=== PATIENT | male | born 1960 | race Caucasian/White ===

== ENCOUNTER 2020-01-11 14:50 | Inpatient (IN) | payer MEDICARE ==
[~2020-01-11] VITALS: Ht 175.3 cm; Wt 64.0 kg
[~2020-01-11 14:50] MED LIST: OXYC-12 PO
[2020-01-11] MEDS ORDERED: MILK OF MAGNESIA 400 MG/5 ML 30 ML UDC PO PRN (15:00)
[2020-01-11] MEDS ORDERED: ANTACID SUSP 30 ML UDC (MYLANTA) PO PRN (15:00)
[2020-01-11] MEDS ORDERED: ONDANSETRON 4 MG/2 ML (SDV) Z0FRAN IV PRN (15:00)
[2020-01-11] MEDS ORDERED: BENZONATATE 100 MG (TESSALON) CAPSULE PO PRN (15:00)
[2020-01-11] MEDS ORDERED: CATHETER FLUSH 10 ML SYR IV PRN (16:00)
[2020-01-11 16:15] VITALS: BP 120/78
[2020-01-11] MEDS: NS IV 1000 ML 1,000 ML IV SCH (16:23)
[2020-01-11] MEDS: AZITHROMYCIN INJECTION 500 MG in NS (IVPB) 250 ML IV SCH (16:24)
[2020-01-11] MEDS: cefTRIAXone FOR IV USE 1,000 MG in WATER (STERILE) FOR INJECTION 10 ML IV SCH (16:24)
[2020-01-11] MEDS: inSUlin ASPART (NovoLOG) 1 UNIT/0.01 ML (CHARGE PER UNIT) SC SCH ×2 (16:54→21:11)
[2020-01-11 19:00] VITALS: BP 106/71
[2020-01-11 20:00] VITALS: BP 108/68
[2020-01-11 21:00] VITALS: BP 112/68
[2020-01-11] MEDS: MELATONIN 3 MG TABLET PO PRN (21:11)
[2020-01-11 22:00] VITALS: BP 107/67
[2020-01-11 23:00] VITALS: BP 108/72
[2020-01-12] VITALS (12 sets, daily range): BP systolic 100–121; BP diastolic 65–80
[2020-01-12] MEDS: ACETAMINOPHEN 325 MG TABLET PO PRN (00:03)
[2020-01-12] MEDS: NS IV 1000 ML 1,000 ML IV SCH ×2 (02:20→10:41)
[2020-01-12 03:14] LABS: BASOPHILS % (AUTO) 0 % (0-10); EOSINOPHILS % (AUTO) 0 % (0-10); HEMATOCRIT 29 % (40-54); HEMOGLOBIN 9.4 G/DL (13.3-17.7); LYMPHOCYTES % (AUTO) 7 % (12-44); MEAN CORPUSCULAR HEMOGLOBIN 31 PG (25-34); MEAN CORPUSCULAR HGB CONC 32 G/DL (32-36); MEAN CORPUSCULAR VOLUME 96 FL (80-99); MEAN PLATELET VOLUME 9.5 FL (7.4-10.4); MONOCYTES # (AUTO) 0.5 X 10^3 (0.0-1.0); MONOCYTES % (AUTO) 4 % (0-12); NEUTROPHILS % (AUTO) 89 % (42-75); PLATELET COUNT 496 10^3/uL (130-400); RED CELL DISTRIBUTION WIDTH 14.9 % (10.0-14.5); WHITE BLOOD COUNT 14.6 10^3/uL (4.3-11.0)
[2020-01-12 03:23] LABS: ALBUMIN 1.6 GM/DL (3.2-4.5); CHLORIDE 106 MMOL/L (98-107); POTASSIUM 3.5 MMOL/L (3.6-5.0); SODIUM 141 MMOL/L (135-145)
[2020-01-12 03:24] LABS: CALCIUM 7.4 MG/DL (8.5-10.1)
[2020-01-12 03:25] LABS: GLUCOSE 91 MG/DL (70-105); TOTAL PROTEIN 5.2 GM/DL (6.4-8.2)
[2020-01-12 03:26] LABS: CARBON DIOXIDE 22 MMOL/L (21-32)
[2020-01-12 03:27] LABS: BILIRUBIN,TOTAL 0.2 MG/DL (0.1-1.0)
[2020-01-12 03:29] LABS: ALKALINE PHOSPHATASE 73 U/L (40-136); CREATININE SERUM 0.46 MG/DL (0.60-1.30); GFR ESTIMATED > 60
[2020-01-12 03:30] LABS: BUN/CREATININE RATIO 46
[2020-01-12 03:32] LABS: ALANINE AMINOTRANSFERASE 17 U/L (0-55)
[2020-01-12 04:01] LABS: BAND NEUTROPHILS 5 %; LYMPHOCYTES % (MANUAL) 9 %; MONOCYTES % (MANUAL) 5 %; NEUTROPHILS % (MANUAL) 78 %; PROMYELOCYTES % 3 %
[2020-01-12 04:02] LABS: BURR CELLS SLIGHT; HYPOCHROMASIA MODERATE; PLATELET CLUMPS OCCASIONAL
[2020-01-12] MEDS: inSUlin ASPART (NovoLOG) 1 UNIT/0.01 ML (CHARGE PER UNIT) SC SCH ×4 (05:01→20:31)
[2020-01-12] MEDS ORDERED: LACTATED RINGERS 1,000 ML IV SCH ×2 (05:15)
[2020-01-12] MEDS ORDERED: ENOXAPARIN 40 MG/0.4 ML (LOVENOX) SYR SC SCH (05:15)
--- NOTE | 2020-01-12 05:21 | Pulmonary Consultation ---
History of Present Illness History of Present Illness Date Seen by Provider: Jan 12, 2020 Time Seen by Provider: 05:20 Date of Admission History of Present Illness 59yo [place] [facility] [place] to [place] distress. He was [place] with [place]NA [place] [facility] [place] CXR since admission here. He was placed on rocephin and azithromycin upon admission. I am consulted for pulmonary/ICU mangement. Allergies and Home Medications Allergies Coded Allergies: No Known Drug Allergies (Verified , 07/11/09) Home Medications Multivitamin 1 Each Tablet, 1 EACH PO DAILY, (Reported) Naproxen Sodium 220 Mg Capsule, 440 MG PO Q8H PRN for PAIN-MILD (1-4), (Reported) Past Ulyscwt-Hvehac-Nsxvjp Hx Patient Social History Alcohol Use: Occasionally Uses Number of Drinks Today: 0 Alcohol Beverage of Choice: Beer Recreational Drug Use: No Smoking Status: Current Everyday Smoker Type Used: Cigarettes Recent Foreign Travel: No Contact w/Someone Who Travel: No Recent Infectious Disease Expo: No Recent Hopitalizations: No Immunizations Up To Date PED Vaccines UTD: Yes Seasonal Allergies Seasonal Allergies: No Past Medical History Surgeries: No Respiratory: No Currently Using CPAP: No Cardiac: No Neurological: Yes Sexually Transmitted Disease: No Genitourinary: No Gastrointestinal: No Musculoskeletal: No Endocrine: No HEENT: No Loss of Vision: Denies Hearing Impairment: Denies Cancer: No Psychosocial: No Integumentary: No Blood Disorders: No Adverse Reaction/Blood Tranf: No Review of Systems Time Seen by Provider: 05:49 Sepsis Event Evaluation Height, Weight, BMI Height: '" Weight: lbs. oz. kg; 16.01 BMI Method: Exam Exam Vital Signs Date Time Temp Pulse Resp B/P (MAP) Pulse Ox O2 Delivery O2 Flow Rate FiO2 01/12/20 04:00 Nasal Cannula 8.00 01/12/20 00:00 Nasal Cannula 8.00 01/11/20 23:00 98 24 108/72 (84) 94 Nasal Cannula 8.00 01/11/20 22:00 105 27 107/67 (80) 92 Nasal Cannula 8.00 01/11/20 21:00 108 28 112/68 (83) 91 Nasal Cannula 8.00 01/11/20 20:00 111 28 108/68 (81) 95 Nasal Cannula 8.00 01/11/20 20:00 Nasal Cannula 8.00 01/11/20 19:00 110 26 106/71 (83) 93 Nasal Cannula 8.00 01/11/20 19:00 110 01/11/20 17:04 111 01/11/20 16:15 105 45 120/78 (92) 88 High Flow N/C 8.00 01/11/20 15:48 36.1 01/11/20 15:48 High Flow N/C 8.00 I & O 01/12/20 07:00 Intake Total 3550 ml Output Total 200 ml Balance 3350 ml Height & Weight Height: '" Weight: lbs. oz. kg; 16.01 BMI Method: General Appearance: Anxious, Mild Distress HEENT: PERRL/EOMI, TMs Normal, Normal ENT Inspection Neck: Full Range of Motion, Non Tender, Supple Respiratory: Chest Non Tender, Crackles, Decreased Breath Sounds Cardiovascular: Regular Rate, Rhythm, No Edema, No Gallop Capillary Refill: Less Than 3 Seconds Gastrointestinal: normal bowel sounds, non tender, soft Extremity: Normal Capillary Refill, Normal Inspection, No Pedal Edema Neurologic/Psychiatric: Alert, Oriented x3 Skin: Normal Color, Warm/Dry Lymphatic: No Adenopathy Results Lab Laboratory Tests 01/12/20 03:05 Assessment/Plan Assessment/Plan PNA -- possible post obstructive pneumonia r/o cancer -Continue abx -Check cultures -Check PCT, ferretin , DDimer -COVID is pending -Check MRSA, and influenza -Check RVP -CXR reviewed - Once COVID is negative check CT of chest to r/o mass. Hypokalemia -replace Dehydration -Give 2 liters of IVF LR anemia -monitor -Start protonix Tobacco use with probable COPD JENI DENISE DO Jan 12, 2020 05:21
--- NOTE | 2020-01-12 06:14 | Diagnostic Imaging Report ---
INDICATION: Respiratory distress COMPARISON: None FINDINGS: Single view of the chest demonstrates hyperinflation compatible with COPD. There is a suspicious opacity in the left upper lobe with concern for a mass. Infiltrates are seen in the right mid lung and right base. There is no pneumothorax. Heart is prominent. Osseous structures are stable. IMPRESSION: 1. Questionable mass left upper lobe. CT recommended. 2. Infiltrates right middle lobe and right base concerning for pneumonia. Follow-up recommended. Dictated by: Dictated on workstation # [id number]
[2020-01-12] MEDS ORDERED: ALPRAZolam 0.5 MG (XANAX) TAB PO PRN (06:15)
[2020-01-12] MEDS: POTASSIUM CL 10MEQ/50ML IVPB 50 ML IV SCH ×5 (07:45→16:16)
[2020-01-12] MEDS: PANTOPRAZOLE 40 MG (PROTONIX) VIAL IV SCH (07:52)
[2020-01-12] MEDS: LACTATED RINGERS 1,000 ML IV SCH ×4 (07:53→23:43)
[2020-01-12] MEDS ORDERED: ALBUTEROL/IPRATROP (COMBIVENT RESPIMAT) 4 GM INHALER IH PRN (09:15)
[2020-01-12 09:29] LABS: FIBRIN DEGRADATION PRODUCTS 2.69 UG/ML (0.00-0.49); INR 1.1 (0.8-1.4); PROTHROMBIN TIME PATIENT 14.3 SEC (12.2-14.7)
[2020-01-12 10:21] LABS: CLARITY,URINE CLEAR; COLOR,URINE YELLOW; GLUCOSE, URINE (UA) NEGATIVE (NEGATIVE); KETONES,URINE 2+ (NEGATIVE); LEUKOCYTE ESTERASE ,URINE NEGATIVE (NEGATIVE); NITRITE,URINE NEGATIVE (NEGATIVE); PROTEIN,URINE TRACE (NEGATIVE)
[2020-01-12 10:35] LABS: BACTERIA,URINE TRACE /HPF
[2020-01-12 10:36] LABS: AMPHETAMINE SCREEN, URINE NEGATIVE (NEGATIVE); BARBITURATE SCREEN URINE NEGATIVE (NEGATIVE); BENZODIAZEPINES SCREEN URINE NEGATIVE (NEGATIVE); CANNABINOID SCREEN, URINE NEGATIVE (NEGATIVE); COCAINE SCREEN URINE NEGATIVE (NEGATIVE); METHADONE STAT NEGATIVE (NEGATIVE); METHAMPHETAMINE SCREEN URINE S NEGATIVE (NEGATIVE); OPIATE SCREEN URINE NEGATIVE (NEGATIVE); OXYCODONE STAT NEGATIVE (NEGATIVE); PROPOXYPHENE STAT NEGATIVE (NEGATIVE); TRICYCLIC ANTIDEPRESSANTS SCRE NEGATIVE (NEGATIVE)
--- NOTE | 2020-01-12 11:20 | NUR ---
Pastoral care visit.
[2020-01-12] MEDS ORDERED: MULT-1136 PO (13:28)
[2020-01-12] MEDS ORDERED: NAPR220C11 PO (13:28)
--- NOTE | 2020-01-12 13:29 | NUR ---
SPOKE WITH THE PT TO COMPLETE THE MED REC PT DENIES TAKING ANY PRESCRIPTION MEDICATIONS I DID UPDATE HIS PREFERRED PHARMACY OTC MEDS: [facility]
[2020-01-12] MEDS ORDERED: HOLD METFORMIN - RECEIVED CONTRAST 20 ML VIAL IV SCH (14:15)
[2020-01-12] MEDS ORDERED: NS 100 ML (IVPB) BAG IV ONE (14:15)
[2020-01-12] MEDS ORDERED: IOHEXOL 350 MG/ML 100 ML (OMNIPAQUE 350) VIAL IV ONE (14:15)
[2020-01-12] MEDS: morphine INJ 4 MG/ML 1 ML (VIAL/SYRINGE) IVP PRN ×2 (14:55→20:36)
[2020-01-12] MEDS: cefTRIAXone FOR IV USE 1,000 MG in WATER (STERILE) FOR INJECTION 10 ML IV SCH (14:57)
[2020-01-12] MEDS: AZITHROMYCIN INJECTION 500 MG in NS (IVPB) 250 ML IV SCH (14:57)
--- NOTE | 2020-01-12 15:09 | NUR ---
PT DOES NOT WANT TO GO TO CT TODAY, REPORTS HE IS "TOO TIRED". THIS RN INFORMED HIM HE WOULD BE TRANSPORTED TO CT ON HIS BED, HOWEVER HE STILL DID NOT WANT TEST DONE, STATES "MAYBE TOMORROW." PHYSICAL THERAPY CAME INTO ROOM DURING THIS TIME, PT ALSO TOLD P.T. HE WAS "TOO TIRED" TO PARTAKE IN THERAPY TODAY. DR DUONG AND DR DENISE BOTH INFORMED. THIS RN OFFERED TO CLEAN PT UP AND REPOSITION HIM, PT DECLINED OFFER STATING HE "JUST WANTS TO RELAX RIGHT NOW." PT ADVISED TO LET STAFF KNOW WHEN HE WANTS REPOSITIONED OR NEEDS ANYTHING. WILL REASSESS PT NEEDS FREQUENTLY.
--- NOTE | 2020-01-12 15:12 | Physical Therapy Progress Note ---
Therapy Progress Note Orders received for therapy. Pt. in bed and adamantly refuses stating "I'm sore all over, I'm not doing anything." We will check patient status 01/13/20. IBAN HAIDER PT Jan 12, 2020 15:12
--- NOTE | 2020-01-12 15:19 | NUR ---
Received dietary consult for MST score. Note pt is under suspicion of COVID-19. Will monitor intake and attempt to reassess on 01/13. Doug Nunez MS, RD, LD [phone]
--- NOTE | 2020-01-12 16:00 | NUR ---
THIS RN SPOKE W/ DR DENISE, NEW ORDERS RECEIVED TO TRANSFER TO 4TH FLOOR IF OK W/ DR DUONG.
[2020-01-12 16:16] LABS: BILIRUBIN,URINE 1+ (NEGATIVE)
--- NOTE | 2020-01-12 16:21 | NUR ---
OK FOR PT TO TRANSFER TO [address] PER DR DUONG.
--- NOTE | 2020-01-12 18:02 | History & Physical-Hospitalist ---
History of Present Illness HPI/Chief Complaint Moshe Soto is a 59-year-old male with past medical history of tobacco abuse who presented with fever and shortness of breath. He also reports having a cough. He denies any chest pain. He denies any nausea, vomiting, or abdominal pain. He denies any diarrhea. He denies any dysuria. He has no other complaints or concerns. He denies any recent travel. He denies any sick contacts. Source: patient Exam Limitations: no limitations Date Seen 01/12/20 Time Seen by a Provider: 11:20 Attending Physician Lucy Pal MD PCP No,Local Physician Referring Physician Date of Admission Jan 11, 2020 at 15:52 Home Medications & Allergies Home Medications Reviewed patient Home Medication Reconciliation performed by pharmacy medication reconciliations field service poultry technician and/or nursing. Patients Allergies have been reviewed. Allergies Allergies Coded Allergies No Known Drug Allergies (Hgyelfzg23/25/09) Past Ljxgcyr-Nywzxb-Wnveun Hx Past Med/Social Hx: Reviewed Nursing Past Med/Soc Hx Patient Social History Alcohol Use: Occasionally Uses Number of Drinks Today: 0 Alcohol Beverage of Choice: Beer Recreational Drug Use: No Smoking Status: Current Everyday Smoker Type Used: Cigarettes Physical Abuse Screen: No Sexual Abuse: No Recent Foreign Travel: No Contact w/other who traveled: No Recent Hopitalizations: No Recent Infectious Disease Expo: No Immunizations Up To Date Pediatric: Yes Seasonal Allergies Seasonal Allergies: No Past Medical History Currently Using CPAP: No Sexually Transmitted Disease: No Loss of Vision: Denies Hearing Impairment: Denies History of Blood Disorders: No Adverse Reaction to Blood Morrell: No Review of Systems Constitutional: fever, malaise EENTM: no symptoms reported Respiratory: cough, short of breath Cardiovascular: no symptoms reported Gastrointestinal: no symptoms reported Genitourinary: no symptoms reported Musculoskeletal: no symptoms reported Skin: no symptoms reported Psychiatric/Neurological: No Symptoms Reported Physical Exam Physical Exam Vital Signs Vital Signs - First Documented 01/11/20 01/11/20 15:48 16:15 Temp 36.1 Pulse 105 Resp 45 B/P (MAP) 120/78 (92) Pulse Ox 88 O2 Delivery High Flow N/C O2 Flow Rate 8.00 Capillary Refill : Less Than 3 Seconds Height, Weight, BMI Height: '" Weight: lbs. oz. kg; 16.01 BMI Method: General Appearance: No Apparent Distress, Cachetic HEENT: PERRL/EOMI, Pharynx Normal Neck: Normal Inspection, Supple Respiratory: Crackles, Decreased Breath Sounds, Respiratory Distress (tachypnea) Cardiovascular: No Murmur, Tachycardia (regular rhythm) Gastrointestinal: Normal Bowel Sounds, Non Tender, Soft Extremity: Normal Inspection, Non Tender, No Pedal Edema Neurologic/Psychiatric: Alert, Oriented x3, No Motor/Sensory Deficits, Normal Mood/Affect Skin: Normal Color, Warm/Dry Results Results/Procedures Labs Laboratory Tests 01/12/20 03:05 Patient resulted labs reviewed. Imaging: Reviewed Imaging Report Assessment/Plan Admission Diagnosis severe sepsis due to pneumonia Admission Status: Inpatient Order (span 2 midnights) Reason for Inpatient Admission: severe sepsis due to pneumonia Assessment and Plan Severe sepsis Pneumonia Acute respiratory failure with hypoxia possible left upper lobe mass likely COPD Tobacco abuse transferred from [facility] Chest x-ray with right middle and lower lobe pneumonia, possible left upper lobe mass Procalcitonin elevated at 1.36 WBC elevated at 14.6 afebrile since arrival Blood cultures drawn, no growth COVID testing negative started on ceftriaxone and azithromycin CT chest to evaluate possible left upper lobe mass Pulmonology consulted, appreciate assistance MAT protocol Nicotine patch ordered DVT prophylaxis: Lovenox Diagnosis/Problems Diagnosis/Problems (1) Severe sepsis Status: Acute (2) Pneumonia Status: Acute (3) COPD (chronic obstructive pulmonary disease) Status: Chronic (4) Tobacco abuse Status: Chronic (5) Acute respiratory failure with hypoxia Status: Acute (6) Lung mass Status: Acute Clinical Quality Measures DVT/VTE Risk/Contraindication: Risk Factor Score Per Nursin RFS Level Per Nursing on Admit: 4+=Very High CLAU DUONG MD Jan 12, 2020 18:02
--- NOTE | 2020-01-12 18:13 | NUR ---
PT TRANSFERRED TO ROOM 421 VIA BED W/ STAFF/PERSONAL BELONGINGS. REPORT GIVEN TO YUMIKO MADRIGAL, NO QUESTIONS/CONCERNS VOICED.
--- NOTE | 2020-01-12 18:20 | NUR ---
This RN took over Pt care at this time. Pt alert and orientated. verbalizes the want to eat his dinner. On Pt assessment Pt was covered in feces. Pt stated he wasn't able to tell when he has bowel movements. PT cleaned and brief placed for incontinence. bubbler also added to O2. no other needs at this time
[2020-01-12] MEDS: MELATONIN 3 MG TABLET PO SCH (20:35)
[2020-01-13] VITALS (23 sets, daily range): BP systolic 71–160; BP diastolic 48–108
[2020-01-13] MEDS: morphine INJ 4 MG/ML 1 ML (VIAL/SYRINGE) IVP PRN ×4 (01:41→19:44)
[2020-01-13] MEDS: RT-ALBUTEROL HFA (PROAIR HFA) 8.5 GM IH SCH ×4 (01:42→21:41)
[2020-01-13 05:37] LABS: BASOPHILS % (AUTO) 0 % (0-10); EOSINOPHILS % (AUTO) 0 % (0-10); HEMATOCRIT 29 % (40-54); LYMPHOCYTES # (AUTO) 1.1 X 10^3 (1.0-4.0); LYMPHOCYTES % (AUTO) 8 % (12-44); MEAN CORPUSCULAR HEMOGLOBIN 30 PG (25-34); MEAN CORPUSCULAR HGB CONC 31 G/DL (32-36); MEAN CORPUSCULAR VOLUME 96 FL (80-99); MEAN PLATELET VOLUME 9.6 FL (7.4-10.4); MONOCYTES # (AUTO) 0.8 X 10^3 (0.0-1.0); MONOCYTES % (AUTO) 6 % (0-12); NEUTROPHILS # (AUTO) 11.9 X 10^3 (1.8-7.8); NEUTROPHILS % (AUTO) 86 % (42-75); PLATELET COUNT 443 10^3/uL (130-400); RED CELL DISTRIBUTION WIDTH 14.8 % (10.0-14.5); WHITE BLOOD COUNT 13.8 10^3/uL (4.3-11.0)
[2020-01-13 05:42] LABS: ALBUMIN 1.5 GM/DL (3.2-4.5); CHLORIDE 102 MMOL/L (98-107); POTASSIUM 3.3 MMOL/L (3.6-5.0); SODIUM 137 MMOL/L (135-145)
[2020-01-13 05:44] LABS: CALCIUM 7.6 MG/DL (8.5-10.1)
[2020-01-13 05:45] LABS: GLUCOSE 100 MG/DL (70-105)
[2020-01-13 05:46] LABS: BILIRUBIN,TOTAL 0.1 MG/DL (0.1-1.0); CARBON DIOXIDE 28 MMOL/L (21-32)
[2020-01-13 05:48] LABS: ALKALINE PHOSPHATASE 68 U/L (40-136); CREATININE SERUM 0.42 MG/DL (0.60-1.30); GFR ESTIMATED > 60
[2020-01-13 05:49] LABS: BUN/CREATININE RATIO 21
[2020-01-13 05:51] LABS: ALANINE AMINOTRANSFERASE 15 U/L (0-55)
[2020-01-13] MEDS ORDERED: RT-ALBUTEROL HFA (PROAIR HFA) 8.5 GM IH PRN ×2 (06:00→20:00)
[2020-01-13] MEDS: inSUlin ASPART (NovoLOG) 1 UNIT/0.01 ML (CHARGE PER UNIT) SC SCH ×4 (06:09→20:49)
[2020-01-13] MEDS: POTASSIUM CL 10MEQ/50ML IVPB 50 ML IV SCH ×2 (06:22→08:35)
--- NOTE | 2020-01-13 07:10 | NUR ---
Dr. Oliveira notified by phone of patient c/o of pain to right foot.
[2020-01-13 08:31] LABS: MAGNESIUM 1.6 MG/DL (1.6-2.4)
[2020-01-13] MEDS: NICOTINE 14 MG (NICODERM) PATCH TD SCH (08:34)
[2020-01-13] MEDS: LACTATED RINGERS 1,000 ML IV SCH ×3 (08:35→20:54)
[2020-01-13] MEDS ORDERED: ENOXAPARIN 30 MG/0.3 ML (LOVENOX) SYR SC SCH (09:00)
--- NOTE | 2020-01-13 09:00 | NUR ---
Dr. Oliveira and Dr. Watson at patient bedside to examine lower right extremity. Patient given morphine 1mg for pain and 1000mL of NS bag hung and ran wide open per Dr. Watson orders.
[2020-01-13] MEDS ORDERED: LIDOCAINE 1% INJ 20 ML 20 ML VIAL ONE ×2 (09:03→13:49)
[2020-01-13] MEDS ORDERED: NS IV 1000 ML 0 ML ONE (09:03)
[2020-01-13] MEDS ORDERED: HEParin (CATH LAB) 2,000 ML IV ONE (09:03)
[2020-01-13] MEDS ORDERED: NS IV 1000 ML 1,000 ML ONE (09:06)
[2020-01-13] MEDS ORDERED: NS IV 1000 ML 1,000 ML IV ONE (09:15)
[2020-01-13] MEDS ORDERED: fentaNYL INJECTION 100 MCG/2 ML AMP ONE (09:17)
[2020-01-13] MEDS ORDERED: MIDAZOLAM 5 MG/5 ML (VERSED) VIAL ONE (09:17)
[2020-01-13] MEDS: NICOTINE PATCH REMOVAL TP SCH (09:19)
--- NOTE | 2020-01-13 09:20 | Consultation-Cardiology ---
HPI-Cardiology Cardiology Consultation Date of Consultation 01/13/20 Date of Admission Time Seen by Provider: 09:13 Indication: acute limb ischemia HPI 59 years old gentleman with history of head trauma about 2 years ago, had bleeding and has been on disability, active smoker, stopped smoking about 3 weeks ago. Has been having some dyspnea on exertion and had chest pain describ ed it as dull achiness, difficulty breathing. Fell to the floor yesterday and called 911 with generalized weakness, transferred to our facility with a diagnosis of pneumonia. Around 5 a.m. developed sudden onset pain in his right leg, the leg is cold and absent pulse. Reporting that his chest pain is better. Still severely short of breath on Vapotherm Home Medications & Allergies Allergies: Coded Allergies: No Known Drug Allergies (Verified , 07/11/09) Home Medication List Reviewed: Yes ZQJ-Lepmsq-Irjuim Hx Patient Social History Employed/Student: unemployed Alcohol Use: Occasionally Uses Recreational Drug Use: No Smoking Status: Current Everyday Smoker Type Used: Cigarettes Recent Foreign Travel: No Recent Infectious Disease Expo: No Recent Hopitalizations: No Physical Abuse Screen: No Sexual Abuse: No Past Medical History Discussed below Family Medical History Family Medical Hx non contributory Review of Systems-General Review of Systems Constitutional: see HPI, fever, malaise EENTM: see HPI, no symptoms reported Respiratory: see HPI, cough, dyspnea on exertion, orthopnea, short of breath Cardiovascular: see HPI, chest pain, vascular heart diseas Gastrointestinal: no symptoms reported, see HPI Genitourinary: no symptoms reported, see HPI Musculoskeletal: no symptoms reported, back pain, joint pain, muscle pain Skin: see HPI, other (mottled skin, absent pulse in the right foot painful right leg, cold) Psychiatric/Neurological: See HPI Reviewed Test Results Reviewed Test Results Lab Laboratory Tests Test 01/12/20 09:50 01/12/20 10:12 01/12/20 16:26 01/12/20 20:26 Range/Units Urine Color YELLOW Urine Clarity CLEAR Urine pH 6.0 5-9 Urine Specific [place] 1.025 H 1.016-1.022 Urine Protein TRACE H NEGATIVE Urine Glucose (UA) NEGATIVE NEGATIVE Urine Ketones 2+ H NEGATIVE Urine Nitrite NEGATIVE NEGATIVE Urine Bilirubin 1+ H NEGATIVE Urine Urobilinogen 0.2 < = 1.0 MG/DL Urine Leukocyte Esterase NEGATIVE NEGATIVE Urine RBC (Auto) NEGATIVE NEGATIVE Urine RBC NONE /HPF Urine WBC NONE /HPF Urine Squamous Epithelial Cells NONE /HPF Urine Crystals NONE /LPF Urine Bacteria TRACE /HPF Urine Casts PRESENT /LPF Urine Hyaline Casts 5-10 H /LPF Urine Mucus NEGATIVE /LPF Urine Culture Indicated NO Urine Opiates Screen NEGATIVE NEGATIVE Urine Oxycodone Screen NEGATIVE NEGATIVE Urine Methadone Screen NEGATIVE NEGATIVE Urine Propoxyphene Screen NEGATIVE NEGATIVE Urine Barbiturates Screen NEGATIVE NEGATIVE Ur Tricyclic Antidepressants Screen NEGATIVE NEGATIVE Urine Phencyclidine Screen NEGATIVE NEGATIVE Urine Amphetamines Screen NEGATIVE NEGATIVE Urine Methamphetamines Screen NEGATIVE NEGATIVE Urine Benzodiazepines Screen NEGATIVE NEGATIVE Urine Cocaine Screen NEGATIVE NEGATIVE Urine Cannabinoids Screen NEGATIVE NEGATIVE Glucometer 101 95 115 H 70-110 MG/DL Test 01/13/20 05:00 01/13/20 05:10 01/13/20 05:46 Range/Units White Blood Count 13.8 H 4.3-11.0 10^3/uL Red Blood Count 3.00 L 4.35-5.85 10^6/uL Hemoglobin 9.0 L 13.3-17.7 G/DL Hematocrit 29 L 40-54 % Mean Corpuscular Volume 96 80-99 FL Mean Corpuscular Hemoglobin 30 25-34 PG Mean Corpuscular Hemoglobin Concent 31 L 32-36 G/DL Red Cell Distribution Width 14.8 H 10.0-14.5 % Platelet Count 443 H 130-400 10^3/uL Mean Platelet Volume 9.6 7.4-10.4 FL Neutrophils (%) (Auto) 86 H 42-75 % Lymphocytes (%) (Auto) 8 L 12-44 % Monocytes (%) (Auto) 6 0-12 % Eosinophils (%) (Auto) 0 0-10 % Basophils (%) (Auto) 0 0-10 % Neutrophils # (Auto) 11.9 H 1.8-7.8 X 10^3 Lymphocytes # (Auto) 1.1 1.0-4.0 X 10^3 Monocytes # (Auto) 0.8 0.0-1.0 X 10^3 Eosinophils # (Auto) 0.0 0.0-0.3 10^3/uL Basophils # (Auto) 0.0 0.0-0.1 10^3/uL Sodium Level 137 135-145 MMOL/L Potassium Level 3.3 L 3.6-5.0 MMOL/L Chloride Level 102 98-107 MMOL/L Carbon Dioxide Level 28 21-32 MMOL/L Anion Gap 7 5-14 MMOL/L Blood Urea Nitrogen 9 7-18 MG/DL Creatinine 0.42 L 0.60-1.30 MG/DL Estimat Glomerular Filtration Rate > 60 BUN/Creatinine Ratio 21 Glucose Level 100 70-105 MG/DL Calcium Level 7.6 L 8.5-10.1 MG/DL Corrected Calcium 9.6 8.5-10.1 MG/DL Magnesium Level 1.6 1.6-2.4 MG/DL Total Bilirubin 0.1 0.1-1.0 MG/DL Aspartate Amino Transf (AST/SGOT) 33 5-34 U/L Alanine Aminotransferase (ALT/SGPT) 15 0-55 U/L Alkaline Phosphatase 68 40-136 U/L Total Protein 5.0 L 6.4-8.2 GM/DL Albumin 1.5 L 3.2-4.5 GM/DL Procalcitonin 0.74 H <0.10 NG/ML Glucometer 104 70-110 MG/DL Physical Exam Physical Exam Vital Signs Vital Signs - First Documented 01/11/20 01/11/20 01/13/20 15:48 16:15 07:28 Temp 36.1 Pulse 105 Resp 45 B/P (MAP) 120/78 (92) Pulse Ox 88 O2 Delivery High Flow N/C O2 Flow Rate 8.00 FiO2 60 Capillary Refill : Less Than 3 SecondsLess Than 3 Seconds Height, Weight, BMI Height: '" Weight: lbs. oz. kg; 16.01 BMI Method: General Appearance: Anxious, Severe Distress HEENT: PERRL/EOMI, TMs Normal, Normal ENT Inspection Neck: Full Range of Motion, Non Tender, Supple Respiratory: Chest Non Tender, Crackles, Decreased Breath Sounds Cardiovascular: No Edema, No Gallop, Tachycardia Gastrointestinal: Normal Bowel Sounds, Non Tender, Soft Extremity: Other (right foot is cold, mottled skin, absent pulse) Neurologic/Psychiatric: Alert, Oriented x3 Skin: Normal Color, Warm/Dry Lymphatic: No Adenopathy A/P-Cardiology Admission Diagnosis Acute limb ischemia Chest pain Acute respiratory failure Hypokalemia Assessment/Plan Acute limb ischemia, possible embolization or progression of underlying peripheral arterial disease, having active pain with absent pulse, I will proceed with emergency peripheral angiogram, possible intervention Chest pain, resembling angina, no previous cardiac history, will evaluate cardiac enzymes, monitor EKG and evaluate echo Acute respiratory failure, pneumonia and lung mass, consult Dr. Eugene, may require intubation, currently on Vapotherm. Left upper lobe mass, high suspicion of malignancy, consult Dr. Eugene Hypokalemia, being replaced. Continue to monitor History of head trauma about 2 years ago, was in coma for about a month. Has been on disability. Cannot tolerate thrombolytics Tobaccoism, stopped smoking 3 weeks ago, encouraged to continue with smoking cessation Anemia, monitor H&H Clinical Quality Measures DVT/VTE Risk/Contraindication: Risk Factor Score Per Nursin RFS Level Per Nursing on Admit: 4+=Very High THERESA BELLAMY MD Jan 13, 2020 09:19
--- NOTE | 2020-01-13 09:21 | Cardiac Procedure Note-CS/ASA ---
Pre-Procedure Note Pre-Op Procedure Note H&P Reviewed The H&P was reviewed, patient examined and no changes noted. Date H&P Reviewed: Jan 13, 2020 Time H&P Reviewed: 09:20 Conscious Sedation Pre-Proced Time 09:20 ASA Score 3 For ASA 3 and 4: Consider anesthesia and medical clearance. Also, for patients with a history of failed moderate sedation consider anesthesia. Airway Lungs Heart ASA score ASA 1: a normal healthy patient ASA 2: a patient with a mild systemic disease (mid diabetes, controlled hypertension, obesity ASA 3: a patient with a severe systemic disease that limits activity (angina, COPD, prior Myocardial infarction) x ASA 4: a patient with an incapacitating disease that is a constant threat to life (CHF, renal failure) ASA 5: a moribund patient not expected to survive 24 hrs. (ruptured aneurysm) ASA 6: a declared brain- patient whose organs are being harvested. For emergent operations, add the letter E after the classification Mallampati Classification Grade 3 Sedation Plan Analgesia, Amnesia, Plan communicated to team members, Discussed options with patient/fam, Discussed risks with patient/fam The patient is an appropriate candidate to undergo the planned procedure, sedation, and anesthesia. The patient immediately re-assessed prior to indication. THERESA BELLAMY MD Jan 13, 2020 9:21 am
[2020-01-13] MEDS: PANTOPRAZOLE 40 MG (PROTONIX) VIAL IV SCH (09:23)
--- NOTE | 2020-01-13 09:30 | NUR ---
Patient transported to surgery by tag and label cutter team at this time. Attempted to contact emergency contact on file, left a message.
[2020-01-13] MEDS ORDERED: HEParin 1000 UNIT/ML (10ML VIAL) FOR BOLUS ONE (10:14)
[2020-01-13] MEDS ORDERED: TENECTEPLASE 5 MG in SYRINGE-IVPB 0 SYRINGE, WATER (STERILE) FOR INJECTION 4 ML IV ONE ×3 (10:30)
[2020-01-13] MEDS ORDERED: TENECTEPLASE 5 MG in NS IV 500 ML 500 ML IV SCH (10:30)
--- NOTE | 2020-01-13 10:30 | Physical Therapy Progress Note ---
Therapy Progress Note Patient having heart cath on this date. PT to initiate treatment in IDRIS Jose PT Jan 13, 2020 10:30
[2020-01-13] MEDS ORDERED: NS (IVPB) 250 ML ONE (10:54)
[2020-01-13] MEDS ORDERED: niCARdipine 25 MG/10 ML (CARDENE) AMP IV ONE (10:54)
[2020-01-13] MEDS ORDERED: HEParin DRIP 25000 UNIT/500ML 500 ML IV ONE (11:02)
[2020-01-13] MEDS ORDERED: ASPIRIN 81 MG CHEW (CHILDREN'S ASA) ONE (11:10)
[2020-01-13] MEDS ORDERED: CLOPIDOGREL 300 MG (PLAVIX) TABLET PO ONE (11:10)
[2020-01-13] MEDS ORDERED: dilTIAZem DRIP PRE-MIX 125 ML IV ONE (13:28)
--- NOTE | 2020-01-13 13:41 | Peripheral Report ---
Peripheral Report Physician (s)/Business Systems Technician (s) Physician THERESA BELLAMY MD Pre-Procedure Diagnosis Pre-Procedure Diagnosis: acute limb ischemia Post-Procedure Note Procedure Start Date: Jan 13, 2020 Name of Procedure: Abdominal aortogram Bilateral lower extremities runoff Thrombolytic injection selective in the right lower extremity ORDER RUNNER to the right common femoral, proximal SFA, distal SFA and popliteal arteries Additional imaging Second-order Findings/Procedure Note PROCEDURE NOTE: 59 years old gentleman admitted with pneumonia, had sudden onset of severe pain in his right leg with cold extremity, acute limb ischemia. Decided to proceed with peripheral angiogram After explaining the procedure to the patient, all pros and cons were explained, all questions were answered. The patient signed the consent and then he was placed on the cardiac catheterization laboratory. The patient was placed on the cardiac catheterization laboratory. Groin was prepped SL fashion local anesthesia was used. Sheath placed in the left femoral artery, REM catheter was advanced to the abdominal aorta and abdominal aortogram was done and evaluated the bifurcation and then I did runoff at multiple levels to the right lower extremity, stork wire was advanced distally then 6 Setswana 45 cm sheath was placed and angiogram was done showed thrombus in the proximal right SFA and total occlusion of the distal SFA. Patient was given a bolus of 4000 heparin and thrombolytic with TNK 5 mg given then started on heparin drip repeat angiogram showed establishment of some lumen with heavy thrombus. I proceeded with balloon angioplasty using emerge 5 x 100 then 6 x 100 with good results, still have heavy thrombus burden in the distal arteries, I kept him on heparin drip and left the sheath in place and planning to bring him back Patient was brought back at 2 p.m., repeat injection through the sheath showed establishment of flow, still having slightly slow flow but improvement of the thrombus. Sheath was exchanged into short 6 Setswana sheath and sutured in place FINDINGS: Abdominal aortogram showed normal bifurcation, no dissection or aneurysm, mild hypertensive changes normal inferior mesenteric artery Right leg runoff, total occlusion at the distal SFA, thrombus in the proximal SFA, successful TNK 5 mg injection then balloon angioplasty to the proximal SFA, distal SFA and popliteal artery with reestablishment of the flow, patient was brought back after 3 hours reevaluation of the artery showed excellent improvement and resolution of the thrombus burden CONCLUSIONS: 1. Total occlusion of the right SFA with a thrombus, probably embolization, received TNK then balloon angioplasty and maintained on heparin drip repeat angiogram 2 hours later showed improvement, patient was loaded with aspirin and Plavix 2. Meanwhile while patient in ICU he developed atrial fibrillation with rapid ventricular response and started on Cardizem drip which explain the embolization DISCUSSION AND RECOMMENDATIONS: Patient was started on Plavix and Xarelto for now then he will continue on Xarelto only in addition to rate controlling agents Anesthesia Type: Conscious Sedation Estimated blood loss (mL): 30 ml Contrast Amount: 80 ml Total Radiation Dose: 54 mGy Post-Procedure Diagnosis Post-operative diagnosis: Acute limb ischemia Acute atrial fibrillation Pneumonia Lung mass THERESA BELLAMY MD Jan 13, 2020 1:41 pm
[2020-01-13] MEDS: dilTIAZem DRIP PRE-MIX 125 ML IV SCH (13:43)
[2020-01-13] MEDS ORDERED: HEParin (CATH LAB) 1,000 ML IV ONE ×2 (13:49→14:25)
--- NOTE | 2020-01-13 13:56 | Physical Therapy Progress Note ---
Therapy Progress Note PT consulted with Dr. Watson and PT is not to begin treatment x 2 days due to extensive blood clots of lower extremity. IDRIS ONEIL PT Jan 13, 2020 13:56
[2020-01-13] MEDS ORDERED: PATIENT MAY USE OWN MEDS, ALL PO SCH (14:45)
--- NOTE | 2020-01-13 15:08 | Progress Note - Hospitalist ---
Subjective HPI/CC On Admission Date Seen by Provider: Jan 13, 2020 Time Seen by Provider: 08:45 Moshe Soto is a 59-year-old male with past medical history of tobacco abuse who presented with fever and shortness of breath. He also reports having a cough. He denies any chest pain. He denies any nausea, vomiting, or abdominal pain. He denies any diarrhea. He denies any dysuria. He has no other complaints or concerns. He denies any recent travel. He denies any sick contacts. Subjective/Events-last exam He reports extreme right lower extremity pain. He says was started at 5 a.m. He denies any trauma to his leg. He also reports shortness of breath. He is not having any fevers. He denies any chest pain. He is not having any abdominal pain, nausea, or vomiting. He has no other complaints or concerns. Focused Exam Lactate Level 01/11/20 18:05: Lactic Acid Level 1.59 01/12/20 08:01: Lactic Acid Level 0.84 Objective Exam Vital Signs Vital Signs Date Time Temp Pulse Resp B/P (MAP) Pulse Ox O2 Delivery O2 Flow Rate FiO2 01/13/20 14:00 176 23 95/72 (80) 91 Vapotherm 30.00 60.00 01/13/20 12:00 37.4 01/13/20 07:28 60 Capillary Refill : Less Than 3 SecondsLess Than 3 Seconds General Appearance: Anxious, Cachetic, Moderate Distress Neck: Normal Inspection, Supple Respiratory: Decreased Breath Sounds, Respiratory Distress (tachypnea) Cardiovascular: No Murmur, Tachycardia (regular rate) Gastrointestinal: Normal Bowel Sounds, Non Tender, Soft Extremity: Other (right foot cold, pulseless, blue discoloration of toes) Neurologic/Psychiatric: Alert, Oriented x3 Skin: Normal Color, Warm/Dry Results/Procedures Lab Laboratory Tests 01/13/20 05:00 01/13/20 05:10 Patient resulted labs reviewed. Imaging: Reviewed Imaging Report Assessment/Plan Assessment and Plan Assess & Plan/Chief Complaint Acute occlusion of artery of right lower extremity Symptoms consistent with acute arterial occlusion Dr. Watson notified by phone and consult placed for Cardiology Planning for emergent angiogram this morning Severe sepsis Pneumonia Acute respiratory failure with hypoxia possible left upper lobe mass likely COPD Tobacco abuse transferred from [facility] Chest x-ray with right middle and lower lobe pneumonia, possible left upper lobe mass Procalcitonin trending down, 0.74 WBC slightly improved 13.8 afebrile since arrival Blood cultures drawn, no growth COVID testing negative started on Vapotherm this morning continue ceftriaxone and azithromycin Needs CT chest to evaluate possible left upper lobe mass Pulmonology consulted, appreciate assistance MAT protocol Nicotine patch DVT prophylaxis: Lovenox Diagnosis/Problems Diagnosis/Problems (1) Acute occlusion of artery of lower extremity due to thromboembolism Status: Acute (2) Severe sepsis Status: Acute (3) Pneumonia Status: Acute (4) COPD (chronic obstructive pulmonary disease) Status: Chronic (5) Tobacco abuse Status: Chronic (6) Acute respiratory failure with hypoxia Status: Acute (7) Lung mass Status: Acute Clinical Quality Measures DVT/VTE Risk/Contraindication: Risk Factor Score Per Nursin RFS Level Per Nursing on Admit: 4+=Very High CLAU DUONG MD Jan 13, 2020 15:08
[2020-01-13] MEDS ORDERED: ALBUMIN 25% 25 GM/100 ML 100 ML IV ONE ×3 (15:24→16:30)
[2020-01-13] MEDS ORDERED: DIGOXIN 0.25 MG/ML (LANOXIN) 2 ML AMP ONE (15:24)
[2020-01-13] MEDS ORDERED: SODIUM BICARB 8.4% 50 MEQ/50 ML VIAL ONE (15:24)
[2020-01-13] MEDS ORDERED: PHENYLEPHRINE INJECTION 10 MG in NS (IVPB) 250 ML IV SCH (15:30)
[2020-01-13] MEDS ORDERED: DIGOXIN 0.25 MG/ML (LANOXIN) 2 ML AMP IV ONE ×2 (15:30→21:30)
[2020-01-13] MEDS ORDERED: SODIUM BICARB 8.4% 50 MEQ/50 ML VIAL IV ONE (15:30)
[2020-01-13 15:38] LABS: ABG BASE EXCESS 5.2 MMOL/L (-2.5-2.5); ABG OXYGEN SATURATION 91 % (94-100); ABG PCO2 41 MMHG (35-45); ABG PH 7.46 (7.37-7.43); ABG PO2 61 MMHG (79-93); ABG TCO2 30.2 MMOL/L (21.0-31.0)
[2020-01-13 15:42] LABS: ALLENS TEST YES-POS; INSPIRED O2 60%; PATIENT TEMP 37.1; VENTILATOR NO
[2020-01-13 15:55] LABS: BASOPHILS % (AUTO) 0 % (0-10); EOSINOPHILS % (AUTO) 0 % (0-10); HEMATOCRIT 25 % (40-54); LYMPHOCYTES # (AUTO) 1.3 X 10^3 (1.0-4.0); LYMPHOCYTES % (AUTO) 11 % (12-44); MEAN CORPUSCULAR HEMOGLOBIN 31 PG (25-34); MEAN CORPUSCULAR HGB CONC 32 G/DL (32-36); MEAN CORPUSCULAR VOLUME 96 FL (80-99); MEAN PLATELET VOLUME 9.4 FL (7.4-10.4); MONOCYTES # (AUTO) 0.7 X 10^3 (0.0-1.0); MONOCYTES % (AUTO) 5 % (0-12); NEUTROPHILS # (AUTO) 10.4 X 10^3 (1.8-7.8); NEUTROPHILS % (AUTO) 84 % (42-75); PLATELET COUNT 310 10^3/uL (130-400); RED CELL DISTRIBUTION WIDTH 14.6 % (10.0-14.5); WHITE BLOOD COUNT 12.4 10^3/uL (4.3-11.0)
[2020-01-13] MEDS: NS IV 1000 ML 1,000 ML IV SCH ×2 (15:59→23:25)
[2020-01-13 16:10] LABS: BUN/CREATININE RATIO 19; CALCIUM 6.9 MG/DL (8.5-10.1); CARBON DIOXIDE 30 MMOL/L (21-32); CHLORIDE 102 MMOL/L (98-107); CREATININE SERUM 0.42 MG/DL (0.60-1.30); GFR ESTIMATED > 60; GLUCOSE 101 MG/DL (70-105); MAGNESIUM 1.6 MG/DL (1.6-2.4); POTASSIUM 3.3 MMOL/L (3.6-5.0); SODIUM 138 MMOL/L (135-145)
[2020-01-13] MEDS ORDERED: cefTRIAXone 1,000 MG IV (ROCEPHIN) VIAL ONE (16:39)
[2020-01-13] MEDS ORDERED: WATER (STERILE) FOR INJECTION 10 ML ONE (16:40)
[2020-01-13] MEDS ORDERED: IOHEXOL 350 MG/ML 100 ML (OMNIPAQUE 350) VIAL IV ONE (16:45)
[2020-01-13] MEDS ORDERED: HOLD METFORMIN - RECEIVED CONTRAST 20 ML VIAL IV SCH (16:45)
[2020-01-13] MEDS ORDERED: NS 100 ML (IVPB) BAG IV ONE (16:45)
[2020-01-13] MEDS: cefTRIAXone FOR IV USE 1,000 MG in WATER (STERILE) FOR INJECTION 10 ML IV SCH (17:05)
--- NOTE | 2020-01-13 17:05 | Diagnostic Imaging Report ---
INDICATION: Hypoxia. TIME EXAM: 4:57 PM CORRELATION is made with prior chest from one day earlier. Extensive infiltrate is identified throughout the left lung. Infiltrate has increased significantly since yesterday. There is now parenchymal consolidation in the left base. There appears to be volume loss on the left. There is patchy infiltrate right midlung and right base, similar to prior. No pneumothorax is seen. IMPRESSION: Worsening left-sided infiltrate when compared with the examination of one day earlier. Dictated by: Dictated on workstation # [id number]
[2020-01-13] MEDS: AZITHROMYCIN INJECTION 500 MG in NS (IVPB) 250 ML IV SCH (17:14)
[2020-01-13] MEDS: MAGNESIUM 1 GM/100 ML IVPB 100 ML IV SCH ×2 (17:40→18:19)
[2020-01-13] MEDS: NOREPINEPHRINE 4 MG/250 ML 250 ML IV SCH (17:57)
--- NOTE | 2020-01-13 18:07 | NUR ---
PT DELIVERED TO ICU8 FROM HVAC MAINTENANCE TECHNICIAN. PT TO BE TRANSPORTED BACK TO HVAC MAINTENANCE TECHNICIAN AT 1400 TO RECHECK ON R LEG CIRCULATION. AT APPX 1320 PT WENT INTO AFIB RVR. CONTACTED DR BELLAMY. RECEIVED ORDERS FOR CARDIZEM 10 BOLUS AND CARDIZEM DRIP. PT WAS TAKEN TO HVAC MAINTENANCE TECHNICIAN SHORTLY THERE AFTER. PT RETURNED FROM HVAC MAINTENANCE TECHNICIAN AT APPX 1500. PT HR STILL 160S AND BP NOW DROPPINGB TO 70S/50S. EICU CONTACTED AT THIS TIME AND ORDERED ALBUMIN, DIGOXIN, AND BICARB AND ABG. EICU CALLED BACK SHORTLY AGAIN AND ORDERED A CENTRAL LINE AND LEVOPHED. CONTACTED DR BELLAMY AND DR DENISE FRO ANY CHANGES. THEY AGREED WITH PLAN AT THIS TIME. CONTACTED DR WATTS FOR CENTRAL LINE PLACEMENT.
--- NOTE | 2020-01-13 18:15 | CONSULTATION REPORT ---
DATE OF SERVICE: 01/13/2020 ADMITTING PHYSICIAN: Dr. Oliveira. HISTORY OF PRESENT ILLNESS: The patient is a 59-year-old male who presented with shortness of breath and cough. He was admitted and found to have ischemic changes of the lower extremity and also be in atrial fibrillation. He underwent lower extremity arteriography and was found to have an embolus and underwent embolectomy. Since being admitted back to the floor, he has been hypotensive and in atrial fibrillation. There is a potential for pneumonia as well and sepsis and may need vasopressors and will require central venous catheter. PAST MEDICAL HISTORY: COPD, pneumonia. PAST SURGICAL HISTORY: None known. ALLERGIES: No known drug allergies. MEDICATIONS: None. SOCIAL HISTORY: Positive smoke 30-pack years and recreational alcohol. FAMILY HISTORY: Noncontributory. VITAL SIGNS: Temperature 36.5, blood pressure 93/67, pulse 116, respirations 23, pulse ox 97% on 40% Vapotherm high-flow humidified oxygen. REVIEW OF SYSTEMS: This is a thin appearing male, currently in no acute distress. He is not experiencing any shortness of breath or difficulty breathing. No chest pain, palpitations, diaphoresis. No nausea, vomiting, no diarrhea or constipation. No fever, chills, no recent inadvertent weight loss. All other review of systems negative. PHYSICAL EXAMINATION: CHEST: Scattered expiratory wheezes bilaterally. HEART: Regular, no murmurs. EXTREMITIES: No lower extremity edema, negative Homans sign with mild pallor. Normal capillary bilateral lower extremities. HEENT: No scleral icterus. NECK: No cervical lymphadenopathy. ABDOMEN: Soft, nontender, nondistended. SKIN: Warm, dry. LABORATORY DATA: WBC 12.4, hemoglobin 8.0, hematocrit 25, platelets 310. BUN is 8, creatinine 0.42. ASSESSMENT AND PLAN: A 59-year-old male with atrial fibrillation with an embolic event to the lower extremity, status post arteriography and embolectomy. He continues to be in atrial fibrillation also does lead to have developed pneumonia. He is currently hypotensive and will likely need a central venous catheter for vasopressors as well as frequent blood draws. Job ID: [id number] DocumentID: [id number] Dictated Date: 01/13/2020 17:45:51 Washroom Cleaner Date: 01/13/2020 18:14:58 Dictated By: ZACH WATTS MD
--- NOTE | 2020-01-13 18:22 | Diagnostic Imaging Report ---
INDICATION: Central line placement. TIME OF EXAM 5:52 PM CORRELATION is made with prior chest earlier same day. Left subclavian line has been placed. Tip overlies the SVC right atrial junction. No pneumothorax is seen. Extensive left-sided infiltrate is again noted. Patchy right mid and right basilar infiltrate is also present. IMPRESSION: Satisfactory line placement. No pneumothorax is detected. Dictated by: Dictated on workstation # [id number]
--- NOTE | 2020-01-13 20:15 | OPERATIVE REPORT ---
DATE OF SERVICE: 01/13/2020 ADMITING PHYSICIAN: Dr. Oliveira. PREOPERATIVE DIAGNOSES: Atrial fibrillation, hypertension, lower extremity embolus, pneumonia. POSTOPERATIVE DIAGNOSES: Atrial fibrillation, hypertension, lower extremity embolus, pneumonia. PROCEDURE: Placement of left subclavian central venous catheter. SURGEON: Zach Watts MD ANESTHESIA: Local. ESTIMATED BLOOD LOSS: Minimal. FINDINGS: Catheter tip at superior vena caval -- right atrial junction. DISPOSITION: The patient tolerated the procedure well. INDICATIONS: The patient is a 59-year-old male who presented with shortness of breath and cough, found to have pneumonia. While being admitted, he was found to have ischemic lower extremity as well as atrial fibrillation and underwent an aortogram with bilateral lower extremity runoff and found to have an embolic event and underwent an embolectomy. Since being admitted back to the floor, he has been hypotensive and will require central venous catheter for potential vasopressors. DESCRIPTION OF PROCEDURE: The chest and neck were prepped and draped in standard surgical fashion. 1% lidocaine was used to anesthetize the left subclavian region. The left subclavian vein was then cannulated with drawing of venous blood. The guidewire was then inserted without any resistance. The cannulating needle removed and a skin incision made using 11 blade. A tract was then created using a venous dilator and through this opening, a triple lumen central venous catheter was placed over the guidewire using the Seldinger technique. Guidewire was then removed and all three ports félix venous blood and saline pushed in without any resistance. The catheter was then sutured to the skin using interrupted 3-0 silk sutures. Catheter was then cleaned and covered with Op-Site. The patient tolerated the procedure well. The catheter may be accessed and used at any time. Job ID: [id number] DocumentID: [id number] Dictated Date: 01/13/2020 17:48:32 Marketing Traffic Manager Date: 01/13/2020 20:13:47 Dictated By: ZACH WATTS MD
[2020-01-13] MEDS: MELATONIN 3 MG TABLET PO SCH (20:54)
[2020-01-13] MEDS: oxyCODONE 5 MG/5 ML ORAL SOLN (roxiCODONE) 5 ML UDC PO PRN (20:54)
[2020-01-13] MEDS ORDERED: ATROPINE 1.2 MG/3 ML (0.4 MG/ML) SYR ONE (20:56)
[2020-01-13] MEDS: RIVAROXABAN 20 MG TABLET (XARELTO) PO SCH (23:25)
[2020-01-14] VITALS (25 sets, daily range): BP systolic 88–117; BP diastolic 54–81
[2020-01-14] MEDS: dilTIAZem DRIP PRE-MIX 125 ML IV SCH (01:34)
[2020-01-14] MEDS: RT-ALBUTEROL HFA (PROAIR HFA) 8.5 GM IH SCH ×5 (01:52→22:14)
[2020-01-14 02:37] LABS: BASOPHILS % (AUTO) 0 % (0-10); EOSINOPHILS % (AUTO) 0 % (0-10); HEMATOCRIT 24 % (40-54); HEMOGLOBIN 7.9 G/DL (13.3-17.7); LYMPHOCYTES % (AUTO) 8 % (12-44); MEAN CORPUSCULAR HEMOGLOBIN 31 PG (25-34); MEAN CORPUSCULAR HGB CONC 33 G/DL (32-36); MEAN CORPUSCULAR VOLUME 96 FL (80-99); MEAN PLATELET VOLUME 9.1 FL (7.4-10.4); MONOCYTES # (AUTO) 0.6 X 10^3 (0.0-1.0); MONOCYTES % (AUTO) 4 % (0-12); NEUTROPHILS # (AUTO) 11.3 X 10^3 (1.8-7.8); NEUTROPHILS % (AUTO) 87 % (42-75); PLATELET COUNT 294 10^3/uL (130-400); RED CELL DISTRIBUTION WIDTH 14.5 % (10.0-14.5)
[2020-01-14 02:55] LABS: ALANINE AMINOTRANSFERASE 13 U/L (0-55); ALBUMIN 2.1 GM/DL (3.2-4.5); ALKALINE PHOSPHATASE 62 U/L (40-136); BILIRUBIN,TOTAL 0.3 MG/DL (0.1-1.0); BUN/CREATININE RATIO 9; CALCIUM 7.4 MG/DL (8.5-10.1); CARBON DIOXIDE 30 MMOL/L (21-32); CHLORIDE 101 MMOL/L (98-107); CREATININE SERUM 0.43 MG/DL (0.60-1.30); GFR ESTIMATED > 60; GLUCOSE 103 MG/DL (70-105); MAGNESIUM 1.9 MG/DL (1.6-2.4); PHOSPHORUS 2.2 MG/DL (2.3-4.7); POTASSIUM 3.1 MMOL/L (3.6-5.0); SODIUM 139 MMOL/L (135-145)
[2020-01-14] MEDS: POTASSIUM CL 10MEQ/50ML IVPB 50 ML IV SCH ×5 (02:58→05:48)
[2020-01-14] MEDS: inSUlin ASPART (NovoLOG) 1 UNIT/0.01 ML (CHARGE PER UNIT) SC SCH ×4 (02:58→21:01)
[2020-01-14] MEDS: KCL 20 MEQ TAB (K-DUR) PO SCH (02:58)
[2020-01-14] MEDS: MAGNESIUM 1 GM/100 ML IVPB 100 ML IV SCH (02:58)
[2020-01-14] MEDS: LACTATED RINGERS 1,000 ML IV SCH ×3 (03:06→17:04)
[2020-01-14] MEDS: NOREPINEPHRINE 4 MG/250 ML 250 ML IV SCH ×2 (03:38→19:48)
--- NOTE | 2020-01-14 04:03 | Pulmonary Progress Note ---
Subjective Time Seen by a Provider: 03:56 Subjective/Events-last exam Pt is currently on Vasopressin. Sepsis Event Evaluation Height, Weight, BMI Height: '" Weight: lbs. oz. kg; 16.01 BMI Method: Focused Exam Lactate Level 01/11/20 18:05: Lactic Acid Level 1.59 01/12/20 08:01: Lactic Acid Level 0.84 Exam Exam Vital Signs Date Time Temp Pulse Resp B/P (MAP) Pulse Ox O2 Delivery O2 Flow Rate FiO2 01/14/20 03:40 36.9 Vapotherm 30.00 50.00 01/14/20 03:40 93 Vapotherm 30.00 50 01/14/20 03:05 Vapotherm 30.00 50.00 01/14/20 02:05 Vapotherm 30.00 70.00 01/14/20 02:00 103 12 102/67 (79) 89 Vapotherm 30.00 50.00 01/14/20 01:52 92 Vapotherm 30.00 50 01/14/20 01:33 Vapotherm 30.00 50.00 01/14/20 01:00 87 01/14/20 01:00 87 21 102/62 (75) 94 Vapotherm 35.00 55.00 01/14/20 00:58 Vapotherm 35.00 55.00 01/14/20 00:19 Vapotherm 40.00 60.00 01/14/20 00:00 37.0 Vapotherm 40.00 65.00 01/14/20 00:00 87 20 103/63 (76) 94 Vapotherm 40.00 65.00 01/13/20 23:30 90 Vapotherm 40.00 65 01/13/20 23:00 89 110/65 (80) 92 Vapotherm 40.00 65.00 01/13/20 22:00 89 21 103/67 (79) 91 Vapotherm 40.00 60.00 01/13/20 21:41 95 Vapotherm 40.00 60 01/13/20 21:10 88 17 110/65 (80) 91 Vapotherm 40.00 60.00 01/13/20 21:00 85 17 98/64 (75) 90 Vapotherm 40.00 60.00 01/13/20 20:58 87 01/13/20 20:00 134 26 92/62 (72) 93 Vapotherm 40.00 60.00 01/13/20 20:00 91 Vapotherm 40.00 60 01/13/20 19:44 37.1 01/13/20 19:30 Vapotherm 40.00 60.00 01/13/20 19:00 112 25 108/67 (81) 94 Vapotherm 40.00 60.00 01/13/20 19:00 112 01/13/20 18:26 94 Vapotherm 40.00 60 01/13/20 18:00 117 25 100/65 (77) 97 Vapotherm 40.00 60.00 01/13/20 17:57 63/55 01/13/20 17:00 116 23 93/67 (76) 97 Vapotherm 40.00 60.00 01/13/20 16:00 163 22 75/57 (63) 100 Vapotherm 40.00 60.00 01/13/20 16:00 36.5 01/13/20 15:45 161 24 101/54 (70) 97 Vapotherm 40.00 60.00 01/13/20 15:36 37.4 168 100 60 01/13/20 15:30 174 22 71/49 (56) 90 Vapotherm 40.00 60.00 01/13/20 15:15 172 24 76/60 (65) 100 Vapotherm 40.00 60.00 01/13/20 15:00 179 22 73/59 (64) 100 Vapotherm 30.00 60.00 01/13/20 14:00 176 23 95/72 (80) 91 Vapotherm 30.00 60.00 01/13/20 13:30 184 30 91/75 (80) 98 Vapotherm 30.00 60.00 01/13/20 13:00 100 22 119/75 (90) 98 Vapotherm 30.00 60.00 01/13/20 12:45 104 9 145/97 (113) 97 Vapotherm 30.00 60.00 01/13/20 12:30 105 21 145/108 (120) 97 Vapotherm 30.00 60.00 01/13/20 12:26 111 01/13/20 12:15 107 24 160/103 (122) 93 Vapotherm 30.00 60.00 01/13/20 12:00 113 24 133/86 (102) 93 Vapotherm 30.00 60.00 01/13/20 12:00 37.4 01/13/20 11:49 113 01/13/20 10:43 111 111/51 01/13/20 09:00 97 Vapotherm 30.00 01/13/20 08:09 36.8 118 26 126/89 (101) 97 Vapotherm 30.00 60.00 01/13/20 07:28 90 Vapotherm 30.00 60 01/13/20 04:15 36.7 110 22 124/79 (94) 93 High Flow N/C 10.00 I & O 01/14/20 07:00 Intake Total 2625 ml Output Total 200 ml Balance 2425 ml Height & Weight Height: '" Weight: lbs. oz. kg; 16.01 BMI Method: General Appearance: No Apparent Distress, Anxious, Cachetic HEENT: PERRL/EOMI, TMs Normal, Normal ENT Inspection Neck: Normal Inspection, Supple Respiratory: Decreased Breath Sounds, Respiratory Distress (tachypnea) Cardiovascular: No Murmur, Tachycardia (regular rate) Capillary Refill: Less Than 3 Seconds Gastrointestinal: normal bowel sounds, non tender, soft Extremity: Other (right foot cold, pulseless, blue discoloration of toes) Neurologic/Psychiatric: Alert, Oriented x3 Skin: Normal Color, Warm/Dry Lymphatic: No Adenopathy Results Lab Laboratory Tests 01/13/20 05:00 01/13/20 05:10 01/13/20 15:45 01/14/20 02:30 Assessment/Plan Assessment/Plan PNA -- possible post obstructive pneumonia r/o cancer -Pt is currently on Vapotherm -Continue Rocephin and azithromycin -Check cultures -COVID is negative -MRSA and influenza -- is negative -Check RVP -check CT of chest to r/o mass. Hypotension -Currently resolved and off levophed Afib RVR now converted -Currently on Cardizem Acute occlusion of artery of right lower extremity s/p abdominal aorta gram with TPA via cath Hypokalemia -replace anemia -monitor - protonix Tobacco use with probable COPD JENI DENISE DO Jan 14, 2020 04:03
[2020-01-14] MEDS ORDERED: POTASSIUM CL 10MEQ/50ML IVPB 50 ML IV SCH (06:00)
--- NOTE | 2020-01-14 07:41 | Diagnostic Imaging Report ---
HISTORY: Respiratory distress, atrial fibrillation COMPARISON: 01/13/2020 FINDINGS: Single frontal view of the chest. There is dense consolidation in the left lung. Aeration in the left lung base is minimally improved. There is a small left pleural effusion. The left central line tip projects over the SVC. The mediastinum is shifted to left similar to the prior exam. Airspace opacities in the right midlung and right lung base are mildly increased. No pneumothorax is seen. Lung volumes appear large. The cardiac silhouette is stable in size. IMPRESSION: 1. Volume loss and dense consolidation in the left lung with minimally improved aeration. Small left pleural effusion. 2. Persistent patchy airspace opacities in the right lung appear mildly increased. Dictated by: Dictated on workstation # [id number]
--- NOTE | 2020-01-14 08:18 | Physical Therapy Progress Note ---
Therapy Progress Note PT to begin treatment of patient again starting tomorrow per verbal instructions received from Dr. Watson on 01/13/20. MARKO REID PT Jan 14, 2020 08:18
[2020-01-14] MEDS ORDERED: POTASSIUM PHOSPHATE INJ 30 MM in NS (IVPB) 250 ML IV ONE (09:00)
[2020-01-14] MEDS: NICOTINE 14 MG (NICODERM) PATCH TD SCH (09:11)
[2020-01-14] MEDS: NICOTINE PATCH REMOVAL TP SCH (09:11)
[2020-01-14] MEDS: CLOPIDOGREL 75 MG (PLAVIX) TABLET PO SCH (09:12)
[2020-01-14] MEDS: PANTOPRAZOLE 40 MG (PROTONIX) VIAL IV SCH (09:12)
[2020-01-14] MEDS: oxyCODONE 5 MG/5 ML ORAL SOLN (roxiCODONE) 5 ML UDC PO PRN ×3 (09:25→21:00)
[2020-01-14] MEDS: NS IV 1000 ML 1,000 ML IV SCH ×2 (09:57→20:59)
--- NOTE | 2020-01-14 10:58 | Progress Note - Hospitalist ---
Subjective HPI/CC On Admission Date Seen by Provider: Jan 14, 2020 Time Seen by Provider: 08:55 Moshe Soto is a 59-year-old male with past medical history of tobacco abuse who presented with fever and shortness of breath. He also reports having a cough. He denies any chest pain. He denies any nausea, vomiting, or abdominal pain. He denies any diarrhea. He denies any dysuria. He has no other complaints or concerns. He denies any recent travel. He denies any sick contacts. Subjective/Events-last exam He reports feeling better today. He is having some tingling in his right foot. His shortness of breath is improving. He denies any fevers or chills. He is having a cough. He denies any abdominal pain, nausea, or vomiting. He has no other complaints or concerns. Focused Exam Lactate Level 01/11/20 18:05: Lactic Acid Level 1.59 01/12/20 08:01: Lactic Acid Level 0.84 Objective Exam Vital Signs Vital Signs Date Time Temp Pulse Resp B/P (MAP) Pulse Ox O2 Delivery O2 Flow Rate FiO2 01/14/20 10:51 91 Vapotherm 25.00 40 01/14/20 10:00 97 21 103/63 (76) 01/14/20 08:00 37.3 Capillary Refill : Less Than 3 SecondsLess Than 3 Seconds General Appearance: No Apparent Distress, Chronically ill, Cachetic HEENT: PERRL/EOMI, Pharynx Normal Neck: Normal Inspection, Supple Respiratory: Lungs Clear, Normal Breath Sounds, No Respiratory Distress Cardiovascular: Regular Rate, Rhythm, No Edema, No Murmur Gastrointestinal: Normal Bowel Sounds, Non Tender, Soft Extremity: Normal Inspection, Non Tender, No Pedal Edema, Other (Right foot warm and well-perfused, no pain at this time, sensation intact) Neurologic/Psychiatric: Alert, Normal Mood/Affect Skin: Normal Color, Warm/Dry Results/Procedures Lab Laboratory Tests 01/13/20 15:45 01/14/20 02:30 Patient resulted labs reviewed. Imaging: Reviewed Imaging Report Assessment/Plan Assessment and Plan Assess & Plan/Chief Complaint Shock Atrial fibrillation with rapid ventricular response Acute occlusion of artery of right lower extremity due to thromboembolism Cardiology consulted, appreciate assistance Underwent emergent angiogram with thrombolytics and balloon angioplasty 01/12 Continue Plavix and Xarelto Started on Cardizem post procedurally Central line placed due to vasopressor requirement On vasopressin this morning Pneumonia Acute respiratory failure with hypoxia possible left upper lobe mass likely COPD Tobacco abuse transferred from [facility] Chest x-ray with right middle and lower lobe pneumonia, possible left upper lobe mass Blood cultures drawn, no growth COVID negative On Vapotherm continue ceftriaxone and azithromycin Needs CT chest to evaluate possible left upper lobe mass Pulmonology consulted, appreciate assistance MAT protocol Nicotine patch DVT prophylaxis: Lovenox Severe sepsis, resolved Diagnosis/Problems Diagnosis/Problems (1) Acute occlusion of artery of lower extremity due to thromboembolism Status: Acute (2) Severe sepsis Status: Acute (3) Pneumonia Status: Acute (4) COPD (chronic obstructive pulmonary disease) Status: Chronic (5) Tobacco abuse Status: Chronic (6) Acute respiratory failure with hypoxia Status: Acute (7) Lung mass Status: Acute (8) Atrial fibrillation with rapid ventricular response Status: Acute (9) Shock Status: Acute Clinical Quality Measures DVT/VTE Risk/Contraindication: Risk Factor Score Per Nursin RFS Level Per Nursing on Admit: 4+=Very High CLAU DUONG MD Jan 14, 2020 10:58
--- NOTE | 2020-01-14 11:44 | Occ Therapy Progress Note ---
Therapy Progress Note Order received for OT eval and treat. Chart review completed. Hold therapy today and begin tomorrow per Dr. Watson. ELEN BLACKWOOD OT Jan 14, 2020 11:44
--- NOTE | 2020-01-14 12:17 | Cardiology Progress Note ---
Subjective Date Seen by Provider: Jan 14, 2020 Time Seen by Provider: 12:14 Subjective/Events-last exam Patient is laying down in bed, feeling better, foot is better, still short of breath on Vapotherm Review of Systems General: No Chills, No Night Sweats, No Fatigue, No Malaise, No Appetite, No Other HEENT: No Head Aches, No Visual Changes, No Eye Pain, No Ear Pain, No Dysphasia, No Sinus Congestion, No Post Nasal Drip, No Sore Throat, No Other Pulmonary: Dyspnea, Cough; No Pleuritic Chest Pain, No Other Cardiovascular: Edema; No: Chest Pain, Palpitations, Orthopnea, Paroxysmal Noc. Dyspnea, Lt Headedness, Other Focused Exam Lactate Level 01/11/20 18:05: Lactic Acid Level 1.59 01/12/20 08:01: Lactic Acid Level 0.84 Objective-Cardiology Exam Last Set of Vital Signs Vital Signs 01/14/20 01/14/20 01/14/20 08:00 10:00 10:51 Temp 37.3 Pulse 97 Resp 21 B/P (MAP) 103/63 (76) Pulse Ox 91 O2 Delivery Vapotherm O2 Flow Rate 25.00 FiO2 40 Capillary Refill : Less Than 3 SecondsLess Than 3 Seconds I&O Intake and Output 01/13/20 23:59 Intake Total 7950 ml Balance 7950 ml Intake Oral 500 ml IV Total 7450 ml # Voids 1 General: Alert, Oriented X3, Cooperative HEENT: Atraumatic, PERRLA Neck: Supple, No JVD, No Thyromegaly Lungs: Normal Air Movement, Other (bilateral rhonchi) Heart: Regular Rate, Normal S1, Normal S2, Other (systolic murmur) Abdomen: Normal Bowel Sounds, Soft, No Tenderness, No Hepatosplenomegaly, No Masses Extremities: No Clubbing, No Cyanosis, No Tenderness/Swelling, Other (mild edema) Skin: No Rashes, No Breakdown, No Significant Lesion Neuro: Normal Gait, Normal Speech, Strength at 5/5 X4 Ext, Normal Tone, Sensation Intact Psych/Mental Status: Mental Status NL, Mood NL Results Lab Laboratory Tests 01/13/20 15:45 01/14/20 02:30 A/P-Cardiology Admission Diagnosis Acute limb ischemia Chest pain Acute respiratory failure Hypokalemia Assessment/Plan Acute limb ischemia, heavy thrombus in the distal SFA and large thrombus in the proximal SFA, status post TNK injection and heparin then balloon angioplasty, reestablishment of the flow, palpable pedal pulse at this time. Feeling better. New onset atrial fibrillation, most probably paroxysmal atrial fibrillation and had it in the past which caused the embolization to his leg. He is started on oral anticoagulation and on Cardizem drip, was hypotensive and started on pressors, currently off pressors, borderline tachycardic. Acute respiratory failure, pneumonia and lung mass, managed by Dr. Eugene. Chest pain, resembling angina, no previous cardiac history, continue to monitor at this time Left upper lobe mass, high suspicion of malignancy, consult Dr. Eugene Hypokalemia, being replaced. Continue to monitor History of head trauma about 2 years ago, was in coma for about a month. Has been on disability. Cannot tolerate thrombolytics Tobaccoism, stopped smoking 3 weeks ago, encouraged to continue with smoking cessation Anemia, monitor H&H Clinical Quality Measures DVT/VTE Risk/Contraindication: Risk Factor Score Per Nursin RFS Level Per Nursing on Admit: 4+=Very High THERESA BELLAMY MD Jan 14, 2020 12:17
[2020-01-14 12:32] LABS: RSV PCR TEST Not Detected (Not Detected)
--- NOTE | 2020-01-14 12:46 | NUR ---
RD ASSESSMENT PMHx: tobacco abuse; COPD PT INTERACTION: Pt was awake and pleasant during consult for MST score and protein calorie malnutrition. Pt states current appetite is "getting better." Note avg PO intake of 56% of meals, per chart review. Pt states following a regular diet at home and has no issues with chewing/swallowing food. Pt states no recent issues with nausea or vomiting. Pt states some issues with constipation and diarrhea. Note last BM was 01/11, and pt not currently on bowel regimen per chart review. Pt states recent wt loss, but unsure of amount or timeframe. Note unable to determine recent wt hx, per chart review. Upon visual assessment, pt appears thin and cachectic with visible signs of muscle and fat loss in the temporal region and suborbital fat pad region. Note pt has BMI of 16.7, which is classified as Underweight. Though wt hx is unknown, given poor PO intake and visual assessment, pt meets criteria for malnutrition per ASPEN guidelines. ABNORMAL NUTRITION-RELATED LAB VALUES LOW: K 3.1; BUN 4; cr 0.43; Ca 7.4; phos 2.2; Pro 5.0; alb 2.1 HIGH: Est. kcal needs: 1753-4266 kcal | 30-35 kcal/kg (for COPD) Est. Pro needs: 67-77 g Pro | 1.3-1.5 g Pro/kg (for COPD) PES STATEMENT: Inadequate oral intake (NI-2.1) related to loss of appetite | constipation | diarrhea as evidenced by pt interview | PO intake 56% of meals Inadequate protein intake (NI-5.6.1) related to poor oral intake as evidenced by lab values Pro 5.0 (low) | alb 2.1 (low) Underweight (NC-3.1) related to increased energy needs (COPD) as evidenced by BMI 16.7 | decreased muscle mass | malnutrition Chronic disease related malnutrition (NC-4.1.2) related to physiological causes increasing nutrient needs (COPD) as evidenced by estimated energy intake <75% of estimated energy requirement for =/> 1mon | muscle/fat wasting | visual assessment | diagnosis of COPD INTERVENTION: Continue with current diet order of CHO 60g/m 1snack diet. Pt may benefit from diet advancement to regular diet, if blood glucose levels remain unelevated. Add Ensure HP (vary) to meals TID. Provides 160 kcal and 16 g Pro per serving, for increased kcal and protein intake. Encouraged pt to eat when able. Will continue to follow and reassess as pt needs, intake, and status change. MONITOR/EVALUATE: PO Intake; Plan of Care; Hydration Status; Weight Status; Lab Values Doug Nunez, MS, RD, LD
[2020-01-14] MEDS ORDERED: CATHETER FLUSH 10 ML SYR IV PRN (13:45)
[2020-01-14] MEDS ORDERED: IOHEXOL 350 MG/ML 100 ML (OMNIPAQUE 350) VIAL IV ONE (13:45)
[2020-01-14] MEDS ORDERED: NS 100 ML (IVPB) BAG IV ONE (13:45)
[2020-01-14] MEDS ORDERED: HOLD METFORMIN - RECEIVED CONTRAST 20 ML VIAL IV SCH (13:45)
[2020-01-14] MEDS ORDERED: cefTRIAXone 1,000 MG IV (ROCEPHIN) VIAL ONE (14:26)
[2020-01-14] MEDS ORDERED: WATER (STERILE) FOR INJECTION 10 ML ONE (14:26)
[2020-01-14] MEDS: AZITHROMYCIN INJECTION 500 MG in NS (IVPB) 250 ML IV SCH (14:37)
[2020-01-14] MEDS: cefTRIAXone FOR IV USE 1,000 MG in WATER (STERILE) FOR INJECTION 10 ML IV SCH (14:38)
--- NOTE | 2020-01-14 14:51 | Diagnostic Imaging Report ---
PROCEDURE: CT angiography of the chest with contrast. TECHNIQUE: Multiple contiguous axial images were obtained through the chest after uneventful bolus administration of intravenous contrast. 3D reconstructed CTA MIP acquisitions were also performed. Auto Exposure Controls were utilized during the CT exam to meet ALARA standards for radiation dose reduction. INDICATION: Sepsis. Post heart catheterization. History of lung mass. COMPARISON: Chest radiograph on 12/25/2019 at 3:25 a.m. FINDINGS: This helical CT pulmonary angiogram is diagnostic to the subsegmental level branches of the pulmonary artery and demonstrates no pulmonary emboli. The heart and great vessels are unremarkable. There is no pericardial effusion. Lymphadenopathy is seen in the mediastinum and left hilum. Consolidative opacities are seen throughout the left lung. There are also consolidative opacities throughout the right middle lobe and inferior aspect of the right upper lobe. These findings are superimposed on centrilobular emphysema. Bilateral pleural effusions are present, [id number] on the left and small on the right. No pneumothorax. No central endobronchial obstructing lesions. No definite mass is visualized in the lungs. No acute osseous abnormalities. Old left-sided rib fracture is noted. The included upper abdomen demonstrates no acute abnormalities. Likely hemangioma is noted in the spleen. IMPRESSION: 1. No acute pulmonary embolus. 2. Consolidative opacities throughout the left lung and involving the right middle lobe and inferior aspect of the right upper lobe. Lymphadenopathy is also seen in the mediastinum and left hilum. These findings are favored to represent a combination of infection and atelectasis. Underlying mass in the left lung is not excluded given the diffuse opacities. Recommend follow-up imaging. 3. Bilateral pleural effusions, left greater than right. Dictated by: Dictated on workstation # [id number]
[2020-01-14] MEDS: RIVAROXABAN 20 MG TABLET (XARELTO) PO SCH (17:04)
[2020-01-14] MEDS: MELATONIN 3 MG TABLET PO SCH (21:00)
[2020-01-14] MEDS: meTOprolol TARTRATE 25 MG (LOPRESSOR) TABLET PO SCH (21:00)
[2020-01-15] VITALS (24 sets, daily range): BP systolic 85–111; BP diastolic 56–78
[2020-01-15] MEDS: LACTATED RINGERS 1,000 ML IV SCH (00:08)
[2020-01-15] MEDS: oxyCODONE 5 MG/5 ML ORAL SOLN (roxiCODONE) 5 ML UDC PO PRN ×2 (01:41→08:28)
[2020-01-15] MEDS: MELATONIN 3 MG TABLET PO PRN (01:42)
[2020-01-15 02:40] LABS: BASOPHILS % (AUTO) 0 % (0-10); EOSINOPHILS # (AUTO) 0.1 10^3/uL (0.0-0.3); EOSINOPHILS % (AUTO) 1 % (0-10); HEMATOCRIT 23 % (40-54); HEMOGLOBIN 7.6 G/DL (13.3-17.7); LYMPHOCYTES # (AUTO) 1.2 X 10^3 (1.0-4.0); LYMPHOCYTES % (AUTO) 11 % (12-44); MEAN CORPUSCULAR HEMOGLOBIN 31 PG (25-34); MEAN CORPUSCULAR HGB CONC 33 G/DL (32-36); MEAN CORPUSCULAR VOLUME 96 FL (80-99); MEAN PLATELET VOLUME 9.5 FL (7.4-10.4); MONOCYTES # (AUTO) 0.8 X 10^3 (0.0-1.0); MONOCYTES % (AUTO) 7 % (0-12); NEUTROPHILS # (AUTO) 8.8 X 10^3 (1.8-7.8); NEUTROPHILS % (AUTO) 81 % (42-75); PLATELET COUNT 273 10^3/uL (130-400); RED CELL DISTRIBUTION WIDTH 14.9 % (10.0-14.5); WHITE BLOOD COUNT 10.9 10^3/uL (4.3-11.0)
[2020-01-15] MEDS: RT-ALBUTEROL HFA (PROAIR HFA) 8.5 GM IH SCH (02:40)
[2020-01-15 02:58] LABS: BUN/CREATININE RATIO 10; CALCIUM 7.1 MG/DL (8.5-10.1); CARBON DIOXIDE 29 MMOL/L (21-32); CHLORIDE 100 MMOL/L (98-107); CREATININE SERUM 0.41 MG/DL (0.60-1.30); GFR ESTIMATED > 60; GLUCOSE 105 MG/DL (70-105); MAGNESIUM 1.7 MG/DL (1.6-2.4); PHOSPHORUS 2.4 MG/DL (2.3-4.7); POTASSIUM 3.4 MMOL/L (3.6-5.0); SODIUM 136 MMOL/L (135-145)
[2020-01-15] MEDS ORDERED: ANIDULAFUNGIN INJECTION 200 MG in NS (IVPB) 250 ML IV ONE (04:15)
[2020-01-15] MEDS ORDERED: PIPERACILLIN/TAZOBACTAM (BULK) 4.5 GM in NS (IVPB) 100 ML IV SCH (04:15)
[2020-01-15] MEDS ORDERED: methylPREDNISolone 125 MG (Solu-MEDROL) VIAL IVP ONE (04:15)
--- NOTE | 2020-01-15 04:20 | Pulmonary Progress Note ---
Subjective Date Seen by a Provider: Jan 15, 2020 Time Seen by a Provider: 04:15 Subjective/Events-last exam Pt is requiring more oxygen and CXR shows worse. Sepsis Event Evaluation Height, Weight, BMI Height: '" Weight: lbs. oz. kg; 16.01 BMI Method: Focused Exam Lactate Level 01/12/20 08:01: Lactic Acid Level 0.84 Exam Exam Vital Signs Date Time Temp Pulse Resp B/P (MAP) Pulse Ox O2 Delivery O2 Flow Rate FiO2 01/15/20 04:10 Vapotherm 35.00 55.00 01/15/20 03:05 36.2 01/15/20 03:05 95 Vapotherm 30.00 55 01/15/20 02:46 Vapotherm 30.00 55.00 01/15/20 02:40 100 Vapotherm 30.00 55 01/15/20 02:00 93 22 97/73 (81) 99 Vapotherm 25.00 40.00 01/15/20 01:00 106 21 97/66 (76) 96 Vapotherm 25.00 40.00 01/15/20 01:00 105 01/15/20 00:00 98 21 100/71 (81) 97 Vapotherm 25.00 40.00 01/14/20 23:26 36.6 01/14/20 23:04 95 Vapotherm 25.00 40 01/14/20 23:00 91 19 104/70 (81) 97 Vapotherm 25.00 40.00 01/14/20 22:14 100 Vapotherm 25.00 40 01/14/20 22:00 93 21 103/73 (83) 99 Vapotherm 25.00 40.00 01/14/20 21:00 104 26 96/66 (76) 96 Vapotherm 25.00 40.00 01/14/20 20:00 108 26 98/67 (77) 94 Vapotherm 25.00 40.00 01/14/20 20:00 95 Vapotherm 25.00 40 01/14/20 19:50 37.1 01/14/20 19:00 106 21 95/62 (73) 96 Vapotherm 25.00 40.00 01/14/20 19:00 108 01/14/20 18:53 100 Vapotherm 25.00 40 4/29/20 18:00 90 25 115/81 (92) 87 Vapotherm 25.00 40.00 01/14/20 17:00 105 23 117/72 (87) 89 Vapotherm 25.00 40.00 01/14/20 16:00 99 16 98/67 (77) 91 Vapotherm 25.00 40.00 01/14/20 16:00 37.2 01/14/20 15:34 95 Vapotherm 25.00 40 01/14/20 15:00 110 24 94/63 (73) 92 Vapotherm 25.00 40.00 01/14/20 14:39 92 Vapotherm 25.00 40 01/14/20 14:00 105 24 106/66 (79) 91 Vapotherm 25.00 40.00 01/14/20 13:00 101 35 100/62 (75) 95 Vapotherm 25.00 40.00 01/14/20 12:39 101 01/14/20 12:00 97 Vapotherm 25.00 40 01/14/20 12:00 113 29 101/64 (76) 89 Vapotherm 25.00 40.00 01/14/20 12:00 37.2 01/14/20 11:00 98 27 98/61 (73) 90 Vapotherm 25.00 40.00 01/14/20 10:51 91 Vapotherm 25.00 40 01/14/20 10:00 97 21 103/63 (76) 92 Vapotherm 25.00 40.00 01/14/20 09:00 103 27 97/57 (70) 91 Vapotherm 25.00 40.00 01/14/20 08:00 105 27 88/54 (65) 91 Vapotherm 25.00 40.00 01/14/20 08:00 37.3 01/14/20 07:58 94 Vapotherm 25.00 40 01/14/20 07:42 95 Vapotherm 25.00 40 01/14/20 07:00 104 23 101/64 (76) 85 Vapotherm 25.00 40.00 01/14/20 06:40 108 01/14/20 06:34 105 32 94/63 (73) 95 Vapotherm 25.00 40.00 01/14/20 06:00 103 24 97/60 (72) 94 Vapotherm 30.00 50.00 01/14/20 05:00 106 24 97/55 (14) 92 Vapotherm 30.00 50.00 I & O 01/15/20 07:00 Intake Total 2850 ml Output Total 1700 ml Balance 1150 ml Height & Weight Height: '" Weight: lbs. oz. kg; 16.01 BMI Method: General Appearance: Anxious, Chronically ill, Cachetic, Moderate Distress HEENT: PERRL/EOMI, Pharynx Normal Neck: Normal Inspection, Supple Respiratory: Crackles, Decreased Breath Sounds, Rales, Respiratory Distress Cardiovascular: Regular Rate, Rhythm, No Edema, No Murmur Capillary Refill: Less Than 3 Seconds Gastrointestinal: normal bowel sounds, non tender, soft Extremity: Normal Inspection, Non Tender, No Pedal Edema, Other (Right foot warm and well-perfused, no pain at this time, sensation intact) Neurologic/Psychiatric: Alert, Normal Mood/Affect Skin: Normal Color, Warm/Dry Lymphatic: No Adenopathy Results Lab Laboratory Tests 01/13/20 05:00 01/13/20 05:10 01/13/20 15:45 01/14/20 02:30 01/15/20 02:33 Assessment/Plan Assessment/Plan Acute on chronic respiratory failure PNA -- possible post obstructive pneumonia r/o cancer -Pt is currently on Vapotherm -- requiring 55% - Worsening CXR with Left lung opacification --- possible post obstructive pneumonia. -Will add solumedrol 125 x 1 then 40 Q 6 -Change rocephin to zosyn -MRSA is negative -Add CPT, and mucomyst to SVNS -Unable to do bronch at this point secondary to respiratory failure -Continue azithromycin -Check cultures -COVID is negative -MRSA and influenza -- is negative -Check RVP Hypotension with anemia -Transfuse 1 unit of PRBC -Currently resolved and off levophed Afib RVR now converted -Currently on Cardizem Acute occlusion of artery of right lower extremity s/p abdominal aorta gram with TPA via cath Hypokalemia -replace anemia -monitor - protonix Tobacco use with probable COPD JENI DENISE DO Jan 15, 2020 04:20
[2020-01-15] MEDS ORDERED: NS (IVPB) 100 ML ONE (04:27)
[2020-01-15] MEDS ORDERED: PIPERACILLIN/TAZO 4.5 GM VIAL (ZOSYN) IV ONE (04:28)
[2020-01-15] MEDS: POTASSIUM CL 10MEQ/50ML IVPB 50 ML IV SCH ×5 (04:40→07:45)
[2020-01-15] MEDS: MAGNESIUM 1 GM/100 ML IVPB 100 ML IV SCH ×3 (04:40→05:12)
[2020-01-15] MEDS: methylPREDNISolone 40 MG/ML (Solu-MEDROL) VIAL IV SCH ×4 (04:41→23:45)
[2020-01-15] MEDS: inSUlin ASPART (NovoLOG) 1 UNIT/0.01 ML (CHARGE PER UNIT) SC SCH ×4 (05:12→20:53)
[2020-01-15] MEDS: KCL 20 MEQ TAB (K-DUR) PO SCH (05:12)
[2020-01-15] MEDS ORDERED: NS IV 500 ML 500 ML IV SCH (05:15)
[2020-01-15] MEDS: NS IV 1000 ML 1,000 ML IV SCH ×2 (06:23→15:50)
[2020-01-15] MEDS: RT-ALBUTEROL/IPRATROPIUM 3 ML (DUONEB) VIAL INH SCH ×5 (07:01→21:54)
[2020-01-15] MEDS: aCETylcysteine 20% (MUCOMYST) 30ML SOLN VIAL INH SCH ×5 (07:01→21:54)
--- NOTE | 2020-01-15 07:16 | Diagnostic Imaging Report ---
INDICATION: Respiratory distress and A. fib. Comparison made with prior examination of 01/14/2020. FINDINGS: There is now complete opacification of the left lung presumably with fluid and atelectasis. There are extensive right upper and right lower lobe infiltrates.. There appears to be some underlying venous congestion. There is no pneumothorax. IMPRESSION: Increasing consolidation in the left lung as described. Extensive right upper and right lower lobe infiltrates. Central pulmonary venous congestion. Dictated by: Dictated on workstation # [id number]
[2020-01-15] MEDS: NICOTINE 14 MG (NICODERM) PATCH TD SCH (08:27)
[2020-01-15] MEDS: PANTOPRAZOLE 40 MG (PROTONIX) VIAL IV SCH (08:27)
[2020-01-15] MEDS: CLOPIDOGREL 75 MG (PLAVIX) TABLET PO SCH (08:28)
[2020-01-15] MEDS: NICOTINE PATCH REMOVAL TP SCH (08:28)
[2020-01-15] MEDS: DIGOXIN 0.25 MG (LANOXIN) TAB PO SCH (08:28)
[2020-01-15] MEDS: NOREPINEPHRINE 4 MG/250 ML 250 ML IV SCH ×2 (08:58→22:59)
[2020-01-15] MEDS: guaiFENesin (MUCINEX) 600 MG TAB PO SCH ×2 (09:05→20:53)
[2020-01-15] MEDS: meTOprolol TARTRATE 25 MG (LOPRESSOR) TABLET PO SCH ×2 (09:05→20:53)
--- NOTE | 2020-01-15 09:43 | Physical Therapy Evaluation ---
PT Evaluation-General Medical Diagnosis Admission Date Jan 11, 2020 at 15:52 Medical Diagnosis: sepsis/respriatory distress Onset Date: Jan 11, 2020 Therapy Diagnosis Therapy Diagnosis: generalized weakness/debility Precautions Precautions/Isolations: Fall Prevention, Standard Precautions, Pressure Ulcer Weight Bear Status Right Lower Extremity: Right Weight Bearing/Tolerated Left Lower Extremity: Left Weight Bearing/Tolerated Referral Physician: Roxanne Reason for Referral: Evaluation/Treatment Medical History Pertinent Medical History: Alcoholism, Smoking Additional Medical History lung mass and new onset A-Fib Current History s/p emergent angiogram with thrombolytics and balloon angioplasty 01/13/20 [place] [facility] [place] to [place] distress Reviewed History: Yes Social History Home: Single Level Current Living Status: Alone Prior Prior Level of Function SCALE: Activities may be completed with or without assistive devices. 5-Gjmdsabpju-kqoekvh completes the activity by him/herself with no assistance from a helper. 5-Set-up or Clean-up Assistance-helper sets up or cleans up; patient completes activity. Social Circle assists only prior to or following the activity. 4-Supervision or Touching Assistance-helper provides verbal cues and/or touching/steadying and/or contact guard assistance as patient completes activity. Assistance may be provided throughout the activity or intermittently. 3-Partial/Moderate Assistance-helper does LESS THAN HALF the effort. Social Circle lifts, holds or supports trunk or limbs, but provides less than half the effort. 2-Substantial/Maximal Assistance-helper does MORE THAN HALF the effort. Social Circle lifts or holds trunk or limbs and provides more than half the effort. 9-Pdamvulmb-edjhnt does ALL the effort. Patient does none of the effort to complete the activity. Or, the assistance of 2 or more helpers is required for the patient to complete the activity. If activity was not attempted, code reason: 7-Patient Refused. 9-Not Applicable-not attempted and the patient did not perform the activity before the current illness, exacerbation or injury. 10-Not Attempted due to Environmental Limitations-(lack of equipment, weather restraints, etc.). 88-Not Attempted due to Medical Conditions or Safety Concerns. Bed Mobility: 6 Transfers (B,C,W/C): 6 Gait: 6 Indoor Mobility (Ambulation): Independent Prior Devices Use: None PT Evaluation-Current Subjective Patient reluctantly agrees to PT. He is very hesitant to move right LE due to angioplasty earlier this week. PT reassured patient physician recommends mo vement on this date. Pain Numeric Pain Scale: 5-Moderate Pain Location: Right Location Body Site: Genital (groin) Pain Description: Ache Objective Patient Orientation: Normal For Age Attachments: Oxygen (vapotherm), IV ROM/Strength ROM Lower Extremities bilateral LE WFL Strength Lower Extremities 3/5 grossly bilateral LE Integumentary/Posture Integumentary refer to nursing notes Bowel Incontinence: Yes Bladder Incontinence: Yes Posture kyphotic Neuromuscular (Tone, Coordination, Reflexes) severely diminished due to inactivity Sensory Vision: Functional Hearing: Functional Sensation Right Lower Extremit: Impaired Sensation Left Lower Extremity: Impaired Transfers Roll Left to Right (QC): 2 Lying to Sitting/Side of Bed(Q: 2 Sit to Stand (QC): 2 Chair/Dxp-dy-Gaowv Xfer(QC): 2 patient was able to perform sit to stand with FWW x 2 sets to allow RN to cleanse due to incontinent BM Gait Does the Patient Walk?: No and Walking Goal IS indicated Balance Sitting Static: Fair Sitting Dynamic: Fair Standing Static: Fair Standing Dynamic: Poor Assessment/Needs 59 y.o. male, will benefit from skilled PT to address functional strength and mobility to improve current LOF to safely return to home at maximum LOF. Patient, per physician, is very guarded with his recovery. Rehab Potential: Guarded PT Short Term Goals Short Term Goals Time Frame: January 24, 2020 Roll Left & Right: 4 Sit to lyin Lying to sitting on side of be: 4 Sit to stand: 4 Chair/hlt-nu-ofuqh transfer: 4 Toilet transfer: 4 Walk 10 feet: 4 Walk 50 feet with two turns: 4 PT Speech Language Pathology Assistant Goals [facility] Goals PT Speech Language Pathology Assistant Goals Time Frame: February 07, 2020 Roll Left & Right (QC): 6 Sit to Lying (QC): 6 Lying-Sitting on Side/Bed(QC): 6 Sit to Stand (QC): 6 Chair/Kcf-ua-Nhgyf Xfer(QC): 6 Toilet Transfer (QC): 6 Does the Patient Walk: Yes Walk 10 feet (QC): 6 Walk 50ft with 2 Turns (QC): 6 Walk 150 ft (QC): 6 PT Plan Problem List Problem List: Activity Tolerance, Functional Strength, Safety, Balance, Gait, Transfer, Bed Mobility Treatment/Plan Treatment Plan: Continue Plan of Care Treatment Plan: Bed Mobility, Education, Functional Activity Lorena, Functional Strength, Gait, Safety, Therapeutic Exercise, Transfers Treatment Duration: February 07, 2020 Frequency: 6 times per week Estimated Hrs Per Day: .25 hour per day (to .5) Time/GCodes Time In: 903 Time Out: 917 Total Billed Treatment Time: 14 Total Billed Treatment 1 visit EVMod 14 min IDRIS ONEIL PT Jan 15, 2020 09:43
[2020-01-15] MEDS: morphine INJ 4 MG/ML 1 ML (VIAL/SYRINGE) IVP PRN (10:00)
[2020-01-15] MEDS ORDERED: SENNA W/DOCUSATE (SENOKOT S) TABLET PO NR (10:00)
[2020-01-15] MEDS: PIPERACILLIN/TAZO 4.5 GM/NS 100 ML IV SCH ×4 (10:00→17:52)
[2020-01-15] MEDS ORDERED: DOCUSATE SODIUM 100 MG (COLACE) CAP PO NR (10:00)
--- NOTE | 2020-01-15 10:00 | Cardiology Progress Note ---
Subjective Date Seen by Provider: Jan 15, 2020 Time Seen by Provider: 09:59 Subjective/Events-last exam Patient is laying down in bed, still having pain in his foot but there is palpable pulse, cyanosis of his toes Review of Systems General: No Chills, No Night Sweats, No Fatigue, No Malaise, No Appetite, No Other HEENT: No Head Aches, No Visual Changes, No Eye Pain, No Ear Pain, No Dysphasia, No Sinus Congestion, No Post Nasal Drip, No Sore Throat, No Other Pulmonary: No Dyspnea, No Cough, No Pleuritic Chest Pain, No Other Cardiovascular: No: Chest Pain, Palpitations, Orthopnea, Paroxysmal Noc. Dyspnea, Edema, Lt Headedness, Other Objective-Cardiology Exam Last Set of Vital Signs Vital Signs 01/15/20 01/15/20 01/15/20 01/15/20 06:00 07:06 07:59 09:03 Temp 36.5 Pulse 99 Resp 22 B/P (MAP) 99/72 (81) Pulse Ox 83 O2 Delivery Vapotherm O2 Flow Rate 40.00 65.00 FiO2 80 Capillary Refill : Less Than 3 SecondsGreater Than 3 Seconds I&O Intake and Output 01/15/20 00:00 Intake Total 3175 ml Output Total 2000 ml Balance 1175 ml Intake Oral 1975 ml IV Total 1200 ml Output Urine Total 2000 ml # Bowel Movements 1 General: Alert, Oriented X3, Cooperative HEENT: Atraumatic, PERRLA Neck: Supple, No JVD, No Thyromegaly Lungs: Normal Air Movement, Other (bilateral rhonchi) Heart: Regular Rate, Normal S1, Normal S2, Other (systolic murmur) Abdomen: Normal Bowel Sounds, Soft, No Tenderness, No Hepatosplenomegaly, No Masses Extremities: No Clubbing, No Cyanosis, No Tenderness/Swelling, Other (mild edema) Skin: No Rashes, No Breakdown, No Significant Lesion Neuro: Normal Gait, Normal Speech, Strength at 5/5 X4 Ext, Normal Tone, Sensation Intact Psych/Mental Status: Mental Status NL, Mood NL Results Lab Laboratory Tests 01/15/20 02:33 A/P-Cardiology Admission Diagnosis Acute limb ischemia Chest pain Acute respiratory failure Hypokalemia Assessment/Plan Acute limb ischemia, heavy thrombus in the distal SFA and large thrombus in the proximal SFA, status post TNK injection and heparin then balloon angioplasty, reestablishment of the flow, palpable pedal pulse at this time, cyanosis of the toes, continue on Plavix and Xarelto New onset atrial fibrillation, most probably paroxysmal atrial fibrillation and had it in the past which caused the embolization to his leg. He is started on oral anticoagulation and on Cardizem drip, was hypotensive and started on pressors, currently off pressors, heart rate is better controlled at this time. Continue on current medication monitor Acute respiratory failure, pneumonia and lung mass, managed by Dr. Eugene. Chest pain, resembling angina, no previous cardiac history, continue to monitor at this time Left upper lobe mass, high suspicion of malignancy, consult Dr. Eugene History of head trauma about 2 years ago, was in coma for about a month. Has be en on disability. Cannot tolerate thrombolytics Tobaccoism, stopped smoking 3 weeks ago, encouraged to continue with smoking cessation Anemia, monitor H&H, I will start him on iron supplement Clinical Quality Measures DVT/VTE Risk/Contraindication: Risk Factor Score Per Nursin RFS Level Per Nursing on Admit: 4+=Very High THERESA BELLAMY MD Jan 15, 2020 10:00
[2020-01-15] MEDS: FERROUS SULF 325 MG (IRON) TAB PO SCH (10:45)
--- NOTE | 2020-01-15 10:54 | Progress Note - Hospitalist ---
Subjective HPI/CC On Admission Date Seen by Provider: Jan 15, 2020 Time Seen by Provider: 08:25 Moshe Soto is a 59-year-old male with past medical history of tobacco abuse who presented with fever and shortness of breath. He also reports having a cough. He denies any chest pain. He denies any nausea, vomiting, or abdominal pain. He denies any diarrhea. He denies any dysuria. He has no other complaints or concerns. He denies any recent travel. He denies any sick contacts. Subjective/Events-last exam He reports pain in his right foot. He also reports pain in his left groin where the sheath was. He reports a nonproductive cough. He does not feel to get shortness of breath is any worse. He denies any fevers or chills. He denies any chest pain. He denies any abdominal pain, nausea, vomiting, or diarrhea. Objective Exam Vital Signs Vital Signs Date Time Temp Pulse Resp B/P (MAP) Pulse Ox O2 Delivery O2 Flow Rate FiO2 01/15/20 10:07 94 Vapotherm 40.00 55 01/15/20 07:59 36.5 01/15/20 06:00 99 22 99/72 (81) Capillary Refill : Less Than 3 SecondsGreater Than 3 Seconds General Appearance: No Apparent Distress, Chronically ill, Cachetic Respiratory: Lungs Clear, No Respiratory Distress, Decreased Breath Sounds, Other (Wearing Vapotherm) Cardiovascular: Regular Rate, Rhythm, No Edema, No Murmur Gastrointestinal: Normal Bowel Sounds, Non Tender, Soft Extremity: Normal Inspection, Non Tender, Pedal Edema Neurologic/Psychiatric: Alert, Oriented x3, Normal Mood/Affect Skin: Normal Color, Warm/Dry Results/Procedures Lab Laboratory Tests 01/15/20 02:33 Patient resulted labs reviewed. Imaging: Reviewed Imaging Report Assessment/Plan Assessment and Plan Assess & Plan/Chief Complaint Severe sepsis Pneumonia Acute respiratory failure with hypoxia possible left upper lobe mass likely COPD Tobacco abuse transferred from [facility] Chest x-ray with right middle and lower lobe pneumonia, possible left upper lobe mass Pulmonology consulted, appreciate assistance Blood cultures drawn, no growth COVID negative On Vapotherm, weaning as able continue Zosyn, Eraxis, and azithromycin CT revealed left-sided pneumonia, follow-up imaging needed to evaluate for possible underlying mass MAT protocol Nicotine patch Atrial fibrillation with rapid ventricular response Acute occlusion of artery of right lower extremity due to thromboembolism Cardiology consulted, appreciate assistance Underwent emergent angiogram with thrombolytics and balloon angioplasty 01/12 Continue Plavix and Xarelto Normocytic anemia Hemoglobin 7.6, trending down since admission Obtain iron studies, B12, folate levels Check fecal occult blood DVT prophylaxis: Already receiving therapeutic anticoagulation Shock, resolved Diagnosis/Problems Diagnosis/Problems (1) Acute occlusion of artery of lower extremity due to thromboembolism Status: Acute (2) Severe sepsis Status: Acute (3) Pneumonia Status: Acute (4) COPD (chronic obstructive pulmonary disease) Status: Chronic (5) Tobacco abuse Status: Chronic (6) Acute respiratory failure with hypoxia Status: Acute (7) Lung mass Status: Acute (8) Atrial fibrillation with rapid ventricular response Status: Acute (9) Shock Status: Resolved Resolution Date/Time: 01/15/20 @ 11:14 Clinical Quality Measures DVT/VTE Risk/Contraindication: Risk Factor Score Per Nursin RFS Level Per Nursing on Admit: 4+=Very High CLAU DUONG MD Jan 15, 2020 10:54
--- NOTE | 2020-01-15 11:38 | NUR ---
CM/SS visited with the patient for social service consult. The patient had physical therapy today and stated "it felt so good to get up". He stated he thinks he is getting better but has a ways to go. CM/SS discussed the patients home life due to the nurses concern when he came in "dirty". The patient reports that he lives at [facility]. He does receive Social Security monthly. He believes it to be $1,030 a month. However, he stated that he only receives $930 of that due to his Medicare being taken out. The patient verbalized that he does not have very many bills due to his house being paid off along with his truck being paid off. He states the only bills he pays for are utilities and his truck insurance. CM/SS asked the patient if he receives any additional services and her stated "no". CM/SS asked if the patient was lacking in any resources such as food and other necessities. He stated that he did not have any issues and felt that he was doing well. No concerns noted. CM/SS discussed inpatient rehab with the patient. He appeared to not understand fully what the inpatient rehab consisted of. CM/SS asked December, from [facility] to assess the patient to determine if he is a candidate. December stated that they would possibly be accepting the patient for admission tomorrow 01/15. CM/SS asked if December would explain inpatient rehab to the patient. She verbalized she would talk to him. Palliative was also consulted. The ROHAN Levi visited with the patient per her note. CM/SS will continue to follow patient.
--- NOTE | 2020-01-15 11:41 | NUR ---
pt's sbp has been >90 and map > 65 for this rn's whole shift. hold off on giving blood at this time per dr lunsford.
--- NOTE | 2020-01-15 12:20 | NUR ---
Palliative Care Note: Patient sitting up in bed eating lunch. Introduced self et asked if we could visit. He likes to go by Ravindra. He does not appear to be SOA with talking et he reports that he doesn't feel short of breath. Primary care nurse reported that his oxygen saturations drop quickly with any kind activity. Goals of care were discussed with Ravindra. He is very interested in rehabilitation so that he can get back to his independence and return to his loco home. He reports that he would be able to live with his brother here in [place] if [facility] was not deemed [facility] We talked briefly about COPD et new oxygen requirements. He voiced understanding et reports that he will carry oxygen around with him if he needs to. He also voice that he is interested in establishing a primary care physician so that he can be followed outside of the hospital. He appears to voice compliance et is very interested in intense therapies with hopes to return to his independent function. Will continue to follow along.
[2020-01-15] MEDS: dilTIAZem DRIP PRE-MIX 125 ML IV SCH (13:37)
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
[2020-01-15] MEDS: AZITHROMYCIN INJECTION 500 MG in NS (IVPB) 250 ML IV SCH (15:44)
[2020-01-15] MEDS: RIVAROXABAN 20 MG TABLET (XARELTO) PO SCH (16:59)
[2020-01-15] MEDS: MELATONIN 3 MG TABLET PO SCH (20:53)
[2020-01-15] MEDS: DOCUSATE SODIUM 100 MG (COLACE) CAP PO SCH (20:54)
[2020-01-15] MEDS: SENNA W/DOCUSATE (SENOKOT S) TABLET PO SCH (20:54)
[2020-01-15] MEDS: ACETAMINOPHEN 325 MG TABLET PO PRN ×2 (20:57→22:59)
[2020-01-16] VITALS (24 sets, daily range): BP systolic 94–116; BP diastolic 66–80
[2020-01-16] MEDS: RT-ALBUTEROL/IPRATROPIUM 3 ML (DUONEB) VIAL INH SCH ×6 (02:42→22:15)
[2020-01-16] MEDS: aCETylcysteine 20% (MUCOMYST) 30ML SOLN VIAL INH SCH ×6 (02:44→22:15)
[2020-01-16] MEDS: PIPERACILLIN/TAZO 4.5 GM/NS 100 ML IV SCH ×6 (02:46→19:48)
[2020-01-16 02:58] LABS: BASOPHILS % (AUTO) 0 % (0-10); EOSINOPHILS % (AUTO) 0 % (0-10); HEMATOCRIT 25 % (40-54); LYMPHOCYTES # (AUTO) 0.6 X 10^3 (1.0-4.0); LYMPHOCYTES % (AUTO) 7 % (12-44); MEAN CORPUSCULAR HEMOGLOBIN 31 PG (25-34); MEAN CORPUSCULAR HGB CONC 32 G/DL (32-36); MEAN CORPUSCULAR VOLUME 97 FL (80-99); MEAN PLATELET VOLUME 10.1 FL (7.4-10.4); MONOCYTES # (AUTO) 0.3 X 10^3 (0.0-1.0); MONOCYTES % (AUTO) 4 % (0-12); NEUTROPHILS # (AUTO) 7.4 X 10^3 (1.8-7.8); NEUTROPHILS % (AUTO) 89 % (42-75); PLATELET COUNT 322 10^3/uL (130-400); RED CELL DISTRIBUTION WIDTH 14.7 % (10.0-14.5); WHITE BLOOD COUNT 8.4 10^3/uL (4.3-11.0)
[2020-01-16 03:19] LABS: BUN/CREATININE RATIO 28; CALCIUM 7.6 MG/DL (8.5-10.1); CARBON DIOXIDE 32 MMOL/L (21-32); CHLORIDE 102 MMOL/L (98-107); GFR ESTIMATED > 60; GLUCOSE 145 MG/DL (70-105); MAGNESIUM 2.2 MG/DL (1.6-2.4); PHOSPHORUS 3.1 MG/DL (2.3-4.7); POTASSIUM 3.9 MMOL/L (3.6-5.0); SODIUM 140 MMOL/L (135-145)
--- NOTE | 2020-01-16 05:07 | Pulmonary Progress Note ---
Subjective Date Seen by a Provider: January 16, 2020 Time Seen by a Provider: 05:01 Subjective/Events-last exam CXR appears much better. Sepsis Event Evaluation Height, Weight, BMI Height: '" Weight: lbs. oz. kg; 16.01 BMI Method: Exam Exam Vital Signs Date Time Temp Pulse Resp B/P (MAP) Pulse Ox O2 Delivery O2 Flow Rate FiO2 01/16/20 03:00 78 16 106/74 (85) 96 Vapotherm 40.00 55.00 01/16/20 02:56 Vapotherm 40.00 55.00 01/16/20 02:43 96 Vapotherm 40.00 60 01/16/20 02:00 77 15 116/80 (92) 99 Vapotherm 40.00 65.00 01/16/20 01:00 80 01/16/20 01:00 76 15 115/77 (90) 98 Vapotherm 40.00 65.00 01/16/20 00:00 Vapotherm 40.00 65 01/16/20 00:00 86 13 109/78 (88) 98 Vapotherm 40.00 65.00 01/16/20 00:00 36.5 01/15/20 23:00 86 14 107/77 (87) 96 Vapotherm 40.00 65.00 01/15/20 22:00 84 13 110/78 (89) 95 Vapotherm 40.00 65.00 01/15/20 21:56 96 Vapotherm 40.00 65 01/15/20 21:00 89 17 111/77 (88) 94 Vapotherm 40.00 65.00 01/15/20 20:00 Vapotherm 40.00 65 01/15/20 20:00 89 15 107/73 (84) 93 Vapotherm 40.00 65.00 01/15/20 19:14 37.0 01/15/20 19:00 94 01/15/20 19:00 93 16 103/72 (82) 93 Vapotherm 40.00 65.00 01/15/20 18:42 96 Vapotherm 40.00 65 01/15/20 18:00 81 22 104/74 (84) 94 Vapotherm 40.00 55.00 01/15/20 17:00 93 19 100/75 (83) 93 Vapotherm 40.00 55.00 01/15/20 16:00 86 16 94/67 (76) 92 Vapotherm 40.00 55.00 01/15/20 16:00 36.7 01/15/20 15:54 Vapotherm 40.00 65 01/15/20 15:00 72 15 85/64 (71) 90 Vapotherm 40.00 55.00 01/15/20 14:08 96 Vapotherm 40.00 65 01/15/20 14:00 73 17 91/59 (70) 98 Vapotherm 40.00 55.00 01/15/20 13:00 67 14 87/56 (66) 95 Vapotherm 40.00 55.00 01/15/20 12:47 76 01/15/20 12:00 87 20 96/60 (72) 90 Vapotherm 40.00 55.00 01/15/20 12:00 Vapotherm 40.00 65 01/15/20 11:32 36.6 01/15/20 11:00 95 19 91/61 (71) 92 Vapotherm 40.00 55.00 01/15/20 10:51 Vapotherm 40.00 55.00 01/15/20 10:40 Vapotherm 40.00 75.00 01/15/20 10:07 94 Vapotherm 40.00 55 01/15/20 10:00 90 21 94/68 (77) 96 Vapotherm 40.00 65.00 01/15/20 09:03 Vapotherm 40.00 65.00 01/15/20 09:00 100 23 98/69 (79) 95 Vapotherm 40.00 60.00 01/15/20 08:00 Vapotherm 40.00 80 01/15/20 08:00 90 16 95/63 (74) 99 Vapotherm 40.00 60.00 01/15/20 07:59 Vapotherm 40.00 80.00 01/15/20 07:59 36.5 01/15/20 07:06 83 Vapotherm 40.00 80 01/15/20 07:00 112 23 107/67 (80) 93 Vapotherm 40.00 60.00 01/15/20 06:48 Vapotherm 40.00 100.00 01/15/20 06:44 101 01/15/20 06:00 99 22 99/72 (81) 88 Vapotherm 40.00 60.00 01/15/20 05:18 Vapotherm 40.00 60.00 I & O 01/16/20 07:00 Intake Total 2110 ml Output Total 1525 ml Balance 585 ml Height & Weight Height: '" Weight: lbs. oz. kg; 16.01 BMI Method: General Appearance: No Apparent Distress, Chronically ill, Cachetic HEENT: PERRL/EOMI, TMs Normal, Normal ENT Inspection Neck: Normal Inspection, Supple Respiratory: Lungs Clear, No Respiratory Distress, Decreased Breath Sounds, Other (Wearing Vapotherm) Cardiovascular: Regular Rate, Rhythm, No Edema, No Murmur Capillary Refill: Greater Than 3 Seconds Gastrointestinal: normal bowel sounds, non tender, soft Extremity: Normal Inspection, Non Tender, Pedal Edema Neurologic/Psychiatric: Alert, Oriented x3, Normal Mood/Affect Skin: Normal Color, Warm/Dry Lymphatic: No Adenopathy Results Lab Laboratory Tests 01/15/20 02:33 01/16/20 02:49 Assessment/Plan Assessment/Plan Acute on chronic respiratory failure PNA -- possible post obstructive pneumonia r/o cancer -Pt is currently on Vapotherm -- requiring 55% - CXR appears much improved. - solumedrol 40 Q 6 -Continue zosyn -MRSA is negative -Add CPT, and mucomyst to SVNS -Unable to do bronch at this point secondary to respiratory failure -Pt is on xeralto -Check BNP -Continue azithromycin -Check cultures -COVID is negative -MRSA and influenza -- is negative -Check RVP Afib RVR now converted -Currently on Cardizem Acute occlusion of artery of right lower extremity s/p abdominal aorta gram with TPA via cath Hypokalemia -replace anemia -monitor - protonix Tobacco use with probable COPD JENI DENISE DO January 16, 2020 05:07
[2020-01-16] MEDS ORDERED: FUROSEMIDE 40 MG/4 ML INJ (LASIX) IVP NR (05:15)
[2020-01-16] MEDS: NS IV 1000 ML 1,000 ML IV SCH ×2 (05:32→13:39)
[2020-01-16] MEDS: POTASSIUM CL 10MEQ/50ML IVPB 50 ML IV SCH (05:52)
[2020-01-16] MEDS: MAGNESIUM 1 GM/100 ML IVPB 100 ML IV SCH (05:52)
[2020-01-16] MEDS: KCL 20 MEQ TAB (K-DUR) PO SCH (05:53)
[2020-01-16] MEDS: inSUlin ASPART (NovoLOG) 1 UNIT/0.01 ML (CHARGE PER UNIT) SC SCH ×4 (05:54→21:17)
[2020-01-16] MEDS: methylPREDNISolone 40 MG/ML (Solu-MEDROL) VIAL IV SCH ×3 (05:57→18:00)
--- NOTE | 2020-01-16 07:34 | Diagnostic Imaging Report ---
CHEST 1 VIEW, AP/PA ONLY Indication: Respiratory distress Comparison: 01/15/2020 Findings: Improved aeration in the left lung as there is no longer complete opacification left hemithorax. Leftward mediastinal shift has also diminished. There remains opacification left lower hemithorax likely from a pleural effusion. Stable left subclavian catheter. Patchy right midlung zone opacities are similar. No pneumothorax. Impression: 1. Improved aeration of the left lung. 2. Persistent moderate left pleural effusion 3. Multifocal pulmonary consolidations have not substantially changed. Dictated by: Dictated on workstation # [id number]
[2020-01-16] MEDS: DIGOXIN 0.25 MG (LANOXIN) TAB PO SCH (08:01)
[2020-01-16] MEDS: SENNA W/DOCUSATE (SENOKOT S) TABLET PO SCH ×2 (08:01→21:21)
[2020-01-16] MEDS: FERROUS SULF 325 MG (IRON) TAB PO SCH ×2 (08:01→18:00)
[2020-01-16] MEDS: CLOPIDOGREL 75 MG (PLAVIX) TABLET PO SCH (08:01)
[2020-01-16] MEDS: guaiFENesin (MUCINEX) 600 MG TAB PO SCH ×2 (08:01→21:17)
[2020-01-16] MEDS: DOCUSATE SODIUM 100 MG (COLACE) CAP PO SCH ×2 (08:01→21:17)
[2020-01-16] MEDS: NICOTINE 14 MG (NICODERM) PATCH TD SCH (08:01)
[2020-01-16] MEDS: PANTOPRAZOLE 40 MG (PROTONIX) VIAL IV SCH (08:01)
[2020-01-16] MEDS: NICOTINE PATCH REMOVAL TP SCH (08:02)
[2020-01-16] MEDS ORDERED: ANIDULAFUNGIN INJECTION 100 MG in NS (IVPB) 100 ML IV SCH (09:00)
[2020-01-16] MEDS: meTOprolol TARTRATE 25 MG (LOPRESSOR) TABLET PO SCH ×2 (09:22→21:17)
--- NOTE | 2020-01-16 10:08 | Physical Therapy Daily Note ---
PT Daily Note-Current Subjective Pt reports soreness over the incision on the (L) side. Pt is agreeable to performing bed exercises. He declined the option to get up. Pain Numeric Pain Scale: 5-Moderate Pain Location: Left Location Body Site: Hip Pain Description: Ache Mental Status Patient Orientation: Person, Place, Time, Situation Attachments: Oxygen, IV Transfers SCALE: Activities may be completed with or without assistive devices. 5-Pejwmzcdhp-amglsgr completes the activity by him/herself with no assistance fr om a helper. 5-Set-up or Clean-up Assistance-helper sets up or cleans up; patient completes activity. [place] assists only prior to or following the activity. 4-Supervision or Touching Assistance-helper provides verbal cues and/or touching/steadying and/or contact guard assistance as patient completes activity. Assistance may be provided throughout the activity or intermittently. 3-Partial/Moderate Assistance-helper does LESS THAN HALF the effort. [place] lifts, holds or supports trunk or limbs, but provides less than half the effort. 2-Substantial/Maximal Assistance-helper does MORE THAN HALF the effort. [place] lifts or holds trunk or limbs and provides more than half the effort. 8-Kfsiqzkkz-aintnu does ALL the effort. Patient does none of the effort to complete the activity. Or, the assistance of 2 or more helpers is required for the patient to complete the activity. If activity was not attempted, code reason: 7-Patient Refused. 9-Not Applicable-not attempted and the patient did not perform the activity before the current illness, exacerbation or injury. 10-Not Attempted due to Environmental Limitations-(lack of equipment, weather restraints, etc.). 88-Not Attempted due to Medical Conditions or Safety Concerns. Weight Bearing Right Lower Extremity: Right Weight Bearing/Tolerated Left Lower Extremity: Left Weight Bearing/Tolerated Exercises Supine Ex: LE Protocol Supine Reps: 20 Treatments Reviewed the additional bed exercises that can be performed to reduce risk for further clotting. Pt was able to perform these exercises (I). Assessment Current Status: Fair Progress Pt was able to participate with (B) LE exercises and additional exercises to be performed every hour. PT Short Term Goals Short Term Goals Time Frame: January 24, 2020 Roll Left & Right: 4 Sit to lyin Lying to sitting on side of be: 4 Sit to stand: 4 Chair/tma-sa-tqtxo transfer: 4 Toilet transfer: 4 Walk 10 feet: 4 Walk 50 feet with two turns: 4 PT Cookie Mixer Helper Goals Intermediate Goals PT Intermediate Goals Time Frame: February 07, 2020 Roll Left & Right (QC): 6 Sit to Lying (QC): 6 Lying-Sitting on Side/Bed(QC): 6 Sit to Stand (QC): 6 Chair/Dgq-og-Uhttm Xfer(QC): 6 Toilet Transfer (QC): 6 Does the Patient Walk: Yes Walk 10 feet (QC): 6 Walk 50ft with 2 Turns (QC): 6 Walk 150 ft (QC): 6 PT Plan Treatment/Plan Treatment Plan: Continue Plan of Care Treatment Plan: Bed Mobility, Education, Functional Activity Lorena, Functional Strength, Gait, Safety, Therapeutic Exercise, Transfers Treatment Duration: February 07, 2020 Frequency: 6 times per week Estimated Hrs Per Day: .25 hour per day (to .5) Time/GCodes Time In: 0940 Time Out: 9055 Total Billed Treatment Time: 15 Total Billed Treatment 1, ex (15) LYDIA BELLA PT January 16, 2020 10:08
[2020-01-16] MEDS: NOREPINEPHRINE 4 MG/250 ML 250 ML IV SCH (11:14)
--- NOTE | 2020-01-16 12:24 | NUR ---
IRF Evaluation Received verbal order from Dr. Oliveira to evaluate patient for the ARU. Chart review and findings discussed with Dr. Sinha. Patient accepted. CM/SS notified. Anticipate admission, Sunday, January 18. Thank you for this referral.
--- NOTE | 2020-01-16 12:52 | Progress Note - Hospitalist ---
Subjective HPI/CC On Admission Date Seen by Provider: January 16, 2020 Time Seen by Provider: 09:00 Moshe Soot is a 59-year-old male with past medical history of tobacco abuse who presented with fever and shortness of breath. He also reports having a cough. He denies any chest pain. He denies any nausea, vomiting, or abdominal pain. He denies any diarrhea. He denies any dysuria. He has no other complaints or concerns. He denies any recent travel. He denies any sick contacts. Subjective/Events-last exam He reports shortness of breath. He is still having a cough. He is not having any fevers or chills. He denies any abdominal pain, nausea, or vomiting. He is feeling a bit bloated. He has not had a bowel movement. He reports some tingling in his right foot. Objective Exam Vital Signs Vital Signs Date Time Temp Pulse Resp B/P (MAP) Pulse Ox O2 Delivery O2 Flow Rate FiO2 01/16/20 12:00 Vapotherm 40.00 60 01/16/20 12:00 36.5 75 20 110/74 (86) 94 Capillary Refill : Less Than 3 SecondsLess Than 3 Seconds General Appearance: No Apparent Distress, Chronically ill, Cachetic Respiratory: No Respiratory Distress, Crackles Cardiovascular: Regular Rate, Rhythm, No Murmur Gastrointestinal: Normal Bowel Sounds, Non Tender, Soft Extremity: Normal Inspection, Non Tender, Pedal Edema Neurologic/Psychiatric: Alert, Normal Mood/Affect Skin: Normal Color, Warm/Dry Results/Procedures Lab Laboratory Tests 01/16/20 02:49 Patient resulted labs reviewed. Imaging: Reviewed Imaging Report Assessment/Plan Assessment and Plan Assess & Plan/Chief Complaint Severe sepsis Pneumonia Acute respiratory failure with hypoxia possible left upper lobe mass likely COPD Tobacco abuse transferred from [facility] Chest x-ray with right middle and lower lobe pneumonia, possible left upper lobe mass Pulmonology consulted, appreciate assistance Blood cultures drawn, no growth COVID negative On Vapotherm, weaning as able continue Zosyn Transition to oral azithromycin Discontinue Eraxis as no evidence of fungal infection present CT revealed left-sided pneumonia, follow-up imaging needed to evaluate for possible underlying mass MAT protocol Nicotine patch Atrial fibrillation with rapid ventricular response Acute occlusion of artery of right lower extremity due to thromboembolism Cardiology consulted, appreciate assistance Underwent emergent angiogram with thrombolytics and balloon angioplasty 01/12 Continue Plavix and Xarelto Iron deficiency anemia Anemia of chronic disease Folic acid deficiency Hemoglobin 8, able Iron studies consistent with both iron deficiency and anemia of chronic disease Folic acid level low Begin folic acid replacement Begin iron supplementation Will need a colonoscopy at some point, likely outpatient DVT prophylaxis: Already receiving therapeutic anticoagulation Shock, resolved Diagnosis/Problems Diagnosis/Problems (1) Acute occlusion of artery of lower extremity due to thromboembolism Status: Acute (2) Severe sepsis Status: Acute (3) Pneumonia Status: Acute (4) COPD (chronic obstructive pulmonary disease) Status: Chronic (5) Tobacco abuse Status: Chronic (6) Acute respiratory failure with hypoxia Status: Acute (7) Lung mass Status: Acute (8) Atrial fibrillation with rapid ventricular response Status: Acute (9) Shock Status: Resolved Resolution Date/Time: 01/15/20 @ 11:14 (10) Iron deficiency anemia Status: Chronic (11) Anemia of chronic disease Status: Chronic (12) Folic acid deficiency Status: Chronic Clinical Quality Measures DVT/VTE Risk/Contraindication: Risk Factor Score Per Nursin RFS Level Per Nursing on Admit: 4+=Very High CLAU DUONG MD January 16, 2020 12:52
[2020-01-16] MEDS ORDERED: FOLIC ACID 1 MG TAB PO NR (13:00)
[2020-01-16] MEDS ORDERED: polyethylene glycoL POWDER 17 GM (MIRALAX) PACK PO PRN (13:00)
[2020-01-16] MEDS: dilTIAZem DRIP PRE-MIX 125 ML IV SCH (13:39)
--- NOTE | 2020-01-16 15:31 | Occupational Ther Daily Note ---
OT Current Status-Daily Note Subjective Pt laying in bed at start of session, agreeable to OT tx. ADL-Treatment Therapy Code Descriptions/Definitions Functional Benedict Measure: 0=Not Assessed/NA 4=Minimal Assistance 1=Total Assistance 5=Supervision or Setup 2=Maximal Assistance 6=Modified Benedict 3=Moderate Assistance 7=Complete IndependenceSCALE: Activities may be completed with or without assistive devices. 8-Zspgbgjiio-ngndnzf completes the activity by him/herself with no assistance from a helper. 5-Set-up or Clean-up Assistance-helper sets up or cleans up; patient completes activity. [place] assists only prior to or following the activity. 4-Supervision or Touching Assistance-helper provides verbal cues and/or touching/steadying and/or contact guard assistance as patient completes activity. Assistance may be provided throughout the activity or intermittently. 3-Partial/Moderate Assistance-helper does LESS THAN HALF the effort. [place] lifts, holds or supports trunk or limbs, but provides less than half the effort. 2-Substantial/Maximal Assistance-helper does MORE THAN HALF the effort. [place] lifts or holds trunk or limbs and provides more than half the effort. 4-Kskwdkkub-falnqb does ALL the effort. Patient does none of the effort to complete the activity. Or, the assistance of 2 or more helpers is required for the patient to complete the activity. If activity was not attempted, code reason: 7-Patient Refused. 9-Not Applicable-not attempted and the patient did not perform the activity before the current illness, exacerbation or injury. 10-Not Attempted due to Environmental Limitations-(lack of equipment, weather restraints, etc.). 88-Not Attempted due to Medical Conditions or Safety Concerns. Other Treatment Pt agreed to OT tx with focus on ADLs. Pt's hair matted and he agreed to attempting to comb it out. Pt and OT tried to comb pt's hair without success. During process pt stated he wishes it was just cut off and told OT to "just cut it", nurse present. Nurse and OT cut matted hair from pt. Pt is unable to recall the last time he combed his hair or washed it. After cut, OT provided pt with shower cap and dependently washed pt's hair, then combed it. Pt's hair still had buildup on it at the end of tx. Post OT session, pt reports he feels better and is glad his hair is cut. Education OT Patient Education: Correct positioning, Energy conservation, Modified ADL techniques, Progress toward Goal/Update tx plan, Purpose of tx/functional activities Teaching Recipient: Patient Teaching Methods: Discussion Response to Teaching: Verbalize Understanding OT Short Term Goals Short Term Goals Time Frame: January 22, 2020 Eatin Oral hygiene: 4 Toileting hygiene: 3 Upper body dressin Lower body dressin Putting on/taking off footwear: 3 OT Assisted Goals Assisted Goals Time Frame: January 29, 2020 Eating (QC): 6 Oral Hygiene (QC): 6 Toileting Hygiene (QC): 5 Shower/Bathe Self (QC): 3 Upper Body Dressing (QC): 4 Lower Body Dressing (QC): 4 On/Off Footwear (QC): 4 Additional Goals: 1-Demonstrate ADL Tasks, 2-Verbalize Understanding, 3- ImproveStrength/Lorena 1=Demonstrate adherence to instructed precautions during ADL tasks. 2=Patient will verbalize/demonstrate understanding of assistive devices/modifications for ADL. 3=Patient will improve strength/tolerance for activity to enable patient to perform ADL's. OT Education/Plan Problem List/Assessment Assessment: Decreased Activ Tolerance, Decreased UE Strength Discharge Recommendations Plan/Recommendations: Continue POC Treatment Plan/Plan of Care Treatment,Training & Education: Yes Patient would benefit from OT for education, treatment and training to promote independence in ADL's, mobility, safety and/or upper extremity function for ADL's. Plan of Care: ADL Retraining, Functional Mobility, UE Funct Exercise/Act Treatment Duration: January 29, 2020 Frequency: 5 times per week Estimated Hrs Per Day: .25 hour per day Agreement: Yes Rehab Potential: Fair Time/GCodes Start Time: 14:50 Stop Time: 15:05 Total Time Billed (hr/min): 15 Billed Treatment Time 1, ADL ASH ANTONY OT January 16, 2020 15:31
[2020-01-16] MEDS: RIVAROXABAN 20 MG TABLET (XARELTO) PO SCH (18:00)
--- NOTE | 2020-01-16 19:15 | Cardiology Progress Note ---
Cardiology SOAP Progress Note Subjective: Very weak-looking gentleman. Denies any active cardiac complaints. Objective: I&O/Vital Signs 01/18/20 01/18/20 01/18/20 01/18/20 07:15 07:40 08:00 08:00 Temp 37.8 Pulse 107 108 Resp 18 38 B/P (MAP) 96/48 (64) Pulse Ox 91 95 O2 Delivery Mechanical Ventilator Mechanical Ventilator O2 Flow Rate 40.00 40.00 FiO2 40 01/18/20 01/18/20 01/18/20 01/18/20 08:00 09:00 10:00 10:05 Pulse 99 86 Resp 15 18 B/P (MAP) 98/66 (77) 116/58 (77) Pulse Ox 93 94 O2 Delivery Mechanical Ventilator Mechanical Ventilator Mechanical Ventilator Mechanical Ventilator O2 Flow Rate 40.00 40.00 35.00 FiO2 38 01/18/20 01/18/20 01/18/20 01/18/20 10:35 10:46 11:00 12:00 Temp 37.7 Pulse 82 92 Resp 19 34 B/P (MAP) 114/59 (77) Pulse Ox 92 90 O2 Delivery Mechanical Ventilator Mechanical Ventilator O2 Flow Rate 35.00 FiO2 35 35 01/18/20 01/18/20 01/18/20 01/18/20 12:00 12:00 12:24 13:00 Temp 37.1 Pulse 96 95 89 B/P (MAP) 103/52 (69) 115/57 (76) Pulse Ox 93 95 O2 Delivery Mechanical Ventilator Mechanical Ventilator O2 Flow Rate 35.00 35.00 01/18/20 01/18/20 01/18/20 01/18/20 13:35 14:00 14:24 15:00 Pulse 90 80 80 79 Resp 32 21 30 B/P (MAP) 102/51 112/54 (73) 128/62 (84) Pulse Ox 97 93 94 O2 Delivery Mechanical Ventilator Mechanical Ventilator O2 Flow Rate 35.00 35.00 FiO2 35 01/18/20 01/18/20 01/18/20 01/18/20 15:04 16:00 16:00 17:00 Temp 36.8 Pulse 80 80 Resp 24 16 B/P (MAP) 121/57 (78) 118/53 (74) Pulse Ox 93 94 O2 Delivery Mechanical Ventilator Mechanical Ventilator Mechanical Ventilator O2 Flow Rate 35.00 35.00 FiO2 35 5/3/20 5/3/20 5/3/20 17:07 18:00 18:33 Pulse 80 78 73 Resp 16 16 B/P (MAP) 116/53 133/61 (85) Pulse Ox 95 94 O2 Delivery Mechanical Ventilator O2 Flow Rate 35.00 FiO2 35 01/18/20 00:00 Intake Total 1570 ml Output Total 1250 ml Balance 320 ml Constitutional: AAO x 3 Respiratory: chest is bilaterally symmetric, lungs clear to auscultation Cardiovascular: regular rate-rhythm, S1 and S2 Gastrointestional: soft, audible bowel sounds Extremities: normal range of motion, non-tender, normal inspection, no lower extremity edema bilateral Neurologic/Psychiatric: no motor/sensory deficits, alert, normal mood/affect Skin: normal color Results/Procedures: Labs Laboratory Tests 01/18/20 01:16: Glucometer 193H 01/18/20 03:29: White Blood Count 9.6, Red Blood Count 2.67L, Hemoglobin 8.2L, Hematocrit 26L, Mean Corpuscular Volume 97, Mean Corpuscular Hemoglobin 31, Mean Corpuscular Hemoglobin Concent 32, Red Cell Distribution Width 14.9H, Platelet Count 394, Mean Platelet Volume 9.9, Neutrophils (%) (Auto) 91H, Lymphocytes (%) (Auto) 5L, Monocytes (%) (Auto) 4, Eosinophils (%) (Auto) 0, Basophils (%) (Auto) 0, Neutrophils # (Auto) 8.7H, Lymphocytes # (Auto) 0.5L, Monocytes # (Auto) 0.4, Eosinophils # (Auto) 0.0, Basophils # (Auto) 0.0, Sodium Level 141, Potassium Level 4.0, Chloride Level 101, Carbon Dioxide Level 32, Anion Gap 8, Blood Urea Nitrogen 16, Creatinine 0.45L, Estimat Glomerular Filtration Rate > 60, BUN/Creatinine Ratio 36, Glucose Level 118H, Calcium Level 7.6L, Phosphorus Level 3.6, Magnesium Level 1.9, Procalcitonin 0.08 01/18/20 03:33: Blood Gas Puncture Site RIGHT RADIAL ART MARIAMA, Blood Gas Patient Temperature 37.1, Arterial Blood pH 7.49H, Arterial Blood Partial Pressure CO2 47H, Arterial Blood Partial Pressure O2 90, Arterial Blood HCO3 36H, Arterial Blood Total CO2 36.9H, Arterial Blood Oxygen Saturation 97, Arterial Blood Base Excess 11.5H, Ace Test ART LINE, Blood Gas Ventilator Setting YES, Blood Gas Inspired Oxygen 38% 01/18/20 11:26: Glucometer 156H 01/18/20 17:39: Glucometer 180H Microbiology 01/17/20 Gram Stain - Final, Resulted 01/17/20 Sputum Culture - Preliminary, Resulted Culture In Progress 01/12/20 Blood Culture - Final, Complete No growth A/P: Assessment/Dx: Acute limb ischemia Chest pain Acute respiratory failure Hypokalemia Plan: Assessment/Plan Acute limb ischemia, heavy thrombus in the distal SFA and large thrombus in the proximal SFA, status post TNK injection and heparin then balloon angioplasty, reestablishment of the flow, palpable pedal pulse at this time, cyanosis of the toes, continue on Plavix and Xarelto New onset atrial fibrillation, most probably paroxysmal atrial fibrillation and had it in the past which caused the embolization to his leg. He is started on oral anticoagulation and on Cardizem drip, was hypotensive and started on pressors, currently off pressors, heart rate is better controlled at this time. Continue on current medication monitor. Currently in sinus rhythm. Acute respiratory failure, pneumonia and lung mass, managed by Dr. Eugene. Chest pain, resembling angina, no previous cardiac history, continue to monitor at this time Left upper lobe mass, high suspicion of malignancy, consult Dr. Eugene History of head trauma about 2 years ago, was in coma for about a month. Has been on disability. Cannot tolerate thrombolytics Tobaccoism, stopped smoking 3 weeks ago, encouraged to continue with smoking cessation Anemia, monitor H&H, I will start him on iron supplement Thank you for your consultation. Please call me if you have any questions. Winston Domingo MD, FACP, FACC, FSCAI, FHRS, CCDS Interventional Cardiology Cardiac Electrophysiology Vascular Medicine and Endovascular Interventions Steven DOMINGO MD January 16, 2020 19:15
[2020-01-16] MEDS: ACETAMINOPHEN 325 MG TABLET PO PRN (19:48)
[2020-01-16] MEDS: MELATONIN 3 MG TABLET PO SCH (21:17)
[2020-01-17] VITALS (27 sets, daily range): BP systolic 83–136; BP diastolic 46–85
[2020-01-17] MEDS: methylPREDNISolone 40 MG/ML (Solu-MEDROL) VIAL IV SCH ×4 (00:27→17:29)
[2020-01-17] MEDS: NS IV 1000 ML 1,000 ML IV SCH ×3 (00:28→17:34)
[2020-01-17] MEDS: RT-ALBUTEROL/IPRATROPIUM 3 ML (DUONEB) VIAL INH SCH ×5 (02:49→22:26)
[2020-01-17] MEDS: aCETylcysteine 20% (MUCOMYST) 30ML SOLN VIAL INH SCH ×5 (02:49→22:26)
[2020-01-17 03:22] LABS: BASOPHILS % (AUTO) 0 % (0-10); EOSINOPHILS % (AUTO) 0 % (0-10); HEMATOCRIT 25 % (40-54); HEMOGLOBIN 7.9 G/DL (13.3-17.7); LYMPHOCYTES # (AUTO) 0.6 X 10^3 (1.0-4.0); LYMPHOCYTES % (AUTO) 6 % (12-44); MEAN CORPUSCULAR HEMOGLOBIN 31 PG (25-34); MEAN CORPUSCULAR HGB CONC 32 G/DL (32-36); MEAN CORPUSCULAR VOLUME 97 FL (80-99); MEAN PLATELET VOLUME 9.8 FL (7.4-10.4); MONOCYTES # (AUTO) 0.4 X 10^3 (0.0-1.0); MONOCYTES % (AUTO) 3 % (0-12); NEUTROPHILS # (AUTO) 9.5 X 10^3 (1.8-7.8); NEUTROPHILS % (AUTO) 91 % (42-75); PLATELET COUNT 382 10^3/uL (130-400); RED CELL DISTRIBUTION WIDTH 14.9 % (10.0-14.5); WHITE BLOOD COUNT 10.4 10^3/uL (4.3-11.0)
[2020-01-17 03:41] LABS: BUN/CREATININE RATIO 43; CALCIUM 7.6 MG/DL (8.5-10.1); CARBON DIOXIDE 31 MMOL/L (21-32); CHLORIDE 102 MMOL/L (98-107); CREATININE SERUM 0.42 MG/DL (0.60-1.30); GFR ESTIMATED > 60; GLUCOSE 128 MG/DL (70-105); MAGNESIUM 1.9 MG/DL (1.6-2.4); PHOSPHORUS 2.8 MG/DL (2.3-4.7); POTASSIUM 3.4 MMOL/L (3.6-5.0); SODIUM 140 MMOL/L (135-145)
[2020-01-17] MEDS ORDERED: KCL 20 MEQ TAB (K-DUR) PO ONE (04:00)
[2020-01-17] MEDS ORDERED: FUROSEMIDE 40 MG/4 ML INJ (LASIX) IVP ONE (04:00)
--- NOTE | 2020-01-17 04:03 | Pulmonary Progress Note ---
Subjective Time Seen by a Provider: 04:01 Subjective/Events-last exam Pt appears to be doing better. Sepsis Event Evaluation Height, Weight, BMI Height: '" Weight: lbs. oz. kg; 16.01 BMI Method: Exam Exam Vital Signs Date Time Temp Pulse Resp B/P (MAP) Pulse Ox O2 Delivery O2 Flow Rate FiO2 01/17/20 03:00 67 18 106/74 (85) 90 Vapotherm 25.00 50.00 01/17/20 02:49 92 Vapotherm 25.00 50 01/17/20 02:00 65 18 111/73 (86) 91 Vapotherm 25.00 50.00 01/17/20 01:00 78 01/17/20 01:00 74 20 111/75 (87) 92 Vapotherm 25.00 50.00 01/17/20 00:00 75 18 116/79 (91) 95 Vapotherm 25.00 50.00 01/16/20 23:00 73 20 95/75 (82) 96 Vapotherm 25.00 50.00 01/16/20 22:19 Vapotherm 25.00 50.00 01/16/20 22:15 94 Vapotherm 25.00 50 01/16/20 22:00 79 21 116/77 (90) 94 Vapotherm 30.00 50.00 01/16/20 21:00 92 24 100/74 (83) 90 Vapotherm 30.00 50.00 01/16/20 20:00 90 20 108/74 (85) 91 Vapotherm 30.00 50.00 01/16/20 19:00 79 18 110/70 (83) 92 Vapotherm 30.00 50.00 01/16/20 19:00 80 01/16/20 18:41 90 Vapotherm 30.00 50 01/16/20 18:00 81 21 99/69 (79) 88 Vapotherm 35.00 45.00 01/16/20 17:00 90 21 94/67 (76) 88 Vapotherm 35.00 45.00 01/16/20 16:00 45 Vapotherm 35.00 60 01/16/20 16:00 36.0 Vapotherm 35.00 45.00 01/16/20 16:00 79 19 100/70 (80) 93 Vapotherm 35.00 45.00 01/16/20 15:35 95 Vapotherm 35.00 45 01/16/20 15:00 69 19 109/72 (84) 93 Vapotherm 40.00 50.00 01/16/20 14:44 Vapotherm 40.00 50.00 01/16/20 14:00 72 17 102/66 (78) 95 Vapotherm 40.00 55.00 01/16/20 14:00 40.00 55.00 01/16/20 13:15 79 01/16/20 13:00 72 18 101/71 (81) 96 Vapotherm 40.00 60.00 01/16/20 12:00 Vapotherm 40.00 60 01/16/20 12:00 36.5 75 20 110/74 (86) 94 Vapotherm 40.00 60.00 01/16/20 11:00 82 19 106/74 (85) 94 Vapotherm 40.00 60.00 01/16/20 10:43 94 Vapotherm 40.00 55 01/16/20 10:00 80 17 105/71 (82) 93 Vapotherm 40.00 60.00 01/16/20 09:00 80 23 106/70 (82) 91 Vapotherm 40.00 60.00 01/16/20 08:00 36.2 78 16 103/71 (82) 93 Vapotherm 40.00 60.00 01/16/20 08:00 Vapotherm 40.00 60 01/16/20 07:00 75 01/16/20 07:00 80 18 101/71 (81) 92 Vapotherm 40.00 55.00 01/16/20 06:21 95 Vapotherm 40.00 55 01/16/20 06:00 69 20 98/66 (77) 96 Vapotherm 40.00 55.00 01/16/20 05:00 82 20 97/69 (78) 95 Vapotherm 40.00 55.00 I & O 01/17/20 07:00 Intake Total 920 ml Output Total 350 ml Balance 570 ml Height & Weight Height: '" Weight: lbs. oz. kg; 16.01 BMI Method: General Appearance: No Apparent Distress, Chronically ill, Cachetic HEENT: PERRL/EOMI, TMs Normal, Normal ENT Inspection Neck: Normal Inspection, Supple Respiratory: Lungs Clear, No Respiratory Distress, Decreased Breath Sounds, Other (Wearing Vapotherm) Cardiovascular: Regular Rate, Rhythm, No Edema, No Murmur Capillary Refill: Less Than 3 Seconds Gastrointestinal: normal bowel sounds, non tender, soft Extremity: Normal Inspection, Non Tender, Pedal Edema Neurologic/Psychiatric: Alert, Oriented x3, Normal Mood/Affect Skin: Normal Color, Warm/Dry Lymphatic: No Adenopathy Results Lab Laboratory Tests 01/16/20 02:49 01/17/20 03:13 Assessment/Plan Assessment/Plan Acute on chronic respiratory failure PNA -- possible post obstructive pneumonia r/o cancer -Pt is currently on Vapotherm -- requiring 55% - solumedrol 40 Q 6 -Continue zosyn -MRSA is negative -CPT, and mucomyst to SVNS -Pt is on xeralto, and plavix -Will give 40 of lasix x 1 -Check cultures -COVID is negative -MRSA and influenza -- is negative -Check RVP Hypotension with anemia -Transfuse 1 unit of PRBC -Currently resolved and off levophed Afib RVR now converted -Currently on Cardizem Acute occlusion of artery of right lower extremity s/p abdominal aorta gram with TPA via cath Hypokalemia -replace anemia -monitor - protonix Tobacco use with probable COPD JENI DENISE DO January 17, 2020 04:03
[2020-01-17] MEDS: PIPERACILLIN/TAZO 4.5 GM/NS 100 ML IV SCH ×6 (04:16→17:29)
[2020-01-17] MEDS: NOREPINEPHRINE 4 MG/250 ML 250 ML IV SCH ×2 (04:16→14:32)
[2020-01-17] MEDS: MAGNESIUM 1 GM/100 ML IVPB 100 ML IV SCH (06:06)
[2020-01-17] MEDS: POTASSIUM CL 10MEQ/50ML IVPB 50 ML IV SCH ×5 (06:06→08:26)
[2020-01-17] MEDS: inSUlin ASPART (NovoLOG) 1 UNIT/0.01 ML (CHARGE PER UNIT) SC SCH ×3 (06:07→17:33)
[2020-01-17] MEDS: KCL 20 MEQ TAB (K-DUR) PO SCH (06:07)
[2020-01-17] MEDS ORDERED: LACTATED RINGERS 2,000 ML IV ONE (07:43)
[2020-01-17] MEDS ORDERED: PROPOFOL DRIP (ICU) 100 ML IV ONE (07:45)
--- NOTE | 2020-01-17 07:45 | NUR ---
TIMELINE NOTE: 0745-PT SITTING UP IN BED EATING BREAKFAST, O2 SATS IN 70'S WHILE ON VAPOTHERM 40l 100%. PT REPORTS SOB BUT REFUSES TO STOP EATING BREAKFAST. THIS RN CALLED AND INFORMED DR DENISE. NEW ORDERS RECEIVED FOR BIPAP 01/05. PT INFORMED OF THE NEW ORDER AND AGREES. 0750- RT IN ROOM AND PLACED PT ON BIPAP, SATS IMPROVED SLIGHTLY TO 80'S. PT CONTINUES TO REPORT SOB. DR DENISE INFORMED OF MINIMAL IMPROVEMENT W/ BIPAP, NEW ORDERS RECEIVED FOR INTUBATION. VENT SETTING GIVEN BY DR DENISE. NURSING STAFF AND RT AT BEDSIDE. 0801-4MG IV VERSED GIVEN 0806- PT INTUBATED BY BHAVANI GORMAN, SIZE 8 ETT, 23 AT LIP. COLOR CHANGE NOTED. PROPOFOL INFUSION STARTED AT 10MCG/KG/MIN. 0807- OG PLACED BY NURSING STAFF 0820- CHEST X RAY ORDERED TO CONFIRM PLACEMENT. 0825- 16 FR SCHWARTZ CATHETER PLACED BY ASHANTI MADRIGAL.
[2020-01-17] MEDS: DexMEDEtomidine 250 ML DRIP 250 ML IV SCH (09:02)
[2020-01-17] MEDS: FOLIC ACID 1 MG TAB PO SCH (09:18)
[2020-01-17] MEDS: MULTIVIT W/MINERALS TAB (THERAGRAN M) PO SCH (09:18)
[2020-01-17] MEDS: FERROUS SULF 325 MG (IRON) TAB PO SCH ×3 (09:18→16:00)
[2020-01-17] MEDS: PANTOPRAZOLE 40 MG (PROTONIX) VIAL IV SCH (09:18)
[2020-01-17] MEDS: DIGOXIN 0.25 MG (LANOXIN) TAB PO SCH (09:18)
[2020-01-17] MEDS: CLOPIDOGREL 75 MG (PLAVIX) TABLET PO SCH (09:18)
[2020-01-17] MEDS: NICOTINE PATCH REMOVAL TP SCH (09:19)
[2020-01-17] MEDS: AZITHROMYCIN 250 MG TAB (ZITHROMAX) PO SCH (09:19)
[2020-01-17] MEDS: guaiFENesin (MUCINEX) 600 MG TAB PO SCH ×2 (09:19→21:51)
[2020-01-17] MEDS: NICOTINE 14 MG (NICODERM) PATCH TD SCH (09:19)
[2020-01-17] MEDS: DOCUSATE SODIUM 100 MG (COLACE) CAP PO SCH ×2 (09:22→21:19)
[2020-01-17] MEDS: SENNA W/DOCUSATE (SENOKOT S) TABLET PO SCH ×2 (09:22→21:20)
[2020-01-17] MEDS: meTOprolol TARTRATE 25 MG (LOPRESSOR) TABLET PO SCH ×2 (09:22→21:51)
--- NOTE | 2020-01-17 09:22 | NUR ---
DR DUONG DOES NOT WANT PT TO RECEIVE MAINTENANCE IVF AT THIS TIME. NS NONADMIN ON EMAR.
--- NOTE | 2020-01-17 09:45 | Progress Note - Hospitalist ---
Subjective HPI/CC On Admission Date Seen by Provider: January 17, 2020 Time Seen by Provider: 08:40 Moshe Soto is a 59-year-old male with past medical history of tobacco abuse who presented with fever and shortness of breath. He also reports having a cough. He denies any chest pain. He denies any nausea, vomiting, or abdominal pain. He denies any diarrhea. He denies any dysuria. He has no other complaints or concerns. He denies any recent travel. He denies any sick contacts. Subjective/Events-last exam He is intubated and sedated. Objective Exam Vital Signs Vital Signs Date Time Temp Pulse Resp B/P (MAP) Pulse Ox O2 Delivery O2 Flow Rate FiO2 01/17/20 09:02 76 97/73 01/17/20 09:01 29 95 100 01/17/20 09:00 Mechanical Ventilator 100.00 01/17/20 07:33 36.1 Capillary Refill : Less Than 3 SecondsLess Than 3 Seconds General Appearance: No Apparent Distress, Chronically ill, Cachetic Respiratory: Lungs Clear, Normal Breath Sounds, No Respiratory Distress, Other (Intubated and mechanically ventilated) Cardiovascular: Regular Rate, Rhythm, No Murmur Gastrointestinal: Normal Bowel Sounds, Soft Extremity: Pedal Edema, Slow Capillary Refill, Swelling, Other (Discoloration of toes on right foot) Skin: Cool, Pallor, Other (Toes discolored right foot) Results/Procedures Lab Laboratory Tests 01/17/20 03:13 Patient resulted labs reviewed. Imaging: Reviewed Imaging Report Assessment/Plan Assessment and Plan Assess & Plan/Chief Complaint Severe sepsis Pneumonia Acute respiratory failure with hypoxia Endotracheally intubated Possible left upper lobe mass Likely COPD Tobacco abuse Intubated this morning due to worsening hypoxia Pulmonology consulted, appreciate assistance COVID negative, flu negative continue Zosyn and azithromycin Atrial fibrillation with rapid ventricular response Acute occlusion of artery of right lower extremity due to thromboembolism Cardiology consulted, appreciate assistance Underwent emergent angiogram with thrombolytics and balloon angioplasty 01/12 Continue Plavix and Xarelto Iron deficiency anemia Anemia of chronic disease Folic acid deficiency Hemoglobin 7.9, stable Iron studies consistent with both iron deficiency and anemia of chronic disease Folic acid level low Continue folic acid and iron supplementation Fecal occult blood positive Will need a colonoscopy at some point, likely outpatient DVT prophylaxis: Already receiving therapeutic anticoagulation Shock, resolved Diagnosis/Problems Diagnosis/Problems (1) Acute occlusion of artery of lower extremity due to thromboembolism Status: Acute (2) Severe sepsis Status: Acute (3) Pneumonia Status: Acute (4) COPD (chronic obstructive pulmonary disease) Status: Chronic (5) Tobacco abuse Status: Chronic (6) Acute respiratory failure with hypoxia Status: Acute (7) Lung mass Status: Acute (8) Atrial fibrillation with rapid ventricular response Status: Acute (9) Shock Status: Resolved Resolution Date/Time: 01/15/20 @ 11:14 (10) Iron deficiency anemia Status: Chronic (11) Anemia of chronic disease Status: Chronic (12) Folic acid deficiency Status: Chronic Clinical Quality Measures DVT/VTE Risk/Contraindication: Risk Factor Score Per Nursin RFS Level Per Nursing on Admit: 4+=Very High CLAU DUONG MD January 17, 2020 09:45
--- NOTE | 2020-01-17 09:57 | Anesthesia-Procedure Note ---
Procedures/Interventions Procedure Start/Stop/Diagnosis Date of Procedure: January 17, 2020 Start Time: 09:50 Stop Time: 10:00 Arterial Line Arterial Line Catheter: 20G Type: Radial Location: Right Procedure: prepped, draped in sterile fashion, good wave-form was obtained, patient tolerated procedure well, no immediate complications, post procedure area cleaned, post procedure dressing applied DEVEN CHONG CRNA January 17, 2020 09:57
[2020-01-17 10:09] LABS: ABG BASE EXCESS 11.5 MMOL/L (-2.5-2.5); ABG OXYGEN SATURATION 100 % (94-100); ABG PCO2 39 MMHG (35-45); ABG PH 7.56 (7.37-7.43); ABG PO2 214 MMHG (79-93); ABG TCO2 36.2 MMOL/L (21.0-31.0); ALLENS TEST ART LINE; INSPIRED O2 100%; VENTILATOR YES
[2020-01-17 10:10] LABS: PATIENT TEMP 35.9
--- NOTE | 2020-01-17 10:11 | Physical Therapy Progress Note ---
Therapy Progress Note Pt was placed on a mechanical ventilator this date. No treatment rendered. CANDI EUCEDA PT January 17, 2020 10:11
--- NOTE | 2020-01-17 10:40 | NUR ---
tele icu dr reviewed labs/chest xray. new orders received to decrease rate to 16.
--- NOTE | 2020-01-17 10:41 | NUR ---
dr mills attempted to contact pt's brother, no answer.
--- NOTE | 2020-01-17 10:43 | Diagnostic Imaging Report ---
EXAM: Portable erect AP chest at 825 INDICATION: Post intubation FINDINGS: In the interval since the exam performed earlier today at 3:42 AM, the patient has been intubated. The ET tube appears to be in good position overlying the midportion of the tracheal air shadow. The appearance of the chest itself has also improved considerably as the left lung base is much better aerated. There is still some residual atelectasis/infiltrate and fluid in the left lung base however. The other alveolar/interstitial pulmonary infiltrates are essentially no different. The heart is stable in size. The mediastinum is not widened. The central venous catheter on the left remains in good position. IMPRESSION: 1. In the interval since the prior exam, the patient has been intubated and the ET tube appears to be in good position. 2. The overall appearance of the chest itself has improved as the left lung base is much better aerated. A followup study would be recommended for continued evaluation. Dictated by: Dictated on workstation # [id number]
--- NOTE | 2020-01-17 11:09 | Diagnostic Imaging Report ---
EXAM: Portable erect AP chest at 342 INDICATION: Respiratory distress When compared to the prior exam of 01/16/2020 the overall appearance of the chest has not changed significantly. The left lung base remains opacified by atelectasis/infiltrate and fluid. There are still diffuse alveolar/interstitial infiltrates in left mid lung and left upper lobe. Alveolar/interstitial pulmonary infiltrates are also seen in the right lung base and right midlung. The heart is stable in size. The mediastinum is not widened. The osseous structures are intact. The central venous catheter on the left is unchanged in position. IMPRESSION: Stable chest. There has been no significant change since the prior study. A follow-up exam would be recommended for continued evaluation. Dictated by: Dictated on workstation # [id number]
[2020-01-17 12:04] LABS: ABG BASE EXCESS 11.9 MMOL/L (-2.5-2.5); ABG OXYGEN SATURATION 98 % (94-100); ABG PCO2 47 MMHG (35-45); ABG PO2 134 MMHG (79-93); ABG TCO2 37.6 MMOL/L (21.0-31.0)
[2020-01-17 12:05] LABS: ALLENS TEST ART LINE; INSPIRED O2 80; PATIENT TEMP 36.4; VENTILATOR YES
--- NOTE | 2020-01-17 12:22 | NUR ---
repeat abg results given to tele-icu . no new orders received.
--- NOTE | 2020-01-17 13:00 | NUR ---
PT HYPOTENSIVE TELEICU TO [place] IN, NEW ORDERS RECEIVED FOR 500ML LR BOLUS.
[2020-01-17] MEDS ORDERED: LACTATED RINGERS 1,000 ML IV ONE (13:01)
[2020-01-17] MEDS: dilTIAZem DRIP PRE-MIX 125 ML IV SCH (13:57)
[2020-01-17] MEDS: LACTATED RINGERS 1,000 ML IV SCH (14:21)
[2020-01-17] MEDS ORDERED: MIDAZOLAM 5 MG/5 ML (VERSED) VIAL IJ ONE (15:50)
--- NOTE | 2020-01-17 15:50 | NUR ---
Shon STARTED PER DR CHAPARRO ORDER.
[2020-01-17] MEDS: RIVAROXABAN 20 MG TABLET (XARELTO) PO SCH (16:00)
[2020-01-17] MEDS: PROPOFOL DRIP (ICU) 100 ML IV SCH (16:00)
--- NOTE | 2020-01-17 17:43 | NUR ---
t.f residual <25, rate increased to 20ml/hr per dr orders.
--- NOTE | 2020-01-17 21:12 | Cardiology Progress Note ---
Cardiology SOAP Progress Note Subjective: Intubated/ventilated. Objective: I&O/Vital Signs 01/18/20 01/18/20 01/18/20 01/18/20 07:15 07:40 08:00 08:00 Temp 37.8 Pulse 107 108 Resp 18 38 B/P (MAP) 96/48 (64) Pulse Ox 91 95 O2 Delivery Mechanical Ventilator Mechanical Ventilator O2 Flow Rate 40.00 40.00 FiO2 40 01/18/20 01/18/20 01/18/20 01/18/20 08:00 09:00 10:00 10:05 Pulse 99 86 Resp 15 18 B/P (MAP) 98/66 (77) 116/58 (77) Pulse Ox 93 94 O2 Delivery Mechanical Ventilator Mechanical Ventilator Mechanical Ventilator Mechanical Ventilator O2 Flow Rate 40.00 40.00 35.00 FiO2 38 01/18/20 01/18/20 01/18/20 01/18/20 10:35 10:46 11:00 12:00 Temp 37.7 Pulse 82 92 Resp 19 34 B/P (MAP) 114/59 (77) Pulse Ox 92 90 O2 Delivery Mechanical Ventilator Mechanical Ventilator O2 Flow Rate 35.00 FiO2 35 35 01/18/20 01/18/20 01/18/20 01/18/20 12:00 12:00 12:24 13:00 Temp 37.1 Pulse 96 95 89 B/P (MAP) 103/52 (69) 115/57 (76) Pulse Ox 93 95 O2 Delivery Mechanical Ventilator Mechanical Ventilator O2 Flow Rate 35.00 35.00 01/18/20 01/18/20 01/18/20 01/18/20 13:35 14:00 14:24 15:00 Pulse 90 80 80 79 Resp 32 21 30 B/P (MAP) 102/51 112/54 (73) 128/62 (84) Pulse Ox 97 93 94 O2 Delivery Mechanical Ventilator Mechanical Ventilator O2 Flow Rate 35.00 35.00 FiO2 35 01/18/20 01/18/20 01/18/20 01/18/20 15:04 16:00 16:00 17:00 Temp 36.8 Pulse 80 80 Resp 24 16 B/P (MAP) 121/57 (78) 118/53 (74) Pulse Ox 93 94 O2 Delivery Mechanical Ventilator Mechanical Ventilator Mechanical Ventilator O2 Flow Rate 35.00 35.00 FiO2 35 01/18/20 01/18/20 01/18/20 17:07 18:00 18:33 Pulse 80 78 73 Resp 16 16 B/P (MAP) 116/53 133/61 (85) Pulse Ox 95 94 O2 Delivery Mechanical Ventilator O2 Flow Rate 35.00 FiO2 35 01/18/20 00:00 Intake Total 1570 ml Output Total 1250 ml Balance 320 ml Constitutional: other (intubated/ventilated) Respiratory: chest is bilaterally symmetric, other (decreased breath sounds bilaterally.) Cardiovascular: regular rate-rhythm; No irregularly irregular, No extra beats; S1 and S2; No diastolic murmur, No systolic murmur Gastrointestional: soft, audible bowel sounds Extremities: normal range of motion, non-tender, normal inspection Neurologic/Psychiatric: other (intubated/ventilated.) Results/Procedures: Labs Laboratory Tests 01/18/20 01:16: Glucometer 193H 01/18/20 03:29: White Blood Count 9.6, Red Blood Count 2.67L, Hemoglobin 8.2L, Hematocrit 26L, Mean Corpuscular Volume 97, Mean Corpuscular Hemoglobin 31, Mean Corpuscular Hemoglobin Concent 32, Red Cell Distribution Width 14.9H, Platelet Count 394, Mean Platelet Volume 9.9, Neutrophils (%) (Auto) 91H, Lymphocytes (%) (Auto) 5L, Monocytes (%) (Auto) 4, Eosinophils (%) (Auto) 0, Basophils (%) (Auto) 0, Neutrophils # (Auto) 8.7H, Lymphocytes # (Auto) 0.5L, Monocytes # (Auto) 0.4, Eosinophils # (Auto) 0.0, Basophils # (Auto) 0.0, Sodium Level 141, Potassium Level 4.0, Chloride Level 101, Carbon Dioxide Level 32, Anion Gap 8, Blood Urea Nitrogen 16, Creatinine 0.45L, Estimat Glomerular Filtration Rate > 60, BUN/Creatinine Ratio 36, Glucose Level 118H, Calcium Level 7.6L, Phosphorus Level 3.6, Magnesium Level 1.9, Procalcitonin 0.08 01/18/20 03:33: Blood Gas Puncture Site RIGHT RADIAL ART MARIAMA, Blood Gas Patient Temperature 37.1, Arterial Blood pH 7.49H, Arterial Blood Partial Pressure CO2 47H, Arterial Blood Partial Pressure O2 90, Arterial Blood HCO3 36H, Arterial Blood Total CO2 36.9H, Arterial Blood Oxygen Saturation 97, Arterial Blood Base Excess 11.5H, Ace Test ART LINE, Blood Gas Ventilator Setting YES, Blood Gas Inspired Oxygen 38% 01/18/20 11:26: Glucometer 156H 01/18/20 17:39: Glucometer 180H Microbiology 01/17/20 Gram Stain - Final, Resulted 01/17/20 Sputum Culture - Preliminary, Resulted Culture In Progress 01/12/20 Blood Culture - Final, Complete No growth A/P: Assessment/Dx: Acute limb ischemia Chest pain Acute respiratory failure Hypokalemia Plan: Acute limb ischemia, heavy thrombus in the distal SFA and large thrombus in the proximal SFA, status post TNK injection and heparin then balloon angioplasty, reestablishment of the flow, palpable pedal pulse at this time, cyanosis of the toes, continue on Plavix and Xarelto New onset atrial fibrillation, most probably paroxysmal atrial fibrillation and had it in the past which caused the embolization to his leg. He is started on oral anticoagulation and on Cardizem drip, was hypotensive and started on pressors, currently off pressors, heart rate is better controlled at this time. Continue on current medication monitor. Currently in sinus rhythm. Acute respiratory failure, pneumonia and lung mass, managed by Dr. Eugene. Intubated due to acute respiratory distress. Chest pain, resembling angina, no previous cardiac history, continue to monitor at this time Left upper lobe mass, high suspicion of malignancy, consult Dr. Eugene History of head trauma about 2 years ago, was in coma for about a month. Has been on disability. Cannot tolerate thrombolytics Tobaccoism, stopped smoking 3 weeks ago, encouraged to continue with smoking cessation Anemia, monitor H&H, I will start him on iron supplement Thank you for your consultation. Please call me if you have any questions. Winston Domingo MD, FACP, FACC, [facility] [place], [place] Interventional Cardiology Cardiac Electrophysiology Vascular Medicine and Endovascular Interventions Steven DOMINGO MD January 17, 2020 21:11
[2020-01-17] MEDS: MELATONIN 3 MG TABLET PO SCH (21:20)
[2020-01-18] VITALS (30 sets, daily range): BP systolic 74–142; BP diastolic 48–70
[2020-01-18] MEDS: LACTATED RINGERS 1,000 ML IV SCH ×3 (01:03→18:48)
[2020-01-18] MEDS: methylPREDNISolone 40 MG/ML (Solu-MEDROL) VIAL IV SCH ×4 (01:13→17:06)
[2020-01-18] MEDS: inSUlin ASPART (NovoLOG) 1 UNIT/0.01 ML (CHARGE PER UNIT) SC SCH ×5 (01:17→23:36)
[2020-01-18] MEDS: RT-ALBUTEROL/IPRATROPIUM 3 ML (DUONEB) VIAL INH SCH ×6 (02:55→22:09)
[2020-01-18] MEDS: aCETylcysteine 20% (MUCOMYST) 30ML SOLN VIAL INH SCH ×6 (02:55→22:09)
[2020-01-18] MEDS: PIPERACILLIN/TAZO 4.5 GM/NS 100 ML IV SCH ×6 (03:30→18:08)
[2020-01-18] MEDS: PROPOFOL DRIP (ICU) 100 ML IV SCH ×2 (03:31→13:35)
[2020-01-18 03:39] LABS: BASOPHILS % (AUTO) 0 % (0-10); EOSINOPHILS % (AUTO) 0 % (0-10); HEMATOCRIT 26 % (40-54); HEMOGLOBIN 8.2 G/DL (13.3-17.7); LYMPHOCYTES # (AUTO) 0.5 X 10^3 (1.0-4.0); LYMPHOCYTES % (AUTO) 5 % (12-44); MEAN CORPUSCULAR HEMOGLOBIN 31 PG (25-34); MEAN CORPUSCULAR HGB CONC 32 G/DL (32-36); MEAN CORPUSCULAR VOLUME 97 FL (80-99); MEAN PLATELET VOLUME 9.9 FL (7.4-10.4); MONOCYTES # (AUTO) 0.4 X 10^3 (0.0-1.0); MONOCYTES % (AUTO) 4 % (0-12); NEUTROPHILS # (AUTO) 8.7 X 10^3 (1.8-7.8); NEUTROPHILS % (AUTO) 91 % (42-75); PLATELET COUNT 394 10^3/uL (130-400); RED CELL DISTRIBUTION WIDTH 14.9 % (10.0-14.5); WHITE BLOOD COUNT 9.6 10^3/uL (4.3-11.0)
[2020-01-18 03:40] LABS: ABG BASE EXCESS 11.5 MMOL/L (-2.5-2.5); ABG OXYGEN SATURATION 97 % (94-100); ABG PCO2 47 MMHG (35-45); ABG PH 7.49 (7.37-7.43); ABG PO2 90 MMHG (79-93); ABG TCO2 36.9 MMOL/L (21.0-31.0)
[2020-01-18 03:43] LABS: ALLENS TEST ART LINE; INSPIRED O2 38%; PATIENT TEMP 37.1; VENTILATOR YES
[2020-01-18 03:49] LABS: CHLORIDE 101 MMOL/L (98-107)
[2020-01-18 03:50] LABS: SODIUM 141 MMOL/L (135-145)
[2020-01-18 03:51] LABS: CALCIUM 7.6 MG/DL (8.5-10.1); GLUCOSE 118 MG/DL (70-105)
[2020-01-18 03:53] LABS: CARBON DIOXIDE 32 MMOL/L (21-32)
[2020-01-18 03:55] LABS: CREATININE SERUM 0.45 MG/DL (0.60-1.30); GFR ESTIMATED > 60; PHOSPHORUS 3.6 MG/DL (2.3-4.7)
[2020-01-18 03:56] LABS: BUN/CREATININE RATIO 36
[2020-01-18 03:57] LABS: MAGNESIUM 1.9 MG/DL (1.6-2.4)
[2020-01-18] MEDS: NOREPINEPHRINE 4 MG/250 ML 250 ML IV SCH (05:32)
[2020-01-18] MEDS: NS IV 1000 ML 1,000 ML IV SCH ×2 (05:32→14:13)
[2020-01-18] MEDS: POTASSIUM CL 10MEQ/50ML IVPB 50 ML IV SCH (05:32)
[2020-01-18] MEDS: MAGNESIUM 1 GM/100 ML IVPB 100 ML IV SCH (05:33)
[2020-01-18] MEDS: KCL 20 MEQ TAB (K-DUR) PO SCH (05:33)
--- NOTE | 2020-01-18 06:05 | Pulmonary Progress Note ---
Subjective Time Seen by a Provider: 06:01 Subjective/Events-last exam Pt is sedated on vent. Sepsis Event Evaluation Height, Weight, BMI Height: '" Weight: lbs. oz. kg; 16.01 BMI Method: Exam Exam Vital Signs Date Time Temp Pulse Resp B/P (MAP) Pulse Ox O2 Delivery O2 Flow Rate FiO2 01/18/20 04:00 37.1 01/18/20 04:00 Mechanical Ventilator 38 01/18/20 03:31 112/56 01/18/20 03:00 66 16 112/58 (76) 94 Mechanical Ventilator 38.00 01/18/20 02:55 67 16 96 38 01/18/20 02:00 69 16 116/59 (78) 97 Mechanical Ventilator 45.00 01/18/20 01:00 71 15 105/56 (72) 96 Mechanical Ventilator 45.00 01/18/20 01:00 71 01/18/20 00:00 Mechanical Ventilator 45 01/18/20 00:00 76 17 102/56 (71) 97 Mechanical Ventilator 45.00 01/18/20 00:00 36.8 01/17/20 23:00 74 19 107/54 (71) 96 Mechanical Ventilator 45.00 01/17/20 22:30 Mechanical Ventilator 45.00 01/17/20 22:26 75 17 92 45 01/17/20 22:00 67 17 118/52 (74) 94 Mechanical Ventilator 40.00 01/17/20 21:00 71 15 110/51 (70) 93 Mechanical Ventilator 40.00 01/17/20 20:00 Mechanical Ventilator 45 01/17/20 20:00 76 16 105/46 (65) 93 Mechanical Ventilator 40.00 01/17/20 20:00 36.6 01/17/20 19:00 73 20 108/49 (68) 91 Mechanical Ventilator 40.00 01/17/20 19:00 72 01/17/20 18:44 Mechanical Ventilator 40.00 01/17/20 18:35 55 18 97 50 01/17/20 18:00 53 110/52 (71) 96 Mechanical Ventilator 50.00 01/17/20 17:00 65 15 115/56 (75) 96 Mechanical Ventilator 50.00 01/17/20 16:19 Mechanical Ventilator 50 01/17/20 16:06 36.0 01/17/20 16:00 69 113/53 01/17/20 15:00 70 22 118/52 (74) 94 Mechanical Ventilator 50.00 01/17/20 14:00 67 39 114/64 (81) 91 Mechanical Ventilator 50.00 01/17/20 13:49 50.00 01/17/20 13:43 78 21 90 50 01/17/20 13:00 81 17 83/46 (58) 95 Mechanical Ventilator 60.00 01/17/20 12:53 86 01/17/20 12:00 90 24 104/55 (71) 93 Mechanical Ventilator 80.00 01/17/20 12:00 Mechanical Ventilator 80 01/17/20 11:38 36.2 01/17/20 10:25 Mechanical Ventilator 80.00 01/17/20 10:19 73 24 98 90 01/17/20 10:00 68 34 136/73 (94) 99 Mechanical Ventilator 90.00 01/17/20 09:02 76 97/73 01/17/20 09:01 86 29 95 100 01/17/20 09:00 79 24 101/75 (84) 97 Mechanical Ventilator 100.00 01/17/20 08:30 Mechanical Ventilator 100 01/17/20 08:29 87 94/73 01/17/20 08:00 88 24 102/73 (83) 97 Mechanical Ventilator 100.00 01/17/20 07:33 36.1 01/17/20 07:17 Vapotherm 35.00 60.00 01/17/20 07:00 71 01/17/20 07:00 90 22 104/72 (83) Vapotherm 25.00 55.00 01/17/20 06:16 92 Vapotherm 25.00 50 I & O 01/18/20 07:00 Intake Total 4070 ml Output Total 2000 ml Balance 2070 ml Height & Weight Height: '" Weight: lbs. oz. kg; 16.01 BMI Method: General Appearance: No Apparent Distress, Chronically ill, Cachetic HEENT: PERRL/EOMI, TMs Normal, Normal ENT Inspection Neck: Normal Inspection, Supple Respiratory: Lungs Clear, Normal Breath Sounds, No Respiratory Distress, Other (Intubated and mechanically ventilated) Cardiovascular: Regular Rate, Rhythm, No Murmur Capillary Refill: Less Than 3 Seconds Gastrointestinal: normal bowel sounds, non tender, soft Extremity: Pedal Edema, Slow Capillary Refill, Swelling, Other (Discoloration of toes on right foot) Neurologic/Psychiatric: Alert, Oriented x3, Normal Mood/Affect Skin: Cool, Pallor, Other (Toes discolored right foot) Lymphatic: No Adenopathy Results Lab Laboratory Tests 01/17/20 03:13 01/18/20 03:29 Assessment/Plan Assessment/Plan Acute on chronic respiratory failure -Change Vt to 400 and Peep to 8 -Decrease TF to 20cc/hr PNA -- possible post obstructive pneumonia r/o cancer -Pt is currently on Vapotherm -- requiring 55% - solumedrol 40 Q 6 -Continue zosyn -MRSA is negative -CPT, and mucomyst to SVNS -Pt is on xeralto, and plavix -Will give 40 of lasix x 1 -Check cultures -COVID is negative -MRSA and influenza -- is negative -Check RVP Afib RVR now converted -Currently on Cardizem Acute occlusion of artery of right lower extremity s/p abdominal aorta gram with TPA via cath anemia -monitor - protonix Tobacco use with probable COPD JENI DENISE DO January 18, 2020 06:05
[2020-01-18] MEDS: DexMEDEtomidine 250 ML DRIP 250 ML IV SCH ×2 (06:38→17:07)
[2020-01-18] MEDS: DOCUSATE SODIUM 100 MG (COLACE) CAP PO SCH ×2 (07:15→20:41)
--- NOTE | 2020-01-18 07:30 | NUR ---
T.F. RESIDUAL APPROX 45ML.
--- NOTE | 2020-01-18 07:38 | NUR ---
ATTEMPTED TO CONTACT PT'S BROTHER TO UPDATE HIM ON PT, NO ANSWER. ATTEMPTED TO CALL PT'S FRIEND RICK WHO IS LISTED ANOTHER EMERGENCY CONTACT, NO ANSWER.
--- NOTE | 2020-01-18 07:52 | NUR ---
PT HAS DECREASED LUNG SOUNDS BILAT WHEN COMPARED TO YESTERDAY, VENT ALARMS SAYING DECREASED TV (RT HAS BEEN IN ROOM AND ASSESSED), PT HAS TEMP OF 100.0. THIS RN CALLED AND INFORMED DR DENISE OF THE ABOVE.
[2020-01-18] MEDS: LACTULOSE SYRUP 10GM/15ML (ENULOSE) 30ML UDC PO SCH ×2 (07:54→20:41)
[2020-01-18] MEDS: PANTOPRAZOLE 40 MG (PROTONIX) VIAL IV SCH (07:54)
[2020-01-18] MEDS: FERROUS SULF 325 MG (IRON) TAB PO SCH ×3 (07:55→17:06)
[2020-01-18] MEDS: meTOprolol TARTRATE 25 MG (LOPRESSOR) TABLET PO SCH ×2 (07:55→20:41)
[2020-01-18] MEDS: CLOPIDOGREL 75 MG (PLAVIX) TABLET PO SCH (07:55)
[2020-01-18] MEDS: NICOTINE 14 MG (NICODERM) PATCH TD SCH (07:55)
[2020-01-18] MEDS: FOLIC ACID 1 MG TAB PO SCH (07:55)
[2020-01-18] MEDS: MULTIVIT W/MINERALS TAB (THERAGRAN M) PO SCH (07:55)
[2020-01-18] MEDS: DIGOXIN 0.25 MG (LANOXIN) TAB PO SCH (07:55)
[2020-01-18] MEDS: guaiFENesin (MUCINEX) 600 MG TAB PO SCH ×2 (07:55→20:41)
[2020-01-18] MEDS: AZITHROMYCIN 250 MG TAB (ZITHROMAX) PO SCH (07:55)
[2020-01-18] MEDS: SENNA W/DOCUSATE (SENOKOT S) TABLET PO SCH ×2 (07:55→20:41)
[2020-01-18] MEDS: NICOTINE PATCH REMOVAL TP SCH (07:56)
--- NOTE | 2020-01-18 08:05 | NUR ---
PT AWAKE AND ANSWERING YES/NO QUESTIONS WHILE ON THE VENT. PT WROTE ON PIECE OF PAPER "." THIS RN ASKED PT IF HE WAS WANTING TO , PT SHOOK HEAD YES. ATTEMPTED TO CALL PT'S BROTHER, NO ANSWER. DR DENISE INFORMED OF THE CONVERSATION WITH PT AND NEW ORDERS RECEIVED FOR FENTANYL DRIP. DR DUONG UPDATED WELL.
--- NOTE | 2020-01-18 08:32 | Diagnostic Imaging Report ---
Indication: Dyspnea. Comparison: 01/17/2020. Discussion: 2 upright frontal views of the chest were obtained. Mildly improved aeration of the left lung and, to a lesser degree, the right lung. Nonspecific consolidation within the left midlung with focal pleural thickening is again noted though the surrounding lung is better aerated. Decreasing groundglass infiltrates within the right midlung. Interstitial thickening within the right lung base is stable. No abnormal pleural fluid or pneumothorax. Normal heart size. Stable endotracheal tube, enteric tube, and left-sided central venous catheter. Impression: 1. Improved aeration of the lungs as described. 2. Stable support lines and catheter. Dictated by: Dictated on workstation # [id number]
[2020-01-18] MEDS ORDERED: DOCUSATE SODIUM 100 MG (COLACE) CAP PO SCH (09:00)
[2020-01-18] MEDS: fentaNYL INJECTION 1,250 MCG in NS (IVPB) 250 ML IV SCH (09:28)
--- NOTE | 2020-01-18 11:23 | Progress Note - Hospitalist ---
Subjective HPI/CC On Admission Date Seen by Provider: January 18, 2020 Time Seen by Provider: 09:10 Moshe Soto is a 59-year-old male with past medical history of tobacco abuse who presented with fever and shortness of breath. He also reports having a cough. He denies any chest pain. He denies any nausea, vomiting, or abdominal pain. He denies any diarrhea. He denies any dysuria. He has no other complaints or concerns. He denies any recent travel. He denies any sick contacts. Subjective/Events-last exam He remains intubated and sedated. Objective Exam Vital Signs Vital Signs Date Time Temp Pulse Resp B/P (MAP) Pulse Ox O2 Delivery O2 Flow Rate FiO2 01/18/20 11:00 92 34 114/59 (77) 90 Mechanical Ventilator 35.00 01/18/20 10:46 37.7 01/18/20 10:35 35 Capillary Refill : Less Than 3 SecondsLess Than 3 Seconds General Appearance: No Apparent Distress, Chronically ill, Cachetic, Other (Intubated and sedated) Neck: Normal Inspection, Supple Respiratory: No Respiratory Distress, Decreased Breath Sounds, Other (Intubated and mechanically ventilated) Cardiovascular: No Murmur, Tachycardia (Regular rhythm) Gastrointestinal: Normal Bowel Sounds, Soft Extremity: Normal Inspection, Pedal Edema Neurologic/Psychiatric: Other (Sedated) Skin: Normal Color, Warm/Dry Results/Procedures Lab Laboratory Tests 01/18/20 03:29 Patient resulted labs reviewed. Imaging: Reviewed Imaging Report Assessment/Plan Assessment and Plan Assess & Plan/Chief Complaint Severe sepsis Pneumonia Acute respiratory failure with hypoxia Endotracheally intubated Possible left upper lobe mass Likely COPD Tobacco abuse Intubated this morning due to worsening hypoxia Pulmonology consulted, appreciate assistance COVID negative, flu negative Procal has returned to normal continue Zosyn Sputum culture pending Atrial fibrillation with rapid ventricular response Acute occlusion of artery of right lower extremity due to thromboembolism Cardiology consulted, appreciate assistance Underwent emergent angiogram with thrombolytics and balloon angioplasty 01/12 Continue Plavix and Xarelto Iron deficiency anemia Anemia of chronic disease Folic acid deficiency Hemoglobin 8.2, stable Iron studies consistent with both iron deficiency and anemia of chronic disease Folic acid level low Continue folic acid and iron supplementation Fecal occult blood positive Will need a colonoscopy at some point, likely outpatient Severe protein calorie malnutrition Started on continuous tube feeds with intermittent free water boluses Dietary consulted DVT prophylaxis: Already receiving therapeutic anticoagulation Shock, resolved Diagnosis/Problems Diagnosis/Problems (1) Acute occlusion of artery of lower extremity due to thromboembolism Status: Acute (2) Severe sepsis Status: Acute (3) Pneumonia Status: Acute (4) COPD (chronic obstructive pulmonary disease) Status: Chronic (5) Tobacco abuse Status: Chronic (6) Acute respiratory failure with hypoxia Status: Acute (7) Lung mass Status: Acute (8) Atrial fibrillation with rapid ventricular response Status: Acute (9) Shock Status: Resolved Resolution Date/Time: 01/15/20 @ 11:14 (10) Iron deficiency anemia Status: Chronic (11) Anemia of chronic disease Status: Chronic (12) Folic acid deficiency Status: Chronic (13) Severe protein-calorie malnutrition Status: Acute Clinical Quality Measures DVT/VTE Risk/Contraindication: Risk Factor Score Per Nursin RFS Level Per Nursing on Admit: 4+=Very High CLAU DUONG MD January 18, 2020 11:23
--- NOTE | 2020-01-18 11:30 | NUR ---
PT'S BROTHER BENNY CALLED THIS RN BACK, UPDATED BROTHER ON PT'S STATUS. BENNY PHONE NUMBER GIVEN TO DR DUONG FOR TO CALL.
--- NOTE | 2020-01-18 11:50 | NUR ---
DR DUONG CALLED THIS RN AFTER SPEAKING W/ BENNY, NO NEW ORDERS RECEIVED TO CHANGE PT TO DNR STATUS.
[2020-01-18] MEDS: dilTIAZem DRIP PRE-MIX 125 ML IV SCH (12:46)
[2020-01-18] MEDS: RIVAROXABAN 20 MG TABLET (XARELTO) PO SCH (17:06)
[2020-01-19] VITALS (30 sets, daily range): BP systolic 61–140; BP diastolic 48–72
[2020-01-19] MEDS: methylPREDNISolone 40 MG/ML (Solu-MEDROL) VIAL IV SCH ×5 (00:47→23:25)
[2020-01-19] MEDS: NS IV 1000 ML 1,000 ML IV SCH (00:48)
[2020-01-19] MEDS: PIPERACILLIN/TAZO 4.5 GM/NS 100 ML IV SCH ×6 (02:11→17:33)
[2020-01-19] MEDS: aCETylcysteine 20% (MUCOMYST) 30ML SOLN VIAL INH SCH ×6 (02:23→21:56)
[2020-01-19] MEDS: RT-ALBUTEROL/IPRATROPIUM 3 ML (DUONEB) VIAL INH SCH ×6 (02:23→21:56)
[2020-01-19 03:31] LABS: ABG BASE EXCESS 10.5 MMOL/L (-2.5-2.5); ABG OXYGEN SATURATION 96 % (94-100); ABG PCO2 48 MMHG (35-45); ABG PH 7.47 (7.37-7.43); ABG PO2 91 MMHG (79-93); ABG TCO2 36.4 MMOL/L (21.0-31.0); BASOPHILS % (AUTO) 0 % (0-10); EOSINOPHILS % (AUTO) 0 % (0-10); HEMATOCRIT 26 % (40-54); HEMOGLOBIN 8.1 G/DL (13.3-17.7); LYMPHOCYTES # (AUTO) 0.4 X 10^3 (1.0-4.0); LYMPHOCYTES % (AUTO) 5 % (12-44); MEAN CORPUSCULAR HEMOGLOBIN 30 PG (25-34); MEAN CORPUSCULAR HGB CONC 31 G/DL (32-36); MEAN CORPUSCULAR VOLUME 97 FL (80-99); MEAN PLATELET VOLUME 9.7 FL (7.4-10.4); MONOCYTES # (AUTO) 0.3 X 10^3 (0.0-1.0); MONOCYTES % (AUTO) 4 % (0-12); NEUTROPHILS # (AUTO) 6.9 X 10^3 (1.8-7.8); NEUTROPHILS % (AUTO) 91 % (42-75); PLATELET COUNT 456 10^3/uL (130-400); RED CELL DISTRIBUTION WIDTH 15.2 % (10.0-14.5); WHITE BLOOD COUNT 7.6 10^3/uL (4.3-11.0)
[2020-01-19 03:32] LABS: ALLENS TEST ART LINE
[2020-01-19 03:33] LABS: INSPIRED O2 35%; PATIENT TEMP 36.4; VENTILATOR YES
[2020-01-19] MEDS: DexMEDEtomidine 250 ML DRIP 250 ML IV SCH ×2 (03:57→16:05)
[2020-01-19] MEDS: PROPOFOL DRIP (ICU) 100 ML IV SCH ×2 (03:57→16:05)
[2020-01-19 04:14] LABS: BUN/CREATININE RATIO 37; CALCIUM 7.5 MG/DL (8.5-10.1); CARBON DIOXIDE 30 MMOL/L (21-32); CHLORIDE 101 MMOL/L (98-107); CREATININE SERUM 0.43 MG/DL (0.60-1.30); GFR ESTIMATED > 60; GLUCOSE 157 MG/DL (70-105); PHOSPHORUS 3.5 MG/DL (2.3-4.7); SODIUM 138 MMOL/L (135-145); TRIGLYCERIDES 121 MG/DL (<150)
[2020-01-19] MEDS ORDERED: FUROSEMIDE 40 MG/4 ML INJ (LASIX) IVP ONE (05:00)
--- NOTE | 2020-01-19 05:01 | Pulmonary Progress Note ---
Subjective Time Seen by a Provider: 04:59 Subjective/Events-last exam Pt is sedated on vent. Sepsis Event Evaluation Height, Weight, BMI Height: '" Weight: lbs. oz. kg; 16.01 BMI Method: Exam Exam Vital Signs Date Time Temp Pulse Resp B/P (MAP) Pulse Ox O2 Delivery O2 Flow Rate FiO2 01/19/20 04:00 36.4 01/19/20 04:00 Mechanical Ventilator 35 01/19/20 03:57 82 01/19/20 03:57 116/58 01/19/20 02:24 61 16 94 35 01/19/20 02:00 66 16 123/62 (82) 95 Mechanical Ventilator 35.00 01/19/20 01:00 74 12 130/66 (87) 95 Mechanical Ventilator 35.00 01/19/20 01:00 74 01/19/20 00:00 36.9 01/19/20 00:00 77 16 140/71 (94) 95 Mechanical Ventilator 35.00 01/19/20 00:00 Mechanical Ventilator 35 01/18/20 23:00 77 11 141/70 (93) 93 Mechanical Ventilator 35.00 01/18/20 22:09 75 16 95 35 01/18/20 22:00 75 13 139/69 (92) 94 Mechanical Ventilator 35.00 01/18/20 21:00 84 21 127/64 (85) 94 Mechanical Ventilator 35.00 01/18/20 20:00 75 16 142/62 (88) 94 Mechanical Ventilator 35.00 01/18/20 20:00 37.0 01/18/20 20:00 Mechanical Ventilator 35 01/18/20 19:00 75 16 141/62 (88) 93 Mechanical Ventilator 35.00 01/18/20 19:00 75 01/18/20 18:33 73 16 94 35 01/18/20 18:00 78 16 133/61 (85) 95 Mechanical Ventilator 35.00 01/18/20 17:07 80 116/53 01/18/20 17:00 80 16 118/53 (74) 94 Mechanical Ventilator 35.00 01/18/20 16:00 36.8 01/18/20 16:00 80 24 121/57 (78) 93 Mechanical Ventilator 35.00 01/18/20 15:04 Mechanical Ventilator 35 01/18/20 15:00 79 30 128/62 (84) 94 Mechanical Ventilator 35.00 01/18/20 14:24 80 21 93 35 01/18/20 14:00 80 32 112/54 (73) 97 Mechanical Ventilator 35.00 01/18/20 13:35 90 102/51 01/18/20 13:00 89 115/57 (76) 95 Mechanical Ventilator 35.00 01/18/20 12:24 95 01/18/20 12:00 37.1 01/18/20 12:00 96 103/52 (69) 93 Mechanical Ventilator 35.00 01/18/20 12:00 Mechanical Ventilator 35 01/18/20 11:00 92 34 114/59 (77) 90 Mechanical Ventilator 35.00 01/18/20 10:46 37.7 01/18/20 10:35 82 19 92 35 01/18/20 10:05 Mechanical Ventilator 35.00 01/18/20 10:00 86 18 116/58 (77) 94 Mechanical Ventilator 40.00 01/18/20 09:00 99 15 98/66 (77) 93 Mechanical Ventilator 40.00 01/18/20 08:00 Mechanical Ventilator 38 01/18/20 08:00 37.8 01/18/20 08:00 108 38 96/48 (64) 95 Mechanical Ventilator 40.00 01/18/20 07:40 Mechanical Ventilator 40.00 01/18/20 07:15 107 18 91 40 01/18/20 07:00 97 28 112/54 (73) 92 Mechanical Ventilator 38.00 01/18/20 07:00 104 01/18/20 06:38 93 01/18/20 06:00 89 23 105/54 (71) 93 Mechanical Ventilator 38.00 01/18/20 05:00 83 23 104/55 (71) 94 Mechanical Ventilator 38.00 I & O 01/19/20 07:00 Intake Total 1860 ml Output Total 680 ml Balance 1180 ml Height & Weight Height: '" Weight: lbs. oz. kg; 16.01 BMI Method: General Appearance: No Apparent Distress, Chronically ill, Cachetic, Other (Intubated and sedated) HEENT: PERRL/EOMI, TMs Normal, Normal ENT Inspection Neck: Normal Inspection, Supple Respiratory: No Respiratory Distress, Decreased Breath Sounds, Other (Intubated and mechanically ventilated) Cardiovascular: No Murmur, Tachycardia (Regular rhythm) Capillary Refill: Less Than 3 Seconds Gastrointestinal: normal bowel sounds, non tender, soft Extremity: Normal Inspection, Pedal Edema Neurologic/Psychiatric: Other (Sedated) Skin: Normal Color, Warm/Dry Lymphatic: No Adenopathy Results Lab Laboratory Tests 01/18/20 03:29 01/19/20 03:22 Assessment/Plan Assessment/Plan Acute on chronic respiratory failure -decrease Vt to 350 and Peep to 8 -keep TF at 20cc/hr PNA -- possible post obstructive pneumonia r/o cancer -will need repeat CT scan 8wks after discharge - solumedrol 40 Q 6 -Continue zosyn -MRSA is negative -CPT, and mucomyst to SVNS -Pt is on xeralto, and plavix -repeat 40 of lasix x 1 -Check cultures -COVID is negative -MRSA and influenza -- is negative -RVP Acute occlusion of artery of right lower extremity s/p abdominal aorta gram with TPA via cath anemia -monitor - protonix Tobacco use with probable COPD JENI DENISE DO January 19, 2020 05:01
[2020-01-19] MEDS: POTASSIUM CL 10MEQ/50ML IVPB 50 ML IV SCH ×5 (05:23→07:23)
[2020-01-19] MEDS: MAGNESIUM 1 GM/100 ML IVPB 100 ML IV SCH (05:23)
[2020-01-19] MEDS: KCL 20 MEQ TAB (K-DUR) PO SCH (05:24)
[2020-01-19] MEDS: inSUlin ASPART (NovoLOG) 1 UNIT/0.01 ML (CHARGE PER UNIT) SC SCH ×4 (05:26→23:28)
[2020-01-19 06:35] LABS: ABG BASE EXCESS 12.7 MMOL/L (-2.5-2.5); ABG OXYGEN SATURATION 94 % (94-100); ABG PCO2 46 MMHG (35-45); ABG PH 7.51 (7.37-7.43); ABG PO2 74 MMHG (79-93); ABG TCO2 38.5 MMOL/L (21.0-31.0)
[2020-01-19 06:36] LABS: ALLENS TEST ART LINE; INSPIRED O2 35%; PATIENT TEMP 35.6; VENTILATOR YES
--- NOTE | 2020-01-19 08:15 | Diagnostic Imaging Report ---
INDICATION: Atrial fibrillation, RVR. Status post heart catheterization EXAMINATION: Chest 01/19/2020 COMPARISON: 01/18/2020 FINDINGS: Heart is prominent. Pulmonary vasculature is congested. Persistent infiltrate in the left midlung with lungs hyperinflated. There is a density in the peripheral right midlung slightly improved. Left base infiltrate and effusion suspected and increased or new since previous. No pneumothorax. There is a feeding tube coursing beneath the diaphragm. A left central line tip is stable. ET tube tip unchanged. IMPRESSION: 1. Persistent bilateral infiltrates slightly improved on the right with a new left base infiltrate developing. A small adjacent effusion not excluded. Other findings as above. Dictated by: Dictated on workstation # [id number]
--- NOTE | 2020-01-19 08:38 | Occ Therapy Progress Note ---
Therapy Progress Note Pt. is currently sedated and on ventilator support. Will continue to monitor and re-assess pt. when medically stable. [id number] REGGIE GARCIA OT January 19, 2020 08:38
--- NOTE | 2020-01-19 08:46 | Progress Note - Hospitalist ---
Subjective HPI/CC On Admission Date Seen by Provider: January 19, 2020 Time Seen by Provider: 08:41 Moshe Soto is a 59-year-old male with past medical history of tobacco abuse who presented with fever and shortness of breath. He also reports having a cough. He denies any chest pain. He denies any nausea, vomiting, or abdominal pain. He denies any diarrhea. He denies any dysuria. He has no other complaints or concerns. He denies any recent travel. He denies any sick contacts. Subjective/Events-last exam Pt remains intubated and sedated. No complaints. Objective Exam Vital Signs Vital Signs Date Time Temp Pulse Resp B/P (MAP) Pulse Ox O2 Delivery O2 Flow Rate FiO2 01/19/20 08:00 75 13 103/55 (71) 95 Mechanical Ventilator 35.00 84/66 (72) 01/19/20 07:27 36.2 01/19/20 06:06 35 Capillary Refill : Less Than 3 SecondsLess Than 3 Seconds General Appearance: Chronically ill, Cachetic, Other (intubated) Respiratory: No Respiratory Distress, Rhonci Gastrointestinal: Normal Bowel Sounds, Non Tender, Soft Extremity: Swelling (upper and lower extremities) Neurologic/Psychiatric: Oriented x3 Results/Procedures Lab Laboratory Tests 01/19/20 03:22 Patient resulted labs reviewed. Imaging: Reviewed Imaging Report Assessment/Plan Assessment and Plan Assess & Plan/Chief Complaint Severe sepsis Pneumonia Acute respiratory failure with hypoxia Endotracheally intubated Possible left upper lobe mass Likely COPD Tobacco abuse Remains intubated Pulmonology consulted, appreciate assistance COVID negative at outside facility, flu negative Procal now normal continue Zosyn and Solu-Medrol Sputum culture pending still Atrial fibrillation with rapid ventricular response Acute occlusion of artery of right lower extremity due to thromboembolism Cardiology consulted, appreciate assistance Underwent emergent angiogram with thrombolytics and balloon angioplasty 01/12 Continue Plavix and Xarelto Iron deficiency anemia Anemia of chronic disease Folic acid deficiency Hemoglobin 8.1, stable Iron studies consistent with both iron deficiency and anemia of chronic disease - Replete with Infed when more stable Folic acid level low Continue folic acid and iron supplementation Fecal occult blood positive Will need a colonoscopy at some point, likely outpatient Severe protein calorie malnutrition Started on continuous tube feeds with intermittent free water boluses Dietary consulted DVT prophylaxis: Already receiving therapeutic anticoagulation Clinical Quality Measures DVT/VTE Risk/Contraindication: Risk Factor Score Per Nursin RFS Level Per Nursing on Admit: 4+=Very High BLANE JAIN MD January 19, 2020 08:46
[2020-01-19] MEDS: FOLIC ACID 1 MG TAB PO SCH (08:53)
[2020-01-19] MEDS: FERROUS SULF 325 MG (IRON) TAB PO SCH ×2 (08:53→17:32)
[2020-01-19] MEDS: SENNA W/DOCUSATE (SENOKOT S) TABLET PO SCH ×2 (08:54→20:23)
[2020-01-19] MEDS: guaiFENesin (MUCINEX) 600 MG TAB PO SCH ×2 (08:54→20:23)
[2020-01-19] MEDS: DOCUSATE SODIUM 100 MG (COLACE) CAP PO SCH ×2 (08:54→20:23)
[2020-01-19] MEDS: CLOPIDOGREL 75 MG (PLAVIX) TABLET PO SCH (08:54)
[2020-01-19] MEDS: MULTIVIT W/MINERALS TAB (THERAGRAN M) PO SCH (08:54)
[2020-01-19] MEDS: DIGOXIN 0.25 MG (LANOXIN) TAB PO SCH (08:54)
[2020-01-19] MEDS: NICOTINE 14 MG (NICODERM) PATCH TD SCH (08:54)
[2020-01-19] MEDS: PANTOPRAZOLE 40 MG (PROTONIX) VIAL IV SCH (08:58)
[2020-01-19] MEDS: meTOprolol TARTRATE 25 MG (LOPRESSOR) TABLET PO SCH ×2 (08:58→20:23)
[2020-01-19] MEDS: NICOTINE PATCH REMOVAL TP SCH (08:59)
[2020-01-19] MEDS: LACTULOSE SYRUP 10GM/15ML (ENULOSE) 30ML UDC PO SCH ×2 (08:59→20:23)
--- NOTE | 2020-01-19 10:15 | Cardiology Progress Note ---
Subjective Date Seen by Provider: January 19, 2020 Time Seen by Provider: 09:00 Subjective/Events-last exam Patient intubated. Awake and able to nod head yes or no to questions asked. Denies any pain. Review of Systems General: Other (intubated, unable to provide review of systems) Objective-Cardiology Exam Last Set of Vital Signs Vital Signs 01/19/20 01/19/20 01/19/20 01/19/20 07:27 10:00 10:23 10:27 Temp 36.2 Pulse 68 Resp 20 B/P (MAP) 102/52 Pulse Ox 95 O2 Delivery Mechanical Ventilator O2 Flow Rate 35.00 FiO2 35 Capillary Refill : Less Than 3 SecondsLess Than 3 Seconds I&O Intake and Output 01/19/20 00:00 Intake Total 2430 ml Output Total 650 ml Balance 1780 ml IV Total 1090 ml Tube Feeding 1340 ml Output Urine Total 650 ml General: Alert, Cooperative, Severe Distress HEENT: Atraumatic, PERRLA Neck: Supple, No JVD, No Thyromegaly Lungs: Normal Air Movement, Other (bilateral rhonchi) Heart: Regular Rate, Normal S1, Normal S2, Other (systolic murmur) Abdomen: Normal Bowel Sounds, Soft, No Tenderness, No Hepatosplenomegaly, No Masses Extremities: No Clubbing, No Cyanosis, No Tenderness/Swelling, Other (mild edema) Skin: No Rashes, No Breakdown, No Significant Lesion Neuro: Normal Gait, Normal Speech, Strength at 5/5 X4 Ext, Normal Tone, Sensation Intact Psych/Mental Status: Mental Status NL, Mood NL Results Lab Laboratory Tests 01/19/20 03:22 A/P-Cardiology Admission Diagnosis Acute limb ischemia Chest pain Acute respiratory failure Hypokalemia Assessment/Plan Acute limb ischemia, heavy thrombus in the distal SFA and large thrombus in the proximal SFA, status post TNK injection and heparin then balloon angioplasty, reestablishment of the flow, palpable pedal pulse at this time, persistent cyanosis of the toes, maintained on Xarelto and Plavix New onset atrial fibrillation, most probably paroxysmal atrial fibrillation and had it in the past which caused the embolization to his leg. Currently back in sinus rhythm. Continue to monitor Acute respiratory failure, pneumonia and lung mass, managed by Dr. Eugene. Chest pain, resembling angina, no previous cardiac history, continue to monitor at this time Left upper lobe mass, high suspicion of malignancy, Dr. Eugene following History of head trauma about 2 years ago, was in coma for about a month. Has been on disability. Cannot tolerate thrombolytics Tobaccoism, stopped smoking 3 weeks ago, encouraged to continue with smoking cessation Anemia, monitor H&H, Patient was seen and evaluated with Stacie, examination performed, management plan was discussed, agree with the current scribed note, I made few changes to the note using Italic font Patient was seen at bedside, opening eyes, trying to follow commands Bilateral rhonchi, cyanosis of the toes Back in sinus rhythm, blood pressure is borderline low Continue supportive care, continue with antibiotics Clinical Quality Measures DVT/VTE Risk/Contraindication: Risk Factor Score Per Nursin RFS Level Per Nursing on Admit: 4+=Very High STACIE PATEL January 19, 2020 10:15 THERESA BELLAMY MD January 19, 2020 10:49
[2020-01-19] MEDS: NOREPINEPHRINE 4 MG/250 ML 250 ML IV SCH ×2 (10:27→18:53)
[2020-01-19] MEDS: fentaNYL INJECTION 1,250 MCG in NS (IVPB) 250 ML IV SCH ×2 (10:27→12:23)
--- NOTE | 2020-01-19 13:10 | Physical Therapy Progress Note ---
Therapy Progress Note Patient has been intubated again. He was sedated earlier this morning but is awake now but still intubated. We will need new evaluation orders to see patient. MARKO REID PT January 19, 2020 13:10
--- NOTE | 2020-01-19 13:28 | NUR ---
"Received dietary consult regarding pt's vent status. Est kcal needs: 5820-0068 kcal | 25-30 kcal/kg Est Pro needs: 65-77 g Pro | 1.0-1.2 g Pro/kg Note pt currently receiving Jevity 1.5 at rate of 20ml/hr, with flushes of 100ml free water q4h. Would recommend the following: Continuation of TF of Jevity 1.5 at rate of 20ml/hr, with continuation toward goal rate of 45ml/hr. Would recommend increasing by 10ml q6h as medically able and as tolerated. Monitor gastric residuals for tolerance. At goal rate, provides 1620 kcal (25 kcal/kg); 69 g Pro (1.1 g Pro/kg); and 821ml free water. Flush with 100ml H2O q4h for hydration status. With flushes, provides 1421ml free water. Will continue to follow and reassess as pt needs, intake, and status change. Doug Nunez, MS, RD, LD [phone]"
[2020-01-19] MEDS: RIVAROXABAN 20 MG TABLET (XARELTO) PO SCH (17:32)
--- NOTE | 2020-01-19 18:16 | NUR ---
TUBE FEEDING RESIDUAL NOTED AT 25ML
[2020-01-20] VITALS (23 sets, daily range): BP systolic 99–135; BP diastolic 47–68
[2020-01-20] MEDS: NOREPINEPHRINE 4 MG/250 ML 250 ML IV SCH (00:17)
[2020-01-20] MEDS: PIPERACILLIN/TAZO 4.5 GM/NS 100 ML IV SCH ×6 (01:35→17:50)
[2020-01-20] MEDS: DexMEDEtomidine 250 ML DRIP 250 ML IV SCH (02:01)
[2020-01-20] MEDS: RT-ALBUTEROL/IPRATROPIUM 3 ML (DUONEB) VIAL INH SCH ×6 (02:02→21:27)
[2020-01-20] MEDS: aCETylcysteine 20% (MUCOMYST) 30ML SOLN VIAL INH SCH ×6 (02:02→21:27)
[2020-01-20] MEDS: PROPOFOL DRIP (ICU) 100 ML IV SCH (02:02)
[2020-01-20 03:04] LABS: ABG BASE EXCESS 11.2 MMOL/L (-2.5-2.5); ABG OXYGEN SATURATION 96 % (94-100); ABG PCO2 52 MMHG (35-45); ABG PH 7.45 (7.37-7.43); ABG PO2 86 MMHG (79-93); ABG TCO2 37.5 MMOL/L (21.0-31.0); BASOPHILS % (AUTO) 0 % (0-10); EOSINOPHILS % (AUTO) 0 % (0-10); HEMATOCRIT 26 % (40-54); HEMOGLOBIN 8.2 G/DL (13.3-17.7); LYMPHOCYTES # (AUTO) 0.5 X 10^3 (1.0-4.0); LYMPHOCYTES % (AUTO) 6 % (12-44); MEAN CORPUSCULAR HEMOGLOBIN 31 PG (25-34); MEAN CORPUSCULAR HGB CONC 31 G/DL (32-36); MEAN CORPUSCULAR VOLUME 97 FL (80-99); MEAN PLATELET VOLUME 9.7 FL (7.4-10.4); MONOCYTES # (AUTO) 0.4 X 10^3 (0.0-1.0); MONOCYTES % (AUTO) 5 % (0-12); NEUTROPHILS # (AUTO) 7.2 X 10^3 (1.8-7.8); NEUTROPHILS % (AUTO) 89 % (42-75); PLATELET COUNT 513 10^3/uL (130-400); RED CELL DISTRIBUTION WIDTH 14.9 % (10.0-14.5); WHITE BLOOD COUNT 8.1 10^3/uL (4.3-11.0)
[2020-01-20 03:07] LABS: ALLENS TEST ART LINE; INSPIRED O2 30%; PATIENT TEMP 36.5; VENTILATOR YES
[2020-01-20 03:26] LABS: CHLORIDE 98 MMOL/L (98-107); POTASSIUM 3.8 MMOL/L (3.6-5.0); SODIUM 137 MMOL/L (135-145)
[2020-01-20 03:27] LABS: CALCIUM 7.5 MG/DL (8.5-10.1); GLUCOSE 135 MG/DL (70-105)
[2020-01-20 03:29] LABS: CARBON DIOXIDE 33 MMOL/L (21-32)
[2020-01-20 03:31] LABS: GFR ESTIMATED > 60; PHOSPHORUS 3.2 MG/DL (2.3-4.7)
[2020-01-20 03:32] LABS: BUN/CREATININE RATIO 33
[2020-01-20 03:33] LABS: MAGNESIUM 2.2 MG/DL (1.6-2.4)
[2020-01-20] MEDS: MAGNESIUM 1 GM/100 ML IVPB 100 ML IV SCH (03:41)
[2020-01-20] MEDS: POTASSIUM CL 10MEQ/50ML IVPB 50 ML IV SCH (03:41)
[2020-01-20] MEDS: KCL 20 MEQ TAB (K-DUR) PO SCH (03:42)
[2020-01-20] MEDS: inSUlin ASPART (NovoLOG) 1 UNIT/0.01 ML (CHARGE PER UNIT) SC SCH ×4 (05:29→21:11)
[2020-01-20] MEDS: methylPREDNISolone 40 MG/ML (Solu-MEDROL) VIAL IV SCH ×4 (05:43→23:31)
[2020-01-20] MEDS: MULTIVIT W/MINERALS TAB (THERAGRAN M) PO SCH (05:44)
[2020-01-20] MEDS: FERROUS SULF 325 MG (IRON) TAB PO SCH ×2 (05:44→17:50)
--- NOTE | 2020-01-20 06:12 | Pulmonary Progress Note ---
Subjective Time Seen by a Provider: 06:11 Subjective/Events-last exam No complications noted. Sepsis Event Evaluation Height, Weight, BMI Height: '" Weight: lbs. oz. kg; 16.01 BMI Method: Exam Exam Vital Signs Date Time Temp Pulse Resp B/P (MAP) Pulse Ox O2 Delivery O2 Flow Rate FiO2 01/20/20 04:00 56 33 115/57 (76) 97 Mechanical Ventilator 30.00 01/20/20 03:30 36.6 Mechanical Ventilator 30.00 01/20/20 03:30 97 Mechanical Ventilator 30 01/20/20 03:00 55 27 130/64 (86) 97 Mechanical Ventilator 30.00 01/20/20 02:03 56 16 98 35 01/20/20 02:02 57 130/67 01/20/20 02:01 57 130/67 01/20/20 02:00 57 19 131/67 (88) 100 Mechanical Ventilator 30.00 01/20/20 01:00 60 01/20/20 01:00 56 28 134/68 (90) 98 Mechanical Ventilator 30.00 01/20/20 00:00 60 32 132/66 (88) 97 Mechanical Ventilator 30.00 01/19/20 23:55 99 Mechanical Ventilator 30 01/19/20 23:26 36.5 Mechanical Ventilator 30.00 01/19/20 23:00 60 30 132/67 (88) 99 Mechanical Ventilator 35.00 01/19/20 22:00 61 19 125/64 (84) 98 Mechanical Ventilator 35.00 01/19/20 21:57 61 25 99 35 01/19/20 21:00 63 28 121/60 (80) 98 Mechanical Ventilator 35.00 01/19/20 20:00 96 Mechanical Ventilator 35 01/19/20 20:00 36.4 01/19/20 20:00 64 16 133/62 (85) 96 Mechanical Ventilator 35.00 01/19/20 19:00 Mechanical Ventilator 35.00 01/19/20 19:00 65 01/19/20 19:00 64 15 132/61 (84) 95 Mechanical Ventilator 35.00 01/19/20 18:21 61 18 96 35 01/19/20 18:00 58 16 132/61 (84) 96 Mechanical Ventilator 35.00 01/19/20 17:00 61 16 128/59 (82) 97 Mechanical Ventilator 35.00 01/19/20 16:27 Mechanical Ventilator 35 01/19/20 16:05 61 134/62 01/19/20 16:05 61 134/62 01/19/20 16:00 36.4 01/19/20 16:00 63 21 135/62 (86) 95 Mechanical Ventilator 35.00 01/19/20 15:00 61 49 134/62 (86) 95 Mechanical Ventilator 35.00 01/19/20 14:43 63 19 95 35 01/19/20 14:00 61 48 124/58 (80) 97 Mechanical Ventilator 35.00 01/19/20 13:00 66 0 107/52 (70) 97 Mechanical Ventilator 35.00 01/19/20 13:00 65 01/19/20 12:35 Mechanical Ventilator 35 01/19/20 12:23 36.2 01/19/20 12:00 63 25 116/55 (75) 98 Mechanical Ventilator 35.00 01/19/20 11:14 36.2 01/19/20 11:00 65 109/55 (73) 97 Mechanical Ventilator 35.00 01/19/20 10:27 68 102/52 01/19/20 10:23 67 20 95 35 01/19/20 10:00 68 102/52 (69) 97 Mechanical Ventilator 35.00 01/19/20 09:00 67 13 114/61 (78) 95 Mechanical Ventilator 35.00 97/72 (80) 01/19/20 08:10 97 Mechanical Ventilator 35.00 01/19/20 08:00 75 13 103/55 (71) 95 Mechanical Ventilator 35.00 84/66 (72) 01/19/20 07:27 36.2 01/19/20 07:00 82 25 91/51 (64) 94 Mechanical Ventilator 35.00 80/63 (69) 01/19/20 07:00 82 I & O 01/20/20 07:00 Intake Total 2041 ml Output Total 3650 ml Balance -1609 ml Height & Weight Height: '" Weight: lbs. oz. kg; 16.01 BMI Method: General Appearance: Chronically ill, Cachetic, Other (intubated) HEENT: PERRL/EOMI, TMs Normal, Normal ENT Inspection Neck: Normal Inspection, Supple Respiratory: No Respiratory Distress, Rhonci Cardiovascular: No Murmur, Tachycardia (Regular rhythm) Capillary Refill: Less Than 3 Seconds Gastrointestinal: normal bowel sounds, non tender, soft Extremity: Swelling (upper and lower extremities) Neurologic/Psychiatric: Oriented x3 Skin: Normal Color, Warm/Dry Lymphatic: No Adenopathy Results Lab Laboratory Tests 01/19/20 03:22 01/20/20 02:50 Assessment/Plan Assessment/Plan Acute on chronic respiratory failure -decrease Vt to 350 and Peep to 8 -Wake pt up and wean vent -keep TF at 20cc/hr - hold TF PNA -- possible post obstructive pneumonia r/o cancer -will need repeat CT scan 8wks after discharge - solumedrol 40 Q 6 -Continue zosyn -MRSA is negative -CPT, and mucomyst to SVNS -Pt is on xeralto, and plavix -Check cultures -COVID is negative -MRSA and influenza -- is negative -RVP 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
--- NOTE | 2020-01-20 07:28 | Diagnostic Imaging Report ---
INDICATION: Ventilated patient. COMPARISON: 01/19/2020 FINDINGS: Single frontal radiographic view of the chest was obtained and demonstrates indwelling endotracheal tube with tip below the clavicular heads and above the semaj. Gastric tube extends inferiorly beyond the [id number]. Left subclavian central venous catheter is again noted with tip near cavoatrial junction. Cardiac silhouette and pulmonary vasculature are stable. Lungs show interval improved depth of inspiration. There are, however persistent scattered patchy and confluent infiltrates greatest within the right lung base and left perihilar region. No pneumothorax is seen. IMPRESSION: 1. Improved lung volumes, but with otherwise stable exam of the chest showing bilateral infiltrates. Continued follow-up is advised. 2. Lines and tubes as above. Dictated by: Dictated on workstation # [id number]
[2020-01-20 07:45] LABS: ABG BASE EXCESS 9.7 MMOL/L (-2.5-2.5); ABG OXYGEN SATURATION 94 % (94-100); ABG PCO2 38 MMHG (35-45); ABG PH 7.54 (7.37-7.43); ABG PO2 71 MMHG (79-93); ABG TCO2 34.3 MMOL/L (21.0-31.0)
[2020-01-20 07:46] LABS: ALLENS TEST ARTLINE
[2020-01-20 07:47] LABS: INSPIRED O2 30%; PATIENT TEMP 36.3; VENTILATOR YES
--- NOTE | 2020-01-20 08:16 | Physical Therapy Progress Note ---
Therapy Progress Note Patient remains sedated and intubated with possible weening off vent on this date. Will continue to monitor patient status. IDRIS NOEIL PT January 20, 2020 08:16
--- NOTE | 2020-01-20 08:32 | Cardiology Progress Note ---
Subjective Date Seen by Provider: January 20, 2020 Time Seen by Provider: 08:30 Subjective/Events-last exam Patient extubated this morning. Denies any chest pain, c/o right arm pain and right leg tingling. Review of Systems General: No Chills, No Night Sweats; Fatigue; No Malaise, No Appetite, No Other HEENT: No Head Aches, No Visual Changes, No Eye Pain, No Ear Pain, No Dysphasia, No Sinus Congestion, No Post Nasal Drip, No Sore Throat, No Other Pulmonary: Dyspnea; No Cough, No Pleuritic Chest Pain, No Other Cardiovascular: No: Chest Pain, Palpitations, Orthopnea, Paroxysmal Noc. Dyspnea, Edema, Lt Headedness, Other Objective-Cardiology Exam Last Set of Vital Signs Vital Signs 01/20/20 01/20/20 01/20/20 08:00 10:10 12:08 Temp 36.8 Pulse 80 Resp 18 B/P (MAP) 99/47 (64) Pulse Ox 95 O2 Delivery Vapotherm O2 Flow Rate 30.00 FiO2 30 Capillary Refill : Less Than 3 SecondsLess Than 3 Seconds I&O Intake and Output 01/20/20 00:00 Intake Total 2061 ml Output Total 3480 ml Balance -1419 ml Intake Oral 0 ml IV Total 920 ml Tube Feeding 1041 ml Other 100 ml Output Urine Total 3480 ml General: Alert, Cooperative, Mild Distress HEENT: Atraumatic, PERRLA Neck: Supple, No JVD, No Thyromegaly Lungs: Normal Air Movement, Other (bilateral rhonchi) Heart: Regular Rate, Normal S1, Normal S2, Other (systolic murmur) Abdomen: Normal Bowel Sounds, Soft, No Tenderness, No Hepatosplenomegaly, No Masses Extremities: No Clubbing, No Cyanosis, No Tenderness/Swelling, Other (edema to RUE) Skin: No Rashes, No Breakdown, No Significant Lesion Neuro: Normal Gait, Normal Speech, Strength at 5/5 X4 Ext, Normal Tone, Sensation Intact Psych/Mental Status: Mental Status NL, Mood NL Results Lab Laboratory Tests 01/20/20 02:50 A/P-Cardiology Admission Diagnosis Acute limb ischemia Chest pain Acute respiratory failure Hypokalemia Assessment/Plan Acute limb ischemia, heavy thrombus in the distal SFA and large thrombus in the proximal SFA, status post TNK injection and heparin then balloon angioplasty, reestablishment of the flow, palpable pedal pulse at this time, persistent cyanosis of the toes, maintained on Xarelto and Plavix New onset atrial fibrillation, most probably paroxysmal atrial fibrillation and had it in the past which caused the embolization to his leg. Currently back in sinus rhythm. Continue to monitor Acute respiratory failure, pneumonia and lung mass, patient extubated this morning, improving slowly, managed by Dr. Eugene. Chest pain, resembling angina, no previous cardiac history, continue to monitor at this time Left upper lobe mass, high suspicion of malignancy, Dr. Eugene following History of head trauma about 2 years ago, was in coma for about a month. Has been on disability. Cannot tolerate thrombolytics Tobaccoism, stopped smoking 3 weeks ago, encouraged to continue with smoking cessation Anemia, monitor H&H, Patient was seen and evaluated with Stacie, examination performed, management plan was discussed, agree with the current scribed note, I made few changes to the note using Italic font Patient is laying down in bed, feeling better, eating lunch Still having cyanosis of his toes, palpable dorsalis pedis pulse Continue on current medication and continue to monitor Monitor blood pressure, H&H Clinical Quality Measures DVT/VTE Risk/Contraindication: Risk Factor Score Per Nursin RFS Level Per Nursing on Admit: 4+=Very High STACIE PATEL January 20, 2020 8:31 am THERESA BELLAMY MD January 20, 2020 12:28 pm
--- NOTE | 2020-01-20 09:41 | Progress Note - Hospitalist ---
Subjective HPI/CC On Admission Date Seen by Provider: January 20, 2020 Time Seen by Provider: 09:36 Moshe Soto is a 59-year-old male with past medical history of tobacco abuse who presented with fever and shortness of breath. He also reports having a cough. He denies any chest pain. He denies any nausea, vomiting, or abdominal pain. He denies any diarrhea. He denies any dysuria. He has no other complaints or concerns. He denies any recent travel. He denies any sick contacts. Subjective/Events-last exam Pt intubated and on weaning trial. Objective Exam Vital Signs Vital Signs Date Time Temp Pulse Resp B/P (MAP) Pulse Ox O2 Delivery O2 Flow Rate FiO2 01/20/20 08:00 80 18 99/47 (64) 93 Mechanical Ventilator 30.00 01/20/20 06:58 30 01/20/20 03:30 36.6 Capillary Refill : Less Than 3 SecondsLess Than 3 Seconds General Appearance: Chronically ill, Obese Respiratory: Lungs Clear, Other (on vent) Cardiovascular: Regular Rate, Rhythm, No Murmur Gastrointestinal: Normal Bowel Sounds, Non Tender, Soft Neurologic/Psychiatric: Other (alert, answering questions appropriately) Results/Procedures Lab Laboratory Tests 01/20/20 02:50 Patient resulted labs reviewed. Imaging: Reviewed Imaging Report Assessment/Plan Assessment and Plan Assess & Plan/Chief Complaint Severe sepsis Pneumonia Acute respiratory failure with hypoxia Endotracheally intubated Possible left upper lobe mass Likely COPD Tobacco abuse Remains intubated- currently on weaning trial, expect extubation Pulmonology consulted, appreciate assistance COVID negative at outside facility, flu negative Procal now normal continue Zosyn and Solu-Medrol Sputum culture MURF Atrial fibrillation with rapid ventricular response Acute occlusion of artery of right lower extremity due to thromboembolism Cardiology consulted, appreciate assistance Underwent emergent angiogram with thrombolytics and balloon angioplasty 01/12 Continue Plavix and Xarelto Iron deficiency anemia Anemia of chronic disease Folic acid deficiency Hemoglobin 8.2, stable Iron studies consistent with both iron deficiency and anemia of chronic disease - Replete with Infed when more stable Folic acid level low Continue folic acid and iron supplementation Fecal occult blood positive Will need a colonoscopy at some point, likely outpatient Severe protein calorie malnutrition Started on continuous tube feeds with intermittent free water boluses Dietary consulted DVT prophylaxis: Already receiving therapeutic anticoagulation Clinical Quality Measures DVT/VTE Risk/Contraindication: Risk Factor Score Per Nursin RFS Level Per Nursing on Admit: 4+=Very High BLANE JAIN MD January 20, 2020 09:40
[2020-01-20] MEDS: LACTULOSE SYRUP 10GM/15ML (ENULOSE) 30ML UDC PO SCH ×2 (09:51→20:49)
[2020-01-20] MEDS: guaiFENesin (MUCINEX) 600 MG TAB PO SCH ×2 (09:52→20:49)
[2020-01-20] MEDS: FOLIC ACID 1 MG TAB PO SCH (09:52)
[2020-01-20] MEDS: CLOPIDOGREL 75 MG (PLAVIX) TABLET PO SCH (09:52)
[2020-01-20] MEDS: SENNA W/DOCUSATE (SENOKOT S) TABLET PO SCH ×2 (09:52→20:49)
[2020-01-20] MEDS: DIGOXIN 0.25 MG (LANOXIN) TAB PO SCH (09:52)
[2020-01-20] MEDS: DOCUSATE SODIUM 100 MG (COLACE) CAP PO SCH ×2 (09:52→20:49)
[2020-01-20] MEDS: NICOTINE 14 MG (NICODERM) PATCH TD SCH (09:52)
[2020-01-20] MEDS: meTOprolol TARTRATE 25 MG (LOPRESSOR) TABLET PO SCH ×2 (09:52→20:49)
--- NOTE | 2020-01-20 09:53 | ST Dysphagia Evaluation ---
Speech Evaluation-General Medical Diagnosis sepsis/respriatory distress Onset Date: Jan 11, 2020 Therapy Diagnosis Therapy Diagnosis: Oropharyngeal Dysphagia Precautions Precautions: Aspiration Referral Referring Physician: Dr. Eugene Medical History Pertinent Medical History: Alcoholism, Smoking Reviewed History: Yes Social History Current Living Status: Alone Speech PLF/Current-Dysphagia Prior Level of Function Patient lived at home alone where he was independent for his daily needs. Subjective Patient was alert and participated with his Bedside Dysphagia Evaluation. Cognitive Status Patient Orientation: Person, Place, Situation Oral Motor Skills Dentition: Natural, Tumbled, Stained Ability to Follow Directions: Good NPO pending BDE Oral Expression Ability: No Impairment Voice Voice Phonatory-Based Quality: Normal Voice Pitch: Normal Voice Loudness: Normal Face Facial Symmetry: Symmetrical Oral-Facial Assessment Oral-Facial Dentition: Normal Lingual Protrusion: Normal Lingual ROM: Normal Lingual Strength: Normal Pharynx Velopharyngeal Move.: Normal Volitional Dry Swallow: Yes Voluntary Cough: Yes Can Clear Throat Volitionally: Yes Dysphagia Evaluation Consistencies Presented: Thin Liquid Oral phase is within normal limits with thin. Pharyngeal phase is within normal limits with thin. Liquid Recommendations: Thin Patient refused any food presentations, stating he was not hungry for any food at this time. Swallowing Precautions: Alternate Liquids/Solids, Decreased Bolus 1/2 Tsp, Liquids from Straw, Liquids from Spoon, Small Bites and Sips, Sitting Upright 90 Degrees, Sitting 90 Degrees 30 Post Intake Dysphagia Evaluation Summary Patient was admitted to the ICU due to sepsis related to pneumonia. He was intubated with extubation yesterday. He completed a BDE with presentations of thin given at 1/2 tsp x2 and small sips via straw x2 without difficulty. Patient refused to eat any solids, stating he wasn't hungry at this time. This information was provided to his nurse, Steffany. ST will follow up with patient status at a later time. Barriers to Learning Patient's recent medical status. Speech Short Term Goals Short Term Goals Short Term Goals 1) Patient will tolerate least restrictive diet level with 90% intake. 2) Patient will utilize compensatory strategies as trained at 90% with minimal cuing. Speech Chcf Goals Chcf Goals Patient will maintain adequate nutrition and hydration via safe effective swallow function. Speech-Plan Patient/Family Goals Patient/Family Goals: Patient plans on returning home to prior status. Treatment Plan Speech Therapy Treatment Plan: Continue Plan of Care Treatment Duration: January 27, 2020 Frequency: 2 times per week Estimated Hrs Per Day: .25 hour per day Rehab Potential: Fair Barriers to Learning: Patient's recent medical status. Pt/Family Agrees to Plan: Yes Safety Risks/Education Teaching Recipient: Patient Teaching Methods: Demonstration, Discussion Response to Teaching: Verbalize Understanding, Return Demonstration Education Topics Provided: Safety of oral intake and diet levels Time Speech Therapy Time In: 08:45 Speech Therapy Time Out: 09:00 Total Billed Time: 15 Billed Treatment Time LARRY Garcia [facility] January 20, 2020 09:53
[2020-01-20] MEDS: NICOTINE PATCH REMOVAL TP SCH (09:54)
[2020-01-20] MEDS: PANTOPRAZOLE 40 MG (PROTONIX) VIAL IV SCH (09:54)
--- NOTE | 2020-01-20 11:13 | Physical Therapy Daily Note ---
PT Daily Note-Current Subjective Patient adamantly declined OOB stating, "I'm not going to do it today. I have been through a lot and want to stay in bed and eat." RN notified. Mental Status Patient Orientation: Person, Situation Attachments: Oxygen (vapotherm), Jackson Catheter, IV Transfers SCALE: Activities may be completed with or without assistive devices. 2-Dnshfppptm-itjxhxg completes the activity by him/herself with no assistance from a helper. 5-Set-up or Clean-up Assistance-helper sets up or cleans up; patient completes activity. [place] assists only prior to or following the activity. 4-Supervision or Touching Assistance-helper provides verbal cues and/or touching/steadying and/or contact guard assistance as patient completes activity. Assistance may be provided throughout the activity or intermittently. 3-Partial/Moderate Assistance-helper does LESS THAN HALF the effort. [place] lifts, holds or supports trunk or limbs, but provides less than half the effort. 2-Substantial/Maximal Assistance-helper does MORE THAN HALF the effort. [place] lifts or holds trunk or limbs and provides more than half the effort. 9-Gqzwqvtgg-rjmftf does ALL the effort. Patient does none of the effort to complete the activity. Or, the assistance of 2 or more helpers is required for the patient to complete the activity. If activity was not attempted, code reason: 7-Patient Refused. 9-Not Applicable-not attempted and the patient did not perform the activity before the current illness, exacerbation or injury. 10-Not Attempted due to Environmental Limitations-(lack of equipment, weather restraints, etc.). 88-Not Attempted due to Medical Conditions or Safety Concerns. Weight Bearing Right Lower Extremity: Right Weight Bearing/Tolerated Left Lower Extremity: Left Weight Bearing/Tolerated Exercises Supine Ex: Ankle pumps, Quad Set, Heel Slides, Straight leg raise, Hip abd/add Supine Reps: 15 (2 sets AAROM bilaterally) Assessment Education with patient on importance of OOB activity to increase strength. Patient continued to decline OOB activity. Will attempt in a.m. PT Short Term Goals Short Term Goals Time Frame: January 24, 2020 Roll Left & Right: 4 Sit to lyin Lying to sitting on side of be: 4 Sit to stand: 4 Chair/ykt-ix-cxbnd transfer: 4 Toilet transfer: 4 Walk 10 feet: 4 Walk 50 feet with two turns: 4 PT Assembly Worker Goals Assembly Worker Goals PT Mcc Goals Time Frame: February 07, 2020 Roll Left & Right (QC): 6 Sit to Lying (QC): 6 Lying-Sitting on Side/Bed(QC): 6 Sit to Stand (QC): 6 Chair/Ejs-sn-Fgphg Xfer(QC): 6 Toilet Transfer (QC): 6 Does the Patient Walk: Yes Walk 10 feet (QC): 6 Walk 50ft with 2 Turns (QC): 6 Walk 150 ft (QC): 6 PT Plan Treatment/Plan Treatment Plan: Continue Plan of Care Treatment Plan: Bed Mobility, Education, Functional Activity Lorena, Functional Strength, Gait, Safety, Therapeutic Exercise, Transfers Treatment Duration: February 07, 2020 Frequency: 6 times per week Estimated Hrs Per Day: .25 hour per day (to .5) Patient and/or Family Agrees t: Yes Time/GCodes Time In: 1050 Time Out: 1104 Total Billed Treatment Time: 14 Total Billed Treatment 1 visit EX 14 min IDRIS ONEIL PT January 20, 2020 11:13
--- NOTE | 2020-01-20 11:33 | NUR ---
0705 VENT CHANGES MADE BY RT PER DR DENISE'S ORDERS, 0730 ABG OBTAINED, 0800 DR DENISE NOTIFIED OF RESULTS AND ORDERS RECEIVED TO EXTUBATE. 0820 PT EXTUBATED, RESTRAINTS REMOVED, AND PT PLACED ON VAPOTHERM AT 30L 40% PER DR DENISE'S ORDERS. PT TOLERATED WELL. PT WORKED WITH SPEECH THERAPY VOICE STRONG. PT VERBALIZES NO C/O OF PAIN OR NEEDS. PT REPOSITIONED PER COMFORT, SA02 NOTED TO BE 95-97%. CALL LIGHT AND OTHER PERSONAL ITEMS WITHIN REACH WILL CONTINUE TO MONITOR.
--- NOTE | 2020-01-20 11:39 | Occupational Ther Daily Note ---
OT Current Status-Daily Note Subjective Pt. reports pain in right UE, but does not report pain level. Nursing aware. Appearance Pt. in bed. Awake and alert. Pt. extubated this a.m. Orders received to resume treatment. Mental Status/Objective Patient Orientation: Person Attachments: IV, Oxygen ADL-Treatment Therapy Code Descriptions/Definitions Functional Dickenson Measure: 0=Not Assessed/NA 4=Minimal Assistance 1=Total Assistance 5=Supervision or Setup 2=Maximal Assistance 6=Modified Dickenson 3=Moderate Assistance 7=Complete IndependenceSCALE: Activities may be completed with or without assistive devices. 8-Mhflqjwgbt-vegwbkv completes the activity by him/herself with no assistance from a helper. 5-Set-up or Clean-up Assistance-helper sets up or cleans up; patient completes activity. [place] assists only prior to or following the activity. 4-Supervision or Touching Assistance-helper provides verbal cues and/or touching/steadying and/or contact guard assistance as patient completes activity. Assistance may be provided throughout the activity or intermittently. 3-Partial/Moderate Assistance-helper does LESS THAN HALF the effort. [place] lifts, holds or supports trunk or limbs, but provides less than half the effort. 2-Substantial/Maximal Assistance-helper does MORE THAN HALF the effort. [place] lifts or holds trunk or limbs and provides more than half the effort. 1-Jxpqbdpwh-uqhvbj does ALL the effort. Patient does none of the effort to complete the activity. Or, the assistance of 2 or more helpers is required for the patient to complete the activity. If activity was not attempted, code reason: 7-Patient Refused. 9-Not Applicable-not attempted and the patient did not perform the activity before the current illness, exacerbation or injury. 10-Not Attempted due to Environmental Limitations-(lack of equipment, weather restraints, etc.). 88-Not Attempted due to Medical Conditions or Safety Concerns. Pt. in bed finishing treatment with PT when OT entered room. Pt. verbalizes that he does not want to do anything today but eat and watch TV. OT explained role, and goal is re-assessment. Pt. verbalizes that this is okay. Pt. handed warm washcloth to wash face. Pt. able to bring up to face, and pat around face, but hand continues to be weak. (Left UE). Pt. able to flex left elbow and move fingers on left hand. Pt. demonstrates limited AROM in right UE. Pt.'s right UE swollen and edematous. Pt. able to make weak fist, but unable to move wrist, or elbow. Nursing okays for OT to provide gentle PROM. OT provided PROM to tolerated range in elbow flexion and finger flexion. Pt. verbalizes that this is sore. Right UE elevated on pillow after treatment. Pt. declines brushing lion with left UE, but allows OT to do so. OT gently brushes lion for possible detanglement. All needs met in bed and pt. with call light. Will resume original goals for increased overall strength and endurance with functional tasks. Education OT Patient Education: Correct positioning, Exercise program, Progress toward Goal/Update tx plan, Purpose of tx/functional activities, Reviewed precautions, Rehab process Teaching Recipient: Patient Teaching Methods: Demonstration, Discussion Response to Teaching: Verbalize Understanding, Return Demonstration, Reinforcement Needed OT Short Term Goals Short Term Goals Time Frame: January 22, 2020 Eatin Oral hygiene: 4 Toileting hygiene: 3 Upper body dressin Lower body dressin Putting on/taking off footwear: 3 OT Longterm Goals Tape Sewing Machine Operator Goals Time Frame: January 29, 2020 Eating (QC): 6 Oral Hygiene (QC): 6 Toileting Hygiene (QC): 5 Shower/Bathe Self (QC): 3 Upper Body Dressing (QC): 4 Lower Body Dressing (QC): 4 On/Off Footwear (QC): 4 Additional Goals: 1-Demonstrate ADL Tasks, 2-Verbalize Understanding, 3- ImproveStrength/Lorena 1=Demonstrate adherence to instructed precautions during ADL tasks. 2=Patient will verbalize/demonstrate understanding of assistive devices/modifications for ADL. 3=Patient will improve strength/tolerance for activity to enable patient to perform ADL's. OT Education/Plan Problem List/Assessment Assessment: Decreased Activ Tolerance, Decreased UE Strength, Dependent Transfe rs, Edema, Impaired Bed Mobility, Impaired Coordination, Impaired Funct Balance, Impaired I ADL's, Impaired Self-Care Skills, Restricted Funct UE ROM Discharge Recommendations Plan/Recommendations: Continue POC Therapy Discharge Recommendati: 24 Hour Supervision, Post Acute OT Treatment Plan/Plan of Care Treatment,Training & Education: Yes Patient would benefit from OT for education, treatment and training to promote i ndependence in ADL's, mobility, safety and/or upper extremity function for ADL's. Plan of Care: ADL Retraining, Functional Mobility, UE Funct Exercise/Act Treatment Duration: January 29, 2020 Frequency: 5 times per week Estimated Hrs Per Day: .25 hour per day Agreement: Yes Rehab Potential: Fair Time/GCodes Start Time: 11:05 Stop Time: 11:20 Total Time Billed (hr/min): 15 Billed Treatment Time 1, ADL REGGIE GARCIA OT January 20, 2020 11:39
--- NOTE | 2020-01-20 13:10 | NUR ---
CM/SS follow up. The patient was extubated this a.m. 01/19 and was awake when this ss came for a visit. TORRES/SS informed him that this ss would be following with him to help with discharge plans. He verbalized understanding. TORRES/LITZY discussed with the patient that inpatient rehab will still follow to assess if he would be a good candidate. He stated "he will need to think about that". CM/SS verbalized understanding and stated that it could be talked about at a later time. The physical therapist was in the room and provided him with additional information about rehab. Ultimately he still is unsure at this time. TORRES/LITZY spoke with Jacquelin from inpatient rehab to discuss case. She will continue to follow. TORRES/LITZY will continue to follow for discharge planning.
[2020-01-20] MEDS: RIVAROXABAN 20 MG TABLET (XARELTO) PO SCH (17:50)
[2020-01-21] VITALS (27 sets, daily range): BP systolic 104–155; BP diastolic 45–79
[2020-01-21 00:24] LABS: ABG OXYGEN SATURATION 86 % (94-100); ABG PCO2 41 MMHG (35-45); ABG PH 7.52 (7.37-7.43); ABG PO2 61 MMHG (79-93); ABG TCO2 34.7 MMOL/L (21.0-31.0)
[2020-01-21 00:27] LABS: ALLENS TEST P; INSPIRED O2 4L
[2020-01-21 00:28] LABS: PATIENT TEMP 37.5; VENTILATOR NO
--- NOTE | 2020-01-21 00:35 | NUR ---
Patient with increased oxygen needs, Vapo Therm increased from 25L 25% to 40L/80%. ABG sent to lab. Call placed to E ICU with ABG results and to report patient increased oxygen needs. Order for BiPap if needed.
[2020-01-21] MEDS: aCETylcysteine 20% (MUCOMYST) 30ML SOLN VIAL INH SCH ×2 (01:32→06:24)
[2020-01-21] MEDS: RT-ALBUTEROL/IPRATROPIUM 3 ML (DUONEB) VIAL INH SCH ×6 (01:32→22:45)
[2020-01-21] MEDS: PIPERACILLIN/TAZO 4.5 GM/NS 100 ML IV SCH ×6 (01:53→17:03)
[2020-01-21 02:36] LABS: ABG BASE EXCESS 9.8 MMOL/L (-2.5-2.5); ABG OXYGEN SATURATION 95 % (94-100); ABG PCO2 41 MMHG (35-45); ABG PH 7.52 (7.37-7.43); ABG PO2 77 MMHG (79-93); ABG TCO2 34.6 MMOL/L (21.0-31.0)
[2020-01-21 02:37] LABS: ALLENS TEST P
[2020-01-21 02:38] LABS: INSPIRED O2 40%
[2020-01-21 02:39] LABS: PATIENT TEMP 37.1; VENTILATOR NO
[2020-01-21 02:42] LABS: BASOPHILS % (AUTO) 0 % (0-10); EOSINOPHILS % (AUTO) 0 % (0-10); HEMATOCRIT 27 % (40-54); HEMOGLOBIN 8.8 G/DL (13.3-17.7); LYMPHOCYTES # (AUTO) 0.5 X 10^3 (1.0-4.0); LYMPHOCYTES % (AUTO) 2 % (12-44); MEAN CORPUSCULAR HEMOGLOBIN 31 PG (25-34); MEAN CORPUSCULAR HGB CONC 32 G/DL (32-36); MEAN CORPUSCULAR VOLUME 96 FL (80-99); MEAN PLATELET VOLUME 9.4 FL (7.4-10.4); MONOCYTES # (AUTO) 0.6 X 10^3 (0.0-1.0); MONOCYTES % (AUTO) 3 % (0-12); NEUTROPHILS # (AUTO) 18.3 X 10^3 (1.8-7.8); NEUTROPHILS % (AUTO) 94 % (42-75); PLATELET COUNT 759 10^3/uL (130-400); RED CELL DISTRIBUTION WIDTH 15.3 % (10.0-14.5); WHITE BLOOD COUNT 19.4 10^3/uL (4.3-11.0)
[2020-01-21 03:09] LABS: BAND NEUTROPHILS 4 %; LYMPHOCYTES % (MANUAL) 4 %; MONOCYTES % (MANUAL) 2 %; NEUTROPHILS % (MANUAL) 90 %
[2020-01-21 03:13] LABS: BUN/CREATININE RATIO 30; CALCIUM 7.3 MG/DL (8.5-10.1); CARBON DIOXIDE 29 MMOL/L (21-32); CHLORIDE 99 MMOL/L (98-107); CREATININE SERUM 0.47 MG/DL (0.60-1.30); GFR ESTIMATED > 60; GLUCOSE 123 MG/DL (70-105); MAGNESIUM 2.1 MG/DL (1.6-2.4); PHOSPHORUS 2.5 MG/DL (2.3-4.7); POTASSIUM 3.3 MMOL/L (3.6-5.0); SODIUM 138 MMOL/L (135-145); TRIGLYCERIDES 130 MG/DL (<150)
[2020-01-21] MEDS: MAGNESIUM 1 GM/100 ML IVPB 100 ML IV SCH (03:19)
[2020-01-21] MEDS: POTASSIUM CL 10MEQ/50ML IVPB 50 ML IV SCH ×5 (03:19→06:44)
[2020-01-21] MEDS: KCL 20 MEQ TAB (K-DUR) PO SCH (03:20)
[2020-01-21] MEDS: inSUlin ASPART (NovoLOG) 1 UNIT/0.01 ML (CHARGE PER UNIT) SC SCH ×4 (05:06→20:41)
[2020-01-21] MEDS: methylPREDNISolone 40 MG/ML (Solu-MEDROL) VIAL IV SCH ×3 (05:06→17:03)
--- NOTE | 2020-01-21 06:30 | Pulmonary Progress Note ---
Subjective Time Seen by a Provider: 06:28 Subjective/Events-last exam Pt is now off vent. Sepsis Event Evaluation Height, Weight, BMI Height: '" Weight: lbs. oz. kg; 16.01 BMI Method: Exam Exam Vital Signs Date Time Temp Pulse Resp B/P (MAP) Pulse Ox O2 Delivery O2 Flow Rate FiO2 01/21/20 05:00 87 17 140/66 (90) 96 Vapotherm 35.00 40.00 01/21/20 04:18 37.6 01/21/20 04:00 84 18 143/69 (93) 97 Vapotherm 35.00 40.00 01/21/20 03:45 37.4 Vapotherm 35.00 40.00 01/21/20 03:45 97 Vapotherm 35.00 40 01/21/20 03:00 85 18 136/65 (88) 93 Vapotherm 35.00 40.00 01/21/20 02:00 84 19 130/62 (84) 94 Vapotherm 35.00 40.00 01/21/20 01:35 87 17 132/58 (82) 99 Vapotherm 35.00 40.00 01/21/20 01:32 98 Vapotherm 35.00 50 01/21/20 01:00 83 01/21/20 01:00 83 15 128/58 (81) 95 Vapotherm 35.00 50.00 01/21/20 00:51 Vapotherm 35.00 50.00 01/21/20 00:32 78 21 125/57 (79) 92 Vapotherm 40.00 80.00 01/21/20 00:00 80 24 114/52 (72) 89 Vapotherm 40.00 50.00 01/20/20 23:55 82 18 117/56 (76) 92 Vapotherm 40.00 50.00 01/20/20 23:30 92 Vapotherm 25.00 25 01/20/20 23:30 37.6 Vapotherm 25.00 25.00 01/20/20 23:00 82 17 124/60 (81) 90 Vapotherm 25.00 25.00 01/20/20 22:00 83 20 105/56 (72) 91 Vapotherm 25.00 25.00 01/20/20 21:28 96 Vapotherm 30.00 30 01/20/20 21:00 93 21 118/58 (78) 95 Vapotherm 30.00 30.00 01/20/20 20:00 99 19 111/57 (75) 96 Vapotherm 30.00 30.00 01/20/20 19:50 95 Vapotherm 30.00 30 01/20/20 19:00 89 01/20/20 19:00 89 20 104/50 (68) 96 Vapotherm 30.00 30.00 01/20/20 19:00 36.9 Vapotherm 30.00 30.00 01/20/20 18:04 97 Vapotherm 30.00 30 01/20/20 18:00 90 21 109/52 (71) 96 Vapotherm 30.00 30.00 01/20/20 17:00 97 27 133/60 (84) 95 Vapotherm 30.00 30.00 01/20/20 16:00 89 22 126/56 (79) 98 Vapotherm 30.00 30.00 01/20/20 16:00 98 Vapotherm 30 01/20/20 15:43 37.2 01/20/20 15:00 90 9 118/55 (76) 97 Vapotherm 30.00 30.00 01/20/20 14:23 95 Vapotherm 30.00 30 01/20/20 14:00 93 19 115/53 (73) 96 Vapotherm 30.00 30.00 01/20/20 13:18 92 01/20/20 13:00 92 17 120/54 (76) 97 Vapotherm 30.00 30.00 01/20/20 12:35 97 Vapotherm 30.00 30 01/20/20 12:08 36.8 01/20/20 10:10 95 Vapotherm 30.00 30 01/20/20 08:00 80 18 99/47 (64) 93 Mechanical Ventilator 30.00 01/20/20 08:00 36.6 01/20/20 08:00 97 Mechanical Ventilator 30 01/20/20 07:00 73 01/20/20 07:00 72 15 110/57 (74) 96 Mechanical Ventilator 30.00 01/20/20 06:58 68 20 95 30 I & O 01/21/20 07:00 Intake Total 1400 ml Output Total 2950 ml Balance -1550 ml Height & Weight Height: '" Weight: lbs. oz. kg; 16.01 BMI Method: General Appearance: Chronically ill, Obese HEENT: PERRL/EOMI, TMs Normal, Normal ENT Inspection Neck: Normal Inspection, Supple Respiratory: Lungs Clear, Other (on vent) Cardiovascular: Regular Rate, Rhythm, No Murmur Capillary Refill: Less Than 3 Seconds Gastrointestinal: normal bowel sounds, non tender, soft Extremity: Swelling (upper and lower extremities) Neurologic/Psychiatric: Other (alert, answering questions appropriately) Skin: Normal Color, Warm/Dry Lymphatic: No Adenopathy Results Lab Laboratory Tests 01/20/20 02:50 01/21/20 02:30 Assessment/Plan Assessment/Plan Acute on chronic respiratory failure -doing well off vent PNA -- possible post obstructive pneumonia r/o cancer -will need repeat CT scan 8wks after discharge - solumedrol 40 Q 6 -Continue zosyn -MRSA is negative - SVNS -Pt is on xeralto, and plavix -Check cultures -COVID is negative -MRSA and influenza -- is negative -RVP 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
[2020-01-21] MEDS: FERROUS SULF 325 MG (IRON) TAB PO SCH ×2 (08:53→17:03)
[2020-01-21] MEDS: guaiFENesin (MUCINEX) 600 MG TAB PO SCH ×2 (08:54→20:40)
[2020-01-21] MEDS: meTOprolol TARTRATE 25 MG (LOPRESSOR) TABLET PO SCH ×2 (08:54→20:40)
[2020-01-21] MEDS: MULTIVIT W/MINERALS TAB (THERAGRAN M) PO SCH (08:54)
[2020-01-21] MEDS: FOLIC ACID 1 MG TAB PO SCH (08:54)
[2020-01-21] MEDS: DIGOXIN 0.25 MG (LANOXIN) TAB PO SCH (08:54)
[2020-01-21] MEDS: CLOPIDOGREL 75 MG (PLAVIX) TABLET PO SCH (08:54)
[2020-01-21] MEDS: NICOTINE 14 MG (NICODERM) PATCH TD SCH (08:54)
[2020-01-21] MEDS: NICOTINE PATCH REMOVAL TP SCH (08:55)
[2020-01-21] MEDS: PANTOPRAZOLE 40 MG (PROTONIX) VIAL IV SCH (08:55)
--- NOTE | 2020-01-21 09:17 | Diagnostic Imaging Report ---
Portable erect AP chest at 307 hours. INDICATION: Respiratory distress. FINDINGS: In the interval since the prior exam of 01/20/2020, the patient has been extubated and the NG line has been removed. The central venous catheter on the left seen previously is again evident and no different. The alveolar/interstitial infiltrates involving the left mid lung and right lung base seen previously are again evident and not significantly changed. The left lung is somewhat difficult to evaluate, however due to overlying support apparatus pad. The heart is stable in size. The mediastinum is not widened. The osseous structures are intact. IMPRESSION: Stable postextubation chest. There is persistent involvement of both lungs by pneumonia/atelectasis. A follow-up study would be recommended for continued evaluation. Dictated by: Dictated on workstation # [id number]
--- NOTE | 2020-01-21 09:34 | Cardiology Progress Note ---
Subjective Date Seen by Provider: January 21, 2020 Time Seen by Provider: 09:05 Subjective/Events-last exam Patient sitting up in bed, reporting some increased dyspnea. Denies any chest pain. Review of Systems General: No Chills, No Night Sweats; Fatigue; No Malaise, No Appetite, No Other HEENT: No Head Aches, No Visual Changes, No Eye Pain, No Ear Pain, No Dysphasia, No Sinus Congestion, No Post Nasal Drip, No Sore Throat, No Other Pulmonary: Dyspnea; No Cough, No Pleuritic Chest Pain, No Other Cardiovascular: Edema; No: Chest Pain, Palpitations, Orthopnea, Paroxysmal Noc. Dyspnea, Lt Headedness, Other Objective-Cardiology Exam Last Set of Vital Signs Vital Signs 01/21/20 01/21/20 01/21/20 04:18 08:00 09:00 Temp 37.6 Pulse 104 Resp 21 B/P (MAP) 132/71 (91) Pulse Ox 96 O2 Delivery Vapotherm O2 Flow Rate 35.00 40.00 FiO2 40 Capillary Refill : Less Than 3 SecondsLess Than 3 Seconds I&O Intake and Output 01/21/20 00:00 Intake Total 1540 ml Output Total 2275 ml Balance -735 ml Intake Oral 610 ml IV Total 590 ml Tube Feeding 140 ml Other 200 ml Output Urine Total 2275 ml # Bowel Movements 2 General: Alert, Cooperative, Mild Distress HEENT: Atraumatic, PERRLA Neck: Supple, No JVD, No Thyromegaly Lungs: Normal Air Movement, Other (bilateral rhonchi) Heart: Regular Rate, Normal S1, Normal S2, Other (systolic murmur) Abdomen: Normal Bowel Sounds, Soft, No Tenderness, No Hepatosplenomegaly, No Masses Extremities: No Clubbing, No Cyanosis, No Tenderness/Swelling, Other (edema to RUE) Skin: No Rashes, No Breakdown, No Significant Lesion Neuro: Normal Gait, Normal Speech, Strength at 5/5 X4 Ext, Normal Tone, Sensation Intact Psych/Mental Status: Mental Status NL, Mood NL Results Lab Laboratory Tests 01/21/20 02:30 A/P-Cardiology Admission Diagnosis Acute limb ischemia Chest pain Acute respiratory failure Hypokalemia Assessment/Plan Acute limb ischemia, heavy thrombus in the distal SFA and large thrombus in the proximal SFA, status post TNK injection and heparin then balloon angioplasty, reestablishment of the flow, palpable pedal pulse at this time, persistent cyanosis of the toes, maintained on Xarelto and Plavix New onset atrial fibrillation, most probably paroxysmal atrial fibrillation and had it in the past which caused the embolization to his leg. Currently back in sinus rhythm. Continue to monitor Acute respiratory failure, pneumonia and lung mass, patient extubated, improving slowly, managed by Dr. Eugene. Chest pain, resembling angina, no previous cardiac history, continue to monitor at this time Left upper lobe mass, Dr. Eugene following History of head trauma about 2 years ago, was in coma for about a month. Has been on disability. Cannot tolerate thrombolytics Tobaccoism, stopped smoking 3 weeks ago, encouraged to continue with smoking cessation Anemia, monitor H&H, Patient was seen and evaluated with Stacie, examination performed, management plan was discussed, agree with the current scribed note, I made few changes to the note using Italic font Patient is sitting in bed, having dyspnea, worsening WBC Edema on the right lower and right upper extremity Still having cyanosis at the tip of his toes on the right Foot is warm Continue current medication, monitor H&H, monitor electrolytes Clinical Quality Measures DVT/VTE Risk/Contraindication: Risk Factor Score Per Nursin RFS Level Per Nursing on Admit: 4+=Very High STACIE PATEL January 21, 2020 09:34 THERESA BELLAMY MD January 21, 2020 11:07
--- NOTE | 2020-01-21 10:12 | Progress Note - Hospitalist ---
Subjective HPI/CC On Admission Date Seen by Provider: January 21, 2020 Time Seen by Provider: 10:08 Moshe Soto is a 59-year-old male with past medical history of tobacco abuse who presented with fever and shortness of breath. He also reports having a cough. He denies any chest pain. He denies any nausea, vomiting, or abdominal pain. He denies any diarrhea. He denies any dysuria. He has no other complaints or concerns. He denies any recent travel. He denies any sick contacts. Subjective/Events-last exam Pt reports doing better today. Eating breakfast. No complaints. Objective Exam Vital Signs Vital Signs Date Time Temp Pulse Resp B/P (MAP) Pulse Ox O2 Delivery O2 Flow Rate FiO2 01/21/20 09:00 104 21 132/71 (91) 96 Vapotherm 35.00 40.00 01/21/20 08:00 40 01/21/20 04:18 37.6 Capillary Refill : Less Than 3 SecondsLess Than 3 Seconds General Appearance: No Apparent Distress, Chronically ill, Cachetic Respiratory: Lungs Clear, Other (on Vapotherm) Cardiovascular: Regular Rate, Rhythm, No Murmur Gastrointestinal: Normal Bowel Sounds, Non Tender, Soft Neurologic/Psychiatric: Alert, Oriented x3 Results/Procedures Lab Laboratory Tests 01/21/20 02:30 Patient resulted labs reviewed. Imaging: Reviewed Imaging Report Assessment/Plan Assessment and Plan Assess & Plan/Chief Complaint Severe sepsis Pneumonia Acute respiratory failure with hypoxia Possible left upper lobe mass Likely COPD Tobacco abuse Extubated 01/19, on Vapotherm- wean as able Pulmonology consulted, appreciate assistance COVID negative at outside facility, flu negative Procal now normal continue Zosyn and Solu-Medrol Sputum culture MURF - Leukocytosis today- trend Atrial fibrillation with rapid ventricular response Acute occlusion of artery of right lower extremity due to thromboembolism Cardiology consulted, appreciate assistance Underwent emergent angiogram with thrombolytics and balloon angioplasty 01/12 Continue Plavix and Xarelto Iron deficiency anemia Anemia of chronic disease Folic acid deficiency Hemoglobin 8.8, stable Iron studies consistent with both iron deficiency and anemia of chronic disease - Replete with Infed when more stable Folic acid level low Continue folic acid and iron supplementation Fecal occult blood positive Will need a colonoscopy at some point, likely outpatient due to respiratory status Severe protein calorie malnutrition Continue continuous tube feeds with intermittent free water boluses Dietary consulted DVT prophylaxis: Already receiving therapeutic anticoagulation Clinical Quality Measures DVT/VTE Risk/Contraindication: Risk Factor Score Per Nursin RFS Level Per Nursing on Admit: 4+=Very High BLANE JAIN MD January 21, 2020 10:12
--- NOTE | 2020-01-21 11:05 | Physical Therapy Daily Note ---
PT Daily Note-Current Subjective Patient in bed pre tx, agrees to PT but refuses to sit on the side of the bed due to scrotum swelling and general pain. However, when asked if he has pain he says no but has tingling in his right arm and leg both of which are significantly swollen, Dr. Watson observes this when he comes in to talk to the patient and nurse is aware. Patient has some black spots appearing on his right foot. Will be co-treating with OT due to poor patient mobiltiy, strength, endurance, the need to coordinate UE and LE during activity. Patient has had a BM and needs to be cleaned. Appearance Patient in bed post tx with nurse call, phone, tray, all needs met, SCD's on. Mental Status Patient Orientation: Person, Place, Situation Attachments: Oxygen, Jackson Catheter, IV Transfers SCALE: Activities may be completed with or without assistive devices. 1-Dvajvtlllv-xmkwgbd completes the activity by him/herself with no assistance from a helper. 5-Set-up or Clean-up Assistance-helper sets up or cleans up; patient completes activity. [place] assists only prior to or following the activity. 4-Supervision or Touching Assistance-helper provides verbal cues and/or touching/steadying and/or contact guard assistance as patient completes act ivity. Assistance may be provided throughout the activity or intermittently. 3-Partial/Moderate Assistance-helper does LESS THAN HALF the effort. [place] lifts, holds or supports trunk or limbs, but provides less than half the effort. 2-Substantial/Maximal Assistance-helper does MORE THAN HALF the effort. [place] lifts or holds trunk or limbs and provides more than half the effort. 2-Qjmbtxxmv-wcaffl does ALL the effort. Patient does none of the effort to complete the activity. Or, the assistance of 2 or more helpers is required for the patient to complete the activity. If activity was not attempted, code reason: 7-Patient Refused. 9-Not Applicable-not attempted and the patient did not perform the activity before the current illness, exacerbation or injury. 10-Not Attempted due to Environmental Limitations-(lack of equipment, weather restraints, etc.). 88-Not Attempted due to Medical Conditions or Safety Concerns. Roll Left & Right (QC): 2 Patient has to roll a couple of times to each side for cleaning and changing pads under patient. Patient has another BM after the first cleaning and has to do it all over again. He can assist with his upper body but needs max assist for lower body during turning. Weight Bearing Right Lower Extremity: Right Weight Bearing/Tolerated Left Lower Extremity: Left Weight Bearing/Tolerated Exercises Supine Ex: Ankle pumps, Quad Set, Heel Slides Supine Reps: 15 (AAROM with heel slides) Treatments rolling, LE strengthening, cleaning Assessment Current Status: Poor Progress Patient has very poor mobility, significant swelling in right UE and LE PT Short Term Goals Short Term Goals Time Frame: January 24, 2020 Roll Left & Right: 4 Sit to lyin Lying to sitting on side of be: 4 Sit to stand: 4 Chair/rdf-zv-zxpmb transfer: 4 Toilet transfer: 4 Walk 10 feet: 4 Walk 50 feet with two turns: 4 PT Registered Nurse Cardiac Goals Registered Nurse Cardiac Goals PT Registered Nurse Cardiac Goals Time Frame: February 07, 2020 Roll Left & Right (QC): 6 Sit to Lying (QC): 6 Lying-Sitting on Side/Bed(QC): 6 Sit to Stand (QC): 6 Chair/Mrm-kn-Cfihs Xfer(QC): 6 Toilet Transfer (QC): 6 Does the Patient Walk: Yes Walk 10 feet (QC): 6 Walk 50ft with 2 Turns (QC): 6 Walk 150 ft (QC): 6 PT Plan Problem List Problem List: Activity Tolerance, Functional Strength, Safety, Balance, Gait, Transfer, Bed Mobility, ROM Treatment/Plan Treatment Plan: Continue Plan of Care Treatment Plan: Bed Mobility, Education, Functional Activity Lore[place], Functional Strength, Gait, Safety, Therapeutic Exercise, Transfers Treatment Duration: February 07, 2020 Frequency: 6 times per week Estimated Hrs Per Day: .25 hour per day (to .5) Patient and/or Family Agrees t: Yes Safety Risks/Education Patient Education: Correct Positioning, Safety Issues Teaching Recipient: Patient Teaching Methods: Demonstration, Discussion Response to Teaching: Reinforcement Needed Time/GCodes Time In: 1035 Time Out: 1100 Total Billed Treatment Time: 25 Total Billed Treatment 1 visit FA 25' Co-treated with OT for 25'. PT performed LE exercise, rolling, positioning d uring cleaning, OT performed cleaning, assist with rolling. MARKO REID PT January 21, 2020 11:05
--- NOTE | 2020-01-21 11:10 | NUR ---
Pastoral care visit.
--- NOTE | 2020-01-21 11:35 | Occupational Ther Daily Note ---
OT Current Status-Daily Note Subjective Pt alert, lying in bed. Pt agrees to therapy in bed. Refused any OOB activity or sitting EOB stating that he would complete tomorrow. C/o pain though did not rate. Mental Status/Objective Patient Orientation: Person, Place, Time, Situation Attachments: Jackson Catheter, IV, Oxygen, Telemetry ADL-Treatment Co-treating with PT for the need of 2 skilled clinicians due to poor patient mobility, strength, endurance, the need to coordinate UE and LE during activity. Pt attempts to assist with rolling side to side minimally, requires max Ax2 for rolling. Pt is aware of bowel movements though is dependent with cleansing self. Pt's R UE edema continues though movement is progressing. Dr Watson in to see pt and assessed the increased edema, nrsg aware. After session, pt lying in bed with call light/phone in reach. All needs met in room. Therapy Code Descriptions/Definitions Functional [place] Measure: 0=Not Assessed/NA 4=Minimal Assistance 1=Total Assistance 5=Supervision or Setup 2=Maximal Assistance 6=Modified [place] 3=Moderate Assistance 7=Complete IndependenceSCALE: Activities may be completed with or without assistive devices. 0-Ktewyqfjmz-mgyoeib completes the activity by him/herself with no assistance from a helper. 5-Set-up or Clean-up Assistance-helper sets up or cleans up; patient completes activity. [place] assists only prior to or following the activity. 4-Supervision or Touching Assistance-helper provides verbal cues and/or touching/steadying and/or contact guard assistance as patient completes activity. Assistance may be provided throughout the activity or intermittently. 3-Partial/Moderate Assistance-helper does LESS THAN HALF the effort. [place] lifts, holds or supports trunk or limbs, but provides less than half the effort. 2-Substantial/Maximal Assistance-helper does MORE THAN HALF the effort. [place] lifts or holds trunk or limbs and provides more than half the effort. 2-Ofjjacrvs-frdlbg does ALL the effort. Patient does none of the effort to complete the activity. Or, the assistance of 2 or more helpers is required for the patient to complete the activity. If activity was not attempted, code reason: 7-Patient Refused. 9-Not Applicable-not attempted and the patient did not perform the activity before the current illness, exacerbation or injury. 10-Not Attempted due to Environmental Limitations-(lack of equipment, weather restraints, etc.). 88-Not Attempted due to Medical Conditions or Safety Concerns. Toileting Hygiene (QC): 2 OT Short Term Goals Short Term Goals Time Frame: January 22, 2020 Eatin Oral hygiene: 4 Toileting hygiene: 3 Upper body dressin Lower body dressin Putting on/taking off footwear: 3 OT [employer] Services Sales Representative Goals [employer] Services Sales Representative Goals Time Frame: January 29, 2020 Eating (QC): 6 Oral Hygiene (QC): 6 Toileting Hygiene (QC): 5 Shower/Bathe Self (QC): 3 Upper Body Dressing (QC): 4 Lower Body Dressing (QC): 4 On/Off Footwear (QC): 4 Additional Goals: 1-Demonstrate ADL Tasks, 2-Verbalize Understanding, 3- ImproveStrength/[place] 1=Demonstrate adherence to instructed precautions during ADL tasks. 2=Patient will verbalize/demonstrate understanding of assistive devices/modif ications for ADL. 3=Patient will improve strength/tolerance for activity to enable patient to perform ADL's. OT Education/Plan Problem List/Assessment Assessment: Decreased Activ Tolerance, Decreased UE Strength, Impaired Self- Care Skills, Restricted Funct UE ROM Discharge Recommendations Plan/Recommendations: Continue POC Treatment Plan/Plan of Care Patient would benefit from OT for education, treatment and training to promote independence in ADL's, mobility, safety and/or upper extremity function for ADL's. Plan of Care: ADL Retraining, Functional Mobility, UE Funct Exercise/Act Treatment Duration: January 29, 2020 Frequency: 5 times per week Estimated Hrs Per Day: .25 hour per day Agreement: Yes Rehab Potential: Fair Time/GCodes Start Time: 10:35 Stop Time: 11:00 Total Time Billed (hr/min): 25 Billed Treatment Time 1 visit-ADL 2 (25 min) CANDI MITCHELL January 21, 2020 11:35
--- NOTE | 2020-01-21 13:40 | NUR ---
CM/SS follow up. The patient appeared to be slightly agitated today with this ss. When he saw this ss he stated "please don't bother me". CM/SS asked the patient how he was feeling. He reported that he wasn't feeling too great and his bottom was hurting. He did not have any other complaints at this time. CM/SS informed him that Amita from [facility] would come and talk to him at some point this week to discuss it. He verbalized understanding. CM/SS ended the visit short due to patient verbalizing he did not want to talk. Will continue to follow.
[2020-01-21] MEDS: RIVAROXABAN 20 MG TABLET (XARELTO) PO SCH (17:04)
[2020-01-22] VITALS (13 sets, daily range): BP systolic 103–167; BP diastolic 47–91
[2020-01-22] MEDS: methylPREDNISolone 40 MG/ML (Solu-MEDROL) VIAL IV SCH ×2 (00:48→06:04)
[2020-01-22] MEDS: PIPERACILLIN/TAZO 4.5 GM/NS 100 ML IV SCH ×6 (00:48→17:31)
[2020-01-22] MEDS: RT-ALBUTEROL/IPRATROPIUM 3 ML (DUONEB) VIAL INH SCH ×6 (02:27→22:04)
[2020-01-22 03:31] LABS: BASOPHILS % (AUTO) 0 % (0-10); EOSINOPHILS % (AUTO) 0 % (0-10); HEMATOCRIT 28 % (40-54); HEMOGLOBIN 8.8 G/DL (13.3-17.7); LYMPHOCYTES # (AUTO) 0.4 X 10^3 (1.0-4.0); LYMPHOCYTES % (AUTO) 3 % (12-44); MEAN CORPUSCULAR HEMOGLOBIN 31 PG (25-34); MEAN CORPUSCULAR HGB CONC 32 G/DL (32-36); MEAN CORPUSCULAR VOLUME 96 FL (80-99); MEAN PLATELET VOLUME 9.1 FL (7.4-10.4); MONOCYTES # (AUTO) 0.5 X 10^3 (0.0-1.0); MONOCYTES % (AUTO) 4 % (0-12); NEUTROPHILS % (AUTO) 93 % (42-75); PLATELET COUNT 784 10^3/uL (130-400); RED CELL DISTRIBUTION WIDTH 15.6 % (10.0-14.5); WHITE BLOOD COUNT 13.9 10^3/uL (4.3-11.0)
[2020-01-22 03:53] LABS: BUN/CREATININE RATIO 26; CALCIUM 7.3 MG/DL (8.5-10.1); CARBON DIOXIDE 29 MMOL/L (21-32); CHLORIDE 102 MMOL/L (98-107); GFR ESTIMATED > 60; GLUCOSE 127 MG/DL (70-105); MAGNESIUM 2.1 MG/DL (1.6-2.4); PHOSPHORUS 2.3 MG/DL (2.3-4.7); POTASSIUM 3.8 MMOL/L (3.6-5.0); SODIUM 138 MMOL/L (135-145)
[2020-01-22] MEDS: inSUlin ASPART (NovoLOG) 1 UNIT/0.01 ML (CHARGE PER UNIT) SC SCH (04:08)
[2020-01-22] MEDS: MAGNESIUM 1 GM/100 ML IVPB 100 ML IV SCH (04:08)
[2020-01-22] MEDS: KCL 20 MEQ TAB (K-DUR) PO SCH (04:08)
[2020-01-22] MEDS: POTASSIUM CL 10MEQ/50ML IVPB 50 ML IV SCH (04:08)
--- NOTE | 2020-01-22 05:13 | Pulmonary Progress Note ---
Subjective Time Seen by a Provider: 05:12 Subjective/Events-last exam Pt appears to be doing better. Sepsis Event Evaluation Height, Weight, BMI Height: '" Weight: lbs. oz. kg; 16.01 BMI Method: Exam Exam Vital Signs Date Time Temp Pulse Resp B/P (MAP) Pulse Ox O2 Delivery O2 Flow Rate FiO2 01/22/20 03:49 Vapotherm 30.00 35 01/22/20 03:00 77 22 125/52 (76) 92 Vapotherm 30.00 35.00 01/22/20 02:27 93 Vapotherm 30.00 35 01/22/20 02:00 84 19 115/59 (77) 94 Vapotherm 30.00 35.00 01/22/20 01:00 91 15 123/54 (77) 94 Vapotherm 30.00 35.00 01/22/20 01:00 91 01/22/20 00:00 Vapotherm 30.00 35 01/22/20 00:00 85 23 119/57 (77) 96 Vapotherm 30.00 35.00 01/21/20 23:00 83 22 123/55 (77) 92 Vapotherm 30.00 35.00 01/21/20 22:45 94 Vapotherm 30.00 35 01/21/20 22:00 81 21 116/52 (73) 94 Vapotherm 30.00 35.00 01/21/20 21:00 91 21 114/50 (71) 93 Vapotherm 30.00 35.00 01/21/20 20:00 Vapotherm 30.00 35 01/21/20 20:00 103 15 105/45 (65) 93 Vapotherm 30.00 35.00 01/21/20 19:30 37.0 01/21/20 19:07 94 Vapotherm 30.00 35 01/21/20 19:07 92 19 104/45 (64) 94 Vapotherm 30.00 35.00 01/21/20 19:00 93 21 104/45 (64) 94 Vapotherm 30.00 40.00 01/21/20 19:00 93 01/21/20 18:00 96 16 126/62 (83) 94 Vapotherm 30.00 40.00 01/21/20 17:00 96 20 155/78 (103) 94 Vapotherm 35.00 40.00 01/21/20 16:00 90 20 143/72 (95) 95 Vapotherm 35.00 40.00 01/21/20 16:00 94 Vapotherm 30.00 40 01/21/20 15:48 37.8 01/21/20 15:16 95 Vapotherm 30.00 50 01/21/20 15:00 89 20 141/70 (93) 95 Vapotherm 35.00 40.00 01/21/20 14:00 88 27 119/64 (82) 94 Vapotherm 35.00 40.00 01/21/20 13:00 92 17 131/63 (85) 91 Vapotherm 35.00 40.00 01/21/20 12:51 98 01/21/20 12:31 88 01/21/20 12:16 37.4 01/21/20 12:00 89 20 134/66 (88) 91 Vapotherm 35.00 40.00 01/21/20 11:26 96 Vapotherm 30.00 40 01/21/20 11:00 89 19 147/79 (101) 94 Vapotherm 35.00 40.00 01/21/20 10:00 81 19 130/68 (88) 95 Vapotherm 35.00 40.00 01/21/20 09:00 104 21 132/71 (91) 96 Vapotherm 35.00 40.00 01/21/20 08:00 103 20 127/67 (87) 96 Vapotherm 35.00 40.00 01/21/20 08:00 97 Vapotherm 30.00 40 01/21/20 07:41 Vapotherm 30.00 40.00 01/21/20 07:00 96 24 139/67 (91) 90 Vapotherm 35.00 40.00 01/21/20 06:36 91 01/21/20 06:25 97 Vapotherm 35.00 40 01/21/20 06:00 87 17 137/65 (89) 95 Vapotherm 35.00 40.00 I & O 01/22/20 07:00 Intake Total 1870 ml Output Total 2950 ml Balance -1080 ml Height & Weight Height: '" Weight: lbs. oz. kg; 16.01 BMI Method: General Appearance: No Apparent Distress, Chronically ill, Cachetic HEENT: PERRL/EOMI, TMs Normal, Normal ENT Inspection Neck: Normal Inspection, Supple Respiratory: Lungs Clear, Other (on Vapotherm) Cardiovascular: Regular Rate, Rhythm, No Murmur Capillary Refill: Less Than 3 Seconds Gastrointestinal: normal bowel sounds, non tender, soft Extremity: Swelling (upper and lower extremities) Neurologic/Psychiatric: Alert, Oriented x3 Skin: Normal Color, Warm/Dry Lymphatic: No Adenopathy Results Lab Laboratory Tests 01/21/20 02:30 01/22/20 03:25 Assessment/Plan Assessment/Plan Acute on chronic respiratory failure -doing well off vent PNA -- possible post obstructive pneumonia r/o cancer -will need repeat CT scan 8wks after discharge - solumedrol 40 Q 6 -Continue zosyn -MRSA is negative - SVNS -Pt is on xeralto, and plavix -Check cultures -COVID is negative -MRSA and influenza -- is negative -RVP 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
[2020-01-22] MEDS: FERROUS SULF 325 MG (IRON) TAB PO SCH ×2 (06:04→17:30)
[2020-01-22] MEDS: MULTIVIT W/MINERALS TAB (THERAGRAN M) PO SCH (06:04)
--- NOTE | 2020-01-22 08:22 | Progress Note - Hospitalist ---
Subjective HPI/CC On Admission Date Seen by Provider: January 22, 2020 Time Seen by Provider: 08:19 Moshe Soto is a 59-year-old male with past medical history of tobacco abuse who presented with fever and shortness of breath. He also reports having a cough. He denies any chest pain. He denies any nausea, vomiting, or abdominal pain. He denies any diarrhea. He denies any dysuria. He has no other complaints or concerns. He denies any recent travel. He denies any sick contacts. Subjective/Events-last exam Pt reports doing well today. "feeling good." Ready to transfer to the 4th floor. Objective Exam Vital Signs Vital Signs Date Time Temp Pulse Resp B/P (MAP) Pulse Ox O2 Delivery O2 Flow Rate FiO2 01/22/20 08:08 96 High Flow N/C 5.00 01/22/20 06:00 89 21 116/53 (74) 01/22/20 03:49 35 01/21/20 19:30 37.0 Capillary Refill : Less Than 3 SecondsLess Than 3 Seconds General Appearance: No Apparent Distress, Chronically ill, Cachetic Respiratory: Lungs Clear, No Accessory Muscle Use, Other (on Vapotherm) Cardiovascular: Regular Rate, Rhythm, No Murmur Gastrointestinal: Normal Bowel Sounds, Non Tender, Soft Extremity: Swelling Neurologic/Psychiatric: Alert, Oriented x3 Results/Procedures Lab Laboratory Tests 01/22/20 03:25 Patient resulted labs reviewed. Imaging: Reviewed Imaging Report Assessment/Plan Assessment and Plan Assess & Plan/Chief Complaint Severe sepsis Pneumonia Acute respiratory failure with hypoxia Possible left upper lobe mass Likely COPD Tobacco abuse Extubated 01/19, on Vapotherm- wean as able - Swing bed eval for oxygen titrate and PT/OT Pulmonology consulted, appreciate assistance COVID negative at outside facility, flu negative continue Zosyn - Change Solu-medrol to prednisone Sputum culture MURF - Leukocytosis improving Atrial fibrillation with rapid ventricular response Acute occlusion of artery of right lower extremity due to thromboembolism Cardiology consulted, appreciate assistance Underwent emergent angiogram with thrombolytics and balloon angioplasty 01/12 Continue Plavix and Xarelto Iron deficiency anemia Anemia of chronic disease Folic acid deficiency Hemoglobin, stable Iron studies consistent with both iron deficiency and anemia of chronic disease - Replete with Infed when more stable Folic acid level low Continue folic acid and iron supplementation Fecal occult blood positive Will need a colonoscopy at some point, likely outpatient due to respiratory status Severe protein calorie malnutrition Continue continuous tube feeds with intermittent free water boluses Dietary consulted DVT prophylaxis: Already receiving therapeutic anticoagulation Clinical Quality Measures DVT/VTE Risk/Contraindication: Risk Factor Score Per Nursin RFS Level Per Nursing on Admit: 4+=Very High BLANE JAIN MD January 22, 2020 08:22
--- NOTE | 2020-01-22 08:37 | Diagnostic Imaging Report ---
Portable erect AP chest at 3:20. Indication: Respiratory distress The heart size is stable when compared to the prior exam of 01/21/2020. The alveolar/interstitial pulmonary infiltrates involving the left mid lung and right lung base and to a lesser extent the left lower lobe seen previously are again evident and not significantly changed. The mediastinum is not widened. The osseous structures are intact. There is deformity of the right clavicle due to prior trauma. The central venous catheter on the left is unchanged in position. IMPRESSION: Stable chest. There has been no adverse change since the prior exam. Dictated by: Dictated on workstation # [id number]
[2020-01-22] MEDS: PANTOPRAZOLE 40 MG (PROTONIX) VIAL IV SCH (08:39)
[2020-01-22] MEDS: FOLIC ACID 1 MG TAB PO SCH (08:39)
[2020-01-22] MEDS: CLOPIDOGREL 75 MG (PLAVIX) TABLET PO SCH (08:39)
[2020-01-22] MEDS: meTOprolol TARTRATE 25 MG (LOPRESSOR) TABLET PO SCH ×2 (08:39→20:32)
[2020-01-22] MEDS: NICOTINE 14 MG (NICODERM) PATCH TD SCH (08:39)
[2020-01-22] MEDS: DIGOXIN 0.25 MG (LANOXIN) TAB PO SCH (08:39)
[2020-01-22] MEDS: guaiFENesin (MUCINEX) 600 MG TAB PO SCH ×2 (08:39→20:32)
--- NOTE | 2020-01-22 08:49 | Cardiology Progress Note ---
Subjective Date Seen by Provider: January 22, 2020 Time Seen by Provider: 08:47 Subjective/Events-last exam Patient sitting up in bed, reports dyspnea continues to improve. Denies any chest pain. Review of Systems General: No Chills, No Night Sweats, No Fatigue, No Malaise, No Appetite, No Other HEENT: No Head Aches, No Visual Changes, No Eye Pain, No Ear Pain, No Dyspha mariama, No Sinus Congestion, No Post Nasal Drip, No Sore Throat, No Other Pulmonary: No Dyspnea, No Cough, No Pleuritic Chest Pain, No Other Cardiovascular: No: Chest Pain, Palpitations, Orthopnea, Paroxysmal Noc. Dyspnea, Edema, Lt Headedness, Other Objective-Cardiology Exam Last Set of Vital Signs Vital Signs 01/22/20 01/22/20 01/22/20 01/22/20 01/22/20 03:49 06:00 06:37 08:00 08:08 Temp 37.7 Pulse 85 Resp 21 B/P (MAP) 116/53 (74) Pulse Ox 96 O2 Delivery High Flow N/C O2 Flow Rate 5.00 FiO2 35 Capillary Refill : Less Than 3 SecondsLess Than 3 Seconds I&O Intake and Output 01/22/20 00:00 Intake Total 2390 ml Output Total 3625 ml Balance -1235 ml Intake Oral 2000 ml IV Total 390 ml Output Urine Total 3625 ml # Bowel Movements 9 General: Alert, Cooperative, Mild Distress HEENT: Atraumatic, PERRLA Neck: Supple, No JVD, No Thyromegaly Lungs: Normal Air Movement, Other (bilateral rhonchi) Heart: Regular Rate, Normal S1, Normal S2, Other (systolic murmur) Abdomen: Normal Bowel Sounds, Soft, No Tenderness, No Hepatosplenomegaly, No Masses Extremities: No Clubbing, No Cyanosis, No Tenderness/Swelling, Other (edema to RUE improving) Skin: No Rashes, No Breakdown, No Significant Lesion Neuro: Normal Gait, Normal Speech, Strength at 5/5 X4 Ext, Normal Tone, Sensation Intact Psych/Mental Status: Mental Status NL, Mood NL Results Lab Laboratory Tests 01/22/20 03:25 A/P-Cardiology Admission Diagnosis Acute limb ischemia Chest pain Acute respiratory failure Hypokalemia Assessment/Plan Acute limb ischemia, heavy thrombus in the distal SFA and large thrombus in the proximal SFA, status post TNK injection and heparin then balloon angioplasty, reestablishment of the flow, palpable pedal pulse at this time, persistent cyanosis of the toes, maintained on Xarelto and Plavix New onset atrial fibrillation, most probably paroxysmal atrial fibrillation and had it in the past which caused the embolization to his leg. Currently back in sinus rhythm. Continue to monitor Acute respiratory failure, pneumonia and lung mass, patient extubated, improving slowly, managed by Dr. Eugene. Chest pain, resembling angina, no previous cardiac history, no active pain at this time, continue to monitor at this time Left upper lobe mass, Dr. Eugene following History of head trauma about 2 years ago, was in coma for about a month. Has been on disability. Cannot tolerate thrombolytics Tobaccoism, stopped smoking 3 weeks ago, encouraged to continue with smoking cessation Anemia, monitor H&H, Patient was seen and evaluated with Stacie, examination performed, management plan was discussed, agree with the current scribed note, I made few changes to the note using Italic font Patient was seen at bedside, feeling significantly better Breathing better Oxygen saturation is better, not receiving any supplement Lungs were clear to auscultation, heart is regular Good pedal pulse Okay to transfer to the floor Clinical Quality Measures DVT/VTE Risk/Contraindication: Risk Factor Score Per Nursin RFS Level Per Nursing on Admit: 4+=Very High STACIE PATEL January 22, 2020 8:49 am THERESA BELLAMY MD January 22, 2020 9:23 am
[2020-01-22] MEDS: NICOTINE PATCH REMOVAL TP SCH (09:04)
--- NOTE | 2020-01-22 09:41 | Occupational Ther Daily Note ---
OT Current Status-Daily Note Subjective Pt alert, lying in bed. Pt agrees to therapy. States that he is going to 4th floor today and that he feels much better. Pt also states that he is eating now and has an appetite. Mental Status/Objective Patient Orientation: Person, Place, Time, Situation Attachments: [place] Catheter, IV, Oxygen, Telemetry ADL-Treatment Pt stated that he did not want to get OOB or bathing because he will do that when he goes to 4th floor. Pt did agrees to wash hands and face. Pt was able to design assistant and hold wash clothe with both hands to effectively cleanse face and hands. L UE WNL AROM, R UE 90* shldr flexion. Pt completed 1 set 12 reps of shldr flexion on each side. Significantly decreased edema in R UE. After therapy, pt lying in bed with call light/phone in reach. All needs met in room. Therapy Code Descriptions/Definitions Functional [place] Measure: 0=Not Assessed/NA 4=Minimal Assistance 1=Total Assistance 5=Supervision or Setup 2=Maximal Assistance 6=Modified [place] 3=Moderate Assistance 7=Complete IndependenceSCALE: Activities may be completed with or without assistive devices. 5-Pkgicdmbse-pryrnof completes the activity by him/herself with no assistance from a helper. 5-Set-up or Clean-up Assistance-helper sets up or cleans up; patient completes activity. [place] assists only prior to or following the activity. 4-Supervision or Touching Assistance-helper provides verbal cues and/or touching/steadying and/or contact guard assistance as patient completes activity. Assistance may be provided throughout the activity or intermittently. 3-Partial/Moderate Assistance-helper does LESS THAN HALF the effort. [place] lifts, holds or supports trunk or limbs, but provides less than half the effort. 2-Substantial/Maximal Assistance-helper does MORE THAN HALF the effort. [place] lifts or holds trunk or limbs and provides more than half the effort. 1-Ctczypind-ckelkl does ALL the effort. Patient does none of the effort to complete the activity. Or, the assistance of 2 or more helpers is required for the patient to complete the activity. If activity was not attempted, code reason: 7-Patient Refused. 9-Not Applicable-not attempted and the patient did not perform the activity before the current illness, exacerbation or injury. 10-Not Attempted due to Environmental Limitations-(lack of equipment, weather restraints, etc.). 88-Not Attempted due to Medical Conditions or Safety Concerns. OT Short Term Goals Short Term Goals Time Frame: January 22, 2020 Eatin Oral hygiene: 4 Toileting hygiene: 3 Upper body dressin Lower body dressin Putting on/taking off footwear: 3 OT Long-Term Goals Long-Term Goals Time Frame: January 29, 2020 Eating (QC): 6 Oral Hygiene (QC): 6 Toileting Hygiene (QC): 5 Shower/Bathe Self (QC): 3 Upper Body Dressing (QC): 4 Lower Body Dressing (QC): 4 On/Off Footwear (QC): 4 Additional Goals: 1-Demonstrate ADL Tasks, 2-Verbalize Understanding, 3-ImproveStrength/[place] 1=Demonstrate adherence to instructed precautions during ADL tasks. 2=Patient will verbalize/demonstrate understanding of assistive devices/modifications for ADL. 3=Patient will improve strength/tolerance for activity to enable patient to perform ADL's. OT Education/Plan Problem List/Assessment Assessment: Decreased Activ Tolerance, Decreased UE Strength, Impaired Coordination, Impaired Funct Balance, Impaired Self-Care Skills, Restricted Funct UE ROM Discharge Recommendations Plan/Recommendations: Continue POC Treatment Plan/Plan of Care Patient would benefit from OT for education, treatment and training to promote independence in ADL's, mobility, safety and/or upper extremity function for ADL's. Plan of Care: ADL Retraining, Functional Mobility, UE Funct Exercise/Act Treatment Duration: January 29, 2020 Frequency: 5 times per week Estimated Hrs Per Day: .25 hour per day Agreement: Yes Rehab Potential: Fair Time/GCodes Start Time: 09:00 Stop Time: 09:18 Total Time Billed (hr/min): 18 Billed Treatment Time 1 visit-FA 1 (18 min) CANDI MITCHELL January 22, 2020 09:41
--- NOTE | 2020-01-22 10:08 | Physical Therapy Daily Note ---
PT Daily Note-Current Subjective Pt is getting ready to move down to 4th floor. He is agreeable to treatment. Mental Status Patient Orientation: Person, Place, Time, Situation Attachments: Oxygen, IV Transfers SCALE: Activities may be completed with or without assistive devices. 6-Mzwzkidati-hhywmjz completes the activity by him/herself with no assistance from a helper. 5-Set-up or Clean-up Assistance-helper sets up or cleans up; patient completes activity. [place] assists only prior to or following the activity. 4-Supervision or Touching Assistance-helper provides verbal cues and/or touching/steadying and/or contact guard assistance as patient completes activity. Assistance may be provided throughout the activity or intermittently. 3-Partial/Moderate Assistance-helper does LESS THAN HALF the effort. [place] lifts, holds or supports trunk or limbs, but provides less than half the effort. 2-Substantial/Maximal Assistance-helper does MORE THAN HALF the effort. [place] lifts or holds trunk or limbs and provides more than half the effort. 8-Qclwakadt-iltkhj does ALL the effort. Patient does none of the effort to complete the activity. Or, the assistance of 2 or more helpers is required for the patient to complete the activity. If activity was not attempted, code reason: 7-Patient Refused. 9-Not Applicable-not attempted and the patient did not perform the activity before the current illness, exacerbation or injury. 10-Not Attempted due to Environmental Limitations-(lack of equipment, weather restraints, etc.). 88-Not Attempted due to Medical Conditions or Safety Concerns. Weight Bearing Right Lower Extremity: Right Weight Bearing/Tolerated Left Lower Extremity: Left Weight Bearing/Tolerated Gait Training Does the Patient Walk?: No and Walking Goal IS indicated Exercises Supine Ex: LE Protocol, Knee to chest, Resisted flex/ext Supine Reps: 20 Pt is able to provide 50% assist for the supine exercises. Assessment Current Status: Poor Progress Pt continues to deny sitting edge of bed or performing transfers. He is providing 50% assist for supine exercises. PT Short Term Goals Short Term Goals Time Frame: January 24, 2020 Roll Left & Right: 4 Sit to lyin Lying to sitting on side of be: 4 Sit to stand: 4 Chair/lhm-bo-mhqhw transfer: 4 Toilet transfer: 4 Walk 10 feet: 4 Walk 50 feet with two turns: 4 PT Skilled Nursing Goals Skilled Nursing Goals PT Skilled Nursing Goals Time Frame: February 07, 2020 Roll Left & Right (QC): 6 Sit to Lying (QC): 6 Lying-Sitting on Side/Bed(QC): 6 Sit to Stand (QC): 6 Chair/Sjo-mh-Pliqo Xfer(QC): 6 Toilet Transfer (QC): 6 Does the Patient Walk: Yes Walk 10 feet (QC): 6 Walk 50ft with 2 Turns (QC): 6 Walk 150 ft (QC): 6 PT Plan Treatment/Plan Treatment Plan: Continue Plan of Care Treatment Plan: Bed Mobility, Education, Functional Activity [place], Functional Strength, Gait, Safety, Therapeutic Exercise, Transfers Treatment Duration: February 07, 2020 Frequency: 6 times per week Estimated Hrs Per Day: .25 hour per day (to .5) Patient and/or Family Agrees t: Yes Time/GCodes Time In: 0950 Time Out: 1005 Total Billed Treatment Time: 15 Total Billed Treatment 1, ex (15) LYDIA BELLA PT January 22, 2020 10:08
--- NOTE | 2020-01-22 10:09 | NUR ---
Swing Bed Note: Qualifies for swing bed for continued need of IV abx (Pneumonia) with continued need for oxygen monitoring et weaning (Respiratory Failure, COPD) et continued Physical et Occupational Therapies d/t cardiorespiratory debility. On the acute hospital stay patient was also found to have total occlusion of the right superficial femoral artery d/t thrombus. Patient treated with oral anticoagulants s/p thrombectomy. He continues to c/o numbness/tingling to the right lower extremity et will benefit from continued intensive therapies for rehabilitation. His ultimate goal [place] his prior independent level. He lives alone et was completely independent with ADL's prior to this hospitalization. Anticipate admission to swing bed tomorrow a.m. 01/23/20. Thank you for this referral.
[2020-01-22] MEDS: oxyCODONE 5 MG/5 ML ORAL SOLN (roxiCODONE) 5 ML UDC PO PRN (15:36)
[2020-01-22] MEDS: RIVAROXABAN 20 MG TABLET (XARELTO) PO SCH (17:30)
[2020-01-22] MEDS: morphine INJ 4 MG/ML 1 ML (VIAL/SYRINGE) IVP PRN (21:53)
--- NOTE | 2020-01-22 22:00 | NUR ---
PT RECEIVED BED BATH AT THIS TIME. TOLERATED WELL.
[2020-01-23] MEDS: PIPERACILLIN/TAZO 4.5 GM/NS 100 ML IV SCH ×4 (03:07→09:32)
[2020-01-23] MEDS: RT-ALBUTEROL/IPRATROPIUM 3 ML (DUONEB) VIAL INH SCH ×3 (03:13→10:23)
[2020-01-23 04:08] VITALS: BP 103/69
[2020-01-23 05:19] LABS: BASOPHILS % (AUTO) 0 % (0-10); EOSINOPHILS % (AUTO) 0 % (0-10); HEMATOCRIT 30 % (40-54); HEMOGLOBIN 9.3 G/DL (13.3-17.7); LYMPHOCYTES # (AUTO) 1.7 X 10^3 (1.0-4.0); LYMPHOCYTES % (AUTO) 9 % (12-44); MEAN CORPUSCULAR HEMOGLOBIN 31 PG (25-34); MEAN CORPUSCULAR HGB CONC 31 G/DL (32-36); MEAN CORPUSCULAR VOLUME 98 FL (80-99); MEAN PLATELET VOLUME 9.1 FL (7.4-10.4); MONOCYTES # (AUTO) 0.9 X 10^3 (0.0-1.0); MONOCYTES % (AUTO) 5 % (0-12); NEUTROPHILS # (AUTO) 15.6 X 10^3 (1.8-7.8); NEUTROPHILS % (AUTO) 86 % (42-75); PLATELET COUNT 775 10^3/uL (130-400); RED CELL DISTRIBUTION WIDTH 16.3 % (10.0-14.5); WHITE BLOOD COUNT 18.2 10^3/uL (4.3-11.0)
[2020-01-23 05:23] LABS: CHLORIDE 103 MMOL/L (98-107); POTASSIUM 3.5 MMOL/L (3.6-5.0); SODIUM 139 MMOL/L (135-145)
[2020-01-23 05:24] LABS: CALCIUM 7.2 MG/DL (8.5-10.1)
[2020-01-23 05:25] LABS: GLUCOSE 79 MG/DL (70-105)
[2020-01-23 05:26] LABS: CARBON DIOXIDE 29 MMOL/L (21-32)
[2020-01-23 05:29] LABS: CREATININE SERUM 0.45 MG/DL (0.60-1.30); GFR ESTIMATED > 60
[2020-01-23 05:30] LABS: BUN/CREATININE RATIO 22
[2020-01-23] MEDS: oxyCODONE 5 MG/5 ML ORAL SOLN (roxiCODONE) 5 ML UDC PO PRN ×2 (06:00→10:04)
[2020-01-23] MEDS: FERROUS SULF 325 MG (IRON) TAB PO SCH (06:00)
[2020-01-23] MEDS: MULTIVIT W/MINERALS TAB (THERAGRAN M) PO SCH (06:00)
--- NOTE | 2020-01-23 06:18 | Pulmonary Progress Note ---
Subjective Time Seen by a Provider: 06:12 Subjective/Events-last exam Pt appears to be doing better. Sepsis Event Evaluation Height, Weight, BMI Height: '" Weight: lbs. oz. kg; 16.01 BMI Method: Exam Exam Vital Signs Date Time Temp Pulse Resp B/P (MAP) Pulse Ox O2 Delivery O2 Flow Rate FiO2 01/23/20 04:08 37.3 82 18 103/69 (80) 94 High Flow N/C 5.00 01/23/20 01:00 73 01/22/20 23:56 37.5 79 18 103/65 (78) 96 High Flow N/C 5.00 01/22/20 22:04 95 High Flow N/C 5.00 01/22/20 20:30 High Flow N/C 5.00 01/22/20 20:20 36.9 93 15 108/62 (77) 94 High Flow N/C 5.00 01/22/20 19:00 84 01/22/20 18:51 90 High Flow N/C 7.00 01/22/20 17:32 82 110/69 (83) 01/22/20 16:19 36.8 76 20 107/77 (87) 94 High Flow N/C 5.00 01/22/20 14:25 89 High Flow N/C 5.00 01/22/20 12:55 83 01/22/20 12:00 37.0 81 20 136/82 (100) 95 High Flow N/C 5.00 01/22/20 10:40 37.2 91 16 167/91 (116) 95 High Flow N/C 5.00 01/22/20 10:37 93 High Flow N/C 5.00 01/22/20 08:08 96 High Flow N/C 5.00 01/22/20 08:00 37.7 01/22/20 08:00 Nasal Cannula 5.00 01/22/20 06:37 85 I & O 01/23/20 07:00 Intake Total 1900 ml Output Total 3525 ml Balance -1625 ml Height & Weight Height: '" Weight: lbs. oz. kg; 16.01 BMI Method: General Appearance: No Apparent Distress, Chronically ill, Cachetic HEENT: PERRL/EOMI, TMs Normal, Normal ENT Inspection Neck: Normal Inspection, Supple Respiratory: Lungs Clear, No Accessory Muscle Use, Other (on Vapotherm) Cardiovascular: Regular Rate, Rhythm, No Murmur Capillary Refill: Less Than 3 Seconds Gastrointestinal: normal bowel sounds, non tender, soft Extremity: Swelling Neurologic/Psychiatric: Alert, Oriented x3 Skin: Normal Color, Warm/Dry Lymphatic: No Adenopathy Results Lab Laboratory Tests 01/22/20 03:25 01/23/20 05:05 Assessment/Plan Assessment/Plan Acute on chronic respiratory failure -doing well off vent PNA -- possible post obstructive pneumonia r/o cancer -will need repeat CT scan 8wks after discharge - prednisone -Continue zosyn -MRSA is negative - SVNS -Pt is on xeralto, and plavix -Check cultures -COVID is negative -MRSA and influenza -- is negative -RVP Hypokalemia -replace Acute occlusion of artery of right lower extremity s/p abdominal aorta gram with TPA via cath anemia -monitor - protonix Tobacco use with probable COPD JENI DENISE DO January 23, 2020 06:17
[2020-01-23] MEDS ORDERED: predniSONE 20 MG TAB PO SCH (07:00)
[2020-01-23 07:29] VITALS: BP 85/55
--- NOTE | 2020-01-23 08:16 | Diagnostic Imaging Report ---
Indication: Shortness of breath Portable chest 8:10 AM There are emphysematous changes in the lungs. There is some increased density in the right upper lobe, right medial lung base and left perihilar region. The right upper lobe infiltrate appears increased slightly from the previous day. The other 2 areas of infiltrate appear similar. IMPRESSION: COPD. There is infiltrate present in both lungs suspicious for pneumonia. This appears slightly worse compared to the previous day. Dictated by: Dictated on workstation # [id number]
[2020-01-23] MEDS: PANTOPRAZOLE 40 MG (PROTONIX) VIAL IV SCH (09:29)
[2020-01-23] MEDS: NICOTINE PATCH REMOVAL TP SCH (09:29)
[2020-01-23] MEDS: meTOprolol TARTRATE 25 MG (LOPRESSOR) TABLET PO SCH (09:30)
[2020-01-23] MEDS: guaiFENesin (MUCINEX) 600 MG TAB PO SCH (09:30)
[2020-01-23] MEDS: NICOTINE 14 MG (NICODERM) PATCH TD SCH (09:30)
[2020-01-23] MEDS: DIGOXIN 0.25 MG (LANOXIN) TAB PO SCH (09:30)
[2020-01-23] MEDS: FOLIC ACID 1 MG TAB PO SCH (09:30)
[2020-01-23] MEDS: CLOPIDOGREL 75 MG (PLAVIX) TABLET PO SCH ×2 (09:32→10:12)
--- NOTE | 2020-01-23 10:13 | Progress Note - Cardiology ---
Cardiology SOAP Progress Note Subjective: He notes gen numbness No chest pain or palp or syncope Shortness of breath with mild exertion Mild, bilat leg swelling No n/v/d Objective: I&O/Vital Signs 01/22/20 01/23/20 01/23/20 01/23/20 23:56 01:00 04:08 07:00 Temp 37.5 37.3 Pulse 79 73 82 95 Resp 18 18 B/P (MAP) 103/65 (78) 103/69 (80) Pulse Ox 96 94 O2 Delivery High Flow N/C High Flow N/C O2 Flow Rate 5.00 5.00 01/23/20 01/23/20 07:29 07:29 Temp 36.8 Pulse 106 Resp 18 B/P (MAP) 85/55 (65) Pulse Ox 90 89 O2 Delivery High Flow N/C High Flow N/C O2 Flow Rate 13.00 01/23/20 00:00 Intake Total 1370 ml Output Total 1475 ml Balance -105 ml Constitutional: AAO x 3, PERRL, other (thin and somewhat cachectic) Respiratory: chest is bilaterally symmetric, other (decreased breath sounds at bases bilaterally.) Cardiovascular: regular rate-rhythm; No irregularly irregular, No extra beats; S1 and S2; No diastolic murmur; systolic murmur (soft BETSY at card base) Gastrointestional: No tender; soft; No guarding; audible bowel sounds Extremities: normal range of motion, non-tender, normal inspection, swelling (mild, bilateral leg edema), other (bluish discoloration of the tips of the toes of the R foot) Neurologic/Psychiatric: oriented x 3, other (moves all limbs equally; power 4/5 bilat) Skin: normal color, warm/dry; No cyanosis Results/Procedures: Labs Laboratory Tests 01/23/20 05:05: White Blood Count 18.2H, Red Blood Count 3.03L, Hemoglobin 9.3L, Hematocrit 30L, Mean Corpuscular Volume 98, Mean Corpuscular Hemoglobin 31, Mean Corpuscular Hemoglobin Concent 31L, Red Cell Distribution Width 16.3H, Platelet Count 775H, Mean Platelet Volume 9.1, Neutrophils (%) (Auto) 86H, Lymphocytes (%) (Auto) 9L, Monocytes (%) (Auto) 5, Eosinophils (%) (Auto) 0, Basophils (%) (Auto) 0, Neutrophils # (Auto) 15.6H, Lymphocytes # (Auto) 1.7, Monocytes # (Auto) 0.9, Eosinophils # (Auto) 0.0, Basophils # (Auto) 0.0, Sodium Level 139, Potassium Level 3.5L, Chloride Level 103, Carbon Dioxide Level 29, Anion Gap 7, Blood Urea Nitrogen 10, Creatinine 0.45L, Estimat Glomerular Filtration Rate > 60, BUN/Creatinine Ratio 22, Glucose Level 79, Calcium Level 7.2L Microbiology 01/20/20 C. difficile GDH Antigen & Toxins - Final, Complete 01/17/20 Gram Stain - Final, Complete 01/17/20 Sputum Culture - Final, Complete Usual upper respiratory shae YEAST 01/12/20 Blood Culture - Final, Complete No growth Laboratory Tests 01/22/20 03:25 01/23/20 05:05 A/P: Assessment: Acute limb ischemia due to thromboembolic occlusion of R distal SFA, and large thrombus in the R proximal SFA, treated with TNK and heparin and [employer] by Dr Watson with cheondoism of antegrade flow and with R blue-toe syndrome. Maintained on rivaroxaban and clopidogrel PAF Acute respiratory failure, pneumonia and lung mass, required mech vent (now off mech vent) 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 Has been on disability Tobaccoism, stopped smoking in December 2019, advised to continue to refrain Anemia of undetermined etiology, managed by the Med Svce Plan: * I interviewed and examined the patient and reviewed his records * Complex management due to multiple comorbidities (outlined above) * Continue current regimen * Replenish K * Monitor labs DELIA TRIANA MD FACP FAC CCDS January 23, 2020 10:13
[2020-01-23] MEDS ORDERED: KCL 10 MEQ TAB (MICRO K) PO NR (10:30)
--- NOTE | 2020-01-23 10:32 | Discharge Summary ---
Diagnosis/Chief Complaint Date of Admission Jan 11, 2020 at 15:52 Date of Discharge Discharge Date: January 23, 2020 Admission Diagnosis severe sepsis due to pneumonia Primary Care No,Local Physician Discharge Diagnosis (1) Acute occlusion of artery of lower extremity due to thromboembolism Status: Acute (2) Severe sepsis Status: Acute (3) Pneumonia Status: Acute (4) COPD (chronic obstructive pulmonary disease) Status: Chronic (5) Tobacco abuse Status: Chronic (6) Acute respiratory failure with hypoxia Status: Acute (7) Lung mass Status: Acute (8) Atrial fibrillation with rapid ventricular response Status: Acute (9) Shock Status: Resolved (10) Iron deficiency anemia Status: Chronic (11) Anemia of chronic disease Status: Chronic (12) Folic acid deficiency Status: Chronic (13) Severe protein-calorie malnutrition Status: Acute Discharge Summary Discharge Physical Exam Allergies: Coded Allergies: No Known Drug Allergies (Verified , 07/11/09) Vitals & I&Os Vital Signs Date Time Temp Pulse Resp B/P (MAP) Pulse Ox O2 Delivery O2 Flow Rate FiO2 01/23/20 07:29 36.8 106 18 85/55 (65) 89 High Flow N/C 01/23/20 07:29 13.00 01/22/20 03:49 35 Hospital Course Pt was admitted to the hospital for sepsis from pneumonia and developed acute respiratory failure requiring mechanical ventilation. 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 Labs (last 24 hrs) Laboratory Tests 01/23/20 05:05: White Blood Count 18.2H, Red Blood Count 3.03L, Hemoglobin 9.3L, Hematocrit 30L, Mean Corpuscular Volume 98, Mean Corpuscular Hemoglobin 31, Mean Corpuscular Hemoglobin Concent 31L, Red Cell Distribution Width 16.3H, Platelet Count 775H, Mean Platelet Volume 9.1, Neutrophils (%) (Auto) 86H, Lymphocytes (%) (Auto) 9L, Monocytes (%) (Auto) 5, Eosinophils (%) (Auto) 0, Basophils (%) (Auto) 0, Neutrophils # (Auto) 15.6H, Lymphocytes # (Auto) 1.7, Monocytes # (Auto) 0.9, Eosinophils # (Auto) 0.0, Basophils # (Auto) 0.0, Sodium Level 139, Potassium Level 3.5L, Chloride Level 103, Carbon Dioxide Level 29, Anion Gap 7, Blood Urea Nitrogen 10, Creatinine 0.45L, Estimat Glomerular Filtration Rate > 60, BUN/Creatinine Ratio 22, Glucose Level 79, Calcium Level 7.2L Microbiology 01/20/20 C. difficile GDH Antigen & Toxins - Final, Complete 01/17/20 Gram Stain - Final, Complete 01/17/20 Sputum Culture - Final, Complete Usual upper respiratory shae YEAST 01/12/20 Blood Culture - Final, Complete No growth Patient resulted labs reviewed. Pending Labs Laboratory Tests 01/23/20 05:05: White Blood Count 18.2, Red Blood Count 3.03, Hemoglobin 9.3, Hematocrit 30, Mean Corpuscular Volume 98, Mean Corpuscular Hemoglobin 31, Mean Corpuscular Hemoglobin Concent 31, Red Cell Distribution Width 16.3, Platelet Count 775, Mean Platelet Volume 9.1, Neutrophils (%) (Auto) 86, Lymphocytes (%) (Auto) 9, Monocytes (%) (Auto) 5, Eosinophils (%) (Auto) 0, Basophils (%) (Auto) 0, Neutrophils # (Auto) 15.6, Lymphocytes # (Auto) 1.7, Monocytes # (Auto) 0.9, Eosinophils # (Auto) 0.0, Basophils # (Auto) 0.0, Sodium Level 139, Potassium Level 3.5, Chloride Level 103, Carbon Dioxide Level 29, Anion Gap 7, Blood Urea Nitrogen 10, Creatinine 0.45, Estimat Glomerular Filtration Rate > 60, BUN/Creatinine Ratio 22, Glucose Level 79, Calcium Level 7.2 Imaging: Reviewed Imaging Report Discharge Home Medications: Active Scripts Active Reported Multivitamin 1 Each Tablet 1 Each PO DAILY Aleve (Naproxen Sodium) 220 Mg Capsule 440 Mg PO Q8H PRN Instructions to patient/family Please see electronic discharge instructions given to patient. Clinical Quality Measures DVT/VTE Risk/Contraindication: Risk Factor Score Per Nursin RFS Level Per Nursing on Admit: 4+=Very High BLANE JAIN MD January 23, 2020 10:32
== END 2020-01-23 10:54 | disposition swing bed (61) | DRG 853 ==
LOC: ICU 15:52 → 4TH 01-12 18:17 → ICU 01-13 11:46 → 4TH 01-22 10:15
PROVIDERS: ADMIT Family Medicine; ATTEND Family Medicine
PROC: 047K3ZZ Dilation of Right Femoral Artery, Percutaneous Approach (ICD-10-PCS; principal; 2020-01-13)
PROC: 047M3ZZ Dilation of Right Popliteal Artery, Percutaneous Approach (ICD-10-PCS; 2020-01-13)
PROC: 3E05317 Introduction of Other Thrombolytic into Peripheral Artery, Percutaneous Approach (ICD-10-PCS; 2020-01-13)
PROC: B41D1ZZ Fluoroscopy of Aorta and Bilateral Lower Extremity Arteries using Low Osmolar Contrast (ICD-10-PCS; 2020-01-13)
PROC: B41F1ZZ Fluoroscopy of Right Lower Extremity Arteries using Low Osmolar Contrast (ICD-10-PCS; 2020-01-13)
PROC: 5A1945Z Respiratory Ventilation, 24-96 Consecutive Hours (ICD-10-PCS; 2020-01-17)
PROC: 0BH17EZ Insertion of Endotracheal Airway into Trachea, Via Natural or Artificial Opening (ICD-10-PCS; 2020-01-17)
DX: A41.9 Sepsis, unspecified organism (principal); R65.20 Severe sepsis without septic shock; J18.9 Pneumonia, unspecified organism; J44.0 Chronic obstructive pulmonary disease with (acute) lower respiratory infection; J96.21 Acute and chronic respiratory failure with hypoxia; I74.3 Embolism and thrombosis of arteries of the lower extremities; R64 Cachexia; E43 Unspecified severe protein-calorie malnutrition; R57.9 Shock, unspecified; G72.81 Critical illness myopathy; I48.0 Paroxysmal atrial fibrillation; E86.0 Dehydration; D63.8 Anemia in other chronic diseases classified elsewhere; E87.6 Hypokalemia; D50.9 Iron deficiency anemia, unspecified; F17.210 Nicotine dependence, cigarettes, uncomplicated; R91.8 Other nonspecific abnormal finding of lung field; Z20.828 Contact with and (suspected) exposure to other viral communicable diseases; I95.9 Hypotension, unspecified; E53.8 Deficiency of other specified B group vitamins
CPT/HCPCS: 36246; 36415; 36600; 71045; 71275; 75630; 75774; 80048; 80053; 80306; 81000; 82274; 82607; 82728; 82746; 82805; 82962; 83540; 83605; 83735; 83880; 84100; 84145; 84478; 85007; 85025; 85027; 85347; 85379; 85384; 85610; 85730; 86850; 86900; 86901; 86920; 87040; 87070; 87081; 87205; 87324; 87449; 87631; 87804; 87899; 93005; 93306; 94002; 94003; 94640; 94799

== ENCOUNTER 2020-01-23 09:47 | Inpatient (IN) | payer MEDICARE ==
[~2020-01-23] VITALS: Ht 175.3 cm; Wt 64.0 kg
[~2020-01-23 09:47] MED LIST changes: +MULT-1136 PO; +NAPR220C11 PO
[2020-01-23] MEDS ORDERED: polyethylene glycoL POWDER 17 GM (MIRALAX) PACK PO PRN (11:00)
[2020-01-23] MEDS ORDERED: ONDANSETRON 4 MG/2 ML (SDV) Z0FRAN IV PRN (11:00)
[2020-01-23] MEDS ORDERED: PATIENT MAY USE OWN MEDS, ALL PO SCH (11:00)
[2020-01-23] MEDS ORDERED: ANTACID SUSP 30 ML UDC (MYLANTA) PO PRN (11:00)
[2020-01-23] MEDS ORDERED: CATHETER FLUSH 10 ML SYR IV PRN (11:00)
[2020-01-23] MEDS ORDERED: MILK OF MAGNESIA 400 MG/5 ML 30 ML UDC PO PRN (11:00)
--- NOTE | 2020-01-23 11:25 | Physical Therapy Evaluation ---
PT Evaluation-General Medical Diagnosis Admission Date January Medical Diagnosis: sepsis/respiratory distress Onset Date: Jan 11, 2020 Therapy Diagnosis Therapy Diagnosis: generalized weakness/debility Precautions Precautions/Isolations: Fall Prevention, Standard Precautions Weight Bear Status Right Lower Extremity: Right Weight Bearing/Tolerated Left Lower Extremity: Left Weight Bearing/Tolerated Referral Physician: Demarco Reason for Referral: Evaluation/Treatment Medical History Pertinent Medical History: Atrial Fib, Alcoholism, Smoking Additional Medical History lung mass/emergent angiogram with thrombolytics and balloon angioplasty 01/13/20 Current History SWB status Reviewed History: Yes Social History Home: Single Level Current Living Status: Alone Prior Prior Level of Function SCALE: Activities may be completed with or without assistive devices. 1-Pcocgzxkmx-pxaapty completes the activity by him/herself with no assistance from a helper. 5-Set-up or Clean-up Assistance-helper sets up or cleans up; patient completes activity. [place] assists only prior to or following the activity. 4-Supervision or Touching Assistance-helper provides verbal cues and/or touching/steadying and/or contact guard assistance as patient completes activity. Assistance may be provided throughout the activity or intermittently. 3-Partial/Moderate Assistance-helper does LESS THAN HALF the effort. [place] lifts, holds or supports trunk or limbs, but provides less than half the effort. 2-Substantial/Maximal Assistance-helper does MORE THAN HALF the effort. [place] lifts or holds trunk or limbs and provides more than half the effort. 3-Uysfbuump-nxdmfk does ALL the effort. Patient does none of the effort to complete the activity. Or, the assistance of 2 or more helpers is required for the patient to complete the activity. If activity was not attempted, code reason: 7-Patient Refused. 9-Not Applicable-not attempted and the patient did not perform the activity before the current illness, exacerbation or injury. 10-Not Attempted due to Environmental Limitations-(lack of equipment, weather restraints, etc.). 88-Not Attempted due to Medical Conditions or Safety Concerns. Bed Mobility: 6 Transfers (B,C,W/C): 6 Gait: 6 Stairs: 6 Indoor Mobility (Ambulation): Independent Stairs: Independent Prior Devices Use: None PT Evaluation-Current Subjective Patient agrees to PT. Requested to dress. Pain Numeric Pain Scale: 0-No Pain Location: No Pain Reported Objective Patient Orientation: Confused Attachments: Oxygen (10L HF), Jackson Catheter ROM/Strength ROM Lower Extremities bilateral LE WFL Strength Lower Extremities 3-/5 grossly bilateral LE Integumentary/Posture Integumentary refer to nursing notes Bowel Incontinence: Yes Bladder Incontinence: Jackson Cath Posture WFL/slightly kyphtoic Neuromuscular (Tone, Coordination, Reflexes) grossly intact Sensory Vision: Functional Hearing: Functional Sensation Right Lower Extremit: Impaired Sensation Left Lower Extremity: Impaired Transfers Roll Left to Right (QC): 2 Sit to Lying (QC): 2 Lying to Sitting/Side of Bed(Q: 2 Sit to Stand (QC): 1 Chair/Mvj-wx-Odibr Xfer(QC): 1 Toilet Transfer (QC): 88 Car Transfer (QC): 88 SPT with blocking bilateral knees to assist patient to stand erect Gait Does the Patient Walk?: No and Walking Goal IS indicated Mode of Locomotion: Walk Anticipated Mode of Locomotion: Walk Walk 10 feet (QC): 88 Walk 50 ft with 2 Turns(QC): 88 Walk 150 ft (QC): 88 Walking 10ft/uneven surface-QC: 88 Gait Assistive Device: FWW Comments/Gait Description unable to stand with FWW requiring PT assistance Wheelchair Training Does the Pt Use a Wheelchair?: Yes Wheel 50 ft with 2 turns (QC): 88 Wheel 150 ft (QC): 88 Stairs 1 Step (curb) (QC): 88 4 Steps (QC): 88 12 Steps (QC): 88 Balance Sitting Static: Fair Sitting Dynamic: Fair Standing Static: Poor Standing Dynamic: Poor Picking up an Object (QC): 88 Treatment Bilateral LE AAROM in supine and sit 10 reps each AP, HS, SLR, Abd/add, LAQ/assisted patient with dressing upper body and donning briefs due to bowel incontinence. Assessment/Needs 59 y.o. male, will benefit from skilled PT to address functional strength and mobility to improve current LOF to safely return to home or care facility at maximum LOF. Rehab Potential: Guarded PT Short Term Goals Short Term Goals Time Frame: February 07, 2020 Roll Left & Right: 3 Sit to lyin Lying to sitting on side of be: 3 Sit to stand: 3 Chair/pgk-yk-zpvho transfer: 3 Toilet transfer: 3 Walk 10 feet: 3 PT Nursing Home Goals Disaster Recovery Coordinator Goals PT Nursing Home Goals Time Frame: Feb 21, 2020 Roll Left & Right (QC): 5 Sit to Lying (QC): 5 Lying-Sitting on Side/Bed(QC): 5 Sit to Stand (QC): 5 Chair/Qlu-fa-Tlrct Xfer(QC): 5 Toilet Transfer (QC): 5 Car Transfer (QC): 5 Does the Patient Walk: Yes Walk 10 feet (QC): 5 Walk 50ft with 2 Turns (QC): 5 Walk 150 ft (QC): 5 Walking 10ft on Uneven Surface: 5 1 Step (curb) (QC): 5 4 Steps (QC): 5 12 Steps (QC): 5 Picking up an Object (QC): 5 Does the Pt use WC or Scooter?: No Wheel 50 feet with 2 turns (QC: 9 Type: N/A Wheel 150 feet: 9 Type: N/A PT Plan Problem List Problem List: Activity Tolerance, Functional Strength, Safety, Balance, Gait, Bed Mobility Treatment/Plan Treatment Plan: Continue Plan of Care Treatment Plan: Bed Mobility, Education, Functional Activity Lorena, Functional Strength, Gait, Safety, Therapeutic Exercise, Transfers Treatment Duration: Feb 21, 2020 Frequency: 6 times per week Estimated Hrs Per Day: .25 hour per day Patient and/or Family Agrees t: Yes Time/GCodes Time In: 1057 Time Out: 1123 Total Billed Treatment Time: 26 Total Billed Treatment 1 visit EVModC 11 min FA 15 min IDRIS ONEIL PT January 23, 2020 11:25
--- NOTE | 2020-01-23 12:17 | NUR ---
Swing Bed Note: Qualifies for swing bed for continued need of IV abx (Pneumonia) with continued need for oxygen monitoring et weaning (Respiratory Failure, COPD) et continued Physical et Occupational Therapies d/t cardiorespiratory debility. On the acute hospital stay patient was also found to have total occlusion of the right superficial femoral artery d/t thrombus. Patient treated with oral anticoagulants s/p thrombectomy. He continues to c/o numbness/tingling to the right lower extremity et will benefit from continued intensive therapies for rehabilitation. His ultimate goal is to return to his home on the [place] at his prior independent level. He lives alone et was completely independent with ADL's prior to this hospitalization. Anticipate admission to swing bed tomorrow a.m. 01/23/20. Thank you for this referral.
--- NOTE | 2020-01-23 12:17 | NUR ---
Admission Drug Regimen Review: Date: 01/23/20 Time: 1217 Review Completed, No Issues found
--- NOTE | 2020-01-23 13:39 | ST Dysphagia Evaluation ---
Speech Evaluation-General Medical Diagnosis sepsis/respiratory distress Onset Date: Jan 11, 2020 Therapy Diagnosis Therapy Diagnosis: Oropharyngeal Dysphagia Precautions Precautions: Aspiration Referral Referring Physician: Dr. Pal Medical History Pertinent Medical History: Atrial Fib, Alcoholism, Smoking Reviewed History: Yes Social History Current Living Status: Alone Speech PLF/Current-Dysphagia Prior Level of Function Patient lived at home alone where he was independent with his daily needs. Subjective Patient was pleasant and cooperative with the Bedside Dysphagia Evaluation. Chary ent was finishing up his noon meal when I entered the room. Patient was talkative and coherent. Oral Motor Skills Dentition: Natural, Tumbled, Stained Ability to Follow Directions: Excellent Oral Expression Ability: No Impairment Face Facial Symmetry: Symmetrical Oral-Facial Assessment Oral-Facial Dentition: Normal Labial Seal Description: Normal Smile: Normal Puff Cheeks: Normal Lingual Protrusion: Normal Lingual ROM: Normal Lingual Strength: Normal Voluntary Cough: Yes Can Clear Throat Volitionally: Yes Dysphagia Evaluation Consistencies Presented: Regular, Thin Liquid, Mechanical Soft, Pureed Oral Phase is within normal range of function for all consistencies. Pharyngeal Phase is within normal range of function for all consistencies. Dietary Recommendations: Mechanical Soft Liquid Recommendations: Thin Swallowing Precautions: Alternate Liquids/Solids, Double Swallow, Decreased Bolus 1/2 Tsp, Liquids from Straw, Small Bites and Sips, Sitting Upright 90 Degrees, Sitting 90 Degrees 30 Post Intake Dysphagia Evaluation Summary Patient is a 59 y/o male who was admitted to the hospital via ED. Patient admit dx of sepsis due to pneumonia. Patient was evaluated on Swingbed per physician order. Patient is currently on Dysphagia II diet level with thin liquids. Patient is eating 100% of his meals and supplements. He demonstrated adequa te/safe intake of regular texture, however discussion with the patient of upgrade was declined. He states he likes this level "just fine" and with 100% intake is most likely the best level for him at this time. Patient does not require any further ST services at this time. Speech-Plan Patient/Family Goals Patient/Family Goals: Patient states he is planning to move in with his brother upon discharge from the hospital. Treatment Plan Speech Therapy Treatment Plan: Discontinue ST Treatment Duration: January 23, 2020 Frequency: 1 time per week Estimated Hrs Per Day: .25 hour per day Rehab Potential: Guarded Barriers to Learning: Patient's medical status upon admit Pt/Family Agrees to Plan: Yes Safety Risks/Education Teaching Recipient: Patient Teaching Methods: Demonstration, Discussion Response to Teaching: Verbalize Understanding, Return Demonstration Education Topics Provided: Safety of oral intake and diet levels Time Speech Therapy Time In: 13:15 Speech Therapy Time Out: 13:30 Total Billed Time: 15 Billed Treatment Time RadhaLARRY BETHANIA ST January 23, 2020 13:39
--- NOTE | 2020-01-23 14:22 | NUR ---
"RD ASSESSMENT PMHx: tobacco use; COPD PT INTERACTION: Pt was awake and pleasant during consult for protein calorie malnutrition. Pt states current appetite is great. Note avg PO intake 83% x2d, per chart review. Pt states no issues with nausea, vomiting or constipation since last assessment. Pt states some issues with diarrhea since last assessment. Note last BM was 5/6 and pt currently on bowel regimen of miralax PRN, per chart review. ABNORMAL NUTRITION-RELATED LAB VALUES LOW: K 3.5; cr 0.45; Ca 7.2 HIGH: Est. kcal needs: 1921-1770 kcal | 30-35 kcal/kg Est. Pro needs: 83-96 g Pro | 1.3-1.5 g Pro/kg PES STATEMENT: Inadequate protein intake ([id number]) related to recent poor PO intake as evidenced by abnormal lab values Pro 5.0 (01/14/20) | alb 2.1 (01/14/20) INTERVENTION: Continue with current diet order of DYS2 Mechanically Altered diet. Would recommend advancing diet when medically able and as tolerated. Add Ensure HP (vary) to meals TID, for increased protein intake. Provides 160 kcal and 16 g Pro per serving. Will continue to follow and reassess as pt needs, intake, and status change. MONITOR/EVALUATE: PO Intake; Plan of Care; Hydration Status; Weight Status; Lab Values Doug Nunez, MS, RD, LD"
--- NOTE | 2020-01-23 14:24 | Occupational Therapy Eval ---
OT Evaluation-General/PLF Medical Diagnosis Admission Date January 23, 2020 at 12:05 Medical Diagnosis: sepsis/respiratory distress Onset Date: Jan 11, 2020 Therapy Diagnosis Therapy Diagnosis: impaired ADLs/functional mobility Precautions Precautions/Isolations: Fall Prevention, Standard Precautions Referral Physician: Demarco Referral Reason: Evaluation/Treatment Medical History Pertinent Medical History: Atrial Fib, Alcoholism, Smoking Additional Medical History emergent angiogram with thrombolytics and balloon angioplasty 01/13/2020 Current History SWB status Reviewed History: Yes Social History Home: Single Level Current Living Status: Alone Pt reports he is planning on staying with his brother after d/c ADL-Prior Level of Function SCALE: Activities may be completed with or without assistive devices. 3-Gcyfqymfpf-niqldhq completes the activity by him/herself with no assistance from a helper. 5-Set-up or Clean-up Assistance-helper sets up or cleans up; patient completes activity. Anabel assists only prior to or following the activity. 4-Supervision or Touching Assistance-helper provides verbal cues and/or touching/steadying and/or contact guard assistance as patient completes activity. Assistance may be provided throughout the activity or intermittently. 3-Partial/Moderate Assistance-helper does LESS THAN HALF the effort. Anabel lifts, holds or supports trunk or limbs, but provides less than half the effort. 2-Substantial/Maximal Assistance-helper does MORE THAN HALF the effort. Anabel l ifts or holds trunk or limbs and provides more than half the effort. 8-Yoehdnhcn-ycwsjz does ALL the effort. Patient does none of the effort to complete the activity. Or, the assistance of 2 or more helpers is required for the patient to complete the activity. If activity was not attempted, code reason: 7-Patient Refused. 9-Not Applicable-not attempted and the patient did not perform the activity before the current illness, exacerbation or injury. 10-Not Attempted due to Environmental Limitations-(lack of equipment, weather restraints, etc.). 88-Not Attempted due to Medical Conditions or Safety Concerns. ADL PLOF Comments Pt reports being independent at PLOF with ADLs and functional mobility, he denies need for AE/AD. Self Care: Independent Functional Cognition: Independent OT Current Status Subjective Pt seated in recliner, with lunch tray in front of him. Pt reports having a good lunch and that he cleaned his plate enough to where it can go back into the cabinet. Pt required mod encouragement to participate in OT eval/tx. Mental Status/Objective Patient Orientation: Confused Attachments: Jackson Catheter, Oxygen Current Glasses/Contacts: Yes (reading) Hearing Aids: No Dentures/Partials: No Hand Dominance: Left Upper Extremity ROM WFL, BUE shoulder flexion to approx 160 degrees, he is able to touch the back of his head with his hands. Upper Extremity Coordination WFL Upper Extremity Sensation Pt reports numbness along the right side of his body when he gets too cold. Upper Extremity Strength grossly 3+/5 ADL-Treatment Eating (QC): 6 (pt reports he had no difficulty eating lunch) Oral Hygiene (QC): 5 Shower/Bathe Self (QC): 7 Upper Body Dressing (QC): 7 Lower Body Dressing (QC): 7 On/Off Footwear (QC): 7 Toileting Hygiene (QC): 7 Other Treatments Pt seated in recliner, required mod encouragement for OT eval/tx. OT educated pt on benefits and purpose of OT tx, he verbalized understanding. Pt provided information on home set up and PLOF, and participated in UE screen. Pt declined showering/dressing/toileting stating he did not want to get up because he finally got warm. When pt gets cold he states his right side goes numb and he is also afraid of falling/being dropped. Pt declined standing trial at recliner due to fear of falling. Pt agreed to brushing his teeth at recliner. OT set up ADL supplies on tray table, then pt able to complete oral hygiene. After brushing his teeth, pt states that he feels better and that he should brush his teeth more often. Post OT tx, pt seated in recliner, call light in reach and all needs met. 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 2=Patient will verbalize/demonstrate understanding of assistive devices/modifications for ADL. 3=Patient will improve strength/tolerance for activity to enable patient to perform ADL's. OT Education/Plan Problem List/Assessment Assessment: Decreased Activ Tolerance, Decreased UE Strength, Impaired I ADL's, Impaired Self-Care Skills Discharge Recommendations Plan/Recommendations: Continue POC Treatment Plan/Plan of Care Treatment,Training & Education: Yes Patient would benefit from OT for education, treatment and training to promote independence in ADL's, mobility, safety and/or upper extremity function for ADL's. Plan of Care: ADL Retraining, Functional Mobility, UE Funct Exercise/Act Treatment Duration: February 13, 2020 Frequency: 5 times per week Estimated Hrs Per Day: .25 hour per day Rehab Potential: Guarded Time/GCodes Start Time: 14:00 Stop Time: 14:15 Total Time Billed (hr/min): 15 Billed Treatment Time 1, ASH CASTORENA OT January 23, 2020 14:24
--- OUTSIDE RECORDS SUMMARY | 2020-01-23 14:26 | XMS REPORT | Continuity of Care Document ---
Author Organization Unknown Address Unknown Phone Unavailable Allergies Active Description Code Type Severity Reaction Onset Reported/Identified Relationship to Patient Clinical Status Yes NO KNOWN DRUG ALLERGIES UNKNOWN UNKNOWN Yes No Known Drug Allergies [id number] Drug Allergy Mild N/A 07/11/2009 Medications Medication Packaging Start Date St op Date Route Dosage Sig NORMAL SALINE 1000CC IV BAG INJ 0.9 % (NS 1000CC IV BAG) ml 01/11/2020 01/11/2020 ONCE&1318 ALBUTEROL INHALER MDI 8 GM (VENTOLIN HFA) PUFF(S) 01/11/2020 01/11/2020 ONCE&1318 ACETAMINOPHEN SUPPOS SUP 650 MG (TYLENOL) MG 01/11/2020 01/11/2020 ONCE&1321 Piperacillin-tazobactam 3.37 5 Gm IV recon soln (Zosyn) GM 01/11/2020 01/11/2020 ONCE&1428 IBUPROFEN TAB 600 MG (MOTRIN) MG 01/11/2020 01/11/2020 ONCE&1429 NORMAL SALINE 1000CC IV BAG INJ 0.9 % (NS 1000CC IV BAG) ml 01/11/2020 01/11/2020 ONCE&1454 Problems Date Dx Coded Attending Type Code Diagnosis Diagnosed By 01/11/2020 MOJGAN ELDRIDGE 038.9 UNSPECIFIED SEPTICEMIA 01/11/2020 MOJGAN ELDRIDGE 285.9 ANEMIA, UNSPECIFIED 01/11/2020 MOJGAN ELDRIDGE 303.9 3 OTHER AND UNSPECIFIED ALCOHOL DEPENDENCE, IN REMISSION 01/11/2020 MOJGAN ELDRIDGE 482.9 BACTERIAL PNEUMONIA, UNSPECIFIED 01/11/2020 MOJGAN ELDRIDGE 786.0 5 SHORTNESS OF BREATH 01/11/2020 MOJGAN ELDRIDGE 786.5 0 UNSPECIFIED CHEST PAIN 01/11/2020 MOJGAN ELDRIDGE A41.9 SEPSIS, UNSPECIFIED ORGANISM 01/11/2020 MOJGAN ELDRIDGE D64.9 ANEMIA, UNSPECIFIED 01/11/2020 BATTAGLER, MOJGAN W F10.2 1 ALCOHOL DEPENDENCE, IN REMISSION 01/11/2020 MOJGAN ELDRIDGE W J15.9 UNSPECIFIED BACTERIAL PNEUMONIA 01/11/2020 MOJGAN ELDRIDGE W R06.0 2 SHORTNESS OF BREATH 01/11/2020 MOJGAN ELDRIDGE W R07.9 CHEST PAIN, UNSPECIFIED 01/12/2020 SUSY FRIED, BLANE Harris Ot D64. 9 ANEMIA, UNSPECIFIED 01/12/2020 SUSY FRIED, BLANE Harris Ot E86. 0 DEHYDRATION 01/12/2020 BLANE JAIN MD Ot E87. 6 HYPOKALEMIA 01/12/2020 BLANE JAIN MD Ot F17.210 NICOTINE DEPENDENCE, CIGARETTES, UNCOMPL 01/12/2020 BLANE JAIN MD Ot J18. 9 PNEUMONIA, UNSPECIFIED ORGANISM 01/12/2020 BLANE JAIN MD Ot J44. 0 CHR OBSTRUCTIVE PULMON DISEASE WITH (ACU 01/12/2020 BLANE JAIN MD Ot R06. 03 ACUTE RESPIRATORY DISTRESS 01/12/2020 BLANE JAIN MD Ot D64. 9 ANEMIA, UNSPECIFIED 01/12/2020 BLANE JAIN MD Ot E86. 0 DEHYDRATION 01/12/2020 BLANE JAIN MD Ot E87. 6 HYPOKALEMIA 01/12/2020 BLANE JAIN MD Ot F17.210 NICOTINE DEPENDENCE, CIGARETTES, UNCOMPL 01/12/2020 BLANE JAIN MD Ot J18. 9 PNEUMONIA, UNSPECIFIED ORGANISM 01/12/2020 BLANE JAIN MD Ot J44. 0 CHR OBSTRUCTIVE PULMON DISEASE WITH (ACU 01/12/2020 BLANE JAIN MD Ot R06. 03 ACUTE RESPIRATORY DISTRESS 01/12/2020 BLANE JAIN MD Ot D64. 9 ANEMIA, UNSPECIFIED 01/12/2020 BLANE JAIN MD Ot E86. 0 DEHYDRATION 01/12/2020 BLANE JAIN MD Ot E87. 6 HYPOKALEMIA 01/12/2020 BLANE JAIN MD Ot F17.210 NICOTINE DEPENDENCE, CIGARETTES, UNCOMPL 01/12/2020 BLANE JAIN MD Ot J18. 9 PNEUMONIA, UNSPECIFIED ORGANISM 01/12/2020 SUSY FRIED, BLANE Harris Ot J44. 0 CHR OBSTRUCTIVE PULMON DISEASE WITH (ACU 01/12/2020 SUSY FRIED, BLANE Harris Ot R06. 03 ACUTE RESPIRATORY DISTRESS 01/12/2020 SUSY FRIED, BLANE Harris Ot D64. 9 ANEMIA, UNSPECIFIED 01/12/2020 SUSY FRIED, BLANE Harris Ot E86. 0 DEHYDRATION 01/12/2020 SUSY FRIED, BLANE Harris Ot E87. 6 HYPOKALEMIA 01/12/2020 SUSY FRIED, BLANE Harris Ot F17.210 NICOTINE DEPENDENCE, CIGARETTES, UNCOMPL 01/12/2020 BLANE JAIN MD Ot J18. 9 PNEUMONIA, UNSPECIFIED ORGANISM 01/12/2020 SUSY FRIED, BLANE Harris Ot J44. 0 CHR OBSTRUCTIVE PULMON DISEASE WITH (ACU 01/12/2020 SUSY FRIED, BLANE Harris Ot R06. 03 ACUTE RESPIRATORY DISTRESS 01/12/2020 BLANE JAIN MD Ot D64. 9 ANEMIA, UNSPECIFIED 01/12/2020 SUSY FRIED, BLANE Harris Ot E86. 0 DEHYDRATION 01/12/2020 SUSY FRIED, BLANE Harris Ot E87. 6 HYPOKALEMIA 01/12/2020 BLANE AJIN MD Ot F17.210 NICOTINE DEPENDENCE, CIGARETTES, UNCOMPL 01/12/2020 BLANE JAIN MD Ot J18. 9 PNEUMONIA, UNSPECIFIED ORGANISM 01/12/2020 SUSY FRIED, BLANE Harris Ot J44. 0 CHR OBSTRUCTIVE PULMON DISEASE WITH (ACU 01/12/2020 SUSY FRIED, BLANE Harris Ot R06. 03 ACUTE RESPIRATORY DISTRESS 01/12/2020 SUSY FRIED, BLANE Harris Ot D64. 9 ANEMIA, UNSPECIFIED 01/12/2020 BLANE JAIN MD Ot E86. 0 DEHYDRATION 01/12/2020 BLANE JAIN MD Ot E87. 6 HYPOKALEMIA 01/12/2020 BLANE JAIN MD Ot F17.210 NICOTINE DEPENDENCE, CIGARETTES, UNCOMPL 01/12/2020 BLANE JAIN MD Ot J18. 9 PNEUMONIA, UNSPECIFIED ORGANISM 01/12/2020 SUSY FRIED, BLANE Harris Ot J44. 0 CHR OBSTRUCTIVE PULMON DISEASE WITH (ACU 01/12/2020 SUSY FRIED, BLANE Harris Ot R06. 03 ACUTE RESPIRATORY DISTRESS 01/13/2020 SUSY FRIED, BLANE Harris Ot D64. 9 ANEMIA, UNSPECIFIED 01/13/2020 SUSY FRIED, BLANE Harris Ot E86. 0 DEHYDRATION 01/13/2020 SUSY FRIED, BLANE Harris Ot E87. 6 HYPOKALEMIA 01/13/2020 BLANE JAIN MD Ot F17.210 NICOTINE DEPENDENCE, CIGARETTES, UNCOMPL 01/13/2020 BLANE JAIN MD Ot J18. 9 PNEUMONIA, UNSPECIFIED ORGANISM 01/13/2020 BLANE AJIN MD Ot J44. 0 CHR OBSTRUCTIVE PULMON DISEASE WITH (ACU 01/13/2020 BLANE JAIN MD Ot R06. 03 ACUTE RESPIRATORY DISTRESS 01/13/2020 BLANE JAIN MD Ot D64. 9 ANEMIA, UNSPECIFIED 01/13/2020 BLANE JAIN MD Ot E86. 0 DEHYDRATION 01/13/2020 BLANE JAIN MD Ot E87. 6 HYPOKALEMIA 01/13/2020 BLANE JAIN MD Ot F17.210 NICOTINE DEPENDENCE, CIGARETTES, UNCOMPL 01/13/2020 BLANE JAIN MD Ot J18. 9 PNEUMONIA, UNSPECIFIED ORGANISM 01/13/2020 BLANE JAIN MD Ot J44. 0 CHR OBSTRUCTIVE PULMON DISEASE WITH (ACU 01/13/2020 BLANE JAIN MD Ot R06. 03 ACUTE RESPIRATORY DISTRESS 01/13/2020 BLANE JAIN MD Ot D64. 9 ANEMIA, UNSPECIFIED 01/13/2020 BLANE JAIN MD Ot E86. 0 DEHYDRATION 01/13/2020 BLANE JAIN MD Ot E87. 6 HYPOKALEMIA 01/13/2020 BLANE JAIN MD Ot F17.210 NICOTINE DEPENDENCE, CIGARETTES, UNCOMPL 01/13/2020 BLANE JAIN MD Ot J18. 9 PNEUMONIA, UNSPECIFIED ORGANISM 01/13/2020 BLANE JAIN MD Ot J44. 0 CHR OBSTRUCTIVE PULMON DISEASE WITH (ACU 01/13/2020 BLANE JAIN MD Ot R06. 03 ACUTE RESPIRATORY DISTRESS 01/13/2020 SUSY FRIED, BLANE Harris Ot D64. 9 ANEMIA, UNSPECIFIED 01/13/2020 SUSY FRIED, BLANE Harris Ot E86. 0 DEHYDRATION 01/13/2020 SUSY FRIED, BLANE Harris Ot E87. 6 HYPOKALEMIA 01/13/2020 BLANE JAIN MD Ot F17.210 NICOTINE DEPENDENCE, CIGARETTES, UNCOMPL 01/13/2020 SUSY FRIED, BLANE Harris Ot J18. 9 PNEUMONIA, UNSPECIFIED ORGANISM 01/13/2020 SUSY FRIED, BLANE Harris Ot J44. 0 CHR OBSTRUCTIVE PULMON DISEASE WITH (ACU 01/13/2020 BLANE JAIN MD Ot R06. 03 ACUTE RESPIRATORY DISTRESS 01/14/2020 BLANE JAIN MD Ot D64. 9 ANEMIA, UNSPECIFIED 01/14/2020 BLANE JAIN MD Ot E86. 0 DEHYDRATION 01/14/2020 BLANE JAIN MD Ot E87. 6 HYPOKALEMIA 01/14/2020 BLANE JAIN MD Ot F17.210 NICOTINE DEPENDENCE, CIGARETTES, UNCOMPL 01/14/2020 BLANE JAIN MD Ot J18. 9 PNEUMONIA, UNSPECIFIED ORGANISM 01/14/2020 BLANE JAIN MD Ot J44. 0 CHR OBSTRUCTIVE PULMON DISEASE WITH (ACU 01/14/2020 BLANE JAIN MD Ot R06. 03 ACUTE RESPIRATORY DISTRESS 01/14/2020 BLANE JAIN MD Ot D64. 9 ANEMIA, UNSPECIFIED 01/14/2020 BLANE JAIN MD Ot E86. 0 DEHYDRATION 01/14/2020 SUSY FRIED, BLANE Harris Ot E87. 6 HYPOKALEMIA 01/14/2020 BLANE JAIN MD Ot F17.210 NICOTINE DEPENDENCE, CIGARETTES, UNCOMPL 01/14/2020 BLANE JAIN MD Ot J18. 9 PNEUMONIA, UNSPECIFIED ORGANISM 01/14/2020 BLANE JAIN MD Ot J44. 0 CHR OBSTRUCTIVE PULMON DISEASE WITH (ACU 01/14/2020 BLANE JAIN MD Ot R06. 03 ACUTE RESPIRATORY DISTRESS 01/14/2020 BLANE JAIN MD Ot A41. 9 SEPSIS, UNSPECIFIED ORGANISM 01/14/2020 BLANE JAIN MD Ot D64. 9 ANEMIA, UNSPECIFIED 01/14/2020 BLANE JAIN MD Ot E86. 0 DEHYDRATION 01/14/2020 BLANE JAIN MD Ot E87. 6 HYPOKALEMIA 01/14/2020 BLANE JAIN MD Ot F17.210 NICOTINE DEPENDENCE, CIGARETTES, UNCOMPL 01/14/2020 BLANE JAIN MD Ot I48. 91 UNSPECIFIED ATRIAL FIBRILLATION 01/14/2020 BLANE JAIN MD Ot I74. 3 EMBOLISM AND THROMBOSIS OF ARTERIES OF T 01/14/2020 BLANE JAIN MD Ot J18. 9 PNEUMONIA, UNSPECIFIED ORGANISM 01/14/2020 BLANE JAIN MD Ot J44. 0 CHR OBSTRUCTIVE PULMON DISEASE WITH (ACU 01/14/2020 BLANE JAIN MD Ot J96. 01 ACUTE RESPIRATORY FAILURE WITH HYPOXIA 01/14/2020 BLANE JAIN MD Ot R64 CACHEXIA 01/14/2020 BLANE JAIN MD Ot R65. 20 SEVERE SEPSIS WITHOUT SEPTIC SHOCK 01/14/2020 BLANE JAIN MD Ot R91. 8 OTHER NONSPECIFIC ABNORMAL FINDING OF NEVA 01/15/2020 BLANE JAIN MD Ot A41. 9 SEPSIS, UNSPECIFIED ORGANISM 01/15/2020 BLANE JAIN MD Ot D64. 9 ANEMIA, UNSPECIFIED 01/15/2020 BLANE JAIN MD Ot E86. 0 DEHYDRATION 01/15/2020 BLANE JAIN MD Ot E87. 6 HYPOKALEMIA 01/15/2020 BLANE JAIN MD Ot F17.210 NICOTINE DEPENDENCE, CIGARETTES, UNCOMPL 01/15/2020 BLANE JAIN MD Ot I48. 91 UNSPECIFIED ATRIAL FIBRILLATION 01/15/2020 BLANE JAIN MD Ot I74. 3 EMBOLISM AND THROMBOSIS OF ARTERIES OF T 01/15/2020 BLANE JAIN MD Ot J18. 9 PNEUMONIA, UNSPECIFIED ORGANISM 01/15/2020 BLANE JAIN MD Ot J44. 0 CHR OBSTRUCTIVE PULMON DISEASE WITH (ACU 01/15/2020 BLANE JAIN MD Ot J96. 01 ACUTE RESPIRATORY FAILURE WITH HYPOXIA 01/15/2020 BLANE JAIN MD Ot R64 CACHEXIA 01/15/2020 BLANE JAIN MD Ot R65. 20 SEVERE SEPSIS WITHOUT SEPTIC SHOCK 01/15/2020 BLANE JAIN MD Ot R91. 8 OTHER NONSPECIFIC ABNORMAL FINDING OF NEVA 01/16/2020 BLANE JAIN MD Ot A41. 9 SEPSIS, UNSPECIFIED ORGANISM 01/16/2020 BLANE JAIN MD Ot D64. 9 ANEMIA, UNSPECIFIED 01/16/2020 BLANE JAIN MD Ot E86. 0 DEHYDRATION 01/16/2020 BLANE JAIN MD Ot E87. 6 HYPOKALEMIA 01/16/2020 BLANE JAIN MD Ot F17.210 NICOTINE DEPENDENCE, CIGARETTES, UNCOMPL 01/16/2020 BLANE JAIN MD Ot I48. 91 UNSPECIFIED ATRIAL FIBRILLATION 01/16/2020 BLANE JAIN MD Ot I74. 3 EMBOLISM AND THROMBOSIS OF ARTERIES OF T 01/16/2020 BLANE JAIN MD Ot J18. 9 PNEUMONIA, UNSPECIFIED ORGANISM 01/16/2020 BLANE JAIN MD Ot J44. 0 CHR OBSTRUCTIVE PULMON DISEASE WITH (ACU 01/16/2020 BLANE JAIN MD Ot J96. 01 ACUTE RESPIRATORY FAILURE WITH HYPOXIA 01/16/2020 BLANE JAIN MD Ot R64 CACHEXIA 01/16/2020 BLANE JAIN MD Ot R65. 20 SEVERE SEPSIS WITHOUT SEPTIC SHOCK 01/16/2020 BLANE JAIN MD Ot R91. 8 OTHER NONSPECIFIC ABNORMAL FINDING OF NEVA 01/17/2020 BLANE JAIN MD Ot A41. 9 SEPSIS, UNSPECIFIED ORGANISM 01/17/2020 BLANE JAIN MD Ot D64. 9 ANEMIA, UNSPECIFIED 01/17/2020 BLANE JAIN MD Ot E86. 0 DEHYDRATION 01/17/2020 BLANE JAIN MD Ot E87. 6 HYPOKALEMIA 01/17/2020 BLANE JAIN MD Ot F17.210 NICOTINE DEPENDENCE, CIGARETTES, UNCOMPL 01/17/2020 BLANE JAIN MD Ot I48. 91 UNSPECIFIED ATRIAL FIBRILLATION 01/17/2020 BLANE JAIN MD Ot I74. 3 EMBOLISM AND THROMBOSIS OF ARTERIES OF T 01/17/2020 BLANE JAIN MD Ot J18. 9 PNEUMONIA, UNSPECIFIED ORGANISM 01/17/2020 BLANE JAIN MD Ot J44. 0 CHR OBSTRUCTIVE PULMON DISEASE WITH (ACU 01/17/2020 BLANE JAIN MD Ot J96. 01 ACUTE RESPIRATORY FAILURE WITH HYPOXIA 01/17/2020 BLANE JAIN MD Ot R64 CACHEXIA 01/17/2020 BLANE JAIN MD Ot R65. 20 SEVERE SEPSIS WITHOUT SEPTIC SHOCK 01/17/2020 BLANE JAIN MD Ot R91. 8 OTHER NONSPECIFIC ABNORMAL FINDING OF NEVA 01/17/2020 BLANE JAIN MD Ot A41. 9 SEPSIS, UNSPECIFIED ORGANISM 01/17/2020 BLANE JAIN MD Ot D64. 9 ANEMIA, UNSPECIFIED 01/17/2020 BLANE JAIN MD Ot E86. 0 DEHYDRATION 01/17/2020 BLANE JAIN MD Ot E87. 6 HYPOKALEMIA 01/17/2020 BLANE JAIN MD Ot F17.210 NICOTINE DEPENDENCE, CIGARETTES, UNCOMPL 01/17/2020 BLANE JAIN MD Ot I48. 91 UNSPECIFIED ATRIAL FIBRILLATION 01/17/2020 BLANE JAIN MD Ot I74. 3 EMBOLISM AND THROMBOSIS OF ARTERIES OF T 01/17/2020 BLANE JAIN MD Ot J18. 9 PNEUMONIA, UNSPECIFIED ORGANISM 01/17/2020 BLANE JAIN MD Ot J44. 0 CHR OBSTRUCTIVE PULMON DISEASE WITH (ACU 01/17/2020 BLANE JAIN MD Ot J96. 01 ACUTE RESPIRATORY FAILURE WITH HYPOXIA 01/17/2020 BLANE JAIN MD Ot R64 CACHEXIA 01/17/2020 BLANE JAIN MD Ot R65. 20 SEVERE SEPSIS WITHOUT SEPTIC SHOCK 01/17/2020 BLANE JAIN MD Ot R91. 8 OTHER NONSPECIFIC ABNORMAL FINDING OF NEVA 01/18/2020 BLANE JAIN MD Ot A41. 9 SEPSIS, UNSPECIFIED ORGANISM 01/18/2020 BLANE JAIN MD Ot D64. 9 ANEMIA, UNSPECIFIED 01/18/2020 BLANE JAIN MD Ot E86. 0 DEHYDRATION 01/18/2020 BLANE JAIN MD Ot E87. 6 HYPOKALEMIA 01/18/2020 BLANE JAIN MD Ot F17.210 NICOTINE DEPENDENCE, CIGARETTES, UNCOMPL 01/18/2020 BLANE JAIN MD Ot I48. 91 UNSPECIFIED ATRIAL FIBRILLATION 01/18/2020 BLANE JAIN MD Ot I74. 3 EMBOLISM AND THROMBOSIS OF ARTERIES OF T 01/18/2020 BLANE JAIN MD Ot J18. 9 PNEUMONIA, UNSPECIFIED ORGANISM 01/18/2020 BLANE JAIN MD Ot J44. 0 CHR OBSTRUCTIVE PULMON DISEASE WITH (ACU 01/18/2020 BLANE JAIN MD Ot J96. 01 ACUTE RESPIRATORY FAILURE WITH HYPOXIA 01/18/2020 BLANE JAIN MD Ot R64 CACHEXIA 01/18/2020 BLANE JAIN MD Ot R65. 20 SEVERE SEPSIS WITHOUT SEPTIC SHOCK 01/18/2020 BLANE JAIN MD Ot R91. 8 OTHER NONSPECIFIC ABNORMAL FINDING OF NEVA 01/19/2020 BLANE JAIN MD Ot A41. 9 SEPSIS, UNSPECIFIED ORGANISM 01/19/2020 BLANE JAIN MD Ot D64. 9 ANEMIA, UNSPECIFIED 01/19/2020 BLANE JAIN MD Ot E86. 0 DEHYDRATION 01/19/2020 BLANE JAIN MD Ot E87. 6 HYPOKALEMIA 01/19/2020 BLANE JAIN MD Ot F17.210 NICOTINE DEPENDENCE, CIGARETTES, UNCOMPL 01/19/2020 BLANE JAIN MD Ot I48. 91 UNSPECIFIED ATRIAL FIBRILLATION 01/19/2020 BLANE JAIN MD Ot I74. 3 EMBOLISM AND THROMBOSIS OF ARTERIES OF T 01/19/2020 BLANE JAIN MD Ot J18. 9 PNEUMONIA, UNSPECIFIED ORGANISM 01/19/2020 BLANE JAIN MD Ot J44. 0 CHR OBSTRUCTIVE PULMON DISEASE WITH (ACU 01/19/2020 BLANE JAIN MD Ot J96. 01 ACUTE RESPIRATORY FAILURE WITH HYPOXIA 01/19/2020 BLANE JAIN MD Ot R64 CACHEXIA 01/19/2020 BLANE JAIN MD Ot R65. 20 SEVERE SEPSIS WITHOUT SEPTIC SHOCK 01/19/2020 BLANE JAIN MD Ot R91. 8 OTHER NONSPECIFIC ABNORMAL FINDING OF NEVA 01/20/2020 BLAEN JAIN MD Ot A41. 9 SEPSIS, UNSPECIFIED ORGANISM 01/20/2020 BLANE JAIN MD Ot D64. 9 ANEMIA, UNSPECIFIED 01/20/2020 BLANE JAIN MD Ot E86. 0 DEHYDRATION 01/20/2020 BLANE JAIN MD Ot E87. 6 HYPOKALEMIA 01/20/2020 BALNE JAIN MD Ot F17.210 NICOTINE DEPENDENCE, CIGARETTES, UNCOMPL 01/20/2020 BLANE JAIN MD Ot I48. 91 UNSPECIFIED ATRIAL FIBRILLATION 01/20/2020 BLANE JAIN MD Ot I74. 3 EMBOLISM AND THROMBOSIS OF ARTERIES OF T 01/20/2020 BLANE JAIN MD Ot J18. 9 PNEUMONIA, UNSPECIFIED ORGANISM 01/20/2020 BLANE JAIN MD Ot J44. 0 CHR OBSTRUCTIVE PULMON DISEASE WITH (ACU 01/20/2020 BLANE JAIN MD Ot J96. 01 ACUTE RESPIRATORY FAILURE WITH HYPOXIA 01/20/2020 BLANE JAIN MD Ot R64 CACHEXIA 01/20/2020 BLANE JAIN MD Ot R65. 20 SEVERE SEPSIS WITHOUT SEPTIC SHOCK 01/20/2020 BLANE JAIN MD Ot R91. 8 OTHER NONSPECIFIC ABNORMAL FINDING OF NEVA 01/21/2020 BLANE JAIN MD Ot A41. 9 SEPSIS, UNSPECIFIED ORGANISM 01/21/2020 BLANE JAIN MD Ot D64. 9 ANEMIA, UNSPECIFIED 01/21/2020 BLANE JAIN MD Ot E86. 0 DEHYDRATION 01/21/2020 BLANE JAIN MD Ot E87. 6 HYPOKALEMIA 01/21/2020 BLANE JAIN MD Ot F17.210 NICOTINE DEPENDENCE, CIGARETTES, UNCOMPL 01/21/2020 BLANE JAIN MD Ot I48. 91 UNSPECIFIED ATRIAL FIBRILLATION 01/21/2020 BLANE JAIN MD Ot I74. 3 EMBOLISM AND THROMBOSIS OF ARTERIES OF T 01/21/2020 BLANE JAIN MD Ot J18. 9 PNEUMONIA, UNSPECIFIED ORGANISM 01/21/2020 BLANE JAIN MD Ot J44. 0 CHR OBSTRUCTIVE PULMON DISEASE WITH (ACU 01/21/2020 BLANE JAIN MD Ot J96. 01 ACUTE RESPIRATORY FAILURE WITH HYPOXIA 01/21/2020 BLANE JAIN MD Ot R64 CACHEXIA 01/21/2020 BLAEN JAIN MD Ot R65. 20 SEVERE SEPSIS WITHOUT SEPTIC SHOCK 01/21/2020 BLANE JAIN MD Ot R91. 8 OTHER NONSPECIFIC ABNORMAL FINDING OF NEVA 01/22/2020 BLANE JAIN MD Ot A41. 9 SEPSIS, UNSPECIFIED ORGANISM 01/22/2020 BLANE JAIN MD Ot D64. 9 ANEMIA, UNSPECIFIED 01/22/2020 BLANE JAIN MD Ot E86. 0 DEHYDRATION 01/22/2020 BLANE JAIN MD Ot E87. 6 HYPOKALEMIA 01/22/2020 BLANE JAIN MD Ot F17.210 NICOTINE DEPENDENCE, CIGARETTES, UNCOMPL 01/22/2020 BLANE JAIN MD Ot I48. 91 UNSPECIFIED ATRIAL FIBRILLATION 01/22/2020 BLANE JAIN MD Ot I74. 3 EMBOLISM AND THROMBOSIS OF ARTERIES OF T 01/22/2020 BLANE JAIN MD Ot J18. 9 PNEUMONIA, UNSPECIFIED ORGANISM 01/22/2020 BLANE JAIN MD Ot J44. 0 CHR OBSTRUCTIVE PULMON DISEASE WITH (ACU 01/22/2020 BLANE JAIN MD Ot J96. 01 ACUTE RESPIRATORY FAILURE WITH HYPOXIA 01/22/2020 BLANE JAIN MD Ot R64 CACHEXIA 01/22/2020 BLANE JAIN MD Ot R65. 20 SEVERE SEPSIS WITHOUT SEPTIC SHOCK 01/22/2020 BLANE JAIN MD Ot R91. 8 OTHER NONSPECIFIC ABNORMAL FINDING OF NEVA 01/22/2020 BLANE JAIN MD Ot A41. 9 SEPSIS, UNSPECIFIED ORGANISM 01/22/2020 BLANE JAIN MD Ot D64. 9 ANEMIA, UNSPECIFIED 01/22/2020 BLANE JAIN MD Ot E86. 0 DEHYDRATION 01/22/2020 BLANE JAIN MD Ot E87. 6 HYPOKALEMIA 01/22/2020 BLANE JAIN MD Ot F17.210 NICOTINE DEPENDENCE, CIGARETTES, UNCOMPL 01/22/2020 BLANE JAIN MD Ot I48. 91 UNSPECIFIED ATRIAL FIBRILLATION 01/22/2020 BLANE JAIN MD Ot I74. 3 EMBOLISM AND THROMBOSIS OF ARTERIES OF T 01/22/2020 BLANE JAIN MD Ot J18. 9 PNEUMONIA, UNSPECIFIED ORGANISM 01/22/2020 BLANE JAIN MD Ot J44. 0 CHR OBSTRUCTIVE PULMON DISEASE WITH (ACU 01/22/2020 BLANE JAIN MD Ot J96. 01 ACUTE RESPIRATORY FAILURE WITH HYPOXIA 01/22/2020 BLANE JAIN MD Ot R64 CACHEXIA 01/22/2020 BLANE JAIN MD Ot R65. 20 SEVERE SEPSIS WITHOUT SEPTIC SHOCK 01/22/2020 BLANE JAIN MD Ot R91. 8 OTHER NONSPECIFIC ABNORMAL FINDING OF NEVA 01/22/2020 BLANE JAIN MD Ot A41. 9 SEPSIS, UNSPECIFIED ORGANISM 01/22/2020 BLANE JAIN MD Ot D64. 9 ANEMIA, UNSPECIFIED 01/22/2020 BLANE JAIN MD Ot E86. 0 DEHYDRATION 01/22/2020 BLANE JAIN MD Ot E87. 6 HYPOKALEMIA 01/22/2020 BLANE JAIN MD Ot F17.210 NICOTINE DEPENDENCE, CIGARETTES, UNCOMPL 01/22/2020 BLANE JAIN MD Ot I48. 91 UNSPECIFIED ATRIAL FIBRILLATION 01/22/2020 BLANE JAIN MD Ot I74. 3 EMBOLISM AND THROMBOSIS OF ARTERIES OF T 01/22/2020 BLANE JAIN MD Ot J18. 9 PNEUMONIA, UNSPECIFIED ORGANISM 01/22/2020 BLANE JAIN MD Ot J44. 0 CHR OBSTRUCTIVE PULMON DISEASE WITH (ACU 01/22/2020 BLANE JAIN MD Ot J96. 01 ACUTE RESPIRATORY FAILURE WITH HYPOXIA 01/22/2020 BLANE JAIN MD Ot R64 CACHEXIA 01/22/2020 BLANE JAIN MD Ot R65. 20 SEVERE SEPSIS WITHOUT SEPTIC SHOCK 01/22/2020 SUSY FRIED, BLANE Harris Ot R91. 8 OTHER NONSPECIFIC ABNORMAL FINDING OF NEVA Procedures Code Description Performed By Per formed On [id number] DI LATION OF RIGHT FEMORAL ARTERY, PERCUT 01/13/2020 [id number] DI LATION OF RIGHT POPLITEAL ARTERY, PERC 01/13/2020 [id number] IN TRODUCE OF OTH THROMBOLYTIC INTO PERIP 01/13/2020 [id number] FL UOROSCOPY OF AORTA, BI LE ART USING L 01/13/2020 [id number] FL UOROSCOPY OF R LOW EXTREM ART USING L 01/13/2020 Results Test Result Range BNP - 01/11/20 13:09 BNP 96.70 pg/ml 0.00-100.00 Lactic Acid - 01/11/20 13:09 Lactic Acid 24.4 mg/dL 4.5-19.8 Blood Culture - 01/11/20 13:09 PRELIM CULTURE RESULTS Blood Culture Negativ e, No Growth Day 1 FINAL CULTURE RESULTS Blood Culture Negative , No Growth Day 5 MEDIA PLATED Setup at 14:14 on 01/11/2020 @ C45 CULTURE SOURCE left arm Blood Culture - 01/11/20 13:10 PRELIM CULTURE RESULTS Blood Culture Negativ e, No Growth Day 1 FINAL CULTURE RESULTS Blood Culture Negative , No Growth Day 5 MEDIA PLATED Setup at 14:13 on 01/11/2020 @ C41 CULTURE SOURCE left hand Ethanol - 01/11/20 13:25 Ethanol <10 mg/dL 20-80 COVID19 - 01/11/20 13:25 COVID19 Sent to [facility], Results have been scanned Influenza - 01/11/20 13:54 Influenza NEGATIVE FOR A and B 0.00-0.0 0 Capillary blood glucose measurement by g lucometer (mass/volume) - 01/11/20 16:34 Capillary blood glucose measurement by glucometer (mas s/volume) 105 mg/dL 70-110 Blood lactic acid measurement (moles/vol ume) - 01/11/20 18:05 Blood lactic acid measurement (moles/volume) 1.59 mmol/L 0.50-2.00 Capillary blood glucose measurement by g lucometer (mass/volume) - 01/11/20 21:07 Capillary blood glucose measurement by glucometer (mas s/volume) 107 mg/dL 70-110 Comprehensive metabolic panel - 01/12/20 03:05 Serum or plasma sodium measurement (moles/volume) 141 mmol/L 135-145 Serum or plasma potassium measurement (moles/volume) 3.5 mmol/L 3.6-5.0 Serum or plasma chloride measurement (moles/volume) 106 mmol/L 98-107 Carbon dioxide 22 mmol/L 21-32 Serum or plasma anion gap determination (moles/volume) 13 mmol/L 5-14 Serum or plasma urea nitrogen measurement (mass/volume ) 21 mg/dL 7-18 Serum or plasma creatinine measurement (mass/volume) 0.46 mg/dL 0.60-1.30 Serum or plasma urea nitrogen/creatinine mass ratio 46 NRG Serum or plasma creatinine measurement w ith calculation of estimated glomerular filtration rate > NRG Serum or plasma glucose measurement (mass/volume) 91 mg/dL 70-105 Serum or plasma calcium measurement (mass/volume) 7.4 mg/dL 8.5-10.1 Serum or plasma total bilirubin measurement (mass/volu me) 0.2 mg/dL 0.1-1.0 Serum or plasma alkaline phosphatase mary surement (enzymatic activity/volume) 73 U/L 40-136 Serum or plasma aspartate aminotransfera se measurement (enzymatic activity/volume) 31 U/L 5-34 Serum or plasma alanine aminotransferase measurement (enzymatic activity/volume) 17 U/L 0-55 Serum or plasma protein measurement (mass/volume) 5.2 g/dL 6.4-8.2 Serum or plasma albumin measurement (mass/volume) 1.6 g/dL 3.2-4.5 CALCIUM CORRECTED 9.3 mg/dL 8.5-10.1 Complete blood count (CBC) with automate d white blood cell (WBC) differential - 01/12/20 03:05 Blood leukocytes automated count (number/volume) 14.6 10*3/uL 4.3-11.0 Blood erythrocytes automated count (number/volume) 3.02 10*6/uL 4.35-5.85 Venous blood hemoglobin measurement (mass/volume) 9.4 g/dL 13.3-17.7 Blood hematocrit (volume fraction) 29 % 40-54 Automated erythrocyte mean corpuscular volume 96 [ foz_us] 80-99 Automated erythrocyte mean corpuscular h emoglobin (mass per erythrocyte) 31 pg 25-34 Automated erythrocyte mean corpuscular h emoglobin concentration measurement (mass/volume) 32 g/dL 32-36 Automated erythrocyte distribution width ratio 14. 9 % 10.0- 14.5 Automated blood platelet count (count/volume) 496 10*3/uL 130-400 Automated blood platelet mean volume measurement 9.5 [foz_us] 7.4-10.4 Automated blood neutrophils/100 leukocytes 89 % 42-75 Automated blood lymphocytes/100 leukocytes 7 % 12-44 Blood monocytes/100 leukocytes 4 % 0-12 Automated blood eosinophils/100 leukocytes 0 % 0-10 Automated blood basophils/100 leukocytes 0 % 0-10 Blood neutrophils automated count (number/volume) 13.0 10*3 1.8-7.8 Blood lymphocytes automated count (number/volume) 1.0 10*3 1.0-4.0 Blood monocytes automated count (number/volume) 0. 5 10*3 0.0-1.0 Automated eosinophil count 0.0 10*3/uL 0 .0-0.3 Automated blood basophil count (count/volume) 0.0 10*3/uL 0.0-0.1 Manual absolute plasma cell count - 12/17 04/05 03:05 Blood monocytes/100 leukocytes 5 % NRG Manual blood segmented neutrophils/100 leukocytes 78 % NRG Blood band neutrophils/100 leukocytes 5 % NRG Manual blood lymphocytes/100 leukocytes 9 % NRG Blood hypochromia detection by light microscopy MO DERATE NRG Blood consuelo cells detection by light microscopy SLI GHT NRG Blood platelet clump detection by light microscopy OCCASIONAL NRG Manual blood promyelocytes/100 leukocytes 3 % NRG Serum or plasma lithium measurement (mol es/volume) - 01/12/20 03:05 BNP PT 90.1 pg/mL <100.0 Influenza virus A and B antigen detectio n - 01/12/20 07:40 FLU RESULT NEGATIVE FOR INFLUENZA A AND B ANTIGENS BY IA NRG Methicillin resistant Staphylococcus aur eus (MRSA) screening culture - 01/12/20 07:40 Methicillin resistant Staphylococcus aureus (MRSA) scr eening culture NEG NRG PROCALCITONIN (PCT) - 01/12/20 07:45 PROCALCITONIN (PCT) 1.36 ng/mL <0.10 [id number] - 01/12/20 07:45 Prothrombin time (PT) in platelet poor plasma by coagu lation assay 14.3 s 12.2-14.7 INR in platelet poor plasma or blood by coagulation as say 1.1 0.8-1.4 Activated partial thromboplastin time (a PTT) in platelet poor plasma bycoagulation assay 37 s 24-35 Fibrin D-dimer FEU measurement in platelet poor plasma (mass/volume) 2.69 ug/mL 0.00-0.49 Fibrinogen measurement in platelet poor plasma by coagulation assay (mass/volume) 688 mg/dL 221-496 Serum or plasma ferritin measurement (ma ss/volume) - 01/12/20 07:45 Serum or plasma ferritin measurement (mass/volume) 1162.2 % 32.0-356.0 RESPIRATORY VIRUS PANEL - 01/12/20 07:45 Serum ragweed IgE antibody assay Not Detected Not Detected Serum or plasma aripiprazole measurement (mass/volume) Footnote Not Detected PARAINFLU 3 PCR Footnote Not Detected METAPNEUMO PCR Not Detected Not Detecte d Adenovirus detection, CSF, PCR Footnote Not Detected INFLUENZA A PCR Not Detected Not Detect ed INFLUENZA B PCR Not Detected Not Detect ed Bacterial blood culture - 01/12/20 07:50 Bacterial blood culture NG NRG Bacterial blood culture - 01/12/20 07:55 Bacterial blood culture NG NRG Bacterial blood culture - 01/12/20 08:00 Bacterial blood culture NG NRG Blood lactic acid measurement (moles/vol ume) - 01/12/20 08:01 Blood lactic acid measurement (moles/volume) 0.84 mmol/L 0.50-2.00 Complete urinalysis with reflex to cultu re - 01/12/20 09:50 Urine color determination YELLOW NRG Urine clarity determination CLEAR NR G Urine pH measurement by test strip 6.0 5-9 Specific gravity of urine by test strip 1.025 1.016-1.022 Urine protein assay by test strip, semi-quantitative TRACE NEGATIVE Urine glucose detection by automated test strip NE GATIVE NEGATIVE Erythrocytes detection in urine sediment by light micr oscopy NEGATIVE NEGATIVE Urine ketones detection by automated test strip 2+ NEGATIVE Urine nitrite detection by test strip NEGATIVE NEGATIVE Urine total bilirubin detection by test strip 1+ NEGATIVE Urine urobilinogen measurement by automated test strip (mass/volume) 0.2 mg/dL < = 1.0 Urine leukocyte esterase detection by dipstick NEG ATIVE NEGATIVE Automated urine sediment erythrocyte cou nt by microscopy (number/high power field) NONE NRG Automated urine sediment leukocyte count by microscopy (number/high power field) NONE NRG Bacteria detection in urine sediment by light microsco py TRACE NRG Squamous epithelial cells detection in u rine sediment by light microscopy NONE NRG Crystals detection in urine sediment by light microsco py NONE NRG Casts detection in urine sediment by light microscopy PRESENT NRG Mucus detection in urine sediment by light microscopy NEGATIVE NRG Complete urinalysis with reflex to culture NO NRG Hyaline casts detection in urine sediment by light sj roscopy 5-10 NRG Urine drug screening test - 01/12/20 09: 50 Urine phencyclidine detection by screening method NEGATIVE NEGATIVE Urine benzodiazepines detection by screening method NEGATIVE NEGATIVE Urine cocaine detection NEGATIVE NEGATI VE Urine amphetamines detection by screening method N EGATIVE NEGATIVE Urine methamphetamine detection by screening method NEGATIVE NEGATIVE Urine cannabinoids detection by screening method N EGATIVE NEGATIVE Urine opiates detection by screening method NEGATI VE NEGATIVE Urine barbiturates detection NEGATIVE N EGATIVE Screening urine tricyclic antidepressants detection NEGATIVE NEGATIVE Urine methadone detection by screening method NEGA TIVE NEGATIVE Urine oxycodone detection NEGATIVE NEGA TIVE Urine propoxyphene detection NEGATIVE N EGATIVE Urine Legionella pneumophila antigen ass ay - 01/12/20 09:50 Urine Legionella pneumophila antigen assay Negativ e NRG Streptococcus pneumoniae antigen detecti on - 01/12/20 09:50 Streptococcus pneumoniae antigen detection Negativ e NRG Capillary blood glucose measurement by g lucometer (mass/volume) - 01/12/20 10:12 Capillary blood glucose measurement by glucometer (mas s/volume) 101 mg/dL 70-110 Capillary blood glucose measurement by g lucometer (mass/volume) - 01/12/20 16:26 Capillary blood glucose measurement by glucometer (mas s/volume) 95 mg/dL 70-110 Capillary blood glucose measurement by g lucometer (mass/volume) - 01/12/20 20:26 Capillary blood glucose measurement by glucometer (mas s/volume) 115 mg/dL 70-110 Complete blood count (CBC) with automate d white blood cell (WBC) differential - 01/13/20 05:00 Blood leukocytes automated count (number/volume) 13.8 10*3/uL 4.3-11.0 Blood erythrocytes automated count (number/volume) 3.00 10*6/uL 4.35-5.85 Venous blood hemoglobin measurement (mass/volume) 9.0 g/dL 13.3-17.7 Blood hematocrit (volume fraction) 29 % 40-54 Automated erythrocyte mean corpuscular volume 96 [ foz_us] 80-99 Automated erythrocyte mean corpuscular h emoglobin (mass per erythrocyte) 30 pg 25-34 Automated erythrocyte mean corpuscular h emoglobin concentration measurement (mass/volume) 31 g/dL 32-36 Automated erythrocyte distribution width ratio 14. 8 % 10.0- 14.5 Automated blood platelet count (count/volume) 443 10*3/uL 130-400 Automated blood platelet mean volume measurement 9.6 [foz_us] 7.4-10.4 Automated blood neutrophils/100 leukocytes 86 % 42-75 Automated blood lymphocytes/100 leukocytes 8 % 12-44 Blood monocytes/100 leukocytes 6 % 0-12 Automated blood eosinophils/100 leukocytes 0 % 0-10 Automated blood basophils/100 leukocytes 0 % 0-10 Blood neutrophils automated count (number/volume) 11.9 10*3 1.8-7.8 Blood lymphocytes automated count (number/volume) 1.1 10*3 1.0-4.0 Blood monocytes automated count (number/volume) 0. 8 10*3 0.0-1.0 Automated eosinophil count 0.0 10*3/uL 0 .0-0.3 Automated blood basophil count (count/volume) 0.0 10*3/uL 0.0-0.1 Comprehensive metabolic panel - 01/13/20 05:10 Serum or plasma sodium measurement (moles/volume) 137 mmol/L 135-145 Serum or plasma potassium measurement (moles/volume) 3.3 mmol/L 3.6-5.0 Serum or plasma chloride measurement (moles/volume) 102 mmol/L 98-107 Carbon dioxide 28 mmol/L 21-32 Serum or plasma anion gap determination (moles/volume) 7 mmol/L 5-14 Serum or plasma urea nitrogen measurement (mass/volume ) 9 mg/dL 7-18 Serum or plasma creatinine measurement (mass/volume) 0.42 mg/dL 0.60-1.30 Serum or plasma urea nitrogen/creatinine mass ratio 21 NRG Serum or plasma creatinine measurement w ith calculation of estimated glomerular filtration rate > NRG Serum or plasma glucose measurement (mass/volume) 100 mg/dL 70-105 Serum or plasma calcium measurement (mass/volume) 7.6 mg/dL 8.5-10.1 Serum or plasma total bilirubin measurement (mass/volu me) 0.1 mg/dL 0.1-1.0 Serum or plasma alkaline phosphatase mary surement (enzymatic activity/volume) 68 U/L 40-136 Serum or plasma aspartate aminotransfera se measurement (enzymatic activity/volume) 33 U/L 5-34 Serum or plasma alanine aminotransferase measurement (enzymatic activity/volume) 15 U/L 0-55 Serum or plasma protein measurement (mass/volume) 5.0 g/dL 6.4-8.2 Serum or plasma albumin measurement (mass/volume) 1.5 g/dL 3.2-4.5 CALCIUM CORRECTED 9.6 mg/dL 8.5-10.1 Magnesium - 01/13/20 05:10 Magnesium 1.6 mg/dL 1.6-2.4 PROCALCITONIN (PCT) - 01/13/20 05:10 PROCALCITONIN (PCT) 0.74 ng/mL <0.10 Capillary blood glucose measurement by g lucometer (mass/volume) - 01/13/20 05:46 Capillary blood glucose measurement by glucometer (mas s/volume) 104 mg/dL 70-110 Activated partial thromboplastin time (a PTT) in platelet poor plasma bycoagulation assay - 01/13/20 12:18 Activated partial thromboplastin time (a PTT) in platelet poor plasma bycoagulation assay 96 s 24-35 Capillary blood glucose measurement by g lucometer (mass/volume) - 01/13/20 12:27 Capillary blood glucose measurement by glucometer (mas s/volume) 116 mg/dL 70-110 Arterial blood gas measurement - 0 15:25 Blood pCO2 41 mm[Hg] 35-45 Blood pO2 61 mm[Hg] 79-93 Arterial blood bicarbonate measurement (moles/volume) 29 mmol/L 23-27 Arterial blood base excess by calculation 5.2 mmol /L -2.5-2.5 Arterial blood oxygen saturation measurement 91 % 94-100 * Inhaled oxygen flow rate 60% NRG Arterial blood pH measurement with patient temperature correction 7.46 7.37-7.43 Arterial blood carbon dioxide, total measurement (mole s/volume) 30.2 mmol/L 21.0-31.0 Body site RIGHT RADIAL NRG Assessment of wrist artery patency prior to arterial p uncture YES-POS NRG Setting of ventilation mode NO NR G Measurement of body temperature 37.1 NRG Capillary blood glucose measurement by g lucometer (mass/volume) - 01/13/20 15:44 Capillary blood glucose measurement by glucometer (mas s/volume) 107 mg/dL 70-110 Complete blood count (CBC) with automate d white blood cell (WBC) differential - 01/13/20 15:45 Blood leukocytes automated count (number/volume) 12.4 10*3/uL 4.3-11.0 Blood erythrocytes automated count (number/volume) 2.62 10*6/uL 4.35-5.85 Venous blood hemoglobin measurement (mass/volume) 8.0 g/dL 13.3-17.7 Blood hematocrit (volume fraction) 25 % 40-54 Automated erythrocyte mean corpuscular volume 96 [ foz_us] 80-99 Automated erythrocyte mean corpuscular h emoglobin (mass per erythrocyte) 31 pg 25-34 Automated erythrocyte mean corpuscular h emoglobin concentration measurement (mass/volume) 32 g/dL 32-36 Automated erythrocyte distribution width ratio 14. 6 % 10.0- 14.5 Automated blood platelet count (count/volume) 310 10*3/uL 130-400 Automated blood platelet mean volume measurement 9.4 [foz_us] 7.4-10.4 Automated blood neutrophils/100 leukocytes 84 % 42-75 Automated blood lymphocytes/100 leukocytes 11 % 12-44 Blood monocytes/100 leukocytes 5 % 0-12 Automated blood eosinophils/100 leukocytes 0 % 0-10 Automated blood basophils/100 leukocytes 0 % 0-10 Blood neutrophils automated count (number/volume) 10.4 10*3 1.8-7.8 Blood lymphocytes automated count (number/volume) 1.3 10*3 1.0-4.0 Blood monocytes automated count (number/volume) 0. 7 10*3 0.0-1.0 Automated eosinophil count 0.0 10*3/uL 0 .0-0.3 Automated blood basophil count (count/volume) 0.0 10*3/uL 0.0-0.1 Activated partial thromboplastin time (a PTT) in platelet poor plasma bycoagulation assay - 01/13/20 15:45 Activated partial thromboplastin time (a PTT) in platelet poor plasma bycoagulation assay 43 s 24-35 Whole blood basic metabolic panel - 12/17 05/06 15:45 Serum or plasma sodium measurement (moles/volume) 138 mmol/L 135-145 Serum or plasma potassium measurement (moles/volume) 3.3 mmol/L 3.6-5.0 Serum or plasma chloride measurement (moles/volume) 102 mmol/L 98-107 Carbon dioxide 30 mmol/L 21-32 Serum or plasma anion gap determination (moles/volume) 6 mmol/L 5-14 Serum or plasma urea nitrogen measurement (mass/volume ) 8 mg/dL 7-18 Serum or plasma creatinine measurement (mass/volume) 0.42 mg/dL 0.60-1.30 Serum or plasma urea nitrogen/creatinine mass ratio 19 NRG Serum or plasma creatinine measurement w ith calculation of estimated glomerular filtration rate > NRG Serum or plasma glucose measurement (mass/volume) 101 mg/dL 70-105 Serum or plasma calcium measurement (mass/volume) 6.9 mg/dL 8.5-10.1 Magnesium - 01/13/20 15:45 Magnesium 1.6 mg/dL 1.6-2.4 Activated partial thromboplastin time (a PTT) in platelet poor plasma bycoagulation assay - 01/13/20 18:17 Activated partial thromboplastin time (a PTT) in platelet poor plasma bycoagulation assay 57 s 24-35 Capillary blood glucose measurement by g lucometer (mass/volume) - 01/13/20 20:47 Capillary blood glucose measurement by glucometer (mas s/volume) 114 mg/dL 70-110 Complete blood count (CBC) with automate d white blood cell (WBC) differential - 01/14/20 02:30 Blood leukocytes automated count (number/volume) 13.0 10*3/uL 4.3-11.0 Blood erythrocytes automated count (number/volume) 2.54 10*6/uL 4.35-5.85 Venous blood hemoglobin measurement (mass/volume) 7.9 g/dL 13.3-17.7 Blood hematocrit (volume fraction) 24 % 40-54 Automated erythrocyte mean corpuscular volume 96 [ foz_us] 80-99 Automated erythrocyte mean corpuscular h emoglobin (mass per erythrocyte) 31 pg 25-34 Automated erythrocyte mean corpuscular h emoglobin concentration measurement (mass/volume) 33 g/dL 32-36 Automated erythrocyte distribution width ratio 14. 5 % 10.0- 14.5 Automated blood platelet count (count/volume) 294 10*3/uL 130-400 Automated blood platelet mean volume measurement 9.1 [foz_us] 7.4-10.4 Automated blood neutrophils/100 leukocytes 87 % 42-75 Automated blood lymphocytes/100 leukocytes 8 % 12-44 Blood monocytes/100 leukocytes 4 % 0-12 Automated blood eosinophils/100 leukocytes 0 % 0-10 Automated blood basophils/100 leukocytes 0 % 0-10 Blood neutrophils automated count (number/volume) 11.3 10*3 1.8-7.8 Blood lymphocytes automated count (number/volume) 1.0 10*3 1.0-4.0 Blood monocytes automated count (number/volume) 0. 6 10*3 0.0-1.0 Automated eosinophil count 0.0 10*3/uL 0 .0-0.3 Automated blood basophil count (count/volume) 0.0 10*3/uL 0.0-0.1 Comprehensive metabolic panel - 01/14/20 02:30 Serum or plasma sodium measurement (moles/volume) 139 mmol/L 135-145 Serum or plasma potassium measurement (moles/volume) 3.1 mmol/L 3.6-5.0 Serum or plasma chloride measurement (moles/volume) 101 mmol/L 98-107 Carbon dioxide 30 mmol/L 21-32 Serum or plasma anion gap determination (moles/volume) 8 mmol/L 5-14 Serum or plasma urea nitrogen measurement (mass/volume ) 4 mg/dL 7-18 Serum or plasma creatinine measurement (mass/volume) 0.43 mg/dL 0.60-1.30 Serum or plasma urea nitrogen/creatinine mass ratio 9 NRG Serum or plasma creatinine measurement w ith calculation of estimated glomerular filtration rate > NRG Serum or plasma glucose measurement (mass/volume) 103 mg/dL 70-105 Serum or plasma calcium measurement (mass/volume) 7.4 mg/dL 8.5-10.1 Serum or plasma total bilirubin measurement (mass/volu me) 0.3 mg/dL 0.1-1.0 Serum or plasma alkaline phosphatase mary surement (enzymatic activity/volume) 62 U/L 40-136 Serum or plasma aspartate aminotransfera se measurement (enzymatic activity/volume) 30 U/L 5-34 Serum or plasma alanine aminotransferase measurement (enzymatic activity/volume) 13 U/L 0-55 Serum or plasma protein measurement (mass/volume) 5.0 g/dL 6.4-8.2 Serum or plasma albumin measurement (mass/volume) 2.1 g/dL 3.2-4.5 CALCIUM CORRECTED 8.9 mg/dL 8.5-10.1 Serum or plasma phosphate measurement (m ass/volume) - 01/14/20 02:30 Serum or plasma phosphate measurement (mass/volume) 2.2 mg/dL 2.3-4.7 Magnesium - 01/14/20 02:30 Magnesium 1.9 mg/dL 1.6-2.4 Capillary blood glucose measurement by g lucometer (mass/volume) - 01/14/20 10:31 Capillary blood glucose measurement by glucometer (mas s/volume) 122 mg/dL 70-110 Capillary blood glucose measurement by g lucometer (mass/volume) - 01/14/20 16:01 Capillary blood glucose measurement by glucometer (mas s/volume) 111 mg/dL 70-110 Capillary blood glucose measurement by g lucometer (mass/volume) - 01/14/20 20:53 Capillary blood glucose measurement by glucometer (mas s/volume) 120 mg/dL 70-110 Complete blood count (CBC) with automate d white blood cell (WBC) differential - 01/15/20 02:33 Blood leukocytes automated count (number/volume) 10.9 10*3/uL 4.3-11.0 Blood erythrocytes automated count (number/volume) 2.44 10*6/uL 4.35-5.85 Venous blood hemoglobin measurement (mass/volume) 7.6 g/dL 13.3-17.7 Blood hematocrit (volume fraction) 23 % 40-54 Automated erythrocyte mean corpuscular volume 96 [ foz_us] 80-99 Automated erythrocyte mean corpuscular h emoglobin (mass per erythrocyte) 31 pg 25-34 Automated erythrocyte mean corpuscular h emoglobin concentration measurement (mass/volume) 33 g/dL 32-36 Automated erythrocyte distribution width ratio 14. 9 % 10.0- 14.5 Automated blood platelet count (count/volume) 273 10*3/uL 130-400 Automated blood platelet mean volume measurement 9.5 [foz_us] 7.4-10.4 Automated blood neutrophils/100 leukocytes 81 % 42-75 Automated blood lymphocytes/100 leukocytes 11 % 12-44 Blood monocytes/100 leukocytes 7 % 0-12 Automated blood eosinophils/100 leukocytes 1 % 0-10 Automated blood basophils/100 leukocytes 0 % 0-10 Blood neutrophils automated count (number/volume) 8.8 10*3 1.8-7.8 Blood lymphocytes automated count (number/volume) 1.2 10*3 1.0-4.0 Blood monocytes automated count (number/volume) 0. 8 10*3 0.0-1.0 Automated eosinophil count 0.1 10*3/uL 0 .0-0.3 Automated blood basophil count (count/volume) 0.0 10*3/uL 0.0-0.1 Whole blood basic metabolic panel - 12/18 02:33 Serum or plasma sodium measurement (moles/volume) 136 mmol/L 135-145 Serum or plasma potassium measurement (moles/volume) 3.4 mmol/L 3.6-5.0 Serum or plasma chloride measurement (moles/volume) 100 mmol/L 98-107 Carbon dioxide 29 mmol/L 21-32 Serum or plasma anion gap determination (moles/volume) 7 mmol/L 5-14 Serum or plasma urea nitrogen measurement (mass/volume ) 4 mg/dL 7-18 Serum or plasma creatinine measurement (mass/volume) 0.41 mg/dL 0.60-1.30 Serum or plasma urea nitrogen/creatinine mass ratio 10 NRG Serum or plasma creatinine measurement w ith calculation of estimated glomerular filtration rate > NRG Serum or plasma glucose measurement (mass/volume) 105 mg/dL 70-105 Serum or plasma calcium measurement (mass/volume) 7.1 mg/dL 8.5-10.1 Serum or plasma phosphate measurement (m ass/volume) - 01/15/20 02:33 Serum or plasma phosphate measurement (mass/volume) 2.4 mg/dL 2.3-4.7 Magnesium - 01/15/20 02:33 Magnesium 1.7 mg/dL 1.6-2.4 Blood type T Indirect antibody screen pa bel - 01/15/20 05:50 WRISTBAND NUMBER [id number] NRG ABO+Rh group AP NRG Blood group antibody screen NEGATIVE NR G Serum or plasma folate measurement (mass /volume) - 01/15/20 08:40 Serum or plasma folate measurement (mass/volume) 4 .8 % >=4.0 Serum iron and total iron binding capaci ty panel - 01/15/20 08:40 TIBC 82 % 280-380 UIBC 73 % 55-450 Serum or plasma iron measurement (mass/volume) < % 40-180 Total iron binding capacity and transferrin saturation measurement 11 % 15-50 Serum or plasma ferritin measurement (mass/volume) 1027.3 % 32.0-356.0 VITAMIN B 12 - 01/15/20 08:40 VITAMIN B 12 450 pg/mL 190-1100 Capillary blood glucose measurement by g lucometer (mass/volume) - 01/15/20 10:49 Capillary blood glucose measurement by glucometer (mas s/volume) 146 mg/dL 70-110 Capillary blood glucose measurement by g lucometer (mass/volume) - 01/15/20 15:44 Capillary blood glucose measurement by glucometer (mas s/volume) 192 mg/dL 70-110 Capillary blood glucose measurement by g lucometer (mass/volume) - 01/15/20 20:16 Capillary blood glucose measurement by glucometer (mas s/volume) 159 mg/dL 70-110 Complete blood count (CBC) with automate d white blood cell (WBC) differential - 01/16/20 02:49 Blood leukocytes automated count (number/volume) 8.4 10*3/uL 4.3-11.0 Blood erythrocytes automated count (number/volume) 2.59 10*6/uL 4.35-5.85 Venous blood hemoglobin measurement (mass/volume) 8.0 g/dL 13.3-17.7 Blood hematocrit (volume fraction) 25 % 40-54 Automated erythrocyte mean corpuscular volume 97 [ foz_us] 80-99 Automated erythrocyte mean corpuscular h emoglobin (mass per erythrocyte) 31 pg 25-34 Automated erythrocyte mean corpuscular h emoglobin concentration measurement (mass/volume) 32 g/dL 32-36 Automated erythrocyte distribution width ratio 14. 7 % 10.0- 14.5 Automated blood platelet count (count/volume) 322 10*3/uL 130-400 Automated blood platelet mean volume measurement 10.1 [foz_us] 7.4-10.4 Automated blood neutrophils/100 leukocytes 89 % 42-75 Automated blood lymphocytes/100 leukocytes 7 % 12-44 Blood monocytes/100 leukocytes 4 % 0-12 Automated blood eosinophils/100 leukocytes 0 % 0-10 Automated blood basophils/100 leukocytes 0 % 0-10 Blood neutrophils automated count (number/volume) 7.4 10*3 1.8-7.8 Blood lymphocytes automated count (number/volume) 0.6 10*3 1.0-4.0 Blood monocytes automated count (number/volume) 0. 3 10*3 0.0-1.0 Automated eosinophil count 0.0 10*3/uL 0 .0-0.3 Automated blood basophil count (count/volume) 0.0 10*3/uL 0.0-0.1 Whole blood basic metabolic panel - 10/06 02:49 Serum or plasma sodium measurement (moles/volume) 140 mmol/L 135-145 Serum or plasma potassium measurement (moles/volume) 3.9 mmol/L 3.6-5.0 Serum or plasma chloride measurement (moles/volume) 102 mmol/L 98-107 Carbon dioxide 32 mmol/L 21-32 Serum or plasma anion gap determination (moles/volume) 6 mmol/L 5-14 Serum or plasma urea nitrogen measurement (mass/volume ) 14 mg/dL 7-18 Serum or plasma creatinine measurement (mass/volume) 0.50 mg/dL 0.60-1.30 Serum or plasma urea nitrogen/creatinine mass ratio 28 NRG Serum or plasma creatinine measurement w ith calculation of estimated glomerular filtration rate > NRG Serum or plasma glucose measurement (mass/volume) 145 mg/dL 70-105 Serum or plasma calcium measurement (mass/volume) 7.6 mg/dL 8.5-10.1 Serum or plasma phosphate measurement (m ass/volume) - 01/16/20 02:49 Serum or plasma phosphate measurement (mass/volume) 3.1 mg/dL 2.3-4.7 Magnesium - 01/16/20 02:49 Magnesium 2.2 mg/dL 1.6-2.4 Serum or plasma lithium measurement (mol es/volume) - 01/16/20 02:49 BNP PT 268.5 pg/mL <100.0 Capillary blood glucose measurement by g lucometer (mass/volume) - 01/16/20 10:56 Capillary blood glucose measurement by glucometer (mas s/volume) 245 mg/dL 70-110 Capillary blood glucose measurement by g lucometer (mass/volume) - 01/16/20 15:55 Capillary blood glucose measurement by glucometer (mas s/volume) 241 mg/dL 70-110 Capillary blood glucose measurement by g lucometer (mass/volume) - 01/16/20 21:16 Capillary blood glucose measurement by glucometer (mas s/volume) 167 mg/dL 70-110 Complete blood count (CBC) with automate d white blood cell (WBC) differential - 01/17/20 03:13 Blood leukocytes automated count (number/volume) 10.4 10*3/uL 4.3-11.0 Blood erythrocytes automated count (number/volume) 2.57 10*6/uL 4.35-5.85 Venous blood hemoglobin measurement (mass/volume) 7.9 g/dL 13.3-17.7 Blood hematocrit (volume fraction) 25 % 40-54 Automated erythrocyte mean corpuscular volume 97 [ foz_us] 80-99 Automated erythrocyte mean corpuscular h emoglobin (mass per erythrocyte) 31 pg 25-34 Automated erythrocyte mean corpuscular h emoglobin concentration measurement (mass/volume) 32 g/dL 32-36 Automated erythrocyte distribution width ratio 14. 9 % 10.0- 14.5 Automated blood platelet count (count/volume) 382 10*3/uL 130-400 Automated blood platelet mean volume measurement 9.8 [foz_us] 7.4-10.4 Automated blood neutrophils/100 leukocytes 91 % 42-75 Automated blood lymphocytes/100 leukocytes 6 % 12-44 Blood monocytes/100 leukocytes 3 % 0-12 Automated blood eosinophils/100 leukocytes 0 % 0-10 Automated blood basophils/100 leukocytes 0 % 0-10 Blood neutrophils automated count (number/volume) 9.5 10*3 1.8-7.8 Blood lymphocytes automated count (number/volume) 0.6 10*3 1.0-4.0 Blood monocytes automated count (number/volume) 0. 4 10*3 0.0-1.0 Automated eosinophil count 0.0 10*3/uL 0 .0-0.3 Automated blood basophil count (count/volume) 0.0 10*3/uL 0.0-0.1 Whole blood basic metabolic panel - 11/06 03:13 Serum or plasma sodium measurement (moles/volume) 140 mmol/L 135-145 Serum or plasma potassium measurement (moles/volume) 3.4 mmol/L 3.6-5.0 Serum or plasma chloride measurement (moles/volume) 102 mmol/L 98-107 Carbon dioxide 31 mmol/L 21-32 Serum or plasma anion gap determination (moles/volume) 7 mmol/L 5-14 Serum or plasma urea nitrogen measurement (mass/volume ) 18 mg/dL 7-18 Serum or plasma creatinine measurement (mass/volume) 0.42 mg/dL 0.60-1.30 Serum or plasma urea nitrogen/creatinine mass ratio 43 NRG Serum or plasma creatinine measurement w ith calculation of estimated glomerular filtration rate > NRG Serum or plasma glucose measurement (mass/volume) 128 mg/dL 70-105 Serum or plasma calcium measurement (mass/volume) 7.6 mg/dL 8.5-10.1 Serum or plasma phosphate measurement (m ass/volume) - 01/17/20 03:13 Serum or plasma phosphate measurement (mass/volume) 2.8 mg/dL 2.3-4.7 Magnesium - 01/17/20 03:13 Magnesium 1.9 mg/dL 1.6-2.4 Serum or plasma triglyceride measurement (mass/volume) - 01/17/20 03:13 Serum or plasma triglyceride measurement (mass/volume) 114 mg/dL <150 Serum or plasma lithium measurement (mol es/volume) - 01/17/20 03:13 BNP PT 277.7 pg/mL <100.0 OCCULT BLOOD STOOL - 01/17/20 08:25 Stool gastrointestinal hemoglobin detection POSITI VE NEGATIVE Sputum Gram stain - 01/17/20 08:30 Sputum Gram stain No bacteria seen [facility] Bacterial sputum culture - 01/17/20 08:3 0 QUANTITY OF GROWTH Rare [facility] Bacterial sputum culture [id number] [facility] Arterial blood gas measurement - 0 10:00 Blood pCO2 39 mm[Hg] 35-45 Blood pO2 214 mm[Hg] 79-93 Arterial blood bicarbonate measurement (moles/volume) 35 mmol/L 23-27 Arterial blood base excess by calculation 11.5 mmo l/L -2.5-2.5 Arterial blood oxygen saturation measurement 100 % 94-100 * Inhaled oxygen flow rate 100% NRG Arterial blood pH measurement with patient temperature correction 7.56 7.37-7.43 Arterial blood carbon dioxide, total measurement (mole s/volume) 36.2 mmol/L 21.0-31.0 Body site ARTLINE NRG Assessment of wrist artery patency prior to arterial p uncture ART LINE NRG Setting of ventilation mode YES NR G Measurement of body temperature 35.9 NRG Capillary blood glucose measurement by g lucometer (mass/volume) - 01/17/20 11:43 Capillary blood glucose measurement by glucometer (mas s/volume) 152 mg/dL 70-110 Arterial blood gas measurement - 0 11:55 Blood pCO2 47 mm[Hg] 35-45 Blood pO2 134 mm[Hg] 79-93 Arterial blood bicarbonate measurement (moles/volume) 36 mmol/L 23-27 Arterial blood base excess by calculation 11.9 mmo l/L -2.5-2.5 Arterial blood oxygen saturation measurement 98 % 94-100 * Inhaled oxygen flow rate 80 NRG Arterial blood pH measurement with patient temperature correction 7.50 7.37-7.43 Arterial blood carbon dioxide, total measurement (mole s/volume) 37.6 mmol/L 21.0-31.0 Body site ARTLINE NRG Assessment of wrist artery patency prior to arterial p uncture ART LINE NRG Setting of ventilation mode YES NR G Measurement of body temperature 36.4 NRG Capillary blood glucose measurement by g lucometer (mass/volume) - 01/17/20 17:31 Capillary blood glucose measurement by glucometer (mas s/volume) 201 mg/dL 70-110 Capillary blood glucose measurement by g lucometer (mass/volume) - 01/18/20 01:16 Capillary blood glucose measurement by glucometer (mas s/volume) 193 mg/dL 70-110 Complete blood count (CBC) with automate d white blood cell (WBC) differential - 01/18/20 03:29 Blood leukocytes automated count (number/volume) 9.6 10*3/uL 4.3-11.0 Blood erythrocytes automated count (number/volume) 2.67 10*6/uL 4.35-5.85 Venous blood hemoglobin measurement (mass/volume) 8.2 g/dL 13.3-17.7 Blood hematocrit (volume fraction) 26 % 40-54 Automated erythrocyte mean corpuscular volume 97 [ foz_us] 80-99 Automated erythrocyte mean corpuscular h emoglobin (mass per erythrocyte) 31 pg 25-34 Automated erythrocyte mean corpuscular h emoglobin concentration measurement (mass/volume) 32 g/dL 32-36 Automated erythrocyte distribution width ratio 14. 9 % 10.0- 14.5 Automated blood platelet count (count/volume) 394 10*3/uL 130-400 Automated blood platelet mean volume measurement 9.9 [foz_us] 7.4-10.4 Automated blood neutrophils/100 leukocytes 91 % 42-75 Automated blood lymphocytes/100 leukocytes 5 % 12-44 Blood monocytes/100 leukocytes 4 % 0-12 Automated blood eosinophils/100 leukocytes 0 % 0-10 Automated blood basophils/100 leukocytes 0 % 0-10 Blood neutrophils automated count (number/volume) 8.7 10*3 1.8-7.8 Blood lymphocytes automated count (number/volume) 0.5 10*3 1.0-4.0 Blood monocytes automated count (number/volume) 0. 4 10*3 0.0-1.0 Automated eosinophil count 0.0 10*3/uL 0 .0-0.3 Automated blood basophil count (count/volume) 0.0 10*3/uL 0.0-0.1 Whole blood basic metabolic panel - 12/04 03:29 Serum or plasma sodium measurement (moles/volume) 141 mmol/L 135-145 Serum or plasma potassium measurement (moles/volume) 4.0 mmol/L 3.6-5.0 Serum or plasma chloride measurement (moles/volume) 101 mmol/L 98-107 Carbon dioxide 32 mmol/L 21-32 Serum or plasma anion gap determination (moles/volume) 8 mmol/L 5-14 Serum or plasma urea nitrogen measurement (mass/volume ) 16 mg/dL 7-18 Serum or plasma creatinine measurement (mass/volume) 0.45 mg/dL 0.60-1.30 Serum or plasma urea nitrogen/creatinine mass ratio 36 NRG Serum or plasma creatinine measurement w ith calculation of estimated glomerular filtration rate > NRG Serum or plasma glucose measurement (mass/volume) 118 mg/dL 70-105 Serum or plasma calcium measurement (mass/volume) 7.6 mg/dL 8.5-10.1 Serum or plasma phosphate measurement (m ass/volume) - 01/18/20 03:29 Serum or plasma phosphate measurement (mass/volume) 3.6 mg/dL 2.3-4.7 Magnesium - 01/18/20 03:29 Magnesium 1.9 mg/dL 1.6-2.4 PROCALCITONIN (PCT) - 01/18/20 03:29 PROCALCITONIN (PCT) 0.08 ng/mL <0.10 Arterial blood gas measurement - 0 03:33 Blood pCO2 47 mm[Hg] 35-45 Blood pO2 90 mm[Hg] 79-93 Arterial blood bicarbonate measurement (moles/volume) 36 mmol/L 23-27 Arterial blood base excess by calculation 11.5 mmo l/L -2.5-2.5 Arterial blood oxygen saturation measurement 97 % 94-100 * Inhaled oxygen flow rate 38% NRG Arterial blood pH measurement with patient temperature correction 7.49 7.37-7.43 Arterial blood carbon dioxide, total measurement (mole s/volume) 36.9 mmol/L 21.0-31.0 Body site RIGHT RADIAL ART MARIAMA NRG Assessment of wrist artery patency prior to arterial p uncture ART LINE NRG Setting of ventilation mode YES NR G Measurement of body temperature 37.1 NRG Capillary blood glucose measurement by g lucometer (mass/volume) - 01/18/20 11:26 Capillary blood glucose measurement by glucometer (mas s/volume) 156 mg/dL 70-110 Capillary blood glucose measurement by g lucometer (mass/volume) - 01/18/20 17:39 Capillary blood glucose measurement by glucometer (mas s/volume) 180 mg/dL 70-110 Capillary blood glucose measurement by g lucometer (mass/volume) - 01/18/20 22:53 Capillary blood glucose measurement by glucometer (mas s/volume) 165 mg/dL 70-110 Complete blood count (CBC) with automate d white blood cell (WBC) differential - 01/19/20 03:22 Blood leukocytes automated count (number/volume) 7.6 10*3/uL 4.3-11.0 Blood erythrocytes automated count (number/volume) 2.69 10*6/uL 4.35-5.85 Venous blood hemoglobin measurement (mass/volume) 8.1 g/dL 13.3-17.7 Blood hematocrit (volume fraction) 26 % 40-54 Automated erythrocyte mean corpuscular volume 97 [ foz_us] 80-99 Automated erythrocyte mean corpuscular h emoglobin (mass per erythrocyte) 30 pg 25-34 Automated erythrocyte mean corpuscular h emoglobin concentration measurement (mass/volume) 31 g/dL 32-36 Automated erythrocyte distribution width ratio 15. 2 % 10.0- 14.5 Automated blood platelet count (count/volume) 456 10*3/uL 130-400 Automated blood platelet mean volume measurement 9.7 [foz_us] 7.4-10.4 Automated blood neutrophils/100 leukocytes 91 % 42-75 Automated blood lymphocytes/100 leukocytes 5 % 12-44 Blood monocytes/100 leukocytes 4 % 0-12 Automated blood eosinophils/100 leukocytes 0 % 0-10 Automated blood basophils/100 leukocytes 0 % 0-10 Blood neutrophils automated count (number/volume) 6.9 10*3 1.8-7.8 Blood lymphocytes automated count (number/volume) 0.4 10*3 1.0-4.0 Blood monocytes automated count (number/volume) 0. 3 10*3 0.0-1.0 Automated eosinophil count 0.0 10*3/uL 0 .0-0.3 Automated blood basophil count (count/volume) 0.0 10*3/uL 0.0-0.1 Arterial blood gas measurement - 0 03:22 Blood pCO2 48 mm[Hg] 35-45 Blood pO2 91 mm[Hg] 79-93 Arterial blood bicarbonate measurement (moles/volume) 35 mmol/L 23-27 Arterial blood base excess by calculation 10.5 mmo l/L -2.5-2.5 Arterial blood oxygen saturation measurement 96 % 94-100 * Inhaled oxygen flow rate 35% NRG Arterial blood pH measurement with patient temperature correction 7.47 7.37-7.43 Arterial blood carbon dioxide, total measurement (mole s/volume) 36.4 mmol/L 21.0-31.0 Body site RIGHT ART LINE NRG Assessment of wrist artery patency prior to arterial p uncture ART LINE NRG Setting of ventilation mode YES NR G Measurement of body temperature 36.4 NRG Whole blood basic metabolic panel - 01/04 03:22 Serum or plasma sodium measurement (moles/volume) 138 mmol/L 135-145 Serum or plasma potassium measurement (moles/volume) 4.0 mmol/L 3.6-5.0 Serum or plasma chloride measurement (moles/volume) 101 mmol/L 98-107 Carbon dioxide 30 mmol/L 21-32 Serum or plasma anion gap determination (moles/volume) 7 mmol/L 5-14 Serum or plasma urea nitrogen measurement (mass/volume ) 16 mg/dL 7-18 Serum or plasma creatinine measurement (mass/volume) 0.43 mg/dL 0.60-1.30 Serum or plasma urea nitrogen/creatinine mass ratio 37 NRG Serum or plasma creatinine measurement w ith calculation of estimated glomerular filtration rate > NRG Serum or plasma glucose measurement (mass/volume) 157 mg/dL 70-105 Serum or plasma calcium measurement (mass/volume) 7.5 mg/dL 8.5-10.1 Serum or plasma phosphate measurement (m ass/volume) - 01/19/20 03:22 Serum or plasma phosphate measurement (mass/volume) 3.5 mg/dL 2.3-4.7 Magnesium - 01/19/20 03:22 Magnesium 2.0 mg/dL 1.6-2.4 Serum or plasma triglyceride measurement (mass/volume) - 01/19/20 03:22 Serum or plasma triglyceride measurement (mass/volume) 121 mg/dL <150 Arterial blood gas measurement - 0 06:27 Blood pCO2 46 mm[Hg] 35-45 Blood pO2 74 mm[Hg] 79-93 Arterial blood bicarbonate measurement (moles/volume) 37 mmol/L 23-27 Arterial blood base excess by calculation 12.7 mmo l/L -2.5-2.5 Arterial blood oxygen saturation measurement 94 % 94-100 * Inhaled oxygen flow rate 35% NRG Arterial blood pH measurement with patient temperature correction 7.51 7.37-7.43 Arterial blood carbon dioxide, total measurement (mole s/volume) 38.5 mmol/L 21.0-31.0 Body site RIGHT ART LINE NRG Assessment of wrist artery patency prior to arterial p uncture ART LINE NRG Setting of ventilation mode YES NR G Measurement of body temperature 35.6 NRG Capillary blood glucose measurement by g lucometer (mass/volume) - 01/19/20 11:27 Capillary blood glucose measurement by glucometer (mas s/volume) 164 mg/dL 70-110 Capillary blood glucose measurement by g lucometer (mass/volume) - 01/19/20 17:56 Capillary blood glucose measurement by glucometer (mas s/volume) 184 mg/dL 70-110 Capillary blood glucose measurement by g lucometer (mass/volume) - 01/19/20 23:27 Capillary blood glucose measurement by glucometer (mas s/volume) 161 mg/dL 70-110 Arterial blood gas measurement - 0 02:50 Blood pCO2 52 mm[Hg] 35-45 Blood pO2 86 mm[Hg] 79-93 Arterial blood bicarbonate measurement (moles/volume) 36 mmol/L 23-27 Arterial blood base excess by calculation 11.2 mmo l/L -2.5-2.5 Arterial blood oxygen saturation measurement 96 % 94-100 * Inhaled oxygen flow rate 30% NRG Arterial blood pH measurement with patient temperature correction 7.45 7.37-7.43 Arterial blood carbon dioxide, total measurement (mole s/volume) 37.5 mmol/L 21.0-31.0 Body site RIGHT RADIAL NRG Assessment of wrist artery patency prior to arterial p uncture ART LINE NRG Setting of ventilation mode YES NR G Measurement of body temperature 36.5 NRG Complete blood count (CBC) with automate d white blood cell (WBC) differential - 01/20/20 02:50 Blood leukocytes automated count (number/volume) 8.1 10*3/uL 4.3-11.0 Blood erythrocytes automated count (number/volume) 2.68 10*6/uL 4.35-5.85 Venous blood hemoglobin measurement (mass/volume) 8.2 g/dL 13.3-17.7 Blood hematocrit (volume fraction) 26 % 40-54 Automated erythrocyte mean corpuscular volume 97 [ foz_us] 80-99 Automated erythrocyte mean corpuscular h emoglobin (mass per erythrocyte) 31 pg 25-34 Automated erythrocyte mean corpuscular h emoglobin concentration measurement (mass/volume) 31 g/dL 32-36 Automated erythrocyte distribution width ratio 14. 9 % 10.0- 14.5 Automated blood platelet count (count/volume) 513 10*3/uL 130-400 Automated blood platelet mean volume measurement 9.7 [foz_us] 7.4-10.4 Automated blood neutrophils/100 leukocytes 89 % 42-75 Automated blood lymphocytes/100 leukocytes 6 % 12-44 Blood monocytes/100 leukocytes 5 % 0-12 Automated blood eosinophils/100 leukocytes 0 % 0-10 Automated blood basophils/100 leukocytes 0 % 0-10 Blood neutrophils automated count (number/volume) 7.2 10*3 1.8-7.8 Blood lymphocytes automated count (number/volume) 0.5 10*3 1.0-4.0 Blood monocytes automated count (number/volume) 0. 4 10*3 0.0-1.0 Automated eosinophil count 0.0 10*3/uL 0 .0-0.3 Automated blood basophil count (count/volume) 0.0 10*3/uL 0.0-0.1 Whole blood basic metabolic panel - 02/03 02:50 Serum or plasma sodium measurement (moles/volume) 137 mmol/L 135-145 Serum or plasma potassium measurement (moles/volume) 3.8 mmol/L 3.6-5.0 Serum or plasma chloride measurement (moles/volume) 98 mmol/L 98-107 Carbon dioxide 33 mmol/L 21-32 Serum or plasma anion gap determination (moles/volume) 6 mmol/L 5-14 Serum or plasma urea nitrogen measurement (mass/volume ) 13 mg/dL 7-18 Serum or plasma creatinine measurement (mass/volume) 0.40 mg/dL 0.60-1.30 Serum or plasma urea nitrogen/creatinine mass ratio 33 NRG Serum or plasma creatinine measurement w ith calculation of estimated glomerular filtration rate > NRG Serum or plasma glucose measurement (mass/volume) 135 mg/dL 70-105 Serum or plasma calcium measurement (mass/volume) 7.5 mg/dL 8.5-10.1 Serum or plasma phosphate measurement (m ass/volume) - 01/20/20 02:50 Serum or plasma phosphate measurement (mass/volume) 3.2 mg/dL 2.3-4.7 Magnesium - 01/20/20 02:50 Magnesium 2.2 mg/dL 1.6-2.4 Arterial blood gas measurement - 0 07:40 Blood pCO2 38 mm[Hg] 35-45 Blood pO2 71 mm[Hg] 79-93 Arterial blood bicarbonate measurement (moles/volume) 33 mmol/L 23-27 Arterial blood base excess by calculation 9.7 mmol /L -2.5-2.5 Arterial blood oxygen saturation measurement 94 % 94-100 * Inhaled oxygen flow rate 30% NRG Arterial blood pH measurement with patient temperature correction 7.54 7.37-7.43 Arterial blood carbon dioxide, total measurement (mole s/volume) 34.3 mmol/L 21.0-31.0 Body site RT RAD NRG Assessment of wrist artery patency prior to arterial p uncture ARTLINE NRG Setting of ventilation mode YES NR G Measurement of body temperature 36.3 NRG Capillary blood glucose measurement by g lucometer (mass/volume) - 01/20/20 11:47 Capillary blood glucose measurement by glucometer (mas s/volume) 130 mg/dL 70-110 Capillary blood glucose measurement by g lucometer (mass/volume) - 01/20/20 17:30 Capillary blood glucose measurement by glucometer (mas s/volume) 145 mg/dL 70-110 Capillary blood glucose measurement by g lucometer (mass/volume) - 01/20/20 21:09 Capillary blood glucose measurement by glucometer (mas s/volume) 165 mg/dL 70-110 C DIFFICILE AG + TOXIN A/B. - 01/20/20 2 3:00 RESULTS NEGATIVE FOR ANTIGEN AND TOXIN A/B NRG Arterial blood gas measurement - 0 00:14 Blood pCO2 41 mm[Hg] 35-45 Blood pO2 61 mm[Hg] 79-93 Arterial blood bicarbonate measurement (moles/volume) 33 mmol/L 23-27 Arterial blood base excess by calculation 10.0 mmo l/L -2.5-2.5 Arterial blood oxygen saturation measurement 86 % 94-100 * Inhaled oxygen flow rate 4L NRG Arterial blood pH measurement with patient temperature correction 7.52 7.37-7.43 Arterial blood carbon dioxide, total measurement (mole s/volume) 34.7 mmol/L 21.0-31.0 Body site RT RADIAL NRG Assessment of wrist artery patency prior to arterial p uncture P NRG Setting of ventilation mode NO NR G Measurement of body temperature 37.5 NRG Arterial blood gas measurement - 0 02:30 Blood pCO2 41 mm[Hg] 35-45 Blood pO2 77 mm[Hg] 79-93 Arterial blood bicarbonate measurement (moles/volume) 33 mmol/L 23-27 Arterial blood base excess by calculation 9.8 mmol /L -2.5-2.5 Arterial blood oxygen saturation measurement 95 % 94-100 * Inhaled oxygen flow rate 40% NRG Arterial blood pH measurement with patient temperature correction 7.52 7.37-7.43 Arterial blood carbon dioxide, total measurement (mole s/volume) 34.6 mmol/L 21.0-31.0 Body site RT RADIAL NRG Assessment of wrist artery patency prior to arterial p uncture P NRG Setting of ventilation mode NO NR G Measurement of body temperature 37.1 NRG Complete blood count (CBC) with automate d white blood cell (WBC) differential - 01/21/20 02:30 Blood leukocytes automated count (number/volume) 19.4 10*3/uL 4.3-11.0 Blood erythrocytes automated count (number/volume) 2.84 10*6/uL 4.35-5.85 Venous blood hemoglobin measurement (mass/volume) 8.8 g/dL 13.3-17.7 Blood hematocrit (volume fraction) 27 % 40-54 Automated erythrocyte mean corpuscular volume 96 [ foz_us] 80-99 Automated erythrocyte mean corpuscular h emoglobin (mass per erythrocyte) 31 pg 25-34 Automated erythrocyte mean corpuscular h emoglobin concentration measurement (mass/volume) 32 g/dL 32-36 Automated erythrocyte distribution width ratio 15. 3 % 10.0- 14.5 Automated blood platelet count (count/volume) 759 10*3/uL 130-400 Automated blood platelet mean volume measurement 9.4 [foz_us] 7.4-10.4 Automated blood neutrophils/100 leukocytes 94 % 42-75 Automated blood lymphocytes/100 leukocytes 2 % 12-44 Blood monocytes/100 leukocytes 3 % 0-12 Automated blood eosinophils/100 leukocytes 0 % 0-10 Automated blood basophils/100 leukocytes 0 % 0-10 Blood neutrophils automated count (number/volume) 18.3 10*3 1.8-7.8 Blood lymphocytes automated count (number/volume) 0.5 10*3 1.0-4.0 Blood monocytes automated count (number/volume) 0. 6 10*3 0.0-1.0 Automated eosinophil count 0.0 10*3/uL 0 .0-0.3 Automated blood basophil count (count/volume) 0.0 10*3/uL 0.0-0.1 Manual absolute plasma cell count - 0503/06 02:30 Blood monocytes/100 leukocytes 2 % NRG Manual blood segmented neutrophils/100 leukocytes 90 % NRG Blood band neutrophils/100 leukocytes 4 % NRG Manual blood lymphocytes/100 leukocytes 4 % NRG Whole blood basic metabolic panel - 03/06 02:30 Serum or plasma sodium measurement (moles/volume) 138 mmol/L 135-145 Serum or plasma potassium measurement (moles/volume) 3.3 mmol/L 3.6-5.0 Serum or plasma chloride measurement (moles/volume) 99 mmol/L 98-107 Carbon dioxide 29 mmol/L 21-32 Serum or plasma anion gap determination (moles/volume) 10 mmol/L 5-14 Serum or plasma urea nitrogen measurement (mass/volume ) 14 mg/dL 7-18 Serum or plasma creatinine measurement (mass/volume) 0.47 mg/dL 0.60-1.30 Serum or plasma urea nitrogen/creatinine mass ratio 30 NRG Serum or plasma creatinine measurement w ith calculation of estimated glomerular filtration rate > NRG Serum or plasma glucose measurement (mass/volume) 123 mg/dL 70-105 Serum or plasma calcium measurement (mass/volume) 7.3 mg/dL 8.5-10.1 Serum or plasma phosphate measurement (m ass/volume) - 01/21/20 02:30 Serum or plasma phosphate measurement (mass/volume) 2.5 mg/dL 2.3-4.7 Magnesium - 01/21/20 02:30 Magnesium 2.1 mg/dL 1.6-2.4 Serum or plasma triglyceride measurement (mass/volume) - 01/21/20 02:30 Serum or plasma triglyceride measurement (mass/volume) 130 mg/dL <150 PROCALCITONIN (PCT) - 01/21/20 02:30 PROCALCITONIN (PCT) 0.05 ng/mL <0.10 Capillary blood glucose measurement by g lucometer (mass/volume) - 01/21/20 11:12 Capillary blood glucose measurement by glucometer (mas s/volume) 113 mg/dL 70-110 Capillary blood glucose measurement by g lucometer (mass/volume) - 01/21/20 16:25 Capillary blood glucose measurement by glucometer (mas s/volume) 125 mg/dL 70-110 Capillary blood glucose measurement by g lucometer (mass/volume) - 01/21/20 20:01 Capillary blood glucose measurement by glucometer (mas s/volume) 196 mg/dL 70-110 Complete blood count (CBC) with automate d white blood cell (WBC) differential - 01/22/20 03:25 Blood leukocytes automated count (number/volume) 13.9 10*3/uL 4.3-11.0 Blood erythrocytes automated count (number/volume) 2.88 10*6/uL 4.35-5.85 Venous blood hemoglobin measurement (mass/volume) 8.8 g/dL 13.3-17.7 Blood hematocrit (volume fraction) 28 % 40-54 Automated erythrocyte mean corpuscular volume 96 [ foz_us] 80-99 Automated erythrocyte mean corpuscular h emoglobin (mass per erythrocyte) 31 pg 25-34 Automated erythrocyte mean corpuscular h emoglobin concentration measurement (mass/volume) 32 g/dL 32-36 Automated erythrocyte distribution width ratio 15. 6 % 10.0- 14.5 Automated blood platelet count (count/volume) 784 10*3/uL 130-400 Automated blood platelet mean volume measurement 9.1 [foz_us] 7.4-10.4 Automated blood neutrophils/100 leukocytes 93 % 42-75 Automated blood lymphocytes/100 leukocytes 3 % 12-44 Blood monocytes/100 leukocytes 4 % 0-12 Automated blood eosinophils/100 leukocytes 0 % 0-10 Automated blood basophils/100 leukocytes 0 % 0-10 Blood neutrophils automated count (number/volume) 13.0 10*3 1.8-7.8 Blood lymphocytes automated count (number/volume) 0.4 10*3 1.0-4.0 Blood monocytes automated count (number/volume) 0. 5 10*3 0.0-1.0 Automated eosinophil count 0.0 10*3/uL 0 .0-0.3 Automated blood basophil count (count/volume) 0.0 10*3/uL 0.0-0.1 Whole blood basic metabolic panel - 04/05 03:25 Serum or plasma sodium measurement (moles/volume) 138 mmol/L 135-145 Serum or plasma potassium measurement (moles/volume) 3.8 mmol/L 3.6-5.0 Serum or plasma chloride measurement (moles/volume) 102 mmol/L 98-107 Carbon dioxide 29 mmol/L 21-32 Serum or plasma anion gap determination (moles/volume) 7 mmol/L 5-14 Serum or plasma urea nitrogen measurement (mass/volume ) 13 mg/dL 7-18 Serum or plasma creatinine measurement (mass/volume) 0.50 mg/dL 0.60-1.30 Serum or plasma urea nitrogen/creatinine mass ratio 26 NRG Serum or plasma creatinine measurement w ith calculation of estimated glomerular filtration rate > NRG Serum or plasma glucose measurement (mass/volume) 127 mg/dL 70-105 Serum or plasma calcium measurement (mass/volume) 7.3 mg/dL 8.5-10.1 Serum or plasma phosphate measurement (m ass/volume) - 01/22/20 03:25 Serum or plasma phosphate measurement (mass/volume) 2.3 mg/dL 2.3-4.7 Magnesium - 01/22/20 03:25 Magnesium 2.1 mg/dL 1.6-2.4 Complete blood count (CBC) with automate d white blood cell (WBC) differential - 01/23/20 05:05 Blood leukocytes automated count (number/volume) 18.2 10*3/uL 4.3-11.0 Blood erythrocytes automated count (number/volume) 3.03 10*6/uL 4.35-5.85 Venous blood hemoglobin measurement (mass/volume) 9.3 g/dL 13.3-17.7 Blood hematocrit (volume fraction) 30 % 40-54 Automated erythrocyte mean corpuscular volume 98 [ foz_us] 80-99 Automated erythrocyte mean corpuscular h emoglobin (mass per erythrocyte) 31 pg 25-34 Automated erythrocyte mean corpuscular h emoglobin concentration measurement (mass/volume) 31 g/dL 32-36 Automated erythrocyte distribution width ratio 16. 3 % 10.0- 14.5 Automated blood platelet count (count/volume) 775 10*3/uL 130-400 Automated blood platelet mean volume measurement 9.1 [foz_us] 7.4-10.4 Automated blood neutrophils/100 leukocytes 86 % 42-75 Automated blood lymphocytes/100 leukocytes 9 % 12-44 Blood monocytes/100 leukocytes 5 % 0-12 Automated blood eosinophils/100 leukocytes 0 % 0-10 Automated blood basophils/100 leukocytes 0 % 0-10 Blood neutrophils automated count (number/volume) 15.6 10*3 1.8-7.8 Blood lymphocytes automated count (number/volume) 1.7 10*3 1.0-4.0 Blood monocytes automated count (number/volume) 0. 9 10*3 0.0-1.0 Automated eosinophil count 0.0 10*3/uL 0 .0-0.3 Automated blood basophil count (count/volume) 0.0 10*3/uL 0.0-0.1 Whole blood basic metabolic panel - 05/06 05:05 Serum or plasma sodium measurement (moles/volume) 139 mmol/L 135-145 Serum or plasma potassium measurement (moles/volume) 3.5 mmol/L 3.6-5.0 Serum or plasma chloride measurement (moles/volume) 103 mmol/L 98-107 Carbon dioxide 29 mmol/L 21-32 Serum or plasma anion gap determination (moles/volume) 7 mmol/L 5-14 Serum or plasma urea nitrogen measurement (mass/volume ) 10 mg/dL 7-18 Serum or plasma creatinine measurement (mass/volume) 0.45 mg/dL 0.60-1.30 Serum or plasma urea nitrogen/creatinine mass ratio 22 NRG Serum or plasma creatinine measurement w ith calculation of estimated glomerular filtration rate > NRG Serum or plasma glucose measurement (mass/volume) 79 mg/dL 70-105 Serum or plasma calcium measurement (mass/volume) 7.2 mg/dL 8.5-10.1 Encounters ACCT No. Visit Date/Time Discharge Status Pt. Type Provider Facility Loc./Unit Complaint [id number] 01/11/2020 12:51:00 01/11/2020 15:15 :00 DIS Outpatient MOJGAN [place] [facility] [place] [id number] 01/11/2020 13:18:12 Document Registration [id number] 01/11/2020 15:52:[address] Inpatient SUSY FRIED, BLANE Cerda [facility] [address] SEPSIS
[2020-01-23] MEDS: RT-ALBUTEROL/IPRATROPIUM 3 ML (DUONEB) VIAL INH SCH ×3 (15:31→21:52)
[2020-01-23 16:00] VITALS: BP 103/68
[2020-01-23] MEDS: RIVAROXABAN 20 MG TABLET (XARELTO) PO SCH (16:32)
[2020-01-23] MEDS: FERROUS SULF 325 MG (IRON) TAB PO SCH (16:32)
[2020-01-23] MEDS: oxyCODONE 5 MG/5 ML ORAL SOLN (roxiCODONE) 5 ML UDC PO PRN ×2 (16:33→20:40)
[2020-01-23] MEDS: PIPERACILLIN/TAZOBACTAM (BULK) 4.5 GM in NS (IVPB) 100 ML IV SCH (17:53)
[2020-01-23 18:15] VITALS: BP 103/68
[2020-01-23 20:00] VITALS: BP 106/62
[2020-01-23] MEDS: meTOprolol TARTRATE 25 MG (LOPRESSOR) TABLET PO SCH (20:33)
[2020-01-23] MEDS: guaiFENesin (MUCINEX) 600 MG TAB PO SCH (20:39)
[2020-01-24] MEDS: RT-ALBUTEROL/IPRATROPIUM 3 ML (DUONEB) VIAL INH SCH ×6 (02:09→21:48)
[2020-01-24] MEDS: PIPERACILLIN/TAZOBACTAM (BULK) 4.5 GM in NS (IVPB) 100 ML IV SCH ×3 (02:43→18:34)
[2020-01-24 05:31] VITALS: BP 100/58
[2020-01-24] MEDS: predniSONE 20 MG TAB PO SCH (06:08)
[2020-01-24] MEDS: MULTIVIT W/MINERALS TAB (THERAGRAN M) PO SCH (06:08)
[2020-01-24] MEDS: FERROUS SULF 325 MG (IRON) TAB PO SCH ×2 (06:08→17:14)
[2020-01-24 06:38] LABS: BASOPHILS % (AUTO) 0 % (0-10); EOSINOPHILS # (AUTO) 0.1 10^3/uL (0.0-0.3); EOSINOPHILS % (AUTO) 1 % (0-10); HEMATOCRIT 26 % (40-54); HEMOGLOBIN 8.2 G/DL (13.3-17.7); LYMPHOCYTES # (AUTO) 1.3 X 10^3 (1.0-4.0); LYMPHOCYTES % (AUTO) 11 % (12-44); MEAN CORPUSCULAR HEMOGLOBIN 31 PG (25-34); MEAN CORPUSCULAR HGB CONC 32 G/DL (32-36); MEAN CORPUSCULAR VOLUME 97 FL (80-99); MEAN PLATELET VOLUME 9.1 FL (7.4-10.4); MONOCYTES # (AUTO) 0.8 X 10^3 (0.0-1.0); MONOCYTES % (AUTO) 7 % (0-12); NEUTROPHILS # (AUTO) 9.9 X 10^3 (1.8-7.8); NEUTROPHILS % (AUTO) 82 % (42-75); PLATELET COUNT 637 10^3/uL (130-400); RED CELL DISTRIBUTION WIDTH 16.5 % (10.0-14.5); WHITE BLOOD COUNT 12.1 10^3/uL (4.3-11.0)
[2020-01-24 07:01] LABS: ALANINE AMINOTRANSFERASE 41 U/L (0-55); ALKALINE PHOSPHATASE 57 U/L (40-136); BILIRUBIN,TOTAL 0.3 MG/DL (0.1-1.0); BUN/CREATININE RATIO 30; CALCIUM 7.2 MG/DL (8.5-10.1); CARBON DIOXIDE 28 MMOL/L (21-32); CHLORIDE 104 MMOL/L (98-107); CREATININE SERUM 0.44 MG/DL (0.60-1.30); GFR ESTIMATED > 60; GLUCOSE 86 MG/DL (70-105); PHOSPHORUS 2.3 MG/DL (2.3-4.7); POTASSIUM 3.6 MMOL/L (3.6-5.0); SODIUM 139 MMOL/L (135-145); TOTAL PROTEIN 4.4 GM/DL (6.4-8.2)
--- NOTE | 2020-01-24 08:58 | Diagnostic Imaging Report ---
Clinical indications: Patient shortness of air. Exam: Portable chest x-ray upright view. Comparisons: Portable chest x-ray dated 01/23/2020. Findings: There is no significant interval change in the amorphous patchy airspace infiltrates/opacities in the left midlung field/left upper lobe region, right midlung field region, and right lung base. Is no pleural effusion or pneumothorax. Again seen COPD like changes with hyperinflated lungs and flattened hemidiaphragm. Pulmonary vasculature and chronic silhouettes within normal limits. Central line again seen overlying left chest with tip in the caval atrial junction region. The remainder of this exam shows no significant interval change compared to the prior study of comparison. IMPRESSION: 1: Stable chest x-ray exam with bilateral lung infiltrates involving both midlung hugo, left upper lung field, and right lung base. 2: Again seen COPD lung changes. Dictated by: Dictated on workstation # [id number]
--- NOTE | 2020-01-24 09:17 | Physical Therapy Daily Note ---
PT Daily Note-Current Subjective Pt is confused and eager to leave. Pt reports (L) heel pain during treatment. Pain Numeric Pain Scale: 5-Moderate Pain Location: Left Location Body Site: Foot Pain Description: Sharp Mental Status Patient Orientation: Person Attachments: Jackson Catheter Transfers SCALE: Activities may be completed with or without assistive devices. 0-Eeptslodzv-ivcrtuz completes the activity by him/herself with no assistance from a helper. 5-Set-up or Clean-up Assistance-helper sets up or cleans up; patient completes activity. [place] assists only prior to or following the activity. 4-Supervision or Touching Assistance-helper provides verbal cues and/or touching/steadying and/or contact guard assistance as patient completes activity. Assistance may be provided throughout the activity or intermittently. 3-Partial/Moderate Assistance-helper does LESS THAN HALF the effort. [place] lifts, holds or supports trunk or limbs, but provides less than half the effort. 2-Substantial/Maximal Assistance-helper does MORE THAN HALF the effort. [place] lifts or holds trunk or limbs and provides more than half the effort. 4-Nxihdizfq-jtvstu does ALL the effort. Patient does none of the effort to complete the activity. Or, the assistance of 2 or more helpers is required for the patient to complete the activity. If activity was not attempted, code reason: 7-Patient Refused. 9-Not Applicable-not attempted and the patient did not perform the activity before the current illness, exacerbation or injury. 10-Not Attempted due to Environmental Limitations-(lack of equipment, weather restraints, etc.). 88-Not Attempted due to Medical Conditions or Safety Concerns. Roll Left & Right (QC): 2 Sit to Lying (QC): 2 Sit to Stand (QC): 2 Toilet Transfer (QC): 2 Weight Bearing Right Lower Extremity: Right Weight Bearing/Tolerated Left Lower Extremity: Left Weight Bearing/Tolerated Gait Training Does the Patient Walk?: No and Walking Goal IS indicated Gait Persons Needed: 1 Performed max assist toilet transfer and had pt take 2 steps to the (R) to return to bed after toileting. Exercises Supine Ex: LE Protocol Supine Reps: 20 Better participation today with supine ex. Assessment Current Status: Good Progress Better overall participation with therapy and able to stand for 30sec 2x for functional activities. PT Short Term Goals Short Term Goals Time Frame: February 07, 2020 Roll Left & Right: 3 Sit to lyin Lying to sitting on side of be: 3 Sit to stand: 3 Chair/ayu-fr-esvog transfer: 3 Toilet transfer: 3 Walk 10 feet: 3 PT Senior Care Manager Goals Senior Care Manager Goals PT Senior Care Manager Goals Time Frame: Feb 21, 2020 Roll Left & Right (QC): 5 Sit to Lying (QC): 5 Lying-Sitting on Side/Bed(QC): 5 Sit to Stand (QC): 5 Chair/Rap-ev-Juepp Xfer(QC): 5 Toilet Transfer (QC): 5 Car Transfer (QC): 5 Does the Patient Walk: Yes Walk 10 feet (QC): 5 Walk 50ft with 2 Turns (QC): 5 Walk 150 ft (QC): 5 Walking 10ft on Uneven Surface: 5 1 Step (curb) (QC): 5 4 Steps (QC): 5 12 Steps (QC): 5 Picking up an Object (QC): 5 Does the Pt use WC or Scooter?: No Wheel 50 feet with 2 turns (QC: 9 Type: N/A Wheel 150 feet: 9 Type: N/A PT Plan Treatment/Plan Treatment Plan: Continue Plan of Care Treatment Plan: Bed Mobility, Education, Functional Activity Lorena, Functional Strength, Gait, Safety, Therapeutic Exercise, Transfers Treatment Duration: Feb 21, 2020 Frequency: 6 times per week Estimated Hrs Per Day: .25 hour per day Patient and/or Family Agrees t: Yes Time/GCodes Time In: 0835 Time Out: 09 Total Billed Treatment Time: 30 Total Billed Treatment 1, ex (15), fa (15) LYDIA BELLA PT January 24, 2020 09:17
[2020-01-24] MEDS: FOLIC ACID 1 MG TAB PO SCH (09:38)
[2020-01-24] MEDS: meTOprolol TARTRATE 25 MG (LOPRESSOR) TABLET PO SCH ×2 (09:38→20:58)
[2020-01-24] MEDS: guaiFENesin (MUCINEX) 600 MG TAB PO SCH ×2 (09:38→20:59)
[2020-01-24] MEDS: CLOPIDOGREL 75 MG (PLAVIX) TABLET PO SCH (09:38)
[2020-01-24] MEDS: PANTOPRAZOLE 40 MG (PROTONIX) VIAL IV SCH (09:38)
[2020-01-24] MEDS: NICOTINE 14 MG (NICODERM) PATCH TD SCH (09:39)
[2020-01-24] MEDS: PATCH REMOVAL TP SCH (09:39)
[2020-01-24] MEDS: DIGOXIN 0.25 MG (LANOXIN) TAB PO SCH (09:39)
[2020-01-24] MEDS ORDERED: KCL 10 MEQ TAB (MICRO K) PO NR (10:30)
[2020-01-24 12:09] VITALS: BP 122/79
--- NOTE | 2020-01-24 16:13 | Progress Note - Cardiology ---
Cardiology SOAP Progress Note Subjective: Gen weakness and malaise Shortness of breath with exertion Poor stamina No n/v/d No cp or palp or syncope Objective: I&O/Vital Signs 01/24/20 01/24/20 01/24/20 01/24/20 05:31 06:39 07:01 09:02 Temp 37.6 Pulse 100 90 Resp 18 B/P (MAP) 100/58 (72) Pulse Ox 97 93 O2 Delivery High Flow N/C High Flow N/C High Flow N/C O2 Flow Rate 13.00 12.00 13.00 01/24/20 01/24/20 01/24/20 01/24/20 10:14 12:09 12:37 14:45 Temp 37.6 Pulse 108 92 Resp 20 B/P (MAP) 122/79 (93) Pulse Ox 96 100 93 O2 Delivery High Flow N/C High Flow N/C High Flow N/C O2 Flow Rate 10.00 13.00 8.00 01/24/20 00:00 Intake Total 1750 ml Output Total 1200 ml Balance 550 ml Constitutional: AAO x 3, other (cachetic appearance) Respiratory: No accessory muscle use; other (fair air entry, prolonged exp, diminished bs at bases) Cardiovascular: regular rate-rhythm, S1 and S2, systolic murmur (soft BETSY at card base) Gastrointestional: No tender; soft; No guarding, No rebound; audible bowel sounds Extremities: other (mild bilat leg edema (more on R); blackish-blue discoloration of the tips of the toes of the R foot); No clubbing, No cyanosis Neurologic/Psychiatric: oriented x 3, other (moves all limbs equally, equally weak on both sides) Skin: warm/dry; No diaphoresis, No damp; other (see under extremities exam above) Results/Procedures: Labs Laboratory Tests 01/24/20 06:30: White Blood Count 12.1H, Red Blood Count 2.63L, Hemoglobin 8.2L, Hematocrit 26L, Mean Corpuscular Volume 97, Mean Corpuscular Hemoglobin 31, Mean Corpuscular Hemoglobin Concent 32, Red Cell Distribution Width 16.5H, Platelet Count 637H, Mean Platelet Volume 9.1, Neutrophils (%) (Auto) 82H, Lymphocytes (%) (Auto) 11L , Monocytes (%) (Auto) 7, Eosinophils (%) (Auto) 1, Basophils (%) (Auto) 0, Neutrophils # (Auto) 9.9H, Lymphocytes # (Auto) 1.3, Monocytes # (Auto) 0.8, Eosinophils # (Auto) 0.1, Basophils # (Auto) 0.0, Sodium Level 139, Potassium Level 3.6, Chloride Level 104, Carbon Dioxide Level 28, Anion Gap 7, Blood Urea Nitrogen 13, Creatinine 0.44L, Estimat Glomerular Filtration Rate > 60, BUN/Creatinine Ratio 30, Glucose Level 86, Calcium Level 7.2L, Corrected Calcium 8.8, Phosphorus Level 2.3, Magnesium Level 2.0, Total Bilirubin 0.3, Aspartate Amino Transf (AST/SGOT) 31, Alanine Aminotransferase (ALT/SGPT) 41, Alkaline Phosphatase 57, B-Type Natriuretic Peptide 149.2H, Total Protein 4.4L, Albumin 2.0L A/P: Assessment: Acute limb ischemia due to thromboembolic occlusion of R distal SFA, and large thrombus in the R proximal SFA, treated with TNK and heparin and MARKET RESEARCH LEAD by Dr Watson with sabianism of antegrade flow and with R blue-toe syndrome. Maintained on rivaroxaban and clopidogrel PAF Acute respiratory failure, pneumonia and lung mass, required mech vent (now off mech vent) 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 Has been on disability Tobaccoism, stopped smoking in December 2019, advised to continue to refrain Anemia of undetermined etiology, managed by the Med Svce Plan: * Complex management due to multiple comorbidities * I discussed his CV issues with him and answered questions * Monitor labs from time to time DELIA TRIANA MD FACP FAC CCDS January 24, 2020 16:13
[2020-01-24] MEDS: oxyCODONE 5 MG/5 ML ORAL SOLN (roxiCODONE) 5 ML UDC PO PRN (16:47)
[2020-01-24 16:57] VITALS: BP 109/71
[2020-01-24] MEDS: RIVAROXABAN 20 MG TABLET (XARELTO) PO SCH (17:14)
--- NOTE | 2020-01-24 17:43 | NUR ---
ICU CALLED AND HR 160S -- PT ON CONTINOUS PULSE OX AND HR 148- 128 -- BOUNCING AROUND -- PT WA ASYM AND CARDIZEM 60 MG TAB WAS GIVEN (SCHEDULED MED) AND RT WAS CALLED ABOUT RESP 80-92%--PER RT THIS RN INCREASED PT'S O2 BACK TO 10 L/ HIGH FLOW AND SAT UP TOO 95-96% -- ICU CALLED AGAIN AND PT IN [id number] -- AFIB -- PT REMAINS ASYM -- URVASHI AMAYA HEART RATE Addendum: 01/24/20 at 1753 by CARRIE BARBOUR RN DR KONG ZAMORA
--- NOTE | 2020-01-24 18:02 | NUR ---
RT TO ROOM, CALLED SECURITIES TRADER TO MAKE SURE DR TRIANA IS ON -- SHE WILL GET BACK TO ME RT ADJUSTED O2 TO 8L/HIGH FLOW
--- NOTE | 2020-01-24 18:03 | NUR ---
TINT LAYER CALLED BACK AND YES DR TRIANA IS ON AND SHE PAGED HIM TO THE CELL
--- NOTE | 2020-01-24 18:20 | NUR ---
AT 181 DR TRIANA CALLED BACK AND HE REQUESTED BROADCAST FIELD SUPERVISOR TALK TO NOC RN ABOUT HOLDING MEDS -- GOT NEW ORDER FROM DR TRIANA -- CARDIZEM CD 300 MG TAB PO NOW AND FOR CARDIZEM CD 300MG TAB PO DAILY -- TO HOLD IF SB/P LESS THAN 90 AND HR LESS THAN 50) --
--- NOTE | 2020-01-24 18:46 | NUR ---
RESP RATES -- BOUNCING AROUND AT 84-96 -- RT CALLED AND THEY WILL BE TO FLOOR
--- NOTE | 2020-01-24 18:50 | NUR ---
RT TO FLOOR AND CHECKED PT -- O2 REMAINS AT 8L/HIGH FLOW
[2020-01-24 20:36] VITALS: BP 96/62
--- NOTE | 2020-01-24 20:54 | NUR ---
Notified Dr. Arndt at this time pt's bp 96/62 and pulse 148. He said to give scheduled metoprolol now. Will continue to monitor the pt.
[2020-01-25] VITALS (7 sets, daily range): BP systolic 90–131; BP diastolic 56–74
[2020-01-25] MEDS: PIPERACILLIN/TAZOBACTAM (BULK) 4.5 GM in NS (IVPB) 100 ML IV SCH ×2 (02:27→11:00)
[2020-01-25] MEDS: RT-ALBUTEROL/IPRATROPIUM 3 ML (DUONEB) VIAL INH SCH ×6 (02:38→21:47)
[2020-01-25] MEDS: morphine INJ 4 MG/ML 1 ML (VIAL/SYRINGE) IVP PRN ×2 (04:20→20:56)
[2020-01-25 05:07] LABS: BASOPHILS % (AUTO) 0 % (0-10); EOSINOPHILS # (AUTO) 0.1 10^3/uL (0.0-0.3); EOSINOPHILS % (AUTO) 1 % (0-10); HEMATOCRIT 25 % (40-54); HEMOGLOBIN 7.8 G/DL (13.3-17.7); LYMPHOCYTES # (AUTO) 1.3 X 10^3 (1.0-4.0); LYMPHOCYTES % (AUTO) 8 % (12-44); MEAN CORPUSCULAR HEMOGLOBIN 31 PG (25-34); MEAN CORPUSCULAR HGB CONC 32 G/DL (32-36); MEAN CORPUSCULAR VOLUME 99 FL (80-99); MEAN PLATELET VOLUME 9.2 FL (7.4-10.4); MONOCYTES # (AUTO) 1.2 X 10^3 (0.0-1.0); MONOCYTES % (AUTO) 8 % (0-12); NEUTROPHILS # (AUTO) 12.5 X 10^3 (1.8-7.8); NEUTROPHILS % (AUTO) 83 % (42-75); PLATELET COUNT 626 10^3/uL (130-400); RED CELL DISTRIBUTION WIDTH 17.3 % (10.0-14.5); WHITE BLOOD COUNT 15.1 10^3/uL (4.3-11.0)
[2020-01-25 05:18] LABS: CHLORIDE 106 MMOL/L (98-107); POTASSIUM 3.9 MMOL/L (3.6-5.0); SODIUM 140 MMOL/L (135-145)
[2020-01-25 05:19] LABS: CALCIUM 7.2 MG/DL (8.5-10.1)
[2020-01-25 05:20] LABS: GLUCOSE 92 MG/DL (70-105)
[2020-01-25 05:21] LABS: CARBON DIOXIDE 28 MMOL/L (21-32)
[2020-01-25 05:23] LABS: PHOSPHORUS 2.2 MG/DL (2.3-4.7)
[2020-01-25 05:24] LABS: CREATININE SERUM 0.45 MG/DL (0.60-1.30); GFR ESTIMATED > 60
[2020-01-25 05:25] LABS: BUN/CREATININE RATIO 27
[2020-01-25 05:26] LABS: MAGNESIUM 2.1 MG/DL (1.6-2.4)
[2020-01-25] MEDS: MULTIVIT W/MINERALS TAB (THERAGRAN M) PO SCH ×2 (06:42→06:57)
[2020-01-25] MEDS: FERROUS SULF 325 MG (IRON) TAB PO SCH ×3 (06:42→17:23)
[2020-01-25] MEDS: predniSONE 20 MG TAB PO SCH ×2 (06:42→06:56)
[2020-01-25] MEDS: CLOPIDOGREL 75 MG (PLAVIX) TABLET PO SCH (09:05)
[2020-01-25] MEDS: NICOTINE 14 MG (NICODERM) PATCH TD SCH (09:05)
[2020-01-25] MEDS: PATCH REMOVAL TP SCH (09:05)
[2020-01-25] MEDS: guaiFENesin (MUCINEX) 600 MG TAB PO SCH ×2 (09:05→20:55)
[2020-01-25] MEDS: DIGOXIN 0.25 MG (LANOXIN) TAB PO SCH (09:05)
[2020-01-25] MEDS: meTOprolol TARTRATE 25 MG (LOPRESSOR) TABLET PO SCH ×2 (09:06→20:55)
[2020-01-25] MEDS: PANTOPRAZOLE 40 MG (PROTONIX) VIAL IV SCH (09:06)
[2020-01-25] MEDS: FOLIC ACID 1 MG TAB PO SCH (09:06)
--- NOTE | 2020-01-25 10:20 | NUR ---
NOTE THAT PT IS MORE CONFUSED TODAY -- WHILE THIS RN WAS GIVING AM MEDS PT WAS PT WAS MORE CONFUSED AND VOICED THAT PT WAS COMING TO HIS HOME FOR TREATMENT - THIS RN TRIED TO REORIENT HIM -- HE REMAINED CONFUSED AND CURSED AT THE RN THAT HE WAS RIGHT -- DID NOT ARGUE WITH HOME LET HIM VENT -- RT WAS TO FLOOR AND PT HAS CONTINUALLY PULLING THE CONT. PULSE OX OFF HIS FINGER -- RT REAPPLIED AND ADVISED THIS RN THAT PT 02 HAS BEEN DECREASED TO 3L/NC AND THAT PT WOULD PROBABLY PULL IT OFF AGAIN DUE TO HIS CONFUSION AN THAT RT WOULD CHECK O2 SAT WHEN NEEDED
[2020-01-25] MEDS ORDERED: LORazepam INJ 2 MG/ML (ATIVAN) VIAL ONE (11:58)
[2020-01-25] MEDS ORDERED: LORazepam INJ 2 MG/ML (ATIVAN) VIAL IVP PRN (12:00)
--- NOTE | 2020-01-25 12:16 | NUR ---
THIS RN TRIED TO WASTE 0.5MG IV ATIVAN ON [facility] WITH PTROTHRN -
--- NOTE | 2020-01-25 12:20 | NUR ---
PT WAS VERY CONFUSED AND DEMANDING TO LEAVE VOICED TO DR JAIN HE WAS TRYING ON HIS FIRE BOOTS AND THAT FIRE DEPARTMENT WAS CALLED OUT TO HIS ROOM , HE WANTED TO GO A CROSS THE STREET TO HIS BROTHERS -- THIS RN CALLED HIS BROTHER, GATO ([phone]) AND HAD HIM TALK TO ARSENIO -- PT REMAINED CONFUSED AND DID GET MORE AGITATED -- NOTE THAT THIS RN HAD GOTTEN IV ATIVAN ORDER FROM DR JAIN AND IT WAS GIVEN -- PT'S BROTHER LET HIM MARIAH TO HIM AND AFTER TOOK STAFF IF THEY NEEDED HIM TO TALK WITH THE PT AGAIN TO CALL AND HE WOULD TALK TO HIM
--- NOTE | 2020-01-25 13:27 | Progress Note - Cardiology ---
Cardiology SOAP Progress Note Subjective: No cp or palp or syncope or shortness of breath at rest No significant leg swelling or foot discomfort Gen malaise No focal weaknes No n/v/d Objective: I&O/Vital Signs 01/25/20 01/25/20 01/25/20 01/25/20 02:39 04:00 06:49 08:00 Temp 36.6 37.8 Pulse 75 80 Resp 21 20 B/P (MAP) 92/56 (68) 100/65 (77) Pulse Ox 95 95 96 97 O2 Delivery High Flow N/C High Flow N/C High Flow N/C High Flow N/C O2 Flow Rate 5.00 6.00 4.00 6.00 01/25/20 01/25/20 01/25/20 01/25/20 09:00 09:13 10:10 12:00 Temp 37.9 Pulse 79 73 Resp 20 B/P (MAP) 131/73 (92) Pulse Ox 96 95 94 O2 Delivery Nasal Cannula High Flow N/C High Flow N/C O2 Flow Rate 4.00 4.00 6.00 01/25/20 00:00 Intake Total 3469 ml Output Total 2600 ml Balance 869 ml Constitutional: No AAO x 3; other (cachetic appearance, confused today) Respiratory: No accessory muscle use; other (fair air entry, prolonged exp, diminished bs at bases) Cardiovascular: regular rate-rhythm, S1 and S2, systolic murmur (soft BETSY at card base) Gastrointestional: No tender; soft; No guarding, No rebound; audible bowel sounds Extremities: other (mild bilat leg edema (more on R); blackish-blue discoloration of the tips of the toes of the R foot); No clubbing, No cyanosis Neurologic/Psychiatric: oriented x 3, other (moves all limbs equally, equally weak on both sides) Skin: warm/dry; No diaphoresis, No damp; other (see under extremities exam above) Results/Procedures: Labs Laboratory Tests 01/25/20 04:52: White Blood Count 15.1H, Red Blood Count 2.51L, Hemoglobin 7.8L, Hematocrit 25L, Mean Corpuscular Volume 99, Mean Corpuscular Hemoglobin 31, Mean Corpuscular Hemoglobin Concent 32, Red Cell Distribution Width 17.3H, Platelet Count 626H, Mean Platelet Volume 9.2, Neutrophils (%) (Auto) 83H, Lymphocytes (%) (Auto) 8L, Monocytes (%) (Auto) 8, Eosinophils (%) (Auto) 1, Basophils (%) (Auto) 0, Neutrophils # (Auto) 12.5H, Lymphocytes # (Auto) 1.3, Monocytes # (Auto) 1.2H, Eosinophils # (Auto) 0.1, Basophils # (Auto) 0.0, Sodium Level 140, Potassium Level 3.9, Chloride Level 106, Carbon Dioxide Level 28, Anion Gap 6, Blood Urea Nitrogen 12, Creatinine 0.45L, Estimat Glomerular Filtration Rate > 60, BUN/Creatinine Ratio 27, Glucose Level 92, Calcium Level 7.2L, Phosphorus Level 2.2L, Magnesium Level 2.1 Laboratory Tests 01/24/20 06:30 01/25/20 04:52 A/P: Assessment: Acute limb ischemia due to thromboembolic occlusion of R distal SFA, and large thrombus in the R proximal SFA, treated with TNK and heparin and SECURED ENTRANCE MONITOR by Dr Watson with mosque of antegrade flow and with R blue-toe syndrome. Maintained on rivaroxaban and clopidogrel PAF with RVR on 01/24/20 Acute respiratory failure, pneumonia and lung mass, required mech vent (now off mech vent) 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 Has been on disability Tobaccoism, stopped smoking in December 2019, advised to continue to refrain Anemia of undetermined etiology, managed by the Med Svce Plan: * Complex management due to multiple comorbidities * Increased dilt and changed to long-acting last night, continued bb. This was for PAF with RVR. Is in regular rhythm this am * Anemia appears to be worsening. Consider transfusion if h&h continues to drop * Monitor labs from time to time DELIA TRIANA MD [facility] CCDS January 25, 2020 13:27
[2020-01-25] MEDS: RIVAROXABAN 20 MG TABLET (XARELTO) PO SCH (17:23)
--- NOTE | 2020-01-25 17:49 | NUR ---
PT REMAINS VERY CONFUSED -- HE VOICED THAT THE BED WAS HIS SMALL BOAT AND HE NEEDED OUT OF IT TO [place]YL[place] IT TO HIS MOM AND DAD'S -- STAFF HAS TRIED TO RE ORIENT HIM BUT HE REMAINS CONFUSED AND TRYING TO GET OUT OF BED -- NA IS IN ROOM WITH PT SO HE WILL EAT --
--- NOTE | 2020-01-25 19:28 | Progress Note - Hospitalist ---
Subjective HPI/CC On Admission Date Seen by Provider: January 25, 2020 Time Seen by Provider: 12:15 Subjective/Events-last exam Called to bedside due to confusion. Patient thought he was at his home on and Sm. He asked me to help him up and put him in my car and drive him to his brother's. I told him this was not possible and he asked "Why are you doing this to me?" Shortly after his nurse brought a phone to him with his brother on the line to help attempt to calm him. Objective Exam Vital Signs Vital Signs Date Time Temp Pulse Resp B/P (MAP) Pulse Ox O2 Delivery O2 Flow Rate FiO2 01/25/20 18:38 92 High Flow N/C 3.00 01/25/20 15:35 37.4 73 20 97/63 (74) Capillary Refill : Less Than 3 SecondsLess Than 3 Seconds General Appearance: Anxious, Chronically ill Respiratory: Lungs Clear, No Respiratory Distress Cardiovascular: Regular Rate, Rhythm, No Murmur Gastrointestinal: Normal Bowel Sounds, Non Tender, Soft Extremity: Swelling (1+ bilaterally) Neurologic/Psychiatric: Other (oriented to person only, confused to place and situation) Results/Procedures Lab Laboratory Tests 01/25/20 04:52 Patient resulted labs reviewed. Assessment/Plan Assessment and Plan Assess & Plan/Chief Complaint Pneumonia Acute respiratory failure with hypoxia- resolved Possible left upper lobe mass Likely COPD Tobacco abuse Extubated 01/19, now on nasal cannula Pulmonology consulted, appreciate assistance COVID negative at outside facility, flu negative continue Zosyn, prednisone Sputum culture MURF Confusion - Will check UA - Reorient as able - likely ICU psychosis - Does not appear that he was on systems integration advisor benzos during intubation but did appear to receive some, will use ativan for confusion in case component of wit hdrawal Atrial fibrillation with rapid ventricular response Acute occlusion of artery of right lower extremity due to thromboembolism Cardiology consulted, appreciate assistance Underwent emergent angiogram with thrombolytics and balloon angioplasty 01/12 Continue Plavix and Xarelto Iron deficiency anemia Anemia of chronic disease Folic acid deficiency Hemoglobin, dropped somewhat today Iron studies consistent with both iron deficiency and anemia of chronic disease - Replete with Infed when more stable Folic acid level low Continue folic acid and iron supplementation Fecal occult blood positive Will need a colonoscopy at some point, likely outpatient due to respiratory status Severe protein calorie malnutrition Dietary consulted, continue supplements DVT prophylaxis: Already receiving Xarelto Clinical Quality Measures DVT/VTE Risk/Contraindication: Risk Factor Score Per Nursin BLANE JAIN MD January 25, 2020 19:28
[2020-01-25] MEDS: risperiDONE 0.25 MG (RisperDAL) TAB PO SCH (20:55)
[2020-01-25 21:22] LABS: BILIRUBIN,URINE NEGATIVE (NEGATIVE); CLARITY,URINE CLEAR; COLOR,URINE YELLOW; GLUCOSE, URINE (UA) NEGATIVE (NEGATIVE); KETONES,URINE NEGATIVE (NEGATIVE); LEUKOCYTE ESTERASE ,URINE NEGATIVE (NEGATIVE); NITRITE,URINE NEGATIVE (NEGATIVE); PH,URINE 8.5 (5-9); PROTEIN,URINE NEGATIVE (NEGATIVE)
[2020-01-25 21:31] LABS: AMORPHOUS SEDIMENT,UR FEW AMOR PHOSPHATE /LPF; BACTERIA,URINE FEW /HPF
[2020-01-26] MEDS: RT-ALBUTEROL/IPRATROPIUM 3 ML (DUONEB) VIAL INH SCH ×6 (02:30→21:30)
[2020-01-26 04:52] VITALS: BP 103/66
[2020-01-26 05:04] LABS: BASOPHILS % (AUTO) 0 % (0-10); EOSINOPHILS # (AUTO) 0.2 10^3/uL (0.0-0.3); EOSINOPHILS % (AUTO) 1 % (0-10); HEMATOCRIT 27 % (40-54); HEMOGLOBIN 8.4 G/DL (13.3-17.7); LYMPHOCYTES % (AUTO) 8 % (12-44); MEAN CORPUSCULAR HEMOGLOBIN 31 PG (25-34); MEAN CORPUSCULAR HGB CONC 32 G/DL (32-36); MEAN CORPUSCULAR VOLUME 98 FL (80-99); MEAN PLATELET VOLUME 9.2 FL (7.4-10.4); MONOCYTES # (AUTO) 1.1 X 10^3 (0.0-1.0); MONOCYTES % (AUTO) 8 % (0-12); NEUTROPHILS # (AUTO) 11.2 X 10^3 (1.8-7.8); NEUTROPHILS % (AUTO) 83 % (42-75); PLATELET COUNT 587 10^3/uL (130-400); RED CELL DISTRIBUTION WIDTH 17.4 % (10.0-14.5); WHITE BLOOD COUNT 13.5 10^3/uL (4.3-11.0)
[2020-01-26 05:27] LABS: BUN/CREATININE RATIO 24; CALCIUM 7.7 MG/DL (8.5-10.1); CARBON DIOXIDE 26 MMOL/L (21-32); CHLORIDE 105 MMOL/L (98-107); CREATININE SERUM 0.45 MG/DL (0.60-1.30); GFR ESTIMATED > 60; GLUCOSE 106 MG/DL (70-105); MAGNESIUM 2.1 MG/DL (1.6-2.4); PHOSPHORUS 2.8 MG/DL (2.3-4.7); POTASSIUM 3.8 MMOL/L (3.6-5.0); SODIUM 138 MMOL/L (135-145)
--- NOTE | 2020-01-26 05:57 | Pulmonary Progress Note ---
Subjective Time Seen by a Provider: 05:56 Subjective/Events-last exam No complications noted. Sepsis Event Evaluation Height, Weight, BMI Height: '" Weight: lbs. oz. kg; 16.01 BMI Method: Exam Exam Vital Signs Date Time Temp Pulse Resp B/P (MAP) Pulse Ox O2 Delivery O2 Flow Rate FiO2 01/26/20 04:52 37.5 92 20 103/66 (78) 95 High Flow N/C 3.00 01/26/20 02:22 92 High Flow N/C 3.00 01/26/20 01:00 80 01/25/20 23:25 37.2 77 22 104/68 (80) 96 High Flow N/C 3.00 01/25/20 21:47 91 High Flow N/C 3.00 01/25/20 21:00 High Flow N/C 4.00 01/25/20 19:58 37.5 90 22 112/74 (87) 95 High Flow N/C 3.00 01/25/20 19:00 83 01/25/20 18:38 92 High Flow N/C 3.00 01/25/20 15:35 37.4 73 20 97/63 (74) 94 High Flow N/C 3.00 01/25/20 14:32 90 High Flow N/C 3.00 01/25/20 12:58 91 01/25/20 12:00 37.9 73 20 131/73 (92) 94 High Flow N/C 6.00 01/25/20 10:10 95 High Flow N/C 4.00 01/25/20 09:13 79 01/25/20 09:00 96 Nasal Cannula 4.00 01/25/20 08:00 37.8 80 20 100/65 (77) 97 High Flow N/C 6.00 01/25/20 06:49 96 High Flow N/C 4.00 I & O 01/26/20 07:00 Intake Total 2696 ml Output Total 6300 ml Balance -3604 ml Height & Weight Height: '" Weight: lbs. oz. kg; 16.01 BMI Method: General Appearance: Anxious, Chronically ill Respiratory: Lungs Clear, No Respiratory Distress Cardiovascular: Regular Rate, Rhythm, No Murmur Capillary Refill: Less Than 3 Seconds Extremity: Swelling (1+ bilaterally) Neurologic/Psychiatric: Other (oriented to person only, confused to place and situation) Results Lab Laboratory Tests 01/24/20 06:30 01/25/20 04:52 01/26/20 05:00 Assessment/Plan Assessment/Plan Acute on chronic respiratory failure -doing well off vent resolving PNA -- -will need repeat CT scan 8wks after discharge - SVNS Acute occlusion of artery of right lower extremity s/p abdominal aorta gram with TPA via cath anemia -monitor - protonix Tobacco use with probable COPD JENI DENISE DO January 26, 2020 05:57
[2020-01-26] MEDS: predniSONE 20 MG TAB PO SCH (06:14)
[2020-01-26] MEDS: FERROUS SULF 325 MG (IRON) TAB PO SCH ×2 (06:14→17:06)
[2020-01-26] MEDS: MULTIVIT W/MINERALS TAB (THERAGRAN M) PO SCH (06:14)
[2020-01-26 07:09] VITALS: BP 101/66
[2020-01-26] MEDS: guaiFENesin (MUCINEX) 600 MG TAB PO SCH ×2 (08:14→22:08)
[2020-01-26] MEDS: NICOTINE 14 MG (NICODERM) PATCH TD SCH (08:14)
[2020-01-26] MEDS: meTOprolol TARTRATE 25 MG (LOPRESSOR) TABLET PO SCH ×2 (08:14→22:09)
[2020-01-26] MEDS: risperiDONE 0.25 MG (RisperDAL) TAB PO SCH ×2 (08:14→22:09)
[2020-01-26] MEDS: PANTOPRAZOLE 40 MG (PROTONIX) VIAL IV SCH (08:14)
[2020-01-26] MEDS: FOLIC ACID 1 MG TAB PO SCH (08:14)
[2020-01-26] MEDS: CLOPIDOGREL 75 MG (PLAVIX) TABLET PO SCH (08:14)
[2020-01-26] MEDS: DIGOXIN 0.25 MG (LANOXIN) TAB PO SCH (08:14)
[2020-01-26] MEDS: PATCH REMOVAL TP SCH (08:15)
--- NOTE | 2020-01-26 08:50 | Cardiology Progress Note ---
Subjective Date Seen by Provider: January 26, 2020 Time Seen by Provider: 08:49 Subjective/Events-last exam patient in bed, complaining of generalized weakness. Denies any chest pain. Review of Systems General: Fatigue, Malaise HEENT: No Visual Changes, No Eye Pain, No Dysphasia Pulmonary: No Dyspnea, No Cough Cardiovascular: No: Chest Pain, Palpitations Gastrointestinal: No: Nausea, Vomiting, Abdominal Pain Genitourinary: No Frequency Musculoskeletal: No: neck pain, back pain Neurological: Weakness; No: Numbness, Change in speech, Confusion Objective-Cardiology Exam Last Set of Vital Signs Vital Signs 01/26/20 11:23 Temp 36.2 Pulse 53 Resp 20 B/P (MAP) 85/60 (68) Pulse Ox 98 O2 Delivery High Flow N/C O2 Flow Rate 3.00 Capillary Refill : Less Than 3 SecondsLess Than 3 Seconds I&O Intake and Output 01/26/20 00:00 Intake Total 1816 ml Output Total 6050 ml Balance -4234 ml Intake Oral 1696 ml IV Total 120 ml Output Urine Total 6050 ml # Bowel Movements 1 General: Alert, Oriented X3, Cooperative HEENT: Atraumatic, PERRLA Neck: Supple, No JVD, No Thyromegaly Lungs: Clear to Auscultation, Normal Air Movement Heart: Regular Rate, Normal S1, Normal S2, No Murmurs Abdomen: Normal Bowel Sounds, Soft, No Tenderness, No Hepatosplenomegaly, No Masses Extremities: No Clubbing, No Cyanosis, No Edema, Normal Pulses, No Tenderness/Swelling Skin: No Rashes, No Breakdown, No Significant Lesion Neuro: Normal Speech, Cranial Nerves 3-12 NL Psych/Mental Status: Mental Status NL, Mood NL Results Lab Laboratory Tests 01/26/20 05:00 A/P-Cardiology Admission Diagnosis Acute limb ischemia PAF Pneumonia Tobaccoism Assessment/Plan Acute limb ischemia due to thromboembolic occlusion of R distal SFA, and large thrombus in the R proximal SFA, treated with TNK and heparin and TUBE COREMAKER by Dr Watson with holiness of antegrade flow and with R blue-toe syndrome. Maintained on Xarelto and Plavix. PAF with RVR on 01/24/20, currently sinus rhythm. Continue on current medications and continue to monitor. Acute respiratory failure, pneumonia and lung mass, continues to improve. 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 Has been on disability Tobaccoism, stopped smoking in December 2019, advised to continue to refrain Anemia of undetermined etiology, managed by the Med Service Patient was seen and evaluated with Stacie, examination performed, management plan was discussed, agree with the current scribed note, I made few changes to the note using Italic font Patient is sitting at bedside, comfortable, denied any chest pain. No palpitation Mildly confused Generalized weakness Recovering slowly. Continue with supportive care Clinical Quality Measures DVT/VTE Risk/Contraindication: Risk Factor Score Per Nursin STACIE PATEL January 26, 2020 08:50 THERESA WATSON MD January 26, 2020 11:44
--- NOTE | 2020-01-26 11:04 | Physical Therapy Daily Note ---
PT Daily Note-Current Subjective Patient more alert, however, confused and agitated. Reluctantly agrees to PT. Requests to be left alone to watch TV and rest. Pain Numeric Pain Scale: 0-No Pain Location: No Pain Reported Mental Status Patient Orientation: Confused Attachments: Oxygen, Jackson Catheter Transfers SCALE: Activities may be completed with or without assistive devices. 0-Qrjikvmdoe-dndxsmh completes the activity by him/herself with no assistance from a helper. 5-Set-up or Clean-up Assistance-helper sets up or cleans up; patient completes activity. [place] assists only prior to or following the activity. 4-Supervision or Touching Assistance-helper provides verbal cues and/or t ouching/steadying and/or contact guard assistance as patient completes activity. Assistance may be provided throughout the activity or intermittently. 3-Partial/Moderate Assistance-helper does LESS THAN HALF the effort. [place] lifts, holds or supports trunk or limbs, but provides less than half the effort. 2-Substantial/Maximal Assistance-helper does MORE THAN HALF the effort. [place] lifts or holds trunk or limbs and provides more than half the effort. 8-Trfhmpjwz-kjmidl does ALL the effort. Patient does none of the effort to complete the activity. Or, the assistance of 2 or more helpers is required for the patient to complete the activity. If activity was not attempted, code reason: 7-Patient Refused. 9-Not Applicable-not attempted and the patient did not perform the activity before the current illness, exacerbation or injury. 10-Not Attempted due to Environmental Limitations-(lack of equipment, weather restraints, etc.). 88-Not Attempted due to Medical Conditions or Safety Concerns. Roll Left & Right (QC): 2 Lying to Sitting/Side of Bed(Q: 2 Sit to Stand (QC): 2 Toilet Transfer (QC): 2 Patient performed all mobility with max assist and encouragement to participate. Patient becomes highly agitated during treatment due to not wanting to participate. Weight Bearing Right Lower Extremity: Right Weight Bearing/Tolerated Left Lower Extremity: Left Weight Bearing/Tolerated Exercises Seated Therapy Exercises: Long arc quads Seated Reps: 15 (AAROM) Assessment During treatment, patient asked if it was still snowing. Patient becomes highly agitated with PT due to not wanting to participate with therapy. PT attempted to educate patient on importance of increasing activity to return to home, however, due to confusion and agitation, patient unable to comprehend. Patient incontinent BM during treatment and transferred to [facility] max assist with call light in hand and DRONE PILOT outside room due to patient demanding privacy. Patient is a very high fall risk due to impulsive behavior and diminished safety awareness. PT Short Term Goals Short Term Goals Time Frame: February 07, 2020 Roll Left & Right: 3 Sit to lyin Lying to sitting on side of be: 3 Sit to stand: 3 Chair/fwx-tm-rdfzr transfer: 3 Toilet transfer: 3 Walk 10 feet: 3 PT Senior Care Goals Software Client Architect Goals PT Software Client Architect Goals Time Frame: Feb 21, 2020 Roll Left & Right (QC): 5 Sit to Lying (QC): 5 Lying-Sitting on Side/Bed(QC): 5 Sit to Stand (QC): 5 Chair/Ibp-cn-Ovqmg Xfer(QC): 5 Toilet Transfer (QC): 5 Car Transfer (QC): 5 Does the Patient Walk: Yes Walk 10 feet (QC): 5 Walk 50ft with 2 Turns (QC): 5 Walk 150 ft (QC): 5 Walking 10ft on Uneven Surface: 5 1 Step (curb) (QC): 5 4 Steps (QC): 5 12 Steps (QC): 5 Picking up an Object (QC): 5 Does the Pt use WC or Scooter?: No Wheel 50 feet with 2 turns (QC: 9 Type: N/A Wheel 150 feet: 9 Type: N/A PT Plan Treatment/Plan Treatment Plan: Continue Plan of Care Treatment Plan: Bed Mobility, Education, Functional Activity Lorena, Functional Strength, Gait, Safety, Therapeutic Exercise, Transfers Treatment Duration: Feb 21, 2020 Frequency: 6 times per week Estimated Hrs Per Day: .25 hour per day Patient and/or Family Agrees t: Yes Time/GCodes Time In: 1031 Time Out: 1048 Total Billed Treatment Time: 17 Total Billed Treatment 1 visit FA 17 min IDRIS ONEIL PT January 26, 2020 11:04
[2020-01-26 11:23] VITALS: BP 85/60
--- NOTE | 2020-01-26 11:24 | Occupational Ther Daily Note ---
OT Current Status-Daily Note Subjective Pt alert, sitting EOB with nrsg. Pt stated that there had been wasps in his room and was getting up walking up and downstairs. Pt required mod encouragement to complete any bathing. Mental Status/Objective Patient Orientation: Person, Confused ADL-Treatment Pt stated that he wanted to take bath later, encouraged to cleanse self before donning clean shirt. Pt able to wash upper body after set up. Assist x2 to stand, cleanse buttocks and manipulate clothing. Pt able to doff shirt and don shirt by self after set up. Assist x2 for EOB to supine then to scoot up/over in bed. Pt was able to open soda can by self then lift to drink. After session, pt lying in bed with call light/phone in reach. All needs met in room. Nrsg in room. Therapy Code Descriptions/Definitions Functional [place] Measure: 0=Not Assessed/NA 4=Minimal Assistance 1=Total Assistance 5=Supervision or Setup 2=Maximal Assistance 6=Modified [place] 3=Moderate Assistance 7=Complete IndependenceSCALE: Activities may be completed with or without assistive devices. 3-Qwtjzcvpqq-latnqur completes the activity by him/herself with no assistance from a helper. 5-Set-up or Clean-up Assistance-helper sets up or cleans up; patient completes activity. [place] assists only prior to or following the activity. 4-Supervision or Touching Assistance-helper provides verbal cues and/or touching/steadying and/or contact guard assistance as patient completes activity. Assistance may be provided throughout the activity or intermittently. 3-Partial/Moderate Assistance-helper does LESS THAN HALF the effort. [place] lifts, holds or supports trunk or limbs, but provides less than half the effort. 2-Substantial/Maximal Assistance-helper does MORE THAN HALF the effort. [place] lifts or holds trunk or limbs and provides more than half the effort. 2-Rgeavlmyg-zsjquy does ALL the effort. Patient does none of the effort to complete the activity. Or, the assistance of 2 or more helpers is required for the patient to complete the activity. If activity was not attempted, code reason: 7-Patient Refused. 9-Not Applicable-not attempted and the patient did not perform the activity before the current illness, exacerbation or injury. 10-Not Attempted due to Environmental Limitations-(lack of equipment, weather restraints, etc.). 88-Not Attempted due to Medical Conditions or Safety Concerns. Upper Body Dressing (QC): 5 Lower Body Dressing (QC): 1 Toileting Hygiene (QC): 1 Toilet Transfer (QC): 2 OT Mcc Goals Mcc Goals Time Frame: February 13, 2020 Eating (QC): 6 Oral Hygiene (QC): 6 Toileting Hygiene (QC): 6 Shower/Bathe Self (QC): 4 Upper Body Dressing (QC): 5 Lower Body Dressing (QC): 4 On/Off Footwear (QC): 4 Additional Goals: 1-Demonstrate ADL Tasks, 2-Verbalize Understanding, 3- ImproveStrength/Lorena 1=Demonstrate adherence to instructed precautions during ADL tasks. 2=Patient will verbalize/demonstrate understanding of assistive devices/modifications for ADL. 3=Patient will improve strength/tolerance for activity to enable patient to perform ADL's. OT Education/Plan Problem List/Assessment Assessment: Decreased Activ Tolerance, Decreased UE Strength, Impaired Coordination, Impaired Funct Balance, Impaired Self-Care Skills, Restricted Funct UE ROM Discharge Recommendations Plan/Recommendations: Continue POC Treatment Plan/Plan of Care Patient would benefit from OT for education, treatment and training to promote independence in ADL's, mobility, safety and/or upper extremity function for ADL's. Plan of Care: ADL Retraining, Functional Mobility, UE Funct Exercise/Act Treatment Duration: February 13, 2020 Frequency: 5 times per week Estimated Hrs Per Day: .25 hour per day Rehab Potential: Guarded Time/GCodes Start Time: 11:00 Stop Time: 11:15 Total Time Billed (hr/min): 15 Billed Treatment Time 1 visit-ADL 1 (15 min) CANDI MITCHELL January 26, 2020 11:24
[2020-01-26 13:00] VITALS: BP 100/62
[2020-01-26] MEDS ORDERED: FLEET ENEMA ADULT 1 EA BTL ONE (14:26)
[2020-01-26] MEDS ORDERED: FLEET ENEMA ADULT 1 EA BTL PR ONE (14:30)
[2020-01-26] MEDS: oxyCODONE 5 MG/5 ML ORAL SOLN (roxiCODONE) 5 ML UDC PO PRN (14:37)
[2020-01-26] MEDS: ACETAMINOPHEN 325 MG TABLET PO PRN (15:10)
[2020-01-26 16:44] VITALS: BP 106/67
[2020-01-26] MEDS: RIVAROXABAN 20 MG TABLET (XARELTO) PO SCH (17:06)
[2020-01-26 20:29] VITALS: BP 109/68
[2020-01-26] MEDS: SENNA W/DOCUSATE (SENOKOT S) TABLET PO SCH (22:08)
[2020-01-26] MEDS: DOCUSATE SODIUM 100 MG (COLACE) CAP PO SCH (22:09)
[2020-01-26] MEDS: morphine INJ 4 MG/ML 1 ML (VIAL/SYRINGE) IVP PRN (22:10)
[2020-01-27 00:23] VITALS: BP 104/67
[2020-01-27] MEDS: RT-ALBUTEROL/IPRATROPIUM 3 ML (DUONEB) VIAL INH SCH ×6 (01:59→21:45)
[2020-01-27 04:30] VITALS: BP 115/72
[2020-01-27 05:26] LABS: BASOPHILS % (AUTO) 0 % (0-10); EOSINOPHILS # (AUTO) 0.1 10^3/uL (0.0-0.3); EOSINOPHILS % (AUTO) 1 % (0-10); HEMATOCRIT 26 % (40-54); HEMOGLOBIN 8.2 G/DL (13.3-17.7); LYMPHOCYTES # (AUTO) 1.2 X 10^3 (1.0-4.0); LYMPHOCYTES % (AUTO) 8 % (12-44); MEAN CORPUSCULAR HEMOGLOBIN 31 PG (25-34); MEAN CORPUSCULAR HGB CONC 32 G/DL (32-36); MEAN CORPUSCULAR VOLUME 99 FL (80-99); MEAN PLATELET VOLUME 9.3 FL (7.4-10.4); MONOCYTES # (AUTO) 1.5 X 10^3 (0.0-1.0); MONOCYTES % (AUTO) 9 % (0-12); NEUTROPHILS # (AUTO) 13.2 X 10^3 (1.8-7.8); NEUTROPHILS % (AUTO) 83 % (42-75); PLATELET COUNT 574 10^3/uL (130-400); RED CELL DISTRIBUTION WIDTH 17.8 % (10.0-14.5)
[2020-01-27 05:35] LABS: CHLORIDE 107 MMOL/L (98-107); POTASSIUM 4.1 MMOL/L (3.6-5.0); SODIUM 139 MMOL/L (135-145)
[2020-01-27 05:36] LABS: CALCIUM 7.6 MG/DL (8.5-10.1)
[2020-01-27 05:37] LABS: GLUCOSE 91 MG/DL (70-105)
[2020-01-27 05:39] LABS: CARBON DIOXIDE 26 MMOL/L (21-32)
[2020-01-27 05:41] LABS: CREATININE SERUM 0.47 MG/DL (0.60-1.30); GFR ESTIMATED > 60; PHOSPHORUS 2.4 MG/DL (2.3-4.7)
[2020-01-27 05:42] LABS: BUN/CREATININE RATIO 30
[2020-01-27 05:43] LABS: MAGNESIUM 2.2 MG/DL (1.6-2.4)
[2020-01-27 06:03] LABS: ANISOCYTOSIS SLIGHT; ATYPICAL LYMPHOCYTES 6 %; BAND NEUTROPHILS 1 %; EOSINOPHILS % (MANUAL) 1 %; HYPOCHROMASIA MODERATE; LYMPHOCYTES % (MANUAL) 5 %; MONOCYTES % (MANUAL) 6 %; NEUTROPHILS % (MANUAL) 79 %; REACTIVE LYMPHOCYTES 2 %
[2020-01-27 06:04] LABS: SCHISTOCYTES SLIGHT; TARGET CELLS SLIGHT
[2020-01-27] MEDS: predniSONE 20 MG TAB PO SCH (06:15)
[2020-01-27] MEDS: FERROUS SULF 325 MG (IRON) TAB PO SCH ×2 (06:15→16:33)
[2020-01-27] MEDS: MULTIVIT W/MINERALS TAB (THERAGRAN M) PO SCH (06:15)
--- NOTE | 2020-01-27 06:43 | Pulmonary Progress Note ---
Subjective Time Seen by a Provider: 06:38 Subjective/Events-last exam Pt has worsening leukocytosis. Sepsis Event Evaluation Height, Weight, BMI Height: '" Weight: lbs. oz. kg; 16.01 BMI Method: Exam Exam Vital Signs Date Time Temp Pulse Resp B/P (MAP) Pulse Ox O2 Delivery O2 Flow Rate FiO2 01/27/20 04:30 36.8 78 20 115/72 (86) 99 Nasal Cannula 3.00 01/27/20 01:59 95 High Flow N/C 3.00 01/27/20 01:00 74 01/27/20 00:23 36.7 70 22 104/67 (79) 99 Nasal Cannula 3.00 01/26/20 21:00 High Flow N/C 3.00 01/26/20 20:29 38.1 97 14 109/68 (82) 97 Nasal Cannula 3.00 01/26/20 19:00 97 01/26/20 18:09 96 High Flow N/C 3.00 01/26/20 16:44 37.8 90 15 106/67 (80) 97 Nasal Cannula 3.00 01/26/20 15:01 94 High Flow N/C 3.00 01/26/20 13:00 100/62 (75) 01/26/20 12:10 95 01/26/20 11:23 36.2 53 20 85/60 (68) 98 High Flow N/C 3.00 01/26/20 10:30 95 High Flow N/C 3.00 01/26/20 09:00 High Flow N/C 3.00 01/26/20 07:09 37.6 81 18 101/66 (78) 96 High Flow N/C 3.00 01/26/20 07:00 95 I & O 01/27/20 07:00 Intake Total 2710 ml Output Total 3325 ml Balance -615 ml Height & Weight Height: '" Weight: lbs. oz. kg; 16.01 BMI Method: General Appearance: Anxious, Chronically ill Respiratory: Lungs Clear, No Respiratory Distress Cardiovascular: Regular Rate, Rhythm, No Murmur Capillary Refill: Less Than 3 Seconds Extremity: Swelling (1+ bilaterally) Neurologic/Psychiatric: Other (oriented to person only, confused to place and situation) Results Lab Laboratory Tests 01/26/20 05:00 01/27/20 05:10 Assessment/Plan Assessment/Plan Acute on chronic respiratory failure -doing well off vent PNA -- -Worsening leukocytosis -check PCT -Tm 38.1 -Start Merrem and Vanco for now. 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
[2020-01-27] MEDS ORDERED: PHARMACY TO DOSE IV SCH (06:45)
--- NOTE | 2020-01-27 06:52 | NUR ---
PT HAS REFUSED HIS BREATHING TREATMENT AT THIS TIME. PT IS RESTING COMFORTABLY AND IN NO RESPIRATORY DISTRESS. RT CHANGED PT FROM HFNC TO REGULAR NASAL CANNULA WITH A BUBBLER. Addendum: 01/27/20 at 0654 by CAITIE CMAARGO RT Amended: Links added.
[2020-01-27] MEDS: MEROPENEM 500 MG in WATER (STERILE) FOR INJECTION 10 ML IV SCH ×3 (07:07→18:18)
--- NOTE | 2020-01-27 07:12 | NUR ---
PHARMACY TO DOSE VANCOMYCIN (SCr 0.47, CrCl 157) 20MG/KG X 64 KG ~ 1250MG LOADING DOSE; 15MG/KG X 64 KG ~ 1G Q12H MAINTENANCE DOSE; VANCOMYCIN TROUGH DUE 01/27 @ 1830, IF TROUGH >20, HOLD 01/27 1930 DOSE AND NOTIFY PHARMACY FOR ADJUSTMENTS
--- NOTE | 2020-01-27 07:18 | Diagnostic Imaging Report ---
Indication: Shortness of air. Compared: 01/24/2020 Findings: Underlying COPD, a chronic finding redemonstrated. There are bilateral infiltrates greatest in the left upper and right lower lobes unchanged. Heart size stable. Central venous catheter at the lower SVC. Impression: Emphysematous hyperexpanded lungs with bilateral pneumonia, unchanged from prior. Dictated by: Dictated on workstation # [id number]
[2020-01-27] MEDS ORDERED: VANCOMYCIN 1250 MG/NS 250 ML IVPB IV NR ×2 (07:30)
[2020-01-27 08:00] VITALS: BP 107/60
[2020-01-27] MEDS: PANTOPRAZOLE 40 MG (PROTONIX) VIAL IV SCH (08:48)
[2020-01-27] MEDS: risperiDONE 0.25 MG (RisperDAL) TAB PO SCH ×2 (08:49→20:56)
[2020-01-27] MEDS: DOCUSATE SODIUM 100 MG (COLACE) CAP PO SCH ×2 (08:49→20:55)
[2020-01-27] MEDS: meTOprolol TARTRATE 25 MG (LOPRESSOR) TABLET PO SCH ×2 (08:49→21:00)
[2020-01-27] MEDS: CLOPIDOGREL 75 MG (PLAVIX) TABLET PO SCH (08:49)
[2020-01-27] MEDS: SENNA W/DOCUSATE (SENOKOT S) TABLET PO SCH ×2 (08:49→20:56)
[2020-01-27] MEDS: guaiFENesin (MUCINEX) 600 MG TAB PO SCH ×2 (08:49→20:56)
[2020-01-27] MEDS: FOLIC ACID 1 MG TAB PO SCH (08:49)
[2020-01-27] MEDS: DIGOXIN 0.25 MG (LANOXIN) TAB PO SCH (08:49)
[2020-01-27] MEDS: PATCH REMOVAL TP SCH (08:50)
[2020-01-27] MEDS: NICOTINE 14 MG (NICODERM) PATCH TD SCH (08:50)
--- NOTE | 2020-01-27 09:22 | Cardiology Progress Note ---
Subjective Date Seen by Provider: January 27, 2020 Time Seen by Provider: 08:40 Subjective/Events-last exam Patient sitting up in bed, no new complaints. Review of Systems General: No Chills, No Night Sweats; Fatigue; No Malaise, No Appetite, No Other HEENT: No Head Aches, No Visual Changes, No Eye Pain, No Ear Pain, No Dysphasia, No Sinus Congestion, No Post Nasal Drip, No Sore Throat, No Other Pulmonary: Dyspnea; No Cough, No Pleuritic Chest Pain, No Other Cardiovascular: No: Chest Pain, Palpitations, Orthopnea, Paroxysmal Noc. Dyspnea, Edema, Lt Headedness, Other Objective-Cardiology Exam Last Set of Vital Signs Vital Signs 01/27/20 01/27/20 08:00 08:06 Temp 36.6 Pulse 88 Resp 16 B/P (MAP) 107/60 (76) Pulse Ox 99 O2 Delivery High Flow N/C O2 Flow Rate 3.00 Capillary Refill : Less Than 3 SecondsLess Than 3 Seconds I&O Intake and Output 01/27/20 00:00 Intake Total 3290 ml Output Total 3575 ml Balance -285 ml Intake Oral 3290 ml Output Urine Total 3575 ml # Bowel Movements 2 General: Alert, Oriented X3, Cooperative HEENT: Atraumatic, PERRLA Neck: Supple, No JVD, No Thyromegaly Lungs: Other (bilat rhonchi) Heart: Regular Rate, Normal S1, Normal S2, No Murmurs Abdomen: Normal Bowel Sounds, Soft, No Tenderness, No Hepatosplenomegaly, No Masses Extremities: No Clubbing, No Cyanosis, No Edema, Normal Pulses, No Tenderness/Swelling Skin: No Rashes, No Breakdown, No Significant Lesion Neuro: Normal Speech, Cranial Nerves 3-12 NL Psych/Mental Status: Mental Status NL, Mood NL Results Lab Laboratory Tests 01/27/20 05:10 A/P-Cardiology Admission Diagnosis Acute limb ischemia PAF Pneumonia Tobaccoism Assessment/Plan Acute limb ischemia due to thromboembolic occlusion of R distal SFA, and large thrombus in the R proximal SFA, treated with TNK and heparin and [employer] by Dr Watson with latter day of antegrade flow and with R blue-toe syndrome. Maintained on Xarelto and Plavix. PAF with RVR on 01/24/20, currently sinus rhythm. Continue on current medications and continue to monitor. Acute respiratory failure, pneumonia and lung mass, continues to improve. 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 Has been on disability Tobaccoism, stopped smoking in December 2019, advised to continue to refrain Anemia of undetermined etiology, managed by the Med Service Patient was seen and evaluated with Stacie, examination performed, management plan was discussed, agree with the current scribed note, I made few changes to the note using Italic font Clinically improving, still having generalized weakness and loss of energy, mild increase in leukocytosis today, restarted on empiric antibiotic Continue to monitor and continue with physical therapy Clinical Quality Measures DVT/VTE Risk/Contraindication: Risk Factor Score Per Nursin STACIE PATEL January 27, 2020 09:22 THERESA WATSON MD January 27, 2020 11:54
--- NOTE | 2020-01-27 09:54 | NUR ---
PT IS WANTING TO SLEEPING AND DOES NOT WANT TO TAKE BREATHING TREATMENT AT THIS TIME. DECREASED PT TO 2LNC. Addendum: 01/27/20 at 0956 by CAITIE CAMARGO RT Amended: Links added.
--- NOTE | 2020-01-27 10:49 | Occupational Ther Daily Note ---
OT Current Status-Daily Note Subjective Pt lying in bed, in and out of alertness. Nrsg in room also to assist with bathing and toileting. No c/o pain at this time. Mental Status/Objective Patient Orientation: Person, Confused Attachments: Jackson Catheter, IV, Oxygen ADL-Treatment Pt unable to follow directions to bathe self when handed washcloth. Total assist for bathing in supine. Assist x2 for supine<-->EOB. Assist x2 (mod A)to stand using FWW. Max A for SPT using FWW. Assist to manipulate clothing for lower body dressing and toileting. Assist x2 for hygiene after toileting. After session, pt lying in bed with call light/phone in reach. Safety measures in place. All needs met in room. Therapy Code Descriptions/Definitions Functional [place] Measure: 0=Not Assessed/NA 4=Minimal Assistance 1=Total Assistance 5=Supervision or Setup 2=Maximal Assistance 6=Modified [place] 3=Moderate Assistance 7=Complete IndependenceSCALE: Activities may be completed with or without assistive devices. 9-Wjupknsetx-oadltum completes the activity by him/herself with no assistance from a helper. 5-Set-up or Clean-up Assistance-helper sets up or cleans up; patient completes activity. [place] assists only prior to or following the activity. 4-Supervision or Touching Assistance-helper provides verbal cues and/or touching/steadying and/or contact guard assistance as patient completes activity. Assistance may be provided throughout the activity or intermittently. 3-Partial/Moderate Assistance-helper does LESS THAN HALF the effort. [place] lifts, holds or supports trunk or limbs, but provides less than half the effort. 2-Substantial/Maximal Assistance-helper does MORE THAN HALF the effort. [place] lifts or holds trunk or limbs and provides more than half the effort. 5-Tlmroyfkk-gxexsp does ALL the effort. Patient does none of the effort to complete the activity. Or, the assistance of 2 or more helpers is required for the patient to complete the activity. If activity was not attempted, code reason: 7-Patient Refused. 9-Not Applicable-not attempted and the patient did not perform the activity before the current illness, exacerbation or injury. 10-Not Attempted due to Environmental Limitations-(lack of equipment, weather restraints, etc.). 88-Not Attempted due to Medical Conditions or Safety Concerns. Shower/Bathe Self (QC): 1 Lower Body Dressing (QC): 1 On/Off Footwear: 2 Toileting Hygiene (QC): 1 Toilet Transfer (QC): 2 OT Stock Chaser Goals Senior Living Goals Time Frame: February 13, 2020 Eating (QC): 6 Oral Hygiene (QC): 6 Toileting Hygiene (QC): 6 Shower/Bathe Self (QC): 4 Upper Body Dressing (QC): 5 Lower Body Dressing (QC): 4 On/Off Footwear (QC): 4 Additional Goals: 1-Demonstrate ADL Tasks, 2-Verbalize Understanding, 3-ImproveStrength/[place]ore[place] 1=Demonstrate adherence to instructed precautions during ADL tasks. 2=Patient will verbalize/demonstrate understanding of assistive devices/modifications for ADL. 3=Patient will improve strength/tolerance for activity to enable patient to perform ADL's. OT Education/Plan Problem List/Assessment Assessment: Decreased Activ Tolerance, Decreased Safety Aware, Decreased UE Strength, Impaired Bed Mobility, Impaired Cognition, Impaired Coordination, Impaired Funct Balance, Impaired Self-Care Skills, Restricted Funct UE ROM Discharge Recommendations Plan/Recommendations: Continue POC Treatment Plan/Plan of Care Patient would benefit from OT for education, treatment and training to promote independence in ADL's, mobility, safety and/or upper extremity function for ADL's. Plan of Care: ADL Retraining, Functional Mobility, UE Funct Exercise/Act Treatment Duration: February 13, 2020 Frequency: 5 times per week Estimated Hrs Per Day: .25 hour per day Rehab Potential: Guarded Time/GCodes Start Time: 10:15 Stop Time: 10:45 Total Time Billed (hr/min): 30 Billed Treatment Time 1 visit-ADL 2 (30 min) CANDI MITCHELL January 27, 2020 10:49
--- NOTE | 2020-01-27 11:28 | Physical Therapy Daily Note ---
PT Daily Note-Current Subjective Patient is very lethargic with minimal participation. Mental Status Patient Orientation: Listless Attachments: Oxygen, Jackson Catheter Transfers SCALE: Activities may be completed with or without assistive devices. 4-Ferbobodpt-bpfxoro completes the activity by him/herself with no assistance from a helper. 5-Set-up or Clean-up Assistance-helper sets up or cleans up; patient completes activity. [place] assists only prior to or following the activity. 4-Supervision or Touching Assistance-helper provides verbal cues and/or touching/steadying and/or contact guard assistance as patient completes activity. Assistance may be provided throughout the activity or intermittently. 3-Partial/Moderate Assistance-helper does LESS THAN HALF the effort. [place] lifts, holds or supports trunk or limbs, but provides less than half the effort. 2-Substantial/Maximal Assistance-helper does MORE THAN HALF the effort. [place] lifts or holds trunk or limbs and provides more than half the effort. 3-Eocuxwuxf-gmptfe does ALL the effort. Patient does none of the effort to complete the activity. Or, the assistance of 2 or more helpers is required for the patient to complete the activity. If activity was not attempted, code reason: 7-Patient Refused. 9-Not Applicable-not attempted and the patient did not perform the activity before the current illness, exacerbation or injury. 10-Not Attempted due to Environmental Limitations-(lack of equipment, weather restraints, etc.). 88-Not Attempted due to Medical Conditions or Safety Concerns. Roll Left & Right (QC): 1 Sit to Lying (QC): 1 Lying to Sitting/Side of Bed(Q: 1 Sit to Stand (QC): 1 Chair/Ddn-dv-Fmvdp Xfer(QC): 1 patient is very resistive with all mobility and required dependent assist to complete tasks Weight Bearing Right Lower Extremity: Right Weight Bearing/Tolerated Left Lower Extremity: Left Weight Bearing/Tolerated Exercises Supine Ex: Ankle pumps, Heel Slides, Straight leg raise, Hip abd/add Supine Reps: 15 (PROM bilaterally) Seated Therapy Exercises: Long arc quads Seated Reps: 15 (PROM) Assessment Patient is very lethargic and listless. He is up in recliner with chair alarm activated and bilateral LE elevated. Nursing is aware. Patient participates minimally with therapy. PT Short Term Goals Short Term Goals Time Frame: February 07, 2020 Roll Left & Right: 3 Sit to lyin Lying to sitting on side of be: 3 Sit to stand: 3 Chair/vpb-yq-anhws transfer: 3 Toilet transfer: 3 Walk 10 feet: 3 PT Intermediate Goals Physician General Practice Goals PT Intermediate Goals Time Frame: Feb 21, 2020 Roll Left & Right (QC): 5 Sit to Lying (QC): 5 Lying-Sitting on Side/Bed(QC): 5 Sit to Stand (QC): 5 Chair/Rwd-oy-Dlcrq Xfer(QC): 5 Toilet Transfer (QC): 5 Car Transfer (QC): 5 Does the Patient Walk: Yes Walk 10 feet (QC): 5 Walk 50ft with 2 Turns (QC): 5 Walk 150 ft (QC): 5 Walking 10ft on Uneven Surface: 5 1 Step (curb) (QC): 5 4 Steps (QC): 5 12 Steps (QC): 5 Picking up an Object (QC): 5 Does the Pt use WC or Scooter?: No Wheel 50 feet with 2 turns (QC: 9 Type: N/A Wheel 150 feet: 9 Type: N/A PT Plan Treatment/Plan Treatment Plan: Continue Plan of Care Treatment Plan: Bed Mobility, Education, Functional Activity Lorena, Functional Strength, Gait, Safety, Therapeutic Exercise, Transfers Treatment Duration: Feb 21, 2020 Frequency: 6 times per week Estimated Hrs Per Day: .25 hour per day Patient and/or Family Agrees t: Yes Time/GCodes Time In: 1046 Time Out: 1103 Total Billed Treatment Time: 17 Total Billed Treatment 1 visit FA 17 min IDRIS ONEIL PT January 27, 2020 11:28
[2020-01-27 12:00] VITALS: BP 99/73
--- NOTE | 2020-01-27 14:50 | NUR ---
Pastoral care visit.
[2020-01-27 16:00] VITALS: BP 101/63
[2020-01-27] MEDS: RIVAROXABAN 20 MG TABLET (XARELTO) PO SCH (16:33)
--- NOTE | 2020-01-27 18:09 | NUR ---
PT HAS BEEN MORE ORIENTED SINCE 1399 TODAY PRIOR HE WAS VERY SLEEPY AND MORE FORGETFUL AND CONFUSED -- BUT SINCE 1399 HE WAS LESS FORGETFUL AND CONFUSED -- MORE COOPERATIVE WITH STAFF --
[2020-01-27] MEDS: VANCOMYCIN 1 GM/NS 250 ML IVPB IV SCH ×2 (18:51)
[2020-01-27 20:00] VITALS: BP 98/58
[2020-01-28] VITALS (7 sets, daily range): BP systolic 95–141; BP diastolic 61–78
[2020-01-28] MEDS: MEROPENEM 500 MG in WATER (STERILE) FOR INJECTION 10 ML IV SCH ×4 (00:25→18:25)
[2020-01-28] MEDS: RT-ALBUTEROL/IPRATROPIUM 3 ML (DUONEB) VIAL INH SCH ×6 (02:20→21:45)
[2020-01-28 05:43] LABS: BASOPHILS % (AUTO) 0 % (0-10); EOSINOPHILS # (AUTO) 0.1 10^3/uL (0.0-0.3); EOSINOPHILS % (AUTO) 1 % (0-10); HEMATOCRIT 25 % (40-54); HEMOGLOBIN 7.9 G/DL (13.3-17.7); LYMPHOCYTES # (AUTO) 1.3 X 10^3 (1.0-4.0); LYMPHOCYTES % (AUTO) 9 % (12-44); MEAN CORPUSCULAR HEMOGLOBIN 32 PG (25-34); MEAN CORPUSCULAR HGB CONC 32 G/DL (32-36); MEAN CORPUSCULAR VOLUME 100 FL (80-99); MEAN PLATELET VOLUME 9.4 FL (7.4-10.4); MONOCYTES # (AUTO) 1.4 X 10^3 (0.0-1.0); MONOCYTES % (AUTO) 10 % (0-12); NEUTROPHILS # (AUTO) 11.1 X 10^3 (1.8-7.8); NEUTROPHILS % (AUTO) 80 % (42-75); PLATELET COUNT 519 10^3/uL (130-400); RED CELL DISTRIBUTION WIDTH 18.2 % (10.0-14.5); WHITE BLOOD COUNT 13.8 10^3/uL (4.3-11.0)
[2020-01-28 06:00] LABS: BUN/CREATININE RATIO 37; CALCIUM 7.5 MG/DL (8.5-10.1); CARBON DIOXIDE 26 MMOL/L (21-32); CHLORIDE 106 MMOL/L (98-107); CREATININE SERUM 0.46 MG/DL (0.60-1.30); GFR ESTIMATED > 60; GLUCOSE 107 MG/DL (70-105); PHOSPHORUS 2.9 MG/DL (2.3-4.7); POTASSIUM 3.9 MMOL/L (3.6-5.0); SODIUM 140 MMOL/L (135-145)
[2020-01-28] MEDS: predniSONE 20 MG TAB PO SCH (06:28)
[2020-01-28] MEDS: MULTIVIT W/MINERALS TAB (THERAGRAN M) PO SCH (06:28)
[2020-01-28] MEDS: FERROUS SULF 325 MG (IRON) TAB PO SCH ×2 (06:28→17:49)
[2020-01-28] MEDS: VANCOMYCIN 1 GM/NS 250 ML IVPB IV SCH ×2 (06:29)
[2020-01-28] MEDS: guaiFENesin (MUCINEX) 600 MG TAB PO SCH ×2 (09:02→21:13)
[2020-01-28] MEDS: DIGOXIN 0.25 MG (LANOXIN) TAB PO SCH (09:02)
[2020-01-28] MEDS: CLOPIDOGREL 75 MG (PLAVIX) TABLET PO SCH (09:02)
[2020-01-28] MEDS: PANTOPRAZOLE 40 MG (PROTONIX) VIAL IV SCH (09:02)
[2020-01-28] MEDS: risperiDONE 0.25 MG (RisperDAL) TAB PO SCH ×2 (09:02→21:12)
[2020-01-28] MEDS: FOLIC ACID 1 MG TAB PO SCH (09:02)
[2020-01-28] MEDS: meTOprolol TARTRATE 25 MG (LOPRESSOR) TABLET PO SCH ×2 (09:02→21:12)
[2020-01-28] MEDS: SENNA W/DOCUSATE (SENOKOT S) TABLET PO SCH ×2 (09:03→21:11)
[2020-01-28] MEDS: NICOTINE 14 MG (NICODERM) PATCH TD SCH (09:03)
[2020-01-28] MEDS: PATCH REMOVAL TP SCH (09:03)
[2020-01-28] MEDS: DOCUSATE SODIUM 100 MG (COLACE) CAP PO SCH ×2 (09:03→21:11)
--- NOTE | 2020-01-28 09:04 | Cardiology Progress Note ---
Subjective Date Seen by Provider: January 28, 2020 Time Seen by Provider: 08:50 Subjective/Events-last exam Patient is in bed, no new complaints. Reports productive cough, denies any dyspnea. Review of Systems General: No Chills, No Night Sweats, No Fatigue, No Malaise, No Appetite, No Other HEENT: No Head Aches, No Visual Changes, No Eye Pain, No Ear Pain, No Dysphasia , No Sinus Congestion, No Post Nasal Drip, No Sore Throat, No Other Pulmonary: No Dyspnea, No Cough, No Pleuritic Chest Pain, No Other Cardiovascular: No: Chest Pain, Palpitations, Orthopnea, Paroxysmal Noc. Dyspnea, Edema, Lt Headedness, Other Objective-Cardiology Exam Last Set of Vital Signs Vital Signs 01/28/20 15:24 Temp 37.4 Pulse 94 Resp 18 B/P (MAP) 95/64 (74) Pulse Ox 95 O2 Delivery Nasal Cannula O2 Flow Rate 1.00 Capillary Refill : Less Than 3 SecondsLess Than 3 Seconds I&O Intake and Output 01/28/20 00:00 Intake Total 2700 ml Output Total 3480 ml Balance -780 ml Intake Oral 2180 ml IV Total 520 ml Output Urine Total 3480 ml # Bowel Movements 8 General: Alert, Oriented X3, Cooperative HEENT: Atraumatic, PERRLA Neck: Supple, No JVD, No Thyromegaly Lungs: Other (bilat rhonchi) Heart: Regular Rate, Normal S1, Normal S2, No Murmurs Abdomen: Normal Bowel Sounds, Soft, No Tenderness, No Hepatosplenomegaly, No Masses Extremities: No Clubbing, No Cyanosis, No Edema, Normal Pulses, No Tenderness/Swelling Skin: No Rashes, No Breakdown, No Significant Lesion Neuro: Normal Speech, Cranial Nerves 3-12 NL Psych/Mental Status: Mental Status NL, Mood NL Results Lab Laboratory Tests 01/28/20 05:30 A/P-Cardiology Admission Diagnosis Acute limb ischemia PAF Pneumonia Tobaccoism Assessment/Plan Acute limb ischemia due to thromboembolic occlusion of R distal SFA, and large thrombus in the R proximal SFA, treated with TNK and heparin 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 Maintained on Xarelto and Plavix. PAF with RVR on 01/24/20, currently sinus rhythm. Continue on current medications and continue to monitor. Acute respiratory failure, pneumonia and lung mass, continues to improve. 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 Has be en on disability Tobaccoism, stopped smoking in December 2019, advised to continue to refrain Anemia of undetermined etiology, managed by the Med Service Patient was seen and evaluated with Stacie, examination performed, management plan was discussed, agree with the current scribed note, I made few changes to the note using Italic font Patient is laying down in bed, feeling better, reporting improvement in his symptoms. No chest pain was reported. Legs pain is better Clinical Quality Measures DVT/VTE Risk/Contraindication: Risk Factor Score Per Nursin STACIE PATEL January 28, 2020 9:04 am THERESA WATSON MD January 28, 2020 4:49 pm
--- NOTE | 2020-01-28 10:21 | Physical Therapy Daily Note ---
PT Daily Note-Current Subjective States that he will do bed exercises. Transfers SCALE: Activities may be completed with or without assistive devices. 5-Qxxscabzfg-xiragtj completes the activity by him/herself with no assistance from a helper. 5-Set-up or Clean-up Assistance-helper sets up or cleans up; patient completes activity. [place] assists only prior to or following the activity. 4-Supervision or Touching Assistance-helper provides verbal cues and/or touching/steadying and/or contact guard assistance as patient completes activity. Assistance may be provided throughout the activity or intermittently. 3-Partial/Moderate Assistance-helper does LESS THAN HALF the effort. [place] lifts, holds or supports trunk or limbs, but provides less than half the effort. 2-Substantial/Maximal Assistance-helper does MORE THAN HALF the effort. [place] lifts or holds trunk or limbs and provides more than half the effort. 4-Dcebkhcti-nkivzw does ALL the effort. Patient does none of the effort to complete the activity. Or, the assistance of 2 or more helpers is required for the patient to complete the activity. If activity was not attempted, code reason: 7-Patient Refused. 9-Not Applicable-not attempted and the patient did not perform the activity before the current illness, exacerbation or injury. 10-Not Attempted due to Environmental Limitations-(lack of equipment, weather restraints, etc.). 88-Not Attempted due to Medical Conditions or Safety Concerns. Weight Bearing Right Lower Extremity: Right Weight Bearing/Tolerated Left Lower Extremity: Left Weight Bearing/Tolerated Exercises Supine Ex: LE Protocol Supine Reps: 20 Assessment Current Status: Fair Progress Patient had no complaints with exercises. PT Short Term Goals Short Term Goals Time Frame: February 07, 2020 Roll Left & Right: 3 Sit to lyin Lying to sitting on side of be: 3 Sit to stand: 3 Chair/fna-fe-kvoss transfer: 3 Toilet transfer: 3 Walk 10 feet: 3 PT Patient Services Clerk Goals Chcf Goals PT Patient Services Clerk Goals Time Frame: Feb 21, 2020 Roll Left & Right (QC): 5 Sit to Lying (QC): 5 Lying-Sitting on Side/Bed(QC): 5 Sit to Stand (QC): 5 Chair/Rjz-hx-Engbv Xfer(QC): 5 Toilet Transfer (QC): 5 Car Transfer (QC): 5 Does the Patient Walk: Yes Walk 10 feet (QC): 5 Walk 50ft with 2 Turns (QC): 5 Walk 150 ft (QC): 5 Walking 10ft on Uneven Surface: 5 1 Step (curb) (QC): 5 4 Steps (QC): 5 12 Steps (QC): 5 Picking up an Object (QC): 5 Does the Pt use WC or Scooter?: No Wheel 50 feet with 2 turns (QC: 9 Type: N/A Wheel 150 feet: 9 Type: N/A PT Plan Treatment/Plan Treatment Plan: Continue Plan of Care Treatment Plan: Bed Mobility, Education, Functional Activity Lorena, Functional Strength, Gait, Safety, Therapeutic Exercise, Transfers Treatment Duration: Feb 21, 2020 Frequency: 6 times per week Estimated Hrs Per Day: .25 hour per day Patient and/or Family Agrees t: Yes Time/GCodes Time In: 0955 Time Out: 1010 Total Billed Treatment Time: 15 Total Billed Treatment 1, EX x 15 LYDIA ACOSTA PT January 28, 2020 10:20
--- NOTE | 2020-01-28 11:52 | Progress Note - Hospitalist ---
Subjective HPI/CC On Admission Date Seen by Provider: January 28, 2020 Time Seen by Provider: 09:35 Subjective/Events-last exam He has no complaints or concerns. He is sitting in bed awake and alert. He denies any fevers or chills. He denies any chest pain or shortness of breath. He denies any abdominal pain, nausea, vomiting. He has been working with physical therapy. Objective Exam Vital Signs Vital Signs Date Time Temp Pulse Resp B/P (MAP) Pulse Ox O2 Delivery O2 Flow Rate FiO2 01/28/20 08:12 High Flow N/C 2.00 01/28/20 08:00 36.6 102 18 102/69 (80) 94 Capillary Refill : Less Than 3 SecondsLess Than 3 Seconds General Appearance: No Apparent Distress, Chronically ill, Thin Neck: Normal Inspection, Supple Respiratory: Lungs Clear, Normal Breath Sounds, No Respiratory Distress Cardiovascular: Regular Rate, Rhythm, No Edema, No Murmur Gastrointestinal: Normal Bowel Sounds, Non Tender, Soft Extremity: Normal Inspection, Non Tender, No Pedal Edema Neurologic/Psychiatric: Alert, Oriented x3, No Motor/Sensory Deficits, Normal Mood/Affect Skin: Normal Color, Warm/Dry Results/Procedures Lab Laboratory Tests 01/28/20 05:30 Patient resulted labs reviewed. Imaging: Reviewed Imaging Report Assessment/Plan Assessment and Plan Assess & Plan/Chief Complaint Pneumonia Acute respiratory failure with hypoxia- resolved Possible left upper lobe mass Likely COPD Tobacco abuse intubated this admission, extubated 01/19 Remains on nasal cannula Pulmonology consulted, appreciate assistance Procalcitonin normal Remains on meropenem, prednisone Needs repeat CT scan in about a month to evaluate possible left upper lobe mass Atrial fibrillation with rapid ventricular response Acute occlusion of artery of right lower extremity due to thromboembolism Cardiology consulted, appreciate assistance Underwent emergent angiogram with thrombolytics and balloon angioplasty 01/12 Continue Plavix and Xarelto Iron deficiency anemia Anemia of chronic disease Folic acid deficiency Hemoglobin stable Iron studies consistent with both iron deficiency and anemia of chronic disease Folic acid level low Continue folic acid and iron supplementation Fecal occult blood positive Will need a colonoscopy at some point, likely outpatient due to respiratory sta tus Severe protein calorie malnutrition Dietary consulted, continue supplements Debility PT/OT Acute rehabilitation evaluation DVT prophylaxis: Already receiving therapeutic anticoagulation ICU delirium, resolved Endotracheally intubated, resolved Diagnosis/Problems Diagnosis/Problems (1) Debility Status: Acute (2) Pneumonia Status: Acute (3) Lung mass Status: Acute (4) Tobacco abuse Status: Chronic (5) Acute respiratory failure with hypoxia Status: Acute (6) Acute occlusion of artery of lower extremity due to thromboembolism Status: Acute (7) Atrial fibrillation with rapid ventricular response Status: Acute (8) Anemia of chronic disease Status: Chronic (9) Folic acid deficiency Status: Chronic (10) Iron deficiency anemia Status: Chronic (11) Severe protein-calorie malnutrition Status: Acute Clinical Quality Measures DVT/VTE Risk/Contraindication: Risk Factor Score Per Nursin CLAU DUONG MD January 28, 2020 11:52
[2020-01-28] MEDS ORDERED: NS IV 500 ML 500 ML IV SCH (11:54)
[2020-01-28] MEDS ORDERED: EPINEPHrine INJECTION 1 MG/ML AMP IM PRN (12:00)
[2020-01-28] MEDS ORDERED: diphenhydrAMINE 50 MG/ML INJ (BENADRYL) IV PRN (12:00)
[2020-01-28] MEDS ORDERED: RT-ALBUTEROL SULF 2.5 MG/3 ML PRE-MIX VIAL IH PRN (12:00)
[2020-01-28] MEDS ORDERED: IRON DEXTRAN INJECTION 25 MG in NS (IVPB) 5.75 ML IV ONE (12:00)
[2020-01-28] MEDS ORDERED: HYDROCORTISONE 100 MG/2 ML (Solu-CORTEF) VIAL IV PRN (12:00)
[2020-01-28] MEDS ORDERED: IRON DEXTRAN INJECTION 1,000 MG in NS (IVPB) 250 ML IV ONE (12:00)
--- NOTE | 2020-01-28 14:21 | Occupational Ther Daily Note ---
OT Current Status-Daily Note Subjective Pt alert, lying in bed. Pt agrees to therapy. No c/o pain at this time. Mental Status/Objective Patient Orientation: Person, Place, Time, Situation Attachments: Jackson Catheter, IV, Oxygen, Telemetry ADL-Treatment Therapy Code Descriptions/Definitions Functional [place] Measure: 0=Not Assessed/NA 4=Minimal Assistance 1=Total Assistance 5=Supervision or Setup 2=Maximal Assistance 6=Modified [place] 3=Moderate Assistance 7=Complete IndependenceSCALE: Activities may be completed with or without assistive devices. 8-Hotrebunxk-ngsuevf completes the activity by him/herself with no assistance from a helper. 5-Set-up or Clean-up Assistance-helper sets up or cleans up; patient completes activity. [place] assists only prior to or following the activity. 4-Supervision or Touching Assistance-helper provides verbal cues and/or touching/steadying and/or contact guard assistance as patient completes activity. Assistance may be provided throughout the activity or intermittently. 3-Partial/Moderate Assistance-helper does LESS THAN HALF the effort. [place] lifts, holds or supports trunk or limbs, but provides less than half the effort. 2-Substantial/Maximal Assistance-helper does MORE THAN HALF the effort. [place] lifts or holds trunk or limbs and provides more than half the effort. 3-Seldbirip-lfervw does ALL the effort. Patient does none of the effort to complete the activity. Or, the assistance of 2 or more helpers is required for the patient to complete the activity. If activity was not attempted, code reason: 7-Patient Refused. 9-Not Applicable-not attempted and the patient did not perform the activity before the current illness, exacerbation or injury. 10-Not Attempted due to Environmental Limitations-(lack of equipment, weather restraints, etc.). 88-Not Attempted due to Medical Conditions or Safety Concerns. Other Treatment Pt educated on B UE exercises against gravity for technique and positioning. 4 exercises 2 sets 10 reps with recovery break between each set. Pt continues to need cues for exercise to do. After session, pt lying in bed with call light/phone in reach. All needs met in room. OT Ship Purser Goals Jail Goals Time Frame: February 13, 2020 Eating (QC): 6 Oral Hygiene (QC): 6 Toileting Hygiene (QC): 6 Shower/Bathe Self (QC): 4 Upper Body Dressing (QC): 5 Lower Body Dressing (QC): 4 On/Off Footwear (QC): 4 Additional Goals: 1-Demonstrate ADL Tasks, 2-Verbalize Understanding, 3-ImproveStrength/[place]orena 1=Demonstrate adherence to instructed precautions during ADL tasks. 2=Patient will verbalize/demonstrate understanding of assistive devices/modifications for ADL. 3=Patient will improve strength/tolerance for activity to enable patient to per form ADL's. OT Education/Plan Problem List/Assessment Assessment: Decreased Activ Tolerance, Decreased UE Strength, Impaired Cognition, Impaired Coordination, Impaired Funct Balance, Impaired Self-Care Skills Discharge Recommendations Plan/Recommendations: Continue POC Treatment Plan/Plan of Care Patient would benefit from OT for education, treatment and training to promote independence in ADL's, mobility, safety and/or upper extremity function for ADL's. Plan of Care: ADL Retraining, Functional Mobility, UE Funct Exercise/Act Treatment Duration: February 13, 2020 Frequency: 5 times per week Estimated Hrs Per Day: .25 hour per day Rehab Potential: Guarded Time/GCodes Start Time: 13:45 Stop Time: 14:00 Total Time Billed (hr/min): 15 Billed Treatment Time 1 visit-EX 1 (15 min) CANDI MITCHELL January 28, 2020 14:21
[2020-01-28] MEDS: RIVAROXABAN 20 MG TABLET (XARELTO) PO SCH (17:49)
[2020-01-28] MEDS ORDERED: TROUGH ORDER-PHARMACY XX NR (18:30)
[2020-01-29] MEDS: MEROPENEM 500 MG in WATER (STERILE) FOR INJECTION 10 ML IV SCH ×4 (00:55→18:22)
[2020-01-29] MEDS: RT-ALBUTEROL/IPRATROPIUM 3 ML (DUONEB) VIAL INH SCH ×6 (02:32→22:19)
[2020-01-29 04:21] VITALS: BP 102/61
[2020-01-29 05:16] LABS: BASOPHILS % (AUTO) 0 % (0-10); EOSINOPHILS # (AUTO) 0.1 10^3/uL (0.0-0.3); EOSINOPHILS % (AUTO) 1 % (0-10); HEMATOCRIT 25 % (40-54); HEMOGLOBIN 7.8 G/DL (13.3-17.7); LYMPHOCYTES # (AUTO) 1.5 X 10^3 (1.0-4.0); LYMPHOCYTES % (AUTO) 10 % (12-44); MEAN CORPUSCULAR HEMOGLOBIN 32 PG (25-34); MEAN CORPUSCULAR HGB CONC 32 G/DL (32-36); MEAN CORPUSCULAR VOLUME 100 FL (80-99); MONOCYTES # (AUTO) 1.5 X 10^3 (0.0-1.0); MONOCYTES % (AUTO) 10 % (0-12); NEUTROPHILS # (AUTO) 11.7 X 10^3 (1.8-7.8); NEUTROPHILS % (AUTO) 79 % (42-75); PLATELET COUNT 454 10^3/uL (130-400); RED CELL DISTRIBUTION WIDTH 18.7 % (10.0-14.5); WHITE BLOOD COUNT 14.8 10^3/uL (4.3-11.0)
[2020-01-29 05:42] LABS: BUN/CREATININE RATIO 31; CALCIUM 7.9 MG/DL (8.5-10.1); CARBON DIOXIDE 26 MMOL/L (21-32); CHLORIDE 105 MMOL/L (98-107); CREATININE SERUM 0.49 MG/DL (0.60-1.30); GFR ESTIMATED > 60; GLUCOSE 97 MG/DL (70-105); PHOSPHORUS 2.6 MG/DL (2.3-4.7); POTASSIUM 4.4 MMOL/L (3.6-5.0); SODIUM 139 MMOL/L (135-145)
[2020-01-29] MEDS: FERROUS SULF 325 MG (IRON) TAB PO SCH ×2 (06:00→17:02)
[2020-01-29] MEDS: MULTIVIT W/MINERALS TAB (THERAGRAN M) PO SCH (06:00)
[2020-01-29 07:51] VITALS: BP 93/58
--- NOTE | 2020-01-29 08:21 | Cardiology Progress Note ---
Subjective Date Seen by Provider: January 29, 2020 Time Seen by Provider: 08:19 Subjective/Events-last exam Patient sitting up in bed, c/o chest pain and dyspnea this morning shortly after eating breakfast. Review of Systems General: No Chills, No Night Sweats; Fatigue; No Malaise, No Appetite, No Other HEENT: No Head Aches, No Visual Changes, No Eye Pain, No Ear Pain, No Dysphasia, No Sinus Congestion, No Post Nasal Drip, No Sore Throat, No Other Pulmonary: Dyspnea; No Cough, No Pleuritic Chest Pain, No Other Cardiovascular: Chest Pain; No: Palpitations, Orthopnea, Paroxysmal Noc. Dyspnea, Edema, Lt Headedness, Other Objective-Cardiology Exam Last Set of Vital Signs Vital Signs 01/29/20 01/29/20 02:33 07:51 Temp 37.9 Pulse 106 Resp 22 B/P (MAP) 93/58 (70) Pulse Ox 95 O2 Delivery Nasal Cannula O2 Flow Rate 1.00 FiO2 24 Capillary Refill : Less Than 3 SecondsLess Than 3 Seconds I&O Intake and Output 01/29/20 00:00 Intake Total 2656.25 ml Output Total 2625 ml Balance 31.25 ml Intake Oral 2380 ml IV Total 276.25 ml Output Urine Total 2625 ml # Bowel Movements 4 General: Alert, Oriented X3, Cooperative HEENT: Atraumatic, PERRLA Neck: Supple, No JVD, No Thyromegaly Lungs: Other (bilat rhonchi) Heart: Regular Rate, Normal S1, Normal S2, No Murmurs Abdomen: Normal Bowel Sounds, Soft, No Tenderness, No Hepatosplenomegaly, No Masses Extremities: No Clubbing, No Cyanosis, No Edema, Normal Pulses, No Tenderness/Swelling Skin: No Rashes, No Breakdown, No Significant Lesion Neuro: Normal Speech, Cranial Nerves 3-12 NL Psych/Mental Status: Mental Status NL, Mood NL Results Lab Laboratory Tests 01/29/20 05:00 A/P-Cardiology Admission Diagnosis Acute limb ischemia PAF Pneumonia Tobaccoism Assessment/Plan Chest pain, resembling angina- EKG reveals SR with no acute ST changes. Will order stat troponin. Has multiple risk factors for underlying CAD, planning for C tomorrow. Acute limb ischemia due to thromboembolic occlusion of R distal SFA, and large thrombus in the R proximal SFA, treated with TNK and heparin and WELDER METAL FAB with latter day of antegrade flow and with R blue-toe syndrome. Maintained on Xarelto and Plavix. PAF with RVR on 01/24/20, currently sinus rhythm. Continue on current medications and continue to monitor. Acute respiratory failure, pneumonia and lung mass, continues to improve. 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 Has been on disability Tobaccoism, stopped smoking in December 2019, advised to continue to refrain Anemia of undetermined etiology, managed by the Med Service Patient was seen and evaluated with Stacie, examination performed, management plan was discussed, agree with the current scribed note, I made few changes to the note using Italic font Patient has been having recurrent chest pain, had another episode of chest pain this morning, no acute EKG changes. Troponin is negative Discussed the management plan recommended cardiac catheterization, Anemia is slightly worse today, continue to monitor, may require blood transfusion Clinical Quality Measures DVT/VTE Risk/Contraindication: Risk Factor Score Per Nursin STACIE PATEL January 29, 2020 08:21 THERESA BELLAMY MD January 29, 2020 09:59
[2020-01-29] MEDS: FOLIC ACID 1 MG TAB PO SCH (09:07)
[2020-01-29] MEDS: guaiFENesin (MUCINEX) 600 MG TAB PO SCH ×2 (09:08→19:45)
[2020-01-29] MEDS: DIGOXIN 0.25 MG (LANOXIN) TAB PO SCH (09:08)
[2020-01-29] MEDS: oxyCODONE 5 MG/5 ML ORAL SOLN (roxiCODONE) 5 ML UDC PO PRN ×2 (09:08→17:02)
[2020-01-29] MEDS: meTOprolol TARTRATE 25 MG (LOPRESSOR) TABLET PO SCH ×2 (09:08→21:00)
[2020-01-29] MEDS: NICOTINE 14 MG (NICODERM) PATCH TD SCH (09:09)
[2020-01-29] MEDS: SENNA W/DOCUSATE (SENOKOT S) TABLET PO SCH ×2 (09:09→21:00)
[2020-01-29] MEDS: risperiDONE 0.25 MG (RisperDAL) TAB PO SCH ×2 (09:09→19:45)
[2020-01-29] MEDS: PATCH REMOVAL TP SCH (09:09)
[2020-01-29] MEDS: PANTOPRAZOLE 40 MG (PROTONIX) VIAL IV SCH (09:09)
[2020-01-29] MEDS: DOCUSATE SODIUM 100 MG (COLACE) CAP PO SCH ×2 (09:11→21:00)
--- NOTE | 2020-01-29 10:36 | Physical Therapy Daily Note ---
PT Daily Note-Current Subjective Pt. in bed, says "I just woke up, washed my face. I'm having a hard time breathing this morning." Pt. rates pain 4/10 in the L chest area. He declines out of bed activity stating "I just woke up and am suppose to have surgery today." Mental Status Patient Orientation: Person Attachments: Oxygen, Jackson Catheter, IV Transfers SCALE: Activities may be completed with or without assistive devices. 3-Glrrnooakj-gbclrxy completes the activity by him/herself with no assistance from a helper. 5-Set-up or Clean-up Assistance-helper sets up or cleans up; patient completes activity. [place] assists only prior to or following the activity. 4-Supervision or Touching Assistance-helper provides verbal cues and/or touching/steadying and/or contact guard assistance as patient completes activity. Assistance may be provided throughout the activity or intermittently. 3-Partial/Moderate Assistance-helper does LESS THAN HALF the effort. [place] lifts, holds or supports trunk or limbs, but provides less than half the effort. 2-Substantial/Maximal Assistance-helper does MORE THAN HALF the effort. [place] lifts or holds trunk or limbs and provides more than half the effort. 8-Kqdypefzm-ocmzif does ALL the effort. Patient does none of the effort to complete the activity. Or, the assistance of 2 or more helpers is required for the patient to complete the activity. If activity was not attempted, code reason: 7-Patient Refused. 9-Not Applicable-not attempted and the patient did not perform the activity before the current illness, exacerbation or injury. 10-Not Attempted due to Environmental Limitations-(lack of equipment, weather restraints, etc.). 88-Not Attempted due to Medical Conditions or Safety Concerns. Weight Bearing Right Lower Extremity: Right Weight Bearing/Tolerated Left Lower Extremity: Left Weight Bearing/Tolerated Exercises Supine Ex: Ankle pumps, Quad Set, Glut sets, Heel Slides, Straight leg raise, Hip abd/add Supine Reps: 15 Treatments LE exercise Assessment Current Status: Fair Progress Pt. declines out of bed activity, only agrees to LE exercises in bed. Pt. does require rest periods between exercises due to SOB. Pt. needs assist with SLR and hip abd exercises. Pt. in bed post session with call light and all needs met. PT Short Term Goals Short Term Goals Time Frame: February 07, 2020 Roll Left & Right: 3 Sit to lyin Lying to sitting on side of be: 3 Sit to stand: 3 Chair/jku-zb-ojwpt transfer: 3 Toilet transfer: 3 Walk 10 feet: 3 PT Chainstitch Elastic Attacher Goals Senior Care Goals PT Senior Care Goals Time Frame: Feb 21, 2020 Roll Left & Right (QC): 5 Sit to Lying (QC): 5 Lying-Sitting on Side/Bed(QC): 5 Sit to Stand (QC): 5 Chair/Kpo-so-Fayet Xfer(QC): 5 Toilet Transfer (QC): 5 Car Transfer (QC): 5 Does the Patient Walk: Yes Walk 10 feet (QC): 5 Walk 50ft with 2 Turns (QC): 5 Walk 150 ft (QC): 5 Walking 10ft on Uneven Surface: 5 1 Step (curb) (QC): 5 4 Steps (QC): 5 12 Steps (QC): 5 Picking up an Object (QC): 5 Does the Pt use WC or Scooter?: No Wheel 50 feet with 2 turns (QC: 9 Type: N/A Wheel 150 feet: 9 Type: N/A PT Plan Treatment/Plan Treatment Plan: Continue Plan of Care Treatment Plan: Bed Mobility, Education, Functional Activity Lorena, Functional Strength, Gait, Safety, Therapeutic Exercise, Transfers Treatment Duration: Feb 21, 2020 Frequency: 6 times per week Estimated Hrs Per Day: .25 hour per day Patient and/or Family Agrees t: Yes Time/GCodes Time In: 1025 Time Out: 1040 Total Billed Treatment Time: 15 Total Billed Treatment 1, Ex 15' IBAN HAIDER PT January 29, 2020 10:36
--- NOTE | 2020-01-29 10:40 | Occupational Ther Daily Note ---
OT Current Status-Daily Note Subjective Pt laying in bed at start of session, awoken for OT tx. Pt states "I just want to lay here", with mod encouragement he agreed to participate in ADL session. Mental Status/Objective Attachments: Jackson Catheter, Oxygen ADL-Treatment Therapy Code Descriptions/Definitions Functional [place] Measure: 0=Not Assessed/NA 4=Minimal Assistance 1=Total Assistance 5=Supervision or Setup 2=Maximal Assistance 6=Modified [place] 3=Moderate Assistance 7=Complete IndependenceSCALE: Activities may be completed with or without assistive devices. 3-Hjyicctrfn-vtwvvei completes the activity by him/herself with no assistance from a helper. 5-Set-up or Clean-up Assistance-helper sets up or cleans up; patient completes activity. [place] assists only prior to or following the activity. 4-Supervision or Touching Assistance-helper provides verbal cues and/or touching/steadying and/or contact guard assistance as patient completes ac tivity. Assistance may be provided throughout the activity or intermittently. 3-Partial/Moderate Assistance-helper does LESS THAN HALF the effort. [place] lifts, holds or supports trunk or limbs, but provides less than half the effort. 2-Substantial/Maximal Assistance-helper does MORE THAN HALF the effort. [place] lifts or holds trunk or limbs and provides more than half the effort. 2-Vkdtctdyo-pzoqgp does ALL the effort. Patient does none of the effort to complete the activity. Or, the assistance of 2 or more helpers is required for the patient to complete the activity. If activity was not attempted, code reason: 7-Patient Refused. 9-Not Applicable-not attempted and the patient did not perform the activity before the current illness, exacerbation or injury. 10-Not Attempted due to Environmental Limitations-(lack of equipment, weather restraints, etc.). 88-Not Attempted due to Medical Conditions or Safety Concerns. Oral Hygiene (QC): 5 (set up at tray table.) Other Treatment Pt laying in bed during tx, declined OOB activities. Pt able to wash his face with set up assistance, then changed his hospital gown with min A. Pt agreed to brushing his teeth, completing task at tray table. Pt declined further UE exe rcises/ADLs at this time. Post OT session, pt laying in bed call light in reach and all needs met. Education OT Patient Education: Correct positioning, Modified ADL techniques, Progress toward Goal/Update tx plan, Purpose of tx/functional activities Teaching Recipient: Patient Teaching Methods: Discussion Response to Teaching: Verbalize Understanding OT Chief Of Internal Medicine Goals Chief Of Internal Medicine Goals Time Frame: February 13, 2020 Eating (QC): 6 Oral Hygiene (QC): 6 Toileting Hygiene (QC): 6 Shower/Bathe Self (QC): 4 Upper Body Dressing (QC): 5 Lower Body Dressing (QC): 4 On/Off Footwear (QC): 4 Additional Goals: 1-Demonstrate ADL Tasks, 2-Verbalize Understanding, 3- ImproveStrength/[place]ore[place] 1=Demonstrate adherence to instructed precautions during ADL tasks. 2=Patient will verbalize/demonstrate understanding of assistive devices/modifications for ADL. 3=Patient will improve strength/tolerance for activity to enable patient to perform ADL's. OT Education/Plan Problem List/Assessment Assessment: Decreased Activ Tolerance, Decreased UE Strength, Impaired I ADL's, Impaired Self-Care Skills Discharge Recommendations Plan/Recommendations: Continue POC Treatment Plan/Plan of Care Patient would benefit from OT for education, treatment and training to promote independence in ADL's, mobility, safety and/or upper extremity function for ADL's. Plan of Care: ADL Retraining, Functional Mobility, UE Funct Exercise/Act Treatment Duration: February 13, 2020 Frequency: 5 times per week Estimated Hrs Per Day: .25 hour per day Rehab Potential: Guarded Time/GCodes Start Time: 10:10 Stop Time: 10:25 Total Time Billed (hr/min): 15 Billed Treatment Time 1, ADL ASH ANTONY OT January 29, 2020 10:40
[2020-01-29 11:44] VITALS: BP 104/69
--- NOTE | 2020-01-29 13:50 | NUR ---
"RD ASSESSMENT PMHx: COPD; tobacco use PT INTERACTION: Pt was awake and pleasant during nutrition follow-up. Pt states he has been eating well and tolerating the nutrition supplementation since last assessment. Note avg PO intake 92% x4d, per chart review. Pt states some recent issues with nausea on 01/27, but no issues with vomiting, constipation, or diarrhea since last assessment. Note last BM was 01/28, and pt currently on bowel regimen of colace BID, and senna BID, per chart review. ABNORMAL NUTRITION-RELATED LAB VALUES LOW: cr 0.49; Ca 7.9 HIGH: Est. kcal needs: 7210-3030 kcal | 30-35 kcal/kg Est. Pro needs: 83-96 g Pro | 1.0-1.5 g Pro/kg PES STATEMENT: Given current PO intake and appetite, no nutrition diagnosis at this time (NO-1.1) INTERVENTION: Continue with current diet order of Regular diet. Continue with current supplementation order of Ensure Enlive with meals TID, for increase kcal intake. Provides 350 kcal and 13 g Pro per serving. Would recommend getting current wt for pt. Update BMP with Pro and alb lab values. Will continue to follow and reassess as pt needs, intake, and status change. MONITOR/EVALUATE: PO Intake; Plan of Care; Hydration Status; Weight Status; Lab Values Doug Nunez, MS, RD, LD"
[2020-01-29 15:38] VITALS: BP 95/63
[2020-01-29] MEDS: RIVAROXABAN 20 MG TABLET (XARELTO) PO SCH (17:02)
--- NOTE | 2020-01-29 17:47 | NUR ---
AFTER USING BEDSIDE COMMODE PT. HAD SMALL AMT. BLEEDING FROM SCROTUM. PT. STATED " THAT COMMODE PINCHED MY SCROTUM." ZINC OXIDE APPLIED TO SCROTUM AND EPI-AREA.
[2020-01-29] MEDS: ACETAMINOPHEN 325 MG TABLET PO PRN (19:44)
[2020-01-29 19:51] VITALS: BP 98/62
[2020-01-30] VITALS (7 sets, daily range): BP systolic 87–106; BP diastolic 54–65
[2020-01-30] MEDS: MEROPENEM 500 MG in WATER (STERILE) FOR INJECTION 10 ML IV SCH ×3 (00:19→19:43)
[2020-01-30] MEDS: ACETAMINOPHEN 325 MG TABLET PO PRN ×2 (00:20→23:47)
[2020-01-30] MEDS: oxyCODONE 5 MG/5 ML ORAL SOLN (roxiCODONE) 5 ML UDC PO PRN ×2 (00:25→20:47)
[2020-01-30] MEDS: RT-ALBUTEROL/IPRATROPIUM 3 ML (DUONEB) VIAL INH SCH ×6 (02:50→22:30)
[2020-01-30] MEDS: FERROUS SULF 325 MG (IRON) TAB PO SCH ×2 (04:47→20:30)
[2020-01-30] MEDS: MULTIVIT W/MINERALS TAB (THERAGRAN M) PO SCH (04:47)
[2020-01-30 05:00] LABS: BASOPHILS % (AUTO) 0 % (0-10); EOSINOPHILS # (AUTO) 0.1 10^3/uL (0.0-0.3); EOSINOPHILS % (AUTO) 1 % (0-10); HEMATOCRIT 25 % (40-54); HEMOGLOBIN 7.8 G/DL (13.3-17.7); LYMPHOCYTES # (AUTO) 1.7 X 10^3 (1.0-4.0); LYMPHOCYTES % (AUTO) 13 % (12-44); MEAN CORPUSCULAR HEMOGLOBIN 32 PG (25-34); MEAN CORPUSCULAR HGB CONC 32 G/DL (32-36); MEAN CORPUSCULAR VOLUME 100 FL (80-99); MEAN PLATELET VOLUME 9.4 FL (7.4-10.4); MONOCYTES # (AUTO) 0.9 X 10^3 (0.0-1.0); MONOCYTES % (AUTO) 7 % (0-12); NEUTROPHILS # (AUTO) 10.3 X 10^3 (1.8-7.8); NEUTROPHILS % (AUTO) 78 % (42-75); PLATELET COUNT 436 10^3/uL (130-400); RED CELL DISTRIBUTION WIDTH 18.7 % (10.0-14.5); WHITE BLOOD COUNT 13.1 10^3/uL (4.3-11.0)
[2020-01-30 05:21] LABS: BUN/CREATININE RATIO 32; CARBON DIOXIDE 27 MMOL/L (21-32); CHLORIDE 103 MMOL/L (98-107); CREATININE SERUM 0.44 MG/DL (0.60-1.30); GFR ESTIMATED > 60; GLUCOSE 97 MG/DL (70-105); MAGNESIUM 2.2 MG/DL (1.6-2.4); PHOSPHORUS 3.4 MG/DL (2.3-4.7); POTASSIUM 4.1 MMOL/L (3.6-5.0); SODIUM 139 MMOL/L (135-145)
[2020-01-30] MEDS ORDERED: HEParin (CATH LAB) 0 ML IV ONE (06:53)
[2020-01-30] MEDS ORDERED: LIDOCAINE 1% INJ 20 ML 20 ML VIAL ONE (06:53)
[2020-01-30] MEDS: risperiDONE 0.25 MG (RisperDAL) TAB PO SCH ×2 (08:08→20:30)
[2020-01-30] MEDS: DIGOXIN 0.25 MG (LANOXIN) TAB PO SCH (08:08)
[2020-01-30] MEDS: DOCUSATE SODIUM 100 MG (COLACE) CAP PO SCH ×2 (08:09→20:30)
[2020-01-30] MEDS: PANTOPRAZOLE 40 MG (PROTONIX) VIAL IV SCH (08:09)
--- NOTE | 2020-01-30 09:33 | Occupational Ther Daily Note ---
OT Current Status-Daily Note Subjective Pt seated upright in recliner, agreeable to ADL tx this AM. Pt reports he is having a procedure later and is unable to eat/drink anything this morning. He did not report any pain. Mental Status/Objective Attachments: Jackson Catheter, Telemetry ADL-Treatment Therapy Code Descriptions/Definitions Functional [place] Measure: 0=Not Assessed/NA 4=Minimal Assistance 1=Total Assistance 5=Supervision or Setup 2=Maximal Assistance 6=Modified [place] 3=Moderate Assistance 7=Complete IndependenceSCALE: Activities may be completed with or without assistive devices. 4-Fwvlbqognc-pbahcgf completes the activity by him/herself with no assistance from a helper. 5-Set-up or Clean-up Assistance-helper sets up or cleans up; patient completes activity. [place] assists only prior to or following the activity. 4-Supervision or Touching Assistance-helper provides verbal cues and/or touching/steadying and/or contact guard assistance as patient completes activity. Assistance may be provided throughout the activity or intermittently. 3-Partial/Moderate Assistance-helper does LESS THAN HALF the effort. [place] lifts, holds or supports trunk or limbs, but provides less than half the effort. 2-Substantial/Maximal Assistance-helper does MORE THAN HALF the effort. [place] lifts or holds trunk or limbs and provides more than half the effort. 8-Fhyyoaqzv-drdqgu does ALL the effort. Patient does none of the effort to complete the activity. Or, the assistance of 2 or more helpers is required for the patient to complete the activity. If activity was not attempted, code reason: 7-Patient Refused. 9-Not Applicable-not attempted and the patient did not perform the activity before the current illness, exacerbation or injury. 10-Not Attempted due to Environmental Limitations-(lack of equipment, weather restraints, etc.). 88-Not Attempted due to Medical Conditions or Safety Concerns. Oral Hygiene (QC): 5 (set up at tray table.) Other Treatment Pt seated at recliner, agreeable to ADL tx. He brushed his teeth with set up assist at tray table, then washed his face with set up. Pt initially declined changing gowns but stain on front of gown, pt then agreed. Pt required min A to [facility] gown with assist tying/untying gown and assist with management of telemetry/O2 lines. Post OT session, pt seated in recliner, call light in reach and all needs met. Pt declined further ADLs. Education OT Patient Education: Correct positioning, Energy conservation, Modified ADL techniques, Progress toward Goal/Update tx plan, Purpose of tx/functional activities Teaching Recipient: Patient Teaching Methods: Discussion Response to Teaching: Verbalize Understanding OT Ceo And President Goals Half-Way Goals Time Frame: February 13, 2020 Eating (QC): 6 Oral Hygiene (QC): 6 Toileting Hygiene (QC): 6 Shower/Bathe Self (QC): 4 Upper Body Dressing (QC): 5 Lower Body Dressing (QC): 4 On/Off Footwear (QC): 4 Additional Goals: 1-Demonstrate ADL Tasks, 2-Verbalize Understanding, 3-ImproveStrength/Lorena 1=Demonstrate adherence to instructed precautions during ADL tasks. 2=Patient will verbalize/demonstrate understanding of assistive devices/modifications for ADL. 3=Patient will improve strength/tolerance for activity to enable patient to perform ADL's. OT Education/Plan Problem List/Assessment Assessment: Decreased Activ Tolerance, Decreased UE Strength, Impaired Funct Balance, Impaired I ADL's, Impaired Self-Care Skills Discharge Recommendations Plan/Recommendations: Continue POC Treatment Plan/Plan of Care Patient would benefit from OT for education, treatment and training to promote independence in ADL's, mobility, safety and/or upper extremity function for ADL's. Plan of Care: ADL Retraining, Functional Mobility, UE Funct Exercise/Act Treatment Duration: February 13, 2020 Frequency: 5 times per week Estimated Hrs Per Day: .25 hour per day Rehab Potential: Guarded Time/GCodes Start Time: 09:15 Stop Time: 09:30 Total Time Billed (hr/min): 15 Billed Treatment Time 1, ADL ASH ANTONY OT January 30, 2020 09:33
[2020-01-30] MEDS: guaiFENesin (MUCINEX) 600 MG TAB PO SCH ×2 (10:15→20:30)
[2020-01-30] MEDS: NICOTINE 14 MG (NICODERM) PATCH TD SCH (10:15)
[2020-01-30] MEDS: PATCH REMOVAL TP SCH (10:15)
[2020-01-30] MEDS: FOLIC ACID 1 MG TAB PO SCH (10:15)
[2020-01-30] MEDS: SENNA W/DOCUSATE (SENOKOT S) TABLET PO SCH ×2 (10:16→20:30)
--- NOTE | 2020-01-30 10:28 | Physical Therapy Daily Note ---
PT Daily Note-Current Subjective Patient is very alert and agreeable to participate with PT. Pain Numeric Pain Scale: 0-No Pain Location: No Pain Reported Mental Status Patient Orientation: Person, Time, Situation Attachments: Oxygen, Jackson Catheter Transfers SCALE: Activities may be completed with or without assistive devices. 7-Pnkgvkcmer-ucxebve completes the activity by him/herself with no assistance from a helper. 5-Set-up or Clean-up Assistance-helper sets up or cleans up; patient completes activity. [place] assists only prior to or following the activity. 4-Supervision or Touching Assistance-helper provides verbal cues and/or touching/steadying and/or contact guard assistance as patient completes activity. Assistance may be provided throughout the activity or intermittently. 3-Partial/Moderate Assistance-helper does LESS THAN HALF the effort. [place] lifts, holds or supports trunk or limbs, but provides less than half the effort. 2-Substantial/Maximal Assistance-helper does MORE THAN HALF the effort. [place] lifts or holds trunk or limbs and provides more than half the effort. 1-Gwzeqrtzw-mqwyfr does ALL the effort. Patient does none of the effort to complete the activity. Or, the assistance of 2 or more helpers is required for the patient to complete the activity. If activity was not attempted, code reason: 7-Patient Refused. 9-Not Applicable-not attempted and the patient did not perform the activity before the current illness, exacerbation or injury. 10-Not Attempted due to Environmental Limitations-(lack of equipment, weather restraints, etc.). 88-Not Attempted due to Medical Conditions or Safety Concerns. Roll Left & Right (QC): 5 Lying to Sitting/Side of Bed(Q: 5 Sit to Stand (QC): 3 Chair/Njn-cc-Eqekg Xfer(QC): 3 sit to stand x 3 minimal assist to FWW Weight Bearing Right Lower Extremity: Right Weight Bearing/Tolerated Left Lower Extremity: Left Weight Bearing/Tolerated Gait Training Does the Patient Walk?: No and Walking Goal IS indicated Distance: 5' Gait Assistive Device: FWW 3 Exercises Supine Ex: Ankle pumps, Quad Set, Heel Slides Supine Reps: 12 Seated Therapy Exercises: Ankle pumps, Long arc quads Seated Reps: 15 Assessment Patient to have heart cath on this date. Patient did show progress this a.m. PT Short Term Goals Short Term Goals Time Frame: February 07, 2020 Roll Left & Right: 3 Sit to lyin Lying to sitting on side of be: 3 Sit to stand: 3 Chair/exu-zu-cqozg transfer: 3 Toilet transfer: 3 Walk 10 feet: 3 PT Audio Visual Facilities Engineer Goals Half-Way Goals PT Audio Visual Facilities Engineer Goals Time Frame: Feb 21, 2020 Roll Left & Right (QC): 5 Sit to Lying (QC): 5 Lying-Sitting on Side/Bed(QC): 5 Sit to Stand (QC): 5 Chair/Xxx-zf-Xamzr Xfer(QC): 5 Toilet Transfer (QC): 5 Car Transfer (QC): 5 Does the Patient Walk: Yes Walk 10 feet (QC): 5 Walk 50ft with 2 Turns (QC): 5 Walk 150 ft (QC): 5 Walking 10ft on Uneven Surface: 5 1 Step (curb) (QC): 5 4 Steps (QC): 5 12 Steps (QC): 5 Picking up an Object (QC): 5 Does the Pt use WC or Scooter?: No Wheel 50 feet with 2 turns (QC: 9 Type: N/A Wheel 150 feet: 9 Type: N/A PT Plan Treatment/Plan Treatment Plan: Continue Plan of Care Treatment Plan: Bed Mobility, Education, Functional Activity [place]orena, Functional Strength, Gait, Safety, Therapeutic Exercise, Transfers Treatment Duration: Feb 21, 2020 Frequency: 6 times per week Estimated Hrs Per Day: .25 hour per day Patient and/or Family Agrees t: Yes Time/GCodes Time In: 902 Time Out: 917 Total Billed Treatment Time: 15 Total Billed Treatment 1 visit EX 15 min IDRIS ONEIL PT January 30, 2020 10:28
[2020-01-30 11:15] LABS: PROTHROMBIN TIME PATIENT 13.5 SEC (12.2-14.7)
--- NOTE | 2020-01-30 12:43 | Cardiology Progress Note ---
Subjective Date Seen by Provider: January 30, 2020 Time Seen by Provider: 12:42 Subjective/Events-last exam Patient is laying down in bed, feeling better, no chest pain was reported today Review of Systems General: No Chills, No Night Sweats, No Fatigue, No Malaise, No Appetite, No Other HEENT: No Head Aches, No Visual Changes, No Eye Pain, No Ear Pain, No Dysphasia, No Sinus Congestion, No Post Nasal Drip, No Sore Throat, No Other Pulmonary: No Dyspnea, No Cough, No Pleuritic Chest Pain, No Other Cardiovascular: No: Chest Pain, Palpitations, Orthopnea, Paroxysmal Noc. Dyspnea, Edema, Lt Headedness, Other Objective-Cardiology Exam Last Set of Vital Signs Vital Signs 01/30/20 01/30/20 02:51 11:26 Temp 37.2 Pulse 114 Resp 18 B/P (MAP) 93/65 (74) Pulse Ox 94 O2 Delivery Nasal Cannula O2 Flow Rate 2.00 FiO2 21 Capillary Refill : Less Than 3 SecondsLess Than 3 Seconds I&O Intake and Output 01/30/20 00:00 Intake Total 2830 ml Output Total 3400 ml Balance -570 ml Intake Oral 2050 ml IV Total 780 ml Output Urine Total 3400 ml # Bowel Movements 3 General: Alert, Oriented X3, Cooperative HEENT: Atraumatic, PERRLA Neck: Supple, No JVD, No Thyromegaly Lungs: Other (bilat rhonchi) Heart: Regular Rate, Normal S1, Normal S2, No Murmurs Abdomen: Normal Bowel Sounds, Soft, No Tenderness, No Hepatosplenomegaly, No Masses Extremities: No Clubbing, No Cyanosis, No Edema, Normal Pulses, No T enderness/Swelling Skin: No Rashes, No Breakdown, No Significant Lesion Neuro: Normal Speech, Cranial Nerves 3-12 NL Psych/Mental Status: Mental Status NL, Mood NL Results Lab Laboratory Tests 01/30/20 04:30 A/P-Cardiology Admission Diagnosis Acute limb ischemia PAF Pneumonia Tobaccoism Assessment/Plan Chest pain, resembling angina- EKG reveals SR with no acute ST changes. 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 Maintained on Xarelto and Plavix. PAF with RVR on 01/24/20, currently sinus rhythm. Continue on current medications and continue to monitor. Acute respiratory failure, pneumonia and lung mass, continues to improve. 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 Has been on disability Tobaccoism, stopped smoking in December 2019, advised to continue to refrain Anemia of undetermined etiology, managed by the [facility] Clinical Quality Measures DVT/VTE Risk/Contraindication: Risk Factor Score Per Nursin THERESA BELLAMY MD January 30, 2020 12:43
[2020-01-30] MEDS ORDERED: fentaNYL INJECTION 100 MCG/2 ML AMP ONE (12:47)
[2020-01-30] MEDS ORDERED: MIDAZOLAM 5 MG/5 ML (VERSED) VIAL ONE (12:47)
--- NOTE | 2020-01-30 12:57 | Progress Note - Hospitalist ---
Subjective HPI/CC On Admission Date Seen by Provider: January 30, 2020 Time Seen by Provider: 10:00 Subjective/Events-last exam He was having chest pain yesterday but denies any at this time. He denies any shortness of breath. He denies any nausea or vomiting. He denies any lightheadedness or dizziness. He denies any diaphoresis. He denies any fevers or chills. He has no other complaints or concerns. Objective Exam Vital Signs Vital Signs Date Time Temp Pulse Resp B/P (MAP) Pulse Ox O2 Delivery O2 Flow Rate FiO2 01/30/20 11:26 37.2 114 18 93/65 (74) 94 Nasal Cannula 2.00 01/30/20 02:51 21 Capillary Refill : Less Than 3 SecondsLess Than 3 Seconds General Appearance: No Apparent Distress, Thin Neck: Normal Inspection, Supple Respiratory: Lungs Clear, Normal Breath Sounds, No Respiratory Distress Cardiovascular: Regular Rate, Rhythm, No Edema, No Murmur Extremity: Normal Inspection, Non Tender, No Pedal Edema Neurologic/Psychiatric: Alert, Oriented x3, Normal Mood/Affect, Motor Weakness Skin: Normal Color, Warm/Dry Results/Procedures Lab Laboratory Tests 01/30/20 04:30 Patient resulted labs reviewed. Imaging: Reviewed Imaging Report Assessment/Plan Assessment and Plan Assess & Plan/Chief Complaint Chest pain EKG and troponin unremarkable Cardiology planning for left heart catheterization today Debility PT/OT Acute respiratory failure with hypoxia- resolved Possible left upper lobe mass Likely COPD Tobacco abuse intubated this admission, extubated / Remains on nasal cannula Pulmonology consulted, appreciate assistance Procalcitonin normal Discontinue [place] Needs repeat CT scan in about a month to evaluate possible left upper lobe mass Atrial fibrillation with rapid ventricular response Acute occlusion of artery of right lower extremity due to thromboembolism Cardiology consulted, appreciate assistance Underwent emergent angiogram with thrombolytics and balloon angioplasty 01/12 Continue Plavix and Xarelto Iron deficiency anemia Anemia of chronic disease Folic acid deficiency Hemoglobin stable Iron studies consistent with both iron deficiency and anemia of chronic disease Folic acid level low Continue folic acid and iron supplementation Fecal occult blood positive Will need a colonoscopy at some point, likely outpatient due to respiratory status Severe protein calorie malnutrition Dietary consulted, continue supplements DVT prophylaxis: Already receiving therapeutic anticoagulation ICU delirium, resolved Endotracheally intubated, resolved Pneumonia, resolved Diagnosis/Problems Diagnosis/Problems (1) Chest pain Status: Acute (2) Debility Status: Acute (3) Pneumonia Status: Acute (4) Lung mass Status: Acute (5) Tobacco abuse Status: Chronic (6) Acute respiratory failure with hypoxia Status: Acute (7) Acute occlusion of artery of lower extremity due to thromboembolism Status: Acute (8) Atrial fibrillation with rapid ventricular response Status: Acute (9) Anemia of chronic disease Status: Chronic (10) Folic acid deficiency Status: Chronic (11) Iron deficiency anemia Status: Chronic (12) Severe protein-calorie malnutrition Status: Acute Clinical Quality Measures DVT/VTE Risk/Contraindication: Risk Factor Score Per Nursin CLAU DUONG MD January 30, 2020 12:56
[2020-01-30] MEDS ORDERED: NS IV 1000 ML 0 ML ONE (12:59)
--- NOTE | 2020-01-30 13:20 | NUR ---
TO HEART CATH PER BED.
[2020-01-30] MEDS ORDERED: PATIENT MAY USE OWN MEDS, ALL PO SCH (13:45)
[2020-01-30] MEDS: NS IV 1000 ML 1,000 ML IV SCH (19:40)
[2020-01-30] MEDS: RIVAROXABAN 20 MG TABLET (XARELTO) PO SCH (20:30)
[2020-01-31] MEDS: NS IV 1000 ML 1,000 ML IV SCH (00:18)
[2020-01-31] MEDS: RT-ALBUTEROL/IPRATROPIUM 3 ML (DUONEB) VIAL INH SCH ×6 (02:49→22:22)
[2020-01-31 03:42] VITALS: BP 97/58
[2020-01-31] MEDS: MULTIVIT W/MINERALS TAB (THERAGRAN M) PO SCH (06:24)
[2020-01-31] MEDS: FERROUS SULF 325 MG (IRON) TAB PO SCH ×2 (06:24→17:10)
[2020-01-31 06:46] LABS: BASOPHILS % (AUTO) 0 % (0-10); EOSINOPHILS # (AUTO) 0.2 10^3/uL (0.0-0.3); EOSINOPHILS % (AUTO) 2 % (0-10); HEMATOCRIT 24 % (40-54); HEMOGLOBIN 7.8 G/DL (13.3-17.7); LYMPHOCYTES # (AUTO) 1.7 X 10^3 (1.0-4.0); LYMPHOCYTES % (AUTO) 12 % (12-44); MEAN CORPUSCULAR HEMOGLOBIN 33 PG (25-34); MEAN CORPUSCULAR HGB CONC 33 G/DL (32-36); MEAN CORPUSCULAR VOLUME 101 FL (80-99); MEAN PLATELET VOLUME 9.2 FL (7.4-10.4); MONOCYTES # (AUTO) 0.8 X 10^3 (0.0-1.0); MONOCYTES % (AUTO) 5 % (0-12); NEUTROPHILS # (AUTO) 11.7 X 10^3 (1.8-7.8); NEUTROPHILS % (AUTO) 81 % (42-75); PLATELET COUNT 406 10^3/uL (130-400); RED CELL DISTRIBUTION WIDTH 19.1 % (10.0-14.5); WHITE BLOOD COUNT 14.4 10^3/uL (4.3-11.0)
[2020-01-31 07:20] LABS: BUN/CREATININE RATIO 38; CALCIUM 7.6 MG/DL (8.5-10.1); CARBON DIOXIDE 23 MMOL/L (21-32); CHLORIDE 105 MMOL/L (98-107); CREATININE SERUM 0.45 MG/DL (0.60-1.30); GFR ESTIMATED > 60; GLUCOSE 113 MG/DL (70-105); MAGNESIUM 2.1 MG/DL (1.6-2.4); PHOSPHORUS 2.5 MG/DL (2.3-4.7); POTASSIUM 4.1 MMOL/L (3.6-5.0); SODIUM 139 MMOL/L (135-145)
[2020-01-31 08:12] VITALS: BP 100/65
[2020-01-31] MEDS: PANTOPRAZOLE 40 MG (PROTONIX) VIAL IV SCH (08:26)
[2020-01-31] MEDS: DIGOXIN 0.25 MG (LANOXIN) TAB PO SCH (08:26)
[2020-01-31] MEDS: guaiFENesin (MUCINEX) 600 MG TAB PO SCH ×2 (08:26→20:33)
[2020-01-31] MEDS: NICOTINE 14 MG (NICODERM) PATCH TD SCH (08:26)
[2020-01-31] MEDS: risperiDONE 0.25 MG (RisperDAL) TAB PO SCH ×2 (08:26→20:33)
[2020-01-31] MEDS: FOLIC ACID 1 MG TAB PO SCH (08:26)
[2020-01-31] MEDS: DOCUSATE SODIUM 100 MG (COLACE) CAP PO SCH ×2 (08:27→20:33)
[2020-01-31] MEDS: SENNA W/DOCUSATE (SENOKOT S) TABLET PO SCH ×2 (08:27→20:33)
[2020-01-31] MEDS: PATCH REMOVAL TP SCH (08:50)
[2020-01-31] MEDS: oxyCODONE 5 MG/5 ML ORAL SOLN (roxiCODONE) 5 ML UDC PO PRN ×3 (10:01→21:23)
--- NOTE | 2020-01-31 11:13 | Cardiology Progress Note ---
Subjective Date Seen by Provider: January 31, 2020 Time Seen by Provider: 11:11 Subjective/Events-last exam Patient is laying down in bed, denied any chest pain. Review of Systems General: No Chills, No Night Sweats, No Fatigue, No Malaise, No Appetite, No Other HEENT: No Head Aches, No Visual Changes, No Eye Pain, No Ear Pain, No Dysphasia, No Sinus Congestion, No Post Nasal Drip, No Sore Throat, No Other Pulmonary: No Dyspnea, No Cough, No Pleuritic Chest Pain, No Other Cardiovascular: No: Chest Pain, Palpitations, Orthopnea, Paroxysmal Noc. Dyspnea, Edema, Lt Headedness, Other Objective-Cardiology Exam Last Set of Vital Signs Vital Signs 01/30/20 01/31/20 01/31/20 02:51 08:12 10:36 Temp 36.7 Pulse 116 Resp 18 B/P (MAP) 100/65 (77) Pulse Ox 93 O2 Delivery Nasal Cannula O2 Flow Rate 4.00 FiO2 21 Capillary Refill : Less Than 3 SecondsLess Than 3 Seconds I&O Intake and Output 01/31/20 00:00 Intake Total 650 ml Output Total 3500 ml Balance -2850 ml Intake Oral 640 ml IV Total 10 ml Output Urine Total 3500 ml General: Alert, Oriented X3, Cooperative HEENT: Atraumatic, PERRLA Neck: Supple, No JVD, No Thyromegaly Lungs: Other (bilat rhonchi) Heart: Regular Rate, Normal S1, Normal S2, No Murmurs Abdomen: Normal Bowel Sounds, Soft, No Tenderness, No Hepatosplenomegaly, No Masses Extremities: No Clubbing, No Cyanosis, No Edema, Normal Pulses, No Tenderness/Swelling Skin: No Rashes, No Breakdown, No Significant Lesion Neuro: Normal Speech, Cranial Nerves 3-12 NL Psych/Mental Status: Mental Status NL, Mood NL Results Lab Laboratory Tests 01/31/20 06:27 A/P-Cardiology Admission Diagnosis Acute limb ischemia PAF Pneumonia Tobaccoism (1) Chest pain Status: Acute (2) Debility Status: Acute (3) Lung mass Status: Acute (4) Tobacco abuse Status: Chronic (5) Acute occlusion of artery of lower extremity due to thromboembolism Status: Acute (6) Atrial fibrillation with rapid ventricular response Status: Acute (7) Anemia of chronic disease Status: Chronic (8) Folic acid deficiency Status: Chronic (9) Iron deficiency anemia Status: Chronic (10) Severe protein-calorie malnutrition Status: Acute Assessment/Plan Chest pain, nonspecific etiology, cardiac catheterization carried out on January 30, 2020 showing mild to moderate coronary artery disease nonobstructive disease. 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 Maintained on Xarelto and Plavix. PAF with RVR on 01/24/20, currently sinus rhythm. Continue on current medications and continue to monitor. Acute respiratory failure, pneumonia and lung mass, continues to improve. 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 Has been on disability Tobaccoism, stopped smoking in December 2019, advised to continue to refrain Anemia of undetermined etiology, managed by the Med Service Clinical Quality Measures DVT/VTE Risk/Contraindication: Risk Factor Score Per Nursin THERESA BELLAMY MD January 31, 2020 11:13
--- NOTE | 2020-01-31 11:25 | Physical Therapy Daily Note ---
PT Daily Note-Current Subjective Patient in bed pre tx, agrees to PT, has no complaints of pain. Patient refused therapy earlier this morning due to pain in right hip due to a procedure yesterday, nurse notified and he got pain meds and agrees to PT later. Appearance Patient in recliner post tx with nurse call, phone, tray, all needs met. Chair alarm on, nurse notified. Mental Status Patient Orientation: Person, Place, Situation Attachments: Oxygen, Jackson Catheter Transfers SCALE: Activities may be completed with or without assistive devices. 5-Noihjfvkbb-bkeskuj completes the activity by him/herself with no assistance from a helper. 5-Set-up or Clean-up Assistance-helper sets up or cleans up; patient completes activity. [place] assists only prior to or following the activity. 4-Supervision or Touching Assistance-helper provides verbal cues and/or touching/steadying and/or contact guard assistance as patient completes activity. Assistance may be provided throughout the activity or intermittently. 3-Partial/Moderate Assistance-helper does LESS THAN HALF the effort. [place] lifts, holds or supports trunk or limbs, but provides less than half the effort. 2-Substantial/Maximal Assistance-helper does MORE THAN HALF the effort. [place] l ifts or holds trunk or limbs and provides more than half the effort. 4-Mlatxnmph-wzaaat does ALL the effort. Patient does none of the effort to complete the activity. Or, the assistance of 2 or more helpers is required for the patient to complete the activity. If activity was not attempted, code reason: 7-Patient Refused. 9-Not Applicable-not attempted and the patient did not perform the activity before the current illness, exacerbation or injury. 10-Not Attempted due to Environmental Limitations-(lack of equipment, weather restraints, etc.). 88-Not Attempted due to Medical Conditions or Safety Concerns. Roll Left & Right (QC): 6 Lying to Sitting/Side of Bed(Q: 3 Sit to Stand (QC): 3 Chair/Omn-zr-Sxqss Xfer(QC): 3 Weight Bearing Right Lower Extremity: Right Weight Bearing/Tolerated Left Lower Extremity: Left Weight Bearing/Tolerated Gait Training Distance: 10' Walk 10 feet (QC): 4 Gait Persons Needed: 1 Gait Assistive Device: FWW Patient cued to take slow, short steps due to weakenss, patient complies and does well, no LOB but he is fatigued after ambulation. Patient ambulates to recliner placed away from bed. Exercises Seated Therapy Exercises: Ankle pumps, Long arc quads Seated Reps: 20 Treatments bed mobility and transfers, ambulation, functional strengthening Assessment Current Status: Fair Progress improved endurance and ambulation PT Short Term Goals Short Term Goals Time Frame: February 07, 2020 Roll Left & Right: 3 Sit to lyin Lying to sitting on side of be: 3 Sit to stand: 3 Chair/pqz-rn-dmbpw transfer: 3 Toilet transfer: 3 Walk 10 feet: 3 PT Pump Room Operator Goals Pump Room Operator Goals PT Group Home Goals Time Frame: Feb 21, 2020 Roll Left & Right (QC): 5 Sit to Lying (QC): 5 Lying-Sitting on Side/Bed(QC): 5 Sit to Stand (QC): 5 Chair/Aol-zh-Dssll Xfer(QC): 5 Toilet Transfer (QC): 5 Car Transfer (QC): 5 Does the Patient Walk: Yes Walk 10 feet (QC): 5 Walk 50ft with 2 Turns (QC): 5 Walk 150 ft (QC): 5 Walking 10ft on Uneven Surface: 5 1 Step (curb) (QC): 5 4 Steps (QC): 5 12 Steps (QC): 5 Picking up an Object (QC): 5 Does the Pt use WC or Scooter?: No Wheel 50 feet with 2 turns (QC: 9 Type: N/A Wheel 150 feet: 9 Type: N/A PT Plan Problem List Problem List: Activity Tolerance, Functional Strength, Safety, Balance, Gait, Transfer, Bed Mobility, ROM Treatment/Plan Treatment Plan: Continue Plan of Care Treatment Plan: Bed Mobility, Education, Functional Activity Lorena, Functional Strength, Gait, Safety, Therapeutic Exercise, Transfers Treatment Duration: Feb 21, 2020 Frequency: 6 times per week Estimated Hrs Per Day: .25 hour per day Patient and/or Family Agrees t: Yes Safety Risks/Education Patient Education: Gait Training, Transfer Techniques, Correct Positioning, Safety Issues Teaching Recipient: Patient Teaching Methods: Demonstration, Discussion Response to Teaching: Reinforcement Needed Time/GCodes Time In: 1103 Time Out: 1120 Total Billed Treatment Time: 17 Total Billed Treatment 1 visit FA Denis' MARKO REID PT January 31, 2020 11:24
[2020-01-31 12:14] VITALS: BP 111/62
[2020-01-31 16:48] VITALS: BP 100/65
[2020-01-31] MEDS: RIVAROXABAN 20 MG TABLET (XARELTO) PO SCH (17:10)
[2020-01-31 19:49] VITALS: BP 106/68
[2020-02-01 00:10] VITALS: BP 105/61
[2020-02-01] MEDS: ACETAMINOPHEN 325 MG TABLET PO PRN (00:17)
[2020-02-01] MEDS: RT-ALBUTEROL/IPRATROPIUM 3 ML (DUONEB) VIAL INH SCH ×6 (02:23→22:07)
[2020-02-01 04:10] VITALS: BP 98/63
--- NOTE | 2020-02-01 04:49 | Pulmonary Progress Note ---
Subjective Time Seen by a Provider: 04:47 Subjective/Events-last exam Persistent SOB. Sepsis Event Evaluation Height, Weight, BMI Height: '" Weight: lbs. oz. kg; 16.01 BMI Method: Exam Exam Vital Signs Date Time Temp Pulse Resp B/P (MAP) Pulse Ox O2 Delivery O2 Flow Rate FiO2 02/01/20 01:00 103 02/01/20 00:17 38.1 02/01/20 00:10 38.1 102 18 105/61 (76) 95 Nasal Cannula 4.00 01/31/20 20:30 Nasal Cannula 4.00 01/31/20 19:49 37.3 108 18 106/68 (81) 96 Nasal Cannula 4.00 01/31/20 19:03 90 Nasal Cannula 4.00 01/31/20 19:00 102 01/31/20 16:48 37.8 110 22 100/65 (77) 96 Nasal Cannula 4.00 01/31/20 14:21 93 Nasal Cannula 4.00 01/31/20 12:39 110 01/31/20 12:14 36.8 124 18 111/62 (78) 96 Nasal Cannula 4.00 01/31/20 10:36 93 Nasal Cannula 4.00 01/31/20 08:12 36.7 116 18 100/65 (77) 98 Nasal Cannula 4.00 01/31/20 07:15 Nasal Cannula 3.00 01/31/20 07:00 114 01/31/20 06:49 93 Nasal Cannula 4.00 I & O 02/01/20 07:00 Intake Total 970 ml Output Total 1150 ml Balance -180 ml Height & Weight Height: '" Weight: lbs. oz. kg; 16.01 BMI Method: General Appearance: No Apparent Distress, Thin Neck: Normal Inspection, Supple Respiratory: Lungs Clear, Normal Breath Sounds, No Respiratory Distress Cardiovascular: Regular Rate, Rhythm, No Edema, No Murmur Capillary Refill: Less Than 3 Seconds Extremity: Normal Inspection, Non Tender, No Pedal Edema Neurologic/Psychiatric: Alert, Oriented x3, Normal Mood/Affect, Motor Weakness Skin: Normal Color, Warm/Dry Results Lab Laboratory Tests 01/31/20 06:27 Assessment/Plan Assessment/Plan Acute on chronic respiratory failure -doing well off vent PNA -- Tm 38.1 -Abx were D/c'd -repeat procalcitonin, CBC, and CXR -Repeat CXR -will need repeat CT scan 8wks after discharge - SVNS Acute occlusion of artery of right lower extremity s/p abdominal aorta gram with TPA via cath anemia -monitor - protonix Tobacco use with probable COPD JENI DENISE DO February 01, 2020 04:49
[2020-02-01 05:55] LABS: BASOPHILS % (AUTO) 0 % (0-10); EOSINOPHILS # (AUTO) 0.4 10^3/uL (0.0-0.3); EOSINOPHILS % (AUTO) 2 % (0-10); HEMATOCRIT 25 % (40-54); HEMOGLOBIN 7.9 G/DL (13.3-17.7); LYMPHOCYTES # (AUTO) 1.5 X 10^3 (1.0-4.0); LYMPHOCYTES % (AUTO) 10 % (12-44); MEAN CORPUSCULAR HEMOGLOBIN 32 PG (25-34); MEAN CORPUSCULAR HGB CONC 32 G/DL (32-36); MEAN CORPUSCULAR VOLUME 101 FL (80-99); MEAN PLATELET VOLUME 9.1 FL (7.4-10.4); MONOCYTES # (AUTO) 0.8 X 10^3 (0.0-1.0); MONOCYTES % (AUTO) 5 % (0-12); NEUTROPHILS # (AUTO) 12.1 X 10^3 (1.8-7.8); NEUTROPHILS % (AUTO) 82 % (42-75); PLATELET COUNT 418 10^3/uL (130-400); RED CELL DISTRIBUTION WIDTH 18.8 % (10.0-14.5); WHITE BLOOD COUNT 14.8 10^3/uL (4.3-11.0)
[2020-02-01] MEDS: FERROUS SULF 325 MG (IRON) TAB PO SCH ×2 (06:31→16:24)
[2020-02-01] MEDS: MULTIVIT W/MINERALS TAB (THERAGRAN M) PO SCH (06:31)
[2020-02-01 08:08] VITALS: BP 112/72
[2020-02-01] MEDS: NICOTINE 14 MG (NICODERM) PATCH TD SCH (08:13)
[2020-02-01] MEDS: PANTOPRAZOLE 40 MG (PROTONIX) VIAL IV SCH (08:13)
[2020-02-01] MEDS: SENNA W/DOCUSATE (SENOKOT S) TABLET PO SCH ×2 (08:13→20:34)
[2020-02-01] MEDS: guaiFENesin (MUCINEX) 600 MG TAB PO SCH ×2 (08:13→20:34)
[2020-02-01] MEDS: DOCUSATE SODIUM 100 MG (COLACE) CAP PO SCH ×2 (08:13→20:34)
[2020-02-01] MEDS: risperiDONE 0.25 MG (RisperDAL) TAB PO SCH ×2 (08:13→20:34)
[2020-02-01] MEDS: FOLIC ACID 1 MG TAB PO SCH (08:13)
[2020-02-01] MEDS: DIGOXIN 0.25 MG (LANOXIN) TAB PO SCH (08:14)
--- NOTE | 2020-02-01 08:53 | Diagnostic Imaging Report ---
Indication: Shortness of breath Comparison: 01/27/2020 Findings: Single view of the chest demonstrates increasing infiltrate developing in the right upper lobe. Stable infiltrates seen in the right base and left upper lobe. There is no pneumothorax. Heart size is stable. There is no pulmonary edema. Central venous catheter on the left is stable. No large effusion seen. Impression: Increasing right upper lobe infiltrate, otherwise unchanged. Dictated by: Dictated on workstation # [id number]
[2020-02-01] MEDS: PATCH REMOVAL TP SCH (08:59)
--- NOTE | 2020-02-01 10:44 | Cardiology Progress Note ---
Subjective Date Seen by Provider: February 01, 2020 Time Seen by Provider: 10:42 Subjective/Events-last exam Patient is laying down in bed, feeling better. No new complaint Review of Systems General: No Chills, No Night Sweats; Fatigue; No Malaise, No Appetite, No Other HEENT: No Head Aches, No Visual Changes, No Eye Pain, No Ear Pain, No Dysphasia, No Sinus Congestion, No Post Nasal Drip, No Sore Throat, No Other Pulmonary: Dyspnea; No Cough, No Pleuritic Chest Pain, No Other Cardiovascular: No: Chest Pain, Palpitations, Orthopnea, Paroxysmal Noc. Dyspnea, Edema, Lt Headedness, Other Objective-Cardiology Exam Last Set of Vital Signs Vital Signs 01/30/20 02/01/20 02/01/20 02:51 08:08 10:25 Temp 36.8 Pulse 116 Resp 18 B/P (MAP) 112/72 (85) Pulse Ox 91 O2 Delivery Nasal Cannula O2 Flow Rate 4.00 FiO2 21 Capillary Refill : Less Than 3 SecondsLess Than 3 Seconds I&O Intake and Output 02/01/20 00:00 Intake Total 1520 ml Output Total 1950 ml Balance -430 ml Intake Oral 1520 ml Output Urine Total 1950 ml # Bowel Movements 1 General: Alert, Oriented X3, Cooperative HEENT: Atraumatic, PERRLA Neck: Supple, No JVD, No Thyromegaly Lungs: Other (bilat rhonchi) Heart: Regular Rate, Normal S1, Normal S2, No Murmurs Abdomen: Normal Bowel Sounds, Soft, No Tenderness, No Hepatosplenomegaly, No Masses Extremities: No Clubbing, No Cyanosis, No Edema, Normal Pulses, No Tenderness/Swelling Skin: No Rashes, No Breakdown, No Significant Lesion Neuro: Normal Speech, Cranial Nerves 3-12 NL Psych/Mental Status: Mental Status NL, Mood NL Results Lab Laboratory Tests 02/01/20 05:43 A/P-Cardiology Admission Diagnosis Acute limb ischemia PAF Pneumonia Tobaccoism Assessment/Plan Chest pain, nonspecific etiology, cardiac catheterization carried out on January 30, 2020 showing mild to moderate coronary artery disease nonobstructive disease. 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 Maintained on Xarelto and Plavix. PAF with RVR on 01/24/20, currently sinus rhythm. Continue on current medications and continue to monitor. Acute respiratory failure, pneumonia and lung mass, continues to improve. 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 Has been on disability Tobaccoism, stopped smoking in December 2019, advised to continue to refrain Anemia of undetermined etiology, managed by the Med Service Clinical Quality Measures DVT/VTE Risk/Contraindication: Risk Factor Score Per Nursin THERESA BELLAMY MD February 01, 2020 10:43 am
[2020-02-01] MEDS ORDERED: predniSONE 20 MG TAB PO ONE (10:45)
[2020-02-01] MEDS: CEFEPIME INJECTION 1,000 MG in WATER (STERILE) FOR INJECTION 10 ML IV SCH ×2 (11:29→16:24)
[2020-02-01 11:56] VITALS: BP 105/71
--- NOTE | 2020-02-01 12:43 | NUR ---
Pulling catheter per Dr. Oliveira at this time.
--- NOTE | 2020-02-01 14:10 | Progress Note - Hospitalist ---
Subjective HPI/CC On Admission Date Seen by Provider: February 01, 2020 Time Seen by Provider: 10:35 Subjective/Events-last exam he reports feeling more short of breath today. He continues to have a cough with sputum production. He did have a fever. He denies any chest pain. He denies any abdominal pain, nausea, or vomiting. He has eaten nearly his entire bag of [employer] candy. Objective Exam Vital Signs Vital Signs Date Time Temp Pulse Resp B/P (MAP) Pulse Ox O2 Delivery O2 Flow Rate FiO2 02/01/20 12:15 113 02/01/20 11:56 37.1 18 105/71 (82) 97 Nasal Cannula 4.00 01/30/20 02:51 21 Capillary Refill : Less Than 3 SecondsLess Than 3 Seconds General Appearance: No Apparent Distress, Chronically ill, Thin Respiratory: Lungs Clear, Decreased Breath Sounds, Other (tachypnea) Cardiovascular: Regular Rate, Rhythm, No Edema, No Murmur Gastrointestinal: Normal Bowel Sounds, Non Tender, Soft Extremity: Normal Inspection, Non Tender, No Pedal Edema Neurologic/Psychiatric: Alert, Oriented x3, Normal Mood/Affect, Motor Weakness Skin: Normal Color, Warm/Dry Results/Procedures Lab Laboratory Tests 02/01/20 05:43 Patient resulted labs reviewed. Imaging: Reviewed Imaging Report Assessment/Plan Assessment and Plan Assess & Plan/Chief Complaint Pneumonia COPD with acute exacerbation Acute respiratory failure with hypoxia Possible left upper lobe mass Tobacco abuse intubated this admission, extubated 01/19 Pulmonology consulted, appreciate assistance Procalcitonin increasing, febrile likely postobstructive pneumonia begin cefepime begin prednisone and continue breathing treatments for COPD Needs repeat CT scan in about a month to evaluate possible left upper lobe mass Debility PT/OT Atrial fibrillation with rapid ventricular response Acute occlusion of artery of right lower extremity due to thromboembolism Cardiology consulted, appreciate assistance Underwent emergent angiogram with thrombolytics and balloon angioplasty 01/12 Continue Plavix and Xarelto Iron deficiency anemia Anemia of chronic disease Folic acid deficiency Hemoglobin stable Iron studies consistent with both iron deficiency and anemia of chronic disease Folic acid level low Continue folic acid and iron supplementation Fecal occult blood positive Will need a colonoscopy at some point, likely outpatient due to respiratory status Severe protein calorie malnutrition Dietary consulted, continue supplements DVT prophylaxis: Already receiving therapeutic anticoagulation ICU delirium, resolved Endotracheally intubated, resolved Diagnosis/Problems Diagnosis/Problems (1) Debility Status: Acute (2) Pneumonia Status: Acute (3) Lung mass Status: Acute (4) Tobacco abuse Status: Chronic (5) Acute respiratory failure with hypoxia Status: Acute (6) Acute occlusion of artery of lower extremity due to thromboembolism Status: Acute (7) Atrial fibrillation with rapid ventricular response Status: Acute (8) Anemia of chronic disease Status: Chronic (9) Folic acid deficiency Status: Chronic (10) Iron deficiency anemia Status: Chronic (11) Severe protein-calorie malnutrition Status: Acute (12) Chest pain Status: Resolved Resolution Date/Time: 02/01/20 @ 14:09 Clinical Quality Measures DVT/VTE Risk/Contraindication: Risk Factor Score Per Nursin CLAU DUONG MD February 01, 2020 14:09
[2020-02-01] MEDS: RIVAROXABAN 20 MG TABLET (XARELTO) PO SCH (16:24)
[2020-02-01 16:31] VITALS: BP 103/66
[2020-02-01 20:29] VITALS: BP 104/69
[2020-02-01] MEDS: oxyCODONE 5 MG/5 ML ORAL SOLN (roxiCODONE) 5 ML UDC PO PRN (20:33)
[2020-02-01] MEDS: BENZONATATE 100 MG (TESSALON) CAPSULE PO PRN (20:34)
[2020-02-02] MEDS: CEFEPIME INJECTION 1,000 MG in WATER (STERILE) FOR INJECTION 10 ML IV SCH ×5 (00:32→23:23)
[2020-02-02 00:33] VITALS: BP 107/65
[2020-02-02] MEDS: RT-ALBUTEROL/IPRATROPIUM 3 ML (DUONEB) VIAL INH SCH ×6 (02:24→21:46)
[2020-02-02 04:41] VITALS: BP 97/62
[2020-02-02] MEDS: predniSONE 20 MG TAB PO SCH (04:48)
[2020-02-02] MEDS: MULTIVIT W/MINERALS TAB (THERAGRAN M) PO SCH (04:49)
[2020-02-02] MEDS: FERROUS SULF 325 MG (IRON) TAB PO SCH ×2 (04:49→17:17)
[2020-02-02] MEDS: FOLIC ACID 1 MG TAB PO SCH (04:49)
[2020-02-02 05:04] LABS: HEMOGLOBIN 7.4 G/DL (13.3-17.7)
--- NOTE | 2020-02-02 06:57 | Pulmonary Progress Note ---
Subjective Time Seen by a Provider: 06:56 Subjective/Events-last exam No complications noted. Sepsis Event Evaluation Height, Weight, BMI Height: '" Weight: lbs. oz. kg; 16.01 BMI Method: Exam Exam Vital Signs Date Time Temp Pulse Resp B/P (MAP) Pulse Ox O2 Delivery O2 Flow Rate FiO2 02/02/20 04:41 37.0 101 20 97/62 (74) 100 02/02/20 02:24 95 Nasal Cannula 4.00 02/02/20 01:00 95 02/02/20 00:33 36.9 100 20 107/65 (79) 97 Nasal Cannula 02/01/20 22:08 97 Nasal Cannula 4.00 02/01/20 21:05 36.4 02/01/20 20:33 36.4 02/01/20 20:30 97 Nasal Cannula 4.00 02/01/20 20:29 36.4 99 18 104/69 (81) 97 Nasal Cannula 4.00 02/01/20 19:05 95 Nasal Cannula 4.00 02/01/20 19:00 99 02/01/20 16:31 37.0 94 20 103/66 (78) 99 Nasal Cannula 4.00 02/01/20 14:39 92 Nasal Cannula 4.00 02/01/20 12:15 113 02/01/20 11:56 37.1 118 18 105/71 (82) 97 Nasal Cannula 4.00 02/01/20 10:25 91 Nasal Cannula 4.00 02/01/20 08:08 36.8 116 18 112/72 (85) 96 Nasal Cannula 4.00 02/01/20 07:30 Nasal Cannula 4.00 02/01/20 07:00 98 I & O 02/02/20 07:00 Intake Total 2700 ml Output Total 2900 ml Balance -200 ml Height & Weight Height: '" Weight: lbs. oz. kg; 16.01 BMI Method: General Appearance: No Apparent Distress, Chronically ill, Thin Neck: Normal Inspection, Supple Respiratory: Lungs Clear, Decreased Breath Sounds, Other (tachypnea) Cardiovascular: Regular Rate, Rhythm, No Edema, No Murmur Capillary Refill: Less Than 3 Seconds Extremity: Normal Inspection, Non Tender, No Pedal Edema Neurologic/Psychiatric: Alert, Oriented x3, Normal Mood/Affect, Motor Weakness Skin: Normal Color, Warm/Dry Results Lab Laboratory Tests 02/01/20 05:43 02/02/20 04:45 Assessment/Plan Assessment/Plan Acute on chronic respiratory failure -doing well off vent PNA -- Tm 38.1 -Continue Cefepime -will need repeat CT scan 8wks after discharge - SVNS Acute occlusion of artery of right lower extremity s/p abdominal aorta gram with TPA via cath anemia -monitor - protonix Tobacco use with probable COPD JENI DENISE DO February 02, 2020 06:57
[2020-02-02 08:00] VITALS: BP 104/69
[2020-02-02] MEDS: SENNA W/DOCUSATE (SENOKOT S) TABLET PO SCH ×2 (09:18→20:16)
[2020-02-02] MEDS: risperiDONE 0.25 MG (RisperDAL) TAB PO SCH ×2 (09:18→20:16)
[2020-02-02] MEDS: PANTOPRAZOLE 40 MG (PROTONIX) VIAL IV SCH (09:18)
[2020-02-02] MEDS: DOCUSATE SODIUM 100 MG (COLACE) CAP PO SCH ×2 (09:18→20:16)
[2020-02-02] MEDS: DIGOXIN 0.25 MG (LANOXIN) TAB PO SCH (09:18)
[2020-02-02] MEDS: NICOTINE 14 MG (NICODERM) PATCH TD SCH (09:19)
[2020-02-02] MEDS: PATCH REMOVAL TP SCH (09:19)
[2020-02-02] MEDS: guaiFENesin (MUCINEX) 600 MG TAB PO SCH ×2 (09:21→20:15)
--- NOTE | 2020-02-02 10:16 | Physical Therapy Daily Note ---
PT Daily Note-Current Subjective Patient agrees to PT. He is alert and oriented on this date. Mental Status Patient Orientation: Normal For Age Attachments: Oxygen Transfers SCALE: Activities may be completed with or without assistive devices. 1-Nukcjxvtbs-clfrwus completes the activity by him/herself with no assistance from a helper. 5-Set-up or Clean-up Assistance-helper sets up or cleans up; patient completes activity. [place] assists only prior to or following the activity. 4-Supervision or Touching Assistance-helper provides verbal cues and/or touching/steadying and/or contact guard assistance as patient completes activity. Assistance may be provided throughout the activity or intermittently. 3-Partial/Moderate Assistance-helper does LESS THAN HALF the effort. [place] lifts, holds or supports trunk or limbs, but provides less than half the effort. 2-Substantial/Maximal Assistance-helper does MORE THAN HALF the effort. [place] lifts or holds trunk or limbs and provides more than half the effort. 8-Wpmbxmmtp-tjjfhu does ALL the effort. Patient does none of the effort to complete the activity. Or, the assistance of 2 or more helpers is required for the patient to complete the activity. If activity was not attempted, code reason: 7-Patient Refused. 9-Not Applicable-not attempted and the patient did not perform the activity before the current illness, exacerbation or injury. 10-Not Attempted due to Environmental Limitations-(lack of equipment, weather restraints, etc.). 88-Not Attempted due to Medical Conditions or Safety Concerns. Roll Left & Right (QC): 5 Lying to Sitting/Side of Bed(Q: 5 Sit to Stand (QC): 4 Chair/Xum-ih-Hyaeg Xfer(QC): 4 Weight Bearing Right Lower Extremity: Right Weight Bearing/Tolerated Left Lower Extremity: Left Weight Bearing/Tolerated Gait Training Does the Patient Walk?: Yes Distance: 50' x 2 Walk 10 feet (QC): 4 Walk 50 ft with 2 Turns(QC): 4 Walk 150 ft (QC): 88 Gait Assistive Device: FWW slow and steady Exercises Supine Ex: Ankle pumps, Quad Set, Heel Slides, Straight leg raise Supine Reps: 10 Seated Therapy Exercises: Ankle pumps, Long arc quads, Hip flexion Seated Reps: 12 Assessment Patient requires seated recovery periods due to SOA, however, is improving with treatment plan. PT to increase activity as tolerated by patient. PT Short Term Goals Short Term Goals Time Frame: February 07, 2020 Roll Left & Right: 3 Sit to lyin Lying to sitting on side of be: 3 Sit to stand: 3 Chair/zzj-ze-yznoh transfer: 3 Toilet transfer: 3 Walk 10 feet: 3 PT Fdc Goals Fdc Goals PT Boiler Coverer Goals Time Frame: Feb 21, 2020 Roll Left & Right (QC): 5 Sit to Lying (QC): 5 Lying-Sitting on Side/Bed(QC): 5 Sit to Stand (QC): 5 Chair/Kmc-ip-Lnzzm Xfer(QC): 5 Toilet Transfer (QC): 5 Car Transfer (QC): 5 Does the Patient Walk: Yes Walk 10 feet (QC): 5 Walk 50ft with 2 Turns (QC): 5 Walk 150 ft (QC): 5 Walking 10ft on Uneven Surface: 5 1 Step (curb) (QC): 5 4 Steps (QC): 5 12 Steps (QC): 5 Picking up an Object (QC): 5 Does the Pt use WC or Scooter?: No Wheel 50 feet with 2 turns (QC: 9 Type: N/A Wheel 150 feet: 9 Type: N/A PT Plan Treatment/Plan Treatment Plan: Continue Plan of Care Treatment Plan: Bed Mobility, Education, Functional Activity [place]ore[place], Functional Strength, Gait, Safety, Therapeutic Exercise, Transfers Treatment Duration: Feb 21, 2020 Frequency: 6 times per week Estimated Hrs Per Day: .25 hour per day Patient and/or Family Agrees t: Yes Time/GCodes Time In: 850 Time Out: 914 Total Billed Treatment Time: 24 Total Billed Treatment 1 visit GT 14 min EX 10 min IDRIS ONEIL PT February 02, 2020 10:16
--- NOTE | 2020-02-02 10:40 | Occupational Ther Daily Note ---
OT Current Status-Daily Note ADL-Treatment Therapy Code Descriptions/Definitions Functional [place] Measure: 0=Not Assessed/NA 4=Minimal Assistance 1=Total Assistance 5=Supervision or Setup 2=Maximal Assistance 6=Modified [place] 3=Moderate Assistance 7=Complete IndependenceSCALE: Activities may be completed with or without assistive devices. 1-Fhtrxjfefh-gjlazqg completes the activity by him/herself with no assistance from a helper. 5-Set-up or Clean-up Assistance-helper sets up or cleans up; patient completes activity. [place] assists only prior to or following the activity. 4-Supervision or Touching Assistance-helper provides verbal cues and/or touching/steadying and/or contact guard assistance as patient completes activity. Assistance may be provided throughout the activity or intermittently. 3-Partial/Moderate Assistance-helper does LESS THAN HALF the effort. [place] lifts, holds or supports trunk or limbs, but provides less than half the effort. 2-Substantial/Maximal Assistance-helper does MORE THAN HALF the effort. [place] lifts or holds trunk or limbs and provides more than half the effort. 1-Yykuoxejv-aamcko does ALL the effort. Patient does none of the effort to complete the activity. Or, the assistance of 2 or more helpers is required for the patient to complete the activity. If activity was not attempted, code reason: 7-Patient Refused. 9-Not Applicable-not attempted and the patient did not perform the activity before the current illness, exacerbation or injury. 10-Not Attempted due to Environmental Limitations-(lack of equipment, weather restraints, etc.). 88-Not Attempted due to Medical Conditions or Safety Concerns. OT Longterm Goals Supervisor [place] Hanging Goals Time Frame: February 13, 2020 Eating (QC): 6 Oral Hygiene (QC): 6 Toileting Hygiene (QC): 6 Shower/Bathe Self (QC): 4 Upper Body Dressing (QC): 5 Lower Body Dressing (QC): 4 On/Off Footwear (QC): 4 Additional Goals: 1-Demonstrate ADL Tasks, 2-Verbalize Understanding, 3- ImproveStrength/[place] 1=Demonstrate adherence to instructed precautions during ADL tasks. 2=Patient will verbalize/demonstrate understanding of assistive devices/modifications for ADL. 3=Patient will improve strength/tolerance for activity to enable patient to perform ADL's. OT Education/Plan Treatment Plan/Plan of Care Patient would benefit from OT for education, treatment and training to promote independence in ADL's, mobility, safety and/or upper extremity function for ADL's. Plan of Care: ADL Retraining, Functional Mobility, UE Funct Exercise/Act Treatment Duration: February 13, 2020 Frequency: 5 times per week Estimated Hrs Per Day: .25 hour per day Rehab Potential: Guarded Time/GCodes Start Time: 10:20 Stop Time: 10:40 Total Time Billed (hr/min): 20 CANDI MITCHELL February 02, 2020 10:40
--- NOTE | 2020-02-02 11:26 | Cardiology Progress Note ---
Subjective Date Seen by Provider: February 02, 2020 Time Seen by Provider: 11:24 Subjective/Events-last exam Patient was seen at bedside, sitting comfortably, denied any active pain. Review of Systems General: No Chills, No Night Sweats, No Fatigue, No Malaise, No Appetite, No Other HEENT: No Head Aches, No Visual Changes, No Eye Pain, No Ear Pain, No Dysphasia, No Sinus Congestion, No Post Nasal Drip, No Sore Throat, No Other Pulmonary: No Dyspnea, No Cough, No Pleuritic Chest Pain, No Other Cardiovascular: No: Chest Pain, Palpitations, Orthopnea, Paroxysmal Noc. Dyspnea, Edema, Lt Headedness, Other Objective-Cardiology Exam Last Set of Vital Signs Vital Signs 01/30/20 02/02/20 02/02/20 02:51 08:00 10:06 Temp 37.3 Pulse 105 Resp 16 B/P (MAP) 104/69 (81) Pulse Ox 96 O2 Delivery Nasal Cannula O2 Flow Rate 4.00 FiO2 21 Capillary Refill : Less Than 3 SecondsNONE I&O Intake and Output 02/02/20 00:00 Intake Total 2300 ml Output Total 3225 ml Balance -925 ml Intake Oral 2300 ml Output Urine Total 3075 ml Post Void Residual 150 ml # Bowel Movements 2 General: Alert, Oriented X3, Cooperative HEENT: Atraumatic, PERRLA Neck: Supple, No JVD, No Thyromegaly Lungs: Other (bilat rhonchi) Heart: Regular Rate, Normal S1, Normal S2, No Murmurs Abdomen: Normal Bowel Sounds, Soft, No Tenderness, No Hepatosplenomegaly, No Masses Extremities: No Clubbing, No Cyanosis, No Edema, Normal Pulses, No Tenderness/Swelling Skin: No Rashes, No Breakdown, No Significant Lesion Neuro: Normal Speech, Cranial Nerves 3-12 NL Psych/Mental Status: Mental Status NL, Mood NL Results Lab Laboratory Tests 02/02/20 04:45 A/P-Cardiology Admission Diagnosis Acute limb ischemia PAF Pneumonia Tobaccoism Assessment/Plan Chest pain, nonspecific etiology, cardiac catheterization carried out on January 30, 2020 showing mild to moderate coronary artery disease nonobstructive disease. Chest pain is unlikely to be cardiac, recommend EGD Anemia, slightly worse, may benefit from blood transfusion, will need EGD Acute limb ischemia due to thromboembolic occlusion of R distal SFA, and large thrombus in the R proximal SFA, treated with TNK and heparin and PORTER BAGGAGE with caodaism of antegrade flow and with R blue-toe syndrome. Maintained on Xarelto and Plavix. PAF with RVR on 01/24/20, currently sinus rhythm. Continue on current medications and continue to monitor. Acute respiratory failure, pneumonia and lung mass, continues to improve. 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 Has been on disability Tobaccoism, stopped smoking in December 2019, advised to continue to refrain Anemia of undetermined etiology, managed by the Med Service Clinical Quality Measures DVT/VTE Risk/Contraindication: Risk Factor Score Per Nursin THERESA BELLAMY MD February 02, 2020 11:26
[2020-02-02 12:00] VITALS: BP 99/66
--- NOTE | 2020-02-02 12:57 | Occupational Ther Daily Note ---
OT Current Status-Daily Note Subjective Pt alert, sitting in recliner. Pt stated that he had ambulated to the door and back with therapy. Pt agrees to OT. No c/o pain. Nrsg stated that bath was already given. Mental Status/Objective Patient Orientation: Person, Place, Time, Situation Attachments: IV ADL-Treatment Therapy Code Descriptions/Definitions Functional [place] Measure: 0=Not Assessed/NA 4=Minimal Assistance 1=Total Assistance 5=Supervision or Setup 2=Maximal Assistance 6=Modified [place] 3=Moderate Assistance 7=Complete IndependenceSCALE: Activities may be completed with or without assistive devices. 2-Uvnpgrbjuh-bcgjmjq completes the activity by him/herself with no assistance from a helper. 5-Set-up or Clean-up Assistance-helper sets up or cleans up; patient completes activity. [place] assists only prior to or following the activity. 4-Supervision or Touching Assistance-helper provides verbal cues and/or touc danny/steadying and/or contact guard assistance as patient completes activity. Assistance may be provided throughout the activity or intermittently. 3-Partial/Moderate Assistance-helper does LESS THAN HALF the effort. [place] lifts, holds or supports trunk or limbs, but provides less than half the effort. 2-Substantial/Maximal Assistance-helper does MORE THAN HALF the effort. [place] lifts or holds trunk or limbs and provides more than half the effort. 5-Xnaiyfqzk-oeqzdz does ALL the effort. Patient does none of the effort to complete the activity. Or, the assistance of 2 or more helpers is required for the patient to complete the activity. If activity was not attempted, code reason: 7-Patient Refused. 9-Not Applicable-not attempted and the patient did not perform the activity before the current illness, exacerbation or injury. 10-Not Attempted due to Environmental Limitations-(lack of equipment, weather restraints, etc.). 88-Not Attempted due to Medical Conditions or Safety Concerns. Oral Hygiene (QC): 6 (After supplies are given, pt able to complete by self.) Other Treatment Pt able complete sit to stand with min A. Min A to CGA for ambulation from recliner to bed then EOB to supine mod I. Pt completed B UE strengthening exercises against gravity after oral care. Pt able to remember 3 out of 4 exercises. 1 set 15 reps. After session, pt lying in bed with call light/phone in reach. All needs met in room. OT Longterm Goals Tomb Maker Helper Goals Time Frame: February 13, 2020 Eating (QC): 6 Oral Hygiene (QC): 6 Toileting Hygiene (QC): 6 Shower/Bathe Self (QC): 4 Upper Body Dressing (QC): 5 Lower Body Dressing (QC): 4 On/Off Footwear (QC): 4 Additional Goals: 1-Demonstrate ADL Tasks, 2-Verbalize Understanding, 3- ImproveStrength/[place] 1=Demonstrate adherence to instructed precautions during ADL tasks. 2=Patient will verbalize/demonstrate understanding of assistive devices/mod ifications for ADL. 3=Patient will improve strength/tolerance for activity to enable patient to perform ADL's. OT Education/Plan Problem List/Assessment Assessment: Decreased Activ Tolerance, Decreased UE Strength, Impaired Self- Care Skills, Restricted Funct UE ROM Discharge Recommendations Plan/Recommendations: Continue POC Treatment Plan/Plan of Care Patient would benefit from OT for education, treatment and training to promote independence in ADL's, mobility, safety and/or upper extremity function for ADL's. Plan of Care: ADL Retraining, Functional Mobility, UE Funct Exercise/Act Treatment Duration: February 13, 2020 Frequency: 5 times per week Estimated Hrs Per Day: .25 hour per day Rehab Potential: Guarded Time/GCodes Start Time: 10:20 Stop Time: 10:40 Total Time Billed (hr/min): 20 Billed Treatment Time 1 visit-FA 1 (20 min) CANDI MITCHELL February 02, 2020 12:57
[2020-02-02 16:53] VITALS: BP 112/66
[2020-02-02] MEDS: RIVAROXABAN 20 MG TABLET (XARELTO) PO SCH (17:17)
[2020-02-02 19:26] VITALS: BP 104/61
[2020-02-02] MEDS: oxyCODONE 5 MG/5 ML ORAL SOLN (roxiCODONE) 5 ML UDC PO PRN (20:16)
[2020-02-03 00:12] VITALS: BP 107/61
[2020-02-03] MEDS: RT-ALBUTEROL/IPRATROPIUM 3 ML (DUONEB) VIAL INH SCH ×6 (02:07→21:27)
[2020-02-03 03:32] VITALS: BP 102/65
[2020-02-03] MEDS: ACETAMINOPHEN 325 MG TABLET PO PRN (03:34)
[2020-02-03] MEDS: BENZONATATE 100 MG (TESSALON) CAPSULE PO PRN (03:41)
[2020-02-03] MEDS: CEFEPIME INJECTION 1,000 MG in WATER (STERILE) FOR INJECTION 10 ML IV SCH ×4 (05:12→23:42)
[2020-02-03] MEDS: MULTIVIT W/MINERALS TAB (THERAGRAN M) PO SCH (06:09)
[2020-02-03] MEDS: FERROUS SULF 325 MG (IRON) TAB PO SCH ×2 (06:09→16:51)
[2020-02-03] MEDS: predniSONE 20 MG TAB PO SCH (06:09)
--- NOTE | 2020-02-03 06:55 | Pulmonary Progress Note ---
Subjective Time Seen by a Provider: 06:55 Sepsis Event Evaluation Height, Weight, BMI Height: '" Weight: lbs. oz. kg; 16.01 BMI Method: Exam Exam Vital Signs Date Time Temp Pulse Resp B/P (MAP) Pulse Ox O2 Delivery O2 Flow Rate FiO2 02/03/20 04:00 37.2 02/03/20 03:34 37.7 02/03/20 03:32 37.7 114 22 102/65 (77) 95 Nasal Cannula 4.00 02/03/20 02:07 91 Nasal Cannula 4.00 02/03/20 01:00 100 02/03/20 00:12 37.3 96 20 107/61 (76) 96 Nasal Cannula 4.00 02/02/20 21:46 92 Nasal Cannula 4.00 02/02/20 20:00 95 Room Air 4.00 02/02/20 19:26 37.2 92 18 104/61 (75) 94 Nasal Cannula 4.00 02/02/20 19:00 92 02/02/20 18:23 92 Nasal Cannula 4.00 02/02/20 16:53 37.0 106 20 112/66 (81) 96 Nasal Cannula 4.00 02/02/20 14:02 93 Nasal Cannula 4.00 02/02/20 12:11 100 02/02/20 12:00 37.2 108 16 99/66 (77) 98 Room Air 02/02/20 10:06 96 Nasal Cannula 4.00 02/02/20 08:00 95 Room Air 4.00 02/02/20 08:00 37.3 105 16 104/69 (81) 95 Room Air 02/02/20 07:00 102 I & O 02/03/20 07:00 Intake Total 1880 ml Output Total 1800 ml Balance 80 ml Height & Weight Height: '" Weight: lbs. oz. kg; 16.01 BMI Method: General Appearance: No Apparent Distress, Chronically ill, Thin Neck: Normal Inspection, Supple Respiratory: Lungs Clear, Decreased Breath Sounds, Other (tachypnea) Cardiovascular: Regular Rate, Rhythm, No Edema, No Murmur Capillary Refill: NONE Extremity: Normal Inspection, Non Tender, No Pedal Edema Neurologic/Psychiatric: Alert, Oriented x3, Normal Mood/Affect, Motor Weakness Skin: Normal Color, Warm/Dry Results Lab Laboratory Tests 02/02/20 04:45 Assessment/Plan Assessment/Plan Acute on chronic respiratory failure -doing well off vent PNA -- Tm 38.1 -Continue Cefepime -will need repeat CT scan 8wks after discharge - SVNS Acute occlusion of artery of right lower extremity s/p abdominal aorta gram with TPA via cath anemia -monitor - protonix Tobacco use with probable COPD JENI DENISE DO February 03, 2020 06:55
--- NOTE | 2020-02-03 07:28 | NUR ---
labs drawn by this RN through brown port of his central line. This is the only port of the central line that is working. This RN will cont to monitor this patient throughout the remainder of this shift.
[2020-02-03 07:39] LABS: BASOPHILS % (AUTO) 0 % (0-10); EOSINOPHILS # (AUTO) 0.2 10^3/uL (0.0-0.3); EOSINOPHILS % (AUTO) 1 % (0-10); HEMATOCRIT 25 % (40-54); LYMPHOCYTES % (AUTO) 7 % (12-44); MEAN CORPUSCULAR HEMOGLOBIN 32 PG (25-34); MEAN CORPUSCULAR HGB CONC 32 G/DL (32-36); MEAN CORPUSCULAR VOLUME 101 FL (80-99); MEAN PLATELET VOLUME 8.9 FL (7.4-10.4); MONOCYTES % (AUTO) 6 % (0-12); NEUTROPHILS # (AUTO) 13.1 X 10^3 (1.8-7.8); NEUTROPHILS % (AUTO) 86 % (42-75); PLATELET COUNT 413 10^3/uL (130-400); RED CELL DISTRIBUTION WIDTH 18.3 % (10.0-14.5); WHITE BLOOD COUNT 15.3 10^3/uL (4.3-11.0)
[2020-02-03 07:51] LABS: ALBUMIN 2.5 GM/DL (3.2-4.5); CHLORIDE 102 MMOL/L (98-107); POTASSIUM 4.3 MMOL/L (3.6-5.0); SODIUM 136 MMOL/L (135-145)
[2020-02-03 07:53] LABS: GLUCOSE 111 MG/DL (70-105); TOTAL PROTEIN 5.8 GM/DL (6.4-8.2)
[2020-02-03 07:55] LABS: BILIRUBIN,TOTAL 0.2 MG/DL (0.1-1.0); CARBON DIOXIDE 27 MMOL/L (21-32)
[2020-02-03 07:57] LABS: ALKALINE PHOSPHATASE 107 U/L (40-136); CREATININE SERUM 0.49 MG/DL (0.60-1.30); GFR ESTIMATED > 60
[2020-02-03 07:58] LABS: BUN/CREATININE RATIO 31
[2020-02-03 08:00] LABS: ALANINE AMINOTRANSFERASE 38 U/L (0-55)
[2020-02-03] MEDS: PATCH REMOVAL TP SCH (08:15)
[2020-02-03] MEDS: DOCUSATE SODIUM 100 MG (COLACE) CAP PO SCH ×2 (08:15→20:03)
[2020-02-03] MEDS: NICOTINE 14 MG (NICODERM) PATCH TD SCH (08:15)
[2020-02-03] MEDS: FOLIC ACID 1 MG TAB PO SCH (08:15)
[2020-02-03] MEDS: guaiFENesin (MUCINEX) 600 MG TAB PO SCH ×2 (08:15→20:03)
[2020-02-03] MEDS: PANTOPRAZOLE 40 MG (PROTONIX) TAB PO SCH (08:16)
[2020-02-03] MEDS: risperiDONE 0.25 MG (RisperDAL) TAB PO SCH ×2 (08:16→20:03)
[2020-02-03] MEDS: SENNA W/DOCUSATE (SENOKOT S) TABLET PO SCH ×2 (08:16→20:03)
--- NOTE | 2020-02-03 08:18 | NUR ---
nicotine patch to right upper arm this a.m.
[2020-02-03 08:19] LABS: ANISOCYTOSIS MODERATE; HYPOCHROMASIA SLIGHT; LYMPHOCYTES % (MANUAL) 9 %; MONOCYTES % (MANUAL) 8 %; NEUTROPHILS % (MANUAL) 83 %; POIKILOCYTOSIS SLIGHT; POLYCHROMASIA SLIGHT; TOXIC GRANULATION/VACUOLAZATIO 2+
[2020-02-03] MEDS: morphine INJ 4 MG/ML 1 ML (VIAL/SYRINGE) IVP PRN ×2 (08:26→20:03)
--- NOTE | 2020-02-03 08:29 | Cardiology Progress Note ---
Subjective Date Seen by Provider: February 03, 2020 Time Seen by Provider: 08:28 Subjective/Events-last exam Patient is laying down in bed, complaining of cough with sputum production Review of Systems General: No Chills, No Night Sweats; Fatigue; No Malaise, No Appetite, No Other HEENT: No Head Aches, No Visual Changes, No Eye Pain, No Ear Pain, No Dysphasia, No Sinus Congestion, No Post Nasal Drip, No Sore Throat, No Other Pulmonary: Dyspnea, Cough; No Pleuritic Chest Pain, No Other Cardiovascular: No: Chest Pain, Palpitations, Orthopnea, Paroxysmal Noc. Dyspnea, Edema, Lt Headedness, Other Focused Exam Lactate Level 02/03/20 07:28: Lactic Acid Level 1.15 Lactic Acid Level Laboratory Tests Test 02/03/20 07:28 Lactic Acid Level 1.15 MMOL/L (0.50-2.00) Objective-Cardiology Exam Last Set of Vital Signs Vital Signs 02/03/20 02/03/20 02/03/20 02/03/20 02/03/20 03:32 04:00 06:53 06:56 07:00 Temp 37.2 Pulse 99 Resp 22 B/P (MAP) 102/65 (77) Pulse Ox 90 O2 Delivery Nasal Cannula O2 Flow Rate 4.00 FiO2 4 Capillary Refill : Less Than 3 SecondsNONE I&O Intake and Output 02/02/20 23:59 Intake Total 2880 ml Output Total 3300 ml Balance -420 ml Intake Oral 2880 ml Output Urine Total 3300 ml # Bowel Movements 1 General: Alert, Oriented X3, Cooperative HEENT: Atraumatic, PERRLA Neck: Supple, No JVD, No Thyromegaly Lungs: Other (bilat rhonchi) Heart: Regular Rate, Normal S1, Normal S2, No Murmurs Abdomen: Normal Bowel Sounds, Soft, No Tenderness, No Hepatosplenomegaly, No Masses Extremities: No Clubbing, No Cyanosis, No Edema, Normal Pulses, No Tenderness/Swelling Skin: No Rashes, No Breakdown, No Significant Lesion Neuro: Normal Speech, Cranial Nerves 3-12 NL Psych/Mental Status: Mental Status NL, Mood NL Results Lab Laboratory Tests 02/03/20 07:28 A/P-Cardiology Admission Diagnosis Acute limb ischemia PAF Pneumonia Tobaccoism (1) Chest pain Status: Resolved (2) Debility Status: Acute (3) Lung mass Status: Acute (4) Tobacco abuse Status: Chronic (5) Acute occlusion of artery of lower extremity due to thromboembolism Status: Acute (6) Atrial fibrillation with rapid ventricular response Status: Acute (7) Anemia of chronic disease Status: Chronic (8) Folic acid deficiency Status: Chronic (9) Iron deficiency anemia Status: Chronic (10) Severe protein-calorie malnutrition Status: Acute Assessment/Plan Chest pain, nonspecific etiology, cardiac catheterization carried out on January 30, 2020 showing mild to moderate coronary artery disease nonobstructive disease. Chest pain is unlikely to be cardiac, recommend EGD Anemia, managed by primary care team, H&H is monitored, recommend EGD Acute limb ischemia due to thromboembolic occlusion of R distal SFA, and large thrombus in the R proximal SFA, treated with TNK and heparin and FLORAL ASSOCIATE with bahai of antegrade flow and with R blue-toe syndrome. Maintained on Xarelto PAF with RVR on 01/24/20, currently sinus rhythm. Continue on current medications and continue to monitor. Acute respiratory failure, pneumonia and lung mass, continues to improve. 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 Has been on disability Tobaccoism, stopped smoking in December 2019, advised to continue to refrain Anemia of undetermined etiology, managed by the Med Service Clinical Quality Measures DVT/VTE Risk/Contraindication: Risk Factor Score Per Nursin THERESA BELLAMY MD February 03, 2020 08:29
--- NOTE | 2020-02-03 09:29 | Therapy Team Discharge Summary ---
Therapy Discharge Summary Discharge Recommendations Date of Discharge Physical Therapy Patient transferring to ARU on this date for continued care. Patient has made very slow progress, however, is striving toward goals set. Patient is SBA with bed mobility and minimal assist for transfers. Patient ambulates 25' with FWW and minimal assist. He continues to require O2 and fatigues quickly with minimal activity. Patient will greatly benefit from ARU to continue address goals to return to home at maximum LOF. Occupational Therapy Decreased Activ Tolerance, Decreased UE Strength, Impaired Self-Care Skills, Restricted Funct UE ROM PT [place] Goals Detention Goals PT [place] Goals Time Frame: Feb 21, 2020 Roll Left to Right (QC): 5 Sit to Lying (QC): 5 Lying-Sitting on Side/Bed(QC): 5 Sit to Stand (QC): 5 Chair/Kbq-tf-Fuefe Xfer(QC): 5 Car Transfer (QC): 5 Does the Patient Walk: Yes Walk 10 feet (QC): 5 Walk 10ft-Uneven Surface(QC): 5 Walk 50ft with 2 Turns (QC): 5 Walk 150 ft (QC): 5 Does the Pt use WC or Scooter?: No Wheel 50 feet with 2 turns (QC: 9 1 Step (curb) (QC): 5 4 Steps (QC): 5 12 Steps (QC): 5 Picking up an Object (QC): 5 OT Detention Goals [place] Goals Time Frame: February 13, 2020 Eating (QC): 6 Oral Hygiene (QC): 6 Shower/Bathe Self (QC): 4 Upper Body Dressing (QC): 5 Lower Body Dressing (QC): 4 On/Off Footwear (QC): 4 Toileting Hygiene (QC): 6 Toilet/Commode Transfer (QC): 5 Additional Goals: 1-Demonstrate ADL Tasks, 2-Verbalize Understanding, 3- ImproveStrength/[place] 1=Demonstrate adherence to instructed precautions during ADL tasks. 2=Patient will verbalize/demonstrate understanding of assistive devices/modifications for ADL. 3=Patient will improve strength/tolerance for activity to enable patient to perform ADL's. IDRIS ONEIL PT February 03, 2020 09:29
[2020-02-03] MEDS: DIGOXIN 0.25 MG (LANOXIN) TAB PO SCH (10:43)
--- NOTE | 2020-02-03 11:13 | Occupational Ther Daily Note ---
OT Current Status-Daily Note Subjective Pt laying in bed with eyes closed, easily awoken. Pt initially declined OT stating he would like to rest but then agreed to OT session with focus on ADLs. He did not verbalize any pain. Mental Status/Objective Attachments: Oxygen, Telemetry ADL-Treatment Therapy Code Descriptions/Definitions Functional Carter Measure: 0=Not Assessed/NA 4=Minimal Assistance 1=Total Assistance 5=Supervision or Setup 2=Maximal Assistance 6=Modified Carter 3=Moderate Assistance 7=Complete IndependenceSCALE: Activities may be completed with or without assistive devices. 6-Mnbbbeyqeo-veuqjcz completes the activity by him/herself with no assistance from a helper. 5-Set-up or Clean-up Assistance-helper sets up or cleans up; patient completes activity. Quinn assists only prior to or following the activity. 4-Supervision or Touching Assistance-helper provides verbal cues and/or touching/steadying and/or contact guard assistance as patient completes activity. Assistance may be provided throughout the activity or intermittently. 3-Partial/Moderate Assistance-helper does LESS THAN HALF the effort. Quinn lifts, holds or supports trunk or limbs, but provides less than half the effort. 2-Substantial/Maximal Assistance-helper does MORE THAN HALF the effort. Quinn lifts or holds trunk or limbs and provides more than half the effort. 1-Kgbgotthl-mmphmm does ALL the effort. Patient does none of the effort to complete the activity. Or, the assistance of 2 or more helpers is required for the patient to complete the activity. If activity was not attempted, code reason: 7-Patient Refused. 9-Not Applicable-not attempted and the patient did not perform the activity before the current illness, exacerbation or injury. 10-Not Attempted due to Environmental Limitations-(lack of equipment, weather restraints, etc.). 88-Not Attempted due to Medical Conditions or Safety Concerns. Oral Hygiene (QC): 6 (Pt able to complete by himself once supplies were given to him.) Other Treatment Pt laying in bed, declined OOB activities. He agreed to ADL session at bed level. Pt brushed his teeth and washed his face. Pt's sheets and gown were wet from washcloths that were laying beside pt. He agreed to changing his hospital gown, requiring min A with typing/untying gown and management of telemetry and O2 lines. OT provided pt with dry sheets. Pt demo'd 4 of 4 exercises from previous session completing x10 reps each. OT educated pt to complete exercises during the day, he verbalized understanidng. Pt declined further ADLs at this time. Post OT session, pt laying in bed, call light in reach and all needs met. Education OT Patient Education: Correct positioning, Energy conservation, Modified ADL techniques, Progress toward Goal/Update tx plan, Purpose of tx/functional activities Teaching Recipient: Patient Teaching Methods: Discussion Response to Teaching: Verbalize Understanding OT Cigar Head Holer Goals Cigar Head Holer Goals Time Frame: February 13, 2020 Eating (QC): 6 Oral Hygiene (QC): 6 Toileting Hygiene (QC): 6 Shower/Bathe Self (QC): 4 Upper Body Dressing (QC): 5 Lower Body Dressing (QC): 4 On/Off Footwear (QC): 4 Additional Goals: 1-Demonstrate ADL Tasks, 2-Verbalize Understanding, 3- ImproveStrength/Lorena 1=Demonstrate adherence to instructed precautions during ADL tasks. 2=Patient will verbalize/demonstrate understanding of assistive devices/modifications for ADL. 3=Patient will improve strength/tolerance for activity to enable patient to perform ADL's. OT Education/Plan Problem List/Assessment Assessment: Decreased Activ Tolerance, Decreased UE Strength, Impaired I ADL's, Impaired Self-Care Skills Discharge Recommendations Plan/Recommendations: Continue POC Treatment Plan/Plan of Care Patient would benefit from OT for education, treatment and training to promote i ndependence in ADL's, mobility, safety and/or upper extremity function for ADL's. Plan of Care: ADL Retraining, Functional Mobility, UE Funct Exercise/Act Treatment Duration: February 13, 2020 Frequency: 5 times per week Estimated Hrs Per Day: .25 hour per day Rehab Potential: Guarded Time/GCodes Start Time: 10:50 Stop Time: 11:05 Total Time Billed (hr/min): 15 Billed Treatment Time 1, ADL ASH ANTONY OT February 03, 2020 11:13
--- NOTE | 2020-02-03 11:31 | Physical Therapy Daily Note ---
PT Daily Note-Current Subjective Patient is not going to rehab today, DC from therapy will be postponed until then. Patient in bed pre tx, agrees reluctantly to PT, has no complaints of pain. Appearance Patient in recliner post tx with nurse call, phone, tray, all needs met, chair alarm on. Mental Status Patient Orientation: Person, Place, Situation Attachments: Oxygen Transfers SCALE: Activities may be completed with or without assistive devices. 9-Arnnnpyjrw-lwegoyt completes the activity by him/herself with no assistance from a helper. 5-Set-up or Clean-up Assistance-helper sets up or cleans up; patient completes activity. Braddock assists only prior to or following the activity. 4-Supervision or Touching Assistance-helper provides verbal cues and/or touching/steadying and/or contact guard assistance as patient completes activity. Assistance may be provided throughout the activity or intermittently. 3-Partial/Moderate Assistance-helper does LESS THAN HALF the effort. Braddock lif ts, holds or supports trunk or limbs, but provides less than half the effort. 2-Substantial/Maximal Assistance-helper does MORE THAN HALF the effort. Braddock lifts or holds trunk or limbs and provides more than half the effort. 8-Zzdtlkyjl-bgndwf does ALL the effort. Patient does none of the effort to complete the activity. Or, the assistance of 2 or more helpers is required for the patient to complete the activity. If activity was not attempted, code reason: 7-Patient Refused. 9-Not Applicable-not attempted and the patient did not perform the activity before the current illness, exacerbation or injury. 10-Not Attempted due to Environmental Limitations-(lack of equipment, weather restraints, etc.). 88-Not Attempted due to Medical Conditions or Safety Concerns. Roll Left & Right (QC): 6 Lying to Sitting/Side of Bed(Q: 6 Sit to Stand (QC): 3 Chair/Ars-dk-Jptuz Xfer(QC): 4 Min assist for sit to stand from sit of bed, occasional cues for direction. Weight Bearing Right Lower Extremity: Right Weight Bearing/Tolerated Left Lower Extremity: Left Weight Bearing/Tolerated Gait Training Distance: 30' Walk 10 feet (QC): 3 Gait Assistive Device: FWW CGA, slow but steady ambulation, patient refuses to ambulate in the hallway, agrees to ambulate to the window in his room and back to the recliner. Patient states he is not feeling well today and doesn't think he can go as far as yesterday. Exercises Seated Therapy Exercises: Ankle pumps, Long arc quads, Hip flexion Seated Reps: 20 Treatments bed mobility and transfers, ambulation, functional strengthening Assessment Current Status: Poor Progress decreased distance of ambulation PT Short Term Goals Short Term Goals Time Frame: February 07, 2020 Roll Left & Right: 3 Sit to lyin Lying to sitting on side of be: 3 Sit to stand: 3 Chair/vui-tc-wccgx transfer: 3 Toilet transfer: 3 Walk 10 feet: 3 PT Nursing Home Goals Nursing Home Goals PT Nursing Home Goals Time Frame: Feb 21, 2020 Roll Left & Right (QC): 5 Sit to Lying (QC): 5 Lying-Sitting on Side/Bed(QC): 5 Sit to Stand (QC): 5 Chair/Hkc-zl-Wovpb Xfer(QC): 5 Toilet Transfer (QC): 5 Car Transfer (QC): 5 Does the Patient Walk: Yes Walk 10 feet (QC): 5 Walk 50ft with 2 Turns (QC): 5 Walk 150 ft (QC): 5 Walking 10ft on Uneven Surface: 5 1 Step (curb) (QC): 5 4 Steps (QC): 5 12 Steps (QC): 5 Picking up an Object (QC): 5 Does the Pt use WC or Scooter?: No Wheel 50 feet with 2 turns (QC: 9 Type: N/A Wheel 150 feet: 9 Type: N/A PT Plan Problem List Problem List: Activity Tolerance, Functional Strength, Safety, Balance, Gait, Transfer, Bed Mobility Treatment/Plan Treatment Plan: Continue Plan of Care Treatment Plan: Bed Mobility, Education, Functional Activity Lorena, Functional Strength, Gait, Safety, Therapeutic Exercise, Transfers Treatment Duration: Feb 21, 2020 Frequency: 6 times per week Estimated Hrs Per Day: .25 hour per day Patient and/or Family Agrees t: Yes Safety Risks/Education Patient Education: Gait Training, Transfer Techniques, Correct Positioning, Safety Issues Teaching Recipient: Patient Teaching Methods: Demonstration, Discussion Response to Teaching: Reinforcement Needed Time/GCodes Time In: 1110 Time Out: 1124 Total Billed Treatment Time: 14 Total Billed Treatment 1 visit FA MARKO WOOD PT February 03, 2020 11:31
--- NOTE | 2020-02-03 11:54 | NUR ---
DR. MIJARES IN TO SEE PATIENT AT THIS TIME, NEW ORDERS RECEIVED SEE CHART FOR DETAILS. ENSURE TO BE GIVEN TO PATIENT HE WANTS IT. EGD SCHEDULED FOR 02/04/[address] MIJARES.
[2020-02-03 12:00] VITALS: BP 97/63
--- NOTE | 2020-02-03 12:27 | Consultation - Surgery ---
History of Present Illness History of Present Illness Patient Consulted On(elvis/time) 02/03/20 12:15 Time Seen by Provider: 11:54 History of Present Illness Surgery asked to consult regarding anemia. HPI: Pt is a 59 yo male who has had a long protracted course in the hospital. He was initially admitted with respiratory failure, pneumonia, embolic occlusion in leg and is slowly improving. He continues to have some shortness of breath and is using a nasal cannula. He denies abdominal pain and admits to seeing some "dark" stools. States he has never had a colonoscopy or EGD. He is taking blood thinners because of his recent embolic event and atherosclerotic event. Allergies and Home Medications Allergies Coded Allergies: No Known Drug Allergies (Verified , 07/11/09) Home Medications Multivitamin 1 Each Tablet, 1 EACH PO DAILY, (Reported) Naproxen Sodium 220 Mg Capsule, 440 MG PO Q8H PRN for PAIN-MILD (1-4), (Reported) Patient Home Medication List Home Medication List Reviewed: Yes Past Aulogmj-Blbvhc-Vavefg Hx Patient Social History Alcohol Use: Regular Use Recreational Drug Use: No Smoking Status: Former Smoker Type Used: Cigarettes Recent Hopitalizations: No Immunizations Up To Date PED Vaccines UTD: Yes Seasonal Allergies Seasonal Allergies: No Surgeries History of Surgeries: Yes Surgeries: Orthopedic Respiratory History of Respiratory Disorde: Yes Respiratory Disorders: COPD Cardiovascular History of Cardiac Disorders: Yes Cardiac Disorders: Atrial Fibrillation, Peripheral Vascular Neurological History of Neurological Disord: Yes Reproductive System Sexually Transmitted Disease: No Genitourinary History of Genitourinary Disor: No Gastrointestinal History of Gastrointestinal Di: No Musculoskeletal History of Musculoskeletal Dis: No Endocrine History of Endocrine Disorders: No HEENT History of HEENT Disorders: No Loss of Vision: Denies Hearing Impairment: Denies Cancer History of Cancer: No Psychosocial History of Psychiatric Problem: No Integumentary History of Skin or Integumenta: No Blood Transfusions History of Blood Disorders: No Adverse Reaction to a Blood Tr: No Family Medical History Significant Family History: Heart Disease, GI Disease (Mother had colostomy....pt unsure why), Hypertension Review of Systems-General Constitutional: malaise, weakness, weight loss (pt states he has lost over 100lbs) EENTM: epistaxis (pt has dried black blood in right nostril); No blurred vision, No double vision, No mouth pain, No mouth swelling Respiratory: dyspnea on exertion, phlegm, short of breath; No stridor Cardiovascular: No chest pain; Hx of Intervention, palpitations Gastrointestinal: No abdominal pain, No jaundice, No nausea, No vomiting Genitourinary: No dysuria, No frequency, No hematuria Musculoskeletal: joint pain, joint swelling, muscle stiffness, muscle cramps, muscle weakness Skin: dryness; No hx of skin cancer Psychiatric/Neurological: Denies Anxiety, Denies Depressed, Denies Seizure; Weakness Other Prior to admission pt has never had any abnormal bleeding or bruising Physical Exam-General Problems Physical Exam Vital Signs Vital Signs - First Documented 01/28/20 01/28/20 00:00 19:08 Temp 36.0 Pulse 81 Resp 21 B/P (MAP) 141/78 (99) Pulse Ox 93 O2 Delivery Nasal Cannula O2 Flow Rate 2.00 FiO2 21 Capillary Refill : Less Than 3 SecondsNONE General Appearance: no apparent distress, thin (cachectic) Eyes: Bilateral Eye PERRL, Bilateral Eye EOMI HEENT: pharynx normal; No scleral icterus (R), No scleral icterus (L); other (dried blood in right nostril) Neck: non-tender, supple Respiratory: chest non-tender, no respiratory distress, no accessory muscle use, decreased breath sounds (left more than right), crackles (left base) Cardiovascular: regular rate, rhythm, systolic murmur Gastrointestinal: normal bowel sounds, soft, no organomegaly, no pulsatile mass, hernia (incarcerated LIH) Back: no CVA tenderness, no vertebral tenderness Extremities: no pedal edema, no calf tenderness 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/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 tested, alert, normal mood/affect, oriented x 3 Skin: normal color, warm/dry Lymphatic: no adenopathy (neck, axilla or groin) Data Review Labs Laboratory Tests 02/03/20 07:28: White Blood Count 15.3H, Red Blood Count 2.50L, Hemoglobin 8.0L, Hematocrit 25L, Mean Corpuscular Volume 101H, Mean Corpuscular Hemoglobin 32, Mean Corpuscular Hemoglobin Concent 32, Red Cell Distribution Width 18.3H, Platelet Count 413H, Mean Platelet Volume 8.9, Neutrophils (%) (Auto) 86H, Lymphocytes (%) (Auto) 7L, Monocytes (%) (Auto) 6, Eosinophils (%) (Auto) 1, Basophils (%) (Auto) 0, Neutrophils # (Auto) 13.1H, Lymphocytes # (Auto) 1.0, Monocytes # (Auto) 1.0, Eosinophils # (Auto) 0.2, Basophils # (Auto) 0.0, Neutrophils % (Manual) 83, Lymphocytes % (Manual) 9, Monocytes % (Manual) 8, Toxic Granulation 2+, Polychromasia SLIGHT, Hypochromasia SLIGHT, Poikilocytosis SLIGHT, Anisocytosis MODERATE, Macrocytosis SLIGHT, Sodium Level 136, Potassium Level 4.3, Chloride Level 102, Carbon Dioxide Level 27, Anion Gap 7, Blood Urea Nitrogen 15, Creatinine 0.49L, Estimat Glomerular Filtration Rate > 60, BUN/Creatinine Ratio 31, Glucose Level 111H, Lactic Acid Level 1.15, Calcium Level 8.0L, Corrected Calcium 9.2, Iron Level 41, Total Bilirubin 0.2, Aspartate Amino Transf (AST/SGOT) 31, Alanine Aminotransferase (ALT/SGPT) 38, Alkaline Phosphatase 107, Total Protein 5.8L, Albumin 2.5L, Procalcitonin 0.20H Microbiology 01/29/20 MRSA Screen - Final, Complete MRSA not isolated Assessment/Plan Assessment/Plan Assessment/Plan Anemia Protein Malnutrition Melena Resp Failure - improved Plan is to do EGD tomorrow am, will make pt NPO after midnight and will get consent for EGD. Pt will probably need a colonoscopy as an outpt. I ordered Ensure High Protein QID. Will hold blood thinners for EGD and hopefully can restart tomorrow. Clinical Quality Measures DVT/VTE Risk/Contraindication: Risk Factor Score Per Nursin CANDI MIJARES DO February 03, 2020 12:27
[2020-02-03 15:18] VITALS: BP 109/66
[2020-02-03] MEDS: RIVAROXABAN 20 MG TABLET (XARELTO) PO SCH (16:49)
[2020-02-03 19:17] VITALS: BP 114/62
[2020-02-04] VITALS (11 sets, daily range): BP systolic 92–116; BP diastolic 57–71
[2020-02-04] MEDS: RT-ALBUTEROL/IPRATROPIUM 3 ML (DUONEB) VIAL INH SCH ×6 (01:51→22:16)
[2020-02-04] MEDS: morphine INJ 4 MG/ML 1 ML (VIAL/SYRINGE) IVP PRN ×2 (04:34→13:08)
[2020-02-04] MEDS: CEFEPIME INJECTION 1,000 MG in WATER (STERILE) FOR INJECTION 10 ML IV SCH ×4 (05:00→23:37)
[2020-02-04] MEDS: MULTIVIT W/MINERALS TAB (THERAGRAN M) PO SCH (05:53)
[2020-02-04] MEDS: predniSONE 20 MG TAB PO SCH (05:53)
[2020-02-04] MEDS: FERROUS SULF 325 MG (IRON) TAB PO SCH ×2 (05:53→17:53)
--- NOTE | 2020-02-04 07:43 | Pulmonary Progress Note ---
Subjective Time Seen by a Provider: 07:42 Sepsis Event Evaluation Height, Weight, BMI Height: '" Weight: lbs. oz. kg; 16.01 BMI Method: Focused Exam Lactate Level 02/03/20 07:28: Lactic Acid Level 1.15 Exam Exam Vital Signs Date Time Temp Pulse Resp B/P (MAP) Pulse Ox O2 Delivery O2 Flow Rate FiO2 02/04/20 07:13 90 Nasal Cannula 5.00 02/04/20 04:00 37.6 102 20 116/71 (86) 96 Nasal Cannula 4.00 02/04/20 01:51 91 Nasal Cannula 5.00 02/04/20 01:00 108 02/04/20 00:00 37.2 105 20 114/64 (81) 95 Nasal Cannula 4.00 02/03/20 21:27 91 Nasal Cannula 5.00 02/03/20 20:00 Nasal Cannula 4.00 02/03/20 19:17 37.2 111 18 114/62 (79) 94 Nasal Cannula 4.00 02/03/20 19:00 110 02/03/20 18:16 90 Nasal Cannula 4.00 02/03/20 15:18 37.0 107 18 109/66 (80) 95 Nasal Cannula 4.00 02/03/20 13:00 111 02/03/20 12:00 36.7 108 18 97/63 (74) 97 Nasal Cannula 4.00 02/03/20 08:00 90 Nasal Cannula 4.00 I & O 02/04/20 07:00 Intake Total 2470 ml Output Total 1600 ml Balance 870 ml Height & Weight Height: '" Weight: lbs. oz. kg; 16.01 BMI Method: General Appearance: No Apparent Distress, Chronically ill, Thin Neck: Normal Inspection, Supple Respiratory: Lungs Clear, Decreased Breath Sounds, Other (tachypnea) Cardiovascular: Regular Rate, Rhythm, No Edema, No Murmur Capillary Refill: NONE Gastrointestinal: normal bowel sounds, soft, no organomegaly, no pulsatile mass, hernia (incarcerated LIH) Extremity: Normal Inspection, Non Tender, No Pedal Edema Neurologic/Psychiatric: Alert, Oriented x3, Normal Mood/Affect, Motor Weakness Skin: Normal Color, Warm/Dry Results Lab Laboratory Tests 02/03/20 07:28 Assessment/Plan Assessment/Plan PNA -- -Pt feels better today -Continue Cefepime -will need repeat CT scan 8wks after discharge - SVNS Acute occlusion of artery of right lower extremity s/p abdominal aorta gram with TPA via cath anemia -monitor - protonix Tobacco use with probable COPD JENI DENISE DO February 04, 2020 07:43
[2020-02-04] MEDS ORDERED: LACTATED RINGERS 1,000 ML IV ONE (08:29)
--- NOTE | 2020-02-04 08:30 | NUR ---
Patient off floor at this time to have EGD
[2020-02-04] MEDS ORDERED: HURRICAINE EXT TUBE (BENZOCAINE) ONE (09:06)
--- NOTE | 2020-02-04 09:11 | Progress Note-Post Operative ---
Post-Operative Progess Note Surgeon (s)/Lieutenant Governor (s) Surgeon CANDI MIJARES DO Lieutenant Governor: none Pre-Operative Diagnosis Anemia, Melena, malnutrition Post-Operative Diagnosis Same plus Gastritis Hiatal Hernia Esophageal ulcers Procedure & Operative Findings Date of Procedure 02/04/20 Procedure Performed/Findings EGD with bx Anesthesia Type IV sedation by DEFENSIVE SECONDARY COACH Estimated Blood Loss Estimated blood loss (mL): scant Specimens/Packing Specimens Removed duodenal bx antral bx body of stomach bx GE jxn bx CANDI MIJARES DO February 04, 2020 09:11
[2020-02-04] MEDS ORDERED: HURRICAINE EXT TUBE (BENZOCAINE) XX ONE (09:30)
--- NOTE | 2020-02-04 09:40 | NUR ---
Patient back to room at this time.
[2020-02-04] MEDS: DOCUSATE SODIUM 100 MG (COLACE) CAP PO SCH ×2 (10:19→20:01)
[2020-02-04] MEDS: guaiFENesin (MUCINEX) 600 MG TAB PO SCH ×2 (10:19→20:01)
[2020-02-04] MEDS: FOLIC ACID 1 MG TAB PO SCH (10:20)
[2020-02-04] MEDS: NICOTINE 14 MG (NICODERM) PATCH TD SCH (10:20)
[2020-02-04] MEDS: PATCH REMOVAL TP SCH (10:20)
[2020-02-04] MEDS: SENNA W/DOCUSATE (SENOKOT S) TABLET PO SCH ×2 (10:20→20:01)
[2020-02-04] MEDS: PANTOPRAZOLE 40 MG (PROTONIX) TAB PO SCH (10:20)
[2020-02-04] MEDS: risperiDONE 0.25 MG (RisperDAL) TAB PO SCH ×2 (10:20→20:01)
[2020-02-04] MEDS: DIGOXIN 0.25 MG (LANOXIN) TAB PO SCH (10:20)
--- NOTE | 2020-02-04 11:40 | Discharge Summary ---
Diagnosis/Chief Complaint Date of Admission January 23, 2020 at 12:05 Date of Discharge Discharge Date: February 03, 2020 Primary Care No,Local Physician Discharge Diagnosis (1) Debility Status: Acute (2) Pneumonia Status: Acute (3) Lung mass Status: Acute (4) Tobacco abuse Status: Chronic (5) Acute respiratory failure with hypoxia Status: Acute (6) Acute occlusion of artery of lower extremity due to thromboembolism Status: Acute (7) Atrial fibrillation with rapid ventricular response Status: Acute (8) Anemia of chronic disease Status: Chronic (9) Folic acid deficiency Status: Chronic (10) Iron deficiency anemia Status: Chronic (11) Severe protein-calorie malnutrition Status: Acute (12) Chest pain Status: Resolved Discharge Summary Procedures/Consulations Dr Watson- Cardiology Dr Wright- Surgery Dr Eugene- Pulm Discharge Physical Exam Allergies: Coded Allergies: No Known Drug Allergies (Verified , 07/11/09) Vitals & I&Os Vital Signs Date Time Temp Pulse Resp B/P (MAP) Pulse Ox O2 Delivery O2 Flow Rate FiO2 02/04/20 10:30 90 Nasal Cannula 5.00 02/04/20 09:25 108 24 02/04/20 08:00 36.8 92/60 (71) 02/03/20 06:56 4 General Appearance: No Apparent Distress, Thin Respiratory: Lungs Clear, No Accessory Muscle Use Cardiovascular: Regular Rate, Rhythm, No Murmur Gastrointestinal: Normal Bowel Sounds, Soft Neurologic/Psychiatric: Alert, Oriented x3 Hospital Course Pt was admitted to swing bed status following an acute stay that required intubation for respiratory failure from pneumonia. 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 He was treated with IV antibiotics for pneumonia and continued PT/OT. He slowly improved. He did undergo cardiac catheterization for evaluation of chest pain. He then underwent EGD on 02/03 which revealed hiatal hernia, esophageal ulcer, and gastritis. He was continued on his PPI. He discharged to IRU for continued therapy in hopes of discharging to home. Labs (last 24 hrs) Microbiology 01/29/20 MRSA Screen - Final, Complete MRSA not isolated Patient resulted labs reviewed. Imaging: Reviewed Imaging Report Discussion & Recommendations Discharge Planning: >30 minutes discharge planning Discharge Home Medications: Active Scripts Active Reported Multivitamin 1 Each Tablet 1 Each PO DAILY Aleve (Naproxen Sodium) 220 Mg Capsule 440 Mg PO Q8H PRN Instructions to patient/family Please see electronic discharge instructions given to patient. Clinical Quality Measures DVT/VTE Risk/Contraindication: Risk Factor Score Per Nursin BLANE JAIN MD February 04, 2020 11:40
--- NOTE | 2020-02-04 12:55 | Cardiology Progress Note ---
Subjective Date Seen by Provider: February 04, 2020 Time Seen by Provider: 12:54 Subjective/Events-last exam Patient was seen and evaluated, has been doing well. Had EGD done. Review of Systems General: No Chills, No Night Sweats, No Fatigue, No Malaise, No Appetite, No Other HEENT: No Head Aches, No Visual Changes, No Eye Pain, No Ear Pain, No Dysphasia, No Sinus Congestion, No Post Nasal Drip, No Sore Throat, No Other Pulmonary: No Dyspnea, No Cough, No Pleuritic Chest Pain, No Other Cardiovascular: No: Chest Pain, Palpitations, Orthopnea, Paroxysmal Noc. Dyspnea, Edema, Lt Headedness, Other Focused Exam Lactate Level 02/03/20 07:28: Lactic Acid Level 1.15 Objective-Cardiology Exam Last Set of Vital Signs Vital Signs 02/03/20 02/04/20 06:56 12:00 Temp 36.8 Pulse 101 Resp 20 B/P (MAP) 102/63 (76) Pulse Ox 95 O2 Delivery Nasal Cannula O2 Flow Rate 4.00 FiO2 4 Capillary Refill : Less Than 3 SecondsNONE I&O Intake and Output 02/04/20 00:00 Intake Total 2920 ml Output Total 1725 ml Balance 1195 ml Intake Oral 2920 ml Output Urine Total 1725 ml # Voids 2 # Emeses 1 General: Alert, Oriented X3, Cooperative HEENT: Atraumatic, PERRLA Neck: Supple, No JVD, No Thyromegaly Lungs: Other (bilat rhonchi) Heart: Regular Rate, Normal S1, Normal S2, No Murmurs Abdomen: Normal Bowel Sounds, Soft, No Tenderness, No Hepatosplenomegaly, No Masses Extremities: No Clubbing, No Cyanosis, No Edema, Normal Pulses, No Tenderness/Swelling Skin: No Rashes, No Breakdown, No Significant Lesion Neuro: Normal Speech, Cranial Nerves 3-12 NL Psych/Mental Status: Mental Status NL, Mood NL A/P-Cardiology Admission Diagnosis Acute limb ischemia PAF Pneumonia Tobaccoism (1) Chest pain Status: Resolved (2) Debility Status: Acute (3) Lung mass Status: Acute (4) Tobacco abuse Status: Chronic (5) Acute occlusion of artery of lower extremity due to thromboembolism Status: Acute (6) Atrial fibrillation with rapid ventricular response Status: Acute (7) Anemia of chronic disease Status: Chronic (8) Folic acid deficiency Status: Chronic (9) Iron deficiency anemia Status: Chronic (10) Severe protein-calorie malnutrition Status: Acute Assessment/Plan Chest pain, nonspecific etiology, cardiac catheterization carried out on January 30, 2020 showing mild to moderate coronary artery disease nonobstructive disease. Chest pain is unlikely to be cardiac, Anemia, managed by primary care team, H&H is monitored, EGD done with Dr. Wright reported gastritis and hiatal hernia. 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 Maintained on X arelto PAF with RVR on 01/24/20, currently sinus rhythm. Continue on current medications and continue to monitor. Acute respiratory failure, pneumonia and lung mass, continues to improve. 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 Has been on disability Tobaccoism, stopped smoking in December 2019, advised to continue to refrain Anemia of undetermined etiology, managed by the Med Service Clinical Quality Measures DVT/VTE Risk/Contraindication: Risk Factor Score Per Nursin THERESA BELLAMY MD February 04, 2020 12:55
--- NOTE | 2020-02-04 13:04 | Physical Therapy Daily Note ---
PT Daily Note-Current Subjective Patient in bed pre tx, agrees to PT with encouragement, patient has no complaints of pain at rest. Will be co-treating with OT due to impaired mobility, strength, endurance, reduce the risk of falls, the need to coordinate UE and LE during activity. Appearance Patient in recliner post tx with nurse call, phone, tray, all needs met. Mental Status Patient Orientation: Person, Place, Situation Attachments: Oxygen Transfers SCALE: Activities may be completed with or without assistive devices. 4-Yaxdefcczl-duvsvka completes the activity by him/herself with no assistance from a helper. 5-Set-up or Clean-up Assistance-helper sets up or cleans up; patient completes activity. [place] assists only prior to or following the activity. 4-Supervision or Touching Assistance-helper provides verbal cues and/or touching/steadying and/or contact guard assistance as patient completes activity. Assistance may be provided throughout the activity or intermittently. 3-Partial/Moderate Assistance-helper does LESS THAN HALF the effort. [place] lifts, holds or supports trunk or limbs, but provides less than half the effort. 2-Substantial/Maximal Assistance-helper does MORE THAN HALF the effort. [place] lifts or holds trunk or limbs and provides more than half the effort. 5-Frukymilx-sacaok does ALL the effort. Patient does none of the effort to complete the activity. Or, the assistance of 2 or more helpers is required for the patient to complete the activity. If activity was not attempted, code reason: 7-Patient Refused. 9-Not Applicable-not attempted and the patient did not perform the activity b efore the current illness, exacerbation or injury. 10-Not Attempted due to Environmental Limitations-(lack of equipment, weather restraints, etc.). 88-Not Attempted due to Medical Conditions or Safety Concerns. Roll Left & Right (QC): 6 Lying to Sitting/Side of Bed(Q: 6 Sit to Stand (QC): 3 Chair/Bcc-qw-Nrrph Xfer(QC): 4 Weight Bearing Right Lower Extremity: Right Weight Bearing/Tolerated Left Lower Extremity: Left Weight Bearing/Tolerated Gait Training Distance: 50' Walk 10 feet (QC): 4 Walk 50 ft with 2 Turns(QC): 4 Gait Persons Needed: 1 Gait Assistive Device: FWW Patient ambulates slow but steady, had one standing rest break. Patient fatigues very quickly, SOB, instructed in purse lip breathing. Exercises stood x3 and performed UE activity with OT. Patient could only stand for about 1 min each time. Treatments bed mobility and transfers, ambulation, functional strengthening. PT worked on bed mobility and transfers, ambulation, standing, safety and standing balance, OT worked on UE activity, positioning and safety during ambulation. 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 PT Retirement Goals Time Frame: Feb 21, 2020 Roll Left & Right (QC): 5 Sit to Lying (QC): 5 Lying-Sitting on Side/Bed(QC): 5 Sit to Stand (QC): 5 Chair/Lol-gx-Muezj Xfer(QC): 5 Toilet Transfer (QC): 5 Car Transfer (QC): 5 Does the Patient Walk: Yes Walk 10 feet (QC): 5 Walk 50ft with 2 Turns (QC): 5 Walk 150 ft (QC): 5 Walking 10ft on Uneven Surface: 5 1 Step (curb) (QC): 5 4 Steps (QC): 5 12 Steps (QC): 5 Picking up an Object (QC): 5 Does the Pt use WC or Scooter?: No Wheel 50 feet with 2 turns (QC: 9 Type: N/A Wheel 150 feet: 9 Type: N/A PT Plan Problem List Problem List: Activity Tolerance, Functional Strength, Safety, Balance, Gait, Transfer, Bed Mobility, ROM Treatment/Plan Treatment Plan: Continue Plan of Care Treatment Plan: Bed Mobility, Education, Functional Activity Lorena, Functional Strength, Gait, Safety, Therapeutic Exercise, Transfers Treatment Duration: Feb 21, 2020 Frequency: 6 times per week Estimated Hrs Per Day: .25 hour per day Patient and/or Family Agrees t: Yes Safety Risks/Education Patient Education: Gait Training, Transfer Techniques, Correct Positioning, Safety Issues Teaching Recipient: Patient Teaching Methods: Demonstration, Discussion Response to Teaching: Reinforcement Needed Time/GCodes Time In: 1130 Time Out: 1150 Total Billed Treatment Time: 20 Total Billed Treatment 1 visit FA 20' Co-treated with OT for 20'. MARKO REID PT February 04, 2020 13:04
--- NOTE | 2020-02-04 13:38 | Occupational Ther Daily Note ---
OT Current Status-Daily Note Subjective Pt seen in bed. Pt alert/ awake, agrees to therapy though states he doesn't want to do much. Pt to d/c to ARU tomorrow and encouraged to participate in higher level activity today, pt educated on 3 hour standard therapy participation time and need to build up endurance for participation. Pt states he knows. Pt states pain in R foot during ambulation tasks. Later states he does not think he will be able to participate in 3 hours of therapy daily due to debilitated state. Mental Status/Objective Patient Orientation: Normal For Age Attachments: Oxygen (5L), Telemetry ADL-Treatment Therapy Code Descriptions/Definitions Functional [place] Measure: 0=Not Assessed/NA 4=Minimal Assistance 1=Total Assistance 5=Supervision or Setup 2=Maximal Assistance 6=Modified [place] 3=Moderate Assistance 7=Complete IndependenceSCALE: Activities may be completed with or without assistive devices. 6-Opqpfczwra-haktves completes the activity by him/herself with no assistance from a helper. 5-Set-up or Clean-up Assistance-helper sets up or cleans up; patient completes activity. [place] assists only prior to or following the activity. 4-Supervision or Touching Assistance-helper provides verbal cues and/or touching/steadying and/or contact guard assistance as patient completes activity. Assistance may be provided throughout the activity or intermittently. 3-Partial/Moderate Assistance-helper does LESS THAN HALF the effort. [place] lifts, holds or supports trunk or limbs, but provides less than half the effort. 2-Substantial/Maximal Assistance-helper does MORE THAN HALF the effort. [place] lifts or holds trunk or limbs and provides more than half the effort. 2-Qfvszvnac-nftcce does ALL the effort. Patient does none of the effort to complete the activity. Or, the assistance of 2 or more helpers is required for the patient to complete the activity. If activity was not attempted, code reason: 7-Patient Refused. 9-Not Applicable-not attempted and the patient did not perform the activity before the current illness, exacerbation or injury. 10-Not Attempted due to Environmental Limitations-(lack of equipment, weather restraints, etc.). 88-Not Attempted due to Medical Conditions or Safety Concerns. Eating (QC): 6 Other Treatment Pt agrees to participate in activities/ core strengthening with encouragement. OT/ PT co-treat on this date to encourage higher-level activities. PT focuses on gait/ balance/ LE endurance as OT focuses on UE strength, pain/ breath management, and functional abilities. Pt transfers EOB with SBA. pt sit to stand with CGAx2 to 2WW, pt ambulates with CGAx2 from bed to cody (see PT notes for distance). Requires cues for breathing technique during ambulation. Pt requests to turn back, (reclines on walker to catch breath). Pt SOB, able to recover within ~3 min while sitting in recliner. Pt educated on diaphragmatic and nostril breathing. Pt attempts, during activities requires cues for breathing. Pt stands at walker level and completes reciprocal BUE shoulder flexion task, able to complete for ~15 sec prior to becoming SOB and needing a rest. Pt returns to sit, nursing states telemetry reading ~130-140 BPM from ICU reading. Pt recovers. Stands 1 additional time for ~35 seconds prior to stating he "feels like (he's) going to collapse," and sits in recliner. Pt educated on benefits on core/ lungs of seated positioning. Pt left in recliner with all needs met, call light in reach. Pt educated on resistance exercises to be completed when increased strength/ energy. pt agrees. Education OT Patient Education: Correct positioning, Exercise program, Home exercise program, Purpose of tx/functional activities, Rehab process, Safety issues Teaching Recipient: Patient Teaching Methods: Demonstration, Discussion Response to Teaching: Verbalize Understanding, Return Demonstration, Reinforcement Needed OT Transportation Assistant Goals Halfway Goals Time Frame: February 13, 2020 Eating (QC): 6 Oral Hygiene (QC): 6 Toileting Hygiene (QC): 6 Shower/Bathe Self (QC): 4 Upper Body Dressing (QC): 5 Lower Body Dressing (QC): 4 On/Off Footwear (QC): 4 Additional Goals: 1-Demonstrate ADL Tasks, 2-Verbalize Understanding, 3- ImproveStrength/[place] 1=Demonstrate adherence to instructed precautions during ADL tasks. 2=Patient will verbalize/demonstrate understanding of assistive devices/modifications for ADL. 3=Patient will improve strength/tolerance for activity to enable patient to perform ADL's. OT Education/Plan Problem List/Assessment Assessment: Decreased Activ Tolerance, Decreased UE Strength, Dependent Transfers, Impaired Funct Balance, Impaired I ADL's, Impaired Self-Care Skills Discharge Recommendations Plan/Recommendations: Continue POC Therapy Discharge Recommendati: 24 Hour Supervision (to address debilitated state at moderate level), Post Acute OT Treatment Plan/Plan of Care Treatment,Training & Education: Yes Patient would benefit from OT for education, treatment and training to promote independence in ADL's, mobility, safety and/or upper extremity function for ADL's. Plan of Care: ADL Retraining, Functional Mobility, UE Funct Exercise/Act Treatment Duration: February 13, 2020 Frequency: 5 times per week Estimated Hrs Per Day: .25 hour per day Rehab Potential: Guarded Time/GCodes Start Time: 11:30 Stop Time: 11:50 Total Time Billed (hr/min): 20 Billed Treatment Time 1, EX (20) OT/ PT co-treat 20 min: OT/ PT co-treat on this date to encourage higher-level activities. PT focuses on gait/ balance/ LE endurance as OT focuses on UE strength, pain/ breath management, and functional abilities. RANDA BARROSO OTR February 04, 2020 13:37
--- NOTE | 2020-02-04 13:40 | Anesthesia-General Post-Op ---
MAC Patient Condition Respiratory: Satisfactory (same as preop condition. Labored but maintaining 95% Sp02 on 10LSFM. ) Post Op Complications Complications None Follow Up Care/Instructions Patient Instructions None needed. Anesthesiology Discharge Order Discharge Order Patient is doing well, no complaints, stable vital signs, no apparent adverse anesthesia problems. No complications reported per nursing. MEG DEWEY CRNA February 04, 2020 13:40
--- NOTE | 2020-02-04 14:26 | OPERATIVE REPORT ---
DATE OF SERVICE: PREOPERATIVE DIAGNOSES: Melena, anemia, malnutrition. POSTOPERATIVE DIAGNOSES: Melena, anemia, malnutrition, plus mild gastritis, hiatal hernia and esophageal ulcers. PROCEDURE: EGD with biopsy. SURGEON: Harman Wright DO FACILITY SERVICE ASSOCIATE: None. ANESTHESIA: IV sedation by the MANAGER MARKET INTELLIGENCE. SPECIMEN: Biopsy from duodenum, antrum, body of stomach, GE junction. BLOOD LOSS: Scant. FLUIDS: Per anesthesia. POSTOPERATIVE CONDITION: Stable. INDICATION FOR PROCEDURE: The patient is a 59-year-old male who has had a long complicated hospital course, was on blood thinners for embolic event and then had anemia, possibly melena, needed a workup. FINDINGS: The patient had some possible duodenitis, but he also had some mild gastritis. He had a hiatal hernia and then he had some ulcers seen in the upper to midesophagus. PROCEDURE NOTE: After informed consent was obtained, the patient was brought to the endoscopy suite, placed in bed in the left lateral decubitus position. He was administered IV sedation by the MANAGER MARKET INTELLIGENCE who monitored his vitals the entire time, heart rate, blood pressure and pulse ox and the scope was inserted down the mouth through the esophagus into the stomach, pushed pass the antrum into the duodenum, looked like there was mild inflammation and did a biopsy here, pulled back and took a picture. Pulled back and took a picture of the antrum, then did a biopsy here. Retroflexed the scope, saw hiatal hernia and then did biopsy of the body of stomach, pulled the scope up into the GE junction, took another picture of the hiatal hernia and then did a biopsy of the GE junction, pushed the scope into the stomach and suctioned all the air out and then pulled the scope up the esophagus and on the way up, noted all ulcers on either side of the esophagus about mid and upper esophagus, looked like that healed, maybe these were from NG tube, took a picture and then removed the scope. The patient tolerated the procedure, recovered in endoscopy suite. Job ID: [id number] DocumentID: [id number] Dictated Date: 02/04/2020 09:08:35 Car Starter Date: 02/04/2020 14:25:22 Dictated By: HARMAN WRIGHT DO
[2020-02-04] MEDS: RIVAROXABAN 20 MG TABLET (XARELTO) PO SCH (17:53)
[2020-02-04] MEDS: oxyCODONE 5 MG/5 ML ORAL SOLN (roxiCODONE) 5 ML UDC PO PRN (20:06)
[2020-02-05] VITALS: BP 118/65
[2020-02-05] MEDS: RT-ALBUTEROL/IPRATROPIUM 3 ML (DUONEB) VIAL INH SCH ×3 (02:53→10:59)
[2020-02-05] MEDS: oxyCODONE 5 MG/5 ML ORAL SOLN (roxiCODONE) 5 ML UDC PO PRN ×2 (03:56→08:15)
[2020-02-05 04:00] VITALS: BP 112/70
[2020-02-05] MEDS: CEFEPIME INJECTION 1,000 MG in WATER (STERILE) FOR INJECTION 10 ML IV SCH (05:56)
--- NOTE | 2020-02-05 06:00 | Pulmonary Progress Note ---
Subjective Time Seen by a Provider: 05:59 Sepsis Event Evaluation Height, Weight, BMI Height: '" Weight: lbs. oz. kg; 16.01 BMI Method: Focused Exam Lactate Level 02/03/20 07:28: Lactic Acid Level 1.15 Exam Exam Vital Signs Date Time Temp Pulse Resp B/P (MAP) Pulse Ox O2 Delivery O2 Flow Rate FiO2 02/05/20 02:53 92 Nasal Cannula 5.00 02/05/20 01:00 112 02/05/20 00:00 37.6 116 21 118/65 (82) 96 Nasal Cannula 4.00 02/04/20 22:16 92 Nasal Cannula 5.00 02/04/20 20:39 37.0 115 22 114/70 (85) 94 Nasal Cannula 4.00 02/04/20 20:00 Nasal Cannula 4.00 02/04/20 19:00 111 02/04/20 18:58 90 Nasal Cannula 5.00 02/04/20 16:03 37.1 114 22 105/70 (82) 94 Nasal Cannula 4.00 02/04/20 15:00 90 Nasal Cannula 5.00 02/04/20 12:35 126 02/04/20 12:00 36.8 101 20 102/63 (76) 95 Nasal Cannula 4.00 02/04/20 11:46 36.8 111 20 92/60 (71) 93 Nasal Cannula 4.00 02/04/20 10:30 90 Nasal Cannula 5.00 02/04/20 09:25 108 24 100 OxyMask 4 02/04/20 09:20 107 24 95 OxyMask 4 02/04/20 09:15 108 24 95 OxyMask 6 02/04/20 09:10 110 24 97 OxyMask 9 02/04/20 08:00 36.8 111 20 92/60 (71) 93 Nasal Cannula 4.00 02/04/20 07:50 Nasal Cannula 4.00 02/04/20 07:13 90 Nasal Cannula 5.00 02/04/20 06:54 112 I & O 02/05/20 07:00 Intake Total 2150 ml Output Total 1850 ml Balance 300 ml Height & Weight Height: '" Weight: lbs. oz. kg; 16.01 BMI Method: General Appearance: No Apparent Distress, Thin Neck: Normal Inspection, Supple Respiratory: Lungs Clear, No Accessory Muscle Use Cardiovascular: Regular Rate, Rhythm, No Murmur Capillary Refill: Less Than 3 Seconds Gastrointestinal: normal bowel sounds, soft, no organomegaly, no pulsatile mass, hernia (incarcerated LIH) Extremity: Normal Inspection, Non Tender, No Pedal Edema Neurologic/Psychiatric: Alert, Oriented x3 Skin: Normal Color, Warm/Dry Results Lab Laboratory Tests 02/03/20 07:28 Assessment/Plan Assessment/Plan PNA -- -Pt feels better today - Cefepime -will need repeat CT scan 8wks after discharge - SVNS Acute occlusion of artery of right lower extremity s/p abdominal aorta gram with TPA via cath anemia -monitor - protonix Tobacco use with probable COPD JENI DENISE DO February 05, 2020 06:00
[2020-02-05] MEDS: predniSONE 20 MG TAB PO SCH (06:04)
[2020-02-05] MEDS: MULTIVIT W/MINERALS TAB (THERAGRAN M) PO SCH (06:04)
[2020-02-05] MEDS: FERROUS SULF 325 MG (IRON) TAB PO SCH (06:04)
[2020-02-05 08:00] VITALS: BP 114/74
[2020-02-05] MEDS: DIGOXIN 0.25 MG (LANOXIN) TAB PO SCH (08:15)
[2020-02-05] MEDS: DOCUSATE SODIUM 100 MG (COLACE) CAP PO SCH (08:16)
[2020-02-05] MEDS: PATCH REMOVAL TP SCH (08:16)
[2020-02-05] MEDS: guaiFENesin (MUCINEX) 600 MG TAB PO SCH (08:16)
[2020-02-05] MEDS: PANTOPRAZOLE 40 MG (PROTONIX) TAB PO SCH (08:16)
[2020-02-05] MEDS: FOLIC ACID 1 MG TAB PO SCH (08:16)
[2020-02-05] MEDS: risperiDONE 0.25 MG (RisperDAL) TAB PO SCH (08:16)
[2020-02-05] MEDS: SENNA W/DOCUSATE (SENOKOT S) TABLET PO SCH (08:17)
[2020-02-05] MEDS: NICOTINE 14 MG (NICODERM) PATCH TD SCH (08:17)
--- NOTE | 2020-02-05 08:28 | Progress Note - Surgery ---
Subjective Date Seen by a Provider: February 04, 2020 Time Seen by a Provider: 15:06 Subjective/Events-last exam This is a late entry note, pt seen yesterday but I forgot to put note in. Pt seen and examined, no complaints after EGD. Review of Systems General: Fatigue, Malaise Pulmonary: Dyspnea, Cough Cardiovascular: No: Chest Pain, Palpitations Gastrointestinal: No: Nausea, Vomiting, Abdominal Pain Focused Exam Lactate Level 02/03/20 07:28: Lactic Acid Level 1.15 Objective Exam Vital Signs Date Time Temp Pulse Resp B/P (MAP) Pulse Ox O2 Delivery O2 Flow Rate FiO2 02/05/20 07:00 90 Nasal Cannula 5.00 02/05/20 06:38 106 02/05/20 04:00 37.4 111 22 112/70 (84) 94 Nasal Cannula 4.00 02/05/20 02:53 92 Nasal Cannula 5.00 02/05/20 01:00 112 02/05/20 00:00 37.6 116 21 118/65 (82) 96 Nasal Cannula 4.00 02/04/20 22:16 92 Nasal Cannula 5.00 02/04/20 20:39 37.0 115 22 114/70 (85) 94 Nasal Cannula 4.00 02/04/20 20:00 Nasal Cannula 4.00 02/04/20 19:00 111 02/04/20 18:58 90 Nasal Cannula 5.00 02/04/20 16:03 37.1 114 22 105/70 (82) 94 Nasal Cannula 4.00 02/04/20 15:00 90 Nasal Cannula 5.00 02/04/20 12:35 126 02/04/20 12:00 36.8 101 20 102/63 (76) 95 Nasal Cannula 4.00 02/04/20 11:46 36.8 111 20 92/60 (71) 93 Nasal Cannula 4.00 02/04/20 10:30 90 Nasal Cannula 5.00 02/04/20 09:25 108 24 100 OxyMask 4 02/04/20 09:20 107 24 95 OxyMask 4 02/04/20 09:15 108 24 95 OxyMask 6 02/04/20 09:10 110 24 97 OxyMask 9 I & O 02/05/20 07:00 Intake Total 2560 ml Output Total 2325 ml Balance 235 ml Capillary Refill : Less Than 3 SecondsLess Than 3 Seconds General Appearance: No Apparent Distress, Cachetic, Thin Neck: Normal Inspection, Supple Respiratory: Lungs Clear, No Accessory Muscle Use Cardiovascular: Regular Rate, Rhythm, No Murmur Gastrointestinal: normal bowel sounds, soft, no organomegaly, no pulsatile mass, hernia (incarcerated LIH) Neurologic/Psychiatric: Alert, Oriented x3 Skin: Normal Color, Warm/Dry Results Lab Microbiology 01/29/20 MRSA Screen - Final, Complete MRSA not isolated Assessment/Plan Assessment/Plan Assessment/Plan Gastritis Hiatal Hernia Anemia Protein Malnutrition Melena Resp Failure - improved EGD did not really find any obvious reason for anemia; pt needs outpt colonoscopy. Clinical Quality Measures DVT/VTE Risk/Contraindication: Risk Factor Score Per Nursin CANDI MIJARES DO February 05, 2020 08:28
--- NOTE | 2020-02-05 08:37 | Cardiology Progress Note ---
Subjective Date Seen by Provider: February 05, 2020 Time Seen by Provider: 08:36 Subjective/Events-last exam Patient is laying down in bed, complaining of leg cramps and fatigue. Review of Systems General: No Chills, No Night Sweats; Fatigue; No Malaise, No Appetite, No Other HEENT: No Head Aches, No Visual Changes, No Eye Pain, No Ear Pain, No Dysphasia, No Sinus Congestion, No Post Nasal Drip, No Sore Throat, No Other Pulmonary: No Dyspnea, No Cough, No Pleuritic Chest Pain, No Other Cardiovascular: No: Chest Pain, Palpitations, Orthopnea, Paroxysmal Noc. Dyspnea, Edema, Lt Headedness, Other Focused Exam Lactate Level 02/03/20 07:28: Lactic Acid Level 1.15 Objective-Cardiology Exam Last Set of Vital Signs Vital Signs 02/03/20 02/05/20 06:56 08:00 Temp 36.6 Pulse 114 Resp 20 B/P (MAP) 114/74 (87) Pulse Ox 94 O2 Delivery Nasal Cannula O2 Flow Rate 4.00 FiO2 4 Capillary Refill : Less Than 3 SecondsLess Than 3 Seconds I&O Intake and Output 02/05/20 00:00 Intake Total 2150 ml Output Total 2200 ml Balance -50 ml Intake Oral 2140 ml IV Total 10 ml Output Urine Total 2200 ml # Bowel Movements 1 General: Alert, Oriented X3, Cooperative HEENT: Atraumatic, PERRLA Neck: Supple, No JVD, No Thyromegaly Lungs: Other (bilat rhonchi) Heart: Regular Rate, Normal S1, Normal S2, No Murmurs Abdomen: Normal Bowel Sounds, Soft, No Tenderness, No Hepatosplenomegaly, No Masses Extremities: No Clubbing, No Cyanosis, No Edema, Normal Pulses, No Tenderness/Swelling Skin: No Rashes, No Breakdown, No Significant Lesion Neuro: Normal Speech, Cranial Nerves 3-12 NL Psych/Mental Status: Mental Status NL, Mood NL A/P-Cardiology Admission Diagnosis Acute limb ischemia PAF Pneumonia Tobaccoism (1) Chest pain Status: Resolved (2) Debility Status: Acute (3) Lung mass Status: Acute (4) Tobacco abuse Status: Chronic (5) Acute occlusion of artery of lower extremity due to thromboembolism Status: Acute (6) Atrial fibrillation with rapid ventricular response Status: Acute (7) Anemia of chronic disease Status: Chronic (8) Folic acid deficiency Status: Chronic (9) Iron deficiency anemia Status: Chronic (10) Severe protein-calorie malnutrition Status: Acute Assessment/Plan Chest pain, nonspecific etiology, cardiac catheterization carried out on January 30, 2020 showing mild to moderate coronary artery disease nonobstructive disease. Chest pain is unlikely to be cardiac, Anemia, managed by primary care team, H&H is monitored, EGD done with Dr. Wright reported gastritis and hiatal hernia. 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 Maintained on Xarelto PAF with RVR on 01/24/20, currently sinus rhythm. Continue on current medications and continue to monitor. Acute respiratory failure, pneumonia and lung mass, continues to improve. 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 Has been on disability Tobaccoism, stopped smoking in December 2019, advised to continue to refrain Anemia of undetermined etiology, managed by the Med Service Clinical Quality Measures DVT/VTE Risk/Contraindication: Risk Factor Score Per Nursin THERESA BELLAMY MD February 05, 2020 8:36 am
--- NOTE | 2020-02-05 10:00 | NUR ---
DISCHARGE PLAN: Patient will dismiss to Inpatient Rehabilitation today to continue to work on increasing his strength et activity tolerance. Ravindra's ultimate goal is to return to his prior level of independent functioning so that he can eventually return to his home. His brother Geo has been very involved via phone et dropping off care packages for Ravindra throughout his stay. Geo et Ravindra both voice that Ravindra will stay with Geo when he dismisses from the hospital. Geo has also been working on finding Ravindra a primary care physician to continue to follow with him once he dismisses from the hospital.
--- NOTE | 2020-02-05 10:30 | NUR ---
DISCHARGED TO REHAB PER W/C.
--- OUTSIDE RECORDS SUMMARY | 2020-02-05 14:27 | XMS REPORT | Continuity of Care Document ---
Author Organization Unknown Address Unknown Phone Unavailable Allergies Active Description Code Type Severity Reaction Onset Reported/Identified Relationship to Patient Clinical Status Yes NO KNOWN DRUG ALLERGIES UNKNOWN UNKNOWN Yes No Known Drug Allergies [id number] Drug Allergy Mild N/A 07/11/2009 Medications Medication [...] MD Ot E86. 0 DEHYDRATION 01/14/2020 BLANE JIAN MD Ot E87. 6 HYPOKALEMIA 01/14/2020 BLANE [...] AND EXPOSURE TO OTH VIRAL COMM 01/30/2020 BLANE JAIN MD, Ot D50. 9 IRON DEFICIENCY [...] Ot I25. 10 ATHSCL HEART DISEASE OF [place] CORONARY 02/04/2020 THERESA BELLAMY MD Ot I48. [...] Code Description Performed By Per formed On [id number] DI LATION OF RIGHT FEMORAL ARTERY, PERCUT 01/13/2020 471M3JX DI LATION OF RIGHT POPLITEAL ARTERY, PERC 01/13/2020 [id number] IN TRODUCE OF OTH THROMBOLYTIC INTO PERIP 01/13/2020 [id number] FL UOROSCOPY OF AORTA, BI LE ART USING L 01/13/2020 [id number] FL UOROSCOPY OF R LOW EXTREM ART USING L 01/13/2020 [id number] IN SERTION OF ENDOTRACHEAL AIRWAY INTO TR 01/17/2020 [id number] RE SPIRATORY VENTILATION, 24- 96 CONSECUTI 01/17/2020 [...] COVID19 - 01/11/20 13:25 COVID19 [facility], Results have been scanned Influenza - [...] 01/12/20 07:45 PROCALCITONIN (PCT) 1.36 ng/mL <0.10 [id number] - 01/12/20 07:45 Prothrombin time (PT) in [...] pa bel - 01/15/20 05:50 WRISTBAND NUMBER [id number] NRG ABO+Rh group AP NRG Blood group [...] OF GROWTH Rare NR Bacterial sputum culture [id number] NR Arterial blood gas measurement - 0 [...] Status Pt. Type Provider Facility Loc./Unit Complaint [id number] 01/11/2020 12:51:00 01/11/2020 15:15 :00 DIS Outpatient [place] [facility] [place] [id number] 01/11/2020 13:18:12 Document Registration [id number] 01/30/2020 13:00:00 23:59:59 CLS Outpatient JOSESITO FRIED, THERESA [facility] CATH CHEST PAIN [id number] 01/11/2020 15:52:00 10:54:00 DIS Inpatient BLANE JAIN MD [facility] 4TH SEPSIS [id number] 01/23/2020 12:05:[address] Inpatient BLANE JAIN MD [facility] 4TH PNEUMONIA;COPD
--- NOTE | 2020-02-05 15:23 | Therapy Team Discharge Summary ---
Therapy Discharge Summary Discharge Recommendations Date of Discharge February 05, 2020 at 10:30 Therapy D/C Recommendations: Acute Rehab Occupational Therapy Pt. discharged to ARU. Will continue goals and work toward strength and independence. Decreased Activ Tolerance, Decreased UE Strength, Dependent Transfers, Impaired Funct Balance, Impaired I ADL's, Impaired Self-Care Skills PT [facility] Goals Homicide Squad Commanding Officer Goals PT [facility] Goals Time Frame: Feb 21, 2020 Roll Left to Right (QC): 5 Sit to Lying (QC): 5 Lying-Sitting on Side/Bed(QC): 5 Sit to Stand (QC): 5 Chair/Fmq-jn-Yihjn Xfer(QC): 5 Car Transfer (QC): 5 Does the Patient Walk: Yes Walk 10 feet (QC): 5 Walk 10ft-Uneven Surface(QC): 5 Walk 50ft with 2 Turns (QC): 5 Walk 150 ft (QC): 5 Does the Pt use WC or Scooter?: No Wheel 50 feet with 2 turns (QC: 9 1 Step (curb) (QC): 5 4 Steps (QC): 5 12 Steps (QC): 5 Picking up an Object (QC): 5 OT Homicide Squad Commanding Officer Goals Homicide Squad Commanding Officer Goals Time Frame: February 13, 2020 Eating (QC): 6 (met) Oral Hygiene (QC): 6 (not met) Shower/Bathe Self (QC): 4 (not met) Upper Body Dressing (QC): 5 (not met) Lower Body Dressing (QC): 4 (not met) On/Off Footwear (QC): 4 (not met) Toileting Hygiene (QC): 6 (not met) Toilet/Commode Transfer (QC): 5 (not met) Additional Goals: 1-Demonstrate ADL Tasks, 2-Verbalize Understanding, 3- ImproveStrength/Lorena 1=Demonstrate adherence to instructed precautions during ADL tasks. 2=Patient will verbalize/demonstrate understanding of assistive devices/modifications for ADL. 3=Patient will improve strength/tolerance for activity to enable patient to perform ADL's. REGGIE GARCIA OT February 05, 2020 15:23
== END 2020-02-05 10:30 | DRG 193 ==
LOC: 4TH 12:05 → UNDOADMIN 12:05 → UNDOLOA 01-30 12:59 → UNDODISIN 02-05 10:30
PROVIDERS: ADMIT Family Medicine; ATTEND Family Medicine
PROC: 0DB78ZX Excision of Stomach, Pylorus, Via Natural or Artificial Opening Endoscopic, Diagnostic (ICD-10-PCS; 2020-02-04)
PROC: 0DB68ZX Excision of Stomach, Via Natural or Artificial Opening Endoscopic, Diagnostic (ICD-10-PCS; 2020-02-04)
PROC: 0DB48ZX Excision of Esophagogastric Junction, Via Natural or Artificial Opening Endoscopic, Diagnostic (ICD-10-PCS; 2020-02-04)
PROC: 0DB98ZX Excision of Duodenum, Via Natural or Artificial Opening Endoscopic, Diagnostic (ICD-10-PCS; principal; 2020-02-04 09:00)
DX: J18.9 Pneumonia, unspecified organism (principal); J44.0 Chronic obstructive pulmonary disease with (acute) lower respiratory infection; E43 Unspecified severe protein-calorie malnutrition; R64 Cachexia; I75.021 Atheroembolism of right lower extremity; J96.11 Chronic respiratory failure with hypoxia; G72.81 Critical illness myopathy; K92.1 Melena; K22.10 Ulcer of esophagus without bleeding; K29.70 Gastritis, unspecified, without bleeding; R53.1 Weakness; R53.81 Other malaise; F29 Unspecified psychosis not due to a substance or known physiological condition; R41.0 Disorientation, unspecified; D50.9 Iron deficiency anemia, unspecified; E53.8 Deficiency of other specified B group vitamins; D63.8 Anemia in other chronic diseases classified elsewhere; K44.9 Diaphragmatic hernia without obstruction or gangrene; I48.0 Paroxysmal atrial fibrillation; R91.8 Other nonspecific abnormal finding of lung field; Z87.891 Personal history of nicotine dependence
CPT/HCPCS: 36415; 71045; 80048; 80053; 81000; 83540; 83605; 83735; 83880; 84100; 84145; 84484; 85007; 85014; 85018; 85025; 85027; 85610; 85730; 87081; 87449; 87899; 93005; 94640; 94760

== ENCOUNTER → 2020-01-30 | Day surgery (SDC) | payer MEDICARE ==
[2020-01-30] VITALS (9 sets, daily range): BP systolic 87–101; BP diastolic 62–72
[~2020-01-30] VITALS: Ht 175.3 cm; Wt 64.0 kg
[~2020-01-30] MED LIST changes: +HEParin (CATH LAB) 2,000 ML IV ONE; +LIDOCAINE 1% INJ 20 ML 20 ML VIAL ONE; +MIDAZOLAM 5 MG/5 ML (VERSED) VIAL ONE; +NS IV 1000 ML 1,000 ML IV SCH; +NS IV 1000 ML 1,000 ML ONE; +RT-ALBUTEROL/IPRATROPIUM 3 ML (DUONEB) VIAL ONE; +fentaNYL INJECTION 100 MCG/2 ML AMP ONE
--- OUTSIDE RECORDS SUMMARY | 2020-01-30 14:49 | XMS REPORT | Continuity of Care Document ---
Author Organization Unknown Address Unknown Phone Unavailable Allergies Active Description Code Type Severity Reaction Onset Reported/Identified Relationship to Patient Clinical Status Yes NO KNOWN DRUG ALLERGIES UNKNOWN UNKNOWN Yes No Known Drug Allergies [id number] Drug Allergy Mild N/A 07/11/2009 Medications Medication [...] F17.210 NICOTINE DEPENDENCE, CIGARETTES, UNCOMPL 01/12/2020 BLANE JANI MD Ot J18. 9 PNEUMONIA, UNSPECIFIED ORGANISM 01/12/2020 SUSY FRIED, BLANE Harris Ot J44. 0 CHR OBSTRUCTIVE PULMON DISEASE WITH (ACU 01/12/2020 SUSY FRIED, BLANE Harris Ot R06. 03 ACUTE RESPIRATORY DISTRESS 01/12/2020 BLANE JAIN MD Ot D64. 9 ANEMIA, UNSPECIFIED 01/12/2020 SUSY FRIED, BLANE Harris Ot E86. 0 DEHYDRATION 01/12/2020 SUSY FRIED, BLANE Harris Ot E87. 6 HYPOKALEMIA 01/12/2020 BLANE JAIN [...] DISEASE WITH (ACU 01/12/2020 SUSY FRIED, BLANE Hraris Ot R06. 03 ACUTE RESPIRATORY DISTRESS 01/13/2020 SUSY FRIED, BLANE Harris Ot D64. 9 ANEMIA, UNSPECIFIED 01/13/2020 SUYS FRIED, BLANE Harris Ot E86. 0 DEHYDRATION [...] JAIN MD Ot E87. 6 HYPOKALEMIA 01/13/2020 BLNAE JAIN MD Ot F17.210 NICOTINE DEPENDENCE, CIGARETTES, [...] Ot J18. 9 PNEUMONIA, UNSPECIFIED ORGANISM 01/14/2020 BLNAE JAIN MD Ot J44. 0 CHR OBSTRUCTIVE [...] AND THROMBOSIS OF ARTERIES OF T 01/18/2020 LBANE JAIN MD Ot J18. 9 PNEUMONIA, UNSPECIFIED [...] OTHER NONSPECIFIC ABNORMAL FINDING OF NEVA 01/20/2020 BLANE JAIN MD Ot A41. 9 SEPSIS, UNSPECIFIED ORGANISM 01/20/2020 BLANE JAIN MD Ot D64. 9 ANEMIA, UNSPECIFIED 01/20/2020 BLANE JAIN MD Ot E86. 0 DEHYDRATION 01/20/2020 BLANE JAIN MD Ot E87. 6 HYPOKALEMIA 01/20/2020 BLANE JAIN MD Ot F17.210 NICOTINE DEPENDENCE, [...] BLANE JAIN MD Ot R64 CACHEXIA 01/21/2020 BLANE JAIN MD Ot R65. 20 SEVERE [...] CHR OBSTRUCTIVE PULMON DISEASE WITH (ACU 01/22/2020 BALNE JAIN MD Ot J96. 01 ACUTE RESPIRATORY [...] 8 OTHER NONSPECIFIC ABNORMAL FINDING OF NEVA 01/23/2020 BLANE JAIN MD Ot A41. 9 SEPSIS, UNSPECIFIED ORGANISM 01/23/2020 BLANE JAIN MD Ot D64. 9 ANEMIA, UNSPECIFIED 01/23/2020 BLANE JAIN MD Ot E86. 0 DEHYDRATION 01/23/2020 BLANE JAIN MD Ot E87. 6 HYPOKALEMIA 01/23/2020 BLANE JAIN MD Ot F17.210 NICOTINE DEPENDENCE, CIGARETTES, UNCOMPL 01/23/2020 BLANE JAIN MD Ot I48. 91 UNSPECIFIED ATRIAL FIBRILLATION 01/23/2020 BLANE JAIN MD Ot I74. 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 9 PNEUMONIA, UNSPECIFIED ORGANISM 01/23/2020 BLANE JAIN MD Ot J44. 0 CHR OBSTRUCTIVE PULMON DISEASE WITH (ACU 01/23/2020 BLANE JAIN MD Ot J96. 01 ACUTE RESPIRATORY FAILURE WITH HYPOXIA 01/23/2020 BLANE JAIN MD Ot R64 CACHEXIA 01/23/2020 BLANE JAIN MD Ot R65. 20 SEVERE SEPSIS WITHOUT SEPTIC SHOCK 01/23/2020 BLANE JAIN MD Ot R91. 8 OTHER NONSPECIFIC ABNORMAL FINDING OF NEVA 01/23/2020 BLANE JAIN MD Ot A41. 9 SEPSIS, UNSPECIFIED ORGANISM 01/23/2020 BLANE JAIN MD Ot D50. 9 IRON DEFICIENCY ANEMIA, UNSPECIFIED 01/23/2020 BLANE JAIN MD Ot D63. 8 ANEMIA IN OTHER CHRONIC DISEASES CLASSIF 01/23/2020 BLANE JAIN MD Ot E43 UNSPECIFIED SEVERE PROTEIN-CALORIE MALNU 01/23/2020 BLANE JAIN MD Ot E53. 8 DEFICIENCY OF OTHER SPECIFIED B GROUP 01/23/2020 BLANE JAIN MD Ot E86. 0 DEHYDRATION 01/23/2020 BLANE JAIN MD Ot E87. 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 0 PAROXYSMAL ATRIAL FIBRILLATION 01/23/2020 BLANE JAIN MD, Ot I74. 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 9 HYPOTENSION, UNSPECIFIED 01/23/2020 BLANE JAIN MD, Ot J18. 9 PNEUMONIA, UNSPECIFIED ORGANISM 01/23/2020 BLANE JAIN MD, Ot J44. 0 CHR OBSTRUCTIVE PULMON DISEASE WITH (ACU 01/23/2020 BLANE JAIN MD, Ot J96. 21 ACUTE AND CHRONIC RESPIRATORY FAILURE [place] 01/23/2020 BLANE JAIN MD Ot R57. 9 SHOCK, UNSPECIFIED 01/23/2020 BLANE JAIN MD Ot R64 CACHEXIA 01/23/2020 BLANE JAIN MD, Ot R65. 20 SEVERE SEPSIS WITHOUT SEPTIC SHOCK 01/23/2020 BLANE JAIN MD Ot R91. 8 OTHER NONSPECIFIC ABNORMAL FINDING OF NEVA 01/23/2020 BLANE JAIN MD Ot Z20.828 CONTACT W AND EXPOSURE TO OTH VIRAL COMM Procedures Code Description Performed By Per formed On [id number] DI LATION OF RIGHT FEMORAL ARTERY, PERCUT 01/13/2020 [id number] DI LATION OF RIGHT POPLITEAL ARTERY, PERC 01/13/2020 [id number] IN TRODUCE OF OTH THROMBOLYTIC INTO PERIP 01/13/2020 [id number] FL UOROSCOPY OF AORTA, BI LE ART USING L 01/13/2020 [id number] FL UOROSCOPY OF R LOW EXTREM ART USING L 01/13/2020 [id number] IN SERTION OF ENDOTRACHEAL AIRWAY INTO TR 01/17/2020 [id number] RE SPIRATORY VENTILATION, 24- 96 CONSECUTI 01/17/2020 Results Test Result Range BNP - 01/11/20 [...] COVID19 - 01/11/20 13:25 COVID19 Sent to [facility], Results have been scanned Influenza - 01/11/20 [...] 01/12/20 07:45 PROCALCITONIN (PCT) 1.36 ng/mL <0.10 [id number] - 01/12/20 07:45 Prothrombin time (PT) in [...] pa bel - 01/15/20 05:50 WRISTBAND NUMBER [id number] NRG ABO+Rh group AP NRG Blood group [...] 08:30 Sputum Gram stain No bacteria seen NRG Bacterial sputum culture - 01/17/20 08:3 0 QUANTITY OF GROWTH Rare NRG Bacterial sputum culture [id number] NRG Arterial blood gas measurement - 0 10:00 [...] Automated blood platelet mean volume measurement 9.4 [[facility]] 7.4-10.4 Automated blood neutrophils/100 leukocytes 94 % [...] 0.0-0.1 Manual absolute plasma cell count - 03/06 02:30 Blood monocytes/100 leukocytes 2 % NRG [...] 0.0-0.1 Whole blood basic metabolic panel - 05/0 05/06 05:05 Serum or plasma sodium measurement [...] plasma calcium measurement (mass/volume) 7.2 mg/dL 8.5-10.1 Complete blood count (CBC) with automate d white blood cell (WBC) differential - 01/24/20 06:30 Blood leukocytes automated count (number/volume) 12.1 10*3/uL 4.3-11.0 Blood erythrocytes automated count (number/volume) 2.63 10*6/uL 4.35-5.85 Venous blood hemoglobin measurement (mass/volume) 8.2 g/dL 13.3-17.7 Blood hematocrit (volume fraction) 26 % 40-54 Automated erythrocyte mean corpuscular volume 97 [ foz_us] 80-99 Automated erythrocyte mean corpuscular h emoglobin (mass per erythrocyte) 31 pg 25-34 Automated erythrocyte mean corpuscular h emoglobin concentration measurement (mass/volume) 32 g/dL 32-36 Automated erythrocyte distribution width ratio 16. 5 % 10.0- 14.5 Automated blood platelet count (count/volume) 637 10*3/uL 130-400 Automated blood platelet mean volume measurement 9.1 [foz_us] 7.4-10.4 Automated blood neutrophils/100 leukocytes 82 % 42-75 Automated blood lymphocytes/100 leukocytes 11 % 12-44 Blood monocytes/100 leukocytes 7 % 0-12 Automated blood eosinophils/100 leukocytes 1 % 0-10 Automated blood basophils/100 leukocytes 0 % 0-10 Blood neutrophils automated count (number/volume) 9.9 10*3 1.8-7.8 Blood lymphocytes automated count (number/volume) 1.3 10*3 1.0-4.0 Blood monocytes automated count (number/volume) 0. 8 10*3 0.0-1.0 Automated eosinophil count 0.1 10*3/uL 0 .0-0.3 Automated blood basophil count (count/volume) 0.0 10*3/uL 0.0-0.1 Comprehensive metabolic panel - 01/24/20 06:30 Serum or plasma sodium measurement (moles/volume) 139 mmol/L 135-145 Serum or plasma potassium measurement (moles/volume) 3.6 mmol/L 3.6-5.0 Serum or plasma chloride measurement (moles/volume) 104 mmol/L 98-107 Carbon dioxide 28 mmol/L 21-32 Serum or plasma anion gap determination (moles/volume) 7 mmol/L 5-14 Serum or plasma urea nitrogen measurement (mass/volume ) 13 mg/dL 7-18 Serum or plasma creatinine measurement (mass/volume) 0.44 mg/dL 0.60-1.30 Serum or plasma urea nitrogen/creatinine mass ratio 30 NRG Serum or plasma creatinine measurement w ith calculation of estimated glomerular filtration rate > NRG Serum or plasma glucose measurement (mass/volume) 86 mg/dL 70-105 Serum or plasma calcium measurement (mass/volume) 7.2 mg/dL 8.5-10.1 Serum or plasma total bilirubin measurement (mass/volu me) 0.3 mg/dL 0.1-1.0 Serum or plasma alkaline phosphatase mary surement (enzymatic activity/volume) 57 U/L 40-136 Serum or plasma aspartate aminotransfera se measurement (enzymatic activity/volume) 31 U/L 5-34 Serum or plasma alanine aminotransferase measurement (enzymatic activity/volume) 41 U/L 0-55 Serum or plasma protein measurement (mass/volume) 4.4 g/dL 6.4-8.2 Serum or plasma albumin measurement (mass/volume) 2.0 g/dL 3.2-4.5 CALCIUM CORRECTED 8.8 mg/dL 8.5-10.1 Serum or plasma phosphate measurement (m ass/volume) - 01/24/20 06:30 Serum or plasma phosphate measurement (mass/volume) 2.3 mg/dL 2.3-4.7 Magnesium - 01/24/20 06:30 Magnesium 2.0 mg/dL 1.6-2.4 Serum or plasma lithium measurement (mol es/volume) - 01/24/20 06:30 BNP PT 149.2 pg/mL <100.0 Complete blood count (CBC) with automate d white blood cell (WBC) differential - 01/25/20 04:52 Blood leukocytes automated count (number/volume) 15.1 10*3/uL 4.3-11.0 Blood erythrocytes automated count (number/volume) 2.51 10*6/uL 4.35-5.85 Venous blood hemoglobin measurement (mass/volume) 7.8 g/dL 13.3-17.7 Blood hematocrit (volume fraction) 25 % 40-54 Automated erythrocyte mean corpuscular volume 99 [ foz_us] 80-99 Automated erythrocyte mean corpuscular h emoglobin (mass per erythrocyte) 31 pg 25-34 Automated erythrocyte mean corpuscular h emoglobin concentration measurement (mass/volume) 32 g/dL 32-36 Automated erythrocyte distribution width ratio 17. 3 % 10.0- 14.5 Automated blood platelet count (count/volume) 626 10*3/uL 130-400 Automated blood platelet mean volume measurement 9.2 [foz_us] 7.4-10.4 Automated blood neutrophils/100 leukocytes 83 % 42-75 Automated blood lymphocytes/100 leukocytes 8 % 12-44 Blood monocytes/100 leukocytes 8 % 0-12 Automated blood eosinophils/100 leukocytes 1 % 0-10 Automated blood basophils/100 leukocytes 0 % 0-10 Blood neutrophils automated count (number/volume) 12.5 10*3 1.8-7.8 Blood lymphocytes automated count (number/volume) 1.3 10*3 1.0-4.0 Blood monocytes automated count (number/volume) 1. 2 10*3 0.0-1.0 Automated eosinophil count 0.1 10*3/uL 0 .0-0.3 Automated blood basophil count (count/volume) 0.0 10*3/uL 0.0-0.1 Whole blood basic metabolic panel - 01/15 04:52 Serum or plasma sodium measurement (moles/volume) 140 mmol/L 135-145 Serum or plasma potassium measurement (moles/volume) 3.9 mmol/L 3.6-5.0 Serum or plasma chloride measurement (moles/volume) 106 mmol/L 98-107 Carbon dioxide 28 mmol/L 21-32 Serum or plasma anion gap determination (moles/volume) 6 mmol/L 5-14 Serum or plasma urea nitrogen measurement (mass/volume ) 12 mg/dL 7-18 Serum or plasma creatinine measurement (mass/volume) 0.45 mg/dL 0.60-1.30 Serum or plasma urea nitrogen/creatinine mass ratio 27 NRG Serum or plasma creatinine measurement w ith calculation of estimated glomerular filtration rate > NRG Serum or plasma glucose measurement (mass/volume) 92 mg/dL 70-105 Serum or plasma calcium measurement (mass/volume) 7.2 mg/dL 8.5-10.1 Serum or plasma phosphate measurement (m ass/volume) - 01/25/20 04:52 Serum or plasma phosphate measurement (mass/volume) 2.2 mg/dL 2.3-4.7 Magnesium - 01/25/20 04:52 Magnesium 2.1 mg/dL 1.6-2.4 Complete urinalysis with reflex to cultu re - 01/25/20 21:00 Urine color determination YELLOW NRG Urine clarity determination CLEAR NR G Urine pH measurement by test strip 8.5 5-9 Specific gravity of urine by test strip 1.015 1.016-1.022 Urine protein assay by test strip, semi-quantitative NEGATIVE NEGATIVE Urine glucose detection by automated test strip NE GATIVE NEGATIVE Erythrocytes detection in urine sediment by light micr oscopy TRACE-I NEGATIVE Urine ketones detection by automated test strip NE GATIVE NEGATIVE Urine nitrite detection by test strip NEGATIVE NEGATIVE Urine total bilirubin detection by test strip NEGA TIVE NEGATIVE Urine urobilinogen measurement by automated test strip (mass/volume) 0.2 mg/dL < = 1.0 Urine leukocyte esterase detection by dipstick NEG ATIVE NEGATIVE Automated urine sediment erythrocyte cou nt by microscopy (number/high power field) [HPF] NRG Automated urine sediment leukocyte count by microscopy (number/high power field) 02 [HPF] NRG Bacteria detection in urine sediment by light microsco py FEW NRG Crystals detection in urine sediment by light microsco py PRESENT NRG Casts detection in urine sediment by light microscopy NONE NRG Mucus detection in urine sediment by light microscopy NEGATIVE NRG Complete urinalysis with reflex to culture NO NRG Amorphous sediment detection in urine sediment by ligh t microscopy FEW MYA PHOSPHATE NRG Urine Legionella pneumophila antigen ass ay - 01/25/20 21:10 Urine Legionella pneumophila antigen assay Negativ e NRG Streptococcus pneumoniae antigen detecti on - 01/25/20 21:10 Streptococcus pneumoniae antigen detection Negativ e NRG Complete blood count (CBC) with automate d white blood cell (WBC) differential - 01/26/20 05:00 Blood leukocytes automated count (number/volume) 13.5 10*3/uL 4.3-11.0 Blood erythrocytes automated count (number/volume) 2.71 10*6/uL 4.35-5.85 Venous blood hemoglobin measurement (mass/volume) 8.4 g/dL 13.3-17.7 Blood hematocrit (volume fraction) 27 % 40-54 Automated erythrocyte mean corpuscular volume 98 [ foz_us] 80-99 Automated erythrocyte mean corpuscular h emoglobin (mass per erythrocyte) 31 pg 25-34 Automated erythrocyte mean corpuscular h emoglobin concentration measurement (mass/volume) 32 g/dL 32-36 Automated erythrocyte distribution width ratio 17. 4 % 10.0- 14.5 Automated blood platelet count (count/volume) 587 10*3/uL 130-400 Automated blood platelet mean volume measurement 9.2 [foz_us] 7.4-10.4 Automated blood neutrophils/100 leukocytes 83 % 42-75 Automated blood lymphocytes/100 leukocytes 8 % 12-44 Blood monocytes/100 leukocytes 8 % 0-12 Automated blood eosinophils/100 leukocytes 1 % 0-10 Automated blood basophils/100 leukocytes 0 % 0-10 Blood neutrophils automated count (number/volume) 11.2 10*3 1.8-7.8 Blood lymphocytes automated count (number/volume) 1.0 10*3 1.0-4.0 Blood monocytes automated count (number/volume) 1. 1 10*3 0.0-1.0 Automated eosinophil count 0.2 10*3/uL 0 .0-0.3 Automated blood basophil count (count/volume) 0.0 10*3/uL 0.0-0.1 Whole blood basic metabolic panel - 01/15 10/06 05:00 Serum or plasma sodium measurement (moles/volume) 138 mmol/L 135-145 Serum or plasma potassium measurement (moles/volume) 3.8 mmol/L 3.6-5.0 Serum or plasma chloride measurement (moles/volume) 105 mmol/L 98-107 Carbon dioxide 26 mmol/L 21-32 Serum or plasma anion gap determination (moles/volume) 7 mmol/L 5-14 Serum or plasma urea nitrogen measurement (mass/volume ) 11 mg/dL 7-18 Serum or plasma creatinine measurement (mass/volume) 0.45 mg/dL 0.60-1.30 Serum or plasma urea nitrogen/creatinine mass ratio 24 NRG Serum or plasma creatinine measurement w ith calculation of estimated glomerular filtration rate > NRG Serum or plasma glucose measurement (mass/volume) 106 mg/dL 70-105 Serum or plasma calcium measurement (mass/volume) 7.7 mg/dL 8.5-10.1 Serum or plasma phosphate measurement (m ass/volume) - 01/26/20 05:00 Serum or plasma phosphate measurement (mass/volume) 2.8 mg/dL 2.3-4.7 Magnesium - 01/26/20 05:00 Magnesium 2.1 mg/dL 1.6-2.4 Complete blood count (CBC) with automate d white blood cell (WBC) differential - 01/27/20 05:10 Blood leukocytes automated count (number/volume) 16.0 10*3/uL 4.3-11.0 Blood erythrocytes automated count (number/volume) 2.61 10*6/uL 4.35-5.85 Venous blood hemoglobin measurement (mass/volume) 8.2 g/dL 13.3-17.7 Blood hematocrit (volume fraction) 26 % 40-54 Automated erythrocyte mean corpuscular volume 99 [ foz_us] 80-99 Automated erythrocyte mean corpuscular h emoglobin (mass per erythrocyte) 31 pg 25-34 Automated erythrocyte mean corpuscular h emoglobin concentration measurement (mass/volume) 32 g/dL 32-36 Automated erythrocyte distribution width ratio 17. 8 % 10.0- 14.5 Automated blood platelet count (count/volume) 574 10*3/uL 130-400 Automated blood platelet mean volume measurement 9.3 [foz_us] 7.4-10.4 Automated blood neutrophils/100 leukocytes 83 % 42-75 Automated blood lymphocytes/100 leukocytes 8 % 12-44 Blood monocytes/100 leukocytes 9 % 0-12 Automated blood eosinophils/100 leukocytes 1 % 0-10 Automated blood basophils/100 leukocytes 0 % 0-10 Blood neutrophils automated count (number/volume) 13.2 10*3 1.8-7.8 Blood lymphocytes automated count (number/volume) 1.2 10*3 1.0-4.0 Blood monocytes automated count (number/volume) 1. 5 10*3 0.0-1.0 Automated eosinophil count 0.1 10*3/uL 0 .0-0.3 Automated blood basophil count (count/volume) 0.0 10*3/uL 0.0-0.1 Whole blood basic metabolic panel - 01/15 11/06 05:10 Serum or plasma sodium measurement (moles/volume) 139 mmol/L 135-145 Serum or plasma potassium measurement (moles/volume) 4.1 mmol/L 3.6-5.0 Serum or plasma chloride measurement (moles/volume) 107 mmol/L 98-107 Carbon dioxide 26 mmol/L 21-32 Serum or plasma anion gap [...] or plasma phosphate measurement (m ass/volume) - 01/27/20 05:10 Serum or plasma phosphate measurement (mass/volume) 2.4 mg/dL 2.3-4.7 Magnesium - 01/27/20 05:10 Magnesium 2.2 mg/dL 1.6-2.4 Manual absolute plasma cell count - 01/15 11/06 05:10 Blood monocytes/100 leukocytes 6 % NRG Manual blood segmented neutrophils/100 leukocytes 79 % NRG Blood band neutrophils/100 leukocytes 1 % NRG Manual blood lymphocytes/100 leukocytes 5 % NRG Manual eosinophils/100 leukocytes in nose 1 % NRG Manual blood lymphocytes variant/100 leukocytes 6 % NRG Blood lymphocytes variant/100 leukocytes 2 % NRG Blood anisocytosis detection by light microscopy S LIGHT NRG Blood hypochromia detection by light microscopy MO DERATE NRG Blood target cells detection by light microscopy S LIGHT NRG Blood schistocytes detection by light microscopy S LIGHT NRG PROCALCITONIN (PCT) - 01/27/20 05:10 PROCALCITONIN (PCT) 0.07 ng/mL <0.10 Methicillin resistant Staphylococcus aur eus (MRSA) screening culture - 01/27/20 07:00 Methicillin resistant Staphylococcus aureus (MRSA) scr eening culture NEG NRG Complete blood count (CBC) with automate d white blood cell (WBC) differential - 01/28/20 05:30 Blood leukocytes automated count (number/volume) 13.8 10*3/uL 4.3-11.0 Blood erythrocytes automated count (number/volume) 2.50 10*6/uL 4.35-5.85 Venous blood hemoglobin measurement (mass/volume) 7.9 g/dL 13.3-17.7 Blood hematocrit (volume fraction) 25 % 40-54 Automated erythrocyte mean corpuscular volume 100 [foz_us] 80-99 Automated erythrocyte mean corpuscular h emoglobin (mass per erythrocyte) 32 pg 25-34 Automated erythrocyte mean corpuscular h emoglobin concentration measurement (mass/volume) 32 g/dL 32-36 Automated erythrocyte distribution width ratio 18. 2 % 10.0- 14.5 Automated blood platelet count (count/volume) 519 10*3/uL 130-400 Automated blood platelet mean volume measurement 9.4 [foz_us] 7.4-10.4 Automated blood neutrophils/100 leukocytes 80 % 42-75 Automated blood lymphocytes/100 leukocytes 9 % 12-44 Blood monocytes/100 leukocytes 10 % 0-12 Automated blood eosinophils/100 leukocytes 1 % 0-10 Automated blood basophils/100 leukocytes 0 % 0-10 Blood neutrophils automated count (number/volume) 11.1 10*3 1.8-7.8 Blood lymphocytes automated count (number/volume) 1.3 10*3 1.0-4.0 Blood monocytes automated count (number/volume) 1. 4 10*3 0.0-1.0 Automated eosinophil count 0.1 10*3/uL 0 .0-0.3 Automated blood basophil count (count/volume) 0.0 10*3/uL 0.0-0.1 Whole blood basic metabolic panel - 01/15 12/04 05:30 Serum or plasma sodium measurement (moles/volume) 140 mmol/L 135-145 Serum or plasma potassium measurement (moles/volume) 3.9 mmol/L 3.6-5.0 Serum or plasma chloride measurement (moles/volume) 106 mmol/L 98-107 Carbon dioxide 26 mmol/L 21-32 Serum or plasma anion gap determination (moles/volume) 8 mmol/L 5-14 Serum or plasma urea nitrogen measurement (mass/volume ) 17 mg/dL 7-18 Serum or plasma creatinine measurement (mass/volume) 0.46 mg/dL 0.60-1.30 Serum or plasma urea nitrogen/creatinine mass ratio 37 NRG Serum or plasma creatinine measurement w ith calculation of estimated glomerular filtration rate > NRG Serum or plasma glucose measurement (mass/volume) 107 mg/dL 70-105 Serum or plasma calcium measurement (mass/volume) 7.5 mg/dL 8.5-10.1 Serum or plasma phosphate measurement (m ass/volume) - 01/28/20 05:30 Serum or plasma phosphate measurement (mass/volume) 2.9 mg/dL 2.3-4.7 Magnesium - 01/28/20 05:30 Magnesium 2.0 mg/dL 1.6-2.4 Complete blood count (CBC) with automate d white blood cell (WBC) differential - 01/29/20 05:00 Blood leukocytes automated count (number/volume) 14.8 10*3/uL 4.3-11.0 Blood erythrocytes automated count (number/volume) 2.44 10*6/uL 4.35-5.85 Venous blood hemoglobin measurement (mass/volume) 7.8 g/dL 13.3-17.7 Blood hematocrit (volume fraction) 25 % 40-54 Automated erythrocyte mean corpuscular volume 100 [foz_us] 80-99 Automated erythrocyte mean corpuscular h emoglobin (mass per erythrocyte) 32 pg 25-34 Automated erythrocyte mean corpuscular h emoglobin concentration measurement (mass/volume) 32 g/dL 32-36 Automated erythrocyte distribution width ratio 18. 7 % 10.0- 14.5 Automated blood platelet count (count/volume) 454 10*3/uL 130-400 Automated blood platelet mean volume measurement 9.0 [foz_us] 7.4-10.4 Automated blood neutrophils/100 leukocytes 79 % 42-75 Automated blood lymphocytes/100 leukocytes 10 % 12-44 Blood monocytes/100 leukocytes 10 % 0-12 Automated blood eosinophils/100 leukocytes 1 % 0-10 Automated blood basophils/100 leukocytes 0 % 0-10 Blood neutrophils automated count (number/volume) 11.7 10*3 1.8-7.8 Blood lymphocytes automated count (number/volume) 1.5 10*3 1.0-4.0 Blood monocytes automated count (number/volume) 1. 5 10*3 0.0-1.0 Automated eosinophil count 0.1 10*3/uL 0 .0-0.3 Automated blood basophil count (count/volume) 0.0 10*3/uL 0.0-0.1 Whole blood basic metabolic panel - 01/15 01/04 05:00 Serum or plasma sodium measurement (moles/volume) 139 mmol/L 135-145 Serum or plasma potassium measurement (moles/volume) 4.4 mmol/L 3.6-5.0 Serum or plasma chloride measurement (moles/volume) 105 mmol/L 98-107 Carbon dioxide 26 mmol/L 21-32 Serum or plasma anion gap determination (moles/volume) 8 mmol/L 5-14 Serum or plasma urea nitrogen measurement (mass/volume ) 15 mg/dL 7-18 Serum or plasma creatinine measurement (mass/volume) 0.49 mg/dL 0.60-1.30 Serum or plasma urea nitrogen/creatinine mass ratio 31 NRG Serum or plasma creatinine measurement w ith calculation of estimated glomerular filtration rate > NRG Serum or plasma glucose measurement (mass/volume) 97 mg/dL 70-105 Serum or plasma calcium measurement (mass/volume) 7.9 mg/dL 8.5-10.1 Serum or plasma phosphate measurement (m ass/volume) - 01/29/20 05:00 Serum or plasma phosphate measurement (mass/volume) 2.6 mg/dL 2.3-4.7 Magnesium - 01/29/20 05:00 Magnesium 2.0 mg/dL 1.6-2.4 Serum or plasma troponin i.cardiac measu rement (mass/volume) - 01/29/20 08:50 Serum or plasma troponin i.cardiac measurement (mass/v olume) < ng/mL <0.028 Methicillin resistant Staphylococcus aur eus (MRSA) screening culture - 01/29/20 17:30 Methicillin resistant Staphylococcus aureus (MRSA) scr eening culture NEG NRG Whole blood basic metabolic panel - 01/15 02/03 04:30 Serum or plasma sodium measurement (moles/volume) 139 mmol/L 135-145 Serum or plasma potassium measurement (moles/volume) 4.1 mmol/L 3.6-5.0 Serum or plasma chloride measurement (moles/volume) 103 mmol/L 98-107 Carbon dioxide 27 mmol/L -32 Serum or plasma anion gap determination (moles/volume) 9 mmol/L 5-14 Serum or plasma urea nitrogen measurement (mass/volume ) 14 mg/dL 7-18 Serum or plasma creatinine measurement (mass/volume) 0.44 mg/dL 0.60-1.30 Serum or plasma urea nitrogen/creatinine mass ratio 32 NRG Serum or plasma creatinine measurement w ith calculation of estimated glomerular filtration rate > NRG Serum or plasma glucose measurement (mass/volume) 97 mg/dL 70-105 Serum or plasma calcium measurement (mass/volume) 8.0 mg/dL 8.5-10.1 Serum or plasma phosphate measurement (m ass/volume) - 01/30/20 04:30 Serum or plasma phosphate measurement (mass/volume) 3.4 mg/dL 2.3-4.7 Magnesium - 01/30/20 04:30 Magnesium 2.2 mg/dL 1.6-2.4 Complete blood count (CBC) with automate d white blood cell (WBC) differential - 01/30/20 04:30 Blood leukocytes automated count (number/volume) 13.1 10*3/uL 4.3-11.0 Blood erythrocytes automated count (number/volume) 2.44 10*6/uL 4.35-5.85 Venous blood hemoglobin measurement (mass/volume) 7.8 g/dL 13.3-17.7 Blood hematocrit (volume fraction) 25 % 40-54 Automated erythrocyte mean corpuscular volume 100 [foz_us] 80-99 Automated erythrocyte mean corpuscular h emoglobin (mass per erythrocyte) 32 pg 25-34 Automated erythrocyte mean corpuscular h emoglobin concentration measurement (mass/volume) 32 g/dL 32-36 Automated erythrocyte distribution width ratio 18. 7 % 10.0- 14.5 Automated blood platelet count (count/volume) 436 10*3/uL 130-400 Automated blood platelet mean volume measurement 9.4 [foz_us] 7.4-10.4 Automated blood neutrophils/100 leukocytes 78 % 42-75 Automated blood lymphocytes/100 leukocytes 13 % 12-44 Blood monocytes/100 leukocytes 7 % 0-12 Automated blood eosinophils/100 leukocytes 1 % 0-10 Automated blood basophils/100 leukocytes 0 % 0-10 Blood neutrophils automated count (number/volume) 10.3 10*3 1.8-7.8 Blood lymphocytes automated count (number/volume) 1.7 10*3 1.0-4.0 Blood monocytes automated count (number/volume) 0. 9 10*3 0.0-1.0 Automated eosinophil count 0.1 10*3/uL 0 .0-0.3 Automated blood basophil count (count/volume) 0.0 10*3/uL 0.0-0.1 PT panel in platelet poor plasma by coag ulation assay - 01/30/20 10:55 Prothrombin time (PT) in platelet poor plasma by coagu lation assay 13.5 s 12.2-14.7 INR in platelet poor plasma or blood by coagulation as say 1.0 0.8-1.4 Activated partial thromboplastin time (a PTT) in platelet poor plasma bycoagulation assay - 01/30/20 10:55 Activated partial thromboplastin time (a PTT) in platelet poor plasma bycoagulation assay 33 s 24-35 Encounters ACCT No. Visit Date/Time Discharge Status Pt. Type Provider Facility Loc./Unit Complaint [id number] 01/11/2020 12:51:00 01/11/2020 15:15 :00 DIS Outpatient [place] [facility] [place] [id number] 01/11/2020 13:18:12 Document Registration [id number] 01/11/2020 15:52:00 020 10:54:00 DIS Outpatient BLANE JAIN MD [facility] SEPSIS [id number] 01/23/2020 12:05:[address] Inpatient BLANE JAIN MD [facility] PNEUMONIA;COPD
--- NOTE | 2020-01-30 18:10 | NUR ---
to room 420 per bed, settled in room, bed in low position, brake set, call light in reach, warm covers on, rails up, bedside report given to abby vallejo rn
== END ==
LOC: EDSTATUS 11:40 → CATH 13:00
PROVIDERS: ATTEND Internal Medicine Cardiovascular Disease
DX: I25.10 Atherosclerotic heart disease of native coronary artery without angina pectoris (principal); I74.3 Embolism and thrombosis of arteries of the lower extremities; I48.0 Paroxysmal atrial fibrillation; I77.1 Stricture of artery; I99.8 Other disorder of circulatory system; J96.00 Acute respiratory failure, unspecified whether with hypoxia or hypercapnia; J18.9 Pneumonia, unspecified organism; E87.6 Hypokalemia; D50.9 Iron deficiency anemia, unspecified; E43 Unspecified severe protein-calorie malnutrition; E63.8 Other specified nutritional deficiencies; R91.8 Other nonspecific abnormal finding of lung field; F17.210 Nicotine dependence, cigarettes, uncomplicated
CPT/HCPCS: 36221; 75625; 93458

== ENCOUNTER 2020-02-05 08:56 | Inpatient (IN) | payer MEDICARE ==
[~2020-02-05] VITALS: Ht 177.8 cm; Wt 53.3 kg
[~2020-02-05 08:56] MED LIST changes: -HEParin (CATH LAB) 2,000 ML IV ONE; -LIDOCAINE 1% INJ 20 ML 20 ML VIAL ONE; -MIDAZOLAM 5 MG/5 ML (VERSED) VIAL ONE; -NS IV 1000 ML 1,000 ML IV SCH; -NS IV 1000 ML 1,000 ML ONE; -RT-ALBUTEROL/IPRATROPIUM 3 ML (DUONEB) VIAL ONE; -fentaNYL INJECTION 100 MCG/2 ML AMP ONE
[2020-02-05] MEDS ORDERED: diphenhydrAMINE 25 MG TAB (BENADRYL) PO PRN (09:45)
[2020-02-05] MEDS ORDERED: LOPERAMIDE 2 MG (IMODIUM) TABLET PO PRN (09:45)
[2020-02-05] MEDS ORDERED: LACTULOSE SYRUP 10GM/15ML (ENULOSE) 30ML UDC PO PRN (09:45)
[2020-02-05] MEDS ORDERED: MELATONIN 3 MG TABLET PO PRN (09:45)
[2020-02-05] MEDS ORDERED: BISACODYL 10 MG SUPP (DULCOLAX) PR PRN (09:45)
[2020-02-05] MEDS ORDERED: CALCIUM CARBONATE 500 MG (TUMS) TAB.CHEW PO PRN (09:45)
[2020-02-05] MEDS ORDERED: FLEET ENEMA ADULT 1 EA BTL PR PRN (09:45)
[2020-02-05] MEDS ORDERED: ONDANSETRON 4 MG (ZOFRAN) ORAL DISSOLVE TAB PO PRN (09:45)
[2020-02-05] MEDS ORDERED: guaiFENesin/CODEINE (ROBITUSSIN AC) 10ML UDC PO PRN (09:45)
[2020-02-05] MEDS ORDERED: DOCUSATE SODIUM 100 MG (COLACE) CAP PO PRN (09:45)
--- NOTE | 2020-02-05 10:30 | NUR ---
Arsenio Soto admitted to room 230-1, with an admitting diagnosis of COPD, Myopathy, on 02/05/20 from 4th Floor Med/Surg via wheelchair, accompanied by Staff.ARSENIO SOTO introduced to surroundings, call light, bed controls, phone, TV, temperature control, lights, meal times, smoking policy, visitor policy, side rail policy, bathrooms and showers. Patient Rights given to patient in the handbook.ARSENIO SOTO verbalizes understanding that [facility] is not responsible for the loss or damage to any personal effects or valuables that are kept in the patients posession during their hospitalization. The following Patient Care Plans were discussed with the patient: Discharge Planning, COPD, Myopathy, Falls. ARSENIO SOTO verbalizes understanding of Interdisciplinary Patient Education. Patient and/or family were informed about the Rapid Response Team and its purpose. Patient received Patient Rights Booklet, which includes Privacy Act Statement and Data Collection Information Summary.
--- NOTE | 2020-02-05 11:15 | Physical Therapy Evaluation ---
PT Evaluation-General Medical Diagnosis Admission Date February 05, 2020 at 10:15 Medical Diagnosis: sepsis/respiratory distress Onset Date: Jan 11, 2020 Therapy Diagnosis Therapy Diagnosis: impaired mobility, strength, endurance Referral Physician: Margarita Sinha DO Reason for Referral: Evaluation/Treatment Medical History Pertinent Medical History: Atrial Fib, Alcoholism, Smoking Additional Medical History balloon angioplasty 01/13/20 Reviewed History: Yes Social History Home: Single Level Current Living Status: Alone Prior Prior Level of Function SCALE: Activities may be completed with or without assistive devices. 1-Vjiaeucsqv-niwtoux completes the activity by him/herself with no assistance from a helper. 5-Set-up or Clean-up Assistance-helper sets up or cleans up; patient completes activity. [place] assists only prior to or following the activity. 4-Supervision or Touching Assistance-helper provides verbal cues and/or touching/steadying and/or contact guard assistance as patient completes activity. Assistance may be provided throughout the activity or intermittently. 3-Partial/Moderate Assistance-helper does LESS THAN HALF the effort. [place] lifts, holds or supports trunk or limbs, but provides less than half the effort. 2-Substantial/Maximal Assistance-helper does MORE THAN HALF the effort. [place] lifts or holds trunk or limbs and provides more than half the effort. 7-Gyyhozirp-qxctxw does ALL the effort. Patient does none of the effort to complete the activity. Or, the assistance of 2 or more helpers is required for the patient to complete the activity. If activity was not attempted, code reason: 7-Patient Refused. 9-Not Applicable-not attempted and the patient did not perform the activity before the current illness, exacerbation or injury. 10-Not Attempted due to Environmental Limitations-(lack of equipment, weather restraints, etc.). 88-Not Attempted due to Medical Conditions or Safety Concerns. Bed Mobility: 6 Transfers (B,C,W/C): 6 Gait: 6 Stairs: 6 Indoor Mobility (Ambulation): Independent Stairs: Independent PT Evaluation-Current Subjective Patient in bed pre tx, agrees to PT, has no complaints of pain at rest. Patient needs to use the restroom, he has had a partial BM in bed, transfers to bedside commode with min assist, nurse aide cleans as PT stands with him when he is done, min assist transfer to . Pt/Family Goals "to get stronger" Objective Patient Orientation: Person, Place, Situation Attachments: Oxygen ROM/Strength ROM Lower Extremities WNL Strength Lower Extremities LLE (hip flexion 3/5, knee flexion 3+/5, knee extension 3+/5, dorsiflexion 3/5), RLE (hip flexion 3/5, knee flexion 4-/5, knee extension 4-/5, dorsiflexion 3/5) Sensory Vision: Functional Hearing: Functional Sensation Right Lower Extremit: Impaired Sensation Left Lower Extremity: Intact Sensation Lower Extremities Patient has some numbness in right foot. Transfers Roll Left to Right (QC): 6 Sit to Lying (QC): 6 Lying to Sitting/Side of Bed(Q: 6 Sit to Stand (QC): 3 Chair/Tnw-jh-Cyeti Xfer(QC): 4 Toilet Transfer (QC): 4 Car Transfer (QC): 4 Patient performs bed mobility with independence, supine <-> sit with independence, sit <-> stand with min assist, transfers with CGA, car transfer CGA. Patient has moments of unsteadiness but no LOB, occasional cues needed for hand placement and safety. Gait Does the Patient Walk?: Yes Mode of Locomotion: Walk Anticipated Mode of Locomotion: Walk Walk 10 feet (QC): 4 Walk 50 ft with 2 Turns(QC): 88 Walk 150 ft (QC): 88 Walking 10ft/uneven surface-QC: 4 Distance: 20'x2 Gait Assistive Device: FWW Comments/Gait Description Patient can ambulate 20' with a rolling walker with CGA (including 10' over an uneven surface). Ambulation is slow, unsteady but no assist needed to recover balance at this time. Wheelchair Training Does the Pt Use a Wheelchair?: Yes Distance: 120'x2 Wheel 50 ft with 2 turns (QC): 5 Wheel 150 ft (QC): 88 Type of Wheelchair: Manual Stairs 1 Step (curb) (QC): 88 4 Steps (QC): 88 12 Steps (QC): 88 No stairs attempted today due to BLE weakness, patient's knees would likely buckle. Balance Sitting Static: Normal Sitting Dynamic: Normal Standing Static: Fair Standing Dynamic: Fair Picking up an Object (QC): 88 Assessment/Needs Patient has impaired mobility, strength, endurance. He is unsteady with transfers and ambulation and needs CGA with mobility. Min assist to stand due to BLE weakness. Patient in bed post tx with nurse call, phone, tray, all needs met. Rehab Potential: Fair PT Short Term Goals Short Term Goals Time Frame: February 12, 2020 Roll Left & Right: 6 Sit to lyin Lying to sitting on side of be: 6 Sit to stand: 4 Chair/uyo-tp-hsruo transfer: 4 Walk 10 feet: 4 Walk 50 feet with two turns: 4 PT Prison Goals Prison Goals PT Prison Goals Time Frame: Feb 26, 2020 Roll Left & Right (QC): 6 Sit to Lying (QC): 6 Lying-Sitting on Side/Bed(QC): 6 Sit to Stand (QC): 5 Chair/Iyl-we-Qeais Xfer(QC): 5 Toilet Transfer (QC): 5 Car Transfer (QC): 5 Does the Patient Walk: Yes Walk 10 feet (QC): 5 Walk 50ft with 2 Turns (QC): 5 Walk 150 ft (QC): 5 Walking 10ft on Uneven Surface: 5 1 Step (curb) (QC): 4 4 Steps (QC): 4 12 Steps (QC): 88 Picking up an Object (QC): 88 Wheel 50 feet with 2 turns (QC: 6 Wheel 150 feet: 6 PT Plan Problem List Problem List: Activity Tolerance, Functional Strength, Safety, Balance, Gait, Transfer Treatment/Plan Treatment Plan: Continue Plan of Care Treatment Plan: Education, Functional Activity Lorena, Functional Strength, Gait, Safety, Therapeutic Exercise, Transfers Treatment Duration: Feb 26, 2020 Frequency: tuyet melendez, 60 min per day Estimated Hrs Per Day: 1 hour per day Patient and/or Family Agrees t: Yes Safety Risks/Education Patient Education: Gait Training, Transfer Techniques, Correct Positioning, W/C Management, Safety Issues Teaching Recipient: Patient Teaching Methods: Demonstration, Discussion Response to Teaching: Reinforcement Needed Discharge Recommendations Plan Patient will perform bed mobility and transfer training, balance and endurance training, functional strengthening, stair training, gait training, and education, to improve functional mobility and independence at home. Therapy Discharge Recommendati: Home & Family Time/GCodes Time In: 1015 Time Out: 1100 Total Billed Treatment Time: 45 Total Billed Treatment 1 visit EVM 15' FA 30' MARKO REID PT February 05, 2020 11:15
--- OUTSIDE RECORDS SUMMARY | 2020-02-05 12:16 | XMS REPORT | Continuity of Care Document ---
Author Organization Unknown Address Unknown Phone Unavailable Allergies Active Description Code Type Severity Reaction Onset Reported/Identified Relationship to Patient Clinical Status Yes NO KNOWN DRUG ALLERGIES UNKNOWN UNKNOWN Yes No Known Drug Allergies [id number] Drug Allergy Mild N/A 07/11/2009 Medications Medication [...] MOJGAN ELDRIDGE 038.9 UNSPECIFIED SEPTICEMIA 01/11/2020 MOJGAN LEDRIDGE 285.9 ANEMIA, UNSPECIFIED 01/11/2020 MOJGAN ELDRIDGE 303.9 [...] R06. 03 ACUTE RESPIRATORY DISTRESS 01/12/2020 BLANE AJIN MD Ot D64. 9 ANEMIA, UNSPECIFIED 01/12/2020 [...] OTHER NONSPECIFIC ABNORMAL FINDING OF [place] 01/19/2020 LBANE JAIN MD Ot A41. 9 SEPSIS, UNSPECIFIED [...] Ot F17.210 NICOTINE DEPENDENCE, CIGARETTES, UNCOMPL 01/20/2020 BLNAE JAIN MD Ot I48. 91 UNSPECIFIED ATRIAL [...] Ot A41. 9 SEPSIS, UNSPECIFIED ORGANISM 01/22/2020 BLNAE JAIN MD Ot D64. 9 ANEMIA, UNSPECIFIED [...] (ACU 01/23/2020 BLANE JAIN MD Ot J96. 21 ACUTE AND CHRONIC RESPIRATORY [...] W AND EXPOSURE TO OTH VIRAL COMM 01/30/2020 LBANE JAIN MD, Ot D50. 9 IRON DEFICIENCY ANEMIA, UNSPECIFIED 01/30/2020 BLANE JAIN MD Ot D63. 8 ANEMIA IN OTHER CHRONIC DISEASES CLASSIF 01/30/2020 BLANE JAIN MD Ot E43 UNSPECIFIED SEVERE PROTEIN-CALORIE MALNU 01/30/2020 BLANE JAIN MD, Ot E53. 8 DEFICIENCY OF OTHER SPECIFIED B GROUP 01/30/2020 BLANE JAIN MD Ot F29 UNSP PSYCHOSIS NOT DUE TO A SUBSTANCE OR 01/30/2020 BLANE JAIN MD Ot I48. 0 PAROXYSMAL ATRIAL FIBRILLATION 01/30/2020 BLANE JAIN MD Ot I75.021 ATHEROEMBOLISM OF RIGHT LOWER EXTREMITY 01/30/2020 BLANE JAIN MD Ot J18. 9 PNEUMONIA, UNSPECIFIED ORGANISM 01/30/2020 SUSY MD, BLANE M Ot J44. 0 CHR OBSTRUCTIVE PULMON DISEASE WITH (ACU 01/30/2020 BLANE JAIN MD Ot R19. 5 OTHER FECAL ABNORMALITIES 01/30/2020 BLANE JAIN MD Ot R41. 0 DISORIENTATION, UNSPECIFIED 01/30/2020 BLANE JAIN MD Ot R53. 1 WEAKNESS 01/30/2020 BLANE JAIN MD Ot R53. 81 OTHER MALAISE 01/30/2020 BLANE JAIN MD Ot R64 CACHEXIA 01/30/2020 BLANE JAIN MD Ot R91. 8 OTHER NONSPECIFIC ABNORMAL FINDING OF [place] 01/30/2020 BLANE JAIN MD Ot Z87.891 PERSONAL HISTORY OF NICOTINE DEPENDENCE 01/30/2020 BLANE JAIN MD Ot D50. 9 IRON DEFICIENCY ANEMIA, UNSPECIFIED 01/30/2020 BLANE JAIN MD Ot D63. 8 ANEMIA IN OTHER CHRONIC DISEASES CLASSIF 01/30/2020 BLANE JAIN MD Ot E43 UNSPECIFIED SEVERE PROTEIN-[place]ORIE MALNU 01/30/2020 BLANE JAIN MD Ot E53. 8 DEFICIENCY OF OTHER SPECIFIED B GROUP 01/30/2020 BLANE JAIN MD Ot F29 UNSP PSYCHOSIS NOT DUE TO A SUBSTANCE OR 01/30/2020 BLANE JAIN MD Ot I48. 0 PAROXYSMAL ATRIAL FIBRILLATION 01/30/2020 BLANE JAIN MD Ot I75.021 ATHEROEMBOLISM OF RIGHT LOWER EXTREMITY 01/30/2020 BLANE JAIN MD Ot J18. 9 PNEUMONIA, UNSPECIFIED ORGANISM 01/30/2020 BLANE JAIN MD Ot J44. 0 CHR OBSTRUCTIVE PULMON DISEASE WITH (ACU 01/30/2020 BLANE JAIN MD Ot R19. 5 OTHER FECAL ABNORMALITIES 01/30/2020 BLANE JAIN MD Ot R41. 0 DISORIENTATION, UNSPECIFIED 01/30/2020 BLANE JAIN MD Ot R53. 1 WEAKNESS 01/30/2020 BLANE JAIN MD Ot R53. 81 OTHER MALAISE 01/30/2020 BLANE JAIN MD Ot R64 CACHEXIA 01/30/2020 BLANE JAIN MD Ot R91. 8 OTHER NONSPECIFIC ABNORMAL FINDING OF [place] 01/30/2020 BLANE JAIN MD Ot Z87.891 PERSONAL HISTORY OF NICOTINE DEPENDENCE 02/02/2020 BLANE JAIN MD Ot D50. 9 IRON DEFICIENCY ANEMIA, UNSPECIFIED 02/02/2020 BLANE JAIN MD Ot D63. 8 ANEMIA IN OTHER CHRONIC DISEASES CLASSIF 02/02/2020 BLANE JAIN MD Ot E43 UNSPECIFIED SEVERE PROTEIN-[place]OR[place] MALNU 02/02/2020 BLANE JAIN MD Ot E53. 8 DEFICIENCY OF OTHER SPECIFIED B GROUP 02/02/2020 BLANE JAIN MD Ot F29 UNSP PSYCHOSIS NOT DUE TO A SUBSTANCE OR 02/02/2020 BLANE JAIN MD Ot I48. 0 PAROXYSMAL ATRIAL FIBRILLATION 02/02/2020 BLANE JAIN MD Ot I75.021 ATHEROEMBOLISM OF RIGHT LOWER EXTREMITY 02/02/2020 BLANE JAIN MD Ot J18. 9 PNEUMONIA, UNSPECIFIED ORGANISM 02/02/2020 BLANE JAIN MD Ot J44. 0 CHR OBSTRUCTIVE PULMON DISEASE WITH (ACU 02/02/2020 BLANE JAIN MD Ot R19. 5 OTHER FECAL ABNORMALITIES 02/02/2020 BLANE JAIN MD Ot R41. 0 DISORIENTATION, UNSPECIFIED 02/02/2020 BLANE JAIN MD Ot R53. 1 WEAKNESS 02/02/2020 BLANE JAIN MD Ot R53. 81 OTHER MALAISE 02/02/2020 BLANE JAIN MD Ot R64 [place]HEXIA 02/02/2020 BLANE JAIN MD Ot R91. 8 OTHER NONSPECIFIC ABNORMAL FINDING OF [place] 02/02/2020 BLANE JAIN MD Ot Z87.891 PERSONAL HISTORY OF NICOTINE DEPENDENCE 02/03/2020 BLANE JAIN MD Ot D50. 9 IRON DEFICIENCY ANEMIA, UNSPECIFIED 02/03/2020 BLANE JAIN MD Ot D63. 8 ANEMIA IN OTHER CHRONIC DISEASES CLASSIF 02/03/2020 BLANE JAIN MD Ot E43 UNSPECIFIED SEVERE PROTEIN-[place] MALNU 02/03/2020 BLANE JAIN MD Ot E53. 8 DEFICIENCY OF OTHER SPECIFIED B GROUP 02/03/2020 BLANE JAIN MD Ot F29 UNSP PSYCHOSIS NOT DUE TO A SUBSTANCE OR 02/03/2020 BLANE JAIN MD Ot I48. 0 PAROXYSMAL ATRIAL FIBRILLATION 02/03/2020 BLANE JAIN MD Ot I75.021 ATHEROEMBOLISM OF RIGHT LOWER EXTREMITY 02/03/2020 BLANE JAIN MD Ot J18. 9 PNEUMONIA, UNSPECIFIED ORGANISM 02/03/2020 BLANE JAIN MD Ot J44. 0 CHR OBSTRUCTIVE PULMON DISEASE WITH (ACU 02/03/2020 BLANE JAIN MD Ot R19. 5 OTHER FECAL ABNORMALITIES 02/03/2020 BLANE JAIN MD Ot R41. 0 DISORIENTATION, UNSPECIFIED 02/03/2020 BLANE JAIN MD Ot R53. 1 WEAKNESS 02/03/2020 BLANE JAIN MD Ot R53. 81 OTHER MALAISE 02/03/2020 BLANE JAIN MD Ot R64 CACHEXIA 02/03/2020 BLANE JAIN MD Ot R91. 8 OTHER NONSPECIFIC ABNORMAL FINDING OF [place] 02/03/2020 BLANE JAIN MD Ot Z87.891 PERSONAL HISTORY OF NICOTINE DEPENDENCE 02/04/2020 THERESA BELLAMY MD Ot D50. 9 IRON DEFICIENCY ANEMIA, UNSPECIFIED 02/04/2020 THERESA BELLAMY MD Ot E43 UNSPECIFIED SEVERE PROTEIN-[place]OR[place] MALNU 02/04/2020 THERESA BELLAMY MD Ot E63. 8 OTHER SPECIFIED NUTRITIONAL DEFICIENCIES 02/04/2020 THERESA BELLAMY MD Ot E87. 6 HYPOKALEMIA 02/04/2020 THERESA BELLAMY MD Ot F17.210 NICOTINE DEPENDENCE, CIGARETTES, UNCOMPL 02/04/2020 THERESA BELLAMY MD Ot I25. 10 ATHSCL HEART DISEASE OF [place] CORONARY 02/04/2020 THERESA BELLAMY MD Ot I48. 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 1 STRICTURE OF ARTERY 02/04/2020 THERESA BELLAMY MD Ot I99. 8 OTHER DISORDER OF CIRCULATORY SYSTEM 02/04/2020 THERESA BELLAMY MD Ot J18. 9 PNEUMONIA, UNSPECIFIED ORGANISM 02/04/2020 THERESA BELLAMY MD, Ot J96. 00 ACUTE RESPIRATORY FAILURE, UNSP W HYPOXI 02/04/2020 THERESA BELLAMY MD Ot R91. 8 OTHER NONSPECIFIC ABNORMAL FINDING OF N[place] Procedures Code Description Performed By Per formed On [id number] DI LATION OF RIGHT FEMORAL ARTERY, PERCUT 01/13/2020 [id number] DI LATION OF RIGHT POPLITEAL ARTERY, PERC 01/13/2020 [id number] IN TRODUCE OF OTH THROMBOLYTIC INTO PERIP 01/13/2020 [id number] FL UOROSCOPY OF AORTA, BI LE ART USING L 01/13/2020 [id number] FL UOROSCOPY OF R LOW EXTREM ART USING L 01/13/2020 [id number] IN SERTION OF ENDOTRACHEAL AIRWAY INTO TR 01/17/2020 [id number] RE SPIRATORY VENTILATION, 24- 96 CONSECUTI 01/17/2020 [...] COVID19 - 01/11/20 13:25 COVID19 Sent to [facility], Results have been scanned Influenza - [...] 01/12/20 07:45 PROCALCITONIN (PCT) 1.36 ng/mL <0.10 [id number] - 01/12/20 07:45 Prothrombin time (PT) in [...] pa bel - 01/15/20 05:50 WRISTBAND NUMBER [id number] NRG ABO+Rh group AP NRG Blood group [...] 08:30 Sputum Gram stain No bacteria seen NR Bacterial sputum culture - 01/17/20 08:3 0 QUANTITY OF GROWTH Rare NR Bacterial sputum culture [id number] NR Arterial blood gas measurement - 0 10:00 [...] Whole blood basic metabolic panel - 05/0 12/04 03:29 Serum or plasma sodium measurement [...] 10*3/uL 0.0-0.1 Arterial blood gas measurement - 01/18/2 0 03:22 Blood pCO2 48 mm[Hg] 35-45 [...] NRG Urine Legionella pneumophila antigen ass ay 01/25/20 21:10 Urine Legionella pneumophila antigen assay Negativ e NRG Streptococcus pneumoniae antigen detecti on 01/25/20 21:10 Streptococcus pneumoniae antigen detection Negativ [...] 103 mmol/L 98-107 Carbon dioxide 27 mmol/L 21-32 Serum or plasma anion gap [...] poor plasma bycoagulation assay 33 s 24-35 Complete blood count (CBC) with automate d white blood cell (WBC) differential - 01/31/20 06:27 Blood leukocytes automated count (number/volume) 14.4 10*3/uL 4.3-11.0 Blood erythrocytes automated count (number/volume) 2.38 10*6/uL 4.35-5.85 Venous blood hemoglobin measurement (mass/volume) 7.8 g/dL 13.3-17.7 Blood hematocrit (volume fraction) 24 % 40-54 Automated erythrocyte mean corpuscular volume 101 [foz_us] 80-99 Automated erythrocyte mean corpuscular h emoglobin (mass per erythrocyte) 33 pg 25-34 Automated erythrocyte mean corpuscular h emoglobin concentration measurement (mass/volume) 33 g/dL 32-36 Automated erythrocyte distribution width ratio 19. 1 % 10.0- 14.5 Automated blood platelet count (count/volume) 406 10*3/uL 130-400 Automated blood platelet mean volume measurement 9.2 [foz_us] 7.4-10.4 Automated blood neutrophils/100 leukocytes 81 % 42-75 Automated blood lymphocytes/100 leukocytes 12 % 12-44 Blood monocytes/100 leukocytes 5 % 0-12 Automated blood eosinophils/100 leukocytes 2 % 0-10 Automated blood basophils/100 leukocytes 0 % 0-10 Blood neutrophils automated count (number/volume) 11.7 10*3 1.8-7.8 Blood lymphocytes automated count (number/volume) 1.7 10*3 1.0-4.0 Blood monocytes automated count (number/volume) 0. 8 10*3 0.0-1.0 Automated eosinophil count 0.2 10*3/uL 0 .0-0.3 Automated blood basophil count (count/volume) 0.0 10*3/uL 0.0-0.1 Whole blood basic metabolic panel - 01/15 03/06 06:27 Serum or plasma sodium measurement (moles/volume) 139 mmol/L 135-145 Serum or plasma potassium measurement (moles/volume) 4.1 mmol/L 3.6-5.0 Serum or plasma chloride measurement (moles/volume) 105 mmol/L 98-107 Carbon dioxide 23 mmol/L 21-32 Serum or plasma anion gap determination (moles/volume) 11 mmol/L 5-14 Serum or plasma urea nitrogen measurement (mass/volume ) 17 mg/dL 7-18 Serum or plasma creatinine measurement (mass/volume) 0.45 mg/dL 0.60-1.30 Serum or plasma urea nitrogen/creatinine mass ratio 38 NRG Serum or plasma creatinine measurement w ith calculation of estimated glomerular filtration rate > NRG Serum or plasma glucose measurement (mass/volume) 113 mg/dL 70-105 Serum or plasma calcium measurement (mass/volume) 7.6 mg/dL 8.5-10.1 Serum or plasma phosphate measurement (m ass/volume) - 01/31/20 06:27 Serum or plasma phosphate measurement (mass/volume) 2.5 mg/dL 2.3-4.7 Magnesium - 01/31/20 06:27 Magnesium 2.1 mg/dL 1.6-2.4 Complete blood count (CBC) with automate d white blood cell (WBC) differential - 02/01/20 05:43 Blood leukocytes automated count (number/volume) 14.8 10*3/uL 4.3-11.0 Blood erythrocytes automated count (number/volume) 2.45 10*6/uL 4.35-5.85 Venous blood hemoglobin measurement (mass/volume) 7.9 g/dL 13.3-17.7 Blood hematocrit (volume fraction) 25 % 40-54 Automated erythrocyte mean corpuscular volume 101 [foz_us] 80-99 Automated erythrocyte mean corpuscular h emoglobin (mass per erythrocyte) 32 pg 25-34 Automated erythrocyte mean corpuscular h emoglobin concentration measurement (mass/volume) 32 g/dL 32-36 Automated erythrocyte distribution width ratio 18. 8 % 10.0- 14.5 Automated blood platelet count (count/volume) 418 10*3/uL 130-400 Automated blood platelet mean volume measurement 9.1 [foz_us] 7.4-10.4 Automated blood neutrophils/100 leukocytes 82 % 42-75 Automated blood lymphocytes/100 leukocytes 10 % 12-44 Blood monocytes/100 leukocytes 5 % 0-12 Automated blood eosinophils/100 leukocytes 2 % 0-10 Automated blood basophils/100 leukocytes 0 % 0-10 Blood neutrophils automated count (number/volume) 12.1 10*3 1.8-7.8 Blood lymphocytes automated count (number/volume) 1.5 10*3 1.0-4.0 Blood monocytes automated count (number/volume) 0. 8 10*3 0.0-1.0 Automated eosinophil count 0.4 10*3/uL 0 .0-0.3 Automated blood basophil count (count/volume) 0.0 10*3/uL 0.0-0.1 PROCALCITONIN (PCT) - 02/01/20 05:43 PROCALCITONIN (PCT) 0.22 ng/mL <0.10 Whole blood hemoglobin and hematocrit pa bel - 02/02/20 04:45 Venous blood hemoglobin measurement (mass/volume) 7.4 g/dL 13.3-17.7 Blood hematocrit (volume fraction) 24 % 40-54 Complete blood count (CBC) with automate d white blood cell (WBC) differential - 02/03/20 07:28 Blood leukocytes automated count (number/volume) 15.3 10*3/uL 4.3-11.0 Blood erythrocytes automated count (number/volume) 2.50 10*6/uL 4.35-5.85 Venous blood hemoglobin measurement (mass/volume) 8.0 g/dL 13.3-17.7 Blood hematocrit (volume fraction) 25 % 40-54 Automated erythrocyte mean corpuscular volume 101 [foz_us] 80-99 Automated erythrocyte mean corpuscular h emoglobin (mass per erythrocyte) 32 pg 25-34 Automated erythrocyte mean corpuscular h emoglobin concentration measurement (mass/volume) 32 g/dL 32-36 Automated erythrocyte distribution width ratio 18. 3 % 10.0- 14.5 Automated blood platelet count (count/volume) 413 10*3/uL 130-400 Automated blood platelet mean volume measurement 8.9 [foz_us] 7.4-10.4 Automated blood neutrophils/100 leukocytes 86 % 42-75 Automated blood lymphocytes/100 leukocytes 7 % 12-44 Blood monocytes/100 leukocytes 6 % 0-12 Automated blood eosinophils/100 leukocytes 1 % 0-10 Automated blood basophils/100 leukocytes 0 % 0-10 Blood neutrophils automated count (number/volume) 13.1 10*3 1.8-7.8 Blood lymphocytes automated count (number/volume) 1.0 10*3 1.0-4.0 Blood monocytes automated count (number/volume) 1. 0 10*3 0.0-1.0 Automated eosinophil count 0.2 10*3/uL 0 .0-0.3 Automated blood basophil count (count/volume) 0.0 10*3/uL 0.0-0.1 Comprehensive metabolic panel - 02/03/20 07:28 Serum or plasma sodium measurement (moles/volume) 136 mmol/L 135-145 Serum or plasma potassium measurement (moles/volume) 4.3 mmol/L 3.6-5.0 Serum or plasma chloride measurement (moles/volume) 102 mmol/L 98-107 Carbon dioxide 27 mmol/L 21-32 Serum or plasma anion gap determination (moles/volume) 7 mmol/L 5-14 Serum or plasma urea nitrogen measurement (mass/volume ) 15 mg/dL 7-18 Serum or plasma creatinine measurement (mass/volume) 0.49 mg/dL 0.60-1.30 Serum or plasma urea nitrogen/creatinine mass ratio 31 NRG Serum or plasma creatinine measurement w ith calculation of estimated glomerular filtration rate > NRG Serum or plasma glucose measurement (mass/volume) 111 mg/dL 70-105 Serum or plasma calcium measurement (mass/volume) 8.0 mg/dL 8.5-10.1 Serum or plasma total bilirubin measurement (mass/volu me) 0.2 mg/dL 0.1-1.0 Serum or plasma alkaline phosphatase mary surement (enzymatic activity/volume) 107 U/L 40-136 Serum or plasma aspartate aminotransfera se measurement (enzymatic activity/volume) 31 U/L 5-34 Serum or plasma alanine aminotransferase measurement (enzymatic activity/volume) 38 U/L 0-55 Serum or plasma protein measurement (mass/volume) 5.8 g/dL 6.4-8.2 Serum or plasma albumin measurement (mass/volume) 2.5 g/dL 3.2-4.5 CALCIUM CORRECTED 9.2 mg/dL 8.5-10.1 Blood lactic acid measurement (moles/vol ume) - 02/03/20 07:28 Blood lactic acid measurement (moles/volume) 1.15 mmol/L 0.50-2.00 Manual absolute plasma cell count - 01/15 06/06 07:28 Blood monocytes/100 leukocytes 8 % NRG Manual blood segmented neutrophils/100 leukocytes 83 % NRG Manual blood lymphocytes/100 leukocytes 9 % NRG Blood polychromasia detection by light microscopy SLIGHT NRG Blood anisocytosis detection by light microscopy M ODERATE NRG Blood macrocytes detection by light microscopy SLI GHT NRG Blood toxic granules detection by light microscopy 2+ NRG Blood poikilocytosis detection by light microscopy SLIGHT NRG Blood hypochromia detection by light microscopy SL IGHT NRG PROCALCITONIN (PCT) - 02/03/20 07:28 PROCALCITONIN (PCT) 0.20 ng/mL <0.10 IRON TEST - 02/03/20 07:28 Serum or plasma iron measurement (mass/volume) 41 % 40-180 Encounters ACCT No. Visit Date/Time Discharge Status Pt. Type Provider Facility Loc./Unit Complaint [id number] 01/11/2020 12:51:00 01/11/2020 15:15 :00 DIS Outpatient MOJGAN [place] [facility] [place] [id number] 01/11/2020 13:18:12 Document Registration [id number] 01/30/2020 13:00:00 23:59:59 CLS Outpatient JOSESITO FRIED, THERESA [place] [facility] CATH CHEST PAIN [id number] 01/11/2020 15:52:00 10:54:00 DIS Inpatient BLANE JAIN MD [facility] 4TH SEPSIS [id number] 01/23/2020 12:05:[address] Inpatient BLANE JAIN MD [facility] 4TH PNEUMONIA;COPD
--- NOTE | 2020-02-05 13:05 | NUR ---
"RD ASSESSMENT PMHx: COPD; tobacco use; s/p EGD: hiatal hernia, esophageal ulcer, gastritis PT INTERACTION: Pt was awake and pleasant during nutrition follow-up. Pt states he has been eating well since last assessment. Note avg PO intake 95% x5d, per chart review. Pt states some recent issues with vomiting, stating his emesis on 02/02 was caused by coughing too hard and not from nausea. Note pt currently on zofran PRN, per chart review. Pt states no issues with constipation or diarrhea. Note last BM was 02/04 and pt currently on bowel regimen of colace BID, and senna BID per chart review. Note abnormal low lab values of Pro 5.8 | alb 2.5, per chart review. ABNORMAL NUTRITION-RELATED LAB VALUES LOW: cr 0.49; Ca 8.0; Pro 5.8; alb 2.5 HIGH: glu 111 Est. kcal needs: [id number] kcal | 30-35 kcal/kg Est. Pro needs: 83-96 g Pro | 1.3-1.5 g Pro/kg PES STATEMENT: Altered nutrition-related lab values - Pro, alb (NC-2.2) related to COPD as evidenced by chart review | Pro 5.8 | alb 2.5 INTERVENTION: Continue with current diet order of Regular diet. Add Ensure HP (vary) to meals TID, for increased protein intake. Provides 160 kcal and 16 g Pro per serving. Will continue to follow and reassess as pt needs, intake, and status change. MONITOR/EVALUATE: PO Intake; Plan of Care; Hydration Status; Weight Status; Lab Values Doug Nunez, MS, RD, LD"
[2020-02-05 13:24] VITALS: BP 109/78
--- NOTE | 2020-02-05 14:23 | Occupational Therapy Eval ---
OT Evaluation-General/PLF Medical Diagnosis Admission Date February 05, 2020 at 10:15 Medical Diagnosis: sepsis/respiratory distress Onset Date: Jan 11, 2020 Therapy Diagnosis Therapy Diagnosis: Weakness, Decreased ADL skills Precautions Precautions/Isolations: Fall Prevention, Standard Precautions Weight Bear Status Weight Bearing Restriction: Weight Bearing/Tolerated Referral Physician: Margarita Sinha DO Referral Reason: Activity Tolerance, Self Care, Evaluation/Treatment, Strengthening/ROM Medical History Pertinent Medical History: Atrial Fib, Alcoholism, Smoking Current History Pt. has had long standing hospitalization with vent support. Transferred this date to ARU to increase overall strength and independence. Reviewed History: Yes Social History Home: Single Level Current Living Status: Alone (Pt. will be living with brother.) Entry Into Home: Stairs With Railing Steps Into Home: 3 Pt. will be discharging to brother's home to stay with him at discharge. ADL-Prior Level of Function SCALE: Activities may be completed with or without assistive devices. 5-Nndminmiko-lpyjywd completes the activity by him/herself with no assistance from a helper. 5-Set-up or Clean-up Assistance-helper sets up or cleans up; patient completes activity. [place] assists only prior to or following the activity. 4-Supervision or Touching Assistance-helper provides verbal cues and/or touching/steadying and/or contact guard assistance as patient completes activi ty. Assistance may be provided throughout the activity or intermittently. 3-Partial/Moderate Assistance-helper does LESS THAN HALF the effort. [place] lifts, holds or supports trunk or limbs, but provides less than half the effort. 2-Substantial/Maximal Assistance-helper does MORE THAN HALF the effort. [place] lifts or holds trunk or limbs and provides more than half the effort. 9-Fnjfdobsb-vdpbeh does ALL the effort. Patient does none of the effort to complete the activity. Or, the assistance of 2 or more helpers is required for the patient to complete the activity. If activity was not attempted, code reason: 7-Patient Refused. 9-Not Applicable-not attempted and the patient did not perform the activity before the current illness, exacerbation or injury. 10-Not Attempted due to Environmental Limitations-(lack of equipment, weather restraints, etc.). 88-Not Attempted due to Medical Conditions or Safety Concerns. ADL PLOF Comments Pt. states that he was independent with daily tasks prior to this hospitalization. However, on original admission pt. was unkempt, with matted hair. Self Care: Unknown Functional Cognition: Unknown OT Current Status Subjective No pain reported. Appearance Pt. in bed. Agrees to work with OT. Mental Status/Objective Patient Orientation: Person, Place Current Upper Extremity ROM WFL ADL-Treatment Eating (QC): 6 Oral Hygiene (QC): 7 Shower/Bathe Self (QC): 4 (CGA in stance.) Upper Body Dressing (QC): 4 Lower Body Dressing (QC): 3 (Pt. requires mod assist overall to thread brief and pants over feet. Pt. able to stand at bedside and don over hips.) On/Off Footwear (QC): 4 Toileting Hygiene (QC): 10 Other Treatments Pt. declines showering but agreed to sponge bathe on side of bed. Increased time and rest breaks needed. However, pt. demonstrates good balance seated on side of bed. Pt. able to bring feet up to him to don slipper socks, but unable to do so to don brief and pants over feet. Pt. declines brushing teeth and teeth are noted to be black at top. Noted necrotic toes on right foot. Nursing assessed this and aware. Pt. able to transfer to and from supine to sit with SBA. Pt. in bed with all needs met at end of treatment. Education OT Patient Education: Correct positioning, Modified ADL techniques, Progress toward Goal/Update tx plan, Purpose of tx/functional activities, Reviewed precautions, Rehab process, Transfer techniques Teaching Recipient: Patient Teaching Methods: Demonstration, Discussion Response to Teaching: Verbalize Understanding, Return Demonstration OT Short Term Goals Short Term Goals Time Frame: February 12, 2020 Eatin Oral hygiene: 4 Toileting hygiene: 4 Shower/bathe self: 4 Upper body dressin Lower body dressin Putting on/taking off footwear: 5 OT Residential Goals Residential Goals Time Frame: Feb 19, 2020 Eating (QC): 6 Oral Hygiene (QC): 6 Toileting Hygiene (QC): 6 Shower/Bathe Self (QC): 5 Upper Body Dressing (QC): 6 Lower Body Dressing (QC): 6 On/Off Footwear (QC): 6 Additional Goals: 1-Demonstrate ADL Tasks, 2-Verbalize Understanding, 3-Improve Strength/Lorena 1=Demonstrate adherence to instructed precautions during ADL tasks. 2=Patient will verbalize/demonstrate understanding of assistive devices/modifications for ADL. 3=Patient will improve strength/tolerance for activity to enable patient to pe rform ADL's. OT Education/Plan Problem List/Assessment Assessment: Decreased Activ Tolerance, Dependent Transfers, Impaired I ADL's, Impaired Self-Care Skills Discharge Recommendations Plan/Recommendations: Continue POC Therapy Discharge Recommendati: Post Acute OT Equpiment Recommendations-D/C: Hip Kit Comment Pt.will need a walker. Pt. will discharge home with brother support. Treatment Plan/Plan of Care Treatment,Training & Education: Yes Patient would benefit from OT for education, treatment and training to promote independence in ADL's, mobility, safety and/or upper extremity function for ADL's. Plan of Care: ADL Retraining, Functional Mobility, Group Exercise/Act as Ind, UE Funct Exercise/Act Treatment Duration: Feb 19, 2020 Frequency: At least 5 of 7 days/Wk (IRF) Estimated Hrs Per Day: Other (Covid waiver) Agreement: Yes Rehab Potential: Fair Time/GCodes Start Time: 11:10 Stop Time: 12:10 Total Time Billed (hr/min): 60 Billed Treatment Time 1, EVL x 15minutes, ADL x 45minutes REGGIE GARCIA OT February 05, 2020 14:23
--- NOTE | 2020-02-05 14:30 | Physical Therapy Daily Note ---
PT Daily Note-Current Subjective Patient in bed pre tx, agrees to PT, has no complaints of pain at rest. Appearance Patient in bed post tx with nurse call, phone, tray, all needs met, heel protectors on. Mental Status Patient Orientation: Person, Place, Situation Attachments: Oxygen Transfers SCALE: Activities may be completed with or without assistive devices. 1-Eyrmfgydtc-fvjeomm completes the activity by him/herself with no assistance from a helper. 5-Set-up or Clean-up Assistance-helper sets up or cleans up; patient completes activity. [place] assists only prior to or following the activity. 4-Supervision or Touching Assistance-helper provides verbal cues and/or touching/steadying and/or contact guard assistance as patient completes activity. Assistance may be provided throughout the activity or intermittently. 3-Partial/Moderate Assistance-helper does LESS THAN HALF the effort. [place] lifts, holds or supports trunk or limbs, but provides less than half the effort. 2-Substantial/Maximal Assistance-helper does MORE THAN HALF the effort. [place] lifts or holds trunk or limbs and provides more than half the effort. 2-Rlgguejxw-xwipup does ALL the effort. Patient does none of the effort to complete the activity. Or, the assistance of 2 or more helpers is required for the patient to complete the activity. If activity was not attempted, code reason: 7-Patient Refused. 9-Not Applicable-not attempted and the patient did not perform the activity before the current illness, exacerbation or injury. 10-Not Attempted due to Environmental Limitations-(lack of equipment, weather restraints, etc.). 88-Not Attempted due to Medical Conditions or Safety Concerns. Exercises Supine Ex: Ankle pumps, Quad Set, Glut sets, Heel Slides, Short Arc Quads, Straight leg raise, Hip abd/add Supine Reps: 20 (AAROM with SLR) Treatments BLE strengthening Assessment Current Status: Fair Progress improving BLE strength PT Short Term Goals Short Term Goals Time Frame: February 12, 2020 Roll Left & Right: 6 Sit to lyin Lying to sitting on side of be: 6 Sit to stand: 4 Chair/zhg-im-gmnmu transfer: 4 Walk 10 feet: 4 Walk 50 feet with two turns: 4 PT Fdc Goals Fdc Goals PT Civil Engineering Director Goals Time Frame: Feb 26, 2020 Roll Left & Right (QC): 6 Sit to Lying (QC): 6 Lying-Sitting on Side/Bed(QC): 6 Sit to Stand (QC): 5 Chair/Pot-zo-Ptgil Xfer(QC): 5 Toilet Transfer (QC): 5 Car Transfer (QC): 5 Does the Patient Walk: Yes Walk 10 feet (QC): 5 Walk 50ft with 2 Turns (QC): 5 Walk 150 ft (QC): 5 Walking 10ft on Uneven Surface: 5 1 Step (curb) (QC): 4 4 Steps (QC): 4 12 Steps (QC): 88 Picking up an Object (QC): 88 Wheel 50 feet with 2 turns (QC: 6 Wheel 150 feet: 6 PT Plan Problem List Problem List: Activity Tolerance, Functional Strength, Safety, Balance, Gait, Transfer Treatment/Plan Treatment Plan: Continue Plan of Care Treatment Plan: Education, Functional Activity Lorena, Functional Strength, Gait, Safety, Therapeutic Exercise, Transfers Treatment Duration: Feb 26, 2020 Frequency: tuyet melendez, 60 min per day Estimated Hrs Per Day: 1 hour per day Patient and/or Family Agrees t: Yes Safety Risks/Education Patient Education: Correct Positioning, Safety Issues Teaching Recipient: Patient Teaching Methods: Demonstration, Discussion Response to Teaching: Reinforcement Needed Time/GCodes Time In: 1415 Time Out: 1430 Total Billed Treatment Time: 15 Total Billed Treatment 1 visit EX MARKO GUZMAN PT February 05, 2020 14:30
--- NOTE | 2020-02-05 16:06 | ST Cognitive Linguistic Eval ---
Speech Evaluation-General Medical Diagnosis sepsis/respiratory distress Onset Date: Jan 11, 2020 Therapy Diagnosis Therapy Diagnosis: Cognitive-communication Referral Referring Physician: Dr. Sinha Medical History Pertinent Medical History: Atrial Fib, Alcoholism, Smoking Reviewed History: Yes Social History Current Living Status: Alone (Pt. will be living with brother.) Speech PLF-Current Status Prior Level of Function Patient lived alone and was independent for his daily needs. Subjective Patient was pleasant and cooperative with the cognitive assessment. Language Eval: Auditory Comprehends Simple Yes/No Ques: Functional Indent/Objects Multiple [place]: Functional Ident/Pics in Multiple [place]: Functional Follows 1-Step Commands: Functional Follows Complex Directions: Functional Follows General Conversations: Functional Language Eval: Verbal Language Completes Spontaneous Greeting: Functional Produces Auto, Serial Info: Functional Imitates Simple Words/Phrases: Functional Word Finding: Functional Requests Basic Needs: Functional States Basic Personal Info: Functional Expresses Complex Ideas: Functional Objective Cognitive Domain Attention: WNL Memory: WNL Problem Solving: Functional Executive Functions: WNL Visuospatial Skills: WNL Composite Severity Rating: WNL Clock Drawing Severity Rating: WNL Objective Formal/Standardized Tests [facility] Mental Status (RUST) Results 27/30, within normal range of function Oral Motor/Speech Production Within Normal Limits Impression The patient is a pleasant 59 y/o male who has been in the hospital for a few weeks due to sepsis and critical illness. Patient was given the UMS with a score of 27/30 obtained. This score is within the normal range of function. Patient does not have cognitive deficits which qualify for skilled ST services at this time. Speech Patient Assess Expression of Ideas/Wants: Expression (4) Understanding Verbal Content: Understands (4) Brief Interview-Mental Status: Yes Repetition of Three Words: Three (3) Temporal Orientation: Year: Correct (3) Temporal Orientation: Month: Accurate within 5 days(2) Temporal Orientation: Day: Correct (1) Recall : Wear to say "Sock": Yes,after cueing (1) Recall : Color: Yes, after cueing (1) Recall : Bed: Yes, no cue required (2) Memory/Recall Ability: Current season, That he or she is in a hsp/hsp unit Speech-Plan Patient/Family Goals Patient/Family Goals: Patient will be living with a brother upon hospital discharge. Treatment Plan Speech Therapy Treatment Plan: Discontinue ST Treatment Duration: February 05, 2020 Frequency: 1 time per week Estimated Hrs Per Day: .25 hour per day Rehab Potential: Fair Barriers to Learning: None identified at this time Pt/Family Agrees to Plan: Yes Safety Risks/Education Teaching Recipient: Patient Teaching Methods: Discussion Response to Teaching: Verbalize Understanding Education Topics Provided: Safety within his room Time Speech Therapy Time In: 14:15 Speech Therapy Time Out: 14:30 Total Billed Time: 15 Billed Treatment Time 1, LILIYANDCOMP LEIGHA Salgado February 05, 2020 16:06
[2020-02-05 17:33] VITALS: BP 99/63
[2020-02-05] MEDS ORDERED: polyethylene glycoL POWDER 17 GM (MIRALAX) PACK PO PRN (17:45)
[2020-02-05] MEDS ORDERED: PATIENT MAY USE OWN MEDS, ALL PO SCH (17:45)
[2020-02-05] MEDS ORDERED: ONDANSETRON 4 MG/2 ML (SDV) Z0FRAN IV PRN (17:45)
[2020-02-05] MEDS ORDERED: MILK OF MAGNESIA 400 MG/5 ML 30 ML UDC PO PRN (17:45)
[2020-02-05] MEDS ORDERED: LORazepam INJ 2 MG/ML (ATIVAN) VIAL IVP PRN (17:45)
[2020-02-05] MEDS ORDERED: ANTACID SUSP 30 ML UDC (MYLANTA) PO PRN (17:45)
[2020-02-05] MEDS ORDERED: BENZONATATE 100 MG (TESSALON) CAPSULE PO PRN (17:45)
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
[2020-02-05] MEDS: ACETAMINOPHEN 325 MG TABLET PO PRN (18:27)
[2020-02-05] MEDS: RIVAROXABAN 20 MG TABLET (XARELTO) PO SCH (18:28)
[2020-02-05] MEDS: CEFEPIME INJECTION 1,000 MG in WATER (STERILE) FOR INJECTION 10 ML IV SCH (18:28)
[2020-02-05] MEDS: RT-ALBUTEROL/IPRATROPIUM 3 ML (DUONEB) VIAL INH SCH ×2 (18:33→23:04)
[2020-02-05] MEDS: polyethylene glycoL POWDER 17 GM (MIRALAX) PACK PO SCH (19:54)
[2020-02-05] MEDS: DOCUSATE SODIUM 100 MG (COLACE) CAP PO SCH (19:54)
[2020-02-05] MEDS: SENNA W/DOCUSATE (SENOKOT S) TABLET PO SCH (19:55)
[2020-02-05] MEDS: oxyCODONE 5 MG/5 ML ORAL SOLN (roxiCODONE) 5 ML UDC PO PRN (20:24)
[2020-02-05] MEDS: risperiDONE 0.25 MG (RisperDAL) TAB PO SCH (20:25)
[2020-02-05] MEDS: guaiFENesin (MUCINEX) 600 MG TAB PO SCH (20:25)
[2020-02-05] MEDS ORDERED: SENNA W/DOCUSATE (SENOKOT S) TABLET PO SCH (21:00)
[2020-02-06] MEDS: CEFEPIME INJECTION 1,000 MG in WATER (STERILE) FOR INJECTION 10 ML IV SCH ×4 (00:13→17:32)
[2020-02-06] MEDS: oxyCODONE 5 MG/5 ML ORAL SOLN (roxiCODONE) 5 ML UDC PO PRN ×5 (00:13→20:36)
[2020-02-06] MEDS: RT-ALBUTEROL/IPRATROPIUM 3 ML (DUONEB) VIAL INH SCH ×6 (02:44→21:51)
[2020-02-06] MEDS: predniSONE 20 MG TAB PO SCH (06:03)
[2020-02-06] MEDS: FERROUS SULF 325 MG (IRON) TAB PO SCH ×2 (06:04→16:27)
[2020-02-06] MEDS: MULTIVIT W/MINERALS TAB (THERAGRAN M) PO SCH (06:04)
--- NOTE | 2020-02-06 06:19 | PM&R Progress Note ---
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 of Systems General: Fatigue Pulmonary: Dyspnea Focused Exam Lactate Level 02/06/20 06:53: Lactic Acid Level 1.45 Objective Exam Vital Signs Vital Signs Date Time Temp Pulse Resp B/P (MAP) Pulse Ox O2 Delivery O2 Flow Rate FiO2 02/06/20 17:31 37.6 103 18 111/78 (89) 95 Nasal Cannula 5.00 Capillary Refill : Less Than 3 Seconds General Appearance: No Apparent Distress, WD/WN, Anxious, Chronically ill, Cachetic HEENT: PERRL/EOMI, Normal ENT Inspection, Pharynx Normal Neck: Full Range of Motion, Normal Inspection, Non Tender, Supple, Carotid Bruit Respiratory: Chest Non Tender, Lungs Clear, No Accessory Muscle Use, No Respiratory Distress, Decreased Breath Sounds Cardiovascular: Regular Rate, Rhythm, No Edema, No Gallop, No JVD, No Murmur, Normal Peripheral Pulses Gastrointestinal: Normal Bowel Sounds, No Organomegaly, No Pulsatile Mass, Non Tender, Soft Back: Normal Inspection, No CVA Tenderness, No Vertebral Tenderness Extremity: Normal Capillary Refill, Normal Inspection, Normal Range of Motion, Non Tender, No Calf Tenderness, No Pedal Edema Neurologic/Psychiatric: Alert, Oriented x3, No Motor/Sensory Deficits, Normal Mood/Affect, Motor Weakness (all extremities due to muscle wasting) Skin: Normal Color, Warm/Dry Lymphatic: No Adenopathy Results/Procedures Lab Laboratory Tests 02/06/20 06:53 Patient resulted labs reviewed. FIM Transfers Therapy Code Descriptions/Definitions Functional [place] Measure: 0=Not Assessed/NA 4=Minimal Assistance 1=Total Assistance 5=Supervision or Setup 2=Maximal Assistance 6=Modified [place] 3=Moderate Assistance 7=Complete IndependenceSCALE: Activities may be completed with or without assistive devices. 9-Gadoxaxfuj-fhgohfj completes the activity by him/herself with no assistance from a helper. 5-Set-up or Clean-up Assistance-helper sets up or cleans up; patient completes activity. [place] assists only prior to or following the activity. 4-Supervision or Touching Assistance-helper provides verbal cues and/or touching/steadying and/or contact guard assistance as patient completes activity. Assistance may be provided throughout the activity or intermittently. 3-Partial/Moderate Assistance-helper does LESS THAN HALF the effort. [place] lifts, holds or supports trunk or limbs, but provides less than half the effort. 2-Substantial/Maximal Assistance-helper does MORE THAN HALF the effort. [place] lifts or holds trunk or limbs and provides more than half the effort. 9-Ewrrtnwst-axheqk does ALL the effort. Patient does none of the effort to com plete the activity. Or, the assistance of 2 or more helpers is required for the patient to complete the activity. If activity was not attempted, code reason: 7-Patient Refused. 9-Not Applicable-not attempted and the patient did not perform the activity before the current illness, exacerbation or injury. 10-Not Attempted due to Environmental Limitations-(lack of equipment, weather restraints, etc.). 88-Not Attempted due to Medical Conditions or Safety Concerns. Roll Left to Right (QC): 6 Sit to Lying (QC): 6 Sit to Stand (QC): 3 Chair/Qlr-rg-Ifumk Xfer(QC): 4 Car Transfer (QC): 4 Gait Training Does the Patient Walk?: Yes Walk 10 feet (QC): 4 Walk 50 ft with 2 Turns(QC): 88 Walk 150 ft (QC): 88 Walking 10ft/uneven surface-QC: 4 Gait Assistive Device: FWW Wheelchair Training Does the Pt Use a Wheelchair?: Yes Distance: 120'x2 Wheel 50 ft with 2 turns (QC): 5 Wheel 150 ft (QC): 88 Type of Wheelchair: Manual Stair Training 1 Step (curb) (QC): 88 4 Steps (QC): 88 12 Steps (QC): 88 Balance Picking up an Object (QC): 88 ADL-Treatment Eating (QC): 6 Oral Hygiene (QC): 7 Shower/Bathe Self (QC): 4 (CGA in stance.) Upper Body Dressing (QC): 4 Lower Body Dressing (QC): 3 (Pt. requires mod assist overall to thread brief and pants over feet. Pt. able to stand at bedside and don over hips.) On/Off Footwear (QC): 4 Toileting Hygiene (QC): 10 Assessment/Plan Assessment and Plan Assess & Plan/Chief Complaint Assessment: Myopathy PNA facility acquired AECOPD O2 dependent AF CAD PVD Cachexia Lung mass s/p VDRF Plan: IRF protocol Monitor BP IV Bbx Fall risk (1) Myopathy (2) Acute occlusion of artery of lower extremity due to thromboembolism Status: Acute (3) Acute respiratory failure with hypoxia Status: Acute (4) Atrial fibrillation with rapid ventricular response Status: Acute (5) Severe protein-calorie malnutrition Status: Acute (6) Pneumonia Status: Acute (7) Debility Status: Acute (8) Iron deficiency anemia Status: Chronic (9) Lung mass Status: Acute (10) Tobacco abuse Status: Chronic (11) Folic acid deficiency Status: Chronic (12) Anemia of chronic disease Status: Chronic (13) COPD (chronic obstructive pulmonary disease) Status: Chronic LOI CORTEZ DO February 06, 2020 06:19
[2020-02-06 06:27] VITALS: BP 100/62
[2020-02-06 07:05] LABS: BASOPHILS % (AUTO) 0 % (0-10); EOSINOPHILS # (AUTO) 0.2 10^3/uL (0.0-0.3); EOSINOPHILS % (AUTO) 2 % (0-10); HEMATOCRIT 30 % (40-54); HEMOGLOBIN 9.3 G/DL (13.3-17.7); LYMPHOCYTES # (AUTO) 1.3 X 10^3 (1.0-4.0); LYMPHOCYTES % (AUTO) 9 % (12-44); MEAN CORPUSCULAR HEMOGLOBIN 31 PG (25-34); MEAN CORPUSCULAR HGB CONC 31 G/DL (32-36); MEAN CORPUSCULAR VOLUME 101 FL (80-99); MEAN PLATELET VOLUME 9.1 FL (7.4-10.4); MONOCYTES # (AUTO) 1.2 X 10^3 (0.0-1.0); MONOCYTES % (AUTO) 8 % (0-12); NEUTROPHILS # (AUTO) 11.8 X 10^3 (1.8-7.8); NEUTROPHILS % (AUTO) 81 % (42-75); PLATELET COUNT 642 10^3/uL (130-400); RED CELL DISTRIBUTION WIDTH 18.4 % (10.0-14.5); WHITE BLOOD COUNT 14.6 10^3/uL (4.3-11.0)
[2020-02-06 07:20] LABS: ALBUMIN 2.9 GM/DL (3.2-4.5); CHLORIDE 101 MMOL/L (98-107); POTASSIUM 4.3 MMOL/L (3.6-5.0); SODIUM 136 MMOL/L (135-145)
[2020-02-06 07:22] LABS: CALCIUM 8.6 MG/DL (8.5-10.1)
[2020-02-06 07:23] LABS: GLUCOSE 113 MG/DL (70-105); TOTAL PROTEIN 6.8 GM/DL (6.4-8.2)
[2020-02-06] MEDS: ACETAMINOPHEN 325 MG TABLET PO PRN (07:23)
[2020-02-06 07:24] LABS: CARBON DIOXIDE 26 MMOL/L (21-32)
[2020-02-06 07:25] LABS: BILIRUBIN,TOTAL 0.1 MG/DL (0.1-1.0)
[2020-02-06 07:26] LABS: ALKALINE PHOSPHATASE 114 U/L (40-136); CREATININE SERUM 0.53 MG/DL (0.60-1.30); GFR ESTIMATED > 60
[2020-02-06 07:27] LABS: BUN/CREATININE RATIO 32
[2020-02-06 07:29] LABS: ALANINE AMINOTRANSFERASE 35 U/L (0-55)
--- NOTE | 2020-02-06 07:54 | NUR ---
Received dietary consult for protein malnutrition. Noted abnormal lab values of Pro and alb in RD note 02/05/20. Placed order for Ensure HP (vary) added to meals TID, for increased protein intake. Provides 160 kcal and 16 g Pro per serving. Will continue to follow and reassess as pt needs, intake, and status change. Doug Nunez, MS, RD, LD
[2020-02-06 08:11] LABS: ANISOCYTOSIS SLIGHT; BAND NEUTROPHILS 11 %; BASOPHILS % (MANUAL) 0 %; EOSINOPHILS % (MANUAL) 1 %; LYMPHOCYTES % (MANUAL) 16 %; MONOCYTES % (MANUAL) 5 %; NEUTROPHILS % (MANUAL) 67 %; POLYCHROMASIA SLIGHT
--- NOTE | 2020-02-06 08:13 | Diagnostic Imaging Report ---
EXAMINATION: Chest 2 view HISTORY: Fever. Shortness of breath. COMPARISON: Chest radiograph on 02/01/2020. FINDINGS: The lung volumes are hyperexpanded. Stable mixed interstitial and alveolar opacities are seen in the left mid lung and right lung base. A few patchy opacities are also seen in the right midlung. No pleural effusion or pneumothorax. The cardiac silhouette is unremarkable. No acute osseous abnormalities. IMPRESSION: 1. Stable mixed opacities in the left midlung and right lung base with unchanged patchy opacities in the right midlung. These findings may represent atelectasis and/or infection. 2. Hyperexpanded lungs, which can be seen with COPD. Dictated by: Dictated on workstation # [id number]
[2020-02-06] MEDS: PANTOPRAZOLE 40 MG (PROTONIX) TAB PO SCH (08:38)
[2020-02-06] MEDS: guaiFENesin (MUCINEX) 600 MG TAB PO SCH ×2 (08:38→20:35)
[2020-02-06] MEDS: NICOTINE 14 MG (NICODERM) PATCH TD SCH ×2 (08:38→11:48)
[2020-02-06] MEDS: DOCUSATE SODIUM 100 MG (COLACE) CAP PO SCH ×2 (08:39→19:42)
[2020-02-06] MEDS: DIGOXIN 0.25 MG (LANOXIN) TAB PO SCH (08:39)
[2020-02-06] MEDS: polyethylene glycoL POWDER 17 GM (MIRALAX) PACK PO SCH ×2 (08:39→19:42)
[2020-02-06] MEDS: FOLIC ACID 1 MG TAB PO SCH (08:39)
[2020-02-06] MEDS: SENNA W/DOCUSATE (SENOKOT S) TABLET PO SCH ×2 (08:39→19:42)
[2020-02-06] MEDS: risperiDONE 0.25 MG (RisperDAL) TAB PO SCH ×2 (08:39→20:35)
[2020-02-06 08:40] VITALS: BP 109/67
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
--- NOTE | 2020-02-06 10:09 | Occupational Ther Daily Note ---
OT Current Status-Daily Note Subjective On first attempt at 0815 pt states he is short of breath and requests to rest. RN was notified. On second attempt pt states O2 was increased and he is feeling much better and is agreeable to participate. Pt reports 8/10 pain in right LE Mental Status/Objective Attachments: Oxygen (6L ) ADL-Treatment Pt declined bathing, but would like to change his shirt. Pt doffed shirt without assist. Donned pullover shirt with set up. Pt washed face and completed oral care with set up while seated in bed. Therapy Code Descriptions/Definitions Functional [facility] Measure: 0=Not Assessed/NA 4=Minimal Assistance 1=Total Assistance 5=Supervision or Setup 2=Maximal Assistance 6=Modified [facility] 3=Moderate Assistance 7=Complete IndependenceSCALE: Activities may be completed with or without assistive devices. 0-Xvnalythkd-intbfhn completes the activity by him/herself with no assistance from a helper. 5-Set-up or Clean-up Assistance-helper sets up or cleans up; patient completes activity. [place] assists only prior to or following the activity. 4-Supervision or Touching Assistance-helper provides verbal cues and/or touching/steadying and/or contact guard assistance as patient completes activity. Assistance may be provided throughout the activity or intermittently. 3-Partial/Moderate Assistance-helper does LESS THAN HALF the effort. [place]ount lifts, holds or supports trunk or limbs, but provides less than half the effort. 2-Substantial/Maximal Assistance-helper does MORE THAN HALF the effort. [place] lifts or holds trunk or limbs and provides more than half the effort. 3-Bxjtvubep-ypallm does ALL the effort. Patient does none of the effort to complete the activity. Or, the assistance of 2 or more helpers is required for the patient to complete the activity. If activity was not attempted, code reason: 7-Patient Refused. 9-Not Applicable-not attempted and the patient did not perform the activity before the current illness, exacerbation or injury. 10-Not Attempted due to Environmental Limitations-(lack of equipment, weather restraints, etc.). 88-Not Attempted due to Medical Conditions or Safety Concerns. Oral Hygiene (QC): 5 Upper Body Dressing (QC): 5 Other Treatment Initially pt declined to sit in chair, requests to complete UE activity while sitting up in bed. Pt performed bilateral UE exercises to increase strength and activity tolerance needed for ADLs and transfers. Pt performed shoulder flexion, forward press, biceps curls, and wrist flex/ext exercises x15 reps with dowel shashank. Rest breaks taken between exercises. Putty activity with bilateral hands to increase strength and coordination/manipulation skills. Pt able to remove small beads from mild resistance putty. Pt requests to sit in chair. Supine to sit without assist. Sit to stand with min assist. Pt transferred to chair with FWW and CGA. Assist to manage O2 tubing. Pt completed graded clothespin task with bilateral hands to increase special forces officer/pinch strength. Pt has mild difficulty with highest resistance clothespins, but is able to complete task with increased time. O2 sats monitored during session and were >95% on 6L. Pt sitting in chair with needs met after session. OT Short Term Goals Short Term Goals Time Frame: February 12, 2020 Eatin Oral hygiene: 4 Toileting hygiene: 4 Shower/bathe self: 4 Upper body dressin Lower body dressin Putting on/taking off footwear: 5 OT County Judge Goals Senior Care Goals Time Frame: Feb 19, 2020 Eating (QC): 6 Oral Hygiene (QC): 6 Toileting Hygiene (QC): 6 Shower/Bathe Self (QC): 5 Upper Body Dressing (QC): 6 Lower Body Dressing (QC): 6 On/Off Footwear (QC): 6 Additional Goals: 1-Demonstrate ADL Tasks, 2-Verbalize Understanding, 3- ImproveStrength/Lorena 1=Demonstrate adherence to instructed precautions during ADL tasks. 2=Patient will verbalize/demonstrate understanding of assistive devices/modifications for ADL. 3=Patient will improve strength/tolerance for activity to enable patient to perform ADL's. OT Education/Plan Discharge Recommendations Plan/Recommendations: Continue POC Treatment Plan/Plan of Care Patient would benefit from OT for education, treatment and training to promote independence in ADL's, mobility, safety and/or upper extremity function for ADL's. Plan of Care: ADL Retraining, Functional Mobility, Group Exercise/Act as Ind, UE Funct Exercise/Act Treatment Duration: Feb 19, 2020 Frequency: At least 5 of 7 days/Wk (IRF) Estimated Hrs Per Day: Other (Covid waiver) Agreement: Yes Rehab Potential: Fair Time/GCodes Start Time: 09:00 Stop Time: 10:00 Total Time Billed (hr/min): 60 Billed Treatment Time 1 visit, ADL(20minutes), EXx3(40minutes) ELEN BLACKWOOD OT February 06, 2020 10:09
--- NOTE | 2020-02-06 11:01 | Physical Therapy Daily Note ---
PT Daily Note-Current Subjective Pt. agrees to Rx. Shares he has been very ill and has had a significant weight loss and is very weak and very short of breath at times, " I told them earlier today to turn that up to 6!!" Pain Numeric Pain Scale: 5-Moderate Pain Location: Right Location Body Site: Hip (groin with SLR) Pain Description: Ache Appearance thin and frail Mental Status Patient Orientation: Normal For Age Attachments: Oxygen (6L) Transfers SCALE: Activities may be completed with or without assistive devices. 8-Txluxfexft-tjostun completes the activity by him/herself with no assistance from a helper. 5-Set-up or Clean-up Assistance-helper sets up or cleans up; patient completes activity. [place] assists only prior to or following the activity. 4-Supervision or Touching Assistance-helper provides verbal cues and/or touching/steadying and/or contact guard assistance as patient completes activity. Assistance may be provided throughout the activity or intermittently. 3-Partial/Moderate Assistance-helper does LESS THAN HALF the effort. [place] lifts, holds or supports trunk or limbs, but provides less than half the effort. 2-Substantial/Maximal Assistance-helper does MORE THAN HALF the effort. [place] lifts or holds trunk or limbs and provides more than half the effort. 9-Tjdzuurvk-fyzxkh does ALL the effort. Patient does none of the effort to complete the activity. Or, the assistance of 2 or more helpers is required for the patient to complete the activity. If activity was not attempted, code reason: 7-Patient Refused. 9-Not Applicable-not attempted and the patient did not perform the activity before the current illness, exacerbation or injury. 10-Not Attempted due to Environmental Limitations-(lack of equipment, weather restraints, etc.). 88-Not Attempted due to Medical Conditions or Safety Concerns. Roll Left & Right (QC): 6 Sit to Lying (QC): 6 Lying to Sitting/Side of Bed(Q: 6 Sit to Stand (QC): 3 Chair/Ghd-jl-Mmyfb Xfer(QC): 4 sit to stand TRFs continue challenging and fatiguing for pt. needs many rest breaks but completed sit to stand from varying heights and required min to mod assist as well as instruction in technique Weight Bearing Right Lower Extremity: Right Weight Bearing/Tolerated Left Lower Extremity: Left Weight Bearing/Tolerated Gait Training Does the Patient Walk?: Yes Walk 10 feet (QC): 4 Walk 50 ft with 2 Turns(QC): 4 Gait Persons Needed: 1 Gait Assistive Device: FWW w/c to follow as pt. fatigues very quickly and requires rest breaks . c/o some SOB and wants to "catch his breath" Pt. wt bears heavy on FWW and has flexed posture, some foot drop noted bilat so gait exhibits some heel strike issues as well Wheelchair Training Does the Pt Use a Wheelchair?: Yes Wheel 50 ft with 2 turns (QC): 4 Wheel 150 ft (QC): 4 Type of Wheelchair: Manual this was good cardio and coordination exercise for pt. he stopped x 2 in 150 ft and also struggled a bit to apply brakes Exercises Supine Ex: Bridging, Ankle pumps (HC stretches 4 x 20 s ea), Quad Set, Rolling, Glut sets, Heel Slides, Scooting, Straight leg raise, Hip abd/add Supine Reps: 8 (x2) Seated Therapy Exercises: Ankle pumps, Sit to stand, Long arc quads, Hip flexion, Hip abd/add Seated Reps: 15 (8 and 7 reps) Assessment Current Status: Good Progress gives full effort, required many rest breaks PT Short Term Goals Short Term Goals Time Frame: February 12, 2020 Roll Left & Right: 6 Sit to lyin Lying to sitting on side of be: 6 Sit to stand: 4 Chair/nrz-cd-fqqwh transfer: 4 Walk 10 feet: 4 Walk 50 feet with two turns: 4 PT Senior Living Goals Senior Living Goals PT Costing Analyst Goals Time Frame: Feb 26, 2020 Roll Left & Right (QC): 6 Sit to Lying (QC): 6 Lying-Sitting on Side/Bed(QC): 6 Sit to Stand (QC): 5 Chair/Vco-tx-Anhzx Xfer(QC): 5 Toilet Transfer (QC): 5 Car Transfer (QC): 5 Does the Patient Walk: Yes Walk 10 feet (QC): 5 Walk 50ft with 2 Turns (QC): 5 Walk 150 ft (QC): 5 Walking 10ft on Uneven Surface: 5 1 Step (curb) (QC): 4 4 Steps (QC): 4 12 Steps (QC): 88 Picking up an Object (QC): 88 Wheel 50 feet with 2 turns (QC: 6 Wheel 150 feet: 6 PT Plan Treatment/Plan Treatment Plan: Continue Plan of Care Treatment Plan: Education, Functional Activity Lorena, Functional Strength, Gait, Safety, Therapeutic Exercise, Transfers Treatment Duration: Feb 26, 2020 Frequency: tuyet waiver, 60 min per day Estimated Hrs Per Day: 1 hour per day Patient and/or Family Agrees t: Yes Safety Risks/Education Patient Education: Gait Training, Transfer Techniques, Correct Positioning, W/C Management, Disease Process, Safety Issues Teaching Recipient: Patient Teaching Methods: Demonstration, Discussion Response to Teaching: Verbalize Understanding, Return Demonstration, Rein forcement Needed Time/GCodes Time In: 1000 Time Out: 1100 Total Billed Treatment Time: 60 Total Billed Treatment 1,GT15m, FA15m,EX15m,WESA87o MELINDA MICHAEL GLOST KILN PLACER February 06, 2020 11:01
--- NOTE | 2020-02-06 11:13 | NUR ---
Muffler Tender responded to palliative care consult. Pt stated he is Spiritism and expressed optimism about getting better and eventually leaving and going home. Muffler Tender provided blessing.
--- NOTE | 2020-02-06 12:55 | Individualized Plan of Care ---
Individualized Plan of Care Rehab Nursing IPOC Order Admission Date February 05, 2020 at 10:15 Current Orders Orders Admission Order(Inpt,Obs,Sdc) (02/05/20 09:36) Vital Signs: Per Unit Policy ( 08,16,00 (02/05/20 09:36) Dry Roaster-Inpt Rehab Con (02/05/20 09:36) Rehab Nursing Orders-Ipoc (02/05/20 09:36) Physical Therapy Rehab Orders (02/05/20 09:36) Occupational Therapy Rehab Ord (02/05/20 09:36) Speech Therapy Rehab Orders (02/05/20 09:36) Cbc With Automated Diff (02/06/20 06:00) Comprehensive Metabolic Panel (02/06/20 06:00) General/Regular (02/05/20 Lunch) Intake & Output 06,14,22 (02/05/20 09:36) Precautions (Aru) (02/05/20 09:36) Rehab-Intensity Of Therapy (02/05/20 09:36) Initiate Admission Nursing Pro .admission (02/05/20 09:36) Alprazolam Tablet (Xanax Tablet) (02/05/20 09:45) Calcium Carbonate Chew Tablet (Antacid C (02/05/20 09:45) Diphenhydramine Tablet (Benadryl Tablet) (02/05/20 09:45) Docusate Sodium Capsule (Colace Capsule) (02/05/20 09:45) Bisacodyl Suppository (Dulcolax Supposit (02/05/20 09:45) Lactulose Oral Solution (Enulose Oral So (02/05/20 09:45) Na Phos/Na Biphos Enema (Fleet Enema Shawn (02/05/20 09:45) Guaifenesin/Codeine Syrup (Robitussin Ac (02/05/20 09:45) Loperamide Tablet (Imodium Tablet) (02/05/20 09:45) Melatonin Tablet (Melatonin Tablet) (02/05/20 09:45) Polyethylene Glycol Powder Pkt (Miralax (02/05/20 21:00) Ondansetron Oral Dissolve Tab (Zofran (02/05/20 09:45) Senna S Tablet (Senokot S Tablet) (02/05/20 21:00) Initiate Admission Nursing Pro .admission (02/05/20 09:36) Transfer - Bed/Room/Location (02/05/20 10:34) Patient Visit (02/05/20 ) Speech Sound Lang Comp (02/05/20 ) Patient Visit (02/05/20 ) Pt Eval Moderate Complexity (02/05/20 ) Functional Activities, Ea 15 (02/05/20 ) Exercise Therap, Ea 15 Min (02/05/20 ) Code/Resuscitation (02/05/20 17:39) Activity (02/05/20 17:39) Dressing Order (Intervention) Q24H (02/05/20 17:39) Initiate Admission Nursing Pro .admission (02/05/20 17:39) Oxygen-Administer 07,19 (02/05/20 17:39) General/Regular (02/06/20 Breakfast) Albuterol/Ipra Inhalation Soln (Duoneb I (02/05/20 18:00) Cefepime Injection (Maxipime Injection) (02/05/20 18:00) Digoxin Tablet (Lanoxin Tablet) (02/06/20 09:00) Docusate Sodium Capsule (Colace Capsule) (02/05/20 21:00) Ferrous Sulfate Tablet (Feosol Tablet) (02/06/20 07:00) Folic Acid Tablet (Folic Acid Tablet) (02/06/20 09:00) Lorazepam Injection (Ativan Injection) (02/05/20 17:45) Magnesium Hydroxide Oral Susp (Mom Oral (02/05/20 17:45) Antacid Suspension (Mylanta Suspension (02/05/20 17:45) Nicotine Patch (Nicoderm Patch) (02/06/20 09:00) Pantoprazole Tablet (Protonix Tablet) (02/06/20 09:00) Patch Removal (Patch Removal) (02/07/20 09:00) Patient May Use Own Meds, All (Patient M (02/05/20 17:45) Senna S Tablet (Senokot S Tablet) (02/05/20 21:00) Sodium Chloride Flush (Catheter Flush Sy (02/05/20 17:45) Benzonatate Capsule (Tessalon Perles) (02/05/20 17:45) Therapeutic Multivitamin Tab (Vitamins, (02/06/20 07:00) Acetaminophen Tablet/Caplet (Tylenol T (02/05/20 17:45) Ondansetron Injection (Zofran Injectio (02/05/20 17:45) Diltiazem Cd 24 Hr Capsule (Cardizem Cd (02/06/20 09:00) Guaifenesin Tablet (Mucinex Tablet) (02/05/20 21:00) Morphine Injection (Morphine Injection (02/05/20 17:45) Oxycodone 5 Mg/5ml Oral Soln (Roxicodone (02/05/20 17:45) Polyethylene Glycol Powder Pkt (Miralax (02/05/20 17:45) Prednisone Tablet (Deltasone Tablet) (02/06/20 07:00) Risperidone Tablet (Risperdal Tablet) (02/05/20 21:00) Communication For Respiratory (02/05/20 17:39) Consult Cardiology (02/05/20 17:39) Consult General Surgery (02/05/20 17:39) Consult Pulmonology (02/05/20 17:39) Dietary Consult (02/05/20 17:39) Occupational Therapy Order (02/05/20 17:39) Oxygen Delivery Set Up (02/05/20 17:39) Pt Evaluate/Treat Request (02/05/20 17:39) Palliative Care Consult (02/05/20 17:39) Physical Therapy Order (02/05/20 17:39) Request Ot Evaluate & Treat (02/05/20 17:39) Svn Small Volume Nebulizer (02/05/20 17:39) Dry Roaster Consult (02/05/20 17:39) Speech Therapy Orders (02/05/20 17:39) Svn Small Volume Nebulizer (02/05/20 17:39) Rivaroxaban Tablet (Xarelto Tablet) (02/05/20 17:45) Procalcitonin (Pct) (02/06/20 06:00) Lactic Acid Analyzer (02/06/20 06:00) Chest Pa/Lat (2 View) (02/06/20 07:00) Manual Differential (02/06/20 06:53) Ensure High Protein (02/06/20 Lunch) Ekg Tracing (02/06/20 08:47) Patient Visit (02/06/20 ) Gait Training, Ea 15 Min (02/06/20 ) Functional Activities, Ea 15 (02/06/20 ) Wheelchair Mgmt/Propulsn 15min (02/06/20 ) Exercise Therap, Ea 15 Min (02/06/20 ) Rehab Nursing Orders: Ongoing Assess. of Cognitive Status, Ongoing Assess. of Function Status, Bladder Management, Bladder Scan, Bladder Training, Bowel Management, Bowel Training, Disease Management & Educaiton, DVT Prophylaxis, Fall Prevention, Fluid/Electrolyte/Nutrition Mgmt, Infection Prevention, Medication Management & Education, Management of Risks & Complications, Management of Skin Intergrity, Nutrition Management, Pain Management, Pat ient/Family Support, Safety Management, Swallow Precautions Intensity of Therapy to be met Patient to be seen: Min.3h per day/5 of 7d PT IPOC Problem List: Activity Tolerance, Functional Strength, Safety, Balance, Gait, Transfer Treatment Plan: Continue Plan of Care Education, Functional Activity Lorena, Functional Strength, Gait, Safety, Therapeutic Exercise, Transfers Treatment Duration: Feb 26, 2020 Frequency: tuyet melendez, 60 min per day Estimated Hrs Per Day: 1 hour per day OT IPOC Problems: Decreased Activ Tolerance, Dependent Transfers, Impaired I ADL's, Impaired Self-Care Skills OT Treatment, Training and Edu: Yes Plan of Care: ADL Retraining, Functional Mobility, Group Exercise/Act as Ind, UE Funct Exercise/Act Treatment Duration: Feb 19, 2020 Frequency: At least 5 of 7 days/Wk (IRF) Estimated Hrs Per Day: Other (Covid waiver) ST IPOC Speech Therapy Treatment Plan: Discontinue ST Treatment Duration: February 05, 2020 Frequency: 1 time per week Estimated Hrs Per Day: .25 hour per day Dry Roaster/Case Mgmt Dry Roaster/Case Managemen: Discharge Planning Dietitian/Grading Clerk Dietitian/Grading Clerk to monitor nutritional status and make changes and/or recommendations as needed and work with speech pathology on dietary upgrades as the occur. 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
--- NOTE | 2020-02-06 13:38 | NUR ---
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 He first presented to [facility], transferred to [facility] inpatient 01/10-01/23/20, to [facility] 01/22-02/05/20, then ARU. Patient comorbidities, in part, are acute respiratory failure with hypoxia, a-fib with RVR, severe protein-calorie malnutrition, debility, anemia of chronic disease. Patient resided alone and indicates he was IADL before this onset of illness. He has [address] at [facility] and has a metal building home he resided in. His overall goal is to return there when well enough and able. 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 One of his joys is the outdoors and he really wants to be able to go fishing. Patient also misses his pet Blue Healer dog named Ravindra Christy. Patient will go to the home of his brother, Geo Soto, at discharge. Rn [facility] Care Unit did use speaker phone to talk to both patient/Geo about this arrangement. Geo states his house is about 1,[address] sq [address] and should accommodate a FWW without difficulty. Geo has a cycle only for transportation, he will phone a friend when it is time to pick patient up. PCP: None at this time, discussed options with patient/Geo, including physicians likely accepting new patients and [facility] SEK. Patient does not have Rx plan at this time, this should be considered regarding [facility] pharmacy options. PHARMACY: [facility] [place] INSURANCE: Medicare only, disability. No supplement or Rx plan. DME: None, never needed. BARRIERS TO DISCHARGE: A tentative discharge plan is in place for care/housing with brother. Patient is very deconditioned and debilitated. His Medicare will provide coverage for some of the DME needed, he may have some items requiring out of pocket expense. Multiple Rx anticipated, this will need review with patient regarding financial hardship/ability to pay. CONTACTS: Geo Soto, [address] [place] [address] Patient and Geo both indicated understanding about the purpose and process of the weekly patient care conference as it pertains to target discharge date and planning.
[2020-02-06] MEDS: RIVAROXABAN 20 MG TABLET (XARELTO) PO SCH (16:27)
[2020-02-06 17:31] VITALS: BP 111/78
[2020-02-07] MEDS: CEFEPIME INJECTION 1,000 MG in WATER (STERILE) FOR INJECTION 10 ML IV SCH ×5 (00:38→23:21)
[2020-02-07] MEDS: CATHETER FLUSH 10 ML SYR IV PRN ×3 (00:38→17:29)
[2020-02-07] MEDS: RT-ALBUTEROL/IPRATROPIUM 3 ML (DUONEB) VIAL INH SCH ×6 (02:19→21:38)
[2020-02-07 05:05] VITALS: BP 105/62
[2020-02-07] MEDS: predniSONE 20 MG TAB PO SCH (05:54)
[2020-02-07] MEDS: FERROUS SULF 325 MG (IRON) TAB PO SCH ×2 (05:54→17:28)
[2020-02-07] MEDS: MULTIVIT W/MINERALS TAB (THERAGRAN M) PO SCH (05:54)
--- NOTE | 2020-02-07 08:01 | PM&R Progress Note ---
Subjective HPI/CC On Admission Date Seen by Provider: February 07, 2020 Time Seen by Provider: 12:30 Subjective/Events-last exam Patient feels better and better each day Cefepime maintained for PNA treatment and will DC that once completed BM+ No pain reported No falls Nutrition improving and he eats snacks all the time Participating in therapies and feels stronger O2 maintained Checked meds and labs Reviewed therapy notes Conferred with care provider of Systems General: Fatigue Focused Exam Lactate Level 02/06/20 06:53: Lactic Acid Level 1.45 Objective Exam Vital Signs Vital Signs Date Time Temp Pulse Resp B/P (MAP) Pulse Ox O2 Delivery O2 Flow Rate FiO2 02/07/20 16:25 36.7 106 18 111/75 (87) 94 Nasal Cannula 6.00 Capillary Refill : Less Than 3 Seconds General Appearance: No Apparent Distress, WD/WN, Anxious, Chronically ill, Cachetic HEENT: PERRL/EOMI, Normal ENT Inspection, Pharynx Normal Neck: Full Range of Motion, Normal Inspection, Non Tender, Supple, Carotid Bruit Respiratory: Chest Non Tender, Lungs Clear, No Accessory Muscle Use, No Respiratory Distress, Decreased Breath Sounds Cardiovascular: Regular Rate, Rhythm, No Edema, No Gallop, No JVD, No Murmur, Normal Peripheral Pulses Gastrointestinal: Normal Bowel Sounds, No Organomegaly, No Pulsatile Mass, Non Tender, Soft Back: Normal Inspection, No CVA Tenderness, No Vertebral Tenderness Extremity: Normal Capillary Refill, Normal Inspection, Normal Range of Motion, Non Tender, No Calf Tenderness, No Pedal Edema Neurologic/Psychiatric: Alert, Oriented x3, No Motor/Sensory Deficits, Normal Mood/Affect, Motor Weakness (all extremities due to muscle wasting) Skin: Normal Color, Warm/Dry Lymphatic: No Adenopathy Results/Procedures Lab Patient resulted labs reviewed. FIM Transfers Therapy Code Descriptions/Definitions Functional [place] Measure: 0=Not Assessed/NA 4=Minimal Assistance 1=Total Assistance 5=Supervision or Setup 2=Maximal Assistance 6=Modified [place] 3=Moderate Assistance 7=Complete IndependenceSCALE: Activities may be completed with or without assistive devices. 0-Qjlkkhzryu-szkcsir completes the activity by him/herself with no assistance from a helper. 5-Set-up or Clean-up Assistance-helper sets up or cleans up; patient completes activity. [place] assists only prior to or following the activity. 4-Supervision or Touching Assistance-helper provides verbal cues and/or touching/steadying and/or contact guard assistance as patient completes activity. Assistance may be provided throughout the activity or intermittently. 3-Partial/Moderate Assistance-helper does LESS THAN HALF the effort. [place] lifts, holds or supports trunk or limbs, but provides less than half the effort. 2-Substantial/Maximal Assistance-helper does MORE THAN HALF the effort. [place] lifts or holds trunk or limbs and provides more than half the effort. 1-Lxztehxix-dkunhn does ALL the effort. Patient does none of the effort to complete the activity. Or, the assistance of 2 or more helpers is required for the patient to complete the activity. If activity was not attempted, code reason: 7-Patient Refused. 9-Not Applicable-not attempted and the patient did not perform the activity before the current illness, exacerbation or injury. 10-Not Attempted due to Environmental Limitations-(lack of equipment, weather restraints, etc.). 88-Not Attempted due to Medical Conditions or Safety Concerns. Roll Left to Right (QC): 6 Sit to Lying (QC): 6 Sit to Stand (QC): 3 Chair/Vft-qt-Sdhdb Xfer(QC): 4 Car Transfer (QC): 4 Gait Training Does the Patient Walk?: Yes Walk 10 feet (QC): 4 Walk 50 ft with 2 Turns(QC): 4 Walk 150 ft (QC): 88 Walking 10ft/uneven surface-QC: 4 Gait Persons Needed: 1 Gait Assistive Device: FWW Wheelchair Training Does the Pt Use a Wheelchair?: Yes Distance: 120'x2 Wheel 50 ft with 2 turns (QC): 4 Wheel 150 ft (QC): 4 Type of Wheelchair: Manual Stair Training 1 Step (curb) (QC): 88 4 Steps (QC): 88 12 Steps (QC): 88 Balance Picking up an Object (QC): 88 ADL-Treatment Eating (QC): 6 Oral Hygiene (QC): 5 Upper Body Dressing (QC): 5 Lower Body Dressing (QC): 3 (Pt. requires mod assist overall to thread brief and pants over feet. Pt. able to stand at bedside and don over hips.) On/Off Footwear (QC): 4 Toileting Hygiene (QC): 10 Assessment/Plan Assessment and Plan Assess & Plan/Chief Complaint Assessment: Myopathy PNA facility acquired AECOPD O2 dependent AF CAD PVD Cachexia Lung mass s/p VDRF Plan: IRF protocol Monitor BP IV Abx Fall risk (1) Myopathy (2) Acute occlusion of artery of lower extremity due to thromboembolism Status: Acute (3) Acute respiratory failure with hypoxia Status: Acute (4) Atrial fibrillation with rapid ventricular response Status: Acute (5) Severe protein-calorie malnutrition Status: Acute (6) Pneumonia Status: Acute (7) Debility Status: Acute (8) Iron deficiency anemia Status: Chronic (9) Lung mass Status: Acute (10) Tobacco abuse Status: Chronic (11) Folic acid deficiency Status: Chronic (12) Anemia of chronic disease Status: Chronic (13) COPD (chronic obstructive pulmonary disease) Status: Chronic LOI CORTEZ DO February 07, 2020 08:01
[2020-02-07] MEDS: oxyCODONE 5 MG/5 ML ORAL SOLN (roxiCODONE) 5 ML UDC PO PRN (08:41)
[2020-02-07] MEDS: risperiDONE 0.25 MG (RisperDAL) TAB PO SCH ×2 (08:42→20:34)
[2020-02-07] MEDS: DIGOXIN 0.25 MG (LANOXIN) TAB PO SCH (08:42)
[2020-02-07] MEDS: SENNA W/DOCUSATE (SENOKOT S) TABLET PO SCH ×2 (08:42→20:34)
[2020-02-07] MEDS: FOLIC ACID 1 MG TAB PO SCH (08:42)
[2020-02-07] MEDS: PANTOPRAZOLE 40 MG (PROTONIX) TAB PO SCH (08:42)
[2020-02-07] MEDS: polyethylene glycoL POWDER 17 GM (MIRALAX) PACK PO SCH ×2 (08:42→20:32)
[2020-02-07] MEDS: guaiFENesin (MUCINEX) 600 MG TAB PO SCH ×2 (08:42→20:33)
[2020-02-07] MEDS: DOCUSATE SODIUM 100 MG (COLACE) CAP PO SCH ×2 (08:42→20:34)
[2020-02-07] MEDS: NICOTINE 14 MG (NICODERM) PATCH TD SCH ×2 (08:42→08:44)
[2020-02-07] MEDS ORDERED: PATCH REMOVAL TP SCH (09:00)
--- NOTE | 2020-02-07 12:00 | Physical Therapy Daily Note ---
PT Daily Note-Current Subjective Pt agreeable. Pt rates pain 10/10 entire (R) LE, nursing present. Next scheduled pain med at noon. Pt agrees to PT. Mental Status Patient Orientation: Person, Place, Situation Transfers SCALE: Activities may be completed with or without assistive devices. 7-Qyfotmtrev-gimrqwx completes the activity by him/herself with no assistance from a helper. 5-Set-up or Clean-up Assistance-helper sets up or cleans up; patient completes activity. [place] assists only prior to or following the activity. 4-Supervision or Touching Assistance-helper provides verbal cues and/or touching/steadying and/or contact guard assistance as patient completes activity. Assistance may be provided throughout the activity or intermittently. 3-Partial/Moderate Assistance-helper does LESS THAN HALF the effort. [place] lifts, holds or supports trunk or limbs, but provides less than half the effort. 2-Substantial/Maximal Assistance-helper does MORE THAN HALF the effort. [place] lifts or holds trunk or limbs and provides more than half the effort. 7-Zqqewloce-lfpbla does ALL the effort. Patient does none of the effort to complete the activity. Or, the assistance of 2 or more helpers is required for the patient to complete the activity. If activity was not attempted, code reason: 7-Patient Refused. 9-Not Applicable-not attempted and the patient did not perform the activity before the current illness, exacerbation or injury. 10-Not Attempted due to Environmental Limitations-(lack of equipment, weather restraints, etc.). 88-Not Attempted due to Medical Conditions or Safety Concerns. CGA for sit-stand Weight Bearing Right Lower Extremity: Right Weight Bearing/Tolerated Left Lower Extremity: Left Weight Bearing/Tolerated Gait Training Gait Assistive Device: FWW Pt amb with FWW, CGA, O2 at 4L/min x 60ft. Pt stayed in room per request. Exercises Seated Therapy Exercises: Ankle pumps, Long arc quads, Hip flexion, Hip abd/add Seated Reps: 20 Assessment Current Status: Fair Progress Pt limited by (R) LE pain. Pt steady on his feet during ambulation in room and during turns. Pt weak but able to stand with CGA only this am. Good participation with therapy. Pt resting in recliner post therapy session. Call light in reach and ambu alarm activated. O2 insitu. PT Short Term Goals Short Term Goals Time Frame: February 12, 2020 Roll Left & Right: 6 Sit to lyin Lying to sitting on side of be: 6 Sit to stand: 4 Chair/yas-vl-imesn transfer: 4 Walk 10 feet: 4 Walk 50 feet with two turns: 4 PT Group Home Goals Group Home Goals PT Group Home Goals Time Frame: Feb 26, 2020 Roll Left & Right (QC): 6 Sit to Lying (QC): 6 Lying-Sitting on Side/Bed(QC): 6 Sit to Stand (QC): 5 Chair/Fbd-jg-Rizwn Xfer(QC): 5 Toilet Transfer (QC): 5 Car Transfer (QC): 5 Does the Patient Walk: Yes Walk 10 feet (QC): 5 Walk 50ft with 2 Turns (QC): 5 Walk 150 ft (QC): 5 Walking 10ft on Uneven Surface: 5 1 Step (curb) (QC): 4 4 Steps (QC): 4 12 Steps (QC): 88 Picking up an Object (QC): 88 Wheel 50 feet with 2 turns (QC: 6 Wheel 150 feet: 6 PT Plan Treatment/Plan Treatment Plan: Continue Plan of Care Treatment Plan: Education, Functional Activity [place], Functional Strength, Gait, Safety, Therapeutic Exercise, Transfers Treatment Duration: Feb 26, 2020 Frequency: tuyet melendez, 60 min per day Estimated Hrs Per Day: 1 hour per day Patient and/or Family Agrees t: Yes Time/GCodes Time In: 1130 Time Out: 1145 Total Billed Treatment Time: 15 Total Billed Treatment 1, gait 10', ther ex 5' OLIVA BISWAS February 07, 2020 12:00
[2020-02-07] MEDS ORDERED: CATHETER FLUSH 10 ML SYR IV PRN (14:45)
--- NOTE | 2020-02-07 15:39 | Cardiology Progress Note ---
Cardiology SOAP Progress Note Subjective: No cardiac complaints. Objective: I&O/Vital Signs 02/08/20 02/08/20 02/08/20 02/08/20 02:28 06:00 07:03 08:00 Temp 36.4 Pulse 99 106 Resp 20 B/P (MAP) 108/63 (78) 110/67 (81) Pulse Ox 80 92 92 92 O2 Delivery Nasal Cannula Nasal Cannula Nasal Cannula Nasal Cannula O2 Flow Rate 2.00 6.00 2.00 2.00 02/08/20 02/08/20 09:00 09:49 Pulse Ox 92 O2 Delivery Nasal Cannula Nasal Cannula O2 Flow Rate 2.00 2.00 02/08/20 00:00 Intake Total 1000 ml Output Total 1275 ml Balance -275 ml Constitutional: AAO x 3 Respiratory: chest is bilaterally symmetric, wheezing Cardiovascular: regular rate-rhythm, S1 and S2 Gastrointestional: soft, audible bowel sounds Extremities: normal range of motion, non-tender, normal inspection, no lower extremity edema bilateral Neurologic/Psychiatric: no motor/sensory deficits, alert, normal mood/affect, oriented x 3 Skin: normal color, warm/dry A/P: Assessment/Dx: Shortness of breath Cough Chest pain Acute limb ischemia Plan: Shortness of breath, cough productive of yellowish sputum, probably nosocomial pneumonia, receiving cefepime, managed by primary care physician Chest pain, nonspecific etiology, cardiac catheterization carried out on January 30, 2020 showing mild to moderate coronary artery disease nonobstructive disease. Chest pain is unlikely to be cardiac, Anemia, managed by primary care team, H&H is monitored, EGD done with Dr. Wright reported gastritis and hiatal hernia. Managed by primary care team Status post acute limb ischemia due to embolization probably from atrial fibril lation. Angiogram was carried out showing total occlusion with thrombus in the distal SFA, received thrombolytics and reestablished flow, doing better. Maintained on Xarelto at this time. Continue to monitor PAF with RVR on 01/24/20, tachycardic again, currently off telemetry 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 Has been on disability Tobaccoism, stopped smoking in December 2019, advised to continue to refrain Anemia of undetermined etiology, managed by the Med [facility] Thank you for your consultation. Please call me if you have any questions. Winston Domingo MD, FACP, FACC, FSCAI, FHRS, CCDS Interventional Cardiology Cardiac Electrophysiology Vascular Medicine and Endovascular Interventions Focused Exam Lactate Level 02/06/20 06:53: Lactic Acid Level 1.45 Steven DOMINGO MD February 07, 2020 15:39
[2020-02-07 16:25] VITALS: BP 111/75
[2020-02-07] MEDS: RIVAROXABAN 20 MG TABLET (XARELTO) PO SCH (17:28)
[2020-02-07] MEDS: CATHETER FLUSH 10 ML SYR IV SCH (20:33)
[2020-02-08] MEDS: RT-ALBUTEROL/IPRATROPIUM 3 ML (DUONEB) VIAL INH SCH ×6 (02:28→22:04)
[2020-02-08 06:00] VITALS: BP 108/63
[2020-02-08] MEDS: CEFEPIME INJECTION 1,000 MG in WATER (STERILE) FOR INJECTION 10 ML IV SCH ×3 (06:10→17:56)
[2020-02-08] MEDS: FERROUS SULF 325 MG (IRON) TAB PO SCH ×2 (06:10→16:24)
[2020-02-08] MEDS: predniSONE 20 MG TAB PO SCH (06:10)
[2020-02-08] MEDS: MULTIVIT W/MINERALS TAB (THERAGRAN M) PO SCH (06:10)
[2020-02-08] MEDS: CATHETER FLUSH 10 ML SYR IV SCH ×2 (06:11→14:25)
[2020-02-08 08:00] VITALS: BP 110/67
--- NOTE | 2020-02-08 08:00 | NUR ---
STATES OXYCODONE TABLETS HELP A LOT MORE THAN THE LIQUID. HAS BEEN TITRATED DOWN TO 2L WITH 92% SAT - WILL CONTINUE TO MONITOR. REMAINS MILDLY TACHYCARDIC.
--- NOTE | 2020-02-08 08:18 | PM&R Progress Note ---
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 of Systems General: Fatigue Pulmonary: Dyspnea Focused Exam Lactate Level 02/06/20 06:53: Lactic Acid Level 1.45 Objective Exam Vital Signs Vital Signs Date Time Temp Pulse Resp B/P (MAP) Pulse Ox O2 Delivery O2 Flow Rate FiO2 02/08/20 15:03 92 Nasal Cannula 2.00 02/08/20 08:00 106 110/67 (81) 02/08/20 06:00 36.4 20 Capillary Refill : Less Than 3 Seconds General Appearance: No Apparent Distress, WD/WN, Anxious, Chronically ill, Cachetic HEENT: PERRL/EOMI, Normal ENT Inspection, Pharynx Normal Neck: Full Range of Motion, Normal Inspection, Non Tender, Supple, Carotid Bruit Respiratory: Chest Non Tender, Lungs Clear, No Accessory Muscle Use, No Respiratory Distress, Decreased Breath Sounds Cardiovascular: Regular Rate, Rhythm, No Edema, No Gallop, No JVD, No Murmur, Normal Peripheral Pulses Gastrointestinal: Normal Bowel Sounds, No Organomegaly, No Pulsatile Mass, Non Tender, Soft Back: Normal Inspection, No CVA Tenderness, No Vertebral Tenderness Extremity: Normal Capillary Refill, Normal Inspection, Normal Range of Motion, Non Tender, No Calf Tenderness, No Pedal Edema Neurologic/Psychiatric: Alert, Oriented x3, No Motor/Sensory Deficits, Normal Mood/Affect, Motor Weakness (all extremities due to muscle wasting) Skin: Normal Color, Warm/Dry Lymphatic: No Adenopathy Results/Procedures Lab Patient resulted labs reviewed. FIM Transfers Therapy Code Descriptions/Definitions Functional [place] Measure: 0=Not Assessed/NA 4=Minimal Assistance 1=Total Assistance 5=Supervision or Setup 2=Maximal Assistance 6=Modified [place] 3=Moderate Assistance 7=Complete IndependenceSCALE: Activities may be completed with or without assistive devices. 8-Zhmxhlcrrt-gjbcgxe completes the activity by him/herself with no assistance from a helper. 5-Set-up or Clean-up Assistance-helper sets up or cleans up; patient completes activity. [place] assists only prior to or following the activity. 4-Supervision or Touching Assistance-helper provides verbal cues and/or touching/steadying and/or contact guard assistance as patient completes activity. Assistance may be provided throughout the activity or intermittently. 3-Partial/Moderate Assistance-helper does LESS THAN HALF the effort. [place] lifts, holds or supports trunk or limbs, but provides less than half the effort. 2-Substantial/Maximal Assistance-helper does MORE THAN HALF the effort. [place] lifts or holds trunk or limbs and provides more than half the effort. 9-Xliiinuvz-blttee does ALL the effort. Patient does none of the effort to complete the activity. Or, the assistance of 2 or more helpers is required for the patient to complete the activity. If activity was not attempted, code reason: 7-Patient Refused. 9-Not Applicable-not attempted and the patient did not perform the activity before the current illness, exacerbation or injury. 10-Not Attempted due to Environmental Limitations-(lack of equipment, weather restraints, etc.). 88-Not Attempted due to Medical Conditions or Safety Concerns. Roll Left to Right (QC): 6 Sit to Lying (QC): 6 Sit to Stand (QC): 3 Chair/Hwr-nq-Fmnng Xfer(QC): 4 Car Transfer (QC): 4 Gait Training Does the Patient Walk?: Yes Walk 10 feet (QC): 4 Walk 50 ft with 2 Turns(QC): 4 Walk 150 ft (QC): 88 Walking 10ft/uneven surface-QC: 4 Gait Persons Needed: 1 Gait Assistive Device: FWW Wheelchair Training Does the Pt Use a Wheelchair?: Yes Distance: 120'x2 Wheel 50 ft with 2 turns (QC): 4 Wheel 150 ft (QC): 4 Type of Wheelchair: Manual Stair Training 1 Step (curb) (QC): 88 4 Steps (QC): 88 12 Steps (QC): 88 Balance Picking up an Object (QC): 88 ADL-Treatment Eating (QC): 6 Oral Hygiene (QC): 5 Upper Body Dressing (QC): 5 Lower Body Dressing (QC): 3 (Pt. requires mod assist overall to thread brief and pants over feet. Pt. able to stand at bedside and don over hips.) On/Off Footwear (QC): 4 Toileting Hygiene (QC): 10 Assessment/Plan Assessment and Plan Assess & Plan/Chief Complaint Assessment: Myopathy PNA facility acquired AECOPD O2 dependent AF CAD PVD Cachexia Lung mass s/p VDRF Plan: IRF protocol Monitor BP IV Abx Fall risk O2 titration (1) Myopathy (2) Acute occlusion of artery of lower extremity due to thromboembolism Status: Acute (3) Acute respiratory failure with hypoxia Status: Acute (4) Atrial fibrillation with rapid ventricular response Status: Acute (5) Severe protein-calorie malnutrition Status: Acute (6) Pneumonia Status: Acute (7) Debility Status: Acute (8) Iron deficiency anemia Status: Chronic (9) Lung mass Status: Acute (10) Tobacco abuse Status: Chronic (11) Folic acid deficiency Status: Chronic (12) Anemia of chronic disease Status: Chronic (13) COPD (chronic obstructive pulmonary disease) Status: Chronic LOI CORTEZ DO February 08, 2020 08:18
[2020-02-08] MEDS: DIGOXIN 0.25 MG (LANOXIN) TAB PO SCH (08:39)
[2020-02-08] MEDS: risperiDONE 0.25 MG (RisperDAL) TAB PO SCH ×2 (08:40→20:05)
[2020-02-08] MEDS: SENNA W/DOCUSATE (SENOKOT S) TABLET PO SCH ×2 (08:40→20:04)
[2020-02-08] MEDS: guaiFENesin (MUCINEX) 600 MG TAB PO SCH ×2 (08:40→20:04)
[2020-02-08] MEDS: DOCUSATE SODIUM 100 MG (COLACE) CAP PO SCH ×2 (08:40→20:05)
[2020-02-08] MEDS: FOLIC ACID 1 MG TAB PO SCH (08:40)
[2020-02-08] MEDS: PANTOPRAZOLE 40 MG (PROTONIX) TAB PO SCH (08:40)
[2020-02-08] MEDS: polyethylene glycoL POWDER 17 GM (MIRALAX) PACK PO SCH ×2 (08:42→19:54)
--- NOTE | 2020-02-08 14:00 | NUR ---
EATS MEAL TRAYS WELL PLUS FREQUENT SNACKS BROUGHT IN BY FAMILY. PATIENT STATES HE CAN TELL HE HAS GAINED WEIGHT.
[2020-02-08] MEDS: RIVAROXABAN 20 MG TABLET (XARELTO) PO SCH (16:24)
[2020-02-08 18:00] VITALS: BP 121/77
[2020-02-09] MEDS: CEFEPIME INJECTION 1,000 MG in WATER (STERILE) FOR INJECTION 10 ML IV SCH ×5 (00:22→23:29)
[2020-02-09] MEDS: CATHETER FLUSH 10 ML SYR IV SCH ×4 (00:22→23:30)
[2020-02-09] MEDS: RT-ALBUTEROL/IPRATROPIUM 3 ML (DUONEB) VIAL INH SCH ×6 (02:29→21:12)
[2020-02-09] MEDS: predniSONE 20 MG TAB PO SCH (05:44)
[2020-02-09] MEDS: MULTIVIT W/MINERALS TAB (THERAGRAN M) PO SCH (05:44)
[2020-02-09] MEDS: FERROUS SULF 325 MG (IRON) TAB PO SCH ×2 (05:44→17:21)
[2020-02-09 06:04] VITALS: BP 115/71
[2020-02-09 06:25] LABS: BASOPHILS # (AUTO) 0.1 10^3/uL (0.0-0.1); BASOPHILS % (AUTO) 1 % (0-10); EOSINOPHILS # (AUTO) 0.2 10^3/uL (0.0-0.3); EOSINOPHILS % (AUTO) 1 % (0-10); HEMATOCRIT 29 % (40-54); LYMPHOCYTES # (AUTO) 2.6 X 10^3 (1.0-4.0); LYMPHOCYTES % (AUTO) 16 % (12-44); MEAN CORPUSCULAR HEMOGLOBIN 32 PG (25-34); MEAN CORPUSCULAR HGB CONC 32 G/DL (32-36); MEAN CORPUSCULAR VOLUME 101 FL (80-99); MEAN PLATELET VOLUME 8.7 FL (7.4-10.4); MONOCYTES # (AUTO) 1.6 X 10^3 (0.0-1.0); MONOCYTES % (AUTO) 10 % (0-12); NEUTROPHILS # (AUTO) 11.7 X 10^3 (1.8-7.8); NEUTROPHILS % (AUTO) 72 % (42-75); PLATELET COUNT 738 10^3/uL (130-400); WHITE BLOOD COUNT 16.1 10^3/uL (4.3-11.0)
[2020-02-09 06:43] LABS: ALANINE AMINOTRANSFERASE 30 U/L (0-55); ALBUMIN 2.9 GM/DL (3.2-4.5); ALKALINE PHOSPHATASE 105 U/L (40-136); BILIRUBIN,TOTAL 0.1 MG/DL (0.1-1.0); BUN/CREATININE RATIO 42; CALCIUM 8.7 MG/DL (8.5-10.1); CARBON DIOXIDE 24 MMOL/L (21-32); CHLORIDE 103 MMOL/L (98-107); CREATININE SERUM 0.57 MG/DL (0.60-1.30); GFR ESTIMATED > 60; GLUCOSE 95 MG/DL (70-105); POTASSIUM 4.1 MMOL/L (3.6-5.0); SODIUM 138 MMOL/L (135-145); TOTAL PROTEIN 6.5 GM/DL (6.4-8.2)
[2020-02-09 08:25] VITALS: BP 110/68
[2020-02-09] MEDS: guaiFENesin (MUCINEX) 600 MG TAB PO SCH ×2 (08:28→20:45)
[2020-02-09] MEDS: DIGOXIN 0.25 MG (LANOXIN) TAB PO SCH (08:28)
[2020-02-09] MEDS: SENNA W/DOCUSATE (SENOKOT S) TABLET PO SCH ×2 (08:28→20:44)
[2020-02-09] MEDS: risperiDONE 0.25 MG (RisperDAL) TAB PO SCH ×2 (08:28→20:45)
[2020-02-09] MEDS: FOLIC ACID 1 MG TAB PO SCH (08:28)
[2020-02-09] MEDS: PANTOPRAZOLE 40 MG (PROTONIX) TAB PO SCH (08:28)
[2020-02-09] MEDS: DOCUSATE SODIUM 100 MG (COLACE) CAP PO SCH ×2 (08:28→20:44)
[2020-02-09] MEDS: morphine INJ 4 MG/ML 1 ML (VIAL/SYRINGE) IVP PRN ×2 (08:32→12:27)
[2020-02-09] MEDS: polyethylene glycoL POWDER 17 GM (MIRALAX) PACK PO SCH ×2 (08:34→20:44)
--- NOTE | 2020-02-09 09:55 | Occupational Ther Daily Note ---
OT Current Status-Daily Note Subjective Pt laying in bed, required mod encouragement to participate in OT tx. Pt reports "10+/10" pain in his legs, nursing notified. ADL-Treatment Therapy Code Descriptions/Definitions Functional [place] Measure: 0=Not Assessed/NA 4=Minimal Assistance 1=Total Assistance 5=Supervision or Setup 2=Maximal Assistance 6=Modified [place] 3=Moderate Assistance 7=Complete IndependenceSCALE: Activities may be completed with or without assistive devices. 6-Ptupdhvmhq-wauejkp completes the activity by him/herself with no assistance from a helper. 5-Set-up or Clean-up Assistance-helper sets up or cleans up; patient completes activity. [place] assists only prior to or following the activity. 4-Supervision or Touching Assistance-helper provides verbal cues and/or touching/steadying and/or contact guard assistance as patient completes activity. Assistance may be provided throughout the activity or intermittently. 3-Partial/Moderate Assistance-helper does LESS THAN HALF the effort. [place] lifts, holds or supports trunk or limbs, but provides less than half the effort. 2-Substantial/Maximal Assistance-helper does MORE THAN HALF the effort. [place] lifts or holds trunk or limbs and provides more than half the effort. 1-Jtnhsezkb-wvxkrs does ALL the effort. Patient does none of the effort to complete the activity. Or, the assistance of 2 or more helpers is required for the patient to complete the activity. If activity was not attempted, code reason: 7-Patient Refused. 9-Not Applicable-not attempted and the patient did not perform the activity before the current illness, exacerbation or injury. 10-Not Attempted due to Environmental Limitations-(lack of equipment, weather restraints, etc.). 88-Not Attempted due to Medical Conditions or Safety Concerns. Shower/Bathe Self (QC): 4 (sponge bath, CGA during stand. Pt able to wash all parts. He declined washing his feet on this date.) Lower Body Dressing (QC): 4 (CGA during stand at W. Pt able to doff/don brief) increased time required for ADLs due to pain. Other Treatment Pt laying in bed, sat EOB for sponge bath. Pt reports sharp pain in BLEs stating he didn't know how much he could do today. He changed into a clean hospital gown and clean brief. Pt declined washing his feet on this date. Pt reported lightheadedness during stand. Once he sat down BP 106/75, nurse notified. Pt agreed to transferring to recliner with feet elevated. At recliner, pt completed functional activity of removing beads from theraputty. Pt reported yellow theraputty as easy so pt upgraded to red. Post OT session, pt seated in recliner, legs elevated and all needs met. Education OT Patient Education: Correct positioning, Energy conservation, Modified ADL techniques, Progress toward Goal/Update tx plan, Purpose of tx/functional activities, Transfer techniques Teaching Recipient: Patient Teaching Methods: Discussion Response to Teaching: Verbalize Understanding OT Short Term Goals Short Term Goals Time Frame: February 12, 2020 Eatin Oral hygiene: 4 Toileting hygiene: 4 Shower/bathe self: 4 Upper body dressin Lower body dressin Putting on/taking off footwear: 5 OT Group Home Goals Group Home Goals Time Frame: Feb 19, 2020 Eating (QC): 6 Oral Hygiene (QC): 6 Toileting Hygiene (QC): 6 Shower/Bathe Self (QC): 5 Upper Body Dressing (QC): 6 Lower Body Dressing (QC): 6 On/Off Footwear (QC): 6 Additional Goals: 1-Demonstrate ADL Tasks, 2-Verbalize Understanding, 3-ImproveStrength/[place] 1=Demonstrate adherence to instructed precautions during ADL tasks. 2=Patient will verbalize/demonstrate understanding of assistive devices/modifications for ADL. 3=Patient will improve strength/tolerance for activity to enable patient to perform ADL's. OT Education/Plan Problem List/Assessment Assessment: Decreased Activ Tolerance, Decreased UE Strength, Impaired Funct Balance Discharge Recommendations Plan/Recommendations: Continue POC Treatment Plan/Plan of Care Patient would benefit from OT for education, treatment and training to promote independence in ADL's, mobility, safety and/or upper extremity function for ADL's. Plan of Care: ADL Retraining, Functional Mobility, Group Exercise/Act as Ind, UE Funct Exercise/Act Treatment Duration: Feb 19, 2020 Frequency: At least 5 of 7 days/Wk (IRF) Estimated Hrs Per Day: Other (Covid waiver) Agreement: Yes Rehab Potential: Fair Time/GCodes Start Time: 09:00 Stop Time: 10:00 Total Time Billed (hr/min): 60 Billed Treatment Time 1, ADL 3 (45'), FA (15') ASH ANTONY OT February 09, 2020 09:55
--- NOTE | 2020-02-09 10:57 | Physical Therapy Daily Note ---
PT Daily Note-Current Subjective Pt. states he has very little tolerance for Rx secondary to pain in his right leg that starts at his hip and goes full length of his leg. Pt. rates it at 10/10. " I will try to walk right here in my room but I cant get out of this room, too hard" Pain Numeric Pain Scale: 10-Worst Possible Pain Location: Right Location Body Site: Hip (hip to foot) Pain Description: Stabbing Mental Status Patient Orientation: Normal For Age Attachments: Oxygen (4L) Transfers SCALE: Activities may be completed with or without assistive devices. 0-Badwttqkhn-jdsaium completes the activity by him/herself with no assistance from a helper. 5-Set-up or Clean-up Assistance-helper sets up or cleans up; patient completes activity. [place] assists only prior to or following the activity. 4-Supervision or Touching Assistance-helper provides verbal cues and/or touching/steadying and/or contact guard assistance as patient completes activity. Assistance may be provided throughout the activity or intermittently. 3-Partial/Moderate Assistance-helper does LESS THAN HALF the effort. [place] lifts, holds or supports trunk or limbs, but provides less than half the effort. 2-Substantial/Maximal Assistance-helper does MORE THAN HALF the effort. [place] lifts or holds trunk or limbs and provides more than half the effort. 9-Bzeesynuy-hmynev does ALL the effort. Patient does none of the effort to complete the activity. Or, the assistance of 2 or more helpers is required for the patient to complete the activity. If activity was not attempted, code reason: 7-Patient Refused. 9-Not Applicable-not attempted and the patient did not perform the activity before the current illness, exacerbation or injury. 10-Not Attempted due to Environmental Limitations-(lack of equipment, weather restraints, etc.). 88-Not Attempted due to Medical Conditions or Safety Concerns. Sit to Stand (QC): 4 4 sit to stands with CGA to min assist, very taxing for pt. Weight Bearing Right Lower Extremity: Right Weight Bearing/Tolerated Left Lower Extremity: Left Weight Bearing/Tolerated Gait Training Does the Patient Walk?: Yes Walk 10 feet (QC): 4 Walk 50 ft with 2 Turns(QC): 4 Gait Persons Needed: 1 Gait Assistive Device: FWW pt. walked very slowly but demonstrated good management of extended O2 tubing . very fatigued after gait 55 ft 2 turns inside room Exercises Supine Ex: Ankle pumps, Quad Set, Glut sets, Heel Slides Supine Reps: 15 Seated Therapy Exercises: Ankle pumps, Sit to stand, Long arc quads, Hip flexion, Hip abd/add Seated Reps: 15 Assessment Current Status: Fair Progress 1,EX20m,FA25m,GT15m PT Short Term Goals Short Term Goals Time Frame: February 12, 2020 Roll Left & Right: 6 Sit to lyin Lying to sitting on side of be: 6 Sit to stand: 4 Chair/xeh-jd-eiodb transfer: 4 Walk 10 feet: 4 Walk 50 feet with two turns: 4 PT [facility] Goals Upset Operator Goals PT Upset Operator Goals Time Frame: Feb 26, 2020 Roll Left & Right (QC): 6 Sit to Lying (QC): 6 Lying-Sitting on Side/Bed(QC): 6 Sit to Stand (QC): 5 Chair/Hnb-gj-Gnssk Xfer(QC): 5 Toilet Transfer (QC): 5 Car Transfer (QC): 5 Does the Patient Walk: Yes Walk 10 feet (QC): 5 Walk 50ft with 2 Turns (QC): 5 Walk 150 ft (QC): 5 Walking 10ft on Uneven Surface: 5 1 Step (curb) (QC): 4 4 Steps (QC): 4 12 Steps (QC): 88 Picking up an Object (QC): 88 Wheel 50 feet with 2 turns (QC: 6 Wheel 150 feet: 6 PT Plan Treatment/Plan Treatment Plan: Continue Plan of Care Treatment Plan: Education, Functional Activity Lorena, Functional Strength, Gait, Safety, Therapeutic Exercise, Transfers Treatment Duration: Feb 26, 2020 Frequency: tuyet melendez, 60 min per day Estimated Hrs Per Day: 1 hour per day Patient and/or Family Agrees t: Yes Safety Risks/Education Patient Education: Gait Training, Transfer Techniques, Correct Positioning, Disease Process, Safety Issues Teaching Recipient: Patient Teaching Methods: Demonstration, Discussion Response to Teaching: Verbalize Understanding, Return Demonstration, Reinforcement Needed Time/GCodes Time In: 1000 Time Out: 1100 Total Billed Treatment Time: 60 Total Billed Treatment 1,EX20,FA25,GT15 MELINDA MICHAEL HOME CARE SCHEDULER February 09, 2020 10:57
--- NOTE | 2020-02-09 12:52 | PM&R Progress Note ---
Subjective HPI/CC On Admission Date Seen by Provider: February 09, 2020 Time Seen by Provider: 13:00 Subjective/Events-last exam Patient feels better and better each day but right leg and toes are causing increased pain and dry gangrene appears to be worse so will consult Dr Adriana Blancas maintained since 01/13/20 after right leg had acute thrombus from new onset AF Cefepime maintained for PNA treatment and will DC 02/10/20 BM+ No pain reported No falls Nutrition improving and he eats snacks all the time which his brother brings in Participating in therapies and feels stronger O2 maintained but now titrated down to 2L/min Checked meds and labs Reviewed therapy notes Conferred with log operations coordinator of Systems Musculoskeletal: foot pain Objective Exam Vital Signs Vital Signs Date Time Temp Pulse Resp B/P (MAP) Pulse Ox O2 Delivery O2 Flow Rate FiO2 02/09/20 14:45 90 Nasal Cannula 2.00 02/09/20 08:25 111 110/68 (82) 02/09/20 06:04 37.4 20 Capillary Refill : Less Than 3 Seconds General Appearance: No Apparent Distress, WD/WN, Anxious, Chronically ill, Cachetic HEENT: PERRL/EOMI, Normal ENT Inspection, Pharynx Normal Neck: Full Range of Motion, Normal Inspection, Non Tender, Supple, Carotid Bruit Respiratory: Chest Non Tender, Lungs Clear, No Accessory Muscle Use, No Respiratory Distress, Decreased Breath Sounds Cardiovascular: Regular Rate, Rhythm, No Edema, No Gallop, No JVD, No Murmur, Normal Peripheral Pulses Gastrointestinal: Normal Bowel Sounds, No Organomegaly, No Pulsatile Mass, Non Tender, Soft Back: Normal Inspection, No CVA Tenderness, No Vertebral Tenderness Extremity: Normal Capillary Refill, Normal Inspection, Normal Range of Motion, Non Tender, No Calf Tenderness, No Pedal Edema Neurologic/Psychiatric: Alert, Oriented x3, No Motor/Sensory Deficits, Normal Mood/Affect, Motor Weakness (all extremities due to muscle wasting) Skin: Normal Color, Warm/Dry Lymphatic: No Adenopathy Results/Procedures Lab Laboratory Tests 02/09/20 06:07 Patient resulted labs reviewed. FIM Transfers Therapy Code Descriptions/Definitions Functional [place] Measure: 0=Not Assessed/NA 4=Minimal Assistance 1=Total Assistance 5=Supervision or Setup 2=Maximal Assistance 6=Modified [place] 3=Moderate Assistance 7=Complete IndependenceSCALE: Activities may be completed with or without assistive devices. 2-Reackcbcpj-sjqxvit completes the activity by him/herself with no assistance from a helper. 5-Set-up or Clean-up Assistance-helper sets up or cleans up; patient completes activity. [place] assists only prior to or following the activity. 4-Supervision or Touching Assistance-helper provides verbal cues and/or touching/steadying and/or contact guard assistance as patient completes activity. Assistance may be provided throughout the activity or intermittently. 3-Partial/Moderate Assistance-helper does LESS THAN HALF the effort. [place] lifts, holds or supports trunk or limbs, but provides less than half the effort. 2-Substantial/Maximal Assistance-helper does MORE THAN HALF the effort. [place] lifts or holds trunk or limbs and provides more than half the effort. 4-Nfehvxwoy-wurnwz does ALL the effort. Patient does none of the effort to complete the activity. Or, the assistance of 2 or more helpers is required for the patient to complete the activity. If activity was not attempted, code reason: 7-Patient Refused. 9-Not Applicable-not attempted and the patient did not perform the activity before the current illness, exacerbation or injury. 10-Not Attempted due to Environmental Limitations-(lack of equipment, weather restraints, etc.). 88-Not Attempted due to Medical Conditions or Safety Concerns. Roll Left to Right (QC): 6 Sit to Lying (QC): 6 Sit to Stand (QC): 4 Chair/Pgb-tc-Mfaje Xfer(QC): 4 Car Transfer (QC): 4 Gait Training Does the Patient Walk?: Yes Walk 10 feet (QC): 4 Walk 50 ft with 2 Turns(QC): 4 Walk 150 ft (QC): 88 Walking 10ft/uneven surface-QC: 4 Gait Persons Needed: 1 Gait Assistive Device: FWW Wheelchair Training Does the Pt Use a Wheelchair?: Yes Distance: 120'x2 Wheel 50 ft with 2 turns (QC): 4 Wheel 150 ft (QC): 4 Type of Wheelchair: Manual Stair Training 1 Step (curb) (QC): 88 4 Steps (QC): 88 12 Steps (QC): 88 Balance Picking up an Object (QC): 88 ADL-Treatment Eating (QC): 6 Oral Hygiene (QC): 5 Shower/Bathe Self (QC): 4 (sponge bath, CGA during stand. Pt able to wash all parts. He declined washing his feet on this date.) Upper Body Dressing (QC): 5 Lower Body Dressing (QC): 4 (CGA during stand at FWW. Pt able to doff/don brief) On/Off Footwear (QC): 4 Toileting Hygiene (QC): 10 Assessment/Plan Assessment and Plan Assess & Plan/Chief Complaint Assessment: Myopathy PNA facility acquired AECOPD O2 dependent AF CAD PVD Cachexia Lung mass s/p VDRF Right toes dry gangrene consulting Dr Wright Plan: IRF protocol Monitor BP IV Abx Fall risk O2 titration Pain meds (1) Myopathy (2) Acute occlusion of artery of lower extremity due to thromboembolism Status: Acute (3) Acute respiratory failure with hypoxia Status: Acute (4) Atrial fibrillation with rapid ventricular response Status: Acute (5) Severe protein-calorie malnutrition Status: Acute (6) Pneumonia Status: Acute (7) Debility Status: Acute (8) Iron deficiency anemia Status: Chronic (9) Lung mass Status: Acute (10) Tobacco abuse Status: Chronic (11) Folic acid deficiency Status: Chronic (12) Anemia of chronic disease Status: Chronic (13) COPD (chronic obstructive pulmonary disease) Status: Chronic LOI CORTEZ DO February 09, 2020 12:52
--- NOTE | 2020-02-09 14:17 | Cardiology Progress Note ---
Cardiology SOAP Progress Note Subjective: Complaining of right foot discomfort since this morning. Objective: I&O/Vital Signs 02/09/20 02/09/20 02/09/20 02/09/20 02:29 06:04 06:50 08:00 Temp 37.4 Pulse 103 Resp 20 B/P (MAP) 115/71 (86) Pulse Ox 92 93 90 O2 Delivery Nasal Cannula Nasal Cannula Nasal Cannula Nasal Cannula O2 Flow Rate 2.00 2.00 2.00 2.00 02/09/20 02/09/20 08:25 10:13 Pulse 111 B/P (MAP) 110/68 (82) Pulse Ox 93 O2 Delivery Nasal Cannula O2 Flow Rate 2.00 02/09/20 00:00 Intake Total 1640 ml Output Total 1675 ml Balance -35 ml Constitutional: AAO x 3 Respiratory: chest is bilaterally symmetric, wheezing Cardiovascular: regular rate-rhythm, S1 and S2 Gastrointestional: soft, audible bowel sounds Extremities: normal range of motion, non-tender, normal inspection, no lower extremity edema bilateral Neurologic/Psychiatric: no motor/sensory deficits, alert, normal mood/affect, oriented x 3 Skin: normal color, warm/dry (bilaterally.) Results/Procedures: Labs Laboratory Tests 02/09/20 06:07: White Blood Count 16.1H, Red Blood Count 2.83L, Hemoglobin 9.0L, Hematocrit 29L, Mean Corpuscular Volume 101H, Mean Corpuscular Hemoglobin 32, Mean Corpuscular Hemoglobin Concent 32, Red Cell Distribution Width 18.0H, Platelet Count 738H, Mean Platelet Volume 8.7, Neutrophils (%) (Auto) 72, Lymphocytes (%) (Auto) 16, Monocytes (%) (Auto) 10, Eosinophils (%) (Auto) 1, Basophils (%) (Auto) 1, Neutrophils # (Auto) 11.7H, Lymphocytes # (Auto) 2.6, Monocytes # (Auto) 1.6H, Eosinophils # (Auto) 0.2, Basophils # (Auto) 0.1, Sodium Level 138, Potassium Level 4.1, Chloride Level 103, Carbon Dioxide Level 24, Anion Gap 11, Blood Urea Nitrogen 24H, Creatinine 0.57L, Estimat Glomerular Filtration Rate > 60, BUN/Creatinine Ratio 42, Glucose Level 95, Calcium Level 8.7, Corrected Calcium 9.6, Total Bilirubin 0.1, Aspartate Amino Transf (AST/SGOT) 21, Alanine Aminotransferase (ALT/SGPT) 30, Alkaline Phosphatase 105, Total Protein 6.5, Albumin 2.9L A/P: Assessment/Dx: Shortness of breath Cough Chest pain Acute limb ischemia, Right foot discomfort since morning Plan: Status post acute limb ischemia due to embolization probably from atrial fibrillation. Angiogram was carried out showing total occlusion with thrombus in the distal SFA, received thrombolytics and reestablished flow, doing better. Maintained on Xarelto at this time. Continue to monitor. He complains of right foot discomfort since this morning. I examined the foot, it is not cold. It is equally warm as the left lower extremity. He was shaking therefore I could not accurately feel the distal pulses. He continues to be on Xarelto. In view of the above it is unlikely that this is acute limb ischemia but because of his recent history I have recommended to the RNs to doppler the pulses. Dr Sinha has already consulted Dr Wright (general surgery). The patient may require either an urgent lower extremity ultrasound or CT angiography however I will defer to Dr. Wright. If Dr. Wright thinks that the risk of acute limb ischemia is there, the patient may need to be transferred for vascular surgery evaluation. Shortness of breath, cough productive of yellowish sputum, probably nosocomial pneumonia, receiving cefepime, managed by primary care physician Chest pain, nonspecific etiology, cardiac catheterization carried out on January 30, 2020 showing mild to moderate coronary artery disease nonobstructive disease. Chest pain is unlikely to be cardiac, Anemia, managed by primary care team, H&H is monitored, EGD done with Dr. Wright reported gastritis and hiatal hernia. Managed by primary care team PAF with RVR on 01/24/20, tachycardic again, currently off telemetry 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 Has been on disability Tobaccoism, stopped smoking in December 2019, advised to continue to refrain Anemia of undetermined etiology, managed by the Med Service Thank you for your consultation. Please call me if you have any questions. Winston Domingo MD, FACP, FACC, FSCAI, FHRS, CCDS Interventional Cardiology Cardiac Electrophysiology Vascular Medicine and Endovascular Interventions Steven DOMINGO MD February 09, 2020 14:17
--- NOTE | 2020-02-09 15:03 | Progress Note - Surgery ---
Subjective Time Seen by a Provider: 14:32 Subjective/Events-last exam Pt seen and examined. His main complaint is his right foot is really starting to hurt him; "feels like it got run over by a truck". He is also concerned because that foot/leg have uncontrolled shaking and jerking, not constant. He is unsure how long his toes have looked like they do. Review of Systems General: Fatigue, Malaise Pulmonary: Dyspnea; No Cough Cardiovascular: No: Chest Pain, Palpitations Gastrointestinal: No: Nausea, Vomiting Objective Exam Vital Signs Date Time Temp Pulse Resp B/P (MAP) Pulse Ox O2 Delivery O2 Flow Rate FiO2 02/09/20 14:45 90 Nasal Cannula 2.00 02/09/20 10:13 93 Nasal Cannula 2.00 02/09/20 08:25 111 110/68 (82) 02/09/20 08:00 Nasal Cannula 2.00 02/09/20 06:50 90 Nasal Cannula 2.00 02/09/20 06:04 37.4 103 20 115/71 (86) 93 Nasal Cannula 2.00 02/09/20 02:29 92 Nasal Cannula 2.00 02/08/20 22:04 94 Nasal Cannula 2.00 02/08/20 20:15 Nasal Cannula 2.00 02/08/20 18:03 92 Nasal Cannula 2.00 02/08/20 18:00 37.4 104 20 121/77 (92) 96 Nasal Cannula 2.00 02/08/20 15:03 92 Nasal Cannula 2.00 I & O 02/09/20 07:00 Intake Total 2520 ml Output Total 2375 ml Balance 145 ml Capillary Refill : Less Than 3 Seconds General Appearance: No Apparent Distress, Anxious, Chronically ill, Cachetic HEENT: PERRL/EOMI, Moist Mucous Membranes Respiratory: Chest Non Tender, Lungs Clear, No Accessory Muscle Use, No Respiratory Distress, Decreased Breath Sounds Cardiovascular: No Murmur, Tachycardia Peripheral Pulses: 2+ Femoral (R), 2+ Femoral (L); 1+ Dorsalis Pedis (R); 3+ Radial Pulses (R), 3+ Radial Pulses (L) Gastrointestinal: non tender, soft Extremity: No Calf Tenderness, No Pedal Edema, Other (right foot has dry gangrene across all 5 toes, 1st and 2nd toe are the worst. Toes 3-5 just have some spots on plantar aspect of necrotic tissue) Neurologic/Psychiatric: Alert, Oriented x3, Motor Weakness (all extremities due to muscle wasting) Results Lab Laboratory Tests 02/09/20 06:07: White Blood Count 16.1H, Red Blood Count 2.83L, Hemoglobin 9.0L, Hematocrit 29L, Mean Corpuscular Volume 101H, Mean Corpuscular Hemoglobin 32, Mean Corpuscular Hemoglobin Concent 32, Red Cell Distribution Width 18.0H, Platelet Count 738H, Mean Platelet Volume 8.7, Neutrophils (%) (Auto) 72, Lymphocytes (%) (Auto) 16, Monocytes (%) (Auto) 10, Eosinophils (%) (Auto) 1, Basophils (%) (Auto) 1, Neutrophils # (Auto) 11.7H, Lymphocytes # (Auto) 2.6, Monocytes # (Auto) 1.6H, Eosinophils # (Auto) 0.2, Basophils # (Auto) 0.1, Sodium Level 138, Potassium Level 4.1, Chloride Level 103, Carbon Dioxide Level 24, Anion Gap 11, Blood Urea Nitrogen 24H, Creatinine 0.57L, Estimat Glomerular Filtration Rate > 60, BUN/Creatinine Ratio 42, Glucose Level 95, Calcium Level 8.7, Corrected Calcium 9.6, Total Bilirubin 0.1, Aspartate Amino Transf (AST/SGOT) 21, Alanine Aminotransferase (ALT/SGPT) 30, Alkaline Phosphatase 105, Total Protein 6.5, Albumin 2.9L Assessment/Plan Assessment/Plan Assessment/Plan Chronic Right Lower extremity Ischemia Chronic Respiratory Failure - improved Hx of Afib - tachy but regular today Pt has gangrene of all the toes on his right foot; however, he does have doppler pulse and foot is warm and dry without any erythema or mottling. At this point we need to wait and let the toes demarcate, before deciding what intervention will be needed. Unfortunately, nothing vascular will fix this....portions of the toes are necrotic and cannot heal. Once they have finally demarcated we may be able to just remove 1-2 toes, but there is the possibility of metatarsal amputation or even BKA. I went over all this and explained to the patient and he understood. At this time we will try to keep his pain controlled and monitor his foot. All questions answered to his satisfaction. Clinical Quality Measures DVT/VTE Risk/Contraindication: Risk Factor Score Per Nursin RFS Level Per Nursing on Admit: 4+=Very High CANDI MIJARES DO February 09, 2020 15:03
[2020-02-09 16:00] VITALS: BP 104/68
[2020-02-09] MEDS: RIVAROXABAN 20 MG TABLET (XARELTO) PO SCH (17:21)
[2020-02-10] MEDS: RT-ALBUTEROL/IPRATROPIUM 3 ML (DUONEB) VIAL INH SCH ×6 (01:57→22:35)
[2020-02-10 04:55] LABS: BASOPHILS # (AUTO) 0.1 10^3/uL (0.0-0.1); BASOPHILS % (AUTO) 1 % (0-10); EOSINOPHILS # (AUTO) 0.1 10^3/uL (0.0-0.3); EOSINOPHILS % (AUTO) 1 % (0-10); HEMATOCRIT 28 % (40-54); HEMOGLOBIN 8.7 G/DL (13.3-17.7); LYMPHOCYTES # (AUTO) 2.7 X 10^3 (1.0-4.0); LYMPHOCYTES % (AUTO) 16 % (12-44); MEAN CORPUSCULAR HEMOGLOBIN 31 PG (25-34); MEAN CORPUSCULAR HGB CONC 31 G/DL (32-36); MEAN CORPUSCULAR VOLUME 101 FL (80-99); MEAN PLATELET VOLUME 8.7 FL (7.4-10.4); MONOCYTES # (AUTO) 1.6 X 10^3 (0.0-1.0); MONOCYTES % (AUTO) 9 % (0-12); NEUTROPHILS # (AUTO) 12.6 X 10^3 (1.8-7.8); NEUTROPHILS % (AUTO) 74 % (42-75); PLATELET COUNT 702 10^3/uL (130-400); RED CELL DISTRIBUTION WIDTH 17.9 % (10.0-14.5); WHITE BLOOD COUNT 17.2 10^3/uL (4.3-11.0)
[2020-02-10 05:08] LABS: ALBUMIN 2.8 GM/DL (3.2-4.5); CHLORIDE 102 MMOL/L (98-107); POTASSIUM 4.5 MMOL/L (3.6-5.0); SODIUM 138 MMOL/L (135-145)
[2020-02-10 05:09] LABS: CALCIUM 8.6 MG/DL (8.5-10.1)
[2020-02-10 05:10] LABS: GLUCOSE 101 MG/DL (70-105)
[2020-02-10 05:11] LABS: TOTAL PROTEIN 6.3 GM/DL (6.4-8.2)
[2020-02-10 05:12] LABS: BILIRUBIN,TOTAL < 0.1 MG/DL (0.1-1.0); CARBON DIOXIDE 28 MMOL/L (21-32)
[2020-02-10 05:14] LABS: ALKALINE PHOSPHATASE 88 U/L (40-136); CREATININE SERUM 0.52 MG/DL (0.60-1.30); GFR ESTIMATED > 60
[2020-02-10 05:15] LABS: BUN/CREATININE RATIO 42
[2020-02-10 05:17] LABS: ALANINE AMINOTRANSFERASE 29 U/L (0-55)
[2020-02-10 05:27] VITALS: BP 104/66
[2020-02-10] MEDS: predniSONE 20 MG TAB PO SCH (06:18)
[2020-02-10] MEDS: FERROUS SULF 325 MG (IRON) TAB PO SCH ×2 (06:18→17:00)
[2020-02-10] MEDS: MULTIVIT W/MINERALS TAB (THERAGRAN M) PO SCH (06:18)
[2020-02-10] MEDS: CATHETER FLUSH 10 ML SYR IV SCH ×3 (06:19→21:35)
[2020-02-10] MEDS: CEFEPIME INJECTION 1,000 MG in WATER (STERILE) FOR INJECTION 10 ML IV SCH ×2 (06:19→12:07)
--- NOTE | 2020-02-10 07:16 | PM&R Progress Note ---
Subjective HPI/CC On Admission Date Seen by Provider: February 10, 2020 Time Seen by Provider: 10:30 Subjective/Events-last exam WBC of 17,000 likely due to the gangrene of his toes Dr. Wright will fully evaluate that because he may very well need a couple of toes amputated Maintain on Xarelto technician terminal and repeater Had a BM yesterday Last dose of Cefepime today Overall doing much better He does not report his toes are hurting at all No falls Nutrition improving and he eats snacks all the time which his brother brings in Participating in therapies and feels stronger O2 maintained but now titrated down to 2L/min Checked meds and labs Reviewed therapy notes Conferred with burial needs salesperson of Systems Musculoskeletal: foot pain Objective Exam Vital Signs Vital Signs Date Time Temp Pulse Resp B/P (MAP) Pulse Ox O2 Delivery O2 Flow Rate FiO2 02/11/20 02:21 92 Room Air 02/10/20 22:35 2.00 02/10/20 16:39 36.6 102 16 110/74 (86) Capillary Refill : Less Than 3 Seconds General Appearance: No Apparent Distress, WD/WN, Anxious, Chronically ill, Cachetic HEENT: PERRL/EOMI, Normal ENT Inspection, Pharynx Normal Neck: Full Range of Motion, Normal Inspection, Non Tender, Supple, Carotid Bruit Respiratory: Chest Non Tender, Lungs Clear, No Accessory Muscle Use, No Respiratory Distress, Decreased Breath Sounds Cardiovascular: Regular Rate, Rhythm, No Edema, No Gallop, No JVD, No Murmur, Normal Peripheral Pulses Gastrointestinal: Normal Bowel Sounds, No Organomegaly, No Pulsatile Mass, Non Tender, Soft Back: Normal Inspection, No CVA Tenderness, No Vertebral Tenderness Extremity: Normal Capillary Refill, Normal Inspection, Normal Range of Motion, Non Tender, No Calf Tenderness, No Pedal Edema Neurologic/Psychiatric: Alert, Oriented x3, No Motor/Sensory Deficits, Normal Mood/Affect, Motor Weakness (all extremities due to muscle wasting) Skin: Normal Color, Warm/Dry Lymphatic: No Adenopathy Results/Procedures Lab Patient resulted labs reviewed. FIM Transfers Therapy Code Descriptions/Definitions Functional [place] Measure: 0=Not Assessed/NA 4=Minimal Assistance 1=Total Assistance 5=Supervision or Setup 2=Maximal Assistance 6=Modified [place] 3=Moderate Assistance 7=Complete IndependenceSCALE: Activities may be completed with or without assistive devices. 2-Iwfkocusbh-yfibfvk completes the activity by him/herself with no assistance from a helper. 5-Set-up or Clean-up Assistance-helper sets up or cleans up; patient completes activity. [place] assists only prior to or following the activity. 4-Supervision or Touching Assistance-helper provides verbal cues and/or touching/steadying and/or contact guard assistance as patient completes activity. Assistance may be provided throughout the activity or intermittently. 3-Partial/Moderate Assistance-helper does LESS THAN HALF the effort. [place] lifts, holds or supports trunk or limbs, but provides less than half the effort. 2-Substantial/Maximal Assistance-helper does MORE THAN HALF the effort. [place] lifts or holds trunk or limbs and provides more than half the effort. 8-Wvdcdhkyz-iwvdym does ALL the effort. Patient does none of the effort to complete the activity. Or, the assistance of 2 or more helpers is required for the patient to complete the activity. If activity was not attempted, code reason: 7-Patient Refused. 9-Not Applicable-not attempted and the patient did not perform the activity before the current illness, exacerbation or injury. 10-Not Attempted due to Environmental Limitations-(lack of equipment, weather restraints, etc.). 88-Not Attempted due to Medical Conditions or Safety Concerns. Roll Left to Right (QC): 6 Sit to Lying (QC): 6 Sit to Stand (QC): 4 Chair/Dqt-dy-Jrknd Xfer(QC): 4 Car Transfer (QC): 4 Gait Training Does the Patient Walk?: Yes Walk 10 feet (QC): 4 Walk 50 ft with 2 Turns(QC): 4 Walk 150 ft (QC): 88 Walking 10ft/uneven surface-QC: 4 Gait Persons Needed: 1 Gait Assistive Device: FWW Wheelchair Training Does the Pt Use a Wheelchair?: Yes Distance: 120'x2 Wheel 50 ft with 2 turns (QC): 4 Wheel 150 ft (QC): 4 Type of Wheelchair: Manual Stair Training 1 Step (curb) (QC): 88 4 Steps (QC): 88 12 Steps (QC): 88 Balance Picking up an Object (QC): 88 ADL-Treatment Eating (QC): 6 Oral Hygiene (QC): 5 Shower/Bathe Self (QC): 4 (sponge bath, CGA during stand. Pt able to wash all p arts. He declined washing his feet on this date.) Upper Body Dressing (QC): 5 Lower Body Dressing (QC): 4 (CGA during stand at FWW. Pt able to doff/don brief) On/Off Footwear (QC): 4 Toileting Hygiene (QC): 10 Assessment/Plan Assessment and Plan Assess & Plan/Chief Complaint Assessment: Myopathy PNA facility acquired AECOPD O2 dependent AF CAD PVD Cachexia Lung mass s/p VDRF Right toes dry gangrene consulting Dr Wright Plan: IRF protocol Monitor BP IV Abx Fall risk O2 titration Pain meds (1) Myopathy (2) Acute occlusion of artery of lower extremity due to thromboembolism Status: Acute (3) Acute respiratory failure with hypoxia Status: Acute (4) Atrial fibrillation with rapid ventricular response Status: Acute (5) Severe protein-calorie malnutrition Status: Acute (6) Pneumonia Status: Acute (7) Debility Status: Acute (8) Iron deficiency anemia Status: Chronic (9) Lung mass Status: Acute (10) Tobacco abuse Status: Chronic (11) Folic acid deficiency Status: Chronic (12) Anemia of chronic disease Status: Chronic (13) COPD (chronic obstructive pulmonary disease) Status: Chronic LOI CORTEZ DO February 10, 2020 07:16
[2020-02-10] MEDS: guaiFENesin (MUCINEX) 600 MG TAB PO SCH ×2 (07:59→21:34)
[2020-02-10] MEDS: risperiDONE 0.25 MG (RisperDAL) TAB PO SCH ×2 (07:59→21:34)
[2020-02-10] MEDS: PANTOPRAZOLE 40 MG (PROTONIX) TAB PO SCH (07:59)
[2020-02-10] MEDS: DIGOXIN 0.25 MG (LANOXIN) TAB PO SCH (08:00)
[2020-02-10] MEDS: FOLIC ACID 1 MG TAB PO SCH (08:00)
[2020-02-10] MEDS: DOCUSATE SODIUM 100 MG (COLACE) CAP PO SCH ×2 (08:00→21:35)
[2020-02-10] MEDS: polyethylene glycoL POWDER 17 GM (MIRALAX) PACK PO SCH ×2 (08:01→21:35)
[2020-02-10] MEDS: SENNA W/DOCUSATE (SENOKOT S) TABLET PO SCH ×2 (08:01→21:35)
[2020-02-10 08:02] VITALS: BP 110/67
--- NOTE | 2020-02-10 08:33 | Cardiology Progress Note ---
Subjective Date Seen by Provider: February 10, 2020 Time Seen by Provider: 08:32 Subjective/Events-last exam Patient sitting up in chair, denies any chest pain, f/c/ns. Review of Systems General: No Chills, No Night Sweats, No Fatigue, No Malaise, No Appetite, No Other HEENT: No Head Aches, No Visual Changes, No Eye Pain, No Ear Pain, No Dysphasia, No Sinus Congestion, No Post Nasal Drip, No Sore Throat, No Other Pulmonary: No Dyspnea, No Cough, No Pleuritic Chest Pain, No Other Cardiovascular: No: Chest Pain, Palpitations, Orthopnea, Paroxysmal Noc. Dyspnea, Edema, Lt Headedness, Other Objective-Cardiology Exam Last Set of Vital Signs Vital Signs 02/10/20 02/10/20 05:27 08:02 Temp 37.2 Pulse 111 Resp 18 B/P (MAP) 110/67 (81) Pulse Ox 95 O2 Delivery Nasal Cannula O2 Flow Rate 1.50 Capillary Refill : Less Than 3 Seconds I&O Intake and Output 02/10/20 00:00 Intake Total 1860 ml Output Total 1400 ml Balance 460 ml Intake Oral 1860 ml Output Urine Total 1400 ml General: Alert, Oriented X3, Cooperative HEENT: Atraumatic, PERRLA Neck: Supple, No JVD, No Thyromegaly Lungs: Clear to Auscultation, Normal Air Movement Heart: Regular Rate, Normal S1, Normal S2, No Murmurs Abdomen: Normal Bowel Sounds, Soft, No Tenderness, No Hepatosplenomegaly, No Masses Extremities: No Clubbing, No Cyanosis, No Edema, Normal Pulses, No Tenderness/Swelling Skin: No Rashes, No Breakdown, No Significant Lesion Neuro: Normal Gait, Normal Speech, Strength at 5/5 X4 Ext, Normal Tone, Sensation Intact Psych/Mental Status: Mental Status NL, Mood NL Results Lab Laboratory Tests 02/10/20 04:45 A/P-Cardiology Admission Diagnosis Shortness of breath Cough Chest pain Acute limb ischemia Assessment/Plan Shortness of breath, cough productive of yellowish sputum, patient reports some improvement today, probably nosocomial pneumonia, receiving cefepime, managed by primary care physician Chest pain, nonspecific etiology, cardiac catheterization carried out on January 30, 2020 showing mild to moderate coronary artery disease nonobstructive disease. Chest pain is unlikely to be cardiac, Anemia, managed by primary care team, H&H is monitored, EGD done with Dr. Wright reported gastritis and hiatal hernia. Managed by primary care team Status post acute limb ischemia due to embolization probably from atrial fibrillation. Angiogram was carried out showing total occlusion with thrombus in the distal SFA, received thrombolytics and reestablished flow. Maintained on Xarelto at this time. Continue to monitor PAF with RVR on 01/24/20, continue to monitor. 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 Has been on disability Tobaccoism, stopped smoking in December 2019, advised to continue to refrain Patient was seen and evaluated with Stacie, examination performed, management plan was discussed, agree with the current scribed note, I made few changes to the note using Italic font Patient reporting improvement today, he was complaining of pain in his right leg. It appear that his toes progressed from cyanosis to gangrene in the past few days. He had dorsalis pedis pulse by Doppler. Still having dyspnea on exertion and cough productive of yellowish sputum Continue with oral anticoagulation at this time and continue to monitor. Clinical Quality Measures DVT/VTE Risk/Contraindication: Risk Factor Score Per Nursin RFS Level Per Nursing on Admit: 4+=Very High STACIE PATEL February 10, 2020 8:33 am THERESA BELLAMY MD February 10, 2020 8:44 am
--- NOTE | 2020-02-10 10:34 | Physical Therapy Daily Note ---
PT Daily Note-Current Subjective Pt. agrees to therapy, pain rated 8/10 in the R foot. Pt. receives pain medicine during session. Mental Status Patient Orientation: Person, Place, Time, Situation Attachments: Oxygen 1.5L O2 Transfers SCALE: Activities may be completed with or without assistive devices. 0-Xvxpgrepml-suzvejq completes the activity by him/herself with no assistance from a helper. 5-Set-up or Clean-up Assistance-helper sets up or cleans up; patient completes activity. [place] assists only prior to or following the activity. 4-Supervision or Touching Assistance-helper provides verbal cues and/or touching/steadying and/or contact guard assistance as patient completes activity. Assistance may be provided throughout the activity or intermittently. 3-Partial/Moderate Assistance-helper does LESS THAN HALF the effort. [place] lifts, holds or supports trunk or limbs, but provides less than half the effort. 2-Substantial/Maximal Assistance-helper does MORE THAN HALF the effort. [place] lifts or holds trunk or limbs and provides more than half the effort. 6-Qgjspfwxs-yulxug does ALL the effort. Patient does none of the effort to complete the activity. Or, the assistance of 2 or more helpers is required for the patient to complete the activity. If activity was not attempted, code reason: 7-Patient Refused. 9-Not Applicable-not attempted and the patient did not perform the activity before the current illness, exacerbation or injury. 10-Not Attempted due to Environmental Limitations-(lack of equipment, weather restraints, etc.). 88-Not Attempted due to Medical Conditions or Safety Concerns. Sit to Stand (QC): 4 Weight Bearing Right Lower Extremity: Right Weight Bearing/Tolerated Left Lower Extremity: Left Weight Bearing/Tolerated Gait Training Does the Patient Walk?: Yes Distance: x 100 ft, 2 x 75 ft Walk 10 feet (QC): 4 Walk 50 ft with 2 Turns(QC): 4 Gait Persons Needed: 1 Gait Assistive Device: FWW leans on walker and has kyphotic posture. frequent rest breaks needed. Exercises Seated Therapy Exercises: Ankle pumps, Long arc quads, Hip flexion, Hip abd/add, Glut set Seated Reps: 20 NuStep Minutes: 10 NuStep Workload: 3 Treatments gait training, endurance activities, LE strengthening and ROM Assessment Current Status: Good Progress Pt. continues to need frequent rest breaks during session due to SOB and R foot pain, however he is significantly improving strength and functional mobility. Pt. returned to bedside chair post session, alarm set, call light in reach and all needs met. PT Short Term Goals Short Term Goals Time Frame: February 12, 2020 Roll Left & Right: 6 Sit to lyin Lying to sitting on side of be: 6 Sit to stand: 4 Chair/qok-zu-abqri transfer: 4 Walk 10 feet: 4 Walk 50 feet with two turns: 4 PT Allergy And Immunology Specialist Goals Allergy And Immunology Specialist Goals PT Allergy And Immunology Specialist Goals Time Frame: Feb 26, 2020 Roll Left & Right (QC): 6 Sit to Lying (QC): 6 Lying-Sitting on Side/Bed(QC): 6 Sit to Stand (QC): 5 Chair/Ldm-rg-Kzgpf Xfer(QC): 5 Toilet Transfer (QC): 5 Car Transfer (QC): 5 Does the Patient Walk: Yes Walk 10 feet (QC): 5 Walk 50ft with 2 Turns (QC): 5 Walk 150 ft (QC): 5 Walking 10ft on Uneven Surface: 5 1 Step (curb) (QC): 4 4 Steps (QC): 4 12 Steps (QC): 88 Picking up an Object (QC): 88 Wheel 50 feet with 2 turns (QC: 6 Wheel 150 feet: 6 PT Plan Treatment/Plan Treatment Plan: Continue Plan of Care Treatment Plan: Education, Functional Activity Lorena, Functional Strength, Gait, Safety, Therapeutic Exercise, Transfers Treatment Duration: Feb 26, 2020 Frequency: tuyet melendez, 60 min per day Estimated Hrs Per Day: 1 hour per day Patient and/or Family Agrees t: Yes Time/GCodes Time In: 944 Time Out: 1045 Total Billed Treatment Time: 60 Total Billed Treatment 1, GT 20', Ex 30', FA 10' IBAN HAIDER PT February 10, 2020 10:34
--- NOTE | 2020-02-10 11:01 | Occupational Ther Daily Note ---
OT Current Status-Daily Note Subjective [id number]: Pt seen in recliner this am. Pt states "tingling/ lake feeling" in RLE, pt states decreased strength during activities in RUE. Pt agrees to ADLs. [id number]: Pt seen in recliner post-lunch, agrees to OT. States min pain in foot (RLE). Mental Status/Objective Attachments: Oxygen (1.5 L) ADL-Treatment Therapy Code Descriptions/Definitions Functional Ajo Measure: 0=Not Assessed/NA 4=Minimal Assistance 1=Total Assistance 5=Supervision or Setup 2=Maximal Assistance 6=Modified Ajo 3=Moderate Assistance 7=Complete IndependenceSCALE: Activities may be completed with or without assistive devices. 5-Zlsgzbgxwt-amkqgtx completes the activity by him/herself with no assistance from a helper. 5-Set-up or Clean-up Assistance-helper sets up or cleans up; patient completes activity. [place] assists only prior to or following the activity. 4-Supervision or Touching Assistance-helper provides verbal cues and/or touching/steadying and/or contact guard assistance as patient completes activity. Assistance may be provided throughout the activity or intermittently. 3-Partial/Moderate Assistance-helper does LESS THAN HALF the effort. [place] lifts, holds or supports trunk or limbs, but provides less than half the effort. 2-Substantial/Maximal Assistance-helper does MORE THAN HALF the effort. [place] lifts or holds trunk or limbs and provides more than half the effort. 5-Libvimruf-djtmbm does ALL the effort. Patient does none of the effort to complete the activity. Or, the assistance of 2 or more helpers is required for the patient to complete the activity. If activity was not attempted, code reason: 7-Patient Refused. 9-Not Applicable-not attempted and the patient did not perform the activity before the current illness, exacerbation or injury. 10-Not Attempted due to Environmental Limitations-(lack of equipment, weather restraints, etc.). 88-Not Attempted due to Medical Conditions or Safety Concerns. Eating (QC): 6 Shower/Bathe Self (QC): 4 (Completes sponge bath with SBA during tasks. CGA with sit to stands from recliner chair. ) Upper Body Dressing (QC): 5 Lower Body Dressing (QC): 4 (CGA sit to stand and SBA pulling over hips. Pt utilizes BUE without support of walker.) On/Off Footwear: 7 (declines washing feet/ changing socks.) Other Treatment Pt completes ADLs in recliner as above. Pt requires multiple rest breaks post- standing/ LE activity to recover energy/ breath. Pt educated on AE (floor installer) for LB dressing to conserve energy and completing tasks during high energy periods/ taking rest breaks throughout. Pt agrees, pt requires min cues for rest breaks as he states fatigue. Pt completes sponge bath in chair, completes all areas excluding feet. Pt left in recliner with all needs met, call light in reach. Pt seen post lunch, agreeable to OT tx session. Pt declines toileting needs, agrees to ther ex in therapy gym. Pt sit to stand and pivots to w/c with CGA. Pt utilizes w/c and pushes self to gym, cues for directionality. Pt completes 10 min arm bike ex on min resistance to increase endurance/ strength/ and monitoring of breath and energy. Pt requires rest breaks every 1.5-2 minutes due to fatigue and SOB. Pt educated on increasing endurance to tolerate full 90 min of therapy, pt states he is unsure if he can do so. Pt encouraged to work throughout but take breaks to conserve energy, 02 monitored with 97% end of arm bike ex. Pt's education director/ pinch strength assessed bilaterally with avgs of: education director R: 30, education director L 35; pinch R: 10, pinch L: 12. Pt educated on findings as pt's L education director/ pinch decreases with each trial- pt to continue education director/ pinch exercises to increase strength and endurance of hand for daily tasks. Pt left in gym with PT end of session. Education OT Patient Education: Correct positioning, Energy conservation, Exercise program, Purpose of tx/functional activities, Transfer techniques Teaching Recipient: Patient Teaching Methods: Demonstration, Discussion Response to Teaching: Verbalize Understanding, Return Demonstration OT Short Term Goals Short Term Goals Time Frame: February 12, 2020 Eatin Oral hygiene: 4 Toileting hygiene: 4 Shower/bathe self: 4 Upper body dressin Lower body dressin Putting on/taking off footwear: 5 OT Long-Term Goals Long-Term Goals Time Frame: Feb 19, 2020 Eating (QC): 6 Oral Hygiene (QC): 6 Toileting Hygiene (QC): 6 Shower/Bathe Self (QC): 5 Upper Body Dressing (QC): 6 Lower Body Dressing (QC): 6 On/Off Footwear (QC): 6 Additional Goals: 1-Demonstrate ADL Tasks, 2-Verbalize Understanding, 3- ImproveStrength/Lorena 1=Demonstrate adherence to instructed precautions during ADL tasks. 2=Patient will verbalize/demonstrate understanding of assistive devices/modifications for ADL. 3=Patient will improve strength/tolerance for activity to enable patient to perform ADL's. OT Education/Plan Problem List/Assessment Assessment: Decreased Activ Tolerance, Decreased UE Strength, Dependent Transfers, Impaired Funct Balance, Impaired I ADL's, Impaired Self-Care Skills Discharge Recommendations Plan/Recommendations: Continue POC Therapy Discharge Recommendati: Home & Family Treatment Plan/Plan of Care Treatment,Training & Education: Yes Patient would benefit from OT for education, treatment and training to promote independence in ADL's, mobility, safety and/or upper extremity function for ADL's. Plan of Care: ADL Retraining, Functional Mobility, Group Exercise/Act as Ind, UE Funct Exercise/Act Treatment Duration: Feb 19, 2020 Frequency: At least 5 of 7 days/Wk (IRF) Estimated Hrs Per Day: Other (Covid waiver) Agreement: Yes Rehab Potential: Fair Time/GCodes Start Time: 07:55 Stop Time: 13:30 Total Time Billed (hr/min): 90 (45+45) Billed Treatment Time [id number]: 1, ADL 3 (45) [id number]: 1, EX 3 (45) Total: 90 RANDA BARROSO OTR February 10, 2020 11:00
--- NOTE | 2020-02-10 12:52 | Progress Note - Surgery ---
Subjective Time Seen by a Provider: 12:38 Subjective/Events-last exam Pt seen and examined, states pain seems a little better today and that when he does physical therapy that seems to help also. Review of Systems General: Fatigue Pulmonary: No Cough, No Pleuritic Chest Pain Cardiovascular: No: Chest Pain, Palpitations Gastrointestinal: No: Nausea, Vomiting Objective Exam Vital Signs Date Time Temp Pulse Resp B/P (MAP) Pulse Ox O2 Delivery O2 Flow Rate FiO2 02/10/20 09:32 Nasal Cannula 1.50 02/10/20 08:02 111 18 110/67 (81) 95 Nasal Cannula 1.50 02/10/20 06:40 91 Nasal Cannula 2.00 02/10/20 05:27 37.2 96 18 104/66 (79) 92 Nasal Cannula 2.00 02/10/20 01:57 92 Nasal Cannula 2.00 02/09/20 21:28 Nasal Cannula 1.00 02/09/20 21:12 91 Nasal Cannula 2.00 02/09/20 19:00 Nasal Cannula 1.00 02/09/20 16:00 37.2 103 16 104/68 (80) 94 Nasal Cannula 2.00 02/09/20 14:45 90 Nasal Cannula 2.00 I & O 02/10/20 07:00 Intake Total 1230 ml Output Total 1775 ml Balance -545 ml Capillary Refill : Less Than 3 Seconds General Appearance: No Apparent Distress, Cachetic HEENT: PERRL/EOMI, Moist Mucous Membranes Respiratory: Lungs Clear, No Accessory Muscle Use, No Respiratory Distress, Decreased Breath Sounds Cardiovascular: Regular Rate, Rhythm, No Gallop, No Murmur Peripheral Pulses: 2+ Femoral (R), 2+ Femoral (L); 1+ Dorsalis Pedis (R); 3+ Radial Pulses (R), 3+ Radial Pulses (L) Gastrointestinal: non tender, soft Extremity: No Calf Tenderness, Pedal Edema, Other (dry gangrene on toes, same as yesterday) Neurologic/Psychiatric: Alert, Oriented x3, Motor Weakness (all extremities due to muscle wasting) Results Lab Laboratory Tests 02/10/20 04:45: White Blood Count 17.2H, Red Blood Count 2.78L, Hemoglobin 8.7L, Hematocrit 28L, Mean Corpuscular Volume 101H, Mean Corpuscular Hemoglobin 31, Mean Corpuscular H emoglobin Concent 31L, Red Cell Distribution Width 17.9H, Platelet Count 702H, Mean Platelet Volume 8.7, Neutrophils (%) (Auto) 74, Lymphocytes (%) (Auto) 16, Monocytes (%) (Auto) 9, Eosinophils (%) (Auto) 1, Basophils (%) (Auto) 1, Neutrophils # (Auto) 12.6H, Lymphocytes # (Auto) 2.7, Monocytes # (Auto) 1.6H, Eosinophils # (Auto) 0.1, Basophils # (Auto) 0.1, Sodium Level 138, Potassium Level 4.5, Chloride Level 102, Carbon Dioxide Level 28, Anion Gap 8, Blood Urea Nitrogen 22H, Creatinine 0.52L, Estimat Glomerular Filtration Rate > 60, BUN/Creatinine Ratio 42, Glucose Level 101, Calcium Level 8.6, Corrected Calcium 9.6, Total Bilirubin < 0.1L, Aspartate Amino Transf (AST/SGOT) 20, Alanine Aminotransferase (ALT/SGPT) 29, Alkaline Phosphatase 88, Total Protein 6.3L, Albumin 2.8L Assessment/Plan Assessment/Plan Assessment/Plan Chronic Right Lower extremity Ischemia Chronic Respiratory Failure - improved Hx of Afib - tachy but regular today Plan to continue to allow the toes to demarcate, before deciding what intervention will be needed. We may be able to just remove 1-2 toes, as long as there is no wet gangrene or osteomyelitis then there would be the possibility of metatarsal amputation or even BKA. Will try to keep his pain controlled and monitor his foot. All questions answered to his satisfaction. Clinical Quality Measures DVT/VTE Risk/Contraindication: Risk Factor Score Per Nursin RFS Level Per Nursing on Admit: 4+=Very High CANDI MIJARES DO February 10, 2020 12:52
--- NOTE | 2020-02-10 13:54 | Physical Therapy Daily Note ---
PT Daily Note-Current Subjective Pt. in gym, just completing OT, states "I don't think I can do much more, my foot is killing me." Pain rated "12/10" in the R foot. Mental Status Patient Orientation: Person, Place, Time, Situation Attachments: Oxygen (1.5 L) Transfers SCALE: Activities may be completed with or without assistive devices. 0-Yqklvukpfk-tqaftet completes the activity by him/herself with no assistance from a helper. 5-Set-up or Clean-up Assistance-helper sets up or cleans up; patient completes activity. [place] assists only prior to or following the activity. 4-Supervision or Touching Assistance-helper provides verbal cues and/or touching/steadying and/or contact guard assistance as patient completes activity. Assistance may be provided throughout the activity or intermittently. 3-Partial/Moderate Assistance-helper does LESS THAN HALF the effort. [place] lifts, holds or supports trunk or limbs, but provides less than half the effort. 2-Substantial/Maximal Assistance-helper does MORE THAN HALF the effort. [place] lifts or holds trunk or limbs and provides more than half the effort. 2-Bddorgaoh-asvoym does ALL the effort. Patient does none of the effort to complete the activity. Or, the assistance of 2 or more helpers is required for the patient to complete the activity. If activity was not attempted, code reason: 7-Patient Refused. 9-Not Applicable-not attempted and the patient did not perform the activity before the current illness, exacerbation or injury. 10-Not Attempted due to Environmental Limitations-(lack of equipment, weather restraints, etc.). 88-Not Attempted due to Medical Conditions or Safety Concerns. Sit to Stand (QC): 4 increased effort required with standing and is hesitant to begin ambulation Weight Bearing Right Lower Extremity: Right Weight Bearing/Tolerated Left Lower Extremity: Left Weight Bearing/Tolerated Gait Training Does the Patient Walk?: Yes Distance: x 100 ft Walk 10 feet (QC): 4 Walk 50 ft with 2 Turns(QC): 4 Gait Persons Needed: 1 Gait Assistive Device: FWW antalgic gait on the R LE Exercises NuStep Minutes: 2 NuStep Workload: 3 Treatments gait, attempted LE exercise with Nustep, however unable to complete multimedia authoring specialist Assessment Current Status: Fair Progress Pt. had significant increase in R foot pain this PM, refuses additional LE exercise or gait. Pt. returned to bedside chair with chair alarm set, O2 in situ and all needs met. Nursing aware of patient request for pain meds but is n ot due at this time. PT Short Term Goals Short Term Goals Time Frame: February 12, 2020 Roll Left & Right: 6 Sit to lyin Lying to sitting on side of be: 6 Sit to stand: 4 Chair/xxn-ln-xiozf transfer: 4 Walk 10 feet: 4 Walk 50 feet with two turns: 4 PT Site Coordinator Goals Site Coordinator Goals PT Senior Living Goals Time Frame: Feb 26, 2020 Roll Left & Right (QC): 6 Sit to Lying (QC): 6 Lying-Sitting on Side/Bed(QC): 6 Sit to Stand (QC): 5 Chair/Ieg-fk-Okgsh Xfer(QC): 5 Toilet Transfer (QC): 5 Car Transfer (QC): 5 Does the Patient Walk: Yes Walk 10 feet (QC): 5 Walk 50ft with 2 Turns (QC): 5 Walk 150 ft (QC): 5 Walking 10ft on Uneven Surface: 5 1 Step (curb) (QC): 4 4 Steps (QC): 4 12 Steps (QC): 88 Picking up an Object (QC): 88 Wheel 50 feet with 2 turns (QC: 6 Wheel 150 feet: 6 PT Plan Treatment/Plan Treatment Plan: Continue Plan of Care Treatment Plan: Education, Functional Activity Lorena, Functional Strength, Gait, Safety, Therapeutic Exercise, Transfers Treatment Duration: Feb 26, 2020 Frequency: tuyet melendez, 60 min per day Estimated Hrs Per Day: 1 hour per day Patient and/or Family Agrees t: Yes Time/GCodes Time In: 1330 Time Out: 1345 Total Billed Treatment Time: 15 Total Billed Treatment 1, GT 10', (Ex 5') IBAN HAIDER PT February 10, 2020 13:54
[2020-02-10 16:39] VITALS: BP 110/74
[2020-02-10] MEDS: RIVAROXABAN 20 MG TABLET (XARELTO) PO SCH (17:00)
[2020-02-11] MEDS: RT-ALBUTEROL/IPRATROPIUM 3 ML (DUONEB) VIAL INH SCH ×6 (02:20→22:19)
[2020-02-11] MEDS: CATHETER FLUSH 10 ML SYR IV SCH ×3 (05:57→20:11)
[2020-02-11] MEDS: predniSONE 20 MG TAB PO SCH (05:57)
[2020-02-11] MEDS: MULTIVIT W/MINERALS TAB (THERAGRAN M) PO SCH (05:57)
[2020-02-11] MEDS: FERROUS SULF 325 MG (IRON) TAB PO SCH ×3 (05:57→17:15)
--- NOTE | 2020-02-11 05:58 | PM&R Progress Note ---
Subjective HPI/CC On Admission Date Seen by Provider: February 11, 2020 Time Seen by Provider: 11:00 Subjective/Events-last exam Pt having increased back pain with B/L lower extremity numbness MRI obtained showing only degenerative changes White count elevated at 20 Procalcitonin at 0.18 Pain is still an issue and takes a lot of narcotics Will try to reassure the patient but he may very well need to go home with his brother or to a nursing facility since he is not really motivated to do a whole lot He still has the lung mass that we need to address Conferred with Dr Eugene and we will recheck his CT chest due to his increasing wbc since it could not be a mass after all Checked meds and labs Reviewed therapy notes Conferred with public works commissioner of Systems General: Fatigue Musculoskeletal: leg pain Neurological: Weakness Objective Exam Vital Signs Vital Signs Date Time Temp Pulse Resp B/P (MAP) Pulse Ox O2 Delivery O2 Flow Rate FiO2 02/11/20 18:02 93 Nasal Cannula 2.00 02/11/20 17:22 37.6 111 18 112/68 (83) Capillary Refill : Less Than 3 Seconds General Appearance: No Apparent Distress, WD/WN, Anxious, Chronically ill, Cachetic HEENT: PERRL/EOMI, Normal ENT Inspection, Pharynx Normal Neck: Full Range of Motion, Normal Inspection, Non Tender, Supple, Carotid Bruit Respiratory: Chest Non Tender, Lungs Clear, No Accessory Muscle Use, No Respiratory Distress, Decreased Breath Sounds Cardiovascular: Regular Rate, Rhythm, No Edema, No Gallop, No JVD, No Murmur, Normal Peripheral Pulses Gastrointestinal: Normal Bowel Sounds, No Organomegaly, No Pulsatile Mass, Non Tender, Soft Back: Normal Inspection, No CVA Tenderness, No Vertebral Tenderness Extremity: Normal Capillary Refill, Normal Inspection, Normal Range of Motion, Non Tender, No Calf Tenderness, No Pedal Edema Neurologic/Psychiatric: Alert, Oriented x3, No Motor/Sensory Deficits, Normal Mood/Affect, Motor Weakness (all extremities due to muscle wasting) Skin: Normal Color, Warm/Dry Lymphatic: No Adenopathy Results/Procedures Lab Laboratory Tests 02/11/20 06:25 Patient resulted labs reviewed. FIM Transfers Therapy Code Descriptions/Definitions Functional [place] Measure: 0=Not Assessed/NA 4=Minimal Assistance 1=Total Assistance 5=Supervision or Setup 2=Maximal Assistance 6=Modified [place] 3=Moderate Assistance 7=Complete IndependenceSCALE: Activities may be completed with or without assistive devices. 9-Wmjfiwhcej-hcjcupa completes the activity by him/herself with no assistance from a helper. 5-Set-up or Clean-up Assistance-helper sets up or cleans up; patient completes activity. [place] assists only prior to or following the activity. 4-Supervision or Touching Assistance-helper provides verbal cues and/or touching/steadying and/or contact guard assistance as patient completes activity. Assistance may be provided throughout the activity or intermittently. 3-Partial/Moderate Assistance-helper does LESS THAN HALF the effort. [place] lifts, holds or supports trunk or limbs, but provides less than half the effort. 2-Substantial/Maximal Assistance-helper does MORE THAN HALF the effort. [place] lifts or holds trunk or limbs and provides more than half the effort. 1-Mjysaujkf-gdpkhr does ALL the effort. Patient does none of the effort to comp lete the activity. Or, the assistance of 2 or more helpers is required for the patient to complete the activity. If activity was not attempted, code reason: 7-Patient Refused. 9-Not Applicable-not attempted and the patient did not perform the activity before the current illness, exacerbation or injury. 10-Not Attempted due to Environmental Limitations-(lack of equipment, weather restraints, etc.). 88-Not Attempted due to Medical Conditions or Safety Concerns. Roll Left to Right (QC): 6 Sit to Lying (QC): 6 Sit to Stand (QC): 4 Chair/Xqj-qy-Rizlz Xfer(QC): 4 Car Transfer (QC): 4 Gait Training Does the Patient Walk?: Yes Distance: x 100 ft Walk 10 feet (QC): 4 Walk 50 ft with 2 Turns(QC): 4 Walk 150 ft (QC): 88 Walking 10ft/uneven surface-QC: 4 Gait Persons Needed: 1 Gait Assistive Device: FWW Wheelchair Training Does the Pt Use a Wheelchair?: Yes Distance: 120'x2 Wheel 50 ft with 2 turns (QC): 4 Wheel 150 ft (QC): 4 Type of Wheelchair: Manual Stair Training 1 Step (curb) (QC): 88 4 Steps (QC): 88 12 Steps (QC): 88 Balance Picking up an Object (QC): 88 ADL-Treatment Eating (QC): 6 Oral Hygiene (QC): 5 Shower/Bathe Self (QC): 4 (Completes sponge bath with SBA during tasks. CGA with sit to stands from recliner chair. ) Upper Body Dressing (QC): 5 Lower Body Dressing (QC): 4 (CGA sit to stand and SBA pulling over hips. Pt u tilizes BUE without support of walker.) On/Off Footwear (QC): 7 (declines washing feet/ changing socks.) Toileting Hygiene (QC): 10 Assessment/Plan Assessment and Plan Assess & Plan/Chief Complaint Assessment: Myopathy PNA facility acquired AECOPD O2 dependent AF CAD PVD Cachexia Lung mass s/p VDRF Right toes dry gangrene consulted Dr Wright Elevated wbc count rechecking CT chest Bilateral leg weakness MRI reveals DJD of spine Plan: IRF protocol Monitor BP IV Abx completed Fall risk O2 titration Pain meds CT chest with labs in am (1) Myopathy (2) Acute occlusion of artery of lower extremity due to thromboembolism Status: Acute (3) Acute respiratory failure with hypoxia Status: Acute (4) Atrial fibrillation with rapid ventricular response Status: Acute (5) Severe protein-calorie malnutrition Status: Acute (6) Pneumonia Status: Acute (7) Debility Status: Acute (8) Iron deficiency anemia Status: Chronic (9) Lung mass Status: Acute (10) Tobacco abuse Status: Chronic (11) Folic acid deficiency Status: Chronic (12) Anemia of chronic disease Status: Chronic (13) COPD (chronic obstructive pulmonary disease) Status: Chronic LOI CORTEZ DO February 11, 2020 05:58
[2020-02-11 06:33] LABS: BASOPHILS # (AUTO) 0.1 10^3/uL (0.0-0.1); BASOPHILS % (AUTO) 1 % (0-10); EOSINOPHILS # (AUTO) 0.1 10^3/uL (0.0-0.3); EOSINOPHILS % (AUTO) 1 % (0-10); HEMATOCRIT 28 % (40-54); HEMOGLOBIN 8.8 G/DL (13.3-17.7); LYMPHOCYTES # (AUTO) 3.2 X 10^3 (1.0-4.0); LYMPHOCYTES % (AUTO) 16 % (12-44); MEAN CORPUSCULAR HEMOGLOBIN 32 PG (25-34); MEAN CORPUSCULAR HGB CONC 31 G/DL (32-36); MEAN CORPUSCULAR VOLUME 102 FL (80-99); MEAN PLATELET VOLUME 8.4 FL (7.4-10.4); MONOCYTES # (AUTO) 1.7 X 10^3 (0.0-1.0); MONOCYTES % (AUTO) 8 % (0-12); NEUTROPHILS # (AUTO) 14.9 X 10^3 (1.8-7.8); NEUTROPHILS % (AUTO) 75 % (42-75); PLATELET COUNT 739 10^3/uL (130-400)
[2020-02-11 06:50] LABS: ALANINE AMINOTRANSFERASE 29 U/L (0-55); ALBUMIN 2.9 GM/DL (3.2-4.5); ALKALINE PHOSPHATASE 85 U/L (40-136); BILIRUBIN,TOTAL 0.1 MG/DL (0.1-1.0); BUN/CREATININE RATIO 40; CALCIUM 8.5 MG/DL (8.5-10.1); CARBON DIOXIDE 28 MMOL/L (21-32); CHLORIDE 103 MMOL/L (98-107); CREATININE SERUM 0.58 MG/DL (0.60-1.30); GFR ESTIMATED > 60; GLUCOSE 110 MG/DL (70-105); SODIUM 141 MMOL/L (135-145); TOTAL PROTEIN 6.2 GM/DL (6.4-8.2)
[2020-02-11 06:58] VITALS: BP 103/61
--- NOTE | 2020-02-11 08:42 | Physical Therapy Daily Note ---
PT Daily Note-Current Subjective Pt. in bed, furrowed brow somewhat diaphoretic states he is in "100/10" . Pt. declines up in chair or at edge of bed. "Im not going to move from this position very much, I hurt way too bad" Pt. c/o most of his pain is in his legs and arms. Pain Numeric Pain Scale: 10-Worst Possible Pain Location: Left (and right) Location Body Site: Arm (bilat arms and legs) Pain Description: Crushing Appearance pt. appears in severe pain, furrowed brow, whinces and holds self stiffly in place , guarded Mental Status Patient Orientation: Normal For Age Transfers SCALE: Activities may be completed with or without assistive devices. 3-Almbbtibrd-yelethd completes the activity by him/herself with no assistance from a helper. 5-Set-up or Clean-up Assistance-helper sets up or cleans up; patient completes activity. [place] assists only prior to or following the activity. 4-Supervision or Touching Assistance-helper provides verbal cues and/or touching/steadying and/or contact guard assistance as patient completes activity. Assistance may be provided throughout the activity or intermittently. 3-Partial/Moderate Assistance-helper does LESS THAN HALF the effort. [place] lifts, holds or supports trunk or limbs, but provides less than half the effort. 2-Substantial/Maximal Assistance-helper does MORE THAN HALF the effort. [place] lifts or holds trunk or limbs and provides more than half the effort. 8-[place]-osobot does ALL the effort. Patient does none of the effort to complete the activity. Or, the assistance of 2 or more helpers is required for the patient to complete the activity. If activity was not attempted, code reason: 7-Patient Refused. 9-Not Applicable-not attempted and the patient did not perform the activity before the current illness, exacerbation or injury. 10-Not Attempted due to Environmental Limitations-(lack of equipment, weather restraints, etc.). 88-Not Attempted due to Medical Conditions or Safety Concerns. Roll Left & Right (QC): 4 minimal movement in bed secondary to severe pain Weight Bearing Right Lower Extremity: Right Weight Bearing/Tolerated Left Lower Extremity: Left Weight Bearing/Tolerated Exercises Supine Ex: Rolling, Heel Slides, Hip abd/add Supine Reps: 5 Treatments nursing consulted and pursuing what pt. can have for pain. BP 107/64, HR 104, O2sats 95% resp 20 Assessment Current Status: Regressing unable to tolerate exercise or gait at this time secondary to pain, pt. assessed and nursing consulted PT Short Term Goals Short Term Goals Time Frame: February 12, 2020 Roll Left & Right: 6 Sit to lyin Lying to sitting on side of be: 6 Sit to stand: 4 Chair/zqw-bv-rdpdc transfer: 4 Walk 10 feet: 4 Walk 50 feet with two turns: 4 PT Care Home Goals Avionics Engineer Goals PT Care Home Goals Time Frame: Feb 26, 2020 Roll Left & Right (QC): 6 Sit to Lying (QC): 6 Lying-Sitting on Side/Bed(QC): 6 Sit to Stand (QC): 5 Chair/Qca-om-Rqdlq Xfer(QC): 5 Toilet Transfer (QC): 5 Car Transfer (QC): 5 Does the Patient Walk: Yes Walk 10 feet (QC): 5 Walk 50ft with 2 Turns (QC): 5 Walk 150 ft (QC): 5 Walking 10ft on Uneven Surface: 5 1 Step (curb) (QC): 4 4 Steps (QC): 4 12 Steps (QC): 88 Picking up an Object (QC): 88 Wheel 50 feet with 2 turns (QC: 6 Wheel 150 feet: 6 PT Plan Treatment/Plan Treatment Plan: Continue Plan of Care (as tolerated) Treatment Plan: Education, Functional Activity Lorena, Functional Strength, Gait, Safety, Therapeutic Exercise, Transfers Treatment Duration: Feb 26, 2020 Frequency: tuyet melendez, 60 min per day Estimated Hrs Per Day: 1 hour per day Patient and/or Family Agrees t: Yes Safety Risks/Education Patient Education: Disease Process Time/GCodes Time In: 800 Time Out: 830 Total Billed Treatment Time: 30 Total Billed Treatment 1,FA30m MELINDA MICHAEL NUT STEAMER February 11, 2020 08:42
[2020-02-11] MEDS: DIGOXIN 0.25 MG (LANOXIN) TAB PO SCH (08:45)
[2020-02-11] MEDS: guaiFENesin (MUCINEX) 600 MG TAB PO SCH ×2 (08:45→20:09)
[2020-02-11] MEDS: PANTOPRAZOLE 40 MG (PROTONIX) TAB PO SCH (08:45)
[2020-02-11] MEDS: FOLIC ACID 1 MG TAB PO SCH (08:45)
[2020-02-11] MEDS: risperiDONE 0.25 MG (RisperDAL) TAB PO SCH ×2 (08:45→20:09)
[2020-02-11] MEDS: morphine INJ 4 MG/ML 1 ML (VIAL/SYRINGE) IVP PRN (09:31)
--- NOTE | 2020-02-11 09:44 | Occ Therapy Progress Note ---
Therapy Progress Note OT attempted treatment with pt. Pt. reports that he is hurting and can't participate. States, "I did too much yesterday." Pt. reports 10/10 pain in right UE and bilateral LE, with exception of feet. Pt. states that he has taken a pain pill, but would like more. Pt. declines all attempts of OOB treatment. Nursing notified and will be giving pt. IV morphine. Will check back on pt. and attempt to engage in participation as pain tolerance allows. 1, visit x 15minutes Declined treatment [id number] REGGIE GARCIA OT February 11, 2020 09:44
--- NOTE | 2020-02-11 10:14 | Cardiology Progress Note ---
Subjective Date Seen by Provider: February 11, 2020 Time Seen by Provider: 10:12 Subjective/Events-last exam Patient is sitting up in bed, c/o BLE pain and numbness. Denies any chest pain. Review of Systems General: No Chills, No Night Sweats, No Fatigue, No Malaise, No Appetite, No Other HEENT: No Head Aches, No Visual Changes, No Eye Pain, No Ear Pain, No Dysphasia, No Sinus Congestion, No Post Nasal Drip, No Sore Throat, No Other Pulmonary: No Dyspnea, No Cough, No Pleuritic Chest Pain, No Other Cardiovascular: No: Chest Pain, Palpitations, Orthopnea, Paroxysmal Noc. Dyspnea, Edema, Lt Headedness, Other Objective-Cardiology Exam Last Set of Vital Signs Vital Signs 02/11/20 02/11/20 06:58 09:00 Temp 37.0 Pulse 102 Resp 16 B/P (MAP) 103/61 (75) Pulse Ox 92 O2 Delivery Nasal Cannula O2 Flow Rate 1.50 Capillary Refill : Less Than 3 Seconds I&O Intake and Output 02/11/20 00:00 Intake Total 974 ml Output Total 1725 ml Balance -751 ml Intake Oral 964 ml IV Total 10 ml Output Urine Total 1725 ml # Bowel Movements 1 General: Alert, Oriented X3, Cooperative HEENT: Atraumatic, PERRLA Neck: Supple, No JVD, No Thyromegaly Lungs: Clear to Auscultation, Normal Air Movement Heart: Regular Rate, Normal S1, Normal S2, No Murmurs Abdomen: Normal Bowel Sounds, Soft, No Tenderness, No Hepatosplenomegaly, No Masses Extremities: No Clubbing, No Cyanosis, No Edema, Normal Pulses, No Tenderness/S welling Skin: No Rashes, No Breakdown, No Significant Lesion Neuro: Normal Gait, Normal Speech, Strength at 5/5 X4 Ext, Normal Tone, Sensation Intact Psych/Mental Status: Mental Status NL, Mood NL Results Lab Laboratory Tests 02/11/20 06:25 A/P-Cardiology Admission Diagnosis Shortness of breath Cough Chest pain Acute limb ischemia Assessment/Plan Shortness of breath, cough productive of yellowish sputum, patient reports some improvement today, probably nosocomial pneumonia, receiving cefepime, managed by primary care physician BLE numbness and pain, MRI of the lumbar spine showed some degenerative disease, there is no abdominal aneurysm Chest pain, nonspecific etiology, cardiac catheterization carried out on January 30, 2020 showing mild to moderate coronary artery disease nonobstructive disease. Chest pain is unlikely to be cardiac, Anemia, managed by primary care team, H&H is monitored, EGD done with Dr. Wright reported gastritis and hiatal hernia. Managed by primary care team Status post acute limb ischemia due to embolization probably from atrial fibrillation. Angiogram was carried out showing total occlusion with thrombus in the distal SFA, received thrombolytics and reestablished flow. Maintained on Xarelto at this time. Continue to monitor PAF with RVR on 01/24/20, continue to monitor. 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 Has been on disability Tobaccoism, stopped smoking in December 2019, advised to continue to refrain Patient was seen and evaluated with Stacie, examination performed, management plan was discussed, agree with the current scribed note, I made few changes to the note using Italic font Patient was having pain and numbness in both legs with weakness, I decided to p roceed with MRI to evaluate for any spinal cord compression and evaluate the possibility of aneurysm as a source of his embolization. MRI was done showing degenerative disease, no significant critical compression, no aneurysm Continue with physical therapy and medical therapy at this point Clinical Quality Measures DVT/VTE Risk/Contraindication: Risk Factor Score Per Nursin RFS Level Per Nursing on Admit: 4+=Very High STACIE PATEL February 11, 2020 10:14 THERESA BELLAMY MD February 11, 2020 13:34
--- NOTE | 2020-02-11 10:26 | NUR ---
Pastoral care visit
[2020-02-11] MEDS ORDERED: GADOBUTROL 10 MMOL/10 ML (GADAVIST) VIAL IV ONE (10:30)
[2020-02-11] MEDS: DOCUSATE SODIUM 100 MG (COLACE) CAP PO SCH ×2 (10:53→20:19)
[2020-02-11] MEDS: SENNA W/DOCUSATE (SENOKOT S) TABLET PO SCH ×2 (10:53→20:20)
[2020-02-11] MEDS: polyethylene glycoL POWDER 17 GM (MIRALAX) PACK PO SCH ×2 (10:53→20:19)
[2020-02-11] MEDS: GABAPENTIN 100 MG (NEURONTIN) CAP PO SCH ×3 (11:15→20:10)
[2020-02-11] MEDS ORDERED: GADOBUTROL 7.5 MMOL/7.5 ML (GADAVIST) VIAL IV ONE (12:00)
--- NOTE | 2020-02-11 12:00 | NUR ---
Pt's brother here to visit and brought snacks and candy. Pt appears in good spirits at this time.
--- NOTE | 2020-02-11 12:25 | Diagnostic Imaging Report ---
PROCEDURE: MRI lumbar spine with and without contrast. TECHNIQUE: Multiplanar, multisequence MRI of the lumbar spine was performed with and without contrast. INDICATION: Back pain. FINDINGS: The alignment of the lumbar spine is normal. The vertebral body heights are well-maintained. There is no spondylolysis or spondylolisthesis. No fractures are identified. Conus medullaris is seen at L1, normal in appearance. T12-L1 is unremarkable. The L1-L2 disc is normal in height, signal intensity and morphology. There is no spinal or neural foraminal encroachment. At L2-L3 minimal annular bulging and mild facet disease. Slight effacement of ventral thecal sac and minimal neural foraminal encroachment. At L3-L4 there is slight loss of disc heights and signal intensity. Some annular bulging, facet disease and thickening of ligamentum flavum. Mild central spinal stenosis and mild bilateral neural foraminal encroachment. At L4-L5 there is loss of disc height and signal intensity. There is some annular bulging, facet disease and thickening of the ligamentum flavum. There is mild spinal stenosis and mild encroachment on the lateral recess bilaterally. There is moderate right and bcfq-em-wviyxdus left neural foraminal encroachment. At L5-S1 there is some annular bulging and facet disease. There is mild spinal stenosis. There is moderate bilateral neural foraminal encroachment right greater than left. The aorta is nonaneurysmal. Kidneys normal in appearance. IMPRESSION: Diffuse lumbar spondylosis and multilevel degenerative disc disease as described. Dictated by: Dictated on workstation # [id number]
--- NOTE | 2020-02-11 13:45 | Physical Therapy Daily Note ---
PT Daily Note-Current Subjective Pt. states he is still in pain on right side, arm and leg and now concentrated in right groin area. Rates it 05/27. Pt. states he is given to understand he is started on new drug for nerve pain and wants to know the name and how often he will get this drug. This FREIGHT SEPARATOR requested nursing consult with pt. pt. continues to decline up on his feet but agrees to some sitting edge of bed and supine exercise Pain Numeric Pain Scale: 9 Location: Right Location Body Site: Hip (groin) Pain Description: Stabbing Appearance holding groin with hand Mental Status Patient Orientation: Normal For Age Transfers SCALE: Activities may be completed with or without assistive devices. 7-Eudhgmifwi-ootmddb completes the activity by him/herself with no assistance from a helper. 5-Set-up or Clean-up Assistance-helper sets up or cleans up; patient completes activity. [place] assists only prior to or following the activity. 4-Supervision or Touching Assistance-helper provides verbal cues and/or touching/steadying and/or contact guard assistance as patient completes activity. Assistance may be provided throughout the activity or intermittently. 3-Partial/Moderate Assistance-helper does LESS THAN HALF the effort. [place] lifts, holds or supports trunk or limbs, but provides less than half the effort. 2-Substantial/Maximal Assistance-helper does MORE THAN HALF the effort. [place] lifts or holds trunk or limbs and provides more than half the effort. 0-Xzgvkhqhu-jakhbd does ALL the effort. Patient does none of the effort to complete the activity. Or, the assistance of 2 or more helpers is required for the patient to complete the activity. If activity was not attempted, code reason: 7-Patient Refused. 9-Not Applicable-not attempted and the patient did not perform the activity before the current illness, exacerbation or injury. 10-Not Attempted due to Environmental Limitations-(lack of equipment, weather restraints, etc.). 88-Not Attempted due to Medical Conditions or Safety Concerns. sup to sit to sup indep, pushes self up in bed and rolls indep etc Weight Bearing Right Lower Extremity: Right Weight Bearing/Tolerated Left Lower Extremity: Left Weight Bearing/Tolerated Exercises Supine Ex: Ankle pumps, Quad Set, Rolling, Glut sets, Heel Slides, Scooting, Straight leg raise, Hip abd/add Supine Reps: 20 pt. says all exercises increase his pain and many rest breaks taken Assessment Current Status: Poor Progress pain continues to limit function and progress today PT Short Term Goals Short Term Goals Time Frame: February 12, 2020 Roll Left & Right: 6 Sit to lyin Lying to sitting on side of be: 6 Sit to stand: 4 Chair/fav-ld-sbfie transfer: 4 Walk 10 feet: 4 Walk 50 feet with two turns: 4 PT Custodial Goals Custodial Goals PT Clearing House Clerk Goals Time Frame: Feb 26, 2020 Roll Left & Right (QC): 6 Sit to Lying (QC): 6 Lying-Sitting on Side/Bed(QC): 6 Sit to Stand (QC): 5 Chair/Ojk-ee-Saxou Xfer(QC): 5 Toilet Transfer (QC): 5 Car Transfer (QC): 5 Does the Patient Walk: Yes Walk 10 feet (QC): 5 Walk 50ft with 2 Turns (QC): 5 Walk 150 ft (QC): 5 Walking 10ft on Uneven Surface: 5 1 Step (curb) (QC): 4 4 Steps (QC): 4 12 Steps (QC): 88 Picking up an Object (QC): 88 Wheel 50 feet with 2 turns (QC: 6 Wheel 150 feet: 6 PT Plan Treatment/Plan Treatment Plan: Continue Plan of Care Treatment Plan: Education, Functional Activity [place], Functional Strength, Gait, Safety, Therapeutic Exercise, Transfers Treatment Duration: Feb 26, 2020 Frequency: tuyet melendez, 60 min per day Estimated Hrs Per Day: 1 hour per day Patient and/or Family Agrees t: Yes Time/GCodes Time In: 1305 Time Out: 1335 Total Billed Treatment Time: 30 Total Billed Treatment 1,EX30m MELINDA MICHAEL FREIGHT SEPARATOR February 11, 2020 13:45
--- NOTE | 2020-02-11 14:00 | NUR ---
Pt requested RN to his room. Pt states he believes the addition of Gabapentin and taking his pain medication has improved his pain relief. RN provided education on his gabapentin schedule, and that this medication does not need to be requested. He expresses hope that this will improve his pain management.
--- NOTE | 2020-02-11 14:36 | Occ Therapy Progress Note ---
Therapy Progress Note OT attempted to treat pt. again this p.m. Pt. in bed and reports that he is feeling better. However, states that he does not feel like getting out of bed at this time. States, "I don't want to do anything to increase my pain." Pt. is encouraged to continue working with strengthening with OT, but pt. is adamant that he does not want to work at this time. OT and pt. talk about pt. discharging with home health, with brother support. Pt. states that he feels comfortable staying here, and would like to see if his new medicine "kicks in" or not. All needs met in room and nursing aware. 1, visit [id number] Declined REGGIE Puga OT February 11, 2020 14:36
[2020-02-11] MEDS: RIVAROXABAN 20 MG TABLET (XARELTO) PO SCH (17:15)
[2020-02-11 17:22] VITALS: BP 112/68
[2020-02-12] MEDS: RT-ALBUTEROL/IPRATROPIUM 3 ML (DUONEB) VIAL INH SCH ×6 (02:07→21:34)
[2020-02-12 05:15] LABS: BASOPHILS # (AUTO) 0.1 10^3/uL (0.0-0.1); BASOPHILS % (AUTO) 1 % (0-10); EOSINOPHILS # (AUTO) 0.1 10^3/uL (0.0-0.3); EOSINOPHILS % (AUTO) 1 % (0-10); HEMATOCRIT 28 % (40-54); HEMOGLOBIN 8.5 G/DL (13.3-17.7); LYMPHOCYTES # (AUTO) 3.3 X 10^3 (1.0-4.0); LYMPHOCYTES % (AUTO) 16 % (12-44); MEAN CORPUSCULAR HEMOGLOBIN 31 PG (25-34); MEAN CORPUSCULAR HGB CONC 31 G/DL (32-36); MEAN CORPUSCULAR VOLUME 102 FL (80-99); MEAN PLATELET VOLUME 8.8 FL (7.4-10.4); MONOCYTES # (AUTO) 1.8 X 10^3 (0.0-1.0); MONOCYTES % (AUTO) 9 % (0-12); NEUTROPHILS # (AUTO) 15.7 X 10^3 (1.8-7.8); NEUTROPHILS % (AUTO) 75 % (42-75); PLATELET COUNT 719 10^3/uL (130-400); RED CELL DISTRIBUTION WIDTH 18.3 % (10.0-14.5)
[2020-02-12 05:35] LABS: ALANINE AMINOTRANSFERASE 29 U/L (0-55); ALBUMIN 2.8 GM/DL (3.2-4.5); ALKALINE PHOSPHATASE 77 U/L (40-136); BILIRUBIN,TOTAL < 0.1 MG/DL (0.1-1.0); BUN/CREATININE RATIO 49; CALCIUM 8.4 MG/DL (8.5-10.1); CARBON DIOXIDE 28 MMOL/L (21-32); CHLORIDE 105 MMOL/L (98-107); CREATININE SERUM 0.53 MG/DL (0.60-1.30); GFR ESTIMATED > 60; GLUCOSE 96 MG/DL (70-105); POTASSIUM 4.2 MMOL/L (3.6-5.0); SODIUM 141 MMOL/L (135-145)
[2020-02-12 05:41] LABS: ATYPICAL LYMPHOCYTES 8 %; BAND NEUTROPHILS 7 %; EOSINOPHILS % (MANUAL) 1 %; LYMPHOCYTES % (MANUAL) 19 %; MONOCYTES % (MANUAL) 9 %; NEUTROPHILS % (MANUAL) 56 %
[2020-02-12 05:42] LABS: ANISOCYTOSIS MODERATE
[2020-02-12] MEDS: predniSONE 20 MG TAB PO SCH ×2 (05:43→05:52)
[2020-02-12] MEDS: CATHETER FLUSH 10 ML SYR IV SCH ×3 (05:43→20:15)
[2020-02-12] MEDS: FERROUS SULF 325 MG (IRON) TAB PO SCH ×2 (05:43→17:48)
[2020-02-12] MEDS: MULTIVIT W/MINERALS TAB (THERAGRAN M) PO SCH (05:43)
--- NOTE | 2020-02-12 05:52 | NUR ---
Prednisone decreased from 40 mg to 20 mg after this am's dose already given. Will start Prednisone 20 mg in am.
--- NOTE | 2020-02-12 05:52 | Pulmonary Progress Note ---
Subjective Time Seen by a Provider: 05:49 Subjective/Events-last exam No complications noted. Sepsis Event Evaluation Height, Weight, BMI Height: '" Weight: lbs. oz. kg; 15.59 BMI Method: Exam Exam Vital Signs Date Time Temp Pulse Resp B/P (MAP) Pulse Ox O2 Delivery O2 Flow Rate FiO2 02/12/20 02:08 90 Nasal Cannula 2.00 02/11/20 22:18 90 Nasal Cannula 2.00 02/11/20 20:30 Nasal Cannula 1.50 02/11/20 18:02 93 Nasal Cannula 2.00 02/11/20 17:22 37.6 111 18 112/68 (83) 95 Nasal Cannula 1.50 02/11/20 14:21 87 Room Air 0.00 02/11/20 09:00 Nasal Cannula 1.50 02/11/20 06:58 37.0 102 16 103/61 (75) 92 Nasal Cannula 1.50 02/11/20 06:55 90 Nasal Cannula 1.00 I & O 02/12/20 07:00 Intake Total 2000 ml Output Total 875 ml Balance 1125 ml Height & Weight Height: '" Weight: lbs. oz. kg; 15.59 BMI Method: General Appearance: No Apparent Distress, WD/WN, Anxious, Chronically ill, Cachetic HEENT: PERRL/EOMI, Normal ENT Inspection, Pharynx Normal Neck: Full Range of Motion, Normal Inspection, Non Tender, Supple, Carotid Bruit Respiratory: Chest Non Tender, Lungs Clear, No Accessory Muscle Use, No Respiratory Distress, Decreased Breath Sounds Cardiovascular: Regular Rate, Rhythm, No Edema, No Gallop, No JVD, No Murmur, Normal Peripheral Pulses Capillary Refill: Less Than 3 Seconds Peripheral Pulses: 2+ Femoral (R), 2+ Femoral (L); 1+ Dorsalis Pedis (R); 3+ Radial Pulses (R), 3+ Radial Pulses (L) Gastrointestinal: non tender, soft Extremity: Normal Capillary Refill, Normal Inspection, Normal Range of Motion, Non Tender, No Calf Tenderness, No Pedal Edema Neurologic/Psychiatric: Alert, Oriented x3, No Motor/Sensory Deficits, Normal Mood/Affect, Motor Weakness (all extremities due to muscle wasting) Skin: Normal Color, Warm/Dry Lymphatic: No Adenopathy Results Lab Laboratory Tests 02/11/20 06:25 02/12/20 03:58 Assessment/Plan Assessment/Plan PNA -- -Pt feels better today - Cefepime -- has been d/c'd -Repeat CT scan - today - SVNS Leukocytosis -Decrease Prednisone to 20mg daily Acute occlusion of artery of right lower extremity s/p abdominal aorta gram with TPA via cath anemia -monitor - protonix Tobacco use with probable severe COPD -Out pt testing JENI DENISE DO February 12, 2020 05:52
[2020-02-12 05:55] VITALS: BP 101/67
--- NOTE | 2020-02-12 08:08 | Cardiology Progress Note ---
Subjective Date Seen by Provider: February 12, 2020 Time Seen by Provider: 08:06 Subjective/Events-last exam Patient sitting up in chair, c/o left hip pain. Denies nay chest pain or dyspnea. Review of Systems General: No Chills, No Night Sweats; Fatigue, Malaise; No Appetite, No Other HEENT: No Head Aches, No Visual Changes, No Eye Pain, No Ear Pain, No Dysphasia, No Sinus Congestion, No Post Nasal Drip, No Sore Throat, No Other Pulmonary: No Dyspnea, No Cough, No Pleuritic Chest Pain, No Other Cardiovascular: No: Chest Pain, Palpitations, Orthopnea, Paroxysmal Noc. Dyspnea, Edema, Lt Headedness, Other Objective-Cardiology Exam Last Set of Vital Signs Vital Signs 02/12/20 02/12/20 02/12/20 05:55 06:48 08:10 Temp 36.6 Pulse 114 Resp 20 B/P (MAP) 117/75 (89) Pulse Ox 93 O2 Delivery Nasal Cannula O2 Flow Rate 2.00 Capillary Refill : Less Than 3 Seconds I&O Intake and Output 02/12/20 00:00 Intake Total 1850 ml Output Total 1975 ml Balance -125 ml Intake Oral 1850 ml Output Urine Total 1975 ml # Voids 6 # Bowel Movements 1 General: Alert, Oriented X3, Cooperative HEENT: Atraumatic, PERRLA Neck: Supple, No JVD, No Thyromegaly Lungs: Clear to Auscultation, Normal Air Movement Heart: Regular Rate, Normal S1, Normal S2, No Murmurs Abdomen: Normal Bowel Sounds, Soft, No Tenderness, No Hepatosplenomegaly, No Masses Extremities: No Clubbing, No Cyanosis, No Edema, Normal Pulses, No Tenderness/Swelling Skin: No Rashes, No Breakdown, No Significant Lesion Neuro: Normal Gait, Normal Speech, Strength at 5/5 X4 Ext, Normal Tone, Sensation Intact Psych/Mental Status: Mental Status NL, Mood NL Results Lab Laboratory Tests 02/12/20 03:58 A/P-Cardiology Admission Diagnosis Shortness of breath Cough Chest pain Acute limb ischemia Assessment/Plan Pneumonia, improved, received cefepime, managed by primary care physician BLE numbness and pain, MRI of the lumbar spine showed some degenerative disease, there is no abdominal aneurysm. Patient c/o left hip pain today. Chest pain, nonspecific etiology, cardiac catheterization carried out on January 30, 2020 showing mild to moderate coronary artery disease nonobstructive disease. Chest pain is unlikely to be cardiac, Anemia, managed by primary care team, H&H is monitored, EGD done with Dr. Wright reported gastritis and hiatal hernia. Managed by primary care team Status post acute limb ischemia due to embolization probably from atrial fibrillation. Angiogram was carried out showing total occlusion with thrombus in the distal SFA, received thrombolytics and reestablished flow. Maintained on Xarelto at this time. Continue to monitor PAF with RVR on 01/24/20, continue to monitor. Left upper lobe mass, Dr. Eugene following, planning for repeat CT History of head trauma in or around 2017, was in coma for about a month. Has been on disability Tobaccoism, stopped smoking in December 2019, advised to continue to refrain Patient was seen and evaluated with Stacie, examination performed, management plan was discussed, agree with the current scribed note, I made few changes to the note using Italic font Patient is still having weakness and pain in his legs, left hip pain. No chest pain. Still having leukocytosis which could be reactive. Pneumonia managed by primary care team Clinical Quality Measures DVT/VTE Risk/Contraindication: Risk Factor Score Per Nursin RFS Level Per Nursing on Admit: 4+=Very High STACIE PATEL February 12, 2020 08:08 THERESA BELLAMY MD February 12, 2020 08:30
[2020-02-12 08:10] VITALS: BP 117/75
[2020-02-12] MEDS: FOLIC ACID 1 MG TAB PO SCH (08:12)
[2020-02-12] MEDS: risperiDONE 0.25 MG (RisperDAL) TAB PO SCH ×2 (08:12→20:14)
[2020-02-12] MEDS: PANTOPRAZOLE 40 MG (PROTONIX) TAB PO SCH (08:12)
[2020-02-12] MEDS: guaiFENesin (MUCINEX) 600 MG TAB PO SCH ×2 (08:12→20:13)
[2020-02-12] MEDS: GABAPENTIN 100 MG (NEURONTIN) CAP PO SCH ×3 (08:12→20:13)
[2020-02-12] MEDS: DIGOXIN 0.25 MG (LANOXIN) TAB PO SCH (08:12)
[2020-02-12] MEDS: SENNA W/DOCUSATE (SENOKOT S) TABLET PO SCH ×2 (08:18→19:24)
[2020-02-12] MEDS: DOCUSATE SODIUM 100 MG (COLACE) CAP PO SCH ×2 (08:18→19:24)
[2020-02-12] MEDS: polyethylene glycoL POWDER 17 GM (MIRALAX) PACK PO SCH ×2 (08:18→19:24)
--- NOTE | 2020-02-12 08:52 | Physical Therapy Daily Note ---
PT Daily Note-Current Subjective Patient in recliner pre tx, agrees to PT but states he wont' be able to do much today, he also performed less yesterday, has 10/10 pain in left leg. Patient has had pain meds and nurse states he cannot have any more at this time. Patient required max encouragement to participate and was educated on requirements of rehab and what is required to improve his functional mobility and be able to be successful at home. Appearance Patient in recliner post tx with nurse call, phone, tray, all needs met. Mental Status Patient Orientation: Person, Place, Situation Attachments: Oxygen Transfers SCALE: Activities may be completed with or without assistive devices. 0-Untbhvkffr-ljruafe completes the activity by him/herself with no assistance from a helper. 5-Set-up or Clean-up Assistance-helper sets up or cleans up; patient completes activity. [place] assists only prior to or following the activity. 4-Supervision or Touching Assistance-helper provides verbal cues and/or touching/steadying and/or contact guard assistance as patient completes activity. Assistance may be provided throughout the activity or intermittently. 3-Partial/Moderate Assistance-helper does LESS THAN HALF the effort. [place] lifts, holds or supports trunk or limbs, but provides less than half the effort. 2-Substantial/Maximal Assistance-helper does MORE THAN HALF the effort. [place] lifts or holds trunk or limbs and provides more than half the effort. 1-Olmtizolh-ozeolr does ALL the effort. Patient does none of the effort to complete the activity. Or, the assistance of 2 or more helpers is required for the patient to complete the activity. If activity was not attempted, code reason: 7-Patient Refused. 9-Not Applicable-not attempted and the patient did not perform the activity before the current illness, exacerbation or injury. 10-Not Attempted due to Environmental Limitations-(lack of equipment, weather restraints, etc.). 88-Not Attempted due to Medical Conditions or Safety Concerns. Sit to Stand (QC): 4 Chair/Qbh-kt-[place]jada Xfer(QC): 4 CGA, no assist needed to stand from a chair now but may need occasional cues for hand placement and positioning Weight Bearing Right Lower Extremity: Right Weight Bearing/Tolerated Left Lower Extremity: Left Weight Bearing/Tolerated Gait Training Distance: 120', 60'x2 Walk 10 feet (QC): 4 Walk 50 ft with 2 Turns(QC): 4 Gait Persons Needed: 1 Gait Assistive Device: FWW CGA, slow but steady ambulation Exercises Seated Therapy Exercises: Ankle pumps, Long arc quads, Hip flexion, Hip abd/add (with RTB and ball) Seated Reps: 20 Treatments transfers, ambulation, LE strengthening Assessment Current Status: Poor Progress Patient required extra time to encourage him to participate and for rest breaks. Patient has poor motivation that most likely will limit his progress, especially after he goes home and may not have anyone to motivate him. PT Short Term Goals Short Term Goals Time Frame: February 12, 2020 Roll Left & Right: 6 Sit to lyin Lying to sitting on side of be: 6 Sit to stand: 4 Chair/uut-qv-hhryo transfer: 4 Walk 10 feet: 4 Walk 50 feet with two turns: 4 PT Group Home Goals School Bus Monitor Goals PT Group Home Goals Time Frame: Feb 26, 2020 Roll Left & Right (QC): 6 Sit to Lying (QC): 6 Lying-Sitting on Side/Bed(QC): 6 Sit to Stand (QC): 5 Chair/Pkw-og-Aubmb Xfer(QC): 5 Toilet Transfer (QC): 5 Car Transfer (QC): 5 Does the Patient Walk: Yes Walk 10 feet (QC): 5 Walk 50ft with 2 Turns (QC): 5 Walk 150 ft (QC): 5 Walking 10ft on Uneven Surface: 5 1 Step (curb) (QC): 4 4 Steps (QC): 4 12 Steps (QC): 88 Picking up an Object (QC): 88 Wheel 50 feet with 2 turns (QC: 6 Wheel 150 feet: 6 PT Plan Problem List Problem List: Activity Tolerance, Functional Strength, Safety, Balance, Gait, Transfer, ROM Treatment/Plan Treatment Plan: Continue Plan of Care Treatment Plan: Education, Functional Activity [place], Functional Strength, Gait, Safety, Therapeutic Exercise, Transfers Treatment Duration: Feb 26, 2020 Frequency: tuyet melendez, 60 min per day Estimated Hrs Per Day: 1 hour per day Patient and/or Family Agrees t: Yes Safety Risks/Education Patient Education: Gait Training, Transfer Techniques, Correct Positioning, Safety Issues Teaching Recipient: Patient Teaching Methods: Demonstration, Discussion Response to Teaching: Reinforcement Needed Time/GCodes Time In: 0800 Time Out: 0900 Total Billed Treatment Time: 60 Total Billed Treatment 1 visit EX 15' GT 30' FA 15' MARKO REID PT February 12, 2020 08:52
[2020-02-12] MEDS ORDERED: CATHETER FLUSH 10 ML SYR IV PRN (09:15)
[2020-02-12] MEDS ORDERED: IOHEXOL 350 MG/ML 100 ML (OMNIPAQUE 350) VIAL IV ONE (09:15)
[2020-02-12] MEDS ORDERED: NS 100 ML (IVPB) BAG IV ONE (09:15)
[2020-02-12] MEDS ORDERED: HOLD METFORMIN - RECEIVED CONTRAST 20 ML VIAL IV SCH (09:15)
--- NOTE | 2020-02-12 09:20 | PM&R Progress Note ---
Subjective HPI/CC On Admission Date Seen by Provider: February 12, 2020 Time Seen by Provider: 09:30 Subjective/Events-last exam Neurontin 100mg TID is helping his pain Dr. 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 of Systems General: Fatigue Neurological: Weakness, Numbness, Incoordination Objective Exam Vital Signs Vital Signs Date Time Temp Pulse Resp B/P (MAP) Pulse Ox O2 Delivery O2 Flow Rate FiO2 02/12/20 17:53 91 Nasal Cannula 1.00 02/12/20 16:00 36.8 106 18 114/73 (87) Capillary Refill : Less Than 3 Seconds General Appearance: No Apparent Distress, WD/WN, Anxious, Chronically ill, Cachetic HEENT: PERRL/EOMI, Normal ENT Inspection, Pharynx Normal Neck: Full Range of Motion, Normal Inspection, Non Tender, Supple, Carotid Bruit Respiratory: Chest Non Tender, Lungs Clear, No Accessory Muscle Use, No Respiratory Distress, Decreased Breath Sounds Cardiovascular: Regular Rate, Rhythm, No Edema, No Gallop, No JVD, No Murmur, Normal Peripheral Pulses Gastrointestinal: Normal Bowel Sounds, No Organomegaly, No Pulsatile Mass, Non Tender, Soft Back: Normal Inspection, No CVA Tenderness, No Vertebral Tenderness Extremity: Normal Capillary Refill, Normal Inspection, Normal Range of Motion, Non Tender, No Calf Tenderness, No Pedal Edema Neurologic/Psychiatric: Alert, Oriented x3, No Motor/Sensory Deficits, Normal Mood/Affect, Motor Weakness (all extremities due to muscle wasting) Skin: Normal Color, Warm/Dry Lymphatic: No Adenopathy Results/Procedures Lab Laboratory Tests 02/12/20 03:58 Patient resulted labs reviewed. FIM Transfers Therapy Code Descriptions/Definitions Functional [place] Measure: 0=Not Assessed/NA 4=Minimal Assistance 1=Total Assistance 5=Supervision or Setup 2=Maximal Assistance 6=Modified [place] 3=Moderate Assistance 7=Complete IndependenceSCALE: Activities may be completed with or without assistive devices. 0-Okmqygitht-wwaxnwz completes the activity by him/herself with no assistance from a helper. 5-Set-up or Clean-up Assistance-helper sets up or cleans up; patient completes activity. [place] assists only prior to or following the activity. 4-Supervision or Touching Assistance-helper provides verbal cues and/or touching/steadying and/or contact guard assistance as patient completes activity. Assistance may be provided throughout the activity or intermittently. 3-Partial/Moderate Assistance-helper does LESS THAN HALF the effort. [place] lifts, holds or supports trunk or limbs, but provides less than half the effort. 2-Substantial/Maximal Assistance-helper does MORE THAN HALF the effort. [place] lifts or holds trunk or limbs and provides more than half the effort. 2-Jzlcsmtsc-wazgkd does ALL the effort. Patient does none of the effort to complete the activity. Or, the assistance of 2 or more helpers is required for the patient to complete the activity. If activity was not attempted, code reason: 7-Patient Refused. 9-Not Applicable-not attempted and the patient did not perform the activity before the current illness, exacerbation or injury. 10-Not Attempted due to Environmental Limitations-(lack of equipment, weather restraints, etc.). 88-Not Attempted due to Medical Conditions or Safety Concerns. Roll Left to Right (QC): 4 Sit to Lying (QC): 6 Sit to Stand (QC): 4 Chair/Red-zp-Nrblz Xfer(QC): 4 Car Transfer (QC): 4 Gait Training Does the Patient Walk?: Yes Distance: 120', 60'x2 Walk 10 feet (QC): 4 Walk 50 ft with 2 Turns(QC): 4 Walk 150 ft (QC): 88 Walking 10ft/uneven surface-QC: 4 Gait Persons Needed: 1 Gait Assistive Device: FWW Wheelchair Training Does the Pt Use a Wheelchair?: Yes Distance: 120'x2 Wheel 50 ft with 2 turns (QC): 4 Wheel 150 ft (QC): 4 Type of Wheelchair: Manual Stair Training 1 Step (curb) (QC): 88 4 Steps (QC): 88 12 Steps (QC): 88 Balance Picking up an Object (QC): 88 ADL-Treatment Eating (QC): 6 Oral Hygiene (QC): 5 Shower/Bathe Self (QC): 4 (Completes sponge bath with SBA during tasks. CGA with sit to stands from recliner chair. ) Upper Body Dressing (QC): 5 Lower Body Dressing (QC): 4 (CGA sit to stand and SBA pulling over hips. Pt ut ilizes BUE without support of walker.) On/Off Footwear (QC): 7 (declines washing feet/ changing socks.) Toileting Hygiene (QC): 10 Assessment/Plan Assessment and Plan Assess & Plan/Chief Complaint Assessment: Myopathy PNA facility acquired AECOPD O2 dependent AF CAD PVD Cachexia Lung mass s/p VDRF Right toes dry gangrene consulted Dr Wright Elevated wbc count rechecking CT chest Bilateral leg weakness MRI reveals DJD of spine Plan: IRF protocol Monitor BP IV Abx completed Fall risk O2 titration Pain meds CT chest with labs (1) Myopathy (2) Acute occlusion of artery of lower extremity due to thromboembolism Status: Acute (3) Acute respiratory failure with hypoxia Status: Acute (4) Atrial fibrillation with rapid ventricular response Status: Acute (5) Severe protein-calorie malnutrition Status: Acute (6) Pneumonia Status: Acute (7) Debility Status: Acute (8) Iron deficiency anemia Status: Chronic (9) Lung mass Status: Acute (10) Tobacco abuse Status: Chronic (11) Folic acid deficiency Status: Chronic (12) Anemia of chronic disease Status: Chronic (13) COPD (chronic obstructive pulmonary disease) Status: Chronic LOI CORTEZ DO February 12, 2020 09:20
--- NOTE | 2020-02-12 09:48 | Diagnostic Imaging Report ---
EXAMINATION: CT Chest with intravenous contrast. TECHNIQUE: Multiple contiguous axial images were obtained through the chest after the uneventful administration of intravenous contrast. All CT scans use one or more of the following dose optimizing techniques: automated exposure control, MA and/or KvP adjustment based on a patient size and exam type, or iterative reconstruction. HISTORY: Pneumonia COMPARISON: 01/14/2020 FINDINGS: There has been significant improvement in the previously seen dense consolidation in the left lung. There are a few patchy areas of nodularity and consolidation remaining within the left lung but to the greatest extent in the right middle lobe. The right middle lobe disease is also improved somewhat compared to prior exam. Lungs are severely emphysematous. Cavities have formed in the left upper lobe. There is layering mucus in the trachea. No pleural effusion. No pneumothorax. Heart size is normal. There are moderate coronary artery calcifications. No pericardial effusion. Aorta is normal in caliber. There is no axillary or supraclavicular lymphadenopathy. There is no mediastinal lymphadenopathy. Limited views of the upper abdomen are unremarkable. There are no suspicious osseus lesions. IMPRESSION: 1. Marked improvement in consolidation in the left lung with persistent right middle lobe consolidation and patchy areas of nodularity consistent with improving pneumonia. Dictated by: Dictated on workstation # [id number]
--- NOTE | 2020-02-12 10:55 | NUR ---
"RD ASSESSMENT PMHx: COPD; tobacco use PT INTERACTION: Pt was awake and pleasant during nutrition follow-up. Pt states he has been eating very well since last assessment, and tolerating the supplementation well. Note avg PO intake 98% x4d, per chart review. Pt states no issues with nausea, vomiting, constipation, or diarrhea since last assessment. Note last BM was 02/11, and pt currently on bowel regimen of colace BID; senna BID; and miralax BID, per chart review. Note recent 24# wt loss x1week, per chart review. ABNORMAL NUTRITION-RELATED LAB VALUES LOW: cr 0.53; Ca 8.4; bili <0.1; Pro 6.0; alb 2.8 HIGH: BNU 26 Est. kcal needs: 6522-3057 kcal | 30-35 kcal/kg Est. Pro needs: 65-75 g Pro | 1.2-1.4 g Pro/kg PES STATEMENT: Altered nutrition-related lab values - Pro, alb (NC-2.2) related to COPD as evidenced by chart review | Pro 6.0 | alb 2.8 INTERVENTION: Continue with current diet order of Regular diet. Continue with current supplementation order of Ensure HP (vary) with meals TID, for increased kcal and protein intake. Provides 160 kcal and 16 g Pro per serving. Will continue to follow and reassess as pt needs, intake, and status change. MONITOR/EVALUATE: PO Intake; Plan of Care; Hydration Status; Weight Status; Lab Values Doug Nunez, MS, RD, LD"
[2020-02-12] MEDS: ADVAIR HFA 115/21 MCG INHALER 8 GM IH SCH ×2 (11:04→17:52)
--- NOTE | 2020-02-12 11:05 | NUR ---
CM/SS WEEKLY PATIENT CARE CONFERENCE Reviewed Summary with patient and he is in agreement to plan for team to re-assess his status tomorrow and target a discharge if that is appropriate. Team tentatively suggested early next week. Overall discharge plan remains the same, patient to go to his brother's home and stay with him until able to return to his place at [facility] where he has lived 18 years. HHC: Patient is in agreement to participate with home health services, RN PT OT. Medicare Compare presented and discussed regarding agencies in service area. Patient requested [facility] [place] [facility], referral initiated for future discharge. DME: FWW will be needed, shower chair recommended and patient understands this is not covered by Medicare benefits. He indicates he can purchase private pay. Rx: Still concerning for anticipated new prescriptions since patient has no drug plan. PCP: Patient agreeable to initiate care through [facility].
--- NOTE | 2020-02-12 11:09 | Occupational Ther Daily Note ---
OT Current Status-Daily Note Subjective Pt. reports that he feels better than yesterday, but is still sore all over. Does not report pain level. OT encourages him that a warm shower may make him feel better. Mental Status/Objective Patient Orientation: Person, Place, Time, Situation ADL-Treatment Therapy Code Descriptions/Definitions Functional [place] Measure: 0=Not Assessed/NA 4=Minimal Assistance 1=Total Assistance 5=Supervision or Setup 2=Maximal Assistance 6=Modified [place] 3=Moderate Assistance 7=Complete IndependenceSCALE: Activities may be completed with or without assistive devices. 8-Oretlbbced-dtjzqnh completes the activity by him/herself with no assistance from a helper. 5-Set-up or Clean-up Assistance-helper sets up or cleans up; patient completes activity. [place] assists only prior to or following the activity. 4-Supervision or Touching Assistance-helper provides verbal cues and/or touching/steadying and/or contact guard assistance as patient completes activity. Assistance may be provided throughout the activity or intermittently. 3-Partial/Moderate Assistance-helper does LESS THAN HALF the effort. [place] lifts, holds or supports trunk or limbs, but provides less than half the effort. 2-Substantial/Maximal Assistance-helper does MORE THAN HALF the effort. [place] lifts or holds trunk or limbs and provides more than half the effort. 8-Luumcueev-pmyrqx does ALL the effort. Patient does none of the effort to complete the activity. Or, the assistance of 2 or more helpers is required for the patient to complete the activity. If activity was not attempted, code reason: 7-Patient Refused. 9-Not Applicable-not attempted and the patient did not perform the activity before the current illness, exacerbation or injury. 10-Not Attempted due to Environmental Limitations-(lack of equipment, weather restraints, etc.). 88-Not Attempted due to Medical Conditions or Safety Concerns. Eating (QC): 6 Oral Hygiene (QC): 7 Shower/Bathe Self (QC): 4 (CGA in stance for balance.) Upper Body Dressing (QC): 4 (SBA to doff/don shirt.) Lower Body Dressing (QC): 4 (CGA in stance to don pants over hips.) On/Off Footwear: 4 (SBA. Pt. holds out foot and asks OT to take socks off. Pt. encouraged to attempt for himself. Pt. able to do this.) Pt. began treatment with ambulation to shower. CT came in for pt. and so OT assisted pt. to wheelchair. When pt. came back, OT came back into room. Pt. agrees to shower. Increased time needed to doff/don clothing items, but pt. able to do all with SBA/CGA. Pt. requests to lay back down after shower task. All needs met. Education OT Patient Education: Correct positioning, Modified ADL techniques, Progress toward Goal/Update tx plan, Purpose of tx/functional activities, Reviewed precautions, Rehab process, Transfer techniques Teaching Recipient: Patient Teaching Methods: Demonstration, Discussion Response to Teaching: Verbalize Understanding, Return Demonstration OT Short Term Goals Short Term Goals Time Frame: February 12, 2020 Eatin Oral hygiene: 4 Toileting hygiene: 4 Shower/bathe self: 4 Upper body dressin Lower body dressin Putting on/taking off footwear: 5 OT [employer] Goals Jail Goals Time Frame: Feb 19, 2020 Eating (QC): 6 Oral Hygiene (QC): 6 Toileting Hygiene (QC): 6 Shower/Bathe Self (QC): 5 Upper Body Dressing (QC): 6 Lower Body Dressing (QC): 6 On/Off Footwear (QC): 6 Additional Goals: 1-Demonstrate ADL Tasks, 2-Verbalize Understanding, 3- ImproveStrength/[place] 1=Demonstrate adherence to instructed precautions during ADL tasks. 2=Patient will verbalize/demonstrate understanding of assistive devices/modific ations for ADL. 3=Patient will improve strength/tolerance for activity to enable patient to perform ADL's. OT Education/Plan Problem List/Assessment Assessment: Decreased Activ Tolerance, Impaired I ADL's, Impaired Self-Care Skills Discharge Recommendations Plan/Recommendations: Continue POC Therapy Discharge Recommendati: Home & Family, Post Acute OT Treatment Plan/Plan of Care Treatment,Training & Education: Yes Patient would benefit from OT for education, treatment and training to promote independence in ADL's, mobility, safety and/or upper extremity function for ADL's. Plan of Care: ADL Retraining, Functional Mobility, Group Exercise/Act as Ind, UE Funct Exercise/Act Treatment Duration: Feb 19, 2020 Frequency: At least 5 of 7 days/Wk (IRF) Estimated Hrs Per Day: Other (Covid waiver) Agreement: Yes Rehab Potential: Fair Time/GCodes Start Time: 09:00 Stop Time: :00 Total Time Billed (hr/min): 45 Billed Treatment Time 1381-7757 1, FA x 10minutes 1506-9553 1, ADL x 35minutes REGGIE GARCIA OT February 12, 2020 11:09
--- NOTE | 2020-02-12 11:32 | Progress Note - Surgery ---
Subjective Time Seen by a Provider: 11:22 Subjective/Events-last exam Pt seen and examined, states no changes and thinks foot feels good. "I was able to walk on it". Review of Systems General: Fatigue Pulmonary: No Dyspnea, No Cough Gastrointestinal: No: Nausea, Vomiting, Abdominal Pain Objective Exam Vital Signs Date Time Temp Pulse Resp B/P (MAP) Pulse Ox O2 Delivery O2 Flow Rate FiO2 02/12/20 11:06 93 Nasal Cannula 2.00 02/12/20 08:10 114 117/75 (89) 02/12/20 08:00 Nasal Cannula 1.50 02/12/20 06:48 93 Nasal Cannula 2.00 02/12/20 06:44 93 Nasal Cannula 2.00 02/12/20 05:55 36.6 105 20 101/67 (78) 93 Nasal Cannula 1.50 02/12/20 02:08 90 Nasal Cannula 2.00 02/11/20 22:18 90 Nasal Cannula 2.00 02/11/20 20:30 Nasal Cannula 1.50 02/11/20 18:02 93 Nasal Cannula 2.00 02/11/20 17:22 37.6 111 18 112/68 (83) 95 Nasal Cannula 1.50 02/11/20 14:21 87 Room Air 0.00 I & O 02/12/20 07:00 Intake Total 2000 ml Output Total 875 ml Balance 1125 ml Capillary Refill : Less Than 3 Seconds General Appearance: No Apparent Distress, Cachetic HEENT: PERRL/EOMI, Moist Mucous Membranes Respiratory: Lungs Clear, No Accessory Muscle Use, No Respiratory Distress Cardiovascular: Regular Rate, Rhythm, No Murmur Peripheral Pulses: 2+ Femoral (R), 2+ Femoral (L); 1+ Dorsalis Pedis (R); 3+ Radial Pulses (R), 3+ Radial Pulses (L) Gastrointestinal: non tender, soft Extremity: No Calf Tenderness, No Pedal Edema, Other (dry gangrene bottom of all 5 toes right foot, 1-2 are the worst. No changes from previous day) Neurologic/Psychiatric: Alert, Oriented x3, Motor Weakness (all extremities due to muscle wasting) Results Lab Laboratory Tests 02/12/20 03:58: White Blood Count 21.0H, Red Blood Count 2.72L, Hemoglobin 8.5L, Hematocrit 28L, Mean Corpuscular Volume 102H, Mean Corpuscular Hemoglobin 31, Mean Corpuscular Hemoglobin Concent 31L, Red Cell Distribution Width 18.3H, Platelet Count 719H, Mean Platelet Volume 8.8, Neutrophils (%) (Auto) 75, Lymphocytes (%) (Auto) 16, Monocytes (%) (Auto) 9, Eosinophils (%) (Auto) 1, Basophils (%) (Auto) 1, Neutrophils # (Auto) 15.7H, Lymphocytes # (Auto) 3.3, Monocytes # (Auto) 1.8H, Eosinophils # (Auto) 0.1, Basophils # (Auto) 0.1, Neutrophils % (Manual) 56, Lymphocytes % (Manual) 19, Monocytes % (Manual) 9, Eosinophils % (Manual) 1, Band Neutrophils 7, Atypical Lymphocytes 8, Anisocytosis MODERATE, Macrocytosis SLIGHT, Sodium Level 141, Potassium Level 4.2, Chloride Level 105, Carbon Dioxide Level 28, Anion Gap 8, Blood Urea Nitrogen 26H, Creatinine 0.53L, Estimat Glomerular Filtration Rate > 60, BUN/Creatinine Ratio 49, Glucose Level 96, Calcium Level 8.4L, Corrected Calcium 9.4, Total Bilirubin < 0.1L, Aspartate Amino Transf (AST/SGOT) 19, Alanine Aminotransferase (ALT/SGPT) 29, Alkaline Phosphatase 77, Total Protein 6.0L, Albumin 2.8L Assessment/Plan Assessment/Plan Assessment/Plan Chronic Right Lower extremity Ischemia Chronic Respiratory Failure - improved Hx of Afib - tachy but regular today Plan to continue to allow the toes to demarcate, before deciding what intervention will be needed. We may be able to just remove 1-2 toes, as long as there is no wet gangrene or osteomyelitis then there would be the possibility of metatarsal amputation or even BKA. Will try to keep his pain controlled and monitor his foot. May have Podiatry come in to see if just shaving off necrotic areas and saving toes is feasible. Clinical Quality Measures DVT/VTE Risk/Contraindication: Risk Factor Score Per Nursin RFS Level Per Nursing on Admit: 4+=Very High CANDI MIJARES DO February 12, 2020 11:32
--- NOTE | 2020-02-12 13:53 | Physical Therapy Daily Note ---
PT Daily Note-Current Subjective Patient sitting EOB pre tx, agrees to PT, still has 10/10 pain in right leg. Appearance Patient sitting EOB post tx with nurse call, phone, tray, all needs met. Mental Status Patient Orientation: Person, Place, Situation Attachments: Oxygen Transfers SCALE: Activities may be completed with or without assistive devices. 8-Ykqoppwbmk-xbqgkgm completes the activity by him/herself with no assistance from a helper. 5-Set-up or Clean-up Assistance-helper sets up or cleans up; patient completes activity. [place] assists only prior to or following the activity. 4-Supervision or Touching Assistance-helper provides verbal cues and/or touching/steadying and/or contact guard assistance as patient completes activity. Assistance may be provided throughout the activity or intermittently. 3-Partial/Moderate Assistance-helper does LESS THAN HALF the effort. [place] lifts, holds or supports trunk or limbs, but provides less than half the effort. 2-Substantial/Maximal Assistance-helper does MORE THAN HALF the effort. [place] lifts or holds trunk or limbs and provides more than half the effort. 3-Fktoxatfn-xbelvh does ALL the effort. Patient does none of the effort to complete the activity. Or, the assistance of 2 or more helpers is required for the patient to complete the activity. If activity was not attempted, code reason: 7-Patient Refused. 9-Not Applicable-not attempted and the patient did not perform the activity before the current illness, exacerbation or injury. 10-Not Attempted due to Environmental Limitations-(lack of equipment, weather restraints, etc.). 88-Not Attempted due to Medical Conditions or Safety Concerns. Sit to Stand (QC): 4 Chair/Nqr-jy-Pcukj Xfer(QC): 4 SBA Weight Bearing Right Lower Extremity: Right Weight Bearing/Tolerated Left Lower Extremity: Left Weight Bearing/Tolerated Gait Training Distance: 120'x2 Walk 10 feet (QC): 4 Walk 50 ft with 2 Turns(QC): 4 Gait Persons Needed: 1 Gait Assistive Device: FWW slow but steady ambulation Exercises NuStep Minutes: 10 NuStep Workload: 4 Treatments transfers, ambulation, functional strengthening Assessment Current Status: Fair Progress improved motivation and performance this afternoon PT Short Term Goals Short Term Goals Time Frame: February 12, 2020 Roll Left & Right: 6 Sit to lyin Lying to sitting on side of be: 6 Sit to stand: 4 Chair/acd-zi-ffelw transfer: 4 Walk 10 feet: 4 Walk 50 feet with two turns: 4 PT Lens Grinding Machine Operator Goals Lens Grinding Machine Operator Goals PT Lens Grinding Machine Operator Goals Time Frame: Feb 26, 2020 Roll Left & Right (QC): 6 Sit to Lying (QC): 6 Lying-Sitting on Side/Bed(QC): 6 Sit to Stand (QC): 5 Chair/Hkw-ni-Htict Xfer(QC): 5 Toilet Transfer (QC): 5 Car Transfer (QC): 5 Does the Patient Walk: Yes Walk 10 feet (QC): 5 Walk 50ft with 2 Turns (QC): 5 Walk 150 ft (QC): 5 Walking 10ft on Uneven Surface: 5 1 Step (curb) (QC): 4 4 Steps (QC): 4 12 Steps (QC): 88 Picking up an Object (QC): 88 Wheel 50 feet with 2 turns (QC: 6 Wheel 150 feet: 6 PT Plan Problem List Problem List: Activity Tolerance, Functional Strength, Safety, Balance, Gait, Transfer Treatment/Plan Treatment Plan: Continue Plan of Care Treatment Plan: Education, Functional Activity [place], Functional Strength, Gait, Safety, Therapeutic Exercise, Transfers Treatment Duration: Feb 26, 2020 Frequency: tuyet melendez, 60 min per day Estimated Hrs Per Day: 1 hour per day Patient and/or Family Agrees t: Yes Safety Risks/Education Patient Education: Gait Training, Transfer Techniques, Correct Positioning, Safety Issues Teaching Recipient: Patient Teaching Methods: Demonstration, Discussion Response to Teaching: Reinforcement Needed Time/GCodes Time In: 1330 Time Out: 1400 Total Billed Treatment Time: 30 Total Billed Treatment 1 visit EX 10' GT 20' MARKO REID PT February 12, 2020 13:53
--- NOTE | 2020-02-12 14:41 | Occupational Ther Daily Note ---
OT Current Status-Daily Note Subjective No pain reported. Appearance Pt. in bed. Agrees to work with OT for UE exercises, as he is tired. Mental Status/Objective Patient Orientation: Person, Place, Time, Situation ADL-Treatment Therapy Code Descriptions/Definitions Functional [place] Measure: 0=Not Assessed/NA 4=Minimal Assistance 1=Total Assistance 5=Supervision or Setup 2=Maximal Assistance 6=Modified [place] 3=Moderate Assistance 7=Complete IndependenceSCALE: Activities may be completed with or without assistive devices. 5-Gqejybmgox-twsyadw completes the activity by him/herself with no assistance from a helper. 5-Set-up or Clean-up Assistance-helper sets up or cleans up; patient completes activity. [place] assists only prior to or following the activity. 4-Supervision or Touching Assistance-helper provides verbal cues and/or touching/steadying and/or contact guard assistance as patient completes activity. Assistance may be provided throughout the activity or intermittently. 3-Partial/Moderate Assistance-helper does LESS THAN HALF the effort. [place] lifts, holds or supports trunk or limbs, but provides less than half the effort. 2-Substantial/Maximal Assistance-helper does MORE THAN HALF the effort. [place] lifts or holds trunk or limbs and provides more than half the effort. 9-Fzcrdhqwq-ehzale does ALL the effort. Patient does none of the effort to complete the activity. Or, the assistance of 2 or more helpers is required for the patient to complete the activity. If activity was not attempted, code reason: 7-Patient Refused. 9-Not Applicable-not attempted and the patient did not perform the activity before the current illness, exacerbation or injury. 10-Not Attempted due to Environmental Limitations-(lack of equipment, weather restraints, etc.). 88-Not Attempted due to Medical Conditions or Safety Concerns. Other Treatment Pt. in bed. Agrees to work with OT for UE exercises. Pt. issued red theraband. Pt. completes 3 bilateral UE exercises x 15 reps each in all planes, for increased strength and endurance. Pt. requires multiple rest breaks. Pt. reports that he is tired and requests to rest in bed. All needs met. Education OT Patient Education: Correct positioning, Exercise program, Modified ADL techniques, Progress toward Goal/Update tx plan, Purpose of tx/functional activities, Reviewed precautions, Rehab process, Transfer techniques Teaching Recipient: Patient Teaching Methods: Demonstration, Discussion Response to Teaching: Verbalize Understanding, Return Demonstration OT Short Term Goals Short Term Goals Time Frame: February 12, 2020 Eatin Oral hygiene: 4 Toileting hygiene: 4 Shower/bathe self: 4 Upper body dressin Lower body dressin Putting on/taking off footwear: 5 OT [facility]ci Goals Ruby On Rails Engineer Goals Time Frame: Feb 19, 2020 Eating (QC): 6 Oral Hygiene (QC): 6 Toileting Hygiene (QC): 6 Shower/Bathe Self (QC): 5 Upper Body Dressing (QC): 6 Lower Body Dressing (QC): 6 On/Off Footwear (QC): 6 Additional Goals: 1-Demonstrate ADL Tasks, 2-Verbalize Understanding, 3- ImproveStrength/[place] 1=Demonstrate adherence to instructed precautions during ADL tasks. 2=Patient will verbalize/demonstrate understanding of assistive device s/modifications for ADL. 3=Patient will improve strength/tolerance for activity to enable patient to perform ADL's. OT Education/Plan Problem List/Assessment Assessment: Decreased Activ Tolerance, Decreased UE Strength, Dependent Transfers, Impaired Funct Balance, Impaired I ADL's, Impaired Self-Care Skills Discharge Recommendations Plan/Recommendations: Continue POC Therapy Discharge Recommendati: Home & Family, Post Acute OT Treatment Plan/Plan of Care Treatment,Training & Education: Yes Patient would benefit from OT for education, treatment and training to promote independence in ADL's, mobility, safety and/or upper extremity function for ADL's. Plan of Care: ADL Retraining, Functional Mobility, Group Exercise/Act as Ind, UE Funct Exercise/Act Treatment Duration: Feb 19, 2020 Frequency: At least 5 of 7 days/Wk (IRF) Estimated Hrs Per Day: Other (Covid waiver) Agreement: Yes Rehab Potential: Fair Time/GCodes Start Time: 11:40 Stop Time: 11:55 Total Time Billed (hr/min): 15 Billed Treatment Time 1, Ex JOSEREGGIE OT February 12, 2020 14:41
--- NOTE | 2020-02-12 14:47 | Occupational Ther Daily Note ---
OT Current Status-Daily Note Subjective Pt. reports that his hands and arms hurt and feel cold with any UE exercises. Appearance Pt. in bed. Agrees to work with OT. Mental Status/Objective Patient Orientation: Person, Place, Time, Situation ADL-Treatment Therapy Code Descriptions/Definitions Functional [place] Measure: 0=Not Assessed/NA 4=Minimal Assistance 1=Total Assistance 5=Supervision or Setup 2=Maximal Assistance 6=Modified [place] 3=Moderate Assistance 7=Complete IndependenceSCALE: Activities may be completed with or without assistive devices. 1-Susmqnrwiw-xkrlcmr completes the activity by him/herself with no assistance from a helper. 5-Set-up or Clean-up Assistance-helper sets up or cleans up; patient completes activity. [place] assists only prior to or following the activity. 4-Supervision or Touching Assistance-helper provides verbal cues and/or touching/steadying and/or contact guard assistance as patient completes activity. Assistance may be provided throughout the activity or intermittently. 3-Partial/Moderate Assistance-helper does LESS THAN HALF the effort. [place] lifts, holds or supports trunk or limbs, but provides less than half the effort. 2-Substantial/Maximal Assistance-helper does MORE THAN HALF the effort. [place] lifts or holds trunk or limbs and provides more than half the effort. 0-Fqkkcytqx-zgnfac does ALL the effort. Patient does none of the effort to complete the activity. Or, the assistance of 2 or more helpers is required for the patient to complete the activity. If activity was not attempted, code reason: 7-Patient Refused. 9-Not Applicable-not attempted and the patient did not perform the activity before the current illness, exacerbation or injury. 10-Not Attempted due to Environmental Limitations-(lack of equipment, weather restraints, etc.). 88-Not Attempted due to Medical Conditions or Safety Concerns. Other Treatment Pt. transferred supine-sit with SBA and increased time. Pt. rested and stood to wheelchair with CGA. Pt. taken to therapy gym and completed 5 minutes on arm bike. Multiple rest breaks needed before pt. able to complete full 5 minutes for endurance and strength. Pt. self propelled back to room, and worked on increased mobility with propelling further past room. Once in room, pt. transfers self to bed with CGA. All needs met. Education OT Patient Education: Correct positioning, Modified ADL techniques, Progress toward Goal/Update tx plan, Purpose of tx/functional activities, Reviewed precautions, Rehab process, Transfer techniques Teaching Recipient: Patient Teaching Methods: Demonstration, Discussion Response to Teaching: Verbalize Understanding, Return Demonstration OT Short Term Goals Short Term Goals Time Frame: February 12, 2020 Eatin Oral hygiene: 4 Toileting hygiene: 4 Shower/bathe self: 4 Upper body dressin Lower body dressin Putting on/taking off footwear: 5 OT Certified Hyperbaric Technician Goals Certified Hyperbaric Technician Goals Time Frame: Feb 19, 2020 Eating (QC): 6 Oral Hygiene (QC): 6 Toileting Hygiene (QC): 6 Shower/Bathe Self (QC): 5 Upper Body Dressing (QC): 6 Lower Body Dressing (QC): 6 On/Off Footwear (QC): 6 Additional Goals: 1-Demonstrate ADL Tasks, 2-Verbalize Understanding, 3-ImproveStrength/[place] 1=Demonstrate adherence to instructed precautions during ADL tasks. 2=Patient will verbalize/demonstrate understanding of assistive devices/modifications for ADL. 3=Patient will improve strength/tolerance for activity to enable patient to perform ADL's. OT Education/Plan Problem List/Assessment Assessment: Decreased Activ Tolerance, Decreased UE Strength, Dependent Transfers, Impaired Bed Mobility, Impaired Funct Balance, Impaired I ADL's, Impaired Self-Care Skills Discharge Recommendations Plan/Recommendations: Continue POC Therapy Discharge Recommendati: Home & Family, Post Acute OT Treatment Plan/Plan of Care Treatment,Training & Education: Yes Patient would benefit from OT for education, treatment and training to promote independence in ADL's, mobility, safety and/or upper extremity function for ADL's. Plan of Care: ADL Retraining, Functional Mobility, Group Exercise/Act as Ind, UE Funct Exercise/Act Treatment Duration: Feb 19, 2020 Frequency: At least 5 of 7 days/Wk (IRF) Estimated Hrs Per Day: Other (Covid waiver) Agreement: Yes Rehab Potential: Fair Time/GCodes Start Time: 14:00 Stop Time: 14:30 Total Time Billed (hr/min): 30 Billed Treatment Time 1, Ex x 15minutes, FA x 15minutes REGGIE GARCIA OT February 12, 2020 14:47
[2020-02-12 16:00] VITALS: BP 114/73
[2020-02-12] MEDS: RIVAROXABAN 20 MG TABLET (XARELTO) PO SCH (16:18)
[2020-02-13] MEDS: RT-ALBUTEROL/IPRATROPIUM 3 ML (DUONEB) VIAL INH SCH ×6 (01:53→23:06)
[2020-02-13 05:44] VITALS: BP 113/71
[2020-02-13] MEDS: predniSONE 20 MG TAB PO SCH (05:54)
[2020-02-13] MEDS: CATHETER FLUSH 10 ML SYR IV SCH ×3 (05:54→21:16)
[2020-02-13] MEDS: MULTIVIT W/MINERALS TAB (THERAGRAN M) PO SCH (05:54)
--- NOTE | 2020-02-13 06:15 | PM&R Progress Note ---
Subjective HPI/CC On Admission Date Seen by Provider: February 13, 2020 Time Seen by Provider: 10:00 Subjective/Events-last exam Neurontin 100mg TID is helping his pain Dr. Watson saw him today again and had no changes in plan CT of the chest was completed because the WBC continues to increase to 21 now Lives with his brother and DC plan is for Sunday but I did speak to him about a fpc placement in case he is experiencing more somatic complaints as he is now Platelet count is 719 showing that he has significant continued medical issues Needs PCP assignment Labs obtained PCT 0.14 and steroids were stopped 1L/min and weaning down CT chest repeat in 8 weeks Checked meds and labs Reviewed therapy notes Conferred with hardwood floor installer of Systems General: Fatigue Pulmonary: Dyspnea Musculoskeletal: leg pain Objective Exam Vital Signs Vital Signs Date Time Temp Pulse Resp B/P (MAP) Pulse Ox O2 Delivery O2 Flow Rate FiO2 02/13/20 18:43 93 Nasal Cannula 1.00 02/13/20 17:10 36.8 110 20 113/68 (83) Capillary Refill : Less Than 3 Seconds General Appearance: No Apparent Distress, WD/WN, Anxious, Chronically ill, Cachetic HEENT: PERRL/EOMI, Normal ENT Inspection, Pharynx Normal Neck: Full Range of Motion, Normal Inspection, Non Tender, Supple, Carotid Bruit Respiratory: Chest Non Tender, Lungs Clear, No Accessory Muscle Use, No Respiratory Distress, Decreased Breath Sounds Cardiovascular: Regular Rate, Rhythm, No Edema, No Gallop, No JVD, No Murmur, Normal Peripheral Pulses Gastrointestinal: Normal Bowel Sounds, No Organomegaly, No Pulsatile Mass, Non Tender, Soft Back: Normal Inspection, No CVA Tenderness, No Vertebral Tenderness Extremity: Normal Capillary Refill, Normal Inspection, Normal Range of Motion, Non Tender, No Calf Tenderness, No Pedal Edema Neurologic/Psychiatric: Alert, Oriented x3, No Motor/Sensory Deficits, Normal Mood/Affect, Motor Weakness (all extremities due to muscle wasting) Skin: Normal Color, Warm/Dry Lymphatic: No Adenopathy Results/Procedures Lab Laboratory Tests 02/13/20 06:57 Patient resulted labs reviewed. FIM Transfers Therapy Code Descriptions/Definitions Functional [place] Measure: 0=Not Assessed/NA 4=Minimal Assistance 1=Total Assistance 5=Supervision or Setup 2=Maximal Assistance 6=Modified [place] 3=Moderate Assistance 7=Complete IndependenceSCALE: Activities may be completed with or without assistive devices. 7-Lnlpsrifqm-hmhzbjn completes the activity by him/herself with no assistance from a helper. 5-Set-up or Clean-up Assistance-helper sets up or cleans up; patient completes activity. [place] assists only prior to or following the activity. 4-Supervision or Touching Assistance-helper provides verbal cues and/or touching/steadying and/or contact guard assistance as patient completes activity. Assistance may be provided throughout the activity or intermittently. 3-Partial/Moderate Assistance-helper does LESS THAN HALF the effort. [place] lifts, holds or supports trunk or limbs, but provides less than half the effort. 2-Substantial/Maximal Assistance-helper does MORE THAN HALF the effort. [place] lifts or holds trunk or limbs and provides more than half the effort. 8-Mzmzslmrr-bwnpvd does ALL the effort. Patient does none of the effort to complete the activity. Or, the assistance of 2 or more helpers is required for the patient to complete the activity. If activity was not attempted, code reason: 7-Patient Refused. 9-Not Applicable-not attempted and the patient did not perform the activity before the current illness, exacerbation or injury. 10-Not Attempted due to Environmental Limitations-(lack of equipment, weather restraints, etc.). 88-Not Attempted due to Medical Conditions or Safety Concerns. Roll Left to Right (QC): 4 Sit to Lying (QC): 6 Sit to Stand (QC): 4 Chair/Ivp-wi-Ozlyj Xfer(QC): 4 Car Transfer (QC): 4 Gait Training Does the Patient Walk?: Yes Distance: 120'x2 Walk 10 feet (QC): 4 Walk 50 ft with 2 Turns(QC): 4 Walk 150 ft (QC): 88 Walking 10ft/uneven surface-QC: 4 Gait Persons Needed: 1 Gait Assistive Device: FWW Wheelchair Training Does the Pt Use a Wheelchair?: Yes Distance: 120'x2 Wheel 50 ft with 2 turns (QC): 4 Wheel 150 ft (QC): 4 Type of Wheelchair: Manual Stair Training 1 Step (curb) (QC): 88 4 Steps (QC): 88 12 Steps (QC): 88 Balance Picking up an Object (QC): 88 ADL-Treatment Eating (QC): 6 Oral Hygiene (QC): 7 Shower/Bathe Self (QC): 4 (CGA in stance for balance.) Upper Body Dressing (QC): 4 (SBA to doff/don shirt.) Lower Body Dressing (QC): 4 (CGA in stance to don pants over hips.) On/Off Footwear (QC): 4 (SBA. Pt. holds out foot and asks OT to take socks off. Pt. encouraged to attempt for himself. Pt. able to do this.) Toileting Hygiene (QC): 10 Assessment/Plan Assessment and Plan Assess & Plan/Chief Complaint Assessment: Myopathy PNA facility acquired AECOPD O2 dependent AF CAD PVD Cachexia Lung mass s/p VDRF Right toes dry gangrene consulted Dr Wright Elevated wbc count rechecking CT chest Bilateral leg weakness MRI reveals DJD of spine Somatic complaints Plan: IRF protocol Monitor BP IV Abx completed Fall risk O2 titration Pain meds CT chest with labs reviewed (1) Myopathy (2) Acute occlusion of artery of lower extremity due to thromboembolism Status: Acute (3) Acute respiratory failure with hypoxia Status: Acute (4) Atrial fibrillation with rapid ventricular response Status: Acute (5) Severe protein-calorie malnutrition Status: Acute (6) Pneumonia Status: Acute (7) Debility Status: Acute (8) Iron deficiency anemia Status: Chronic (9) Lung mass Status: Acute (10) Tobacco abuse Status: Chronic (11) Folic acid deficiency Status: Chronic (12) Anemia of chronic disease Status: Chronic (13) COPD (chronic obstructive pulmonary disease) Status: Chronic LOI CORTEZ DO February 13, 2020 06:15
[2020-02-13] MEDS: ADVAIR HFA 115/21 MCG INHALER 8 GM IH SCH ×2 (06:37→18:42)
--- NOTE | 2020-02-13 06:37 | Pulmonary Progress Note ---
Subjective Time Seen by a Provider: 06:32 Subjective/Events-last exam Pt feels improved. Sepsis Event Evaluation Height, Weight, BMI Height: '" Weight: lbs. oz. kg; 15.59 BMI Method: Exam Exam Vital Signs Date Time Temp Pulse Resp B/P (MAP) Pulse Ox O2 Delivery O2 Flow Rate FiO2 02/13/20 05:44 36.4 101 18 113/71 (85) 94 Nasal Cannula 1.00 02/13/20 04:22 95 Nasal Cannula 1.00 02/13/20 01:53 91 Nasal Cannula 1.00 02/12/20 21:34 93 Nasal Cannula 1.00 02/12/20 20:20 Nasal Cannula 1.50 02/12/20 17:53 91 Nasal Cannula 1.00 02/12/20 16:00 36.8 106 18 114/73 (87) 94 Nasal Cannula 1.00 02/12/20 14:49 Nasal Cannula 0.50 02/12/20 14:48 92 Nasal Cannula 1.00 02/12/20 11:06 93 Nasal Cannula 2.00 02/12/20 08:10 114 117/75 (89) 02/12/20 08:00 Nasal Cannula 1.50 02/12/20 06:48 93 Nasal Cannula 2.00 02/12/20 06:44 93 Nasal Cannula 2.00 I & O 02/13/20 07:00 Intake Total 1840 ml Output Total 1575 ml Balance 265 ml Height & Weight Height: '" Weight: lbs. oz. kg; 15.59 BMI Method: General Appearance: No Apparent Distress, WD/WN, Anxious, Chronically ill, Cachetic HEENT: PERRL/EOMI, Normal ENT Inspection, Pharynx Normal Neck: Full Range of Motion, Normal Inspection, Non Tender, Supple, Carotid Bruit Respiratory: Chest Non Tender, Lungs Clear, No Accessory Muscle Use, No Respiratory Distress, Decreased Breath Sounds Cardiovascular: Regular Rate, Rhythm, No Edema, No Gallop, No JVD, No Murmur, Normal Peripheral Pulses Capillary Refill: Less Than 3 Seconds Peripheral Pulses: 2+ Femoral (R), 2+ Femoral (L); 1+ Dorsalis Pedis (R); 3+ Radial Pulses (R), 3+ Radial Pulses (L) Gastrointestinal: non tender, soft Extremity: Normal Capillary Refill, Normal Inspection, Normal Range of Motion, Non Tender, No Calf Tenderness, No Pedal Edema Neurologic/Psychiatric: Alert, Oriented x3, No Motor/Sensory Deficits, Normal Mood/Affect, Motor Weakness (all extremities due to muscle wasting) Skin: Normal Color, Warm/Dry Lymphatic: No Adenopathy Results Lab Laboratory Tests 02/12/20 03:58 Assessment/Plan Assessment/Plan PNA -- -Pt feels better today - Cefepime -- has been d/c'd -Repeat CT scan -reviewed and shows improving PNA. -Pt will still need repeat CT of chest 8wks after discharge to ensure complete resolution. - SVNS Leukocytosis - Prednisone-- D/C -Repeat PCT -May need to restart Abx Acute occlusion of artery of right lower extremity s/p abdominal aorta gram with TPA via cath anemia -monitor - protonix Tobacco use with probable severe COPD -Out pt testing JENI DENISE DO February 13, 2020 06:37
[2020-02-13 07:03] LABS: BASOPHILS # (AUTO) 0.1 10^3/uL (0.0-0.1); BASOPHILS % (AUTO) 1 % (0-10); EOSINOPHILS # (AUTO) 0.1 10^3/uL (0.0-0.3); EOSINOPHILS % (AUTO) 1 % (0-10); HEMATOCRIT 32 % (40-54); HEMOGLOBIN 9.6 G/DL (13.3-17.7); LYMPHOCYTES # (AUTO) 2.8 X 10^3 (1.0-4.0); LYMPHOCYTES % (AUTO) 13 % (12-44); MEAN CORPUSCULAR HEMOGLOBIN 31 PG (25-34); MEAN CORPUSCULAR HGB CONC 30 G/DL (32-36); MEAN CORPUSCULAR VOLUME 103 FL (80-99); MEAN PLATELET VOLUME 8.3 FL (7.4-10.4); MONOCYTES # (AUTO) 1.6 X 10^3 (0.0-1.0); MONOCYTES % (AUTO) 8 % (0-12); NEUTROPHILS # (AUTO) 16.5 X 10^3 (1.8-7.8); NEUTROPHILS % (AUTO) 78 % (42-75); PLATELET COUNT 723 10^3/uL (130-400); RED CELL DISTRIBUTION WIDTH 18.5 % (10.0-14.5); WHITE BLOOD COUNT 21.2 10^3/uL (4.3-11.0)
[2020-02-13 07:31] LABS: CHLORIDE 101 MMOL/L (98-107); POTASSIUM 3.9 MMOL/L (3.6-5.0); SODIUM 139 MMOL/L (135-145)
[2020-02-13 07:32] LABS: CALCIUM 8.8 MG/DL (8.5-10.1)
[2020-02-13 07:33] LABS: GLUCOSE 118 MG/DL (70-105)
[2020-02-13 07:34] LABS: CARBON DIOXIDE 27 MMOL/L (21-32)
[2020-02-13 07:37] LABS: BUN/CREATININE RATIO 35; CREATININE SERUM 0.54 MG/DL (0.60-1.30); GFR ESTIMATED > 60
[2020-02-13] MEDS: SENNA W/DOCUSATE (SENOKOT S) TABLET PO SCH ×2 (08:04→21:14)
[2020-02-13] MEDS: FERROUS SULF 325 MG (IRON) TAB PO SCH ×2 (08:04→18:09)
[2020-02-13] MEDS: FOLIC ACID 1 MG TAB PO SCH (08:04)
[2020-02-13] MEDS: risperiDONE 0.25 MG (RisperDAL) TAB PO SCH ×2 (08:04→21:14)
[2020-02-13] MEDS: polyethylene glycoL POWDER 17 GM (MIRALAX) PACK PO SCH ×2 (08:04→21:16)
[2020-02-13] MEDS: PANTOPRAZOLE 40 MG (PROTONIX) TAB PO SCH (08:04)
[2020-02-13] MEDS: guaiFENesin (MUCINEX) 600 MG TAB PO SCH ×2 (08:04→21:14)
[2020-02-13] MEDS: GABAPENTIN 100 MG (NEURONTIN) CAP PO SCH ×3 (08:04→21:14)
[2020-02-13] MEDS: DIGOXIN 0.25 MG (LANOXIN) TAB PO SCH (08:04)
[2020-02-13] MEDS: DOCUSATE SODIUM 100 MG (COLACE) CAP PO SCH ×2 (08:04→21:14)
[2020-02-13 08:06] VITALS: BP 116/62
--- NOTE | 2020-02-13 09:36 | Occupational Ther Daily Note ---
OT Current Status-Daily Note Subjective Pt in bed, states he did not sleep well last night and is tired this morning. Agrees to therapy. Pt reports 9/10 pain in LE. RN provided pain medication. ADL-Treatment Pt supine to sit using bed rails. Declined bathing this morning. Sit to stand and transfer to chair with supervision using FWW. Pt completed grooming tasks while seated in chair. Pt washed face and brushed teeth with set up and increased time. Declined to change clothes this morning. Therapy Code Descriptions/Definitions Functional [place] Measure: 0=Not Assessed/NA 4=Minimal Assistance 1=Total Assistance 5=Supervision or Setup 2=Maximal Assistance 6=Modified [place] 3=Moderate Assistance 7=Complete IndependenceSCALE: Activities may be completed with or without assistive devices. 9-Sjfrppwtjd-cskbpqn completes the activity by him/herself with no assistance from a helper. 5-Set-up or Clean-up Assistance-helper sets up or cleans up; patient completes activity. [place] assists only prior to or following the activity. 4-Supervision or Touching Assistance-helper provides verbal cues and/or touc danny/steadying and/or contact guard assistance as patient completes activity. Assistance may be provided throughout the activity or intermittently. 3-Partial/Moderate Assistance-helper does LESS THAN HALF the effort. [place] lifts, holds or supports trunk or limbs, but provides less than half the effort. 2-Substantial/Maximal Assistance-helper does MORE THAN HALF the effort. [place] lifts or holds trunk or limbs and provides more than half the effort. 3-Xlqiokkgt-rtqwrc does ALL the effort. Patient does none of the effort to complete the activity. Or, the assistance of 2 or more helpers is required for the patient to complete the activity. If activity was not attempted, code reason: 7-Patient Refused. 9-Not Applicable-not attempted and the patient did not perform the activity before the current illness, exacerbation or injury. 10-Not Attempted due to Environmental Limitations-(lack of equipment, weather restraints, etc.). 88-Not Attempted due to Medical Conditions or Safety Concerns. Oral Hygiene (QC): 5 Other Treatment Pt completed bilateral UE activity while seated in chair. Pt performed four bilateral UE exercises x10 reps with moderate resistance (red) theraband to promote increased strength and activity tolerance needed for ADLs and transfers. Pt fatigues quickly and takes frequent rest breaks during exercises. Skilled cues for proper exercise technique. Putty activity with bilateral hand to increase strength and coordination/manipulation skills. Pt able to remove small beads from moderate resistance putty with increased time. Graded clothespins task with bilateral hands to increase facilities engineer/pinch strength for functional tasks. Pt completed task with increased time. Pt transferred back to bed with supervisi on. Sit to supine without assist. Pt resting in bed with needs met after session. OT Short Term Goals Short Term Goals Time Frame: February 12, 2020 Eatin Oral hygiene: 4 Toileting hygiene: 4 Shower/bathe self: 4 Upper body dressin Lower body dressin Putting on/taking off footwear: 5 OT Substation Supervisor Goals Long-Term Goals Time Frame: Feb 19, 2020 Eating (QC): 6 Oral Hygiene (QC): 6 Toileting Hygiene (QC): 6 Shower/Bathe Self (QC): 5 Upper Body Dressing (QC): 6 Lower Body Dressing (QC): 6 On/Off Footwear (QC): 6 Additional Goals: 1-Demonstrate ADL Tasks, 2-Verbalize Understanding, 3-ImproveStrength/[place] 1=Demonstrate adherence to instructed precautions during ADL tasks. 2=Patient will verbalize/demonstrate understanding of assistive devices/modifications for ADL. 3=Patient will improve strength/tolerance for activity to enable patient to perform ADL's. OT Education/Plan Discharge Recommendations Plan/Recommendations: Continue POC Treatment Plan/Plan of Care Patient would benefit from OT for education, treatment and training to promote independence in ADL's, mobility, safety and/or upper extremity function for ADL's. Plan of Care: ADL Retraining, Functional Mobility, Group Exercise/Act as Ind, UE Funct Exercise/Act Treatment Duration: Feb 19, 2020 Frequency: At least 5 of 7 days/Wk (IRF) Estimated Hrs Per Day: Other (Covid waiver) Agreement: Yes Rehab Potential: Fair Time/GCodes Start Time: 08:15 Stop Time: 09:10 Total Time Billed (hr/min): 55 Billed Treatment Time 1 visit, ADL(15minutes), EXx3(40minutes) ELEN BLACKWOOD OT February 13, 2020 09:35
--- NOTE | 2020-02-13 09:45 | NUR ---
DR. DENISE NOTIFIED OF PROCALCITONIN- 0.14 AND WBC 21.2.
--- NOTE | 2020-02-13 10:40 | Physical Therapy Daily Note ---
PT Daily Note-Current Subjective Pt. c/o pain n RLE hip to foot 9/10 pain. Pt. is somewhat diaphoretic, on O2 at 1 L and states he had an incident of SOB and needed to be put back on O2 earlier today. States he was initially on 4L O2. Pt. states he would love nothing more than to be on his feet so he can head home with his brother but he just feels too awful to get on his feet or be up in the chair right now. Pt. does agree to LLE exercises and try some elevated positioning of RLE for pain control. Pt. states he will try to walk or get on his feet with this WOMEN'S SOCCER COACH later if he can get pain under control. Pain Numeric Pain Scale: 9 Location: Right Location Body Site: Foot (to groin) Pain Description: Stabbing Appearance diaphoretic, Billy Goldstein pain scale 8/10 presentation. Nursing consulted today and states pt. has had all he can have for pain. R foot observed by this WOMEN'S SOCCER COACH today, Great toe plantar surface near all black in color and as is distal phalanx of 2nd toe. Other toes and plantar aspect involved as well. Surgeon has been consulted and is working on establishing "demarcation" Mental Status Patient Orientation: Normal For Age Attachments: Oxygen (1L) Transfers SCALE: Activities may be completed with or without assistive devices. 3-Shttujrqxr-wmreszi completes the activity by him/herself with no assistance from a helper. 5-Set-up or Clean-up Assistance-helper sets up or cleans up; patient completes activity. [place] assists only prior to or following the activity. 4-Supervision or Touching Assistance-helper provides verbal cues and/or touching/steadying and/or contact guard assistance as patient completes activity. Assistance may be provided throughout the activity or intermittently. 3-Partial/Moderate Assistance-helper does LESS THAN HALF the effort. [place] lifts, holds or supports trunk or limbs, but provides less than half the effort. 2-Substantial/Maximal Assistance-helper does MORE THAN HALF the effort. [place] lifts or holds trunk or limbs and provides more than half the effort. 7-Zemztmmwy-qlaerb does ALL the effort. Patient does none of the effort to complete the activity. Or, the assistance of 2 or more helpers is required for the patient to complete the activity. If activity was not attempted, code reason: 7-Patient Refused. 9-Not Applicable-not attempted and the patient did not perform the activity before the current illness, exacerbation or injury. 10-Not Attempted due to Environmental Limitations-(lack of equipment, weather restraints, etc.). 88-Not Attempted due to Medical Conditions or Safety Concerns. pt. rolled left and right and pushes self up in bed indep Weight Bearing Right Lower Extremity: Right Weight Bearing/Tolerated Left Lower Extremity: Left Weight Bearing/Tolerated Gait Training refuses sitting edge of bed or up in recliner or gait secondary to pain Exercises Supine Ex: Bridging (using left only), Ankle pumps, Quad Set, Rolling, Glut se ts, Heel Slides (left only), Short Arc Quads, Scooting, Straight leg raise (left only), Hip abd/add (left only) Supine Reps: 15 Treatments LE therex and positioning of RLE in extreme elevation, head down as tolerated secondary to some SOB Assessment Current Status: Poor Progress BP104/68, HR 106, O2 sats on 1 L O2 94%, resp 25 PT Short Term Goals Short Term Goals Time Frame: February 12, 2020 Roll Left & Right: 6 Sit to lyin Lying to sitting on side of be: 6 Sit to stand: 4 Chair/yvd-ev-yomku transfer: 4 Walk 10 feet: 4 Walk 50 feet with two turns: 4 PT Intermediate Goals Intermediate Goals PT Intermediate Goals Time Frame: Feb 26, 2020 Roll Left & Right (QC): 6 Sit to Lying (QC): 6 Lying-Sitting on Side/Bed(QC): 6 Sit to Stand (QC): 5 Chair/Xrx-yz-Vzxoi Xfer(QC): 5 Toilet Transfer (QC): 5 Car Transfer (QC): 5 Does the Patient Walk: Yes Walk 10 feet (QC): 5 Walk 50ft with 2 Turns (QC): 5 Walk 150 ft (QC): 5 Walking 10ft on Uneven Surface: 5 1 Step (curb) (QC): 4 4 Steps (QC): 4 12 Steps (QC): 88 Picking up an Object (QC): 88 Wheel 50 feet with 2 turns (QC: 6 Wheel 150 feet: 6 PT Plan Treatment/Plan Treatment Plan: Continue Plan of Care Treatment Plan: Education, Functional Activity [place], Functional Strength, Gait, Safety, Therapeutic Exercise, Transfers Treatment Duration: Feb 26, 2020 Frequency: tuyet melendez, 60 min per day Estimated Hrs Per Day: 1 hour per day Patient and/or Family Agrees t: Yes Safety Risks/Education Patient Education: Transfer Techniques (rolling and scooting only), Correct Positioning, Disease Process Time/GCodes Time In: 945 Time Out: 1020 Total Billed Treatment Time: 35 Total Billed Treatment 1,FA15m,EX20m MELINDA MICHAEL WOMEN'S SOCCER COACH February 13, 2020 10:40
--- NOTE | 2020-02-13 10:43 | NUR ---
DR. BELLAMY TO THE FLOOR. REVIEWED EKG.
--- NOTE | 2020-02-13 12:19 | Cardiology Progress Note ---
Subjective Date Seen by Provider: February 13, 2020 Time Seen by Provider: 12:18 Subjective/Events-last exam Patient is laying down in bed, still having numbness in his right leg. No chest pain. Borderline tachycardic Review of Systems General: No Chills, No Night Sweats; Fatigue, Malaise; No Appetite, No Other HEENT: No Head Aches, No Visual Changes, No Eye Pain, No Ear Pain, No Dysphasia, No Sinus Congestion, No Post Nasal Drip, No Sore Throat, No Other Pulmonary: No Dyspnea, No Cough, No Pleuritic Chest Pain, No Other Cardiovascular: No: Chest Pain, Palpitations, Orthopnea, Paroxysmal Noc. Dyspnea, Edema, Lt Headedness, Other Objective-Cardiology Exam Last Set of Vital Signs Vital Signs 02/13/20 02/13/20 02/13/20 05:44 08:06 10:07 Temp 36.4 Pulse 110 Resp 18 B/P (MAP) 116/62 (80) Pulse Ox 92 O2 Delivery Nasal Cannula O2 Flow Rate 1.00 Capillary Refill : Less Than 3 Seconds I&O l Intake and Output 02/13/20 00:00 Intake Total 1600 ml Output Total 2000 ml Balance -400 ml Intake Oral 1600 ml Output Urine Total 2000 ml # Bowel Movements 1 General: Alert, Oriented X3, Cooperative HEENT: Atraumatic, PERRLA Neck: Supple, No JVD, No Thyromegaly Lungs: Clear to Auscultation, Normal Air Movement Heart: Regular Rate, Normal S1, Normal S2, No Murmurs Abdomen: Normal Bowel Sounds, Soft, No Tenderness, No Hepatosplenomegaly, No Masses Extremities: No Clubbing, No Cyanosis, No Edema, Normal Pulses, No Tenderness/Swelling Skin: No Rashes, No Breakdown, No Significant Lesion Neuro: Normal Gait, Normal Speech, Strength at 5/5 X4 Ext, Normal Tone, Sensation Intact Psych/Mental Status: Mental Status NL, Mood NL Results Lab Laboratory Tests 02/13/20 06:57 A/P-Cardiology Admission Diagnosis Shortness of breath Cough Chest pain Acute limb ischemia Assessment/Plan Pneumonia, improved, received cefepime, managed by primary care physician BLE numbness and pain, MRI of the lumbar spine showed some degenerative disease, there is no abdominal aneurysm. Patient c/o right leg and calf pain and numbness today Chest pain, nonspecific etiology, cardiac catheterization carried out on January 30, 2020 showing mild to moderate coronary artery disease nonobstructive disease. Chest pain is unlikely to be cardiac, Anemia, managed by primary care team, H&H is monitored, EGD done with Dr. Wright reported gastritis and hiatal hernia. Managed by primary care team Status post acute limb ischemia due to embolization probably from atrial fibrillation. Angiogram was carried out showing total occlusion with thrombus in the distal SFA, received thrombolytics and reestablished flow. Maintained on Xarelto at this time. Continue to monitor PAF with RVR on 01/24/20, continue to monitor. Left upper lobe mass, Dr. Eugene following, planning for repeat CT History of head trauma in or around 2018, was in coma for about a month. Has been on disability Tobaccoism, stopped smoking in December 2019, advised to continue to refrain Clinical Quality Measures DVT/VTE Risk/Contraindication: Risk Factor Score Per Nursin RFS Level Per Nursing on Admit: 4+=Very High THERESA BELLAMY MD February 13, 2020 12:19
--- NOTE | 2020-02-13 13:13 | NUR ---
CM/SS DISCHARGE PLANNING Visited with patient and his brother, Geo Soto, at their request. They have discussed and concluded that patient is not ready to return to a home environment under Geo's care. Patient inquired about community nursing facilities as a bridge before home. [employer] reviewed local facilities and patient requested a referral be made with [facility]. Patient is insured Medicare only, he has been hospitalized since January 10 and used 13 skilled days on SWB here before admitting to ARU. Therefore, he has only 7 days of Medicare full coverage for skilled benefits until he will have co-pay responsibility. Patient continues to have LE pain and this appears to prohibit sleep, activity, and general participation during the day. Very pleasant and cordial, narrative writer advocating for full exploration of potential pain relief measures since this will interfere with his success and positive progress. Followup Sunday on patient status as well as confirmation from [facility] about referral.
--- NOTE | 2020-02-13 13:39 | Occupational Ther Daily Note ---
OT Current Status-Daily Note Subjective Pt reports pain in right LE. RN present and provided pain medication. Mental Status/Objective Attachments: Oxygen ADL-Treatment Pt ambulating to restroom with nurse aide when therapist arrives. Pt transferred to toilet using grab bar for safety. Pt able to complete toileting hygiene and clothing management, but requires min assist to stand from toilet secondary to reports of pain in right LE. Increased time required for toileting. Pt returned to bed with FWW, slow pace. Sit to supine without assist. Pt resting in bed with needs met after session. Therapy Code Descriptions/Definitions Functional [place] Measure: 0=Not Assessed/NA 4=Minimal Assistance 1=Total Assistance 5=Supervision or Setup 2=Maximal Assistance 6=Modified [place] 3=Moderate Assistance 7=Complete IndependenceSCALE: Activities may be completed with or without assistive devices. 2-Irnihipgtg-yhbgzbf completes the activity by him/herself with no assistance from a helper. 5-Set-up or Clean-up Assistance-helper sets up or cleans up; patient completes activity. [place] assists only prior to or following the activity. 4-Supervision or Touching Assistance-helper provides verbal cues and/or touching/steadying and/or contact guard assistance as patient completes activity. Assistance may be provided throughout the activity or intermittently. 3-Partial/Moderate Assistance-helper does LESS THAN HALF the effort. [place] lifts, holds or supports trunk or limbs, but provides less than half the effort. 2-Substantial/Maximal Assistance-helper does MORE THAN HALF the effort. [place] lifts or holds trunk or limbs and provides more than half the effort. 8-Hdslrqhma-bcwrdc does ALL the effort. Patient does none of the effort to complete the activity. Or, the assistance of 2 or more helpers is required for the patient to complete the activity. If activity was not attempted, code reason: 7-Patient Refused. 9-Not Applicable-not attempted and the patient did not perform the activity before the current illness, exacerbation or injury. 10-Not Attempted due to Environmental Limitations-(lack of equipment, weather restraints, etc.). 88-Not Attempted due to Medical Conditions or Safety Concerns. Toileting Hygiene (QC): 4 Toilet Transfer (QC): 3 OT Short Term Goals Short Term Goals Time Frame: February 12, 2020 Eatin Oral hygiene: 4 Toileting hygiene: 4 Shower/bathe self: 4 Upper body dressin Lower body dressin Putting on/taking off footwear: 5 OT Intermediate Goals Equipment Man Goals Time Frame: Feb 19, 2020 Eating (QC): 6 Oral Hygiene (QC): 6 Toileting Hygiene (QC): 6 Shower/Bathe Self (QC): 5 Upper Body Dressing (QC): 6 Lower Body Dressing (QC): 6 On/Off Footwear (QC): 6 Additional Goals: 1-Demonstrate ADL Tasks, 2-Verbalize Understanding, 3-Improve Strength/[place] 1=Demonstrate adherence to instructed precautions during ADL tasks. 2=Patient will verbalize/demonstrate understanding of assistive devices/modifications for ADL. 3=Patient will improve strength/tolerance for activity to enable patient to pe rform ADL's. OT Education/Plan Discharge Recommendations Plan/Recommendations: Continue POC Treatment Plan/Plan of Care Patient would benefit from OT for education, treatment and training to promote independence in ADL's, mobility, safety and/or upper extremity function for ADL's. Plan of Care: ADL Retraining, Functional Mobility, Group Exercise/Act as Ind, UE Funct Exercise/Act Treatment Duration: Feb 19, 2020 Frequency: At least 5 of 7 days/Wk (IRF) Estimated Hrs Per Day: Other (Covid waiver) Agreement: Yes Rehab Potential: Fair Time/GCodes Start Time: 13:00 Stop Time: 13:20 Total Time Billed (hr/min): 20 Billed Treatment Time 1 visit, ADL(20minutes) ELEN BLACKWOOD OT February 13, 2020 13:38
--- NOTE | 2020-02-13 14:00 | Physical Therapy Daily Note ---
PT Daily Note-Current Subjective Pt. agreed to Rx with some encouragement. Before rx pt. c/o pain at 8/10 in R LE, after gait pt. states it is reduced to 6/10. Pain Numeric Pain Scale: 6 Location: Right Location Body Site: Foot (and proximal to hip/groin) Pain Description: Stabbing Mental Status Patient Orientation: Normal For Age Attachments: Oxygen (1L), Other-See Comments (mask per covid protocol) Transfers SCALE: Activities may be completed with or without assistive devices. 8-Addgyzvydy-jwuygpu completes the activity by him/herself with no assistance from a helper. 5-Set-up or Clean-up Assistance-helper sets up or cleans up; patient completes activity. [place] assists only prior to or following the activity. 4-Supervision or Touching Assistance-helper provides verbal cues and/or touching/steadying and/or contact guard assistance as patient completes activity. Assistance may be provided throughout the activity or intermittently. 3-Partial/Moderate Assistance-helper does LESS THAN HALF the effort. [place] lifts, holds or supports trunk or limbs, but provides less than half the effort. 2-Substantial/Maximal Assistance-helper does MORE THAN HALF the effort. [place] lifts or holds trunk or limbs and provides more than half the effort. 7-Vpamndrgr-eoakas does ALL the effort. Patient does none of the effort to complete the activity. Or, the assistance of 2 or more helpers is required for the patient to complete the activity. If activity was not attempted, code reason: 7-Patient Refused. 9-Not Applicable-not attempted and the patient did not perform the activity before the current illness, exacerbation or injury. 10-Not Attempted due to Environmental Limitations-(lack of equipment, weather restraints, etc.). 88-Not Attempted due to Medical Conditions or Safety Concerns. in out bed and chair all mod I Weight Bearing Right Lower Extremity: Right Weight Bearing/Tolerated Left Lower Extremity: Left Weight Bearing/Tolerated Gait Training Does the Patient Walk?: Yes Walk 10 feet (QC): 6 Walk 50 ft with 2 Turns(QC): 6 Walk 150 ft (QC): 6 Gait Persons Needed: 1 Gait Assistive Device: FWW assisted with portable O2 only Exercises Seated Therapy Exercises: Ankle pumps, Sit to stand, Long arc quads, Hip flexion Seated Reps: 8 Assessment Current Status: Fair Progress tolerated gait well with rest break PT Short Term Goals Short Term Goals Time Frame: February 12, 2020 Roll Left & Right: 6 Sit to lyin Lying to sitting on side of be: 6 Sit to stand: 4 Chair/mdg-na-qqxci transfer: 4 Walk 10 feet: 4 Walk 50 feet with two turns: 4 PT Graphic Coordinator Goals Graphic Coordinator Goals PT Assisted Goals Time Frame: Feb 26, 2020 Roll Left & Right (QC): 6 Sit to Lying (QC): 6 Lying-Sitting on Side/Bed(QC): 6 Sit to Stand (QC): 5 Chair/Bxb-of-Qbmlv Xfer(QC): 5 Toilet Transfer (QC): 5 Car Transfer (QC): 5 Does the Patient Walk: Yes Walk 10 feet (QC): 5 Walk 50ft with 2 Turns (QC): 5 Walk 150 ft (QC): 5 Walking 10ft on Uneven Surface: 5 1 Step (curb) (QC): 4 4 Steps (QC): 4 12 Steps (QC): 88 Picking up an Object (QC): 88 Wheel 50 feet with 2 turns (QC: 6 Wheel 150 feet: 6 PT Plan Treatment/Plan Treatment Plan: Continue Plan of Care Treatment Plan: Education, Functional Activity [place], Functional Strength, Gait, Safety, Therapeutic Exercise, Transfers Treatment Duration: Feb 26, 2020 Frequency: tueyt melendez, 60 min per day Estimated Hrs Per Day: 1 hour per day Patient and/or Family Agrees t: Yes Safety Risks/Education Patient Education: Gait Training, Correct Positioning Time/GCodes Time In: 1330 Time Out: 1400 Total Billed Treatment Time: 30 Total Billed Treatment 1,GT30m MELINDA MICHAEL SLP February 13, 2020 14:00
[2020-02-13 17:10] VITALS: BP 113/68
[2020-02-13] MEDS: RIVAROXABAN 20 MG TABLET (XARELTO) PO SCH (17:17)
[2020-02-14] MEDS: RT-ALBUTEROL/IPRATROPIUM 3 ML (DUONEB) VIAL INH SCH ×6 (02:37→21:58)
[2020-02-14] MEDS: CATHETER FLUSH 10 ML SYR IV SCH ×3 (05:00→23:15)
[2020-02-14 05:11] VITALS: BP 102/65
[2020-02-14] MEDS: ADVAIR HFA 115/21 MCG INHALER 8 GM IH SCH ×2 (06:04→18:50)
[2020-02-14] MEDS: MULTIVIT W/MINERALS TAB (THERAGRAN M) PO SCH (06:41)
[2020-02-14] MEDS: GABAPENTIN 100 MG (NEURONTIN) CAP PO SCH ×3 (07:19→20:19)
--- NOTE | 2020-02-14 08:17 | PM&R Progress Note ---
Subjective HPI/CC On Admission Date Seen by Provider: February 14, 2020 Time Seen by Provider: 12:00 Subjective/Events-last exam Neurontin 100mg TID is helping his pain but will increase to 200mg TID since he still has pain Dr. Watson saw him today again and had no changes in plan CT of the chest was completed because the WBC continues to increase to 21 now but PNA improved and no lung mass likely so DC steroids which likely is cause of the elevated abc Decided to go to [place] at [place] and [facility] pursued by SW Needs PCP assignment Labs obtained PCT 0.14 and steroids were stopped 1L/min and weaning down CT chest repeat in 8 weeks Chronic on going disability along with continued pain issues preclude anything other than a guarded snf prognosis especially at 59yo currently Checked meds and labs Reviewed therapy notes Conferred with cras of Systems General: Fatigue Musculoskeletal: leg pain Objective Exam Vital Signs Vital Signs Date Time Temp Pulse Resp B/P (MAP) Pulse Ox O2 Delivery O2 Flow Rate FiO2 02/14/20 14:37 93 Nasal Cannula 2.00 02/14/20 08:40 112 20 109/63 (78) 02/14/20 05:11 36.9 Capillary Refill : Less Than 3 Seconds General Appearance: No Apparent Distress, WD/WN, Anxious, Chronically ill, Cachetic HEENT: PERRL/EOMI, Normal ENT Inspection, Pharynx Normal Neck: Full Range of Motion, Normal Inspection, Non Tender, Supple, Carotid Bruit Respiratory: Chest Non Tender, Lungs Clear, No Accessory Muscle Use, No Respiratory Distress, Decreased Breath Sounds Cardiovascular: Regular Rate, Rhythm, No Edema, No Gallop, No JVD, No Murmur, Normal Peripheral Pulses Gastrointestinal: Normal Bowel Sounds, No Organomegaly, No Pulsatile Mass, Non Tender, Soft Back: Normal Inspection, No CVA Tenderness, No Vertebral Tenderness Extremity: Normal Capillary Refill, Normal Inspection, Normal Range of Motion, Non Tender, No Calf Tenderness, No Pedal Edema Neurologic/Psychiatric: Alert, Oriented x3, No Motor/Sensory Deficits, Normal Mood/Affect, Motor Weakness (all extremities due to muscle wasting) Skin: Normal Color, Warm/Dry Lymphatic: No Adenopathy Results/Procedures Lab Patient resulted labs reviewed. FIM Transfers Therapy Code Descriptions/Definitions Functional [place] Measure: 0=Not Assessed/NA 4=Minimal Assistance 1=Total Assistance 5=Supervision or Setup 2=Maximal Assistance 6=Modified [place] 3=Moderate Assistance 7=Complete IndependenceSCALE: Activities may be completed with or without assistive devices. 6-Eatxsefssc-uhaokpb completes the activity by him/herself with no assistance from a helper. 5-Set-up or Clean-up Assistance-helper sets up or cleans up; patient completes activity. [place] assists only prior to or following the activity. 4-Supervision or Touching Assistance-helper provides verbal cues and/or touching/steadying and/or contact guard assistance as patient completes activity. Assistance may be provided throughout the activity or intermittently. 3-Partial/Moderate Assistance-helper does LESS THAN HALF the effort. [place] lifts, holds or supports trunk or limbs, but provides less than half the effort. 2-Substantial/Maximal Assistance-helper does MORE THAN HALF the effort. [place] lifts or holds trunk or limbs and provides more than half the effort. 7-Glvmswuss-drckcr does ALL the effort. Patient does none of the effort to complete the activity. Or, the assistance of 2 or more helpers is required for the patient to complete the activity. If activity was not attempted, code reason: 7-Patient Refused. 9-Not Applicable-not attempted and the patient did not perform the activity before the current illness, exacerbation or injury. 10-Not Attempted due to Environmental Limitations-(lack of equipment, weather restraints, etc.). 88-Not Attempted due to Medical Conditions or Safety Concerns. Roll Left to Right (QC): 4 Sit to Lying (QC): 6 Sit to Stand (QC): 4 Chair/Kvy-dc-Qobgb Xfer(QC): 4 Car Transfer (QC): 4 Gait Training Does the Patient Walk?: Yes Distance: 120'x2 Walk 10 feet (QC): 6 Walk 50 ft with 2 Turns(QC): 6 Walk 150 ft (QC): 6 Walking 10ft/uneven surface-QC: 4 Gait Persons Needed: 1 Gait Assistive Device: FWW Wheelchair Training Does the Pt Use a Wheelchair?: Yes Distance: 120'x2 Wheel 50 ft with 2 turns (QC): 4 Wheel 150 ft (QC): 4 Type of Wheelchair: Manual Stair Training 1 Step (curb) (QC): 88 4 Steps (QC): 88 12 Steps (QC): 88 Balance Picking up an Object (QC): 88 ADL-Treatment Eating (QC): 6 Oral Hygiene (QC): 5 Shower/Bathe Self (QC): 4 (CGA in stance for balance.) Upper Body Dressing (QC): 4 (SBA to doff/don shirt.) Lower Body Dressing (QC): 4 (CGA in stance to don pants over hips.) On/Off Footwear (QC): 4 (SBA. Pt. holds out foot and asks OT to take socks off. Pt. encouraged to attempt for himself. Pt. able to do this.) Toileting Hygiene (QC): 4 Toilet Transfer (QC): 3 Assessment/Plan Assessment and Plan Assess & Plan/Chief Complaint Assessment: Myopathy PNA facility acquired AECOPD O2 dependent AF CAD PVD Cachexia Lung mass s/p VDRF Right toes dry gangrene consulted Dr Wright Elevated wbc count rechecked CT chest and improved and DC steroids Bilateral leg weakness MRI reveals DJD of spine Somatic complaints Plan: IRF protocol Monitor BP IV Abx completed Fall risk O2 titration Pain meds CT chest with labs reviewed [facility] at [place] Sunday (1) Myopathy (2) Acute occlusion of artery of lower extremity due to thromboembolism Status: Acute (3) Acute respiratory failure with hypoxia Status: Acute (4) Atrial fibrillation with rapid ventricular response Status: Acute (5) Severe protein-calorie malnutrition Status: Acute (6) Pneumonia Status: Acute (7) Debility Status: Acute (8) Iron deficiency anemia Status: Chronic (9) Lung mass Status: Acute (10) Tobacco abuse Status: Chronic (11) Folic acid deficiency Status: Chronic (12) Anemia of chronic disease Status: Chronic (13) COPD (chronic obstructive pulmonary disease) Status: Chronic LOI CORTEZ DO February 14, 2020 08:17
[2020-02-14] MEDS: FOLIC ACID 1 MG TAB PO SCH (08:26)
[2020-02-14] MEDS: risperiDONE 0.25 MG (RisperDAL) TAB PO SCH ×2 (08:26→20:19)
[2020-02-14] MEDS: DIGOXIN 0.25 MG (LANOXIN) TAB PO SCH (08:26)
[2020-02-14] MEDS: FERROUS SULF 325 MG (IRON) TAB PO SCH ×2 (08:26→17:29)
[2020-02-14] MEDS: PANTOPRAZOLE 40 MG (PROTONIX) TAB PO SCH (08:26)
[2020-02-14] MEDS: guaiFENesin (MUCINEX) 600 MG TAB PO SCH ×2 (08:26→20:18)
[2020-02-14 08:40] VITALS: BP 109/63
[2020-02-14] MEDS: polyethylene glycoL POWDER 17 GM (MIRALAX) PACK PO SCH ×2 (08:53→20:18)
[2020-02-14] MEDS: DOCUSATE SODIUM 100 MG (COLACE) CAP PO SCH ×2 (08:53→20:19)
[2020-02-14] MEDS: SENNA W/DOCUSATE (SENOKOT S) TABLET PO SCH ×2 (08:53→20:19)
--- NOTE | 2020-02-14 10:03 | Physical Therapy Daily Note ---
PT Daily Note-Current Subjective Pt reporting (R) leg and foot pain 10/10. He said he cannot bear wt on the leg without it giving way. He describes it as burning, tingling, and numb. Transfers SCALE: Activities may be completed with or without assistive devices. 4-Vxwlbamwro-ezmabag completes the activity by him/herself with no assistance from a helper. 5-Set-up or Clean-up Assistance-helper sets up or cleans up; patient completes activity. [place] assists only prior to or following the activity. 4-Supervision or Touching Assistance-helper provides verbal cues and/or touching/steadying and/or contact guard assistance as patient completes activity. Assistance may be provided throughout the activity or intermittently. 3-Partial/Moderate Assistance-helper does LESS THAN HALF the effort. [place] lifts, holds or supports trunk or limbs, but provides less than half the effort. 2-Substantial/Maximal Assistance-helper does MORE THAN HALF the effort. [place] lifts or holds trunk or limbs and provides more than half the effort. 4-Gqpdtijqz-vqrmfn does ALL the effort. Patient does none of the effort to complete the activity. Or, the assistance of 2 or more helpers is required for the patient to complete the activity. If activity was not attempted, code reason: 7-Patient Refused. 9-Not Applicable-not attempted and the patient did not perform the activity before the current illness, exacerbation or injury. 10-Not Attempted due to Environmental Limitations-(lack of equipment, weather restraints, etc.). 88-Not Attempted due to Medical Conditions or Safety Concerns. Weight Bearing Right Lower Extremity: Right Weight Bearing/Tolerated Left Lower Extremity: Left Weight Bearing/Tolerated Exercises Performed LTR x 20 reps, (R) LE nerve glides 2 x 10 reps, (R) long leg traction 5 bouts of 20 seconds. Education on self LE nerve glides. Attempted position change in bed to reduce LE symptoms. Attempted hooklying, side lying, supine positions. Assessment Pt having visible right leg muscle spasm. Pt had poor tolerance to exercise and (R) LE movement due to pain. Instructed patient on positioning, exercise, and nerve glide techniques to help reduce LE symptoms. Pt encouraged to be out of bed to chair every 2 hours and walk to the door with nurse as leg symptoms allow. PT Short Term Goals Short Term Goals Time Frame: February 12, 2020 Roll Left & Right: 6 Sit to lyin Lying to sitting on side of be: 6 Sit to stand: 4 Chair/ftw-xj-ivuwa transfer: 4 Walk 10 feet: 4 Walk 50 feet with two turns: 4 PT Embalmer/Funeral Director Goals Embalmer/Funeral Director Goals PT Chcf Goals Time Frame: Feb 26, 2020 Roll Left & Right (QC): 6 Sit to Lying (QC): 6 Lying-Sitting on Side/Bed(QC): 6 Sit to Stand (QC): 5 Chair/Dkt-wh-Kzdly Xfer(QC): 5 Toilet Transfer (QC): 5 Car Transfer (QC): 5 Does the Patient Walk: Yes Walk 10 feet (QC): 5 Walk 50ft with 2 Turns (QC): 5 Walk 150 ft (QC): 5 Walking 10ft on Uneven Surface: 5 1 Step (curb) (QC): 4 4 Steps (QC): 4 12 Steps (QC): 88 Picking up an Object (QC): 88 Wheel 50 feet with 2 turns (QC: 6 Wheel 150 feet: 6 PT Plan Treatment/Plan Treatment Plan: Continue Plan of Care Treatment Plan: Education, Functional Activity [place], Functional Strength, Gait, Safety, Therapeutic Exercise, Transfers Treatment Duration: Feb 26, 2020 Frequency: tuyet melendez, 60 min per day Estimated Hrs Per Day: 1 hour per day Patient and/or Family Agrees t: Yes Time/GCodes Time In: 0930 Time Out: 1000 Total Billed Treatment Time: 30 Total Billed Treatment visit, exercise 30 min MILLY DAVISON PT February 14, 2020 10:03
--- NOTE | 2020-02-14 12:55 | Cardiology Progress Note ---
Subjective Date Seen by Provider: February 14, 2020 Time Seen by Provider: 12:55 Subjective/Events-last exam Patient is sitting in a chair, no new complaint, had some weakness in his leg but reporting improvement after exercise Review of Systems General: No Chills, No Night Sweats, No Fatigue, No Malaise, No Appetite, No Other HEENT: No Head Aches, No Visual Changes, No Eye Pain, No Ear Pain, No Dysphasia, No Sinus Congestion, No Post Nasal Drip, No Sore Throat, No Other Pulmonary: No Dyspnea, No Cough, No Pleuritic Chest Pain, No Other Cardiovascular: No: Chest Pain, Palpitations, Orthopnea, Paroxysmal Noc. Dyspnea, Edema, Lt Headedness, Other Objective-Cardiology Exam Last Set of Vital Signs Vital Signs 02/14/20 02/14/20 02/14/20 05:11 08:40 10:49 Temp 36.9 Pulse 112 Resp 20 B/P (MAP) 109/63 (78) Pulse Ox 91 O2 Delivery Nasal Cannula O2 Flow Rate 1.00 Capillary Refill : Less Than 3 Seconds I&O Intake and Output 02/14/20 00:00 Intake Total 2684 ml Output Total 1850 ml Balance 834 ml Intake Oral 2684 ml Output Urine Total 1850 ml # Bowel Movements 2 General: Alert, Oriented X3, Cooperative HEENT: Atraumatic, PERRLA Neck: Supple, No JVD, No Thyromegaly Lungs: Clear to Auscultation, Normal Air Movement Heart: Regular Rate, Normal S1, Normal S2, No Murmurs Abdomen: Normal Bowel Sounds, Soft, No Tenderness, No Hepatosplenomegaly, No Masses Extremities: No Clubbing, No Cyanosis, No Edema, Normal Pulses, No Tenderness/Swelling Skin: No Rashes, No Breakdown, No Significant Lesion Neuro: Normal Gait, Normal Speech, Strength at 5/5 X4 Ext, Normal Tone, Sensation Intact Psych/Mental Status: Mental Status NL, Mood NL A/P-Cardiology Admission Diagnosis Shortness of breath Cough Chest pain Acute limb ischemia Assessment/Plan Pneumonia, improved, received cefepime, managed by primary care physician BLE numbness and pain, MRI of the lumbar spine showed some degenerative disease, there is no abdominal aneurysm. Patient c/o right leg and calf pain and numbness today Chest pain, nonspecific etiology, cardiac catheterization carried out on January 30, 2020 showing mild to moderate coronary artery disease nonobstructive disease. Chest pain is unlikely to be cardiac, Anemia, managed by primary care team, H&H is monitored, EGD done with Dr. Wright reported gastritis and hiatal hernia. Managed by primary care team Status post acute limb ischemia due to embolization probably from atrial fibrillation. Angiogram was carried out showing total occlusion with thrombus in the distal SFA, received thrombolytics and reestablished flow. Maintained on Xarelto at this time. Continue to monitor PAF with RVR on 01/24/20, continue to monitor. Left upper lobe mass, Dr. Eugene following, planning for repeat CT History of head trauma in or around 2017, was in coma for about a month. Has been on disability Tobaccoism, stopped smoking in December 2019, advised to continue to refrain Clinical Quality Measures DVT/VTE Risk/Contraindication: Risk Factor Score Per Nursin RFS Level Per Nursing on Admit: 4+=Very High THERESA BELLAMY MD February 14, 2020 12:55
[2020-02-14] MEDS: RIVAROXABAN 20 MG TABLET (XARELTO) PO SCH (16:27)
[2020-02-14 17:48] VITALS: BP 107/69
--- NOTE | 2020-02-14 23:10 | NUR ---
Report rec'd from Millie MADRIGAL
[2020-02-15] MEDS: RT-ALBUTEROL/IPRATROPIUM 3 ML (DUONEB) VIAL INH SCH ×5 (02:23→18:18)
[2020-02-15] MEDS: CATHETER FLUSH 10 ML SYR IV SCH ×3 (06:15→23:03)
[2020-02-15] MEDS: MULTIVIT W/MINERALS TAB (THERAGRAN M) PO SCH (06:15)
[2020-02-15 06:31] VITALS: BP 108/64
[2020-02-15] MEDS: ADVAIR HFA 115/21 MCG INHALER 8 GM IH SCH ×2 (06:39→18:24)
[2020-02-15 08:14] VITALS: BP 107/61
[2020-02-15] MEDS: DIGOXIN 0.25 MG (LANOXIN) TAB PO SCH (08:18)
[2020-02-15] MEDS: guaiFENesin (MUCINEX) 600 MG TAB PO SCH ×2 (08:18→20:52)
[2020-02-15] MEDS: DOCUSATE SODIUM 100 MG (COLACE) CAP PO SCH ×2 (08:18→20:52)
[2020-02-15] MEDS: SENNA W/DOCUSATE (SENOKOT S) TABLET PO SCH ×2 (08:18→20:52)
[2020-02-15] MEDS: ALPRAZolam 0.25 MG (XANAX) TAB PO PRN (08:18)
[2020-02-15] MEDS: GABAPENTIN 100 MG (NEURONTIN) CAP PO SCH ×3 (08:19→20:52)
[2020-02-15] MEDS: risperiDONE 0.25 MG (RisperDAL) TAB PO SCH ×2 (08:19→20:52)
[2020-02-15] MEDS: PANTOPRAZOLE 40 MG (PROTONIX) TAB PO SCH (08:19)
[2020-02-15] MEDS: FOLIC ACID 1 MG TAB PO SCH (08:23)
[2020-02-15] MEDS: polyethylene glycoL POWDER 17 GM (MIRALAX) PACK PO SCH ×2 (08:24→20:53)
[2020-02-15] MEDS: FERROUS SULF 325 MG (IRON) TAB PO SCH ×2 (08:28→17:06)
--- NOTE | 2020-02-15 09:13 | PM&R Progress Note ---
Subjective HPI/CC On Admission Date Seen by Provider: February 15, 2020 Time Seen by Provider: 09:15 Subjective/Events-last exam Neurontin 200mg TID is helping his pain Dr. Watson saw him today again and had no changes in plan CT of the chest was completed because the WBC continues to increase to 21 now but PNA improved and no lung mass likely so DC steroids which likely is cause of the elevated abc Decided to go to [place] at [place] and [facility] pursued by SW hopefully that can be done tomorrow Needs PCP assignment Labs obtained PCT 0.14 and steroids were stopped 2L/min and weaning down if possible CT chest repeat in 8 weeks Chronic on going disability along with continued pain issues preclude anything other than a guarded [facility] prognosis especially at 59yo currently Checked meds and labs Reviewed therapy notes Conferred with investigations chief of Systems Pulmonary: Dyspnea Musculoskeletal: leg pain Objective Exam Vital Signs Vital Signs Date Time Temp Pulse Resp B/P (MAP) Pulse Ox O2 Delivery O2 Flow Rate FiO2 02/15/20 13:48 88 Nasal Cannula 1.00 02/15/20 08:14 104 22 107/61 (76) 02/15/20 06:31 37.4 Capillary Refill : Less Than 3 Seconds General Appearance: No Apparent Distress, WD/WN, Anxious, Chronically ill, Cachetic HEENT: PERRL/EOMI, Normal ENT Inspection, Pharynx Normal Neck: Full Range of Motion, Normal Inspection, Non Tender, Supple, Carotid Bruit Respiratory: Chest Non Tender, Lungs Clear, No Accessory Muscle Use, No Respiratory Distress, Decreased Breath Sounds Cardiovascular: Regular Rate, Rhythm, No Edema, No Gallop, No JVD, No Murmur, Normal Peripheral Pulses Gastrointestinal: Normal Bowel Sounds, No Organomegaly, No Pulsatile Mass, Non Tender, Soft Back: Normal Inspection, No CVA Tenderness, No Vertebral Tenderness Extremity: Normal Capillary Refill, Normal Inspection, Normal Range of Motion, Non Tender, No Calf Tenderness, No Pedal Edema Neurologic/Psychiatric: Alert, Oriented x3, No Motor/Sensory Deficits, Normal Mood/Affect, Motor Weakness (all extremities due to muscle wasting) Skin: Normal Color, Warm/Dry Lymphatic: No Adenopathy Results/Procedures Lab Patient resulted labs reviewed. FIM Transfers Therapy Code Descriptions/Definitions Functional [place] Measure: 0=Not Assessed/NA 4=Minimal Assistance 1=Total Assistance 5=Supervision or Setup 2=Maximal Assistance 6=Modified [place] 3=Moderate Assistance 7=Complete IndependenceSCALE: Activities may be completed with or without assistive devices. 2-Xkxhnyzxqv-goglnrg completes the activity by him/herself with no assistance from a helper. 5-Set-up or Clean-up Assistance-helper sets up or cleans up; patient completes activity. [place] assists only prior to or following the activity. 4-Supervision or Touching Assistance-helper provides verbal cues and/or touching/steadying and/or contact guard assistance as patient completes activity. Assistance may be provided throughout the activity or intermittently. 3-Partial/Moderate Assistance-helper does LESS THAN HALF the effort. [place] lifts, holds or supports trunk or limbs, but provides less than half the effort. 2-Substantial/Maximal Assistance-helper does MORE THAN HALF the effort. [place] lifts or holds trunk or limbs and provides more than half the effort. 4-Rzahcdonw-iylbio does ALL the effort. Patient does none of the effort to complete the activity. Or, the assistance of 2 or more helpers is required for the patient to complete the activity. If activity was not attempted, code reason: 7-Patient Refused. 9-Not Applicable-not attempted and the patient did not perform the activity before the current illness, exacerbation or injury. 10-Not Attempted due to Environmental Limitations-(lack of equipment, weather restraints, etc.). 88-Not Attempted due to Medical Conditions or Safety Concerns. Roll Left to Right (QC): 4 Sit to Lying (QC): 6 Sit to Stand (QC): 4 Chair/Aqo-js-Gijzo Xfer(QC): 4 Car Transfer (QC): 4 Gait Training Does the Patient Walk?: Yes Distance: 120'x2 Walk 10 feet (QC): 6 Walk 50 ft with 2 Turns(QC): 6 Walk 150 ft (QC): 6 Walking 10ft/uneven surface-QC: 4 Gait Persons Needed: 1 Gait Assistive Device: FWW Wheelchair Training Does the Pt Use a Wheelchair?: Yes Distance: 120'x2 Wheel 50 ft with 2 turns (QC): 4 Wheel 150 ft (QC): 4 Type of Wheelchair: Manual Stair Training 1 Step (curb) (QC): 88 4 Steps (QC): 88 12 Steps (QC): 88 Balance Picking up an Object (QC): 88 ADL-Treatment Eating (QC): 6 Oral Hygiene (QC): 5 Shower/Bathe Self (QC): 4 (CGA in stance for balance.) Upper Body Dressing (QC): 4 (SBA to doff/don shirt.) Lower Body Dressing (QC): 4 (CGA in stance to don pants over hips.) On/Off Footwear (QC): 4 (SBA. Pt. holds out foot and asks OT to take socks off. Pt. encouraged to attempt for himself. Pt. able to do this.) Toileting Hygiene (QC): 4 Toilet Transfer (QC): 3 Assessment/Plan Assessment and Plan Assess & Plan/Chief Complaint Assessment: Myopathy PNA facility acquired AECOPD O2 dependent AF CAD PVD Cachexia Lung mass s/p VDRF Right toes dry gangrene consulted Dr Wright Elevated wbc count rechecked CT chest and improved and DC steroids Bilateral leg weakness MRI reveals DJD of spine Somatic complaints Plan: IRF protocol Monitor BP IV Abx completed Fall risk O2 titration Pain meds CT chest with labs reviewed [facility] at [place] Sunday (1) Myopathy (2) Acute occlusion of artery of lower extremity due to thromboembolism Status: Acute (3) Acute respiratory failure with hypoxia Status: Acute (4) Atrial fibrillation with rapid ventricular response Status: Acute (5) Severe protein-calorie malnutrition Status: Acute (6) Pneumonia Status: Acute (7) Debility Status: Acute (8) Iron deficiency anemia Status: Chronic (9) Lung mass Status: Acute (10) Tobacco abuse Status: Chronic (11) Folic acid deficiency Status: Chronic (12) Anemia of chronic disease Status: Chronic (13) COPD (chronic obstructive pulmonary disease) Status: Chronic LOI CORTEZ DO February 15, 2020 09:13
--- NOTE | 2020-02-15 10:24 | Cardiology Progress Note ---
Subjective Date Seen by Provider: February 15, 2020 Time Seen by Provider: 10:23 Subjective/Events-last exam Patient is laying down in bed, feeling better, leg is feeling better. Review of Systems General: No Chills, No Night Sweats, No Fatigue, No Malaise, No Appetite, No Other HEENT: No Head Aches, No Visual Changes, No Eye Pain, No Ear Pain, No Dysphasia, No Sinus Congestion, No Post Nasal Drip, No Sore Throat, No Other Pulmonary: No Dyspnea, No Cough, No Pleuritic Chest Pain, No Other Cardiovascular: No: Chest Pain, Palpitations, Orthopnea, Paroxysmal Noc. Dyspnea, Edema, Lt Headedness, Other Objective-Cardiology Exam Last Set of Vital Signs Vital Signs 02/15/20 02/15/20 02/15/20 06:31 08:14 09:50 Temp 37.4 Pulse 104 Resp 22 B/P (MAP) 107/61 (76) Pulse Ox 94 O2 Delivery Nasal Cannula O2 Flow Rate 2.00 Capillary Refill : Less Than 3 Seconds I&O Intake and Output 02/15/20 00:00 Intake Total 2500 ml Output Total 3055 ml Balance -555 ml Intake Oral 2500 ml Output Urine Total 3055 ml # Bowel Movements 1 General: Alert, Oriented X3, Cooperative HEENT: Atraumatic, PERRLA Neck: Supple, No JVD, No Thyromegaly Lungs: Clear to Auscultation, Normal Air Movement Heart: Regular Rate, Normal S1, Normal S2, No Murmurs, Other (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) Abdomen: Normal Bowel Sounds, Soft, No Tenderness, No Hepatosplenomegaly, No Masses Extremities: No Clubbing, No Cyanosis, No Edema, Normal Pulses, No Tender ness/Swelling Skin: No Rashes, No Breakdown, No Significant Lesion Neuro: Normal Gait, Normal Speech, Strength at 5/5 X4 Ext, Normal Tone, Sensation Intact Psych/Mental Status: Mental Status NL, Mood NL A/P-Cardiology Admission Diagnosis Shortness of breath Cough Chest pain Acute limb ischemia Assessment/Plan Pneumonia, improved, received cefepime, managed by primary care physician BLE numbness and pain, MRI of the lumbar spine showed some degenerative disease, there is no abdominal aneurysm. Feeling better today. Continue to monitor Chest pain, nonspecific etiology, cardiac catheterization carried out on January 30, 2020 showing mild to moderate coronary artery disease nonobstructive disease. Chest pain is unlikely to be cardiac, Anemia, managed by primary care team, H&H is monitored, EGD done with Dr. Wright reported gastritis and hiatal hernia. Managed by primary care team Status post acute limb ischemia due to embolization probably from atrial fibrillation. Angiogram was carried out showing total occlusion with thrombus in the distal SFA, received thrombolytics and reestablished flow. Maintained on Xarelto at this time. Continue to monitor PAF with RVR on 01/24/20, continue to monitor. Left upper lobe mass, Dr. Eugene following, planning for repeat CT History of head trauma in or around 2017, was in coma for about a month. Has been on disability Tobaccoism, stopped smoking in December 2019, advised to continue to refrain Clinical Quality Measures DVT/VTE Risk/Contraindication: Risk Factor Score Per Nursin RFS Level Per Nursing on Admit: 4+=Very High THERESA BELLAMY MD February 15, 2020 10:24
[2020-02-15] MEDS ORDERED: PANT40TA3 PO (14:51)
[2020-02-15] MEDS ORDERED: GUAI600T43 PO (14:51)
[2020-02-15] MEDS ORDERED: FLUT12AE4 IH (14:51)
[2020-02-15] MEDS ORDERED: DIGO250T15 PO (14:51)
[2020-02-15] MEDS ORDERED: GABA-486 PO (14:51)
[2020-02-15] MEDS ORDERED: LACT20SO2 PO (14:51)
[2020-02-15] MEDS ORDERED: ALPR0.254 PO (14:51)
[2020-02-15] MEDS ORDERED: FOLI1TAB24 PO (14:51)
[2020-02-15] MEDS ORDERED: DILT300C52 PO (14:51)
[2020-02-15] MEDS ORDERED: FERR325T18 PO (14:51)
[2020-02-15] MEDS ORDERED: OXYC5TAB96 PO (14:51)
[2020-02-15] MEDS ORDERED: RIVA20TA2 PO (14:51)
[2020-02-15] MEDS ORDERED: IPRA3AMP31 INH (14:51)
[2020-02-15] MEDS ORDERED: SENN-20 PO (14:51)
--- NOTE | 2020-02-15 14:52 | Discharge Inst-Skilled Nursing ---
Discharge Inst-Skilled NF Reconcile Patient Problems Problems Reviewed?: Yes Patient Instructions Patient Problems: Severe PNA Right toes dry gangrene Debility Chronic pain Right leg thrombosis Goal: Return home Consult/Follow Up/Orders Follow Up Appt.: NH rounds Skilled NF Admit to: Via [facility] Certification ([facility]) I certify that [facility] services are required to be given on an inpatient basis because of the above named patient's need for shelter care on a continuing basis for the conditions(s) for which he/she was receiving inpatient hospital services prior to his/her transfer to the [facility]. [facility] Facility Order: Nursing Services, Security Alarm Installer-Evaluate & Treat, Physical Therapy-Evaluate & Treat Oxygen Delivery Method: Nasal Cannula (2L/min) Discharge Diet: No Restrictions Daily Activity as Tolerated: Yes Resuscitation Status: Full Code New & Resume Previous Orders New Medications: Alprazolam (Alprazolam) 0.25 Mg Tablet 0.25 MG PO Q8H PRN for ANXIETY, #15 TAB Digoxin (Digox) 250 Mcg Tablet 0.25 MG PO DAILY for 30 Days, TAB Diltiazem HCl (Diltiazem 24Hr ER) 300 Mg Cap.er.24h 300 MG PO DAILY for 30 Days, CAP Ferrous Sulfate (Ferrous Sulfate) 325 Mg Tablet 325 MG PO BID WITH MEALS for 30 Days, TAB Fluticasone/Salmeterol (Advair Hfa 115-21 Mcg Inhaler) 12 Gm Hfa.aer.ad 0 PUFF IH RTBID for 30 Days, GM Folic Acid (Folic Acid) 1 Mg Tablet 1 MG PO DAILY for 30 Days, TAB Gabapentin (Gabapentin) 100 Mg Capsule 200 MG PO TID for 30 Days, CAP Guaifenesin (Mucinex) 600 Mg Tab.er.12h 600 MG PO BID for 30 Days, TAB Ipratropium/Albuterol Sulfate (Iprat-Albut 0.5-3(2.5) mg/3 ml) 3 Ml Ampul.neb 3 ML INH RTQ4HR for 30 Days, INHALER Lactulose (Lactulose) 20 Gm/30 Ml Solution 10 GM PO BID PRN for CONSTIPATION-2ND LINE for 30 Days, EA Oxycodone HCl (Oxycodone IR) 5 Mg Tablet 5 MG PO Q4HR PRN for PAIN-SEVERE (8-10), #60 TAB Pantoprazole Sodium (Pantoprazole Sodium) 40 Mg Tablet.dr 40 MG PO DAILY for 30 Days, TAB Rivaroxaban (Xarelto Tablet) 20 Mg Tablet 20 MG PO DAILY@1700 for 180 Days, TAB Sennosides/Docusate Sodium (Senna-Time S Tablet) 1 Each Tablet 1 EA PO BID for 30 Days, TAB Continued Medications: Multivitamin (Multivitamin) 1 Each Tablet 1 EACH PO DAILY, TAB Discontinued Medications: Naproxen Sodium (Aleve) 220 Mg Capsule 440 MG PO Q8H PRN for PAIN-MILD (1-4), CAP Margarita Sinha February 15, 2020 14:51 Pneu Vac Indicated: Yes MARGARITA SINHA DO February 15, 2020 14:52
[2020-02-15] MEDS: RIVAROXABAN 20 MG TABLET (XARELTO) PO SCH (17:06)
[2020-02-15 17:16] VITALS: BP 110/66
[2020-02-16] MEDS: RT-ALBUTEROL/IPRATROPIUM 3 ML (DUONEB) VIAL INH SCH ×5 (01:31→21:28)
[2020-02-16 05:45] VITALS: BP 107/65
[2020-02-16] MEDS: CATHETER FLUSH 10 ML SYR IV SCH ×3 (06:06→22:25)
[2020-02-16] MEDS: MULTIVIT W/MINERALS TAB (THERAGRAN M) PO SCH (06:06)
--- NOTE | 2020-02-16 06:45 | Discharge Summary ---
Diagnosis/Chief Complaint Date of Admission February 05, 2020 at 10:15 Date of Discharge Discharge Date: Feb 16, 2020 Discharge Summary Discharge Physical Examination Allergies: Coded Allergies: No Known Drug Allergies (Verified , 07/11/09) Vitals & I&Os Vital Signs Date Time Temp Pulse Resp B/P (MAP) Pulse Ox O2 Delivery O2 Flow Rate FiO2 02/16/20 09:00 Nasal Cannula 2.00 02/16/20 07:17 94 02/16/20 05:45 36.9 96 18 107/65 (79) Hospital Course Labs (last 24 hrs) Laboratory Tests 02/06/20 06:53: White Blood Count 14.6H, Red Blood Count 2.97L, Hemoglobin 9.3L, Hematocrit 30L, Mean Corpuscular Volume 101H, Mean Corpuscular Hemoglobin 31, Mean Corpuscular Hemoglobin Concent 31L, Red Cell Distribution Width 18.4H, Platelet Count 642H, Mean Platelet Volume 9.1, Neutrophils (%) (Auto) 81H, Lymphocytes (%) (Auto) 9L, Monocytes (%) (Auto) 8, Eosinophils (%) (Auto) 2, Basophils (%) (Auto) 0, Neutrophils # (Auto) 11.8H, Lymphocytes # (Auto) 1.3, Monocytes # (Auto) 1.2H, Eosinophils # (Auto) 0.2, Basophils # (Auto) 0.0, Neutrophils % (Manual) 67, Lymphocytes % (Manual) 16, Monocytes % (Manual) 5, Eosinophils % (Manual) 1, Basophils % (Manual) 0, Band Neutrophils 11, Polychromasia SLIGHT, Anisocytosis SLIGHT, Macrocytosis SLIGHT, Sodium Level 136, Potassium Level 4.3, Chloride Level 101, Carbon Dioxide Level 26, Anion Gap 9, Blood Urea Nitrogen 17, Creatinine 0.53L, Estimat Glomerular Filtration Rate > 60, BUN/Creatinine Ratio 32, Glucose Level 113H, Lactic Acid Level 1.45, Calcium Level 8.6, Corrected Calcium 9.5, Total Bilirubin 0.1, Aspartate Amino Transf (AST/SGOT) 26, Alanine Aminotransferase (ALT/SGPT) 35, Alkaline Phosphatase 114, Total Protein 6.8, Albumin 2.9L, Procalcitonin 0.21H 02/09/20 06:07: White Blood Count 16.1H, Red Blood Count 2.83L, Hemoglobin 9.0L, Hematocrit 29L, Mean Corpuscular Volume 101H, Mean Corpuscular Hemoglobin 32, Mean Corpuscular Hemoglobin Concent 32, Red Cell Distribution Width 18.0H, Platelet Count 738H, Mean Platelet Volume 8.7, Neutrophils (%) (Auto) 72, Lymphocytes (%) (Auto) 16, Monocytes (%) (Auto) 10, Eosinophils (%) (Auto) 1, Basophils (%) (Auto) 1, Neutrophils # (Auto) 11.7H, Lymphocytes # (Auto) 2.6, Monocytes # (Auto) 1.6H, Eosinophils # (Auto) 0.2, Basophils # (Auto) 0.1, Sodium Level 138, Potassium Level 4.1, Chloride Level 103, Carbon Dioxide Level 24, Anion Gap 11, Blood Urea Nitrogen 24H, Creatinine 0.57L, Estimat Glomerular Filtration Rate > 60, BUN/Creatinine Ratio 42, Glucose Level 95, Calcium Level 8.7, Corrected Calcium 9.6, Total Bilirubin 0.1, Aspartate Amino Transf (AST/SGOT) 21, Alanine Aminotransferase (ALT/SGPT) 30, Alkaline Phosphatase 105, Total Protein 6.5, Albumin 2.9L 02/10/20 04:45: White Blood Count 17.2H, Red Blood Count 2.78L, Hemoglobin 8.7L, Hematocrit 28L, Mean Corpuscular Volume 101H, Mean Corpuscular Hemoglobin 31, Mean Corpuscular Hemoglobin Concent 31L, Red Cell Distribution Width 17.9H, Platelet Count 702H, Mean Platelet Volume 8.7, Neutrophils (%) (Auto) 74, Lymphocytes (%) (Auto) 16, Monocytes (%) (Auto) 9, Eosinophils (%) (Auto) 1, Basophils (%) (Auto) 1, Neutrophils # (Auto) 12.6H, Lymphocytes # (Auto) 2.7, Monocytes # (Auto) 1.6H, Eosinophils # (Auto) 0.1, Basophils # (Auto) 0.1, Sodium Level 138, Potassium Level 4.5, Chloride Level 102, Carbon Dioxide Level 28, Anion Gap 8, Blood Urea Nitrogen 22H, Creatinine 0.52L, Estimat Glomerular Filtration Rate > 60, BUN/Creatinine Ratio 42, Glucose Level 101, Calcium Level 8.6, Corrected Calcium 9.6, Total Bilirubin < 0.1L, Aspartate Amino Transf (AST/SGOT) 20, Alanine Aminotransferase (ALT/SGPT) 29, Alkaline Phosphatase 88, Total Protein 6.3L, Albumin 2.8L 02/11/20 06:25: White Blood Count 20.0H, Red Blood Count 2.77L, Hemoglobin 8.8L, Hematocrit 28L, Mean Corpuscular Volume 102H, Mean Corpuscular Hemoglobin 32, Mean Corpuscular Hemoglobin Concent 31L, Red Cell Distribution Width 18.0H, Platelet Count 739H, Mean Platelet Volume 8.4, Neutrophils (%) (Auto) 75, Lymphocytes (%) (Auto) 16, Monocytes (%) (Auto) 8, Eosinophils (%) (Auto) 1, Basophils (%) (Auto) 1, N eutrophils # (Auto) 14.9H, Lymphocytes # (Auto) 3.2, Monocytes # (Auto) 1.7H, Eosinophils # (Auto) 0.1, Basophils # (Auto) 0.1, Sodium Level 141, Potassium Level 4.0, Chloride Level 103, Carbon Dioxide Level 28, Anion Gap 10, Blood Urea Nitrogen 23H, Creatinine 0.58L, Estimat Glomerular Filtration Rate > 60, B UN/Creatinine Ratio 40, Glucose Level 110H, Calcium Level 8.5, Corrected Calcium 9.4, Total Bilirubin 0.1, Aspartate Amino Transf (AST/SGOT) 19, Alanine Aminotransferase (ALT/SGPT) 29, Alkaline Phosphatase 85, Total Protein 6.2L, Albumin 2.9L, Procalcitonin 0.18H 02/12/20 03:58: White Blood Count 21.0H, Red Blood Count 2.72L, Hemoglobin 8.5L, Hematocrit 28L, Mean Corpuscular Volume 102H, Mean Corpuscular Hemoglobin 31, Mean Corpuscular Hemoglobin Concent 31L, Red Cell Distribution Width 18.3H, Platelet Count 719H, Mean Platelet Volume 8.8, Neutrophils (%) (Auto) 75, Lymphocytes (%) (Auto) 16, Monocytes (%) (Auto) 9, Eosinophils (%) (Auto) 1, Basophils (%) (Auto) 1, Neutrophils # (Auto) 15.7H, Lymphocytes # (Auto) 3.3, Monocytes # (Auto) 1.8H, Eosinophils # (Auto) 0.1, Basophils # (Auto) 0.1, Neutrophils % (Manual) 56, Lymphocytes % (Manual) 19, Monocytes % (Manual) 9, Eosinophils % (Manual) 1, Band Neutrophils 7, Atypical Lymphocytes 8, Anisocytosis MODERATE, Macrocytosis SLIGHT, Sodium Level 141, Potassium Level 4.2, Chloride Level 105, Carbon Dioxide Level 28, Anion Gap 8, Blood Urea Nitrogen 26H, Creatinine 0.53L, Estimat Glomerular Filtration Rate > 60, BUN/Creatinine Ratio 49, Glucose Level 96, Calcium Level 8.4L, Corrected Calcium 9.4, Total Bilirubin < 0.1L, Aspartate Amino Transf (AST/SGOT) 19, Alanine Aminotransferase (ALT/SGPT) 29, Alkaline Phosphatase 77, Total Protein 6.0L, Albumin 2.8L 02/13/20 06:57: White Blood Count 21.2H, Red Blood Count 3.07L, Hemoglobin 9.6L, Hematocrit 32L, Mean Corpuscular Volume 103H, Mean Corpuscular Hemoglobin 31, Mean Corpuscular Hemoglobin Concent 30L, Red Cell Distribution Width 18.5H, Platelet Count 723H, Mean Platelet Volume 8.3, Neutrophils (%) (Auto) 78H, Lymphocytes (%) (Auto) 13, Monocytes (%) (Auto) 8, Eosinophils (%) (Auto) 1, Basophils (%) (Auto) 1, Neutrophils # (Auto) 16.5H, Lymphocytes # (Auto) 2.8, Monocytes # (Auto) 1.6H, Eosinophils # (Auto) 0.1, Basophils # (Auto) 0.1, Sodium Level 139, Potassium Level 3.9, Chloride Level 101, Carbon Dioxide Level 27, Anion Gap 11, Blood Urea Nitrogen 19H, Creatinine 0.54L, Estimat Glomerular Filtration Rate > 60, BUN/Creatinine Ratio 35, Glucose Level 118H, Calcium Level 8.8, Procalcitonin 0.14H 02/16/20 06:15: White Blood Count 15.9H, Red Blood Count 2.93L, Hemoglobin 9.3L, Hematocrit 30L, Mean Corpuscular Volume 102H, Mean Corpuscular Hemoglobin 32, Mean Corpuscular Hemoglobin Concent 31L, Red Cell Distribution Width 17.9H, Platelet Count 543H, Mean Platelet Volume 8.7, Neutrophils (%) (Auto) 79H, Lymphocytes (%) (Auto) 10L , Monocytes (%) (Auto) 10, Eosinophils (%) (Auto) 1, Basophils (%) (Auto) 0, Neutrophils # (Auto) 12.5H, Lymphocytes # (Auto) 1.6, Monocytes # (Auto) 1.6H, Eosinophils # (Auto) 0.1, Basophils # (Auto) 0.0, Sodium Level 138, Potassium Level 4.2, Chloride Level 102, Carbon Dioxide Level 27, Anion Gap 9, Blood Urea Nitrogen 16, Creatinine 0.57L, Estimat Glomerular Filtration Rate > 60, BUN/Creatinine Ratio 28, Glucose Level 95, Calcium Level 9.2, Corrected Calcium 9.9, Total Bilirubin 0.2, Aspartate Amino Transf (AST/SGOT) 18, Alanine Aminotransferase (ALT/SGPT) 30, Alkaline Phosphatase 71, Total Protein 6.3L, Albumin 3.1L, Procalcitonin 0.17H, Digoxin Level 0.56L Pending Labs Laboratory Tests 02/06/20 06:53: White Blood Count 14.6, Red Blood Count 2.97, Hemoglobin 9.3, Hematocrit 30, Mean Corpuscular Volume 101, Mean Corpuscular Hemoglobin 31, Mean Corpuscular Hemoglobin Concent 31, Red Cell Distribution Width 18.4, Platelet Count 642, Mean Platelet Volume 9.1, Neutrophils (%) (Auto) 81, Lymphocytes (%) (Auto) 9, Monocytes (%) (Auto) 8, Eosinophils (%) (Auto) 2, Basophils (%) (Auto) 0, Neutrophils # (Auto) 11.8, Lymphocytes # (Auto) 1.3, Monocytes # (Auto) 1.2, Eosinophils # (Auto) 0.2, Basophils # (Auto) 0.0, Neutrophils % (Manual) 67, Lymphocytes % (Manual) 16, Monocytes % (Manual) 5, Eosinophils % (Manual) 1, Basophils % (Manual) 0, Band Neutrophils 11, Polychromasia SLIGHT, Anisocytosis SLIGHT, Macrocytosis SLIGHT, Sodium Level 136, Potassium Level 4.3, Chloride Level 101, Carbon Dioxide Level 26, Anion Gap 9, Blood Urea Nitrogen 17, Creatinine 0.53, Estimat Glomerular Filtration Rate > 60, BUN/Creatinine Ratio 32, Glucose Level 113, Lactic Acid Level 1.45, Calcium Level 8.6, Corrected Calcium 9.5, Total Bilirubin 0.1, Aspartate Amino Transf (AST/SGOT) 26, Alanine Aminotransferase (ALT/SGPT) 35, Alkaline Phosphatase 114, Total Protein 6.8, Albumin 2.9, Procalcitonin 0.21 02/09/20 06:07: White Blood Count 16.1, Red Blood Count 2.83, Hemoglobin 9.0, Hematocrit 29, Mean Corpuscular Volume 101, Mean Corpuscular Hemoglobin 32, Mean Corpuscular Hemoglobin Concent 32, Red Cell Distribution Width 18.0, Platelet Count 738, Mean Platelet Volume 8.7, Neutrophils (%) (Auto) 72, Lymphocytes (%) (Auto) 16, Monocytes (%) (Auto) 10, Eosinophils (%) (Auto) 1, Basophils (%) (Auto) 1, Neutrophils # (Auto) 11.7, Lymphocytes # (Auto) 2.6, Monocytes # (Auto) 1.6, Eosinophils # (Auto) 0.2, Basophils # (Auto) 0.1, Sodium Level 138, Potassium Level 4.1, Chloride Level 103, Carbon Dioxide Level 24, Anion Gap 11, Blood Urea Nitrogen 24, Creatinine 0.57, Estimat Glomerular Filtration Rate > 60, BUN/Creatinine Ratio 42, Glucose Level 95, Calcium Level 8.7, Corrected Calcium 9.6, Total Bilirubin 0.1, Aspartate Amino Transf (AST/SGOT) 21, Alanine Aminotransferase (ALT/SGPT) 30, Alkaline Phosphatase 105, Total Protein 6.5, Albumin 2.9 02/10/20 04:45: White Blood Count 17.2, Red Blood Count 2.78, Hemoglobin 8.7, Hematocrit 28, Mean Corpuscular Volume 101, Mean Corpuscular Hemoglobin 31, Mean Corpuscular Hemoglobin Concent 31, Red Cell Distribution Width 17.9, Platelet Count 702, Me an Platelet Volume 8.7, Neutrophils (%) (Auto) 74, Lymphocytes (%) (Auto) 16, Monocytes (%) (Auto) 9, Eosinophils (%) (Auto) 1, Basophils (%) (Auto) 1, Neutrophils # (Auto) 12.6, Lymphocytes # (Auto) 2.7, Monocytes # (Auto) 1.6, Eosinophils # (Auto) 0.1, Basophils # (Auto) 0.1, Sodium Level 138, Potassium Level 4.5, Chloride Level 102, Carbon Dioxide Level 28, Anion Gap 8, Blood Urea Nitrogen 22, Creatinine 0.52, Estimat Glomerular Filtration Rate > 60, BUN/Creatinine Ratio 42, Glucose Level 101, Calcium Level 8.6, Corrected Calcium 9.6, Total Bilirubin < 0.1, Aspartate Amino Transf (AST/SGOT) 20, Alanine Aminotransferase (ALT/SGPT) 29, Alkaline Phosphatase 88, Total Protein 6.3, Albumin 2.8 02/11/20 06:25: White Blood Count 20.0, Red Blood Count 2.77, Hemoglobin 8.8, Hematocrit 28, Mean Corpuscular Volume 102, Mean Corpuscular Hemoglobin 32, Mean Corpuscular Hemoglobin Concent 31, Red Cell Distribution Width 18.0, Platelet Count 739, Mean Platelet Volume 8.4, Neutrophils (%) (Auto) 75, Lymphocytes (%) (Auto) 16, Monocytes (%) (Auto) 8, Eosinophils (%) (Auto) 1, Basophils (%) (Auto) 1, Neutrophils # (Auto) 14.9, Lymphocytes # (Auto) 3.2, Monocytes # (Auto) 1.7, Eosinophils # (Auto) 0.1, Basophils # (Auto) 0.1, Sodium Level 141, Potassium L evel 4.0, Chloride Level 103, Carbon Dioxide Level 28, Anion Gap 10, Blood Urea Nitrogen 23, Creatinine 0.58, Estimat Glomerular Filtration Rate > 60, BUN/Creatinine Ratio 40, Glucose Level 110, Calcium Level 8.5, Corrected Calcium 9.4, Total Bilirubin 0.1, Aspartate Amino Transf (AST/SGOT) 19, Alanine Aminotransferase (ALT/SGPT) 29, Alkaline Phosphatase 85, Total Protein 6.2, [place]bu min 2.9, Procalcitonin 0.18 02/12/20 03:58: White Blood Count 21.0, Red Blood Count 2.72, Hemoglobin 8.5, Hematocrit 28, Mean Corpuscular Volume 102, Mean Corpuscular Hemoglobin 31, Mean Corpuscular Hemoglobin Concent 31, Red Cell Distribution Width 18.3, Platelet Count 719, Mean Platelet Volume 8.8, Neutrophils (%) (Auto) 75, Lymphocytes (%) (Auto) 16, Monocytes (%) (Auto) 9, Eosinophils (%) (Auto) 1, Basophils (%) (Auto) 1, Neutrophils # (Auto) 15.7, Lymphocytes # (Auto) 3.3, Monocytes # (Auto) 1.8, Eosinophils # (Auto) 0.1, Basophils # (Auto) 0.1, Neutrophils % (Manual) 56, Lymphocytes % (Manual) 19, Monocytes % (Manual) 9, Eosinophils % (Manual) 1, Band Neutrophils 7, Atypical Lymphocytes 8, Anisocytosis MODERATE, Macrocytosis SLIGHT, Sodium Level 141, Potassium Level 4.2, Chloride Level 105, Carbon Dioxide Level 28, Anion Gap 8, Blood Urea Nitrogen 26, Creatinine 0.53, Estimat Glomerular Filtration Rate > 60, BUN/Creatinine Ratio 49, Glucose Level 96, Calcium Level 8.4, Corrected Calcium 9.4, Total Bilirubin < 0.1, Aspartate Amino Transf (AST/SGOT) 19, Alanine Aminotransferase (ALT/SGPT) 29, Alkaline Phosphat ase 77, Total Protein 6.0, Albumin 2.8 02/13/20 06:57: White Blood Count 21.2, Red Blood Count 3.07, Hemoglobin 9.6, Hematocrit 32, Mean Corpuscular Volume 103, Mean Corpuscular Hemoglobin 31, Mean Corpuscular Hemoglobin Concent 30, Red Cell Distribution Width 18.5, Platelet Count 723, Mean Platelet Volume 8.3, Neutrophils (%) (Auto) 78, Lymphocytes (%) (Auto) 13, Monocytes (%) (Auto) 8, Eosinophils (%) (Auto) 1, Basophils (%) (Auto) 1, Neutrophils # (Auto) 16.5, Lymphocytes # (Auto) 2.8, Monocytes # (Auto) 1.6, Eosinophils # (Auto) 0.1, Basophils # (Auto) 0.1, Sodium Level 139, Potassium Level 3.9, Chloride Level 101, Carbon Dioxide Level 27, Anion Gap 11, Blood Urea Nitrogen 19, Creatinine 0.54, Estimat Glomerular Filtration Rate > 60, BUN/Creatinine Ratio 35, Glucose Level 118, Calcium Level 8.8, Procalcitonin 0.14 02/16/20 06:15: White Blood Count 15.9, Red Blood Count 2.93, Hemoglobin 9.3, Hematocrit 30, Mean Corpuscular Volume 102, Mean Corpuscular Hemoglobin 32, Mean Corpuscular Hemoglobin Concent 31, Red Cell Distribution Width 17.9, Platelet Count 543, Mean Platelet Volume 8.7, Neutrophils (%) (Auto) 79, Lymphocytes (%) (Auto) 10, Monocytes (%) (Auto) 10, Eosinophils (%) (Auto) 1, Basophils (%) (Auto) 0, Neutrophils # (Auto) 12.5, Lymphocytes # (Auto) 1.6, Monocytes # (Auto) 1.6, Eosinophils # (Auto) 0.1, Basophils # (Auto) 0.0, Sodium Level 138, Potassium Level 4.2, Chloride Level 102, Carbon Dioxide Level 27, Anion Gap 9, Blood Urea Nitrogen 16, Creatinine 0.57, Estimat Glomerular Filtration Rate > 60, BUN/Creatinine Ratio 28, Glucose Level 95, Calcium Level 9.2, Corrected Calcium 9.9, Total Bilirubin 0.2, Aspartate Amino Transf (AST/SGOT) 18, Alanine Aminotransferase (ALT/SGPT) 30, Alkaline Phosphatase 71, Total Protein 6.3, Albumin 3.1, Procalcitonin 0.17, Digoxin Level 0.56 Discharge Home Medications: Active Scripts Active Folic Acid 1 Mg Tablet 1 Mg PO DAILY 30 Days Pantoprazole Sodium 40 Mg Tablet.dr 40 Mg PO DAILY 30 Days Senna-Time S Tablet (Sennosides/Docusate Sodium) 1 Each Tablet 1 Ea PO BID 30 Days Mucinex (Guaifenesin) 600 Mg Tab.er.12h 600 Mg PO BID 30 Days Advair Hfa 115-21 Mcg Inhaler (Fluticasone/Salmeterol) 12 Gm Hfa.aer.ad 0 Puff IH RTBID 30 Days Lactulose 20 Gm/30 Ml Solution 10 Gm PO BID PRN 30 Days Alprazolam 0.25 Mg Tablet 0.25 Mg PO Q8H PRN Gabapentin 100 Mg Capsule 200 Mg PO TID 30 Days Oxycodone IR (Oxycodone HCl) 5 Mg Tablet 5 Mg PO Q4HR PRN Diltiazem 24Hr ER (Diltiazem HCl) 300 Mg Cap.er.24h 300 Mg PO DAILY 30 Days Digox (Digoxin) 250 Mcg Tablet 0.25 Mg PO DAILY 30 Days Xarelto Tablet (Rivaroxaban) 20 Mg Tablet 20 Mg PO DAILY@1700 180 Days Ferrous Sulfate 325 Mg Tablet 325 Mg PO BID WITH MEALS 30 Days Iprat-Albut 0.5-3(2.5) mg/3 ml (Ipratropium/Albuterol Sulfate) 3 Ml Ampul.neb 3 Ml INH RTQ4HR 30 Days Reported Multivitamin 1 Each Tablet 1 Each PO DAILY Aleve (Naproxen Sodium) 220 Mg Capsule 440 Mg PO Q8H PRN Instructions to patient/family Please see electronic discharge instructions given to patient. Diagnosis/Problems Diagnosis/Problems (1) Myopathy (2) Acute occlusion of artery of lower extremity due to thromboembolism Status: Acute (3) Acute respiratory failure with hypoxia Status: Acute (4) Atrial fibrillation with rapid ventricular response Status: Acute (5) Severe protein-calorie malnutrition Status: Acute (6) Pneumonia Status: Acute (7) Debility Status: Acute (8) Iron deficiency anemia Status: Chronic (9) Lung mass Status: Acute (10) Tobacco abuse Status: Chronic (11) Folic acid deficiency Status: Chronic (12) Anemia of chronic disease Status: Chronic (13) COPD (chronic obstructive pulmonary disease) Status: Chronic Clinical Quality Measures DVT/VTE Risk/Contraindication: Risk Factor Score Per Nursin RFS Level Per Nursing on Admit: 4+=Very High LOI CORTEZ DO Feb 16, 2020 06:45
--- NOTE | 2020-02-16 06:49 | NUR ---
PATIENT SLEPT WELL, REPORTS PAIN BETTER CONTROLLED. REQUESTED LESS PRN PAIN MEDS THIS NIGHT.
[2020-02-16 06:55] LABS: BASOPHILS % (AUTO) 0 % (0-10); EOSINOPHILS # (AUTO) 0.1 10^3/uL (0.0-0.3); EOSINOPHILS % (AUTO) 1 % (0-10); HEMATOCRIT 30 % (40-54); HEMOGLOBIN 9.3 G/DL (13.3-17.7); LYMPHOCYTES # (AUTO) 1.6 X 10^3 (1.0-4.0); LYMPHOCYTES % (AUTO) 10 % (12-44); MEAN CORPUSCULAR HEMOGLOBIN 32 PG (25-34); MEAN CORPUSCULAR HGB CONC 31 G/DL (32-36); MEAN CORPUSCULAR VOLUME 102 FL (80-99); MEAN PLATELET VOLUME 8.7 FL (7.4-10.4); MONOCYTES # (AUTO) 1.6 X 10^3 (0.0-1.0); MONOCYTES % (AUTO) 10 % (0-12); NEUTROPHILS # (AUTO) 12.5 X 10^3 (1.8-7.8); NEUTROPHILS % (AUTO) 79 % (42-75); PLATELET COUNT 543 10^3/uL (130-400); RED CELL DISTRIBUTION WIDTH 17.9 % (10.0-14.5); WHITE BLOOD COUNT 15.9 10^3/uL (4.3-11.0)
[2020-02-16 07:11] LABS: ALBUMIN 3.1 GM/DL (3.2-4.5)
[2020-02-16 07:12] LABS: CHLORIDE 102 MMOL/L (98-107); POTASSIUM 4.2 MMOL/L (3.6-5.0); SODIUM 138 MMOL/L (135-145)
[2020-02-16 07:13] LABS: CALCIUM 9.2 MG/DL (8.5-10.1)
[2020-02-16 07:14] LABS: GLUCOSE 95 MG/DL (70-105); TOTAL PROTEIN 6.3 GM/DL (6.4-8.2)
[2020-02-16 07:15] LABS: CARBON DIOXIDE 27 MMOL/L (21-32)
[2020-02-16 07:16] LABS: BILIRUBIN,TOTAL 0.2 MG/DL (0.1-1.0)
[2020-02-16] MEDS: ADVAIR HFA 115/21 MCG INHALER 8 GM IH SCH ×2 (07:16→18:25)
[2020-02-16 07:17] LABS: ALKALINE PHOSPHATASE 71 U/L (40-136)
[2020-02-16 07:18] LABS: CREATININE SERUM 0.57 MG/DL (0.60-1.30); GFR ESTIMATED > 60
[2020-02-16 07:19] LABS: BUN/CREATININE RATIO 28
[2020-02-16 07:21] LABS: ALANINE AMINOTRANSFERASE 30 U/L (0-55)
[2020-02-16] MEDS: PANTOPRAZOLE 40 MG (PROTONIX) TAB PO SCH (08:39)
[2020-02-16] MEDS: FERROUS SULF 325 MG (IRON) TAB PO SCH ×2 (08:39→17:13)
[2020-02-16] MEDS: risperiDONE 0.25 MG (RisperDAL) TAB PO SCH ×2 (08:39→21:08)
[2020-02-16] MEDS: guaiFENesin (MUCINEX) 600 MG TAB PO SCH ×2 (08:39→21:07)
[2020-02-16] MEDS: DIGOXIN 0.25 MG (LANOXIN) TAB PO SCH (08:39)
[2020-02-16] MEDS: GABAPENTIN 100 MG (NEURONTIN) CAP PO SCH ×3 (08:39→21:08)
[2020-02-16] MEDS: FOLIC ACID 1 MG TAB PO SCH (08:39)
[2020-02-16] MEDS: polyethylene glycoL POWDER 17 GM (MIRALAX) PACK PO SCH ×2 (08:41→21:12)
[2020-02-16] MEDS: SENNA W/DOCUSATE (SENOKOT S) TABLET PO SCH ×2 (08:41→21:12)
[2020-02-16] MEDS: DOCUSATE SODIUM 100 MG (COLACE) CAP PO SCH ×2 (08:41→21:07)
--- NOTE | 2020-02-16 09:01 | Cardiology Progress Note ---
Subjective Date Seen by Provider: Feb 16, 2020 Time Seen by Provider: 09:00 Subjective/Events-last exam Patient sitting up in bed, c/o diffuse abdominal pain and bloating this morning. Reports last BM yesterday and has been passing gas. Denies any chest pain or dyspnea. Objective-Cardiology Exam Last Set of Vital Signs Vital Signs 02/16/20 02/16/20 05:45 07:17 Temp 36.9 Pulse 96 Resp 18 B/P (MAP) 107/65 (79) Pulse Ox 94 O2 Delivery Nasal Cannula O2 Flow Rate 2.00 Capillary Refill : Less Than 3 Seconds I&O Intake and Output 02/16/20 00:00 Intake Total 2450 ml Output Total 3485 ml Balance -1035 ml Intake Oral 2450 ml Output Urine Total 3485 ml # Bowel Movements 1 General: Alert, Oriented X3, Cooperative HEENT: Atraumatic, PERRLA Neck: Supple, No JVD, No Thyromegaly Lungs: Clear to Auscultation, Normal Air Movement Heart: Regular Rate, Normal S1, Normal S2, No Murmurs, Other (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) Abdomen: Normal Bowel Sounds, Soft, No Tenderness, No Hepatosplenomegaly, No Masses Extremities: No Clubbing, No Cyanosis, No Edema, Normal Pulses, No Tenderness/Swelling Skin: No Rashes, No Breakdown, No Significant Lesion Neuro: Normal Gait, Normal Speech, Strength at 5/5 X4 Ext, Normal Tone, Sensation Intact Psych/Mental Status: Mental Status NL, Mood NL Results Lab Laboratory Tests 02/16/20 06:15 A/P-Cardiology Admission Diagnosis Shortness of breath Cough Chest pain Acute limb ischemia Assessment/Plan Pneumonia, improved, received cefepime, managed by primary care physician BLE numbness and pain, MRI of the lumbar spine showed some degenerative disease, there is no abdominal aneurysm. Feeling better today. Continue to monitor Chest pain, nonspecific etiology, cardiac catheterization carried out on January 30, 2020 showing mild to moderate coronary artery disease nonobstructive disease. Chest pain is unlikely to be cardiac, Anemia, managed by primary care team, H&H is monitored, EGD done with Dr. Wright reported gastritis and hiatal hernia. Managed by primary care team Status post acute limb ischemia due to embolization probably from atrial fibrillation. Angiogram was carried out showing total occlusion with thrombus in the distal SFA, received thrombolytics and reestablished flow. Maintained on Xarelto at this time. Continue to monitor PAF with RVR on 01/24/20, continue to monitor. Left upper lobe mass, Dr. Eugene following, planning for repeat CT Abdominal discomfort and bloating, management per Dr. Sinha and Dr. Wright. History of head trauma in or around 2017, was in coma for about a month. Has been on disability Tobaccoism, stopped smoking in December 2019, advised to continue to refrain Patient was seen and evaluated with Stacie, examination performed, management plan was discussed, agree with the current scribed note, I made few changes to the note using Italic font Patient is going home today, still having some pain in his leg and generalized weakness We'll arrange for follow-up as an outpatient, continue on current medication Clinical Quality Measures DVT/VTE Risk/Contraindication: Risk Factor Score Per Nursin RFS Level Per Nursing on Admit: 4+=Very High STACIE PATEL Feb 16, 2020 9:01 am THERESA BELLAMY MD Feb 16, 2020 9:52 am
--- NOTE | 2020-02-16 09:16 | NUR ---
MOHAN HERE TO SEE PATIENT. INFORMED OF DIGOXIN LAB- 0.56. ALSO, INFORMED OF TEMP- 37.8 AND NAUSEA WITH ABDOMINAL PAIN AND BLOATING.
--- NOTE | 2020-02-16 09:53 | NUR ---
UP TO THE BR. LARGE BM NOTED PER PATIENT AND THERAPY. PATIENT STATES THAT ZOFRAN HELPED NAUSEA AND ABDOMINAL PAIN HAS EASED SINCE HAVING A BM... BUT STILL THERE.
--- NOTE | 2020-02-16 11:07 | NUR ---
DR. CORTEZ NOTIFIED OF PROCALCITONIN 0.17. NO NEW ORDERS.
--- NOTE | 2020-02-16 12:51 | Occupational Ther Daily Note ---
OT Current Status-Daily Note Subjective Pt. reports that his stomach is upset and that he is dizzy. BP is taken and nursing notified. Mental Status/Objective Patient Orientation: Person, Place, Time, Situation ADL-Treatment Therapy Code Descriptions/Definitions Functional [place] Measure: 0=Not Assessed/NA 4=Minimal Assistance 1=Total Assistance 5=Supervision or Setup 2=Maximal Assistance 6=Modified [place] 3=Moderate Assistance 7=Complete IndependenceSCALE: Activities may be completed with or without assistive devices. 5-Xqnlwmjddt-apyrdya completes the activity by him/herself with no assistance from a helper. 5-Set-up or Clean-up Assistance-helper sets up or cleans up; patient completes activity. [place] assists only prior to or following the activity. 4-Supervision or Touching Assistance-helper provides verbal cues and/or touching/steadying and/or contact guard assistance as patient completes activity. Assistance may be provided throughout the activity or intermittently. 3-Partial/Moderate Assistance-helper does LESS THAN HALF the effort. [place] lifts, holds or supports trunk or limbs, but provides less than half the effort. 2-Substantial/Maximal Assistance-helper does MORE THAN HALF the effort. [place] lifts or holds trunk or limbs and provides more than half the effort. 8-Wnsvccfom-ryjkug does ALL the effort. Patient does none of the effort to complete the activity. Or, the assistance of 2 or more helpers is required for the patient to complete the activity. If activity was not attempted, code reason: 7-Patient Refused. 9-Not Applicable-not attempted and the patient did not perform the activity before the current illness, exacerbation or injury. 10-Not Attempted due to Environmental Limitations-(lack of equipment, weather restraints, etc.). 88-Not Attempted due to Medical Conditions or Safety Concerns. Eating (QC): 6 Oral Hygiene (QC): 5 (Set up to brush teeth.) Shower/Bathe Self (QC): 4 (CGA in stance.) Upper Body Dressing (QC): 5 (Set up) Lower Body Dressing (QC): 4 (CGA in stance.) On/Off Footwear: 4 Toileting Hygiene (QC): 4 Toilet Transfer (QC): 3 (Min assist to stand from toilet.) Pt. seen twice this a.m. Pt. on toilet when OT enters room. Pt. has cleansed self but needs assist to stand. Min assist to stand and pt. able to pull up pants. Pt. reports that he feels dizzy. Ambulates to sink and washes hands. Requests to lay down for a little bit. Ambulates to bed and transfers with SBA. OT takes BP. It is 134/83. HR is 111. Pt. rests for a little bit and OT comes back at later time. Pt. agrees to work with OT but declines showering. Agrees to sponge bathe. Completes sponge bath from side of bed. Please see quality codes above. After ADLs, pt. requests to lay down again. All needs met. Education OT Patient Education: Correct positioning, Modified ADL techniques, Progress toward Goal/Update tx plan, Purpose of tx/functional activities, Reviewed precautions, Rehab process, Transfer techniques Teaching Recipient: Patient Teaching Methods: Demonstration, Discussion Response to Teaching: Verbalize Understanding, Return Demonstration OT Short Term Goals Short Term Goals Time Frame: February 12, 2020 Eatin Oral hygiene: 4 Toileting hygiene: 4 Shower/bathe self: 4 Upper body dressin Lower body dressin Putting on/taking off footwear: 5 OT Seed Laboratory Assistant Goals Shelter Goals Time Frame: Feb 19, 2020 Eating (QC): 6 Oral Hygiene (QC): 6 Toileting Hygiene (QC): 6 Shower/Bathe Self (QC): 5 Upper Body Dressing (QC): 6 Lower Body Dressing (QC): 6 On/Off Footwear (QC): 6 Additional Goals: 1-Demonstrate ADL Tasks, 2-Verbalize Understanding, 3- ImproveStrength/Lorena 1=Demonstrate adherence to instructed precautions during ADL tasks. 2=Patient will verbalize/demonstrate understanding of assistive devices/modifications for ADL. 3=Patient will improve strength/tolerance for activity to enable patient to perform ADL's. OT Education/Plan Problem List/Assessment Assessment: Decreased Activ Tolerance, Decreased UE Strength, Dependent Transfers, Impaired Bed Mobility, Impaired Funct Balance, Impaired I ADL's, Impaired Self-Care Skills Discharge Recommendations Plan/Recommendations: Continue POC Therapy Discharge Recommendati: 24 Hour Supervision Treatment Plan/Plan of Care Treatment,Training & Education: Yes Patient would benefit from OT for education, treatment and training to promote independence in ADL's, mobility, safety and/or upper extremity function for ADL's. Plan of Care: ADL Retraining, Functional Mobility, Group Exercise/Act as Ind, UE Funct Exercise/Act Treatment Duration: Feb 19, 2020 Frequency: At least 5 of 7 days/Wk (IRF) Estimated Hrs Per Day: Other (Covid waiver) Agreement: Yes Rehab Potential: Fair Time/GCodes Start Time: 09:05 Stop Time: 09:50 Total Time Billed (hr/min): 30 Billed Treatment Time 4018-0579 1, ADL x 10minutes [id number] 1, ADL x 20minutes REGGIE GARCIA OT Feb 16, 2020 12:51
--- NOTE | 2020-02-16 12:51 | Physical Therapy Daily Note ---
PT Daily Note-Current Subjective Patient in bed pre tx, agrees to PT, voices no complaints of pain at rest. Appearance Patient BTB post tx with nurse call, phone, tray, all needs met. Mental Status Patient Orientation: Person, Place, Situation Attachments: Oxygen Transfers SCALE: Activities may be completed with or without assistive devices. 7-Weteowfnsm-yfvqvpl completes the activity by him/herself with no assistance from a helper. 5-Set-up or Clean-up Assistance-helper sets up or cleans up; patient completes activity. [place] assists only prior to or following the activity. 4-Supervision or Touching Assistance-helper provides verbal cues and/or touching/steadying and/or contact guard assistance as patient completes activity. Assistance may be provided throughout the activity or intermittently. 3-Partial/Moderate Assistance-helper does LESS THAN HALF the effort. [place] lifts, holds or supports trunk or limbs, but provides less than half the effort. 2-Substantial/Maximal Assistance-helper does MORE THAN HALF the effort. [place] lifts or holds trunk or limbs and provides more than half the effort. 5-Htqxvraaq-jtdzxr does ALL the effort. Patient does none of the effort to complete the activity. Or, the assistance of 2 or more helpers is required for the patient to complete the activity. If activity was not attempted, code reason: 7-Patient Refused. 9-Not Applicable-not attempted and the patient did not perform the activity before the current illness, exacerbation or injury. 10-Not Attempted due to Environmental Limitations-(lack of equipment, weather restraints, etc.). 88-Not Attempted due to Medical Conditions or Safety Concerns. Roll Left & Right (QC): 6 Sit to Lying (QC): 6 Lying to Sitting/Side of Bed(Q: 6 Sit to Stand (QC): 4 Chair/Qqd-wu-Lazfw Xfer(QC): 4 Toilet Transfer (QC): 4 Car Transfer (QC): 4 Patient performs bed mobility with independence, supine <-> sit with independence, sit<-> stand SBA, transfers SBA, car transfer SBA. Occasional cues for positioning or how to avoid getting tangled in his O2 line. Weight Bearing Right Lower Extremity: Right Weight Bearing/Tolerated Left Lower Extremity: Left Weight Bearing/Tolerated Gait Training Distance: 150', 120' Walk 10 feet (QC): 4 Walk 50 ft with 2 Turns(QC): 4 Walk 150 ft (QC): 4 Walking 10ft/uneven surface-QC: 4 Gait Persons Needed: 1 Gait Assistive Device: FWW Patient can ambulate 150' with a rolling walker with SBA (including 50' with at least 2 turns of 90 degrees and 10' over an uneven surface). Patient ambulates slowly but steady. Wheelchair Training Does the Pt Use a Wheelchair?: No Stair Training Stair Training: Handrails/: 2 handrails #of Steps: 4 1 Step (curb) (QC): 3 4 Steps (QC): 3 Stairs: Pattern: Step to Patient can go up and down 4 steps using 2 handrails with min assist. Patient needs cues for foot placement and assist descending due to BLE weakness. Balance Picking up an Object (QC): 4 Exercises LAQ alternating for 5 min NuStep Minutes: 15 NuStep Workload: 4 Treatments bed mobility and transfers, ambulation, functional strengthening, stair training Assessment Current Status: Fair Progress slowly improving strength and mobility PT Short Term Goals Short Term Goals Time Frame: February 12, 2020 Roll Left & Right: 6 Sit to lyin Lying to sitting on side of be: 6 Sit to stand: 4 Chair/ijw-zw-amahr transfer: 4 Walk 10 feet: 4 Walk 50 feet with two turns: 4 PT Calender Supervisor Goals Half-Way Goals PT Half-Way Goals Time Frame: Feb 26, 2020 Roll Left & Right (QC): 6 Sit to Lying (QC): 6 Lying-Sitting on Side/Bed(QC): 6 Sit to Stand (QC): 5 Chair/Cvk-gd-Ynxqu Xfer(QC): 5 Toilet Transfer (QC): 5 Car Transfer (QC): 5 Does the Patient Walk: Yes Walk 10 feet (QC): 5 Walk 50ft with 2 Turns (QC): 5 Walk 150 ft (QC): 5 Walking 10ft on Uneven Surface: 5 1 Step (curb) (QC): 4 4 Steps (QC): 4 12 Steps (QC): 88 Picking up an Object (QC): 88 Wheel 50 feet with 2 turns (QC: 6 Wheel 150 feet: 6 PT Plan Problem List Problem List: Activity Tolerance, Functional Strength, Safety, Balance, Gait, Transfer Treatment/Plan Treatment Plan: Continue Plan of Care Treatment Plan: Education, Functional Activity Lorena, Functional Strength, Gait, Safety, Therapeutic Exercise, Transfers Treatment Duration: Feb 26, 2020 Frequency: tuyet melendez, 60 min per day Estimated Hrs Per Day: 1 hour per day Patient and/or Family Agrees t: Yes Safety Risks/Education Patient Education: Gait Training, Transfer Techniques, Steps, Correct Positioning, Safety Issues Teaching Recipient: Patient Teaching Methods: Demonstration, Discussion Response to Teaching: Reinforcement Needed Time/GCodes Time In: 1100 Time Out: 1200 Total Billed Treatment Time: 60 Total Billed Treatment 1 visit GT 15' FA 25' EX 20' MARKO REID PT Feb 16, 2020 12:51
--- NOTE | 2020-02-16 13:20 | NUR ---
CM/SS DISCHARGE PLANNING [facility] has accepted patient for Medicare skilled placement tomorrow, transport will likely be late a.m. Facility understands to bring wheelchair and O2. IMM2 delivered, reviewed, signed, charted. Patient shared that he and his brother now plan to live together permanently at brother's [facility] and keep his land at [facility] for recreation, camping, hunting, fishing. [facility] Assessment remains suspended at this time due to Covid 19 protocols.
--- NOTE | 2020-02-16 14:00 | PM&R Progress Note ---
Subjective HPI/CC On Admission Date Seen by Provider: Feb 16, 2020 Time Seen by Provider: 09:00 Subjective/Events-last exam Low grade fever of 100, conferred with Dr Eugene and he started him on Omnicef 300mg PO BID for 7 days Procalcitonin of 0.17 Had a lot of bloating and then evacuated a large BM [facility] will take him tomorrow Pt so chronically debilitated, so many somatic complaints, very difficult to preclude anything but intermediate poor prognosis considering his young age of 59 now going to a assisted Checked meds and labs Reviewed therapy notes Conferred with tin roofer of Systems General: Fatigue Gastrointestinal: Nausea Objective Exam Vital Signs Vital Signs Date Time Temp Pulse Resp B/P (MAP) Pulse Ox O2 Delivery O2 Flow Rate FiO2 02/16/20 21:15 Nasal Cannula 2.00 02/16/20 18:27 91 02/16/20 16:30 37.3 98 18 112/71 (85) Capillary Refill : Less Than 3 Seconds General Appearance: No Apparent Distress, WD/WN, Anxious, Chronically ill, Cachetic HEENT: PERRL/EOMI, Normal ENT Inspection, Pharynx Normal Neck: Full Range of Motion, Normal Inspection, Non Tender, Supple, Carotid Bruit Respiratory: Chest Non Tender, Lungs Clear, No Accessory Muscle Use, No Respiratory Distress, Decreased Breath Sounds Cardiovascular: Regular Rate, Rhythm, No Edema, No Gallop, No JVD, No Murmur, Normal Peripheral Pulses Gastrointestinal: Normal Bowel Sounds, No Organomegaly, No Pulsatile Mass, Non Tender, Soft Back: Normal Inspection, No CVA Tenderness, No Vertebral Tenderness Extremity: Normal Capillary Refill, Normal Inspection, Normal Range of Motion, Non Tender, No Calf Tenderness, No Pedal Edema Neurologic/Psychiatric: Alert, Oriented x3, No Motor/Sensory Deficits, Normal Mood/Affect, Motor Weakness (all extremities due to muscle wasting) Skin: Normal Color, Warm/Dry Lymphatic: No Adenopathy Results/Procedures Lab Laboratory Tests 02/16/20 06:15 Patient resulted labs reviewed. FIM Transfers Therapy Code Descriptions/Definitions Functional [place] Measure: 0=Not Assessed/NA 4=Minimal Assistance 1=Total Assistance 5=Supervision or Setup 2=Maximal Assistance 6=Modified [place] 3=Moderate Assistance 7=Complete IndependenceSCALE: Activities may be completed with or without assistive devices. 8-Mriuydsoiz-fmvzarv completes the activity by him/herself with no assistance from a helper. 5-Set-up or Clean-up Assistance-helper sets up or cleans up; patient completes activity. [place] assists only prior to or following the activity. 4-Supervision or Touching Assistance-helper provides verbal cues and/or touching/steadying and/or contact guard assistance as patient completes activity. Assistance may be provided throughout the activity or intermittently. 3-Partial/Moderate Assistance-helper does LESS THAN HALF the effort. [place] lifts, holds or supports trunk or limbs, but provides less than half the effort. 2-Substantial/Maximal Assistance-helper does MORE THAN HALF the effort. [place] lifts or holds trunk or limbs and provides more than half the effort. 9-Rjilszmkd-xbxpjf does ALL the effort. Patient does none of the effort to complete the activity. Or, the assistance of 2 or more helpers is required for t he patient to complete the activity. If activity was not attempted, code reason: 7-Patient Refused. 9-Not Applicable-not attempted and the patient did not perform the activity before the current illness, exacerbation or injury. 10-Not Attempted due to Environmental Limitations-(lack of equipment, weather restraints, etc.). 88-Not Attempted due to Medical Conditions or Safety Concerns. Roll Left to Right (QC): 6 Sit to Lying (QC): 6 Sit to Stand (QC): 4 Chair/Uwf-zq-Llpbe Xfer(QC): 4 Car Transfer (QC): 4 Gait Training Does the Patient Walk?: Yes Distance: 150', 120' Walk 10 feet (QC): 4 Walk 50 ft with 2 Turns(QC): 4 Walk 150 ft (QC): 4 Walking 10ft/uneven surface-QC: 4 Gait Persons Needed: 1 Gait Assistive Device: FWW Wheelchair Training Does the Pt Use a Wheelchair?: No Distance: 120'x2 Wheel 50 ft with 2 turns (QC): 4 Wheel 150 ft (QC): 4 Type of Wheelchair: Manual Stair Training Stair Training: Handrails/: 2 handrails #of Steps: 4 1 Step (curb) (QC): 3 4 Steps (QC): 3 12 Steps (QC): 88 Stairs: Pattern: Step to Balance Picking up an Object (QC): 4 ADL-Treatment Eating (QC): 6 Oral Hygiene (QC): 5 (Set up to brush teeth.) Shower/Bathe Self (QC): 4 (CGA in stance.) Upper Body Dressing (QC): 5 (Set up) Lower Body Dressing (QC): 4 (CGA in stance.) On/Off Footwear (QC): 4 Toileting Hygiene (QC): 4 Toilet Transfer (QC): 3 (Min assist to stand from toilet.) Assessment/Plan Assessment and Plan Assess & Plan/Chief Complaint Assessment: Myopathy PNA facility acquired AECOPD O2 dependent AF CAD PVD Cachexia Lung mass s/p VDRF Right toes dry gangrene consulted Dr Wright Elevated wbc count rechecked CT chest and improved and DC steroids Bilateral leg weakness MRI reveals DJD of spine Somatic complaints Plan: IRF protocol Monitor BP IV Abx completed Fall risk O2 titration Pain meds CT chest with labs reviewed [facility] at [place] tomorrow (1) Myopathy (2) Acute occlusion of artery of lower extremity due to thromboembolism Status: Acute (3) Acute respiratory failure with hypoxia Status: Acute (4) Atrial fibrillation with rapid ventricular response Status: Acute (5) Severe protein-calorie malnutrition Status: Acute (6) Pneumonia Status: Acute (7) Debility Status: Acute (8) Iron deficiency anemia Status: Chronic (9) Lung mass Status: Acute (10) Tobacco abuse Status: Chronic (11) Folic acid deficiency Status: Chronic (12) Anemia of chronic disease Status: Chronic (13) COPD (chronic obstructive pulmonary disease) Status: Chronic LOI CORTEZ DO Feb 16, 2020 13:59
--- NOTE | 2020-02-16 14:30 | NUR ---
DR. MIJARES TO THE FLOOR WITH ORDERS TO PROCEED WITH DC TO [facility] TOMORROW, 02/17/20. ORDERS TO F/U IN HIS OFFICE NEXT WEEK. F/U APPOINTMENT SCHEDULED FOR 02/24/20 AT 10:15 AM.
--- NOTE | 2020-02-16 14:35 | Physical Therapy Daily Note ---
PT Daily Note-Current Subjective Patient in bed pre tx, agrees to PT but states he has 10/10 pain in both legs, agrees to exercises in bed, states nurse is aware of his pain. Appearance Patient in bed post tx with nurse call, phone, tray, all needs met. Mental Status Patient Orientation: Person, Place, Situation Attachments: Oxygen Transfers SCALE: Activities may be completed with or without assistive devices. 9-Utkoogfzua-bmiopyg completes the activity by him/herself with no assistance from a helper. 5-Set-up or Clean-up Assistance-helper sets up or cleans up; patient completes activity. [place] assists only prior to or following the activity. 4-Supervision or Touching Assistance-helper provides verbal cues and/or touching/steadying and/or contact guard assistance as patient completes activity. Assistance may be provided throughout the activity or intermittently. 3-Partial/Moderate Assistance-helper does LESS THAN HALF the effort. [place] lifts, holds or supports trunk or limbs, but provides less than half the effort. 2-Substantial/Maximal Assistance-helper does MORE THAN HALF the effort. [place] lifts or holds trunk or limbs and provides more than half the effort. 6-Povdwgftm-sucdjj does ALL the effort. Patient does none of the effort to complete the activity. Or, the assistance of 2 or more helpers is required for the patient to complete the activity. If activity was not attempted, code reason: 7-Patient Refused. 9-Not Applicable-not attempted and the patient did not perform the activity before the current illness, exacerbation or injury. 10-Not Attempted due to Environmental Limitations-(lack of equipment, weather restraints, etc.). 88-Not Attempted due to Medical Conditions or Safety Concerns. Weight Bearing Right Lower Extremity: Right Weight Bearing/Tolerated Left Lower Extremity: Left Weight Bearing/Tolerated Exercises Supine Ex: Ankle pumps, Quad Set, Glut sets, Heel Slides, Short Arc Quads, Straight leg raise, Hip abd/add Supine Reps: 20 Treatments AROM/strengthening BLE Assessment Current Status: Fair Progress slowly improving LE strength, patient performs exercises very slowly but with good form PT Short Term Goals Short Term Goals Time Frame: February 12, 2020 Roll Left & Right: 6 Sit to lyin Lying to sitting on side of be: 6 Sit to stand: 4 Chair/tzl-ez-ovdwn transfer: 4 Walk 10 feet: 4 Walk 50 feet with two turns: 4 PT Welder Railcar Mechanic Goals Intermediate Goals PT Intermediate Goals Time Frame: Feb 26, 2020 Roll Left & Right (QC): 6 Sit to Lying (QC): 6 Lying-Sitting on Side/Bed(QC): 6 Sit to Stand (QC): 5 Chair/Vmy-mh-Mlkci Xfer(QC): 5 Toilet Transfer (QC): 5 Car Transfer (QC): 5 Does the Patient Walk: Yes Walk 10 feet (QC): 5 Walk 50ft with 2 Turns (QC): 5 Walk 150 ft (QC): 5 Walking 10ft on Uneven Surface: 5 1 Step (curb) (QC): 4 4 Steps (QC): 4 12 Steps (QC): 88 Picking up an Object (QC): 88 Wheel 50 feet with 2 turns (QC: 6 Wheel 150 feet: 6 PT Plan Problem List Problem List: Activity Tolerance, Functional Strength, Safety, Balance, Gait, Transfer, ROM Treatment/Plan Treatment Plan: Continue Plan of Care Treatment Plan: Education, Functional Activity [place], Functional Strength, Gait, Safety, Therapeutic Exercise, Transfers Treatment Duration: Feb 26, 2020 Frequency: tuyet melendez, 60 min per day Estimated Hrs Per Day: 1 hour per day Patient and/or Family Agrees t: Yes Safety Risks/Education Patient Education: Correct Positioning, Safety Issues Teaching Recipient: Patient Teaching Methods: Demonstration, Discussion Response to Teaching: Reinforcement Needed Time/GCodes Time In: 1415 Time Out: 1435 Total Billed Treatment Time: 20 Total Billed Treatment 1 visit EX 20' MARKO REID PT Feb 16, 2020 14:35
--- NOTE | 2020-02-16 14:42 | Occupational Ther Daily Note ---
OT Current Status-Daily Note Subjective Pt. reports 11/10 pain at end of treatment. OT asked nursing for pain medication. Appearance Pt. in bed. Agrees to work with OT. Mental Status/Objective Patient Orientation: Person, Place, Time, Situation Attachments: Oxygen ADL-Treatment Therapy Code Descriptions/Definitions Functional [place] Measure: 0=Not Assessed/NA 4=Minimal Assistance 1=Total Assistance 5=Supervision or Setup 2=Maximal Assistance 6=Modified [place] 3=Moderate Assistance 7=Complete IndependenceSCALE: Activities may be completed with or without assistive devices. 5-Rwxiwfgdnh-tprpdxs completes the activity by him/herself with no assistance fr om a helper. 5-Set-up or Clean-up Assistance-helper sets up or cleans up; patient completes activity. [place] assists only prior to or following the activity. 4-Supervision or Touching Assistance-helper provides verbal cues and/or touching/steadying and/or contact guard assistance as patient completes activity. Assistance may be provided throughout the activity or intermittently. 3-Partial/Moderate Assistance-helper does LESS THAN HALF the effort. [place] lifts, holds or supports trunk or limbs, but provides less than half the effort. 2-Substantial/Maximal Assistance-helper does MORE THAN HALF the effort. [place] lifts or holds trunk or limbs and provides more than half the effort. 2-Fuysiwazs-ficzmx does ALL the effort. Patient does none of the effort to complete the activity. Or, the assistance of 2 or more helpers is required for the patient to complete the activity. If activity was not attempted, code reason: 7-Patient Refused. 9-Not Applicable-not attempted and the patient did not perform the activity before the current illness, exacerbation or injury. 10-Not Attempted due to Environmental Limitations-(lack of equipment, weather restraints, etc.). 88-Not Attempted due to Medical Conditions or Safety Concerns. Eating (QC): 6 Other Treatment Pt. transfers supine-sit with SBA. Transfers to wheelchair with min/CGA. Pt. propels self to therapy gym. Pt. completed 5 minutes on arm bike at min resistance for increased overall endurance and strength. Pt. required rest break at end of this task. Donned 1 lb. wrist weight and completed arm arc and nut/bolt activity to work on strength and endurance. Pt. reports that his back is hurting in [place] and that he would like to lay down. Pt. propelled back to room in wheelchair and transferred to bed. Transferred to bed with SBA. Pt. requests pain medication. Notified nursing. Education OT Patient Education: Correct positioning, Exercise program, Modified ADL techniques, Progress toward Goal/Update tx plan, Purpose of tx/functional activities, Reviewed precautions, Rehab process, Transfer techniques Teaching Recipient: Patient Teaching Methods: Demonstration, Discussion Response to Teaching: Verbalize Understanding, Return Demonstration OT Short Term Goals Short Term Goals Time Frame: February 12, 2020 Eatin Oral hygiene: 4 Toileting hygiene: 4 Shower/bathe self: 4 Upper body dressin Lower body dressin Putting on/taking off footwear: 5 OT Jail Goals Jail Goals Time Frame: Feb 19, 2020 Eating (QC): 6 Oral Hygiene (QC): 6 Toileting Hygiene (QC): 6 Shower/Bathe Self (QC): 5 Upper Body Dressing (QC): 6 Lower Body Dressing (QC): 6 On/Off Footwear (QC): 6 Additional Goals: 1-Demonstrate ADL Tasks, 2-Verbalize Understanding, 3-ImproveStrength/[place] 1=Demonstrate adherence to instructed precautions during ADL tasks. 2=Patient will verbalize/demonstrate understanding of assistive devices/modifications for ADL. 3=Patient will improve strength/tolerance for activity to enable patient to perform ADL's. OT Education/Plan Problem List/Assessment Assessment: Decreased Activ Tolerance, Impaired I ADL's, Impaired Self-Care Skills Discharge Recommendations Plan/Recommendations: Continue POC Therapy Discharge Recommendati: Post Acute OT Treatment Plan/Plan of Care Treatment,Training & Education: Yes Patient would benefit from OT for education, treatment and training to promote independence in ADL's, mobility, safety and/or upper extremity function for ADL's. Plan of Care: ADL Retraining, Functional Mobility, Group Exercise/Act as Ind, UE Funct Exercise/Act Treatment Duration: Feb 19, 2020 Frequency: At least 5 of 7 days/Wk (IRF) Estimated Hrs Per Day: Other (Covid waiver) Agreement: Yes Rehab Potential: Fair Time/GCodes Start Time: 13:35 Stop Time: 14:10 Total Time Billed (hr/min): 35 Billed Treatment Time 1, Ex x 15minutes, FA x 20minutes REGGIE GARCIA OT Feb 16, 2020 14:42
[2020-02-16 15:05] LABS: BILIRUBIN,URINE NEGATIVE (NEGATIVE); CLARITY,URINE CLEAR; COLOR,URINE YELLOW; GLUCOSE, URINE (UA) NEGATIVE (NEGATIVE); KETONES,URINE NEGATIVE (NEGATIVE); LEUKOCYTE ESTERASE ,URINE NEGATIVE (NEGATIVE); NITRITE,URINE NEGATIVE (NEGATIVE); PROTEIN,URINE NEGATIVE (NEGATIVE)
[2020-02-16 15:21] LABS: BACTERIA,URINE NEGATIVE /HPF; SQUAMOUS EPITHELIAL CELL,UR RARE /HPF
--- NOTE | 2020-02-16 16:23 | Diagnostic Imaging Report ---
EXAMINATION: PA and lateral chest at 3:54 PM. FINDINGS: The heart size is within normal limits and stable when compared to 02/06/2020. The abnormal parenchymal densities involving the right lung base, right midlung, and the left midlung seen on the prior study are less prominent. These findings are similar to the recent CT chest exam of 02/12/2020. There is no significant pleural effusion identified. The heart is stable in size. The mediastinum is not widened. The osseous structures are intact. The deformity of the right clavicle seen previously is again evident. The central venous catheter on the left noted on the prior exam remains stable in position. IMPRESSION: The appearance of the chest has improved since 02/06/2020 as each mid lung and the right middle lobe do seem better aerated. There is still residual pneumonia/atelectasis present bilaterally, however. A followup study would be recommended for continued evaluation. Dictated by: Dictated on workstation # [id number]
[2020-02-16 16:30] VITALS: BP 112/71
[2020-02-16] MEDS: RIVAROXABAN 20 MG TABLET (XARELTO) PO SCH (17:13)
--- NOTE | 2020-02-16 18:13 | NUR ---
PATIENT REPORTS NO ABDOMINAL PAIN SINCE BM THIS AM.
--- NOTE | 2020-02-16 19:08 | NUR ---
bedside report received from SMITH MADRIGAL, assume care of pt
[2020-02-16] MEDS: CEFDINIR 300 MG (OMNICEF) CAP PO SCH (21:07)
[2020-02-16] MEDS: ALPRAZolam 0.25 MG (XANAX) TAB PO PRN (21:12)
--- NOTE | 2020-02-16 21:12 | NUR ---
pt took Colace, refused miralax & Senokot, c/o pain level 9/10 on numeric scale, oxyir 5mg given
[2020-02-16] MEDS ORDERED: CEFD300C3 PO (21:59)
--- NOTE | 2020-02-16 22:02 | NUR ---
rates paint 5/10 on numeric scale
[2020-02-17] MEDS: RT-ALBUTEROL/IPRATROPIUM 3 ML (DUONEB) VIAL INH SCH ×3 (02:01→09:59)
[2020-02-17 06:00] VITALS: BP 102/66
--- NOTE | 2020-02-17 06:05 | NUR ---
c/o pain level 5/10 on numeric scale, oxyir 5mg given
[2020-02-17] MEDS: CATHETER FLUSH 10 ML SYR IV SCH (06:06)
[2020-02-17] MEDS: MULTIVIT W/MINERALS TAB (THERAGRAN M) PO SCH (06:44)
--- NOTE | 2020-02-17 06:45 | NUR ---
rates pain level 4/10 on numeric scale
--- NOTE | 2020-02-17 07:23 | NUR ---
HOME O2 QUALIFICATION. Addendum: 02/17/20 at 0724 by DAVID ANNE RT Amended: Links added.
--- NOTE | 2020-02-17 08:28 | Cardiology Progress Note ---
Subjective Date Seen by Provider: Feb 17, 2020 Time Seen by Provider: 08:27 Subjective/Events-last exam Patient is sitting up in bed, no new complaints. Denies any chest pain or dy spnea. Review of Systems General: No Chills, No Night Sweats, No Fatigue, No Malaise, No Appetite, No Other HEENT: No Head Aches, No Visual Changes, No Eye Pain, No Ear Pain, No Dysphasia, No Sinus Congestion, No Post Nasal Drip, No Sore Throat, No Other Pulmonary: No Dyspnea, No Cough, No Pleuritic Chest Pain, No Other Cardiovascular: No: Chest Pain, Palpitations, Orthopnea, Paroxysmal Noc. Dyspnea, Edema, Lt Headedness, Other Objective-Cardiology Exam Last Set of Vital Signs Vital Signs 02/17/20 02/17/20 06:00 08:34 Temp 37.6 Pulse 99 Resp 20 B/P (MAP) 102/66 (78) O2 Delivery Nasal Cannula O2 Flow Rate 3.00 Capillary Refill : Less Than 3 Seconds I&O Intake and Output 02/17/20 00:00 Intake Total 1780 ml Output Total 3175 ml Balance -1395 ml Intake Oral 1780 ml Output Urine Total 3175 ml # Bowel Movements 1 General: Alert, Oriented X3, Cooperative HEENT: Atraumatic, PERRLA Neck: Supple, No JVD, No Thyromegaly Lungs: Clear to Auscultation, Normal Air Movement Heart: Regular Rate, Normal S1, Normal S2, No Murmurs, Other (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) Abdomen: Normal Bowel Sounds, Soft, No Tenderness, No Hepatosplenomegaly, No M asses Extremities: No Clubbing, No Cyanosis, No Edema, Normal Pulses, No Tenderness/Swelling Skin: No Rashes, No Breakdown, No Significant Lesion Neuro: Normal Gait, Normal Speech, Strength at 5/5 X4 Ext, Normal Tone, Sensation Intact Psych/Mental Status: Mental Status NL, Mood NL A/P-Cardiology Admission Diagnosis Shortness of breath Cough Chest pain Acute limb ischemia Assessment/Plan Pneumonia, improved, received cefepime, managed by primary care physician BLE numbness and pain, MRI of the lumbar spine showed some degenerative disease, there is no abdominal aneurysm. Feeling better today. Continue to monitor Chest pain, nonspecific etiology, cardiac catheterization carried out on January 30, 2020 showing mild to moderate coronary artery disease nonobstructive disease. Chest pain is unlikely to be cardiac, Anemia, managed by primary care team, H&H is monitored, EGD done with Dr. Wright reported gastritis and hiatal hernia. Managed by primary care team Status post acute limb ischemia due to embolization probably from atrial fibrillation. Angiogram was carried out showing total occlusion with thrombus in the distal SFA, received thrombolytics and reestablished flow. Maintained on Xarelto at this time. Continue to monitor PAF with RVR on 01/24/20, continue to monitor. Left upper lobe mass, Dr. Eugene following, planning for repeat CT Abdominal discomfort and bloating, management per Dr. Sinha and Dr. Wright. History of head trauma in or around 2017, was in coma for about a month. Has been on disability Tobaccoism, stopped smoking in December 2019, advised to continue to refrain Patient was seen and evaluated with Stacie, examination performed, management plan was discussed, agree with the current scribed note, I made few changes to the note using Italic font Patient was seen at bedside, sitting comfortably, no new complaint We'll arrange for follow-up as an outpatient Educated about compliance with medication Clinical Quality Measures DVT/VTE Risk/Contraindication: Risk Factor Score Per Nursin RFS Level Per Nursing on Admit: 4+=Very High STACIE PATEL Feb 17, 2020 8:28 am THERESA BELLAMY MD Feb 17, 2020 9:14 am
[2020-02-17] MEDS: guaiFENesin (MUCINEX) 600 MG TAB PO SCH (08:29)
[2020-02-17] MEDS: SENNA W/DOCUSATE (SENOKOT S) TABLET PO SCH (08:29)
[2020-02-17] MEDS: FOLIC ACID 1 MG TAB PO SCH (08:29)
[2020-02-17] MEDS: FERROUS SULF 325 MG (IRON) TAB PO SCH (08:29)
[2020-02-17] MEDS: DOCUSATE SODIUM 100 MG (COLACE) CAP PO SCH (08:29)
[2020-02-17] MEDS: CEFDINIR 300 MG (OMNICEF) CAP PO SCH (08:29)
[2020-02-17] MEDS: PANTOPRAZOLE 40 MG (PROTONIX) TAB PO SCH (08:29)
[2020-02-17] MEDS: risperiDONE 0.25 MG (RisperDAL) TAB PO SCH (08:29)
[2020-02-17] MEDS: GABAPENTIN 100 MG (NEURONTIN) CAP PO SCH (08:30)
[2020-02-17] MEDS: DIGOXIN 0.25 MG (LANOXIN) TAB PO SCH (08:30)
[2020-02-17] MEDS: polyethylene glycoL POWDER 17 GM (MIRALAX) PACK PO SCH (08:32)
--- NOTE | 2020-02-17 08:51 | Discharge Summary ---
Diagnosis/Chief Complaint Date of Admission February 05, 2020 at 10:15 Date of Discharge Discharge Date: Feb 16, 2020 Discharge Diagnosis Assessment: Myopathy PNA facility acquired AECOPD O2 dependent AF CAD PVD Cachexia Lung mass s/p VDRF Right toes dry gangrene consulted Dr Wright Elevated wbc count rechecked CT chest and improved and DC steroids Bilateral leg weakness MRI reveals DJD of spine Somatic complaints Plan: IRF protocol Monitor BP IV Abx completed Fall risk O2 titration Pain meds CT chest with labs reviewed [facility] at [facility] today (1) Myopathy (2) Acute occlusion of artery of lower extremity due to thromboembolism Status: Acute (3) Acute respiratory failure with hypoxia Status: Acute (4) Atrial fibrillation with rapid ventricular response Status: Acute (5) Severe protein-calorie malnutrition Status: Acute (6) Pneumonia Status: Acute (7) Debility Status: Acute (8) Iron deficiency anemia Status: Chronic (9) Lung mass Status: Acute (10) Tobacco abuse Status: Chronic (11) Folic acid deficiency Status: Chronic (12) Anemia of chronic disease Status: Chronic (13) COPD (chronic obstructive pulmonary disease) Status: Chronic Discharge Summary Discharge Physical Examination Allergies: Coded Allergies: No Known Drug Allergies (Verified , 07/11/09) Vitals & I&Os Vital Signs Date Time Temp Pulse Resp B/P (MAP) Pulse Ox O2 Delivery O2 Flow Rate FiO2 02/17/20 12:07 37.6 99 20 102/66 91 Nasal Cannula 3.00 General Appearance: Alert, Oriented X3, Cooperative Respiratory: Clear to Auscultation Cardiovascular: Regular Rate Neuro: Normal Gait, Normal Speech, Strength at 5/5 X4 Ext Psych/Mental Status: Mental Status NL Hospital Course Was the Problem List Reviewed?: Yes Hospital course: Pt had a lengthy hospital inpatient rehab course for 12 days after he was admitted for critical illness and myopathy. He did complete antibiotics, CT chest showed lung match much improved and he did require another round of antibiotics at discharge due to slight fever recurrence but no evidence of any sepsis or worsening status. Overall he was somewhat motivated to get better but still needed a group home at discharge, but he did participate in all therapies. He did require a lot of pain medication for Gangrene of his toes from the arterial thrombosis that was diagnosed and managed acutely in the ICU. Overall his prognosis remains poor buttermaker continuous churn given the severe debility and young age at 59. Labs (last 24 hrs) Laboratory Tests 02/06/20 06:53: White Blood Count 14.6H, Red Blood Count 2.97L, Hemoglobin 9.3L, Hematocrit 30L, Mean Corpuscular Volume 101H, Mean Corpuscular Hemoglobin 31, Mean Corpuscular Hemoglobin Concent 31L, Red Cell Distribution Width 18.4H, Platelet Count 642H, Mean Platelet Volume 9.1, Neutrophils (%) (Auto) 81H, Lymphocytes (%) (Auto) 9L, Monocytes (%) (Auto) 8, Eosinophils (%) (Auto) 2, Basophils (%) (Auto) 0, Neutrophils # (Auto) 11.8H, Lymphocytes # (Auto) 1.3, Monocytes # (Auto) 1.2H, Eosinophils # (Auto) 0.2, Basophils # (Auto) 0.0, Neutrophils % (Manual) 67, Lymphocytes % (Manual) 16, Monocytes % (Manual) 5, Eosinophils % (Manual) 1, Basophils % (Manual) 0, Band Neutrophils 11, Polychromasia SLIGHT, Anisocytosis SLIGHT, Macrocytosis SLIGHT, Sodium Level 136, Potassium Level 4.3, Chloride Level 101, Carbon Dioxide Level 26, Anion Gap 9, Blood Urea Nitrogen 17, Creatinine 0.53L, Estimat Glomerular Filtration Rate > 60, BUN/Creatinine Ratio 32, Glucose Level 113H, Lactic Acid Level 1.45, Calcium Level 8.6, Corrected Calcium 9.5, Total Bilirubin 0.1, Aspartate Amino Transf (AST/SGOT) 26, Alanine Aminotransferase (ALT/SGPT) 35, Alkaline Phosphatase 114, Total Protein 6.8, Albumin 2.9L, Procalcitonin 0.21H 02/09/20 06:07: White Blood Count 16.1H, Red Blood Count 2.83L, Hemoglobin 9.0L, Hematocrit 29L, Mean Corpuscular Volume 101H, Mean Corpuscular Hemoglobin 32, Mean Corpuscular Hemoglobin Concent 32, Red Cell Distribution Width 18.0H, Platelet Count 738H, Mean Platelet Volume 8.7, Neutrophils (%) (Auto) 72, Lymphocytes (%) (Auto) 16, Monocytes (%) (Auto) 10, Eosinophils (%) (Auto) 1, Basophils (%) (Auto) 1, Neutrophils # (Auto) 11.7H, Lymphocytes # (Auto) 2.6, Monocytes # (Auto) 1.6H, Eosinophils # (Auto) 0.2, Basophils # (Auto) 0.1, Sodium Level 138, Potassium Level 4.1, Chloride Level 103, Carbon Dioxide Level 24, Anion Gap 11, Blood Urea Nitrogen 24H, Creatinine 0.57L, Estimat Glomerular Filtration Rate > 60, BUN/Creatinine Ratio 42, Glucose Level 95, Calcium Level 8.7, Corrected Calcium 9.6, Total Bilirubin 0.1, Aspartate Amino Transf (AST/SGOT) 21, Alanine Aminotransferase (ALT/SGPT) 30, Alkaline Phosphatase 105, Total Protein 6.5, Albumin 2.9L 02/10/20 04:45: White Blood Count 17.2H, Red Blood Count 2.78L, Hemoglobin 8.7L, Hematocrit 28L, Mean Corpuscular Volume 101H, Mean Corpuscular Hemoglobin 31, Mean Corpuscular Hemoglobin Concent 31L, Red Cell Distribution Width 17.9H, Platelet Count 702H, Mean Platelet Volume 8.7, Neutrophils (%) (Auto) 74, Lymphocytes (%) (Auto) 16, Monocytes (%) (Auto) 9, Eosinophils (%) (Auto) 1, Basophils (%) (Auto) 1, Neutrophils # (Auto) 12.6H, Lymphocytes # (Auto) 2.7, Monocytes # (Auto) 1.6H, Eosinophils # (Auto) 0.1, Basophils # (Auto) 0.1, Sodium Level 138, Potassium Level 4.5, Chloride Level 102, Carbon Dioxide Level 28, Anion Gap 8, Blood Urea Nitrogen 22H, Creatinine 0.52L, Estimat Glomerular Filtration Rate > 60, BUN/Creatinine Ratio 42, Glucose Level 101, Calcium Level 8.6, Corrected Calcium 9.6, Total Bilirubin < 0.1L, Aspartate Amino Transf (AST/SGOT) 20, Alanine Aminotransferase (ALT/SGPT) 29, Alkaline Phosphatase 88, Total Protein 6.3L, Albumin 2.8L 02/11/20 06:25: White Blood Count 20.0H, Red Blood Count 2.77L, Hemoglobin 8.8L, Hematocrit 28L, Mean Corpuscular Volume 102H, Mean Corpuscular Hemoglobin 32, Mean Corpuscular Hemoglobin Concent 31L, Red Cell Distribution Width 18.0H, Platelet Count 739H, Mean Platelet Volume 8.4, Neutrophils (%) (Auto) 75, Lymphocytes (%) (Auto) 16, Monocytes (%) (Auto) 8, Eosinophils (%) (Auto) 1, Basophils (%) (Auto) 1, Neutrophils # (Auto) 14.9H, Lymphocytes # (Auto) 3.2, Monocytes # (Auto) 1.7H, Eosinophils # (Auto) 0.1, Basophils # (Auto) 0.1, Sodium Level 141, Potassium Level 4.0, Chloride Level 103, Carbon Dioxide Level 28, Anion Gap 10, Blood Urea Nitrogen 23H, Creatinine 0.58L, Estimat Glomerular Filtration Rate > 60, BUN/Creatinine Ratio 40, Glucose Level 110H, Calcium Level 8.5, Corrected Calcium 9.4, Total Bilirubin 0.1, Aspartate Amino Transf (AST/SGOT) 19, Alanine Aminotransferase (ALT/SGPT) 29, Alkaline Phosphatase 85, Total Protein 6.2L, Albumin 2.9L, Procalcitonin 0.18H 02/12/20 03:58: White Blood Count 21.0H, Red Blood Count 2.72L, Hemoglobin 8.5L, Hematocrit 28L, Mean Corpuscular Volume 102H, Mean Corpuscular Hemoglobin 31, Mean Corpuscular Hemoglobin Concent 31L, Red Cell Distribution Width 18.3H, Platelet Count 719H, Mean Platelet Volume 8.8, Neutrophils (%) (Auto) 75, Lymphocytes (%) (Auto) 16, Monocytes (%) (Auto) 9, Eosinophils (%) (Auto) 1, Basophils (%) (Auto) 1, Neutrophils # (Auto) 15.7H, Lymphocytes # (Auto) 3.3, Monocytes # (Auto) 1.8H, Eosinophils # (Auto) 0.1, Basophils # (Auto) 0.1, Neutrophils % (Manual) 56, Lymphocytes % (Manual) 19, Monocytes % (Manual) 9, Eosinophils % (Manual) 1, Band Neutrophils 7, Atypical Lymphocytes 8, Anisocytosis MODERATE, Macrocytosis SLIGHT, Sodium Level 141, Potassium Level 4.2, Chloride Level 105, Carbon Dioxide Level 28, Anion Gap 8, Blood Urea Nitrogen 26H, Creatinine 0.53L, Estimat Glomerular Filtration Rate > 60, BUN/Creatinine Ratio 49, Glucose Level 96, Calcium Level 8.4L, Corrected Calcium 9.4, Total Bilirubin < 0.1L, Aspartate Amino Transf (AST/SGOT) 19, Alanine Aminotransferase (ALT/SGPT) 29, Alkaline Phosphatase 77, Total Protein 6.0L, Albumin 2.8L 02/13/20 06:57: White Blood Count 21.2H, Red Blood Count 3.07L, Hemoglobin 9.6L, Hematocrit 32L, Mean Corpuscular Volume 103H, Mean Corpuscular Hemoglobin 31, Mean Corpuscular Hemoglobin Concent 30L, Red Cell Distribution Width 18.5H, Platelet Count 723H, Mean Platelet Volume 8.3, Neutrophils (%) (Auto) 78H, Lymphocytes (%) (Auto) 13, Monocytes (%) (Auto) 8, Eosinophils (%) (Auto) 1, Basophils (%) (Auto) 1, Neutrophils # (Auto) 16.5H, Lymphocytes # (Auto) 2.8, Monocytes # (Auto) 1.6H, Eosinophils # (Auto) 0.1, Basophils # (Auto) 0.1, Sodium Level 139, Potassium Level 3.9, Chloride Level 101, Carbon Dioxide Level 27, Anion Gap 11, Blood Urea Nitrogen 19H, Creatinine 0.54L, Estimat Glomerular Filtration Rate > 60, BUN/Creatinine Ratio 35, Glucose Level 118H, Calcium Level 8.8, Procalcitonin 0.14H 02/16/20 06:15: White Blood Count 15.9H, Red Blood Count 2.93L, Hemoglobin 9.3L, Hematocrit 30L, Mean Corpuscular Volume 102H, Mean Corpuscular Hemoglobin 32, Mean Corpuscular Hemoglobin Concent 31L, Red Cell Distribution Width 17.9H, Platelet Count 543H, Mean Platelet Volume 8.7, Neutrophils (%) (Auto) 79H, Lymphocytes (%) (Auto) 10L , Monocytes (%) (Auto) 10, Eosinophils (%) (Auto) 1, Basophils (%) (Auto) 0, Neutrophils # (Auto) 12.5H, Lymphocytes # (Auto) 1.6, Monocytes # (Auto) 1.6H, Eosinophils # (Auto) 0.1, Basophils # (Auto) 0.0, Sodium Level 138, Potassium Level 4.2, Chloride Level 102, Carbon Dioxide Level 27, Anion Gap 9, Blood Urea Nitrogen 16, Creatinine 0.57L, Estimat Glomerular Filtration Rate > 60, BUN/Creatinine Ratio 28, Glucose Level 95, Calcium Level 9.2, Corrected Calcium 9.9, Total Bilirubin 0.2, Aspartate Amino Transf (AST/SGOT) 18, Alanine Aminotransferase (ALT/SGPT) 30, Alkaline Phosphatase 71, Total Protein 6.3L, Albumin 3.1L, Procalcitonin 0.17H, Digoxin Level 0.56L 02/16/20 14:59: Urine Color YELLOW, Urine Clarity CLEAR, Urine pH 6.0, Urine Specific [place] 1.020, Urine Protein NEGATIVE, Urine Glucose (UA) NEGATIVE, Urine Ketones NEGATIVE, Urine Nitrite NEGATIVE, Urine Bilirubin NEGATIVE, Urine Urobilinogen 0.2, Urine Leukocyte Esterase NEGATIVE, Urine RBC (Auto) NEGATIVE, Urine RBC NONE, Urine WBC NONE, Urine Squamous Epithelial Cells RARE, Urine Crystals NONE, Urine Bacteria NEGATIVE, Urine Casts NONE, Urine Mucus NEGATIVE, Urine Culture Indicated NO Pending Labs Laboratory Tests 02/06/20 06:53: White Blood Count 14.6, Red Blood Count 2.97, Hemoglobin 9.3, Hematocrit 30, Mean Corpuscular Volume 101, Mean Corpuscular Hemoglobin 31, Mean Corpuscular Hemoglobin Concent 31, Red Cell Distribution Width 18.4, Platelet Count 642, Mean Platelet Volume 9.1, Neutrophils (%) (Auto) 81, Lymphocytes (%) (Auto) 9, Monocytes (%) (Auto) 8, Eosinophils (%) (Auto) 2, Basophils (%) (Auto) 0, Neutrophils # (Auto) 11.8, Lymphocytes # (Auto) 1.3, Monocytes # (Auto) 1.2, Eosinophils # (Auto) 0.2, Basophils # (Auto) 0.0, Neutrophils % (Manual) 67, Lymphocytes % (Manual) 16, Monocytes % (Manual) 5, Eosinophils % (Manual) 1, Basophils % (Manual) 0, Band Neutrophils 11, Polychromasia SLIGHT, Anisocytosis SLIGHT, Macrocytosis SLIGHT, Sodium Level 136, Potassium Level 4.3, Chloride Level 101, Carbon Dioxide Level 26, Anion Gap 9, Blood Urea Nitrogen 17, Creatinine 0.53, Estimat Glomerular Filtration Rate > 60, BUN/Creatinine Ratio 32, Glucose Level 113, Lactic Acid Level 1.45, Calcium Level 8.6, Corrected Calcium 9.5, Total Bilirubin 0.1, Aspartate Amino Transf (AST/SGOT) 26, Alanine Aminotransferase (ALT/SGPT) 35, Alkaline Phosphatase 114, Total Protein 6.8, Albumin 2.9, Procalcitonin 0.21 02/09/20 06:07: White Blood Count 16.1, Red Blood Count 2.83, Hemoglobin 9.0, Hematocrit 29, Mean Corpuscular Volume 101, Mean Corpuscular Hemoglobin 32, Mean Corpuscular Hemoglobin Concent 32, Red Cell Distribution Width 18.0, Platelet Count 738, Mean Platelet Volume 8.7, Neutrophils (%) (Auto) 72, Lymphocytes (%) (Auto) 16, Monocytes (%) (Auto) 10, Eosinophils (%) (Auto) 1, Basophils (%) (Auto) 1, Neutrophils # (Auto) 11.7, Lymphocytes # (Auto) 2.6, Monocytes # (Auto) 1.6, Eosinophils # (Auto) 0.2, Basophils # (Auto) 0.1, Sodium Level 138, Potassium Level 4.1, Chloride Level 103, Carbon Dioxide Level 24, Anion Gap 11, Blood Urea Nitrogen 24, Creatinine 0.57, Estimat Glomerular Filtration Rate > 60, BUN/Creatinine Ratio 42, Glucose Level 95, Calcium Level 8.7, Corrected Calcium 9.6, Total Bilirubin 0.1, Aspartate Amino Transf (AST/SGOT) 21, Alanine Aminotransferase (ALT/SGPT) 30, Alkaline Phosphatase 105, Total Protein 6.5, Albumin 2.9 02/10/20 04:45: White Blood Count 17.2, Red Blood Count 2.78, Hemoglobin 8.7, Hematocrit 28, Mean Corpuscular Volume 101, Mean Corpuscular Hemoglobin 31, Mean Corpuscular Hemoglobin Concent 31, Red Cell Distribution Width 17.9, Platelet Count 702, Mean Platelet Volume 8.7, Neutrophils (%) (Auto) 74, Lymphocytes (%) (Auto) 16, Monocytes (%) (Auto) 9, Eosinophils (%) (Auto) 1, Basophils (%) (Auto) 1, Neutrophils # (Auto) 12.6, Lymphocytes # (Auto) 2.7, Monocytes # (Auto) 1.6, Eosinophils # (Auto) 0.1, Basophils # (Auto) 0.1, Sodium Level 138, Potassium Level 4.5, Chloride Level 102, Carbon Dioxide Level 28, Anion Gap 8, Blood Urea Nitrogen 22, Creatinine 0.52, Estimat Glomerular Filtration Rate > 60, BUN/Creatinine Ratio 42, Glucose Level 101, Calcium Level 8.6, Corrected Calcium 9.6, Total Bilirubin < 0.1, Aspartate Amino Transf (AST/SGOT) 20, Alanine Aminotransferase (ALT/SGPT) 29, Alkaline Phosphatase 88, Total Protein 6.3, Albumin 2.8 02/11/20 06:25: White Blood Count 20.0, Red Blood Count 2.77, Hemoglobin 8.8, Hematocrit 28, Mean Corpuscular Volume 102, Mean Corpuscular Hemoglobin 32, Mean Corpuscular Hemoglobin Concent 31, Red Cell Distribution Width 18.0, Platelet Count 739, Mean Platelet Volume 8.4, Neutrophils (%) (Auto) 75, Lymphocytes (%) (Auto) 16, Monocytes (%) (Auto) 8, Eosinophils (%) (Auto) 1, Basophils (%) (Auto) 1, Neutrophils # (Auto) 14.9, Lymphocytes # (Auto) 3.2, Monocytes # (Auto) 1.7, Eosinophils # (Auto) 0.1, Basophils # (Auto) 0.1, Sodium Level 141, Potassium Level 4.0, Chloride Level 103, Carbon Dioxide Level 28, Anion Gap 10, Blood Urea Nitrogen 23, Creatinine 0.58, Estimat Glomerular Filtration Rate > 60, BUN/Creatinine Ratio 40, Glucose Level 110, Calcium Level 8.5, Corrected Calcium 9.4, Total Bilirubin 0.1, Aspartate Amino Transf (AST/SGOT) 19, Alanine Aminotransferase (ALT/SGPT) 29, Alkaline Phosphatase 85, Total Protein 6.2, Albumin 2.9, Procalcitonin 0.18 02/12/20 03:58: White Blood Count 21.0, Red Blood Count 2.72, Hemoglobin 8.5, Hematocrit 28, Mean Corpuscular Volume 102, Mean Corpuscular Hemoglobin 31, Mean Corpuscular Hemoglobin Concent 31, Red Cell Distribution Width 18.3, Platelet Count 719, Mean Platelet Volume 8.8, Neutrophils (%) (Auto) 75, Lymphocytes (%) (Auto) 16, Monocytes (%) (Auto) 9, Eosinophils (%) (Auto) 1, Basophils (%) (Auto) 1, N eutrophils # (Auto) 15.7, Lymphocytes # (Auto) 3.3, Monocytes # (Auto) 1.8, Eosinophils # (Auto) 0.1, Basophils # (Auto) 0.1, Neutrophils % (Manual) 56, Lymphocytes % (Manual) 19, Monocytes % (Manual) 9, Eosinophils % (Manual) 1, Band Neutrophils 7, Atypical Lymphocytes 8, Anisocytosis MODERATE, Macrocytosis SLIGHT, Sodium Level 141, Potassium Level 4.2, Chloride Level 105, Carbon Dioxide Level 28, Anion Gap 8, Blood Urea Nitrogen 26, Creatinine 0.53, Estimat Glomerular Filtration Rate > 60, BUN/Creatinine Ratio 49, Glucose Level 96, Calcium Level 8.4, Corrected Calcium 9.4, Total Bilirubin < 0.1, Aspartate Amino Transf (AST/SGOT) 19, Alanine Aminotransferase (ALT/SGPT) 29, Alkaline Phosphatase 77, Total Protein 6.0, Albumin 2.8 02/13/20 06:57: White Blood Count 21.2, Red Blood Count 3.07, Hemoglobin 9.6, Hematocrit 32, Mean Corpuscular Volume 103, Mean Corpuscular Hemoglobin 31, Mean Corpuscular Hemoglobin Concent 30, Red Cell Distribution Width 18.5, Platelet Count 723, Mean Platelet Volume 8.3, Neutrophils (%) (Auto) 78, Lymphocytes (%) (Auto) 13, Monocytes (%) (Auto) 8, Eosinophils (%) (Auto) 1, Basophils (%) (Auto) 1, Neutrophils # (Auto) 16.5, Lymphocytes # (Auto) 2.8, Monocytes # (Auto) 1.6, Eosinophils # (Auto) 0.1, Basophils # (Auto) 0.1, Sodium Level 139, Potassium Level 3.9, Chloride Level 101, Carbon Dioxide Level 27, Anion Gap 11, Blood Urea Nitrogen 19, Creatinine 0.54, Estimat Glomerular Filtration Rate > 60, BUN/Creatinine Ratio 35, Glucose Level 118, Calcium Level 8.8, Procalcitonin 0.14 02/16/20 06:15: White Blood Count 15.9, Red Blood Count 2.93, Hemoglobin 9.3, Hematocrit 30, Mean Corpuscular Volume 102, Mean Corpuscular Hemoglobin 32, Mean Corpuscular Hemoglobin Concent 31, Red Cell Distribution Width 17.9, Platelet Count 543, Mean Platelet Volume 8.7, Neutrophils (%) (Auto) 79, Lymphocytes (%) (Auto) 10, Monocytes (%) (Auto) 10, Eosinophils (%) (Auto) 1, Basophils (%) (Auto) 0, Neutrophils # (Auto) 12.5, Lymphocytes # (Auto) 1.6, Monocytes # (Auto) 1.6, Eosinophils # (Auto) 0.1, Basophils # (Auto) 0.0, Sodium Level 138, Potassium Level 4.2, Chloride Level 102, Carbon Dioxide Level 27, Anion Gap 9, Blood Urea Nitrogen 16, Creatinine 0.57, Estimat Glomerular Filtration Rate > 60, BUN/Creatinine Ratio 28, Glucose Level 95, Calcium Level 9.2, Corrected Calcium 9.9, Total Bilirubin 0.2, Aspartate Amino Transf (AST/SGOT) 18, Alanine Aminotransferase (ALT/SGPT) 30, Alkaline Phosphatase 71, Total Protein 6.3, Albumin 3.1, Procalcitonin 0.17, Digoxin Level 0.56 02/16/20 14:59: Urine Color YELLOW, Urine Clarity CLEAR, Urine pH 6.0, Urine Specific [place] 1.020, Urine Protein NEGATIVE, Urine Glucose (UA) NEGATIVE, Urine Ketones NEGATIVE, Urine Nitrite NEGATIVE, Urine Bilirubin NEGATIVE, Urine Urobilinogen 0.2, Urine Leukocyte Esterase NEGATIVE, Urine RBC (Auto) NEGATIVE, Urine RBC NONE, Urine WBC NONE, Urine Squamous Epithelial Cells RARE, Urine Crystals NONE, Urine Bacteria NEGATIVE, Urine Casts NONE, Urine Mucus NEGATIVE, Urine Culture Indicated NO Discharge Home Medications: Active Scripts Active Cefdinir 300 Mg Capsule 300 Mg PO BID 7 Days Folic Acid 1 Mg Tablet 1 Mg PO DAILY 30 Days Pantoprazole Sodium 40 Mg Tablet.dr 40 Mg PO DAILY 30 Days Senna-Time S Tablet (Sennosides/Docusate Sodium) 1 Each Tablet 1 Ea PO BID 30 Days Mucinex (Guaifenesin) 600 Mg Tab.er.12h 600 Mg PO BID 30 Days Advair Hfa 115-21 Mcg Inhaler (Fluticasone/Salmeterol) 12 Gm Hfa.aer.ad 0 Puff IH RTBID 30 Days Lactulose 20 Gm/30 Ml Solution 10 Gm PO BID PRN 30 Days Alprazolam 0.25 Mg Tablet 0.25 Mg PO Q8H PRN Gabapentin 100 Mg Capsule 200 Mg PO TID 30 Days Oxycodone IR (Oxycodone HCl) 5 Mg Tablet 5 Mg PO Q4HR PRN Diltiazem 24Hr ER (Diltiazem HCl) 300 Mg Cap.er.24h 300 Mg PO DAILY 30 Days Digox (Digoxin) 250 Mcg Tablet 0.25 Mg PO DAILY 30 Days Xarelto Tablet (Rivaroxaban) 20 Mg Tablet 20 Mg PO DAILY@1700 180 Days Ferrous Sulfate 325 Mg Tablet 325 Mg PO BID WITH MEALS 30 Days Iprat-Albut 0.5-3(2.5) mg/3 ml (Ipratropium/Albuterol Sulfate) 3 Ml Ampul.neb 3 Ml INH RTQ4HR 30 Days Reported Multivitamin 1 Each Tablet 1 Each PO DAILY Instructions to patient/family Please see electronic discharge instructions given to patient. Diagnosis/Problems Diagnosis/Problems (1) Myopathy (2) Acute occlusion of artery of lower extremity due to thromboembolism Status: Acute (3) Acute respiratory failure with hypoxia Status: Acute (4) Atrial fibrillation with rapid ventricular response Status: Acute (5) Severe protein-calorie malnutrition Status: Acute (6) Pneumonia Status: Acute (7) Debility Status: Acute (8) Iron deficiency anemia Status: Chronic (9) Lung mass Status: Acute (10) Tobacco abuse Status: Chronic (11) Folic acid deficiency Status: Chronic (12) Anemia of chronic disease Status: Chronic (13) COPD (chronic obstructive pulmonary disease) Status: Chronic Clinical Quality Measures DVT/VTE Risk/Contraindication: Risk Factor Score Per Nursin RFS Level Per Nursing on Admit: 4+=Very High LOI CORTEZ DO Feb 17, 2020 08:51
--- NOTE | 2020-02-17 09:21 | Therapy Team Discharge Summary ---
Therapy Discharge Summary Discharge Recommendations Date of Discharge 02-17-20 Therapy D/C Recommendations: 24 hr Supervision, Occupational Therapy Home Care, [facility] (TCU/NH) Occupational Therapy Pt. has been seen by occupational therapy to increase overall strength and independence. Pt. has met goal of eating, but continues to require CGA/Min assist for ADLs due to fatigue. Pt. also requires cues and encouragement to participate at times, as pt. fatigues easily and reports pain. Pain has been managed by pain medication and positioning, as well as rest breaks and increased time needed for tasks. Pt. is discharging to [facility] facility to continue getting stronger before discharge. Equipment needs will be addressed there. Decreased Activ Tolerance, Decreased UE Strength, Dependent Transfers, Impaired Funct Balance, Impaired I ADL's, Impaired Self-Care Skills PT Salt Washer Goals Salt Washer Goals PT Retirement Goals Time Frame: Feb 26, 2020 Roll Left to Right (QC): 6 Sit to Lying (QC): 6 Lying-Sitting on Side/Bed(QC): 6 Sit to Stand (QC): 5 Chair/Kik-zf-Upyai Xfer(QC): 5 Car Transfer (QC): 5 Does the Patient Walk: Yes Walk 10 feet (QC): 5 Walk 10ft-Uneven Surface(QC): 5 Walk 50ft with 2 Turns (QC): 5 Walk 150 ft (QC): 5 Wheel 50 feet with 2 turns (QC: 6 1 Step (curb) (QC): 4 4 Steps (QC): 4 12 Steps (QC): 88 Picking up an Object (QC): 88 OT Salt Washer Goals Salt Washer Goals Time Frame: Feb 19, 2020 Eating (QC): 6 (met) Oral Hygiene (QC): 6 (not met) Shower/Bathe Self (QC): 5 (not met) Upper Body Dressing (QC): 6 (not met) Lower Body Dressing (QC): 6 (not met) On/Off Footwear (QC): 6 (not met) Toileting Hygiene (QC): 6 (not met) Toilet/Commode Transfer (QC): 5 (not met) Additional Goals: 1-Demonstrate ADL Tasks, 2-Verbalize Understanding, 3- ImproveStrength/Lorena 1=Demonstrate adherence to instructed precautions during ADL tasks. 2=Patient will verbalize/demonstrate understanding of assistive devices/modifications for ADL. 3=Patient will improve strength/tolerance for activity to enable patient to perform ADL's. REGGIE GARCIA OT Feb 17, 2020 09:21
[2020-02-17] MEDS: ADVAIR HFA 115/21 MCG INHALER 8 GM IH SCH (09:59)
--- NOTE | 2020-02-17 10:42 | NUR ---
CM/SS DISCHARGE Patient discharged today as planned to new Medicare skilled placement with [facility] via their transport scheduled for 1100. Faxed orders/instructions to [facility], prepared continuum of care packet to accompany patient, including Covid19 Post Acute Care Facility Transfer form. [facility] Assessment is suspended at this time, facility to coordinate per current protocols. Final update to brother Geo Soto by phone, advised him to connect with social economist at [facility] regarding bringing patient personal items there. Informed him [facility] is still not allowing visitors other than "window visits". Unit RN updated intermittently on final plans.
[2020-02-17 12:07] VITALS: BP 102/66
--- NOTE | 2020-02-17 13:22 | Therapy Team Discharge Summary ---
Therapy Discharge Summary Discharge Recommendations Date of Discharge Feb 17, 2020 at 11:10 Therapy D/C Recommendations: 24 hr Supervision, Occupational Therapy Home Care, [facility] (TCU/NH) Physical Therapy Patient came to rehab with sepsis/respiratory distress. Upon evaluation patient performed bed mobility with independence, supine <-> sit with independence, sit <-> stand with min assist, transfers with CGA, car transfer CGA, ambulated 20' with a rolling walker with CGA (including 10' over an uneven surface), and propelled a manual WC 120' with setup. Patient has been performing bed mobility and transfer training, balance and endurance training, functional strengthening, stair training, gait training, and education. Patient has made some progress but has only met his half-way goals for bed mobility and supine <-> sit. Now, patient performs bed mobility with independence, supine <-> sit with independence, sit<-> stand SBA, transfers SBA, car transfer SBA, ambulates 150' with a rolling walker with SBA (including 50' with at least 2 turns of 90 degrees and 10' over an uneven surface), can go up and down 4 steps using 2 handrails with min assist, and can [employer] an object from the floor with CGA. Patient has discharged from this facility today and will be discharged from PT at this time. Occupational Therapy Decreased Activ Tolerance, Decreased UE Strength, Dependent Transfers, Impaired Funct Balance, Impaired I ADL's, Impaired Self-Care Skills PT Community Case Manager Goals Mcfp Goals PT Mcfp Goals Time Frame: Feb 26, 2020 Roll Left to Right (QC): 6 Sit to Lying (QC): 6 Lying-Sitting on Side/Bed(QC): 6 Sit to Stand (QC): 5 Chair/Nvo-ff-Joodz Xfer(QC): 5 Car Transfer (QC): 5 Does the Patient Walk: Yes Walk 10 feet (QC): 5 Walk 10ft-Uneven Surface(QC): 5 Walk 50ft with 2 Turns (QC): 5 Walk 150 ft (QC): 5 Wheel 50 feet with 2 turns (QC: 6 1 Step (curb) (QC): 4 4 Steps (QC): 4 12 Steps (QC): 88 Picking up an Object (QC): 88 OT Community Case Manager Goals Community Case Manager Goals Time Frame: Feb 19, 2020 Eating (QC): 6 (met) Oral Hygiene (QC): 6 (not met) Shower/Bathe Self (QC): 5 (not met) Upper Body Dressing (QC): 6 (not met) Lower Body Dressing (QC): 6 (not met) On/Off Footwear (QC): 6 (not met) Toileting Hygiene (QC): 6 (not met) Toilet/Commode Transfer (QC): 5 (not met) Additional Goals: 1-Demonstrate ADL Tasks, 2-Verbalize Understanding, 3- ImproveStrength/Lorena 1=Demonstrate adherence to instructed precautions during ADL tasks. 2=Patient will verbalize/demonstrate understanding of assistive devices/modifications for ADL. 3=Patient will improve strength/tolerance for activity to enable patient to perform ADL's. MARKO REID PT Feb 17, 2020 13:22
== END 2020-02-17 11:10 | DRG 91 ==
PROVIDERS: ADMIT Internal Medicine; ATTEND Internal Medicine
DX: G72.81 Critical illness myopathy (principal); J18.9 Pneumonia, unspecified organism; J44.1 Chronic obstructive pulmonary disease with (acute) exacerbation; R64 Cachexia; I48.0 Paroxysmal atrial fibrillation; I10 Essential (primary) hypertension; I73.9 Peripheral vascular disease, unspecified; I25.10 Atherosclerotic heart disease of native coronary artery without angina pectoris; D64.9 Anemia, unspecified; M47.9 Spondylosis, unspecified; K29.70 Gastritis, unspecified, without bleeding; K44.9 Diaphragmatic hernia without obstruction or gangrene; F41.9 Anxiety disorder, unspecified; F32.9 Major depressive disorder, single episode, unspecified; R91.8 Other nonspecific abnormal finding of lung field; D72.828 Other elevated white blood cell count; T38.0X5A Adverse effect of glucocorticoids and synthetic analogues, initial encounter; Z87.891 Personal history of nicotine dependence; Z99.81 Dependence on supplemental oxygen; Z87.820 Personal history of traumatic brain injury; Z87.09 Personal history of other diseases of the respiratory system
CPT/HCPCS: 36415; 71046; 71260; 72158; 80048; 80053; 80162; 81000; 83605; 84145; 85007; 85025; 85027; 93005; 94640; 94760

== ENCOUNTER 2020-02-27 13:48 | Inpatient (IN) | payer MEDICARE ==
[2020-02-27] VITALS (8 sets, daily range): BP systolic 99–116; BP diastolic 65–74
[~2020-02-27] VITALS: Ht 175.2 cm; Wt 64.5 kg
[~2020-02-27 13:48] MED LIST changes: +ALPR0.254 PO; +CEFD300C3 PO; +DIGO250T15 PO; +DILT300C52 PO; +FERR325T18 PO; +FLUT12AE4 IH; +FOLI1TAB24 PO; +GABA-486 PO; +GUAI600T43 PO; +IPRA3AMP31 INH; +LACT20SO2 PO; +OXYC5TAB96 PO; +PANT40TA3 PO; +RIVA20TA2 PO; +SENN-20 PO
[2020-02-27] MEDS ORDERED: LACTATED RINGERS 1,000 ML IV ONE ×2 (14:07→15:23)
[2020-02-27] MEDS ORDERED: ASPIRIN 81 MG CHEW (CHILDREN'S ASA) PO ONE (14:15)
[2020-02-27 14:17] LABS: BASOPHILS % (AUTO) 0 % (0-10); EOSINOPHILS # (AUTO) 0.4 10^3/uL (0.0-0.3); EOSINOPHILS % (AUTO) 4 % (0-10); HEMATOCRIT 33 % (40-54); HEMOGLOBIN 10.4 G/DL (13.3-17.7); LYMPHOCYTES # (AUTO) 1.7 X 10^3 (1.0-4.0); LYMPHOCYTES % (AUTO) 18 % (12-44); MEAN CORPUSCULAR HEMOGLOBIN 31 PG (25-34); MEAN CORPUSCULAR HGB CONC 31 G/DL (32-36); MEAN CORPUSCULAR VOLUME 99 FL (80-99); MEAN PLATELET VOLUME 8.2 FL (7.4-10.4); MONOCYTES # (AUTO) 0.9 X 10^3 (0.0-1.0); MONOCYTES % (AUTO) 9 % (0-12); NEUTROPHILS # (AUTO) 6.6 X 10^3 (1.8-7.8); NEUTROPHILS % (AUTO) 69 % (42-75); PLATELET COUNT 584 10^3/uL (130-400); RED CELL DISTRIBUTION WIDTH 15.6 % (10.0-14.5); WHITE BLOOD COUNT 9.6 10^3/uL (4.3-11.0)
[2020-02-27 14:28] LABS: CHLORIDE 103 MMOL/L (98-107); POTASSIUM 3.9 MMOL/L (3.6-5.0); SODIUM 137 MMOL/L (135-145)
[2020-02-27 14:30] LABS: GLUCOSE 115 MG/DL (70-105); TOTAL PROTEIN 6.9 GM/DL (6.4-8.2)
[2020-02-27 14:31] LABS: CARBON DIOXIDE 26 MMOL/L (21-32)
[2020-02-27 14:32] LABS: BILIRUBIN,TOTAL 0.2 MG/DL (0.1-1.0)
[2020-02-27 14:33] LABS: ALKALINE PHOSPHATASE 85 U/L (40-136)
[2020-02-27 14:34] LABS: CREATININE SERUM 0.59 MG/DL (0.60-1.30); GFR ESTIMATED > 60
[2020-02-27 14:35] LABS: BUN/CREATININE RATIO 19
[2020-02-27 14:36] LABS: FIBRIN DEGRADATION PRODUCTS 0.89 UG/ML (0.00-0.49); PROTHROMBIN TIME PATIENT 13.7 SEC (12.2-14.7)
--- NOTE | 2020-02-27 14:50 | ED General ---
General Chief Complaint: Chest Pain Stated Complaint: GENERALIZED WEAKNESS Nursing Triage Note: PT PRESENTS TO ED VIA EMS FROM HOME WITH COMPLAINTS OF CP. SOA, DIZZINESS, AND FEVER. PT REPORTS CP STARTED THIS AM. Nursing Sepsis Screen: Possible Severe Sepsis Risk Source of Information: Patient Exam Limitations: No Limitations (KEVIN NEAL APRN) History of Present Illness Date Seen by Provider: Feb 27, 2020 Time Seen by Provider: 13:50 (KEVIN NEAL APRN) Initial Comments Here by EMS with report of fever, breathing problems, cough, sore throat and overall not feeling well. Also reports that he's had chest pain for the last hour or 2. Chest pain is central and radiating to the right arm. States that it is a pressure/tightness. Associated with dizziness. Denies diaphoresis, nausea, vomiting or diarrhea. Does admit to being weak. Just released 3 days ago from the residential where he had short rehabilitation stay. Patient has history of traumatic brain injury and has a poor historian. Timing/Duration: 1-2 Days, Getting Worse Severity: Moderate Associated Systoms: Cough, Fever/Chills; No Headaches, No Nausea/Vomiting; Shortness of Air, Weakness (MIGEL STANTON MD) Allergies and Home Medications Allergies Coded Allergies: No Known Drug Allergies (Verified , 07/11/09) Home Medications Alprazolam 0.25 Mg Tablet, 0.25 MG PO Q8H PRN for ANXIETY Prescribed by: LOI CORTEZ on 02/15/201450 Cefdinir 300 Mg Capsule, 300 MG PO BID Prescribed by: LOI CORTEZ on 02/16/202158 Digoxin 250 Mcg Tablet, 0.25 MG PO DAILY Prescribed by: LOI CORTEZ on 02/15/201450 Diltiazem HCl 300 Mg Cap.er.24h, 300 MG PO DAILY Prescribed by: LOI CORTEZ on 02/15/201450 Ferrous Sulfate 325 Mg Tablet, 325 MG PO BID WITH MEALS Prescribed by: LOI CORTEZ on 02/15/201450 Fluticasone/Salmeterol 12 Gm Hfa.aer.ad, 0 PUFF IH RTBID Prescribed by: LOI CORTEZ on 02/15/201450 Folic Acid 1 Mg Tablet, 1 MG PO DAILY Prescribed by: LOI CORTEZ on 02/15/201450 Gabapentin 100 Mg Capsule, 200 MG PO TID Prescribed by: LOI CORTEZ on 02/15/201450 Guaifenesin 600 Mg Tab.er.12h, 600 MG PO BID Prescribed by: LOI CORTEZ on 02/15/201450 Ipratropium/Albuterol Sulfate 3 Ml Ampul.neb, 3 ML INH RTQ4HR Prescribed by: LOI CORTEZ on 02/15/201450 Lactulose 20 Gm/30 Ml Solution, 10 GM PO BID PRN for CONSTIPATION-2ND LINE Prescribed by: LOI CORTEZ on 02/15/201450 Multivitamin 1 Each Tablet, 1 EACH PO DAILY, (Reported) Oxycodone HCl 5 Mg Tablet, 5 MG PO Q4HR PRN for PAIN-SEVERE (8-10) Prescribed by: LOI CORTEZ on 02/15/201450 Pantoprazole Sodium 40 Mg Tablet.dr, 40 MG PO DAILY Prescribed by: LOI CORTEZ on 02/15/201450 Rivaroxaban 20 Mg Tablet, 20 MG PO DAILY@1700 Prescribed by: LOI CORTEZ on 02/15/201450 Sennosides/Docusate Sodium 1 Each Tablet, 1 EA PO BID Prescribed by: LOI CORTEZ on 02/15/201450 Patient Home Medication List Home Medication List Reviewed: Yes (MIGEL STANTON MD) Review of Systems Review of Systems Constitutional: see HPI, chills, dizziness, fever, weakness EENTM: nose congestion, throat pain Respiratory: cough, short of breath, wheezing Cardiovascular: chest pain; No edema, No palpitations Gastrointestinal: No abdominal pain, No nausea, No vomiting Genitourinary: no symptoms reported Musculoskeletal: no symptoms reported Skin: no symptoms reported Psychiatric/Neurological: See HPI (MIGEL STANTON MD) All Other Systems Reviewed Negative Unless Noted: Yes (MIGEL STANTON MD) Past Qeaikcn-Yprqlu-Nvvtck Hx Past Med/Social Hx: Reviewed Nursing Past Med/Soc Hx (MIGEL STANTON MD) Patient Social History Alcohol Use: Past History Number of Drinks Today: AA Alcohol Beverage of Choice: Beer Recreational Drug Use: No Drug of Choice: "marijuana in the 80's and 90's" Smoking Status: Former Smoker Type Used: Cigarettes Former Smoker, Quit: Dec 06, 2019 Recent Foreign Travel: No Contact w/Someone Who Travel: No Recent Infectious Disease Expo: No Recent Hopitalizations: Yes Physical Abuse: No Sexual Abuse: No Mistreated: No Fear: No (KEVIN NEAL APRN) Immunizations Up To Date Tetanus Booster (TDap): Unknown PED Vaccines UTD: No (KEVIN NEAL APRN) Seasonal Allergies Seasonal Allergies: Yes (hayfever) (KEVIN NEAL APRN) Past Medical History Surgeries: Yes (hernia repair, l ankle, l wrist, ) Orthopedic Respiratory: Yes Pneumonia, COPD Currently Using CPAP: No Currently Using BIPAP: No Cardiac: Yes Atrial Fibrillation, Deep Vein Thrombosis, Hypertension Neurological: Yes Sexually Transmitted Disease: No HIV/AIDS: No Genitourinary: No Renal Failure Gastrointestinal: Yes Abdominal Hernia, Gastrointestinal Bleed Musculoskeletal: No Chronic Back Pain Endocrine: No HEENT: No (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 oz. kg; 19.00 BMI Method: (KEVIN NEAL APRN) General Appearance: Chronically ill, Thin HEENT: PERRL/EOMI, Pharynx Normal Neck: Non Tender, Supple Respiratory: Crackles, Expiration, Wheezing Cardiovascular: No Murmur, Tachycardia Gastrointestinal: Non Tender, Soft Back: Normal Inspection, No CVA Tenderness, No Vertebral Tenderness Extremity: Normal Range of Motion, Non Tender Neurologic/Psychiatric: Alert, Oriented x3 Skin: Warm/Dry, Other (tips of toes to the right foot blackened and has history of blood clots in that leg. This is known and persisting and not a new finding.) (MIGEL STANTON MD) Focused Exam Lactate Level 02/27/20 14:00: Lactic Acid Level 1.44 (MIGEL STANTON MD) Lactic Acid Level Laboratory Tests Test 02/27/20 14:00 Lactic Acid Level 1.44 MMOL/L (0.50-2.00) (MIGEL STANTON MD) Procedures/Interventions Date of ETT Placement: January 17, 2020 Time of ETT Placement: 0806 (KEVIN NEAL APRN) Progress/Results/Core Measures Suspected Sepsis Recent Fever Within 48 Hours: Yes Infection Criteria Present: Suspected New Infection New/Unexplained Altered Menta: Yes Sepsis Screen: Possible Severe Sepsis Risk SIRS Temperature: Pulse: 93 Respiratory Rate: 16 Laboratory Tests 02/27/20 14:00: White Blood Count 9.6 Blood Pressure 106 /75 Mean: 85 02/27/20 14:00: Lactic Acid Level 1.44 Laboratory Tests 02/27/20 14:00: Creatinine 0.59L, INR Comment 1.0, Platelet Count 584H, Total Bilirubin 0.2 (KEVIN NEAL APRN) Results/Orders Lab Results Laboratory Tests Test 02/27/20 14:00 02/27/20 14:35 02/27/20 15:15 Range/Units White Blood Count 9.6 4.3-11.0 10^3/uL Red Blood Count 3.39 L 4.35-5.85 10^6/uL Hemoglobin 10.4 L 13.3-17.7 G/DL Hematocrit 33 L 40-54 % Mean Corpuscular Volume 99 80-99 FL Mean Corpuscular Hemoglobin 31 25-34 PG Mean Corpuscular Hemoglobin Concent 31 L 32-36 G/DL Red Cell Distribution Width 15.6 H 10.0-14.5 % Platelet Count 584 H 130-400 10^3/uL Mean Platelet Volume 8.2 7.4-10.4 FL Neutrophils (%) (Auto) 69 42-75 % Lymphocytes (%) (Auto) 18 12-44 % Monocytes (%) (Auto) 9 0-12 % Eosinophils (%) (Auto) 4 0-10 % Basophils (%) (Auto) 0 0-10 % Neutrophils # (Auto) 6.6 1.8-7.8 X 10^3 Lymphocytes # (Auto) 1.7 1.0-4.0 X 10^3 Monocytes # (Auto) 0.9 0.0-1.0 X 10^3 Eosinophils # (Auto) 0.4 H 0.0-0.3 10^3/uL Basophils # (Auto) 0.0 0.0-0.1 10^3/uL Erythrocyte Sedimentation Rate 68 H 0-30 MM/HR Prothrombin Time 13.7 12.2-14.7 SEC INR Comment 1.0 0.8-1.4 Activated Partial Thromboplast Time 25 24-35 SEC D-Dimer 0.89 H 0.00-0.49 UG/ML Sodium Level 137 135-145 MMOL/L Potassium Level 3.9 3.6-5.0 MMOL/L Chloride Level 103 98-107 MMOL/L Carbon Dioxide Level 26 21-32 MMOL/L Anion Gap 8 5-14 MMOL/L Blood Urea Nitrogen 11 7-18 MG/DL Creatinine 0.59 L 0.60-1.30 MG/DL Estimat Glomerular Filtration Rate > 60 BUN/Creatinine Ratio 19 Glucose Level 115 H 70-105 MG/DL Lactic Acid Level 1.44 0.50-2.00 MMOL/L Calcium Level 9.0 8.5-10.1 MG/DL Corrected Calcium 9.8 8.5-10.1 MG/DL Total Bilirubin 0.2 0.1-1.0 MG/DL Aspartate Amino Transf (AST/SGOT) 34 5-34 U/L Alanine Aminotransferase (ALT/SGPT) 19 0-55 U/L Alkaline Phosphatase 85 40-136 U/L Lactate Dehydrogenase 191 125-220 U/L Troponin I < 0.028 <0.028 NG/ML C-Reactive Protein High Sensitivity 3.81 H 0.00-0.50 MG/DL Total Protein 6.9 6.4-8.2 GM/DL Albumin 3.0 L 3.2-4.5 GM/DL Procalcitonin 0.08 <0.10 NG/ML Urine Color YELLOW Urine Clarity CLEAR Urine pH 6.0 5-9 Urine Specific [place] 1.020 1.016-1.022 Urine Protein NEGATIVE NEGATIVE Urine Glucose (UA) NEGATIVE NEGATIVE Urine Ketones NEGATIVE NEGATIVE Urine Nitrite NEGATIVE NEGATIVE Urine Bilirubin NEGATIVE NEGATIVE Urine Urobilinogen 0.2 < = 1.0 MG/DL Urine Leukocyte Esterase NEGATIVE NEGATIVE Urine RBC (Auto) NEGATIVE NEGATIVE Urine RBC 0-2 /HPF Urine WBC 0-2 /HPF Urine Crystals PRESENT H /LPF Urine Amorphous Sediment FEW MYA URATES H /LPF Urine Bacteria NEGATIVE /HPF Urine Casts NONE /LPF Urine Mucus SMALL H /LPF Urine Culture Indicated NO (MIGEL STANTON MD) My Orders Orders - MIGEL STANTON MD Cbc With Automated Diff (02/27/20 14:07) Comprehensive Metabolic Panel (02/27/20 14:07) Blood Culture (02/27/20 14:07) Sputum Culture (02/27/20 14:07) Urinalysis (02/27/20 14:07) Urine Culture (02/27/20 14:07) Protime With Inr (02/27/20 14:07) Partial Thromboplastin Time (02/27/20 14:07) Chest 1 View, Ap/Pa Only (02/27/20 14:07) Ed Iv/Invasive Line Start (02/27/20 14:07) Ed Iv/Invasive Line Start (02/27/20 14:07) Ekg Tracing (02/27/20 14:07) Troponin I (02/27/20 14:07) Vital Signs Adult Sepsis Patie Q15M (02/27/20 14:07) O2 (02/27/20 14:07) Remove Rings In Anticipation O (02/27/20 14:07) Lactic Acid Analyzer (02/27/20 14:07) Fibrin Degradation Products (02/27/20 14:07) Procalcitonin (Pct) (02/27/20 14:07) Hs C Reactive Protein (02/27/20 14:07) Erythrocyte Sedimentation Rate (02/27/20 14:07) LDH (02/27/20 14:07) Lactated Ringers (Lr 1000 Ml Iv Solution (02/27/20 14:07) Aspirin Chewable Tablet (Baby Aspirin Ch (02/27/20 14:15) Piperacillin Sodium/Tazobactam (Zosyn Vi (02/27/20 15:30) Lactated Ringers (Lr 1000 Ml Iv Solution (02/27/20 15:23) (MIGEL STANTON MD) Medications Given in ED Current Medications Medications Dose Ordered Sig/David Route Start Time Stop Time Status Last Admin Dose Admin Aspirin 324 mg ONCE ONCE PO 02/27/20 14:15 02/27/20 14:16 DC 02/27/20 14:26 324 MG Lactated Ringer's 1,000 ml @ 0 mls/hr Q0M ONCE IV 02/27/20 14:07 02/27/20 14:10 DC 02/27/20 14:27 0 MLS/HR (MIGEL STANTON MD) Vital Signs/I&O 02/27/20 02/27/20 02/27/20 13:50 14:06 14:06 Temp 37.0 Pulse 93 Resp 16 B/P (MAP) 106/75 (85) Pulse Ox 94 93 O2 Delivery Nasal Cannula Nasal Cannula Nasal Cannula O2 Flow Rate 4.00 4.00 4.0 (MIGEL STANTON MD) Vital Signs/I&O Capillary Refill : Less Than 3 Seconds (KEVIN NEAL APRN) Blood Pressure Mean: 85 Progress Note : Progress Note Seen and evaluated. By EMS. Labs, blood cultures, lactic acid, ASA 324 mg by mouth, LR 1 bolus ordered. We will maintain patient on oxygen. Normally on 3 L. He is currently at 4 to keep O2 sats greater than 92% and for comfort. Anticipate admission. We are pursuing both sepsis and chest pain protocol. Monitor patient. 1540: I have spoken with both Dr. Oliveira and Dr. Domingo. Fi nding of right lower lobe pneumonia in the setting of chest pain. Also with fever. Given community transmission of COVID-19, he is also under COVID-19 investigation. Overall doing better currently. Repeat LR 1 L bolus as blood pressure is soft but he is not hypotensive. He does not have findings of severe sepsis or septic shock and does not require high-volume fluid resuscitation. He has had the equivalent of approximately 30 mL/kg IV currently though. Lactic acid is not elevated. He does have findings of right lower lobe pneumonia on chest x-ray and laboratory findings to support that. Patient will be admitted for pneumonia with continued cardiac evaluation pending COVID-[address] Oliveira agrees to admission, inpatient status with cardiology on consult. Patient agrees to plan. (MIGEL STANTON MD) ECG Initial ECG Impression Date: Feb 27, 2020 Initial ECG Impression Time: 13:52 Initial ECG Rate: 97 Initial ECG Rhythm: Normal Sinus Comment Sinus rhythm with PVCs. No evidence of ST elevation SD. Rightward axis. Similar to previous of 02/05/20 although slightly slower. Interpreted by me. (MIGEL STANTON MD) Diagnostic Imaging Diagonstic Imaging: Xray Plain Films/CT/US/NM/MRI: chest Comments [facility] [place] NAME: [facility] REC#: [id number] PT STATUS: REG ER : 1960 PHYSICIAN: MIGEL STANTON MD ADMIT DATE: 02/27/20/ER Draft Date of Exam:02/27/20 CHEST 1 VIEW, AP/PA ONLY EXAMINATION: Portable erect AP chest at 02:57 p.m. INDICATION: Generalized weakness. FINDINGS: The heart size is within normal limits and similar to the prior exam of 02/16/2020. The alveolar/interstitial infiltrates involving both lungs, primarily the left mid lung and the right lung base seen previously are again evident. The density in the right lung base may be somewhat greater than on the prior study. No new abnormality has developed otherwise. There is still no sign of a significant pleural effusion. The mediastinum is not widened. The osseous structures are intact. The long-standing fracture of the right clavicle seen previously is again evident. IMPRESSION: The appearance of the chest has worsened somewhat since the prior study as there does appear to be greater involvement of the right lung base by pneumonia/atelectasis. A follow-up study will be recommended for continued evaluation. Dictated on workstation # [id number] Dict: 02/27/20 1512 Trans: 02/27/20 1517 [id number] Interpreted by: RITIKA COREY MD Electronically signed by: (MIGEL STANTON MD) Departure Communication (Admissions) Time/Spoke to Admitting Phy: 15:32 Time/Spoke to Consulting Phy: 15:36 (MIGEL STANTON MD) Impression Primary Impression: Right lower lobe pneumonia Qualified Codes: J18.1 - Lobar pneumonia, unspecified organism Additional Impressions: Chest pain Qualified Codes: R07.9 - Chest pain, unspecified COVID-19 evaluation Disposition: ADMITTED INPATIENT Condition: Stable Admissions Decision to Admit Reason: Admit from ER (General) Decision to Admit/Date: Feb 27, 2020 Time/Decision to Admit Time: 15:32 (MIGEL STANTON MD) Departure-Patient Inst. Referrals: NO,LOCAL PHYSICIAN (PCP/Family) Primary Care Physician KEVIN NEAL APRN Feb 27, 2020 14:49 MIGEL STANTON MD Feb 27, 2020 15:02
[2020-02-27 14:55] LABS: ERYTHROCYTE SEDIMENTATION RATE 68 MM/HR (0-30)
[2020-02-27 15:00] LABS: ALANINE AMINOTRANSFERASE 19 U/L (0-55)
--- NOTE | 2020-02-27 15:17 | Diagnostic Imaging Report ---
EXAMINATION: Portable erect AP chest at 02:57 p.m. INDICATION: Generalized weakness. FINDINGS: The heart size is within normal limits and similar to the prior exam of 02/16/2020. The alveolar/interstitial infiltrates involving both lungs, primarily the left mid lung and the right lung base seen previously are again evident. The density in the right lung base may be somewhat greater than on the prior study. No new abnormality has developed otherwise. There is still no sign of a significant pleural effusion. The mediastinum is not widened. The osseous structures are intact. The long-standing fracture of the right clavicle seen previously is again evident. IMPRESSION: The appearance of the chest has worsened somewhat since the prior study as there does appear to be greater involvement of the right lung base by pneumonia/atelectasis. A follow-up study will be recommended for continued evaluation. Dictated by: Dictated on workstation # [id number]
[2020-02-27 15:27] LABS: BILIRUBIN,URINE NEGATIVE (NEGATIVE); CLARITY,URINE CLEAR; COLOR,URINE YELLOW; GLUCOSE, URINE (UA) NEGATIVE (NEGATIVE); KETONES,URINE NEGATIVE (NEGATIVE); LEUKOCYTE ESTERASE ,URINE NEGATIVE (NEGATIVE); NITRITE,URINE NEGATIVE (NEGATIVE); PROTEIN,URINE NEGATIVE (NEGATIVE)
[2020-02-27] MEDS ORDERED: PIPERACILLIN SODIUM/TAZOBACTAM 4.5 GM in NS (IVPB) 100 ML IV ONE (15:30)
[2020-02-27 15:35] LABS: AMORPHOUS SEDIMENT,UR FEW AMOR URATES /LPF; BACTERIA,URINE NEGATIVE /HPF; RBC,URINE 0-2 /HPF; WBC,URINE 0-2 /HPF
[2020-02-27] MEDS ORDERED: CATHETER FLUSH 10 ML SYR IV PRN (16:15)
[2020-02-27] MEDS ORDERED: ONDANSETRON 4 MG/2 ML (SDV) Z0FRAN IV PRN (16:15)
[2020-02-27] MEDS: LACTATED RINGERS 1,000 ML IV SCH (17:08)
[2020-02-27] MEDS: RIVAROXABAN 20 MG TABLET (XARELTO) PO SCH (17:09)
[2020-02-27] MEDS ORDERED: EPINEPHrine 1 MG INJECTION 2 MG in NS (IVPB) 248 ML IV SCH (17:45)
[2020-02-27] MEDS: VASOPRESSIN INJECTION 20 UNIT in NORMAL SALINE 100 ML IV SCH (17:57)
[2020-02-27] MEDS: NOREPINEPHRINE 4 MG/250 ML 250 ML IV SCH (17:57)
--- OUTSIDE RECORDS SUMMARY | 2020-02-27 18:17 | XMS REPORT | Continuity of Care Document ---
Author Organization Unknown Address Unknown Phone Unavailable Allergies Active Description Code Type Severity Reaction Onset Reported/Identified Relationship to Patient Clinical Status Yes NO KNOWN DRUG ALLERGIES UNKNOWN UNKNOWN Yes No Known Drug Allergies [id number] Drug Allergy Mild N/A 07/11/2009 Medications Medication [...] CHR OBSTRUCTIVE PULMON DISEASE WITH (ACU 01/12/2020 SUYS FRIED, BLANE Harris Ot R06. 03 ACUTE [...] Ot D64. 9 ANEMIA, UNSPECIFIED 01/12/2020 BLANE JIAN MD Ot E86. 0 DEHYDRATION 01/12/2020 BLANE [...] BLANE Harris Ot E87. 6 HYPOKALEMIA 01/13/2020 BALNE JAIN MD Ot F17.210 NICOTINE DEPENDENCE, [...] Ot F17.210 NICOTINE DEPENDENCE, CIGARETTES, UNCOMPL 01/16/2020 BLAEN JAIN MD Ot I48. 91 UNSPECIFIED ATRIAL [...] AND THROMBOSIS OF ARTERIES OF T 01/22/2020 LBANE JAIN MD Ot J18. 9 PNEUMONIA, [...] Z87.891 PERSONAL HISTORY OF NICOTINE DEPENDENCE 01/30/2020 THERESA BELLAMY MD Ot D50. 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 8 OTHER SPECIFIED NUTRITIONAL DEFICIENCIES 01/30/2020 THERESA BELLAMY MD Ot E87. 6 HYPOKALEMIA 01/30/2020 THERESA BELLAMY MD Ot F17.210 NICOTINE DEPENDENCE, CIGARETTES, UNCOMPL 01/30/2020 THERESA BELLAMY MD Ot I25. 10 ATHSCL HEART DISEASE OF [place] CORONARY 01/30/2020 THERESA BELLAMY MD Ot I48. 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 1 STRICTURE OF ARTERY 01/30/2020 THERESA BELLAMY MD Ot I99. 8 OTHER DISORDER OF CIRCULATORY SYSTEM 01/30/2020 THERESA BELLAMY MD Ot J18. 9 PNEUMONIA, UNSPECIFIED ORGANISM 01/30/2020 THERESA BELLAMY MD Ot J96. 00 ACUTE RESPIRATORY FAILURE, UNSP W HYPOXI 01/30/2020 THERESA BELLAMY MD Ot R91. 8 OTHER NONSPECIFIC ABNORMAL FINDING OF [place]EV[place] 02/02/2020 BLANE JAIN MD Ot D50. 9 [...] Ot I25. 10 ATHSCL HEART DISEASE OF [place] CORONARY 02/04/2020 THERESA BELLAMY MD Ot I48. 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 1 STRICTURE OF ARTERY 02/04/2020 THERESA BELLAMY MD Ot I99. 8 OTHER DISORDER OF CIRCULATORY SYSTEM 02/04/2020 THERESA BELLAMY MD Ot J18. 9 PNEUMONIA, UNSPECIFIED ORGANISM 02/04/2020 THERESA BELLAMY MD Ot J96. 00 ACUTE RESPIRATORY FAILURE, UNSP W HYPOXI 02/04/2020 THERESA BELLAMY MD Ot R91. 8 OTHER NONSPECIFIC ABNORMAL FINDING OF [place] 02/05/2020 BLANE JAIN MD Ot D50. 9 IRON DEFICIENCY ANEMIA, UNSPECIFIED 02/05/2020 BLANE JAIN MD Ot D63. 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 8 DEFICIENCY OF OTHER SPECIFIED B GROUP 02/05/2020 BLANE JAIN MD Ot F29 UNSP PSYCHOSIS NOT DUE TO A SUBSTANCE OR 02/05/2020 BLANE JAIN MD Ot G72. 81 CRITICAL ILLNESS MYOPATHY 02/05/2020 BLANE JAIN MD Ot I48. 0 PAROXYSMAL ATRIAL FIBRILLATION 02/05/2020 BLANE JAIN MD Ot I75.021 ATHEROEMBOLISM OF RIGHT LOWER EXTREMITY 02/05/2020 BLANE JAIN MD Ot J18. 9 PNEUMONIA, UNSPECIFIED ORGANISM 02/05/2020 BLANE JAIN MD Ot J44. 0 CHR OBSTRUCTIVE PULMON DISEASE WITH (ACU 02/05/2020 BLANE JAIN MD Ot J96. 11 CHRONIC RESPIRATORY FAILURE WITH HYPOXIA 02/05/2020 BLANE JAIN MD Ot K22. 10 ULCER OF ESOPHAGUS WITHOUT BLEEDING 02/05/2020 BLANE JAIN MD Ot K29. 70 GASTRITIS, UNSPECIFIED, WITHOUT BLEEDING 02/05/2020 BLANE JAIN MD Ot K44. 9 DIAPHRAGMATIC HERNIA WITHOUT OBSTRUCTION 02/05/2020 BLANE JAIN MD Ot K92. 1 MELENA 02/05/2020 BLANE JAIN MD Ot R19. 5 OTHER FECAL ABNORMALITIES 02/05/2020 BLANE JAIN MD Ot R41. 0 DISORIENTATION, UNSPECIFIED 02/05/2020 BLANE JAIN MD Ot R53. 1 WEAKNESS 02/05/2020 BLANE JAIN MD Ot R53. 81 OTHER MALAISE 02/05/2020 BLANE JAIN MD Ot R64 CACHEXIA 02/05/2020 BLANE JAIN MD Ot R91. 8 OTHER NONSPECIFIC ABNORMAL FINDING OF [place] 02/05/2020 BLANE JAIN MD Ot Z87.891 PERSONAL HISTORY OF NICOTINE DEPENDENCE 02/05/2020 BLANE JAIN MD, Ot D50. 9 IRON DEFICIENCY ANEMIA, UNSPECIFIED 02/05/2020 BLANE JAIN MD Ot D63. 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 8 DEFICIENCY OF OTHER SPECIFIED B GROUP 02/05/2020 BLANE JAIN MD Ot F29 UNSP PSYCHOSIS NOT DUE TO A SUBSTANCE OR 02/05/2020 SUSY MD, BLANE M Ot I48. 0 PAROXYSMAL ATRIAL FIBRILLATION 02/05/2020 BLANE JAIN MD Ot I75.021 ATHEROEMBOLISM OF RIGHT LOWER EXTREMITY 02/05/2020 BLANE JAIN MD Ot J18. 9 PNEUMONIA, UNSPECIFIED ORGANISM 02/05/2020 BLANE JAIN MD Ot J44. 0 CHR OBSTRUCTIVE PULMON DISEASE WITH (ACU 02/05/2020 BLANE JAIN MD Ot R19. 5 OTHER FECAL ABNORMALITIES 02/05/2020 BLANE JAIN MD Ot R41. 0 DISORIENTATION, UNSPECIFIED 02/05/2020 BLANE JAIN MD Ot R53. 1 WEAKNESS 02/05/2020 BLANE JAIN MD Ot R53. 81 OTHER MALAISE 02/05/2020 BLANE JAIN MD Ot R64 CACHEXIA 02/05/2020 BLANE JAIN MD Ot R91. 8 OTHER NONSPECIFIC ABNORMAL FINDING OF [place] 02/05/2020 BLANE JAIN MD Ot Z87.891 PERSONAL HISTORY OF NICOTINE DEPENDENCE 02/05/2020 BLANE JAIN MD Ot D50. 9 IRON DEFICIENCY ANEMIA, UNSPECIFIED 02/05/2020 BLANE JAIN MD Ot D63. 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 8 DEFICIENCY OF OTHER SPECIFIED B GROUP 02/05/2020 BLANE JAIN MD Ot F29 UNSP PSYCHOSIS NOT DUE TO A SUBSTANCE OR 02/05/2020 BLANE JAIN MD Ot I48. 0 PAROXYSMAL ATRIAL FIBRILLATION 02/05/2020 BLANE JAIN MD Ot I75.021 ATHEROEMBOLISM OF RIGHT LOWER EXTREMITY 02/05/2020 BLANE JAIN MD Ot J18. 9 PNEUMONIA, UNSPECIFIED ORGANISM 02/05/2020 BLANE JAIN MD Ot J44. 0 CHR OBSTRUCTIVE PULMON DISEASE WITH (ACU 02/05/2020 BLANE JAIN MD Ot R19. 5 OTHER FECAL ABNORMALITIES 02/05/2020 BLANE JAIN MD Ot R41. 0 DISORIENTATION, UNSPECIFIED 02/05/2020 BLANE JAIN MD Ot R53. 1 WEAKNESS 02/05/2020 BLANE JAIN MD Ot R53. 81 OTHER MALAISE 02/05/2020 BLANE JAIN MD Ot R64 [place]HEXIA 02/05/2020 BLANE JAIN MD Ot R91. 8 OTHER NONSPECIFIC ABNORMAL FINDING OF [place] 02/05/2020 BLANE JAIN MD Ot Z87.891 PERSONAL HISTORY OF NICOTINE DEPENDENCE 02/05/2020 BLANE JAIN MD Ot D50. 9 IRON DEFICIENCY ANEMIA, UNSPECIFIED 02/05/2020 BLANE JAIN MD Ot D63. 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 8 DEFICIENCY OF OTHER SPECIFIED B GROUP 02/05/2020 BLANE JAIN MD Ot F29 UNSP PSYCHOSIS NOT DUE TO A SUBSTANCE OR 02/05/2020 BLANE JAIN MD Ot I48. 0 PAROXYSMAL ATRIAL FIBRILLATION 02/05/2020 BLANE JAIN MD Ot I75.021 ATHEROEMBOLISM OF RIGHT LOWER EXTREMITY 02/05/2020 BLANE JAIN MD Ot J18. 9 PNEUMONIA, UNSPECIFIED ORGANISM 02/05/2020 BLANE JAIN MD Ot J44. 0 CHR OBSTRUCTIVE PULMON DISEASE WITH (ACU 02/05/2020 BLANE JAIN MD Ot R19. 5 OTHER FECAL ABNORMALITIES 02/05/2020 BLANE JAIN MD Ot R41. 0 DISORIENTATION, UNSPECIFIED 02/05/2020 BLANE JAIN MD Ot R53. 1 WEAKNESS 02/05/2020 BLANE JAIN MD Ot R53. 81 OTHER MALAISE 02/05/2020 BLANE JAIN MD Ot R64 [place]HEXIA 02/05/2020 BLANE JAIN MD Ot R91. 8 OTHER NONSPECIFIC ABNORMAL FINDING OF [place] 02/05/2020 BLANE JAIN MD Ot Z87.891 PERSONAL HISTORY OF NICOTINE DEPENDENCE 02/05/2020 BLANE JAIN MD Ot D50. 9 IRON DEFICIENCY ANEMIA, UNSPECIFIED 02/05/2020 BLANE JAIN MD Ot D63. 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 8 DEFICIENCY OF OTHER SPECIFIED B GROUP 02/05/2020 BLANE JAIN MD Ot F29 UNSP PSYCHOSIS NOT DUE TO A SUBSTANCE OR 02/05/2020 BLANE JAIN MD Ot I48. 0 PAROXYSMAL ATRIAL FIBRILLATION 02/05/2020 BLANE JAIN MD Ot I75.021 ATHEROEMBOLISM OF RIGHT LOWER EXTREMITY 02/05/2020 BLANE JAIN MD Ot J18. 9 PNEUMONIA, UNSPECIFIED ORGANISM 02/05/2020 BLANE JAIN MD Ot J44. 0 CHR OBSTRUCTIVE PULMON DISEASE WITH (ACU 02/05/2020 BLANE JAIN MD Ot R19. 5 OTHER FECAL ABNORMALITIES 02/05/2020 BLANE JAIN MD Ot R41. 0 DISORIENTATION, UNSPECIFIED 02/05/2020 BLANE JAIN MD Ot R53. 1 WEAKNESS 02/05/2020 BLANE JAIN MD Ot R53. 81 OTHER MALAISE 02/05/2020 BLANE JAIN MD Ot R64 CACHEXIA 02/05/2020 BLANE JAIN MD Ot R91. 8 OTHER NONSPECIFIC ABNORMAL FINDING OF [place] 02/05/2020 BLANE JAIN MD Ot Z87.891 PERSONAL HISTORY OF NICOTINE DEPENDENCE 02/12/2020 THERESA BELLAMY MD Ot D50. 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 8 OTHER SPECIFIED NUTRITIONAL DEFICIENCIES 02/12/2020 THERESA BELLAMY MD Ot E87. 6 HYPOKALEMIA 02/12/2020 THERESA BELLAMY MD Ot F17.210 NICOTINE DEPENDENCE, CIGARETTES, UNCOMPL 02/12/2020 THERESA BELLAMY MD Ot I25. 10 ATHSCL HEART DISEASE OF [place] CORONARY 02/12/2020 THERESA BELLAMY MD Ot I48. 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 1 STRICTURE OF ARTERY 02/12/2020 THERESA BELLAMY MD Ot I99. 8 OTHER DISORDER OF CIRCULATORY SYSTEM 02/12/2020 THERESA BELLAMY MD Ot J18. 9 PNEUMONIA, UNSPECIFIED ORGANISM 02/12/2020 THERESA BELLAMY MD Ot J96. 00 ACUTE RESPIRATORY FAILURE, UNSP W HYPOXI 02/12/2020 THERESA BELLAMY MD Ot R91. 8 OTHER NONSPECIFIC ABNORMAL FINDING OF N[place] 02/13/2020 DANA DO, LOI Ot D64.9 ANEMIA, UNSPECIFIED 02/13/2020 DANA DO, LOI Ot F32.9 MAJOR DEPRESSIVE DISORDER, SINGLE EPISOD 02/13/2020 DANA DO, LOI Ot F41.9 ANXIETY DISORDER, UNSPECIFIED 02/13/2020 DANA DO, LOI Ot G72.81 CRITICAL ILLNESS MYOPATHY 02/13/2020 DANA DO, LOI Ot I10 ESSENTIAL (PRIMARY) HYPERTENSION 02/13/2020 DANA DO, LOI Ot I48.91 UNSPECIFIED ATRIAL FIBRILLATION 02/13/2020 CORTEZ DO, LOI Ot I73.9 PERIPHERAL VASCULAR DISEASE, UNSPECIFIED 02/13/2020 DANA DO, LOI Ot J18.9 PNEUMONIA, UNSPECIFIED ORGANISM 02/13/2020 DANA DO, LOI Ot J44.1 CHRONIC OBSTRUCTIVE PULMONARY DISEASE W 02/13/2020 DANA DO, LOI Ot K29.70 GASTRITIS, UNSPECIFIED, WITHOUT BLEEDING 02/13/2020 DANA DO, LOI Ot K44.9 DIAPHRAGMATIC HERNIA WITHOUT OBSTRUCTION 02/13/2020 CORTEZ DO, LOI Ot R64 CACHEXIA 02/13/2020 CORTEZ DO, LOI Ot R91.8 OTHER NONSPECIFIC ABNORMAL FINDING OF NEV[place] 02/13/2020 DANA DO LOI Ot Z87.09 PERSONAL HISTORY OF OTHER DISEASES OF TH 02/13/2020 DANA MOFFETT LOI Ot 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 02/13/2020 DANA MOFFETT LOI Ot Z87.89 1 PERSONAL HISTORY OF NICOTINE DEPENDENCE 02/13/2020 DANA MOFFETT LOI Ot Z99.81 DEPENDENCE ON SUPPLEMENTAL OXYGEN 02/17/2020 CORTEZ DO, LOI Ot D64.9 ANEMIA, UNSPECIFIED 02/17/2020 CORTEZ DO, LOI Ot D72.82 8 OTHER ELEVATED WHITE BLOOD CELL COUNT 02/17/2020 CORTEZ DO, LOI Ot F32.9 MAJOR DEPRESSIVE DISORDER, SINGLE EPISOD 02/17/2020 CORTEZ DO, LOI Ot F41.9 ANXIETY DISORDER, UNSPECIFIED 02/17/2020 CORTEZ DO, LOI Ot G72.81 CRITICAL ILLNESS MYOPATHY 02/17/2020 CORTEZ DO, LOI Ot I10 ESSENTIAL (PRIMARY) HYPERTENSION 02/17/2020 CORTEZ DO, LOI Ot I25.10 ATHSCL HEART DISEASE OF [place] CORONARY 02/17/2020 CORTEZ DO, LOI Ot I48.0 PAROXYSMAL ATRIAL FIBRILLATION 02/17/2020 CORTEZ DO, LOI Ot I73.9 PERIPHERAL VASCULAR DISEASE, UNSPECIFIED 02/17/2020 CORTEZ DO, LOI Ot J18.9 PNEUMONIA, UNSPECIFIED ORGANISM 02/17/2020 CORTEZ DO, LOI Ot J44.1 CHRONIC OBSTRUCTIVE PULMONARY DISEASE W 02/17/2020 CORTEZ DO, LOI Ot K29.70 GASTRITIS, UNSPECIFIED, WITHOUT BLEEDING 02/17/2020 CORTEZ DO, LOI Ot K44.9 DIAPHRAGMATIC HERNIA WITHOUT OBSTRUCTION 02/17/2020 CORTEZ DO, LOI Ot M47.9 SPONDYLOSIS, UNSPECIFIED 02/17/2020 CORTEZ DO, LOI Ot R64 CACHEXIA 02/17/2020 CORTEZ DO, LOI Ot R91.8 OTHER NONSPECIFIC ABNORMAL FINDING OF [place] 02/17/2020 CORTEZ DO, LOI Ot T38.0X 5A ADVERSE EFFECT OF GLUCOCORT/SYNTH ANALOG 02/17/2020 CORTEZ DO, LOI Ot Z87.09 PERSONAL HISTORY OF OTHER DISEASES OF 02/17/2020 CORTEZ DO, LOI Ot 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 02/17/2020 DANA DO, LOI Ot Z87.89 1 PERSONAL HISTORY OF NICOTINE DEPENDENCE 02/17/2020 CORTEZ DO, LOI Ot Z99.81 DEPENDENCE ON SUPPLEMENTAL OXYGEN Procedures Code Description Performed By Asaf venegas On [id number] DI LATION OF RIGHT FEMORAL ARTERY, PERCUT 01/13/2020 [id number] DI LATION OF RIGHT POPLITEAL ARTERY, PERC 01/13/2020 [id number] IN TRODUCE OF OTH THROMBOLYTIC INTO PERIP 01/13/2020 [id number] FL UOROSCOPY OF AORTA, BI LE ART USING L 01/13/2020 [id number] FL UOROSCOPY OF R LOW EXTREM ART USING L 01/13/2020 [id number] IN SERTION OF ENDOTRACHEAL AIRWAY INTO TR 01/17/2020 [id number] RE SPIRATORY VENTILATION, 24- 96 CONSECUTI 01/17/2020 [id number] EX CISION OF ESOPHAGOGASTRIC JUNCTION, EN 02/04/2020 [id number] EX CISION OF STOMACH, ENDO, DIAGN 02/04/2020 [id number] EX CISION OF STOMACH, PYLORUS, ENDO, DIAG 02/04/2020 [id number] EX CISION OF DUODENUM, ENDO, DIAGN 02/04/2020 Results Test Result Range BNP - 01/11/20 [...] 01/11/20 13:25 COVID19 Sent to [facility], Results have been scanned Influenza - 01/11/20 [...] 01/12/20 07:45 PROCALCITONIN (PCT) 1.36 ng/mL <0.10 [id number] - 01/12/20 07:45 Prothrombin time (PT) in [...] pa bel - 01/15/20 05:50 WRISTBAND NUMBER [id number] NRG ABO+Rh group AP NRG Blood group [...] OF GROWTH Rare NRG Bacterial sputum culture [id number] NR Arterial blood gas measurement - 0 [...] Blood macrocytes detection by light microscopy SLI T NRG Blood toxic granules detection by light microscopy 2+ NRG Blood poikilocytosis detection by light microscopy SLIGHT NRG Blood hypochromia detection by light microscopy [facility] PROCALCITONIN (PCT) - 02/03/20 07:28 PROCALCITONIN (PCT) 0.20 ng/mL <0.10 IRON TEST - 02/03/20 07:28 Serum or plasma iron measurement (mass/volume) 41 % 40-180 Methicillin resistant Staphylococcus aur eus (MRSA) screening culture - 02/03/20 12:15 Methicillin resistant Staphylococcus aureus (MRSA) scr eening culture NEG NRG Complete blood count (CBC) with automate d white blood cell (WBC) differential - 02/06/20 06:53 Blood leukocytes automated count (number/volume) 14.6 10*3/uL 4.3-11.0 Blood erythrocytes automated count (number/volume) 2.97 10*6/uL 4.35-5.85 Venous blood hemoglobin measurement (mass/volume) 9.3 g/dL 13.3-17.7 Blood hematocrit (volume fraction) 30 % 40-54 Automated erythrocyte mean corpuscular volume 101 [foz_us] 80-99 Automated erythrocyte mean corpuscular h emoglobin (mass per erythrocyte) 31 pg 25-34 Automated erythrocyte mean corpuscular h emoglobin concentration measurement (mass/volume) 31 g/dL 32-36 Automated erythrocyte distribution width ratio 18. 4 % 10.0- 14.5 Automated blood platelet count (count/volume) 642 10*3/uL 130-400 Automated blood platelet mean volume measurement 9.1 [foz_us] 7.4-10.4 Automated blood neutrophils/100 leukocytes 81 % 42-75 Automated blood lymphocytes/100 leukocytes 9 % 12-44 Blood monocytes/100 leukocytes 8 % 0-12 Automated blood eosinophils/100 leukocytes 2 % 0-10 Automated blood basophils/100 leukocytes 0 % 0-10 Blood neutrophils automated count (number/volume) 11.8 10*3 1.8-7.8 Blood lymphocytes automated count (number/volume) 1.3 10*3 1.0-4.0 Blood monocytes automated count (number/volume) 1. 2 10*3 0.0-1.0 Automated eosinophil count 0.2 10*3/uL 0 .0-0.3 Automated blood basophil count (count/volume) 0.0 10*3/uL 0.0-0.1 Comprehensive metabolic panel - 02/06/20 06:53 Serum or plasma sodium measurement (moles/volume) 136 mmol/L 135-145 Serum or plasma potassium measurement (moles/volume) 4.3 mmol/L 3.6-5.0 Serum or plasma chloride measurement (moles/volume) 101 mmol/L 98-107 Carbon dioxide 26 mmol/L 21-32 Serum or plasma anion gap determination (moles/volume) 9 mmol/L 5-14 Serum or plasma urea nitrogen measurement (mass/volume ) 17 mg/dL 7-18 Serum or plasma creatinine measurement (mass/volume) 0.53 mg/dL 0.60-1.30 Serum or plasma urea nitrogen/creatinine mass ratio 32 NRG Serum or plasma creatinine measurement w ith calculation of estimated glomerular filtration rate > NRG Serum or plasma glucose measurement (mass/volume) 113 mg/dL 70-105 Serum or plasma calcium measurement (mass/volume) 8.6 mg/dL 8.5-10.1 Serum or plasma total bilirubin measurement (mass/volu me) 0.1 mg/dL 0.1-1.0 Serum or plasma alkaline phosphatase mary surement (enzymatic activity/volume) 114 U/L 40-136 Serum or plasma aspartate aminotransfera se measurement (enzymatic activity/volume) 26 U/L 5-34 Serum or plasma alanine aminotransferase measurement (enzymatic activity/volume) 35 U/L 0-55 Serum or plasma protein measurement (mass/volume) 6.8 g/dL 6.4-8.2 Serum or plasma albumin measurement (mass/volume) 2.9 g/dL 3.2-4.5 CALCIUM CORRECTED 9.5 mg/dL 8.5-10.1 Blood lactic acid measurement (moles/vol ume) - 02/06/20 06:53 Blood lactic acid measurement (moles/volume) 1.45 mmol/L 0.50-2.00 PROCALCITONIN (PCT) - 02/06/20 06:53 PROCALCITONIN (PCT) 0.21 ng/mL <0.10 Manual absolute plasma cell count - 01/16 11/06 06:53 Blood monocytes/100 leukocytes 5 % NRG Manual blood segmented neutrophils/100 leukocytes 67 % NRG Blood band neutrophils/100 leukocytes 11 % NRG Manual blood lymphocytes/100 leukocytes 16 % NRG Manual eosinophils/100 leukocytes in nose 1 % NRG Manual blood basophils/100 leukocytes 0 % NRG Blood polychromasia detection by light microscopy SLIGHT NRG Blood anisocytosis detection by light microscopy S LIGHT NRG Blood macrocytes detection by light microscopy [facility] NR Complete blood count (CBC) with automate d white blood cell (WBC) differential - 02/09/20 06:07 Blood leukocytes automated count (number/volume) 16.1 10*3/uL 4.3-11.0 Blood erythrocytes automated count (number/volume) 2.83 10*6/uL 4.35-5.85 Venous blood hemoglobin measurement (mass/volume) 9.0 g/dL 13.3-17.7 Blood hematocrit (volume fraction) 29 % 40-54 Automated erythrocyte mean corpuscular volume 101 [foz_us] 80-99 Automated erythrocyte mean corpuscular h emoglobin (mass per erythrocyte) 32 pg 25-34 Automated erythrocyte mean corpuscular h emoglobin concentration measurement (mass/volume) 32 g/dL 32-36 Automated erythrocyte distribution width ratio 18. 0 % 10.0- 14.5 Automated blood platelet count (count/volume) 738 10*3/uL 130-400 Automated blood platelet mean volume measurement 8.7 [foz_us] 7.4-10.4 Automated blood neutrophils/100 leukocytes 72 % 42-75 Automated blood lymphocytes/100 leukocytes 16 % 12-44 Blood monocytes/100 leukocytes 10 % 0-12 Automated blood eosinophils/100 leukocytes 1 % 0-10 Automated blood basophils/100 leukocytes 1 % 0-10 Blood neutrophils automated count (number/volume) 11.7 10*3 1.8-7.8 Blood lymphocytes automated count (number/volume) 2.6 10*3 1.0-4.0 Blood monocytes automated count (number/volume) 1. 6 10*3 0.0-1.0 Automated eosinophil count 0.2 10*3/uL 0 .0-0.3 Automated blood basophil count (count/volume) 0.1 10*3/uL 0.0-0.1 Comprehensive metabolic panel - 02/09/20 06:07 Serum or plasma sodium measurement (moles/volume) 138 mmol/L 135-145 Serum or plasma potassium measurement (moles/volume) 4.1 mmol/L 3.6-5.0 Serum or plasma chloride measurement (moles/volume) 103 mmol/L 98-107 Carbon dioxide 24 mmol/L 21-32 Serum or plasma anion gap determination (moles/volume) 11 mmol/L 5-14 Serum or plasma urea nitrogen measurement (mass/volume ) 24 mg/dL 7-18 Serum or plasma creatinine measurement (mass/volume) 0.57 mg/dL 0.60-1.30 Serum or plasma urea nitrogen/creatinine mass ratio 42 NRG Serum or plasma creatinine measurement w ith calculation of estimated glomerular filtration rate > NRG Serum or plasma glucose measurement (mass/volume) 95 mg/dL 70-105 Serum or plasma calcium measurement (mass/volume) 8.7 mg/dL 8.5-10.1 Serum or plasma total bilirubin measurement (mass/volu me) 0.1 mg/dL 0.1-1.0 Serum or plasma alkaline phosphatase mary surement (enzymatic activity/volume) 105 U/L 40-136 Serum or plasma aspartate aminotransfera se measurement (enzymatic activity/volume) 21 U/L 5-34 Serum or plasma alanine aminotransferase measurement (enzymatic activity/volume) 30 U/L 0-55 Serum or plasma protein measurement (mass/volume) 6.5 g/dL 6.4-8.2 Serum or plasma albumin measurement (mass/volume) 2.9 g/dL 3.2-4.5 CALCIUM CORRECTED 9.6 mg/dL 8.5-10.1 Complete blood count (CBC) with automate d white blood cell (WBC) differential - 02/10/20 04:45 Blood leukocytes automated count (number/volume) 17.2 10*3/uL 4.3-11.0 Blood erythrocytes automated count (number/volume) 2.78 10*6/uL 4.35-5.85 Venous blood hemoglobin measurement (mass/volume) 8.7 g/dL 13.3-17.7 Blood hematocrit (volume fraction) 28 % 40-54 Automated erythrocyte mean corpuscular volume 101 [foz_us] 80-99 Automated erythrocyte mean corpuscular h emoglobin (mass per erythrocyte) 31 pg 25-34 Automated erythrocyte mean corpuscular h emoglobin concentration measurement (mass/volume) 31 g/dL 32-36 Automated erythrocyte distribution width ratio 17. 9 % 10.0- 14.5 Automated blood platelet count (count/volume) 702 10*3/uL 130-400 Automated blood platelet mean volume measurement 8.7 [foz_us] 7.4-10.4 Automated blood neutrophils/100 leukocytes 74 % 42-75 Automated blood lymphocytes/100 leukocytes 16 % 12-44 Blood monocytes/100 leukocytes 9 % 0-12 Automated blood eosinophils/100 leukocytes 1 % 0-10 Automated blood basophils/100 leukocytes 1 % 0-10 Blood neutrophils automated count (number/volume) 12.6 10*3 1.8-7.8 Blood lymphocytes automated count (number/volume) 2.7 10*3 1.0-4.0 Blood monocytes automated count (number/volume) 1. 6 10*3 0.0-1.0 Automated eosinophil count 0.1 10*3/uL 0 .0-0.3 Automated blood basophil count (count/volume) 0.1 10*3/uL 0.0-0.1 Comprehensive metabolic panel - 02/10/20 04:45 Serum or plasma sodium measurement (moles/volume) 138 mmol/L 135-145 Serum or plasma potassium measurement (moles/volume) 4.5 mmol/L 3.6-5.0 Serum or plasma chloride measurement (moles/volume) 102 mmol/L 98-107 Carbon dioxide 28 mmol/L 21-32 Serum or plasma anion gap determination (moles/volume) 8 mmol/L 5-14 Serum or plasma urea nitrogen measurement (mass/volume ) 22 mg/dL 7-18 Serum or plasma creatinine measurement (mass/volume) 0.52 mg/dL 0.60-1.30 Serum or plasma urea nitrogen/creatinine mass ratio 42 NRG Serum or plasma creatinine measurement w ith calculation of estimated glomerular filtration rate > NRG Serum or plasma glucose measurement (mass/volume) 101 mg/dL 70-105 Serum or plasma calcium measurement (mass/volume) 8.6 mg/dL 8.5-10.1 Serum or plasma total bilirubin measurement (mass/volu me) < mg/dL 0.1-1.0 Serum or plasma alkaline phosphatase mary surement (enzymatic activity/volume) 88 U/L 40-136 Serum or plasma aspartate aminotransfera se measurement (enzymatic activity/volume) 20 U/L 5-34 Serum or plasma alanine aminotransferase measurement (enzymatic activity/volume) 29 U/L 0-55 Serum or plasma protein measurement (mass/volume) 6.3 g/dL 6.4-8.2 Serum or plasma albumin measurement (mass/volume) 2.8 g/dL 3.2-4.5 CALCIUM CORRECTED 9.6 mg/dL 8.5-10.1 Complete blood count (CBC) with automate d white blood cell (WBC) differential - 02/11/20 06:25 Blood leukocytes automated count (number/volume) 20.0 10*3/uL 4.3-11.0 Blood erythrocytes automated count (number/volume) 2.77 10*6/uL 4.35-5.85 Venous blood hemoglobin measurement (mass/volume) 8.8 g/dL 13.3-17.7 Blood hematocrit (volume fraction) 28 % 40-54 Automated erythrocyte mean corpuscular volume 102 [foz_us] 80-99 Automated erythrocyte mean corpuscular h emoglobin (mass per erythrocyte) 32 pg 25-34 Automated erythrocyte mean corpuscular h emoglobin concentration measurement (mass/volume) 31 g/dL 32-36 Automated erythrocyte distribution width ratio 18. 0 % 10.0- 14.5 Automated blood platelet count (count/volume) 739 10*3/uL 130-400 Automated blood platelet mean volume measurement 8.4 [foz_us] 7.4-10.4 Automated blood neutrophils/100 leukocytes 75 % 42-75 Automated blood lymphocytes/100 leukocytes 16 % 12-44 Blood monocytes/100 leukocytes 8 % 0-12 Automated blood eosinophils/100 leukocytes 1 % 0-10 Automated blood basophils/100 leukocytes 1 % 0-10 Blood neutrophils automated count (number/volume) 14.9 10*3 1.8-7.8 Blood lymphocytes automated count (number/volume) 3.2 10*3 1.0-4.0 Blood monocytes automated count (number/volume) 1. 7 10*3 0.0-1.0 Automated eosinophil count 0.1 10*3/uL 0 .0-0.3 Automated blood basophil count (count/volume) 0.1 10*3/uL 0.0-0.1 Comprehensive metabolic panel - 02/11/20 06:25 Serum or plasma sodium measurement (moles/volume) 141 mmol/L 135-145 Serum or plasma potassium measurement (moles/volume) 4.0 mmol/L 3.6-5.0 Serum or plasma chloride measurement (moles/volume) 103 mmol/L 98-107 Carbon dioxide 28 mmol/L 21-32 Serum or plasma anion gap determination (moles/volume) 10 mmol/L 5-14 Serum or plasma urea nitrogen measurement (mass/volume ) 23 mg/dL 7-18 Serum or plasma creatinine measurement (mass/volume) 0.58 mg/dL 0.60-1.30 Serum or plasma urea nitrogen/creatinine mass ratio 40 NRG Serum or plasma creatinine measurement w ith calculation of estimated glomerular filtration rate > NRG Serum or plasma glucose measurement (mass/volume) 110 mg/dL 70-105 Serum or plasma calcium measurement (mass/volume) 8.5 mg/dL 8.5-10.1 Serum or plasma total bilirubin measurement (mass/volu me) 0.1 mg/dL 0.1-1.0 Serum or plasma alkaline phosphatase mary surement (enzymatic activity/volume) 85 U/L 40-136 Serum or plasma aspartate aminotransfera se measurement (enzymatic activity/volume) 19 U/L 5-34 Serum or plasma alanine aminotransferase measurement (enzymatic activity/volume) 29 U/L 0-55 Serum or plasma protein measurement (mass/volume) 6.2 g/dL 6.4-8.2 Serum or plasma albumin measurement (mass/volume) 2.9 g/dL 3.2-4.5 CALCIUM CORRECTED 9.4 mg/dL 8.5-10.1 PROCALCITONIN (PCT) - 02/11/20 06:25 PROCALCITONIN (PCT) 0.18 ng/mL <0.10 Complete blood count (CBC) with automate d white blood cell (WBC) differential - 02/12/20 03:58 Blood leukocytes automated count (number/volume) 21.0 10*3/uL 4.3-11.0 Blood erythrocytes automated count (number/volume) 2.72 10*6/uL 4.35-5.85 Venous blood hemoglobin measurement (mass/volume) 8.5 g/dL 13.3-17.7 Blood hematocrit (volume fraction) 28 % 40-54 Automated erythrocyte mean corpuscular volume 102 [foz_us] 80-99 Automated erythrocyte mean corpuscular h emoglobin (mass per erythrocyte) 31 pg 25-34 Automated erythrocyte mean corpuscular h emoglobin concentration measurement (mass/volume) 31 g/dL 32-36 Automated erythrocyte distribution width ratio 18. 3 % 10.0- 14.5 Automated blood platelet count (count/volume) 719 10*3/uL 130-400 Automated blood platelet mean volume measurement 8.8 [foz_us] 7.4-10.4 Automated blood neutrophils/100 leukocytes 75 % 42-75 Automated blood lymphocytes/100 leukocytes 16 % 12-44 Blood monocytes/100 leukocytes 9 % 0-12 Automated blood eosinophils/100 leukocytes 1 % 0-10 Automated blood basophils/100 leukocytes 1 % 0-10 Blood neutrophils automated count (number/volume) 15.7 10*3 1.8-7.8 Blood lymphocytes automated count (number/volume) 3.3 10*3 1.0-4.0 Blood monocytes automated count (number/volume) 1. 8 10*3 0.0-1.0 Automated eosinophil count 0.1 10*3/uL 0 .0-0.3 Automated blood basophil count (count/volume) 0.1 10*3/uL 0.0-0.1 Comprehensive metabolic panel - 02/12/20 03:58 Serum or plasma sodium measurement (moles/volume) 141 mmol/L 135-145 Serum or plasma potassium measurement (moles/volume) 4.2 mmol/L 3.6-5.0 Serum or plasma chloride measurement (moles/volume) 105 mmol/L 98-107 Carbon dioxide 28 mmol/L 21-32 Serum or plasma anion gap determination (moles/volume) 8 mmol/L 5-14 Serum or plasma urea nitrogen measurement (mass/volume ) 26 mg/dL 7-18 Serum or plasma creatinine measurement (mass/volume) 0.53 mg/dL 0.60-1.30 Serum or plasma urea nitrogen/creatinine mass ratio 49 NRG Serum or plasma creatinine measurement w ith calculation of estimated glomerular filtration rate > NRG Serum or plasma glucose measurement (mass/volume) 96 mg/dL 70-105 Serum or plasma calcium measurement (mass/volume) 8.4 mg/dL 8.5-10.1 Serum or plasma total bilirubin measurement (mass/volu me) < mg/dL 0.1-1.0 Serum or plasma alkaline phosphatase mary surement (enzymatic activity/volume) 77 U/L 40-136 Serum or plasma aspartate aminotransfera se measurement (enzymatic activity/volume) 19 U/L 5-34 Serum or plasma alanine aminotransferase measurement (enzymatic activity/volume) 29 U/L 0-55 Serum or plasma protein measurement (mass/volume) 6.0 g/dL 6.4-8.2 Serum or plasma albumin measurement (mass/volume) 2.8 g/dL 3.2-4.5 CALCIUM CORRECTED 9.4 mg/dL 8.5-10.1 Manual absolute plasma cell count - 01/16 05/06 03:58 Blood monocytes/100 leukocytes 9 % NRG Manual blood segmented neutrophils/100 leukocytes 56 % NRG Blood band neutrophils/100 leukocytes 7 % NRG Manual blood lymphocytes/100 leukocytes 19 % NRG Manual eosinophils/100 leukocytes in nose 1 % NRG Manual blood lymphocytes variant/100 leukocytes 8 % NRG Blood anisocytosis detection by light microscopy M ODERATE NRG Blood macrocytes detection by light microscopy SLI GHT NRG Complete blood count (CBC) with automate d white blood cell (WBC) differential - 02/13/20 06:57 Blood leukocytes automated count (number/volume) 21.2 10*3/uL 4.3-11.0 Blood erythrocytes automated count (number/volume) 3.07 10*6/uL 4.35-5.85 Venous blood hemoglobin measurement (mass/volume) 9.6 g/dL 13.3-17.7 Blood hematocrit (volume fraction) 32 % 40-54 Automated erythrocyte mean corpuscular volume 103 [foz_us] 80-99 Automated erythrocyte mean corpuscular h emoglobin (mass per erythrocyte) 31 pg 25-34 Automated erythrocyte mean corpuscular h emoglobin concentration measurement (mass/volume) 30 g/dL 32-36 Automated erythrocyte distribution width ratio 18. 5 % 10.0- 14.5 Automated blood platelet count (count/volume) 723 10*3/uL 130-400 Automated blood platelet mean volume measurement 8.3 [foz_us] 7.4-10.4 Automated blood neutrophils/100 leukocytes 78 % 42-75 Automated blood lymphocytes/100 leukocytes 13 % 12-44 Blood monocytes/100 leukocytes 8 % 0-12 Automated blood eosinophils/100 leukocytes 1 % 0-10 Automated blood basophils/100 leukocytes 1 % 0-10 Blood neutrophils automated count (number/volume) 16.5 10*3 1.8-7.8 Blood lymphocytes automated count (number/volume) 2.8 10*3 1.0-4.0 Blood monocytes automated count (number/volume) 1. 6 10*3 0.0-1.0 Automated eosinophil count 0.1 10*3/uL 0 .0-0.3 Automated blood basophil count (count/volume) 0.1 10*3/uL 0.0-0.1 Whole blood basic metabolic panel - 01/16 06/06 06:57 Serum or plasma sodium measurement (moles/volume) 139 mmol/L 135-145 Serum or plasma potassium measurement (moles/volume) 3.9 mmol/L 3.6-5.0 Serum or plasma chloride measurement (moles/volume) 101 mmol/L 98-107 Carbon dioxide 27 mmol/L 21-32 Serum or plasma anion gap determination (moles/volume) 11 mmol/L 5-14 Serum or plasma urea nitrogen measurement (mass/volume ) 19 mg/dL 7-18 Serum or plasma creatinine measurement (mass/volume) 0.54 mg/dL 0.60-1.30 Serum or plasma urea nitrogen/creatinine mass ratio 35 NRG Serum or plasma creatinine measurement w ith calculation of estimated glomerular filtration rate > NRG Serum or plasma glucose measurement (mass/volume) 118 mg/dL 70-105 Serum or plasma calcium measurement (mass/volume) 8.8 mg/dL 8.5-10.1 PROCALCITONIN (PCT) - 02/13/20 06:57 PROCALCITONIN (PCT) 0.14 ng/mL <0.10 Complete blood count (CBC) with automate d white blood cell (WBC) differential - 02/16/20 06:15 Blood leukocytes automated count (number/volume) 15.9 10*3/uL 4.3-11.0 Blood erythrocytes automated count (number/volume) 2.93 10*6/uL 4.35-5.85 Venous blood hemoglobin measurement (mass/volume) 9.3 g/dL 13.3-17.7 Blood hematocrit (volume fraction) 30 % 40-54 Automated erythrocyte mean corpuscular volume 102 [foz_us] 80-99 Automated erythrocyte mean corpuscular h emoglobin (mass per erythrocyte) 32 pg 25-34 Automated erythrocyte mean corpuscular h emoglobin concentration measurement (mass/volume) 31 g/dL 32-36 Automated erythrocyte distribution width ratio 17. 9 % 10.0- 14.5 Automated blood platelet count (count/volume) 543 10*3/uL 130-400 Automated blood platelet mean volume measurement 8.7 [foz_us] 7.4-10.4 Automated blood neutrophils/100 leukocytes 79 % 42-75 Automated blood lymphocytes/100 leukocytes 10 % 12-44 Blood monocytes/100 leukocytes 10 % 0-12 Automated blood eosinophils/100 leukocytes 1 % 0-10 Automated blood basophils/100 leukocytes 0 % 0-10 Blood neutrophils automated count (number/volume) 12.5 10*3 1.8-7.8 Blood lymphocytes automated count (number/volume) 1.6 10*3 1.0-4.0 Blood monocytes automated count (number/volume) 1. 6 10*3 0.0-1.0 Automated eosinophil count 0.1 10*3/uL 0 .0-0.3 Automated blood basophil count (count/volume) 0.0 10*3/uL 0.0-0.1 Comprehensive metabolic panel - 02/16/20 06:15 Serum or plasma sodium measurement (moles/volume) 138 mmol/L 135-145 Serum or plasma potassium measurement (moles/volume) 4.2 mmol/L 3.6-5.0 Serum or plasma chloride measurement (moles/volume) 102 mmol/L 98-107 Carbon dioxide 27 mmol/L 21-32 Serum or plasma anion gap determination (moles/volume) 9 mmol/L 5-14 Serum or plasma urea nitrogen measurement (mass/volume ) 16 mg/dL 7-18 Serum or plasma creatinine measurement (mass/volume) 0.57 mg/dL 0.60-1.30 Serum or plasma urea nitrogen/creatinine mass ratio 28 NRG Serum or plasma creatinine measurement w ith calculation of estimated glomerular filtration rate > NRG Serum or plasma glucose measurement (mass/volume) 95 mg/dL 70-105 Serum or plasma calcium measurement (mass/volume) 9.2 mg/dL 8.5-10.1 Serum or plasma total bilirubin measurement (mass/volu me) 0.2 mg/dL 0.1-1.0 Serum or plasma alkaline phosphatase mary surement (enzymatic activity/volume) 71 U/L 40-136 Serum or plasma aspartate aminotransfera se measurement (enzymatic activity/volume) 18 U/L 5-34 Serum or plasma alanine aminotransferase measurement (enzymatic activity/volume) 30 U/L 0-55 Serum or plasma protein measurement (mass/volume) 6.3 g/dL 6.4-8.2 Serum or plasma albumin measurement (mass/volume) 3.1 g/dL 3.2-4.5 CALCIUM CORRECTED 9.9 mg/dL 8.5-10.1 [id number] - 02/16/20 06:15 [id number] 0.56 ng/mL 0.80-2.00 PROCALCITONIN (PCT) - 02/16/20 06:15 PROCALCITONIN (PCT) 0.17 ng/mL <0.10 Complete urinalysis with reflex to cultu re - 02/16/20 14:59 Urine color determination YELLOW NRG Urine clarity determination CLEAR NR G Urine pH measurement by test strip 6.0 5-9 Specific gravity of urine by test strip 1.020 1.016-1.022 Urine protein assay by test strip, [...] in urine sediment by light microsco py NEGATIVE NRG Squamous epithelial cells detection in u rine sediment by light microscopy RARE NRG Crystals detection in urine sediment by light microsco py NONE NRG Casts detection in urine sediment by light microscopy NONE NRG Mucus detection in urine sediment by light microscopy NEGATIVE NRG Complete urinalysis with reflex to culture NO NRG Complete blood count (CBC) with automate d white blood cell (WBC) differential - 02/27/20 14:00 Blood leukocytes automated count (number/volume) 9.6 10*3/uL 4.3-11.0 Blood erythrocytes automated count (number/volume) 3.39 10*6/uL 4.35-5.85 Venous blood hemoglobin measurement (mass/volume) 10.4 g/dL 13.3-17.7 Blood hematocrit (volume fraction) 33 % 40-54 Automated erythrocyte mean corpuscular volume 99 [ foz_us] 80-99 Automated erythrocyte mean corpuscular h emoglobin (mass per erythrocyte) 31 pg 25-34 Automated erythrocyte mean corpuscular h emoglobin concentration measurement (mass/volume) 31 g/dL 32-36 Automated erythrocyte distribution width ratio 15. 6 % 10.0- 14.5 Automated blood platelet count (count/volume) 584 10*3/uL 130-400 Automated blood platelet mean volume measurement 8.2 [foz_us] 7.4-10.4 Automated blood neutrophils/100 leukocytes 69 % 42-75 Automated blood lymphocytes/100 leukocytes 18 % 12-44 Blood monocytes/100 leukocytes 9 % 0-12 Automated blood eosinophils/100 leukocytes 4 % 0-10 Automated blood basophils/100 leukocytes 0 % 0-10 Blood neutrophils automated count (number/volume) 6.6 10*3 1.8-7.8 Blood lymphocytes automated count (number/volume) 1.7 10*3 1.0-4.0 Blood monocytes automated count (number/volume) 0. 9 10*3 0.0-1.0 Automated eosinophil count 0.4 10*3/uL 0 .0-0.3 Automated blood basophil count (count/volume) 0.0 10*3/uL 0.0-0.1 Comprehensive metabolic panel - 02/27/20 14:00 Serum or plasma sodium measurement (moles/volume) 137 mmol/L 135-145 Serum or plasma potassium measurement (moles/volume) 3.9 mmol/L 3.6-5.0 Serum or plasma chloride measurement (moles/volume) 103 mmol/L 98-107 Carbon dioxide 26 mmol/L 21-32 Serum or plasma anion gap determination (moles/volume) 8 mmol/L 5-14 Serum or plasma urea nitrogen measurement (mass/volume ) 11 mg/dL 7-18 Serum or plasma creatinine measurement (mass/volume) 0.59 mg/dL 0.60-1.30 Serum or plasma urea nitrogen/creatinine mass ratio 19 NRG Serum or plasma creatinine measurement w ith calculation of estimated glomerular filtration rate > NRG Serum or plasma glucose measurement (mass/volume) 115 mg/dL 70-105 Serum or plasma calcium measurement (mass/volume) 9.0 mg/dL 8.5-10.1 Serum or plasma total bilirubin measurement (mass/volu me) 0.2 mg/dL 0.1-1.0 Serum or plasma alkaline phosphatase mary surement (enzymatic activity/volume) 85 U/L 40-136 Serum or plasma aspartate aminotransfera se measurement (enzymatic activity/volume) 34 U/L 5-34 Serum or plasma alanine aminotransferase measurement (enzymatic activity/volume) 19 U/L 0-55 Serum or plasma protein measurement (mass/volume) 6.9 g/dL 6.4-8.2 Serum or plasma albumin measurement (mass/volume) 3.0 g/dL 3.2-4.5 CALCIUM CORRECTED 9.8 mg/dL 8.5-10.1 Blood lactic acid measurement (moles/vol ume) - 02/27/20 14:00 Blood lactic acid measurement (moles/volume) 1.44 mmol/L 0.50-2.00 Serum ragweed IgE antibody assay - 02/26 14:00 Serum ragweed IgE antibody assay 191 U/L 125-220 PROCALCITONIN (PCT) - 02/27/20 14:00 PROCALCITONIN (PCT) 0.08 ng/mL <0.10 PT panel in platelet poor plasma by coag ulation assay - 02/27/20 14:00 Prothrombin time (PT) in platelet poor plasma by coagu lation assay 13.7 s 12.2-14.7 INR in platelet poor plasma or blood by coagulation as say 1.0 0.8-1.4 Activated partial thromboplastin time (a PTT) in platelet poor plasma bycoagulation assay - 02/27/20 14:00 Activated partial thromboplastin time (a PTT) in platelet poor plasma bycoagulation assay 25 s 24-35 Fibrin D-dimer FEU measurement in platel et poor plasma (mass/volume) - 02/27/20 14:00 Fibrin D-dimer FEU measurement in platelet poor plasma (mass/volume) 0.89 ug/mL 0.00-0.49 Serum or plasma troponin i.cardiac measu rement (mass/volume) - 02/27/20 14:00 Serum or plasma troponin i.cardiac measurement (mass/v olume) < ng/mL <0.028 Erythrocyte sedimentation rate by yumiko gren method - 02/27/20 14:00 Erythrocyte sedimentation rate by westergren method 68 mm 0- 30 Serum or plasma C reactive protein measu rement (mass/volume) - 02/27/20 14:00 Serum or plasma C reactive protein measurement (mass/v olume) 3.81 mg/dL 0.00-0.50 Complete urinalysis with reflex to cultu re - 02/27/20 15:15 Urine color determination YELLOW NRG Urine clarity determination CLEAR NR G Urine pH measurement by test strip 6.0 5-9 Specific gravity of urine by test strip 1.020 1.016-1.022 Urine protein assay by test strip, [...] leukocyte count by microscopy (number/high power field) [HPF] NRG Bacteria detection in urine sediment by light microsco py NEGATIVE NRG Crystals detection in urine sediment by light microsco py PRESENT NRG Casts detection in urine sediment by light microscopy NONE NRG Mucus detection in urine sediment by light microscopy SMALL NRG Complete urinalysis with reflex to culture NO NRG Amorphous sediment detection in urine sediment by ligh t microscopy FEW MYA URATES NRG Encounters ACCT No. Visit Date/Time Discharge Status Pt. Type Provider Facility Loc./Unit Complaint [id number] 01/11/2020 12:51:00 01/11/2020 15:15 :00 DIS Outpatient [place] [facility] [place] [id number] 01/11/2020 13:18:12 Document Registration [id number] 02/05/2020 10:15:00 11:10:00 DIS Inpatient LOI CORTEZ DO [facility] IRF COPD MYOPATHY [id number] 01/23/2020 12:05:00 10:30:00 DIS Inpatient SUSY FRIED, BLANE Cerda [facility] 4TH PNEUMONIA;COPD [id number] 01/30/2020 13:00:00 05/15/2 020 18:30:00 DIS Outpatient JOSESITO FRIED, THERESA Hill [facility] CATH CHEST PAIN [id number] 01/11/2020 15:52:00 020 10:54:00 DIS Inpatient SUSY FRIED, BLANE Harris [facility] 4TH SEPSIS [id number] 04/12/2020 11:15:00 P EN Preadmit JENI DENISE DO [facility] RAD PNEUMONIA [id number] 02/27/2020 15:39:[address] Inpatient AD FRIED, CLAU Harris [facility] ICU RLL PNA,CHEST PAIN,COVID-19 EVAL
--- OUTSIDE RECORDS SUMMARY | 2020-02-27 21:00 | XMS REPORT | Continuity of Care Document ---
Author Organization Unknown Address Unknown Phone Unavailable Allergies Active Description Code Type Severity Reaction Onset Reported/Identified Relationship to Patient Clinical Status Yes NO KNOWN DRUG ALLERGIES UNKNOWN UNKNOWN Yes No Known Drug Allergies [id number] Drug Allergy Mild N/A 07/11/2009 Medications Medication [...] MD Ot D64. 9 ANEMIA, UNSPECIFIED 01/13/2020 LBANE JAIN MD Ot E86. 0 DEHYDRATION 01/13/2020 [...] J18. 9 PNEUMONIA, UNSPECIFIED ORGANISM 01/15/2020 BLANE JANI MD Ot J44. 0 CHR OBSTRUCTIVE PULMON [...] Ot I25. 10 ATHSCL HEART DISEASE OF [place] CORONARY 01/30/2020 THERESA BELLAMY MD Ot I48. [...] R91. 8 OTHER NONSPECIFIC ABNORMAL FINDING OF NEAV 02/02/2020 BLANE JAIN MD Ot D50. 9 [...] Ot I25. 10 ATHSCL HEART DISEASE OF [place] CORONARY 02/04/2020 THERESA BELLAMY MD Ot I48. [...] NONSPECIFIC ABNORMAL FINDING OF [place] 02/05/2020 BLANE JIAN MD Ot Z87.891 PERSONAL HISTORY OF NICOTINE [...] Ot I25. 10 ATHSCL HEART DISEASE OF [place] CORONARY 02/12/2020 THERESA BELLAMY MD Ot I48. 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 02/13/2020 DANA [...] LOI Ot I25.10 ATHSCL HEART DISEASE OF [place] CORONARY 02/17/2020 CORTEZ DO, LOI Ot I48.0 [...] Code Description Performed By Asaf venegas On [id number] DI LATION OF RIGHT FEMORAL ARTERY, PERCUT 01/13/2020 [id number] DI LATION OF RIGHT POPLITEAL ARTERY, PERC 01/13/2020 [id number] IN TRODUCE OF OTH THROMBOLYTIC INTO PERIP 01/13/2020 [id number] FL UOROSCOPY OF AORTA, BI LE ART USING L 01/13/2020 [id number] FL UOROSCOPY OF R LOW EXTREM ART USING L 01/13/2020 [id number] IN SERTION OF ENDOTRACHEAL AIRWAY INTO TR 01/17/2020 [id number] RE SPIRATORY VENTILATION, 24- 96 CONSECUTI 01/17/2020 [id number] EX CISION OF ESOPHAGOGASTRIC JUNCTION, EN 02/04/2020 [id number] EX CISION OF STOMACH, ENDO, DIAGN 02/04/2020 [id number] EX CISION OF STOMACH, PYLORUS, ENDO, DIAG 02/04/2020 [id number] EX CISION OF DUODENUM, ENDO, DIAGN 02/04/2020 [...] COVID19 - 01/11/20 13:25 COVID19 Sent to [facility], Results have been scanned Influenza - [...] 01/12/20 07:45 PROCALCITONIN (PCT) 1.36 ng/mL <0.10 [id number] - 01/12/20 07:45 Prothrombin time (PT) in [...] pa bel - 01/15/20 05:50 WRISTBAND NUMBER [id number] NRG ABO+Rh group AP NRG Blood group [...] OF GROWTH Rare NRG Bacterial sputum culture [id number] NR Arterial blood gas measurement - 0 [...] mmol/L 21.0-31.0 Body site RIGHT RADIAL ART AMRIAMA NRG Assessment of wrist artery patency prior [...] [facility]ochrom[facility] detection [facility] PROCALCITONIN (PCT) - 02/03/20 07:28 PROCALCITONIN [...] NRG Blood macrocytes detection by light microscopy [facility] NR Complete blood count (CBC) [...] g/dL 3.2-4.5 CALCIUM CORRECTED 9.9 mg/dL 8.5-10.1 [id number] - 02/16/20 06:15 [id number] 0.56 ng/mL 0.80-2.00 PROCALCITONIN (PCT) - 02/16/20 [...] Status Pt. Type Provider Facility Loc./Unit Complaint [id number] 01/11/2020 12:51:00 01/11/2020 15:15 :00 DIS Outpatient MOJGAN EL[place] [facility] [id number] 01/11/2020 13:18:12 Document Registration [id number] 02/05/2020 10:15:00 11:10:00 DIS Inpatient LOI CORTEZ DO [facility] IRF COPD MYOPATHY [id number] 01/23/2020 12:05:00 10:30:00 DIS Inpatient SUSY FRIED, BLANE Cerda [facility] 4TH PNEUMONIA;COPD [id number] 01/30/2020 13:00:00 05/15/2 020 18:30:00 DIS Outpatient JOSESITO FRIED, THERESA [facility] CATH CHEST PAIN [id number] 01/11/2020 15:52:00 020 10:54:00 DIS Inpatient SUSY FRIED, BLANE Harris [facility] 4TH SEPSIS [id number] 04/12/2020 11:15:00 P EN Preadmit JENI DENISE DO [facility] RAD PNEUMONIA [id number] 02/27/2020 15:39:[address] Inpatient AD FRIED, CLAU Harris [facility] ICU RLL PNA,CHEST PAIN,COVID-19 EVAL
[2020-02-27] MEDS ORDERED: ACETAMINOPHEN 325 MG TABLET PO PRN (22:00)
[2020-02-27] MEDS: PIPERACILLIN/TAZO 4.5 GM/NS 100 ML IV SCH ×2 (23:04)
[2020-02-28] VITALS (14 sets, daily range): BP systolic 104–125; BP diastolic 58–81
[2020-02-28] MEDS ORDERED: TEMAZEPAM 15 MG (RESTORIL) CAP PO ONE (00:15)
[2020-02-28] MEDS: VASOPRESSIN INJECTION 20 UNIT in NORMAL SALINE 100 ML IV SCH (02:16)
[2020-02-28] MEDS: NOREPINEPHRINE 4 MG/250 ML 250 ML IV SCH (02:17)
[2020-02-28 03:36] LABS: BASOPHILS % (AUTO) 0 % (0-10); EOSINOPHILS # (AUTO) 0.4 10^3/uL (0.0-0.3); EOSINOPHILS % (AUTO) 4 % (0-10); HEMATOCRIT 31 % (40-54); HEMOGLOBIN 9.7 G/DL (13.3-17.7); LYMPHOCYTES # (AUTO) 1.8 X 10^3 (1.0-4.0); LYMPHOCYTES % (AUTO) 20 % (12-44); MEAN CORPUSCULAR HEMOGLOBIN 31 PG (25-34); MEAN CORPUSCULAR HGB CONC 31 G/DL (32-36); MEAN CORPUSCULAR VOLUME 99 FL (80-99); MEAN PLATELET VOLUME 8.6 FL (7.4-10.4); MONOCYTES # (AUTO) 0.7 X 10^3 (0.0-1.0); MONOCYTES % (AUTO) 8 % (0-12); NEUTROPHILS # (AUTO) 6.2 X 10^3 (1.8-7.8); NEUTROPHILS % (AUTO) 68 % (42-75); PLATELET COUNT 535 10^3/uL (130-400); RED CELL DISTRIBUTION WIDTH 15.3 % (10.0-14.5); WHITE BLOOD COUNT 9.1 10^3/uL (4.3-11.0)
[2020-02-28 03:44] LABS: ALBUMIN 2.8 GM/DL (3.2-4.5)
[2020-02-28 03:45] LABS: CHLORIDE 107 MMOL/L (98-107); POTASSIUM 4.1 MMOL/L (3.6-5.0); SODIUM 142 MMOL/L (135-145)
[2020-02-28 03:47] LABS: GLUCOSE 100 MG/DL (70-105); TOTAL PROTEIN 6.5 GM/DL (6.4-8.2)
[2020-02-28 03:48] LABS: CARBON DIOXIDE 26 MMOL/L (21-32)
[2020-02-28 03:49] LABS: BILIRUBIN,TOTAL 0.2 MG/DL (0.1-1.0)
[2020-02-28 03:50] LABS: ALKALINE PHOSPHATASE 78 U/L (40-136)
[2020-02-28 03:51] LABS: GFR ESTIMATED > 60
[2020-02-28 03:52] LABS: BUN/CREATININE RATIO 17
[2020-02-28 03:54] LABS: ALANINE AMINOTRANSFERASE 16 U/L (0-55)
[2020-02-28] MEDS: PIPERACILLIN/TAZO 4.5 GM/NS 100 ML IV SCH ×2 (06:11)
[2020-02-28] MEDS: LACTATED RINGERS 1,000 ML IV SCH (06:11)
--- NOTE | 2020-02-28 06:58 | Pulmonary Consultation ---
History of Present Illness History of Present Illness Date Seen by Provider: Feb 28, 2020 Time Seen by Provider: 06:54 Date of Admission Allergies and Home Medications Allergies Coded Allergies: No Known Drug Allergies (Verified , 07/11/09) Home Medications Alprazolam 0.25 Mg Tablet, 0.25 MG PO Q8H PRN for ANXIETY Prescribed by: LOI CORTEZ on 02/15/201450 Cefdinir 300 Mg Capsule, 300 MG PO BID Prescribed by: LOI CORTEZ on 02/16/202158 Digoxin 250 Mcg Tablet, 0.25 MG PO DAILY Prescribed by: LOI CORTEZ on 02/15/201450 Diltiazem HCl 300 Mg Cap.er.24h, 300 MG PO DAILY Prescribed by: LOI CORTEZ on 02/15/201450 Ferrous Sulfate 325 Mg Tablet, 325 MG PO BID WITH MEALS Prescribed by: LOI CORTEZ on 02/15/201450 Fluticasone/Salmeterol 12 Gm Hfa.aer.ad, 0 PUFF IH RTBID Prescribed by: LOI CORTEZ on 02/15/201450 Folic Acid 1 Mg Tablet, 1 MG PO DAILY Prescribed by: LOI CORTEZ on 02/15/201450 Gabapentin 100 Mg Capsule, 200 MG PO TID Prescribed by: LOI CORTEZ on 02/15/201450 Guaifenesin 600 Mg Tab.er.12h, 600 MG PO BID Prescribed by: LOI CORTEZ on 02/15/201450 Ipratropium/Albuterol Sulfate 3 Ml Ampul.neb, 3 ML INH RTQ4HR Prescribed by: LOI CORTEZ on 02/15/201450 Lactulose 20 Gm/30 Ml Solution, 10 GM PO BID PRN for CONSTIPATION-2ND LINE Prescribed by: LOI CORTEZ on 02/15/201450 Multivitamin 1 Each Tablet, 1 EACH PO DAILY, (Reported) Oxycodone HCl 5 Mg Tablet, 5 MG PO Q4HR PRN for PAIN-SEVERE (8-10) Prescribed by: LOI CORTEZ on 02/15/201450 Pantoprazole Sodium 40 Mg Tablet.dr, 40 MG PO DAILY Prescribed by: LOI CORTEZ on 02/15/201450 Rivaroxaban 20 Mg Tablet, 20 MG PO DAILY@1700 Prescribed by: LOI CORTEZ on 02/15/20 1451 Sennosides/Docusate Sodium 1 Each Tablet, 1 EA PO BID Prescribed by: LOI CORTEZ on 02/15/20 1451 Past Xcpdfci-Yezjnt-Veyvck Hx Past Med/Social Hx: Reviewed Nursing Past Med/Soc Hx Patient Social History Alcohol Use: Past History Number of Drinks Today: AA Alcohol Beverage of Choice: Beer Recreational Drug Use: No Drug of Choice: "marijuana in the 's and s" Smoking Status: Former Smoker Type Used: Cigarettes Former Smoker, Quit: Dec 06, 2019 Recent Foreign Travel: No Contact w/Someone Who Travel: No Recent Infectious Disease Expo: No Recent Hopitalizations: Yes Physical Abuse: No Sexual Abuse: No Mistreated: No Fear: No Immunizations Up To Date Tetanus Booster (TDap): Unknown PED Vaccines UTD: No Seasonal Allergies Seasonal Allergies: Yes (hayfever) Past Medical History Surgeries: Yes (hernia repair, l ankle, l wrist, ) Orthopedic Respiratory: Yes Pneumonia, COPD Currently Using CPAP: No Currently Using BIPAP: No Cardiac: Yes Atrial Fibrillation, Deep Vein Thrombosis, Hypertension Neurological: Yes Sexually Transmitted Disease: No HIV/AIDS: No Genitourinary: No Renal Failure Gastrointestinal: Yes Abdominal Hernia, Gastrointestinal Bleed Musculoskeletal: No Chronic Back Pain Endocrine: No HEENT: No (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 oz. kg; 19.00 BMI Method: Exam Exam Vital Signs Date Time Temp Pulse Resp B/P (MAP) Pulse Ox O2 Delivery O2 Flow Rate FiO2 02/28/20 06:00 77 19 118/68 (85) 95 Nasal Cannula 2.00 02/28/20 05:00 65 19 114/63 (80) 95 Nasal Cannula 2.00 02/28/20 04:00 Nasal Cannula 3.00 02/28/20 04:00 75 20 122/81 (95) 94 Nasal Cannula 2.00 02/28/20 03:00 77 20 122/74 (90) 95 Nasal Cannula 2.00 02/28/20 02:00 74 23 115/73 (87) 95 Nasal Cannula 2.00 02/28/20 01:52 36.6 02/28/20 01:00 84 02/28/20 01:00 83 17 112/62 (79) 96 Nasal Cannula 2.00 02/28/20 00:00 78 16 117/61 (79) 92 Nasal Cannula 2.00 02/28/20 00:00 Nasal Cannula 3.00 02/27/20 23:22 Nasal Cannula 2.00 02/27/20 23:00 73 23 113/74 (87) 94 Nasal Cannula 3.00 02/27/20 22:00 71 25 116/67 (83) 95 Nasal Cannula 3.00 02/27/20 21:00 70 20 108/67 (81) 94 Nasal Cannula 3.00 02/27/20 20:38 36.4 75 16 109/65 (80) 96 Nasal Cannula 3.00 02/27/20 20:00 74 19 109/65 (80) 96 Nasal Cannula 4.00 02/27/20 20:00 Nasal Cannula 3.00 02/27/20 19:00 73 02/27/20 19:00 73 20 113/65 (81) 97 Nasal Cannula 4.00 02/27/20 18:00 73 12 99/65 (76) 98 Nasal Cannula 4.00 02/27/20 17:13 36.0 02/27/20 17:12 73 02/27/20 17:00 110/69 (83) Nasal Cannula 4.00 02/27/20 17:00 95 Nasal Cannula 4.00 02/27/20 17:00 80 18 115/76 99 02/27/20 14:06 Nasal Cannula 4.0 02/27/20 14:06 37.0 93 16 106/75 (85) 93 Nasal Cannula 4.00 02/27/20 13:50 94 Nasal Cannula 4.00 I & O 02/28/20 07:00 Intake Total 2650 ml Output Total 1500 ml Balance 1150 ml Height & Weight Height: '" Weight: lbs. oz. kg; 19.00 BMI Method: General Appearance: Chronically ill, Thin HEENT: PERRL/EOMI, Pharynx Normal Neck: Non Tender, Supple Respiratory: Crackles, Expiration, Wheezing Cardiovascular: No Murmur, Tachycardia Capillary Refill: Less Than 3 Seconds Extremity: Normal Range of Motion, Non Tender Neurologic/Psychiatric: Alert, Oriented x3 Skin: Warm/Dry, Other (tips of toes to the right foot blackened and has history of blood clots in that leg. This is known and persisting and not a new finding.) Results Lab Laboratory Tests 02/27/20 14:00 02/28/20 03:15 Assessment/Plan Assessment/Plan RLL resolving PNA -Procalcitonin is neg x 1 -- will repeat -If still neg D/C Abx -No Leukocytosis, No fever since admission -COVID is negative and COVID Ab is negative -D/C isolation -Will need repeat CT of chest in 8wks after discharge s/p Acute occlusion of artery of right lower extremity s/p abdominal aorta gram with TPA via cath - Last hospitalization -Pt is on Xeralto Tobacco use with probable severe COPD -Out pt testing -Start Albuterol, Spiriva, and Advair Will transfer to 4th floor. JENI DENISE DO Feb 28, 2020 06:58
[2020-02-28] MEDS ORDERED: RT-ALBUTEROL INHALER HFA (VENTOLIN HFA) 8 GM IH PRN (07:00)
[2020-02-28] MEDS ORDERED: RT-ALBUTEROL SULF 2.5 MG/3 ML PRE-MIX VIAL INH PRN ×2 (07:15→14:00)
[2020-02-28] MEDS ORDERED: TIOTROPIUM BROMIDE (SPIRIVA) 5'S INHALER IH SCH (08:00)
[2020-02-28] MEDS ORDERED: polyethylene glycoL POWDER 17 GM (MIRALAX) PACK PO PRN (08:45)
[2020-02-28] MEDS ORDERED: ONDANSETRON 4 MG/2 ML (SDV) Z0FRAN IV PRN (08:45)
[2020-02-28] MEDS ORDERED: MELATONIN 3 MG TABLET PO PRN (08:45)
[2020-02-28] MEDS ORDERED: ANTACID SUSP 30 ML UDC (MYLANTA) PO PRN (08:45)
[2020-02-28] MEDS ORDERED: BISACODYL 10 MG SUPP (DULCOLAX) PR PRN (08:45)
[2020-02-28] MEDS ORDERED: diphenhydrAMINE 25 MG TAB (BENADRYL) PO PRN (08:45)
[2020-02-28] MEDS ORDERED: MILK OF MAGNESIA 400 MG/5 ML 30 ML UDC PO PRN (08:45)
[2020-02-28] MEDS ORDERED: ONDANSETRON 4 MG (ZOFRAN) ORAL DISSOLVE TAB PO PRN (08:45)
[2020-02-28] MEDS ORDERED: GABAPENTIN 100 MG (NEURONTIN) CAP ONE (08:55)
[2020-02-28] MEDS ORDERED: predniSONE 20 MG TAB PO ONE (09:00)
[2020-02-28] MEDS: GABAPENTIN 100 MG (NEURONTIN) CAP PO SCH ×3 (09:09→20:09)
--- NOTE | 2020-02-28 09:20 | NUR ---
TRANSFERRED FROM ICU TO ROOM 410. ALERT AND COOPERATIVE. SKIN W/D. RIGHT GREAT TOE 2ND TOE, 3RD TOE WITH MOD AMT BLACK (GANGRENE-LIKE AREA'S) AND SCANT AMT OF 4TH AND 5TH TOES WITH BLACK AREA'S. SALINE LOCK TO RIGHT F/A CLEAR. SALINE LOCK TO LEFT AC CLEAR.
--- NOTE | 2020-02-28 09:24 | Physical Therapy Evaluation ---
PT Evaluation-General Medical Diagnosis Admission Date Feb 27, 2020 at 15:39 Medical Diagnosis: pneumonia/CP Onset Date: Feb 27, 2020 Therapy Diagnosis Therapy Diagnosis: debility Precautions Precautions/Isolations: Airborne Isolation, Standard Precautions Weight Bear Status Right Lower Extremity: Right Weight Bearing/Tolerated Left Lower Extremity: Left Weight Bearing/Tolerated Referral Physician: Roxanne Reason for Referral: Evaluation/Treatment Medical History Pertinent Medical History: Atrial Fib, Alcoholism, Renal Insufficiency, Smoking, TBI Current History EMS from home secondary to SOA, CP and dizziness (dismissed from NH 3 days prior) Reviewed History: Yes Social History Home: Single Level Current Living Status: Other Family Prior Prior Level of Function SCALE: Activities may be completed with or without assistive devices. 3-Gfqywodrtz-hcgjebr completes the activity by him/herself with no assistance from a helper. 5-Set-up or Clean-up Assistance-helper sets up or cleans up; patient completes activity. [place] assists only prior to or following the activity. 4-Supervision or Touching Assistance-helper provides verbal cues and/or touching/steadying and/or contact guard assistance as patient completes activity. Assistance may be provided throughout the activity or intermittently. 3-Partial/Moderate Assistance-helper does LESS THAN HALF the effort. [place] lifts, holds or supports trunk or limbs, but provides less than half the effort. 2-Substantial/Maximal Assistance-helper does MORE THAN HALF the effort. [place] lifts or holds trunk or limbs and provides more than half the effort. 1-Stsssxycm-rrqaqe does ALL the effort. Patient does none of the effort to complete the activity. Or, the assistance of 2 or more helpers is required for the patient to complete the activity. If activity was not attempted, code reason: 7-Patient Refused. 9-Not Applicable-not attempted and the patient did not perform the activity before the current illness, exacerbation or injury. 10-Not Attempted due to Environmental Limitations-(lack of equipment, weather restraints, etc.). 88-Not Attempted due to Medical Conditions or Safety Concerns. Bed Mobility: 6 Transfers (B,C,W/C): 6 Gait: 6 Indoor Mobility (Ambulation): Independent Stairs: Not Applicalbe Prior Devices Use: Manual wheelchair, Walker PT Evaluation-Current Subjective Patient reports 10/10/right foot pain. (noted increase in necrosis of toes compared to prior stay) Pain Numeric Pain Scale: 10-Worst Possible Pain Location: Right Location Body Site: Toe Pain Description: Chronic Objective Patient Orientation: Person, Time, Situation ROM/Strength ROM Lower Extremities bilateral LE WFL Strength Lower Extremities 3/5 grossly bilateral LE Integumentary/Posture Integumentary necrotic tips of right toes Bowel Incontinence: Yes Bladder Incontinence: Yes Posture slightly kyphotic Neuromuscular (Tone, Coordination, Reflexes) grossly intact Sensory Vision: Functional Hearing: Functional Sensation Right Lower Extremit: Intact Sensation Left Lower Extremity: Intact Transfers Roll Left to Right (QC): 5 Sit to Lying (QC): 5 Lying to Sitting/Side of Bed(Q: 5 Sit to Stand (QC): 7 Chair/Fsl-eo-Trjsg Xfer(QC): 7 Gait Does the Patient Walk?: No and Walking Goal IS indicated Balance Sitting Static: Normal Sitting Dynamic: Normal Assessment/Needs 59 y.o. male, will benefit from skilled PT to address functional strength and mobility. Patient has 10/10 right foot due to PVD and necrotic tips of toes, which is chronic. Rehab Potential: Guarded PT [facility] Goals Bonded Strand Operator Goals PT [facility] Goals Time Frame: Mar 13, 2020 Roll Left & Right (QC): 6 Sit to Lying (QC): 6 Lying-Sitting on Side/Bed(QC): 6 Sit to Stand (QC): 6 Chair/Wxr-or-Moboa Xfer(QC): 6 Toilet Transfer (QC): 6 Does the Patient Walk: Yes Walk 10 feet (QC): 6 Walk 50ft with 2 Turns (QC): 6 PT Plan Problem List Problem List: Activity Tolerance, Functional Strength, Safety, Balance, Gait, Transfer, Bed Mobility, Other (pain) Treatment/Plan Treatment Plan: Continue Plan of Care Treatment Plan: Bed Mobility, Education, Functional Activity Lorena, Functional Strength, Gait, Safety, Therapeutic Exercise, Transfers Treatment Duration: Mar 13, 2020 Frequency: 6 times per week Estimated Hrs Per Day: .25 hour per day Patient and/or Family Agrees t: Yes Time/GCodes Time In: 900 Time Out: 910 Total Billed Treatment Time: 10 Total Billed Treatment 1 visit EVLowC 10 min IDRIS ONEIL PT Feb 28, 2020 09:24
[2020-02-28] MEDS: DOCUSATE SODIUM 100 MG (COLACE) CAP PO SCH ×2 (09:41→20:08)
[2020-02-28] MEDS: DIGOXIN 0.25 MG (LANOXIN) TAB PO SCH (09:41)
[2020-02-28] MEDS: SENNOSIDES 8.6 MG (SENOKOT) TAB PO SCH ×2 (09:42→20:09)
[2020-02-28] MEDS: ADVAIR HFA 115/21 MCG INHALER 8 GM IH SCH ×2 (10:15→19:02)
[2020-02-28] MEDS: UMECLIDINIUM BROMIDE (INCRUSE ELLIPTA) 7'S IH SCH (10:16)
--- NOTE | 2020-02-28 10:45 | History & Physical-Hospitalist ---
History of Present Illness HPI/Chief Complaint Moshe Soto is a 59-year-old male with past medical history of hypertension, atrial fibrillation on Xarelto, peripheral arterial disease, COPD, anemia, malnutrition, possible lung mass, recurrent pneumonias, who presented with malaise. He reports an overall unwell feeling. He reports having chest pain which is severe. He reports the pain radiates to his right arm. He is also feeling short of breath. He is also feeling anxious. He denies any nausea or vomiting. He reports pain in his bilateral feet. Several toes on his right foot are black but he is unsure of how long they have been this way. He also re ports fevers, cough, and sore throat. Source: patient Exam Limitations: no limitations Date Seen 02/28/20 Time Seen by a Provider: 09:40 Attending Physician Clau Duong MD PCP No,Local Physician Referring Physician Date of Admission Feb 27, 2020 at 15:39 Home Medications & Allergies Home Medications Reviewed patient Home Medication Reconciliation performed by pharmacy medication reconciliations remote sensing technician and/or nursing. Patients Allergies have been reviewed. Allergies Allergies Coded Allergies No Known Drug Allergies (Mzypzvbp80/25/09) Past Ekvzpmj-Kdalge-Wlmrqp Hx Past Med/Social Hx: Reviewed Nursing Past Med/Soc Hx Patient Social History Alcohol Use: Past History Number of Drinks Today: AA Alcohol Beverage of Choice: Beer Recreational Drug Use: No Drug of Choice: "marijuana in the 80's and 90's" Smoking Status: Former Smoker Former Smoker, Quit: Dec 06, 2019 Type Used: Cigarettes Recent Foreign Travel: No Contact w/other who traveled: No Recent Hopitalizations: Yes Recent Infectious Disease Expo: No Immunizations Up To Date Tetanus Booster (TDap): Unknown Pediatric: No Seasonal Allergies Seasonal Allergies: Yes (hayfever) Past Medical History Surgeries: Orthopedic Respiratory: Pneumonia Currently Using CPAP: No Currently Using BIPAP: No Cardiac: Atrial Fibrillation, Deep Vein Thrombosis, Hypertension Sexually Transmitted Disease: No HIV/AIDS: No Genitourinary: Renal Failure Gastrointestinal: Abdominal Hernia, Gastrointestinal Bleed Musculoskeletal: Chronic Back Pain HEENT: Tinnitis Loss of Vision: Denies Hearing Impairment: Deaf Skin/Integumentary: Recent Skin Changes History of Blood Disorders: No Adverse Reaction to Blood Morrell: No Family History Reviewed Nursing Family Hx Alcoholism 19 FATHER 19 MOTHER Arthritis 19 FATHER 19 MOTHER Review of Systems Constitutional: fever, malaise EENTM: throat pain Respiratory: cough, short of breath Cardiovascular: chest pain Gastrointestinal: no symptoms reported Genitourinary: no symptoms reported Musculoskeletal: muscle pain (Feet) Skin: change in color Psychiatric/Neurological: Anxiety Physical Exam Physical Exam Vital Signs Vital Signs - First Documented 02/27/20 13:50 Pulse Ox 94 O2 Delivery Nasal Cannula O2 Flow Rate 4.00 Capillary Refill : Less Than 3 Seconds Height, Weight, BMI Height: '" Weight: lbs. oz. kg; 19.00 BMI Method: General Appearance: Anxious, Mild Distress HEENT: PERRL/EOMI, Pharynx Normal Neck: Normal Inspection, Supple Respiratory: Lungs Clear, Decreased Breath Sounds, Respiratory Distress (Tachypnea) Cardiovascular: Regular Rate, Rhythm, No Edema, No Murmur Gastrointestinal: Normal Bowel Sounds, Non Tender, Soft Extremity: No Calf Tenderness, No Pedal Edema, Other (Tenderness in the ankles and feet bilaterally, multiple toes on the right foot black, dorsalis pedis 2+ right and 1+ left) Neurologic/Psychiatric: Alert, Oriented x3, Motor Weakness Skin: Warm/Dry, Other (Blackened toes on the right foot) Results Results/Procedures Labs Laboratory Tests 02/27/20 14:00 02/28/20 03:15 Patient resulted labs reviewed. Imaging: Reviewed Imaging Report Assessment/Plan Admission Diagnosis Chest pain Admission Status: Inpatient Order (span 2 midnights) Reason for Inpatient Admission: Chest pain requiring further evaluation and treatment Dry gangrene of the right foot requiring surgical consultation Assessment and Plan Chest pain Troponin remains normal Monitor on telemetry Cardiology consulted, appreciate assistance D-dimer mildly elevated Check CT angiogram chest to rule out pulmonary embolism Possible pneumonia Atelectasis COPD with acute exacerbation Possible lung mass Chest x-ray with worsening right lower lobe pneumonia/atelectasis Afebrile, no leukocytosis Procalcitonin normal 2 COVID negative Stop antibiotics Begin steroids MAT protocol CT chest ordered Pulmonology consulted, appreciate assistance Dry gangrene of the right foot Consult general surgery, appreciate assistance Pain regimen ordered HTN AFib Continue home meds Anemia Hemoglobin 9.7, stable, continue to monitor DVT prophylaxis: Already receiving therapeutic anticoagulation Diagnosis/Problems Diagnosis/Problems (1) Chest pain Status: Acute Qualifiers: Chest pain type: unspecified Qualified Codes: R07.9 - Chest pain, unspecified (2) Acute on chronic respiratory failure with hypoxia Status: Acute (3) Dry gangrene Status: Acute (4) HTN (hypertension) Status: Chronic (5) Paroxysmal atrial fibrillation Status: Chronic (6) Anticoagulated Status: Chronic Clinical Quality Measures AMI/AHF: ASA po Prior to arrival: No DVT/VTE Risk/Contraindication: Risk Factor Score Per Nursin RFS Level Per Nursing on Admit: 4+=Very High CLAU DUONG MD Feb 28, 2020 10:45
[2020-02-28] MEDS ORDERED: HOLD METFORMIN - RECEIVED CONTRAST 20 ML VIAL IV SCH (12:00)
[2020-02-28] MEDS ORDERED: IOHEXOL 350 MG/ML 100 ML (OMNIPAQUE 350) VIAL IV ONE (12:00)
[2020-02-28] MEDS ORDERED: NS 100 ML (IVPB) BAG IV ONE (12:00)
--- NOTE | 2020-02-28 12:34 | Diagnostic Imaging Report ---
PROCEDURE: CT angiography of the chest with contrast. TECHNIQUE: Multiple contiguous axial images were obtained through the chest after uneventful bolus administration of intravenous contrast. 3D reconstructed CTA MIP acquisitions were also performed. Auto Exposure Controls were utilized during the CT exam to meet ALARA standards for radiation dose reduction. INDICATION: Shortness of air and chest pain. COMPARISON is made with recent CT chest from 02/12/2020. Evaluation of the pulmonary arterial system is without thromboembolism. No definite filling defects are seen within central, lobar or segmental branches. Thoracic aorta is normal caliber. No dissection is seen. There is no pericardial fluid. There is a small right pleural effusion, new since the prior exam. Marked emphysematous changes throughout both lungs is again noted. There is some worsening infiltrate in the posterior aspect of the right upper lobe. Consolidation with air bronchograms in the right middle lobe persists and also appears to be mildly worse. There is increasing airspace infiltrate in the posterior right lower lobe with a somewhat nodular component. On the left, cavitary changes in the upper lobe are again seen. There is some increasing airspace consolidation in the posterior aspect of the left upper lobe. There is also increasing nodular infiltrate in the posterior left lower lobe. Upper abdomen is unremarkable. IMPRESSION: 1. No evidence of pulmonary embolism or thoracic aortic dissection. 2. Worsening bilateral infiltrates and development of small right pleural effusion when compared with prior examination from 02/12/2020. Dictated by: Dictated on workstation # [id number]
[2020-02-28] MEDS: ALPRAZolam 0.5 MG (XANAX) TAB PO PRN (12:35)
[2020-02-28] MEDS: morphine INJ 4 MG/ML 1 ML (VIAL/SYRINGE) IVP PRN ×3 (12:36→20:09)
--- NOTE | 2020-02-28 14:17 | Consultation - Surgery ---
History of Present Illness History of Present Illness Patient Consulted On(elvis/time) 02/28/20 14:11 Time Seen by Provider: 12:10 History of Present Illness Surgery asked to consult regarding gangrene of toes on right foot. HPI per IM: Moshe Soto is a 59-year-old male with past medical history of hypertension, atrial fibrillation on Xarelto, peripheral arterial disease, COPD, anemia, malnutrition, possible lung mass, recurrent pneumonias, who presented with malaise. He reports an overall unwell feeling. He reports having chest pain which is severe. He reports the pain radiates to his right arm. He is also feeling short of breath. He is also feeling anxious. He denies any nausea or vomiting. He reports pain in his bilateral feet. Several toes on his right foot are black but he is unsure of how long they have been this way. He also reports fevers, cough, and sore throat. When I spoke to pt this afternoon his main complaint was tingling in feet and toes with pain shooting up into his leg. He states he is tired of the pain which he describes as severe. Allergies and Home Medications Allergies Coded Allergies: No Known Drug Allergies (Verified , 07/11/09) Home Medications Alprazolam 0.25 Mg Tablet, 0.25 MG PO Q8H PRN for ANXIETY Prescribed by: LOI CORTEZ on 02/15/201450 Cefdinir 300 Mg Capsule, 300 MG PO BID Prescribed by: LOI CORTEZ on 02/16/202158 Digoxin 250 Mcg Tablet, 0.25 MG PO DAILY Prescribed by: LOI CORTEZ on 02/15/201450 Diltiazem HCl 300 Mg Cap.er.24h, 300 MG PO DAILY Prescribed by: LOI CORTEZ on 02/15/201450 Ferrous Sulfate 325 Mg Tablet, 325 MG PO BID WITH MEALS Prescribed by: LOI CORTEZ on 02/15/201450 Fluticasone/Salmeterol 12 Gm Hfa.aer.ad, 0 PUFF IH RTBID Prescribed by: LOI CORTEZ on 02/15/201450 Folic Acid 1 Mg Tablet, 1 MG PO DAILY Prescribed by: LOI CORTEZ on 02/15/201450 Gabapentin 100 Mg Capsule, 200 MG PO TID Prescribed by: LOI CORTEZ on 02/15/201450 Guaifenesin 600 Mg Tab.er.12h, 600 MG PO BID Prescribed by: LOI CORTEZ on 02/15/201450 Ipratropium/Albuterol Sulfate 3 Ml Ampul.neb, 3 ML INH RTQ4HR Prescribed by: LOI CORTEZ on 02/15/201450 Lactulose 20 Gm/30 Ml Solution, 10 GM PO BID PRN for CONSTIPATION-2ND LINE Prescribed by: LOI CORTEZ on 02/15/201450 Multivitamin 1 Each Tablet, 1 EACH PO DAILY, (Reported) Oxycodone HCl 5 Mg Tablet, 5 MG PO Q4HR PRN for PAIN-SEVERE (8-10) Prescribed by: LOI CORTEZ on 02/15/201450 Pantoprazole Sodium 40 Mg Tablet.dr, 40 MG PO DAILY Prescribed by: LOI CORTEZ on 02/15/201450 Rivaroxaban 20 Mg Tablet, 20 MG PO DAILY@1700 Prescribed by: LOI CORTEZ on 02/15/201450 Sennosides/Docusate Sodium 1 Each Tablet, 1 EA PO BID Prescribed by: LOI CORTEZ on 02/15/201450 Patient Home Medication List Home Medication List Reviewed: Yes Past Ktngtpi-Sepbpl-Rlosno Hx Patient Social History Alcohol Use: Past History Number of Drinks Today: AA Recreational Drug Use: No Drug of Choice: "marijuana in the 80's and 90's" Smoking Status: Former Smoker Former Smoker, Quit: Dec 06, 2019 Type Used: Cigarettes Recent Foreign Travel: No Contact w/Someone Who Travel: No Recent Infectious Disease Expo: No Recent Hopitalizations: Yes Immunizations Up To Date Tetanus Booster (TDap): Unknown PED Vaccines UTD: No Seasonal Allergies Seasonal Allergies: Yes (hayfever) Surgeries History of Surgeries: Yes (hernia repair, l ankle, l wrist, ) Surgeries: Orthopedic Respiratory History of Respiratory Disorde: Yes Respiratory Disorders: Pneumonia, COPD Cardiovascular History of Cardiac Disorders: Yes Cardiac Disorders: Atrial Fibrillation, Deep Vein Thrombosis, Hypertension Neurological History of Neurological Disord: Yes (neuralgia) Reproductive System Sexually Transmitted Disease: No HIV/AIDS: No Genitourinary History of Genitourinary Disor: No Genitourinary Disorders: Renal Failure Gastrointestinal History of Gastrointestinal Di: Yes Gastrointestinal Disorders: Abdominal Hernia, Gastrointestinal Bleed Musculoskeletal History of Musculoskeletal Dis: No Musculoskeletal Disorders: Chronic Back Pain Endocrine History of Endocrine Disorders: No HEENT History of HEENT Disorders: No (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) HEENT Disorders: Tinnitis Loss of Vision: Denies Hearing Impairment: Deaf Cancer History of Cancer: No Psychosocial History of Psychiatric Problem: No Integumentary History of Skin or Integumenta: No Skin/Integumentary Disorders: Recent Skin Changes Blood Transfusions History of Blood Disorders: No Adverse Reaction to a Blood Tr: No Family Medical History Significant Family History: Other Conditions/Hx (Arthritis and Alcoholism in parents) Family Medial History: Alcoholism 19 FATHER 19 MOTHER Arthritis 19 FATHER 19 MOTHER Review of Systems-General Constitutional: chills, malaise, weakness EENTM: No blurred vision, No double vision, No mouth pain, No mouth swelling, No epistaxis Respiratory: cough, dyspnea on exertion; No hemoptysis; short of breath Cardiovascular: No chest pain; Hx of Intervention, palpitations Gastrointestinal: No abdominal pain, No nausea, No vomiting Genitourinary: No dysuria, No frequency, No hematuria Musculoskeletal: back pain, joint pain, joint swelling, muscle pain, muscle stiffness, muscle cramps, muscle weakness Skin: change in color, change in hair/nails; No hx of skin cancer Psychiatric/Neurological: Denies Anxiety, Denies Depressed; Numbness, Paresthesia; Denies Seizure; Tingling; Denies Tremors Other pt is on blood thinners and states he bruises easily Physical Exam-General Problems Physical Exam Vital Signs Vital Signs - First Documented 02/27/20 13:50 Pulse Ox 94 O2 Delivery Nasal Cannula O2 Flow Rate 4.00 Capillary Refill : Less Than 3 Seconds General Appearance: no apparent distress, cachetic Eyes: Bilateral Eye PERRL, Bilateral Eye EOMI HEENT: pharynx normal; No scleral icterus (R), No scleral icterus (L) Neck: non-tender, supple Respiratory: no respiratory distress, no accessory muscle use, decreased breath sounds (upper lobe left), crackles, wheezing, expiration Cardiovascular: regular rate, rhythm, no murmur Gastrointestinal: non tender, soft, no organomegaly Back: no CVA tenderness, no vertebral tenderness Extremities: no calf tenderness, slow capillary refill, other (dry gangrene 1-2 toes, with small spots of necrosis on bottom of pads of toes 3-5) Neurologic/Psychiatric: legal support assistant II-XII nml as tested, alert, normal mood/affect Skin: normal color, warm/dry Lymphatic: no adenopathy (neck, axilla or groin) Data Review Labs Laboratory Tests 02/27/20 14:35: Coronavirus (COVID-19)(PCR) Negative 02/27/20 15:15: Urine Color YELLOW, Urine Clarity CLEAR, Urine pH 6.0, Urine Specific [place] 1.020, Urine Protein NEGATIVE, Urine Glucose (UA) NEGATIVE, Urine Ketones NEGATIVE, Urine Nitrite NEGATIVE, Urine Bilirubin NEGATIVE, Urine Urobilinogen 0.2, Urine Leukocyte Esterase NEGATIVE, Urine RBC (Auto) NEGATIVE, Urine RBC 0- 2, Urine WBC 0-2, Urine Crystals PRESENTH, Urine Amorphous Sediment FEW MYA URATESH, Urine Bacteria NEGATIVE, Urine Casts NONE, Urine Mucus SMALLH, Urine Culture Indicated NO 02/27/20 20:50: Troponin I < 0.028 02/28/20 03:15: Troponin I < 0.028, White Blood Count 9.1, Red Blood Count 3.18L, Hemoglobin 9.7L, Hematocrit 31L, Mean Corpuscular Volume 99, Mean Corpuscular Hemoglobin 31, Mean Corpuscular Hemoglobin Concent 31L, Red Cell Distribution Width 15.3H, Platelet Count 535H, Mean Platelet Volume 8.6, Neutrophils (%) (Auto) 68, Lymphocytes (%) (Auto) 20, Monocytes (%) (Auto) 8, Eosinophils (%) (Auto) 4, Basophils (%) (Auto) 0, Neutrophils # (Auto) 6.2, Lymphocytes # (Auto) 1.8, Monocytes # (Auto) 0.7, Eosinophils # (Auto) 0.4H, Basophils # (Auto) 0.0, Sodium Level 142, Potassium Level 4.1, Chloride Level 107, Carbon Dioxide Level 26, Anion Gap 9, Blood Urea Nitrogen 10, Creatinine 0.60, Estimat Glomerular Filtration Rate > 60, BUN/Creatinine Ratio 17, Glucose Level 100, Calcium Level 9.0, Corrected Calcium 10.0, Total Bilirubin 0.2, Aspartate Amino Transf (AST/SGOT) 24, Alanine Aminotransferase (ALT/SGPT) 16, Alkaline Phosphatase 78, Total Protein 6.5, Albumin 2.8L, Procalcitonin 0.06 Microbiology 02/27/20 Urine Culture - Final, Complete NO GROWTH Assessment/Plan Assessment/Plan Assessment/Plan Dry Gangrene - Toes of right foot Hx of Afib on Xarelto B/L infiltrates with hx of Pneumonia and COPD Plan is to stop Xarelto and go to surgery on Sunday for amputation of 1st and 2nd toe on right foot. I think that part of toes 3-5 may slough off, but it does not appear to be spreading. I told pt that it was not a guarantee that his pain and tingling would get better; these are nerve problems and removing the toes may not change that at all. He said "I still wanna roll the dice and try". Will get consent for amputation; discussed risks and complications not limited to pain, bleeding, infection and scar. All questions answered to his satisfaction. Clinical Quality Measures AMI/AHF: ASA po Prior to arrival: No DVT/VTE Risk/Contraindication: Risk Factor Score Per Nursin RFS Level Per Nursing on Admit: 4+=Very High CANDI MIJARES DO Feb 28, 2020 14:17
[2020-02-28] MEDS: RT-ALBUTEROL/IPRATROPIUM 3 ML (DUONEB) VIAL INH SCH ×3 (14:39→21:52)
[2020-02-28] MEDS ORDERED: RIVAROXABAN 20 MG TABLET (XARELTO) PO ONE (15:45)
[2020-02-28] MEDS: RIVAROXABAN 20 MG TABLET (XARELTO) PO SCH (15:57)
--- NOTE | 2020-02-28 21:17 | Consultation-Cardiology ---
HPI-Cardiology Cardiology Consultation: Date of Consultation 02/28/20 Date of Admission Attending Physician Kelly Oliveira MD Admitting Physician No,Local Physician Consulting Physician Steven DOMINGO MD HPI: Time Seen by a Provider: 15:30 Chief Complaint: Chest pain, shortness of breath This is a 59-year-old gentleman who was recently discharged from the hospital after a prolonged stay for respiratory failure, referral embolization causing acute limb ischemia, likely due to atrial fibrillation. He presents with complains of fever, shortness of breath. He also complains of chest discomfort. Central chest pain radiating to the right arm. Describes it as tightness and pressure. Associated with dizziness. No other associated cardiac complaints. Patient has previous history of traumatic brain injury. He denies active smoking. family history is unavailable. Review of Systems-Cardiology Review of Systems Constitutional: As described under HPI; No As described under HPI, No no symptoms reported, No chills, No fever, No lightheadedness Eyes: No As described under HPI, No no symptoms reported, No blindness, No blurred vision, No contact lenses, No drainage, No decreased acuity, No foreign body sensation, No pain, No vision change Ears/Nose/Throat: No As described under HPI, No no symptoms reported, No chronic hearing loss, No ear discharge, No ear pain, No nasal drainage, No ulcerations Respiratory: No no symptoms reported; As described under HPI; No As described under HPI, No cough, No orthopnea, No shortness of breath, No SOB with excertion Cardiovascular: No no symptoms reported; As described under HPI; No As described under HPI; chest pain; No edema, No irregular heart rate, No lightheadedness, No palpitations Gastrointestinal: No no symptoms reported, No As described under HPI, No abdomen distended, No abdominal pain, No blood streaked bowels, No constipation, No diarrhea, No nausea, No vomiting, No stool coloration changes Genitourinary: No As described under HPI, No burning, No dysuria, No discharge, No frequency, No flank pain, No hematuria, No urgency Skin: No rash, No skin related problems, No ulcerations Psychiatric/Neurological: No anxiety, No depression, No seizure, No focal weakness, No syncope Hematologic: No bleeding abnormalities All Other Systems Reviewed Negative Unless Noted: Yes KFO-Qkzgxs-Tktaed Hx Patient Social History Alcohol Use: Past History Recreational Drug Use: No Drug of Choice: "marijuana in the 80's and 90's" Smoking Status: Former Smoker Type Used: Cigarettes Recent Foreign Travel: No Recent Infectious Disease Expo: No Immunizations Up To Date Tetanus Booster (TDap): Unknown Past Medical History PMH As described under Assessment. Family Medical History Family History: Alcoholism 19 FATHER 19 MOTHER Arthritis 19 FATHER 19 MOTHER Allergies and Home Medications Allergies Coded Allergies: No Known Drug Allergies (Verified , 07/11/09) Home Medications Digoxin 250 Mcg Tablet, 0.25 MG PO DAILY Prescribed by: LOI CORTEZ on 02/15/201450 Diltiazem HCl 300 Mg Cap.er.24h, 300 MG PO DAILY Prescribed by: LOI CORTEZ on 02/15/201450 Ferrous Sulfate 325 Mg Tablet, 325 MG PO BID WITH MEALS Prescribed by: LOI CORTEZ on 02/15/201450 Fluticasone/Salmeterol 12 Gm Hfa.aer.ad, 0 PUFF IH RTBID Prescribed by: LOI CORTEZ on 02/15/201450 Folic Acid 1 Mg Tablet, 1 MG PO DAILY Prescribed by: LOI CORTEZ on 02/15/201450 Gabapentin 100 Mg Capsule, 200 MG PO TID Prescribed by: LOI CORTEZ on 02/15/201450 Guaifenesin 600 Mg Tab.er.12h, 600 MG PO BID Prescribed by: LOI CORTEZ on 02/15/201450 Ipratropium/Albuterol Sulfate 3 Ml Ampul.neb, 3 ML INH RTQ4HR Prescribed by: LOI CORTEZ on 02/15/201450 Lactulose 20 Gm/30 Ml Solution, 10 GM PO BID PRN for CONSTIPATION-2ND LINE Prescribed by: LOI CORTEZ on 02/15/201450 Multivitamin 1 Each Tablet, 1 EACH PO DAILY, (Reported) Oxycodone HCl 5 Mg Tablet, 5 MG PO Q4HR PRN for PAIN-SEVERE (8-10) Prescribed by: LOI CORTEZ on 02/15/201450 Pantoprazole Sodium 40 Mg Tablet.dr, 40 MG PO DAILY Prescribed by: LOI CORTEZ on 02/15/201450 Rivaroxaban 20 Mg Tablet, 20 MG PO DAILY@1700 Prescribed by: LOI CORTEZ on 02/15/20 1368 Patient Home Medication List Home Medication List Reviewed: Yes Physical Exam-Cardiology Physical Exam Vital Signs/I&O 03/01/20 03/01/20 03/01/20 03/01/20 06:57 07:00 08:00 09:00 Temp 37.2 Pulse 85 92 Resp 20 B/P (MAP) 101/62 (75) Pulse Ox 93 98 98 O2 Delivery Nasal Cannula Nasal Cannula Nasal Cannula O2 Flow Rate 3.00 3.00 3.00 03/01/20 03/01/20 03/01/20 03/01/20 11:08 12:00 13:58 13:58 Temp 37.1 37.0 Pulse 90 Resp 20 16 B/P (MAP) 101/64 (76) 97/62 (74) Pulse Ox 95 95 100 O2 Delivery Nasal Cannula Nasal Cannula OxyMask OxyMask O2 Flow Rate 3.00 3.00 3 3 03/01/20 03/01/20 03/01/20 03/01/20 14:00 14:00 14:10 14:15 Temp 36.4 Pulse 88 Resp 18 20 20 B/P (MAP) 101/70 (80) 93/63 (73) 93/63 (73) Pulse Ox 99 100 96 O2 Delivery Nasal Cannula OxyMask OxyMask Room Air O2 Flow Rate 3.00 3 3 03/01/20 03/01/20 03/01/20 03/01/20 14:20 14:30 14:30 15:07 Temp 37.0 Resp 20 20 B/P (MAP) 99/66 (77) 97/61 (73) Pulse Ox 93 93 90 O2 Delivery Room Air Nasal Cannula Room Air Nasal Cannula O2 Flow Rate 3 3 3.00 03/01/20 15:53 Temp 37.0 03/01/20 00:00 Intake Total 1200 ml Balance 1200 ml Capillary Refill : Less Than 3 Seconds Constitutional: appears stated age, AAO x 3; No apparent distress; well-devel oped, well-nourished HEENT: PERRL; No discharge; hearing is well preserved, oral hygience is good; No ulceration, No xanthelasmas are seen Neck: No carotid bruit; carotid pulses are 2 + bilaterally Respiratory: chest is bilaterally symmetric, other (poor air entry bilaterally.) Cardiovascular: regular rate-rhythm, S1 and S2; No diastolic murmur, No systolic murmur Gastrointestinal: soft, audible bowel sounds; No spleenomegaly Rectal: deferred Extremities: normal range of motion, non-tender, normal inspection; No clubbing, No cyanosis; no lower extremity edema bilateral; No significant edema Neurologic/Psychiatric: no motor/sensory deficits, alert, normal mood/affect, oriented x 3, power is 5/5 both on sides Skin: normal color, warm/dry; No rash, No ulcerations Lymphatic: no adenopathy (neck, axilla or groin) Data Review Labs Laboratory Tests 03/01/20 05:15: White Blood Count 9.4, Red Blood Count 3.06L, Hemoglobin 9.4L, Hematocrit 30L, Mean Corpuscular Volume 99, Mean Corpuscular Hemoglobin 31, Mean Corpuscular Hemoglobin Concent 31L, Red Cell Distribution Width 15.5H, Platelet Count 587H, Mean Platelet Volume 8.6, Neutrophils (%) (Auto) 65, Lymphocytes (%) (Auto) 24, Monocytes (%) (Auto) 9, Eosinophils (%) (Auto) 1, Basophils (%) (Auto) 0, Neutrophils # (Auto) 6.1, Lymphocytes # (Auto) 2.3, Monocytes # (Auto) 0.9, Eosinophils # (Auto) 0.1, Basophils # (Auto) 0.0 Microbiology 02/27/20 Urine Culture - Final, Complete NO GROWTH 02/27/20 Blood Culture - Preliminary, Resulted No growth ECG Impression ECG Initial ECG Rhythm: Normal Sinus Initial ECG Impression: Normal A/P-Cardiology Assessment/Admission Diagnosis Pneumonia, resolving Chest pain PVD, previous acute limb ischemia. Right foot gangrene Plan Pneumonia, . COVID-[address] Eugene managing. Chest pain, nonspecific etiology, cardiac catheterization carried out on January 30, 2020 showing mild to moderate coronary artery disease nonobstructive disease. Check serial troponin. EKG does not show any acute ST-T wave abnormalities. Anemia, managed by primary care team, H&H is monitored, EGD done on last admission with Dr. Wright reported gastritis and hiatal hernia. Managed by primary care team PVD, Status post acute limb ischemia due to embolization probably from atrial fibrillation. Angiogram was carried out showing total occlusion with thrombus in the distal SFA, received thrombolytics and reestablished flow. Maintained on Xarelto at this time. Continue to monitor Right foot dry gangrene to toes, PAF with RVR on 01/24/20, continue to monitor. Maintained on Xarelto Left upper lobe mass, Dr. Eugene following, planning for repeat CT as outpatient History of head trauma in or around 2017, was in coma for about a month. Has been on disability Tobaccoism, stopped smoking in December 2019, advised to continue to refrain Thank you for your consultation. Please call me if you have any questions. Winston Domingo MD, FACP, FACC, FSCAI, FHRS, CCDS Interventional Cardiology Cardiac Electrophysiology Vascular Medicine and Endovascular Interventions Clinical Quality Measures AMI/AHF: ASA po Prior to arrival: No DVT/VTE Risk/Contraindication: Risk Factor Score Per Nursin RFS Level Per Nursing on Admit: 4+=Very High Steven DOMINGO MD Feb 28, 2020 21:17
[2020-02-29] VITALS: BP 102/65
[2020-02-29] MEDS: RT-ALBUTEROL/IPRATROPIUM 3 ML (DUONEB) VIAL INH SCH ×6 (03:05→21:35)
[2020-02-29 04:00] VITALS: BP 108/62
[2020-02-29 05:25] LABS: BASOPHILS % (AUTO) 0 % (0-10); EOSINOPHILS # (AUTO) 0.1 10^3/uL (0.0-0.3); EOSINOPHILS % (AUTO) 1 % (0-10); HEMATOCRIT 30 % (40-54); HEMOGLOBIN 9.2 G/DL (13.3-17.7); LYMPHOCYTES # (AUTO) 1.8 X 10^3 (1.0-4.0); LYMPHOCYTES % (AUTO) 22 % (12-44); MEAN CORPUSCULAR HEMOGLOBIN 30 PG (25-34); MEAN CORPUSCULAR HGB CONC 31 G/DL (32-36); MEAN CORPUSCULAR VOLUME 98 FL (80-99); MEAN PLATELET VOLUME 8.6 FL (7.4-10.4); MONOCYTES # (AUTO) 0.8 X 10^3 (0.0-1.0); MONOCYTES % (AUTO) 10 % (0-12); NEUTROPHILS # (AUTO) 5.5 X 10^3 (1.8-7.8); NEUTROPHILS % (AUTO) 67 % (42-75); PLATELET COUNT 567 10^3/uL (130-400); RED CELL DISTRIBUTION WIDTH 15.3 % (10.0-14.5); WHITE BLOOD COUNT 8.2 10^3/uL (4.3-11.0)
[2020-02-29] MEDS: predniSONE 20 MG TAB PO SCH (05:44)
[2020-02-29] MEDS: morphine INJ 4 MG/ML 1 ML (VIAL/SYRINGE) IVP PRN ×6 (05:45→22:56)
[2020-02-29] MEDS: ADVAIR HFA 115/21 MCG INHALER 8 GM IH SCH ×2 (06:49→21:35)
[2020-02-29] MEDS: UMECLIDINIUM BROMIDE (INCRUSE ELLIPTA) 7'S IH SCH (06:49)
[2020-02-29 08:00] VITALS: BP 113/64
[2020-02-29] MEDS: GABAPENTIN 100 MG (NEURONTIN) CAP PO SCH (09:37)
[2020-02-29] MEDS: DIGOXIN 0.25 MG (LANOXIN) TAB PO SCH (09:37)
[2020-02-29] MEDS: SENNOSIDES 8.6 MG (SENOKOT) TAB PO SCH ×2 (09:39→19:54)
[2020-02-29] MEDS: DOCUSATE SODIUM 100 MG (COLACE) CAP PO SCH ×2 (09:39→19:54)
--- NOTE | 2020-02-29 11:13 | Progress Note - Hospitalist ---
Subjective HPI/CC On Admission Date Seen by Provider: Feb 29, 2020 Time Seen by Provider: 09:25 Moshe Soto is a 59-year-old male with past medical history of hypertension, atrial fibrillation on Xarelto, peripheral arterial disease, COPD, anemia, malnutrition, possible lung mass, recurrent pneumonias, who presented with malaise. He reports an overall unwell feeling. He reports having chest pain which is severe. He reports the pain radiates to his right arm. He is also feeling short of breath. He is also feeling anxious. He denies any nausea or vomiting. He reports pain in his bilateral feet. Several toes on his right foot are black but he is unsure of how long they have been this way. He also reports fevers, cough, and sore throat. Subjective/Events-last exam He reports continued left-sided chest pain. He also reports leg pain which is worse on the right. He is denies any fevers or chills. He denies any shortness of breath or cough. He denies any abdominal pain, nausea, or vomiting. He has no other complaints or concerns. Focused Exam Lactate Level 02/27/20 14:00: Lactic Acid Level 1.44 Objective Exam Vital Signs Vital Signs Date Time Temp Pulse Resp B/P (MAP) Pulse Ox O2 Delivery O2 Flow Rate FiO2 02/29/20 07:00 88 02/29/20 04:00 37.1 20 108/62 (77) 94 Nasal Cannula 3.00 Capillary Refill : Less Than 3 Seconds General Appearance: Anxious, Chronically ill Respiratory: Lungs Clear, Normal Breath Sounds, No Respiratory Distress, Other (Left-sided rib tenderness midaxillary line) Cardiovascular: Regular Rate, Rhythm, No Edema, No Murmur Gastrointestinal: Normal Bowel Sounds, Non Tender, Soft Extremity: No Pedal Edema, Other (Tenderness bilaterally) Neurologic/Psychiatric: Alert, Oriented x3, No Motor/Sensory Deficits Skin: Other (Right-sided toes black worst at great toe, dry skin) Results/Procedures Lab Laboratory Tests 02/29/20 04:54 Patient resulted labs reviewed. Imaging: Reviewed Imaging Report Assessment/Plan Assessment and Plan Assess & Plan/Chief Complaint Musculoskeletal chest pain Cardiology consulted, appreciate assistance Troponins remained normal CT negative for PE Continue pain regimen Possible pneumonia Atelectasis COPD with acute exacerbation Possible lung mass Chest x-ray with worsening right lower lobe pneumonia/atelectasis Afebrile, no leukocytosis Procalcitonin normal 2 Antibiotics discontinued COVID negative Continue steroids MAT protocol Pulmonology consulted, appreciate assistance Dry gangrene of the right foot Gen. surgery consulted, appreciate assistance Planning for amputation tomorrow 03/01 Nothing by mouth midnight Hold anticoagulation Pain regimen ordered HTN AFib Continue home meds Anemia Hemoglobin 9.2, stable, continue to monitor DVT prophylaxis: SCDs, pharmacologic prophylaxis held for surgery Diagnosis/Problems Diagnosis/Problems (1) Chest pain Status: Acute Qualifiers: Chest pain type: unspecified Qualified Codes: R07.9 - Chest pain, unspecified (2) Acute on chronic respiratory failure with hypoxia Status: Acute (3) Dry gangrene Status: Acute (4) HTN (hypertension) Status: Chronic (5) Paroxysmal atrial fibrillation Status: Chronic (6) Anticoagulated Status: Chronic Clinical Quality Measures AMI/AHF: ASA po Prior to arrival: No DVT/VTE Risk/Contraindication: Risk Factor Score Per Nursin RFS Level Per Nursing on Admit: 4+=Very High CLAU DUONG MD Feb 29, 2020 11:13
[2020-02-29] MEDS: GABAPENTIN 300 MG (NEURONTIN) CAP PO SCH ×2 (11:58→19:54)
[2020-02-29 12:14] VITALS: BP 106/57
--- NOTE | 2020-02-29 13:14 | Progress Note - Surgery ---
Subjective Time Seen by a Provider: 11:33 Subjective/Events-last exam Pt seen and examined, no new complaints and states no changes. Review of Systems General: Fatigue, Malaise Pulmonary: No Dyspnea, No Cough Cardiovascular: No: Chest Pain, Palpitations Gastrointestinal: No: Nausea, Vomiting, Abdominal Pain Focused Exam Lactate Level 02/27/20 14:00: Lactic Acid Level 1.44 Objective Exam Vital Signs Date Time Temp Pulse Resp B/P (MAP) Pulse Ox O2 Delivery O2 Flow Rate FiO2 02/29/20 12:14 36.8 101 19 106/57 (73) 96 Nasal Cannula 3.00 02/29/20 08:00 36.8 91 19 113/64 (80) 93 Nasal Cannula 3.00 02/29/20 07:00 88 02/29/20 04:00 37.1 86 20 108/62 (77) 94 Nasal Cannula 3.00 02/29/20 03:05 92 Nasal Cannula 3.50 02/29/20 01:00 91 02/29/20 00:00 37.2 98 18 102/65 (77) 95 Nasal Cannula 3.00 02/28/20 21:52 94 Nasal Cannula 3.50 02/28/20 21:05 Nasal Cannula 3.00 02/28/20 19:54 37.1 92 18 105/58 (74) 95 Nasal Cannula 3.00 02/28/20 19:03 93 Nasal Cannula 3.50 02/28/20 19:00 86 02/28/20 15:49 36.9 84 20 104/58 (73) 93 Nasal Cannula 3.00 02/28/20 14:39 96 Nasal Cannula 3.50 I & O 02/29/20 07:00 Intake Total 2450 ml Output Total 1725 ml Balance 725 ml Capillary Refill : Less Than 3 Seconds General Appearance: Anxious, Chronically ill HEENT: PERRL/EOMI, Pharynx Normal Respiratory: Lungs Clear, Normal Breath Sounds, No Respiratory Distress, Other (Left-sided rib tenderness midaxillary line) Cardiovascular: Regular Rate, Rhythm, No Edema, No Murmur Gastrointestinal: non tender, soft, no organomegaly Extremity: No Pedal Edema, Other (Gangrene (dry) 1st and second toe of right foot, pads of distal 3-5 have spots of necrosis; all are stable) Results Lab Laboratory Tests 02/29/20 04:54: White Blood Count 8.2, Red Blood Count 3.06L, Hemoglobin 9.2L, Hematocrit 30L, Mean Corpuscular Volume 98, Mean Corpuscular Hemoglobin 30, Mean Corpuscular Hemoglobin Concent 31L, Red Cell Distribution Width 15.3H, Platelet Count 567H, Mean Platelet Volume 8.6, Neutrophils (%) (Auto) 67, Lymphocytes (%) (Auto) 22, Monocytes (%) (Auto) 10, Eosinophils (%) (Auto) 1, Basophils (%) (Auto) 0, Neutrophils # (Auto) 5.5, Lymphocytes # (Auto) 1.8, Monocytes # (Auto) 0.8, Eosinophils # (Auto) 0.1, Basophils # (Auto) 0.0, B-Type Natriuretic Peptide 64.2 Microbiology 02/27/20 Urine Culture - Final, Complete NO GROWTH 02/27/20 Blood Culture - Preliminary, Resulted No growth Assessment/Plan Assessment/Plan Assessment/Plan Dry Gangrene - Toes of right foot Hx of Afib on Xarelto B/L infiltrates with hx of Pneumonia and COPD Xarelto has been held and will go to surgery on Sunday for amputation of 1st and 2nd toe on right foot. I think that part of toes 3-5 may slough off, but it does not appear to be spreading. I again stressed to pt that it was not a guarantee that his pain and tingling would get better; these are nerve problems and removing the toes may not change that at all. Consent for amputation - obtained; discussed risks and complications not limited to pain, bleeding, infection and scar. All questions answered to his satisfaction. Clinical Quality Measures AMI/AHF: ASA po Prior to arrival: No DVT/VTE Risk/Contraindication: Risk Factor Score Per Nursin RFS Level Per Nursing on Admit: 4+=Very High CANDI MIJARES DO Feb 29, 2020 13:13
--- NOTE | 2020-02-29 13:56 | Cardiology Progress Note ---
Cardiology SOAP Progress Note Subjective: No significant cardiac complaints. Objective: I&O/Vital Signs 03/01/20 03/01/20 03/01/20 03/01/20 06:57 07:00 08:00 09:00 Temp 37.2 Pulse 85 92 Resp 20 B/P (MAP) 101/62 (75) Pulse Ox 93 98 98 O2 Delivery Nasal Cannula Nasal Cannula Nasal Cannula O2 Flow Rate 3.00 3.00 3.00 03/01/20 03/01/20 03/01/20 03/01/20 11:08 12:00 13:58 13:58 Temp 37.1 37.0 Pulse 90 Resp 20 16 B/P (MAP) 101/64 (76) 97/62 (74) Pulse Ox 95 95 100 O2 Delivery Nasal Cannula Nasal Cannula OxyMask OxyMask O2 Flow Rate 3.00 3.00 3 3 03/01/20 03/01/20 03/01/20 03/01/20 14:00 14:00 14:10 14:15 Temp 36.4 Pulse 88 Resp 18 20 20 B/P (MAP) 101/70 (80) 93/63 (73) 93/63 (73) Pulse Ox 99 100 96 O2 Delivery Nasal Cannula OxyMask OxyMask Room Air O2 Flow Rate 3.00 3 3 03/01/20 03/01/20 03/01/20 03/01/20 14:20 14:30 14:30 15:07 Temp 37.0 Resp 20 20 B/P (MAP) 99/66 (77) 97/61 (73) Pulse Ox 93 93 90 O2 Delivery Room Air Nasal Cannula Room Air Nasal Cannula O2 Flow Rate 3 3 3.00 03/01/20 15:53 Temp 37.0 03/01/20 00:00 Intake Total 1200 ml Balance 1200 ml Constitutional: AAO x 3 Respiratory: chest is bilaterally symmetric, lungs clear to auscultation Cardiovascular: regular rate-rhythm, S1 and S2 Gastrointestional: soft, audible bowel sounds Extremities: normal range of motion, non-tender, normal inspection, no lower extremity edema bilateral Neurologic/Psychiatric: no motor/sensory deficits, alert, normal mood/affect, oriented x 3 Skin: normal color Results/Procedures: Labs Laboratory Tests 03/01/20 05:15: White Blood Count 9.4, Red Blood Count 3.06L, Hemoglobin 9.4L, Hematocrit 30L, Mean Corpuscular Volume 99, Mean Corpuscular Hemoglobin 31, Mean Corpuscular Hemoglobin Concent 31L, Red Cell Distribution Width 15.5H, Platelet Count 587H, Mean Platelet Volume 8.6, Neutrophils (%) (Auto) 65, Lymphocytes (%) (Auto) 24, Monocytes (%) (Auto) 9, Eosinophils (%) (Auto) 1, Basophils (%) (Auto) 0, Neutrophils # (Auto) 6.1, Lymphocytes # (Auto) 2.3, Monocytes # (Auto) 0.9, Eosinophils # (Auto) 0.1, Basophils # (Auto) 0.0 Microbiology 02/27/20 Urine Culture - Final, Complete NO GROWTH 02/27/20 Blood Culture - Preliminary, Resulted No growth A/P: Assessment/Dx: Pneumonia, resolving Chest pain PVD, previous acute limb ischemia. Right foot gangrene Plan: Pneumonia, . COVID-[address] Eugene managing. Chest pain, nonspecific etiology, cardiac catheterization carried out on January 30, 2020 showing mild to moderate coronary artery disease nonobstructive disease. Troponin negative. EKG does not show any acute ST-T wave abnormalities. Anemia, managed by primary care team, H&H is monitored, EGD done on last admission with Dr. Wright reported gastritis and hiatal hernia. Managed by primary care team PVD, Status post acute limb ischemia due to embolization probably from atrial fibrillation. Angiogram was carried out showing total occlusion with thrombus in the distal SFA, received thrombolytics and reestablished flow. Maintained on Xarelto at this time. Continue to monitor Right foot dry gangrene to toes, will likely require amputation. PAF with RVR on 01/24/20, continue to monitor. Maintained on Xarelto Left upper lobe mass, Dr. Eugene following, planning for repeat CT as outpatient History of head trauma in or around 2017, was in coma for about a month. Has been on disability Tobaccoism, stopped smoking in December 2019, advised to continue to refrain Dr. Watson to take over care tomorrow. Thank you for your consultation. Please call me if you have any questions. Winston Domingo MD, FACP, FACC, FSCAI, FHRS, CCDS Interventional Cardiology Cardiac Electrophysiology Vascular Medicine and Endovascular Interventions Focused Exam Lactate Level Clinical Quality Measures AMI/AHF: ASA po Prior to arrival: Steven Herrera MD Feb 29, 2020 13:56
[2020-02-29 16:29] VITALS: BP 101/55
[2020-02-29 19:37] VITALS: BP 113/62
[2020-03-01] VITALS (11 sets, daily range): BP systolic 93–111; BP diastolic 56–70
[2020-03-01] MEDS: RT-ALBUTEROL/IPRATROPIUM 3 ML (DUONEB) VIAL INH SCH ×6 (02:01→21:07)
[2020-03-01] MEDS: morphine INJ 4 MG/ML 1 ML (VIAL/SYRINGE) IVP PRN ×4 (05:02→20:27)
[2020-03-01] MEDS: predniSONE 20 MG TAB PO SCH (05:02)
[2020-03-01 05:32] LABS: BASOPHILS % (AUTO) 0 % (0-10); EOSINOPHILS # (AUTO) 0.1 10^3/uL (0.0-0.3); EOSINOPHILS % (AUTO) 1 % (0-10); HEMATOCRIT 30 % (40-54); HEMOGLOBIN 9.4 G/DL (13.3-17.7); LYMPHOCYTES # (AUTO) 2.3 X 10^3 (1.0-4.0); LYMPHOCYTES % (AUTO) 24 % (12-44); MEAN CORPUSCULAR HEMOGLOBIN 31 PG (25-34); MEAN CORPUSCULAR HGB CONC 31 G/DL (32-36); MEAN CORPUSCULAR VOLUME 99 FL (80-99); MEAN PLATELET VOLUME 8.6 FL (7.4-10.4); MONOCYTES # (AUTO) 0.9 X 10^3 (0.0-1.0); MONOCYTES % (AUTO) 9 % (0-12); NEUTROPHILS # (AUTO) 6.1 X 10^3 (1.8-7.8); NEUTROPHILS % (AUTO) 65 % (42-75); PLATELET COUNT 587 10^3/uL (130-400); RED CELL DISTRIBUTION WIDTH 15.5 % (10.0-14.5); WHITE BLOOD COUNT 9.4 10^3/uL (4.3-11.0)
[2020-03-01] MEDS: UMECLIDINIUM BROMIDE (INCRUSE ELLIPTA) 7'S IH SCH (06:58)
[2020-03-01] MEDS: ADVAIR HFA 115/21 MCG INHALER 8 GM IH SCH ×2 (06:58→18:32)
--- NOTE | 2020-03-01 07:10 | Pulmonary Progress Note ---
Subjective Time Seen by a Provider: 07:07 Subjective/Events-last exam No respiratory complications noted. Sepsis Event Evaluation Height, Weight, BMI Height: '" Weight: lbs. oz. kg; 19.00 BMI Method: Focused Exam Lactate Level 02/27/20 14:00: Lactic Acid Level 1.44 Exam Exam Vital Signs Date Time Temp Pulse Resp B/P (MAP) Pulse Ox O2 Delivery O2 Flow Rate FiO2 03/01/20 06:57 93 Nasal Cannula 3.00 03/01/20 04:00 37.2 87 20 102/59 (73) 95 Nasal Cannula 3.00 03/01/20 02:01 Nasal Cannula 3.00 03/01/20 01:00 93 03/01/20 00:34 37.6 91 16 106/56 (73) 93 Nasal Cannula 3.00 02/29/20 21:36 95 Nasal Cannula 3.00 02/29/20 21:00 Nasal Cannula 02/29/20 19:37 37.0 86 16 113/62 (79) 96 Nasal Cannula 3.00 02/29/20 19:00 91 02/29/20 16:29 37.4 101 18 101/55 (70) 96 Nasal Cannula 3.00 02/29/20 14:11 94 Nasal Cannula 3.00 02/29/20 13:00 102 02/29/20 12:14 36.8 101 19 106/57 (73) 96 Nasal Cannula 3.00 02/29/20 10:30 92 Nasal Cannula 3.50 02/29/20 09:00 Nasal Cannula 3.00 02/29/20 08:00 36.8 91 19 113/64 (80) 93 Nasal Cannula 3.00 I & O 03/01/20 07:00 Intake Total 1200 ml Output Total 1500 ml Balance -300 ml Height & Weight Height: '" Weight: lbs. oz. kg; 19.00 BMI Method: General Appearance: Anxious, Chronically ill HEENT: PERRL/EOMI, Pharynx Normal Respiratory: Lungs Clear, Normal Breath Sounds, No Respiratory Distress, Other (Left-sided rib tenderness midaxillary line) Cardiovascular: Regular Rate, Rhythm, No Edema, No Murmur Capillary Refill: Less Than 3 Seconds Gastrointestinal: non tender, soft, no organomegaly Extremity: No Pedal Edema, Other (Gangrene (dry) 1st and second toe of right foot, pads of distal 3-5 have spots of necrosis; all are stable) Results Lab Laboratory Tests 02/29/20 04:54 03/01/20 05:15 Assessment/Plan Assessment/Plan Dry Gangrene - Toes of right foot -Plan for surgery today RLL resolving PNA -Will need repeat CT of chest in 8wks after discharge s/p Acute occlusion of artery of right lower extremity s/p abdominal aorta gram with TPA via cath - Last hospitalization Tobacco use with probable severe COPD -Out pt testing -Start Albuterol, Spiriva, and Advair JENI DENISE DO Mar 01, 2020 07:10
[2020-03-01] MEDS ORDERED: LACTATED RINGERS 1,000 ML IV PRN (08:18)
[2020-03-01] MEDS: SENNOSIDES 8.6 MG (SENOKOT) TAB PO SCH ×2 (09:00→20:28)
[2020-03-01] MEDS: DIGOXIN 0.25 MG (LANOXIN) TAB PO SCH (09:00)
[2020-03-01] MEDS: DOCUSATE SODIUM 100 MG (COLACE) CAP PO SCH ×2 (09:00→20:28)
--- NOTE | 2020-03-01 09:00 | NUR ---
Morning meds held due to NPO status
--- NOTE | 2020-03-01 09:21 | Cardiology Progress Note ---
Subjective Date Seen by Provider: Mar 01, 2020 Time Seen by Provider: 08:50 Subjective/Events-last exam Patient sitting up in bed, denies any further episode of chest pain or dyspnea. c/p right foot pain this morning. Review of Systems General: No Chills, No Night Sweats, No Fatigue, No Malaise, No Appetite, No Other HEENT: No Head Aches, No Visual Changes, No Eye Pain, No Ear Pain, No Dysphasia, No Sinus Congestion, No Post Nasal Drip, No Sore Throat, No Other Pulmonary: No Dyspnea, No Cough, No Pleuritic Chest Pain, No Other Cardiovascular: No: Chest Pain, Palpitations, Orthopnea, Paroxysmal Noc. Dyspnea, Edema, Lt Headedness, Other Focused Exam Lactate Level 02/27/20 14:00: Lactic Acid Level 1.44 Objective-Cardiology Exam Last Set of Vital Signs Vital Signs 03/01/20 12:00 Temp 37.1 Pulse 90 Resp 20 B/P (MAP) 101/64 (76) Pulse Ox 95 O2 Delivery Nasal Cannula O2 Flow Rate 3.00 Capillary Refill : Less Than 3 Seconds I&O Intake and Output 03/01/20 00:00 Intake Total 1400 ml Output Total 600 ml Balance 800 ml Intake Oral 1400 ml Output Urine Total 600 ml # Voids 7 General: Alert, Oriented X3, Cooperative HEENT: Atraumatic, PERRLA Neck: Supple, No JVD, No Thyromegaly Lungs: Clear to Auscultation, Normal Air Movement Heart: Regular Rate, Normal S1, Normal S2, No Murmurs Abdomen: Normal Bowel Sounds, Soft, No Tenderness, No Hepatosplenomegaly, No Masses Extremities: No Clubbing, No Edema Skin: No Rashes, Other (right toes with dry gangrene) Neuro: Normal Speech, Cranial Nerves 3-12 NL Psych/Mental Status: Mental Status NL, Mood NL Results Lab Laboratory Tests 03/01/20 05:15 A/P-Cardiology Admission Diagnosis Pneumonia, resolving Chest pain PVD Right foot gangrene Assessment/Plan Pneumonia, improving. COVID-[address] Eugene managing. Chest pain, nonspecific etiology, cardiac catheterization carried out on January 30, 2020 showing mild to moderate coronary artery disease nonobstructive disease. Chest pain is unlikely to be cardiac, patient reports improvement of symptoms today. Anemia, managed by primary care team, H&H is monitored, EGD done on last admission with Dr. Wright reported gastritis and hiatal hernia. Managed by primary care team PVD, Status post acute limb ischemia due to embolization probably from atrial fibrillation. Angiogram was carried out showing total occlusion with thrombus in the distal SFA, received thrombolytics and reestablished flow. Maintained on Xarelto at this time. Continue to monitor Right foot dry gangrene to toes, planning for 1st and 2nd toe amputation with Dr. Wright today. PAF with RVR on 01/24/20, continue to monitor. Maintained on Xarelto Left upper lobe mass, Dr. Eugene following, planning for repeat CT as outpatient History of head trauma in or around 2017, was in coma for about a month. Has been on disability Tobaccoism, stopped smoking in December 2019, advised to continue to refrain Patient was seen and evaluated with Stacie, examination performed, management plan was discussed, agree with the current scribed note, I made few changes to the note using Italic font Patient is feeling better. No new complaint, had a cardiac catheterization in January 2020 showing aqjh-[id number] disease nonobstructive coronary artery disease Receiving antibiotic for pneumonia, managed by Dr. Eugene Peripheral arterial disease is clinically stable. Continue to monitor Restarted Xarelto at this time. Continue to monitor Clinical Quality Measures AMI/AHF: ASA po Prior to arrival: No DVT/VTE Risk/Contraindication: Risk Factor Score Per Nursin RFS Level Per Nursing on Admit: 4+=Very High STACIE PATEL Mar 01, 2020 9:21 am THERESA BELLAMY MD Mar 01, 2020 1:48 pm
--- NOTE | 2020-03-01 09:33 | NUR ---
SPOKE WITH THE PT (HE ALSO HAD ME CALL HIS BROTHER GATO) AND CALLED [facility] BOND AND MR. MAYNARD OFFICE TO COMPLETE THE MED REC XARELTO 20MG WAS GIVEN A SAMPLES FROM DR. MAYNARD OFFICE ON 02-21-2020 #14 THE FOLLOWING MEDICATIONS WERE FILLED ON 02-21-2020: GABAPENTIN 100MG #180/30DS PROTONIX 40MG #30/30DS DIGOXIN 250MCG #30/30DS DILTIAZEM 300MG #3030DS FOLIC ACID 1MG #30/30DS FERROUS SULFATE 325MG #60/30DS MTV #30/30DS ADVAIR 115/21 #1 OXYCODONE 5MG #42 WHEN PT WAS HERE EARLIER THIS MONTH AND AT DISCHARGE THEY SENT A SCRIPT FOR SENNA-S HOWEVER THE PT SAYS HE IS NO LONGER TAKING Addendum: 03/01/20 at 0938 by PRISCILLA DELGADO CPhT ON PATIENT PREVIOUS VISIT IT SEEMS XANAX WAS ISSUED UPON DISCHARGE -[facility] HAS NEVER FILLED IT AND HAS NO RECORD ON FILE
--- NOTE | 2020-03-01 09:36 | Physical Therapy Progress Note ---
Therapy Progress Note Patient to have surgery for toe amputations right foot. PT will resume in [facility] Jose PT Mar 01, 2020 09:36
--- NOTE | 2020-03-01 09:56 | Occupational Therapy Eval ---
OT Evaluation-General/PLF Medical Diagnosis Admission Date Feb 27, 2020 at 15:39 Medical Diagnosis: pneumonia/CP Onset Date: Feb 27, 2020 Therapy Diagnosis Therapy Diagnosis: impaired ADLs/functional mobility Precautions Precautions/Isolations: Fall Prevention, Standard Precautions Referral Physician: Roxanne Gonzalez Reason: Evaluation/Treatment Medical History Pertinent Medical History: Atrial Fib, Alcoholism, Renal Insufficiency, Smoking, TBI Additional Medical History Peripheral artery disease, anemia, malnutrition, pneumonias, alcoholism, COPD Current History Pt arrived via EMS from home secondary to SOA, CP & dizziness. Surgery scheduled this date (03/01/2020) for amputation R 1st and 2nd toes. Social History Home: Single Level Current Living Status: Other Family (Brother) Entry Into Home: Stairs With Railing Steps Into Home: 2 ADL-Prior Level of Function SCALE: Activities may be completed with or without assistive devices. 0-Htamldrdhd-sefeipr completes the activity by him/herself with no assistance from a helper. 5-Set-up or Clean-up Assistance-helper sets up or cleans up; patient completes activity. [place] assists only prior to or following the activity. 4-Supervision or Touching Assistance-helper provides verbal cues and/or touching/steadying and/or contact guard assistance as patient completes activity. Assistance may be provided throughout the activity or intermittently. 3-Partial/Moderate Assistance-helper does LESS THAN HALF the effort. [place] lif ts, holds or supports trunk or limbs, but provides less than half the effort. 2-Substantial/Maximal Assistance-helper does MORE THAN HALF the effort. [place] lifts or holds trunk or limbs and provides more than half the effort. 2-Qjtjduwqi-zwbnpn does ALL the effort. Patient does none of the effort to complete the activity. Or, the assistance of 2 or more helpers is required for the patient to complete the activity. If activity was not attempted, code reason: 7-Patient Refused. 9-Not Applicable-not attempted and the patient did not perform the activity before the current illness, exacerbation or injury. 10-Not Attempted due to Environmental Limitations-(lack of equipment, weather restraints, etc.). 88-Not Attempted due to Medical Conditions or Safety Concerns. ADL PLOF Comments Pt reports he is currently living with his brother in a single level house. Pt states he was able to complete bathing and dressing by himself. He has a tub/shower with a chair. His brother assists with cooking and cleaning. He states he is independent with functional mobility using FWW Self Care: Needed Some Help Functional Cognition: Independent DME/Equipment: Bath Chair, Tub/Shower DME/Equipment Comments walker OT Current Status Subjective Pt laying in bed stating he is having surgery on this date to remove his R 1st and 2nd toe. Pt agrees to OT evaluation Mental Status/Objective Patient Orientation: Person, Place, Time, Situation Current Glasses/Contacts: Yes (reading) Hearing Aids: No Dentures/Partials: No Hand Dominance: Left Upper Extremity ROM WFL, BUE shoulder flexion to approx 160 degrees, he is able to touch the back of his head with his hands Upper Extremity Coordination WFL Upper Extremity Sensation Pt reports tingling/numbness in his entire R arm "at times" Upper Extremity Strength grossly 3/5 MMT BUEs Other Treatments Pt laying in bed, agreeable to OT evaluation. OT educated pt on purpose and bene fits of OT, he verbalized understanding. Pt then provided information about PLOF/home set up and participated in UE screen. Pt reports he has already showered this morning, declining further ADLs at this time. Post OT eval, pt laying in bed, call light in reach and all needs met. Education OT Patient Education: Correct positioning, Energy conservation, Progress toward Goal/Update tx plan, Purpose of tx/functional activities, Rehab process Teaching Recipient: Patient Teaching Methods: Discussion Response to Teaching: Verbalize Understanding OT [facility] Goals [employer] Worker Goals Time Frame: Mar 18, 2010 Eating (QC): 6 Oral Hygiene (QC): 6 Toileting Hygiene (QC): 6 Shower/Bathe Self (QC): 6 Upper Body Dressing (QC): 6 Lower Body Dressing (QC): 6 On/Off Footwear (QC): 6 1=Demonstrate adherence to instructed precautions during ADL tasks. 2=Patient will verbalize/demonstrate understanding of assistive devices/modifications for ADL. 3=Patient will improve strength/tolerance for activity to enable patient to perform ADL's. OT Education/Plan Problem List/Assessment Assessment: Decreased Activ Tolerance, Decreased UE Strength, Impaired I ADL's, Impaired Self-Care Skills Discharge Recommendations Plan/Recommendations: Continue POC Treatment Plan/Plan of Care Treatment,Training & Education: Yes Patient would benefit from OT for education, treatment and training to promote independence in ADL's, mobility, safety and/or upper extremity function for ADL's. Plan of Care: ADL Retraining, Functional Mobility, UE Funct Exercise/Act Treatment Duration: Mar 19, 2020 Frequency: 5 times per week Estimated Hrs Per Day: .25 hour per day Rehab Potential: Guarded Time/GCodes Start Time: 09:40 Stop Time: 09:50 Total Time Billed (hr/min): 10 Billed Treatment Time 1, ASH CASTORENA OT Mar 01, 2020 09:56
--- NOTE | 2020-03-01 10:56 | Progress Note - Hospitalist ---
Subjective HPI/CC On Admission Date Seen by Provider: Mar 01, 2020 Time Seen by Provider: 10:54 Moshe Soto is a 59-year-old male with past medical history of hypertension, atrial fibrillation on Xarelto, peripheral arterial disease, COPD, anemia, malnutrition, possible lung mass, recurrent pneumonias, who presented with malaise. He reports an overall unwell feeling. He reports having chest pain which is severe. He reports the pain radiates to his right arm. He is also feeling short of breath. He is also feeling anxious. He denies any nausea or vomiting. He reports pain in his bilateral feet. Several toes on his right foot are black but he is unsure of how long they have been this way. He also reports fevers, cough, and sore throat. Subjective/Events-last exam Pt reports doing well. Still having foot pain. Plan to go to OR today. Focused Exam Lactate Level 02/27/20 14:00: Lactic Acid Level 1.44 Objective Exam Vital Signs Vital Signs Date Time Temp Pulse Resp B/P (MAP) Pulse Ox O2 Delivery O2 Flow Rate FiO2 03/01/20 09:00 98 Nasal Cannula 3.00 03/01/20 08:00 37.2 92 20 101/62 (75) Capillary Refill : Less Than 3 Seconds General Appearance: No Apparent Distress, Chronically ill Respiratory: Lungs Clear, No Respiratory Distress Cardiovascular: Regular Rate, Rhythm, No Murmur Gastrointestinal: Normal Bowel Sounds, Non Tender, Soft Neurologic/Psychiatric: Alert, Oriented x3 Results/Procedures Lab Laboratory Tests 03/01/20 05:15 Patient resulted labs reviewed. Imaging: Reviewed Imaging Report Assessment/Plan Assessment and Plan Assess & Plan/Chief Complaint Musculoskeletal chest pain Cardiology consulted, appreciate assistance Troponins remained normal CT negative for PE Continue pain regimen Possible pneumonia Atelectasis COPD with acute exacerbation Possible lung mass Chest x-ray with worsening right lower lobe pneumonia/atelectasis Afebrile, no leukocytosis Procalcitonin normal 2 COVID negative Continue steroids MAT protocol Pulmonology consulted, appreciate assistance - Discussed option for bronchoscopy with Dr Eugene, will plan on outpatient follow up CT in 8 weeks instead Dry gangrene of the right foot Gen. surgery consulted, appreciate assistance Planning for amputation today Hold anticoagulation Pain regimen ordered HTN AFib Continue home meds Anemia Hemoglobin 9.2, stable, continue to monitor DVT prophylaxis: SCDs, pharmacologic prophylaxis held for surgery Clinical Quality Measures AMI/AHF: ASA po Prior to arrival: No DVT/VTE Risk/Contraindication: Risk Factor Score Per Nursin RFS Level Per Nursing on Admit: 4+=Very High BLANE JAIN MD Mar 01, 2020 10:56
[2020-03-01] MEDS ORDERED: proPOfol 200 MG/20 ML (DIPRIVAN) VIAL IV ONE (11:09)
[2020-03-01] MEDS ORDERED: LIDOCAINE PF 2% 5 ML (XYLOCAINE) VIAL ONE (11:09)
[2020-03-01] MEDS ORDERED: MIDAZOLAM 2 MG/2 ML (VERSED) VIAL ONE (11:10)
[2020-03-01] MEDS ORDERED: fentaNYL INJECTION 100 MCG/2 ML AMP ONE (11:10)
[2020-03-01] MEDS: GABAPENTIN 300 MG (NEURONTIN) CAP PO SCH ×3 (13:00→20:27)
[2020-03-01] MEDS ORDERED: BUP/EPI 0.5% 1:200,000 (SENSORCAINE) 30 ML VIAL ONE (13:03)
[2020-03-01] MEDS ORDERED: KETAMINE/NaCl 50 MG/5 ML SYRINGE (ED ONLY) ONE (13:19)
[2020-03-01] MEDS ORDERED: ceFAZolin INJECTION 1,000 MG ONE (13:25)
[2020-03-01] MEDS ORDERED: PHENYLEPHRINE INJ 10 MG/ML (FOR DRIP KITS ONLY) ONE (13:40)
[2020-03-01] MEDS ORDERED: PHENYLEPHRINE 100 MCG/ML 10 ML (ANESTHESIA) SYR ONE (13:40)
[2020-03-01] MEDS ORDERED: ONDANSETRON 4 MG/2 ML (SDV) Z0FRAN IVP PRN (14:00)
[2020-03-01] MEDS ORDERED: HYDROmorphone 2 MG/ML VIAL (DILAUDID) IV ONE (14:00)
--- NOTE | 2020-03-01 14:07 | Progress Note-Post Operative ---
Post-Operative Progess Note Surgeon (s)/Retail Project Merchandiser (s) Surgeon CANDI MIJARES DO Retail Project Merchandiser: Judit Pre-Operative Diagnosis Dry Gangrene, 1st and 2nd toe Right foot Post-Operative Diagnosis Same Procedure & Operative Findings Date of Procedure 03/01/20 Procedure Performed/Findings Amputation of 1st and 2nd right toe Anesthesia Type MAC Estimated Blood Loss Estimated blood loss (mL): scant Specimens/Packing Specimens Removed 1st and 2nd toe CANDI MIJARES DO Mar 01, 2020 14:07
--- NOTE | 2020-03-01 14:17 | NUR ---
"RD ASSESSMENT PMHx: HTN; afib; PAD; COPD; anemia; malnutrition; DVT; PT INTERACTION: Pt was awake and pleasant during nutrition assessment. Pt states current appetite is good. Note avg PO intake 71% x2d, per chart review. Pt states following a regular diet at home, and has no issues with chewing/swallowing food. Pt states no recent issues with nausea, vomiting, constipation, or diarrhea. Note last BM was 02/27, and pt currently on bowel regimen of colace BID; and senna BID, per chart review. Pt states some recent wt loss. Note recent 9# wt loss x1mon, per chart review. This is significant wt loss at 6.2% x1mon. Note pt met criteria for malnutrition during previous hospital stay. Upon visual assessment, pt appears to be thin, with visible signs of muscle/fat wasting. Note pt has BMI of 19.6 which is a normal BMI, given pt's age. Given visual assessment and wt hx, pt meets criteria for malnutrition per ASPEN guidelines. ABNORMAL NUTRITION-RELATED LAB VALUES LOW: alb 2.8 HIGH: Est. kcal needs: 6046-7404 kcal | 30-35 kcal/kg Est. Pro needs: 60-72 g Pro | 1.0-1.2 g Pro/kg PES STATEMENT: Inadequate oral intake (NI-2.1) related to loss of appetite as evidenced by pt interview | avg PO intake 71% x2d INTERVENTION: Note pt currently NPO for procedure. Would recommend advancing diet as medically and as tolerated after procedure. Would recommend continuing order for nutrition supplementation of Ensure Enlive (vary) with meals TID, for increased kcal intake. Provides 350 kcal and 13 g Pro per serving. Will continue to follow and reassess as pt needs, intake, and status change. MONITOR/EVALUATE: PO Intake; Plan of Care; Hydration Status; Weight Status; Lab Values Doug Nunez, MS, RD, LD"
--- NOTE | 2020-03-01 15:59 | NUR ---
Pastoral care visit.
--- NOTE | 2020-03-01 23:44 | OPERATIVE REPORT ---
DATE OF SERVICE: PREOPERATIVE DIAGNOSIS: Dry gangrene of right first and second toe. POSTOPERATIVE DIAGNOSIS: Dry gangrene of right first and second toe, pending pathology. PROCEDURE: Amputation of first and second toe on the right foot; at the Metatarsal- Phalangeal joint SURGEON: Harman Wright DO FARM MANAGEMENT AGENT: Adam Spain DO ANESTHESIA: Local MAC. SPECIMEN: Right first and second toe. BLOOD LOSS: Scant. FLUIDS: Per anesthesia. POSTOPERATIVE CONDITION: Stable. INDICATION FOR PROCEDURE: The patient is a 59-year-old male who had a thrombotic event and lost blood supply and had gangrene of the first and second toe, pads of the 3, 4 and 5 actually have little bit of gangrene as well. No necrosis, but the first and second toe are the worst, leaving the other toes alone. FINDINGS: The patient's first and second toe removed and sent to pathology. PROCEDURE NOTE: After informed consent was obtained, the patient was brought to the operating room, placed on the table in supine position. He was sterilely prepped and draped in normal fashion and then did a distal foot block as well as a block at the medial malleolus and then did a digital block for the first and second digit. At this point, then used Bovie electrocautery to cut the skin of the first and second toe, cut around down through the subcutaneous tissue, then deepened down to subcutaneous tissue with Bovie electrocautery starting to take the tissue ligaments around the toe, able to get at the base of the toe and disarticulated first toe, take this off and then dissect down around cutting of the ligaments and tissue around the second toe and disarticulated it at the base of phalanges (meeting the metatarsals). Copiously irrigated with normal saline. Hemostasis obtained using Bovie electrocautery. I then elected to close this with 0 Prolene, 3 vertical mattress sutures and then closed with 5 simple interrupted 2-0 Prolene suture. Area was cleaned and dried, dressing was placed. The patient tolerated the procedure. Sponge, instrument and needle count correct at the end of the case. Dr. Spain assisted in this case helping to identify anatomy, hold anatomy out of the way and closed the incisions. Job ID: [id number] DocumentID: [id number] Dictated Date: 03/01/2020 14:11:36 Hardware Trainer Date: 03/01/2020 23:43:36 Dictated By: DO URIAH JOLLY
[2020-03-02] VITALS: BP 111/71
[2020-03-02] MEDS: RT-ALBUTEROL/IPRATROPIUM 3 ML (DUONEB) VIAL INH SCH ×6 (02:14→22:12)
[2020-03-02] MEDS: morphine INJ 4 MG/ML 1 ML (VIAL/SYRINGE) IVP PRN ×4 (03:28→19:50)
[2020-03-02 04:00] VITALS: BP 114/77
[2020-03-02] MEDS: predniSONE 20 MG TAB PO SCH (05:52)
[2020-03-02 05:55] LABS: BASOPHILS % (AUTO) 0 % (0-10); EOSINOPHILS # (AUTO) 0.3 10^3/uL (0.0-0.3); EOSINOPHILS % (AUTO) 3 % (0-10); HEMATOCRIT 35 % (40-54); HEMOGLOBIN 10.5 G/DL (13.3-17.7); LYMPHOCYTES # (AUTO) 2.1 X 10^3 (1.0-4.0); LYMPHOCYTES % (AUTO) 18 % (12-44); MEAN CORPUSCULAR HEMOGLOBIN 30 PG (25-34); MEAN CORPUSCULAR HGB CONC 30 G/DL (32-36); MEAN CORPUSCULAR VOLUME 98 FL (80-99); MEAN PLATELET VOLUME 8.6 FL (7.4-10.4); MONOCYTES # (AUTO) 1.4 X 10^3 (0.0-1.0); MONOCYTES % (AUTO) 12 % (0-12); NEUTROPHILS % (AUTO) 67 % (42-75); PLATELET COUNT 660 10^3/uL (130-400); RED CELL DISTRIBUTION WIDTH 15.8 % (10.0-14.5)
--- NOTE | 2020-03-02 07:09 | Anesthesia-General Post-Op ---
MAC Patient Condition Mental Status/LOC: Same as Preop Cardiovascular: Satisfactory Nausea/Vomiting: Absent Respiratory: Satisfactory Pain: Controlled Complications: Absent Post Op Complications Complications None Follow Up Care/Instructions Patient Instructions None needed. Anesthesiology Discharge Order Discharge Order Patient is doing well, no complaints, stable vital signs, no apparent adverse anesthesia problems. No complications reported per nursing. KENNEDY POP CRNA Mar 02, 2020 07:09
--- NOTE | 2020-03-02 07:11 | Pulmonary Progress Note ---
Subjective Time Seen by a Provider: 07:09 Subjective/Events-last exam No complications noted. Sepsis Event Evaluation Height, Weight, BMI Height: '" Weight: lbs. oz. kg; 19.00 BMI Method: Exam Exam Vital Signs Date Time Temp Pulse Resp B/P (MAP) Pulse Ox O2 Delivery O2 Flow Rate FiO2 03/02/20 04:00 37.2 93 20 114/77 (89) 95 Nasal Cannula 3.00 03/02/20 02:14 87 Nasal Cannula 3.00 03/02/20 00:00 37.4 97 20 111/71 (84) 98 Nasal Cannula 3.00 03/01/20 21:15 92 Nasal Cannula 3.00 03/01/20 20:35 Nasal Cannula 3.00 03/01/20 20:30 37.4 99 18 111/59 (76) 96 Nasal Cannula 3.00 03/01/20 19:01 99 03/01/20 18:32 92 Nasal Cannula 3.00 03/01/20 16:00 36.8 93 20 107/56 (73) 96 Nasal Cannula 3.00 03/01/20 15:53 37.0 03/01/20 15:07 90 Nasal Cannula 3.00 03/01/20 14:30 37.0 20 97/61 (73) 93 Room Air 3 03/01/20 14:30 Nasal Cannula 3 03/01/20 14:20 20 99/66 (77) 93 Room Air 03/01/20 14:15 Room Air 03/01/20 14:10 20 93/63 (73) 96 OxyMask 3 03/01/20 14:00 20 93/63 (73) 100 OxyMask 3 03/01/20 14:00 36.4 88 18 101/70 (80) 99 Nasal Cannula 3.00 03/01/20 13:58 37.0 16 97/62 (74) 100 OxyMask 3 03/01/20 13:58 OxyMask 3 03/01/20 12:00 37.1 90 20 101/64 (76) 95 Nasal Cannula 3.00 03/01/20 11:08 95 Nasal Cannula 3.00 03/01/20 09:00 98 Nasal Cannula 3.00 03/01/20 08:00 37.2 92 20 101/62 (75) 98 Nasal Cannula 3.00 I & O 03/02/20 07:00 Intake Total 2700 ml Output Total 2205 ml Balance 495 ml Height & Weight Height: '" Weight: lbs. oz. kg; 19.00 BMI Method: General Appearance: No Apparent Distress, Chronically ill HEENT: PERRL/EOMI, Pharynx Normal Respiratory: Lungs Clear, No Respiratory Distress Cardiovascular: Regular Rate, Rhythm, No Murmur Capillary Refill: Less Than 3 Seconds Gastrointestinal: non tender, soft, no organomegaly Extremity: No Pedal Edema, Other (Gangrene (dry) 1st and second toe of right fo ot, pads of distal 3-5 have spots of necrosis; all are stable) Neurologic/Psychiatric: Alert, Oriented x3 Results Lab Laboratory Tests 03/01/20 05:15 03/02/20 05:45 Assessment/Plan Assessment/Plan Dry Gangrene - Toes of right foot -S/p surgery RLL resolving PNA -Will need repeat CT of chest in 8wks after discharge s/p Acute occlusion of artery of right lower extremity s/p abdominal aorta gram with TPA via cath - Last hospitalization Tobacco use with probable severe COPD -Out pt testing -Start Albuterol, Spiriva, and Advair JENI DENISE DO Mar 02, 2020 07:11
[2020-03-02] MEDS: UMECLIDINIUM BROMIDE (INCRUSE ELLIPTA) 7'S IH SCH (07:14)
[2020-03-02] MEDS: ADVAIR HFA 115/21 MCG INHALER 8 GM IH SCH ×2 (07:14→18:06)
[2020-03-02 08:00] VITALS: BP 114/74
--- NOTE | 2020-03-02 08:18 | Physical Therapy Progress Note ---
Therapy Progress Note Patient refuses therapy this morning. He says he is in too much pain (nurse has been notified of pain). Patient states he doesn't want to sit at the side of the bed and refused to just perform LE exercises in bed. Patient educated on the benefits of PT but he continues to refuse. Will check back this afternoon. MARKO REID PT Mar 02, 2020 08:18
[2020-03-02] MEDS: GABAPENTIN 300 MG (NEURONTIN) CAP PO SCH ×3 (09:05→19:50)
[2020-03-02] MEDS: DIGOXIN 0.25 MG (LANOXIN) TAB PO SCH (09:05)
[2020-03-02] MEDS: SENNOSIDES 8.6 MG (SENOKOT) TAB PO SCH ×2 (09:06→19:50)
[2020-03-02] MEDS: DOCUSATE SODIUM 100 MG (COLACE) CAP PO SCH ×2 (09:06→19:50)
--- NOTE | 2020-03-02 10:27 | Occ Therapy Progress Note ---
Therapy Progress Note Pt laying in bed, declined OT services stating "I'm hurting bad" & "you aren't getting anything out of me today". Pt reports pain "12/10" in his right foot. OT educated pt on benefits/purpose of OT but pt still refused. OT will attempt again next available time. 1, refusal 1005 ASH ANTONY OT Mar 02, 2020 10:27
--- NOTE | 2020-03-02 10:49 | Progress Note - Hospitalist ---
Subjective HPI/CC On Admission Date Seen by Provider: Mar 02, 2020 Time Seen by Provider: 10:47 Moshe Soto is a 59-year-old male with past medical history of hypertension, atrial fibrillation on Xarelto, peripheral arterial disease, COPD, anemia, malnutrition, possible lung mass, recurrent pneumonias, who presented with malaise. He reports an overall unwell feeling. He reports having chest pain which is severe. He reports the pain radiates to his right arm. He is also feeling short of breath. He is also feeling anxious. He denies any nausea or vomiting. He reports pain in his bilateral feet. Several toes on his right foot are black but he is unsure of how long they have been this way. He also reports fevers, cough, and sore throat. Subjective/Events-last exam Pt reports having pain in his foot. Pain medication helps when he gets it. He is currently due for pain medicine. Objective Exam Vital Signs Vital Signs Date Time Temp Pulse Resp B/P (MAP) Pulse Ox O2 Delivery O2 Flow Rate FiO2 03/02/20 10:19 92 Nasal Cannula 3.50 03/02/20 08:00 37.2 107 20 114/74 (87) Capillary Refill : Greater Than 3 SecondsLess Than 3 Seconds General Appearance: No Apparent Distress, Chronically ill Respiratory: Lungs Clear, No Respiratory Distress Cardiovascular: Regular Rate, Rhythm, No Murmur Extremity: Other (s/p amputation of 2 toes on right foot, wrapped in surgical dressing) Neurologic/Psychiatric: Alert, Oriented x3 Results/Procedures Lab Laboratory Tests 03/02/20 05:45 Patient resulted labs reviewed. Imaging: Reviewed Imaging Report Assessment/Plan Assessment and Plan Assess & Plan/Chief Complaint Musculoskeletal chest pain Cardiology consulted, appreciate assistance Troponins remained normal CT negative for PE Continue pain regimen - Cardiac cath during last visit in January was clean Atelectasis COPD with acute exacerbation Possible lung mass Chest x-ray with worsening right lower lobe pneumonia/atelectasis Afebrile, no leukocytosis Procalcitonin normal 2 COVID negative Continue steroids MAT protocol Pulmonology consulted, appreciate assistance - Discussed option for bronchoscopy on 03/[address] Eugene, will plan on outpatient follow up CT in 8 weeks instead Dry gangrene of the right foot Gen. surgery consulted, appreciate assistance s/p amputation Hold anticoagulation, resume when ok with surgery Pain regimen ordered - Will likely need to return to SNF upon discharge HTN AFib Continue home meds Anemia Hemoglobin 9.2, stable, continue to monitor DVT prophylaxis: SCDs, pharmacologic prophylaxis held for surgery Clinical Quality Measures AMI/AHF: ASA po Prior to arrival: No DVT/VTE Risk/Contraindication: Risk Factor Score Per Nursin RFS Level Per Nursing on Admit: 4+=Very High BLANE JAIN MD Mar 02, 2020 10:49
--- NOTE | 2020-03-02 11:31 | Physical Therapy Progress Note ---
Therapy Progress Note Patient declined PT due to right foot pain. Will attempt in a.m. 1 ref ([id number]) IDRIS ONEIL PT Mar 02, 2020 11:30
[2020-03-02 12:13] VITALS: BP 109/70
--- NOTE | 2020-03-02 12:56 | Progress Note - Surgery ---
Subjective Time Seen by a Provider: 12:35 Subjective/Events-last exam Pt seen and examined, states has pain from foot down. Pain above foot is gone and neither leg tingles anymore. Review of Systems Pulmonary: No Dyspnea, No Cough Cardiovascular: No: Chest Pain, Palpitations Objective Exam Vital Signs Date Time Temp Pulse Resp B/P (MAP) Pulse Ox O2 Delivery O2 Flow Rate FiO2 03/02/20 12:13 36.8 107 20 109/70 (83) 93 Nasal Cannula 3.00 03/02/20 11:15 37.2 03/02/20 10:19 92 Nasal Cannula 3.50 03/02/20 09:35 37.2 03/02/20 09:00 Nasal Cannula 3.00 03/02/20 08:00 37.2 107 20 114/74 (87) 92 Nasal Cannula 3.00 03/02/20 07:14 92 Nasal Cannula 3.50 03/02/20 06:40 99 03/02/20 04:00 37.2 93 20 114/77 (89) 95 Nasal Cannula 3.00 03/02/20 02:14 87 Nasal Cannula 3.00 03/02/20 00:00 37.4 97 20 111/71 (84) 98 Nasal Cannula 3.00 03/01/20 21:15 92 Nasal Cannula 3.00 03/01/20 20:35 Nasal Cannula 3.00 03/01/20 20:30 37.4 99 18 111/59 (76) 96 Nasal Cannula 3.00 03/01/20 19:01 99 03/01/20 18:32 92 Nasal Cannula 3.00 03/01/20 16:00 36.8 93 20 107/56 (73) 96 Nasal Cannula 3.00 03/01/20 15:53 37.0 03/01/20 15:07 90 Nasal Cannula 3.00 03/01/20 14:30 37.0 20 97/61 (73) 93 Room Air 3 03/01/20 14:30 Nasal Cannula 3 03/01/20 14:20 20 99/66 (77) 93 Room Air 03/01/20 14:15 Room Air 03/01/20 14:10 20 93/63 (73) 96 OxyMask 3 03/01/20 14:00 20 93/63 (73) 100 OxyMask 3 03/01/20 14:00 36.4 88 18 101/70 (80) 99 Nasal Cannula 3.00 03/01/20 13:58 37.0 16 97/62 (74) 100 OxyMask 3 03/01/20 13:58 OxyMask 3 I & O 03/02/20 07:00 Intake Total 2700 ml Output Total 2205 ml Balance 495 ml Capillary Refill : Greater Than 3 SecondsLess Than 3 Seconds General Appearance: No Apparent Distress, Chronically ill HEENT: PERRL/EOMI Respiratory: Lungs Clear, No Respiratory Distress Extremity: Other (s/p amputation of 2 toes on right foot, wrapped in surgical dressing) Neurologic/Psychiatric: Alert, Oriented x3 Results Lab Laboratory Tests 03/02/20 05:45: White Blood Count 12.0H, Red Blood Count 3.51L, Hemoglobin 10.5L, Hematocrit 35L , Mean Corpuscular Volume 98, Mean Corpuscular Hemoglobin 30, Mean Corpuscular Hemoglobin Concent 30L, Red Cell Distribution Width 15.8H, Platelet Count 660H, Mean Platelet Volume 8.6, Neutrophils (%) (Auto) 67, Lymphocytes (%) (Auto) 18, Monocytes (%) (Auto) 12, Eosinophils (%) (Auto) 3, Basophils (%) (Auto) 0, Neutrophils # (Auto) 8.0H, Lymphocytes # (Auto) 2.1, Monocytes # (Auto) 1.4H, Eosinophils # (Auto) 0.3, Basophils # (Auto) 0.0 Microbiology 02/27/20 Urine Culture - Final, Complete NO GROWTH 02/27/20 Blood Culture - Preliminary, Resulted No growth Assessment/Plan Assessment/Plan Assessment/Plan Dry Gangrene - Toes of right foot S/P Amputation Hx of Afib on Xarelto B/L infiltrates with hx of Pneumonia and COPD Will take dressing down tomorrow, pt to work with PT and ok to ambulate today. Pain control. Continue current care. Clinical Quality Measures AMI/AHF: ASA po Prior to arrival: No DVT/VTE Risk/Contraindication: Risk Factor Score Per Nursin RFS Level Per Nursing on Admit: 4+=Very High CANDI MIJARES DO Mar 02, 2020 12:56
--- NOTE | 2020-03-02 14:06 | NUR ---
TORRES/LITZY visited with the patient for discharge planning. The patient reports that he is doing well today but still having a lot of pain in his foot from the amputation. TORRES/SS informed the patient of the most appropriate discharge plan being a skilled facility due to patients refusal of physical therapy. He reports that he does not want to go back and feels that he will be better within a couple of days. The patient states it felt too much like a rest home. Home Health: TORRES/LITZY is unsure of the agency but will contact Amparo with [facility] to see who they set patient up with upon discharge. He reports they are still seeing him. The patient is currently living with his brother Geo who helps the patient with cooking, dressing, and other task. The home health aide assist with bathing. Equipment: The patient reports that he has a nebulizer machine at home along with a walker. He states that he is unsure where they got them. TORRES/LITZY will continue to follow.
[2020-03-02 15:27] VITALS: BP 112/68
--- NOTE | 2020-03-02 16:33 | Cardiology Progress Note ---
Subjective Date Seen by Provider: Mar 02, 2020 Time Seen by Provider: 16:32 Subjective/Events-last exam Patient is in bed, doing well, feeling better Review of Systems General: No Chills, No Night Sweats, No Fatigue, No Malaise, No Appetite, No Other HEENT: No Head Aches, No Visual Changes, No Eye Pain, No Ear Pain, No Dysphasia, No Sinus Congestion, No Post Nasal Drip, No Sore Throat, No Other Pulmonary: No Dyspnea, No Cough, No Pleuritic Chest Pain, No Other Cardiovascular: No: Chest Pain, Palpitations, Orthopnea, Paroxysmal Noc. Dyspnea, Edema, Lt Headedness, Other Objective-Cardiology Exam Last Set of Vital Signs Vital Signs 03/02/20 15:27 Temp 37.2 Pulse 102 Resp 16 B/P (MAP) 112/68 (83) Pulse Ox 97 O2 Delivery Nasal Cannula O2 Flow Rate 3.00 Capillary Refill : Greater Than 3 SecondsLess Than 3 Seconds I&O Intake and Output 03/02/20 00:00 Intake Total 1000 ml Output Total 2705 ml Balance -1705 ml Intake Oral 1000 ml Output Urine Total 2705 ml General: Alert, Oriented X3, Cooperative HEENT: Atraumatic, PERRLA Neck: Supple, No JVD, No Thyromegaly Lungs: Clear to Auscultation, Normal Air Movement Heart: Regular Rate, Normal S1, Normal S2, No Murmurs Abdomen: Normal Bowel Sounds, Soft, No Tenderness, No Hepatosplenomegaly, No Masses Extremities: No Clubbing, No Edema Skin: No Rashes, Other (right toes with dry gangrene) Neuro: Normal Speech, Cranial Nerves 3-12 NL Psych/Mental Status: Mental Status NL, Mood NL Results Lab Laboratory Tests 03/02/20 05:45 A/P-Cardiology Admission Diagnosis Pneumonia, resolving Chest pain PVD Right foot gangrene Assessment/Plan Chest pain, nonspecific etiology, cardiac catheterization carried out on January 30, 2020 showing mild to moderate coronary artery disease nonobstructive disease. Chest pain is unlikely to be cardiac, patient reports improvement of symptoms today. Anemia, managed by primary care team, H&H is monitored, EGD done on last admission with Dr. Wright reported gastritis and hiatal hernia. Managed by primary care team PVD, Status post acute limb ischemia due to embolization probably from atrial fibrillation. Angiogram was carried out showing total occlusion with thrombus in the distal SFA, received thrombolytics and reestablished flow. Maintained on Xarelto at this time. 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 Wright, recovering well, no complaint PAF with RVR on 01/24/20, continue to monitor. Maintained on Xarelto Left upper lobe mass, Dr. Eugene following, planning for repeat CT as outpatient History of head trauma in or around 2017, was in coma for about a month. Has been on disability Tobaccoism, stopped smoking in December 2019, advised to continue to refrain Clinical Quality Measures AMI/AHF: ASA po Prior to arrival: No DVT/VTE Risk/Contraindication: Risk Factor Score Per Nursin RFS Level Per Nursing on Admit: 4+=Very High THERESA BELLAMY MD Mar 02, 2020 16:33
[2020-03-02] MEDS: ALPRAZolam 0.5 MG (XANAX) TAB PO PRN (19:53)
[2020-03-02 20:07] VITALS: BP 117/71
[2020-03-03] VITALS (7 sets, daily range): BP systolic 101–119; BP diastolic 54–71
[2020-03-03] MEDS: RT-ALBUTEROL/IPRATROPIUM 3 ML (DUONEB) VIAL INH SCH ×6 (02:31→22:50)
[2020-03-03 04:41] LABS: BASOPHILS % (AUTO) 0 % (0-10); EOSINOPHILS # (AUTO) 0.2 10^3/uL (0.0-0.3); EOSINOPHILS % (AUTO) 2 % (0-10); HEMATOCRIT 32 % (40-54); LYMPHOCYTES # (AUTO) 2.4 X 10^3 (1.0-4.0); LYMPHOCYTES % (AUTO) 25 % (12-44); MEAN CORPUSCULAR HEMOGLOBIN 31 PG (25-34); MEAN CORPUSCULAR HGB CONC 31 G/DL (32-36); MEAN CORPUSCULAR VOLUME 98 FL (80-99); MEAN PLATELET VOLUME 8.7 FL (7.4-10.4); MONOCYTES # (AUTO) 1.2 X 10^3 (0.0-1.0); MONOCYTES % (AUTO) 12 % (0-12); NEUTROPHILS # (AUTO) 5.9 X 10^3 (1.8-7.8); NEUTROPHILS % (AUTO) 61 % (42-75); PLATELET COUNT 632 10^3/uL (130-400); RED CELL DISTRIBUTION WIDTH 15.4 % (10.0-14.5); WHITE BLOOD COUNT 9.6 10^3/uL (4.3-11.0)
[2020-03-03] MEDS: UMECLIDINIUM BROMIDE (INCRUSE ELLIPTA) 7'S IH SCH (06:11)
[2020-03-03] MEDS: ADVAIR HFA 115/21 MCG INHALER 8 GM IH SCH ×2 (06:12→18:45)
[2020-03-03] MEDS: predniSONE 20 MG TAB PO SCH (06:28)
[2020-03-03] MEDS: morphine INJ 4 MG/ML 1 ML (VIAL/SYRINGE) IVP PRN ×6 (06:28→22:06)
--- NOTE | 2020-03-03 08:34 | Progress Note - Hospitalist ---
Subjective HPI/CC On Admission Date Seen by Provider: Mar 03, 2020 Time Seen by Provider: 08:32 Moshe Soto is a 59-year-old male with past medical history of hypertension, atrial fibrillation on Xarelto, peripheral arterial disease, COPD, anemia, malnutrition, possible lung mass, recurrent pneumonias, who presented with malaise. He reports an overall unwell feeling. He reports having chest pain which is severe. He reports the pain radiates to his right arm. He is also feeling short of breath. He is also feeling anxious. He denies any nausea or vomiting. He reports pain in his bilateral feet. Several toes on his right foot are black but he is unsure of how long they have been this way. He also reports fevers, cough, and sore throat. Subjective/Events-last exam Pt is doing much better today. Pain control improved. Got up and walked to the bathroom with a walker without problem. Objective Exam Vital Signs Vital Signs Date Time Temp Pulse Resp B/P (MAP) Pulse Ox O2 Delivery O2 Flow Rate FiO2 03/03/20 06:14 92 Nasal Cannula 3.00 03/03/20 04:53 37.0 86 18 114/69 (84) Capillary Refill : Greater Than 3 SecondsLess Than 3 Seconds General Appearance: No Apparent Distress, Chronically ill Respiratory: Lungs Clear, No Respiratory Distress Cardiovascular: Regular Rate, Rhythm, No Murmur Gastrointestinal: Normal Bowel Sounds, Soft Extremity: No Pedal Edema Neurologic/Psychiatric: Alert, Oriented x3 Results/Procedures Lab Laboratory Tests 03/03/20 04:07 Patient resulted labs reviewed. Imaging: Reviewed Imaging Report Assessment/Plan Assessment and Plan Assess & Plan/Chief Complaint Dry gangrene of the right foot Gen. surgery consulted, appreciate assistance s/p amputation Pain regimen ordered - Was up and ambulating already today, doing much better than expected, recommen ded continuing work with PT and may be able to DC home with Musculoskeletal chest pain Cardiology consulted, appreciate assistance Troponins remained normal CT negative for PE Continue pain regimen - Cardiac cath during last visit in January was clean Atelectasis COPD with acute exacerbation Possible lung mass Chest x-ray with worsening right lower lobe pneumonia/atelectasis Afebrile, no leukocytosis Procalcitonin normal 2 COVID negative Continue steroids MAT protocol Pulmonology consulted, appreciate assistance - Discussed option for bronchoscopy on 6/[address] Eugene, will plan on outpatient follow up CT in 8 weeks instead HTN AFib Continue home meds - Resume anticoagulation today Anemia Hemoglobin 9.2, stable, continue to monitor DVT prophylaxis: Xarelto for A-fib Clinical Quality Measures AMI/AHF: ASA po Prior to arrival: No DVT/VTE Risk/Contraindication: Risk Factor Score Per Nursin RFS Level Per Nursing on Admit: 4+=Very High BLANE JAIN MD Mar 03, 2020 08:34
--- NOTE | 2020-03-03 08:44 | Cardiology Progress Note ---
Subjective Date Seen by Provider: Mar 03, 2020 Time Seen by Provider: 08:43 Subjective/Events-last exam Patient is sitting up in bed, c/o foot pain. Denies any chest pain or dyspnea. Review of Systems General: No Chills, No Night Sweats, No Fatigue, No Malaise, No Appetite, No Other HEENT: No Head Aches, No Visual Changes, No Eye Pain, No Ear Pain, No Dysphasia, No Sinus Congestion, No Post Nasal Drip, No Sore Throat, No Other Pulmonary: No Dyspnea, No Cough, No Pleuritic Chest Pain, No Other Cardiovascular: No: Chest Pain, Palpitations, Orthopnea, Paroxysmal Noc. Dyspnea, Edema, Lt Headedness, Other Objective-Cardiology Exam Last Set of Vital Signs Vital Signs 03/03/20 03/03/20 09:51 12:48 Temp 36.4 Pulse 92 Resp 20 B/P (MAP) 104/65 (78) Pulse Ox 96 O2 Delivery Room Air O2 Flow Rate 3.00 Capillary Refill : Greater Than 3 SecondsLess Than 3 Seconds I&O Intake and Output0 03/03/20 00:00 Intake Total 4114 ml Output Total 2675 ml Balance 1439 ml Intake Oral 4114 ml Output Urine Total 2675 ml General: Alert, Oriented X3, Cooperative HEENT: Atraumatic, PERRLA Neck: Supple, No JVD, No Thyromegaly Lungs: Clear to Auscultation, Normal Air Movement Heart: Regular Rate, Normal S1, Normal S2, No Murmurs Abdomen: Normal Bowel Sounds, Soft, No Tenderness, No Hepatosplenomegaly, No Masses Extremities: No Clubbing, No Edema Skin: No Rashes, Other (C/D/I dressing to right foot. ) Neuro: Normal Speech, Cranial Nerves 3-12 NL Psych/Mental Status: Mental Status NL, Mood NL Results Lab Laboratory Tests 03/03/20 04:07 A/P-Cardiology Admission Diagnosis Pneumonia, resolving Chest pain PVD Right foot gangrene Assessment/Plan Chest pain, nonspecific etiology, cardiac catheterization carried out on January 30, 2020 showing mild to moderate coronary artery disease nonobstructive disease. Chest pain is unlikely to be cardiac, no further episodes of chest pain were reported Anemia, managed by primary care team, H&H is monitored, EGD done on last admission with Dr. Wright reported gastritis and hiatal hernia. Managed by primary care team PVD, Status post acute limb ischemia due to embolization probably from atrial fibrillation. Angiogram was carried out showing total occlusion with thrombus in the distal SFA, received thrombolytics and reestablished flow. Maintained on Xarelto at this time. 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 Wright, recovering well, no complaint PAF with RVR on 01/24/20, continue to monitor. Maintained on Xarelto Left upper lobe mass, Dr. Eugene following, planning for repeat CT as outpatient History of head trauma in or around 2017, was in coma for about a month. Has been on disability Tobaccoism, stopped smoking in December 2019, advised to continue to refrain Patient was seen and evaluated with Stacie, examination performed, management plan was discussed, agree with the current scribed note, I made few changes to the note using Italic font Clinical Quality Measures AMI/AHF: ASA po Prior to arrival: No DVT/VTE Risk/Contraindication: Risk Factor Score Per Nursin RFS Level Per Nursing on Admit: 4+=Very High STACIE PATEL Mar 03, 2020 8:44 am THERESA BELLAMY MD Mar 03, 2020 12:59 pm
[2020-03-03] MEDS: GABAPENTIN 300 MG (NEURONTIN) CAP PO SCH ×3 (09:43→20:22)
[2020-03-03] MEDS: DOCUSATE SODIUM 100 MG (COLACE) CAP PO SCH ×2 (09:43→20:22)
[2020-03-03] MEDS: DIGOXIN 0.25 MG (LANOXIN) TAB PO SCH (09:43)
[2020-03-03] MEDS: SENNOSIDES 8.6 MG (SENOKOT) TAB PO SCH ×2 (09:43→20:22)
--- NOTE | 2020-03-03 10:56 | Occupational Ther Daily Note ---
OT Current Status-Daily Note Subjective Pt alert, sitting in chair. Took over care from PT. Pt agrees to therapy. Stating that he just had surgery on his R foot this am. Pt c/o pain at end of therapy, notified nrsg. Mental Status/Objective Patient Orientation: Person, Place, Time, Situation Attachments: IV, Oxygen ADL-Treatment Pt declined shower, sponge bath stating that he had one yesterday. Did agree to oral care, CHAVIS gathered supplies and pt was able to set up and complete oral care. Pt then wanted to wash Betadine off of R ankle from surgery, CHAVIS gathered supplies and pt able to complete. At end of session, pt ambulated, using FWW and putting wt on R heel, to bed. EOB to supine independent. Call light/phone in reach. All needs met in room. Therapy Code Descriptions/Definitions Functional [place] Measure: 0=Not Assessed/NA 4=Minimal Assistance 1=Total Assistance 5=Supervision or Setup 2=Maximal Assistance 6=Modified [place] 3=Moderate Assistance 7=Complete IndependenceSCALE: Activities may be completed with or without assistive devices. 5-Qsgunogzop-bbjqgzq completes the activity by him/herself with no assistance from a helper. 5-Set-up or Clean-up Assistance-helper sets up or cleans up; patient completes activity. [place] assists only prior to or following the activity. 4-Supervision or Touching Assistance-helper provides verbal cues and/or touching/steadying and/or contact guard assistance as patient completes activity. Assistance may be provided throughout the activity or intermittently. 3-Partial/Moderate Assistance-helper does LESS THAN HALF the effort. [place] lifts, holds or supports trunk or limbs, but provides less than half the effort. 2-Substantial/Maximal Assistance-helper does MORE THAN HALF the effort. [place] lifts or holds trunk or limbs and provides more than half the effort. 0-Bjmgpzjet-gmlimc does ALL the effort. Patient does none of the effort to complete the activity. Or, the assistance of 2 or more helpers is required for the patient to complete the activity. If activity was not attempted, code reason: 7-Patient Refused. 9-Not Applicable-not attempted and the patient did not perform the activity before the current illness, exacerbation or injury. 10-Not Attempted due to Environmental Limitations-(lack of equipment, weather restraints, etc.). 88-Not Attempted due to Medical Conditions or Safety Concerns. Oral Hygiene (QC): 5 Other Treatment Pt remembered 2 UE exercises from previous stay. Pt completed 3 exercises against gravity 1 set 10 reps. Skilled instruction for positioning and technique. OT Media Clerk Goals Long-Term Goals Time Frame: Mar 18, 2010 Eating (QC): 6 Oral Hygiene (QC): 6 Toileting Hygiene (QC): 6 Shower/Bathe Self (QC): 6 Upper Body Dressing (QC): 6 Lower Body Dressing (QC): 6 On/Off Footwear (QC): 6 1=Demonstrate adherence to instructed precautions during ADL tasks. 2=Patient will verbalize/demonstrate understanding of assistive devices/modifications for ADL. 3=Patient will improve strength/tolerance for activity to enable patient to perform ADL's. OT Education/Plan Problem List/Assessment Assessment: Decreased Activ Tolerance, Decreased UE Strength, Impaired Self- Care Skills Discharge Recommendations Plan/Recommendations: Continue POC Treatment Plan/Plan of Care Patient would benefit from OT for education, treatment and training to promote independence in ADL's, mobility, safety and/or upper extremity function for ADL's. Plan of Care: ADL Retraining, Functional Mobility, UE Funct Exercise/Act Treatment Duration: Mar 19, 2020 Frequency: 5 times per week Estimated Hrs Per Day: .25 hour per day Rehab Potential: Guarded Time/GCodes Start Time: 10:20 Stop Time: 10:46 Total Time Billed (hr/min): 26 Billed Treatment Time 1 visit-ADL 1 (15 min) EX 1 (11 min) CANDI MITCHELL Mar 03, 2020 10:55
--- NOTE | 2020-03-03 11:04 | Physical Therapy Daily Note ---
PT Daily Note-Current Subjective Pt in bed . Initially declines therapies stating his Dr told him to rest and heal. This therapist sharing that Dr is also who ordered therapies and then reviewed the risks of blood clot, pneumonia and further skin break down. Pt. was cooperative then Pain Numeric Pain Scale: 7 Location: Right Location Body Site: Foot Pain Description: Stabbing Mental Status Patient Orientation: Person, Place, Time, Situation Attachments: Oxygen (3L) Transfers SCALE: Activities may be completed with or without assistive devices. 1-Rxhimzlfid-fakvaqi completes the activity by him/herself with no assistance from a helper. 5-Set-up or Clean-up Assistance-helper sets up or cleans up; patient completes activity. [place] assists only prior to or following the activity. 4-Supervision or Touching Assistance-helper provides verbal cues and/or touching/steadying and/or contact guard assistance as patient completes activity. Assistance may be provided throughout the activity or intermittently. 3-Partial/Moderate Assistance-helper does LESS THAN HALF the effort. [place] lifts, holds or supports trunk or limbs, but provides less than half the effort. 2-Substantial/Maximal Assistance-helper does MORE THAN HALF the effort. [place] lifts or holds trunk or limbs and provides more than half the effort. 6-Ozumenvrg-kagvlq does ALL the effort. Patient does none of the effort to complete the activity. Or, the assistance of 2 or more helpers is required for the patient to complete the activity. If activity was not attempted, code reason: 7-Patient Refused. 9-Not Applicable-not attempted and the patient did not perform the activity before the current illness, exacerbation or injury. 10-Not Attempted due to Environmental Limitations-(lack of equipment, weather restraints, etc.). 88-Not Attempted due to Medical Conditions or Safety Concerns. Roll Left & Right (QC): 6 Lying to Sitting/Side of Bed(Q: 6 Sit to Stand (QC): 5 Chair/Mdt-bz-Ionhm Xfer(QC): 4 Weight Bearing Right Lower Extremity: Right Weight Bearing/Tolerated Left Lower Extremity: Left Weight Bearing/Tolerated Gait Training Does the Patient Walk?: Yes Walk 10 feet (QC): 4 Gait Persons Needed: 1 Gait Assistive Device: FWW CGA 10 ft x2 with pain being limiting factor. Pt. anxious to reach chair Exercises Supine Ex: Ankle pumps, Quad Set, Glut sets, Heel Slides, Straight leg raise, Hip abd/add Supine Reps: 15 Seated Therapy Exercises: Long arc quads, Hip flexion Seated Reps: 10 Treatments up in recliner after Rx, LEs elevated with heels free, call davison at hand, O2 insitu Assessment Current Status: Good Progress resistive of Rx but cooperative with explanation and encouragement PT Mcc Goals Mcc Goals PT Repair Coil Winder Goals Time Frame: Mar 13, 2020 Roll Left & Right (QC): 6 Sit to Lying (QC): 6 Lying-Sitting on Side/Bed(QC): 6 Sit to Stand (QC): 6 Chair/Xid-ce-Wqjqi Xfer(QC): 6 Toilet Transfer (QC): 6 Does the Patient Walk: Yes Walk 10 feet (QC): 6 Walk 50ft with 2 Turns (QC): 6 PT Plan Treatment/Plan Treatment Plan: Continue Plan of Care Treatment Plan: Bed Mobility, Education, Functional Activity Lore[place], Functional Strength, Gait, Safety, Therapeutic Exercise, Transfers Treatment Duration: Mar 13, 2020 Frequency: 6 times per week Estimated Hrs Per Day: .25 hour per day Patient and/or Family Agrees t: Yes Safety Risks/Education Patient Education: Gait Training, Transfer Techniques, Correct Positioning, Disease Process, Safety Issues Teaching Recipient: Patient Teaching Methods: Demonstration, Discussion Response to Teaching: Verbalize Understanding, Return Demonstration, Reinforcement Needed Time/GCodes Time In: 955 Time Out: 1020 Total Billed Treatment Time: 25 Total Billed Treatment 1,GT10m,EX15m MELINDA MICHAEL COMPUTER AIDE Mar 03, 2020 11:04
--- NOTE | 2020-03-03 11:47 | NUR ---
CM/SS follow up. CM/SS visited with patient to follow up on physical therapy progress. He states that he's worked with PT twice today and reports that he was able to get up and walk around. He was also able to participate in all other bed exercises. The patient reports he had some pain with walking but was able to shift weight on his heal. Per the physician, the patient may be able to discharge back home tomorrow if physically able. Will continue to follow. Addendum: 03/03/20 at 1321 by IJEOMA BOWLES CM/SS contacted Amparo from [facility] to see what home health the patient was setup with upon discharge from skilled facility. She reports that the patient was set up with [facility].
--- NOTE | 2020-03-03 16:20 | Progress Note - Surgery ---
Subjective Time Seen by a Provider: 16:11 Subjective/Events-last exam Pt seen and examined, states his foot hurts but otherwise ok. Review of Systems Pulmonary: No Dyspnea, No Cough Cardiovascular: No: Chest Pain, Palpitations Objective Exam Vital Signs Date Time Temp Pulse Resp B/P (MAP) Pulse Ox O2 Delivery O2 Flow Rate FiO2 03/03/20 14:29 92 Nasal Cannula 3.00 03/03/20 14:11 36.4 94 92 32 03/03/20 12:48 36.4 92 20 104/65 (78) 96 Room Air 03/03/20 12:30 90 03/03/20 09:51 93 Nasal Cannula 3.00 03/03/20 09:00 93 Nasal Cannula 3.00 03/03/20 08:00 36.4 94 19 103/54 (70) 92 Room Air 03/03/20 06:38 91 03/03/20 06:14 92 Nasal Cannula 3.00 03/03/20 06:14 92 Nasal Cannula 3.00 03/03/20 06:12 92 Nasal Cannula 3.00 03/03/20 04:53 37.0 86 18 114/69 (84) 95 Nasal Cannula 3.00 03/03/20 02:29 91 Nasal Cannula 3.00 03/03/20 01:00 91 03/03/20 00:13 37.5 96 18 119/71 (87) 97 Nasal Cannula 3.00 03/02/20 22:13 93 Nasal Cannula 3.00 03/02/20 21:15 Nasal Cannula 3.00 03/02/20 20:07 37.2 93 16 117/71 (86) 94 Nasal Cannula 3.00 03/02/20 19:00 97 03/02/20 18:37 93 Nasal Cannula 3.00 I & O 03/03/20 07:00 Intake Total 2514 ml Output Total 2675 ml Balance -161 ml Capillary Refill : NONELess Than 3 Seconds General Appearance: No Apparent Distress, Chronically ill HEENT: PERRL/EOMI Respiratory: Lungs Clear, No Respiratory Distress Extremity: Other (dressing taken down, incision C/D/I with minimal erythema and swelling (looks like normal post-operative findings)) Neurologic/Psychiatric: Alert, Oriented x3 Results Lab Laboratory Tests 03/03/20 04:07: White Blood Count 9.6, Red Blood Count 3.25L, Hemoglobin 10.0L, Hematocrit 32L, Mean Corpuscular Volume 98, Mean Corpuscular Hemoglobin 31, Mean Corpuscular Hemoglobin Concent 31L, Red Cell Distribution Width 15.4H, Platelet Count 632H, Mean Platelet Volume 8.7, Neutrophils (%) (Auto) 61, Lymphocytes (%) (Auto) 25, Monocytes (%) (Auto) 12, Eosinophils (%) (Auto) 2, Basophils (%) (Auto) 0, Neutrophils # (Auto) 5.9, Lymphocytes # (Auto) 2.4, Monocytes # (Auto) 1.2H, Eosinophils # (Auto) 0.2, Basophils # (Auto) 0.0 Microbiology 02/27/20 Urine Culture - Final, Complete NO GROWTH 02/27/20 Blood Culture - Final, Complete No growth Assessment/Plan Assessment/Plan Assessment/Plan S/P Amputation - 1st and 2nd toe right foot Hx of Afib on Xarelto B/L infiltrates with hx of Pneumonia and COPD Foot looks good; cont work with PT and ambulate as tolerated. Pain control. Telfa and kerlix for dressing on foot. Clinical Quality Measures AMI/AHF: ASA po Prior to arrival: No DVT/VTE Risk/Contraindication: Risk Factor Score Per Nursin RFS Level Per Nursing on Admit: 4+=Very High CANDI MIJARES DO Mar 03, 2020 16:20
[2020-03-03] MEDS: RIVAROXABAN 20 MG TABLET (XARELTO) PO SCH (16:38)
[2020-03-04 00:03] VITALS: BP 107/65
[2020-03-04] MEDS: morphine INJ 4 MG/ML 1 ML (VIAL/SYRINGE) IVP PRN ×6 (00:14→23:58)
[2020-03-04] MEDS: RT-ALBUTEROL/IPRATROPIUM 3 ML (DUONEB) VIAL INH SCH ×6 (02:36→20:59)
[2020-03-04 04:09] VITALS: BP 115/70
--- NOTE | 2020-03-04 06:27 | Pulmonary Progress Note ---
Subjective Time Seen by a Provider: 06:26 Subjective/Events-last exam No complications noted. Sepsis Event Evaluation Height, Weight, BMI Height: '" Weight: lbs. oz. kg; 19.00 BMI Method: Exam Exam Vital Signs Date Time Temp Pulse Resp B/P (MAP) Pulse Ox O2 Delivery O2 Flow Rate FiO2 03/04/20 04:09 36.7 86 20 115/70 (85) 94 Nasal Cannula 3.00 03/04/20 02:36 94 Nasal Cannula 3.00 03/04/20 00:03 37.2 90 22 107/65 (79) 95 Nasal Cannula 3.00 03/03/20 22:50 93 Nasal Cannula 3.00 03/03/20 21:00 36.4 97 16 103/63 (76) 93 Nasal Cannula 4.00 03/03/20 20:25 Nasal Cannula 3.00 03/03/20 19:00 94 03/03/20 18:45 94 Nasal Cannula 3.00 03/03/20 16:21 36.6 96 16 101/64 (76) 95 Nasal Cannula 4.00 03/03/20 14:29 92 Nasal Cannula 3.00 03/03/20 14:11 36.4 94 92 32 03/03/20 12:48 36.4 92 20 104/65 (78) 96 Room Air 03/03/20 12:30 90 03/03/20 09:51 93 Nasal Cannula 3.00 03/03/20 09:00 93 Nasal Cannula 3.00 03/03/20 08:00 36.4 94 19 103/54 (70) 92 Room Air 03/03/20 06:38 91 I & O 03/04/20 07:00 Intake Total 1660 ml Output Total 1625 ml Balance 35 ml Height & Weight Height: '" Weight: lbs. oz. kg; 19.00 BMI Method: General Appearance: No Apparent Distress, Chronically ill HEENT: PERRL/EOMI Respiratory: Lungs Clear, No Respiratory Distress Capillary Refill: Less Than 3 Seconds Extremity: Other (dressing taken down, incision C/D/I with minimal erythema and swelling (looks like normal post-operative findings)) Neurologic/Psychiatric: Alert, Oriented x3 Results Lab Laboratory Tests 03/03/20 04:07 Assessment/Plan Assessment/Plan Dry Gangrene - Toes of right foot -S/p surgery RLL resolving PNA -Will need repeat CT of chest in 8wks after discharge s/p Acute occlusion of artery of right lower extremity s/p abdominal aorta gram with TPA via cath - Last hospitalization Tobacco use with probable severe COPD -Out pt testing -Start Albuterol, Spiriva, and Advair JENI DENISE DO Mar 04, 2020 06:27
[2020-03-04] MEDS: predniSONE 20 MG TAB PO SCH (06:29)
[2020-03-04] MEDS: UMECLIDINIUM BROMIDE (INCRUSE ELLIPTA) 7'S IH SCH (06:33)
[2020-03-04] MEDS: ADVAIR HFA 115/21 MCG INHALER 8 GM IH SCH ×2 (06:33→20:59)
[2020-03-04 06:47] LABS: BASOPHILS % (AUTO) 0 % (0-10); EOSINOPHILS # (AUTO) 0.1 10^3/uL (0.0-0.3); EOSINOPHILS % (AUTO) 1 % (0-10); HEMATOCRIT 32 % (40-54); HEMOGLOBIN 9.8 G/DL (13.3-17.7); LYMPHOCYTES # (AUTO) 2.7 X 10^3 (1.0-4.0); LYMPHOCYTES % (AUTO) 20 % (12-44); MEAN CORPUSCULAR HEMOGLOBIN 31 PG (25-34); MEAN CORPUSCULAR HGB CONC 31 G/DL (32-36); MEAN CORPUSCULAR VOLUME 99 FL (80-99); MONOCYTES # (AUTO) 1.2 X 10^3 (0.0-1.0); MONOCYTES % (AUTO) 9 % (0-12); NEUTROPHILS # (AUTO) 9.4 X 10^3 (1.8-7.8); NEUTROPHILS % (AUTO) 70 % (42-75); PLATELET COUNT 699 10^3/uL (130-400); RED CELL DISTRIBUTION WIDTH 15.6 % (10.0-14.5); WHITE BLOOD COUNT 13.4 10^3/uL (4.3-11.0)
[2020-03-04 08:00] VITALS: BP 104/64
--- NOTE | 2020-03-04 08:30 | Cardiology Progress Note ---
Subjective Date Seen by Provider: Mar 04, 2020 Time Seen by Provider: 08:28 Subjective/Events-last exam Patient up in room, no new complaints. Denies any chest pain or dyspnea. Review of Systems General: No Chills, No Night Sweats, No Fatigue, No Malaise, No Appetite, No Other HEENT: No Head Aches, No Visual Changes, No Eye Pain, No Ear Pain, No Dysphasia, No Sinus Congestion, No Post Nasal Drip, No Sore Throat, No Other Pulmonary: No Dyspnea, No Cough, No Pleuritic Chest Pain, No Other Cardiovascular: No: Chest Pain, Palpitations, Orthopnea, Paroxysmal Noc. Dyspnea, Edema, Lt Headedness, Other Objective-Cardiology Exam Last Set of Vital Signs Vital Signs 03/03/20 03/04/20 14:11 08:00 Temp 36.3 Pulse 98 Resp 19 B/P (MAP) 104/64 (77) Pulse Ox 91 O2 Delivery Nasal Cannula O2 Flow Rate 3.00 FiO2 32 Capillary Refill : NONELess Than 3 Seconds I&O Intake and Output 03/04/20 00:00 Intake Total 1760 ml Output Total 2625 ml Balance -865 ml Intake Oral 1760 ml Output Urine Total 2625 ml # Bowel Movements 1 Daily Weight Change Unsure/Unresponsive General: Alert, Oriented X3, Cooperative HEENT: Atraumatic, PERRLA Neck: Supple, No JVD, No Thyromegaly Lungs: Clear to Auscultation, Normal Air Movement Heart: Regular Rate, Normal S1, Normal S2, No Murmurs Abdomen: Normal Bowel Sounds, Soft, No Tenderness, No Hepatosplenomegaly, No Masses Extremities: No Clubbing, No Edema Skin: No Rashes, Other (C/D/I dressing to right foot. ) Neuro: Normal Speech, Cranial Nerves 3-12 NL Psych/Mental Status: Mental Status NL, Mood NL Results Lab Laboratory Tests 03/04/20 06:17 A/P-Cardiology Admission Diagnosis Pneumonia, resolving Chest pain PVD Right foot gangrene Assessment/Plan Chest pain, nonspecific etiology, cardiac catheterization carried out on January 30, 2020 showing mild to moderate coronary artery disease nonobstructive disease. Chest pain is unlikely to be cardiac, no further episodes of chest pain were reported Anemia, managed by primary care team, H&H is monitored, EGD done on last admission with Dr. Wright reported gastritis and hiatal hernia. Managed by primary care team PVD, Status post acute limb ischemia due to embolization probably from atrial fibrillation. Angiogram was carried out showing total occlusion with thrombus in the distal SFA, received thrombolytics and reestablished flow. Maintained on Xarelto at this time. 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 Wright, recovering well, no complaint PAF with RVR on 01/24/20, continue to monitor. Maintained on Xarelto Left upper lobe mass, Dr. Eugene following, planning for repeat CT as outpatient History of head trauma in or around 2017, was in coma for about a month. Has been on disability Tobaccoism, stopped smoking in December 2019, advised to continue to refrain Patient was seen and evaluated with Stacie, examination performed, management plan was discussed, agree with the current scribed note, I made few changes to the note using Italic font Patient was seen, receiving physical therapy, feeling better Lungs were clear, heart regular. Recovering well. Continue on current treatment. Clinical Quality Measures AMI/AHF: ASA po Prior to arrival: No DVT/VTE Risk/Contraindication: Risk Factor Score Per Nursin RFS Level Per Nursing on Admit: 4+=Very High STACIE PATEL Mar 04, 2020 8:30 am THERESA BELLAMY MD Mar 04, 2020 9:03 am
[2020-03-04] MEDS: SENNOSIDES 8.6 MG (SENOKOT) TAB PO SCH ×2 (09:01→21:01)
[2020-03-04] MEDS: DIGOXIN 0.25 MG (LANOXIN) TAB PO SCH (09:01)
[2020-03-04] MEDS: GABAPENTIN 300 MG (NEURONTIN) CAP PO SCH ×3 (09:02→21:01)
[2020-03-04] MEDS: DOCUSATE SODIUM 100 MG (COLACE) CAP PO SCH ×2 (09:05→21:01)
[2020-03-04] MEDS: ALPRAZolam 0.5 MG (XANAX) TAB PO PRN (09:06)
--- NOTE | 2020-03-04 09:37 | Progress Note - Hospitalist ---
Subjective HPI/CC On Admission Date Seen by Provider: Mar 04, 2020 Time Seen by Provider: 09:37 Moshe Soto is a 59-year-old male with past medical history of hypertension, atrial fibrillation on Xarelto, peripheral arterial disease, COPD, anemia, malnutrition, possible lung mass, recurrent pneumonias, who presented with malaise. He reports an overall unwell feeling. He reports having chest pain which is severe. He reports the pain radiates to his right arm. He is also feeling short of breath. He is also feeling anxious. He denies any nausea or vomiting. He reports pain in his bilateral feet. Several toes on his right foot are black but he is unsure of how long they have been this way. He also reports fevers, cough, and sore throat. Subjective/Events-last exam Pt reports feeling much better today. Worked well with therapy. Hopes to go for a longer walk today. Objective Exam Vital Signs Vital Signs Date Time Temp Pulse Resp B/P (MAP) Pulse Ox O2 Delivery O2 Flow Rate FiO2 03/04/20 08:00 36.3 98 19 104/64 (77) 91 Nasal Cannula 3.00 03/03/20 14:11 32 Capillary Refill : NONELess Than 3 Seconds General Appearance: No Apparent Distress, Chronically ill Respiratory: Lungs Clear, No Respiratory Distress Cardiovascular: Regular Rate, Rhythm, No Murmur Neurologic/Psychiatric: Alert, Oriented x3 Results/Procedures Lab Laboratory Tests 03/04/20 06:17 Patient resulted labs reviewed. Imaging: Reviewed Imaging Report Assessment/Plan Assessment and Plan Assess & Plan/Chief Complaint Dry gangrene of the right foot Gen. surgery consulted, appreciate assistance s/p amputation Pain regimen ordered - Continue work with PT- will likely be able to DC home with HH in the next 1-2 days Musculoskeletal chest pain Cardiology consulted, appreciate assistance Troponins remained normal CT negative for PE Continue pain regimen - Cardiac cath during last visit in January was clean Atelectasis COPD with acute exacerbation Possible lung mass Chest x-ray with worsening right lower lobe pneumonia/atelectasis Afebrile, no leukocytosis Procalcitonin normal 2 COVID negative Continue steroids MAT protocol Pulmonology consulted, appreciate assistance - Discussed option for bronchoscopy on 03/[address] Eugene, will plan on o utpatient follow up CT in 8 weeks instead HTN AFib Continue home meds - Continue anticoagulation Anemia Hemoglobin stable, continue to monitor DVT prophylaxis: Xarelto for A-fib Clinical Quality Measures AMI/AHF: ASA po Prior to arrival: No DVT/VTE Risk/Contraindication: Risk Factor Score Per Nursin RFS Level Per Nursing on Admit: 4+=Very High BLANE JAIN MD Mar 04, 2020 09:37
--- NOTE | 2020-03-04 09:50 | Physical Therapy Daily Note ---
PT Daily Note-Current Subjective Patient is very agreeable to participate with PT. Pain Numeric Pain Scale: 5-Moderate Pain Location: Right Location Body Site: Toe Pain Description: Acute, Throbbing Mental Status Patient Orientation: Normal For Age Attachments: Oxygen Transfers SCALE: Activities may be completed with or without assistive devices. 6-Unbuehjvxz-znebnxk completes the activity by him/herself with no assistance from a helper. 5-Set-up or Clean-up Assistance-helper sets up or cleans up; patient completes a ctivity. [place] assists only prior to or following the activity. 4-Supervision or Touching Assistance-helper provides verbal cues and/or touching/steadying and/or contact guard assistance as patient completes activity. Assistance may be provided throughout the activity or intermittently. 3-Partial/Moderate Assistance-helper does LESS THAN HALF the effort. [place] lifts, holds or supports trunk or limbs, but provides less than half the effort. 2-Substantial/Maximal Assistance-helper does MORE THAN HALF the effort. [place] lifts or holds trunk or limbs and provides more than half the effort. 3-Afttixjue-rtprze does ALL the effort. Patient does none of the effort to complete the activity. Or, the assistance of 2 or more helpers is required for the patient to complete the activity. If activity was not attempted, code reason: 7-Patient Refused. 9-Not Applicable-not attempted and the patient did not perform the activity before the current illness, exacerbation or injury. 10-Not Attempted due to Environmental Limitations-(lack of equipment, weather restraints, etc.). 88-Not Attempted due to Medical Conditions or Safety Concerns. Sit to Stand (QC): 6 Weight Bearing Right Lower Extremity: Right Weight Bearing/Tolerated Left Lower Extremity: Left Weight Bearing/Tolerated Gait Training Does the Patient Walk?: Yes Distance: 150' Walk 10 feet (QC): 6 Walk 50 ft with 2 Turns(QC): 6 Walk 150 ft (QC): 6 Gait Assistive Device: FWW surgical shoe place on right foot for protection Assessment Patient much more improved with progress and will dismiss to home this week. Physician notified of patient's progress. PT [facility] Goals Fci Goals PT [facility] Goals Time Frame: Mar 13, 2020 Roll Left & Right (QC): 6 Sit to Lying (QC): 6 Lying-Sitting on Side/Bed(QC): 6 Sit to Stand (QC): 6 Chair/Xar-or-Ibmha Xfer(QC): 6 Toilet Transfer (QC): 6 Does the Patient Walk: Yes Walk 10 feet (QC): 6 Walk 50ft with 2 Turns (QC): 6 PT Plan Treatment/Plan Treatment Plan: Continue Plan of Care Treatment Plan: Bed Mobility, Education, Functional Activity Lorena, Functional Strength, Gait, Safety, Therapeutic Exercise, Transfers Treatment Duration: Mar 13, 2020 Frequency: 6 times per week Estimated Hrs Per Day: .25 hour per day Patient and/or Family Agrees t: Yes Time/GCodes Time In: 915 Time Out: 929 Total Billed Treatment Time: 14 Total Billed Treatment 1 visit FA 14 min IDRIS ONEIL PT Mar 04, 2020 09:50
--- NOTE | 2020-03-04 10:19 | Occupational Ther Daily Note ---
OT Current Status-Daily Note Subjective Pt seated in recliner, appeared to be in good spirits this AM. Pt reports he feels like he has made good progress this week and he is hopeful to return home on Sunday. ADL-Treatment Therapy Code Descriptions/Definitions Functional [place] Measure: 0=Not Assessed/NA 4=Minimal Assistance 1=Total Assistance 5=Supervision or Setup 2=Maximal Assistance 6=Modified [place] 3=Moderate Assistance 7=Complete IndependenceSCALE: Activities may be completed with or without assistive devices. 5-Oytxditotu-rotbeqf completes the activity by him/herself with no assistance from a helper. 5-Set-up or Clean-up Assistance-helper sets up or cleans up; patient completes activity. [place] assists only prior to or following the activity. 4-Supervision or Touching Assistance-helper provides verbal cues and/or touching/steadying and/or contact guard assistance as patient completes activity. Assistance may be provided throughout the activity or intermittently. 3-Partial/Moderate Assistance-helper does LESS THAN HALF the effort. [place] lifts, holds or supports trunk or limbs, but provides less than half the effort. 2-Substantial/Maximal Assistance-helper does MORE THAN HALF the effort. [place] lifts or holds trunk or limbs and provides more than half the effort. 2-Idsavdzlc-xybwrb does ALL the effort. Patient does none of the effort to complete the activity. Or, the assistance of 2 or more helpers is required for the patient to complete the activity. If activity was not attempted, code reason: 7-Patient Refused. 9-Not Applicable-not attempted and the patient did not perform the activity before the current illness, exacerbation or injury. 10-Not Attempted due to Environmental Limitations-(lack of equipment, weather restraints, etc.). 88-Not Attempted due to Medical Conditions or Safety Concerns. Oral Hygiene (QC): 5 (set up/clean up at tray table.) Other Treatment Pt seated in recliner, talked about how he feels like is progress is going. Pt reports he is hoping to go home this weekend. Pt agreed to OT Tx with focus on ADLs. OT set up ADL supplies on pt's tray table, he then was able to brush his teeth without assistance. Pt declined needing to use the restroom at this time stating he had just gone prior to OT tx. OT and pt discuss concerns about safe return home, pt states he feels like he will be successful and safe with ADLs once he is discharged. Pt reports all needs met at this time. Post OT tx, pt seated in recliner, call light in reach. Education OT Patient Education: Correct positioning, Energy conservation, Modified ADL techniques, Progress toward Goal/Update tx plan, Purpose of tx/functional activities, Safety issues Teaching Recipient: Patient Teaching Methods: Discussion Response to Teaching: Verbalize Understanding OT Mission Commander Goals Assisted Goals Time Frame: Mar 18, 2010 Eating (QC): 6 Oral Hygiene (QC): 6 Toileting Hygiene (QC): 6 Shower/Bathe Self (QC): 6 Upper Body Dressing (QC): 6 Lower Body Dressing (QC): 6 On/Off Footwear (QC): 6 1=Demonstrate adherence to instructed precautions during ADL tasks. 2=Patient will verbalize/demonstrate understanding of assistive devices/modifications for ADL. 3=Patient will improve strength/tolerance for activity to enable patient to perform ADL's. OT Education/Plan Problem List/Assessment Assessment: Decreased Activ Tolerance, Decreased UE Strength, Impaired I ADL's, Impaired Self-Care Skills Discharge Recommendations Plan/Recommendations: Continue POC Treatment Plan/Plan of Care Patient would benefit from OT for education, treatment and training to promote independence in ADL's, mobility, safety and/or upper extremity function for ADL's. Plan of Care: ADL Retraining, Functional Mobility, UE Funct Exercise/Act Treatment Duration: Mar 19, 2020 Frequency: 5 times per week Estimated Hrs Per Day: .25 hour per day Rehab Potential: Guarded Time/GCodes Start Time: 09:38 Stop Time: 09:50 Total Time Billed (hr/min): 12 Billed Treatment Time 1, ADL ASH ANTONY OT Mar 04, 2020 10:19
--- NOTE | 2020-03-04 11:37 | Progress Note - Surgery ---
Subjective Time Seen by a Provider: 11:31 Subjective/Events-last exam Pt seen and examined, states foot still hurts "like hell". No other complaints. Review of Systems General: No Chills, No Night Sweats Pulmonary: No Dyspnea, No Cough Objective Exam Vital Signs Date Time Temp Pulse Resp B/P (MAP) Pulse Ox O2 Delivery O2 Flow Rate FiO2 03/04/20 08:00 36.3 98 19 104/64 (77) 91 Nasal Cannula 3.00 03/04/20 06:33 92 Nasal Cannula 3.00 03/04/20 04:09 36.7 86 20 115/70 (85) 94 Nasal Cannula 3.00 03/04/20 02:36 94 Nasal Cannula 3.00 03/04/20 00:03 37.2 90 22 107/65 (79) 95 Nasal Cannula 3.00 03/03/20 22:50 93 Nasal Cannula 3.00 03/03/20 21:00 36.4 97 16 103/63 (76) 93 Nasal Cannula 4.00 03/03/20 20:25 Nasal Cannula 3.00 03/03/20 19:00 94 03/03/20 18:45 94 Nasal Cannula 3.00 03/03/20 16:21 36.6 96 16 101/64 (76) 95 Nasal Cannula 4.00 03/03/20 14:29 92 Nasal Cannula 3.00 03/03/20 14:11 36.4 94 92 32 03/03/20 12:48 36.4 92 20 104/65 (78) 96 Room Air 03/03/20 12:30 90 I & O 03/04/20 07:00 Intake Total 1810 ml Output Total 2075 ml Balance -265 ml Capillary Refill : NONELess Than 3 Seconds General Appearance: No Apparent Distress, Chronically ill HEENT: PERRL/EOMI Respiratory: Lungs Clear, No Respiratory Distress Extremity: Other (dressing taken down, incision with minimal serous drainage; erythema and swelling (looks improved compared to yesterday)) Neurologic/Psychiatric: Alert, Oriented x3 Results Lab Laboratory Tests 03/04/20 06:17: White Blood Count 13.4H, Red Blood Count 3.20L, Hemoglobin 9.8L, Hematocrit 32L, Mean Corpuscular Volume 99, Mean Corpuscular Hemoglobin 31, Mean Corpuscular Hemoglobin Concent 31L, Red Cell Distribution Width 15.6H, Platelet Count 699H, Mean Platelet Volume 9.0, Neutrophils (%) (Auto) 70, Lymphocytes (%) (Auto) 20, Monocytes (%) (Auto) 9, Eosinophils (%) (Auto) 1, Basophils (%) (Auto) 0, Neutrophils # (Auto) 9.4H, Lymphocytes # (Auto) 2.7, Monocytes # (Auto) 1.2H, Eosinophils # (Auto) 0.1, Basophils # (Auto) 0.0 Microbiology 02/27/20 Urine Culture - Final, Complete NO GROWTH 02/27/20 Blood Culture - Final, Complete No growth Assessment/Plan Assessment/Plan Assessment/Plan S/P Amputation - 1st and 2nd toe right foot Hx of Afib on Xarelto B/L infiltrates with hx of Pneumonia and COPD Foot looks good; cont work with PT and ambulate as tolerated. Pain control. Telfa and kerlix for dressing on foot. Clinical Quality Measures AMI/AHF: ASA po Prior to arrival: No DVT/VTE Risk/Contraindication: Risk Factor Score Per Nursin RFS Level Per Nursing on Admit: 4+=Very High CANDI MIJARES DO Mar 04, 2020 11:37
[2020-03-04] MEDS: ACETAMINOPHEN 325 MG TABLET PO PRN ×2 (11:45→18:00)
[2020-03-04 12:16] VITALS: BP 126/61
--- NOTE | 2020-03-04 12:35 | NUR ---
CM/SS follow up. The patient was in his room eating Doritos and salsa. He states that he is feeling pretty good today but does still have some pain in his foot. The physical therapist reported that he was able to walk 150 ft today. The patient plans to return home on Sunday. CM/SS contacted [place] [facility] home to inform them of planned discharge and resumption of care. They verbalized understanding and asked for pending discharge orders to admit him back to service on Sunday. CM/SS informed the patient physician. CM/SS will contact Amparo from [facility] to see if patient was discharged home with oxygen due to patient stating he had a machine at home for it but didn't know from where. CM/SS will continue to follow.
[2020-03-04 16:00] VITALS: BP 106/66
[2020-03-04] MEDS: RIVAROXABAN 20 MG TABLET (XARELTO) PO SCH (18:00)
[2020-03-04 19:28] VITALS: BP 101/64
[2020-03-05] VITALS: BP 111/74
[2020-03-05] MEDS: RT-ALBUTEROL/IPRATROPIUM 3 ML (DUONEB) VIAL INH SCH ×6 (02:50→21:35)
[2020-03-05 04:00] VITALS: BP 103/53
[2020-03-05] MEDS: morphine INJ 4 MG/ML 1 ML (VIAL/SYRINGE) IVP PRN ×5 (06:34→21:08)
[2020-03-05] MEDS: predniSONE 20 MG TAB PO SCH (06:34)
[2020-03-05 06:36] LABS: BASOPHILS % (AUTO) 0 % (0-10); EOSINOPHILS # (AUTO) 0.1 10^3/uL (0.0-0.3); EOSINOPHILS % (AUTO) 1 % (0-10); HEMATOCRIT 31 % (40-54); HEMOGLOBIN 9.5 G/DL (13.3-17.7); LYMPHOCYTES # (AUTO) 2.5 X 10^3 (1.0-4.0); LYMPHOCYTES % (AUTO) 22 % (12-44); MEAN CORPUSCULAR HEMOGLOBIN 30 PG (25-34); MEAN CORPUSCULAR HGB CONC 31 G/DL (32-36); MEAN CORPUSCULAR VOLUME 99 FL (80-99); MEAN PLATELET VOLUME 9.1 FL (7.4-10.4); MONOCYTES # (AUTO) 1.3 X 10^3 (0.0-1.0); MONOCYTES % (AUTO) 11 % (0-12); NEUTROPHILS # (AUTO) 7.5 X 10^3 (1.8-7.8); NEUTROPHILS % (AUTO) 66 % (42-75); PLATELET COUNT 719 10^3/uL (130-400); RED CELL DISTRIBUTION WIDTH 15.4 % (10.0-14.5); WHITE BLOOD COUNT 11.4 10^3/uL (4.3-11.0)
[2020-03-05] MEDS: UMECLIDINIUM BROMIDE (INCRUSE ELLIPTA) 7'S IH SCH (06:42)
[2020-03-05] MEDS: ADVAIR HFA 115/21 MCG INHALER 8 GM IH SCH ×2 (06:42→18:01)
[2020-03-05 08:00] VITALS: BP 116/73
[2020-03-05] MEDS: DOCUSATE SODIUM 100 MG (COLACE) CAP PO SCH ×2 (08:53→21:09)
[2020-03-05] MEDS: SENNOSIDES 8.6 MG (SENOKOT) TAB PO SCH ×2 (08:54→21:09)
[2020-03-05] MEDS: DIGOXIN 0.25 MG (LANOXIN) TAB PO SCH (08:54)
[2020-03-05] MEDS: GABAPENTIN 300 MG (NEURONTIN) CAP PO SCH ×3 (08:54→21:09)
--- NOTE | 2020-03-05 09:10 | D/C HH Face to Face Order ---
D/C Face to Face Orders Instructions for Patient [facility], Patient Instructions/FollowUp: Please continue to take your medications as written. Please follow up with your primary care doctor within the next week to follow up this hospital stay. Physician to follow Patient: Dr Davenport Discharge Diet for Home: Cardiac Diet Patient Data-Allergies,Ht & Wt Patient Allergies: Coded Allergies: No Known Drug Allergies (Verified , 07/11/09) Home Health Need/Face to Face Date of Face to Face: Mar 05, 2020 Clinical Findings: Generalized weakness and fatigue I have seen Pt ezbi-ms-nzyu: Yes Discharged To: Home Diagnosis/Conditions: PAD, s/p toe amputation, COPD Patient is Homebound due to: [place] fall risk due to instabilty, Pain w/ambulation Homebound Status Due to the above stated illness, injury or surgical procedure (medical condition or diagnosis) and associated clinical findings, the patient is homebound because of his/her inability to leave home except with aid of a supportive device and/or person AND leaving the home requires a considerable and taxing effort or is medically contraindicated. Pt req the following assistanc: Aid of another person, Walker Home Health Nursing Orders Home Health Services Order: Nursing Services, Waste Removalist-Evaluate & Treat, Physical Therapy-Evaluate & Treat Home Health Infusion Therapy Line Start Date: Mar 01, 2020 Therapy Orders Therapy Orders: OT (must have SN or PT order), Physical Therapy Therapy Specific Orders: Eval assistive deivces, Teach enviro modifications/safety, Gait training, Increase strength/endurance Certify Stmt I certify that this patient is under my care and that I, a nurse practitioner or a physician; a store assistant working with me, had a face to face encounter that - meets the physician face to face encounter requirements with this patient as dated. BLANE JAIN MD Mar 05, 2020 09:07
--- NOTE | 2020-03-05 09:58 | Progress Note - Surgery ---
Subjective Time Seen by a Provider: 09:05 Subjective/Events-last exam Pt seen and examined, states he is walking and ready to go home tomorrow. Review of Systems General: No Chills, No Night Sweats Pulmonary: No Dyspnea, No Cough Cardiovascular: No: Chest Pain, Palpitations Objective Exam Vital Signs Date Time Temp Pulse Resp B/P (MAP) Pulse Ox O2 Delivery O2 Flow Rate FiO2 03/05/20 06:42 90 Nasal Cannula 3.00 03/05/20 04:00 36.9 94 22 103/53 (70) 92 Nasal Cannula 3.00 03/05/20 02:51 96 Nasal Cannula 3.00 03/05/20 00:00 37.1 92 22 111/74 (86) 96 Nasal Cannula 3.00 03/04/20 21:00 Nasal Cannula 3.00 03/04/20 20:59 95 Nasal Cannula 3.00 03/04/20 19:28 36.5 94 20 101/64 (76) 92 Nasal Cannula 3.00 03/04/20 16:00 37.0 95 22 106/66 (79) 94 Nasal Cannula 3.00 03/04/20 14:12 94 Nasal Cannula 3.00 03/04/20 12:16 37.1 82 19 126/61 (82) 92 Nasal Cannula 3.00 I & O 03/05/20 07:00 Intake Total 2580 ml Output Total 2100 ml Balance 480 ml Capillary Refill : NONELess Than 3 Seconds General Appearance: No Apparent Distress, Chronically ill HEENT: PERRL/EOMI Respiratory: Lungs Clear, No Respiratory Distress Extremity: Other (dressing on foot, will leave alone today) Neurologic/Psychiatric: Alert, Oriented x3 Results Lab Laboratory Tests 03/05/20 05:26: White Blood Count 11.4H, Red Blood Count 3.13L, Hemoglobin 9.5L, Hematocrit 31L, Mean Corpuscular Volume 99, Mean Corpuscular Hemoglobin 30, Mean Corpuscular Hemoglobin Concent 31L, Red Cell Distribution Width 15.4H, Platelet Count 719H, Mean Platelet Volume 9.1, Neutrophils (%) (Auto) 66, Lymphocytes (%) (Auto) 22, Monocytes (%) (Auto) 11, Eosinophils (%) (Auto) 1, Basophils (%) (Auto) 0, Neutrophils # (Auto) 7.5, Lymphocytes # (Auto) 2.5, Monocytes # (Auto) 1.3H, Eos inophils # (Auto) 0.1, Basophils # (Auto) 0.0 Microbiology 02/27/20 Urine Culture - Final, Complete NO GROWTH 02/27/20 Blood Culture - Final, Complete No growth Assessment/Plan Assessment/Plan Assessment/Plan S/P Amputation - 1st and 2nd toe right foot Hx of Afib on Xarelto B/L infiltrates with hx of Pneumonia and COPD Foot looks good; cont work with PT and ambulate as tolerated. Pain control. Telfa and kerlix for dressing on foot. Clinical Quality Measures AMI/AHF: ASA po Prior to arrival: No DVT/VTE Risk/Contraindication: Risk Factor Score Per Nursin RFS Level Per Nursing on Admit: 4+=Very High CANDI MIJARES DO Mar 05, 2020 09:58
--- NOTE | 2020-03-05 10:19 | Progress Note - Hospitalist ---
Subjective HPI/CC On Admission Date Seen by Provider: Mar 05, 2020 Time Seen by Provider: 10:14 Moshe Soto is a 59-year-old male with past medical history of hypertension, atrial fibrillation on Xarelto, peripheral arterial disease, COPD, anemia, malnutrition, possible lung mass, recurrent pneumonias, who presented with malaise. He reports an overall unwell feeling. He reports having chest pain which is severe. He reports the pain radiates to his right arm. He is also feeling short of breath. He is also feeling anxious. He denies any nausea or vomiting. He reports pain in his bilateral feet. Several toes on his right foot are black but he is unsure of how long they have been this way. He also reports fevers, cough, and sore throat. Subjective/Events-last exam Pt reports doing well. Has already been up and ambulating with therapy and doing well. ready for discharge tomorrow. Objective Exam Vital Signs Vital Signs Date Time Temp Pulse Resp B/P (MAP) Pulse Ox O2 Delivery O2 Flow Rate FiO2 03/05/20 06:42 90 Nasal Cannula 3.00 03/05/20 04:00 36.9 94 22 103/53 (70) 03/03/20 14:11 32 Capillary Refill : NONELess Than 3 Seconds General Appearance: No Apparent Distress, WD/WN Respiratory: Lungs Clear, No Respiratory Distress Cardiovascular: Regular Rate, Rhythm, No Murmur Extremity: No Calf Tenderness, No Pedal Edema Neurologic/Psychiatric: Alert, Oriented x3 Results/Procedures Lab Laboratory Tests 03/05/20 05:26 Patient resulted labs reviewed. Imaging: Reviewed Imaging Report Assessment/Plan Assessment and Plan Assess & Plan/Chief Complaint Dry gangrene of the right foot Gen. surgery consulted, appreciate assistance s/p amputation Pain regimen ordered - Continue work with PT- will likely be able to DC home with HH tomorrow Musculoskeletal chest pain Cardiology consulted, appreciate assistance Troponins remained normal CT negative for PE Continue pain regimen - Cardiac cath during last visit in January was clean Atelectasis COPD with acute exacerbation Possible lung mass Chest x-ray with worsening right lower lobe pneumonia/atelectasis Afebrile, no leukocytosis Procalcitonin normal 2 COVID negative Continue steroids MAT protocol Pulmonology consulted, appreciate assistance - Discussed option for bronchoscopy on 03/[address] Eugene, will plan on outpatient follow up CT in 8 weeks instead HTN AFib Continue home meds - Continue anticoagulation Anemia Hemoglobin stable, continue to monitor DVT prophylaxis: Xarelto for A-fib Diagnosis/Problems Diagnosis/Problems (1) Dry gangrene Status: Acute (2) Acute on chronic respiratory failure with hypoxia Status: Acute (3) HTN (hypertension) Status: Chronic (4) Paroxysmal atrial fibrillation Status: Chronic (5) Severe protein-calorie malnutrition Status: Acute (6) Debility Status: Acute (7) Iron deficiency anemia Status: Chronic Clinical Quality Measures AMI/AHF: ASA po Prior to arrival: No DVT/VTE Risk/Contraindication: Risk Factor Score Per Nursin RFS Level Per Nursing on Admit: 4+=Very High BLANE JAIN MD Mar 05, 2020 10:19
--- NOTE | 2020-03-05 10:22 | Physical Therapy Daily Note ---
PT Daily Note-Current Subjective Patient is excited to return to home tomorrow. Agrees to PT. Pain Numeric Pain Scale: 5-Moderate Pain Location: Right Location Body Site: Toe Pain Description: Stabbing, Throbbing Comment: med issued Mental Status Patient Orientation: Normal For Age Attachments: Oxygen (3L) Transfers SCALE: Activities may be completed with or without assistive devices. 0-Sjhbznqxkm-xcgnear completes the activity by him/herself with no assistance from a helper. 5-Set-up or Clean-up Assistance-helper sets up or cleans up; patient completes activity. [place] assists only prior to or following the activity. 4-Supervision or Touching Assistance-helper provides verbal cues and/or touching/steadying and/or contact guard assistance as patient completes activity. Assistance may be provided throughout the activity or intermittently. 3-Partial/Moderate Assistance-helper does LESS THAN HALF the effort. [place] lifts, holds or supports trunk or limbs, but provides less than half the effort. 2-Substantial/Maximal Assistance-helper does MORE THAN HALF the effort. [place] lifts or holds trunk or limbs and provides more than half the effort. 7-Justcirme-vamvbi does ALL the effort. Patient does none of the effort to complete the activity. Or, the assistance of 2 or more helpers is required for the patient to complete the activity. If activity was not attempted, code reason: 7-Patient Refused. 9-Not Applicable-not attempted and the patient did not perform the activity before the current illness, exacerbation or injury. 10-Not Attempted due to Environmental Limitations-(lack of equipment, weather restraints, etc.). 88-Not Attempted due to Medical Conditions or Safety Concerns. Roll Left & Right (QC): 6 Sit to Lying (QC): 6 Lying to Sitting/Side of Bed(Q: 6 Sit to Stand (QC): 6 Chair/Msi-cm-Oalcc Xfer(QC): 6 Weight Bearing Right Lower Extremity: Right Weight Bearing/Tolerated Left Lower Extremity: Left Weight Bearing/Tolerated Gait Training Does the Patient Walk?: Yes Distance: 200' Walk 10 feet (QC): 6 Walk 50 ft with 2 Turns(QC): 6 Walk 150 ft (QC): 6 Gait Assistive Device: FWW safe and functional with no deviation Assessment Patient independently dons post op shoe without difficulty. Patient is up in room ad larry. PT to dismiss patient from services at this time due to patient currently at [facility] safely. PT Senior Living Goals Senior Living Goals PT Senior Living Goals Time Frame: Mar 13, 2020 Roll Left & Right (QC): 6 Sit to Lying (QC): 6 Lying-Sitting on Side/Bed(QC): 6 Sit to Stand (QC): 6 Chair/Unt-uv-Ppwke Xfer(QC): 6 Toilet Transfer (QC): 6 Does the Patient Walk: Yes Walk 10 feet (QC): 6 Walk 50ft with 2 Turns (QC): 6 PT Plan Treatment/Plan Treatment Plan: Continue Plan of Care Treatment Plan: Bed Mobility, Education, Functional Activity [place], Functional Strength, Gait, Safety, Therapeutic Exercise, Transfers Treatment Duration: Mar 13, 2020 Frequency: 6 times per week Estimated Hrs Per Day: .25 hour per day Patient and/or Family Agrees t: Yes Time/GCodes Time In: 936 Time Out: 947 Total Billed Treatment Time: 11 Total Billed Treatment 1 visit FA 11 min IDRIS ONEIL PT Mar 05, 2020 10:22
--- NOTE | 2020-03-05 10:46 | Occupational Ther Daily Note ---
OT Current Status-Daily Note Subjective Pt alert, lying in bed. Pt talking about his phantom pain in the R foot (toe). Pt agrees to therapy. No c/o pain at this time. Pt also talking about how his balance is off going foward/backward Mental Status/Objective Patient Orientation: Person, Place, Time, Situation Attachments: Oxygen ADL-Treatment Therapy Code Descriptions/Definitions Functional Collin Measure: 0=Not Assessed/NA 4=Minimal Assistance 1=Total Assistance 5=Supervision or Setup 2=Maximal Assistance 6=Modified Collin 3=Moderate Assistance 7=Complete IndependenceSCALE: Activities may be completed with or without assistive devices. 9-Gwexxxwxtt-hxihsop completes the activity by him/herself with no assistance from a helper. 5-Set-up or Clean-up Assistance-helper sets up or cleans up; patient completes activity. Fossil assists only prior to or following the activity. 4-Supervision or Touching Assistance-helper provides verbal cues and/or touching/steadying and/or contact guard assistance as patient completes activity. Assistance may be provided throughout the activity or intermittently. 3-Partial/Moderate Assistance-helper does LESS THAN HALF the effort. Fossil lifts, holds or supports trunk or limbs, but provides less than half the effort. 2-Substantial/Maximal Assistance-helper does MORE THAN HALF the effort. Fossil lifts or holds trunk or limbs and provides more than half the effort. 9-Umgpurwci-sheola does ALL the effort. Patient does none of the effort to complete the activity. Or, the assistance of 2 or more helpers is required for the patient to complete the activity. If activity was not attempted, code reason: 7-Patient Refused. 9-Not Applicable-not attempted and the patient did not perform the activity before the current illness, exacerbation or injury. 10-Not Attempted due to Environmental Limitations-(lack of equipment, weather restraints, etc.). 88-Not Attempted due to Medical Conditions or Safety Concerns. Other Treatment Pt given HEP for UE medium resistance theraband exercises. Skilled instructions given for technique and instructions. Pt able to complete 6 exercises 1 set 10 reps with lengthy recovery breaks between each set. Pt demonstrated understanding though required verbal and physical cues for correct technique. After session, pt sitting up in bed with call light/phone in reach. All needs met in room. OT Correction Goals Pocketbook Maker Goals Time Frame: Mar 18, 2010 Eating (QC): 6 Oral Hygiene (QC): 6 Toileting Hygiene (QC): 6 Shower/Bathe Self (QC): 6 Upper Body Dressing (QC): 6 Lower Body Dressing (QC): 6 On/Off Footwear (QC): 6 1=Demonstrate adherence to instructed precautions during ADL tasks. 2=Patient will verbalize/demonstrate understanding of assistive devices/mod ifications for ADL. 3=Patient will improve strength/tolerance for activity to enable patient to perform ADL's. OT Education/Plan Problem List/Assessment Assessment: Decreased Activ Tolerance, Decreased UE Strength Discharge Recommendations Plan/Recommendations: Continue POC Treatment Plan/Plan of Care Patient would benefit from OT for education, treatment and training to promote independence in ADL's, mobility, safety and/or upper extremity function for ADL's. Plan of Care: ADL Retraining, Functional Mobility, UE Funct Exercise/Act Treatment Duration: Mar 19, 2020 Frequency: 5 times per week Estimated Hrs Per Day: .25 hour per day Rehab Potential: Guarded Time/GCodes Start Time: 10:30 Stop Time: 10:45 Total Time Billed (hr/min): 15 Billed Treatment Time 1 visit-EX 1 (15 min) CANDI MITCHELL Mar 05, 2020 10:45
--- NOTE | 2020-03-05 10:58 | Cardiology Progress Note ---
Subjective Date Seen by Provider: Mar 05, 2020 Time Seen by Provider: 10:58 Subjective/Events-last exam Patient is laying down in bed, feeling better. Reporting improvement Review of Systems General: No Chills, No Night Sweats, No Fatigue, No Malaise, No Appetite, No Other HEENT: No Head Aches, No Visual Changes, No Eye Pain, No Ear Pain, No Dysphasia, No Sinus Congestion, No Post Nasal Drip, No Sore Throat, No Other Pulmonary: No Dyspnea, No Cough, No Pleuritic Chest Pain, No Other Cardiovascular: No: Chest Pain, Palpitations, Orthopnea, Paroxysmal Noc. Dyspnea, Edema, Lt Headedness, Other Objective-Cardiology Exam Last Set of Vital Signs Vital Signs 03/03/20 03/05/20 14:11 08:00 Temp 37.3 Pulse 97 Resp 18 B/P (MAP) 116/73 (87) Pulse Ox 95 O2 Delivery High Flow N/C O2 Flow Rate 3.00 FiO2 32 Capillary Refill : NONELess Than 3 Seconds I&O Intake and Output 03/05/20 00:00 Intake Total 1930 ml Output Total 1800 ml Balance 130 ml Intake Oral 1930 ml Output Urine Total 1800 ml # Voids 2 General: Alert, Oriented X3, Cooperative HEENT: Atraumatic, PERRLA Neck: Supple, No JVD, No Thyromegaly Lungs: Clear to Auscultation, Normal Air Movement Heart: Regular Rate, Normal S1, Normal S2, No Murmurs Abdomen: Normal Bowel Sounds, Soft, No Tenderness, No Hepatosplenomegaly, No Masses Extremities: No Clubbing, No Edema Skin: No Rashes, Other (C/D/I dressing to right foot. ) Neuro: Normal Speech, Cranial Nerves 3-12 NL Psych/Mental Status: Mental Status NL, Mood NL Results Lab Laboratory Tests 03/05/20 05:26 A/P-Cardiology Admission Diagnosis Pneumonia, resolving Chest pain PVD Right foot gangrene Assessment/Plan Chest pain, nonspecific etiology, cardiac catheterization carried out on January 30, 2020 showing mild to moderate coronary artery disease nonobstructive disease. Chest pain is unlikely to be cardiac, no further episodes of chest pain were reported Anemia, managed by primary care team, H&H is monitored, EGD done on last admission with Dr. Wright reported gastritis and hiatal hernia. Managed by primary care team PVD, Status post acute limb ischemia due to embolization probably from atrial fibrillation. Angiogram was carried out showing total occlusion with thrombus in the distal SFA, received thrombolytics and reestablished flow. Maintained on Xarelto at this time. 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 Wright, recovering well, no complaint PAF with RVR on 01/24/20, continue to monitor. Maintained on Xarelto Left upper lobe mass, Dr. Eugene following, planning for repeat CT as outpatient History of head trauma in or around 2017, was in coma for about a month. Has been on disability Tobaccoism, stopped smoking in December 2019, advised to continue to refrain Clinical Quality Measures AMI/AHF: ASA po Prior to arrival: No DVT/VTE Risk/Contraindication: Risk Factor Score Per Nursin RFS Level Per Nursing on Admit: 4+=Very High THERESA BELLAMY MD Mar 05, 2020 10:58 am
[2020-03-05 12:00] VITALS: BP 108/63
--- NOTE | 2020-03-05 14:23 | NUR ---
CM/SS finalized discharge planning. Plan: The patient will return home with Home Health and a portable oxygen tank. Home Health: CM/SS contacted Sharon from [place] [facility] to inform her that pending discharge and home health orders were in. She verbalized understanding and they will resume care on Sunday. DME: The patients DME is [facility]. He has portable that is being delivered to the hospital for discharge.
[2020-03-05 16:00] VITALS: BP 102/64
[2020-03-05] MEDS: RIVAROXABAN 20 MG TABLET (XARELTO) PO SCH (17:40)
[2020-03-05 19:50] VITALS: BP 115/71
[2020-03-06 00:23] VITALS: BP 114/73
[2020-03-06] MEDS: RT-ALBUTEROL/IPRATROPIUM 3 ML (DUONEB) VIAL INH SCH ×2 (02:14→10:15)
[2020-03-06 04:00] VITALS: BP 108/72
[2020-03-06 06:05] LABS: BASOPHILS % (AUTO) 0 % (0-10); EOSINOPHILS # (AUTO) 0.2 10^3/uL (0.0-0.3); EOSINOPHILS % (AUTO) 1 % (0-10); HEMATOCRIT 34 % (40-54); HEMOGLOBIN 10.1 G/DL (13.3-17.7); LYMPHOCYTES # (AUTO) 3.1 X 10^3 (1.0-4.0); LYMPHOCYTES % (AUTO) 24 % (12-44); MEAN CORPUSCULAR HEMOGLOBIN 30 PG (25-34); MEAN CORPUSCULAR HGB CONC 30 G/DL (32-36); MEAN CORPUSCULAR VOLUME 100 FL (80-99); MEAN PLATELET VOLUME 8.7 FL (7.4-10.4); MONOCYTES # (AUTO) 1.4 X 10^3 (0.0-1.0); MONOCYTES % (AUTO) 11 % (0-12); NEUTROPHILS # (AUTO) 8.2 X 10^3 (1.8-7.8); NEUTROPHILS % (AUTO) 64 % (42-75); PLATELET COUNT 696 10^3/uL (130-400); RED CELL DISTRIBUTION WIDTH 15.6 % (10.0-14.5); WHITE BLOOD COUNT 12.9 10^3/uL (4.3-11.0)
[2020-03-06] MEDS: predniSONE 20 MG TAB PO SCH (06:26)
[2020-03-06 08:00] VITALS: BP 106/74
[2020-03-06] MEDS: DIGOXIN 0.25 MG (LANOXIN) TAB PO SCH (09:00)
[2020-03-06] MEDS: GABAPENTIN 300 MG (NEURONTIN) CAP PO SCH (09:00)
[2020-03-06] MEDS: DOCUSATE SODIUM 100 MG (COLACE) CAP PO SCH (09:01)
[2020-03-06] MEDS: SENNOSIDES 8.6 MG (SENOKOT) TAB PO SCH (09:01)
[2020-03-06] MEDS: ADVAIR HFA 115/21 MCG INHALER 8 GM IH SCH (10:15)
[2020-03-06] MEDS: UMECLIDINIUM BROMIDE (INCRUSE ELLIPTA) 7'S IH SCH (10:16)
--- NOTE | 2020-03-06 10:58 | Discharge Summary ---
Diagnosis/Chief Complaint Date of Admission Feb 27, 2020 at 15:39 Date of Discharge Discharge Date: Mar 06, 2020 Admission Diagnosis Chest pain Primary Care No,Local Physician Discharge Diagnosis (1) Dry gangrene Status: Acute (2) Acute on chronic respiratory failure with hypoxia Status: Acute (3) HTN (hypertension) Status: Chronic (4) Paroxysmal atrial fibrillation Status: Chronic (5) Severe protein-calorie malnutrition Status: Acute (6) Debility Status: Acute (7) Iron deficiency anemia Status: Chronic Discharge Summary Discharge Physical Exam Allergies: Coded Allergies: No Known Drug Allergies (Verified , 07/11/09) Vitals & I&Os Vital Signs Date Time Temp Pulse Resp B/P (MAP) Pulse Ox O2 Delivery O2 Flow Rate FiO2 03/06/20 10:16 94 Nasal Cannula 3.00 03/06/20 08:00 36.9 86 20 106/74 (85) 03/03/20 14:11 32 Hospital Course Labs (last 24 hrs) Laboratory Tests 03/06/20 05:37: White Blood Count 12.9H, Red Blood Count 3.36L, Hemoglobin 10.1L, Hematocrit 34L , Mean Corpuscular Volume 100H, Mean Corpuscular Hemoglobin 30, Mean Corpuscular Hemoglobin Concent 30L, Red Cell Distribution Width 15.6H, Platelet Count 696H, Mean Platelet Volume 8.7, Neutrophils (%) (Auto) 64, Lymphocytes (%) (Auto) 24, Monocytes (%) (Auto) 11, Eosinophils (%) (Auto) 1, Basophils (%) (Auto) 0, Neutrophils # (Auto) 8.2H, Lymphocytes # (Auto) 3.1, Monocytes # (Auto) 1.4H, Eosinophils # (Auto) 0.2, Basophils # (Auto) 0.0 Microbiology 02/27/20 Urine Culture - Final, Complete NO GROWTH 02/27/20 Blood Culture - Final, Complete No growth Patient resulted labs reviewed. Pending Labs Laboratory Tests 03/06/20 05:37: White Blood Count 12.9, Red Blood Count 3.36, Hemoglobin 10.1, Hematocrit 34, Mean Corpuscular Volume 100, Mean Corpuscular Hemoglobin 30, Mean Corpuscular Hemoglobin Concent 30, Red Cell Distribution Width 15.6, Platelet Count 696, Mean Platelet Volume 8.7, Neutrophils (%) (Auto) 64, Lymphocytes (%) (Auto) 24, Monocytes (%) (Auto) 11, Eosinophils (%) (Auto) 1, Basophils (%) (Auto) 0, Neutrophils # (Auto) 8.2, Lymphocytes # (Auto) 3.1, Monocytes # (Auto) 1.4, Eosinophils # (Auto) 0.2, Basophils # (Auto) 0.0 Imaging: Reviewed Imaging Report Discharge Home Medications: Active Scripts Active Folic Acid 1 Mg Tablet 1 Mg PO DAILY 30 Days Pantoprazole Sodium 40 Mg Tablet.dr 40 Mg PO DAILY 30 Days Mucinex (Guaifenesin) 600 Mg Tab.er.12h 600 Mg PO BID 30 Days Advair Hfa 115-21 Mcg Inhaler (Fluticasone/Salmeterol) 12 Gm Hfa.aer.ad 0 Puff IH RTBID 30 Days Lactulose 20 Gm/30 Ml Solution 10 Gm PO BID PRN 30 Days Gabapentin 100 Mg Capsule 200 Mg PO TID 30 Days Oxycodone IR (Oxycodone HCl) 5 Mg Tablet 5 Mg PO Q4HR PRN Diltiazem 24Hr ER (Diltiazem HCl) 300 Mg Cap.er.24h 300 Mg PO DAILY 30 Days Digox (Digoxin) 250 Mcg Tablet 0.25 Mg PO DAILY 30 Days Xarelto Tablet (Rivaroxaban) 20 Mg Tablet 20 Mg PO DAILY@1700 180 Days Ferrous Sulfate 325 Mg Tablet 325 Mg PO BID WITH MEALS 30 Days Iprat-Albut 0.5-3(2.5) mg/3 ml (Ipratropium/Albuterol Sulfate) 3 Ml Ampul.neb 3 Ml INH RTQ4HR 30 Days Reported Multivitamin 1 Each Tablet 1 Each PO DAILY Instructions to patient/family Please see electronic discharge instructions given to patient. Clinical Quality Measures AMI/AHF: ASA po Prior to arrival: No DVT/VTE Risk/Contraindication: Risk Factor Score Per Nursin RFS Level Per Nursing on Admit: 4+=Very High BLANE JAIN MD Mar 06, 2020 10:58
--- NOTE | 2020-03-06 11:19 | Cardiology Progress Note ---
Subjective Date Seen by Provider: Mar 06, 2020 Time Seen by Provider: 11:19 Subjective/Events-last exam Patient is laying down in bed. Feeling better. Still having phantom pain. Review of Systems General: No Chills, No Night Sweats, No Fatigue, No Malaise, No Appetite, No Other HEENT: No Head Aches, No Visual Changes, No Eye Pain, No Ear Pain, No Dysphasia, No Sinus Congestion, No Post Nasal Drip, No Sore Throat, No Other Pulmonary: No Dyspnea, No Cough, No Pleuritic Chest Pain, No Other Cardiovascular: No: Chest Pain, Palpitations, Orthopnea, Paroxysmal Noc. Dyspnea, Edema, Lt Headedness, Other Objective-Cardiology Exam Last Set of Vital Signs Vital Signs 03/03/20 03/06/20 03/06/20 14:11 08:00 10:16 Temp 36.9 Pulse 86 Resp 20 B/P (MAP) 106/74 (85) Pulse Ox 94 O2 Delivery Nasal Cannula O2 Flow Rate 3.00 FiO2 32 Capillary Refill : NONELess Than 3 Seconds I&O Intake and Output 03/06/20 00:00 Intake Total 1970 ml Output Total 1100 ml Balance 870 ml Intake Oral 1970 ml Output Urine Total 1100 ml # Voids 3 # Bowel Movements 3 General: Alert, Oriented X3, Cooperative HEENT: Atraumatic, PERRLA Neck: Supple, No JVD, No Thyromegaly Lungs: Clear to Auscultation, Normal Air Movement Heart: Regular Rate, Normal S1, Normal S2, No Murmurs Abdomen: Normal Bowel Sounds, Soft, No Tenderness, No Hepatosplenomegaly, No Masses Extremities: No Clubbing, No Edema Skin: No Rashes, Other (C/D/I dressing to right foot. ) Neuro: Normal Speech, Cranial Nerves 3-12 NL Psych/Mental Status: Mental Status NL, Mood NL Results Lab Laboratory Tests 03/06/20 05:37 A/P-Cardiology Admission Diagnosis Pneumonia, resolving Chest pain PVD Right foot gangrene Assessment/Plan Chest pain, nonspecific etiology, cardiac catheterization carried out on January 30, 2020 showing mild to moderate coronary artery disease nonobstructive disease. Chest pain is unlikely to be cardiac, no further episodes of chest pain were reported Anemia, managed by primary care team, H&H is monitored, EGD done on last admission with Dr. Wright reported gastritis and hiatal hernia. Managed by primary care team PVD, Status post acute limb ischemia due to embolization probably from atrial fibrillation. Angiogram was carried out showing total occlusion with thrombus in the distal SFA, received thrombolytics and reestablished flow. Maintained on Xarelto at this time. 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 Wright, recovering well, no complaint PAF with RVR on 01/24/20, continue to monitor. Maintained on Xarelto Left upper lobe mass, Dr. Eugene following, planning for repeat CT as outpatient History of head trauma in or around 2017, was in coma for about a month. Has been on disability Tobaccoism, stopped smoking in December 2019, advised to continue to refrain Clinical Quality Measures AMI/AHF: ASA po Prior to arrival: No DVT/VTE Risk/Contraindication: Risk Factor Score Per Nursin RFS Level Per Nursing on Admit: 4+=Very High THERESA BELLAMY MD Mar 06, 2020 11:19
--- NOTE | 2020-03-06 11:40 | NUR ---
PT LEFT FLOOR WITH PCT AND BROTHER WITH HIS BELONGS IN [employer]AR [employer]AG AND HIS HOME 02 CAN[employer] THAT DME DELIVERED YESTERDAY. HE WAS INFORMED FROM THIS RN THAT HOME HEALTH WOULD BE BY TOMORROW PER THEIR CALL YESTERDAY. HE VERBALIZED UNDERSTANDING. IV TAKEN OUT OF RT FOREARM.
== END 2020-03-06 11:40 | disposition home health service (06) | DRG 255 ==
LOC: ER 13:48 → ICU 15:39 → 4TH 02-28 09:20
PROVIDERS: ADMIT Internal Medicine; ATTEND Internal Medicine
PROC: 0Y6R0Z0 Detachment at Right 2nd Toe, Complete, Open Approach (ICD-10-PCS; 2020-03-01)
PROC: 0Y6P0Z0 Detachment at Right 1st Toe, Complete, Open Approach (ICD-10-PCS; principal; 2020-03-01 13:12)
DX: I96 Gangrene, not elsewhere classified (principal); J18.9 Pneumonia, unspecified organism; E43 Unspecified severe protein-calorie malnutrition; J44.1 Chronic obstructive pulmonary disease with (acute) exacerbation; J44.0 Chronic obstructive pulmonary disease with (acute) lower respiratory infection; J98.11 Atelectasis; I73.9 Peripheral vascular disease, unspecified; R07.89 Other chest pain; I25.10 Atherosclerotic heart disease of native coronary artery without angina pectoris; R91.8 Other nonspecific abnormal finding of lung field; I10 Essential (primary) hypertension; I48.0 Paroxysmal atrial fibrillation; M54.9 Dorsalgia, unspecified; H93.19 Tinnitus, unspecified ear; H91.92 Unspecified hearing loss, left ear; J30.1 Allergic rhinitis due to pollen; D64.9 Anemia, unspecified; M79.2 Neuralgia and neuritis, unspecified; K44.9 Diaphragmatic hernia without obstruction or gangrene; K29.70 Gastritis, unspecified, without bleeding; Z87.820 Personal history of traumatic brain injury; Z99.81 Dependence on supplemental oxygen; Z79.01 Long term (current) use of anticoagulants; Z20.828 Contact with and (suspected) exposure to other viral communicable diseases; Z86.718 Personal history of other venous thrombosis and embolism; Z87.891 Personal history of nicotine dependence
CPT/HCPCS: 36415; 71045; 71275; 80053; 81000; 83605; 83615; 83880; 84145; 84484; 85025; 85379; 85610; 85652; 85730; 86141; 86769; 87040; 87088; 87635; 93005; 94640; 94760; 96361; 96365

== ENCOUNTER 2020-03-21 14:04 | Inpatient (IN) | payer MEDICARE ==
[~2020-03-21] VITALS: Ht 177.8 cm; Wt 62.5 kg
[~2020-03-21 14:04] MED LIST changes: +LIDOCAINE JELLY 2% 6 ML SYRINGE TOP ONE; +LIDOCAINE PF 1% 2 ML VIAL IJ ONE; +LIDOCAINE PF 2% 5 ML (XYLOCAINE) VIAL INJ ONE
--- OUTSIDE RECORDS SUMMARY | 2020-03-21 14:10 | XMS REPORT | Continuity of Care Document ---
Author Organization Unknown Address Unknown Phone Unavailable Allergies Active Description Code Type Severity Reaction Onset Reported/Identified Relationship to Patient Clinical Status Yes NO KNOWN DRUG ALLERGIES UNKNOWN UNKNOWN Yes No Known Drug Allergies [id number] Drug Allergy Mild N/A 07/11/2009 Medications Medication [...] 1 ALCOHOL DEPENDENCE, IN REMISSION 01/11/2020 MOJGAN ELDRDIGE W J15.9 UNSPECIFIED BACTERIAL PNEUMONIA 01/11/2020 MOJGAN [...] JAIN MD Ot E86. 0 DEHYDRATION 01/12/2020 BLAEN JAIN MD Ot E87. 6 HYPOKALEMIA 01/12/2020 [...] E86. 0 DEHYDRATION 01/12/2020 SUSY FRIED, BLANE Harirs Ot E87. 6 HYPOKALEMIA 01/12/2020 SUSY FRIED, [...] Ot J18. 9 PNEUMONIA, UNSPECIFIED ORGANISM 01/15/2020 BLNAE JAIN MD Ot J44. 0 CHR [...] 01 ACUTE RESPIRATORY FAILURE WITH HYPOXIA 01/17/2020 BLNAE JAIN MD Ot R64 CACHEXIA 01/17/2020 BLANE [...] OTHER NONSPECIFIC ABNORMAL FINDING OF [place]EV[place] 01/23/2020 BLNAE JAIN MD Ot A41. 9 SEPSIS, UNSPECIFIED [...] Ot I25. 10 ATHSCL HEART DISEASE OF [place] CORONARY 01/30/2020 THERESA BELLAMY MD Ot I48. [...] Ot I25. 10 ATHSCL HEART DISEASE OF [place] CORONARY 02/04/2020 THERESA BELLAMY MD Ot I48. [...] OBSTRUCTIVE PULMON DISEASE WITH (ACU 02/05/2020 BLANE JANI MD Ot J96. 11 CHRONIC RESPIRATORY FAILURE [...] J18. 9 PNEUMONIA, UNSPECIFIED ORGANISM 02/05/2020 BLANE JIAN MD Ot J44. 0 CHR OBSTRUCTIVE PULMON [...] Ot I25. 10 ATHSCL HEART DISEASE OF [place] CORONARY 02/12/2020 THERESA BELLAMY MD Ot I48. 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 9 ANEMIA, UNSPECIFIED 03/04/2020 CLAU DUONG MD Ot H91. 92 UNSPECIFIED HEARING LOSS, LEFT EAR 03/04/2020 CLAU DUONG MD Ot H93. 19 TINNITUS, UNSPECIFIED EAR 03/04/2020 CLAU DUONG MD Ot I10 ESSENTIAL (PRIMARY) HYPERTENSION 03/04/2020 CLAU DUONG MD Ot I48. 0 PAROXYSMAL ATRIAL FIBRILLATION 03/04/2020 CLAU DUONG MD Ot I73. 9 PERIPHERAL VASCULAR DISEASE, UNSPECIFIED 03/04/2020 CLAU DUONG MD Ot I96 GANGRENE, NOT ELSEWHERE CLASSIFIED 03/04/2020 CLAU DUONG MD Ot J18. 9 PNEUMONIA, UNSPECIFIED ORGANISM 03/04/2020 CLAU DUONG MD, Ot J30. 1 ALLERGIC RHINITIS DUE TO POLLEN 03/04/2020 CLAU DUONG MD Ot J44. 0 CHR OBSTRUCTIVE PULMON DISEASE WITH (ACU 03/04/2020 CLAU DUONG MD Ot J44. 1 CHRONIC OBSTRUCTIVE PULMONARY DISEASE W 03/04/2020 CLAU DUONG MD Ot J98. 11 ATELECTASIS 03/04/2020 CLAU DUONG MD Ot K29. 70 GASTRITIS, UNSPECIFIED, WITHOUT BLEEDING 03/04/2020 CLAU DUONG MD Ot K44. 9 DIAPHRAGMATIC HERNIA WITHOUT OBSTRUCTION 03/04/2020 CLAU DUONG MD Ot M54. 9 DORSALGIA, UNSPECIFIED 03/04/2020 CLAU DUONG MD Ot M79. 2 NEURALGIA AND NEURITIS, UNSPECIFIED 03/04/2020 CLAU DUONG MD Ot R07. 89 OTHER CHEST PAIN 03/04/2020 CLAU DUONG MD Ot R91. 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 81 DEPENDENCE ON SUPPLEMENTAL OXYGEN 03/05/2020 CLAU DUONG MD Ot D64. 9 ANEMIA, UNSPECIFIED 03/05/2020 CLAU DUONG MD Ot H91. 92 UNSPECIFIED HEARING LOSS, LEFT EAR 03/05/2020 CLAU DUONG MD, Ot H93. 19 TINNITUS, UNSPECIFIED EAR 03/05/2020 CLAU DUONG MD Ot I10 ESSENTIAL (PRIMARY) HYPERTENSION 03/05/2020 CLAU DUONG MD Ot I48. 0 PAROXYSMAL ATRIAL FIBRILLATION 03/05/2020 CLAU DUONG MD Ot I73. 9 PERIPHERAL VASCULAR DISEASE, UNSPECIFIED 03/05/2020 CLAU DUONG MD Ot I96 GANGRENE, NOT ELSEWHERE CLASSIFIED 03/05/2020 CLAU DUONG MD Ot J18. 9 PNEUMONIA, UNSPECIFIED ORGANISM 03/05/2020 CLAU DUONG MD Ot J30. 1 ALLERGIC RHINITIS DUE TO POLLEN 03/05/2020 CLAU DUONG MD Ot J44. 0 CHR OBSTRUCTIVE PULMON DISEASE WITH (ACU 03/05/2020 CLAU DUONG MD Ot J44. 1 CHRONIC OBSTRUCTIVE PULMONARY DISEASE W 03/05/2020 CLAU DUONG MD Ot J98. 11 ATELECTASIS 03/05/2020 CLAU DUONG MD Ot K29. 70 GASTRITIS, UNSPECIFIED, WITHOUT BLEEDING 03/05/2020 CLAU DUONG MD Ot K44. 9 DIAPHRAGMATIC HERNIA WITHOUT OBSTRUCTION 03/05/2020 CLAU DUONG MD Ot M54. 9 DORSALGIA, UNSPECIFIED 03/05/2020 CLAU DUONG MD Ot M79. 2 NEURALGIA AND NEURITIS, UNSPECIFIED 03/05/2020 CLAU DUONG MD Ot R07. 89 OTHER CHEST PAIN 03/05/2020 CLAU DUONG MD Ot R91. 8 OTHER NONSPECIFIC ABNORMAL FINDING OF [place] 03/05/2020 CLAU DUONG MD Ot Z20.828 CONTACT W AND EXPOSURE TO OTH VIRAL COMM 03/05/2020 CLAU DUONG MD Ot Z79. 01 ASSISTED (CURRENT) USE OF ANTICOAGULANT 03/05/2020 CLAU DUONG MD Ot Z86.718 PERSONAL HISTORY OF OTHER VENOUS THROMBO 03/05/2020 CLAU DUONG MD Ot Z87.820 PERSONAL HISTORY OF TRAUMATIC BRAIN INJU 03/05/2020 CLAU DUONG MD, Ot Z87.891 PERSONAL HISTORY OF NICOTINE DEPENDENCE 03/05/2020 CLAU DUONG MD Ot Z99. 81 DEPENDENCE ON SUPPLEMENTAL OXYGEN 03/06/2020 CLAU DUONG MD Ot D64. 9 ANEMIA, UNSPECIFIED 03/06/2020 CLAU DUONG MD, Ot H91. 92 UNSPECIFIED HEARING LOSS, LEFT EAR 03/06/2020 CLAU DUONG MD, Ot H93. 19 TINNITUS, UNSPECIFIED EAR 03/06/2020 CLAU DUONG MD Ot I10 ESSENTIAL (PRIMARY) HYPERTENSION 03/06/2020 CLAU DUONG MD Ot I48. 0 PAROXYSMAL ATRIAL FIBRILLATION 03/06/2020 CLAU DUONG MD Ot I73. 9 PERIPHERAL VASCULAR DISEASE, UNSPECIFIED 03/06/2020 CLAU DUONG MD Ot I96 GANGRENE, NOT ELSEWHERE CLASSIFIED 03/06/2020 CLAU DUONG MD Ot J18. 9 PNEUMONIA, UNSPECIFIED ORGANISM 03/06/2020 CLAU DUONG MD Ot J30. 1 ALLERGIC RHINITIS DUE TO POLLEN 03/06/2020 CLAU DUONG MD Ot J44. 0 CHR OBSTRUCTIVE PULMON DISEASE WITH (ACU 03/06/2020 CLAU DUONG MD Ot J44. 1 CHRONIC OBSTRUCTIVE PULMONARY DISEASE W 03/06/2020 CLAU DUONG MD Ot J98. 11 ATELECTASIS 03/06/2020 CLAU DUONG MD Ot K29. 70 GASTRITIS, UNSPECIFIED, WITHOUT BLEEDING 03/06/2020 CLAU DUONG MD Ot K44. 9 DIAPHRAGMATIC HERNIA WITHOUT OBSTRUCTION 03/06/2020 CLAU DUONG MD Ot M54. 9 DORSALGIA, UNSPECIFIED 03/06/2020 CLAU DUONG MD Ot M79. 2 NEURALGIA AND NEURITIS, UNSPECIFIED 03/06/2020 CLAU DUONG MD Ot R07. 89 OTHER CHEST PAIN 03/06/2020 CLAU DUONG MD Ot R91. 8 OTHER NONSPECIFIC ABNORMAL FINDING OF [place] 03/06/2020 CLAU DUONG MD Ot Z20.828 CONTACT W AND EXPOSURE TO OTH VIRAL COMM 03/06/2020 CLAU DUONG MD Ot Z79. 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 81 DEPENDENCE ON SUPPLEMENTAL OXYGEN 03/06/2020 CLAU DUONG MD Ot D64. 9 ANEMIA, UNSPECIFIED 03/06/2020 CLAU DUONG MD Ot E43 UNSPECIFIED SEVERE PROTEIN-CALORIE MALNU 03/06/2020 CLAU DUONG MD Ot H91. 92 UNSPECIFIED HEARING LOSS, LEFT EAR 03/06/2020 CLAU DUONG MD, Ot H93. 19 TINNITUS, UNSPECIFIED EAR 03/06/2020 CLAU DUONG MD Ot I10 ESSENTIAL (PRIMARY) HYPERTENSION 03/06/2020 CLAU DUONG MD Ot I25. 10 ATHSCL HEART DISEASE OF [place] CORONARY 03/06/2020 CALU DUONG MD Ot I48. 0 PAROXYSMAL ATRIAL FIBRILLATION 03/06/2020 CLAU DUONG MD Ot I73. 9 PERIPHERAL VASCULAR DISEASE, UNSPECIFIED 03/06/2020 CLAU DUONG MD Ot I96 GANGRENE, NOT ELSEWHERE CLASSIFIED 03/06/2020 CLAU DUONG MD Ot J18. 9 PNEUMONIA, UNSPECIFIED ORGANISM 03/06/2020 CLAU DUONG MD Ot J30. 1 ALLERGIC RHINITIS DUE TO POLLEN 03/06/2020 CLAU DUONG MD Ot J44. 0 CHR OBSTRUCTIVE PULMON DISEASE WITH (ACU 03/06/2020 CLAU DUONG MD Ot J44. 1 CHRONIC OBSTRUCTIVE PULMONARY DISEASE W 03/06/2020 CLAU DUONG MD Ot J98. 11 ATELECTASIS 03/06/2020 CLAU DUONG MD Ot K29. 70 GASTRITIS, UNSPECIFIED, WITHOUT BLEEDING 03/06/2020 CLAU DUONG MD Ot K44. 9 DIAPHRAGMATIC HERNIA WITHOUT OBSTRUCTION 03/06/2020 CLAU DUONG MD Ot M54. 9 DORSALGIA, UNSPECIFIED 03/06/2020 CLAU DUONG MD Ot M79. 2 NEURALGIA AND NEURITIS, UNSPECIFIED 03/06/2020 CLAU DUONG MD Ot R07. 89 OTHER CHEST PAIN 03/06/2020 CLAU DUONG MD Ot R91. 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 81 DEPENDENCE ON SUPPLEMENTAL OXYGEN Procedures Code Description Performed By Per formed On [id number] DI LATION OF RIGHT FEMORAL ARTERY, PERCUT 01/13/2020 [id number] DI LATION OF RIGHT POPLITEAL ARTERY, PERC 01/13/2020 [id number] IN TRODUCE OF OTH THROMBOLYTIC INTO PERIP 01/13/2020 [id number] FL UOROSCOPY OF AORTA, BI LE ART USING L 01/13/2020 [id number] FL UOROSCOPY OF R LOW EXTREM ART USING L 01/13/2020 [id number] IN SERTION OF ENDOTRACHEAL AIRWAY INTO TR 01/17/2020 [id number] RE SPIRATORY VENTILATION, 24- 96 CONSECUTI 01/17/2020 [id number] EX CISION OF ESOPHAGOGASTRIC JUNCTION, EN 02/04/2020 [id number] EX CISION OF STOMACH, ENDO, DIAGN 02/04/2020 [id number] EX CISION OF STOMACH, PYLORUS, ENDO, DIAG 02/04/2020 [id number] EX CISION OF DUODENUM, ENDO, DIAGN 02/04/2020 [id number] DE TACHMENT AT RIGHT 1ST TOE, COMPLETE, O 03/01/2020 [id number] DE TACHMENT AT RIGHT 2ND TOE, COMPLETE, O 03/01/2020 Results Test Result Range BNP - 01/11/20 [...] COVID19 - 01/11/20 13:25 COVID19 Sent to [facility], Results have been scanned Influenza [...] 01/12/20 07:45 PROCALCITONIN (PCT) 1.36 ng/mL <0.10 [id number] - 01/12/20 07:45 Prothrombin time (PT) in [...] pa bel - 01/15/20 05:50 WRISTBAND NUMBER [id number] NRG ABO+Rh group AP NRG Blood group [...] Whole blood basic metabolic panel - 05/0 11/06 03:13 Serum or plasma sodium measurement [...] OF GROWTH Rare NRG Bacterial sputum culture [id number] NRG Arterial blood gas measurement - 0 [...] Automated erythrocyte mean corpuscular volume 96 [ [facility]] 80-99 Automated erythrocyte mean corpuscular h emoglobin [...] g/dL 3.2-4.5 CALCIUM CORRECTED 9.9 mg/dL 8.5-10.1 [id number] - 02/16/20 06:15 [id number] 0.56 ng/mL 0.80-2.00 PROCALCITONIN (PCT) - 02/16/20 [...] protein measurement (mass/v olume) 3.81 mg/dL 0.00-0.50 COVID-19 IgG Only SO - 02/27/20 14:00 Coronavirus Ab [Units/volume] in Serum Negative Negative Bacterial blood culture - 02/27/20 14:00 Bacterial blood culture NG NRG Bacterial blood culture - 02/27/20 14:10 Bacterial blood culture NG NRG Coronavirus SARS-CoV-2 SO 2018 - 0 14:35 Coronavirus Ab [Units/volume] in Serum Negative Negative Complete urinalysis with reflex to cultu re [...] ligh t microscopy FEW MYA URATES NRG Bacterial urine culture - 02/27/20 15:15 Bacterial urine culture NG NRG Serum or plasma troponin i.cardiac measu rement (mass/volume) - 02/27/20 20:50 Serum or plasma troponin i.cardiac measurement (mass/v olume) < ng/mL <0.028 Comprehensive metabolic panel - 02/28/20 03:15 Serum or plasma sodium measurement (moles/volume) 142 mmol/L 135-145 Serum or plasma potassium measurement (moles/volume) 4.1 mmol/L 3.6-5.0 Serum or plasma chloride measurement (moles/volume) 107 mmol/L 98-107 Carbon dioxide 26 mmol/L 21-32 Serum or plasma anion gap determination (moles/volume) 9 mmol/L 5-14 Serum or plasma urea nitrogen measurement (mass/volume ) 10 mg/dL 7-18 Serum or plasma creatinine measurement (mass/volume) 0.60 mg/dL 0.60-1.30 Serum or plasma urea nitrogen/creatinine mass ratio 17 NRG Serum or plasma creatinine measurement w ith calculation of estimated glomerular filtration rate > NRG Serum or plasma glucose measurement (mass/volume) 100 mg/dL 70-105 Serum or plasma calcium measurement (mass/volume) 9.0 mg/dL 8.5-10.1 Serum or plasma total bilirubin measurement (mass/volu me) 0.2 mg/dL 0.1-1.0 Serum or plasma alkaline phosphatase mary surement (enzymatic activity/volume) 78 U/L 40-136 Serum or plasma aspartate aminotransfera se measurement (enzymatic activity/volume) 24 U/L 5-34 Serum or plasma alanine aminotransferase measurement (enzymatic activity/volume) 16 U/L 0-55 Serum or plasma protein measurement (mass/volume) 6.5 g/dL 6.4-8.2 Serum or plasma albumin measurement (mass/volume) 2.8 g/dL 3.2-4.5 CALCIUM CORRECTED 10.0 mg/dL 8.5-10.1 Complete blood count (CBC) with automate d white blood cell (WBC) differential - 02/28/20 03:15 Blood leukocytes automated count (number/volume) 9.1 10*3/uL 4.3-11.0 Blood erythrocytes automated count (number/volume) 3.18 10*6/uL 4.35-5.85 Venous blood hemoglobin measurement (mass/volume) 9.7 g/dL 13.3-17.7 Blood hematocrit (volume fraction) 31 % 40-54 Automated erythrocyte mean corpuscular volume 99 [ [facility]oz_us] 80-99 Automated erythrocyte mean corpuscular h emoglobin (mass per erythrocyte) 31 pg 25-34 Automated erythrocyte mean corpuscular h emoglobin concentration measurement (mass/volume) 31 g/dL 32-36 Automated erythrocyte distribution width ratio 15. 3 % 10.0- 14.5 Automated blood platelet count (count/volume) 535 10*3/uL 130-400 Automated blood platelet mean volume measurement 8.6 [foz_us] 7.4-10.4 Automated blood neutrophils/100 leukocytes 68 % 42-75 Automated blood lymphocytes/100 leukocytes 20 % 12-44 Blood monocytes/100 leukocytes 8 % 0-12 Automated blood eosinophils/100 leukocytes 4 % 0-10 Automated blood basophils/100 leukocytes 0 % 0-10 Blood neutrophils automated count (number/volume) 6.2 10*3 1.8-7.8 Blood lymphocytes automated count (number/volume) 1.8 10*3 1.0-4.0 Blood monocytes automated count (number/volume) 0. 7 10*3 0.0-1.0 Automated eosinophil count 0.4 10*3/uL 0 .0-0.3 Automated blood basophil count (count/volume) 0.0 10*3/uL 0.0-0.1 Serum or plasma troponin i.cardiac measu rement (mass/volume) - 02/28/20 03:15 Serum or plasma troponin i.cardiac measurement (mass/v olume) < ng/mL <0.028 PROCALCITONIN (PCT) - 02/28/20 03:15 PROCALCITONIN (PCT) 0.06 ng/mL <0.10 Complete blood count (CBC) with automate d white blood cell (WBC) differential - 02/29/20 04:54 Blood leukocytes automated count (number/volume) 8.2 10*3/uL 4.3-11.0 Blood erythrocytes automated count (number/volume) 3.06 10*6/uL 4.35-5.85 Venous blood hemoglobin measurement (mass/volume) 9.2 g/dL 13.3-17.7 Blood hematocrit (volume fraction) 30 % 40-54 Automated erythrocyte mean corpuscular volume 98 [ foz_us] 80-99 Automated erythrocyte mean corpuscular h emoglobin (mass per erythrocyte) 30 pg 25-34 Automated erythrocyte mean corpuscular h emoglobin concentration measurement (mass/volume) 31 g/dL 32-36 Automated erythrocyte distribution width ratio 15. 3 % 10.0- 14.5 Automated blood platelet count (count/volume) 567 10*3/uL 130-400 Automated blood platelet mean volume measurement 8.6 [foz_us] 7.4-10.4 Automated blood neutrophils/100 leukocytes 67 % 42-75 Automated blood lymphocytes/100 leukocytes 22 % 12-44 Blood monocytes/100 leukocytes 10 % 0-12 Automated blood eosinophils/100 leukocytes 1 % 0-10 Automated blood basophils/100 leukocytes 0 % 0-10 Blood neutrophils automated count (number/volume) 5.5 10*3 1.8-7.8 Blood lymphocytes automated count (number/volume) 1.8 10*3 1.0-4.0 Blood monocytes automated count (number/volume) 0. 8 10*3 0.0-1.0 Automated eosinophil count 0.1 10*3/uL 0 .0-0.3 Automated blood basophil count (count/volume) 0.0 10*3/uL 0.0-0.1 Serum or plasma lithium measurement (mol es/volume) - 02/29/20 04:54 BNP PT 64.2 pg/mL <100.0 Complete blood count (CBC) with automate d white blood cell (WBC) differential - 03/01/20 05:15 Blood leukocytes automated count (number/volume) 9.4 10*3/uL 4.3-11.0 Blood erythrocytes automated count (number/volume) 3.06 10*6/uL 4.35-5.85 Venous blood hemoglobin measurement (mass/volume) 9.4 g/dL 13.3-17.7 Blood hematocrit (volume fraction) 30 % 40-54 Automated erythrocyte mean corpuscular volume 99 [ foz_us] 80-99 Automated erythrocyte mean corpuscular h emoglobin (mass per erythrocyte) 31 pg 25-34 Automated erythrocyte mean corpuscular h emoglobin concentration measurement (mass/volume) 31 g/dL 32-36 Automated erythrocyte distribution width ratio 15. 5 % 10.0- 14.5 Automated blood platelet count (count/volume) 587 10*3/uL 130-400 Automated blood platelet mean volume measurement 8.6 [foz_us] 7.4-10.4 Automated blood neutrophils/100 leukocytes 65 % 42-75 Automated blood lymphocytes/100 leukocytes 24 % 12-44 Blood monocytes/100 leukocytes 9 % 0-12 Automated blood eosinophils/100 leukocytes 1 % 0-10 Automated blood basophils/100 leukocytes 0 % 0-10 Blood neutrophils automated count (number/volume) 6.1 10*3 1.8-7.8 Blood lymphocytes automated count (number/volume) 2.3 10*3 1.0-4.0 Blood monocytes automated count (number/volume) 0. 9 10*3 0.0-1.0 Automated eosinophil count 0.1 10*3/uL 0 .0-0.3 Automated blood basophil count (count/volume) 0.0 10*3/uL 0.0-0.1 Complete blood count (CBC) with automate d white blood cell (WBC) differential - 03/02/20 05:45 Blood leukocytes automated count (number/volume) 12.0 10*3/uL 4.3-11.0 Blood erythrocytes automated count (number/volume) 3.51 10*6/uL 4.35-5.85 Venous blood hemoglobin measurement (mass/volume) 10.5 g/dL 13.3-17.7 Blood hematocrit (volume fraction) 35 % 40-54 Automated erythrocyte mean corpuscular volume 98 [ foz_us] 80-99 Automated erythrocyte mean corpuscular h emoglobin (mass per erythrocyte) 30 pg 25-34 Automated erythrocyte mean corpuscular h emoglobin concentration measurement (mass/volume) 30 g/dL 32-36 Automated erythrocyte distribution width ratio 15. 8 % 10.0- 14.5 Automated blood platelet count (count/volume) 660 10*3/uL 130-400 Automated blood platelet mean volume measurement 8.6 [foz_us] 7.4-10.4 Automated blood neutrophils/100 leukocytes 67 % 42-75 Automated blood lymphocytes/100 leukocytes 18 % 12-44 Blood monocytes/100 leukocytes 12 % 0-12 Automated blood eosinophils/100 leukocytes 3 % 0-10 Automated blood basophils/100 leukocytes 0 % 0-10 Blood neutrophils automated count (number/volume) 8.0 10*3 1.8-7.8 Blood lymphocytes automated count (number/volume) 2.1 10*3 1.0-4.0 Blood monocytes automated count (number/volume) 1. 4 10*3 0.0-1.0 Automated eosinophil count 0.3 10*3/uL 0 .0-0.3 Automated blood basophil count (count/volume) 0.0 10*3/uL 0.0-0.1 Complete blood count (CBC) with automate d white blood cell (WBC) differential - 03/03/20 04:07 Blood leukocytes automated count (number/volume) 9.6 10*3/uL 4.3-11.0 Blood erythrocytes automated count (number/volume) 3.25 10*6/uL 4.35-5.85 Venous blood hemoglobin measurement (mass/volume) 10.0 g/dL 13.3-17.7 Blood hematocrit (volume fraction) 32 % 40-54 Automated erythrocyte mean corpuscular volume 98 [ foz_us] 80-99 Automated erythrocyte mean corpuscular h emoglobin (mass per erythrocyte) 31 pg 25-34 Automated erythrocyte mean corpuscular h emoglobin concentration measurement (mass/volume) 31 g/dL 32-36 Automated erythrocyte distribution width ratio 15. 4 % 10.0- 14.5 Automated blood platelet count (count/volume) 632 10*3/uL 130-400 Automated blood platelet mean volume measurement 8.7 [foz_us] 7.4-10.4 Automated blood neutrophils/100 leukocytes 61 % 42-75 Automated blood lymphocytes/100 leukocytes 25 % 12-44 Blood monocytes/100 leukocytes 12 % 0-12 Automated blood eosinophils/100 leukocytes 2 % 0-10 Automated blood basophils/100 leukocytes 0 % 0-10 Blood neutrophils automated count (number/volume) 5.9 10*3 1.8-7.8 Blood lymphocytes automated count (number/volume) 2.4 10*3 1.0-4.0 Blood monocytes automated count (number/volume) 1. 2 10*3 0.0-1.0 Automated eosinophil count 0.2 10*3/uL 0 .0-0.3 Automated blood basophil count (count/volume) 0.0 10*3/uL 0.0-0.1 Complete blood count (CBC) with automate d white blood cell (WBC) differential - 03/04/20 06:17 Blood leukocytes automated count (number/volume) 13.4 10*3/uL 4.3-11.0 Blood erythrocytes automated count (number/volume) 3.20 10*6/uL 4.35-5.85 Venous blood hemoglobin measurement (mass/volume) 9.8 g/dL 13.3-17.7 Blood hematocrit (volume fraction) 32 % 40-54 Automated erythrocyte mean corpuscular volume 99 [ foz_us] 80-99 Automated erythrocyte mean corpuscular h emoglobin (mass per erythrocyte) 31 pg 25-34 Automated erythrocyte mean corpuscular h emoglobin concentration measurement (mass/volume) 31 g/dL 32-36 Automated erythrocyte distribution width ratio 15. 6 % 10.0- 14.5 Automated blood platelet count (count/volume) 699 10*3/uL 130-400 Automated blood platelet mean volume measurement 9.0 [foz_us] 7.4-10.4 Automated blood neutrophils/100 leukocytes 70 % 42-75 Automated blood lymphocytes/100 leukocytes 20 % 12-44 Blood monocytes/100 leukocytes 9 % 0-12 Automated blood eosinophils/100 leukocytes 1 % 0-10 Automated blood basophils/100 leukocytes 0 % 0-10 Blood neutrophils automated count (number/volume) 9.4 10*3 1.8-7.8 Blood lymphocytes automated count (number/volume) 2.7 10*3 1.0-4.0 Blood monocytes automated count (number/volume) 1. 2 10*3 0.0-1.0 Automated eosinophil count 0.1 10*3/uL 0 .0-0.3 Automated blood basophil count (count/volume) 0.0 10*3/uL 0.0-0.1 Complete blood count (CBC) with automate d white blood cell (WBC) differential - 03/05/20 05:26 Blood leukocytes automated count (number/volume) 11.4 10*3/uL 4.3-11.0 Blood erythrocytes automated count (number/volume) 3.13 10*6/uL 4.35-5.85 Venous blood hemoglobin measurement (mass/volume) 9.5 g/dL 13.3-17.7 Blood hematocrit (volume fraction) 31 % 40-54 Automated erythrocyte mean corpuscular volume 99 [ foz_us] 80-99 Automated erythrocyte mean corpuscular h emoglobin (mass per erythrocyte) 30 pg 25-34 Automated erythrocyte mean corpuscular h emoglobin concentration measurement (mass/volume) 31 g/dL 32-36 Automated erythrocyte distribution width ratio 15. 4 % 10.0- 14.5 Automated blood platelet count (count/volume) 719 10*3/uL 130-400 Automated blood platelet mean volume measurement 9.1 [foz_us] 7.4-10.4 Automated blood neutrophils/100 leukocytes 66 % 42-75 Automated blood lymphocytes/100 leukocytes 22 % 12-44 Blood monocytes/100 leukocytes 11 % 0-12 Automated blood eosinophils/100 leukocytes 1 % 0-10 Automated blood basophils/100 leukocytes 0 % 0-10 Blood neutrophils automated count (number/volume) 7.5 10*3 1.8-7.8 Blood lymphocytes automated count (number/volume) 2.5 10*3 1.0-4.0 Blood monocytes automated count (number/volume) 1. 3 10*3 0.0-1.0 Automated eosinophil count 0.1 10*3/uL 0 .0-0.3 Automated blood basophil count (count/volume) 0.0 10*3/uL 0.0-0.1 Complete blood count (CBC) with automate d white blood cell (WBC) differential - 03/06/20 05:37 Blood leukocytes automated count (number/volume) 12.9 10*3/uL 4.3-11.0 Blood erythrocytes automated count (number/volume) 3.36 10*6/uL 4.35-5.85 Venous blood hemoglobin measurement (mass/volume) 10.1 g/dL 13.3-17.7 Blood hematocrit (volume fraction) 34 % 40-54 Automated erythrocyte mean corpuscular volume 100 [foz_us] 80-99 Automated erythrocyte mean corpuscular h emoglobin (mass per erythrocyte) 30 pg 25-34 Automated erythrocyte mean corpuscular h emoglobin concentration measurement (mass/volume) 30 g/dL 32-36 Automated erythrocyte distribution width ratio 15. 6 % 10.0- 14.5 Automated blood platelet count (count/volume) 696 10*3/uL 130-400 Automated blood platelet mean volume measurement 8.7 [foz_us] 7.4-10.4 Automated blood neutrophils/100 leukocytes 64 % 42-75 Automated blood lymphocytes/100 leukocytes 24 % 12-44 Blood monocytes/100 leukocytes 11 % 0-12 Automated blood eosinophils/100 leukocytes 1 % 0-10 Automated blood basophils/100 leukocytes 0 % 0-10 Blood neutrophils automated count (number/volume) 8.2 10*3 1.8-7.8 Blood lymphocytes automated count (number/volume) 3.1 10*3 1.0-4.0 Blood monocytes automated count (number/volume) 1. 4 10*3 0.0-1.0 Automated eosinophil count 0.2 10*3/uL 0 .0-0.3 Automated blood basophil count (count/volume) 0.0 10*3/uL 0.0-0.1 Encounters ACCT No. Visit Date/Time Discharge Status Pt. Type Provider Facility Loc./Unit Complaint [id number] 01/11/2020 12:51:00 01/11/2020 15:15 :00 DIS Outpatient [facility] [facility] [place] [id number] 01/11/2020 13:18:12 Document Registration [id number] 02/27/2020 15:39:00 11:40:00 DIS Outpatient AD FRIED, CLAU Harris Via [facility] 4TH RLL PNA,CHEST PAIN,COVI D-19 EVAL [id number] 02/05/2020 10:15:00 11:10:00 DIS Inpatient LOI CORTEZ DO, V ia [facility] IRF COPD MYOPATHY [id number] 01/23/2020 12:05:00 10:30:00 DIS Inpatient SUSY FRIED, BLANE Harris [facility] 4TH PNEUMONIA;COPD [id number] 01/30/2020 13:00:00 18:30:00 DIS Outpatient JOSESITO FRIED, THERESA Hill [facility] CATH CHEST PAIN [id number] 01/11/2020 15:52:00 10:54:00 DIS Inpatient SUSY FRIED, BLANE Harris [facility] 4TH SEPSIS [id number] 04/12/2020 11:15:00 P EN Preadmit JENI DENISE DO Via [facility] RAD PNEUMONIA
[2020-03-21] MEDS ORDERED: ASPIRIN 81 MG CHEW (CHILDREN'S ASA) PO ONE (14:15)
--- NOTE | 2020-03-21 14:20 | NUR ---
COVID-19 swab done at this time.
[2020-03-21 14:34] LABS: BASOPHILS % (AUTO) 0 % (0-10); EOSINOPHILS # (AUTO) 0.2 10^3/uL (0.0-0.3); EOSINOPHILS % (AUTO) 1 % (0-10); HEMATOCRIT 35 % (40-54); HEMOGLOBIN 11.1 G/DL (13.3-17.7); LYMPHOCYTES # (AUTO) 1.6 X 10^3 (1.0-4.0); LYMPHOCYTES % (AUTO) 11 % (12-44); MEAN CORPUSCULAR HEMOGLOBIN 30 PG (25-34); MEAN CORPUSCULAR HGB CONC 32 G/DL (32-36); MEAN CORPUSCULAR VOLUME 94 FL (80-99); MEAN PLATELET VOLUME 8.5 FL (7.4-10.4); MONOCYTES # (AUTO) 1.1 X 10^3 (0.0-1.0); MONOCYTES % (AUTO) 8 % (0-12); NEUTROPHILS # (AUTO) 11.4 X 10^3 (1.8-7.8); NEUTROPHILS % (AUTO) 80 % (42-75); PLATELET COUNT 441 10^3/uL (130-400); RED CELL DISTRIBUTION WIDTH 15.2 % (10.0-14.5); WHITE BLOOD COUNT 14.2 10^3/uL (4.3-11.0)
--- NOTE | 2020-03-21 14:36 | NUR ---
EKG AND IV DONE BY ALANIS MADRIGAL 2ND BLOOD CULTURE DONE
[2020-03-21 14:59] LABS: INR 1.2 (0.8-1.4); PROTHROMBIN TIME PATIENT 15.5 SEC (12.2-14.7)
--- NOTE | 2020-03-21 15:02 | Diagnostic Imaging Report ---
INDICATION: Short of air, chest pain. EXAMINATION: Upright chest was obtained. FINDINGS: Normal heart size and vascularity. There is left perihilar atelectasis and infiltrate. There is patchy airspace disease seen at the right lung base. There is patchy airspace disease seen in the left lower lobe. IMPRESSION: There are patchy bilateral infiltrates present. There is slight improved aeration of the right lung base since 02/27/2020. There is slightly more left perihilar atelectasis. Dictated by: Dictated on workstation # [id number]
[2020-03-21 15:04] LABS: ALANINE AMINOTRANSFERASE 21 U/L (0-55); ALBUMIN 3.2 GM/DL (3.2-4.5); ALKALINE PHOSPHATASE 81 U/L (40-136); BILIRUBIN,TOTAL 0.3 MG/DL (0.1-1.0); BUN/CREATININE RATIO 19; CALCIUM 9.3 MG/DL (8.5-10.1); CARBON DIOXIDE 22 MMOL/L (21-32); CHLORIDE 103 MMOL/L (98-107); CREATININE SERUM 0.59 MG/DL (0.60-1.30); GFR ESTIMATED > 60; GLUCOSE 96 MG/DL (70-105); MAGNESIUM 1.8 MG/DL (1.6-2.4); POTASSIUM 3.7 MMOL/L (3.6-5.0); SODIUM 137 MMOL/L (135-145); TOTAL PROTEIN 7.1 GM/DL (6.4-8.2)
--- NOTE | 2020-03-21 15:27 | ED General ---
General Chief Complaint: General Problems/Pain Stated Complaint: LEG PAIN Nursing Triage Note: TO ED PER EMS WHO REPORT PATIENT CALLED EMS BECAUSE HE HAD NATALEE LEG PAIN THEIR FINDING THAT PATIENT SA02 WAS IN THE 90% WITH TEMP OF 99.9 WITH NEG COVID 1 MONTH AGO [facility] RECEPTIONIST OK TO SEE PATIENT ON THIS SIDE. PATIENT TELLS STAFF THAT HE IS SOB EVEN WITH HOME 02 AND HAVING CHEST PAIN. Ruchi NEAL NOTIFIED AND STAFF STEPPED OUT ANG GO IN TO PPE. ALANIS RN Nursing Sepsis Screen: No Definite Risk Source of Information: Patient Exam Limitations: No Limitations History of Present Illness Date Seen by Provider: Mar 21, 2020 Time Seen by Provider: 15:26 Initial Comments To ER by EMS from home with reports of bilateral leg pain. This starts in his low back and radiates down both legs. It's been ongoing for about a week. No falls or known injury. No fevers. He has not had any loss of bowel or bladder control. 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 He now wears oxygen at home as needed. He reports increased shortness of breath and chest pain today as well. Timing/Duration: 1-2 Days Severity: Moderate Associated Systoms: Cough Allergies and Home Medications Allergies Coded Allergies: No Known Drug Allergies (Verified , 07/11/09) Home Medications Digoxin 250 Mcg Tablet, 0.25 MG PO DAILY Prescribed by: LOI CORTEZ on 02/15/20 145 Diltiazem HCl 300 Mg Cap.er.24h, 300 MG PO DAILY Prescribed by: LOI CORTEZ on 02/15/20 145 Ferrous Sulfate 325 Mg Tablet, 325 MG PO BID WITH MEALS Prescribed by: LOI CORTEZ on 02/15/20 145 Fluticasone/Salmeterol 12 Gm Hfa.aer.ad, 0 PUFF IH RTBID Prescribed by: OLI CORTEZ on 02/15/20 145 Folic Acid 1 Mg Tablet, 1 MG PO DAILY Prescribed by: LOI CORTEZ on 02/15/20 145 Gabapentin 100 Mg Capsule, 200 MG PO TID Prescribed by: LOI CORTEZ on 02/15/20 145 Guaifenesin 600 Mg Tab.er.12h, 600 MG PO BID Prescribed by: LOI CORTEZ on 02/15/201450 Ipratropium/Albuterol Sulfate 3 Ml Ampul.neb, 3 ML INH RTQ4HR Prescribed by: LOI CORTEZ on 02/15/201450 Lactulose 20 Gm/30 Ml Solution, 10 GM PO BID PRN for CONSTIPATION-2ND LINE Prescribed by: LOI CORTEZ on 02/15/201450 Multivitamin 1 Each Tablet, 1 EACH PO DAILY, (Reported) Oxycodone HCl 5 Mg Tablet, 5 MG PO Q4HR PRN for PAIN-SEVERE (8-10) Prescribed by: LOI CORTEZ on 02/15/201450 Pantoprazole Sodium 40 Mg Tablet.dr, 40 MG PO DAILY Prescribed by: LOI CORTEZ on 02/15/201450 Rivaroxaban 20 Mg Tablet, 20 MG PO DAILY@1700 Prescribed by: LOI CORTEZ on 02/15/201450 Patient Home Medication List Home Medication List Reviewed: Yes Review of Systems Review of Systems Constitutional: see HPI; No chills, No fever; weakness EENTM: see HPI Respiratory: see HPI, short of breath Cardiovascular: no symptoms reported Genitourinary: no symptoms reported Musculoskeletal: no symptoms reported Skin: no symptoms reported Psychiatric/Neurological: No Symptoms Reported Hematologic/Lymphatic: No Symptoms Reported Immunological/Allergic: no symptoms reported Past Pmrcfac-Xbklns-Emaoqe Hx Patient Social History Alcohol Beverage of Choice: Beer Drug of Choice: "marijuana in the 80's and 90's" Type Used: Cigarettes Former Smoker, Quit: Dec 06, 2019 Recent Foreign Travel: No Contact w/Someone Who Travel: No Recent Infectious Disease Expo: No Recent Hopitalizations: Yes Immunizations Up To Date Tetanus Booster (TDap): Unknown PED Vaccines UTD: No Seasonal Allergies Seasonal Allergies: Yes (hayfever) Past Medical History Surgeries: Yes (hernia repair, l ankle, l wrist, ) Orthopedic Respiratory: Yes Pneumonia, COPD Currently Using CPAP: No Currently Using BIPAP: No Cardiac: Yes Atrial Fibrillation, Deep Vein Thrombosis, Hypertension Neurological: Yes (neuralgia) Sexually Transmitted Disease: No HIV/AIDS: No Genitourinary: No Renal Failure Gastrointestinal: Yes Abdominal Hernia, Gastrointestinal Bleed Musculoskeletal: No Chronic Back Pain Endocrine: No HEENT: No (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 oz. kg; 20.00 BMI Method: General Appearance: No Apparent Distress, WD/WN, Chronically ill (appears much older than stated age), Cachetic, Thin Eyes: Bilateral Eye Normal Inspection, Bilateral Eye PERRL, Bilateral Eye EOMI Neck: Full Range of Motion, Normal Inspection Respiratory: No Accessory Muscle Use, No Respiratory Distress, Crackles, De creased Breath Sounds Gastrointestinal: Non Tender, Soft Extremity: Normal Capillary Refill, Normal Inspection, Other (the site of amputation of first and second toes is dry and intact without erythema to suggest cellulitis. There is some darkened area brownish in discoloration to the very plantar surface at the tip of the third and fourth toes) Neurologic/Psychiatric: Alert, Oriented x3 Skin: Normal Color, Warm/Dry Focused Exam Lactate Level 03/21/20 14:15: Lactic Acid Level 1.28 Lactic Acid Level Laboratory Tests Test 03/21/20 14:15 Lactic Acid Level 1.28 MMOL/L (0.50-2.00) Procedures/Interventions Date of ETT Placement: January 17, 2020 Time of ETT Placement: 08 Progress/Results/Core Measures Suspected Sepsis Recent Fever Within 48 Hours: No Infection Criteria Present: Suspected New Infection New/Unexplained Altered Menta: No Sepsis Screen: No Definite Risk SIRS Temperature: Pulse: 103 Respiratory Rate: 18 Laboratory Tests 03/21/20 14:15: White Blood Count 14.2H Blood Pressure 134 /67 Mean: 89 03/21/20 14:15: Lactic Acid Level 1.28 Laboratory Tests 03/21/20 14:15: Creatinine 0.59L, INR Comment 1.2, Platelet Count 441H, Total Bilirubin 0.3 Results/Orders Lab Results Laboratory Tests Test 03/21/20 14:15 Range/Units White Blood Count 14.2 H 4.3-11.0 10^3/uL Red Blood Count 3.69 L 4.35-5.85 10^6/uL Hemoglobin 11.1 L 13.3-17.7 G/DL Hematocrit 35 L 40-54 % Mean Corpuscular Volume 94 80-99 FL Mean Corpuscular Hemoglobin 30 25-34 PG Mean Corpuscular Hemoglobin Concent 32 32-36 G/DL Red Cell Distribution Width 15.2 H 10.0-14.5 % Platelet Count 441 H 130-400 10^3/uL Mean Platelet Volume 8.5 7.4-10.4 FL Neutrophils (%) (Auto) 80 H 42-75 % Lymphocytes (%) (Auto) 11 L 12-44 % Monocytes (%) (Auto) 8 0-12 % Eosinophils (%) (Auto) 1 0-10 % Basophils (%) (Auto) 0 0-10 % Neutrophils # (Auto) 11.4 H 1.8-7.8 X 10^3 Lymphocytes # (Auto) 1.6 1.0-4.0 X 10^3 Monocytes # (Auto) 1.1 H 0.0-1.0 X 10^3 Eosinophils # (Auto) 0.2 0.0-0.3 10^3/uL Basophils # (Auto) 0.0 0.0-0.1 10^3/uL Prothrombin Time 15.5 H 12.2-14.7 SEC INR Comment 1.2 0.8-1.4 Activated Partial Thromboplast Time 44 H 24-35 SEC Sodium Level 137 135-145 MMOL/L Potassium Level 3.7 3.6-5.0 MMOL/L Chloride Level 103 98-107 MMOL/L Carbon Dioxide Level 22 21-32 MMOL/L Anion Gap 12 5-14 MMOL/L Blood Urea Nitrogen 11 7-18 MG/DL Creatinine 0.59 L 0.60-1.30 MG/DL Estimat Glomerular Filtration Rate > 60 BUN/Creatinine Ratio 19 Glucose Level 96 70-105 MG/DL Lactic Acid Level 1.28 0.50-2.00 MMOL/L Calcium Level 9.3 8.5-10.1 MG/DL Corrected Calcium 9.9 8.5-10.1 MG/DL Magnesium Level 1.8 1.6-2.4 MG/DL Total Bilirubin 0.3 0.1-1.0 MG/DL Aspartate Amino Transf (AST/SGOT) 27 5-34 U/L Alanine Aminotransferase (ALT/SGPT) 21 0-55 U/L Alkaline Phosphatase 81 40-136 U/L Myoglobin 94.1 H 10.0-92.0 NG/ML Troponin I < 0.028 <0.028 NG/ML B-Type Natriuretic Peptide 59.5 <100.0 PG/ML Total Protein 7.1 6.4-8.2 GM/DL Albumin 3.2 3.2-4.5 GM/DL My Orders Orders - [facility] RECEPTIONIST Cbc With Automated Diff (03/21/20 14:12) Magnesium (03/21/20 14:12) Chest 1 View, Ap/Pa Only (03/21/20 14:12) Ekg Tracing (03/21/20 14:12) Comprehensive Metabolic Panel (03/21/20 14:12) Myoglobin Serum (03/21/20 14:12) Protime With Inr (03/21/20 14:12) Partial Thromboplastin Time (03/21/20 14:12) O2 (03/21/20 14:12) Monitor-Rhythm Ecg Trace Only (03/21/20 14:12) Lipid Panel (03/22/20 06:00) Ed Iv/Invasive Line Start (03/21/20 14:12) BNP (03/21/20 14:12) Troponin I (03/21/20 14:12) Aspirin Chewable Tablet (Baby Aspirin Ch (03/21/20 14:15) Blood Culture (03/21/20 14:41) Lactic Acid Analyzer (03/21/20 14:41) Arterial Blood Gas (03/21/20 15:28) Piperacillin Sodium/Tazobactam (Zosyn Vi (03/21/20 15:30) Procalcitonin (Pct) (03/21/20 15:58) Medications Given in ED Current Medications Medications Dose Ordered Sig/David Route Start Time Stop Time Status Last Admin Dose Admin Aspirin 324 mg ONCE ONCE PO 03/21/20 14:15 03/21/20 14:16 DC 03/21/20 14:43 324 MG Piperacillin Sod/ Tazobactam Sod 4.5 gm/Sodium Chloride 100 ml @ 200 mls/hr ONCE ONCE IV 03/21/20 15:30 03/21/20 15:59 03/21/20 15:47 200 MLS/HR Vital Signs/I&O 03/21/20 14:04 Temp 37.4 Pulse 103 Resp 18 B/P (MAP) 134/67 (89) Pulse Ox 95 O2 Delivery Room Air Capillary Refill : Less Than 3 Seconds Blood Pressure Mean: 89 Diagnostic Imaging Diagonstic Imaging: Xray Plain Films/CT/US/NM/MRI: chest Comments NAME: ARSENIO JOLLY [facility] REC#: [id number] PT STATUS: REG ER : 1960 PHYSICIAN: KEVIN NEAL APRN ADMIT DATE: 03/21/20/ER Signed Date of Exam:03/21/20 CHEST 1 VIEW, AP/PA ONLY INDICATION: Short of air, chest pain. EXAMINATION: Upright chest was obtained. FINDINGS: Normal heart size and vascularity. There is left perihilar atelectasis and infiltrate. There is patchy airspace disease seen at the right lung base. There is patchy airspace disease seen in the left lower lobe. IMPRESSION: There are patchy bilateral infiltrates present. There is slight improved aeration of the right lung base since 02/27/2020. There is slightly more left perihilar atelectasis. Dictated by: Dictated on workstation # [id number] Dict: 03/21/20 1458 Trans: 03/21/20 1512 [facility] [id number] Interpreted by: NATALIYA RICHTER MD Electronically signed by: NATALIYA RICHTER MD 03/21/20 1512 Departure Communication (Admissions) Time/Spoke to Admitting Phy: 16:[address] Oliveira who agrees to admit patient on Zosyn Impression Primary Impression: Pneumonia Disposition: ADMITTED INPATIENT Condition: Stable Admissions Decision to Admit Reason: Admit from ER (General) Decision to Admit/Date: Mar 21, 2020 Time/Decision to Admit Time: 16:03 Departure-Patient Inst. Referrals: NO,LOCAL PHYSICIAN (PCP/Family) Primary Care Physician KEVIN NEAL APRN Mar 21, 2020 15:27
[2020-03-21] MEDS ORDERED: PIPERACILLIN SODIUM/TAZOBACTAM 4.5 GM in NS (IVPB) 100 ML IV ONE (15:30)
--- NOTE | 2020-03-21 16:25 | NUR ---
Clifford andrews in [facility] - 03/21/20 at 1737 by PMCCLURE PATIENT TURNED TO L SIDE TO HELP HIP PAIN
--- NOTE | 2020-03-21 17:00 | NUR ---
CALLED TO GIVE REPORT NO ANSWER WITH NURSE.
--- NOTE | 2020-03-21 17:25 | NUR ---
CALLED TO GIVE REPORT TO NURSE ANIRUDH RIVERA.
--- OUTSIDE RECORDS SUMMARY | 2020-03-21 17:32 | XMS REPORT | Continuity of Care Document ---
Author Organization Unknown Address Unknown Phone Unavailable Allergies Active Description Code Type Severity Reaction Onset Reported/Identified Relationship to Patient Clinical Status Yes NO KNOWN DRUG ALLERGIES UNKNOWN UNKNOWN Yes No Known Drug Allergies [id number] Drug Allergy Mild N/A 07/11/2009 Medications Medication [...] Type Code Diagnosis Diagnosed By 01/11/2020 MOJGAN LEDRIDGE 038.9 UNSPECIFIED SEPTICEMIA 01/11/2020 MOJGAN ELDRIDGE 285.9 [...] Ot F17.210 NICOTINE DEPENDENCE, CIGARETTES, UNCOMPL 01/13/2020 LBANE JAIN MD Ot J18. 9 PNEUMONIA, UNSPECIFIED ORGANISM 01/13/2020 BLANE JAIN MD Ot J44. 0 CHR OBSTRUCTIVE PULMON DISEASE WITH (ACU 01/13/2020 BLANE AJIN MD Ot R06. 03 ACUTE RESPIRATORY DISTRESS [...] Ot I25. 10 ATHSCL HEART DISEASE OF [place] CORONARY 01/30/2020 THERESA BELLAMY MD Ot I48. 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 1 STRICTURE OF ARTERY 01/30/2020 THERESA BELLAMY MD Ot I99. 8 OTHER DISORDER OF CIRCULATORY SYSTEM 01/30/2020 THEERSA BELLAMY MD Ot J18. 9 PNEUMONIA, UNSPECIFIED [...] I48. 0 PAROXYSMAL ATRIAL FIBRILLATION 02/03/2020 BLANE JIAN MD Ot I75.021 ATHEROEMBOLISM OF RIGHT LOWER [...] Ot I25. 10 ATHSCL HEART DISEASE OF [place] CORONARY 02/04/2020 THERESA BELLAMY MD Ot I48. [...] I48. 0 PAROXYSMAL ATRIAL FIBRILLATION 02/05/2020 BLANE JANI MD Ot I75.021 ATHEROEMBOLISM OF RIGHT LOWER [...] Ot J18. 9 PNEUMONIA, UNSPECIFIED ORGANISM 02/05/2020 BLAEN JAIN MD Ot J44. 0 CHR OBSTRUCTIVE [...] Ot I25. 10 ATHSCL HEART DISEASE OF [place] CORONARY 02/12/2020 THERESA BELLAMY MD Ot I48. [...] LOI Ot I25.10 ATHSCL HEART DISEASE OF [place] CORONARY 02/17/2020 CORTEZ DO, LOI Ot I48.0 [...] 03/04/2020 CLAU DUONG MD Ot Z79. 01 SYSTEMS SPECIALIST (CURRENT) USE OF ANTICOAGULANT 03/04/2020 CLAU DUONG [...] 8 OTHER NONSPECIFIC ABNORMAL FINDING OF NEVA 03/05/2020 CLAU DUONG MD Ot Z20.828 CONTACT W AND EXPOSURE TO OTH VIRAL COMM 03/05/2020 CLAU DUONG MD Ot Z79. 01 SENIOR CARE (CURRENT) USE OF ANTICOAGULANT 03/05/2020 CLAU DUONG [...] 03/06/2020 CLAU DUONG MD Ot Z79. 01 SENIOR CARE (CURRENT) USE OF ANTICOAGULANT 03/06/2020 CLAU DUONG [...] Ot I25. 10 ATHSCL HEART DISEASE OF [place] CORONARY 03/06/2020 CLAU DUONG MD Ot I48. 0 [...] 03/06/2020 CLAU DUONG MD Ot Z79. 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 Procedures Code Description Performed By Per formed On 362X5HJ DI LATION OF RIGHT FEMORAL ARTERY, PERCUT 01/13/2020 017A7QE DI LATION OF RIGHT POPLITEAL ARTERY, PERC 01/13/2020 [id number] IN TRODUCE OF OTH THROMBOLYTIC INTO PERIP 01/13/2020 [id number] FL UOROSCOPY OF AORTA, BI LE ART USING L 01/13/2020 [id number] FL UOROSCOPY OF R LOW EXTREM ART USING L 01/13/2020 [id number] IN SERTION OF ENDOTRACHEAL AIRWAY INTO TR 01/17/2020 [id number] RE SPIRATORY VENTILATION, 24- 96 CONSECUTI 01/17/2020 [id number] EX CISION OF ESOPHAGOGASTRIC JUNCTION, EN 02/04/2020 [id number] EX CISION OF STOMACH, ENDO, DIAGN 02/04/2020 [id number] EX CISION OF STOMACH, PYLORUS, ENDO, DIAG 02/04/2020 [id number] EX CISION OF DUODENUM, ENDO, DIAGN 02/04/2020 2E1E4G8 DE TACHMENT AT RIGHT 1ST TOE, COMPLETE, O 03/01/2020 3A3W5Y8 DE TACHMENT AT RIGHT 2ND TOE, COMPLETE, [...] COVID19 - 01/11/20 13:25 COVID19 Sent to [facility], Results have been scanned Influenza - [...] 01/12/20 07:45 PROCALCITONIN (PCT) 1.36 ng/mL <0.10 [id number] - 01/12/20 07:45 Prothrombin time (PT) in [...] pa bel - 01/15/20 05:50 WRISTBAND NUMBER [id number] NRG ABO+Rh group AP NRG Blood group [...] OF GROWTH Rare NRG Bacterial sputum culture [id number] NRG Arterial blood gas measurement - 0 [...] Automated erythrocyte mean corpuscular volume 96 [ [facility] [place]] 80-99 Automated erythrocyte mean corpuscular h emoglobin [...] g/dL 3.2-4.5 CALCIUM CORRECTED 9.9 mg/dL 8.5-10.1 [id number] - 02/16/20 06:15 [id number] 0.56 ng/mL 0.80-2.00 PROCALCITONIN (PCT) - 02/16/20 [...] Status Pt. Type Provider Facility Loc./Unit Complaint [id number] 01/11/2020 12:51:00 01/11/2020 15:15 :00 DIS Outpatient [place] [facility] [place] [id number] 01/11/2020 13:18:12 Document Registration [id number] 02/27/2020 15:39:00 11:40:00 DIS Outpatient AD FRIED, CLAU Harris [facility] 4TH RLL PNA,CHEST PAIN,COVI D-19 EVAL [id number] 02/05/2020 10:15:00 11:10:00 DIS Inpatient LOI CORTEZ DO, V ia [facility] IRF COPD MYOPATHY [id number] 01/23/2020 12:05:00 10:30:00 DIS Inpatient SUSY FRIED, BLANE Harris [facility] 4TH PNEUMONIA;COPD [id number] 01/30/2020 13:00:00 18:30:00 DIS Outpatient JOSESITO FRIED, THERESA Hill [facility] CATH CHEST PAIN [id number] 01/11/2020 15:52:00 10:54:00 DIS Inpatient SUSY FRIED, BLANE Harris [facility] 4TH SEPSIS [id number] 04/12/2020 11:15:00 P EN Preadmit JENI DENISE DO [facility] RAD PNEUMONIA
--- NOTE | 2020-03-21 17:44 | NUR ---
CALLED FLOOR TO HAVE NURSE CALL
--- NOTE | 2020-03-21 17:57 | NUR ---
ARSENIO JOLLY admitted to room 423-1, with an admitting diagnosis of PNA, on 03/21/20 from ED via wheel chair , accompanied by staff .ARSENIO JOLLY introduced to surroundings, call light, bed controls, phone, TV, temperature control, lights, meal times, smoking policy, visitor policy, side rail policy, bathrooms and showers. Patient Rights given to patient in the handbook. ARSENIO JOLLY verbalizes understanding that [facility] is not responsible for the loss or damage to any personal effects or valuables that are kept in the patients posession during their hospitalization. The following Patient Care Plans and discharge were discussed with the patient. ARSENIO JOLLY verbalizes understanding of Interdisciplinary Patient Education. Patient was informed about the Rapid Response Team and its purpose.
[2020-03-21 18:20] VITALS: BP 120/82
[2020-03-21] MEDS ORDERED: LACTATED RINGERS 1,000 ML IV ONE (18:23)
[2020-03-21 20:00] VITALS: BP 129/81
[2020-03-21 20:38] VITALS: BP 134/67
[2020-03-21] MEDS: LACTATED RINGERS 1,000 ML IV SCH (20:43)
[2020-03-21] MEDS ORDERED: ONDANSETRON 4 MG/2 ML (SDV) Z0FRAN IV PRN (20:45)
[2020-03-21] MEDS ORDERED: ACETAMINOPHEN 325 MG TABLET PO PRN (20:45)
[2020-03-21] MEDS ORDERED: PIPERACILLIN/TAZO 4.5 GM VIAL (ZOSYN) IV ONE (20:47)
[2020-03-21] MEDS ORDERED: NS (IVPB) 100 ML ONE (20:48)
--- NOTE | 2020-03-21 20:50 | NUR ---
KIMBERLEY GRAJEDA RN MIX ZOSYN 4.5 MG IN 100 ML BAG.
[2020-03-21] MEDS ORDERED: RT-ALBUTEROL/IPRATROPIUM 3 ML (DUONEB) VIAL INH PRN (21:00)
[2020-03-21] MEDS: PIPERACILLIN/TAZO 4.5 GM/NS 100 ML IV SCH ×2 (21:17)
[2020-03-21] MEDS: HYDROcodone/APAP 5 MG/325 MG (LORTAB) TAB PO PRN (21:17)
[2020-03-21] MEDS ORDERED: ALBUTEROL/IPRATROP (COMBIVENT RESPIMAT) 4 GM INHALER ONE (21:46)
[2020-03-21] MEDS ORDERED: RT-ALBUTEROL/IPRATROPIUM 3 ML (DUONEB) VIAL INH SCH (22:00)
[2020-03-22] VITALS (8 sets, daily range): BP systolic 119–133; BP diastolic 72–82
[2020-03-22] MEDS: HYDROcodone/APAP 5 MG/325 MG (LORTAB) TAB PO PRN ×3 (03:10→13:08)
[2020-03-22 03:32] LABS: BASOPHILS % (AUTO) 0 % (0-10); EOSINOPHILS # (AUTO) 0.4 10^3/uL (0.0-0.3); EOSINOPHILS % (AUTO) 4 % (0-10); HEMATOCRIT 31 % (40-54); HEMOGLOBIN 9.9 G/DL (13.3-17.7); LYMPHOCYTES # (AUTO) 1.7 X 10^3 (1.0-4.0); LYMPHOCYTES % (AUTO) 17 % (12-44); MEAN CORPUSCULAR HEMOGLOBIN 30 PG (25-34); MEAN CORPUSCULAR HGB CONC 32 G/DL (32-36); MEAN CORPUSCULAR VOLUME 94 FL (80-99); MEAN PLATELET VOLUME 8.7 FL (7.4-10.4); MONOCYTES % (AUTO) 10 % (0-12); NEUTROPHILS # (AUTO) 6.6 X 10^3 (1.8-7.8); NEUTROPHILS % (AUTO) 69 % (42-75); PLATELET COUNT 425 10^3/uL (130-400); RED CELL DISTRIBUTION WIDTH 14.9 % (10.0-14.5); WHITE BLOOD COUNT 9.6 10^3/uL (4.3-11.0)
[2020-03-22 03:51] LABS: ALBUMIN 2.9 GM/DL (3.2-4.5); CHLORIDE 106 MMOL/L (98-107); POTASSIUM 3.6 MMOL/L (3.6-5.0); SODIUM 139 MMOL/L (135-145)
[2020-03-22 03:53] LABS: TRIGLYCERIDES 78 MG/DL (<150); VLDL CHOLESTEROL 16 MG/DL (5-40)
[2020-03-22 03:54] LABS: GLUCOSE 93 MG/DL (70-105); TOTAL PROTEIN 6.4 GM/DL (6.4-8.2)
[2020-03-22 03:55] LABS: CARBON DIOXIDE 22 MMOL/L (21-32)
[2020-03-22 03:56] LABS: BILIRUBIN,TOTAL 0.2 MG/DL (0.1-1.0)
[2020-03-22 03:57] LABS: ALKALINE PHOSPHATASE 66 U/L (40-136); CREATININE SERUM 0.63 MG/DL (0.60-1.30); GFR ESTIMATED > 60
[2020-03-22 03:58] LABS: CHOLESTEROL 109 MG/DL (< 200)
[2020-03-22 03:59] LABS: BUN/CREATININE RATIO 16
[2020-03-22 04:00] LABS: ALANINE AMINOTRANSFERASE 17 U/L (0-55); HDL CHOLESTEROL 36 MG/DL (40-60)
[2020-03-22] MEDS ORDERED: PIPERACILLIN/TAZO 4.5 GM VIAL (ZOSYN) IV ONE (05:12)
[2020-03-22] MEDS ORDERED: NS (IVPB) 100 ML ONE (05:12)
[2020-03-22] MEDS: PIPERACILLIN/TAZO 4.5 GM/NS 100 ML IV SCH ×6 (06:20→20:44)
[2020-03-22] MEDS ORDERED: ALBUTEROL/IPRATROP (COMBIVENT RESPIMAT) 4 GM INHALER IH PRN (07:15)
[2020-03-22] MEDS: ALBUTEROL/IPRATROP (COMBIVENT RESPIMAT) 4 GM INHALER IH SCH ×5 (07:20→21:23)
[2020-03-22] MEDS: LACTATED RINGERS 1,000 ML IV SCH ×2 (09:58→13:09)
--- NOTE | 2020-03-22 15:58 | History & Physical-Hospitalist ---
History of Present Illness HPI/Chief Complaint Moshe Soto is a 59-year-old male with past medical history of hypertension, atrial fibrillation on Xarelto, COPD, peripheral arterial disease, who presented with shortness of breath. He has been hospitalized multiple times recently with recurrent pneumonia. He reports having fever at home. He reports shortness of breath and cough productive of sputum. He denies any chest pain. He denies any abdominal pain, nausea, or vomiting. He has been having back pain which radiates down his legs bilaterally. He also reports calf and thigh pain with ambulation. Source: patient Exam Limitations: no limitations Date Seen 03/22/20 Time Seen by a Provider: 10:20 Attending Physician Clau Duong MD PCP No,Local Physician Referring Physician Date of Admission Mar 21, 2020 at 16:16 Home Medications & Allergies Home Medications Reviewed patient Home Medication Reconciliation performed by pharmacy medication reconciliations infectious waste technician and/or nursing. Patients Allergies have been reviewed. Allergies Allergies Coded Allergies No Known Drug Allergies (Elopcigf56/25/09) Past Blpkdtt-Jcpcqe-[place] Hx Past Med/Social Hx: Reviewed Nursing Past Med/Soc Hx Patient Social History Alcohol Use: Denies Use Number of Drinks Today: AA Alcohol Beverage of Choice: Beer Recreational Drug Use: No Drug of Choice: "marijuana in the 80's and 90's" Smoking Status: Never a Smoker Former Smoker, Quit: Dec 06, 2019 Type Used: Cigarettes Physical Abuse Screen: No Sexual Abuse: No Recent Foreign Travel: No Contact w/other who traveled: No Recent Hopitalizations: Yes Recent Infectious Disease Expo: No Immunizations Up To Date Tetanus Booster (TDap): Unknown Pediatric: No Seasonal Allergies Seasonal Allergies: Yes (hayfever) Past Medical History Surgeries: Orthopedic Respiratory: Pneumonia Currently Using CPAP: No Currently Using BIPAP: No Cardiac: Atrial Fibrillation, Deep Vein Thrombosis, Hypertension Sexually Transmitted Disease: No HIV/AIDS: No Genitourinary: Renal Failure Gastrointestinal: Abdominal Hernia, Gastrointestinal Bleed Musculoskeletal: Chronic Back Pain HEENT: Tinnitis Loss of Vision: Denies Hearing Impairment: Deaf Skin/Integumentary: Recent Skin Changes History of Blood Disorders: No Adverse Reaction to Blood Morrell: No Family History Alcoholism 19 FATHER 19 MOTHER Arthritis 19 FATHER 19 MOTHER Other Conditions/Hx Review of Systems Constitutional: fever, malaise EENTM: no symptoms reported Respiratory: cough, phlegm, short of breath Cardiovascular: no symptoms reported Gastrointestinal: no symptoms reported Genitourinary: no symptoms reported Musculoskeletal: back pain, muscle pain Skin: no symptoms reported Psychiatric/Neurological: No Symptoms Reported Physical Exam Physical Exam Vital Signs Vital Signs - First Documented 03/21/20 03/21/20 03/22/20 14:04 18:00 13:48 Temp 37.4 Pulse 103 Resp 18 B/P (MAP) 134/67 (89) Pulse Ox 95 O2 Delivery Room Air O2 Flow Rate 2.00 FiO2 28 Capillary Refill : Less Than 3 Seconds Height, Weight, BMI Height: '" Weight: lbs. oz. kg; 20.11 BMI Method: General Appearance: No Apparent Distress, Chronically ill, Thin HEENT: PERRL/EOMI, Pharynx Normal Neck: Normal Inspection, Supple Respiratory: Lungs Clear, No Respiratory Distress, Decreased Breath Sounds Cardiovascular: Regular Rate, Rhythm, No Edema, No Murmur, Normal Peripheral Pulses Gastrointestinal: Normal Bowel Sounds, Non Tender, Soft Extremity: Normal Inspection, Non Tender, No Pedal Edema Neurologic/Psychiatric: Alert, Oriented x3, No Motor/Sensory Deficits, Normal Mood/Affect Skin: Normal Color, Warm/Dry Results Results/Procedures Labs Laboratory Tests 03/21/20 14:15 03/22/20 03:25 Patient resulted labs reviewed. Imaging: Reviewed Imaging Report Assessment/Plan Admission Diagnosis Sepsis due to pneumonia Admission Status: Inpatient Order (span 2 midnights) Reason for Inpatient Admission: Pneumonia requiring IV antibiotics Assessment and Plan Sepsis due to pneumonia Acute respiratory failure with hypoxia SIRS+ with leukocytosis and tachycardia Chest x-ray with patchy bilateral infiltrates Procalcitonin elevated at 0.71 Started on Zosyn COVID PCR pending Continue supplemental oxygen Leg pain Likely claudication Cardiology consulted, appreciate assistance Hypertension Atrial fibrillation COPD Continue home meds DVT prophylaxis: Already receiving therapeutic anticoagulation Diagnosis/Problems Diagnosis/Problems (1) Sepsis due to pneumonia Status: Acute (2) HTN (hypertension) Status: Chronic (3) Paroxysmal atrial fibrillation Status: Chronic (4) Acute respiratory failure with hypoxia Status: Acute (5) COPD (chronic obstructive pulmonary disease) Status: Chronic Clinical Quality Measures DVT/VTE Risk/Contraindication: Risk Factor Score Per Nursin RFS Level Per Nursing on Admit: 4+=Very High CLAU DUONG MD Mar 22, 2020 15:58
[2020-03-22] MEDS ORDERED: ONDANSETRON 4 MG/2 ML (SDV) Z0FRAN IV PRN (16:00)
[2020-03-22] MEDS ORDERED: ANTACID SUSP 30 ML UDC (MYLANTA) PO PRN (16:00)
[2020-03-22] MEDS ORDERED: BISACODYL 10 MG SUPP (DULCOLAX) PR PRN (16:00)
[2020-03-22] MEDS ORDERED: diphenhydrAMINE 25 MG TAB (BENADRYL) PO PRN (16:00)
[2020-03-22] MEDS ORDERED: polyethylene glycoL POWDER 17 GM (MIRALAX) PACK PO PRN (16:00)
[2020-03-22] MEDS ORDERED: MELATONIN 3 MG TABLET PO PRN (16:00)
[2020-03-22] MEDS ORDERED: ONDANSETRON 4 MG (ZOFRAN) ORAL DISSOLVE TAB PO PRN (16:00)
[2020-03-22] MEDS ORDERED: RIVAROXABAN 20 MG TABLET (XARELTO) PO SCH (17:00)
--- NOTE | 2020-03-22 18:18 | NUR ---
Patient COVID results negative. Received order from Dr. Oliveira to [place] from isolation.
[2020-03-22] MEDS: SENNOSIDES 8.6 MG (SENOKOT) TAB PO SCH (20:43)
[2020-03-22] MEDS: DOCUSATE SODIUM 100 MG (COLACE) CAP PO SCH (20:43)
[2020-03-23] MEDS: ALBUTEROL/IPRATROP (COMBIVENT RESPIMAT) 4 GM INHALER IH SCH ×6 (01:53→21:07)
[2020-03-23 04:05] VITALS: BP 112/70
[2020-03-23 05:19] LABS: BASOPHILS % (AUTO) 0 % (0-10); EOSINOPHILS # (AUTO) 0.4 10^3/uL (0.0-0.3); EOSINOPHILS % (AUTO) 5 % (0-10); HEMATOCRIT 31 % (40-54); HEMOGLOBIN 9.7 G/DL (13.3-17.7); LYMPHOCYTES # (AUTO) 1.8 X 10^3 (1.0-4.0); LYMPHOCYTES % (AUTO) 22 % (12-44); MEAN CORPUSCULAR HEMOGLOBIN 29 PG (25-34); MEAN CORPUSCULAR HGB CONC 31 G/DL (32-36); MEAN CORPUSCULAR VOLUME 94 FL (80-99); MEAN PLATELET VOLUME 8.6 FL (7.4-10.4); MONOCYTES # (AUTO) 0.7 X 10^3 (0.0-1.0); MONOCYTES % (AUTO) 9 % (0-12); NEUTROPHILS # (AUTO) 5.3 X 10^3 (1.8-7.8); NEUTROPHILS % (AUTO) 65 % (42-75); PLATELET COUNT 441 10^3/uL (130-400); WHITE BLOOD COUNT 8.2 10^3/uL (4.3-11.0)
[2020-03-23] MEDS: PIPERACILLIN/TAZO 4.5 GM/NS 100 ML IV SCH ×6 (05:19→20:36)
[2020-03-23 05:31] LABS: CHLORIDE 106 MMOL/L (98-107); POTASSIUM 3.8 MMOL/L (3.6-5.0); SODIUM 137 MMOL/L (135-145)
[2020-03-23 05:32] LABS: CALCIUM 8.9 MG/DL (8.5-10.1)
[2020-03-23 05:33] LABS: GLUCOSE 93 MG/DL (70-105)
[2020-03-23 05:34] LABS: CARBON DIOXIDE 22 MMOL/L (21-32)
[2020-03-23 05:36] LABS: CREATININE SERUM 0.58 MG/DL (0.60-1.30); GFR ESTIMATED > 60
[2020-03-23 05:37] LABS: BUN/CREATININE RATIO 14
--- NOTE | 2020-03-23 07:28 | Pulmonary Consultation ---
History of Present Illness History of Present Illness Date Seen by Provider: Mar 23, 2020 Time Seen by Provider: 07:22 Date of Admission History of Present Illness 59yo with hx of recent extented hospitalization secondry to pna,afib, COPD presented secondary to worsening SOB, fever, and productive cough. Denies any chest pain and abdominal pain.Pt has been on recent extensive Abx. Dr. Oliveira consulted me for PNA and consideration for bronchoscopy secondary to recurrent PNA. Allergies and Home Medications Allergies Coded Allergies: No Known Drug Allergies (Verified , 07/11/09) Home Medications Digoxin 250 Mcg Tablet, 0.25 MG PO DAILY Prescribed by: LOI CORTEZ on 02/15/201450 Diltiazem HCl 300 Mg Cap.er.24h, 300 MG PO DAILY Prescribed by: LOI CORTEZ on 02/15/201450 Ferrous Sulfate 325 Mg Tablet, 325 MG PO BID WITH MEALS Prescribed by: LOI CORTEZ on 02/15/201450 Fluticasone/Salmeterol 12 Gm Hfa.aer.ad, 0 PUFF IH RTBID Prescribed by: LOI CORTEZ on 02/15/201450 Folic Acid 1 Mg Tablet, 1 MG PO DAILY Prescribed by: LOI CORTEZ on 02/15/201450 Gabapentin 100 Mg Capsule, 200 MG PO TID Prescribed by: LOI CORTEZ on 02/15/201450 Guaifenesin 600 Mg Tab.er.12h, 600 MG PO BID Prescribed by: LOI CORTEZ on 02/15/201450 Ipratropium/Albuterol Sulfate 3 Ml Ampul.neb, 3 ML INH RTQ4HR Prescribed by: LOI CORTEZ on 02/15/201450 Lactulose 20 Gm/30 Ml Solution, 10 GM PO BID PRN for CONSTIPATION-2ND LINE Prescribed by: LOI CORTEZ on 02/15/201450 Multivitamin 1 Each Tablet, 1 EACH PO DAILY, (Reported) Oxycodone HCl 5 Mg Tablet, 5 MG PO Q4HR PRN for PAIN-SEVERE (8-10) Prescribed by: LOI CORTEZ on 02/15/201450 Pantoprazole Sodium 40 Mg Tablet.dr, 40 MG PO DAILY Prescribed by: LOI CORTEZ on 02/15/201450 Rivaroxaban 20 Mg Tablet, 20 MG PO DAILY@1700 Prescribed by: LOI CORTEZ on 02/15/20 1451 Past Oelyash-Czxkcv-Wfavke Hx Past Med/Social Hx: Reviewed Nursing Past Med/Soc Hx Patient Social History Alcohol Use: Denies Use Number of Drinks Today: AA Alcohol Beverage of Choice: Beer Recreational Drug Use: No Drug of Choice: "marijuana in the 80's and 90's" Smoking Status: Never a Smoker Type Used: Cigarettes Former Smoker, Quit: Dec 06, 2019 Recent Foreign Travel: No Contact w/Someone Who Travel: No Recent Infectious Disease Expo: No Recent Hopitalizations: Yes Immunizations Up To Date Tetanus Booster (TDap): Unknown PED Vaccines UTD: No Seasonal Allergies Seasonal Allergies: Yes (hayfever) Past Medical History Surgeries: Yes (hernia repair, l ankle, l wrist, ) Orthopedic Respiratory: Yes Pneumonia, COPD Currently Using CPAP: No Currently Using BIPAP: No Cardiac: Yes Atrial Fibrillation, Deep Vein Thrombosis, Hypertension Neurological: Yes (neuralgia) Sexually Transmitted Disease: No HIV/AIDS: No Genitourinary: No Renal Failure Gastrointestinal: Yes Abdominal Hernia, Gastrointestinal Bleed Musculoskeletal: No Chronic Back Pain Endocrine: No HEENT: No (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) Tinnitis Loss of Vision: Denies Hearing Impairment: Deaf Cancer: No Psychosocial: No Integumentary: No Recent Skin Changes Blood Disorders: No Adverse Reaction/Blood Tranf: No Family Medical History Alcoholism 19 FATHER 19 MOTHER Arthritis 19 FATHER 19 MOTHER Other Conditions/Hx Review of Systems Time Seen by Provider: 07:29 Constitutional: Fever, Chills, Sweats, Weakness, Malaise, Other Eyes: No: Pain, Vision change, Conjunctivae inflammation, Eyelid inflammation, Other, Redness ENT: No: Ear pain, Ear discharge, Nose pain, Nose discharge, Nose congestion, Mouth pain, Mouth swelling, Throat pain, Throat swelling, Other Respiratory: Cough, Shortness of breath, SOB with excertion, Wheezing, Pleuritic Pain, Sputum; No: Hemoptysis Cardiovascular: Chest Pain, Palpitations, Paroxysmal Noc. Dyspnea Gastrointestinal: No: Nausea, Vomiting, Abdominal Pain, Diarrhea, Constipation, Melena, Hematochezia, Other Sepsis Event Evaluation Height, Weight, BMI Height: '" Weight: lbs. oz. kg; 20.11 BMI Method: Exam Exam Vital Signs Date Time Temp Pulse Resp B/P (MAP) Pulse Ox O2 Delivery O2 Flow Rate FiO2 03/23/20 06:26 90 Nasal Cannula 2.00 03/23/20 04:05 37.6 78 18 112/70 (84) 93 Nasal Cannula 1.50 03/23/20 01:53 90 Nasal Cannula 2.00 03/22/20 23:41 37.6 80 18 122/75 (91) 95 Nasal Cannula 1.50 03/22/20 21:23 92 Nasal Cannula 2.00 03/22/20 20:03 96 Nasal Cannula 2.00 03/22/20 19:49 Nasal Cannula 2.00 03/22/20 19:25 37.1 79 18 133/82 (99) 98 Nasal Cannula 1.50 03/22/20 18:06 37.0 77 18 125/81 (96) 96 Nasal Cannula 2.00 03/22/20 14:08 96 Nasal Cannula 2.00 03/22/20 13:48 37.0 79 96 28 03/22/20 12:50 37.0 81 18 122/78 (93) 95 Nasal Cannula 2.00 03/22/20 11:14 97 Nasal Cannula 2.00 03/22/20 08:58 Nasal Cannula 2.00 03/22/20 08:55 37.0 85 18 119/72 (88) 94 Nasal Cannula 2.00 I & O 03/23/20 07:00 Intake Total 1470 ml Output Total 1725 ml Balance -255 ml Height & Weight Height: '" Weight: lbs. oz. kg; 20.11 BMI Method: General Appearance: No Apparent Distress, Chronically ill, Thin HEENT: PERRL/EOMI, Pharynx Normal Neck: Normal Inspection, Supple Respiratory: Lungs Clear, No Respiratory Distress, Decreased Breath Sounds Cardiovascular: Regular Rate, Rhythm, No Edema, No Murmur, Normal Peripheral Pulses Capillary Refill: Less Than 3 Seconds Extremity: Normal Inspection, Non Tender, No Pedal Edema Neurologic/Psychiatric: Alert, Oriented x3, No Motor/Sensory Deficits, Normal Mood/Affect Skin: Normal Color, Warm/Dry Results Lab Laboratory Tests 03/21/20 14:15 03/22/20 03:25 03/23/20 05:10 Assessment/Plan Assessment/Plan Sepsis due to pneumonia Acute respiratory failure with hypoxia -Continue Zosyn COVID is negative -Will plan bronchoscopy tomorrow -Hold Xeralto and NPO after midnight Continue oxygen Hypertension Atrial fibrillation COPD -Cont breathing tx -oxygen JENI DENISE DO Mar 23, 2020 07:27
[2020-03-23 08:00] VITALS: BP 132/76
[2020-03-23] MEDS: SENNOSIDES 8.6 MG (SENOKOT) TAB PO SCH ×2 (08:39→20:35)
[2020-03-23] MEDS: DOCUSATE SODIUM 100 MG (COLACE) CAP PO SCH ×2 (08:39→20:35)
[2020-03-23] MEDS: ACETAMINOPHEN 325 MG TABLET PO PRN ×4 (08:42→20:36)
[2020-03-23] MEDS: LACTATED RINGERS 1,000 ML IV SCH ×2 (08:43→23:59)
--- NOTE | 2020-03-23 09:05 | Consultation-Cardiology ---
HPI-Cardiology Cardiology Consultation Date of Consultation 03/23/20 Date of Admission Time Seen by Provider: 07:29 Indication: PVD, bilateral leg pain HPI Patient is a 59 y/o male with history of PVD with thrombectomy to RLE in December 2019, recurrent pneumonia, PAF. Presented to the ER with complaints of fever, productive cough and increased shortness of breath at home for the past week. C/o chest pain with inspirations. Also c/o BLE pain and weakness. Denies any active chest pain, denies dizziness or lightheadedness. Home Medications & Allergies Allergies: Coded Allergies: No Known Drug Allergies (Verified , 07/11/09) Home Medication List Reviewed: Yes QZW-Rbutkx-Zxcxjl Hx Patient Social History Marital Status: single Alcohol Use: Denies Use Recreational Drug Use: No Drug of Choice: "marijuana in the 80's and 90's" Smoking Status: Never a Smoker Type Used: Cigarettes Recent Foreign Travel: No Recent Infectious Disease Expo: No Recent Hopitalizations: Yes Physical Abuse Screen: No Sexual Abuse: No Immunizations Up To Date Tetanus Booster (TDap): Unknown Past Medical History PAF, PVD, Recurrent pneumonia. Family Medical History Significant Family History: No Pertinent Family Hx, Other Conditions/Hx Family History: Alcoholism 19 FATHER 19 MOTHER Arthritis 19 FATHER 19 MOTHER Review of Systems-General Review of Systems Constitutional: see HPI, fever, malaise, weakness EENTM: see HPI, no symptoms reported Respiratory: see HPI, cough, dyspnea on exertion, phlegm, short of breath Cardiovascular: no symptoms reported Gastrointestinal: no symptoms reported Genitourinary: no symptoms reported Musculoskeletal: see HPI, back pain, muscle pain Skin: no symptoms reported Psychiatric/Neurological: No Symptoms Reported Reviewed Test Results Reviewed Test Results Lab Laboratory Tests 03/23/20 05:10: White Blood Count 8.2, Red Blood Count 3.30L, Hemoglobin 9.7L, Hematocrit 31L, Mean Corpuscular Volume 94, Mean Corpuscular Hemoglobin 29, Mean Corpuscular Hemoglobin Concent 31L, Red Cell Distribution Width 15.0H, Platelet Count 441H, Mean Platelet Volume 8.6, Neutrophils (%) (Auto) 65, Lymphocytes (%) (Auto) 22, Monocytes (%) (Auto) 9, Eosinophils (%) (Auto) 5, Basophils (%) (Auto) 0, Neutrophils # (Auto) 5.3, Lymphocytes # (Auto) 1.8, Monocytes # (Auto) 0.7, Eosinophils # (Auto) 0.4H, Basophils # (Auto) 0.0, Sodium Level 137, Potassium Level 3.8, Chloride Level 106, Carbon Dioxide Level 22, Anion Gap 9, Blood Urea Nitrogen 8, Creatinine 0.58L, Estimat Glomerular Filtration Rate > 60, BUN/Creatinine Ratio 14, Glucose Level 93, Calcium Level 8.9 Microbiology 03/21/20 Blood Culture - Preliminary, Resulted No growth Physical Exam Physical Exam Vital Signs Vital Signs - First Documented 03/21/20 03/21/20 03/22/20 14:04 18:00 13:48 Temp 37.4 Pulse 103 Resp 18 B/P (MAP) 134/67 (89) Pulse Ox 95 O2 Delivery Room Air O2 Flow Rate 2.00 FiO2 28 Capillary Refill : Less Than 3 Seconds Height, Weight, BMI Height: '" Weight: lbs. oz. kg; 20.11 BMI Method: General Appearance: No Apparent Distress, Chronically ill, Thin Eyes: Bilateral Eye Normal Inspection, Bilateral Eye PERRL, Bilateral Eye EOMI HEENT: PERRL/EOMI, Pharynx Normal Neck: Normal Inspection, Supple Respiratory: Lungs Clear, No Respiratory Distress, Decreased Breath Sounds Cardiovascular: Regular Rate, Rhythm, No Edema, No Murmur, Normal Peripheral Pulses Gastrointestinal: Normal Bowel Sounds, Non Tender, Soft Extremity: Normal Capillary Refill, Normal Inspection, Non Tender, No Pedal Edema; No Pedal Edema; Other (right foot 2+ DP, left diminished but present DP) Neurologic/Psychiatric: Alert, Oriented x3, No Motor/Sensory Deficits, Normal Mood/Affect Skin: Normal Color, Warm/Dry A/P-Cardiology Admission Diagnosis Pneumonia Chest pain PVD Anemia Assessment/Plan Recurrent pneumonia, patient presented with fever, increased dyspnea. Has had recurrent pneumonia since December 2019. Currently on antibiotic. COVID-19 negative. Planning for bronchoscopy with Dr. Eugene tomorrow. PVD, history of acute limb ischemia due to embolization probably from atrial fibrillation. Angiogram was carried out December 2019 showing total occlusion with thrombus in the distal SFA, received thrombolytics and reestablished flow. Xarelto currently on hold in preparation for bronchoscopy tomorrow. C/o BLE th igh and calf pain. Right foot with 2+ DP, left foot with diminished but present DP/PT pulse. I will evaluate TOÑITO's. Chest pain, nonspecific etiology, cardiac catheterization carried out on January 30, 2020 showing mild to moderate coronary artery disease nonobstructive disease. Chest pain is unlikely to be cardiac, continue to monitor Anemia, managed by primary care team, H&H is monitored, EGD done on previous admission with Dr. Wright reported gastritis and hiatal hernia. 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 Wright, recovering well, continue to monitor. PAF with RVR on 01/24/20, continue to monitor. Xarelto currently on hold for bronchoscopy. 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 Has been on disability Tobaccoism, stopped smoking in December 2019, advised to continue to refrain Thank you for allowing us to participate in the management of Mr. Soto. This is Stacie Vo PA-C, as a scribe for Dr. Watson. Patient was seen and evaluated with Stacie, examination performed, management plan was discussed, agree with the current scribed note, I made few changes to the note using Italic font This is a 59-year-old gentleman with extensive history as described above. Admitted with recurrent pneumonia with fever and dyspnea and cough. Chest x-ray showed infiltrate. Receiving antibiotics. Still having recurrent limb pain. Having bilateral lower extremity pain. Had palpable dorsalis pedis pulse. I will evaluate TOÑITO to rule out any significant obstructive disease. His initial disease was due to distal embolization probably secondary to atrial fibrillation. He is maintained on oral antic oagulation at this Clinical Quality Measures DVT/VTE Risk/Contraindication: Risk Factor Score Per Nursin RFS Level Per Nursing on Admit: 4+=Very High STACIE PATEL Mar 23, 2020 09:05 THERESA WATSON MD Mar 23, 2020 09:34
[2020-03-23] MEDS ORDERED: IOHEXOL 350 MG/ML 100 ML (OMNIPAQUE 350) VIAL IV ONE (09:30)
[2020-03-23] MEDS ORDERED: HOLD METFORMIN - RECEIVED CONTRAST 20 ML VIAL IV SCH (09:30)
[2020-03-23] MEDS ORDERED: CATHETER FLUSH 10 ML SYR IV PRN (09:30)
[2020-03-23] MEDS ORDERED: NS 100 ML (IVPB) BAG IV ONE (09:30)
--- NOTE | 2020-03-23 09:45 | Diagnostic Imaging Report ---
INDICATION: Shortness of air. TECHNIQUE: Single view chest at 9:26 AM. CORRELATION STUDY: 03/21/2020. FINDINGS: Chronic changes about the lung parenchyma with findings of COPD. Bilateral pulmonary infiltrates are present and appear more consolidated at the left mid to upper lung field. Persistent consolidation at the right lung base and to a lesser degree the left lung base. Asymmetric nodular-like density of the right upper lung, stable. The heart size and mediastinum are stable. IMPRESSION: Bilateral pulmonary infiltrates superimposed on advanced emphysematous lung parenchyma persist. Consolidation, particularly in the left upper lobe, appears increased from prior. Dictated by: Dictated on workstation # [id number]
--- NOTE | 2020-03-23 09:49 | Occupational Therapy Eval ---
OT Evaluation-General/PLF Medical Diagnosis Admission Date Mar 21, 2020 at 16:16 Medical Diagnosis: PNA Onset Date: Mar 21, 2020 Therapy Diagnosis Therapy Diagnosis: decreased ADL status Precautions Precautions/Isolations: Contact Isolation, Droplet Isolation Weight Bear Status Weight Bearing Restriction: Weight Bearing/Tolerated Location Restriction: LE Bilateral Referral Physician: Roxanne Gonzalez Reason: Evaluation/Treatment Medical History Pertinent Medical History: Atrial Fib, Alcoholism, COPD, HTN, Renal Insufficiency, Smoking, TBI Additional Medical History PAD Current History pt presents with SOB. He has had recent hospitalizations for recurrent PNA. Social History Home: Single Level Current Living Status: Other Family (brother) Entry Into Home: Stairs With Railing Steps Into Home: 2 ADL-Prior Level of Function SCALE: Activities may be completed with or without assistive devices. 5-Grdoddcmdm-upovpwi completes the activity by him/herself with no assistance from a helper. 5-Set-up or Clean-up Assistance-helper sets up or cleans up; patient completes activity. Addison assists only prior to or following the activity. 4-Supervision or Touching Assistance-helper provides verbal cues and/or touching/steadying and/or contact guard assistance as patient completes activity. Assistance may be provided throughout the activity or intermittently. 3-Partial/Moderate Assistance-helper does LESS THAN HALF the effort. Addison lifts, holds or supports trunk or limbs, but provides less than half the effort. 2-Substantial/Maximal Assistance-helper does MORE THAN HALF the effort. Addison lifts or holds trunk or limbs and provides more than half the effort. 7-Asgiwqvoi-npnbgw does ALL the effort. Patient does none of the effort to complete the activity. Or, the assistance of 2 or more helpers is required for the patient to complete the activity. If activity was not attempted, code reason: 7-Patient Refused. 9-Not Applicable-not attempted and the patient did not perform the activity before the current illness, exacerbation or injury. 10-Not Attempted due to Environmental Limitations-(lack of equipment, weather restraints, etc.). 88-Not Attempted due to Medical Conditions or Safety Concerns. ADL PLOF Comments Pt reports he has been living with his brother. He has been able to complete ADLs without assistance including dressing and showering. He states he has been using a walker for functional mobility independently. Pt has a tub/shower with a shower chair that he has been using to complete bathign. Self Care: Independent Functional Cognition: Independent DME/Equipment: Bath Chair, Tub/Shower DME/Equipment Comments walker OT Current Status Subjective Pt laying in bed, agreeable to OT evaluation/tx. Mental Status/Objective Patient Orientation: Person, Place, Time, Situation Attachments: IV, Oxygen Current Glasses/Contacts: Yes (reading) Hearing Aids: No Dentures/Partials: No Hand Dominance: Left Upper Extremity ROM WFL Upper Extremity Coordination WFL Upper Extremity Sensation pt reports occasional numbness in his R hand. Upper Extremity Strength grossly 3+/5 ADL-Treatment Shower/Bathe Self (QC): 4 (Sponge bath complete at bed level. Pt able to wash all parts with SBA) Lower Body Dressing (QC): 4 (SBA at bed level, pt doffed/donned sweat pants.) On/Off Footwear (QC): 4 (SBA at bed level, pt able to doff/krysta LLE socks, no sock worn on R foot on this date.) Other Treatments Pt laying in bed, agreeable to OT evaluation/tx on this date. OT educated pt on purpose/benefits of OT and pt provided information about PLOF and home set up. Pt declined OOB activities on this date, agreeing to completing sponge bath at bed level. He doffed long sleeve shirt with mod A due to IV lines. Pt then washed upper body. He did not don a clean shirt due to IV lines attached, pt reports he would prefer to put it on later. Pt then doffed sock and pants at bed level, completed lower body washing, and then donned clean pants/sock. Pt required rest breaks during session due to reports of SOB, OT educated pt to take rest breaks as he needs to, he verbalized understanding. Post OT tx, pt laying in bed, call light in reach and all needs met with staff present to take X-ray. Education OT Patient Education: Correct positioning, Energy conservation, Modified ADL techniques, Progress toward Goal/Update tx plan, Purpose of tx/functional ac tivities, Rehab process Teaching Recipient: Patient Teaching Methods: Discussion Response to Teaching: Verbalize Understanding OT Shipmaster Goals Shipmaster Goals Time Frame: Apr 02, 2020 Eating (QC): 6 Oral Hygiene (QC): 6 Toileting Hygiene (QC): 6 Shower/Bathe Self (QC): 4 Upper Body Dressing (QC): 5 Lower Body Dressing (QC): 4 On/Off Footwear (QC): 5 1=Demonstrate adherence to instructed precautions during ADL tasks. 2=Patient will verbalize/demonstrate understanding of assistive devices/modific ations for ADL. 3=Patient will improve strength/tolerance for activity to enable patient to perform ADL's. OT Education/Plan Problem List/Assessment Assessment: Decreased Activ Tolerance, Decreased UE Strength, Impaired I ADL's, Impaired Self-Care Skills Discharge Recommendations Plan/Recommendations: Continue POC Therapy Discharge Recommendati: Home & Family Treatment Plan/Plan of Care Treatment,Training & Education: Yes Patient would benefit from OT for education, treatment and training to promote independence in ADL's, mobility, safety and/or upper extremity function for ADL's. Plan of Care: ADL Retraining, Functional Mobility, UE Funct Exercise/Act Treatment Duration: Apr 02, 2020 Frequency: 5 times per week Estimated Hrs Per Day: .25 hour per day Rehab Potential: Fair Time/GCodes Start Time: 09:05 Stop Time: 09:25 Total Time Billed (hr/min): 20 Billed Treatment Time 1, ASH CASTORENA OT Mar 23, 2020 09:49
--- NOTE | 2020-03-23 10:26 | Physical Therapy Evaluation ---
PT Evaluation-General Medical Diagnosis Admission Date Mar 21, 2020 at 16:16 Medical Diagnosis: pneumonia Onset Date: Mar 21, 2020 Therapy Diagnosis Therapy Diagnosis: debility Precautions Precautions/Isolations: Contact Isolation, Droplet Isolation Weight Bear Status Right Lower Extremity: Right Weight Bearing/Tolerated Left Lower Extremity: Left Weight Bearing/Tolerated Referral Physician: Roxanne Reason for Referral: Evaluation/Treatment Medical History Pertinent Medical History: Atrial Fib, Alcoholism, COPD, HTN, Renal Insufficiency, Smoking, TBI Current History EMS secondary to bilateral LE pain/SOA/CP Reviewed History: Yes Social History Home: Single Level Current Living Status: Other Family (brother) Entry Into Home: Stairs With Railing PT Steps Into Home: 2 Prior Prior Level of Function SCALE: Activities may be completed with or without assistive devices. 4-Dqefnhtulx-ykpzgju completes the activity by him/herself with no assistance from a helper. 5-Set-up or Clean-up Assistance-helper sets up or cleans up; patient completes activity. Hudgins assists only prior to or following the activity. 4-Supervision or Touching Assistance-helper provides verbal cues and/or touching/steadying and/or contact guard assistance as patient completes activity. Assistance may be provided throughout the activity or intermittently. 3-Partial/Moderate Assistance-helper does LESS THAN HALF the effort. Hudgins lifts, holds or supports trunk or limbs, but provides less than half the effort. 2-Substantial/Maximal Assistance-helper does MORE THAN HALF the effort. Hudgins lifts or holds trunk or limbs and provides more than half the effort. 0-Cnjhybqso-okbngi does ALL the effort. Patient does none of the effort to complete the activity. Or, the assistance of 2 or more helpers is required for the patient to complete the activity. If activity was not attempted, code reason: 7-Patient Refused. 9-Not Applicable-not attempted and the patient did not perform the activity before the current illness, exacerbation or injury. 10-Not Attempted due to Environmental Limitations-(lack of equipment, weather restraints, etc.). 88-Not Attempted due to Medical Conditions or Safety Concerns. Bed Mobility: 6 Transfers (B,C,W/C): 6 Gait: 6 Indoor Mobility (Ambulation): Independent Prior Devices Use: Walker PT Evaluation-Current Subjective Patient agrees to PT. C/o 10/10 bilateral LE pain. Pain Numeric Pain Scale: 10-Worst Possible Pain Location: Right, Left, Lower Location Body Site: Calf Pain Description: Chronic Objective Patient Orientation: Normal For Age Attachments: Oxygen ROM/Strength ROM Lower Extremities bilateral LE WFL Strength Lower Extremities 4-/5 grossly bilateral LE Integumentary/Posture Integumentary refer to nursing notes Bowel Incontinence: No Bladder Incontinence: No Posture WFL Neuromuscular (Tone, Coordination, Reflexes) grossly intact Sensory Vision: Functional Hearing: Impaired Hand Dominance: Left Sensation Right Lower Extremit: Impaired Sensation Left Lower Extremity: Impaired Transfers Roll Left to Right (QC): 6 Sit to Lying (QC): 6 Lying to Sitting/Side of Bed(Q: 6 Sit to Stand (QC): 6 Chair/Hwd-ai-Xevao Xfer(QC): 6 Gait Does the Patient Walk?: Yes Mode of Locomotion: Walk Anticipated Mode of Locomotion: Walk Walk 10 feet (QC): 6 Distance: 30' x 2 Gait Assistive Device: FWW Comments/Gait Description patient agrees to ambulating in room only and required 1 seated recovery period due to bilateral LE pain. Balance Sitting Static: Normal Sitting Dynamic: Normal Standing Static: Normal Standing Dynamic: Normal Assessment/Needs 59 y.o. male, will be seen short term by skilled PT to address functional mobility to ensure safe return to home at maximum LOF. Rehab Potential: Guarded PT Rn Military Goals Rn Military Goals PT Rn Military Goals Time Frame: Apr 02, 2020 Roll Left & Right (QC): 6 Sit to Lying (QC): 6 Lying-Sitting on Side/Bed(QC): 6 Sit to Stand (QC): 6 Chair/Wna-kp-Zmxtk Xfer(QC): 6 Toilet Transfer (QC): 6 Does the Patient Walk: Yes Walk 10 feet (QC): 6 Walk 50ft with 2 Turns (QC): 6 Walk 150 ft (QC): 6 PT Plan Problem List Problem List: Activity Tolerance Treatment/Plan Treatment Plan: Continue Plan of Care Treatment Plan: Education, Functional Activity Lorena, Functional Strength, Gait, Safety, Therapeutic Exercise Treatment Duration: Apr 02, 2020 Frequency: 6 times per week Estimated Hrs Per Day: .25 hour per day Patient and/or Family Agrees t: Yes Time/GCodes Time In: 945 Time Out: 956 Total Billed Treatment Time: 11 Total Billed Treatment 1 visit EVMod 11 min IDRIS ONEIL PT Mar 23, 2020 10:26
--- NOTE | 2020-03-23 11:37 | Progress Note - Hospitalist ---
Subjective HPI/CC On Admission Date Seen by Provider: Mar 23, 2020 Time Seen by Provider: 11:00 Moshe Soto is a 59-year-old male with past medical history of hypertension, atrial fibrillation on Xarelto, COPD, peripheral arterial disease, who presented with shortness of breath. He has been hospitalized multiple times recently with recurrent pneumonia. He reports having fever at home. He reports shortness of breath and cough productive of sputum. He denies any chest pain. He denies any abdominal pain, nausea, or vomiting. He has been having back pain which radiates down his legs bilaterally. He also reports calf and thigh pain with ambulation. Subjective/Events-last exam He reports continued leg pain. He still feels short of breath. He denies any fevers or chills. He has been eating and drinking well. He was up with physical therapy earlier. Focused Exam Lactate Level 03/21/20 14:15: Lactic Acid Level 1.28 Objective Exam Vital Signs Vital Signs Date Time Temp Pulse Resp B/P (MAP) Pulse Ox O2 Delivery O2 Flow Rate FiO2 03/23/20 10:28 91 Nasal Cannula 2.00 03/23/20 08:00 36.7 84 18 132/76 (94) 03/22/20 13:48 28 Capillary Refill : Less Than 3 Seconds General Appearance: No Apparent Distress, Chronically ill, Thin HEENT: PERRL/EOMI, Pharynx Normal Neck: Normal Inspection, Supple Respiratory: Lungs Clear, No Respiratory Distress, Decreased Breath Sounds Cardiovascular: Regular Rate, Rhythm, No Edema, No Murmur Gastrointestinal: Normal Bowel Sounds, Non Tender, Soft Extremity: Normal Inspection, Non Tender, No Pedal Edema Neurologic/Psychiatric: Alert, Oriented x3, No Motor/Sensory Deficits, Normal Mood/Affect Skin: Normal Color, Warm/Dry Results/Procedures Lab Laboratory Tests 03/23/20 05:10 Patient resulted labs reviewed. Imaging: Reviewed Imaging Report Assessment/Plan Assessment and Plan Assess & Plan/Chief Complaint Sepsis due to pneumonia Acute respiratory failure with hypoxia Continue Zosyn COVID negative Continue supplemental oxygen Pulmonology consulted, appreciate assistance Planning for bronchoscopy tomorrow with recurrent pneumonias CT chest today Hold Xarelto Atrial fibrillation Hold Xarelto for bronchoscopy Leg pain Likely claudication Cardiology consulted, appreciate assistance Ultrasound ordered Hypertension COPD Continue home meds DVT prophylaxis: Anticoagulation held for procedure Diagnosis/Problems Diagnosis/Problems (1) Sepsis due to pneumonia Status: Acute (2) HTN (hypertension) Status: Chronic (3) Paroxysmal atrial fibrillation Status: Chronic (4) Acute respiratory failure with hypoxia Status: Acute (5) COPD (chronic obstructive pulmonary disease) Status: Chronic Clinical Quality Measures DVT/VTE Risk/Contraindication: Risk Factor Score Per Nursin RFS Level Per Nursing on Admit: 4+=Very High CLAU DUONG MD Mar 23, 2020 11:37
--- NOTE | 2020-03-23 11:55 | Diagnostic Imaging Report ---
PROCEDURE: CT chest with contrast only. TECHNIQUE: Multiple contiguous axial images were obtained through the chest after administration of intravenous contrast. Auto Exposure Controls were utilized during the CT exam to meet ALARA standards for radiation dose reduction. INDICATION: Post amputation at the right foot. Shortness of air, pneumonia. CORRELATION STUDY: 02/28/2020. FINDINGS: The heart size is within normal limits. There is scattered prominent coronary artery calcification. The ascending aorta is mildly prominent at 3.9 cm. A few mildly prominent but nonpathologically enlarged mediastinal lymph nodes are again demonstrated. The visualized portions of the thyroid gland appear unremarkable. Rather severe emphysematous change about the lung parenchyma is noted. Scattered areas of likely fibrosis are present. Scattered areas of consolidation are again demonstrated in the right lung slightly more pronounced along the right middle lobe as well as the posterior dependent right lower lobe. These areas are stable to perhaps minimally improved. Small right pleural effusion. In the central aspect of the right upper lobe is a somewhat more focal slightly spiculated density measuring approximately 11 mm; however, this was not definitively present on the prior study and may reflect a small area of pneumonia as opposed to a true mass. In the left lung, more focal consolidation is noted around the area of cavitation in the left upper lobe. The overall amount of infiltrate through the left lung has improved with the exception around the cavitary region which appears slightly more consolidated and dense. There are several scattered somewhat more focal nodular densities within the left lung. Trace left pleural effusion. The visualized portion of the upper abdomen demonstrates no acute findings. IMPRESSION: 1. Severe fibroemphysematous change about the lung parenchyma. 2. Scattered areas of asymmetric infiltrate are again demonstrated throughout both lung hugo. In general, the majority of the findings do appear to be somewhat improved. 3. There is, however, a more focal area of cavitary process in the left upper lobe. Some increasing surrounding consolidation in this area is noted. 4. There are several asymmetric and more focal somewhat spiculated nodular densities within both lung hugo. Some of these areas do appear to be new and/or changed from the prior study favoring superimposed infectious as opposed to a neoplastic process; however, continued followup imaging is recommended. The possibility of underlying neoplasm could easily be present and partially obscured by the chronic and acute changes in the lung hugo. Dictated by: Dictated on workstation # [id number]
[2020-03-23] MEDS ORDERED: FOLIC ACID PO (11:56)
[2020-03-23] MEDS ORDERED: ALPR0.5T PO (11:56)
[2020-03-23] MEDS ORDERED: FLUT12AE4 IH (11:56)
[2020-03-23] MEDS ORDERED: FOLIC (11:56)
[2020-03-23] MEDS ORDERED: IPRA3AMP31 IH (11:56)
[2020-03-23] MEDS ORDERED: PANT40TA2 PO (11:56)
[2020-03-23] MEDS ORDERED: FERR325T18 PO (11:56)
[2020-03-23] MEDS ORDERED: GABA-486 PO (11:56)
[2020-03-23] MEDS ORDERED: ONDN4T PO (11:56)
[2020-03-23] MEDS ORDERED: OXYC5TAB96 PO (11:56)
[2020-03-23] MEDS ORDERED: DIGO250T3 PO (11:56)
[2020-03-23] MEDS ORDERED: DILT300C26 PO (11:56)
--- NOTE | 2020-03-23 11:57 | NUR ---
SPOKE WITH THE PT- HE WANTED TO ME CALL HIS BROTHER GATO SINCE HE TAKES CARE OF THE PTS MEDS. I CALLED GATO AND NICKY TO COMPLETE THE MED REC THE FOLLOWING ARE FILL DATES: 02-21-2020 DIGOXIN 250MCG #30/30DS 02-21-2020 CARTIA XT 300MG #30/30DS 02-21-2020 PANTOPRAZOLE 40MG #30/30DS 02-21-2020 GABAPENTIN 100MG #180/30DS 02-21-2020 FOLIC ACID #30/30DS 02-21-2020 FERROUS SULFATE 325MG #60-DIRECTIONS ARE 1 TAB BID HOWEVER PT IS TAKING 1 DAILY 02-24-2020 ADVAIR 115/21 #1/30DS 03-11-2020 ZOFRAN 4MG #30 03-16-2020 OXYCODONE 5MG #42 03-18-2020 DUONEB #1180 VIA;S 03-18-2020 XANAX 0.5MG #30 PT GETS XARELTO 20MG A SAMPLE FROM DR. MAYNARD OFFICE- WHEN I CALLED THEY COULD NOT GIVE ME AN EXACT DATE OF WHEN THE PT PICKED IT UP BUT SAYS IT WAS REQUESTED ON 02-23-2020 FOR A 2 WEEK SUPPLY. WHEN I SPOKE WITH GATO HE SAYS HE WAS PICKED UP RECENTLY OTC MEDS: [employer]
[2020-03-23 12:00] VITALS: BP 113/77
--- NOTE | 2020-03-23 12:10 | Physician Query Clarification ---
PQ-Further Specificity Admission/Discharge Admission Date: Mar 21, 2020 at 16:16 Discharge Date: The medical record reflects the following clinical scenario: Dr. Duong, History/Risk Factors: Sepsis Pneumonia Clinical Findings: WBC 14.2, T 37.4, P 103, Resp 18, BP 134/67, pulse ox 95%, Lactic acid 1.28. Treatment: Supplemental oxygen 2L, IV Zosyn, Albuterol inhalation therapy. Acute respiratory failure with hypoxia is documented in your H&P and in Dr. Eugene's consult. Question: Can you further specify per the clinical indicators above? Please document a response in the Progress Notes or Discharge Summary. 1. Acute respiratory failure due to/related to sepsis. (Severe sepsis) 2. Acute respiratory failure not related to sepsis. 3. Other, with explanation of the clinical findings. 4. Clinically undetermined, no explanation for the clinical findings. PHYSICIAN RESPONSE Can you specify per above: 1 Please remember a lack of response to the above will prompt a phone page by CDI/Coding staff. In responding to this query, please exercise your independent professional judgment. The purpose of this communication is to more accurately reflect the complexity of your patients condition. The fact that a question is asked does not imply that any particular answer is desired or expected. Thank you for your timely response to this clarification. Requestors name: Nabila Deras [facility] Phone # ext [phone] or [phone] THIS PHYSICIAN QUERY FORM IS A PERMANENT PART OF THE MEDICAL RECORD NABILA DERAS Mar 23, 2020 12:10 CLAU DUONG MD Mar 23, 2020 18:07
--- NOTE | 2020-03-23 13:24 | NUR ---
CM/SS visited with patient for discharge planning. The patient stated that he is "not doing too well today" due to having pain in his legs and Pneumonia. He reports he thinks he has blood clots again and will have an ultra sound today to find out. He states that he was doing well when he first got home from the hospital. The patient states he was able to walk around the house with his walker but then he started coming down with a fever and cough. Home Health: He is set up with [facility]. DME: The patient receives his oxygen and other medical equipment from [facility] Patient reports he is still living at his brother [facility] and believes all his needs are being met. CM/SS will continue to follow patient for discharge planning.
--- NOTE | 2020-03-23 15:52 | Diagnostic Imaging Report ---
INDICATION: Bilateral leg pain and peripheral vascular disease. FINDINGS: Segmental pressures were obtained in bilateral lower extremities. Ankle-brachial index on the right is 1.22 and on the left 1.22. IMPRESSION: Normal ankle brachial indices in bilateral lower extremities. Dictated by: Dictated on workstation # [id number]
[2020-03-23 15:59] VITALS: BP 119/63
[2020-03-23 20:01] VITALS: BP 116/59
[2020-03-24] VITALS (13 sets, daily range): BP systolic 102–118; BP diastolic 55–71
[2020-03-24] MEDS: ALBUTEROL/IPRATROP (COMBIVENT RESPIMAT) 4 GM INHALER IH SCH (02:32)
[2020-03-24] MEDS: PIPERACILLIN/TAZO 4.5 GM/NS 100 ML IV SCH ×2 (05:38)
[2020-03-24] MEDS: ACETAMINOPHEN 325 MG TABLET PO PRN (05:39)
[2020-03-24 06:27] LABS: BASOPHILS % (AUTO) 0 % (0-10); EOSINOPHILS # (AUTO) 0.5 10^3/uL (0.0-0.3); EOSINOPHILS % (AUTO) 5 % (0-10); HEMATOCRIT 32 % (40-54); HEMOGLOBIN 9.9 G/DL (13.3-17.7); LYMPHOCYTES # (AUTO) 1.7 X 10^3 (1.0-4.0); LYMPHOCYTES % (AUTO) 18 % (12-44); MEAN CORPUSCULAR HEMOGLOBIN 30 PG (25-34); MEAN CORPUSCULAR HGB CONC 31 G/DL (32-36); MEAN CORPUSCULAR VOLUME 94 FL (80-99); MONOCYTES # (AUTO) 0.7 X 10^3 (0.0-1.0); MONOCYTES % (AUTO) 7 % (0-12); NEUTROPHILS # (AUTO) 6.4 X 10^3 (1.8-7.8); NEUTROPHILS % (AUTO) 69 % (42-75); PLATELET COUNT 443 10^3/uL (130-400); RED CELL DISTRIBUTION WIDTH 14.9 % (10.0-14.5); WHITE BLOOD COUNT 9.4 10^3/uL (4.3-11.0)
[2020-03-24 06:47] LABS: CHLORIDE 106 MMOL/L (98-107); POTASSIUM 4.1 MMOL/L (3.6-5.0); SODIUM 139 MMOL/L (135-145)
[2020-03-24 06:49] LABS: CALCIUM 9.2 MG/DL (8.5-10.1); GLUCOSE 88 MG/DL (70-105)
[2020-03-24 06:50] LABS: CARBON DIOXIDE 23 MMOL/L (21-32)
[2020-03-24 06:53] LABS: CREATININE SERUM 0.63 MG/DL (0.60-1.30)
[2020-03-24 06:54] LABS: BUN/CREATININE RATIO 14
[2020-03-24 06:55] LABS: GFR ESTIMATED > 60
--- NOTE | 2020-03-24 07:04 | NUR ---
Patient left floor for bronchoscopy. will return in one hour
[2020-03-24] MEDS ORDERED: NS IV 500 ML 500 ML ONE (07:16)
[2020-03-24] MEDS ORDERED: NS IV 500 ML 500 ML IV PRN (07:16)
--- NOTE | 2020-03-24 07:21 | Pulmonary Progress Note ---
Subjective Time Seen by a Provider: 07:19 Subjective/Events-last exam Plan is for bronchoscopy today. Sepsis Event Evaluation Height, Weight, BMI Height: '" Weight: lbs. oz. kg; 20.11 BMI Method: Focused Exam Lactate Level 03/21/20 14:15: Lactic Acid Level 1.28 Exam Exam Vital Signs Date Time Temp Pulse Resp B/P (MAP) Pulse Ox O2 Delivery O2 Flow Rate FiO2 03/24/20 04:00 37.2 79 18 115/66 (82) 93 Nasal Cannula 1.50 03/24/20 02:32 91 Nasal Cannula 2.00 03/24/20 00:00 36.9 73 18 110/67 (81) 94 Nasal Cannula 1.50 03/23/20 21:07 91 Nasal Cannula 2.00 03/23/20 20:01 37.0 70 16 116/59 (78) 94 Nasal Cannula 1.50 03/23/20 20:00 Nasal Cannula 2.00 03/23/20 18:29 92 Nasal Cannula 2.00 03/23/20 15:59 36.6 73 18 119/63 (81) 94 Nasal Cannula 1.50 03/23/20 14:37 90 Nasal Cannula 2.00 03/23/20 12:00 36.6 78 18 113/77 (89) 96 Nasal Cannula 1.50 03/23/20 10:28 91 Nasal Cannula 2.00 03/23/20 08:00 91 Nasal Cannula 2.00 03/23/20 08:00 36.7 84 18 132/76 (94) 95 Nasal Cannula 1.50 I & O 03/24/20 07:00 Intake Total 2640 ml Output Total 2030 ml Balance 610 ml Height & Weight Height: '" Weight: lbs. oz. kg; 20.11 BMI Method: General Appearance: Chronically ill, Mild Distress, Thin HEENT: PERRL/EOMI, Pharynx Normal Neck: Normal Inspection, Supple Respiratory: Accessory Muscle Use, Decreased Breath Sounds, Rhonci Cardiovascular: Regular Rate, Rhythm, No Edema, No Murmur Capillary Refill: Less Than 3 Seconds Extremity: Normal Inspection, Non Tender, No Pedal Edema Neurologic/Psychiatric: Alert, Oriented x3, No Motor/Sensory Deficits, Normal Mood/Affect Skin: Normal Color, Warm/Dry Results Lab Laboratory Tests 03/23/20 05:10 03/24/20 05:55 Assessment/Plan Assessment/Plan Sepsis due to recurrent pneumonia r/o endobronchial mass -Plan for bronch -CT of chest reviewed Acute respiratory failure with hypoxia -Continue Zosyn COVID is negative -Will plan bronchoscopy this AM with percepta Continue oxygen Hypertension Atrial fibrillation severe COPD -Cont breathing tx -oxygen JENI DENISE DO Mar 24, 2020 07:21
[2020-03-24] MEDS ORDERED: MIDAZOLAM 5 MG/5 ML (VERSED) VIAL ONE (07:27)
[2020-03-24] MEDS ORDERED: fentaNYL INJECTION 100 MCG/2 ML AMP ONE ×2 (07:27→08:04)
[2020-03-24] MEDS ORDERED: NALOXONE 0.4 MG/ML 1 ML (NARCAN) VIAL IVP PRN (07:30)
[2020-03-24] MEDS ORDERED: fentaNYL INJECTION 100 MCG/2 ML AMP IVP ONE (07:30)
[2020-03-24] MEDS ORDERED: FLUMAZENIL (ROMAZICON) 0.1 MG/ML 5 ML VIAL INJ PRN (07:30)
--- NOTE | 2020-03-24 07:30 | NUR ---
PT OFF FLOOR FOR BRONCH --
[2020-03-24] MEDS: MIDAZOLAM 5 MG/5 ML (VERSED) VIAL IV PRN ×4 (07:46→08:00)
--- NOTE | 2020-03-24 08:37 | NUR ---
PT BACK TO FLOOR -- THIS RN WAS IN RM 419 AND [facility] TAPE EDGE MACHINE OPERATOR CAME IN RM AND GAVE THIS RN REPORT FOR [phone]
--- NOTE | 2020-03-24 08:47 | Pulmonary Procedures ---
Pulmonary Procedures Date of Procedure Date of Service: Mar 24, 2020 Bronch Bronchoscopy with JOHN bronchoalveolar lavage (BAL), Bilateral washes and, transbronchial JOHN brushes. De Ruyter of semaj. Preop DX persistent JOHN infiltrate and lung nodules Postop DX: same (No endobronchial mass) Complications: none After informed consent obtained and formal time out pt was sedated using Fentanyl and Versed. Bronchoscope was advanced through the nare and vocal cords. 1% lidocaine was used to anesthetize vocal cords, epiglottis, semaj, and left/right main stem bronchus. An anatomical tour was undertaken down to the segmental bronchi bilaterally. No endobronchial lesions noted. Bronchoscopy with JOHN bronchoalveolar lavage (BAL), Bilateral washes and, transbronchial JOHN brushes. De Ruyter of semaj. were obtained. Pt tolerated procedure well. No complications noted. Stat CXR is pending. JENI DENISE DO Mar 24, 2020 08:47
[2020-03-24] MEDS: SENNOSIDES 8.6 MG (SENOKOT) TAB PO SCH (09:00)
[2020-03-24] MEDS: DOCUSATE SODIUM 100 MG (COLACE) CAP PO SCH (09:00)
--- NOTE | 2020-03-24 09:25 | Occupational Ther Daily Note ---
OT Current Status-Daily Note Subjective Pt laying in bed, stating he is thirsty and hungry after his procedure this AM. This OT talked with nurse who states pt is OK to have water at this time. Pt reports coughing/spitting up blood after his procedure, OT notified pt's nurse. Mental Status/Objective Patient Orientation: Normal For Age Attachments: Oxygen ADL-Treatment Therapy Code Descriptions/Definitions Functional [place] Measure: 0=Not Assessed/NA 4=Minimal Assistance 1=Total Assistance 5=Supervision or Setup 2=Maximal Assistance 6=Modified [place] 3=Moderate Assistance 7=Complete IndependenceSCALE: Activities may be completed with or without assistive devices. 4-Fyrcvpftur-shujosq completes the activity by him/herself with no assistance from a helper. 5-Set-up or Clean-up Assistance-helper sets up or cleans up; patient completes activity. [place] assists only prior to or following the activity. 4-Supervision or Touching Assistance-helper provides verbal cues and/or touching/steadying and/or contact guard assistance as patient completes activity . Assistance may be provided throughout the activity or intermittently. 3-Partial/Moderate Assistance-helper does LESS THAN HALF the effort. [place] lifts, holds or supports trunk or limbs, but provides less than half the effort. 2-Substantial/Maximal Assistance-helper does MORE THAN HALF the effort. [place] lifts or holds trunk or limbs and provides more than half the effort. 5-Ksmzkfnan-kfdlxs does ALL the effort. Patient does none of the effort to complete the activity. Or, the assistance of 2 or more helpers is required for the patient to complete the activity. If activity was not attempted, code reason: 7-Patient Refused. 9-Not Applicable-not attempted and the patient did not perform the activity before the current illness, exacerbation or injury. 10-Not Attempted due to Environmental Limitations-(lack of equipment, weather restraints, etc.). 88-Not Attempted due to Medical Conditions or Safety Concerns. Oral Hygiene (QC): 5 (set up at tray table, pt able to open toothbrush and toothpaste, and squeeze paste onto brush. Pt then able to brush his teeth.) Other Treatment Pt laying in bed, stating he is thirsty/hungry. He had a procedure earlier this AM which he was NPO prior to. This OT talked with pt's nurse who states pt is OK to have water at this time. OT handed pt water cup and he was able to bring it to his mouth and take a drink IND. Pt then agreeable to OT tx with focus on ADLs. Staff present to take X-ray as OT gathered ADL supplies. OT returned to pt's room where x-ray had been complete, OT set up oral hygiene supplies on pt's tray table. Pt then able to brush his teeth without difficulties. Pt reports coughing/spitting up blood after his procedure, OT notified pt's nurse. Pt then given warm washcloth to wash his face. Pt able to wash his face without difficulty. OT encouraged pt to further participate in UE exercises/ADLs, he declines further tx at this time stating he would just like to rest. OT encouraged pt to complete UE exercises later today when he has more energy, he verbalizes understanding. Post OT Tx, pt laying in bed, call light in reach and all needs met. Education OT Patient Education: Correct positioning, Energy conservation, Modified ADL techniques, Progress toward Goal/Update tx plan, Purpose of tx/functional activities Teaching Recipient: Patient Teaching Methods: Discussion Response to Teaching: Verbalize Understanding OT Jail Goals Drafting Layout Worker Goals Time Frame: Apr 02, 2020 Eating (QC): 6 Oral Hygiene (QC): 6 Toileting Hygiene (QC): 6 Shower/Bathe Self (QC): 4 Upper Body Dressing (QC): 5 Lower Body Dressing (QC): 4 On/Off Footwear (QC): 5 1=Demonstrate adherence to instructed precautions during ADL tasks. 2=Patient will verbalize/demonstrate understanding of assistive devices/modifications for ADL. 3=Patient will improve strength/tolerance for activity to enable patient to perform ADL's. OT Education/Plan Problem List/Assessment Assessment: Decreased Activ Tolerance, Decreased UE Strength, Impaired I ADL's, Impaired Self-Care Skills Discharge Recommendations Plan/Recommendations: Continue POC Treatment Plan/Plan of Care Patient would benefit from OT for education, treatment and training to promote independence in ADL's, mobility, safety and/or upper extremity function for ADL's. Plan of Care: ADL Retraining, Functional Mobility, UE Funct Exercise/Act Treatment Duration: Apr 02, 2020 Frequency: 5 times per week Estimated Hrs Per Day: .25 hour per day Rehab Potential: Guarded Time/GCodes Start Time: 09:02 Stop Time: 09:14 Total Time Billed (hr/min): 12 Billed Treatment Time 1, ADL ASH ANTONY OT Mar 24, 2020 09:25
--- NOTE | 2020-03-24 09:25 | Diagnostic Imaging Report ---
Clinical indication: Patient post bronchoscopy. Exam: Portable chest x-ray upright view. Comparisons: Portable chest x-ray dated 03/23/2020. Findings: There is no pneumothorax or pleural effusion. There is increased lung markings and reticular nodular changes seen throughout both lungs. There is patchy areas of amorphous airspace opacities involving the medial right lung base/cardiophrenic angle, superior right perihilar region, and left upper lobe regions. The left upper lobe is affected the most. There is pleural thickening again seen laterally adjacent to the left upper lobe amorphous airspace opacity. There appears to be slight improved aeration in the left upper lobe region. Amorphous nodular area seen in the right upper lobe is stable. Stable cardiomegaly. There is no significant pulmonary vascular congestion. There are degenerative spurs involving the thoracic spine. Old healed fracture of the right clavicle. IMPRESSION: 1: There is no pneumothorax or pleural effusion. 2: There is slight improved aeration of the left upper lobe. Otherwise, there is no significant interval change to the amorphous patchy airspace opacities and increased lung markings throughout both lungs which is most pronounced in the left upper lobe, medial right lung base and right upper lobe region. Stable amorphous nodular area in the right upper lobe is again seen. 3: Stable cardiomegaly with no significant pulmonary vascular congestion. Dictated by: Dictated on workstation # [id number]
[2020-03-24] MEDS ORDERED: GABAPENTIN 100 MG (NEURONTIN) CAP PO SCH ×2 (09:30→21:00)
--- NOTE | 2020-03-24 09:37 | Cardiology Progress Note ---
Subjective Date Seen by Provider: Mar 24, 2020 Time Seen by Provider: 08:47 Subjective/Events-last exam Patient is back in room from bronchoscopy. Denies any chest pain or increased dyspnea. Continues to complain of bilateral thigh pain Review of Systems General: No Chills, No Night Sweats, No Fatigue, No Malaise, No Appetite, No Other HEENT: No Head Aches, No Visual Changes, No Eye Pain, No Ear Pain, No Dysphasia, No Sinus Congestion, No Post Nasal Drip, No Sore Throat, No Other Pulmonary: Dyspnea, Cough; No Pleuritic Chest Pain, No Other Cardiovascular: No: Chest Pain, Palpitations, Orthopnea, Paroxysmal Noc. Dyspne a, Edema, Lt Headedness, Other Focused Exam Lactate Level 03/21/20 14:15: Lactic Acid Level 1.28 Objective-Cardiology Exam Last Set of Vital Signs Vital Signs 03/22/20 03/24/20 03/24/20 03/24/20 13:48 08:30 08:38 10:40 Temp 36.6 Pulse 91 Resp 22 B/P (MAP) 105/67 (80) Pulse Ox 87 O2 Delivery Nasal Cannula O2 Flow Rate 2.00 FiO2 28 Capillary Refill : Less Than 3 Seconds I&O Intake and Output 03/24/20 00:00 Intake Total 2890 ml Output Total 2950 ml Balance -60 ml Intake Oral 1890 ml IV Total 1000 ml Output Urine Total 2950 ml # Bowel Movements 2 General: Alert, Oriented X3, Cooperative HEENT: Atraumatic, PERRLA Neck: Supple, No JVD, No Thyromegaly Lungs: Other (bilat wheezing) Heart: Regular Rate, Normal S1, Normal S2 Abdomen: Normal Bowel Sounds, Soft Extremities: No Clubbing, No Cyanosis, No Edema Skin: No Rashes, No Significant Lesion Neuro: Normal Speech, Cranial Nerves 3-12 NL Psych/Mental Status: Mental Status NL, Mood NL Results Lab Laboratory Tests 03/24/20 05:55 A/P-Cardiology Admission Diagnosis Pneumonia Chest pain PVD Anemia Assessment/Plan Recurrent pneumonia, patient presented with fever, increased dyspnea. Has had recurrent pneumonia since December 2019. Currently on antibiotic. COVID-19 negative. s/p bronchoscopy this morning with Dr. Eugene. PVD, history of acute limb ischemia due to embolization probably from atrial fibrillation. Angiogram was carried out December 2019 showing total occlusion with thrombus in the distal SFA, received thrombolytics and reestablished flow. Xarelto currently on hold in preparation for bronchoscopy tomorrow. C/o BLE thigh and calf pain. Right foot with 2+ DP, left foot with diminished but present DP/PT pulse. TOÑITO's done yesterday WNL. Chest pain, nonspecific etiology, cardiac catheterization carried out on January 30, 2020 showing mild to moderate coronary artery disease nonobstructive disease. Chest pain is unlikely to be cardiac, continue to monitor Anemia, managed by primary care team, H&H is monitored, EGD done on previous admission with Dr. Wright reported gastritis and hiatal hernia. 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 Wright, recovering well, continue to monitor. PAF with RVR on 01/24/20, continue to monitor. Restart Xarelto 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 Has been on disability Tobaccoism, stopped smoking in December 2019, advised to continue to refrain Patient was seen and evaluated with Stacie, examination performed, management plan was discussed, agree with the current scribed note, I made few changes to the note using Italic font Patient was seen at bedside, still having some cough, had bronchoscopy done today Reported that his leg pain is due to herniated disc. Scheduled to continue with physical therapy. Continue on current medication. Restart oral anticoagulation as soon as possible Clinical Quality Measures DVT/VTE Risk/Contraindication: Risk Factor Score Per Nursin RFS Level Per Nursing on Admit: 4+=Very High STACIE PATEL Mar 24, 2020 09:37 THERESA BELLAMY MD Mar 24, 2020 11:31
--- NOTE | 2020-03-24 10:42 | Physical Therapy Progress Note ---
Therapy Progress Note Patient refused physical therapy this morning, he says "Not today, not after what I have been through this morning." Patient may be discharging home this afternoon. Will try again later today. MARKO REID PT Mar 24, 2020 10:42
[2020-03-24] MEDS ORDERED: CEFD300C3 PO (10:52)
--- NOTE | 2020-03-24 10:53 | Diagnostic Imaging Report ---
INDICATION: Fluoroscopy during bronchoscopy. Fluoroscopy was provided during bronchoscopy. 34 seconds of fluoroscopic time was utilized. A single image was obtained. IMPRESSION: Fluoroscopy during bronchoscopy. Dictated by: Dictated on workstation # [id number]
[2020-03-24] MEDS ORDERED: GABA-486 PO (10:54)
--- NOTE | 2020-03-24 13:03 | NUR ---
CM/SS finalized discharge. Plan: Patient will return home with a resumption of home health through [facility]. The patient states that his brother drives a motorcycle; therefore, will need transportation home. CM/SS contacted [employer] to pick him up. The patient can afford to pay, voucher not needed. No further needs at this time. Addendum: 03/24/20 at 1306 by IJEOMA STRICKLAND Patients Primary Care: Dr. Davenport
--- NOTE | 2020-03-24 15:41 | Discharge Summary ---
Discharge Summary Hospital Course Was the Problem List Reviewed?: Yes Problems/Dx: (1) Sepsis due to pneumonia Status: Acute (2) HTN (hypertension) Status: Chronic (3) Paroxysmal atrial fibrillation Status: Chronic (4) Acute respiratory failure with hypoxia Status: Acute (5) COPD (chronic obstructive pulmonary disease) Status: Chronic Hospital Course Date of Admission: Mar 21, 2020 at 16:16 Admission Diagnosis : Sepsis due to pneumonia Family Physician/Provider: No,Local Physician Date of Discharge: 03/24/20 Discharge Diagnosis: Sepsis due to pneumonia Hospital Course: Moshe Soto is a 59 year old male with multiple recent hospitalizations who presented with sepsis due to pneumonia. He was started on IV Zosyn and improved rapidly. He was tested and negative for COVID. Due to his recurrent pneumonias, pulmonology was consulted and performed a bronchoscopy. A CT scan showed a possible cavitary lesion as well as some spiculated nodules. The [facility] hoscopy did not reveal any obstructive endobronchial masses. Endobronchial brushings were performed and the pathology is pending. He was discharged with a course of Omnicef for his pneumonia. He was instructed to resume his Xarelto the following day. He will follow-up with his primary care physician in about a week. Labs and Pending Lab Test: Laboratory Tests 03/24/20 05:55: White Blood Count 9.4, Red Blood Count 3.36L, Hemoglobin 9.9L, Hematocrit 32L, Mean Corpuscular Volume 94, Mean Corpuscular Hemoglobin 30, Mean Corpuscular Hemoglobin Concent 31L, Red Cell Distribution Width 14.9H, Platelet Count 443H, Mean Platelet Volume 9.0, Neutrophils (%) (Auto) 69, Lymphocytes (%) (Auto) 18, Monocytes (%) (Auto) 7, Eosinophils (%) (Auto) 5, Basophils (%) (Auto) 0, Neutrophils # (Auto) 6.4, Lymphocytes # (Auto) 1.7, Monocytes # (Auto) 0.7, Eo sinophils # (Auto) 0.5H, Basophils # (Auto) 0.0, Sodium Level 139, Potassium Level 4.1, Chloride Level 106, Carbon Dioxide Level 23, Anion Gap 10, Blood Urea Nitrogen 9, Creatinine 0.63, Estimat Glomerular Filtration Rate > 60, BUN/Creatinine Ratio 14, Glucose Level 88, Calcium Level 9.2 Microbiology 7/5/20 Blood Culture - Preliminary, Resulted No growth Home Meds Active Gabapentin 100 Mg Capsule 200 Mg PO BID PRN 30 Days TAKES 2 (100MG) CAPS TO EQUAL 200MG 3X DAILY Cefdinir 300 Mg Capsule 300 Mg PO BID 5 Days Xarelto Tablet (Rivaroxaban) 20 Mg Tablet 20 Mg PO DAILY@1700 180 Days Reported Protonix (Pantoprazole Sodium) 40 Mg Tablet.dr 40 Mg PO DAILY Ferrous Sulfate 325 Mg Tablet 325 Mg PO DAILY Zofran (Ondansetron HCl) 4 Mg Tab 4 Mg PO Q8H PRN [Folic Acid] 1 Mg PO DAILY Oxycodone IR (Oxycodone HCl) 5 Mg Tablet 5 Mg PO Q4H PRN Xanax (Alprazolam) 0.5 Mg Tablet 0.5 Mg PO Q8H PRN Iprat-Albut 0.5-3(2.5) mg/3 ml (Ipratropium/Albuterol Sulfate) 3 Ml Ampul.neb 3 Ml IH Q4H PRN Advair Hfa 115-21 Mcg Inhaler (Fluticasone/Salmeterol) 12 Gm Hfa.aer.ad 1 Puff IH BID Cartia Xt (Diltiazem HCl) 300 Mg Cap.er.24h 300 Mg PO DAILY Digoxin 250 Mcg Tablet 250 Mcg PO DAILY Multivitamin 1 Each Tablet 1 Each PO DAILY Assessment/Pt Instructions Take medications as prescribed. Complete her course of antibiotics even if you're feeling better. Follow-up with your primary care physician, Dr. Bautista. Discharge Planning: <30 minutes discharge planning Discharge Instructions Discharge Diet: No Restrictions Discharge Physical Examination Vital Signs Vital Signs Date Time Temp Pulse Resp B/P (MAP) Pulse Ox O2 Delivery O2 Flow Rate FiO2 03/24/20 11:45 36.6 91 22 105/67 87 Room Air 03/24/20 08:38 2.00 03/22/20 13:48 28 General Appearance: No Apparent Distress, Chronically ill Respiratory: Lungs Clear, Normal Breath Sounds, No Respiratory Distress Cardiovascular: Regular Rate, Rhythm, No Edema, No Murmur Gastrointestinal: Normal Bowel Sounds, Non Tender, Soft Extremity: Normal Inspection, Non Tender, No Pedal Edema Skin: Normal Color, Warm/Dry Neurologic/Psychiatric: Alert, Oriented x3, Normal Mood/Affect Allergies: Coded Allergies: No Known Drug Allergies (Verified , 07/11/09) Copy Copies To 1: JAY BAUTISTA MD Discharge Summary Date of Admission Mar 21, 2020 at 16:16 Date of Discharge Mar 24, 2020 at 11:45 Discharge Date: Mar 24, 2020 Discharge Time: 11:45 Admission Diagnosis Sepsis due to pneumonia Discharge Diagnosis Sepsis due to pneumonia (1) Sepsis due to pneumonia Status: Acute (2) HTN (hypertension) Status: Chronic (3) Paroxysmal atrial fibrillation Status: Chronic (4) Acute respiratory failure with hypoxia Status: Acute (5) COPD (chronic obstructive pulmonary disease) Status: Chronic Clinical Quality Measures DVT/VTE Risk/Contraindication: Risk Factor Score Per Nursin RFS Level Per Nursing on Admit: 4+=Very High CLAU DUONG MD Mar 24, 2020 15:40
== END 2020-03-24 11:45 | disposition home health service (06) | DRG 871 ==
LOC: EDUNIT# 14:04 → ER 14:04 → 4TH 16:16
PROVIDERS: ADMIT Internal Medicine; ATTEND Internal Medicine
PROC: 0B938ZX Drainage of Right Main Bronchus, Via Natural or Artificial Opening Endoscopic, Diagnostic (ICD-10-PCS; 2020-03-24)
PROC: 0B978ZX Drainage of Left Main Bronchus, Via Natural or Artificial Opening Endoscopic, Diagnostic (ICD-10-PCS; 2020-03-24)
PROC: 0BDG8ZX Extraction of Left Upper Lung Lobe, Via Natural or Artificial Opening Endoscopic, Diagnostic (ICD-10-PCS; 2020-03-24)
PROC: 0BD28ZX Extraction of Carina, Via Natural or Artificial Opening Endoscopic, Diagnostic (ICD-10-PCS; 2020-03-24)
PROC: 0B9G8ZX Drainage of Left Upper Lung Lobe, Via Natural or Artificial Opening Endoscopic, Diagnostic (ICD-10-PCS; principal; 2020-03-24 07:30)
DX: A41.9 Sepsis, unspecified organism (principal); J18.9 Pneumonia, unspecified organism; J96.01 Acute respiratory failure with hypoxia; J44.0 Chronic obstructive pulmonary disease with (acute) lower respiratory infection; R64 Cachexia; R65.20 Severe sepsis without septic shock; I10 Essential (primary) hypertension; I48.0 Paroxysmal atrial fibrillation; I73.9 Peripheral vascular disease, unspecified; D64.9 Anemia, unspecified; I25.10 Atherosclerotic heart disease of native coronary artery without angina pectoris; H93.19 Tinnitus, unspecified ear; M79.2 Neuralgia and neuritis, unspecified; Z20.828 Contact with and (suspected) exposure to other viral communicable diseases; H91.92 Unspecified hearing loss, left ear; J30.1 Allergic rhinitis due to pollen; R91.8 Other nonspecific abnormal finding of lung field; Z99.81 Dependence on supplemental oxygen; Z86.718 Personal history of other venous thrombosis and embolism; Z79.01 Long term (current) use of anticoagulants; Z87.891 Personal history of nicotine dependence; Z89.411 Acquired absence of right great toe; Z89.421 Acquired absence of other right toe(s); Z87.19 Personal history of other diseases of the digestive system; Z87.820 Personal history of traumatic brain injury
CPT/HCPCS: 36415; 71045; 71260; 76000; 80048; 80053; 80061; 83605; 83735; 83874; 83880; 84145; 84484; 85025; 85610; 85730; 87015; 87040; 87070; 87101; 87116; 87205; 87206; 87635; 93005; 93041; 93922; 94640; 94664; 94760

== ENCOUNTER → 2020-04-21 | Outpatient (CLI) | payer MEDICARE ==
[~2020-04-21] MED LIST changes: +ALPR0.5T PO; +DIGO250T3 PO; +DILT300C26 PO; +FOLIC; +FOLIC ACID PO; +HOLD METFORMIN - RECEIVED CONTRAST 20 ML VIAL IV SCH; +IOHEXOL 350 MG/ML 100 ML (OMNIPAQUE 350) VIAL IV ONE; +IPRA3AMP31 IH; -LIDOCAINE JELLY 2% 6 ML SYRINGE TOP ONE; -LIDOCAINE PF 1% 2 ML VIAL IJ ONE; -LIDOCAINE PF 2% 5 ML (XYLOCAINE) VIAL INJ ONE; +NS 100 ML (IVPB) BAG IV ONE; +ONDN4T PO; +PANT40TA2 PO
[2020-04-21 13:29] LABS: BUN/CREATININE RATIO 14; CREATININE SERUM 0.74 MG/DL (0.60-1.30); GFR ESTIMATED > 60
--- NOTE | 2020-04-21 17:31 | Diagnostic Imaging Report ---
PROCEDURE: CT chest with contrast only. TECHNIQUE: Multiple contiguous axial images were obtained through the chest after administration of intravenous contrast. Auto Exposure Controls were utilized during the CT exam to meet ALARA standards for radiation dose reduction. INDICATION: Follow-up pneumonia. COMPARISON: 03/23/2020. FINDINGS: Since the previous exam, there has been interval improved aeration. Scattered patchy and confluent infiltrate-appearing densities however persist and are superimposed on background advanced emphysematous disease. Apparent thick-walled cavitary lesion seen in the left upper lobe on prior exam shows significant interval favorable change. Cavitary area persists, but thickening of the giraldo is much improved suggesting probable infiltrate surrounding an area of air trapping or cystic change. Patchy infiltrate-appearing densities of the left upper lobe persist, however. There are also persistent scattered micronodular densities of the bilateral lower lobes, left greater than right. Overall appearance remains suggestive of pneumonia. Overall appearance has improved as well when compared to prior study. There is also persistent partial atelectasis of the right middle lobe. Right upper lobe shows significant interval improved aeration. There is no large effusion or pneumothorax on either side. Cardiomediastinal structures show normal heart size. There is mild scattered calcified aortic and moderate calcified coronary atherosclerosis. Multiple mildly prominent paratracheal mediastinal lymph nodes are again noted and are stable when compared to prior study. No abnormal axillary adenopathy is seen. Osseous structures show age-related degenerative changes. No lytic or blastic bony lesions are seen. Included portions of the upper abdomen are unremarkable as well. IMPRESSION: 1. Overall, lungs show interval improved aeration, although residual scattered patchy and confluent densities of the left upper and bilateral lower lobes persist. Repeat short-interval follow-up is advised to ensure appropriate interval clearing and to exclude underlying neoplastic process. 2. Background advanced emphysematous disease. 3. Multiple mildly prominent stable paratracheal lymph nodes; possibly reactive. Dictated by: Dictated on workstation # [id number]
== END ==
LOC: RAD 12:51
PROVIDERS: ATTEND Internal Medicine Critical Care Medicine
DX: Z01.812 Encounter for preprocedural laboratory examination (principal); J18.9 Pneumonia, unspecified organism; J43.9 Emphysema, unspecified
CPT/HCPCS: 36415; 71260; 82565; 84520

== ENCOUNTER → 2020-06-14 | Outpatient (CLI) | payer MEDICARE ==
[~2020-06-14] MED LIST changes: +ALPR.25T PO; -ALPR0.254 PO; +OXC5T PO; -OXYC5TAB96 PO; -PANT40TA3 PO; +PANT40TA52 PO
--- NOTE | 2020-06-14 09:35 | Diagnostic Imaging Report ---
PROCEDURE: CT chest with contrast only. TECHNIQUE: Multiple contiguous axial images were obtained through the chest after administration of intravenous contrast. Auto Exposure Controls were utilized during the CT exam to meet ALARA standards for radiation dose reduction. INDICATION: Hypoxia, chest and shoulder pain. Pneumonia followup compared 04/21/2020. FINDINGS: There are some improvements in jarrod-fissural consolidation in the posterior inferior right middle lobe juxta fissural. There is only slight subpleural atelectasis in the left lower lobe with resolution of the prior airspace infiltrate previously noted at that site. Some left upper lobe bullous disease and scarring noted as a chronic finding. There is bullous and centrilobular emphysema with air trapping greater right than left chronic. No effusion, pneumothorax, soft tissue mass or suspicious lymph nodes. No central PE. The aorta patent and nonaneurysmal. There is no pleural or pericardial effusion. There is coronary arterial atherosclerotic vascular calcifications. The visualized upper abdomen nonacute. IMPRESSION: Resolving bilateral infiltrates, there is some superimposed background chronic changes stable with no adenopathy or adverse interval development. Dictated by: Dictated on workstation # [id number]
== END ==
LOC: RT 08:00
PROVIDERS: ATTEND Nurse Practitioner Family
DX: J18.9 Pneumonia, unspecified organism (principal); J44.9 Chronic obstructive pulmonary disease, unspecified; F17.211 Nicotine dependence, cigarettes, in remission
CPT/HCPCS: 71260

== ENCOUNTER → 2020-06-14 | Outpatient (CLI) | payer MEDICARE ==
[~2020-06-14] MED LIST changes: -HOLD METFORMIN - RECEIVED CONTRAST 20 ML VIAL IV SCH; -IOHEXOL 350 MG/ML 100 ML (OMNIPAQUE 350) VIAL IV ONE; -NS 100 ML (IVPB) BAG IV ONE
[2020-06-14 07:53] LABS: ALBUMIN 4.1 GM/DL (3.2-4.5); CHLORIDE 100 MMOL/L (98-107); POTASSIUM 4.2 MMOL/L (3.6-5.0); SODIUM 137 MMOL/L (135-145)
[2020-06-14 07:55] LABS: CALCIUM 9.4 MG/DL (8.5-10.1); TRIGLYCERIDES 148 MG/DL (<150); VLDL CHOLESTEROL 30 MG/DL (5-40)
[2020-06-14 07:56] LABS: GLUCOSE 105 MG/DL (70-105); TOTAL PROTEIN 7.6 GM/DL (6.4-8.2)
[2020-06-14 07:57] LABS: CARBON DIOXIDE 26 MMOL/L (21-32)
[2020-06-14 07:58] LABS: BILIRUBIN,TOTAL 0.3 MG/DL (0.1-1.0)
[2020-06-14 07:59] LABS: ALKALINE PHOSPHATASE 87 U/L (40-136); CREATININE SERUM 0.76 MG/DL (0.60-1.30); GFR ESTIMATED > 60
[2020-06-14 08:00] LABS: CHOLESTEROL 146 MG/DL (< 200)
[2020-06-14 08:01] LABS: BUN/CREATININE RATIO 14
[2020-06-14 08:02] LABS: HDL CHOLESTEROL 42 MG/DL (40-60)
[2020-06-14 08:03] LABS: ALANINE AMINOTRANSFERASE 25 U/L (0-55)
== END ==
LOC: LAB 07:25
PROVIDERS: ATTEND Internal Medicine Cardiovascular Disease
DX: I25.10 Atherosclerotic heart disease of native coronary artery without angina pectoris (principal); J44.9 Chronic obstructive pulmonary disease, unspecified; R06.00 Dyspnea, unspecified; I48.0 Paroxysmal atrial fibrillation; F17.211 Nicotine dependence, cigarettes, in remission
CPT/HCPCS: 36415; 80053; 80061

== ENCOUNTER → 2020-07-08 | Outpatient (CLI) | payer MEDICARE ==
[~2020-07-08] MED LIST changes: +RT-ALBUTEROL SULF 2.5 MG/3 ML PRE-MIX VIAL INH ONE
--- NOTE | 2020-07-08 08:48 | NUR ---
PT CAME FOR PFT TEST; DURING TEST QUESTIONNAIRE, PT WAS UNSURE OF RESPIRATORY MEDICATIONS HE TAKES AT HOME. HE SEEMED CONFUSED ON WHAT MEDICATION HE WAS TAKING FOR BREATHING AND HOW TO TAKE THEM. 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 PT STATED HE WOULD FOLLOW UP WITH PHYSICIAN ABOUT MEDICATION DIRECTIONS.
== END ==
LOC: RT 08:00
PROVIDERS: ATTEND Nurse Practitioner Family
DX: J44.9 Chronic obstructive pulmonary disease, unspecified (principal); F17.211 Nicotine dependence, cigarettes, in remission
CPT/HCPCS: 94060; 94726; 94729

== ENCOUNTER 2020-12-22 11:44 | Day surgery (SDC) | payer MEDICARE ==
[~2020-12-22] VITALS: Ht 175.2 cm; Wt 66.7 kg
[2020-12-22] VITALS (7 sets, daily range): BP systolic 106–119; BP diastolic 69–78
[~2020-12-22 11:44] MED LIST changes: -FOLI1TAB24 PO; +FOLI1TAB33 PO; -RT-ALBUTEROL SULF 2.5 MG/3 ML PRE-MIX VIAL INH ONE
[2020-12-22] MEDS ORDERED: HEParin (CATH LAB) 2,000 ML IV ONE (11:52)
[2020-12-22] MEDS ORDERED: NS IV 1000 ML 1,000 ML ONE (11:52)
[2020-12-22] MEDS ORDERED: LIDOCAINE 1% INJ 20 ML 20 ML VIAL ONE (11:52)
[2020-12-22] MEDS ORDERED: NS IV 1000 ML 1,000 ML IV SCH ×2 (12:15→16:00)
[2020-12-22 12:28] LABS: HEMOGLOBIN 15.4 g/dL (13.3-17.7); MEAN PLATELET VOLUME 8.8 fL (9.0-12.2); WHITE BLOOD COUNT 6.9 10^3/uL (4.3-11.0)
[2020-12-22 12:42] LABS: INR 0.9 (0.8-1.4); PROTHROMBIN TIME PATIENT 12.6 SEC (12.2-14.7)
--- NOTE | 2020-12-22 12:42 | Diagnostic Imaging Report ---
INDICATION: CHEST PAIN. TECHNIQUE: Single view chest 12:20 PM. CORRELATION STUDY: 03/24/2020 FINDINGS: Heart size and vasculature relatively stable. Some distorted appearance about the hilar structures appears generally stable may reflective fibrosis. Lung hugo hyperinflated. There is a some residual scarlike formation about the lateral left mid lung and previous area of infiltrate. No acute infiltrate. Faint density the right lung apex is present but overall appears less pronounced from previous. Old healed right clavicle fracture. IMPRESSION: 1. Chronic change about the lung parenchyma with more focal scarring left mid lung. No acute cardiopulmonary abnormality. Dictated by: Dictated on workstation # [id number]
[2020-12-22 12:50] LABS: ALANINE AMINOTRANSFERASE 31 U/L (0-55); ALKALINE PHOSPHATASE 93 U/L (40-136); BILIRUBIN,TOTAL 0.6 MG/DL (0.1-1.0); BUN/CREATININE RATIO 14; CARBON DIOXIDE 28 MMOL/L (21-32); CHLORIDE 102 MMOL/L (98-107); CHOLESTEROL 140 MG/DL (< 200); CREATININE SERUM 0.73 MG/DL (0.60-1.30); GFR ESTIMATED > 60; GLUCOSE 97 MG/DL (70-105); HDL CHOLESTEROL 36 MG/DL (40-60); POTASSIUM 4.1 MMOL/L (3.6-5.0); SODIUM 140 MMOL/L (135-145); TOTAL PROTEIN 7.4 GM/DL (6.4-8.2); TRIGLYCERIDES 103 MG/DL (<150); VLDL CHOLESTEROL 21 MG/DL (5-40)
[2020-12-22] MEDS ORDERED: GABA300C PO (12:54)
[2020-12-22] MEDS ORDERED: FLUT1DIS26 IH (12:54)
[2020-12-22] MEDS ORDERED: POTA20TA15 PO (12:54)
[2020-12-22] MEDS ORDERED: DULO60CA59 PO (12:54)
[2020-12-22] MEDS ORDERED: IRON1TAB97 PO (12:54)
[2020-12-22] MEDS ORDERED: [UNRECOGNIZED DRUG - OTHER] PO (12:54)
[2020-12-22] MEDS ORDERED: FURO20TA4 PO (12:54)
[2020-12-22] MEDS ORDERED: RIVA20TA PO (12:54)
[2020-12-22] MEDS ORDERED: DIGO125T3 PO (12:54)
[2020-12-22] MEDS ORDERED: fentaNYL INJ 100 MCG/2 ML AMP ONE (14:54)
[2020-12-22] MEDS ORDERED: MIDAZOLAM 5 MG/5 ML (VERSED) VIAL ONE (14:54)
--- NOTE | 2020-12-22 15:58 | Discharge Inst-Post CATH ---
Discharge Inst-CATH/EP Problems Reviewed?: Yes Post Cardiac Cath/EP D/C Inst Follow Up/Plan Appointment with Dr. Watson's office in 4 to 6 weeks <b>CARDIAC CATH/EP PROCEDURE DISCHARGE INSTRUCTIONS</b> ACTIVITY * Go Home directly and rest. * Limit activity of the leg (or wrist if it was used) for 7 days including aer obics, swimming, jogging, bicycling, etc. * Restrict stair-climbing for 7 days if possible, if not, climb up with your non-cath leg, then bring together on the same step. * Avoid lifting, pushing, pulling or excessive movement of the affected extremi ty for 7 days. * Customary sexual activity may be resumed after 2 days-use caution not to use a position that strains or causes pain to the affected extremity. * No driving for 24 hours. * NO SMOKING. * Avoid straining for bowel movements for 7 days. * Gentle walking on level ground is allowed. * Returning to work will depend on the type of procedure and the results. Your doctor will discuss this with you. CALL YOUR DOCTOR FOR ANY OF THE FOLLOWING: *If bleeding from the puncture site occurs- Apply gentle pressure to site with clean cloth and call your doctor or EMS. * If a knot or lump forms under the skin, increases in size, or causes pain. * If bruising appears to be worsening or moving further down your leg instead of disappearing. * Temperature above 101 F. CARE OF YOUR GROIN INCISION; * Bruising or purple discoloration of the skin near the puncture site is common. * You may shower only, no bathtub bathing for 5 days. Be careful to avoid slipping as your leg may feel stiff. * If a closure device was used on your femoral artery, please see the attached guide regarding care of the device and your leg. * Leave dressing on FOR 24 hours. CARE OF YOUR WRIST INCISION; * Bruising or purple discoloration of the skin near the puncture site is common. * You may shower. * DO NOT submerge wrist. * Leave dressing on FOR 24 hours. THERESA WATSON MD Dec 22, 2020 3:58 pm
[2020-12-22] MEDS ORDERED: PATIENT MAY USE OWN MEDS, ALL PO SCH (16:00)
--- NOTE | 2020-12-22 16:02 | Peripheral Report ---
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 Had gangrene in his toes, scheduled for peripheral angiogram After explaining the procedure to the patient, all pros and cons were explained, all questions were answered. The patient signed the consent and then he was placed on the cardiac catheterization laboratory. The patient was placed on the cardiac catheterization laboratory. Groin was prepped SL fashion local anesthesia was used. Sheath placed in the right femoral artery, runoff to the right leg was done, then I placed a rim catheter at the common iliac ended angiogram with runoff. I was unable to see the bifurcation very well, repeated multiple different injection without the ability to visualize the trifurcation well. I advanced a Storq catheter over IM diagnostic catheter then exchanged into a straight catheter placed at the popliteal artery and evaluated the trifurcation with single injection. Catheter and sheath were removed, closure device deployed FINDINGS: Right lower extremity runoff showing good runoff down to the trifurcation with good flow below the trifurcation with no significant obstructive disease Left lower extremity runoff done on multiple levels showing good runoff down to the trifurcation and below the trifurcation there are good three-vessel runoff, appears to have fibromuscular hyperplasia in the posterior tibial artery nonocclusive disease CONCLUSIONS: 1. 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 Good runoff below the trifurcation with three-vessel in both lower extremities DISCUSSION AND RECOMMENDATIONS: Medical therapy is recommended no intervention is warranted Anesthesia Type: Conscious Sedation Estimated blood loss (mL): 25 ml Contrast Amount: 45 ml Total Radiation Dose: 63 mGy Post-Procedure Diagnosis Post-operative diagnosis: Peripheral arterial disease Lower extremities pain Hypertension Hyperlipidemia THERESA BELLAMY MD Dec 22, 2020 4:02 pm
== END 2020-12-22 20:50 | disposition home or self-care (01) ==
LOC: CATH 11:44 → ICU 16:11 → CATH 20:50
PROVIDERS: ATTEND Internal Medicine Cardiovascular Disease
DX: I96 Gangrene, not elsewhere classified (principal); R07.89 Other chest pain; I77.3 Arterial fibromuscular dysplasia; I10 Essential (primary) hypertension; J18.1 Lobar pneumonia, unspecified organism; E78.5 Hyperlipidemia, unspecified; I48.0 Paroxysmal atrial fibrillation; F17.200 Nicotine dependence, unspecified, uncomplicated; Z79.899 Other long term (current) drug therapy; Z79.891 Long term (current) use of opiate analgesic
CPT/HCPCS: 36247; 36248; 71045; 75716; 80053; 80061; 85027; 85610; 87081; 93005; C1760; C1769; C1887; C1894; 36415

== ENCOUNTER 2021-03-25 14:50 | Emergency (ER) | payer MEDICARE ==
[~2021-03-25] VITALS: Ht 175.2 cm; Wt 60.0 kg
[~2021-03-25 14:50] MED LIST changes: +DIGO125T3 PO; +DULO60CA59 PO; +FLUT1DIS26 IH; +FURO20TA4 PO; +GABA300C PO; +IRON1TAB97 PO; +POTA20TA15 PO; +RIVA20TA PO; +[UNRECOGNIZED DRUG - OTHER] PO
--- NOTE | 2021-03-25 15:22 | Diagnostic Imaging Report ---
INDICATION: Cough and cold symptoms. TIME OF EXAM: 3:19 p.m. COMPARISON: Correlation is made with prior chest from 12/22/2020. FINDINGS: Heart size is stable. Emphysematous changes throughout both lungs persist. There is some linear scarring in the left mid upper lung field. No infiltrates are seen. There is no effusion or pneumothorax. IMPRESSION: Stable chronic changes when compared with exam from 12/22/2020. No acute feature is detected. Dictated by: Dictated on workstation # [id number]
[2021-03-25 15:24] LABS: BASOPHILS % (AUTO) 1 % (0-10); EOSINOPHILS % (AUTO) 0 % (0-10); HEMATOCRIT 57 % (40-54); HEMOGLOBIN 18.6 g/dL (13.3-17.7); LYMPHOCYTES # (AUTO) 1.3 10^3/uL (1.0-4.0); LYMPHOCYTES % (AUTO) 17 % (12-44); MEAN CORPUSCULAR HEMOGLOBIN 33 pg (25-34); MEAN CORPUSCULAR HGB CONC 33 g/dL (32-36); MEAN CORPUSCULAR VOLUME 100 fL (80-99); MEAN PLATELET VOLUME 9.5 fL (9.0-12.2); MONOCYTES # (AUTO) 0.5 10^3/uL (0.0-1.0); MONOCYTES % (AUTO) 6 % (0-12); NEUTROPHILS # (AUTO) 5.7 10^3/uL (1.8-7.8); NEUTROPHILS % (AUTO) 75 % (42-75); PLATELET COUNT 381 10^3/uL (130-400); WHITE BLOOD COUNT 7.6 10^3/uL (4.3-11.0)
[2021-03-25 15:27] LABS: INR 1.2 (0.8-1.4); PROTHROMBIN TIME PATIENT 15.4 SEC (12.2-14.7)
[2021-03-25 15:30] LABS: ALBUMIN 4.2 GM/DL (3.2-4.5); CHLORIDE 98 MMOL/L (98-107)
[2021-03-25 15:31] LABS: POTASSIUM 4.1 MMOL/L (3.6-5.0); SODIUM 136 MMOL/L (135-145)
[2021-03-25 15:32] LABS: CALCIUM 9.6 MG/DL (8.5-10.1)
[2021-03-25 15:33] LABS: GLUCOSE 99 MG/DL (70-105); TOTAL PROTEIN 8.1 GM/DL (6.4-8.2)
[2021-03-25 15:34] LABS: CARBON DIOXIDE 22 MMOL/L (21-32)
[2021-03-25 15:35] LABS: BILIRUBIN,TOTAL 0.8 MG/DL (0.1-1.0)
[2021-03-25 15:36] LABS: ALKALINE PHOSPHATASE 117 U/L (40-136); CREATININE SERUM 0.75 MG/DL (0.60-1.30); GFR ESTIMATED > 60
[2021-03-25 15:37] LABS: BUN/CREATININE RATIO 17
[2021-03-25 15:39] LABS: ALANINE AMINOTRANSFERASE 26 U/L (0-55)
--- NOTE | 2021-03-25 16:19 | ED General ---
General Chief Complaint: Cough/Cold/Flu Symptoms Stated Complaint: CP,GENERALIZE WEAKNESS Nursing Triage Note: Pt arrival to ER via [facility] with complaint of sick. Cough, N/V and weakness. Cough has been going on since second covid shot on 03/17. N/V and weakness started yesterday. Pt states that he thinks he has had a fever but is unsure. Source of Information: Patient Exam Limitations: No Limitations History of Present Illness Date Seen by Provider: Mar 25, 2021 Time Seen by Provider: 15:02 Initial Comments Here with report of central chest pain that he describes as a pressure and moderate in intensity. Also notes cough and congestion. Reports feverish feeling and weakness. Has been asleep for 2 days or resting for 2 days because he was just too fatigued to get up. Does have history of COPD. Patient has had some nausea and vomiting. Also reports sore throat, runny nose and body aches. Did get Covid vaccination with the second dose completed on March 17. Timing/Duration: 2-3 Days, Getting Worse Severity: Moderate Associated Systoms: Chest Pain, Cough, Malaise, Nausea/Vomiting Allergies and Home Medications Allergies Coded Allergies: No Known Drug Allergies (Verified , 07/11/09) Home Medications Alprazolam 0.5 Mg Tablet, 0.5 MG PO DAILY PRN for ANXIETY, (Reported) Digoxin 125 Mcg Tablet, 250 MCG PO DAILY, (Reported) TAKES 2 (125MCG) TABS DAILY HOLD IF PULSE IS LESS THEN 60 Duloxetine HCl 60 Mg Capsule.dr, 60 MG PO DAILY, (Reported) Fluticasone/Salmeterol 1 Each Blst.w.dev, 1 EACH IH BID, (Reported) Furosemide 20 Mg Tablet, 20 MG PO DAILY, (Reported) Gabapentin 300 Mg Capsule, 300 MG PO TID, (Reported) Iron,Carbonyl/Ascorbic Acid 1 Each Tablet.dr, 1 EACH PO DAILY, (Reported) Ondansetron HCl 4 Mg Tablet, 4 MG PO Q6H Prescribed by: MIGEL STANTON on 03/25/211743 Oxycodone Hcl 5 Mg Tablet, 5 MG PO Q4H PRN for PAIN-SEVERE (8-10), (Reported) Potassium Chloride 20 Meq Tab.er.prt, 20 MEQ PO DAILY, (Reported) Prednisone 20 Mg Tab, 40 MG PO DAILY Prescribed by: MIGEL STANTON on 03/25/21 4121 Rivaroxaban 20 Mg Tablet, 20 MG PO DAILY, (Reported) [Mens Alive] 1 CHEW, 1 EACH PO DAILY, (Reported) Patient Home Medication List Home Medication List Reviewed: Yes Review of Systems Review of Systems Constitutional: see HPI, chills, fever, weakness EENTM: see HPI Respiratory: see HPI Cardiovascular: see HPI Gastrointestinal: see HPI Genitourinary: No dysuria, No pain Musculoskeletal: no symptoms reported Skin: no symptoms reported Psychiatric/Neurological: No Symptoms Reported All Other Systems Reviewed Negative Unless Noted: Yes Past Oebwxyg-Dmhyrt-Krytea Hx Patient Social History Tobacco Use?: Yes Tobacco type used: Cigarettes Smoking Status: Current Everyday Smoker Use of E-Cig and/or Vaping dev: No Substance use?: No Alcohol Use?: No Pt feels they are or have been: No Immunizations Up To Date Tetanus Booster (TDap): Less than 5yrs PED Vaccines UTD: No Second COVID19 Vaccination Hemanth: 03/17/21 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: [employer] Seasonal Allergies Seasonal Allergies: Yes (hayfever) Past Medical History Surgeries: Yes (hernia repair, l ankle, l wrist, ) Orthopedic Respiratory: Yes Pneumonia, COPD Currently Using CPAP: No Currently Using BIPAP: No Cardiac: Yes Atrial Fibrillation, Deep Vein Thrombosis, Hypertension Neurological: Yes (neuralgia) Neuropathy Sexually Transmitted Disease: No HIV/AIDS: No Genitourinary: No Renal Failure Gastrointestinal: Yes Abdominal Hernia, Gastrointestinal Bleed Musculoskeletal: No Chronic Back Pain Endocrine: No HEENT: No (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 oz. kg; 19.00 BMI Method: General Appearance: No Apparent Distress, WD/WN HEENT: PERRL/EOMI, Pharynx Normal Neck: Non Tender, Supple Respiratory: Lungs Clear, Normal Breath Sounds Cardiovascular: Regular Rate, Rhythm, No Murmur Gastrointestinal: Non Tender, Soft Back: Normal Inspection, No CVA Tenderness, No Vertebral Tenderness Extremity: Normal Range of Motion, Non Tender Neurologic/Psychiatric: Alert, Oriented x3 Skin: normal color, warm/dry Focused Exam Lactate Level 03/25/21 15:03: Lactic Acid Level 1.27 Lactic Acid Level Laboratory Tests Test 03/25/21 15:03 Lactic Acid Level 1.27 MMOL/L (0.50-2.00) Procedures/Interventions Date of ETT Placement: January 17, 2020 Time of ETT Placement: 805 Progress/Results/Core Measures Suspected Sepsis SIRS Temperature: Pulse: 60 Respiratory Rate: 20 Laboratory Tests 03/25/21 15:03: White Blood Count 7.6 Blood Pressure 138 /78 Mean: 98 03/25/21 15:03: Lactic Acid Level 1.27 Laboratory Tests 03/25/21 15:03: Creatinine 0.75, INR Comment 1.2, Platelet Count 381, Total Bilirubin 0.8 Results/Orders Lab Results Laboratory Tests Test 03/25/21 15:03 03/25/21 15:06 03/25/21 16:35 Range/Units White Blood Count 7.6 4.3-11.0 10^3/uL Red Blood Count 5.71 H 4.30-5.52 10^6/uL Hemoglobin 18.6 H 13.3-17.7 g/dL Hematocrit 57 H 40-54 % Mean Corpuscular Volume 100 H 80-99 fL Mean Corpuscular Hemoglobin 33 25-34 pg Mean Corpuscular Hemoglobin Concent 33 32-36 g/dL Red Cell Distribution Width 15.6 H 10.0-14.5 % Platelet Count 381 130-400 10^3/uL Mean Platelet Volume 9.5 9.0-12.2 fL Immature Granulocyte % (Auto) 1 % Neutrophils (%) (Auto) 75 42-75 % Lymphocytes (%) (Auto) 17 12-44 % Monocytes (%) (Auto) 6 0-12 % Eosinophils (%) (Auto) 0 0-10 % Basophils (%) (Auto) 1 0-10 % Neutrophils # (Auto) 5.7 1.8-7.8 10^3/uL Lymphocytes # (Auto) 1.3 1.0-4.0 10^3/uL Monocytes # (Auto) 0.5 0.0-1.0 10^3/uL Eosinophils # (Auto) 0.0 0.0-0.3 10^3/uL Basophils # (Auto) 0.0 0.0-0.1 10^3/uL Immature Granulocyte # (Auto) 0.0 0.0-0.1 10^3/uL Prothrombin Time 15.4 H 12.2-14.7 SEC INR Comment 1.2 0.8-1.4 Activated Partial Thromboplast Time 35 24-35 SEC D-Dimer < 0.27 0.00-0.49 UG/ML Sodium Level 136 135-145 MMOL/L Potassium Level 4.1 3.6-5.0 MMOL/L Chloride Level 98 98-107 MMOL/L Carbon Dioxide Level 22 21-32 MMOL/L Anion Gap 16 H 5-14 MMOL/L Blood Urea Nitrogen 13 7-18 MG/DL Creatinine 0.75 0.60-1.30 MG/DL Estimat Glomerular Filtration Rate > 60 BUN/Creatinine Ratio 17 Glucose Level 99 70-105 MG/DL Lactic Acid Level 1.27 0.50-2.00 MMOL/L Calcium Level 9.6 8.5-10.1 MG/DL Corrected Calcium 9.4 8.5-10.1 MG/DL Total Bilirubin 0.8 0.1-1.0 MG/DL Aspartate Amino Transf (AST/SGOT) 23 5-34 U/L Alanine Aminotransferase (ALT/SGPT) 26 0-55 U/L Alkaline Phosphatase 117 40-136 U/L Troponin I < 0.028 <0.028 NG/ML C-Reactive Protein High Sensitivity 3.87 H 0.00-0.50 MG/DL Total Protein 8.1 6.4-8.2 GM/DL Albumin 4.2 3.2-4.5 GM/DL Influenza Type A (RT-PCR) Not Detected Not Detecte Influenza Type B (RT-PCR) Not Detected Not Detecte SARS-CoV-2 RNA (RT-PCR) Not Detected Not Detecte Urine Color YELLOW Urine Clarity CLEAR Urine pH 6.0 5-9 Urine Specific [place] >=1.030 1.016-1.022 Urine Protein TRACE H NEGATIVE Urine Glucose (UA) NEGATIVE NEGATIVE Urine Ketones 3+ H NEGATIVE Urine Nitrite NEGATIVE NEGATIVE Urine Bilirubin 1+ H NEGATIVE Urine Urobilinogen 1.0 < = 1.0 MG/DL Urine Leukocyte Esterase NEGATIVE NEGATIVE Urine RBC (Auto) 1+ H NEGATIVE Urine RBC RARE /HPF Urine WBC NONE /HPF Urine Squamous Epithelial Cells RARE /HPF Urine Crystals NONE /LPF Urine Bacteria NEGATIVE /HPF Urine Casts NONE /LPF Urine Mucus NEGATIVE /LPF Urine Culture Indicated NO My Orders Orders - MIGEL STANTON MD Cbc With Automated Diff (03/25/21 15:05) Comprehensive Metabolic Panel (03/25/21 15:05) Blood Culture (03/25/21 15:05) Sputum Culture (03/25/21 15:05) Urinalysis (03/25/21 15:05) Urine Culture (03/25/21 15:05) Protime With Inr (03/25/21 15:05) Partial Thromboplastin Time (03/25/21 15:05) Chest 1 View, Ap/Pa Only (03/25/21 15:05) Ed Iv/Invasive Line Start (03/25/21 15:05) Ed Iv/Invasive Line Start (03/25/21 15:05) Ekg Tracing (03/25/21 15:05) Troponin I (03/25/21 15:05) Vital Signs Adult Sepsis Patie Q15M (03/25/21 15:05) O2 (03/25/21 15:05) Remove Rings In Anticipation O (03/25/21 15:05) Lactic Acid Analyzer (03/25/21 15:05) Covid 19 Inhouse Test (03/25/21 15:22) Influenza A And B By Pcr (03/25/21 15:22) Hs C Reactive Protein (03/25/21 15:57) Fibrin Degradation Products (03/25/21 15:57) Lactated Ringers (Lr 1000 Ml Iv Solution (03/25/21 16:48) Albuterol/Ipra Inhalation Soln (Duoneb I (03/25/21 17:00) Svn Small Volume Nebulizer (03/25/21 16:48) Ondansetron Injection (Zofran Injectio (03/25/21 17:45) Prednisone Tablet (Deltasone Tablet) (03/25/21 17:45) Medications Given in ED Current Medications Medications Dose Ordered Sig/David Route Start Time Stop Time Status Last Admin Dose Admin Albuterol/ Ipratropium 3 ml ONCE ONCE INH 03/25/21 17:00 03/25/21 17:01 DC 03/25/21 17:02 3 ML Ondansetron HCl 4 mg ONCE ONCE IVP 03/25/21 17:45 03/25/21 17:46 DC 03/25/21 17:44 4 MG Prednisone 40 mg ONCE ONCE PO 03/25/21 17:45 03/25/21 17:46 DC 03/25/21 17:45 40 MG Vital Signs/I&O 03/25/21 03/25/21 03/25/21 15:13 15:13 17:03 Temp 36.6 Pulse 60 Resp 20 B/P (MAP) 138/78 (98) Pulse Ox 95 95 O2 Delivery Room Air Room Air Room Air Capillary Refill : Less Than 3 Seconds Blood Pressure Mean: 98 Progress Note : Progress Note Seen and evaluated. Sepsis protocol with chest pain elements ordered. COVID-19 and influenza testing initiated as well. Monitor patient. 1739: Covid is negative. Chest x-ray does not show pneumonia. Labs do not indicate anything other than dehydration at this point. LR 1 L bolus has been ordered and is running. Patient does have some nausea so we will give Zofran 4 mg IV. Prednisone 40 mg p.o. for probable mild COPD exacerbation with this. He did get DuoNeb which helped some. He does have breathing treatment medication at home. We will send him home with prescription for prednisone and ondansetron. He t hought that that would be beneficial. Discharged home with return precautions. Patient verbalized understanding instructions and agreement with plan. Pending completion of IV fluid. 1818: Patient states he is feeling a little bit better although not perfect. Fluids essentially complete. Discharged home. ECG Initial ECG Impression Date: Mar 25, 2021 Initial ECG Impression Time: 15:02 Initial ECG Rate: 65 Initial ECG Rhythm: Normal Sinus Comment Sinus rhythm with anteroseptal infarct of undetermined age. Normal axis. No evidence of ST elevation CA. Similar morphology to 12/22/2020. Interpreted by me. Diagnostic Imaging Diagonstic Imaging: Xray Plain Films/CT/US/NM/MRI: chest Comments [facility] [place], [place] NAME: ARSENIO [facility]LLY [facility] REC#: [id number] PT STATUS: REG ER : 1960 PHYSICIAN: MIGEL STANTON MD ADMIT DATE: 03/25/21/ER Signed Date of Exam:03/25/21 CHEST 1 VIEW, AP/PA ONLY INDICATION: Cough and cold symptoms. TIME OF EXAM: 3:19 p.m. COMPARISON: Correlation is made with prior chest from 12/22/2020. FINDINGS: Heart size is stable. Emphysematous changes throughout both lungs persist. There is some linear scarring in the left mid upper lung field. No infiltrates are seen. There is no effusion or pneumothorax. IMPRESSION: Stable chronic changes when compared with exam from 12/22/2020. No acute feature is detected. Dictated by: Dictated on workstation # [id number] Dict: 03/25/21 1518 Trans: 03/25/21 1539 [id number] Interpreted by: CLARI WHYTE MD Electronically signed by: CLARI WHYTE MD 03/25/21 1539 Departure Impression Primary Impression: COPD exacerbation Additional Impression: Dehydration Disposition: 01 HOME, SELF-CARE Condition: Stable Departure-Patient Inst. Decision time for Depature: 17:41 Referrals: NO,LOCAL PHYSICIAN (PCP/Family) Primary Care Physician Patient Instructions: Dehydration, Adult ED, COPD Exacerbation, Adult ED Add. Discharge Instructions: All discharge instructions reviewed with patient and/or family. Voiced understanding. Take medications as directed. Ensure that you drink plenty of fluids by taking small sips frequently of something like watered-down Gatorade or Sprite or other fluid of your choosing. You may try a light diet but go slow and advance as tolerated. Follow-up with your doctor in a few days for recheck. Return for worse pain, fever, vomiting, weakness, breathing problems or other concerns as needed. Your Covid testing was negative. Scripts Prednisone (Prednisone) 20 Mg Tab 40 MG PO DAILY, #8 TAB 0 Refills Prov: MIGEL STANTON MD 03/25/21 Ondansetron HCl (Ondansetron HCl) 4 Mg Tablet 4 MG PO Q6H, #12 TAB 0 Refills Prov: MIGEL STANTON MD 03/25/21 MIGEL STANTON MD Mar 25, 2021 16:19
[2021-03-25 16:43] LABS: CLARITY,URINE CLEAR; COLOR,URINE YELLOW; GLUCOSE, URINE (UA) NEGATIVE (NEGATIVE); KETONES,URINE 3+ (NEGATIVE); LEUKOCYTE ESTERASE ,URINE NEGATIVE (NEGATIVE); NITRITE,URINE NEGATIVE (NEGATIVE); PROTEIN,URINE TRACE (NEGATIVE)
[2021-03-25] MEDS ORDERED: LACTATED RINGERS 1,000 ML IV STA (16:48)
[2021-03-25 16:57] LABS: BACTERIA,URINE NEGATIVE /HPF; BILIRUBIN,URINE 1+ (NEGATIVE); RBC,URINE RARE /HPF; SQUAMOUS EPITHELIAL CELL,UR RARE /HPF
[2021-03-25] MEDS ORDERED: RT-ALBUTEROL/IPRATROPIUM 3 ML (DUONEB) VIAL INH ONE (17:00)
[2021-03-25] MEDS ORDERED: PRD20T PO (17:44)
[2021-03-25] MEDS ORDERED: ONDA-105 PO (17:44)
[2021-03-25] MEDS ORDERED: predniSONE 20 MG TAB PO ONE (17:45)
[2021-03-25] MEDS ORDERED: ONDANSETRON 4 MG/2 ML (SDV) Z0FRAN IVP ONE (17:45)
[2021-03-25 19:01] VITALS: BP 134/70
== END 2021-03-25 19:01 | disposition home or self-care (01) ==
LOC: EDUNIT# 14:50 → ER 14:51
DX: J44.1 Chronic obstructive pulmonary disease with (acute) exacerbation (principal); E86.0 Dehydration; I10 Essential (primary) hypertension; G89.29 Other chronic pain; M54.9 Dorsalgia, unspecified; I48.91 Unspecified atrial fibrillation; Z20.822 Contact with and (suspected) exposure to COVID-19; F17.210 Nicotine dependence, cigarettes, uncomplicated; Z86.718 Personal history of other venous thrombosis and embolism; Z79.01 Long term (current) use of anticoagulants; Z79.891 Long term (current) use of opiate analgesic; Z79.899 Other long term (current) drug therapy
CPT/HCPCS: 36415; 71045; 80053; 81000; 83605; 84484; 85025; 85379; 85610; 85730; 86141; 87040; 87088; 87636; 94640

== ENCOUNTER → 2021-07-18 | Outpatient (CLI) | payer MEDICARE ==
[~2021-07-18] MED LIST changes: +HOLD METFORMIN - RECEIVED CONTRAST 20 ML VIAL IV SCH; +IOHEXOL 350 MG/ML 100 ML (OMNIPAQUE 350) VIAL IV ONE; +NS 100 ML (IVPB) BAG IV ONE; +ONDA-105 PO; +PRD20T PO
[2021-07-18 13:34] LABS: CREATININE SERUM 0.67 MG/DL (0.60-1.30)
--- NOTE | 2021-07-18 15:54 | Diagnostic Imaging Report ---
CT CHEST W TECHNIQUE: Multiple contiguous axial images were obtained through the chest with the use of intravenous contrast. All CT scans use one or more of the following dose optimizing techniques: automated exposure control, MA and/or KvP adjustment based on a patient size and exam type, or iterative reconstruction. INDICATION: COPD, hypoxemia and dyspnea COMPARISON: CT chest from 06/14/2020. FINDINGS: Lungs and airway: Retained secretions are noted within the trachea and left mainstem bronchus. Severe emphysema is unchanged. Unchanged architectural distortion in the left upper lobe likely due to sequelae of prior severe infection. There is small amount of scar within the middle lobe and left lower lobe is also stable. No suspicious pulmonary nodules have developed. Pleura: No pleural effusion or pneumothorax. Heart and mediastinum: Thyroid is normal. No supraclavicular or axillary lymphadenopathy. No mediastinal or hilar lymphadenopathy. Heart is normal in size without pericardial effusion. Moderate coronary artery calcifications are unchanged. Normal caliber thoracic aorta. Upper abdomen: No concerning abnormality upper abdomen. Musculoskeletal: No lytic or blastic skeletal lesions. IMPRESSION: 1. No suspicious pulmonary nodules have developed. 2. No intrathoracic lymphadenopathy. 3. Unchanged scattered areas of scar. Dictated by: Dictated on workstation # [id number]
== END ==
LOC: RAD 12:57
PROVIDERS: ATTEND Nurse Practitioner Family
DX: J44.9 Chronic obstructive pulmonary disease, unspecified (principal); R91.8 Other nonspecific abnormal finding of lung field; F17.210 Nicotine dependence, cigarettes, uncomplicated
CPT/HCPCS: 36415; 71260; 82565; 84520

== ENCOUNTER 2021-10-17 09:15 | Emergency (ER) | payer MEDICARE ==
[~2021-10-17] VITALS: Ht 175 cm; Wt 64.0 kg
[~2021-10-17 09:15] MED LIST changes: -HOLD METFORMIN - RECEIVED CONTRAST 20 ML VIAL IV SCH; -IOHEXOL 350 MG/ML 100 ML (OMNIPAQUE 350) VIAL IV ONE; -NS 100 ML (IVPB) BAG IV ONE; +POTA-179 PO; -POTA20TA15 PO
[2021-10-17] MEDS ORDERED: morphine INJ 10 MG/ML 1ML (SYR OR VIAL) IVP STA (09:23)
--- NOTE | 2021-10-17 09:27 | ED Abdominal Pain ---
General Stated Complaint: ABD PAIN Source of Information: Patient, EMS Exam Limitations: No Limitations History of Present Illness Date Seen by Provider: Oct 17, 2021 Time Seen by Provider: 09:20 Initial Comments 60-year-old male with past medical history of COPD, A. fib on Xarelto coming in due to right lower quadrant abdominal pain. Started a couple hours ago, is sharp, constant, nothing seems to make it better or worse. No associated nausea or vomiting. Had a normal bowel movement yesterday and no diarrhea today. Denies any dysuria as well. Denies ever having pain like this before. Previous abdominal surgery includes hernia repair many years ago. EMS started an IV and given 50 mcg of fentanyl which did help somewhat with the pain. He is otherwise denying any fever, cough, chest pain, shortness of breath, or any other concerns. Allergies and Home Medications Allergies Coded Allergies: No Known Drug Allergies (Verified , 07/11/09) Patient Home Medication List Home Medication List Reviewed: Yes Alprazolam (Xanax) 0.5 Mg Tablet, 0.5 MG PO DAILY PRN for ANXIETY, (Reported) Entered as Reported by: PRISCILLA DELGADO on 03/23/20 1156 Digoxin (Digoxin) 125 Mcg Tablet, 250 MCG PO DAILY, (Reported) Entered as Reported by: PRISCILLA DELGADO on 12/22/20 1254 Duloxetine HCl (Duloxetine HCl) 60 Mg Capsule.dr, 60 MG PO DAILY, (Reported) Entered as Reported by: PRISCILLA DELGADO on 12/22/20 1254 Fluticasone/Salmeterol (Advair 250-50 Diskus) 1 Each Blst.w.dev, 1 EACH IH BID, (Reported) Entered as Reported by: PRISCILLA DELGADO on 12/22/20 1254 Furosemide (Furosemide) 20 Mg Tablet, 20 MG PO DAILY, (Reported) Entered as Reported by: PRISCILLA DELGADO on 12/22/20 1254 Gabapentin (Neurontin) 300 Mg Capsule, 300 MG PO TID, (Reported) Entered as Reported by: PRISCILLA DELGADO on 12/22/20 1254 Iron,Carbonyl/Ascorbic Acid (Vitron-C Tablet) 1 Each Tablet.dr, 1 EACH PO DAILY, (Reported) Entered as Reported by: PRISCILLA DELGADO on 12/22/20 1254 Ondansetron HCl (Ondansetron HCl) 4 Mg Tablet, 4 MG PO Q6H Prescribed by: MIGEL STANTON on 03/25/21 174 Oxycodone Hcl (Oxyir Tablet) 5 Mg Tablet, 5 MG PO Q4H PRN for PAIN-SEVERE (8- 10), (Reported) Entered as Reported by: PRISCILLA DELGADO on 03/23/20 1156 Potassium Chloride (Potassium Chloride) 20 Meq Tab.er.prt, 20 MEQ PO DAILY, (Reported) Entered as Reported by: PRISCILLA DELGADO on 12/22/20 1254 Prednisone (Prednisone) 20 Mg Tab, 40 MG PO DAILY Prescribed by: MIGEL STANTON on 03/25/211743 Rivaroxaban (Xarelto) 20 Mg Tablet, 20 MG PO DAILY, (Reported) Entered as Reported by: PRISCILLA DLEGADO on 12/22/20 125 [Mens Alive] 1 CHEW, 1 EACH PO DAILY, (Reported) Entered as Reported by: PRISCILLA DELGADO on 12/22/20 1254 Review of Systems Review of Systems Constitutional: No chills, No fever EENTM: No Blurred Vision Respiratory: Denies Cough, Denies Shortness of Air Cardiovascular: Denies Chest Pain Gastrointestinal: Abdominal Pain; Denies Diarrhea, Denies Nausea, Denies Vomiting Genitourinary: No Symptoms Reported Musculoskeletal: no symptoms reported Skin: no symptoms reported Psychiatric/Neurological: No Symptoms Reported Endocrine: No Symptoms Reported Hematologic/Lymphatic: No Symptoms Reported All Other Systems Reviewed Negative Unless Noted: Yes Past Rhrmmkc-Hbbayt-Ghwhjv Hx Patient Social History Tobacco Use?: Yes Immunizations Up To Date Tetanus Booster (TDap): Less than 5yrs PED Vaccines UTD: No Seasonal Allergies Seasonal Allergies: Yes (hayfever) Past Medical History Surgeries: Yes (hernia repair, l ankle, l wrist, ) Orthopedic Respiratory: Yes Pneumonia, COPD Currently Using CPAP: No Currently Using BIPAP: No Cardiac: Yes Atrial Fibrillation, Deep Vein Thrombosis, Hypertension Neurological: Yes (neuralgia) Neuropathy Sexually Transmitted Disease: No HIV/AIDS: No Genitourinary: No Renal Failure Gastrointestinal: Yes Abdominal Hernia, Gastrointestinal Bleed Musculoskeletal: No Chronic Back Pain Endocrine: No HEENT: No (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 oz. kg; 19.00 BMI Method: General Appearance: WD/WN, no apparent distress HEENT: PERRL/EOMI, normal ENT inspection, pharynx normal Neck: non-tender, full range of motion, supple, normal inspection Respiratory: chest non-tender, lungs clear, normal breath sounds, no respiratory distress, no accessory muscle use Cardiovascular: regular rate, rhythm, no edema, no murmur Gastrointestinal: normal bowel sounds, soft; No distended, No guarding, No rebound; tenderness Extremities: normal range of motion, non-tender, normal inspection, no pedal edema, no calf tenderness, normal capillary refill Back: normal inspection, no CVA tenderness, no vertebral tenderness Neurologic/Psychiatric: no motor/sensory deficits, alert, normal mood/affect Skin: normal color, warm/dry Lymphatic: no adenopathy Procedures/Interventions Date of ETT Placement: January 17, 2020 Time of ETT Placement: 805 Progress/Results/Core Measures Results/Orders Lab Results Laboratory Tests Test 10/17/21 09:25 10/17/21 11:10 Range/Units White Blood Count 13.4 H 4.3-11.0 10^3/uL Red Blood Count 4.17 L 4.30-5.52 10^6/uL Hemoglobin 13.2 L 13.3-17.7 g/dL Hematocrit 40 40-54 % Mean Corpuscular Volume 96 80-99 fL Mean Corpuscular Hemoglobin 32 25-34 pg Mean Corpuscular Hemoglobin Concent 33 32-36 g/dL Red Cell Distribution Width 13.2 10.0-14.5 % Platelet Count 669 H 130-400 10^3/uL Mean Platelet Volume 8.8 L 9.0-12.2 fL Immature Granulocyte % (Auto) 1 % Neutrophils (%) (Auto) 76 H 42-75 % Lymphocytes (%) (Auto) 14 12-44 % Monocytes (%) (Auto) 8 0-12 % Eosinophils (%) (Auto) 1 0-10 % Basophils (%) (Auto) 0 0-10 % Neutrophils # (Auto) 10.2 H 1.8-7.8 10^3/uL Lymphocytes # (Auto) 1.9 1.0-4.0 10^3/uL Monocytes # (Auto) 1.0 0.0-1.0 10^3/uL Eosinophils # (Auto) 0.1 0.0-0.3 10^3/uL Basophils # (Auto) 0.1 0.0-0.1 10^3/uL Immature Granulocyte # (Auto) 0.1 0.0-0.1 10^3/uL Sodium Level 133 L 135-145 MMOL/L Potassium Level 5.6 H 3.6-5.0 MMOL/L Chloride Level 97 L 98-107 MMOL/L Carbon Dioxide Level 23 21-32 MMOL/L Anion Gap 13 5-14 MMOL/L Blood Urea Nitrogen 5 L 7-18 MG/DL Creatinine 0.66 0.60-1.30 MG/DL Estimat Glomerular Filtration Rate 109 BUN/Creatinine Ratio 8 Glucose Level 196 H 70-105 MG/DL Calcium Level 8.7 8.5-10.1 MG/DL Corrected Calcium 9.2 8.5-10.1 MG/DL Total Bilirubin 0.2 0.1-1.0 MG/DL Aspartate Amino Transf (AST/SGOT) 26 5-34 U/L Alanine Aminotransferase (ALT/SGPT) 27 0-55 U/L Alkaline Phosphatase 116 40-136 U/L Total Protein 7.7 6.4-8.2 GM/DL Albumin 3.4 3.2-4.5 GM/DL Lipase 10 8-78 U/L Urine Color YELLOW Urine Clarity CLEAR Urine pH 7.0 5-9 Urine Specific [place] 1.010 L 1.016-1.022 Urine Protein NEGATIVE NEGATIVE Urine Glucose (UA) TRACE H NEGATIVE Urine Ketones NEGATIVE NEGATIVE Urine Nitrite NEGATIVE NEGATIVE Urine Bilirubin NEGATIVE NEGATIVE Urine Urobilinogen 0.2 < = 1.0 MG/DL Urine Leukocyte Esterase NEGATIVE NEGATIVE Urine RBC (Auto) NEGATIVE NEGATIVE Urine RBC 0-2 /HPF Urine WBC 0-2 /HPF Urine Squamous Epithelial Cells 2-5 /HPF Urine Crystals NONE /LPF Urine Bacteria TRACE /HPF Urine Casts NONE /LPF Urine Mucus NEGATIVE /LPF Urine Culture Indicated NO My Orders Orders - DOREEN CARRILLO MD Comprehensive Metabolic Panel (10/17/21 09:23) Lipase (10/17/21 09:23) Ua Culture If Indicated (10/17/21 09:23) Ed Iv/Invasive Line Start (10/17/21 09:23) Cbc With Automated Diff (10/17/21 09:23) Ct Abdomen/Pelvis W (10/17/21 09:23) Morphine Injection (Morphine Injection (10/17/21 09:23) Ondansetron Injection (Zofran Injectio (10/17/21 09:30) Iohexol Injection (Omnipaque 350 Mg/Ml 1 (10/17/21 10:15) Received Contrast (Hold Metformin- Contr (10/17/21 10:15) Sodium Chloride Flush (Catheter Flush Sy (10/17/21 10:15) Ns (Ivpb) (Sodium Chloride 0.9% Ivpb Bag (10/17/21 10:15) Medications Given in ED Current Medications Medications Dose Ordered Sig/David Route Start Time Stop Time Status Last Admin Dose Admin Iohexol 100 ml ONCE ONCE IV 10/17/21 10:15 10/17/21 10:16 DC 10/17/21 10:33 80 ML Ondansetron HCl 4 mg ONCE ONCE IVP 10/17/21 09:30 10/17/21 09:31 DC 10/17/21 09:43 4 MG Sodium Chloride 10 ml NEEDED PRN IV 10/17/21 10:15 10/17/21 10:33 10 ML Sodium Chloride 100 ml ONCE ONCE IV 10/17/21 10:15 10/17/21 10:16 DC 10/17/21 10:33 80 ML Vital Signs/I&O 10/17/21 09:15 Temp 36.3 Pulse 72 Resp 18 B/P (MAP) 147/117 (127) Pulse Ox 95 Progress Progress Note : Progress Note 60-year-old male with above history coming in due to right lower quadrant abdom inal pain. ABCs were intact and vitals were stable on presentation. Physical exam with right lower quadrant tenderness and no signs of peritonitis. An IV had been in place he was given 4 mg of morphine and 4 mg of Zofran for pain control nausea. CT ordered to assess for pancreatitis versus other etiologies and was negative other than a full bladder. Patient was able to urinate very small amounts, I did a postvoid residual and he had over a liter left on ultrasound. We then placed a Jackson catheter with good return of urine. I suspect all of his pain is due to retention of urine in his bladder being full. I believe the patient is stable for discharge with outpatient follow-up with Dr. Lafleur to have evaluation for removal of the Jackson. He was sent home with strict return precautions Diagnostic Imaging Diagonstic Imaging: CT Plain Films/CT/US/NM/MRI: abdomen Comments NAME: ARSENIO JOLLY [facility] REC#: [id number] PT STATUS: REG ER : 1960 PHYSICIAN: DOREEN CARRILLO MD ADMIT DATE: 10/17/21/ER Draft Date of Exam:10/17/21 CT ABDOMEN/PELVIS W PROCEDURE: CT abdomen and pelvis with contrast. TECHNIQUE: Multiple contiguous axial images were obtained through the abdomen and pelvis after administration of intravenous contrast. Auto Exposure Controls were utilized during the CT exam to meet ALARA standards for radiation dose reduction. All CT scans use one or more of the following dose optimizing techniques: automated exposure control, MA and/or KvP adjustment based on patient size and exam type or iterative reconstruction. DATE: October 17, 2021. COMPARISON: None. INDICATION: 60-year-old male, right posterior abdominal pain. FINDINGS: There are mild linear opacities in the right middle lobe, consistent with atelectasis and/or scarring as are the mild linear opacities in the right lower lobe. The heart is not enlarged. There is no pericardial effusion. The liver is unremarkable in size and contour. There is no identified liver lesion. The main, right, and left portal veins are patent. The gallbladder is unremarkable. There is no intrahepatic or extrahepatic bile duct dilation. The main pancreatic duct is not abnormally dilated. Unremarkable appearance of the pancreatic parenchyma. The spleen is normal in size. There is a low-attenuation left adrenal nodule on axial image 22 which measures 1.3 cm in size. Internal attenuation measures 33 Hounsfield units on this post contrast study. This is indeterminate. Unremarkable appearance of the renal parenchyma. The urinary collecting systems are not distended. There is no identified renal or ureteral stone. There is mild urinary bladder distention without CT apparent urinary bladder wall thickening. The intestinal tract is not distended. There is no free intraperitoneal air. There is no drainable fluid collection. There is no free pelvic fluid. There are atherosclerotic calcifications. There is no identified abnormally enlarged lymph node in the abdomen or pelvis meeting CT size criteria for adenopathy. There are surgical clips in the left inguinal region. There are multilevel degenerative changes of the spine. There is a remote prior fracture of the right L1 transverse process. There is sclerosis in both femoral heads which may be seen with avascular necrosis. There is no evidence of subchondral collapse. There is mild osteoarthritis of both hips. IMPRESSION: 1. No identified acute abnormality in the abdomen or pelvis. 2. Incidental findings as above. Dictated on workstation # [id number] Dict: 10/17/21 1045 Trans: 10/17/21 1054 [id number] Interpreted by: JAYDEN EISENBERG MD Electronically signed by: Departure Impression Primary Impression: Urinary retention Disposition: HOME, SELF-CARE Condition: Stable Departure-Patient Inst. Decision time for Depature: 11:55 Referrals: ALFREDA LAFLEUR MD, JOHN D MD (PCP/Family) Primary Care Physician Patient Instructions: Urinary Retention (DC), How to Care for Your Jackson Catheter, Male Add. Discharge Instructions: Please follow-up with Dr. Lafleur in 1 to 2 weeks to figure out how to get the Jackson catheter out. If you develop any fever or any concerns then please come back to the ER. DOREEN CARRILLO MD Oct 17, 2021 09:27
[2021-10-17] MEDS ORDERED: ONDANSETRON 4 MG/2 ML (SDV) Z0FRAN IVP ONE (09:30)
[2021-10-17 09:38] LABS: BASOPHILS # (AUTO) 0.1 10^3/uL (0.0-0.1); BASOPHILS % (AUTO) 0 % (0-10); EOSINOPHILS # (AUTO) 0.1 10^3/uL (0.0-0.3); EOSINOPHILS % (AUTO) 1 % (0-10); HEMATOCRIT 40 % (40-54); HEMOGLOBIN 13.2 g/dL (13.3-17.7); LYMPHOCYTES # (AUTO) 1.9 10^3/uL (1.0-4.0); LYMPHOCYTES % (AUTO) 14 % (12-44); MEAN CORPUSCULAR HEMOGLOBIN 32 pg (25-34); MEAN CORPUSCULAR HGB CONC 33 g/dL (32-36); MEAN CORPUSCULAR VOLUME 96 fL (80-99); MEAN PLATELET VOLUME 8.8 fL (9.0-12.2); MONOCYTES % (AUTO) 8 % (0-12); NEUTROPHILS # (AUTO) 10.2 10^3/uL (1.8-7.8); NEUTROPHILS % (AUTO) 76 % (42-75); PLATELET COUNT 669 10^3/uL (130-400); WHITE BLOOD COUNT 13.4 10^3/uL (4.3-11.0)
[2021-10-17 09:46] LABS: ALBUMIN 3.4 GM/DL (3.2-4.5); POTASSIUM 5.6 MMOL/L (3.6-5.0)
[2021-10-17 09:47] LABS: CALCIUM 8.7 MG/DL (8.5-10.1)
[2021-10-17 09:49] LABS: TOTAL PROTEIN 7.7 GM/DL (6.4-8.2)
[2021-10-17 09:50] LABS: BILIRUBIN,TOTAL 0.2 MG/DL (0.1-1.0)
[2021-10-17 09:52] LABS: CREATININE SERUM 0.66 MG/DL (0.60-1.30)
[2021-10-17] MEDS ORDERED: IOHEXOL 350 MG/ML 100 ML (OMNIPAQUE 350) VIAL IV ONE (10:15)
[2021-10-17] MEDS ORDERED: HOLD METFORMIN - RECEIVED CONTRAST 20 ML VIAL IV SCH (10:15)
[2021-10-17] MEDS ORDERED: NS 100 ML (IVPB) BAG IV ONE (10:15)
[2021-10-17] MEDS ORDERED: CATHETER FLUSH 10 ML SYR IV PRN (10:15)
--- NOTE | 2021-10-17 10:54 | Diagnostic Imaging Report ---
PROCEDURE: CT abdomen and pelvis with contrast. TECHNIQUE: Multiple contiguous axial images were obtained through the abdomen and pelvis after administration of intravenous contrast. Auto Exposure Controls were utilized during the CT exam to meet ALARA standards for radiation dose reduction. All CT scans use one or more of the following dose optimizing techniques: automated exposure control, MA and/or KvP adjustment based on patient size and exam type or iterative reconstruction. DATE: October 17, 2021. COMPARISON: None. INDICATION: 60-year-old male, right posterior abdominal pain. FINDINGS: There are mild linear opacities in the right middle lobe, consistent with atelectasis and/or scarring as are the mild linear opacities in the right lower lobe. The heart is not enlarged. There is no pericardial effusion. The liver is unremarkable in size and contour. There is no identified liver lesion. The main, right, and left portal veins are patent. The gallbladder is unremarkable. There is no intrahepatic or extrahepatic bile duct dilation. The main pancreatic duct is not abnormally dilated. Unremarkable appearance of the pancreatic parenchyma. The spleen is normal in size. There is a low-attenuation left adrenal nodule on axial image 22 which measures 1.3 cm in size. Internal attenuation measures 33 Hounsfield units on this post contrast study. This is indeterminate. Unremarkable appearance of the renal parenchyma. The urinary collecting systems are not distended. There is no identified renal or ureteral stone. There is mild urinary bladder distention without CT apparent urinary bladder wall thickening. The intestinal tract is not distended. There is no free intraperitoneal air. There is no drainable fluid collection. There is no free pelvic fluid. There are atherosclerotic calcifications. There is no identified abnormally enlarged lymph node in the abdomen or pelvis meeting CT size criteria for adenopathy. There are surgical clips in the left inguinal region. There are multilevel degenerative changes of the spine. There is a remote prior fracture of the right L1 transverse process. There is sclerosis in both femoral heads which may be seen with avascular necrosis. There is no evidence of subchondral collapse. There is mild osteoarthritis of both hips. IMPRESSION: 1. No identified acute abnormality in the abdomen or pelvis. 2. Incidental findings as above. Dictated by: Dictated on workstation # [id number]
[2021-10-17 11:27] LABS: BILIRUBIN,URINE NEGATIVE (NEGATIVE); CLARITY,URINE CLEAR; COLOR,URINE YELLOW; GLUCOSE, URINE (UA) TRACE (NEGATIVE); KETONES,URINE NEGATIVE (NEGATIVE); LEUKOCYTE ESTERASE ,URINE NEGATIVE (NEGATIVE); NITRITE,URINE NEGATIVE (NEGATIVE); PROTEIN,URINE NEGATIVE (NEGATIVE)
[2021-10-17 11:44] LABS: BACTERIA,URINE TRACE /HPF; RBC,URINE 0-2 /HPF; WBC,URINE 0-2 /HPF
[2021-10-17 12:22] VITALS: BP 108/90
== END 2021-10-17 12:24 | disposition home or self-care (01) ==
LOC: EDUNIT# 09:15 → ER 09:16
DX: R33.9 Retention of urine, unspecified (principal); J44.9 Chronic obstructive pulmonary disease, unspecified; I10 Essential (primary) hypertension; I48.91 Unspecified atrial fibrillation; G89.29 Other chronic pain; M54.9 Dorsalgia, unspecified; Z86.718 Personal history of other venous thrombosis and embolism; Z79.891 Long term (current) use of opiate analgesic; Z79.01 Long term (current) use of anticoagulants
CPT/HCPCS: 36415; 51702; 74177; 80053; 81000; 83690; 85025

== ENCOUNTER 2021-11-09 00:59 | Inpatient (IN) | payer MEDICARE ==
[~2021-11-09] VITALS: Ht 175 cm; Wt 52.3 kg
[2021-11-09] VITALS (13 sets, daily range): BP systolic 98–116; BP diastolic 58–95
[~2021-11-09 00:59] MED LIST changes: +ALBU18HF2 INH; +ALPR0.5T7 PO; +BACL10TA PO; +FLUT1BLS3 INH; +FURO40TA4 PO; +GABA-490 PO; +LEVO750T39 PO; +MONT-40 PO; +MULT-1019 PO; +OXYC5TAB PO; +POTA-51 PO; +PRED10TA22 PO; +TMSL.4C PO
[2021-11-09] MEDS ORDERED: methylPREDNISolone 125 MG (Solu-MEDROL) VIAL IV STA (01:25)
[2021-11-09] MEDS ORDERED: RT-ALBUTEROL/IPRATROPIUM 3 ML (DUONEB) VIAL INH ONE (01:30)
[2021-11-09] MEDS ORDERED: ASPIRIN 81 MG CHEW (CHILDREN'S ASA) PO ONE (01:45)
[2021-11-09 01:49] LABS: ABG BASE EXCESS 12.8 MMOL/L (-2.5-2.5); ABG OXYGEN SATURATION 96 % (94-100); ABG PCO2 51 MMHG (35-45); ABG PH 7.48 (7.37-7.43); ABG PO2 74 MMHG (79-93); ABG TCO2 38.9 MMOL/L (21.0-31.0)
[2021-11-09 01:56] LABS: BASOPHILS % (AUTO) 0 % (0-10); EOSINOPHILS # (AUTO) 0.3 10^3/uL (0.0-0.3); EOSINOPHILS % (AUTO) 3 % (0-10); HEMATOCRIT 43 % (40-54); HEMOGLOBIN 14.1 g/dL (13.3-17.7); LYMPHOCYTES # (AUTO) 2.1 10^3/uL (1.0-4.0); LYMPHOCYTES % (AUTO) 19 % (12-44); MEAN CORPUSCULAR HEMOGLOBIN 31 pg (25-34); MEAN CORPUSCULAR HGB CONC 33 g/dL (32-36); MEAN CORPUSCULAR VOLUME 94 fL (80-99); MEAN PLATELET VOLUME 9.3 fL (9.0-12.2); MONOCYTES # (AUTO) 0.7 10^3/uL (0.0-1.0); MONOCYTES % (AUTO) 7 % (0-12); NEUTROPHILS # (AUTO) 7.7 10^3/uL (1.8-7.8); NEUTROPHILS % (AUTO) 71 % (42-75); PLATELET COUNT 582 10^3/uL (130-400); WHITE BLOOD COUNT 10.9 10^3/uL (4.3-11.0)
[2021-11-09 02:00] LABS: ALLENS TEST YES-POS; INSPIRED O2 3L
[2021-11-09 02:01] LABS: PATIENT TEMP 36.4; VENTILATOR NO
[2021-11-09 02:06] LABS: CHLORIDE 92 MMOL/L (98-107); POTASSIUM 3.7 MMOL/L (3.6-5.0); SODIUM 135 MMOL/L (135-145)
[2021-11-09 02:07] LABS: ALBUMIN 3.4 GM/DL (3.2-4.5)
[2021-11-09 02:08] LABS: AMYLASE 58 U/L (25-125); CALCIUM 8.7 MG/DL (8.5-10.1)
[2021-11-09 02:09] LABS: GLUCOSE 97 MG/DL (70-105); TOTAL PROTEIN 6.9 GM/DL (6.4-8.2)
[2021-11-09 02:10] LABS: CARBON DIOXIDE 33 MMOL/L (21-32)
[2021-11-09 02:11] LABS: BILIRUBIN,TOTAL 0.5 MG/DL (0.1-1.0)
[2021-11-09 02:13] LABS: ALKALINE PHOSPHATASE 118 U/L (40-136); CREATININE SERUM 0.47 MG/DL (0.60-1.30); GFR ESTIMATED 120
[2021-11-09 02:14] LABS: BUN/CREATININE RATIO 32
[2021-11-09 02:15] LABS: ACETAMINOPHEN < 10 UG/ML (10-30); ERYTHROCYTE SEDIMENTATION RATE 16 MM/HR (0-30)
[2021-11-09 02:16] LABS: ALANINE AMINOTRANSFERASE 50 U/L (0-55); MAGNESIUM 2.2 MG/DL (1.6-2.4); SALICYLATE < 5.0 MG/DL (5.0-20.0)
[2021-11-09 02:17] LABS: CREATINE KINASE 65 U/L (30-200); LIPASE 15 U/L (8-78)
[2021-11-09 02:25] LABS: CREATINE KINASE MB 5.7 NG/ML (<6.6)
--- NOTE | 2021-11-09 02:28 | ED General ---
General Chief Complaint: Neuro-Stroke Like Symptoms Stated Complaint: RT SIDE FACIAL DROOP,POSS STROKE Source of Information: Patient (VERY LIMITED HISTORIAN), EMS, Old Records History of Present Illness Date Seen by Provider: Nov 09, 2021 Time Seen by Provider: 01:05 Initial Comments PT ARRIVES VIA EMS FROM HOME Allergies and Home Medications Allergies Coded Allergies: No Known Drug Allergies (Verified , 07/11/09) Patient Home Medication List Albuterol Sulfate (Ventolin Hfa) 18 Gm Hfa.aer.ad, 2 PUFF INH Q6H PRN for SHORT NESS OF BREATH, (Reported) Entered as Reported by: PRISCILLA DELGADO on 11/04/211556 Last Action: Last Taken Edited Alprazolam (Alprazolam) 0.5 Mg Tablet, 1 MG PO DAILY PRN for ANXIETY, (Reported) Entered as Reported by: RPISCILLA DELGADO on 11/04/211556 Last Action: Last Taken Edited Aspirin (Aspirin) 81 Mg Tab.chew, 81 MG PO DAILY Prescribed by: CLAU DUONG on 11/10/21954 Atorvastatin Calcium (Lipitor) 40 Mg Tablet, 40 MG PO HS Prescribed by: CLAU DUONG on 11/10/21954 Baclofen (Baclofen) 10 Mg Tablet, 10 MG PO TID PRN for MUSCLE SPASMS, (Reported) Entered as Reported by: PRISCILLA DELGADO on 11/04/211556 Last Action: Last Taken Edited Digoxin (Digoxin) 125 Mcg Tablet, 250 MCG PO DAILY, (Reported) Entered as Reported by: PRISCILLA DELGADO on 12/22/201253 Last Action: Last Taken Edited Duloxetine HCl (Duloxetine HCl) 60 Mg Capsule.dr, 60 MG PO DAILY, (Reported) Entered as Reported by: PRISCILLA DELGADO on 12/22/201253 Last Action: Last Taken Edited Fluticasone/Umeclidin/Vilanter (Trelegy Ellipta 100-62.5-25) 1 Each Blst.w.dev, 1 PUFF INH DAILY, (Reported) Entered as Reported by: PRISCILLA DELGADO on 11/04/211556 Last Action: Last Taken Edited Furosemide (Furosemide) 40 Mg Tablet, 40 MG PO DAILY, (Reported) Entered as Reported by: PRISCILLA DELGADO on 11/04/211556 Last Action: Last Taken Edited Gabapentin (Gabapentin) 400 Mg Capsule, 400 MG PO TID, (Reported) Entered as Reported by: PRISCILLA DELGADO on 11/04/211556 Last Action: Last Taken Edited Levofloxacin (Levofloxacin) 750 Mg Tablet, 750 MG PO DAILY, (Reported) Entered as Reported by: PRISCILLA DELGADO on 11/09/211546 Last Action: New Order Montelukast Sodium (Montelukast Sodium) 10 Mg Tablet, 10 MG PO HS, (Reported) Entered as Reported by: PRISCILLA DELGADO on 11/04/211556 Last Action: Last Taken Edited Multivits,Ca,Min/Iron/FA/Lycop (Centrum Ultra Men's Tablet) 1 Each Tablet, 1 EACH PO DAILY, (Reported) Entered as Reported by: PRISCILLA DELGADO on 11/04/211556 Last Action: Last Taken Edited Oxycodone HCl (Oxycodone HCl) 5 Mg Tablet, 5 MG PO Q4H PRN for PAIN-SEVERE (8- 10), (Reported) Entered as Reported by: PRISCILLA DELGADO on 11/04/211556 Last Action: Last Taken Edited Potassium Chloride (Potassium Chloride) 20 Meq Tablet.er, 20 MEQ PO DAILY, (Reported) Entered as Reported by: PRISCILLA DELGADO on 11/04/211556 Last Action: Last Taken Edited Prednisone (Prednisone) 10 Mg Tab.ds.pk, MG PO DAILY, (Reported) Entered as Reported by: PRISCILLA DELGADO on 11/09/211546 Last Action: New Order Rivaroxaban (Xarelto) 20 Mg Tablet, 20 MG PO DAILY, (Reported) Entered as Reported by: PRISCILLA DELGADO on 12/22/20 1254 Last Action: Last Taken Edited Tamsulosin HCl (Flomax) 0.4 Mg Cap, 0.4 MG PO 1800, (Reported) Entered as Reported by: PRISCILLA DELGADO on 11/04/211556 Last Action: Last Taken Edited Discontinued Medications Levofloxacin (Levofloxacin) 750 Mg Tablet, 750 MG PO DAILY Discontinued Reason: No Longer Taking Prescribed by: CLAU DUONG on 11/06/21 1022 Last Action: Discontinued Prednisone (Prednisone) 10 Mg Tab.ds.pk, 10 MG PO DAILY Discontinued Reason: No Longer Taking Prescribed by: CLAU DUONG on 11/06/21 1022 Last Action: Discontinued Past Aculnoz-Uoufss-Aotakt Hx Patient Social History Tobacco Use?: Yes Smoking Status: Former Smoker Additional substance use comme: FORMER Immunizations Up To Date Tetanus Booster (TDap): Less than 5yrs PED Vaccines UTD: No First/Initial COVID19 Vaccinat: February COVID19 Vaccination Hemanth: March COVID19 Vaccination Date: FEBRUARY Seasonal Allergies Seasonal Allergies: Yes (hayfever) Past Medical History Surgery/Hospitalization HX: AFIB PNEUMONIA Surgeries: Yes (hernia repair, l ankle, l wrist, ) Orthopedic Respiratory: Yes Pneumonia, COPD Currently Using CPAP: No Currently Using BIPAP: No Cardiac: Yes Atrial Fibrillation, Deep Vein Thrombosis, Hypertension Neurological: Yes (neuralgia) Neuropathy Sexually Transmitted Disease: No HIV/AIDS: No Genitourinary: No Renal Failure Gastrointestinal: Yes Abdominal Hernia, Gastrointestinal Bleed Musculoskeletal: No Chronic Back Pain Endocrine: No HEENT: No (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 oz. kg; 18.41 BMI Method: Focused Exam Lactate Level 11/09/21 01:28: Lactic Acid Level 0.84 Lactic Acid Level Laboratory Tests Test 11/09/21 01:28 Lactic Acid Level 0.84 MMOL/L (0.50-2.00) Procedures/Interventions Date of ETT Placement: January 17, 2020 Time of ETT Placement: 0806 Progress/Results/Core Measures Suspected Sepsis SIRS Temperature: Pulse: Respiratory Rate: Laboratory Tests 11/09/21 01:28: White Blood Count 10.9 Blood Pressure / Mean: 11/09/21 01:28: Lactic Acid Level 0.84 Laboratory Tests 11/09/21 01:28: Creatinine 0.47L, INR Comment 1.0, Platelet Count 582H, Total Bilirubin 0.5 Results/Orders Lab Results Laboratory Tests Test 11/09/21 01:28 11/09/21 01:40 11/09/21 02:53 Range/Units White Blood Count 10.9 4.3-11.0 10^3/uL Red Blood Count 4.60 4.30-5.52 10^6/uL Hemoglobin 14.1 # 13.3-17.7 g/dL Hematocrit 43 40-54 % Mean Corpuscular Volume 94 80-99 fL Mean Corpuscular Hemoglobin 31 25-34 pg Mean Corpuscular Hemoglobin Concent 33 32-36 g/dL Red Cell Distribution Width 13.3 10.0-14.5 % Platelet Count 582 H 130-400 10^3/uL Mean Platelet Volume 9.3 9.0-12.2 fL Immature Granulocyte % (Auto) 1 % Neutrophils (%) (Auto) 71 42-75 % Lymphocytes (%) (Auto) 19 12-44 % Monocytes (%) (Auto) 7 0-12 % Eosinophils (%) (Auto) 3 0-10 % Basophils (%) (Auto) 0 0-10 % Neutrophils # (Auto) 7.7 1.8-7.8 10^3/uL Lymphocytes # (Auto) 2.1 1.0-4.0 10^3/uL Monocytes # (Auto) 0.7 0.0-1.0 10^3/uL Eosinophils # (Auto) 0.3 0.0-0.3 10^3/uL Basophils # (Auto) 0.0 0.0-0.1 10^3/uL Immature Granulocyte # (Auto) 0.1 0.0-0.1 10^3/uL Erythrocyte Sedimentation Rate 16 0-30 MM/HR Prothrombin Time 13.2 12.2-14.7 SEC INR Comment 1.0 0.8-1.4 Activated Partial Thromboplast Time 39 H 24-35 SEC D-Dimer < 0.27 0.00-0.49 UG/ML Sodium Level 135 135-145 MMOL/L Potassium Level 3.7 3.6-5.0 MMOL/L Chloride Level 92 L 98-107 MMOL/L Carbon Dioxide Level 33 H 21-32 MMOL/L Anion Gap 10 5-14 MMOL/L Blood Urea Nitrogen 15 7-18 MG/DL Creatinine 0.47 L 0.60-1.30 MG/DL Estimat Glomerular Filtration Rate 120 BUN/Creatinine Ratio 32 Glucose Level 97 70-105 MG/DL Lactic Acid Level 0.84 0.50-2.00 MMOL/L Calcium Level 8.7 8.5-10.1 MG/DL Corrected Calcium 9.2 8.5-10.1 MG/DL Magnesium Level 2.2 1.6-2.4 MG/DL Total Bilirubin 0.5 0.1-1.0 MG/DL Aspartate Amino Transf (AST/SGOT) 34 5-34 U/L Alanine Aminotransferase (ALT/SGPT) 50 0-55 U/L Alkaline Phosphatase 118 40-136 U/L Total Creatine Kinase 65 30-200 U/L Creatine Kinase MB 5.7 <6.6 NG/ML Myoglobin 44.0 10.0-92.0 NG/ML Troponin I 0.065 H <0.028 NG/ML C-Reactive Protein High Sensitivity 1.82 H 0.00-0.50 MG/DL B-Type Natriuretic Peptide 210.5 H <100.0 PG/ML Total Protein 6.9 6.4-8.2 GM/DL Albumin 3.4 3.2-4.5 GM/DL Amylase Level 58 25-125 U/L Lipase 15 8-78 U/L Procalcitonin 0.03 <0.10 NG/ML Digoxin Level < 0.30 L 0.80-2.00 NG/ML Salicylates Level < 5.0 L 5.0-20.0 MG/DL Acetaminophen Level < 10 L 10-30 UG/ML Serum Alcohol < 10 <10 MG/DL Influenza Type A (RT-PCR) Not Detected Not Detecte Influenza Type B (RT-PCR) Not Detected Not Detecte SARS-CoV-2 RNA (RT-PCR) Not Detected Not Detecte Blood Gas Puncture Site RIGHT RADIAL Blood Gas Patient Temperature 36.4 Arterial Blood pH 7.48 H 7.37-7.43 Arterial Blood Partial Pressure CO2 51 H 35-45 MMHG Arterial Blood Partial Pressure O2 74 L 79-93 MMHG Arterial Blood HCO3 37 H 23-27 MMOL/L Arterial Blood Total CO2 38.9 H 21.0-31.0 MMOL/L Arterial Blood Oxygen Saturation 96 94-100 % Arterial Blood Base Excess 12.8 H -2.5-2.5 MMOL/L Ace Test YES-POS Blood Gas Ventilator Setting NO Blood Gas Inspired Oxygen 3L Urine Color YELLOW Urine Clarity CLEAR Urine pH 8.0 5-9 Urine Specific [place] 1.020 1.016-1.022 Urine Protein NEGATIVE NEGATIVE Urine Glucose (UA) NEGATIVE NEGATIVE Urine Ketones 3+ H NEGATIVE Urine Nitrite NEGATIVE NEGATIVE Urine Bilirubin NEGATIVE NEGATIVE Urine Urobilinogen 0.2 < = 1.0 MG/DL Urine Leukocyte Esterase NEGATIVE NEGATIVE Urine RBC (Auto) NEGATIVE NEGATIVE Urine RBC NONE /HPF Urine WBC NONE /HPF Urine Squamous Epithelial Cells 0-2 /HPF Urine Crystals NONE /LPF Urine Bacteria NEGATIVE /HPF Urine Casts NONE /LPF Urine Mucus NEGATIVE /LPF Urine Culture Indicated NO Urine Opiates Screen POSITIVE H NEGATIVE Urine Oxycodone Screen POSITIVE H NEGATIVE Urine Methadone Screen NEGATIVE NEGATIVE Urine Propoxyphene Screen NEGATIVE NEGATIVE Urine Barbiturates Screen NEGATIVE NEGATIVE Ur Tricyclic Antidepressants Screen NEGATIVE NEGATIVE Urine Phencyclidine Screen NEGATIVE NEGATIVE Urine Amphetamines Screen NEGATIVE NEGATIVE Urine Methamphetamines Screen NEGATIVE NEGATIVE Urine Benzodiazepines Screen POSITIVE H NEGATIVE Urine Cocaine Screen NEGATIVE NEGATIVE Urine Cannabinoids Screen POSITIVE H NEGATIVE Micro Results Microbiology 11/09/21 Urine Culture - Final, Complete NO GROWTH 11/09/21 Blood Culture - Preliminary, Resulted No growth 11/09/21 Blood Culture - Preliminary, Resulted No growth My Orders Orders - CAPRICE MCGHEE DO Cbc With Automated Diff (11/09/21 01:04) Protime With Inr (11/09/21 01:04) Partial Thromboplastin Time (11/09/21 01:04) Comprehensive Metabolic Panel (11/09/21 01:04) Fibrin Degradation Products (11/09/21 01:04) Troponin I [place] (11/09/21 01:04) Chest 1 View, Ap/Pa Only (11/09/21 01:04) Ekg Tracing (11/09/21 01:04) Accucheck Stat ONCE (11/09/21 01:04) Ed Iv/Invasive Line Start (11/09/21 01:04) Ed Iv/Invasive Line Start (11/09/21 01:04) Vital Signs Stroke Patient Q15M (11/09/21 01:04) Ct Head Wo-R/O Stroke (11/09/21 01:04) O2 (11/09/21 01:04) Intake & Output 06,14,22 (11/09/21 01:04) Monitor-Rhythm Ecg Trace Only (11/09/21 01:04) Dysphagia Screening Tool (11/09/21 01:04) Lipid Panel (11/10/21 05:00) Procalcitonin (Pct) (11/09/21 01:04) Hs C Reactive Protein (11/09/21 01:04) Erythrocyte Sedimentation Rate (11/09/21 01:04) Covid 19 Inhouse Test (11/09/21 01:04) Acetaminophen (11/09/21 01:04) Alcohol (11/09/21 01:04) Drug Screen Stat (Urine) (11/09/21 01:04) Magnesium (11/09/21 01:04) Salicylate (11/09/21 01:04) Myoglobin Serum (11/09/21 01:04) Influenza A And B By Pcr (11/09/21 01:04) Isolation Central Supply Req (11/09/21 01:04) Arterial Blood Gas (11/09/21 01:40) Albuterol/Ipra Inhalation Soln (Duoneb I (11/09/21 01:30) Dexamethasone Injection (Decadron Injec (11/09/21 01:30) Rt Request For Service (11/09/21 01:25) Methylprednisolone Sod Succ (Solu-Medrol (11/09/21 01:25) Svn Small Volume Nebulizer (11/09/21 01:25) Ekg Tracing (11/09/21 01:25) Digoxin (11/09/21 01:29) Blood Culture (11/09/21 01:31) Urinalysis (11/09/21 01:31) Urine Culture (11/09/21 01:31) Ed Iv/Invasive Line Start (11/09/21 01:31) Vital Signs Adult Sepsis Patie Q15M (11/09/21 01:31) O2 (11/09/21 01:31) Remove Rings In Anticipation O (11/09/21 01:31) Lactic Acid Analyzer (11/09/21 01:31) Amylase (11/09/21 01:32) Bnp [place] (11/09/21 01:32) Creatine Kinase (11/09/21 01:32) Creatine Kinase Mb (11/09/21 01:32) Lipase (11/09/21 01:32) Aspirin Chewable Tablet (Baby Aspirin Ch (11/09/21 01:45) Doxycycline Injection (Vibramycin Inject (11/09/21 02:30) Cefepime Injection (Maxipime Injection) (11/09/21 02:30) Ct Angio Head/Neck (11/09/21 02:28) Straight Cath For Spec.-Adult (11/09/21 02:38) Ekg Tracing (11/09/21 02:42) Iohexol Injection (Omnipaque 350 Mg/Ml 1 (11/09/21 03:30) Received Contrast (Hold Metformin- Contr (11/09/21 03:30) Ns (Ivpb) (Sodium Chloride 0.9% Ivpb Bag (11/09/21 03:30) Medications Given in ED Vital Signs/I&O 11/09/21 11/09/21 11/09/21 11/09/21 01:00 01:00 01:00 01:45 Temp 36.4 Pulse 103 Resp 20 B/P (MAP) 148/112 (124) Pulse Ox 98 96 O2 Delivery Nasal Cannula Nasal Cannula Nasal Cannula Nasal Cannula O2 Flow Rate 3.00 3.00 3.00 3.00 Capillary Refill : Less Than 3 Seconds Point of Care Testing Finger Stick Blood Glucose: 91 Blood Glucose Action Taken: DR. MCGHEE NOTIFIED. Progress Note : Progress Note GIVEN SOLU-MEDROL AND NEB TREATMENT WITH SIGNIFICANT IMPROVEMENT IN RESPIRATORY SYMPTOMS NO FURTHER COMPLAINTS OF CHEST PAIN O2 SATS 94% ON 3L/NC NO FURTHER COMPLAINTS FOR REMAINDER OF ER STAY Departure Impression Primary Impression: Stroke-like symptoms Additional Impressions: Elevated troponin Chest pain COPD exacerbation Pneumonia History of atrial fibrillation Non-compliance Disposition: ADMITTED INPATIENT Condition: Stable Admissions Decision to Admit Reason: Admit from ER (General) Decision to Admit/Date: Nov 09, 2021 Time/Decision to Admit Time: 05:45 Departure-Patient Inst. Referrals: JAY BAUTISTA MD (PCP/Family) Primary Care Physician Scripts Atorvastatin Calcium (Lipitor) 40 Mg Tablet 40 MG PO HS for 30 Days, #30 TAB Prov: CLAU DUONG MD 11/10/21 Aspirin (Aspirin) 81 Mg Tab.chew 81 MG PO DAILY for 30 Days, #30 TAB Prov: CLAU DUONG MD 11/10/21 CAPRICE MCGHEE DO Nov 09, 2021 02:28
[2021-11-09] MEDS ORDERED: CEFEPIME INJECTION 1,000 MG in NS (IVPB) 50 ML IV ONE (02:30)
[2021-11-09] MEDS ORDERED: DOXYCYCLINE INJECTION 100 MG in NS (IVPB) 100 ML IV ONE (02:30)
[2021-11-09 02:37] LABS: FIBRIN DEGRADATION PRODUCTS < 0.27 UG/ML (0.00-0.49); PARTIAL THROMBOPLASTIN TIME 39 SEC (24-35); PROTHROMBIN TIME PATIENT 13.2 SEC (12.2-14.7)
[2021-11-09 03:01] LABS: BILIRUBIN,URINE NEGATIVE (NEGATIVE); CLARITY,URINE CLEAR; COLOR,URINE YELLOW; GLUCOSE, URINE (UA) NEGATIVE (NEGATIVE); KETONES,URINE 3+ (NEGATIVE); LEUKOCYTE ESTERASE ,URINE NEGATIVE (NEGATIVE); NITRITE,URINE NEGATIVE (NEGATIVE); PROTEIN,URINE NEGATIVE (NEGATIVE)
[2021-11-09 03:07] LABS: BACTERIA,URINE NEGATIVE /HPF; SQUAMOUS EPITHELIAL CELL,UR 0-2 /HPF
[2021-11-09 03:16] LABS: AMPHETAMINE SCREEN, URINE NEGATIVE (NEGATIVE); BARBITURATE SCREEN URINE NEGATIVE (NEGATIVE); BENZODIAZEPINES SCREEN URINE POSITIVE (NEGATIVE); CANNABINOID SCREEN, URINE POSITIVE (NEGATIVE); COCAINE SCREEN URINE NEGATIVE (NEGATIVE); METHADONE STAT NEGATIVE (NEGATIVE); METHAMPHETAMINE SCREEN URINE S NEGATIVE (NEGATIVE); OPIATE SCREEN URINE POSITIVE (NEGATIVE); OXYCODONE STAT POSITIVE (NEGATIVE); PROPOXYPHENE STAT NEGATIVE (NEGATIVE); TRICYCLIC ANTIDEPRESSANTS SCRE NEGATIVE (NEGATIVE)
[2021-11-09] MEDS ORDERED: IOHEXOL 350 MG/ML 100 ML (OMNIPAQUE 350) VIAL IV ONE (03:30)
[2021-11-09] MEDS ORDERED: HOLD METFORMIN - RECEIVED CONTRAST 20 ML VIAL IV SCH (03:30)
[2021-11-09] MEDS ORDERED: NS 100 ML (IVPB) BAG IV ONE (03:30)
--- NOTE | 2021-11-09 06:25 | Diagnostic Imaging Report ---
PROCEDURE: CT head wo r/o stroke. TECHNIQUE: Multiple contiguous axial images were obtained through the brain without the use of intravenous contrast. Auto Exposure Controls were utilized during the CT exam to meet ALARA standards for radiation dose reduction. INDICATION: Stroke. COMPARISON: None. FINDINGS: Age-related cerebral volume loss and chronic microvascular changes are present. There is no focus of acute ischemia or hemorrhage. There is no midline shift or mass effect. No extra-axial fluid collection or mass is identified. There are chronic areas of encephalomalacia in the bifrontal and right temporal lobes compatible with prior ischemia. No dense vessel sign is identified. The bony calvarium, paranasal sinuses and mastoids are unremarkable. IMPRESSION: Chronic frontal and right temporal changes. No focus of acute ischemia or hemorrhage identified. Agree with preliminary report. Dictated by: Dictated on workstation # [id number]
--- NOTE | 2021-11-09 07:08 | Diagnostic Imaging Report ---
INDICATION: Stroke COMPARISON: 11/04/2021 FINDINGS: Single view the chest demonstrates hyperinflation and chronic parenchymal changes compatible with COPD and scarring. There hs been no interval change. There is no pneumothorax. The heart is slightly enlarged without pulmonary edema. Osseous structures stable. IMPRESSION: COPD with chronic parenchymal scarring. Dictated by: Dictated on workstation # [id number]
--- NOTE | 2021-11-09 07:13 | Diagnostic Imaging Report ---
PROCEDURE: CT angiography of the head and CT angiography of the neck with and without contrast. TECHNIQUE: Contiguous noncontrast images were obtained from the skull base through the vertex. After intravenous contrast administration, helical CT angiography of the neck was performed. Source data was reformatted into 3D MIP projections. Delayed post contrast acquisition was also obtained. Auto Exposure Controls were utilized during the CT exam to meet ALARA standards for radiation dose reduction. INDICATION: Stroke COMPARISON: None. FINDINGS: Centrilobular emphysema seen in the upper lung zones. Visualized arch anatomy is normal. Vertebral arteries are codominant. Trace atherosclerotic disease is seen in the carotid bulbs. There is some mild atherosclerotic disease involving the carotid siphons. Otherwise, the [place] post[place] of [place] is intact. Basilar artery normal. There is no LVO, aneurysm or AVM. Venous structures are unremarkable. There is no abnormal enhancement or mass. There is chronic encephalomalacia in the bi-frontal and the right temporal lobe. IMPRESSION: 1. No LVO identified. 2. Advanced centrilobular emphysema in the visualized upper lung zones. Dictated by: Dictated on workstation # [id number]
[2021-11-09] MEDS ORDERED: NITROGLYCERIN 0.4 MG SL TABS BTL 25'S SL PRN (07:15)
[2021-11-09] MEDS ORDERED: ONDANSETRON 4 MG/2 ML (SDV) Z0FRAN IVP PRN (07:15)
[2021-11-09] MEDS ORDERED: morphine INJ 4 MG/ML 1 ML (VIAL/SYRINGE) IV PRN (07:15)
[2021-11-09] MEDS ORDERED: ALPRAZolam 0.5 MG (XANAX) TAB PO PRN (07:30)
[2021-11-09] MEDS ORDERED: predniSONE 20 MG TAB PO ONE (08:00)
[2021-11-09] MEDS ORDERED: LEVOFLOXACIN 750 MG/D5W 150 ML PRE-MIX IV SCH (08:00)
[2021-11-09] MEDS ORDERED: methylPREDNISolone 125 MG (Solu-MEDROL) VIAL IVP SCH (08:00)
[2021-11-09] MEDS: ASPIRIN E.C. 81 MG (ECOTRIN) TAB PO SCH (08:42)
[2021-11-09] MEDS: GABAPENTIN 400 MG (NEURONTIN) CAP PO SCH ×3 (08:42→20:09)
[2021-11-09] MEDS: FUROSEMIDE 20 MG (LASIX) TAB PO SCH (08:43)
[2021-11-09] MEDS: DULoxetine 30 MG (CYMBALTA) CAP PO SCH (08:44)
[2021-11-09] MEDS: BACLOFEN 10 MG (LIORESAL) TAB PO SCH ×3 (08:44→20:09)
[2021-11-09] MEDS: DIGOXIN 0.25 MG (LANOXIN) TAB PO SCH (09:39)
--- NOTE | 2021-11-09 10:03 | Consultation-Cardiology ---
HPI-Cardiology Cardiology Consultation Date of Consultation 11/09/21 Date of Admission Time Seen by Provider: 09:57 Indication: Chest pain HPI 61-year old gentleman with history of hypertension, peripheral arterial disease, was hospitalized recently for pneumonia. Patient returned to the emergency room for slurred speech and facial droop and generalized weakness. He was noted to have mild elevation in troponin. On my evaluation patient was hungry asking for food, reporting improvement in his facial numbness. His chest pain has improved. No palpitation. No syncope. Home Medications & Allergies Allergies: Coded Allergies: No Known Drug Allergies (Verified , 07/11/09) Home Medication List Reviewed: Yes [id number] Hx Patient Social History Drug of Choice: "marijuana in the 80's and 's" Smoking Status: Former Smoker Type Used: Cigarettes Recent Hopitalizations: Yes Have you traveled recently?: No Alcohol Use?: No Immunizations Up To Date Tetanus Booster (TDap): Less than 5yrs Date of Influenza Vaccine: Sep 08, 2021 Past Medical History Discussed below Family Medical History Significant Family History: No Pertinent Family Hx, Other Conditions/Hx Family History: Alcoholism 19 FATHER 19 MOTHER Arthritis 19 FATHER 19 MOTHER Review of Systems-General Review of Systems Constitutional: no symptoms reported, see HPI EENTM: see HPI, no symptoms reported Respiratory: see HPI; No cough; dyspnea on exertion; No hemoptysis, No orthopnea, No phlegm, No short of breath, No stridor, No wheezing, No other Cardiovascular: see HPI, chest pain; No edema, No Hx of Intervention, No palpitations, No syncope, No vascular heart diseas, No other Gastrointestinal: no symptoms reported, see HPI Genitourinary: no symptoms reported, see HPI Musculoskeletal: no symptoms reported, see HPI Skin: no symptoms reported, see HPI Psychiatric/Neurological: No Symptoms Reported, See HPI Reviewed Test Results Reviewed Test Results Lab Laboratory Tests Test 11/09/21 01:28 11/09/21 01:40 11/09/21 02:53 Range/Units White Blood Count 10.9 4.3-11.0 10^3/uL Red Blood Count 4.60 4.30-5.52 10^6/uL Hemoglobin 14.1 # 13.3-17.7 g/dL Hematocrit 43 40-54 % Mean Corpuscular Volume 94 80-99 fL Mean Corpuscular Hemoglobin 31 25-34 pg Mean Corpuscular Hemoglobin Concent 33 32-36 g/dL Red Cell Distribution Width 13.3 10.0-14.5 % Platelet Count 582 H 130-400 10^3/uL Mean Platelet Volume 9.3 9.0-12.2 fL Immature Granulocyte % (Auto) 1 % Neutrophils (%) (Auto) 71 42-75 % Lymphocytes (%) (Auto) 19 12-44 % Monocytes (%) (Auto) 7 0-12 % Eosinophils (%) (Auto) 3 0-10 % Basophils (%) (Auto) 0 0-10 % Neutrophils # (Auto) 7.7 1.8-7.8 10^3/uL Lymphocytes # (Auto) 2.1 1.0-4.0 10^3/uL Monocytes # (Auto) 0.7 0.0-1.0 10^3/uL Eosinophils # (Auto) 0.3 0.0-0.3 10^3/uL Basophils # (Auto) 0.0 0.0-0.1 10^3/uL Immature Granulocyte # (Auto) 0.1 0.0-0.1 10^3/uL Erythrocyte Sedimentation Rate 16 0-30 MM/HR Prothrombin Time 13.2 12.2-14.7 SEC INR Comment 1.0 0.8-1.4 Activated Partial Thromboplast Time 39 H 24-35 SEC D-Dimer < 0.27 0.00-0.49 UG/ML Sodium Level 135 135-145 MMOL/L Potassium Level 3.7 3.6-5.0 MMOL/L Chloride Level 92 L 98-107 MMOL/L Carbon Dioxide Level 33 H 21-32 MMOL/L Anion Gap 10 5-14 MMOL/L Blood Urea Nitrogen 15 7-18 MG/DL Creatinine 0.47 L 0.60-1.30 MG/DL Estimat Glomerular Filtration Rate 120 BUN/Creatinine Ratio 32 Glucose Level 97 70-105 MG/DL Lactic Acid Level 0.84 0.50-2.00 MMOL/L Calcium Level 8.7 8.5-10.1 MG/DL Corrected Calcium 9.2 8.5-10.1 MG/DL Magnesium Level 2.2 1.6-2.4 MG/DL Total Bilirubin 0.5 0.1-1.0 MG/DL Aspartate Amino Transf (AST/SGOT) 34 5-34 U/L Alanine Aminotransferase (ALT/SGPT) 50 0-55 U/L Alkaline Phosphatase 118 40-136 U/L Total Creatine Kinase 65 30-200 U/L Creatine Kinase MB 5.7 <6.6 NG/ML Myoglobin 44.0 10.0-92.0 NG/ML Troponin I 0.065 H <0.028 NG/ML C-Reactive Protein High Sensitivity 1.82 H 0.00-0.50 MG/DL B-Type Natriuretic Peptide 210.5 H <100.0 PG/ML Total Protein 6.9 6.4-8.2 GM/DL Albumin 3.4 3.2-4.5 GM/DL Amylase Level 58 25-125 U/L Lipase 15 8-78 U/L Procalcitonin 0.03 <0.10 NG/ML Digoxin Level < 0.30 L 0.80-2.00 NG/ML Salicylates Level < 5.0 L 5.0-20.0 MG/DL Acetaminophen Level < 10 L 10-30 UG/ML Serum Alcohol < 10 <10 MG/DL Influenza Type A (RT-PCR) Not Detected Not Detecte Influenza Type B (RT-PCR) Not Detected Not Detecte SARS-CoV-2 RNA (RT-PCR) Not Detected Not Detecte Blood Gas Puncture Site RIGHT RADIAL Blood Gas Patient Temperature 36.4 Arterial Blood pH 7.48 H 7.37-7.43 Arterial Blood Partial Pressure CO2 51 H 35-45 MMHG Arterial Blood Partial Pressure O2 74 L 79-93 MMHG Arterial Blood HCO3 37 H 23-27 MMOL/L Arterial Blood Total CO2 38.9 H 21.0-31.0 MMOL/L Arterial Blood Oxygen Saturation 96 94-100 % Arterial Blood Base Excess 12.8 H -2.5-2.5 MMOL/L Ace Test YES-POS Blood Gas Ventilator Setting NO Blood Gas Inspired Oxygen 3L Urine Color YELLOW Urine Clarity CLEAR Urine pH 8.0 5-9 Urine Specific [place] 1.020 1.016-1.022 Urine Protein NEGATIVE NEGATIVE Urine Glucose (UA) NEGATIVE NEGATIVE Urine Ketones 3+ H NEGATIVE Urine Nitrite NEGATIVE NEGATIVE Urine Bilirubin NEGATIVE NEGATIVE Urine Urobilinogen 0.2 < = 1.0 MG/DL Urine Leukocyte Esterase NEGATIVE NEGATIVE Urine RBC (Auto) NEGATIVE NEGATIVE Urine RBC NONE /HPF Urine WBC NONE /HPF Urine Squamous Epithelial Cells 0-2 /HPF Urine Crystals NONE /LPF Urine Bacteria NEGATIVE /HPF Urine Casts NONE /LPF Urine Mucus NEGATIVE /LPF Urine Culture Indicated NO Urine Opiates Screen POSITIVE H NEGATIVE Urine Oxycodone Screen POSITIVE H NEGATIVE Urine Methadone Screen NEGATIVE NEGATIVE Urine Propoxyphene Screen NEGATIVE NEGATIVE Urine Barbiturates Screen NEGATIVE NEGATIVE Ur Tricyclic Antidepressants Screen NEGATIVE NEGATIVE Urine Phencyclidine Screen NEGATIVE NEGATIVE Urine Amphetamines Screen NEGATIVE NEGATIVE Urine Methamphetamines Screen NEGATIVE NEGATIVE Urine Benzodiazepines Screen POSITIVE H NEGATIVE Urine Cocaine Screen NEGATIVE NEGATIVE Urine Cannabinoids Screen POSITIVE H NEGATIVE Physical Exam Physical Exam Vital Signs Vital Signs - First Documented Capillary Refill : Less Than 3 Seconds Height, Weight, BMI Height: '" Weight: lbs. oz. kg; 17.07 BMI Method: General Appearance: No Apparent Distress, WD/WN Eyes: Bilateral Eye Normal Inspection, Bilateral Eye PERRL, Bilateral Eye EOMI HEENT: PERRL/EOMI, TMs Normal, Normal ENT Inspection, Pharynx Normal, Moist Mucous Membranes Neck: Full Range of Motion, Normal Inspection, Non Tender, Supple, Carotid Bruit Respiratory: Chest Non Tender, Normal Breath Sounds, No Accessory Muscle Use, No Respiratory Distress Cardiovascular: Regular Rate, Rhythm, No Edema, No Gallop, No JVD, No Murmur, Normal Peripheral Pulses Gastrointestinal: Normal Bowel Sounds, No Organomegaly, No Pulsatile Mass, Non Tender, Soft Back: Normal Inspection, No CVA Tenderness, No Vertebral Tenderness Extremity: Normal Capillary Refill, Normal Inspection, Normal Range of Motion, Non Tender, No Calf Tenderness, No Pedal Edema Neurologic/Psychiatric: Alert, Oriented x3, No Motor/Sensory Deficits, Normal Mood/Affect Skin: Normal Color, Warm/Dry Lymphatic: No Adenopathy A/P-Cardiology Admission Diagnosis Non-ST elevation myocardial infarction Coronary artery disease Peripheral arterial disease Hypertension Assessment/Plan Chest pain, nonspecific etiology resembling angina, mild elevation in troponin. Could be secondary to hypoxemia. I will repeat troponin and evaluate the trend. Coronary artery disease, history of cardiac catheterization done in January 2020 showing mild to moderate disease, 50% stenosis in the mid right coronary artery. I will consider repeating cardiac catheterization if patient continues to have chest pain and elevated troponin. Right side facial droop and numbness, resolved fully. Probably TIA. CT scan of the head did not show any acute infarct. Consider MRI. PVD, history of acute limb ischemia due to embolization probably from atrial fibrillation. Angiogram was carried out December 2019 showing total occlusion with thrombus in the distal SFA, received thrombolytics and reestablished flow. Repeat TOÑITO was normal. Anemia, had EGD done with Dr. Wright previously showing hiatal hernia and gastritis. Managed by medical team. 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 Wright, recovering well, continue to monitor. PAF with RVR on 01/24/20, continue to monitor Left upper lobe mass, was followed by Dr. Eugene, currently followed by primary care physician History of head trauma in or around 2017, was in coma for about a month. Has been on disability Tobaccoism, stopped smoking in December 2019, then went back to smoking reporting that he stopped smoking again about 2 weeks ago. Encouraged to continue with smoking cessation Clinical Quality Measures AMI/AHF: ASA po Prior to arrival: THERESA Estrada MD Nov 09, 2021 10:03
[2021-11-09] MEDS ORDERED: RT-ALBUTEROL SULF 2.5 MG/3 ML PRE-MIX VIAL INH PRN (10:15)
[2021-11-09] MEDS ORDERED: GADOTERATE 0.5 MMOL/ML (CLARISCAN) 15 ML VIAL IV ONE (11:15)
[2021-11-09] MEDS ORDERED: HEParin (CATH LAB) 2,000 ML IV ONE (12:02)
[2021-11-09] MEDS ORDERED: NS IV 1000 ML 1,000 ML ONE (12:02)
[2021-11-09] MEDS ORDERED: LIDOCAINE 1% INJ 20 ML VIAL ONE (12:02)
--- NOTE | 2021-11-09 12:03 | Diagnostic Imaging Report ---
PROCEDURE: MR imaging of the brain without contrast. TECHNIQUE: Multiplanar, multisequence MR imaging of the brain was performed without contrast. INDICATION: Stroke. COMPARISON: CTA head and neck 11/09/2021. FINDINGS: Moderate generalized parenchymal volume loss. Mild nonspecific T2 hyperintensities in the supratentorial white matter compatible with chronic small vessel ischemic change. Encephalomalacia in the inferior frontal lobes and right anterior temporal lobe likely due to prior cerebral contusions given the distribution. No restricted water diffusion. No hemosiderin deposition or evidence of intracranial hemorrhage. Normal morphology of the major midline structures, sella, posterior fossa, and cerebellopontine angle. Normal intracranial flow voids. The orbits are negative. Paranasal sinuses and mastoids are clear. Normal bone marrow signal. IMPRESSION: 1. No evidence of acute infarction or hemorrhage. 2. Age-appropriate generalized parenchymal volume loss and chronic small vessel ischemic change. 3. Encephalomalacia in the inferior frontal lobes and anterior right temporal lobe. This distribution suggests history of a prior cerebral contusion. Dictated by: Dictated on workstation # [id number]
--- NOTE | 2021-11-09 12:10 | Conscious Sedation/ASA ---
Conscious Sedation Pre-Proced Time 12:10 ASA Score 3 For ASA 3 and 4: Consider anesthesia and medical clearance. Also, for patients with a history of failed moderate sedation consider anesthesia. Airway Lungs Heart ASA score ASA 1: a normal healthy patient ASA 2: a patient with a mild systemic disease (mid diabetes, controlled hypertension, obesity x ASA 3: a patient with a severe systemic disease that limits activity (angina, COPD, prior Myocardial infarction) ASA 4: a patient with an incapacitating disease that is a constant threat to life (CHF, renal failure) ASA 5: a moribund patient not expected to survive 24 hrs. (ruptured aneurysm) ASA 6: a declared brain- patient whose organs are being harvested. For emergent operations, add the letter E after the classification Mallampati Classification Grade 3 Sedation Plan Analgesia, Amnesia, Plan communicated to team members, Discussed options with patient/fam, Discussed risks with patient/fam The patient is an appropriate candidate to undergo the planned procedure, sedation, and anesthesia. The patient immediately re-assessed prior to indication. THERESA BELLAMY MD Nov 09, 2021 12:10
[2021-11-09] MEDS ORDERED: MIDAZOLAM 5 MG/5 ML (VERSED) VIAL ONE (12:15)
[2021-11-09] MEDS ORDERED: fentaNYL INJ 100 MCG/2 ML AMP ONE (12:15)
--- NOTE | 2021-11-09 12:41 | Cardiac Cath Report ---
Cardiac Cath Report Physician (s)/Nurse Staff [facility] Physician THERESA BELLAMY MD Pre-Procedure Diagnosis Pre-Procedure Diagnosis: Coronary artery disease Post-Procedure Note Procedure Start Date: Nov 09, 2021 Name of Procedure: Left heart catheterization Left ventriculogram Abdominal aortogram with bilateral runoff Findings/Procedure Note PROCEDURE NOTE: 61 years old gentleman with a history of gangrene in his foot, admitted with chest pain and shortness of breath, had mild elevation in troponin. Had history of peripheral arterial disease, I recommended cardiac catheterization possible PTCA. After explaining the procedure to the patient, all pros and cons were explained, all questions were answered. The patient signed the consent and then he was placed on the cardiac catheterization laboratory. Groin was prepped SL fashion local anesthesia was used. Sheath placed in the right femoral artery. Tk right and left catheter were used to access the coronary system. Pigtail was used to access the left ventricular cavity. Left ventriculogram was done Catheter was pulled down to the abdominal aorta and abdominal aortogram with bilateral runoff down to the trifurcation was done. At the end of the procedure the sheath was removed. Closure device was used FINDINGS: Hemodynamics LV 99/18, end-diastolic pressure of 18 Aorta 96/62 mean of 75 ANATOMY: Left Main is free of obstructive disease Left Anterior Descending is slightly tortuous artery with mild disease nonobstructive disease Left Circumflex has mild disease nonobstructive disease Right Coronary Artery is dominant, tortuous artery with mild disease nonobstructive disease LV Gram was done showing normal left ventricular size, normal systolic function, ejection fraction 60% Aorta evaluation done with abdominal aortogram and bilateral runoff, there is some hypertensive changes in the abdominal aorta, no dissection or aneurysm, n ormal renal arteries, normal iliac artery bilaterally and common femoral arteries. There is slow flow in the SFA bilaterally but no obstructive disease down to the trifurcation CONCLUSION: 1. Mild coronary artery disease nonobstructive disease 2. Normal left ventricular size and systolic function estimate ejection fraction 60% 3. Normal abdominal aorta and bifurcation with runoff down to the trifurcation with slow flow in the SFA bilaterally, probably small vessel disease distally DISCUSSION AND RECOMMENDATION: Maximizing medical therapy, no intervention is recommended Anesthesia Type: Conscious Sedation Estimated blood loss (mL): 15 ml Contrast Amount: 70 ml Total Radiation Dose: 105 mGy Post-Procedure Diagnosis Post-operative diagnosis: Chest pain Coronary artery disease Peripheral arterial disease Hypertension THERESA BELLAMY MD Nov 09, 2021 12:41
[2021-11-09] MEDS ORDERED: PATIENT MAY USE OWN MEDS, ALL PO SCH (12:45)
[2021-11-09] MEDS: RT--FLUTICASONE/SALMETEROL 113-14 (AIRDUO RespiCLICK) IH SCH ×2 (13:24→19:33)
[2021-11-09] MEDS: UMECLIDINIUM BROMIDE (INCRUSE ELLIPTA) 7'S IH SCH (13:25)
[2021-11-09] MEDS: NS IV 1000 ML 1,000 ML IV SCH ×2 (13:38→22:47)
[2021-11-09] MEDS: RT-ALBUTEROL/IPRATROPIUM 3 ML (DUONEB) VIAL INH SCH ×2 (14:25→19:31)
--- NOTE | 2021-11-09 14:43 | Occ Therapy Progress Note ---
Therapy Progress Note OT orders received and chart was reviewed. Per chart, pt underwent cardiac cath this afternoon. Pt currently on bedrest. OT to attempt again 11/10/21 if medically appropriate. Brianda Oneal OT Nov 09, 2021 14:43
--- NOTE | 2021-11-09 14:52 | History & Physical-Hospitalist ---
History of Present Illness HPI/Chief Complaint Moshe Soto is a 61 year old male with PMH HTN ,AFib, CAD, PVD, tobacco abuse, COPD, who presented with stroke like symptoms. He was having speech difficulty. He reports facial droop. He reports numbness on the right side of his face. He does not have any weakness in his arms or legs. He was having chest pain and lucila rtness of breath. He denies fevers and chills. He denies abdominal pain, nausea, vomiting, diarrhea. He has been compliant with his blood thinners. He has been taking steroids and antibiotics. Source: patient Exam Limitations: no limitations Date Seen 11/09/21 Time Seen by a Provider: 08:55 Attending Physician Juanjo Wills MD PCP Callum Davenport MD Referring Physician Date of Admission Nov 09, 2021 at 05:45 Home Medications & Allergies Home Medications Reviewed patient Home Medication Reconciliation performed by pharmacy medication reconciliations tire maintenance technician and/or nursing. Patients Allergies have been reviewed. Allergies Allergies Coded Allergies No Known Drug Allergies ([id number]/25/09) Past [id number]-Uyjlke-[id number] Hx Patient Social History Tobacco Use?: No Smoking Status: Former Smoker Substance use?: No Additional substance use comme: FORMER Alcohol Use?: No Additional Alcohol Comments: QUIT 6 MO AGO Pt feels they are or have been: No Immunizations Up To Date Date of Influenza Vaccine: Sep 08, 2021 First/Initial COVID19 Vaccinat: BYRON Second COVID19 Vaccination Hemanth: MARCH Tetanus Booster (TDap): Unknown Hepatitis A: No Hepatitis B: No PED Vaccines UTD: No Seasonal Allergies Seasonal Allergies: Yes (hayfever) Current Status Advance Directives: No Communicates: Verbally Primary Language: Frisian Preferred Spoken Language: Frisian Is interpretation needed?: No Implanted or Applied Medical D: None Past Medical History Surgeries: Orthopedic Pneumonia, COPD Currently Using CPAP: No Currently Using BIPAP: No Atrial Fibrillation, Deep Vein Thrombosis, Hypertension Neuropathy Sexually Transmitted Disease: No HIV/AIDS: No Renal Failure Abdominal Hernia, Gastrointestinal Bleed Chronic Back Pain Tinnitis Loss of Vision: Denies Hearing Impairment: Deaf Recent Skin Changes Blood Disorders: No Adverse Reaction/Blood Tranf: No Family Medical History Alcoholism 19 FATHER 19 MOTHER Arthritis 19 FATHER 19 MOTHER No Pertinent Family Hx, Other Conditions/Hx Review of Systems Constitutional: no symptoms reported EENTM: no symptoms reported Respiratory: short of breath Cardiovascular: chest pain Gastrointestinal: no symptoms reported Genitourinary: no symptoms reported Musculoskeletal: no symptoms reported Skin: no symptoms reported Psychiatric/Neurological: Numbness Physical Exam Physical Exam Vital Signs Vital Signs - First Documented Capillary Refill : Less Than 3 Seconds Height, Weight, BMI Height: '" Weight: lbs. oz. kg; 17.07 BMI Method: General Appearance: No Apparent Distress, WD/WN HEENT: PERRL/EOMI, Pharynx Normal Neck: Normal Inspection, Supple Respiratory: Lungs Clear, Normal Breath Sounds, No Respiratory Distress Cardiovascular: Regular Rate, Rhythm, No Edema, No Murmur Gastrointestinal: Normal Bowel Sounds, Non Tender, Soft Extremity: Normal Inspection, Non Tender, No Pedal Edema Neurologic/Psychiatric: Alert, Oriented x3, Normal Mood/Affect Skin: Normal Color, Warm/Dry Results Results/Procedures Labs Laboratory Tests 11/09/21 01:28 Patient resulted labs reviewed. Imaging: Reviewed Imaging Report Assessment/Plan Admission Diagnosis Stroke like symptoms Admission Status: Inpatient Order (span 2 midnights) Reason for Inpatient Admission: Stroke evaluation Assessment and Plan Stroke like symptoms Possible TIA CT head negative CTA negative, no evidence of carotid stenosis MRI with no acute infarction Continue ASA Begin Lipitor PT/OT Elevated troponin CAD Cardiology consulted Left heart cath without significant lesion No intervention required COPD exacerbation with lower respiratory tract infection Continue steroids Continue Levaquin MAT protocol HTN AFib BPH PVD Continue home meds DVT prophylaxis: already receiving therapeutic anticoagulation Diagnosis/Problems Diagnosis/Problems (1) Stroke-like symptoms Status: Acute (2) Elevated troponin Status: Acute (3) Chronic respiratory failure with hypoxia Status: Chronic (4) COPD exacerbation Status: Acute (5) Paroxysmal atrial fibrillation Status: Chronic (6) HTN (hypertension) Status: Chronic (7) CAD (coronary artery disease) Status: Chronic (8) PVD (peripheral vascular disease) Status: Chronic (9) Tobacco abuse Status: Chronic Clinical Quality Measures AMI/AHF: ASA po Prior to arrival: CLAU Young MD Nov 09, 2021 14:52
[2021-11-09] MEDS ORDERED: CEFEPIME 2,000 MG/NS 50 ML IVPB IV SCH ×2 (15:00)
[2021-11-09] MEDS ORDERED: PRED10TA22 PO (15:47)
[2021-11-09] MEDS ORDERED: LEVO750T39 PO (15:47)
--- NOTE | 2021-11-09 16:05 | Physical Therapy Progress Note ---
Therapy Progress Note Received orders for PT evaluation but it seems patient had a heart cath this afternoon. Will try back in the morning. MARKO REID PT Nov 09, 2021 16:05
[2021-11-09] MEDS ORDERED: RIVAROXABAN 20 MG TABLET (XARELTO) PO SCH (17:00)
[2021-11-09] MEDS ORDERED: TAMSULOSIN 0.4 MG (FLOMAX) CAP PO SCH (18:00)
[2021-11-09] MEDS: ACETAMINOPHEN 500 MG TAB (TYLENOL) PO PRN (20:09)
[2021-11-09] MEDS ORDERED: MONTELUKAST 10 MG (SINGULAIR) TAB PO SCH (21:00)
[2021-11-10] MEDS: RT-ALBUTEROL/IPRATROPIUM 3 ML (DUONEB) VIAL INH SCH ×2 (02:57→07:26)
[2021-11-10 04:01] VITALS: BP 98/65
[2021-11-10 05:29] LABS: BASOPHILS % (AUTO) 0 % (0-10); EOSINOPHILS % (AUTO) 0 % (0-10); HEMATOCRIT 38 % (40-54); HEMOGLOBIN 12.4 g/dL (13.3-17.7); LYMPHOCYTES # (AUTO) 1.8 10^3/uL (1.0-4.0); LYMPHOCYTES % (AUTO) 21 % (12-44); MEAN CORPUSCULAR HEMOGLOBIN 31 pg (25-34); MEAN CORPUSCULAR HGB CONC 33 g/dL (32-36); MEAN CORPUSCULAR VOLUME 94 fL (80-99); MEAN PLATELET VOLUME 9.2 fL (9.0-12.2); MONOCYTES # (AUTO) 0.7 10^3/uL (0.0-1.0); MONOCYTES % (AUTO) 8 % (0-12); NEUTROPHILS # (AUTO) 6.2 10^3/uL (1.8-7.8); NEUTROPHILS % (AUTO) 70 % (42-75); PLATELET COUNT 484 10^3/uL (130-400); WHITE BLOOD COUNT 8.8 10^3/uL (4.3-11.0)
[2021-11-10 05:38] LABS: POTASSIUM 3.1 MMOL/L (3.6-5.0)
[2021-11-10 05:39] LABS: CALCIUM 7.9 MG/DL (8.5-10.1)
[2021-11-10 05:44] LABS: CREATININE SERUM 0.56 MG/DL (0.60-1.30)
[2021-11-10] MEDS ORDERED: predniSONE 20 MG TAB PO SCH (07:00)
[2021-11-10] MEDS: UMECLIDINIUM BROMIDE (INCRUSE ELLIPTA) 7'S IH SCH (07:27)
[2021-11-10] MEDS: RT--FLUTICASONE/SALMETEROL 113-14 (AIRDUO RespiCLICK) IH SCH (07:27)
[2021-11-10 08:00] VITALS: BP 97/63
--- NOTE | 2021-11-10 08:38 | Cardiology Progress Note ---
Subjective Date Seen by Provider: Nov 10, 2021 Time Seen by Provider: 08:36 Subjective/Events-last exam Patient is complaining of left-sided chest pain worse with laying down on his side or coughing and taking a deep breath Review of Systems General: No Chills, No Night Sweats, No Fatigue, No Malaise, No Appetite, No Other HEENT: No Head Aches, No Visual Changes, No Eye Pain, No Ear Pain, No Dysphasia, No Sinus Congestion, No Post Nasal Drip, No Sore Throat, No Other Pulmonary: Dyspnea, Cough; No Pleuritic Chest Pain, No Other Cardiovascular: Chest Pain; No: Palpitations, Orthopnea, Paroxysmal Noc. Dyspnea, Edema, Lt Headedness, Other Focused Exam Lactate Level 11/09/21 01:28: Lactic Acid Level 0.84 Objective-Cardiology Exam Last Set of Vital Signs Vital Signs 11/10/21 08:00 Temp 37.5 Pulse 90 Resp 20 B/P (MAP) 97/63 (74) Pulse Ox 94 O2 Delivery Nasal Cannula O2 Flow Rate 4.00 I&O Intake and Output 11/10/21 00:00 Intake Total 1375 ml Output Total 600 ml Balance 775 ml Intake Oral 225 ml IV Total 1150 ml Output Urine Total 600 ml # Voids 2 Daily Weight Change Yes, 14-23 lbs General: Alert, Oriented X3, Cooperative HEENT: Atraumatic, PERRLA Neck: Supple, No JVD, No Thyromegaly Lungs: Clear to Auscultation, Normal Air Movement Heart: Regular Rate, Normal S1, Normal S2, No Murmurs Abdomen: Normal Bowel Sounds, Soft, No Tenderness, No Hepatosplenomegaly, No Masses Extremities: No Clubbing, No Cyanosis, No Edema, Normal Pulses, No Tenderness/Swelling Skin: No Rashes, No Breakdown, No Significant Lesion Neuro: Normal Gait, Normal Speech, Strength at 5/5 X4 Ext, Normal Tone, Sensation Intact Psych/Mental Status: Mental Status NL, Mood NL Results Lab Laboratory Tests 11/10/21 05:00 A/P-Cardiology Admission Diagnosis Non-ST elevation myocardial infarction Coronary artery disease Peripheral arterial disease Hypertension Assessment/Plan Chest pain, musculoskeletal, probably pleurisy. Had a recent pneumonia. Managed by primary care physician Coronary artery disease, history of cardiac catheterization done in January 2020 showing mild to moderate disease, 50% stenosis in the mid right coronary artery, repeat cardiac catheterization was done on November 09, 2021 showing mild to moderate disease nonobstructive coronary artery disease. Right side facial droop and numbness, resolved fully. Probably TIA. CT scan of the head did not show any acute infarct. Consider MRI. PVD, history of acute limb ischemia due to embolization probably from atrial fibrillation. Angiogram was carried out December 2019 showing total occlusion with thrombus in the distal SFA, received thrombolytics and reestablished flow. Repeat TOÑITO was normal. Anemia, had EGD done with Dr. Wright previously showing hiatal hernia and gastritis. Managed by medical team. 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 Wright, recovering well, continue to monitor. PAF with RVR on 01/24/20, continue to monitor Left upper lobe mass, was followed by Dr. Eugene, currently followed by primary care physician History of head trauma in or around 2017, was in coma for about a month. Has b een on disability Tobaccoism, stopped smoking in December 2019, then went back to smoking reporting that he stopped smoking again about 2 weeks ago. Encouraged to continue with smoking cessation Cardiac status is stable, okay for discharge from cardiology standpoint THERESA BELLAMY MD Nov 10, 2021 08:38
[2021-11-10] MEDS: DULoxetine 30 MG (CYMBALTA) CAP PO SCH (09:10)
[2021-11-10] MEDS: NS IV 1000 ML 1,000 ML IV SCH (09:10)
[2021-11-10] MEDS: BACLOFEN 10 MG (LIORESAL) TAB PO SCH ×2 (09:10→12:09)
[2021-11-10] MEDS: DIGOXIN 0.25 MG (LANOXIN) TAB PO SCH (09:10)
[2021-11-10] MEDS: ASPIRIN E.C. 81 MG (ECOTRIN) TAB PO SCH (09:10)
[2021-11-10] MEDS: GABAPENTIN 400 MG (NEURONTIN) CAP PO SCH ×2 (09:10→12:09)
[2021-11-10] MEDS: FUROSEMIDE 20 MG (LASIX) TAB PO SCH (09:10)
[2021-11-10] MEDS ORDERED: ASPI-999 PO (09:55)
[2021-11-10] MEDS ORDERED: ATOR40TA PO (09:55)
[2021-11-10] MEDS ORDERED: guaiFENesin/DM (ROBITUSSIN DM) 10 ML UDC PO PRN (10:00)
--- NOTE | 2021-11-10 11:45 | Discharge Summary ---
Discharge Summary Instructions for Patient Via [facility], Assessment/Instructions Take medications as prescribed. Resume your steroid taper. Begin aspirin and lipitor. Follow up with Dr. Davenport and Cardiology as scheduled. Return with worsening chest pain, shortness of breath, weakness, or if you feel like you are getting worse. Physician to follow Patient: Ethel Discharge Diet for Home: Low Sodium Diet Hospital Course Date of Admission: Nov 09, 2021 at 05:45 Admission Diagnosis : Stroke like symptoms Family Physician/Provider: Callum Davenport MD Date of Discharge: 11/10/21 Discharge Diagnosis: Stroke like symptoms, chest pain, COPD exacerbation Hospital Course: Moshe Soto is a 61 year old male with multiple medical co-morbidities who presented with stroke like symptoms. CT revealed no evidence of acute process. He underwent an MRI which showed no acute abnormalities. He was started on aspirin and lipitor for possible TIA. He also had chest pain and underwent left heart cath with Cardiology which showed coronary artery disease, but no intervention was required. He was continued on steroids and antibiotics for COPD exacerbation with lower respiratory infection which was diagnosed on recent admission. He was discharged home in stable condition. He already has home oxygen set up. He was set up with critical access hospital. He should follow up with Dr. Davenport and Cardiology. Labs and Pending Lab Test: Laboratory Tests 11/10/21 05:00: White Blood Count 8.8, Red Blood Count 4.05L, Hemoglobin 12.4L, Hematocrit 38L, Mean Corpuscular Volume 94, Mean Corpuscular Hemoglobin 31, Mean Corpuscular Hemoglobin Concent 33, Red Cell Distribution Width 13.6, Platelet Count 484H, Mean Platelet Volume 9.2, Immature Granulocyte % (Auto) 1, Neutrophils (%) (Auto) 70, Lymphocytes (%) (Auto) 21, Monocytes (%) (Auto) 8, Eosinophils (%) (Auto) 0, Basophils (%) (Auto) 0, Neutrophils # (Auto) 6.2, Lymphocytes # (Auto) 1.8, Monocytes # (Auto) 0.7, Eosinophils # (Auto) 0.0, Basophils # (Auto) 0.0, Immature Granulocyte # (Auto) 0.1, Sodium Level 136, Potassium Level 3.1L, Chloride Level 100, Carbon Dioxide Level 29, Anion Gap 7, Blood Urea Nitrogen 17, Creatinine 0.56L, Estimat Glomerular Filtration Rate 114, BUN/Creatinine Ratio 30, Glucose Level 140H, Calcium Level 7.9L, Triglycerides Level 75, Cholesterol Level 98, LDL Cholesterol Direct 53, VLDL Cholesterol 15, HDL Cholesterol 30L Home Meds Active Lipitor (Atorvastatin Calcium) 40 Mg Tablet 40 Mg PO HS 30 Days Aspirin 81 Mg Tab.chew 81 Mg PO DAILY 30 Days Reported Levofloxacin 750 Mg Tablet 750 Mg PO DAILY FILLED 11-07-2021 #5/5 DAY SUPPLY Prednisone 10 Mg Tab.ds.pk Mg PO DAILY FILLED 11-07-2021 #21/6 DAY SUPPLY Take 6 tabs(60mg)daily,decrease by 1 tab(10MG)daily. Oxycodone HCl 5 Mg Tablet 5 Mg PO Q4H PRN Centrum Ultra Men's Tablet (Multivits,Ca,Min/Iron/FA/Lycop) 1 Each Tablet 1 Each PO DAILY Furosemide 40 Mg Tablet 40 Mg PO DAILY Montelukast Sodium 10 Mg Tablet 10 Mg PO HS Ventolin Hfa (Albuterol Sulfate) 18 Gm Hfa.aer.ad 2 Puff INH Q6H PRN Alprazolam 0.5 Mg Tablet 1 Mg PO DAILY PRN TAKES 2 (0.5MG) TABS Trelegy Ellipta 100-62.5-25 (Fluticasone/Umeclidin/Vilanter) 1 Each Blst.w.dev 1 Puff INH DAILY Flomax (Tamsulosin HCl) 0.4 Mg Cap 0.4 Mg PO 1800 Gabapentin 400 Mg Capsule 400 Mg PO TID Baclofen 10 Mg Tablet 10 Mg PO TID PRN Potassium Chloride 20 Meq Tablet.er 20 Meq PO DAILY Digoxin 125 Mcg Tablet 250 Mcg PO DAILY TAKES 2 (125MCG) TABS DAILY HOLD IF PULSE IS LESS THEN 60 Duloxetine HCl 60 Mg Capsule.dr 60 Mg PO DAILY Xarelto (Rivaroxaban) 20 Mg Tablet 20 Mg PO DAILY Patient Allergies: Coded Allergies: No Known Drug Allergies (Verified , 07/11/09) Home Health Need/Face to Face Date of Face to Face: Nov 10, 2021 Clinical Findings: Generalized weakness and fatigue, Instability, Muscle weakness, Shortness of breath, Unsteady gait I have seen Pt qgbx-ub-qvbx: Yes Discharged To: Home Diagnosis/Conditions: HTN COPD AFib BPH CAD PVD Problems/Diagnosis/Condition: (1) HTN (hypertension) (2) Paroxysmal atrial fibrillation (3) Chronic respiratory failure with hypoxia (4) COPD exacerbation (5) CAD (coronary artery disease) (6) PVD (peripheral vascular disease) Patient is Homebound due to: Brando fall risk due to instabilty, Muscle weakness, Shortness of breath/distress Homebound Status Due to the above stated illness, injury or surgical procedure (medical condition or diagnosis) and associated clinical findings, the patient is homebound because of his/her inability to leave home except with aid of a supportive device and/or person AND leaving the home requires a considerable and taxing effort or is medically contraindicated. Pt req the following assistanc: Aid of another person Home Health Nursing Orders Home Health Services Order: Nursing Services, Lockstitch Front Maker-Evaluate & Treat, Physical Therapy-Evaluate & Treat Home Health Infusion Therapy Line Start Date: Nov 09, 2021 Therapy Orders Therapy Orders: OT (must have SN or PT order), Physical Therapy Therapy Specific Orders: Eval assistive deivces, Teach enviro modifications/safety, Gait training, Increase strength/endurance Certify Stmt I certify that this patient is under my care and that I, a nurse practitioner or a physician; a administrative services assistant working with me, had a face to face encounter that - meets the physician face to face encounter requirements with this patient as dated. Discharge Physical Exam General: Alert, Oriented X3, Cooperative, No Acute Distress HEENT: Atraumatic, EOMI, Mucous Memb Moist/[place] Lungs: Clear to Auscultation, Normal Air Movement Heart: Regular Rate, Normal S1, Normal S2, No Murmurs Abdomen: Normal Bowel Sounds, Soft, No Tenderness Extremities: No Edema, No Tenderness/Swelling Skin: No Rashes, No Significant Lesion Neuro: Normal Speech, Normal Tone Psych/Mental Status: Mental Status NL, Mood NL CLAU DUONG MD Nov 10, 2021 11:45
--- NOTE | 2021-11-10 11:55 | Physical Therapy Evaluation ---
PT Evaluation-General Medical Diagnosis Admission Date Nov 09, 2021 at 05:45 Medical Diagnosis: stroke-like symptoms Onset Date: Nov 09, 2021 Therapy Diagnosis Therapy Diagnosis: impaired mobility, strength Precautions Precautions/Isolations: Standard Precautions Referral Physician: Roxanne Reason for Referral: Evaluation/Treatment Medical History Pertinent Medical History: Atrial Fib, Alcoholism, COPD, HTN, Renal Insufficiency, Smoking, TBI Additional Medical History Past Medical History Surgeries: Orthopedic Pneumonia, COPD Currently Using CPAP: No Currently Using BIPAP: No Atrial Fibrillation, Deep Vein Thrombosis, Hypertension Neuropathy Sexually Transmitted Disease: No HIV/AIDS: No Renal Failure Abdominal Hernia, Gastrointestinal Bleed Chronic Back Pain Tinnitis Loss of Vision: Denies Hearing Impairment: Deaf Recent Skin Changes Blood Disorders: No Adverse Reaction/Blood Tranf: No Current History Patient had a heart cath yesterday. Social History Home: Single Level Current Living Status: Entry Into Home: Stairs With Railing PT Steps Into Home: 3 Prior Prior Level of Function SCALE: Activities may be completed with or without assistive devices. 5-Xxogkpdmoi-izupzfo completes the activity by him/herself with no assistance from a helper. 5-Set-up or Clean-up Assistance-helper sets up or cleans up; patient completes activity. Aurora assists only prior to or following the activity. 4-Supervision or Touching Assistance-helper provides verbal cues and/or touching/steadying and/or contact guard assistance as patient completes activity. Assistance may be provided throughout the activity or intermittently. 3-Partial/Moderate Assistance-helper does LESS THAN HALF the effort. Aurora lifts, holds or supports trunk or limbs, but provides less than half the effort. 2-Substantial/Maximal Assistance-helper does MORE THAN HALF the effort. Aurora lifts or holds trunk or limbs and provides more than half the effort. 3-Mwsjylzrc-gyuonj does ALL the effort. Patient does none of the effort to complete the activity. Or, the assistance of 2 or more helpers is required for the patient to complete the activity. If activity was not attempted, code reason: 7-Patient Refused. 9-Not Applicable-not attempted and the patient did not perform the activity before the current illness, exacerbation or injury. 10-Not Attempted due to Environmental Limitations-(lack of equipment, weather restraints, etc.). 88-Not Attempted due to Medical Conditions or Safety Concerns. Bed Mobility: 6 Transfers (B,C,W/C): 6 Gait: 6 Indoor Mobility (Ambulation): Independent Prior Devices Use: Walker PT Evaluation-Current Subjective Patient in bed pre tx, agrees to PT, has minor pain in right hip at catheterization site. Pt/Family Goals to be independent at home Objective Patient Orientation: Person, Place, Situation Attachments: Oxygen ROM/Strength ROM Lower Extremities WNL Strength Lower Extremities LLE (hip flexion 3/5, knee flexion 4/5, knee extension 4/5, dorsiflexion 3/5), RLE not tested due to pain but had 3/5 dorsiflexion Sensory Vision: Functional Hearing: Functional Sensation Right Lower Extremit: Intact Sensation Left Lower Extremity: Intact Transfers Roll Left to Right (QC): 6 Sit to Lying (QC): 6 Lying to Sitting/Side of Bed(Q: 6 Sit to Stand (QC): 4 Chair/Jbl-tg-Mjlxn Xfer(QC): 4 Patient was a little dizzy immediately upon standing but only lasted a couple of seconds Gait Does the Patient Walk?: Yes Mode of Locomotion: Walk Anticipated Mode of Locomotion: Walk Walk 10 feet (QC): 4 Distance: 40' Gait Assistive Device: FWW Comments/Gait Description slow ambulation, no LOB Balance Sitting Static: Normal Sitting Dynamic: Normal Standing Static: Good Standing Dynamic: Fair Assessment/Needs Patient in bed post tx with nurse call, phone, tray, all needs met. Patient has impaired mobility, strength, endurance. He does have some dizziness with standing but it only lasts a couple of seconds. Patient is being discharged from the hospital today so will not make goals and will DC from PT services. Rehab Potential: Fair PT Plan Problem List Problem List: Activity Tolerance, Functional Strength, Safety, Balance, Gait, Transfer, ROM Treatment/Plan Treatment Plan: Discontinue PT Treatment Duration: Nov 10, 2021 Frequency: Patient and/or Family Agrees t: Yes Safety Risks/Education Patient Education: Gait Training, Transfer Techniques, Correct Positioning, Safety Issues Teaching Recipient: Patient Teaching Methods: Demonstration, Discussion Response to Teaching: Reinforcement Needed Discharge Recommendations Plan DC Time/GCodes Time In: 1102 Time Out: 1112 Total Billed Treatment Time: 10 Total Billed Treatment 1 visit MARKO HAYES PT Nov 10, 2021 11:55
--- NOTE | 2021-11-10 12:07 | Occupational Therapy Eval ---
OT Evaluation-General/PLF Medical Diagnosis Admission Date Nov 09, 2021 at 05:45 Medical Diagnosis: stroke-like symptoms Onset Date: Nov 09, 2021 Therapy Diagnosis Therapy Diagnosis: reduced endurance, strength Precautions Precautions/Isolations: Standard Precautions Referral Physician: Roxanne Referral Reason: Evaluation/Treatment Medical History Pertinent Medical History: Atrial Fib, Alcoholism, COPD, HTN, Renal Insufficiency, Smoking, TBI Current History Pt presented with stroke like symptoms including speech difficulty and facial droop. He did not have any weakness in his arms or legs. He was having chest pain and shortness of breath. Found to have elevated troponin levels Pt reports living with his brother in a single story home. He was indep with adls prior to admission and shares all the iadl responsibilities with his brother. He uses a walker at baseline. Reviewed History: Yes Social History Home: Single Level Current Living Status: Other Family (brother) Entry Into Home: Stairs With Railing Steps Into Home: 3 ADL-Prior Level of Function SCALE: Activities may be completed with or without assistive devices. 2-Ueeeeeruga-tfsjwrn completes the activity by him/herself with no assistance from a helper. 5-Set-up or Clean-up Assistance-helper sets up or cleans up; patient completes activity. Alex assists only prior to or following the activity. 4-Supervision or Touching Assistance-helper provides verbal cues and/or touching/steadying and/or contact guard assistance as patient completes activity. Assistance may be provided throughout the activity or intermittently. 3-Partial/Moderate Assistance-helper does LESS THAN HALF the effort. Alex lifts, holds or supports trunk or limbs, but provides less than half the effort. 2-Substantial/Maximal Assistance-helper does MORE THAN HALF the effort. Alex lifts or holds trunk or limbs and provides more than half the effort. 5-Dijrquqtc-ieytkx does ALL the effort. Patient does none of the effort to complete the activity. Or, the assistance of 2 or more helpers is required for the patient to complete the activity. If activity was not attempted, code reason: 7-Patient Refused. 9-Not Applicable-not attempted and the patient did not perform the activity before the current illness, exacerbation or injury. 10-Not Attempted due to Environmental Limitations-(lack of equipment, weather restraints, etc.). 88-Not Attempted due to Medical Conditions or Safety Concerns. Self Care: Independent Functional Cognition: Independent DME/Equipment: Bath Chair, Grab Bars, Tub/Shower OT Current Status Subjective Pt reports pain in abdomen, no numerical value given. Appearance Returned to supine in bed, all needs within reach. Mental Status/Objective Patient Orientation: Person, Place, Situation Attachments: IV, Oxygen, Telemetry Current Hand Dominance: Right Upper Extremity ROM WNL Upper Extremity Strength Not tested secondary to complaints of pain in abdomen. Anticipate at least 3+/5 throughout ADL-Treatment Eating (QC): 6 Oral Hygiene (QC): 5 (per clinical judgment) Lower Body Dressing (QC): 4 (per clinical judgment) On/Off Footwear (QC): 6 Pt donned bilateral socks while long sitting in bed, no difficulty. Supine<>sit: Indep. Upon standing, pt requires CGA due to mild unsteadiness. He C/o dizziness, but he reports that is dissipates quickly. He ambulated within room with Close sup/CGA for safety with balance. No LOB during mobility. He was able to maintain static balance with zero UE support for >1 minute. Thus, anticipate no difficulty with clothing management unless symptomatic. Pt does complain of pain in abdomen throughout. Education on energy conservation. Education OT Patient Education: Correct positioning, Energy conservation, Exercise program, Modified ADL techniques, Purpose of tx/functional activities, Safety issues, Transfer techniques Teaching Recipient: Patient Teaching Methods: Discussion Response to Teaching: Verbalize Understanding, Reinforcement Needed OT Plant Protection Officer Goals Alf Goals Time Frame: Nov 14, 2021 Oral Hygiene (QC): 6 Toileting Hygiene (QC): 6 Upper Body Dressing (QC): 6 Lower Body Dressing (QC): 6 1=Demonstrate adherence to instructed precautions during ADL tasks. 2=Patient will verbalize/demonstrate understanding of assistive devices/modifications for ADL. 3=Patient will improve strength/tolerance for activity to enable patient to perform ADL's. OT Education/Plan Problem List/Assessment Assessment: Decreased Activ Tolerance, Decreased UE Strength, Impaired Funct Balance, Impaired I ADL's Discharge Recommendations Plan/Recommendations: Continue POC Therapy Discharge Recommendati: Home & Family (anticipate home pending progress) Treatment Plan/Plan of Care Treatment,Training & Education: Yes Patient would benefit from OT for education, treatment and training to promote independence in ADL's, mobility, safety and/or upper extremity function for ADL's. Plan of Care: ADL Retraining, Functional Mobility, UE Funct Exercise/Act Treatment Duration: Nov 14, 2021 Frequency: 3 times per week (3-5x/week) Estimated Hrs Per Day: .25 hour per day Agreement: Yes Rehab Potential: Fair Time/GCodes Start Time: 11:03 Stop Time: 11:13 Total Time Billed (hr/min): 10 Billed Treatment Time 1 visit Brianda Patricia OT Nov 10, 2021 12:07
[2021-11-10] MEDS: ACETAMINOPHEN 500 MG TAB (TYLENOL) PO PRN (12:09)
[2021-11-10 12:34] VITALS: BP 97/63
--- NOTE | 2021-11-11 10:45 | Physician Query Clarification ---
PQ-Further Specificity Admission/Discharge Admission Date: Nov 09, 2021 at 05:45 Discharge Date: Nov 10, 2021 at 12:34 Dr. Duong, The medical record reflects the following clinical scenario: History/Risk Factors: TIA, pneumonia, COPDAE, chronic resp failure w/hypoxia Clinical Findings: Troponin 0.065 heart cath: CONCLUSION: 1. Mild coronary artery disease nonobstructive disease 2. Normal left ventricular size and systolic function estimate ejection fraction 60% 3. Normal abdominal aorta and bifurcation with runoff down to the trifurcation with slow flow in the SFA bilaterally, probably small vessel disease distally Treatment: IV Solu-medrol, Albuterol, Decadron, baby aspirin, IVDoxycycline, IV Cefepime Question: Can you further specify diagnosis/condition per the clinical indicators above? Please document a response in the Progress Notes or Discharge Summary. 1. NSTEMI type 2 2. elevated troponin only not MA or Type 2 MA 3. Other, with explanation of the clinical findings. 4. Clinically undetermined, no explanation for the clinical findings. PHYSICIAN RESPONSE Can you specify per above: 2 Please remember a lack of response to the above will prompt a phone page by CDI/Coding staff. In responding to this query, please exercise your independent professional judgment. The purpose of this communication is to more accurately reflect the complexity of your patients condition. The fact that a question is asked does not imply that any particular answer is desired or expected. Thank you for your timely response to this clarification. Requestors name: Cornel THIS PHYSICIAN QUERY FORM IS A PERMANENT PART OF THE MEDICAL RECORD CORNEL ALBRECHT Nov 11, 2021 10:45 CLAU DUONG MD Nov 13, 2021 14:28
== END 2021-11-10 12:34 | disposition home health service (06) | DRG 190 ==
LOC: EDUNIT# 00:59 → ER 01:00 → CSD 05:45 → EDLOC 05:45
PROVIDERS: ADMIT Internal Medicine; ATTEND Internal Medicine
PROC: 4A023N7 Measurement of Cardiac Sampling and Pressure, Left Heart, Percutaneous Approach (ICD-10-PCS; principal; 2021-11-09)
PROC: B2111ZZ Fluoroscopy of Multiple Coronary Arteries using Low Osmolar Contrast (ICD-10-PCS; 2021-11-09)
PROC: B2151ZZ Fluoroscopy of Left Heart using Low Osmolar Contrast (ICD-10-PCS; 2021-11-09)
PROC: B41D1ZZ Fluoroscopy of Aorta and Bilateral Lower Extremity Arteries using Low Osmolar Contrast (ICD-10-PCS; 2021-11-09)
PROC: 8E0ZXY6 Isolation (ICD-10-PCS; 2021-11-09)
DX: J44.1 Chronic obstructive pulmonary disease with (acute) exacerbation (principal); J18.9 Pneumonia, unspecified organism; G45.9 Transient cerebral ischemic attack, unspecified; J96.11 Chronic respiratory failure with hypoxia; J44.0 Chronic obstructive pulmonary disease with (acute) lower respiratory infection; I48.0 Paroxysmal atrial fibrillation; I25.10 Atherosclerotic heart disease of native coronary artery without angina pectoris; R91.8 Other nonspecific abnormal finding of lung field; Z20.822 Contact with and (suspected) exposure to COVID-19; I10 Essential (primary) hypertension; G62.9 Polyneuropathy, unspecified; N40.0 Benign prostatic hyperplasia without lower urinary tract symptoms; I73.9 Peripheral vascular disease, unspecified; R77.8 Other specified abnormalities of plasma proteins; H91.92 Unspecified hearing loss, left ear; S06.9X0S Unspecified intracranial injury without loss of consciousness, sequela; Z87.891 Personal history of nicotine dependence; Z91.19 Patient's noncompliance with other medical treatment and regimen; Z86.718 Personal history of other venous thrombosis and embolism; Z89.421 Acquired absence of other right toe(s); Z79.52 Long term (current) use of systemic steroids
CPT/HCPCS: 36415; 51701; 70450; 70496; 70498; 70551; 71045; 80048; 80053; 80061; 80162; 80306; 80320; 80329; 81000; 82150; 82550; 82553; 82805; 83605; 83690; 83735; 83874; 83880; 84145; 84484; 85025; 85379; 85610; 85652; 85730; 86141; 87040; 87088; 87636; 93005; 93041; 93458; 94640; 94760; 96365; 96367; 96375; 99291

== ENCOUNTER 2021-11-16 14:12 | Observation (INO) | payer MEDICARE ==
[~2021-11-16] VITALS: Ht 175 cm; Wt 54.0 kg
[~2021-11-16 14:12] MED LIST changes: +ASPI-999 PO; +ATOR40TA PO
--- NOTE | 2021-11-16 14:26 | ED Chest Pain ---
General Chief Complaint: Cardiac/General Problems Stated Complaint: DIZZY Source: patient Exam Limitations: no limitations History of Present Illness Date Seen by Provider: Nov 16, 2021 Time Seen by Provider: 14:25 Initial Comments Patient is a 61-year-old male who presents to ED with dizziness, chest pain. Patient states he had a cardiac cath 1 week ago when he was admitted to the hospital concerning for stroke. Patient had notable mild to moderate disease w ith no intervention. Has had intermittent dizziness worse with exertion. States he feels like he is on a boat. Similar symptoms in the past. Patient was found to be hypotensive today. Home health called regarding his hypotension. History of hypertension, peripheral artery disease, coronary artery disease, COPD. Was not wearing his oxygen currently on 3 L of oxygen. Was 91% on room air. Patient hypotensive on arrival. Has no current complaints. Reports chronic cough. Denies feeling short of breath at this time, Oscar pain and vomiting, diarrhea, fever. Allergies and Home Medications Allergies Coded Allergies: No Known Drug Allergies (Verified , 07/11/09) Patient Home Medication List Home Medication List Reviewed: Yes Albuterol Sulfate (Ventolin Hfa) 18 Gm Hfa.aer.ad, 2 PUFF INH Q6H PRN for SHORTNESS OF BREATH, (Reported) Entered as Reported by: PRISCILLA DELGADO on 11/04/211556 Alprazolam (Alprazolam) 0.5 Mg Tablet, 1 MG PO DAILY PRN for ANXIETY, (Reported) Entered as Reported by: PRISCILLA DELGADO on 11/04/211556 Aspirin (Aspirin) 81 Mg Tab.chew, 81 MG PO DAILY Prescribed by: CLAU DUONG on 11/10/21 09 Atorvastatin Calcium (Lipitor) 40 Mg Tablet, 40 MG PO HS Prescribed by: CLAU DUONG on 11/10/21 0955 Baclofen (Baclofen) 10 Mg Tablet, 10 MG PO TID PRN for MUSCLE SPASMS, (Reported) Entered as Reported by: PRISCILLA DELGADO on 11/04/211556 Digoxin (Digoxin) 125 Mcg Tablet, 250 MCG PO DAILY, (Reported) Entered as Reported by: PRISCILLA DELGADO on 12/22/20 1254 Duloxetine HCl (Duloxetine HCl) 60 Mg Capsule.dr, 60 MG PO DAILY, (Reported) Entered as Reported by: PRISCILLA DELGADO on 12/22/20 125 Fluticasone/Umeclidin/Vilanter (Trelegy Ellipta 100-62.5-25) 1 Each Blst.w.dev, 1 PUFF INH DAILY, (Reported) Entered as Reported by: PRISCILLA DELGADO on 11/04/211556 Furosemide (Furosemide) 40 Mg Tablet, 40 MG PO DAILY, (Reported) Entered as Reported by: PRISCILLA DELGADO on 11/04/211556 Gabapentin (Gabapentin) 400 Mg Capsule, 400 MG PO TID, (Reported) Entered as Reported by: PRISCILLA DELGADO on 11/04/211556 Levofloxacin (Levofloxacin) 750 Mg Tablet, 750 MG PO DAILY, (Reported) Entered as Reported by: PRISCILLA DELGADO on 11/09/211546 Montelukast Sodium (Montelukast Sodium) 10 Mg Tablet, 10 MG PO HS, (Reported) Entered as Reported by: PRISCILLA DELGADO on 11/04/211556 Multivits,Ca,Min/Iron/FA/Lycop (Centrum Ultra Men's Tablet) 1 Each Tablet, 1 EACH PO DAILY, (Reported) Entered as Reported by: PRISCILLA DELGADO on 11/04/211556 Oxycodone HCl (Oxycodone HCl) 5 Mg Tablet, 5 MG PO Q4H PRN for PAIN-SEVERE (8- 10), (Reported) Entered as Reported by: PRISCILLA DELGADO on 11/04/211556 Potassium Chloride (Potassium Chloride) 20 Meq Tablet.er, 20 MEQ PO DAILY, (Reported) Entered as Reported by: PRISCILLA DELGADO on 11/04/211556 Prednisone (Prednisone) 10 Mg Tab.ds.pk, MG PO DAILY, (Reported) Entered as Reported by: PRISCILLA DELGADO on 11/09/211546 Rivaroxaban (Xarelto) 20 Mg Tablet, 20 MG PO DAILY, (Reported) Entered as Reported by: PRISCILLA DELGADO on 12/22/201253 Tamsulosin HCl (Flomax) 0.4 Mg Cap, 0.4 MG PO 1800, (Reported) Entered as Reported by: PRISCILLA DELGADO on 11/04/211556 Discontinued Medications Levofloxacin (Levofloxacin) 750 Mg Tablet, 750 MG PO DAILY Discontinued Reason: No Longer Taking Prescribed by: CLAU DUONG on 11/06/21 1022 Prednisone (Prednisone) 10 Mg Tab.ds.pk, 10 MG PO DAILY Discontinued Reason: No Longer Taking Prescribed by: CLAU DUONG on 11/06/21 1022 Review of Systems Review of Systems Constitutional: No chills, No diaphoresis, No fever, No malaise, No weakness EENTM: No Blurred Vision, No Double Vision, No Eye Pain Respiratory: Denies Cough, Denies Orthopnea; Shortness of Air; Denies SOA With Exertion, Denies SOA at Rest, Denies Wheezing Cardiovascular: Chest Pain Gastrointestinal: Denies Abdominal Pain, Denies Nausea, Denies Vomiting Genitourinary: Denies Burning, Denies Discharge Musculoskeletal: No back pain, No joint pain Skin: No change in color, No change in hair/nails All Other Systems Reviewed Negative Unless Noted: Yes Past Ocwmymw-Yhvbfs-Buvvux Hx Immunizations Up To Date Tetanus Booster (TDap): Less than 5yrs PED Vaccines UTD: No First/Initial COVID19 Vaccinat: February COVID19 Vaccination Hemanth: March COVID19 Vaccination Date: FEBRUARY Seasonal Allergies Seasonal Allergies: Yes (hayfever) Past Medical History Surgery/Hospitalization HX: AFIB PNEUMONIA Surgeries: Yes (hernia repair, l ankle, l wrist, ) Orthopedic Respiratory: Yes Pneumonia, COPD Currently Using CPAP: No Currently Using BIPAP: No Cardiac: Yes Atrial Fibrillation, Deep Vein Thrombosis, Hypertension Neurological: Yes (neuralgia) Neuropathy Sexually Transmitted Disease: No HIV/AIDS: No Genitourinary: No Renal Failure Gastrointestinal: Yes Abdominal Hernia, Gastrointestinal Bleed Musculoskeletal: No Chronic Back Pain Endocrine: No HEENT: No (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 oz. kg; 17.07 BMI Method: General Appearance: No Apparent Distress, WD/WN HEENT: PERRL/EOMI, TMs Normal, Normal ENT Inspection, Pharynx Normal Neck: Full Range of Motion, Normal Inspection, Non Tender, Supple Respiratory: Chest Non Tender, Lungs Clear, Normal Breath Sounds, No Accessory Muscle Use, No Respiratory Distress Cardiovascular: Regular Rate, Rhythm, No Edema, No Gallop, No JVD, Tachycardia Gastrointestinal: Normal Bowel Sounds, No Organomegaly, No Pulsatile Mass, Non Tender, Soft Rectal: Normal Exam Extremity: Normal Capillary Refill, Normal Inspection Focused Exam Lactate Level 11/16/21 14:58: Lactic Acid Level 1.99 Lactic Acid Level Laboratory Tests Test 11/16/21 14:58 Lactic Acid Level 1.99 MMOL/L (0.50-2.00) Procedures/Interventions Date of ETT Placement: January 17, 2020 Time of ETT Placement: 08 Progress/Results/Core Measures Results/Orders Lab Results Laboratory Tests Test 11/16/21 14:15 11/16/21 14:57 11/16/21 14:58 Range/Units White Blood Count 16.7 H 4.3-11.0 10^3/uL Red Blood Count 3.91 L 4.30-5.52 10^6/uL Hemoglobin 12.1 L 13.3-17.7 g/dL Hematocrit 38 L 40-54 % Mean Corpuscular Volume 97 80-99 fL Mean Corpuscular Hemoglobin 31 25-34 pg Mean Corpuscular Hemoglobin Concent 32 32-36 g/dL Red Cell Distribution Width 15.1 H 10.0-14.5 % Platelet Count 465 H 130-400 10^3/uL Mean Platelet Volume 9.6 9.0-12.2 fL Immature Granulocyte % (Auto) 1 % Neutrophils (%) (Auto) 71 42-75 % Lymphocytes (%) (Auto) 19 12-44 % Monocytes (%) (Auto) 8 0-12 % Eosinophils (%) (Auto) 1 0-10 % Basophils (%) (Auto) 0 0-10 % Neutrophils # (Auto) 11.8 H 1.8-7.8 10^3/uL Lymphocytes # (Auto) 3.2 1.0-4.0 10^3/uL Monocytes # (Auto) 1.3 H 0.0-1.0 10^3/uL Eosinophils # (Auto) 0.2 0.0-0.3 10^3/uL Basophils # (Auto) 0.0 0.0-0.1 10^3/uL Immature Granulocyte # (Auto) 0.2 H 0.0-0.1 10^3/uL Neutrophils % (Manual) 78 % Lymphocytes % (Manual) 12 % Monocytes % (Manual) 8 % Eosinophils % (Manual) 1 % Metamyelocytes % 1 % Blood Morphology Comment NORMAL Prothrombin Time 21.9 H 12.2-14.7 SEC INR Comment 1.9 H 0.8-1.4 Activated Partial Thromboplast Time 40 H 24-35 SEC Sodium Level 138 135-145 MMOL/L Potassium Level 3.9 3.6-5.0 MMOL/L Chloride Level 99 98-107 MMOL/L Carbon Dioxide Level 27 21-32 MMOL/L Anion Gap 12 5-14 MMOL/L Blood Urea Nitrogen 9 7-18 MG/DL Creatinine 0.63 0.60-1.30 MG/DL Estimat Glomerular Filtration Rate 110 BUN/Creatinine Ratio 14 Glucose Level 119 H 70-105 MG/DL Calcium Level 8.5 8.5-10.1 MG/DL Corrected Calcium 9.0 8.5-10.1 MG/DL Magnesium Level 2.2 1.6-2.4 MG/DL Total Bilirubin 0.5 0.1-1.0 MG/DL Aspartate Amino Transf (AST/SGOT) 28 5-34 U/L Alanine Aminotransferase (ALT/SGPT) 44 0-55 U/L Alkaline Phosphatase 71 40-136 U/L Total Creatine Kinase 82 30-200 U/L Myoglobin 75.5 10.0-92.0 NG/ML Troponin I 0.034 H <0.028 NG/ML C-Reactive Protein High Sensitivity 0.36 0.00-0.50 MG/DL Total Protein 6.1 L 6.4-8.2 GM/DL Albumin 3.4 3.2-4.5 GM/DL Lipase 9 8-78 U/L Urine Color YELLOW Urine Clarity CLEAR Urine pH 6.0 5-9 Urine Specific Dudley <=1.005 1.016-1.022 Urine Protein NEGATIVE NEGATIVE Urine Glucose (UA) NEGATIVE NEGATIVE Urine Ketones NEGATIVE NEGATIVE Urine Nitrite NEGATIVE NEGATIVE Urine Bilirubin NEGATIVE NEGATIVE Urine Urobilinogen 0.2 < = 1.0 MG/DL Urine Leukocyte Esterase NEGATIVE NEGATIVE Urine RBC (Auto) NEGATIVE NEGATIVE Urine RBC NONE /HPF Urine WBC NONE /HPF Urine Crystals NONE /LPF Urine Bacteria NEGATIVE /HPF Urine Casts NONE /LPF Urine Mucus NEGATIVE /LPF Urine Culture Indicated NO Lactic Acid Level 1.99 0.50-2.00 MMOL/L My Orders Orders - LIBBYDOREEN A PA Cbc With Automated Diff (11/16/21 14:21) Magnesium (11/16/21 14:21) Chest 1 View, Ap/Pa Only (11/16/21 14:21) Ekg Tracing (11/16/21 14:21) Comprehensive Metabolic Panel (11/16/21 14:21) Myoglobin Serum (11/16/21 14:21) Protime With Inr (11/16/21 14:21) Partial Thromboplastin Time (11/16/21 14:21) O2 (11/16/21 14:21) Monitor-Rhythm Ecg Trace Only (11/16/21 14:21) Ed Iv/Invasive Line Start (11/16/21 14:21) Creatine Kinase (11/16/21 14:21) Lipase (11/16/21 14:21) Troponin I Ambrose (11/16/21 14:21) Aspirin Chewable Tablet (Baby Aspirin Ch (11/16/21 14:30) Ns Iv 500 Ml (Sodium Chloride 0.9%) (11/16/21 14:31) Manual Differential (11/16/21 14:15) Hs C Reactive Protein (11/16/21 14:50) Ua Culture If Indicated (11/16/21 14:51) Blood Culture (11/16/21 14:51) Lactic Acid Analyzer (11/16/21 14:51) Ceftriaxone 1 Gm Pre-Mix (Rocephin 1 Gm (11/16/21 14:51) Blood Culture (11/16/21 15:05) Orthostatic Vital Signs (Adult (11/16/21 16:02) Ns Iv 1000 Ml (Sodium Chloride 0.9%) (11/16/21 16:20) Medications Given in ED Current Medications Medications Dose Ordered Sig/David Route Start Time Stop Time Status Last Admin Dose Admin Aspirin 324 mg ONCE ONCE PO 11/16/21 14:30 11/16/21 14:31 DC 11/16/21 14:30 324 MG Vital Signs/I&O 11/16/21 11/16/21 14:13 16:13 Temp 36.3 Pulse 103 89 98 109 Resp 18 B/P (MAP) 95/68 (77) 92/65 (74) 82/66 (71) 75/53 (60) Pulse Ox 99 O2 Delivery Nasal Cannula O2 Flow Rate 3.00 Departure Communication (Admissions) Time/Spoke to Admitting Phy: 16:24 Patient presents ED with hypotension. Patient is unclear if he is taking Lasix.. States he has been him on Lasix in the past. Recommend stopping all blood pressure medication including Lasix. Hypotensive here with did have some improvement with fluids. Patient became orthostatic hypotensive with dizziness unable to stand. Patient will be admitted for further evaluation. Patient was discussed with Dr. Duong who accepts patient. Patient presents ED with dizziness and hypotension. Patient poor historian. Dizziness has been worse this week. States he has a history of dizziness. Reports feels like room spinning. No visual changes, unilateral muscle weakness or sensory changes. Negative recent stroke work-up. Home health nurse follows up with patient daily. Patient was found to have a systolic blood pressure of 77/55. Patient blood pressure has been running between 90-120 systolic here. Patient was orthostatic hypotensive not able to stand secondary to the dizziness. Patient was given half bolus of fluid. Patient was seen here a week ago concern for stroke, With reassuring imaging and work-up patient work-up was unremarkable. Had cardiac catheterization with mild to moderate disease without any obstruction. Treated conservatively. He is unsure if he has been taken Lasix. Brother at bedside is unsure as well. I do see that he was on Lasix at some point. His ejection fraction was 60% appeared to have normal systolic size. Patient may be dehydrated. Had elevated white blood count so sepsis protocol was initiated as he was slightly tachycardic. Was given Rocephin. Was treated for potential lower respiratory infection with his last visit. He states he finished steroids yesterday which may be associated to the leukocytosis. Unclea if infectious etiology. Urine was negative. Chest ray negative for pneumonia, pneumothorax. Stable troponin today with similiar results from his last visit. Patient was given aspirin. Currently on Xarelto. History of peripheral vascular disease. Patient has not been compliant with follow-up visits with Dr. Bautista. Did consult Dr. Bautista who felt like patient may benefit with observation admission secondary to the hypotension. Discussed patient with hospitalist who agreed to accept patient for observation. Recommend another liter of fluid. Believe patient has been hypotensive during his stay here. However he states normally his blood pressure is somewhat higher 110-1 20 systolic. Due to currently being symptomatic patient will be admitted for further evaluation. EKG very similar to his last one on 228. No ST elevation or significant depression Impression Primary Impression: Hypotension Disposition: ADMITTED INPATIENT Condition: Stable Admissions Decision to Admit Reason: Admit from ER (General) Decision to Admit/Date: Nov 16, 2021 Time/Decision to Admit Time: 16:24 Departure-Patient Inst. Referrals: JAY BAUTISTA MD (PCP/Family) Primary Care Physician DOREEN SOUZA Nov 16, 2021 14:26
[2021-11-16 14:28] LABS: BASOPHILS % (AUTO) 0 % (0-10); EOSINOPHILS # (AUTO) 0.2 10^3/uL (0.0-0.3); EOSINOPHILS % (AUTO) 1 % (0-10); HEMATOCRIT 38 % (40-54); HEMOGLOBIN 12.1 g/dL (13.3-17.7); LYMPHOCYTES # (AUTO) 3.2 10^3/uL (1.0-4.0); LYMPHOCYTES % (AUTO) 19 % (12-44); MEAN CORPUSCULAR HEMOGLOBIN 31 pg (25-34); MEAN CORPUSCULAR HGB CONC 32 g/dL (32-36); MEAN CORPUSCULAR VOLUME 97 fL (80-99); MEAN PLATELET VOLUME 9.6 fL (9.0-12.2); MONOCYTES # (AUTO) 1.3 10^3/uL (0.0-1.0); MONOCYTES % (AUTO) 8 % (0-12); NEUTROPHILS # (AUTO) 11.8 10^3/uL (1.8-7.8); NEUTROPHILS % (AUTO) 71 % (42-75); PLATELET COUNT 465 10^3/uL (130-400); WHITE BLOOD COUNT 16.7 10^3/uL (4.3-11.0)
[2021-11-16] MEDS ORDERED: ASPIRIN 81 MG CHEW (CHILDREN'S ASA) PO ONE (14:30)
[2021-11-16] MEDS ORDERED: NS IV 500 ML 500 ML IV STA (14:31)
[2021-11-16 14:47] LABS: ALBUMIN 3.4 GM/DL (3.2-4.5); POTASSIUM 3.9 MMOL/L (3.6-5.0)
--- NOTE | 2021-11-16 14:47 | Diagnostic Imaging Report ---
INDICATION: Hypotension and dizziness. TIME OF EXAM: 02:30 p.m. COMPARISON: Correlation is made with prior chest from 11/09/2021. FINDINGS: Heart size is stable. Chronic parenchymal changes and COPD are again noted. No infiltrate is detected. There is no effusion. There is no pneumothorax. IMPRESSION: Stable chronic changes since exam from 11/09/2021. No new abnormality is detected. Dictated by: Dictated on workstation # [id number]
[2021-11-16 14:48] LABS: CALCIUM 8.5 MG/DL (8.5-10.1)
[2021-11-16 14:49] LABS: TOTAL PROTEIN 6.1 GM/DL (6.4-8.2)
[2021-11-16 14:51] LABS: BILIRUBIN,TOTAL 0.5 MG/DL (0.1-1.0); INR 1.9 (0.8-1.4); PROTHROMBIN TIME PATIENT 21.9 SEC (12.2-14.7)
[2021-11-16] MEDS ORDERED: cefTRIAXone 1 GM PRE-MIX 50 ML IV STA (14:51)
[2021-11-16 14:53] LABS: CREATININE SERUM 0.63 MG/DL (0.60-1.30)
[2021-11-16 14:55] LABS: MAGNESIUM 2.2 MG/DL (1.6-2.4)
[2021-11-16 15:07] LABS: EOSINOPHILS % (MANUAL) 1 %; LYMPHOCYTES % (MANUAL) 12 %; METAMYELOCYTES % 1 %; MONOCYTES % (MANUAL) 8 %; NEUTROPHILS % (MANUAL) 78 %; RBC MORPH NORMAL
[2021-11-16 15:10] LABS: BILIRUBIN,URINE NEGATIVE (NEGATIVE); CLARITY,URINE CLEAR; COLOR,URINE YELLOW; GLUCOSE, URINE (UA) NEGATIVE (NEGATIVE); KETONES,URINE NEGATIVE (NEGATIVE); LEUKOCYTE ESTERASE ,URINE NEGATIVE (NEGATIVE); NITRITE,URINE NEGATIVE (NEGATIVE); PROTEIN,URINE NEGATIVE (NEGATIVE)
[2021-11-16 15:30] LABS: BACTERIA,URINE NEGATIVE /HPF
[2021-11-16 16:13] VITALS: BP_SYST 75; BP_SYST 82; BP_SYST 92; BP_DIAS 53; BP_DIAS 65; BP_DIAS 66
[2021-11-16] MEDS ORDERED: NS IV 1000 ML 1,000 ML IV STA (16:20)
[2021-11-16 17:26] VITALS: BP 100/67
[2021-11-16] MEDS ORDERED: CATHETER FLUSH 10 ML SYR IVP PRN (17:30)
[2021-11-16] MEDS ORDERED: ONDANSETRON 4 MG/2 ML (SDV) Z0FRAN IV PRN (18:30)
[2021-11-16] MEDS ORDERED: ANTACID SUSP 30 ML UDC (MYLANTA) PO PRN (18:30)
[2021-11-16] MEDS ORDERED: BACLOFEN 10 MG (LIORESAL) TAB PO PRN (18:30)
[2021-11-16] MEDS ORDERED: ACETAMINOPHEN 325 MG TABLET PO PRN (18:30)
[2021-11-16] MEDS ORDERED: diphenhydrAMINE 25 MG TAB (BENADRYL) PO PRN (18:30)
[2021-11-16] MEDS ORDERED: ALPRAZolam 0.5 MG (XANAX) TAB PO PRN (18:30)
[2021-11-16] MEDS ORDERED: ONDANSETRON 4 MG (ZOFRAN) ORAL DISSOLVE TAB PO PRN (18:30)
[2021-11-16] MEDS ORDERED: MELATONIN 3 MG TABLET PO PRN (18:30)
[2021-11-16] MEDS ORDERED: polyethylene glycoL POWDER 17 GM (MIRALAX) PACK PO PRN (18:30)
[2021-11-16] MEDS: NS IV 1000 ML 1,000 ML IV SCH (18:41)
[2021-11-16] MEDS: CATHETER FLUSH 10 ML SYR IVP SCH (19:14)
[2021-11-16 19:49] VITALS: BP 96/60
[2021-11-16] MEDS: DOCUSATE SODIUM 100 MG (COLACE) CAP PO SCH (20:02)
[2021-11-16] MEDS: SENNOSIDES 8.6 MG (SENOKOT) TAB PO SCH (20:02)
[2021-11-16] MEDS: GABAPENTIN 400 MG (NEURONTIN) CAP PO SCH (20:03)
[2021-11-16] MEDS ORDERED: MONTELUKAST 10 MG (SINGULAIR) TAB PO SCH (21:00)
--- NOTE | 2021-11-16 22:08 | History & Physical-Hospitalist ---
History of Present Illness HPI/Chief Complaint Moshe Soto is a 61 year old male with PMH HTN ,AFib, CAD, PVD, tobacco abuse, COPD, who presented with hypotension. His home health worker found him to have low blood pressure and directed him to the ER. He reports feeling lightheaded and dizzy. He has not had any fevers or chills. He denies shortness of breath and cough. He denies chest pain. He denies abdominal pain. He has no other complaints or concerns. Source: patient Exam Limitations: no limitations Date Seen 11/16/21 Time Seen by a Provider: 18:20 Attending Physician Clau Duong MD PCP Callum Davenport MD Referring Physician Date of Admission Nov 16, 2021 at 16:21 Home Medications & Allergies Home Medications Reviewed patient Home Medication Reconciliation performed by pharmacy medication reconciliations pipe organ technician and/or nursing. Patients Allergies have been reviewed. Allergies Allergies Coded Allergies No Known Drug Allergies (Ztcybcyf32/25/09) Past Twbdedf-Ytphgk-Wuymxo Hx Patient Social History Tobacco Use?: No Smoking Status: Former Smoker Use of E-Cig and/or Vaping dev: No Substance use?: Yes Additional substance use comme: hx of use in the past Alcohol Use?: No Additional alcohol type: past history Pt feels they are or have been: No Immunizations Up To Date Date of Influenza Vaccine: Jun 17, 2022 First/Initial COVID19 Vaccinat: BYRON Second COVID19 Vaccination Hemanth: MARCH Tetanus Booster (TDap): Unknown Hepatitis A: No Hepatitis B: No PED Vaccines UTD: No Seasonal Allergies Seasonal Allergies: Yes (hayfever) Current Status Advance Directives: No Communicates: Verbally Primary Language: Micronesian Preferred Spoken Language: Micronesian Is interpretation needed?: No Sensory deficits: Hearing impairment Implanted or Applied Medical D: Stents Past Medical History Surgeries: Orthopedic Pneumonia, COPD Currently Using CPAP: No Currently Using BIPAP: No Atrial Fibrillation, Deep Vein Thrombosis, Hypertension Neuropathy Sexually Transmitted Disease: No HIV/AIDS: No Renal Failure Abdominal Hernia, Gastrointestinal Bleed Chronic Back Pain Tinnitis Loss of Vision: Denies Hearing Impairment: Deaf Recent Skin Changes Blood Disorders: No Adverse Reaction/Blood Tranf: No Family Medical History Alcoholism 19 FATHER 19 MOTHER Arthritis 19 FATHER 19 MOTHER No Pertinent Family Hx, Other Conditions/Hx Review of Systems Constitutional: dizziness EENTM: no symptoms reported Respiratory: no symptoms reported Cardiovascular: no symptoms reported Gastrointestinal: no symptoms reported Genitourinary: no symptoms reported Musculoskeletal: no symptoms reported Skin: no symptoms reported Psychiatric/Neurological: No Symptoms Reported Physical Exam Physical Exam Vital Signs Vital Signs - First Documented 11/16/21 14:13 Temp 36.3 Pulse 103 Resp 18 B/P (MAP) 95/68 (77) Pulse Ox 99 O2 Delivery Nasal Cannula O2 Flow Rate 3.00 Capillary Refill : Less Than 3 Seconds Height, Weight, BMI Height: '" Weight: lbs. oz. kg; 18.28 BMI Method: General Appearance: No Apparent Distress, Chronically ill HEENT: PERRL/EOMI, Pharynx Normal Respiratory: Lungs Clear, No Respiratory Distress Cardiovascular: Regular Rate, Rhythm, No Murmur Gastrointestinal: Normal Bowel Sounds, Soft Extremity: Normal Inspection, No Pedal Edema Neurologic/Psychiatric: Alert, Oriented x3, Normal Mood/Affect Skin: Normal Color, Warm/Dry Results Results/Procedures Labs Laboratory Tests 11/16/21 14:15 Patient resulted labs reviewed. Imaging: Reviewed Imaging Report Assessment/Plan Admission Diagnosis Orthostatic hypotension Admission Status: Observation Assessment and Plan Orthostatic hypotension IV fluids Hold Lasix HTN AFib BPH PVD CAD COPD Continue home meds Hold Lasix Diagnosis/Problems Diagnosis/Problems (1) Orthostatic hypotension Status: Acute Clinical Quality Measures AMI/AHF: ASA po Prior to arrival: Yes (81) CLAU DUONG MD Nov 16, 2021 22:08
[2021-11-17 00:10] VITALS: BP 91/56
[2021-11-17 03:15] VITALS: BP 92/51
[2021-11-17] MEDS: NS IV 1000 ML 1,000 ML IV SCH (04:20)
[2021-11-17] MEDS: CATHETER FLUSH 10 ML SYR IVP SCH (04:44)
[2021-11-17 05:22] LABS: BASOPHILS % (AUTO) 0 % (0-10); EOSINOPHILS # (AUTO) 0.3 10^3/uL (0.0-0.3); EOSINOPHILS % (AUTO) 2 % (0-10); HEMATOCRIT 34 % (40-54); HEMOGLOBIN 10.9 g/dL (13.3-17.7); LYMPHOCYTES # (AUTO) 2.6 10^3/uL (1.0-4.0); LYMPHOCYTES % (AUTO) 16 % (12-44); MEAN CORPUSCULAR HEMOGLOBIN 31 pg (25-34); MEAN CORPUSCULAR HGB CONC 32 g/dL (32-36); MEAN CORPUSCULAR VOLUME 97 fL (80-99); MEAN PLATELET VOLUME 9.5 fL (9.0-12.2); MONOCYTES # (AUTO) 1.4 10^3/uL (0.0-1.0); MONOCYTES % (AUTO) 9 % (0-12); NEUTROPHILS # (AUTO) 11.7 10^3/uL (1.8-7.8); NEUTROPHILS % (AUTO) 73 % (42-75); PLATELET COUNT 390 10^3/uL (130-400); WHITE BLOOD COUNT 16.1 10^3/uL (4.3-11.0)
[2021-11-17 05:33] LABS: POTASSIUM 4.3 MMOL/L (3.6-5.0)
[2021-11-17 05:34] LABS: CALCIUM 8.1 MG/DL (8.5-10.1)
[2021-11-17 05:38] LABS: CREATININE SERUM 0.52 MG/DL (0.60-1.30)
[2021-11-17 07:35] VITALS: BP 95/63
[2021-11-17] MEDS ORDERED: FLUTICASONE/VILANTEROL 100 MCG 14'S (BREO) IH SCH (08:00)
[2021-11-17] MEDS ORDERED: RT--FLUTICASONE/SALMETEROL 113-14 (AIRDUO RespiCLICK) IH SCH (08:00)
[2021-11-17] MEDS ORDERED: UMECLIDINIUM BROMIDE (INCRUSE ELLIPTA) 7'S IH SCH (08:00)
[2021-11-17 08:20] VITALS: BP_SYST 80; BP_SYST 88; BP_SYST 90; BP_DIAS 51; BP_DIAS 52; BP_DIAS 54
[2021-11-17] MEDS: GABAPENTIN 400 MG (NEURONTIN) CAP PO SCH (08:36)
[2021-11-17] MEDS: SENNOSIDES 8.6 MG (SENOKOT) TAB PO SCH (08:38)
[2021-11-17] MEDS: DOCUSATE SODIUM 100 MG (COLACE) CAP PO SCH (08:38)
[2021-11-17] MEDS ORDERED: ASPIRIN 81 MG CHEW (CHILDREN'S ASA) PO SCH (09:00)
[2021-11-17] MEDS ORDERED: DULoxetine 30 MG (CYMBALTA) CAP PO SCH (09:00)
[2021-11-17] MEDS ORDERED: DIGOXIN 0.25 MG (LANOXIN) TAB PO SCH (09:00)
--- NOTE | 2021-11-17 10:38 | Physical Therapy Evaluation ---
PT Evaluation-General Medical Diagnosis Admission Date Nov 16, 2021 at 16:21 Medical Diagnosis: Hypotension Onset Date: Nov 16, 2021 Therapy Diagnosis Therapy Diagnosis: weakness, debility Precautions Precautions/Isolations: Fall Prevention, Standard Precautions Referral Physician: Roxanne Reason for Referral: Evaluation/Treatment Medical History Pertinent Medical History: Atrial Fib, Alcoholism, COPD, HTN, Renal Insufficiency, Smoking, TBI Current History Patient presented to ED via private vehicle after HH nurse determined patient was hypotensive. Reviewed History: Yes Social History Home: Single Level Current Living Status: Alone Entry Into Home: Stairs With Railing PT Steps Into Home: 3 Prior Prior Level of Function SCALE: Activities may be completed with or without assistive devices. 6-Keeqyulakx-kvenssr completes the activity by him/herself with no assistance from a helper. 5-Set-up or Clean-up Assistance-helper sets up or cleans up; patient completes activity. Summit assists only prior to or following the activity. 4-Supervision or Touching Assistance-helper provides verbal cues and/or touching/steadying and/or contact guard assistance as patient completes activity. Assistance may be provided throughout the activity or intermittently. 3-Partial/Moderate Assistance-helper does LESS THAN HALF the effort. Summit lifts, holds or supports trunk or limbs, but provides less than half the effort. 2-Substantial/Maximal Assistance-helper does MORE THAN HALF the effort. Summit lifts or holds trunk or limbs and provides more than half the effort. 9-Nijaamddy-taqymh does ALL the effort. Patient does none of the effort to complete the activity. Or, the assistance of 2 or more helpers is required for the patient to complete the activity. If activity was not attempted, code reason: 7-Patient Refused. 9-Not Applicable-not attempted and the patient did not perform the activity before the current illness, exacerbation or injury. 10-Not Attempted due to Environmental Limitations-(lack of equipment, weather restraints, etc.). 88-Not Attempted due to Medical Conditions or Safety Concerns. Bed Mobility: 6 Transfers (B,C,W/C): 6 Gait: 6 Stairs: 6 Indoor Mobility (Ambulation): Independent Stairs: Independent Prior Device Use: Cane PT Evaluation-Current Subjective Patient presented laying in bed and agreed to ambulate with physical therapy. Objective Patient Orientation: Person, Place, Time, Situation Attachments: Oxygen (3L NC), IV ROM/Strength ROM Lower Extremities WFL Strength Lower Extremities 4/5 strength bilaterally grossly Sensory Vision: Functional Hearing: Functional Transfers Sit to Lying (QC): 6 Lying to Sitting/Side of Bed(Q: 6 Sit to Stand (QC): 6 Gait Does the Patient Walk?: Yes Mode of Locomotion: Walk Anticipated Mode of Locomotion: Walk Walk 10 feet (QC): 6 Walk 50 ft with 2 Turns(QC): 6 Walk 150 ft (QC): 6 Distance: 200' Gait Assistive Device: FWW Balance Sitting Static: Normal Sitting Dynamic: Normal Standing Static: Normal Standing Dynamic: Normal Assessment/Needs Patient performed bed mobility and ambulation with physical therapy. Nursing reports BP is still low but patient is not symptomatic and agrees to ambulate. Patient is independent for ambulation and transfers and is being d/c from physical therapy due to independence. Rehab Potential: Good PT Plan Treatment/Plan Treatment Plan: Discontinue PT, goals met Treatment Duration: Nov 17, 2021 Frequency: 1 time per week Estimated Hrs Per Day: .25 hour per day Patient and/or Family Agrees t: Yes Time/GCodes Time In: 1004 Time Out: 1015 Total Billed Treatment Time: 11 Total Billed Treatment 1 Visit EVLow 11 min IDRIS ONEIL PT Nov 17, 2021 10:38
--- NOTE | 2021-11-17 11:12 | Discharge Summary ---
Discharge Summary Hospital Course Problems/Dx: (1) Orthostatic hypotension Status: Acute Hospital Course Date of Admission: Nov 16, 2021 at 16:21 Admission Diagnosis : Orthostatic hypotension Family Physician/Provider: Jay Bautista MD Date of Discharge: 11/17/21 Discharge Diagnosis: Orthostatic hypotension Hospital Course: Moshe Soto is a 61 year old male with multiple medical comorbidities who presented with hypotension and was admitted with orthostatic hypotension. His orthostatic vital signs were positive in the emergency room. He was given IV fluids and his symptoms and orthostasis improved. His Lasix was discontinued. He should follow up with his PCP, Dr. Bautista, as scheduled on Sunday. He was discharged home in stable condition. He should resume home health care. Labs and Pending Lab Test: Laboratory Tests 11/16/21 14:15: White Blood Count 16.7H, Red Blood Count 3.91L, Hemoglobin 12.1L, Hematocrit 38L , Mean Corpuscular Volume 97, Mean Corpuscular Hemoglobin 31, Mean Corpuscular Hemoglobin Concent 32, Red Cell Distribution Width 15.1H, Platelet Count 465H, Mean Platelet Volume 9.6, Immature Granulocyte % (Auto) 1, Neutrophils (%) (Auto) 71, Lymphocytes (%) (Auto) 19, Monocytes (%) (Auto) 8, Eosinophils (%) (Auto) 1, Basophils (%) (Auto) 0, Neutrophils # (Auto) 11.8H, Lymphocytes # (Auto) 3.2, Monocytes # (Auto) 1.3H, Eosinophils # (Auto) 0.2, Basophils # (Auto) 0.0, Immature Granulocyte # (Auto) 0.2H, Neutrophils % (Manual) 78, Lymphocytes % (Manual) 12, Monocytes % (Manual) 8, Eosinophils % (Manual) 1, Metamyelocytes % 1, Blood Morphology Comment NORMAL, Prothrombin Time 21.9H, INR Comment 1.9H, Activated Partial Thromboplast Time 40H, Sodium Level 138, Potassium Level 3.9, Chloride Level 99, Carbon Dioxide Level 27, Anion Gap 12, Blood Urea Nitrogen 9, Creatinine 0.63, Estimat Glomerular Filtration Rate 110, BUN/Creatinine Ratio 14, Glucose Level 119H, Calcium Level 8.5, Corrected Calcium 9.0, Magnesium Level 2.2, Total Bilirubin 0.5, Aspartate Amino Transf (AST/SGOT) 28, Alanine Aminotransferase (ALT/SGPT) 44, Alkaline Phosphatase 71, Total Creatine Kinase 82, Myoglobin 75.5, Troponin I 0.034H, C-Reactive Protein High Sensitivity 0.36, Total Protein 6.1L, Albumin 3.4, Lipase 9 11/16/21 14:57: Urine Color YELLOW, Urine Clarity CLEAR, Urine pH 6.0, Urine Specific [place] <=1.005, Urine Protein NEGATIVE, Urine Glucose (UA) NEGATIVE, Urine Ketones NEGATIVE, Urine Nitrite NEGATIVE, Urine Bilirubin NEGATIVE, Urine Urobilinogen 0.2, Urine Leukocyte Esterase NEGATIVE, Urine RBC (Auto) NEGATIVE, Urine RBC NONE, Urine WBC NONE, Urine Crystals NONE, Urine Bacteria NEGATIVE, Urine Casts NONE, Urine Mucus NEGATIVE, Urine Culture Indicated NO 11/16/21 14:58: Lactic Acid Level 1.99 11/17/21 05:07: White Blood Count 16.1H, Red Blood Count 3.49L, Hemoglobin 10.9L, Hematocrit 34L , Mean Corpuscular Volume 97, Mean Corpuscular Hemoglobin 31, Mean Corpuscular Hemoglobin Concent 32, Red Cell Distribution Width 15.2H, Platelet Count 390, Mean Platelet Volume 9.5, Immature Granulocyte % (Auto) 1, Neutrophils (%) (Auto) 73, Lymphocytes (%) (Auto) 16, Monocytes (%) (Auto) 9, Eosinophils (%) (Auto) 2, Basophils (%) (Auto) 0, Neutrophils # (Auto) 11.7H, Lymphocytes # (Auto) 2.6, Monocytes # (Auto) 1.4H, Eosinophils # (Auto) 0.3, Basophils # (Auto ) 0.0, Immature Granulocyte # (Auto) 0.1, Sodium Level 137, Potassium Level 4.3, Chloride Level 103, Carbon Dioxide Level 25, Anion Gap 9, Blood Urea Nitrogen 12, Creatinine 0.52L, Estimat Glomerular Filtration Rate 116, BUN/Creatinine Ratio 23, Glucose Level 94, Calcium Level 8.1L Home Meds Active Lipitor (Atorvastatin Calcium) 40 Mg Tablet 40 Mg PO HS 30 Days Aspirin 81 Mg Tab.chew 81 Mg PO DAILY 30 Days Reported Levofloxacin 750 Mg Tablet 750 Mg PO DAILY FILLED 11-07-2021 #5/5 DAY SUPPLY Prednisone 10 Mg Tab.ds.pk Mg PO DAILY FILLED 11-07-2021 #21/6 DAY SUPPLY Take 6 tabs(60mg)daily,decrease by 1 tab(10MG)daily. Oxycodone HCl 5 Mg Tablet 5 Mg PO Q4H PRN Centrum Ultra Men's Tablet (Multivits,Ca,Min/Iron/FA/Lycop) 1 Each Tablet 1 Each PO DAILY Furosemide 40 Mg Tablet 40 Mg PO DAILY Montelukast Sodium 10 Mg Tablet 10 Mg PO HS Ventolin Hfa (Albuterol Sulfate) 18 Gm Hfa.aer.ad 2 Puff INH Q6H PRN Alprazolam 0.5 Mg Tablet 1 Mg PO DAILY PRN TAKES 2 (0.5MG) TABS Trelegy Ellipta 100-62.5-25 (Fluticasone/Umeclidin/Vilanter) 1 Each Blst.w.dev 1 Puff INH DAILY Flomax (Tamsulosin HCl) 0.4 Mg Cap 0.4 Mg PO 1800 Gabapentin 400 Mg Capsule 400 Mg PO TID Baclofen 10 Mg Tablet 10 Mg PO TID PRN Potassium Chloride 20 Meq Tablet.er 20 Meq PO DAILY Digoxin 125 Mcg Tablet 250 Mcg PO DAILY TAKES 2 (125MCG) TABS DAILY HOLD IF PULSE IS LESS THEN 60 Duloxetine HCl 60 Mg Capsule.dr 60 Mg PO DAILY Xarelto (Rivaroxaban) 20 Mg Tablet 20 Mg PO DAILY Assessment/Pt Instructions See instructions. Resume home health care. Discharge Planning: <30 minutes discharge planning Discharge Instructions Discharge Diet: Low Sodium Diet Activity as Tolerated: Yes Discharge Physical Examination Vital Signs Vital Signs Date Time Temp Pulse Resp B/P (MAP) Pulse Ox O2 Delivery O2 Flow Rate FiO2 11/17/21 08:20 84 90/54 (66) 93 88/52 (64) 101 80/51 (61) 11/17/21 08:00 Nasal Cannula 3.00 11/17/21 07:37 98 11/17/21 07:35 37.0 20 General Appearance: No Apparent Distress, Chronically ill, Thin Respiratory: Lungs Clear, No Respiratory Distress Cardiovascular: Regular Rate, Rhythm, No Murmur Gastrointestinal: Normal Bowel Sounds, Soft Extremity: Normal Inspection, No Pedal Edema Skin: Normal Color, Warm/Dry Neurologic/Psychiatric: Alert, No Motor/Sensory Deficits, Normal Mood/Affect Allergies: Coded Allergies: No Known Drug Allergies (Verified , 07/11/09) Copy Copies To 1: JAY BAUTISTA MD Discharge Summary Date of Admission Nov 16, 2021 at 16:21 Date of Discharge Discharge Date: Nov 17, 2021 Discharge Time: 11:09 Admission Diagnosis Orthostatic hypotension Discharge Diagnosis Orthostatic hypotension (1) Orthostatic hypotension Status: Acute Clinical Quality Measures AMI/AHF: ASA po Prior to arrival: Yes (81) CLAU DUONG MD Nov 17, 2021 11:12
[2021-11-17 11:40] VITALS: BP 80/51
[2021-11-17] MEDS ORDERED: RIVAROXABAN 20 MG TABLET (XARELTO) PO SCH (17:00)
[2021-11-17] MEDS ORDERED: TAMSULOSIN 0.4 MG (FLOMAX) CAP PO SCH (18:00)
== END 2021-11-17 11:40 | disposition home or self-care (01) ==
LOC: EDUNIT# 14:12 → ER 14:13 → 4TH 16:21
PROVIDERS: ADMIT Internal Medicine; ATTEND Internal Medicine
DX: I95.1 Orthostatic hypotension (principal); I10 Essential (primary) hypertension; I48.91 Unspecified atrial fibrillation; I73.9 Peripheral vascular disease, unspecified; I25.10 Atherosclerotic heart disease of native coronary artery without angina pectoris; J44.9 Chronic obstructive pulmonary disease, unspecified; N40.0 Benign prostatic hyperplasia without lower urinary tract symptoms; Z91.19 Patient's noncompliance with other medical treatment and regimen; Z79.899 Other long term (current) drug therapy; Z87.891 Personal history of nicotine dependence
CPT/HCPCS: 71045; 80048; 80053; 81000; 82550; 83605; 83690; 83735; 83874; 84484; 85007; 85025; 85027; 85610; 85730; 86141; 87040; 93005; 93041; 94640; 94760; 97161; 99284; G0378; 36415

== ENCOUNTER 2022-03-04 13:48 | Inpatient (IN) | payer MEDICARE ==
[~2022-03-04] VITALS: Ht 175 cm; Wt 53.3 kg
--- NOTE | 2022-03-04 14:10 | ED Respiratory ---
General Chief Complaint: Respiratory Problems Stated Complaint: SOB Source: patient Exam Limitations: no limitations History of Present Illness Date Seen by Provider: Mar 04, 2022 Time Seen by Provider: 13:55 Initial Comments Patient is a 61-year-old male, cachectic in appearance who comes in by ambulance today chief complaint of shortness of breath and chest pain with cough. He states he lives at home with his brother. Long-term smoker. Profoundly weak, has difficulty answering questions due to weakness. Heart rate 110, blood pressure in the upper 90s over 60s. Per review of the medical record chronically on oxygen at 3 L. EMS reported that he was 80% on room air when they got there. Patient states that he had just taken his oxygen off prior to EMS arrival. He continues to smoke. States he has not eaten in a day and a half. He does not really have a reason as to why. Cough is productive with green-yellow sputum. No reported fever. States that he needs to take his Xanax in order to urinate. Review of systems limited secondary to clinical condition. Timing/Duration: getting worse, other (2-3 days) Severity: severe Modifying Factors: Worse With Coughing Associated Symptoms: cough, shortness of breath, wheezing Allergies and Home Medications Allergies Coded Allergies: No Known Drug Allergies (Verified , 07/11/09) Patient Home Medication List Home Medication List Reviewed: Yes Albuterol Sulfate (Ventolin Hfa) 18 Gm Hfa.aer.ad, 2 PUFF INH Q6H PRN for SHORTNESS OF BREATH, (Reported) Entered as Reported by: PRISCILLA DELGADO on 11/04/211556 Alprazolam (Alprazolam) 0.5 Mg Tablet, 1 MG PO DAILY PRN for ANXIETY, (Reported) Entered as Reported by: PRISCILLA DELGADO on 11/04/211556 Aspirin (Aspirin) 81 Mg Tab.chew, 81 MG PO DAILY Prescribed by: CLAU DUONG on 11/10/21954 Atorvastatin Calcium (Lipitor) 40 Mg Tablet, 40 MG PO HS Prescribed by: CLAU DUONG on 11/10/21954 Baclofen (Baclofen) 10 Mg Tablet, 10 MG PO TID PRN for MUSCLE SPASMS, (Reported) Entered as Reported by: PRISCILLA DELGADO on 11/04/211556 Digoxin (Digoxin) 125 Mcg Tablet, 250 MCG PO DAILY, (Reported) Entered as Reported by: PRISCILLA DELGADO on 12/22/20 125 Duloxetine HCl (Duloxetine HCl) 60 Mg Capsule.dr, 60 MG PO DAILY, (Reported) Entered as Reported by: PRISCILLA DELGADO on 12/22/20 125 Fluticasone/Umeclidin/Vilanter (Trelegy Ellipta 100-62.5-25) 1 Each Blst.w.dev, 1 PUFF INH DAILY, (Reported) Entered as Reported by: PRISCILLA DELGADO on 11/04/211556 Gabapentin (Gabapentin) 400 Mg Capsule, 400 MG PO TID, (Reported) Entered as Reported by: PRISCILLA DELGADO on 11/04/211556 Montelukast Sodium (Montelukast Sodium) 10 Mg Tablet, 10 MG PO HS, (Reported) Entered as Reported by: PRISCILLA DELGADO on 11/04/211556 Multivits,Ca,Min/Iron/FA/Lycop (Centrum Ultra Men's Tablet) 1 Each Tablet, 1 EACH PO DAILY, (Reported) Entered as Reported by: PRISCILLA DELGADO on 11/04/211556 Oxycodone HCl (Oxycodone HCl) 5 Mg Tablet, 5 MG PO Q4H PRN for PAIN-SEVERE (8- 10), (Reported) Entered as Reported by: PRISCILLA DELGADO on 11/04/211556 Rivaroxaban (Xarelto) 20 Mg Tablet, 20 MG PO DAILY, (Reported) Entered as Reported by: PRISCILLA DELGADO on 12/22/201253 Tamsulosin HCl (Flomax) 0.4 Mg Cap, 0.4 MG PO 1800, (Reported) Entered as Reported by: PRISCILLA DELGADO on 11/04/211556 Review of Systems Review of Systems Constitutional: see HPI Past Gyxgrud-Heacnn-Eupkvo Hx Patient Social History Tobacco Use?: Yes Tobacco type used: Cigarettes Smoking Status: Current Everyday Smoker Substance use?: No Alcohol Use?: Yes Alcohol type: Beer Pt feels they are or have been: No Immunizations Up To Date Tetanus Booster (TDap): Less than 5yrs PED Vaccines UTD: No First/Initial COVID19 Vaccinat: February COVID19 Vaccination Hemanth: March COVID19 Vaccination Date: FEBRUARY Seasonal Allergies Seasonal Allergies: Yes (hayfever) Past Medical History Surgery/Hospitalization HX: AFIB, HTN, COPD, ANEMIA, CAD, CHRONIC RESPIRATORY FAILLURE WITH HYPPOXIA PNEUMONIA ortho heart cath stents, LUNG MASS, Surgeries: Yes (hernia repair, l ankle, l wrist, ) Orthopedic Respiratory: Yes Pneumonia, COPD Currently Using CPAP: No Currently Using BIPAP: No Cardiac: Yes Atrial Fibrillation, Deep Vein Thrombosis, Hypertension Neurological: Yes (neuralgia) Neuropathy Sexually Transmitted Disease: No HIV/AIDS: No Genitourinary: No Renal Failure Gastrointestinal: Yes Abdominal Hernia, Gastrointestinal Bleed Musculoskeletal: No Chronic Back Pain Endocrine: No HEENT: No (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 oz. kg; 18.28 BMI Method: General Appearance: cachetic, thin Eyes: Bilateral Eye Normal Inspection, Bilateral Eye PERRL, Bilateral Eye EOMI HEENT: PERRL/EOMI, other (dry oral mucosa) Focused Exam Lactate Level 03/04/22 14:07: Lactic Acid Level 0.81 Lactic Acid Level Laboratory Tests Test 03/04/22 14:07 Lactic Acid Level 0.81 MMOL/L (0.50-2.00) Procedures/Interventions Date of ETT Placement: January 17, 2020 Time of ETT Placement: 0806 Progress/Results/Core Measures Suspected Sepsis SIRS Temperature: Pulse: Respiratory Rate: Laboratory Tests 03/04/22 14:07: White Blood Count 18.6H Blood Pressure / Mean: 03/04/22 14:07: Lactic Acid Level 0.81 Laboratory Tests 03/04/22 14:07: Creatinine 0.57L, Platelet Count 325, Total Bilirubin 0.9 03/04/22 14:38: INR Comment 1.2 Results/Orders Lab Results Laboratory Tests Test 03/04/22 14:07 03/04/22 14:38 Range/Units White Blood Count 18.6 H 4.3-11.0 10^3/uL Red Blood Count 3.70 L 4.30-5.52 10^6/uL Hemoglobin 11.2 L 13.3-17.7 g/dL Hematocrit 33 L 40-54 % Mean Corpuscular Volume 90 80-99 fL Mean Corpuscular Hemoglobin 30 25-34 pg Mean Corpuscular Hemoglobin Concent 34 32-36 g/dL Red Cell Distribution Width 14.7 H 10.0-14.5 % Platelet Count 325 130-400 10^3/uL Mean Platelet Volume 9.7 9.0-12.2 fL Immature Granulocyte % (Auto) 1 % Neutrophils (%) (Auto) 88 H 42-75 % Lymphocytes (%) (Auto) 5 L 12-44 % Monocytes (%) (Auto) 7 0-12 % Eosinophils (%) (Auto) 0 0-10 % Basophils (%) (Auto) 0 0-10 % Neutrophils # (Auto) 16.3 H 1.8-7.8 10^3/uL Lymphocytes # (Auto) 0.9 L 1.0-4.0 10^3/uL Monocytes # (Auto) 1.2 H 0.0-1.0 10^3/uL Eosinophils # (Auto) 0.0 0.0-0.3 10^3/uL Basophils # (Auto) 0.0 0.0-0.1 10^3/uL Immature Granulocyte # (Auto) 0.1 0.0-0.1 10^3/uL Neutrophils % (Manual) 88 % Lymphocytes % (Manual) 8 % Monocytes % (Manual) 4 % Blood Morphology Comment NORMAL Sodium Level 130 L 135-145 MMOL/L Potassium Level 3.6 3.6-5.0 MMOL/L Chloride Level 90 L 98-107 MMOL/L Carbon Dioxide Level 28 21-32 MMOL/L Anion Gap 12 5-14 MMOL/L Blood Urea Nitrogen 10 7-18 MG/DL Creatinine 0.57 L 0.60-1.30 MG/DL Estimat Glomerular Filtration Rate 113 BUN/Creatinine Ratio 18 Glucose Level 81 70-105 MG/DL Lactic Acid Level 0.81 0.50-2.00 MMOL/L Calcium Level 8.3 L 8.5-10.1 MG/DL Corrected Calcium 9.1 8.5-10.1 MG/DL Total Bilirubin 0.9 0.1-1.0 MG/DL Aspartate Amino Transf (AST/SGOT) 30 5-34 U/L Alanine Aminotransferase (ALT/SGPT) 15 0-55 U/L Alkaline Phosphatase 103 40-136 U/L Total Creatine Kinase 452 H 30-200 U/L Troponin I < 0.028 <0.028 NG/ML C-Reactive Protein High Sensitivity 32.48 H 0.00-0.50 MG/DL Total Protein 6.3 L 6.4-8.2 GM/DL Albumin 3.0 L 3.2-4.5 GM/DL Procalcitonin 0.81 H <0.10 NG/ML Influenza Type A (RT-PCR) Not Detected Not Detecte Influenza Type B (RT-PCR) Not Detected Not Detecte SARS-CoV-2 RNA (RT-PCR) Not Detected Not Detecte Prothrombin Time 15.7 H 12.2-14.7 SEC INR Comment 1.2 0.8-1.4 Activated Partial Thromboplast Time 41 H 24-35 SEC My Orders Orders - MYA MORSE MD Cbc With Automated Diff (03/04/22 14:05) Comprehensive Metabolic Panel (03/04/22 14:05) Blood Culture (03/04/22 14:05) Sputum Culture (03/04/22 14:05) Urinalysis (03/04/22 14:05) Urine Culture (03/04/22 14:05) Protime With Inr (03/04/22 14:05) Partial Thromboplastin Time (03/04/22 14:05) Chest 1 View, Ap/Pa Only (03/04/22 14:05) Ed Iv/Invasive Line Start (03/04/22 14:05) Ed Iv/Invasive Line Start (03/04/22 14:05) Vital Signs Adult Sepsis Patie Q15M (03/04/22 14:05) O2 (03/04/22 14:05) Remove Rings In Anticipation O (03/04/22 14:05) Lactic Acid Analyzer (03/04/22 14:05) Covid 19 Inhouse Test (03/04/22 14:05) Influenza A And B By Pcr (03/04/22 14:05) Isolation Central Supply Req (03/04/22 14:05) Procalcitonin (Pct) (03/04/22 14:05) Hs C Reactive Protein (03/04/22 14:05) Ekg Tracing (03/04/22 14:05) Creatine Kinase (03/04/22 14:07) Troponin I [place] (03/04/22 14:07) Manual Differential (03/04/22 14:07) Ns Iv 1000 Ml (Sodium Chloride 0.9%) (03/04/22 14:45) Vital Signs/I&O 03/04/22 03/04/22 14:01 14:01 Temp 37.7 Pulse 104 Resp 18 B/P (MAP) 105/66 (79) Pulse Ox 98 O2 Delivery Nasal Cannula O2 Flow Rate 2.00 Capillary Refill : ECG Initial ECG Impression Date: Mar 04, 2022 Initial ECG Impression Time: 14:17 Initial ECG Rate: 102 Initial ECG Rhythm: S.Tach Initial ECG Intervals: Normal Initial ECG Impression: Nonspecific Changes Diagnostic Imaging Diagonstic Imaging: Xray Plain Films/CT/US/NM/MRI: chest Comments [facility] [place], [place] NAME: ARSENIO JOLLY [facility] REC#: [id number] PT STATUS: REG ER : 1960 PHYSICIAN: MYA MORSE MD ADMIT DATE: 03/04/22/ER Draft Date of Exam:03/04/22 CHEST 1 VIEW, AP/PA ONLY INDICATION: Three day history of worsening shortness of air with low-grade fever, productive cough and generalized weakness. It is compared with radiograph of the chest 11/16/2021. FINDINGS: There is new bilobed nodular opacity projecting at and lateral to the right pulmonary hilum. Given its abrupt development, this is presumed owing to consolidating pneumonia but radiographic follow-up to confirm its clearance is indicated. There is severe underlying COPD as a superimposed chronic finding with no effusion, pneumothorax or failure pattern. IMPRESSION: Likely new right perihilar pneumonia but warranting radiographic follow-up as there are severe background emphysematous changes superimposed with no acute pleural pathology or failure pattern. Dictated on workstation # [id number] Dict: 03/04/22 1519 Trans: 03/04/[address] [facility] [id number] Interpreted by: AUGUSTO FOSTER Electronically signed by: Departure Communication (Admissions) Time/Spoke to Admitting Phy: 15:[address] Duong Impression Primary Impression: Pneumonia Qualified Codes: J18.9 - Pneumonia, unspecified organism Additional Impressions: COPD with lower respiratory infection Sepsis due to pneumonia Disposition: ADMITTED INPATIENT Condition: Stable Admissions Decision to Admit Reason: Admit from ER (General) Decision to Admit/Date: Mar 04, 2022 Time/Decision to Admit Time: 15:39 Departure-Patient Inst. Referrals: JAY BAUTISTA MD (PCP/Family) Primary Care Physician MYA MORSE MD Mar 04, 2022 14:10
[2022-03-04 14:17] LABS: BASOPHILS % (AUTO) 0 % (0-10); EOSINOPHILS % (AUTO) 0 % (0-10); HEMATOCRIT 33 % (40-54); HEMOGLOBIN 11.2 g/dL (13.3-17.7); LYMPHOCYTES # (AUTO) 0.9 10^3/uL (1.0-4.0); LYMPHOCYTES % (AUTO) 5 % (12-44); MEAN CORPUSCULAR HEMOGLOBIN 30 pg (25-34); MEAN CORPUSCULAR HGB CONC 34 g/dL (32-36); MEAN CORPUSCULAR VOLUME 90 fL (80-99); MEAN PLATELET VOLUME 9.7 fL (9.0-12.2); MONOCYTES # (AUTO) 1.2 10^3/uL (0.0-1.0); MONOCYTES % (AUTO) 7 % (0-12); NEUTROPHILS # (AUTO) 16.3 10^3/uL (1.8-7.8); NEUTROPHILS % (AUTO) 88 % (42-75); PLATELET COUNT 325 10^3/uL (130-400); WHITE BLOOD COUNT 18.6 10^3/uL (4.3-11.0)
[2022-03-04 14:28] LABS: CHLORIDE 90 MMOL/L (98-107); POTASSIUM 3.6 MMOL/L (3.6-5.0); SODIUM 130 MMOL/L (135-145)
[2022-03-04 14:29] LABS: CALCIUM 8.3 MG/DL (8.5-10.1)
[2022-03-04 14:30] LABS: GLUCOSE 81 MG/DL (70-105); TOTAL PROTEIN 6.3 GM/DL (6.4-8.2)
[2022-03-04 14:31] LABS: CARBON DIOXIDE 28 MMOL/L (21-32)
[2022-03-04 14:32] LABS: BILIRUBIN,TOTAL 0.9 MG/DL (0.1-1.0)
[2022-03-04 14:34] LABS: ALKALINE PHOSPHATASE 103 U/L (40-136); CREATININE SERUM 0.57 MG/DL (0.60-1.30); GFR ESTIMATED 113
[2022-03-04 14:35] LABS: BUN/CREATININE RATIO 18
[2022-03-04 14:37] LABS: ALANINE AMINOTRANSFERASE 15 U/L (0-55); CREATINE KINASE 452 U/L (30-200)
[2022-03-04] MEDS ORDERED: NS IV 1000 ML 1,000 ML IV SCH (14:45)
[2022-03-04 14:55] LABS: LYMPHOCYTES % (MANUAL) 8 %; MONOCYTES % (MANUAL) 4 %; NEUTROPHILS % (MANUAL) 88 %; RBC MORPH NORMAL
[2022-03-04 14:59] LABS: INR 1.2 (0.8-1.4); PROTHROMBIN TIME PATIENT 15.7 SEC (12.2-14.7)
--- NOTE | 2022-03-04 15:26 | Diagnostic Imaging Report ---
INDICATION: Three day history of worsening shortness of air with low-grade fever, productive cough and generalized weakness. It is compared with radiograph of the chest 11/16/2021. FINDINGS: There is new bilobed nodular opacity projecting at and lateral to the right pulmonary hilum. Given its abrupt development, this is presumed owing to consolidating pneumonia but radiographic follow-up to confirm its clearance is indicated. There is severe underlying COPD as a superimposed chronic finding with no effusion, pneumothorax or failure pattern. IMPRESSION: Likely new right perihilar pneumonia but warranting radiographic follow-up as there are severe background emphysematous changes superimposed with no acute pleural pathology or failure pattern. Dictated by: Dictated on workstation # [id number]
[2022-03-04] MEDS ORDERED: CEFEPIME INJECTION 2,000 MG in NS (IVPB) 50 ML IV ONE (15:45)
[2022-03-04] MEDS ORDERED: NS IV 1000 ML 1,000 ML ONE (16:19)
--- NOTE | 2022-03-04 16:33 | Tele-ICU Consult ---
History of Present Illness History of Present Illness Date Seen by Provider: Mar 04, 2022 Time Seen by Provider: 16:28 History of Present Illness 61 yo M came to ED with cough and SOB, has severe COPD with marked hyperinflation on CXR, CXR also shows possible riight hilar mass vs PNA Started on IV very cachetic SpO2 was 80% when EMT came Started on IV Cefepime BP has low 70/43, Has received 2 l IVF only weighs 48 kg PMH HTN Hx of CAD with stent a fib- not in a fib now WBC is 18.6, LA normal Allergies and Home Medications Allergies Coded Allergies: No Known Drug Allergies (Verified , 07/11/09) Home Medications Albuterol Sulfate 18 Gm Hfa.aer.ad, 2 PUFF INH Q6H PRN for SHORTNESS OF BREATH, (Reported) Alprazolam 0.5 Mg Tablet, 1 MG PO DAILY PRN for ANXIETY, (Reported) TAKES 2 (0.5MG) TABS Aspirin 81 Mg Tab.chew, 81 MG PO DAILY Prescribed by: CLAU DUONG on 11/10/21954 Atorvastatin Calcium 40 Mg Tablet, 40 MG PO HS Prescribed by: CLAU DUONG on 11/10/21954 Baclofen 10 Mg Tablet, 10 MG PO TID PRN for MUSCLE SPASMS, (Reported) Digoxin 125 Mcg Tablet, 250 MCG PO DAILY, (Reported) TAKES 2 (125MCG) TABS DAILY HOLD IF PULSE IS LESS THEN 60 Duloxetine HCl 60 Mg Capsule.dr, 60 MG PO DAILY, (Reported) Fluticasone/Umeclidin/Vilanter 1 Each Blst.w.dev, 1 PUFF INH DAILY, (Reported) Gabapentin 400 Mg Capsule, 400 MG PO TID, (Reported) Montelukast Sodium 10 Mg Tablet, 10 MG PO HS, (Reported) Multivits,Ca,Min/Iron/FA/Lycop 1 Each Tablet, 1 EACH PO DAILY, (Reported) Oxycodone HCl 5 Mg Tablet, 5 MG PO Q4H PRN for PAIN-SEVERE (8-10), (Reported) Rivaroxaban 20 Mg Tablet, 20 MG PO DAILY, (Reported) Tamsulosin HCl 0.4 Mg Cap, 0.4 MG PO 1800, (Reported) Past Medical/Social/Family Hx Patient Social History Tobacco Use?: Yes Tobacco type used: Cigarettes Smoking Status: Current Everyday Smoker Substance use?: No Alcohol Use?: Yes Alcohol type: Beer REPORTS HE HASNT DRANK FOR 8 MONTHS Pt stated abuse/neglect: No Immunizations Up To Date First/Initial COVID19 Vaccinat: FEBRUARY Second COVID19 Vaccination Hemanth: MARCH Tetanus Booster (TDap): Unknown Hepatitis A: No Hepatitis B: No TB Skin Test: None Current Status Advance Directives: No Primary Language: Jamaican Preferred Spoken Language: Jamaican Review of Systems Constitutional: see HPI EENTM: see HPI Respiratory: see HPI Cardiovascular: see HPI Gastrointestinal: see HPI Genitourinary: see HPI Musculoskeletal: see HPI Skin: see HPI Psychiatric/Neurological: See HPI Focused Exam Lactate Level 03/04/22 14:07: Lactic Acid Level 0.81 Height, Weight, BMI Height: '" Weight: lbs. oz. kg; 17.00 BMI Method: Lactic Acid Level Laboratory Tests Test 03/04/22 14:07 Lactic Acid Level 0.81 MMOL/L (0.50-2.00) Exam Exam Patient acknowledged, consented, and participated in this virtual visit which was conducted using real time audio/video Vital Signs Date Time Temp Pulse Resp B/P (MAP) Pulse Ox O2 Delivery O2 Flow Rate FiO2 03/04/22 14:01 37.7 104 18 105/66 (79) 98 03/04/22 14:01 Nasal Cannula 2.00 Height & Weight Height: '" Weight: lbs. oz. kg; 17.00 BMI Method: General Appearance: No Apparent Distress, Cachetic Respiratory: Decreased Breath Sounds, Wheezing Cardiovascular: Regular Rate, Rhythm Capillary Refill: Less Than 3 Seconds Gastrointestinal: normal bowel sounds, non tender, soft Extremity: No Pedal Edema Neurologic/Psychiatric: Alert, No Motor/Sensory Deficits Results Lab Laboratory Tests 03/04/22 14:07 Assessment/Plan Assessment/Plan Severe continue on Duoneb, Azithromycin, Cefepime, would add IV Medrol BP is concerning, already recevied 2 l IVF Has good periopheral IV, will use Le vophed and keep rate < 5 mcg/min Temp 101, neg for flu and COVID Critical Care: Critically Ill Patient Time spent with patient (mins): 35 SILAS ABEBE MD Mar 04, 2022 16:33
--- NOTE | 2022-03-04 16:54 | Progress Note ---
Standard Progress Note Progress Notes/Assess & Plan Date Seen by a Provider: Mar 04, 2022 Time Seen by a Provider: 16:53 Final Diagnosis RN called for increased resp disttress and confusion, ABG about same, CXR looks same, mild hyperinflation, Has wet crackles, will give IVP Lasix 40 mg x 1 MD MIS Feldman,SILAS Reddy MD Mar 04, 2022 16:54
[2022-03-04 17:00] VITALS: BP 103/63
[2022-03-04] MEDS: NS IV 1000 ML 1,000 ML IV SCH (17:19)
[2022-03-04] MEDS ORDERED: RT-ALBUTEROL/IPRATROPIUM 3 ML (DUONEB) VIAL INH PRN (17:30)
[2022-03-04 17:32] LABS: BILIRUBIN,URINE NEGATIVE (NEGATIVE); CLARITY,URINE SL CLOUDY; COLOR,URINE YELLOW; GLUCOSE, URINE (UA) NEGATIVE (NEGATIVE); KETONES,URINE 3+ (NEGATIVE); LEUKOCYTE ESTERASE ,URINE NEGATIVE (NEGATIVE); NITRITE,URINE NEGATIVE (NEGATIVE); PROTEIN,URINE TRACE (NEGATIVE)
[2022-03-04] MEDS: AZITHROMYCIN 500 MG/NS 250 ML IVPB IV SCH ×2 (17:32)
[2022-03-04 17:38] LABS: BACTERIA,URINE TRACE /HPF; WBC,URINE 0-2 /HPF
[2022-03-04 17:39] LABS: URINE OTHER RARE TRANS EPI /HPF
[2022-03-04] MEDS ORDERED: NOREPINEPHRINE 8 MG/250 ML 250 ML IV ONE (17:42)
[2022-03-04 18:09] LABS: AMPHETAMINE SCREEN, URINE NEGATIVE (NEGATIVE); BENZODIAZEPINES SCREEN URINE POSITIVE (NEGATIVE); CANNABINOID SCREEN, URINE POSITIVE (NEGATIVE); COCAINE SCREEN URINE NEGATIVE (NEGATIVE); OPIATE SCREEN URINE NEGATIVE (NEGATIVE)
[2022-03-04 18:10] LABS: BARBITURATE SCREEN URINE NEGATIVE (NEGATIVE); METHADONE STAT NEGATIVE (NEGATIVE); OXYCODONE STAT POSITIVE (NEGATIVE); PROPOXYPHENE STAT NEGATIVE (NEGATIVE); TRICYCLIC ANTIDEPRESSANTS SCRE NEGATIVE (NEGATIVE)
[2022-03-04] MEDS: NOREPINEPHRINE 8 MG/250 ML 250 ML IV SCH (18:14)
[2022-03-04] MEDS: ACETAMINOPHEN 500 MG TAB (TYLENOL) PO PRN (18:27)
[2022-03-04] MEDS: RT-ALBUTEROL/IPRATROPIUM 3 ML (DUONEB) VIAL INH SCH ×2 (19:05→19:12)
[2022-03-04] MEDS: predniSONE 10 MG TAB PO SCH (22:03)
[2022-03-05] MEDS: RT-ALBUTEROL/IPRATROPIUM 3 ML (DUONEB) VIAL INH SCH ×6 (02:00→23:08)
[2022-03-05] MEDS: NS IV 1000 ML 1,000 ML IV SCH ×3 (02:50→23:00)
[2022-03-05 03:50] LABS: BASOPHILS % (AUTO) 0 % (0-10); EOSINOPHILS % (AUTO) 0 % (0-10); HEMATOCRIT 34 % (40-54); HEMOGLOBIN 11.3 g/dL (13.3-17.7); LYMPHOCYTES # (AUTO) 0.4 10^3/uL (1.0-4.0); LYMPHOCYTES % (AUTO) 3 % (12-44); MEAN CORPUSCULAR HEMOGLOBIN 30 pg (25-34); MEAN CORPUSCULAR HGB CONC 33 g/dL (32-36); MEAN CORPUSCULAR VOLUME 90 fL (80-99); MEAN PLATELET VOLUME 9.4 fL (9.0-12.2); MONOCYTES # (AUTO) 0.4 10^3/uL (0.0-1.0); MONOCYTES % (AUTO) 2 % (0-12); NEUTROPHILS # (AUTO) 14.6 10^3/uL (1.8-7.8); NEUTROPHILS % (AUTO) 94 % (42-75); PLATELET COUNT 395 10^3/uL (130-400); WHITE BLOOD COUNT 15.5 10^3/uL (4.3-11.0)
[2022-03-05 04:30] LABS: POTASSIUM 3.5 MMOL/L (3.6-5.0)
[2022-03-05 04:31] LABS: CALCIUM 8.3 MG/DL (8.5-10.1)
[2022-03-05 04:36] LABS: CREATININE SERUM 0.56 MG/DL (0.60-1.30); PHOSPHORUS 2.5 MG/DL (2.3-4.7)
[2022-03-05 04:38] LABS: MAGNESIUM 2.3 MG/DL (1.6-2.4)
[2022-03-05] MEDS: CEFEPIME 1,000 MG/NS 50 ML IVPB IV SCH ×8 (04:56→20:54)
[2022-03-05] MEDS: POTASSIUM CL 10MEQ/50ML IVPB 50 ML IV SCH ×2 (07:31→08:15)
--- NOTE | 2022-03-05 12:03 | Tele-ICU Progress Note ---
Subjective Date Seen by a Provider: Mar 05, 2022 Time Seen by a Provider: 09:02 Subjective/Events-last exam (Tele-ICU Physician , Progress Note ) Available chart/ vitals / labs / Images reviewed Video assessment done using teleICU camera, rest of exam as per RN Discussed with RN , EXAM PER RN Events overnight : Afebrile FiO2 - 4L I/O = neg Drips: 100 ns Pressors: LEVO Consultants: Hospital course: (03/04) 61/M Admitted from ED w/ PNA. 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 Discussed with RN to reach out if any questions or concerns A total of 31 minutes of critical care time was devoted to this patient today, required to treat and/or prevent further deterioration of critical care condition ( as above) . Sepsis Event Evaluation Height, Weight, BMI Height: '" Weight: lbs. oz. kg; 15.86 BMI Method: Focused Exam Lactate Level 03/04/22 14:07: Lactic Acid Level 0.81 Exam Exam Patient acknowledged, consented, and participated in this virtual visit which was conducted using real time audio/video Vital Signs Date Time Temp Pulse Resp B/P (MAP) Pulse Ox O2 Delivery O2 Flow Rate FiO2 03/05/22 11:59 36.2 03/05/22 11:05 100 Nasal Cannula 4.00 03/05/22 11:00 87 28 109/65 95 Nasal Cannula 4.00 03/05/22 10:00 74 28 102/61 99 Nasal Cannula 4.00 03/05/22 09:00 65 20 102/63 100 Nasal Cannula 4.00 03/05/22 08:00 66 17 113/75 100 Nasal Cannula 4.00 03/05/22 07:52 95 Nasal Cannula 4.00 03/05/22 07:52 36.4 03/05/22 07:00 66 26 110/70 95 Nasal Cannula 4.00 03/05/22 07:00 61 03/05/22 06:00 63 24 103/69 98 Nasal Cannula 4.00 03/05/22 05:00 68 27 107/63 95 Nasal Cannula 4.00 03/05/22 04:00 70 18 89/70 97 Nasal Cannula 4.00 03/05/22 03:00 68 27 123/74 98 Nasal Cannula 4.00 03/05/22 02:01 94 Nasal Cannula 1.00 03/05/22 02:00 70 24 106/63 98 Nasal Cannula 4.00 03/05/22 01:00 62 03/05/22 01:00 61 21 116/74 95 Nasal Cannula 4.00 03/05/22 00:00 67 20 104/63 97 Nasal Cannula 4.00 03/04/22 23:00 69 22 115/73 97 Nasal Cannula 4.00 03/04/22 22:00 72 24 121/75 92 Nasal Cannula 4.00 03/04/22 21:00 77 22 114/72 92 Nasal Cannula 4.00 03/04/22 20:00 80 12 105/67 92 Nasal Cannula 4.00 03/04/22 19:34 36.7 80 26 115/63 91 Nasal Cannula 4.00 03/04/22 19:13 95 Nasal Cannula 1.00 03/04/22 19:00 80 03/04/22 19:00 80 28 111/67 94 Nasal Cannula 4.00 03/04/22 18:57 36.7 03/04/22 18:27 38.3 03/04/22 18:14 81 89/54 03/04/22 18:00 90 26 89/54 90 Nasal Cannula 4.00 03/04/22 17:00 73 26 93/54 91 Nasal Cannula 4.00 03/04/22 17:00 37.7 94 90 3 03/04/22 16:45 93 26 93/60 91 Nasal Cannula 4.00 03/04/22 16:42 94 03/04/22 16:28 94 22 103/63 90 Nasal Cannula 4.00 03/04/22 16:25 92 Nasal Cannula 4.00 03/04/22 16:25 38.3 03/04/22 14:01 37.7 104 18 105/66 (79) 98 03/04/22 14:01 Nasal Cannula 2.00 I & O 03/05/22 07:00 Intake Total 1200 ml Output Total 1255 ml Balance -55 ml Height & Weight Height: '" Weight: lbs. oz. kg; 15.86 BMI Method: General Appearance: No Apparent Distress, Cachetic Respiratory: Decreased Breath Sounds, Wheezing Cardiovascular: Regular Rate, Rhythm Capillary Refill: Less Than 3 Seconds Gastrointestinal: normal bowel sounds, non tender, soft Extremity: No Pedal Edema Neurologic/Psychiatric: Alert, No Motor/Sensory Deficits Results Lab Laboratory Tests 03/04/22 14:07 03/05/22 03:25 Assessment/Plan Assessment/Plan ` YADY VIGIL MD Mar 05, 2022 12:03
[2022-03-05] MEDS: RIVAROXABAN 20 MG TABLET (XARELTO) PO SCH (16:47)
[2022-03-05] MEDS: AZITHROMYCIN 500 MG/NS 250 ML IVPB IV SCH ×2 (16:48)
[2022-03-05] MEDS: NOREPINEPHRINE 8 MG/250 ML 250 ML IV SCH (18:15)
--- NOTE | 2022-03-05 19:31 | History & Physical-Hospitalist ---
History of Present Illness HPI/Chief Complaint Moshe Soto is a 61 year old male with PMH HTN ,AFib, CAD, PVD, tobacco abuse, COPD, who presented with shortness of breath. He also reports fever. He has had a productive cough. He has been feeling tired and weak. He denies abdominal pain. He denies nausea and vomiting. He denies diarrhea. He denies dysuria. He denies chest pain. Source: patient Exam Limitations: no limitations Date Seen 03/05/22 Time Seen by a Provider: 09:00 Attending Physician Callum Davenport MD PCP Admitting Physician: Clau Oliveira MD Attending Physician: Clau Oliveira MD Referring Physician Date of Admission Mar 04, 2022 at 15:40 Home Medications & Allergies Home Medications Reviewed patient Home Medication Reconciliation performed by pharmacy medication reconciliations septic tank service technician and/or nursing. Patients Allergies have been reviewed. Allergies Allergies Coded Allergies No Known Drug Allergies (Srjptskw42/25/09) Past Gtzrwzg-Mrofsx-Xqdbup Hx Patient Social History Tobacco Use?: Yes Tobacco type used: Cigarettes Smoking Status: Current Everyday Smoker Use of E-Cig and/or Vaping dev: No Substance use?: No Alcohol Use?: Yes Alcohol type: Beer Additional Alcohol Comments: REPORTS HE HASNT DRANK FOR 8 MONTHS Pt feels they are or have been: No Immunizations Up To Date Date of Influenza Vaccine: Jun 17, 2022 First/Initial COVID19 Vaccinat: 2020 Second COVID19 Vaccination Hemanth: 2020 Tetanus Booster (TDap): Unknown Hepatitis A: No Hepatitis B: No PED Vaccines UTD: No Seasonal Allergies Seasonal Allergies: Yes (hayfever) Current Status Advance Directives: No Communicates: Verbally Primary Language: Vincentian Preferred Spoken Language: Vincentian Is interpretation needed?: No Sensory deficits: Hearing impairment Past Medical History Surgeries: Orthopedic Pneumonia, COPD Currently Using CPAP: No Currently Using BIPAP: No Atrial Fibrillation, Deep Vein Thrombosis, Hypertension Neuropathy Sexually Transmitted Disease: No HIV/AIDS: No Renal Failure Abdominal Hernia, Gastrointestinal Bleed Chronic Back Pain Tinnitis Loss of Vision: Denies Hearing Impairment: Deaf Recent Skin Changes Blood Disorders: No Adverse Reaction/Blood Tranf: No Family Medical History Alcoholism 19 FATHER 19 MOTHER Arthritis 19 FATHER 19 MOTHER No Pertinent Family Hx, Other Conditions/Hx Review of Systems Constitutional: fever, weakness EENTM: no symptoms reported Respiratory: cough, short of breath Cardiovascular: no symptoms reported Gastrointestinal: no symptoms reported Genitourinary: no symptoms reported Musculoskeletal: no symptoms reported Skin: no symptoms reported Psychiatric/Neurological: No Symptoms Reported Physical Exam Physical Exam Vital Signs Vital Signs - First Documented 03/04/22 03/04/22 14:01 17:00 Temp 37.7 Pulse 104 Resp 18 B/P (MAP) 105/66 (79) Pulse Ox 98 O2 Delivery Nasal Cannula O2 Flow Rate 2.00 FiO2 3 Capillary Refill : Less Than 3 Seconds Height, Weight, BMI Height: '" Weight: lbs. oz. kg; 15.86 BMI Method: General Appearance: Chronically ill, Mild Distress (fatigued), Thin HEENT: PERRL/EOMI, Pharynx Normal Neck: Normal Inspection, Supple Respiratory: No Respiratory Distress, Crackles, Decreased Breath Sounds Gastrointestinal: Normal Bowel Sounds, Non Tender, Soft Extremity: Normal Inspection, Non Tender, No Pedal Edema Neurologic/Psychiatric: Alert, Motor Weakness, Other (dozing off during co nversation) Skin: Normal Color, Warm/Dry Results Results/Procedures Labs Laboratory Tests 03/04/22 14:07 03/05/22 03:25 Patient resulted labs reviewed. Imaging: Reviewed Imaging Films, Reviewed Imaging Report Assessment/Plan Admission Diagnosis Septic shock Admission Status: Inpatient Order (span 2 midnights) Reason for Inpatient Admission: IV pressors and antibiotics Assessment and Plan Septic shock Pneumonia Acute on chronic respiratory failure with hypoxia COPD with acute exacerbation TeleICU consulted IV pressors IV fluids Cefepime and Azithromycin Prednisone MAT protocol Supplemental oxygen as needed HTN CAD PAD AFib Continue home meds Critical Care Critically Ill Patient Diagnosis/Problems Diagnosis/Problems (1) Septic shock Status: Acute (2) PNA (pneumonia) Status: Acute (3) COPD with acute exacerbation Status: Acute (4) Acute on chronic respiratory failure with hypoxia Status: Acute (5) Severe protein-calorie malnutrition Status: Acute CLAU OLIVEIRA MD Mar 05, 2022 19:31
[2022-03-05] MEDS: predniSONE 10 MG TAB PO SCH (20:54)
--- NOTE | 2022-03-06 00:58 | Progress Note ---
Standard Progress Note Progress Notes/Assess & Plan Date Seen by a Provider: Mar 06, 2022 Time Seen by a Provider: 00:57 Progress/Assessment & Plan wants something for sleep, takes Xanax at home, will order 0.5mg MD MIS Feldman JOSEPH K MD Mar 06, 2022 00:58
[2022-03-06] MEDS ORDERED: ALPRAZolam 0.25 MG (XANAX) TAB ONE (02:25)
[2022-03-06] MEDS ORDERED: ALPRAZolam 0.25 MG (XANAX) TAB PO PRN (02:30)
[2022-03-06] MEDS: RT-ALBUTEROL/IPRATROPIUM 3 ML (DUONEB) VIAL INH SCH ×6 (02:57→22:22)
[2022-03-06 04:12] LABS: BASOPHILS % (AUTO) 0 % (0-10); EOSINOPHILS % (AUTO) 0 % (0-10); HEMATOCRIT 29 % (40-54); HEMOGLOBIN 9.6 g/dL (13.3-17.7); LYMPHOCYTES # (AUTO) 0.5 10^3/uL (1.0-4.0); LYMPHOCYTES % (AUTO) 4 % (12-44); MEAN CORPUSCULAR HEMOGLOBIN 30 pg (25-34); MEAN CORPUSCULAR HGB CONC 33 g/dL (32-36); MEAN CORPUSCULAR VOLUME 90 fL (80-99); MEAN PLATELET VOLUME 9.4 fL (9.0-12.2); MONOCYTES # (AUTO) 0.4 10^3/uL (0.0-1.0); MONOCYTES % (AUTO) 3 % (0-12); NEUTROPHILS # (AUTO) 11.2 10^3/uL (1.8-7.8); NEUTROPHILS % (AUTO) 92 % (42-75); PLATELET COUNT 329 10^3/uL (130-400); WHITE BLOOD COUNT 12.2 10^3/uL (4.3-11.0)
[2022-03-06 04:27] LABS: ALBUMIN 2.5 GM/DL (3.2-4.5); POTASSIUM 3.5 MMOL/L (3.6-5.0)
[2022-03-06 04:28] LABS: CALCIUM 7.9 MG/DL (8.5-10.1)
[2022-03-06 04:29] LABS: TOTAL PROTEIN 5.3 GM/DL (6.4-8.2)
[2022-03-06 04:31] LABS: BILIRUBIN,TOTAL 0.3 MG/DL (0.1-1.0)
[2022-03-06 04:33] LABS: CREATININE SERUM 0.49 MG/DL (0.60-1.30); PHOSPHORUS 1.4 MG/DL (2.3-4.7)
[2022-03-06 04:47] LABS: LYMPHOCYTES % (MANUAL) 3 %; MONOCYTES % (MANUAL) 2 %; NEUTROPHILS % (MANUAL) 95 %; POIKILOCYTOSIS SLIGHT; POLYCHROMASIA SLIGHT
[2022-03-06 04:48] LABS: BURR CELLS SLIGHT
[2022-03-06] MEDS: POTASSIUM CL 10MEQ/50ML IVPB 50 ML IV SCH (05:07)
[2022-03-06] MEDS: MAGNESIUM 1 GM/100 ML IVPB 100 ML IV SCH (05:07)
[2022-03-06] MEDS: KCL 20 MEQ TAB (K-DUR) PO SCH (05:08)
[2022-03-06] MEDS: CEFEPIME 1,000 MG/NS 50 ML IVPB IV SCH ×8 (05:26→22:05)
--- NOTE | 2022-03-06 07:29 | Diagnostic Imaging Report ---
HISTORY: Pneumonia COMPARISON: 03/04/2022 TECHNIQUE: Frontal view of the chest. FINDINGS: The lung volumes are large and emphysematous. There is airspace consolidation in the right perihilar region which is unchanged. There is no pleural effusion or pneumothorax. The cardiac silhouette is stable in size. IMPRESSION: 1. Right perihilar airspace consolidation, stable since the prior exam. Dictated by: Dictated on workstation # [id number]
[2022-03-06] MEDS ORDERED: KCL 20 MEQ TAB (K-DUR) PO ONE (09:00)
[2022-03-06] MEDS: NS IV 1000 ML 1,000 ML IV SCH (09:24)
[2022-03-06] MEDS: ASPIRIN 81 MG CHEW (CHILDREN'S ASA) PO SCH (09:42)
[2022-03-06] MEDS: DIGOXIN 0.25 MG (LANOXIN) TAB PO SCH (09:42)
[2022-03-06] MEDS: DULoxetine 30 MG (CYMBALTA) CAP PO SCH (09:42)
[2022-03-06] MEDS: PANTOPRAZOLE 40 MG (PROTONIX) TAB PO SCH (09:42)
[2022-03-06] MEDS: GABAPENTIN 400 MG (NEURONTIN) CAP PO SCH ×2 (09:42→20:08)
--- NOTE | 2022-03-06 10:26 | Physical Therapy Evaluation ---
PT Evaluation-General Medical Diagnosis Admission Date Mar 04, 2022 at 15:40 Medical Diagnosis: sepsis due to pneumonia/COPD Onset Date: Mar 04, 2022 Therapy Diagnosis Therapy Diagnosis: debility/weakness Precautions Precautions/Isolations: Fall Prevention, Standard Precautions Referral Physician: Roxanne Reason for Referral: Evaluation/Treatment Medical History Pertinent Medical History: Atrial Fib, Alcoholism, COPD, HTN, Renal Insufficiency, Smoking, TBI Additional Medical History lung mass Current History EMS secondary to SOA Reviewed History: Yes Social History Home: Single Level Current Living Status: Other Family Prior Prior Level of Function SCALE: Activities may be completed with or without assistive devices. 4-Ptiefhcfud-yhlrwoz completes the activity by him/herself with no assistance from a helper. 5-Set-up or Clean-up Assistance-helper sets up or cleans up; patient completes activity. [place] assists only prior to or following the activity. 4-Supervision or Touching Assistance-helper provides verbal cues and/or touching/steadying and/or contact guard assistance as patient completes activity. Assistance may be provided throughout the activity or intermittently. 3-Partial/Moderate Assistance-helper does LESS THAN HALF the effort. [place] lifts, holds or supports trunk or limbs, but provides less than half the effort. 2-Substantial/Maximal Assistance-helper does MORE THAN HALF the effort. [place] lifts or holds trunk or limbs and provides more than half the effort. 7-Maodozcie-tqpuaf does ALL the effort. Patient does none of the effort to complete the activity. Or, the assistance of 2 or more helpers is required for the patient to complete the activity. If activity was not attempted, code reason: 7-Patient Refused. 9-Not Applicable-not attempted and the patient did not perform the activity before the current illness, exacerbation or injury. 10-Not Attempted due to Environmental Limitations-(lack of equipment, weather restraints, etc.). 88-Not Attempted due to Medical Conditions or Safety Concerns. Bed Mobility: 6 Transfers (B,C,W/C): 6 Gait: 6 Stairs: 6 Indoor Mobility (Ambulation): Independent Stairs: Independent Prior Devices Use: Walker (PRN) PT Evaluation-Current Subjective Patient agrees to PT. Objective Patient Orientation: Normal For Age Attachments: Oxygen, Jackson Catheter, IV ROM/Strength ROM Lower Extremities bilateral LE WFL Strength Lower Extremities 3+/5 grossly bilateral LE Integumentary/Posture Integumentary refer to nursing notes Bladder Incontinence: Jackson Cath Posture WFL Neuromuscular (Tone, Coordination, Reflexes) diminished coordination due to weakness Sensory Vision: Functional Hearing: Functional Transfers Lying to Sitting/Side of Bed(Q: 4 Sit to Stand (QC): 4 Chair/Dhu-xs-Vqfiq Xfer(QC): 4 Gait Does the Patient Walk?: Yes Mode of Locomotion: Walk Anticipated Mode of Locomotion: Walk Walk 10 feet (QC): 4 Walk 50 ft with 2 Turns(QC): 4 Gait Assistive Device: FWW Comments/Gait Description slightly unsteady due to weakness Balance Sitting Static: Normal Sitting Dynamic: Normal Standing Static: Fair Standing Dynamic: Fair Assessment/Needs 61 y.o. male, will benefit from skilled PT to address functional strength and mobility to improve current LOF to safely return to home with family at maximum LOF. 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 Jail Goals PT Jail Goals Time Frame: Mar 18, 2022 Roll Left & Right (QC): 6 Sit to Lying (QC): 6 Lying-Sitting on Side/Bed(QC): 6 Sit to Stand (QC): 6 Chair/Gnx-pp-Skxdx Xfer(QC): 6 Toilet Transfer (QC): 6 Walk 10 feet (QC): 6 Walk 50ft with 2 Turns (QC): 6 Walk 150 ft (QC): 6 PT Plan Problem List Problem List: Activity Tolerance, Functional Strength, Safety, Balance, Gait, Transfer, Bed Mobility Treatment/Plan Treatment Plan: Continue Plan of Care Treatment Plan: Bed Mobility, Education, Functional Activity Lorena, Functional Strength, Gait, Safety, Therapeutic Exercise, Transfers Treatment Duration: Mar 18, 2022 Frequency: 6 times per week Estimated Hrs Per Day: .25 hour per day Patient and/or Family Agrees t: Yes Time/GCodes Time In: 740 Time Out: 759 Total Billed Treatment Time: 19 Total Billed Treatment 1 visit EVModC 19 min IDRIS ONEIL PT Mar 06, 2022 10:26
[2022-03-06] MEDS ORDERED: ATOR40TA70 PO (11:45)
[2022-03-06] MEDS ORDERED: IPRA3AMP31 IH (11:45)
[2022-03-06] MEDS ORDERED: POTA-179 PO (11:45)
[2022-03-06] MEDS ORDERED: FURO40TA4 PO (11:45)
--- NOTE | 2022-03-06 12:25 | Tele-ICU Progress Note ---
Subjective Time Seen by a Provider: 09:06 Subjective/Events-last exam (Tele-ICU Physician , Progress Note ) Available chart/ vitals / labs / Images reviewed Video assessment done using teleICU camera, rest of exam as per RN Discussed with RN , EXAM PER RN Events overnight : LEVO OFF Afebrile FiO2 - 4L I/O = neg Drips: 100 ns Pressors: LEVO OFF Consultants: Hospital course: (03/04) 61/M Admitted from ED w/ PNA. 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 Discussed with RN to reach out if any questions or concerns A total of 31 minutes of critical care time was devoted to this patient today, required to treat and/or prevent further deterioration of critical care condition ( as above) . Sepsis Event Evaluation Height, Weight, BMI Height: '" Weight: lbs. oz. kg; 15.86 BMI Method: Focused Exam Lactate Level 03/04/22 14:07: Lactic Acid Level 0.81 Exam Exam Patient acknowledged, consented, and participated in this virtual visit which was conducted using real time audio/video Vital Signs Date Time Temp Pulse Resp B/P (MAP) Pulse Ox O2 Delivery O2 Flow Rate FiO2 03/06/22 10:32 95 Nasal Cannula 1.00 03/06/22 10:00 59 24 113/65 94 Nasal Cannula 4.00 03/06/22 09:00 61 32 108/70 96 Nasal Cannula 4.00 03/06/22 08:00 94 Nasal Cannula 4.00 03/06/22 08:00 36.0 77 27 110/71 97 Nasal Cannula 4.00 03/06/22 07:15 96 Nasal Cannula 1.00 03/06/22 07:00 59 03/06/22 07:00 59 26 113/77 95 Nasal Cannula 4.00 03/06/22 06:00 72 19 91/50 94 Nasal Cannula 4.00 03/06/22 05:00 70 21 105/60 94 Nasal Cannula 4.00 03/06/22 04:00 74 29 114/67 90 Nasal Cannula 4.00 03/06/22 04:00 95 Nasal Cannula 4.00 03/06/22 03:00 72 16 86/51 98 Nasal Cannula 4.00 03/06/22 02:57 97 Nasal Cannula 1.00 03/06/22 02:00 73 30 111/68 94 Nasal Cannula 4.00 03/06/22 01:00 81 20 100/55 96 Nasal Cannula 4.00 03/06/22 01:00 81 03/06/22 01:00 81 03/06/22 00:00 79 29 111/52 100 Nasal Cannula 4.00 03/06/22 00:00 93 Nasal Cannula 4.00 03/06/22 00:00 36.8 03/05/22 23:08 100 Nasal Cannula 1.00 03/05/22 23:00 79 25 119/73 100 Nasal Cannula 4.00 03/05/22 22:00 79 28 110/66 93 Nasal Cannula 4.00 03/05/22 21:00 80 24 91/56 97 Nasal Cannula 4.00 03/05/22 20:00 79 25 105/65 93 Nasal Cannula 4.00 03/05/22 20:00 92 Nasal Cannula 4.00 03/05/22 20:00 37.1 03/05/22 19:00 80 28 104/72 100 Nasal Cannula 4.00 03/05/22 19:00 80 03/05/22 18:57 97 Nasal Cannula 1.00 03/05/22 17:00 62 26 111/74 97 Nasal Cannula 4.00 03/05/22 16:00 77 101/54 96 Nasal Cannula 4.00 03/05/22 15:48 36.7 03/05/22 15:00 79 28 90/52 97 Nasal Cannula 4.00 03/05/22 14:40 100 Nasal Cannula 4.00 03/05/22 14:00 81 22 99/70 93 Nasal Cannula 4.00 03/05/22 13:00 77 27 114/73 100 Nasal Cannula 4.00 03/05/22 13:00 74 I & O 03/06/22 07:00 Intake Total 750 ml Output Total 2350 ml Balance -1600 ml Height & Weight Height: '" Weight: lbs. oz. kg; 15.86 BMI Method: General Appearance: Chronically ill, Mild Distress (fatigued), Thin HEENT: PERRL/EOMI, Pharynx Normal Neck: Normal Inspection, Supple Respiratory: No Respiratory Distress, Crackles, Decreased Breath Sounds Cardiovascular: Regular Rate, Rhythm Capillary Refill: Less Than 3 Seconds Gastrointestinal: normal bowel sounds, non tender, soft Extremity: Normal Inspection, Non Tender, No Pedal Edema Neurologic/Psychiatric: Alert, Motor Weakness, Other (dozing off during conversation) Skin: Normal Color, Warm/Dry Results Lab Laboratory Tests 03/04/22 14:07 03/05/22 03:25 03/06/22 04:05 Assessment/Plan Assessment/Plan 1 YADY VIGIL MD Mar 06, 2022 12:25
--- NOTE | 2022-03-06 14:21 | Occupational Therapy Eval ---
OT Evaluation-General/PLF Medical Diagnosis Admission Date Mar 04, 2022 at 15:40 Medical Diagnosis: sepsis due to pneumonia/COPD Onset Date: Mar 04, 2022 Therapy Diagnosis Therapy Diagnosis: decreased ADL status and weakness Precautions Precautions/Isolations: Fall Prevention, Standard Precautions Referral Physician: Roxanne Gonzalez Reason: Evaluation/Treatment Medical History Pertinent Medical History: Atrial Fib, Alcoholism, COPD, HTN, Renal Insufficiency, Smoking, TBI Additional Medical History PMH, HTN, Afib, CAD, PVD, tobacco abuse, COPD, DVT, neuropathy, renal failure, abdominal hernia, chronic back pain, and tinnitus. Current History C/O SOB, fever, tired and weakness Social History Home: Single Level Current Living Status: Other Family (brother) Entry Into Home: Stairs With Railing Steps Into Home: 2 (2 in the front door, 4 in the back door) ADL-Prior Level of Function SCALE: Activities may be completed with or without assistive devices. 6-Kiiwkcpmso-vcbztxj completes the activity by him/herself with no assistance from a helper. 5-Set-up or Clean-up Assistance-helper sets up or cleans up; patient completes activity. [place] assists only prior to or following the activity. 4-Supervision or Touching Assistance-helper provides verbal cues and/or touching/steadying and/or contact guard assistance as patient completes activity. Assistance may be provided throughout the activity or intermittently. 3-Partial/Moderate Assistance-helper does LESS THAN HALF the effort. [place] lifts, holds or supports trunk or limbs, but provides less than half the effort. 2-Substantial/Maximal Assistance-helper does MORE THAN HALF the effort. [place] lifts or holds trunk or limbs and provides more than half the effort. 7-Rmtieqjpd-wsdleu does ALL the effort. Patient does none of the effort to complete the activity. Or, the assistance of 2 or more helpers is required for the patient to complete the activity. If activity was not attempted, code reason: 7-Patient Refused. 9-Not Applicable-not attempted and the patient did not perform the activity before the current illness, exacerbation or injury. 10-Not Attempted due to Environmental Limitations-(lack of equipment, weather restraints, etc.). 88-Not Attempted due to Medical Conditions or Safety Concerns. ADL PLOF Comments Pt lives at home with brother. He reports that he is IND with ADLs prior to this incident but his brother helps with IADLs. He has a SPC and FWW but he uses them PRN when fatigued. Pt is on 3L of O2 via [place] at home. Pt is deaf in L ear but does not wear hearing aids. Self Care: Independent Functional Cognition: Independent DME/Equipment: Bath Chair, Tub/Shower OT Current Status Subjective Pt supine in bed prior to OT eval. Pt agreeable to eval/tx. Pt reports no concerns with ADLs at d/c but he does not feel that he is back to his "normal." Mental Status/Objective Patient Orientation: Person, Place, Situation Attachments: Jackson Catheter, Oxygen, Telemetry Current Glasses/Contacts: Yes (reading glasses) Dentures/Partials: No Hand Dominance: Left Upper Extremity ROM WFL ~150 degrees BUE flexion Upper Extremity Sensation Pt reports no UE numbness or tingling Upper Extremity Strength BUE grossly 3+/5 ADL-Treatment Eating (QC): 6 Lower Body Dressing (QC): 4 (SBA for balance ) On/Off Footwear (QC): 4 (SBA for balance) Other Treatments Pt laying in bed prior to OT eval/tx. Pt provided information about PLOF and home environment. Pt transferred supine to sit EOB, then to transport chair, SBA. OT assisted nurse with transferring pt to 4th floor room. Once at new room, he transferred to EOB, SBA. Pt participated in UE screen and donned/doffed gripper socks seated EOB, SBA for seated balance. He then transferred supine. Pt required SBA for all transfers. Post tx, pt left in bed with call light in reach and all needs met. Education OT Patient Education: Energy conservation, Modified ADL techniques, Progress toward Goal/Update tx plan, Purpose of tx/functional activities, Rehab process Teaching Recipient: Patient Teaching Methods: Discussion Response to Teaching: Verbalize Understanding OT Fci Goals Fci Goals Time Frame: Mar 17, 2022 Eating (QC): 6 Oral Hygiene (QC): 6 Toileting Hygiene (QC): 6 Shower/Bathe Self (QC): 6 Upper Body Dressing (QC): 6 Lower Body Dressing (QC): 6 On/Off Footwear (QC): 6 Additional Goals: 1-Demonstrate ADL Tasks, 2-Verbalize Understanding, 3- ImproveStrength/Lorena 1=Demonstrate adherence to instructed precautions during ADL tasks. 2=Patient will verbalize/demonstrate understanding of assistive devices/modifications for ADL. 3=Patient will improve strength/tolerance for activity to enable patient to perform ADL's. OT Education/Plan Problem List/Assessment Assessment: Decreased Activ Tolerance, Decreased UE Strength, Impaired Funct Ba marily, Impaired I ADL's, Impaired Self-Care Skills Discharge Recommendations Plan/Recommendations: Continue POC Therapy Discharge Recommendati: Home & Family Treatment Plan/Plan of Care Patient would benefit from OT for education, treatment and training to promote independence in ADL's, mobility, safety and/or upper extremity function for ADL's. Plan of Care: ADL Retraining, Functional Mobility, UE Funct Exercise/Act Treatment Duration: Mar 17, 2022 Frequency: 3 times per week (3-5x/wk) Estimated Hrs Per Day: .25 hour per day Rehab Potential: Fair Time/GCodes Start Time: 13:40 Stop Time: 14:09 Total Time Billed (hr/min): 29 Billed Treatment Time 1, EVL (10'), ADL (19') ASH ANTONY OT Mar 06, 2022 14:21
[2022-03-06] MEDS: ALPRAZolam 0.5 MG (XANAX) TAB PO PRN ×2 (15:42→23:48)
[2022-03-06] MEDS: RIVAROXABAN 20 MG TABLET (XARELTO) PO SCH (15:42)
[2022-03-06] MEDS: ACETAMINOPHEN 500 MG TAB (TYLENOL) PO PRN (15:42)
[2022-03-06] MEDS: AZITHROMYCIN 500 MG/NS 250 ML IVPB IV SCH ×2 (15:43)
[2022-03-06] MEDS: NOREPINEPHRINE 8 MG/250 ML 250 ML IV SCH (15:57)
--- NOTE | 2022-03-06 18:49 | Progress Note - Hospitalist ---
Subjective HPI/CC On Admission Date Seen by Provider: Mar 06, 2022 Time Seen by Provider: 09:40 Moshe Soto is a 61 year old male with PMH HTN ,AFib, CAD, PVD, tobacco abuse, COPD, who presented with shortness of breath. He also reports fever. He has had a productive cough. He has been feeling tired and weak. He denies abdominal pain. He denies nausea and vomiting. He denies diarrhea. He denies dysuria. He denies chest pain. Subjective/Events-last exam He is feeling a little better. He is sitting in his chair. His breathing is better. He denies pain. Focused Exam Lactate Level 03/04/22 14:07: Lactic Acid Level 0.81 Objective Exam Vital Signs Vital Signs Date Time Temp Pulse Resp B/P (MAP) Pulse Ox O2 Delivery O2 Flow Rate FiO2 03/06/22 16:00 37.0 70 18 103/60 95 Nasal Cannula 3.00 03/04/22 17:00 3 Capillary Refill : Less Than 3 Seconds General Appearance: No Apparent Distress, Chronically ill Respiratory: No Respiratory Distress, Decreased Breath Sounds Cardiovascular: Regular Rate, Rhythm, No Murmur Gastrointestinal: Normal Bowel Sounds, Soft Extremity: Normal Inspection, No Pedal Edema Neurologic/Psychiatric: Alert, Normal Mood/Affect, Motor Weakness Skin: Normal Color, Warm/Dry Results/Procedures Lab Laboratory Tests 03/06/22 04:05 Patient resulted labs reviewed. Imaging: Reviewed Imaging Films, Reviewed Imaging Report Assessment/Plan Assessment and Plan Assess & Plan/Chief Complaint Septic shock Pneumonia Acute on chronic respiratory failure with hypoxia COPD with acute exacerbation TeleICU following Off pressors now IV fluids Cefepime and Azithromycin Prednisone MAT protocol Supplemental oxygen as needed HTN CAD PAD AFib Continue home meds Diagnosis/Problems Diagnosis/Problems (1) Septic shock Status: Acute (2) PNA (pneumonia) Status: Acute (3) COPD with acute exacerbation Status: Acute (4) Acute on chronic respiratory failure with hypoxia Status: Acute (5) Severe protein-calorie malnutrition Status: Acute CLAU DUONG MD Mar 06, 2022 18:49
[2022-03-06] MEDS: predniSONE 10 MG TAB PO SCH (20:09)
[2022-03-06] MEDS ORDERED: MONTELUKAST 10 MG (SINGULAIR) TAB PO SCH (21:00)
[2022-03-07] MEDS: RT-ALBUTEROL/IPRATROPIUM 3 ML (DUONEB) VIAL INH SCH ×3 (02:42→11:02)
[2022-03-07] MEDS: CEFEPIME 1,000 MG/NS 50 ML IVPB IV SCH ×4 (04:32→08:44)
[2022-03-07 06:29] LABS: BASOPHILS % (AUTO) 0 % (0-10); EOSINOPHILS % (AUTO) 0 % (0-10); HEMATOCRIT 31 % (40-54); HEMOGLOBIN 9.9 g/dL (13.3-17.7); LYMPHOCYTES # (AUTO) 0.8 10^3/uL (1.0-4.0); LYMPHOCYTES % (AUTO) 16 % (12-44); MEAN CORPUSCULAR HEMOGLOBIN 30 pg (25-34); MEAN CORPUSCULAR HGB CONC 32 g/dL (32-36); MEAN CORPUSCULAR VOLUME 92 fL (80-99); MEAN PLATELET VOLUME 9.7 fL (9.0-12.2); MONOCYTES # (AUTO) 0.3 10^3/uL (0.0-1.0); MONOCYTES % (AUTO) 5 % (0-12); NEUTROPHILS # (AUTO) 4.2 10^3/uL (1.8-7.8); NEUTROPHILS % (AUTO) 79 % (42-75); PLATELET COUNT 377 10^3/uL (130-400); WHITE BLOOD COUNT 5.3 10^3/uL (4.3-11.0)
[2022-03-07 06:44] LABS: ALBUMIN 2.6 GM/DL (3.2-4.5)
[2022-03-07 06:46] LABS: CALCIUM 8.2 MG/DL (8.5-10.1)
[2022-03-07 06:47] LABS: TOTAL PROTEIN 5.6 GM/DL (6.4-8.2)
[2022-03-07 06:49] LABS: BILIRUBIN,TOTAL 0.2 MG/DL (0.1-1.0)
[2022-03-07 06:50] LABS: PHOSPHORUS 1.5 MG/DL (2.3-4.7)
[2022-03-07 06:51] LABS: CREATININE SERUM 0.55 MG/DL (0.60-1.30)
[2022-03-07 06:53] LABS: MAGNESIUM 2.1 MG/DL (1.6-2.4)
[2022-03-07] MEDS: MAGNESIUM 1 GM/100 ML IVPB 100 ML IV SCH (07:14)
[2022-03-07] MEDS: POTASSIUM CL 10MEQ/50ML IVPB 50 ML IV SCH (07:14)
[2022-03-07] MEDS: KCL 20 MEQ TAB (K-DUR) PO SCH (07:15)
[2022-03-07] MEDS ORDERED: POT PHOS/NA PHOS (K-PHOS NEUTRAL) PO ONE (07:45)
[2022-03-07] MEDS: GABAPENTIN 400 MG (NEURONTIN) CAP PO SCH (08:44)
[2022-03-07] MEDS: ASPIRIN 81 MG CHEW (CHILDREN'S ASA) PO SCH (08:44)
[2022-03-07] MEDS: PANTOPRAZOLE 40 MG (PROTONIX) TAB PO SCH (08:44)
[2022-03-07] MEDS: DULoxetine 30 MG (CYMBALTA) CAP PO SCH (08:44)
--- NOTE | 2022-03-07 09:34 | Physical Therapy Daily Note ---
PT Daily Note-Current Subjective Patient is very agreeable to participate with PT. Mental Status Patient Orientation: Normal For Age Attachments: Oxygen, Jackson Catheter Transfers SCALE: Activities may be completed with or without assistive devices. 3-Fmufopaahv-bifyuwm completes the activity by him/herself with no assistance from a helper. 5-Set-up or Clean-up Assistance-helper sets up or cleans up; patient completes activity. Amidon assists only prior to or following the activity. 4-Supervision or Touching Assistance-helper provides verbal cues and/or touching/steadying and/or contact guard assistance as patient completes activity . Assistance may be provided throughout the activity or intermittently. 3-Partial/Moderate Assistance-helper does LESS THAN HALF the effort. Amidon lifts, holds or supports trunk or limbs, but provides less than half the effort. 2-Substantial/Maximal Assistance-helper does MORE THAN HALF the effort. Amidon lifts or holds trunk or limbs and provides more than half the effort. 2-Pgmvwgual-qemigj does ALL the effort. Patient does none of the effort to complete the activity. Or, the assistance of 2 or more helpers is required for the patient to complete the activity. If activity was not attempted, code reason: 7-Patient Refused. 9-Not Applicable-not attempted and the patient did not perform the activity before the current illness, exacerbation or injury. 10-Not Attempted due to Environmental Limitations-(lack of equipment, weather restraints, etc.). 88-Not Attempted due to Medical Conditions or Safety Concerns. Lying to Sitting/Side of Bed(Q: 4 Sit to Stand (QC): 4 Chair/Oce-rz-Ldaov Xfer(QC): 4 Gait Training Distance: 275' Walk 10 feet (QC): 4 Walk 50 ft with 2 Turns(QC): 4 Walk 150 ft (QC): 4 Gait Assistive Device: FWW slow, steady with no deviation Exercises Seated Therapy Exercises: Ankle pumps, Long arc quads Seated Reps: 15 Assessment Current Status: Excellent Progress Patient much improved on this date and is up in recliner with needs met. Continue to increase activity as tolerated by patient. PT Shaker Tender Goals Senior Care Goals PT Shaker Tender Goals Time Frame: Mar 18, 2022 Roll Left & Right (QC): 6 Sit to Lying (QC): 6 Lying-Sitting on Side/Bed(QC): 6 Sit to Stand (QC): 6 Chair/Bfz-ia-Lxvfd Xfer(QC): 6 Toilet Transfer (QC): 6 Walk 10 feet (QC): 6 Walk 50ft with 2 Turns (QC): 6 Walk 150 ft (QC): 6 PT Plan Treatment/Plan Treatment Plan: Continue Plan of Care Treatment Plan: Bed Mobility, Education, Functional Activity Lorena, Functional Strength, Gait, Safety, Therapeutic Exercise, Transfers Treatment Duration: Mar 18, 2022 Frequency: 6 times per week Estimated Hrs Per Day: .25 hour per day Patient and/or Family Agrees t: Yes Time/GCodes Time In: 757 Time Out: 811 Total Billed Treatment Time: 14 Total Billed Treatment 1 visit FA 14 min IDRIS ONEIL PT Mar 07, 2022 09:34
[2022-03-07] MEDS ORDERED: AMOX1TAB12 PO (10:33)
[2022-03-07] MEDS: DIGOXIN 0.25 MG (LANOXIN) TAB PO SCH (11:11)
[2022-03-07 12:25] VITALS: BP 97/62
[2022-03-07] MEDS ORDERED: AZITHROMYCIN 250 MG TAB (ZITHROMAX) PO SCH (16:30)
--- NOTE | 2022-03-07 16:34 | Discharge Summary ---
Discharge Summary Reconcile Patient Problems Problems Reviewed?: Yes Instructions for Patient Via [facility] [employer], Assessment/Instructions Take medications as prescribed. Follow up with your PCP. Return with worsening shortness of breath, weakness, or if you feel like you are getting worse. Physician to follow Patient: Ethel Discharge Diet for Home: Low Sodium Diet Hospital Course Date of Admission: Mar 04, 2022 at 15:40 Admission Diagnosis : Septic shock due to pneumonia Family Physician/Provider: Callum Davenport MD Date of Discharge: 03/07/22 Discharge Diagnosis: Septic shock due to pneumonia Hospital Course: Moshe Soto (Willy) is a 61 year old male who presented with shortness of breath and was admitted with septic shock due to pneumonia. He was started on IV antibiotics and admitted to ICU. He required IV pressors initially. His blood pressures improved. He was stabilized and moved to the medical floor. His oxygen requirement returned to baseline. He should have a follow up chest xray in about month. He should follow up with his PCP in about a week. He was discharged home with home health in stable condition. Labs and Pending Lab Test: Laboratory Tests 03/07/22 05:57: White Blood Count 5.3, Red Blood Count 3.34L, Hemoglobin 9.9L, Hematocrit 31L, Mean Corpuscular Volume 92, Mean Corpuscular Hemoglobin 30, Mean Corpuscular Hemoglobin Concent 32, Red Cell Distribution Width 15.7H, Platelet Count 377, Mean Platelet Volume 9.7, Immature Granulocyte % (Auto) 0, Neutrophils (%) (Auto) 79H, Lymphocytes (%) (Auto) 16, Monocytes (%) (Auto) 5, Eosinophils (%) (Auto) 0, Basophils (%) (Auto) 0, Neutrophils # (Auto) 4.2, Lymphocytes # (Auto) 0.8L, Monocytes # (Auto) 0.3, Eosinophils # (Auto) 0.0, Basophils # (Auto) 0.0, Immature Granulocyte # (Auto) 0.0, Sodium Level 139, Potassium Level 4.0, Chloride Level 105, Carbon Dioxide Level 27, Anion Gap 7, Blood Urea Nitrogen 8, Creatinine 0.55L, Estimat Glomerular Filtration Rate 114, BUN/Creatinine Ratio 15, Glucose Level 132H, Calcium Level 8.2L, Corrected Calcium 9.3, Phosphorus Level 1.5L, Magnesium Level 2.1, Total Bilirubin 0.2, Aspartate Amino Transf (AST/SGOT) 35H, Alanine Aminotransferase (ALT/SGPT) 25, Alkaline Phosphatase 83, Total Protein 5.6L, Albumin 2.6L Microbiology 03/04/22 Urine Culture - Final, Complete NO GROWTH 03/04/22 MRSA Screen - Final, Complete MRSA not isolated 03/04/22 Blood Culture - Preliminary, Resulted No growth Home Meds Active Amox Tr-K Clv 875-125 mg Tab (Amoxicillin/Potassium Clav) 875 Mg-125 Mg Tablet 1 Each PO BID 5 Days Reported Potassium Chloride 20 Meq Tab.er.prt 20 Meq PO DAILY Iprat-Albut 0.5-3(2.5) mg/3 ml (Ipratropium/Albuterol Sulfate) 0.5 Mg-3 Mg (2.5 Mg Base)/3 Ml Ampul.neb 3 Ml IH BID PRN Furosemide 40 Mg Tablet 40 Mg PO DAILY Atorvastatin Calcium 40 Mg Tablet 40 Mg PO DAILY Oxycodone HCl 5 Mg Tablet 5 Mg PO Q6H PRN Centrum Ultra Men's Tablet (Multivits,Ca,Min/Iron/FA/Lycop) 1 Each Tablet 1 Each PO DAILY Ventolin Hfa (Albuterol Sulfate) 18 Gm Hfa.aer.ad 2 Puff INH Q6H PRN Alprazolam 0.5 Mg Tablet 0.5 Mg PO Q8H PRN Gabapentin 400 Mg Capsule 400 Mg PO TID Baclofen 10 Mg Tablet 10 Mg PO BID PRN Duloxetine HCl 60 Mg Capsule.dr 60 Mg PO DAILY Xarelto (Rivaroxaban) 20 Mg Tablet 20 Mg PO DAILY Patient Allergies: Coded Allergies: No Known Drug Allergies (Verified , 07/11/09) Home Health Need/Face to Face Date of Face to Face: Mar 07, 2022 Clinical Findings: Generalized weakness and fatigue, Muscle weakness I have seen Pt [id number]-cm-yjmu: Yes Discharged To: Home Diagnosis/Conditions: PNA COPD Debility Problems/Diagnosis/Condition: (1) PNA (pneumonia) (2) COPD with acute exacerbation (3) Acute on chronic respiratory failure with hypoxia (4) Debility Patient is Homebound due to: Brando fall risk due to instabilty, Muscle weakness Homebound Status Due to the above stated illness, injury or surgical procedure (medical condition or diagnosis) and associated clinical findings, the patient is homebound because of his/her inability to leave home except with aid of a supportive device and/or person AND leaving the home requires a considerable and taxing effort or is medically contraindicated. Pt req the following assistanc: Aid of another person Home Health Nursing Orders Home Health Services Order: Nursing Services, Garage Door Technician-Evaluate & Treat, Physical Therapy-Evaluate & Treat Home Health Infusion Therapy Line Start Date: Mar 04, 2022 Therapy Orders Therapy Orders: OT (must have SN or PT order), Physical Therapy Therapy Specific Orders: Eval assistive deivces, Teach enviro modifications/safety, Gait training, Increase strength/endurance Certify Stmt I certify that this patient is under my care and that I, a nurse practitioner or a physician; a certified medical assistant working with me, had a face to face encounter that - meets the physician face to face encounter requirements with this patient as dated. Discharge Physical Exam General: Alert, Oriented X3, Cooperative, No Acute Distress HEENT: EOMI, Mucous Memb Moist/[place] Lungs: Clear to Auscultation, Normal Air Movement Heart: Regular Rate, No Murmurs Abdomen: Normal Bowel Sounds, Soft, No Tenderness Extremities: No Edema, No Tenderness/Swelling Skin: No Rashes, No Significant Lesion Neuro: Normal Speech, Normal Tone Psych/Mental Status: Mental Status NL, Mood NL CLAU DUONG MD Mar 07, 2022 16:33
== END 2022-03-07 12:25 | disposition home health service (06) | DRG 871 ==
LOC: EDUNIT# 13:48 → ER 13:51 → ICU 15:40 → 4TH 03-06 13:52
PROVIDERS: ADMIT Internal Medicine; ATTEND Internal Medicine
DX: A41.9 Sepsis, unspecified organism (principal); R65.21 Severe sepsis with septic shock; E43 Unspecified severe protein-calorie malnutrition; J96.21 Acute and chronic respiratory failure with hypoxia; J44.0 Chronic obstructive pulmonary disease with (acute) lower respiratory infection; J44.1 Chronic obstructive pulmonary disease with (acute) exacerbation; Z68.1 Body mass index [BMI] 19.9 or less, adult; J44.9 Chronic obstructive pulmonary disease, unspecified; Z20.822 Contact with and (suspected) exposure to COVID-19; I48.0 Paroxysmal atrial fibrillation; I10 Essential (primary) hypertension; F17.210 Nicotine dependence, cigarettes, uncomplicated; I73.9 Peripheral vascular disease, unspecified; I25.10 Atherosclerotic heart disease of native coronary artery without angina pectoris; G62.9 Polyneuropathy, unspecified; Z95.5 Presence of coronary angioplasty implant and graft; Z86.718 Personal history of other venous thrombosis and embolism; H91.92 Unspecified hearing loss, left ear; S06.9X0S Unspecified intracranial injury without loss of consciousness, sequela; Z79.01 Long term (current) use of anticoagulants; Z79.82 Long term (current) use of aspirin
CPT/HCPCS: 36415; 71045; 80048; 80053; 80306; 81000; 82550; 83605; 83735; 84100; 84145; 84484; 85007; 85025; 85027; 85610; 85730; 86141; 87040; 87081; 87088; 87636; 93005; 94640

== ENCOUNTER 2022-04-19 12:45 | Inpatient (IN) | payer MEDICARE ==
[~2022-04-19] VITALS: Ht 167.7 cm; Wt 57.5 kg
[~2022-04-19 12:45] MED LIST changes: +AMOX1TAB12 PO; +ATOR40TA70 PO
--- NOTE | 2022-04-19 13:10 | ED General ---
General Chief Complaint: Overdose Stated Complaint: UNRESPONSIVE Source of Information: Patient, EMS, Family Exam Limitations: Other History of Present Illness Date Seen by Provider: Apr 19, 2022 Time Seen by Provider: 12:50 Initial Comments Patient to the ER by EMS from home with chief complaint of potential overdose. Patient was unreactive, pinpoint pupils found on the floor by his brother whom he lives with. Patient states he uses oxycodone 5 mg 3-4 times a day. He denies taking any extra doses. He is also on Lasix with a history of 2 stents and CVA a couple years ago. He does not have any recollection of what happened prior to coming here. He was given 2 mg of Narcan by EMS and came to and answered some questions but gives a very limited history. He is having some chest pain substernal reproducible to direct palpation without shortness of breath or nausea. He is a smoker and says he quit drinking many years ago. He denies any other recreational drug use. He denies suicidal ideation. He is also on Xanax and gabapentin. He takes Xarelto. Allergies and Home Medications Allergies Coded Allergies: No Known Drug Allergies (Verified , 07/11/09) Patient Home Medication List Home Medication List Reviewed: Yes Albuterol Sulfate (Ventolin Hfa) 18 Gm Hfa.aer.ad, 2 PUFF INH Q6H PRN for SHORTNESS OF BREATH, (Reported) Entered as Reported by: PRISCILLA DELGADO on 11/04/21 1557 Alprazolam (Alprazolam) 0.5 Mg Tablet, 0.5 MG PO Q8H PRN for ANXIETY, (Reported) Entered as Reported by: PRISCILLA DELGADO on 11/04/21 1557 Amoxicillin/Potassium Clav (Amox Tr-K Clv 875-125 mg Tab) 875 Mg-125 Mg Tablet, 1 EACH PO BID Prescribed by: CLAU DUONG on 03/07/22 1033 Atorvastatin Calcium (Atorvastatin Calcium) 40 Mg Tablet, 40 MG PO DAILY, (Reported) Entered as Reported by: PRISCILLA DELGADO on 03/06/22 1145 Baclofen (Baclofen) 10 Mg Tablet, 10 MG PO BID PRN for MUSCLE SPASMS, (Reported) Entered as Reported by: PRISCILLA DELGADO on 11/04/21 1557 Duloxetine HCl (Duloxetine HCl) 60 Mg Capsule.dr, 60 MG PO DAILY, (Reported) Entered as Reported by: PRISCILLA DELGADO on 12/22/20 1254 Furosemide (Furosemide) 40 Mg Tablet, 40 MG PO DAILY, (Reported) Entered as Reported by: PRISCILLA DELGADO on 03/06/22 1145 Gabapentin (Gabapentin) 400 Mg Capsule, 400 MG PO TID, (Reported) Entered as Reported by: PRISCILLA DELGADO on 11/04/21 1557 Ipratropium/Albuterol Sulfate (Iprat-Albut 0.5-3(2.5) mg/3 ml) 0.5 Mg-3 Mg (2.5 Mg Base)/3 Ml Ampul.neb, 3 ML IH BID PRN for SHORTNESS OF BREATH, (Reported) Entered as Reported by: PRISCILLA DELGADO on 03/06/22 1145 Multivits,Ca,Min/Iron/FA/Lycop (Centrum Ultra Men's Tablet) 1 Each Tablet, 1 EAC H PO DAILY, (Reported) Entered as Reported by: PRISCILLA DELGADO on 11/04/21 1557 Oxycodone HCl (Oxycodone HCl) 5 Mg Tablet, 5 MG PO Q6H PRN for PAIN-SEVERE (8- 10), (Reported) Entered as Reported by: PRISCILLA DELGADO on 11/04/21 1557 Potassium Chloride (Potassium Chloride) 20 Meq Tab.er.prt, 20 MEQ PO DAILY, (R eported) Entered as Reported by: PRISCILLA DELGADO on 03/06/22 1145 Rivaroxaban (Xarelto) 20 Mg Tablet, 20 MG PO DAILY, (Reported) Entered as Reported by: PRISCILLA DELGADO on 12/22/20 1254 Review of Systems Review of Systems Constitutional: No chills, No diaphoresis EENTM: No ear discharge, No ear pain Respiratory: No cough, No short of breath Cardiovascular: No chest pain, No palpitations Gastrointestinal: No abdominal pain, No nausea, No vomiting Genitourinary: No discharge, No dysuria Musculoskeletal: No back pain Skin: No pruritus, No rash Psychiatric/Neurological: Denies Depressed, Denies Headache All Other Systems Reviewed Negative Unless Noted: Yes Past Bwcibfh-Ypzoxk-Wmkpfv Hx Patient Social History Tobacco Use?: Yes Tobacco type used: Cigarettes Use of E-Cig and/or Vaping dev: No Substance use?: No Immunizations Up To Date Tetanus Booster (TDap): Less than 5yrs PED Vaccines UTD: No First/Initial COVID19 Vaccinat: 2020 Second COVID19 Vaccination Hemanth: 2020 Third COVID19 Vaccination Date: FEBRUARY Seasonal Allergies Seasonal Allergies: Yes (hayfever) Past Medical History Surgery/Hospitalization HX: AFIB, HTN, COPD, ANEMIA, CAD, CHRONIC RESPIRATORY FAILLURE WITH HYPPOXIA PNEUMONIA ortho heart cath stents, LUNG MASS, Surgeries: Yes (hernia repair, l ankle, l wrist, ) Orthopedic Respiratory: Yes Pneumonia, COPD Currently Using CPAP: No Currently Using BIPAP: No Cardiac: Yes Atrial Fibrillation, Deep Vein Thrombosis, Hypertension Neurological: Yes (neuralgia) Neuropathy Sexually Transmitted Disease: No HIV/AIDS: No Genitourinary: No Renal Failure Gastrointestinal: Yes Abdominal Hernia, Gastrointestinal Bleed Musculoskeletal: No Chronic Back Pain Endocrine: No HEENT: No (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 oz. kg; 15.86 BMI Method: General Appearance: Chronically ill, Moderate Distress, Thin Eyes: Bilateral Eye Normal Inspection, Bilateral Eye PERRL (2 mm bilateral reactive) HEENT: TMs Normal, Normal ENT Inspection; No Pharynx Normal, No Moist Mucous Membranes (Dry oral mucosa) Neck: Full Range of Motion, Normal Inspection Respiratory: Lungs Clear, Normal Breath Sounds, No Accessory Muscle Use, No Respiratory Distress Cardiovascular: Regular Rate, Rhythm, No Edema, Normal Peripheral Pulses Gastrointestinal: Normal Bowel Sounds, Non Tender, Soft Extremity: Normal Capillary Refill, Normal Inspection, No Calf Tenderness, No Pedal Edema Neurologic/Psychiatric: Alert, Other (Oriented to person place and time but not situation) Skin: Normal Color, Warm/Dry Procedures/Interventions Reason for Intubation: GCS 6 Date of ETT Placement: Apr 19, 2022 Time of ETT Placement: 14:00 Intubation Method: orotracheal Tube Size: 8 Medications: Etomidate (20 mg), Rocuronium (40 mg) Positive End Tide CO2: Yes Breath Sounds after Intubation: bilateral-equal Intubation Complications: no complications Post Intubation Xray: Yes Progress/Results/Core Measures Suspected Sepsis SIRS Temperature: Pulse: Respiratory Rate: Laboratory Tests 04/19/22 13:00: White Blood Count 6.6 Blood Pressure / Mean: Laboratory Tests 04/19/22 13:00: Creatinine 0.61, INR Comment 1.0, Platelet Count 467H, Total Bilirubin 0.2 Results/Orders Lab Results Laboratory Tests Test 04/19/22 13:00 04/19/22 13:59 04/19/22 14:10 Range/Units White Blood Count 6.6 4.3-11.0 10^3/uL Red Blood Count 3.36 L 4.30-5.52 10^6/uL Hemoglobin 10.4 L 13.3-17.7 g/dL Hematocrit 33 L 40-54 % Mean Corpuscular Volume 98 80-99 fL Mean Corpuscular Hemoglobin 31 25-34 pg Mean Corpuscular Hemoglobin Concent 32 32-36 g/dL Red Cell Distribution Width 17.1 H 10.0-14.5 % Platelet Count 467 H 130-400 10^3/uL Mean Platelet Volume 8.8 L 9.0-12.2 fL Immature Granulocyte % (Auto) 0 % Neutrophils (%) (Auto) 51 42-75 % Lymphocytes (%) (Auto) 33 12-44 % Monocytes (%) (Auto) 8 0-12 % Eosinophils (%) (Auto) 6 0-10 % Basophils (%) (Auto) 1 0-10 % Neutrophils # (Auto) 3.4 1.8-7.8 10^3/uL Lymphocytes # (Auto) 2.2 1.0-4.0 10^3/uL Monocytes # (Auto) 0.6 0.0-1.0 10^3/uL Eosinophils # (Auto) 0.4 H 0.0-0.3 10^3/uL Basophils # (Auto) 0.1 0.0-0.1 10^3/uL Immature Granulocyte # (Auto) 0.0 0.0-0.1 10^3/uL Prothrombin Time 14.0 12.2-14.7 SEC INR Comment 1.0 0.8-1.4 Activated Partial Thromboplast Time 34 24-35 SEC Sodium Level 139 135-145 MMOL/L Potassium Level 4.2 3.6-5.0 MMOL/L Chloride Level 104 98-107 MMOL/L Carbon Dioxide Level 30 21-32 MMOL/L Anion Gap 5 5-14 MMOL/L Blood Urea Nitrogen 6 L 7-18 MG/DL Creatinine 0.61 0.60-1.30 MG/DL Estimat Glomerular Filtration Rate 111 BUN/Creatinine Ratio 10 Glucose Level 78 70-105 MG/DL Calcium Level 8.7 8.5-10.1 MG/DL Corrected Calcium 9.0 8.5-10.1 MG/DL Magnesium Level 2.2 1.6-2.4 MG/DL Total Bilirubin 0.2 0.1-1.0 MG/DL Aspartate Amino Transf (AST/SGOT) 21 5-34 U/L Alanine Aminotransferase (ALT/SGPT) 24 0-55 U/L Alkaline Phosphatase 79 40-136 U/L Myoglobin 50.5 10.0-92.0 NG/ML Troponin I < 0.028 <0.028 NG/ML Total Protein 6.4 6.4-8.2 GM/DL Albumin 3.6 3.2-4.5 GM/DL Salicylates Level < 5.0 L 5.0-20.0 MG/DL Acetaminophen Level < 10 L 10-30 UG/ML Serum Alcohol < 10 <10 MG/DL Urine Color YELLOW Urine Clarity CLEAR Urine pH 7.0 5-9 Urine Specific [place] 1.010 L 1.016-1.022 Urine Protein NEGATIVE NEGATIVE Urine Glucose (UA) NEGATIVE NEGATIVE Urine Ketones NEGATIVE NEGATIVE Urine Nitrite NEGATIVE NEGATIVE Urine Bilirubin NEGATIVE NEGATIVE Urine Urobilinogen 0.2 < = 1.0 MG/DL Urine Leukocyte Esterase TRACE H NEGATIVE Urine RBC (Auto) NEGATIVE NEGATIVE Urine RBC NONE /HPF Urine WBC 0-2 /HPF Urine Squamous Epithelial Cells 5-10 /HPF Urine Crystals NONE /LPF Urine Bacteria TRACE /HPF Urine Casts NONE /LPF Urine Mucus NEGATIVE /LPF Urine Culture Indicated NO Urine Opiates Screen NEGATIVE NEGATIVE Urine Oxycodone Screen POSITIVE H NEGATIVE Urine Methadone Screen NEGATIVE NEGATIVE Urine Propoxyphene Screen NEGATIVE NEGATIVE Urine Barbiturates Screen NEGATIVE NEGATIVE Ur Tricyclic Antidepressants Screen NEGATIVE NEGATIVE Urine Phencyclidine Screen NEGATIVE NEGATIVE Urine Amphetamines Screen NEGATIVE NEGATIVE Urine Methamphetamines Screen NEGATIVE NEGATIVE Urine Benzodiazepines Screen POSITIVE H NEGATIVE Urine Cocaine Screen NEGATIVE NEGATIVE Urine Cannabinoids Screen POSITIVE H NEGATIVE My Orders Orders - LANA CHARLES Ekg Tracing (04/19/22 13:02) Continuous Ekg Monitoring (04/19/22 13:02) Cbc With Automated Diff (04/19/22 13:02) Magnesium (04/19/22 13:02) Chest 1 View, Ap/Pa Only (04/19/22 13:02) Comprehensive Metabolic Panel (04/19/22 13:02) Myoglobin Serum (04/19/22 13:02) Protime With Inr (04/19/22 13:02) Partial Thromboplastin Time (04/19/22 13:02) O2 (04/19/22 13:02) Lipid Panel (04/20/22 06:00) Ed Iv/Invasive Line Start (04/19/22 13:02) Troponin I [place] (04/19/22 13:02) Aspirin Chewable Tablet (Baby Aspirin Ch (04/19/22 13:15) Ed Iv/Invasive Line Start (04/19/22 13:02) Lactated Ringers (Lr 1000 Ml Iv Solution (04/19/22 13:15) Ua Culture If Indicated (04/19/22 13:04) Alcohol (04/19/22 13:04) Salicylate (04/19/22 13:04) Acetaminophen (04/19/22 13:04) Ct Head/Cervical Spine Wo (04/19/22 13:11) Naloxone Injection (Narcan Injection) (04/19/22 13:30) Propofol Drip (Icu) (Diprivan Drip (Icu) (04/19/22 14:03) Drug Screen Stat (Urine) (04/19/22 14:10) Propofol Drip (Icu) (Diprivan Drip (Icu) (04/19/22 14:45) Chest 1 View, Ap/Pa Only (04/19/22 14:37) Ed Admission (Communication) (04/19/22 15:13) Medications Given in ED Current Medications Medications Dose Ordered Sig/David Route Start Time Stop Time Status Last Admin Dose Admin Naloxone HCl 0.4 mg ONCE ONCE IV 04/19/22 13:30 04/19/22 13:31 DC 04/19/22 13:32 0.4 MG Propofol 100 ml @ 8.16 mls/hr [id number] ONCE IV 04/19/22 14:45 04/20/22 03:00 04/19/22 14:07 8.16 MLS/HR Vital Signs/I&O 04/19/22 04/19/22 04/19/22 12:50 14:07 14:07 Temp 36.1 Pulse 64 71 56 Resp 22 16 B/P (MAP) 103/68 (80) 137/99 Pulse Ox 96 100 FiO2 50 Capillary Refill : Progress Note #1: Time: 13:09 Progress Note Unknown if he fell. We will get a CT of his head and C-spine, chest x-ray, give him some aspirin to chew and swallow. His blood pressure sufficiently low that we would not give nitroglycerin. I he has had enough opiates for the time being as we suspect he has had a overdose of opiates whether intentional or not remains to be discovered. Progress Note #2: Time: 14:43 Progress Note Patient had a end-tidal dropped to 6 cm water pressure and his GCS was 6. He was not successfully maintaining a good airway so we put a [id number] on him to help and elected to intubate him. We used propofol for sedation afterwards. We will repeat a chest x-ray and do the CT on the way up to the ICU ECG Initial ECG Impression Date: Apr 19, 2022 Initial ECG Impression Time: 13:11 Initial ECG Rate: 56 Initial ECG Rhythm: Normal Sinus Initial ECG Intervals: Normal Initial ECG Impression: Normal Comment Normal sinus rhythm without clinically relevant ST elevation or depression Diagnostic Imaging Diagonstic Imaging: Xray Plain Films/CT/US/NM/MRI: chest Comments Stable chest x-ray. [facility] [place] [place] NAME: ARSENIO JOLLY [facility] REC#: [id number] PT STATUS: ADM IN : 1960 PHYSICIAN: LANA CHARLES MD ADMIT DATE: 04/19/22/ICU Signed Date of Exam:04/19/22 CHEST 1 VIEW, AP/PA ONLY HISTORY: Chest pain. COMPARISON: 03/06/2022. TECHNIQUE: Frontal view of the chest. FINDINGS: Lung volumes are large and there is flattening of the diaphragm, consistent with chronic obstructive disease. There is scarring in the left midlung. There is right perihilar opacity which appears improved compared to the prior study. This could represent residual scarring or infiltrate. There is no pleural effusion or pneumothorax. The cardiac silhouette is normal in size. IMPRESSION: 1. Right perihilar opacity, may represent residual improving infiltrate or scarring. 2. Findings of chronic obstructive disease. Dictated by: Dictated on workstation # [id number] Dict: 04/19/22 1525 Trans: 04/19/22 1717 [id number] Interpreted by: HERMELINDA VARELA MD Electronically signed by: HERMELINDA VARELA MD 04/19/221716 Reviewed: Reviewed by Me Diagonstic Imaging: CT Plain Films/CT/US/NM/MRI: c-spine, head Comments [facility] [place], [place] NAME: ARSENIO JOLLY [facility] REC#: [id number] PT STATUS: ADM IN : 1960 PHYSICIAN: LANA CHARLES MD ADMIT DATE: 04/19/22/ICU Signed Date of Exam:04/19/22 CT HEAD/CERVICAL SPINE WO PROCEDURE: CT head and CT cervical spine without contrast. TECHNIQUE: Multiple contiguous axial images were obtained through the brain and cervical spine without the use of intravenous contrast. Sagittal and coronal reformations through the cervical spine were then performed. Auto Exposure Controls were utilized during the CT exam to meet ALARA standards for radiation dose reduction. . INDICATION: Trauma with head and neck injuries. CT HEAD: COMPARISON: 11/09/2021 Ventricles and sulci remain prominent. Encephalomalacia is again seen within the left frontal region with lesser involvement of the medial anterior right frontal lobe. There is no evidence of intracranial hemorrhage. There is no abnormal mass effect or shift of midline structures. Orogastric tube and endotracheal tube are in place. No acute fracture is identified. IMPRESSION: Stable areas of frontal encephalomalacia, greater on the left without CT evidence of acute intracranial abnormality. CT CERVICAL SPINE: Cervical spinal curvature and alignment are stable and unremarkable. Disc space narrowing and endplate spurring is again seen to the mid and lower cervical region however there is no evidence of an acute fracture or subluxation. There is diffuse degenerative facet arthropathy. No paraspinous hematoma is identified. Vertebral soft tissue evaluation is limited due to orogastric tube and endotracheal tube. IMPRESSION: Cervical spondylosis without evidence of acute cervical spinal abnormality or significant change compared to previous study. Dictated by: Dictated on workstation # [id number] Dict: 04/19/22 1627 Trans: 04/19/22 1711 [id number] [id number] Interpreted by: AUGUSTO LOPEZ MD Electronically signed by: AUGUSTO LOPEZ MD 04/19/221710 Reviewed: Reviewed by Me Diagonstic Imaging: Xray Plain Films/CT/US/NM/MRI: chest Comments [facility] [place], [place] NAME: ARSENIO JOLLY [facility] REC#: [id number] PT STATUS: REG ER : 1960 PHYSICIAN: LANA CHARLES MD ADMIT DATE: 04/19/22/ER Draft Date of Exam:04/19/22 CHEST 1 VIEW, AP/PA ONLY Indication: Intubation. Time of Exam: 2:34 PM Correlation is made with prior chest earlier same day. Since prior study an endotracheal tube has been placed with its tip well above the semaj at the level of the clavicular heads. NG tube passes below the diaphragm. There are severe changes of COPD. Airspace density in the right perihilar region persists. There are areas of linear atelectasis or scarring. No effusion or pneumothorax is seen. Impression: Satisfactory endotracheal tube placement. Dictated on workstation # [id number] Dict: 04/19/22 1514 Trans: 04/19/22 1515 [id number] [id number] Interpreted by: CLARI WHYTE MD Electronically signed by: Reviewed: Reviewed by Me Departure Communication (Admissions) Time/Spoke to Admitting Phy: 14:[address] Duong and he agrees to admit the patient and put in queued orders. Impression Primary Impression: Overdose of opiate or related narcotic Qualified Codes: T40.604A - Poisoning by unspecified narcotics, undetermined, initial encounter Additional Impression: Acute respiratory failure Qualified Codes: J96.00 - Acute respiratory failure, unspecified whether with hypoxia or hypercapnia Disposition: ADMITTED INPATIENT Condition: Stable Admissions Decision to Admit Reason: Admit from ER (General) Decision to Admit/Date: Apr 19, 2022 Time/Decision to Admit Time: 14:44 Departure-Patient Inst. Referrals: JAY BAUTISTA MD (PCP/Family) Primary Care Physician Patient Instructions: ALCOHOL AND SUBSTANCE ABUSE LANA CHARLES Apr 19, 2022 13:10
[2022-04-19] MEDS ORDERED: LACTATED RINGERS 1,000 ML IV ONE (13:15)
[2022-04-19] MEDS: ASPIRIN 81 MG CHEW (CHILDREN'S ASA) PO ONE ×2 (13:28→15:51)
[2022-04-19] MEDS ORDERED: NALOXONE 0.4 MG/ML 1 ML (NARCAN) VIAL IV ONE (13:30)
[2022-04-19 13:42] LABS: BASOPHILS # (AUTO) 0.1 10^3/uL (0.0-0.1); BASOPHILS % (AUTO) 1 % (0-10); EOSINOPHILS # (AUTO) 0.4 10^3/uL (0.0-0.3); EOSINOPHILS % (AUTO) 6 % (0-10); HEMATOCRIT 33 % (40-54); HEMOGLOBIN 10.4 g/dL (13.3-17.7); LYMPHOCYTES # (AUTO) 2.2 10^3/uL (1.0-4.0); LYMPHOCYTES % (AUTO) 33 % (12-44); MEAN CORPUSCULAR HEMOGLOBIN 31 pg (25-34); MEAN CORPUSCULAR HGB CONC 32 g/dL (32-36); MEAN CORPUSCULAR VOLUME 98 fL (80-99); MEAN PLATELET VOLUME 8.8 fL (9.0-12.2); MONOCYTES # (AUTO) 0.6 10^3/uL (0.0-1.0); MONOCYTES % (AUTO) 8 % (0-12); NEUTROPHILS # (AUTO) 3.4 10^3/uL (1.8-7.8); NEUTROPHILS % (AUTO) 51 % (42-75); PLATELET COUNT 467 10^3/uL (130-400); WHITE BLOOD COUNT 6.6 10^3/uL (4.3-11.0)
[2022-04-19 13:55] LABS: ALBUMIN 3.6 GM/DL (3.2-4.5); POTASSIUM 4.2 MMOL/L (3.6-5.0)
[2022-04-19 13:56] LABS: CALCIUM 8.7 MG/DL (8.5-10.1)
[2022-04-19 13:57] LABS: TOTAL PROTEIN 6.4 GM/DL (6.4-8.2)
[2022-04-19 13:59] LABS: BILIRUBIN,TOTAL 0.2 MG/DL (0.1-1.0)
[2022-04-19 14:01] LABS: CREATININE SERUM 0.61 MG/DL (0.60-1.30)
[2022-04-19 14:02] LABS: SALICYLATE < 5.0 MG/DL (5.0-20.0)
[2022-04-19 14:03] LABS: ACETAMINOPHEN < 10 UG/ML (10-30); MAGNESIUM 2.2 MG/DL (1.6-2.4)
[2022-04-19] MEDS: PROPOFOL DRIP (ICU) 100 ML IV ONE (14:07)
[2022-04-19 14:08] LABS: BILIRUBIN,URINE NEGATIVE (NEGATIVE); CLARITY,URINE CLEAR; COLOR,URINE YELLOW; GLUCOSE, URINE (UA) NEGATIVE (NEGATIVE); KETONES,URINE NEGATIVE (NEGATIVE); LEUKOCYTE ESTERASE ,URINE TRACE (NEGATIVE); NITRITE,URINE NEGATIVE (NEGATIVE); PROTEIN,URINE NEGATIVE (NEGATIVE)
[2022-04-19 14:17] LABS: AMPHETAMINE SCREEN, URINE NEGATIVE (NEGATIVE); BARBITURATE SCREEN URINE NEGATIVE (NEGATIVE); BENZODIAZEPINES SCREEN URINE POSITIVE (NEGATIVE); CANNABINOID SCREEN, URINE POSITIVE (NEGATIVE); COCAINE SCREEN URINE NEGATIVE (NEGATIVE); METHADONE STAT NEGATIVE (NEGATIVE); OPIATE SCREEN URINE NEGATIVE (NEGATIVE); OXYCODONE STAT POSITIVE (NEGATIVE); PROPOXYPHENE STAT NEGATIVE (NEGATIVE); TRICYCLIC ANTIDEPRESSANTS SCRE NEGATIVE (NEGATIVE)
[2022-04-19 14:33] LABS: BACTERIA,URINE TRACE /HPF; WBC,URINE 0-2 /HPF
[2022-04-19] MEDS ORDERED: PROPOFOL DRIP (ICU) 100 ML IV ONE (14:45)
[2022-04-19] MEDS ORDERED: ENOXAPARIN 40 MG/0.4 ML (LOVENOX) SYR SC SCH (15:15)
--- NOTE | 2022-04-19 15:16 | Tele-ICU Progress Note ---
Subjective Date Seen by a Provider: Apr 19, 2022 Time Seen by a Provider: 14:30 Subjective/Events-last exam This virtual visit was conducted using real time audio/video. Thank you for asking us to see this patient for respiratory insufficiency due to oxycodone OD w underlying COPD Recent events: Intubated in ER. PMH:COPD w chronic resp. fail., CAD/stents, HTN, HL, DVT, Hx of Afib, possible CVA SH: smoking history: current FH: Non-contributory ROS: limited by patient's clinical condition. PE: VSS. O2 sat 96% on 50% HEENT: No obvious masses, adenopathy or JVD. Chest: clear to auscultation. Diminished. CV: RRR S1 S2 No murmur or added sounds. Abd: Non-tender. Bowel sounds Y. : Unremarkable. [place] Y. FRAME ALIGNER/psychiatric: Grossly intact. No obvious focal findings. Extremities: No edema. Capillary refill < 3 seconds. Skin: unremarkable. Results: Decreased Hb 10.4. BG: Pending. CXR: ETT in good position. Lung hugo very hyperinflated.. Available chart/ vitals / labs / images reviewed. Video assessment done using teleICU camera, rest of exam as per RN. A/P: Respiratory insufficiency: Continue present management with vent., Propofol. Duonebs added. Monitor for increasing oxygenation needs. Critical Care: critically ill patient. Cont. ASA, PPI and Noemy. added. Discussed with ROHAN Blake. Asked RN to reach out to eICU if any questions or concerns later. Time spent with patient/coordination of care with other health professionals (mins): 35 Sepsis Event Evaluation Height, Weight, BMI Height: '" Weight: lbs. oz. kg; 24.00 BMI Method: Exam Exam Patient acknowledged, consented, and participated in this virtual visit which was conducted using real time audio/video Vital Signs Date Time Temp Pulse Resp B/P (MAP) Pulse Ox O2 Delivery O2 Flow Rate FiO2 04/19/22 14:07 56 16 100 50 04/19/22 14:07 56 146/89 04/19/22 12:50 36.1 64 22 103/68 (80) 96 Height & Weight Height: '" Weight: lbs. oz. kg; 24.00 BMI Method: General Appearance: No Apparent Distress Capillary Refill: Less Than 3 Seconds Peripheral Pulses: 1+ Dorsalis Pedis (R), 1+ Left Dors-Pedis (L) (See free franky t.) Results Lab Laboratory Tests 04/19/22 13:00 Assessment/Plan Assessment/Plan See free text. Critical Care: Ventilator Management MICHELE SUMNER MD Apr 19, 2022 15:16
--- NOTE | 2022-04-19 15:16 | Diagnostic Imaging Report ---
Indication: Intubation. Time of Exam: 2:34 PM Correlation is made with prior chest earlier same day. Since prior study an endotracheal tube has been placed with its tip well above the semaj at the level of the clavicular heads. NG tube passes below the diaphragm. There are severe changes of COPD. Airspace density in the right perihilar region persists. There are areas of linear atelectasis or scarring. No effusion or pneumothorax is seen. Impression: Satisfactory endotracheal tube placement. Dictated by: Dictated on workstation # [id number]
--- NOTE | 2022-04-19 15:30 | Diagnostic Imaging Report ---
HISTORY: Chest pain. COMPARISON: 03/06/2022. TECHNIQUE: Frontal view of the chest. FINDINGS: Lung volumes are large and there is flattening of the diaphragm, consistent with chronic obstructive disease. There is scarring in the left midlung. There is right perihilar opacity which appears improved compared to the prior study. This could represent residual scarring or infiltrate. There is no pleural effusion or pneumothorax. The cardiac silhouette is normal in size. IMPRESSION: 1. Right perihilar opacity, may represent residual improving infiltrate or scarring. 2. Findings of chronic obstructive disease. Dictated by: Dictated on workstation # [id number]
[2022-04-19] MEDS ORDERED: MELATONIN 3 MG TABLET PO PRN (15:45)
[2022-04-19] MEDS ORDERED: ACETAMINOPHEN 325 MG TABLET PO PRN (15:45)
[2022-04-19] MEDS ORDERED: ANTACID SUSP 30 ML UDC (MYLANTA) PO PRN (15:45)
[2022-04-19] MEDS ORDERED: ONDANSETRON 4 MG/2 ML (SDV) Z0FRAN IV PRN (15:45)
[2022-04-19] MEDS ORDERED: diphenhydrAMINE 25 MG TAB (BENADRYL) PO PRN (15:45)
[2022-04-19] MEDS ORDERED: CALCIUM CARBONATE 500 MG (TUMS) TAB.CHEW PO PRN (15:45)
[2022-04-19] MEDS ORDERED: polyethylene glycoL POWDER 17 GM (MIRALAX) PACK PO PRN (15:45)
[2022-04-19] MEDS ORDERED: LACTULOSE SYRUP 10GM/15ML (ENULOSE) 30ML UDC PO PRN (15:45)
[2022-04-19] MEDS ORDERED: BISACODYL 10 MG SUPP (DULCOLAX) PR PRN (15:45)
[2022-04-19] MEDS ORDERED: ONDANSETRON 4 MG (ZOFRAN) ORAL DISSOLVE TAB PO PRN (15:45)
[2022-04-19] MEDS ORDERED: MILK OF MAGNESIA 400 MG/5 ML 30 ML UDC PO PRN (15:45)
[2022-04-19] MEDS ORDERED: diphenhydrAMINE 50 MG/ML INJ (BENADRYL) IVP PRN (15:45)
[2022-04-19] MEDS ORDERED: NS IV 500 ML 500 ML IV PRN (16:00)
[2022-04-19] MEDS ORDERED: MIDAZOLAM 5 MG/5 ML (VERSED) VIAL IVP ONE (16:00)
[2022-04-19 16:32] VITALS: BP 118/89
--- NOTE | 2022-04-19 16:38 | Diagnostic Imaging Report ---
PROCEDURE: CT head and CT cervical spine without contrast. TECHNIQUE: Multiple contiguous axial images were obtained through the brain and cervical spine without the use of intravenous contrast. Sagittal and coronal reformations through the cervical spine were then performed. Auto Exposure Controls were utilized during the CT exam to meet ALARA standards for radiation dose reduction. . INDICATION: Trauma with head and neck injuries. CT HEAD: COMPARISON: 11/09/2021 Ventricles and sulci remain prominent. Encephalomalacia is again seen within the left frontal region with lesser involvement of the medial anterior right frontal lobe. There is no evidence of intracranial hemorrhage. There is no abnormal mass effect or shift of midline structures. Orogastric tube and endotracheal tube are in place. No acute fracture is identified. IMPRESSION: Stable areas of frontal encephalomalacia, greater on the left without CT evidence of acute intracranial abnormality. CT CERVICAL SPINE: Cervical spinal curvature and alignment are stable and unremarkable. Disc space narrowing and endplate spurring is again seen to the mid and lower cervical region however there is no evidence of an acute fracture or subluxation. There is diffuse degenerative facet arthropathy. No paraspinous hematoma is identified. Vertebral soft tissue evaluation is limited due to orogastric tube and endotracheal tube. IMPRESSION: Cervical spondylosis without evidence of acute cervical spinal abnormality or significant change compared to previous study. Dictated by: Dictated on workstation # [id number]
[2022-04-19] MEDS: RT-ALBUTEROL/IPRATROPIUM 3 ML (DUONEB) VIAL INH SCH ×2 (18:21→21:23)
[2022-04-19 18:22] VITALS: BP 97/70
[2022-04-19] MEDS ORDERED: ETOMIDATE IV SOLN 20 MG/10 ML VIAL IV ONE (18:29)
[2022-04-19] MEDS ORDERED: ROCURONIUM 50 MG/5 ML (ZEMURON) VIAL IV ONE (18:29)
[2022-04-19] MEDS: inSUlin ASPART (NovoLOG) 1 UNIT/0.01 ML (CHARGE PER UNIT) SC SCH (18:54)
--- NOTE | 2022-04-19 19:19 | History & Physical-Hospitalist ---
History of Present Illness HPI/Chief Complaint Moshe Soto is a 61 year old male with PMH HTN ,AFib, CAD, PVD, tobacco abuse, COPD, who presented with altered mental status. He was found unresponsive by his brother. He was given Narcan. His mental status improved. He denied taking any extra medications or illicit drugs. He denied intent to harm himself. He became more somnolent and required intubation in the emergency room. He was admitted and transferred to the ICU. Upon my exam, he is intubated and sedated with no family at bedside. Source: RN/MD Exam Limitations: clinical condition Date Seen 04/19/22 Time Seen by a Provider: 18:15 Attending Physician Callum Davenport MD PCP Admitting Physician: Clau Oliveira MD Attending Physician: Clau Oliveira MD Referring Physician Date of Admission Apr 19, 2022 at 15:15 Home Medications & Allergies Home Medications Reviewed patient Home Medication Reconciliation performed by pharmacy medication reconciliations installer technician and/or nursing. Patients Allergies have been reviewed. Allergies Allergies Coded Allergies No Known Drug Allergies ([id number]) Past Qgbsfow-Zbhoid-Xyvcfm Hx Patient Social History Tobacco Use?: Yes Tobacco type used: Cigarettes Use of E-Cig and/or Vaping dev: No Substance use?: No Alcohol Use?: No Pt feels they are or have been: No Immunizations Up To Date Date of Influenza Vaccine: Jun 17, 2022 First/Initial COVID19 Vaccinat: 2020 Second COVID19 Vaccination Hemanth: 2020 Tetanus Booster (TDap): Unknown Hepatitis A: No Hepatitis B: No PED Vaccines UTD: No Seasonal Allergies Seasonal Allergies: Yes (hayfever) Current Status Advance Directives: No Communicates: Verbally Primary Language: Ukrainian Preferred Spoken Language: Ukrainian Is interpretation needed?: No Implanted or Applied Medical D: Stents Past Medical History Surgeries: Orthopedic Pneumonia, COPD Currently Using CPAP: No Currently Using BIPAP: No Atrial Fibrillation, Deep Vein Thrombosis, Hypertension Neuropathy Sexually Transmitted Disease: No HIV/AIDS: No Renal Failure Abdominal Hernia, Gastrointestinal Bleed Chronic Back Pain Tinnitis Loss of Vision: Denies Hearing Impairment: Deaf Recent Skin Changes Blood Disorders: No Adverse Reaction/Blood Tranf: No Family Medical History Alcoholism 19 FATHER 19 MOTHER Arthritis 19 FATHER 19 MOTHER No Pertinent Family Hx, Other Conditions/Hx Review of Systems Constitutional: see HPI Physical Exam Physical Exam Vital Signs Vital Signs - First Documented 04/19/22 04/19/22 04/19/22 12:50 14:07 16:15 Temp 36.1 Pulse 64 Resp 22 B/P (MAP) 103/68 (80) Pulse Ox 96 O2 Delivery Mechanical Ventilator O2 Flow Rate 100.00 FiO2 50 Capillary Refill : Less Than 3 Seconds Height, Weight, BMI Height: '" Weight: lbs. oz. kg; 20.55 BMI Method: General Appearance: No Apparent Distress, Thin, Other (intubated and sedated) HEENT: Other (endotracheal tube in place) Respiratory: Lungs Clear, No Respiratory Distress Cardiovascular: Regular Rate, Rhythm, No Murmur Gastrointestinal: Normal Bowel Sounds, Soft Extremity: Normal Inspection, No Pedal Edema, Other (previous right toe amputations) Neurologic/Psychiatric: Other (sedated) Skin: Normal Color, Warm/Dry Results Results/Procedures Labs Laboratory Tests 04/19/22 13:00 04/20/22 04:57 Patient resulted labs reviewed. Imaging: Reviewed Imaging Report Assessment/Plan Admission Diagnosis Polysubstance overdose Admission Status: Inpatient Order (span 2 midnights) Reason for Inpatient Admission: Respiratory failure Assessment and Plan Polysubstance overdose Acute respiratory failure Endotracheally intubated Required Narcan x2 Intubated for airway protection TeleICU consutled Wean as able HTN HLD CAD PAD AFib COPD Diagnosis/Problems Diagnosis/Problems (1) Acute respiratory failure Qualifiers: Respiratory failure complication: unspecified whether with hypoxia or hypercapnia Qualified Codes: J96.00 - Acute respiratory failure, unspecified whether with hypoxia or hypercapnia (2) Endotracheally intubated (3) Polysubstance overdose (4) COPD (chronic obstructive pulmonary disease) Status: Chronic (5) CAD (coronary artery disease) Status: Chronic (6) Paroxysmal atrial fibrillation Status: Chronic (7) PVD (peripheral vascular disease) Status: Chronic (8) HTN (hypertension) Status: Chronic Clinical Quality Measures AMI/AHF: ASA po Prior to arrival: CLAU Young MD Apr 19, 2022 19:19
[2022-04-19] MEDS: DOCUSATE SODIUM 100 MG (COLACE) CAP PO SCH (19:50)
[2022-04-19] MEDS: SENNOSIDES 8.6 MG (SENOKOT) TAB PO SCH (19:55)
[2022-04-19 21:23] VITALS: BP 113/76
[2022-04-19] MEDS: PROPOFOL DRIP (ICU) 100 ML IV SCH (21:58)
[2022-04-20] MEDS: inSUlin ASPART (NovoLOG) 1 UNIT/0.01 ML (CHARGE PER UNIT) SC SCH ×4 (02:06→18:00)
[2022-04-20] MEDS: RT-ALBUTEROL/IPRATROPIUM 3 ML (DUONEB) VIAL INH SCH ×6 (02:43→22:29)
[2022-04-20 02:44] VITALS: BP 133/80
[2022-04-20] MEDS: PROPOFOL DRIP (ICU) 100 ML IV SCH ×2 (04:04→09:29)
[2022-04-20 05:21] LABS: ALBUMIN 3.2 GM/DL (3.2-4.5)
[2022-04-20 05:22] LABS: POTASSIUM 3.8 MMOL/L (3.6-5.0)
[2022-04-20 05:23] LABS: CALCIUM 8.5 MG/DL (8.5-10.1)
[2022-04-20 05:24] LABS: TOTAL PROTEIN 5.8 GM/DL (6.4-8.2)
[2022-04-20 05:26] LABS: BILIRUBIN,TOTAL 0.1 MG/DL (0.1-1.0); TRIGLYCERIDES 99 MG/DL (<150); VLDL CHOLESTEROL 20 MG/DL (5-40)
[2022-04-20 05:28] LABS: CREATININE SERUM 0.62 MG/DL (0.60-1.30)
[2022-04-20 05:31] LABS: CHOLESTEROL 86 MG/DL (< 200); MAGNESIUM 2.2 MG/DL (1.6-2.4)
[2022-04-20 05:32] LABS: HDL CHOLESTEROL 35 MG/DL (40-60)
[2022-04-20] MEDS: KCL 20 MEQ TAB (K-DUR) PO SCH (05:34)
[2022-04-20] MEDS: MAGNESIUM 1 GM/100 ML IVPB 100 ML IV SCH (05:34)
[2022-04-20] MEDS: POTASSIUM CL 10MEQ/50ML IVPB 50 ML IV SCH (05:34)
[2022-04-20 05:46] LABS: BASOPHILS # (AUTO) 0.1 10^3/uL (0.0-0.1); BASOPHILS % (AUTO) 1 % (0-10); EOSINOPHILS # (AUTO) 0.3 10^3/uL (0.0-0.3); EOSINOPHILS % (AUTO) 3 % (0-10); HEMATOCRIT 32 % (40-54); LYMPHOCYTES % (AUTO) 24 % (12-44); MEAN CORPUSCULAR HEMOGLOBIN 31 pg (25-34); MEAN CORPUSCULAR HGB CONC 32 g/dL (32-36); MEAN CORPUSCULAR VOLUME 98 fL (80-99); MEAN PLATELET VOLUME 9.4 fL (9.0-12.2); MONOCYTES # (AUTO) 0.6 10^3/uL (0.0-1.0); MONOCYTES % (AUTO) 7 % (0-12); NEUTROPHILS # (AUTO) 5.5 10^3/uL (1.8-7.8); NEUTROPHILS % (AUTO) 65 % (42-75); PLATELET COUNT 473 10^3/uL (130-400); WHITE BLOOD COUNT 8.4 10^3/uL (4.3-11.0)
--- NOTE | 2022-04-20 06:47 | Occ Therapy Progress Note ---
Therapy Progress Note OT orders received. OT to monitor pt's status then will initiate tx when pt is medically stable and able to actively participate in skilled therapy. CANDI MITCHELL Apr 20, 2022 06:47
[2022-04-20 07:28] VITALS: BP 122/78
--- NOTE | 2022-04-20 07:38 | Diagnostic Imaging Report ---
CHEST 1 VIEW, AP/PA ONLY Indication: Intubation Comparison: 04/19/2022 Findings: Stable ET and enteric tubes. Unchanged hyper inflated lungs with multifocal areas of architectural distortion from scarring. No new consolidations. No pleural effusion or pneumothorax. Stable cardiac silhouette. Impression: 1. Stable support devices. 2. No adverse development. Dictated by: Dictated on workstation # [id number]
[2022-04-20] MEDS: DOCUSATE SODIUM 100 MG (COLACE) CAP PO SCH ×2 (07:54→19:33)
--- NOTE | 2022-04-20 08:12 | Physical Therapy Progress Note ---
Therapy Progress Note Order for PT evaluation received. Patient is currently intubated and sedated. Will monitor patient and start when appropriate and patient can participate. MARKO REID PT Apr 20, 2022 08:12
[2022-04-20] MEDS: PANTOPRAZOLE 40 MG (PROTONIX) VIAL IV SCH (08:36)
[2022-04-20] MEDS: SENNOSIDES 8.6 MG (SENOKOT) TAB PO SCH ×2 (08:36→20:36)
[2022-04-20] MEDS ORDERED: PANTOPRAZOLE 40 MG (PROTONIX) VIAL IV SCH (09:00)
[2022-04-20] MEDS ORDERED: DexMEDEtomidine 250 ML DRIP 250 ML IV SCH (09:15)
--- NOTE | 2022-04-20 09:20 | Tele-ICU Progress Note ---
Subjective Date Seen by a Provider: Apr 20, 2022 Time Seen by a Provider: 08:05 Subjective/Events-last exam This virtual visit was conducted using real time audio/video. Thank you for asking us to see this patient for respiratory insufficiency due to oxycodone OD w underlying COPD Recent events: Intubated in ER 04/19. PMH:COPD w chronic resp. fail., CAD/stents, HTN, HL, DVT, Hx of Afib, possible CVA SH: smoking history: current FH: Non-contributory ROS: limited by patient's clinical condition. PE: VSS. O2 sat 96% on 50% HEENT: No obvious masses, adenopathy or JVD. Chest: clear to auscultation. Very diminished. CV: RRR S1 S2 No murmur or added sounds. Abd: Non-tender. Bowel sounds Y. : Unremarkable. Jackson Y. GLOVE TURNER/psychiatric: Grossly intact. No obvious focal findings. Extremities: No edema. Capillary refill < 3 seconds. Skin: unremarkable. Results: Decreased Hb 10.4. BG: Pending. CXR: ETT in good position. Lung hugo very hyperinflated.. Available chart/ vitals / labs / images reviewed. Video assessment done using teleICU camera, rest of exam as per RN. A/P: Respiratory insufficiency: Continue present management with vent., Propofol, Duonebs. Precedex added added. Discussed w RT: SBT in AM 8/5 . Monitor for increasing oxygenation needs. Critical Care: critically ill patient. Cont. ASA, PPI and Noemy. Precedex added. Discussed with ROHAN Mccormick. Asked RN to reach out to eICU if any questions or concerns later. Time spent with patient/coordination of care with other health professionals (mins): 35 Sepsis Event Evaluation Height, Weight, BMI Height: '" Weight: lbs. oz. kg; 20.55 BMI Method: Exam Exam Patient acknowledged, consented, and participated in this virtual visit which was conducted using real time audio/video Vital Signs Date Time Temp Pulse Resp B/P (MAP) Pulse Ox O2 Delivery O2 Flow Rate FiO2 04/20/22 09:00 92 20 127/76 98 Mechanical Ventilator 30.00 04/20/22 08:04 85 110/70 04/20/22 08:00 93 21 121/77 100 Mechanical Ventilator 30.00 04/20/22 08:00 36.6 04/20/22 07:28 88 17 100 30 04/20/22 07:00 76 16 117/76 100 Mechanical Ventilator 30.00 04/20/22 07:00 93 04/20/22 06:00 82 16 104/73 100 Mechanical Ventilator 30.00 04/20/22 05:00 91 28 85 04/20/22 05:00 89 15 115/79 100 Mechanical Ventilator 30.00 04/20/22 04:04 99 119/81 04/20/22 04:00 85 17 113/75 100 Mechanical Ventilator 30.00 04/20/22 04:00 Mechanical Ventilator 30 04/20/22 03:44 99 119/81 04/20/22 03:00 87 20 116/37 100 Mechanical Ventilator 30.00 04/20/22 02:55 82 133/80 04/20/22 02:44 80 21 97 30 04/20/22 02:00 71 18 133/83 100 Mechanical Ventilator 30.00 04/20/22 01:58 57 113/76 04/20/22 01:00 64 15 114/75 100 Mechanical Ventilator 30.00 04/20/22 01:00 64 04/20/22 00:00 58 15 123/86 100 Mechanical Ventilator 30.00 04/20/22 00:00 Mechanical Ventilator 30 04/19/22 23:30 89 04/19/22 23:00 62 13 100/73 100 Mechanical Ventilator 30.00 04/19/22 22:35 35.7 04/19/22 22:00 69 16 113/69 100 Mechanical Ventilator 30.00 04/19/22 21:58 57 113/76 04/19/22 21:23 57 19 100 30 04/19/22 21:00 53 17 113/76 100 Mechanical Ventilator 30.00 04/19/22 20:05 35.8 04/19/22 20:00 54 14 103/67 100 Mechanical Ventilator 30.00 04/19/22 20:00 Mechanical Ventilator 30 04/19/22 19:51 Mechanical Ventilator 30.00 04/19/22 19:00 60 04/19/22 19:00 55 18 105/69 100 Mechanical Ventilator 40.00 04/19/22 18:22 56 16 100 30 04/19/22 18:10 57 97/70 04/19/22 18:00 57 57 97/65 100 Mechanical Ventilator 40.00 04/19/22 17:16 100 Mechanical Ventilator 40.00 04/19/22 17:00 Mechanical Ventilator 50 04/19/22 17:00 55 16 111/77 99 Mechanical Ventilator 100.00 04/19/22 16:45 56 04/19/22 16:35 73 16 118/89 99 Mechanical Ventilator 04/19/22 16:32 60 17 100 50 04/19/22 16:30 55 16 118/89 100 Mechanical Ventilator 100.00 04/19/22 16:15 60 16 105/73 100 Mechanical Ventilator 100.00 04/19/22 16:02 54 111/78 04/19/22 14:07 56 16 100 50 04/19/22 14:07 71 137/99 04/19/22 12:50 36.1 64 22 103/68 (80) 96 I & O 04/20/22 07:00 Intake Total 1100 ml Output Total 825 ml Balance 275 ml Height & Weight Height: '" Weight: lbs. oz. kg; 20.55 BMI Method: General Appearance: No Apparent Distress, Thin, Other (intubated and sedated) HEENT: Other (endotracheal tube in place) Neck: Full Range of Motion, Normal Inspection Respiratory: Lungs Clear, No Respiratory Distress Cardiovascular: Regular Rate, Rhythm, No Murmur Capillary Refill: Less Than 3 Seconds Peripheral Pulses: 1+ Dorsalis Pedis (R), 1+ Left Dors-Pedis (L) (See free text.) Extremity: Normal Inspection, No Pedal Edema, Other (previous right toe amputations) Neurologic/Psychiatric: Other (sedated) Skin: Normal Color, Warm/Dry Results Lab Laboratory Tests 04/19/22 13:00 04/20/22 04:57 Assessment/Plan Assessment/Plan See free text. Critical Care: Ventilator Management MICHELE SUMNER MD Apr 20, 2022 09:20
[2022-04-20] MEDS ORDERED: DexMEDEtomidine 250 ML DRIP 250 ML IV ONE (09:23)
[2022-04-20 10:10] VITALS: BP 103/69
[2022-04-20] MEDS ORDERED: FERR-84 PO (11:46)
[2022-04-20] MEDS ORDERED: DIGO125T3 PO (11:46)
[2022-04-20] MEDS: RIVAROXABAN 20 MG TABLET (XARELTO) PO SCH (14:00)
[2022-04-20 15:37] VITALS: BP 78/62
[2022-04-20 18:18] VITALS: BP 92/64
[2022-04-20] MEDS ORDERED: LACTATED RINGERS 1,000 ML IV SCH (20:15)
[2022-04-20] MEDS ORDERED: LACTATED RINGERS 2,000 ML IV ONE (20:21)
--- NOTE | 2022-04-20 21:48 | Progress Note - Hospitalist ---
Subjective HPI/CC On Admission Date Seen by Provider: Apr 20, 2022 Time Seen by Provider: 10:25 Moshe Soto is a 61 year old male with PMH HTN ,AFib, CAD, PVD, tobacco abuse, COPD, who presented with altered mental status. He was found unresponsive by his brother. He was given Narcan. His mental status improved. He denied taking any extra medications or illicit drugs. He denied intent to harm himself. He became more somnolent and required intubation in the emergency room. He was admitted and transferred to the ICU. Upon my exam, he is intubated and sedated with no family at bedside. Subjective/Events-last exam He remains intubated and sedated. Objective Exam Vital Signs Vital Signs Date Time Temp Pulse Resp B/P (MAP) Pulse Ox O2 Delivery O2 Flow Rate FiO2 04/20/22 20:00 Mechanical Ventilator 25 04/20/22 19:31 37.0 81 22 86/60 95 25.00 Capillary Refill : Less Than 3 Seconds General Appearance: No Apparent Distress, Chronically ill, Thin Respiratory: Lungs Clear, No Respiratory Distress, Other (intubated) Cardiovascular: Regular Rate, Rhythm, No Murmur Gastrointestinal: Normal Bowel Sounds, Soft Extremity: Normal Inspection, No Pedal Edema Neurologic/Psychiatric: Other (sedated) Skin: Normal Color, Warm/Dry Results/Procedures Lab Laboratory Tests 04/20/22 04:57 Patient resulted labs reviewed. Imaging: Reviewed Imaging Report Assessment/Plan Assessment and Plan Assess & Plan/Chief Complaint Polysubstance overdose Acute respiratory failure Endotracheally intubated Required Narcan x2 Intubated for airway protection TeleICU following No plan for extubation today Continue to wean as able HTN HLD CAD PAD AFib COPD Critical Care Ventilator Management Diagnosis/Problems Diagnosis/Problems (1) Acute respiratory failure Qualifiers: Respiratory failure complication: unspecified whether with hypoxia or hypercapnia Qualified Codes: J96.00 - Acute respiratory failure, unspecified whether with hypoxia or hypercapnia (2) Endotracheally intubated (3) Polysubstance overdose (4) COPD (chronic obstructive pulmonary disease) Status: Chronic (5) CAD (coronary artery disease) Status: Chronic (6) Paroxysmal atrial fibrillation Status: Chronic (7) PVD (peripheral vascular disease) Status: Chronic (8) HTN (hypertension) Status: Chronic Clinical Quality Measures AMI/AHF: ASA po Prior to arrival: No AD,CLAU M MD Apr 20, 2022 21:48
[2022-04-20] MEDS: LACTATED RINGERS 1,000 ML IV SCH (22:21)
[2022-04-20 22:29] VITALS: BP 100/65
[2022-04-21] MEDS: inSUlin ASPART (NovoLOG) 1 UNIT/0.01 ML (CHARGE PER UNIT) SC SCH ×2 (01:44→05:03)
[2022-04-21 02:22] VITALS: BP 96/63
[2022-04-21] MEDS: RT-ALBUTEROL/IPRATROPIUM 3 ML (DUONEB) VIAL INH SCH ×6 (02:22→21:54)
[2022-04-21] MEDS: PROPOFOL DRIP (ICU) 100 ML IV SCH (03:18)
[2022-04-21 04:25] LABS: BASOPHILS % (AUTO) 1 % (0-10); EOSINOPHILS # (AUTO) 0.2 10^3/uL (0.0-0.3); EOSINOPHILS % (AUTO) 2 % (0-10); HEMATOCRIT 29 % (40-54); LYMPHOCYTES # (AUTO) 1.7 10^3/uL (1.0-4.0); LYMPHOCYTES % (AUTO) 21 % (12-44); MEAN CORPUSCULAR HEMOGLOBIN 31 pg (25-34); MEAN CORPUSCULAR HGB CONC 32 g/dL (32-36); MEAN CORPUSCULAR VOLUME 97 fL (80-99); MEAN PLATELET VOLUME 9.4 fL (9.0-12.2); MONOCYTES # (AUTO) 0.8 10^3/uL (0.0-1.0); MONOCYTES % (AUTO) 9 % (0-12); NEUTROPHILS # (AUTO) 5.4 10^3/uL (1.8-7.8); NEUTROPHILS % (AUTO) 67 % (42-75); PLATELET COUNT 390 10^3/uL (130-400); WHITE BLOOD COUNT 8.2 10^3/uL (4.3-11.0)
[2022-04-21 04:46] LABS: ALBUMIN 2.9 GM/DL (3.2-4.5)
[2022-04-21 04:47] LABS: POTASSIUM 3.8 MMOL/L (3.6-5.0)
[2022-04-21 04:48] LABS: CALCIUM 8.3 MG/DL (8.5-10.1)
[2022-04-21 04:49] LABS: TOTAL PROTEIN 5.5 GM/DL (6.4-8.2)
[2022-04-21 04:51] LABS: BILIRUBIN,TOTAL 0.5 MG/DL (0.1-1.0)
[2022-04-21 04:53] LABS: CREATININE SERUM 0.53 MG/DL (0.60-1.30)
[2022-04-21 04:56] LABS: MAGNESIUM 2.2 MG/DL (1.6-2.4)
[2022-04-21] MEDS: POTASSIUM CL 10MEQ/50ML IVPB 50 ML IV SCH (05:02)
[2022-04-21] MEDS: KCL 20 MEQ TAB (K-DUR) PO SCH (05:03)
[2022-04-21] MEDS: MAGNESIUM 1 GM/100 ML IVPB 100 ML IV SCH (05:03)
[2022-04-21] MEDS: LACTATED RINGERS 1,000 ML IV SCH ×2 (06:03→14:15)
[2022-04-21 06:29] LABS: ABG PCO2 40 MMHG (35-45); ABG PH 7.42 (7.37-7.43); ABG PO2 67 MMHG (79-93)
[2022-04-21 06:30] LABS: ABG BASE EXCESS 1.8 MMOL/L (-2.5-2.5); ABG OXYGEN SATURATION 95 % (94-100); ALLENS TEST YES-POS; INSPIRED O2 25%; PATIENT TEMP 37.3; VENTILATOR YES
[2022-04-21 06:36] VITALS: BP 101/65
--- NOTE | 2022-04-21 06:48 | Occ Therapy Progress Note ---
Therapy Progress Note Pt currently intubated. OT to monitor pt's status then will initiate treatment when pt is medically stable and able to actively participate in skilled therapy. CANDI MITCHELL Apr 21, 2022 06:48
--- NOTE | 2022-04-21 07:55 | Physical Therapy Progress Note ---
Therapy Progress Note Patient remains intubated and sedated. Will monitor and start when appropriate and patient can participate. MARKO REID PT Apr 21, 2022 07:55
[2022-04-21] MEDS: DOCUSATE SODIUM 100 MG (COLACE) CAP PO SCH ×2 (08:26→19:30)
[2022-04-21] MEDS: SENNOSIDES 8.6 MG (SENOKOT) TAB PO SCH ×2 (08:26→19:30)
[2022-04-21] MEDS: PANTOPRAZOLE 40 MG (PROTONIX) VIAL IV SCH (08:26)
--- NOTE | 2022-04-21 08:55 | Tele-ICU Progress Note ---
Subjective Date Seen by a Provider: Apr 21, 2022 Time Seen by a Provider: 08:50 Subjective/Events-last exam Probable accidental overdose of oxycodone, On vent, AC 16 Vt 400 FiO2 25% PEEP 5, awake, On IV propofol, IV Precedex but BP dropped, Can cough, Will try on breathing trial Does not need much suctioning, secretions mostly in mouth Sputum culture grew staph and GNR-not on abx CXR shows marked hyperinflation, CO2 is mild elevated Sepsis Event Evaluation Height, Weight, BMI Height: '" Weight: lbs. oz. kg; 20.55 BMI Method: Exam Exam Patient acknowledged, consented, and participated in this virtual visit which was conducted using real time audio/video Vital Signs Date Time Temp Pulse Resp B/P (MAP) Pulse Ox O2 Delivery O2 Flow Rate FiO2 04/21/22 08:00 73 23 99/64 94 Mechanical Ventilator 25.00 04/21/22 08:00 36.4 04/21/22 07:18 69 102/63 04/21/22 07:00 73 04/21/22 07:00 74 22 103/65 96 Mechanical Ventilator 25.00 04/21/22 06:36 71 24 97 25 04/21/22 06:00 73 99/52 04/21/22 06:00 70 20 103/60 97 Mechanical Ventilator 25.00 04/21/22 05:00 77 19 98/63 94 Mechanical Ventilator 25.00 04/21/22 04:58 71 97/77 04/21/22 04:00 72 22 99/58 95 Mechanical Ventilator 25.00 04/21/22 04:00 Mechanical Ventilator 25 04/21/22 03:18 67 96/63 04/21/22 03:00 72 19 107/65 97 Mechanical Ventilator 25.00 04/21/22 02:22 67 24 96 25 04/21/22 02:00 67 25 96/63 95 Mechanical Ventilator 25.00 04/21/22 01:00 70 04/21/22 01:00 66 18 89/59 98 Mechanical Ventilator 25.00 04/21/22 00:00 70 19 91/61 95 Mechanical Ventilator 25.00 04/21/22 00:00 37.5 04/21/22 00:00 Mechanical Ventilator 25 04/20/22 23:00 73 20 94/59 96 Mechanical Ventilator 25.00 04/20/22 22:29 70 26 99 25 04/20/22 22:00 69 22 94/58 96 Mechanical Ventilator 25.00 04/20/22 21:00 73 21 87/56 96 Mechanical Ventilator 25.00 04/20/22 21:00 37.1 04/20/22 20:00 Mechanical Ventilator 25 04/20/22 20:00 80 21 79/53 93 Mechanical Ventilator 25.00 04/20/22 19:45 81/53 04/20/22 19:31 37.0 81 22 86/60 95 Mechanical Ventilator 25.00 04/20/22 19:15 82/56 04/20/22 19:00 81 04/20/22 19:00 81 21 90/60 95 Mechanical Ventilator 25.00 04/20/22 18:18 81 22 99 25 04/20/22 18:00 82 17 92/64 99 Mechanical Ventilator 30.00 04/20/22 17:00 84 19 89/62 98 Mechanical Ventilator 30.00 04/20/22 16:53 37.3 04/20/22 16:00 Mechanical Ventilator 30 04/20/22 16:00 84 20 74/49 98 Mechanical Ventilator 30.00 04/20/22 15:37 78 21 98 30 04/20/22 15:00 80 19 84/60 98 Mechanical Ventilator 30.00 04/20/22 14:00 80 18 91/61 97 Mechanical Ventilator 30.00 04/20/22 13:00 80 18 85/56 98 Mechanical Ventilator 30.00 04/20/22 13:00 82 04/20/22 12:02 Mechanical Ventilator 30 04/20/22 12:00 36.7 04/20/22 12:00 85 17 85/63 97 Mechanical Ventilator 30.00 04/20/22 11:00 87 18 83/59 95 Mechanical Ventilator 30.00 04/20/22 10:10 86 20 98 30 04/20/22 10:00 86 16 103/69 99 Mechanical Ventilator 30.00 04/20/22 10:00 86 16 103/69 99 Mechanical Ventilator 30.00 04/20/22 09:30 88 126/80 04/20/22 09:29 87 126/80 04/20/22 09:00 92 20 127/76 98 Mechanical Ventilator 30.00 I & O 04/21/22 07:00 Intake Total 2220 ml Output Total 1175 ml Balance 1045 ml Height & Weight Height: '" Weight: lbs. oz. kg; 20.55 BMI Method: General Appearance: No Apparent Distress, Chronically ill, Cachetic, Thin HEENT: PERRL/EOMI, Other (endotracheal tube in place) Neck: Full Range of Motion, Normal Inspection Respiratory: Lungs Clear, No Respiratory Distress, Decreased Breath Sounds, Other (intubated) Cardiovascular: Regular Rate, Rhythm, No Murmur Capillary Refill: Less Than 3 Seconds Peripheral Pulses: 1+ Dorsalis Pedis (R), 1+ Left Dors-Pedis (L) (See free text.) Extremity: Normal Inspection, No Pedal Edema Neurologic/Psychiatric: Other (sedated) Skin: Normal Color, Warm/Dry Results Lab Laboratory Tests 04/19/22 13:00 04/20/22 04:57 04/21/22 03:39 Assessment/Plan Assessment/Plan Severe hyperinflation on CXR, awake so will try breathing trial continue albuterol Doing well on SBT, will extubate Critical Care: Ventilator Management Time spent with patient (mins): 35 SILAS ABEBE MD Apr 21, 2022 08:55
[2022-04-21 10:37] VITALS: BP 109/70
[2022-04-21] MEDS ORDERED: fentaNYL INJ 100 MCG/2 ML AMP ONE (10:52)
[2022-04-21] MEDS ORDERED: BACLOFEN 10 MG (LIORESAL) TAB PO PRN (12:00)
[2022-04-21] MEDS: RIVAROXABAN 20 MG TABLET (XARELTO) PO SCH (14:17)
[2022-04-21] MEDS: GABAPENTIN 400 MG (NEURONTIN) CAP PO SCH ×2 (14:17→20:10)
[2022-04-21] MEDS: ALPRAZolam 0.5 MG (XANAX) TAB PO PRN ×2 (14:20→22:46)
--- NOTE | 2022-04-21 16:00 | Progress Note - Hospitalist ---
Subjective HPI/CC On Admission Date Seen by Provider: Apr 21, 2022 Time Seen by Provider: 10:45 Moshe Soto is a 61 year old male with PMH HTN ,AFib, CAD, PVD, tobacco abuse, COPD, who presented with altered mental status. He was found unresponsive by his brother. He was given Narcan. His mental status improved. He denied taking any extra medications or illicit drugs. He denied intent to harm himself. He became more somnolent and required intubation in the emergency room. He was admitted and transferred to the ICU. Upon my exam, he is intubated and sedated with no family at bedside. Subjective/Events-last exam He remains intubated. His sedation is weaned. He is following commands. Objective Exam Vital Signs Vital Signs Date Time Temp Pulse Resp B/P (MAP) Pulse Ox O2 Delivery O2 Flow Rate FiO2 04/21/22 15:24 95 Nasal Cannula 2.00 04/21/22 14:00 85 25 95/62 04/21/22 10:37 25 04/21/22 08:00 36.4 Capillary Refill : Less Than 3 Seconds General Appearance: No Apparent Distress, Thin Respiratory: Lungs Clear, No Respiratory Distress Cardiovascular: Regular Rate, Rhythm, No Murmur Gastrointestinal: Normal Bowel Sounds, Soft, Tenderness Extremity: Normal Inspection, No Pedal Edema Neurologic/Psychiatric: Alert Skin: Normal Color, Warm/Dry Results/Procedures Lab Laboratory Tests 04/21/22 03:39 Patient resulted labs reviewed. Imaging: Reviewed Imaging Report Assessment/Plan Assessment and Plan Assess & Plan/Chief Complaint Polysubstance overdose Acute respiratory failure Endotracheally intubated Required Narcan x2 Intubated for airway protection TeleICU following s/p extubation 04/21 HTN HLD CAD PAD AFib COPD Resume home meds Critical Care Ventilator Management Diagnosis/Problems Diagnosis/Problems (1) Acute respiratory failure Status: Acute Qualifiers: Respiratory failure complication: unspecified whether with hypoxia or hypercapnia Qualified Codes: J96.00 - Acute respiratory failure, unspecified whether with hypoxia or hypercapnia (2) Endotracheally intubated Status: Resolved Resolution Date/Time: 04/21/22 @ 15:59 (3) Polysubstance overdose (4) COPD (chronic obstructive pulmonary disease) Status: Chronic (5) CAD (coronary artery disease) Status: Chronic (6) Paroxysmal atrial fibrillation Status: Chronic (7) PVD (peripheral vascular disease) Status: Chronic (8) HTN (hypertension) Status: Chronic Clinical Quality Measures AMI/AHF: ASA po Prior to arrival: CLAU Young MD Apr 21, 2022 16:00
[2022-04-22] MEDS: LACTATED RINGERS 1,000 ML IV SCH ×3 (00:35→13:15)
[2022-04-22] MEDS: RT-ALBUTEROL/IPRATROPIUM 3 ML (DUONEB) VIAL INH SCH ×3 (01:59→11:16)
[2022-04-22 05:02] LABS: BASOPHILS % (AUTO) 0 % (0-10); EOSINOPHILS # (AUTO) 0.5 10^3/uL (0.0-0.3); EOSINOPHILS % (AUTO) 5 % (0-10); HEMATOCRIT 29 % (40-54); LYMPHOCYTES # (AUTO) 1.7 10^3/uL (1.0-4.0); LYMPHOCYTES % (AUTO) 18 % (12-44); MEAN CORPUSCULAR HEMOGLOBIN 30 pg (25-34); MEAN CORPUSCULAR HGB CONC 32 g/dL (32-36); MEAN CORPUSCULAR VOLUME 97 fL (80-99); MEAN PLATELET VOLUME 9.3 fL (9.0-12.2); MONOCYTES # (AUTO) 0.8 10^3/uL (0.0-1.0); MONOCYTES % (AUTO) 9 % (0-12); NEUTROPHILS # (AUTO) 6.1 10^3/uL (1.8-7.8); NEUTROPHILS % (AUTO) 67 % (42-75); PLATELET COUNT 342 10^3/uL (130-400); WHITE BLOOD COUNT 9.1 10^3/uL (4.3-11.0)
[2022-04-22 05:13] LABS: ALBUMIN 2.9 GM/DL (3.2-4.5); POTASSIUM 3.8 MMOL/L (3.6-5.0)
[2022-04-22 05:14] LABS: CALCIUM 8.2 MG/DL (8.5-10.1)
[2022-04-22 05:16] LABS: TOTAL PROTEIN 5.4 GM/DL (6.4-8.2)
[2022-04-22 05:17] LABS: BILIRUBIN,TOTAL 0.3 MG/DL (0.1-1.0)
[2022-04-22 05:19] LABS: CREATININE SERUM 0.55 MG/DL (0.60-1.30); PHOSPHORUS 3.6 MG/DL (2.3-4.7)
[2022-04-22 05:22] LABS: MAGNESIUM 1.8 MG/DL (1.6-2.4)
[2022-04-22] MEDS: KCL 20 MEQ TAB (K-DUR) PO SCH (06:00)
[2022-04-22] MEDS: POTASSIUM CL 10MEQ/50ML IVPB 50 ML IV SCH (06:00)
[2022-04-22] MEDS: MAGNESIUM 1 GM/100 ML IVPB 100 ML IV SCH (06:00)
[2022-04-22] MEDS: ALPRAZolam 0.5 MG (XANAX) TAB PO PRN (06:41)
--- NOTE | 2022-04-22 08:18 | Tele-ICU Progress Note ---
Subjective Date Seen by a Provider: Apr 22, 2022 Time Seen by a Provider: 08:16 Subjective/Events-last exam Now extubated 24 h doing well, currently on 3 lpm NC, SpO2 95%. On home oxygen, Has been out of bed. Cough is good, Not having problem with secretions. off abx Sepsis Event Evaluation Height, Weight, BMI Height: '" Weight: lbs. oz. kg; 20.55 BMI Method: Exam Exam Patient acknowledged, consented, and participated in this virtual visit which was conducted using real time audio/video Vital Signs Date Time Temp Pulse Resp B/P (MAP) Pulse Ox O2 Delivery O2 Flow Rate FiO2 04/22/22 07:42 36.9 04/22/22 07:11 95 Nasal Cannula 3.00 04/22/22 07:00 82 04/22/22 06:00 73 26 104/66 97 Nasal Cannula 2.00 04/22/22 05:00 78 24 99/54 97 Nasal Cannula 2.00 04/22/22 04:00 Nasal Cannula 2.00 04/22/22 04:00 84 24 102/70 92 Nasal Cannula 2.00 04/22/22 03:00 85 25 103/64 95 Nasal Cannula 2.00 04/22/22 02:00 85 21 107/66 95 Nasal Cannula 2.00 04/22/22 01:59 96 Nasal Cannula 3.00 04/22/22 01:00 81 29 100/67 97 Nasal Cannula 2.00 04/22/22 01:00 81 04/22/22 00:00 84 24 102/70 92 Nasal Cannula 2.00 04/22/22 00:00 Nasal Cannula 2.00 04/21/22 23:00 86 25 124/75 91 Nasal Cannula 2.00 04/21/22 22:00 82 26 108/70 98 Nasal Cannula 2.00 04/21/22 21:54 92 Nasal Cannula 0.50 04/21/22 21:00 79 24 113/69 92 Nasal Cannula 2.00 04/21/22 20:00 37.2 04/21/22 20:00 84 24 102/70 92 Nasal Cannula 2.00 04/21/22 20:00 Nasal Cannula 2.00 04/21/22 19:00 92 04/21/22 19:00 81 26 114/66 100 Nasal Cannula 2.00 04/21/22 18:39 94 Nasal Cannula 1.00 04/21/22 18:00 78 25 111/66 92 Nasal Cannula 2.00 04/21/22 17:00 77 103/66 95 Nasal Cannula 2.00 04/21/22 16:00 Nasal Cannula 2.00 04/21/22 16:00 81 26 106/60 94 Nasal Cannula 2.00 04/21/22 15:24 95 Nasal Cannula 2.00 04/21/22 15:00 84 26 92/59 92 Nasal Cannula 2.00 04/21/22 14:00 85 25 95/62 91 Nasal Cannula 2.00 04/21/22 13:00 76 25 104/59 96 Nasal Cannula 2.00 04/21/22 12:40 84 04/21/22 12:00 78 27 94/61 93 Nasal Cannula 2.00 04/21/22 12:00 Nasal Cannula 2.00 04/21/22 11:00 69 11 122/73 98 Mechanical Ventilator 25.00 04/21/22 10:37 68 20 94 25 04/21/22 10:00 73 21 105/66 96 Mechanical Ventilator 25.00 04/21/22 09:00 73 22 97/64 96 Mechanical Ventilator 25.00 I & O 04/22/22 07:00 Intake Total 1840 ml Output Total 2650 ml Balance -810 ml Height & Weight Height: '" Weight: lbs. oz. kg; 20.55 BMI Method: General Appearance: No Apparent Distress, Thin HEENT: PERRL/EOMI, Other (endotracheal tube in place) Neck: Full Range of Motion, Normal Inspection Respiratory: Lungs Clear, No Respiratory Distress, Decreased Breath Sounds, Wheezing Cardiovascular: Regular Rate, Rhythm, No Edema, No Murmur Capillary Refill: Less Than 3 Seconds Peripheral Pulses: 1+ Dorsalis Pedis (R), 1+ Left Dors-Pedis (L) (See free text.) Gastrointestinal: normal bowel sounds, non tender, soft Extremity: Normal Inspection, No Pedal Edema Neurologic/Psychiatric: Alert, Oriented x3 Skin: Normal Color, Warm/Dry Results Lab Laboratory Tests 04/21/22 03:39 04/22/22 04:44 Assessment/Plan Assessment/Plan Will continue on nasal cannula, Doing much better can go to floor Critical Care: Critically Ill Patient Time spent with patient (mins): 30 SILAS ABEBE MD Apr 22, 2022 08:18
[2022-04-22] MEDS: PANTOPRAZOLE 40 MG (PROTONIX) VIAL IV SCH (08:35)
[2022-04-22] MEDS: GABAPENTIN 400 MG (NEURONTIN) CAP PO SCH ×2 (08:35→13:40)
[2022-04-22] MEDS ORDERED: DULoxetine 30 MG (CYMBALTA) CAP PO SCH (09:00)
[2022-04-22] MEDS ORDERED: DIGOXIN 0.125 MG (LANOXIN) TAB PO SCH (09:00)
[2022-04-22] MEDS: DOCUSATE SODIUM 100 MG (COLACE) CAP PO SCH (09:00)
[2022-04-22] MEDS: SENNOSIDES 8.6 MG (SENOKOT) TAB PO SCH (09:00)
--- NOTE | 2022-04-22 09:46 | Physical Therapy Evaluation ---
PT Evaluation-General Medical Diagnosis Admission Date Apr 19, 2022 at 15:15 Medical Diagnosis: overdose Onset Date: Apr 19, 2022 Therapy Diagnosis Therapy Diagnosis: impaired mobility Precautions Precautions/Isolations: Aspiration, Fall Prevention, Standard Precautions, Pressure Ulcer Referral Physician: Roxanne Reason for Referral: Evaluation/Treatment Medical History Pertinent Medical History: Atrial Fib, Alcoholism, COPD, HTN, Renal Insufficiency, Smoking, TBI Additional Medical History Past Medical History Surgeries: Orthopedic Pneumonia, COPD Currently Using CPAP: No Currently Using BIPAP: No Atrial Fibrillation, Deep Vein Thrombosis, Hypertension Neuropathy Sexually Transmitted Disease: No HIV/AIDS: No Renal Failure Abdominal Hernia, Gastrointestinal Bleed Chronic Back Pain Tinnitis Loss of Vision: Denies Hearing Impairment: Deaf Recent Skin Changes Blood Disorders: No Adverse Reaction/Blood Tranf: No Reviewed History: Yes Social History Current Living Status: Other Family (brother) Entry Into Home: Stairs With Railing PT Steps Into Home: 1 Prior Prior Level of Function SCALE: Activities may be completed with or without assistive devices. 5-Bjfkztqemb-wxctkgg completes the activity by him/herself with no assistance from a helper. 5-Set-up or Clean-up Assistance-helper sets up or cleans up; patient completes activity. [place] assists only prior to or following the activity. 4-Supervision or Touching Assistance-helper provides verbal cues and/or touching/steadying and/or contact guard assistance as patient completes activity. Assistance may be provided throughout the activity or intermittently. 3-Partial/Moderate Assistance-helper does LESS THAN HALF the effort. [place] lifts, holds or supports trunk or limbs, but provides less than half the effort. 2-Substantial/Maximal Assistance-helper does MORE THAN HALF the effort. [place] lifts or holds trunk or limbs and provides more than half the effort. 0-Gextivbhr-hedsvm does ALL the effort. Patient does none of the effort to complete the activity. Or, the assistance of 2 or more helpers is required for the patient to complete the activity. If activity was not attempted, code reason: 7-Patient Refused. 9-Not Applicable-not attempted and the patient did not perform the activity before the current illness, exacerbation or injury. 10-Not Attempted due to Environmental Limitations-(lack of equipment, weather restraints, etc.). 88-Not Attempted due to Medical Conditions or Safety Concerns. Bed Mobility: 6 Transfers (B,C,W/C): 6 Gait: 6 Stairs: 6 Indoor Mobility (Ambulation): Independent Stairs: Independent Patient states he used a SPC PT Evaluation-Current Subjective Patient in bed pre tx, agrees to PT, has 8/10 pain in chest (nurse aware) Pt/Family Goals to be independent at home Objective Patient Orientation: Person, Place, Situation Attachments: Oxygen, Jackson Catheter, IV ROM/Strength ROM Lower Extremities WNL Strength Lower Extremities LLE (hip flexion 4+/5, knee flexion 5/5, knee extension 5/5, dorsiflexion 5/5), RLE (hip flexion 4+/5, knee flexion 5/5, knee extension 5/5, dorsiflexion 5/5) Sensory Vision: Functional Hearing: Functional Sensation Right Lower Extremit: Intact Sensation Left Lower Extremity: Intact Transfers Roll Left to Right (QC): 6 Sit to Lying (QC): 6 Lying to Sitting/Side of Bed(Q: 6 Sit to Stand (QC): 4 Chair/Jcl-xd-Xgumb Xfer(QC): 4 Gait Does the Patient Walk?: Yes Mode of Locomotion: Walk Anticipated Mode of Locomotion: Walk Walk 10 feet (QC): 4 Walk 50 ft with 2 Turns(QC): 4 Distance: 100' Gait Assistive Device: FWW Comments/Gait Description SBA, slow ambulation, slightly unsteady but no LOB Balance Sitting Static: Normal Sitting Dynamic: Normal Standing Static: Good Standing Dynamic: Fair Treatment BLE supine exercise x20 (AP, HS) Assessment/Needs Patient in bed post tx with nurse call, phone, tray, all needs met. Patient has impaired mobility, SBA for ambulation and transfers Rehab Potential: Fair PT Pharmacy Service Associate Goals Pharmacy Service Associate Goals PT Pharmacy Service Associate Goals Time Frame: Apr 29, 2022 Roll Left & Right (QC): 6 Sit to Lying (QC): 6 Lying-Sitting on Side/Bed(QC): 6 Sit to Stand (QC): 6 Chair/Ebn-mu-Hsbid Xfer(QC): 6 Walk 10 feet (QC): 6 Walk 50ft with 2 Turns (QC): 6 Walk 150 ft (QC): 6 PT Plan Problem List Problem List: Activity Tolerance, Functional Strength, Safety, Balance, Gait, Transfer, ROM Treatment/Plan Treatment Plan: Continue Plan of Care Treatment Plan: Education, Functional Activity [place], Functional Strength, Gait, Safety, Therapeutic Exercise, Transfers Treatment Duration: Apr 29, 2022 Frequency: 6 times per week Estimated Hrs Per Day: .25 hour per day Patient and/or Family Agrees t: Yes Safety Risks/Education Patient Education: Gait Training, Transfer Techniques, Correct Positioning, Safety Issues Teaching Recipient: Patient Teaching Methods: Demonstration, Discussion Response to Teaching: Reinforcement Needed Discharge Recommendations Plan Patient will perform bed mobility and transfer training, balance and endurance training, functional strengthening, stair training, gait training, and education, to improve functional mobility and independence at home. Therapy Discharge Recommendati: Scheduled Assistance, Home & Family, Post Acute PT Time/GCodes Time In: 906 Time Out: 919 Total Billed Treatment Time: 13 Total Billed Treatment 1 visit MARKO LUCIO PT Apr 22, 2022 09:46
[2022-04-22 13:17] VITALS: BP 112/73
[2022-04-22] MEDS: RIVAROXABAN 20 MG TABLET (XARELTO) PO SCH (13:40)
--- NOTE | 2022-04-22 17:25 | Discharge Summary ---
Discharge Summary Hospital Course Problems/Dx: (1) Acute respiratory failure Status: Acute Qualifiers: Qualified Codes: J96.00 - Acute respiratory failure, unspecified whether with hypoxia or hypercapnia (2) Endotracheally intubated Status: Resolved (3) Polysubstance overdose Status: Acute (4) COPD (chronic obstructive pulmonary disease) Status: Chronic (5) CAD (coronary artery disease) Status: Chronic (6) Paroxysmal atrial fibrillation Status: Chronic (7) PVD (peripheral vascular disease) Status: Chronic (8) HTN (hypertension) Status: Chronic Hospital Course Date of Admission: Apr 19, 2022 at 15:15 Admission Diagnosis : Polysubstance overdose Family Physician/Provider: Jay Bautista MD Date of Discharge: 04/22/22 Discharge Diagnosis: Unintentional polysubstance overdose Hospital Course: Moshe Soto is a 61 year old male with PMH HTN, COPD, PAD, AFib, CAD, HLD, who presented with altered mental status and was admitted with accidental polysubstance overdose. He required intubation for airway protection. He was successfully extubated after two days on the ventilator. He is prescribed Oxycodone, Xanax, Gabapentin, BAclofen, and Venlafaxine, all of which can cause somnolence. He did not take any additional medicine other than as it was prescribed. He needs to follow up with Dr. Bautista for a medication review to determine if some of the medications can be reduced or discontinued. His sputum culture grew STaph and gram negative shashank. He had no fever, leukocytosis, and his cough, shortness of breath, and oxygen requirement were at baseline. He was not given antibiotics. He should follow up with Dr. Bautista next week. He was discharged home in stable condition. Labs and Pending Lab Test: Laboratory Tests 04/22/22 04:44: White Blood Count 9.1, Red Blood Count 2.96L, Hemoglobin 9.0L, Hematocrit 29L, Mean Corpuscular Volume 97, Mean Corpuscular Hemoglobin 30, Mean Corpuscular Hemoglobin Concent 32, Red Cell Distribution Width 17.1H, Platelet Count 342, Mean Platelet Volume 9.3, Immature Granulocyte % (Auto) 0, Neutrophils (%) (Auto) 67, Lymphocytes (%) (Auto) 18, Monocytes (%) (Auto) 9, Eosinophils (%) (Auto) 5, Basophils (%) (Auto) 0, Neutrophils # (Auto) 6.1, Lymphocytes # (Auto) 1.7, Monocytes # (Auto) 0.8, Eosinophils # (Auto) 0.5H, Basophils # (Auto) 0.0, Immature Granulocyte # (Auto) 0.0, Sodium Level 138, Potassium Level 3.8, Chloride Level 106, Carbon Dioxide Level 26, Anion Gap 6, Blood Urea Nitrogen 8, Creatinine 0.55L, Estimat Glomerular Filtration Rate 114, BUN/Creatinine Ratio 15, Glucose Level 100, Calcium Level 8.2L, Corrected Calcium 9.1, Phosphorus Level 3.6, Magnesium Level 1.8, Total Bilirubin 0.3, Aspartate Amino Transf (AST/SGOT) 16, Alanine Aminotransferase (ALT/SGPT) 18, Alkaline Phosphatase 73, Total Protein 5.4L, Albumin 2.9L Microbiology 04/20/22 Gram Stain - Final, Resulted 04/20/22 Sputum Culture - Preliminary, Resulted Staphylococcus aureus Gram Negative Bacillus 1 Susceptibility To Follow Home Meds Active Reported Digoxin 125 Mcg (0.125 Mg) Tablet 250 Mcg PO DAILY TAKES 2 (125MCG) DAILY Iron (Ferrous Sulfate) 325 Mg (65 Mg Iron) Tablet 325 Mg PO DAILY Potassium Chloride 20 Meq Tab.er.prt 20 Meq PO DAILY Iprat-Albut 0.5-3(2.5) mg/3 ml (Ipratropium/Albuterol Sulfate) 0.5 Mg-3 Mg (2.5 Mg Base)/3 Ml Ampul.neb 3 Ml IH BID PRN Furosemide 40 Mg Tablet 40 Mg PO DAILY Atorvastatin Calcium 40 Mg Tablet 40 Mg PO DAILY Oxycodone HCl 5 Mg Tablet 5 Mg PO Q6H PRN Ventolin Hfa (Albuterol Sulfate) 18 Gm Hfa.aer.ad 2 Puff INH Q6H PRN Alprazolam 0.5 Mg Tablet 0.5 Mg PO Q8H PRN Gabapentin 400 Mg Capsule 400 Mg PO TID Baclofen 10 Mg Tablet 10 Mg PO BID PRN Duloxetine HCl 60 Mg Capsule.dr 60 Mg PO DAILY Xarelto (Rivaroxaban) 20 Mg Tablet 20 Mg PO DAILY Assessment/Pt Instructions See instructions Discharge Planning: >30 minutes discharge planning Discharge Instructions Discharge Diet: No Restrictions Activity as Tolerated: Yes Consultations TeleICU Discharge Physical Examination Vital Signs Vital Signs Date Time Temp Pulse Resp B/P (MAP) Pulse Ox O2 Delivery O2 Flow Rate FiO2 04/22/22 13:17 36.9 79 25 112/73 92 Nasal Cannula 2.00 04/21/22 10:37 25 General Appearance: No Apparent Distress, Chronically ill, Thin Respiratory: Lungs Clear, No Respiratory Distress Cardiovascular: Regular Rate, Rhythm, No Murmur Gastrointestinal: Normal Bowel Sounds, Soft Extremity: Normal Inspection, No Pedal Edema Skin: Normal Color, Warm/Dry Neurologic/Psychiatric: Alert, Normal Mood/Affect Allergies: Coded Allergies: No Known Drug Allergies (Verified , 07/11/09) Copy Copies To 1: JAY BAUTISTA MD Discharge Summary Date of Admission Apr 19, 2022 at 15:15 Date of Discharge Apr 22, 2022 at 13:17 Discharge Date: Apr 22, 2022 Discharge Time: 13:17 Admission Diagnosis Polysubstance overdose Consults/Procedures Consulations TeleICU Discharge Diagnosis Polysubstance overdose Acute respiratory failure (1) Acute respiratory failure Status: Acute Qualifiers: Qualified Codes: J96.00 - Acute respiratory failure, unspecified whether with hypoxia or hypercapnia (2) Endotracheally intubated Status: Resolved (3) Polysubstance overdose Status: Acute (4) COPD (chronic obstructive pulmonary disease) Status: Chronic (5) CAD (coronary artery disease) Status: Chronic (6) Paroxysmal atrial fibrillation Status: Chronic (7) PVD (peripheral vascular disease) Status: Chronic (8) HTN (hypertension) Status: Chronic Clinical Quality Measures AMI/AHF: ASA po Prior to arrival: CLAU Young MD Apr 22, 2022 17:25
== END 2022-04-22 13:17 | disposition home or self-care (01) | DRG 917 ==
LOC: EDUNIT# 12:45 → ER 12:49 → ICU 15:15
PROVIDERS: ADMIT Internal Medicine; ATTEND Internal Medicine
PROC: 5A1945Z Respiratory Ventilation, 24-96 Consecutive Hours (ICD-10-PCS; principal; 2022-04-19)
PROC: 0BH17EZ Insertion of Endotracheal Airway into Trachea, Via Natural or Artificial Opening (ICD-10-PCS; 2022-04-19)
DX: T40.2X1A Poisoning by other opioids, accidental (unintentional), initial encounter (principal); J96.20 Acute and chronic respiratory failure, unspecified whether with hypoxia or hypercapnia; R40.0 Somnolence; I25.10 Atherosclerotic heart disease of native coronary artery without angina pectoris; F17.210 Nicotine dependence, cigarettes, uncomplicated; I48.0 Paroxysmal atrial fibrillation; I10 Essential (primary) hypertension; J44.9 Chronic obstructive pulmonary disease, unspecified; G62.9 Polyneuropathy, unspecified; I73.9 Peripheral vascular disease, unspecified; H91.90 Unspecified hearing loss, unspecified ear; Z86.718 Personal history of other venous thrombosis and embolism; Z79.01 Long term (current) use of anticoagulants; Z86.73 Personal history of transient ischemic attack (TIA), and cerebral infarction without residual deficits; Z95.5 Presence of coronary angioplasty implant and graft
CPT/HCPCS: 31500; 36415; 36600; 51702; 70450; 71045; 72125; 80053; 80061; 80306; 80320; 80329; 81000; 82805; 82947; 83735; 83874; 84100; 84478; 84484; 85025; 85027; 85610; 85730; 87070; 87077; 87081; 87186; 87205; 93005; 94002; 94003; 94640; 94799; 99291

== ENCOUNTER 2022-07-13 08:00 | Emergency (ER) | payer MEDICARE ==
[~2022-07-13] VITALS: Ht 175 cm; Wt 54.0 kg
[~2022-07-13 08:00] MED LIST changes: +FERR-84 PO; +LEVO750T PO; -LEVO750T39 PO
--- NOTE | 2022-07-13 08:11 | ED Dyspnea ---
General Stated Complaint: SOA Source of Information: Patient, EMS Exam Limitations: No Limitations History of Present Illness Date Seen by Provider: Jul 13, 2022 Time Seen by Provider: 08:06 Initial Comments Patient is a 61-year-old male with a history of COPD on oxygen at home, coronary artery disease, Dr. Watson is his hot room attendant. He states he has an appointment today. Patient cannot recall the last time he had stents placed but he does have them. He did not take his daily medicines. He called the ambulance this morning for increasing shortness of breath, chest pain and pressure, headache and generally not feeling well. Patient states he felt "puny" yesterday and did not sleep well all night long. He does have a cough that is occasionally productive. He states he last ate yesterday. He states the pain seems to radiate into his back. He is short of breath. He is nauseous and did vomit on arrival to the ED. Nothing makes his symptoms any better or any worse. He states that he is COVID vaccinated with boosters. He continues to smoke. No known COVID-positive contacts. He had a DuoNeb breathing treatment prior to arrival per EMS. Currently rates his pain at a "8". All other review of systems reviewed and negative except as stated. Timing/Duration: 24 Hours Severity: Moderate Associated Symptoms: Chest Pain, Cough, Insomnia, Wheezing Allergies and Home Medications Allergies Coded Allergies: No Known Drug Allergies (Verified , 07/11/09) Patient Home Medication List Home Medication List Reviewed: Yes Albuterol Sulfate (Ventolin Hfa) 18 Gm Hfa.aer.ad, 2 PUFF INH Q6H PRN for SHORTNESS OF BREATH, (Reported) Entered as Reported by: PRISCILLA DELGADO on 11/04/21 1557 Alprazolam (Alprazolam) 0.5 Mg Tablet, 0.5 MG PO Q8H PRN for ANXIETY, (Reported) Entered as Reported by: PRISCILLA DELGADO on 11/04/21 1557 Atorvastatin Calcium (Atorvastatin Calcium) 40 Mg Tablet, 40 MG PO DAILY, (Reported) Entered as Reported by: PRISCILLA DELGADO on 03/06/22 1145 Baclofen (Baclofen) 10 Mg Tablet, 10 MG PO BID PRN for MUSCLE SPASMS, (Reported) Entered as Reported by: PRISCILLA DELGADO on 11/04/21 155 Digoxin (Digoxin) 125 Mcg (0.125 Mg) Tablet, 250 MCG PO DAILY, (Reported) Entered as Reported by: PRISCILLA DELGADO on 04/20/22 114 Duloxetine HCl (Duloxetine HCl) 60 Mg Capsule.dr, 60 MG PO DAILY, (Reported) Entered as Reported by: PRISCILLA DELGADO on 12/22/20 1254 Ferrous Sulfate (Iron) 325 Mg (65 Mg Iron) Tablet, 325 MG PO DAILY, (Reported) Entered as Reported by: PRISCILLA DELGADO on 04/20/22 1146 Furosemide (Furosemide) 40 Mg Tablet, 40 MG PO DAILY, (Reported) Entered as Reported by: PRISCILLA DELGADO on 03/06/22 1145 Gabapentin (Gabapentin) 400 Mg Capsule, 400 MG PO TID, (Reported) Entered as Reported by: PRISCILLA DELGADO on 11/04/21 155 Ipratropium/Albuterol Sulfate (Iprat-Albut 0.5-3(2.5) mg/3 ml) 0.5 Mg-3 Mg (2.5 Mg Base)/3 Ml Ampul.neb, 3 ML IH BID PRN for SHORTNESS OF BREATH, (Reported) Entered as Reported by: PRISCILLA DELGADO on 03/06/22 1145 Oxycodone HCl (Oxycodone HCl) 5 Mg Tablet, 5 MG PO Q6H PRN for PAIN-SEVERE (8- 10), (Reported) Entered as Reported by: PRISCILLA DELGADO on 11/04/21 155 Potassium Chloride (Potassium Chloride) 20 Meq Tab.er.prt, 20 MEQ PO DAILY, (Reported) Entered as Reported by: PRISCILLA DELGADO on 03/06/22 1145 Rivaroxaban (Xarelto) 20 Mg Tablet, 20 MG PO DAILY, (Reported) Entered as Reported by: PRISCILLA DELGADO on 12/22/20 1254 Review of Systems Review of Systems Constitutional: see HPI, malaise, weakness EENTM: throat pain (mild) Respiratory: cough, phlegm, short of breath, wheezing Cardiovascular: chest pain Gastrointestinal: nausea, vomiting Genitourinary: no symptoms reported Musculoskeletal: muscle pain (body aches) Skin: no symptoms reported Psychiatric/Neurological: Headache All Other Systems Reviewed Negative Unless Noted: Yes Past Rnzsnkp-Ihffvh-Rrvmek Hx Immunizations Up To Date Tetanus Booster (TDap): Less than 5yrs PED Vaccines UTD: No First/Initial COVID19 Vaccinat: 2020 Second COVID19 Vaccination Hemanth: 2020 Third COVID19 Vaccination Date: FEBRUARY Seasonal Allergies Seasonal Allergies: Yes (hayfever) Past Medical History Surgery/Hospitalization HX: AFIB, HTN, COPD, ANEMIA, CAD, CHRONIC RESPIRATORY FAILLURE WITH HYPPOXIA PNEUMONIA ortho heart cath stents, LUNG MASS, Surgeries: Yes (hernia repair, l ankle, l wrist, ) Orthopedic Respiratory: Yes Pneumonia, COPD Currently Using CPAP: No Currently Using BIPAP: No Cardiac: Yes Atrial Fibrillation, Deep Vein Thrombosis, Hypertension Neurological: Yes (neuralgia) Neuropathy Sexually Transmitted Disease: No HIV/AIDS: No Genitourinary: No Renal Failure Gastrointestinal: Yes Abdominal Hernia, Gastrointestinal Bleed Musculoskeletal: No Chronic Back Pain Endocrine: No HEENT: No (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 oz. kg; 20.55 BMI Method: General Appearance: Anxious, Mild Distress, Thin HEENT: PERRL/EOMI Respiratory: Wheezing (diffuse exp wheezes with overall poor air movement) Cardiovascular: Regular Rate, Rhythm, Normal Peripheral Pulses Gastrointestinal: Normal Bowel Sounds, Non Tender, Soft Extremity: Normal Inspection, No Pedal Edema Neurologic/Psychiatric: Alert, Oriented x3, No Motor/Sensory Deficits Skin: Normal Color, Warm/Dry Procedures/Interventions Date of ETT Placement: Apr 19, 2022 Time of ETT Placement: 1400 Progress/Results/Core Measures Results/Orders Lab Results Laboratory Tests Test 07/13/22 08:15 07/13/22 08:24 Range/Units White Blood Count 13.5 H 4.3-11.0 10^3/uL Red Blood Count 4.34 4.30-5.52 10^6/uL Hemoglobin 13.1 L 13.3-17.7 g/dL Hematocrit 42 40-54 % Mean Corpuscular Volume 96 80-99 fL Mean Corpuscular Hemoglobin 30 25-34 pg Mean Corpuscular Hemoglobin Concent 31 L 32-36 g/dL Red Cell Distribution Width 15.3 H 10.0-14.5 % Platelet Count 405 H 130-400 10^3/uL Mean Platelet Volume 8.9 L 9.0-12.2 fL Immature Granulocyte % (Auto) 0 % Neutrophils (%) (Auto) 79 H 42-75 % Lymphocytes (%) (Auto) 13 12-44 % Monocytes (%) (Auto) 6 0-12 % Eosinophils (%) (Auto) 1 0-10 % Basophils (%) (Auto) 0 0-10 % Neutrophils # (Auto) 10.7 H 1.8-7.8 10^3/uL Lymphocytes # (Auto) 1.8 1.0-4.0 10^3/uL Monocytes # (Auto) 0.8 0.0-1.0 10^3/uL Eosinophils # (Auto) 0.2 0.0-0.3 10^3/uL Basophils # (Auto) 0.0 0.0-0.1 10^3/uL Immature Granulocyte # (Auto) 0.1 0.0-0.1 10^3/uL Prothrombin Time 12.8 12.2-14.7 SEC INR Comment 0.9 0.8-1.4 Activated Partial Thromboplast Time 29 24-35 SEC Sodium Level 141 135-145 MMOL/L Potassium Level 4.8 3.6-5.0 MMOL/L Chloride Level 102 98-107 MMOL/L Carbon Dioxide Level 29 21-32 MMOL/L Anion Gap 10 5-14 MMOL/L Blood Urea Nitrogen 15 7-18 MG/DL Creatinine 0.69 0.60-1.30 MG/DL Estimat Glomerular Filtration Rate 107 BUN/Creatinine Ratio 22 Glucose Level 137 H 70-105 MG/DL Calcium Level 9.9 8.5-10.1 MG/DL Corrected Calcium 9.6 8.5-10.1 MG/DL Magnesium Level 2.2 1.6-2.4 MG/DL Total Bilirubin 0.3 0.1-1.0 MG/DL Aspartate Amino Transf (AST/SGOT) 23 5-34 U/L Alanine Aminotransferase (ALT/SGPT) 29 0-55 U/L Alkaline Phosphatase 85 40-136 U/L Myoglobin 82.8 10.0-92.0 NG/ML Troponin I < 0.028 <0.028 NG/ML Total Protein 7.9 6.4-8.2 GM/DL Albumin 4.4 3.2-4.5 GM/DL SARS-CoV-2 RNA (RT-PCR) Not Detected Not Detecte My Orders Orders - MYA MORSE MD Cbc With Automated Diff (07/13/22 08:05) Magnesium (07/13/22 08:05) Chest 1 View, Ap/Pa Only (07/13/22 08:05) Ekg Tracing (07/13/22 08:05) Comprehensive Metabolic Panel (07/13/22 08:05) Myoglobin Serum (07/13/22 08:05) Protime With Inr (07/13/22 08:05) Partial Thromboplastin Time (07/13/22 08:05) O2 (07/13/22 08:05) Monitor-Rhythm Ecg Trace Only (07/13/22 08:05) Lipid Panel (07/14/22 06:00) Ed Iv/Invasive Line Start (07/13/22 08:05) Troponin I [place] (07/13/22 08:05) Ondansetron Injection (Zofran Injectio (07/13/22 08:15) Covid 19 Inhouse Test (07/13/22 08:16) Isolation Central Supply Req (07/13/22 08:16) Aspirin Chewable Tablet (Baby Aspirin Ch (07/13/22 08:16) Morphine Injection (Morphine Injection (07/13/22 08:30) Albuterol Pre-Mix Nebs (Rt) (Proventil (07/13/22 09:30) Svn Small Volume Nebulizer (07/13/22 09:27) Doxycycline Hyclate Tablet (Vibramycin T (07/13/22 09:53) Prednisone Tablet (Deltasone Tablet) (07/13/22 10:00) Morphine Injection (Morphine Injection (07/13/22 10:15) Medications Given in ED Current Medications Medications Dose Ordered Sig/David Route Start Time Stop Time Status Last Admin Dose Admin Albuterol Sulfate 2.5 mg ONCE ONCE INH 07/13/22 09:30 07/13/22 09:31 DC 07/13/22 09:32 2.5 MG Ondansetron HCl 8 mg ONCE ONCE IVP 07/13/22 08:15 07/13/22 08:16 DC 07/13/22 08:10 8 MG Prednisone 50 mg ONCE ONCE PO 07/13/22 10:00 07/13/22 10:01 DC 07/13/22 10:07 50 MG Vital Signs/I&O 07/13/22 08:00 Temp 36.4 Pulse 87 B/P (MAP) 145/95 (112) Pulse Ox 94 O2 Delivery Nasal Cannula O2 Flow Rate 4.00 Progress Progress Note #1: Time: 08:39 Progress Note Review of the medical record shows that Moshe has had cardiac catheterization in October 2021 showing mild nonobstructive coronary artery disease. No stents were visualized. He has a history of hypertension, COPD, peripheral vascular disease, atrial fibrillation hyperlipidemia. He has had multiple hospital ad missions for respiratory issues. He is also had an admission and intubation for unintentional medication overdose. He continues to smoke. He does have some ST flattening with about a millimeter of depression in the inferior leads. Will await laboratory results chest x-ray and determine disposition. Progress Note #2: Time: 09:35 Progress Note Re-evaluated after labs - mild leukocytosis; otherwise unremarkable eval - CXR shows left upper lobe changes, however no consolidations. He is still having some external wheezes, will give another albuterol and see if this improves his breathing. He is still complaining of "achiness". Will give him a little dose of toradol as well. Progress Note #3: Time: 10:56 Progress Note Patient feels little better after IV morphine. He has been given some prednisone and some antibiotics here in the department for the patchy pneumonitis noted in the left upper lobe with a leukocytosis and in consideration of his ongoing smoking. He had a heart cath in October 2021 showing mild nonobstructive disease, he is at low risk for acute coronary syndrome secondary to the basically clean cath he had. He does not have a consolidative pneumonia. He is not septic, has stable vitals on his home oxygen of 3 L. He is exhibiting no increased work of breathing/respiratory distress. Low clinical concern for pulmonary embolism we will send him home with an albuterol inhaler with a spacer. Steroids, antibiotics and Tylenol with codeine for cough. I have discussed return precautions with him. He verbalized understanding is comfortable with plan of care. I would suspect that he is at high risk for readmission to the emergency room/hospital due to his severe COPD. At the time of discharge, his lungs are clear, no wheezing whatsoever is heard. Initial ECG Impression Date: Jul 13, 2022 Initial ECG Impression Time: 08:19 Initial ECG Rate: 84 Initial ECG Rhythm: Normal Sinus Initial ECG Intervals: Normal Initial ECG Impression: Nonspecific Changes Comment No ectopy, normal sinus rhythm with ST flattening and depression of 1 mm in the inferior leads. No ST segment elevation is noted. Diagnostic Imaging Diagonstic Imaging: Xray Plain Films/CT/US/NM/MRI: chest Comments [facility], [place] NAME: MOSHE JOLLY [facility] REC#: [id number] PT STATUS: REG ER : 1960 PHYSICIAN: MYA MORSE MD ADMIT DATE: 07/13/22/ER Draft Date of Exam:07/13/22 CHEST 1 VIEW, AP/PA ONLY INDICATION: Chest pain. COMPARISON: 04/20/2022. TECHNIQUE: Single radiograph of the chest dated 07/13/2022. FINDINGS: The cardiac silhouette is within normal limits in size. No significant pulmonary vascular congestion. Severe background emphysematous changes with scattered regions of scarring and fibrosis are again identified. Mildly increased interstitial opacities are seen within the left mid and upper lung. No large-volume pleural effusion. No pneumothorax. Chronic right clavicular fracture. No acute osseous abnormality. IMPRESSION: Severe background fibroemphysematous changes are present with increasing left upper lung pneumonitis versus fibrosis. Dictated on workstation # [id number] Dict: 07/13/2255 Trans: 07/13/22 09 [id number] Interpreted by: PÉREZ NOEL MD Electronically signed by: Departure Impression Primary Impression: COPD (chronic obstructive pulmonary disease) Qualified Codes: J44.1 - Chronic obstructive pulmonary disease with (acute) exacerbation Additional Impression: Chest pain Qualified Codes: R07.9 - Chest pain, unspecified Disposition: 01 HOME, SELF-CARE Condition: Improved Departure-Patient Inst. Decision time for Depature: 10:58 Referrals: JAY BAUTISTA MD (PCP/Family) Primary Care Physician Patient Instructions: COPD Exacerbation, Adult ED, How to Use a Metered Dose Inhaler ED Add. Discharge Instructions: Use the albuterol inhaler with a spacer 2 puffs every 4-6 hours as needed for wheezing and shortness of breath. Continue your home oxygen at 4 L/min all the time. You need to really quit smoking. Please absolutely do not smoke while you are wearing your oxygen. Doxycycline 100 mg twice a day for 10 days. This is your antibiotic. Tylenol with codeine cough syrup, take this as needed every 4-6 hours. Prednisone 50 mg once daily for the next 4 days. Return to the emergency department for any increased work of breathing/shortness of breath, high fever or other worsening, emergent concerns. Scripts Acetaminophen with Codeine (Acetaminop-Codeine 120-12 mg/5) 120 Mg-12 Mg/5 Ml (5 Ml) Solution 5 ML PO Q4H PRN for cough/pain, #100 EA Prov: MYA MORSE MD 07/13/22 Albuterol Sulfate (PROAIR HFA) 1 Puff Puff 2 PUFF IH Q4H PRN for shortness of breath, #1 EA 1 PUFF = 90 MCG Prov: MYA MORSE MD 07/13/22 Prednisone (Prednisone) 50 Mg Tab 50 MG PO DAILY, #4 TAB Prov: MYA MORSE MD 07/13/22 Doxycycline Hyclate (Doxycycline Hyclate) 100 Mg Tablet 100 MG PO BID, #19 TAB Prov: MYA MORSE MD 07/13/22 Copy Copies To 1: JAY BAUTISTA MD, KATHRYN M MD Jul 13, 2022 08:11
[2022-07-13] MEDS ORDERED: ONDANSETRON 4 MG/2 ML (SDV) Z0FRAN IVP ONE (08:15)
[2022-07-13] MEDS ORDERED: ASPIRIN 81 MG CHEW (CHILDREN'S ASA) PO STA (08:16)
[2022-07-13] MEDS ORDERED: morphine INJ 10 MG/ML 1ML (SYR OR VIAL) IVP STA ×2 (08:30→10:15)
[2022-07-13 08:31] LABS: BASOPHILS % (AUTO) 0 % (0-10); EOSINOPHILS # (AUTO) 0.2 10^3/uL (0.0-0.3); EOSINOPHILS % (AUTO) 1 % (0-10); HEMATOCRIT 42 % (40-54); HEMOGLOBIN 13.1 g/dL (13.3-17.7); LYMPHOCYTES # (AUTO) 1.8 10^3/uL (1.0-4.0); LYMPHOCYTES % (AUTO) 13 % (12-44); MEAN CORPUSCULAR HEMOGLOBIN 30 pg (25-34); MEAN CORPUSCULAR HGB CONC 31 g/dL (32-36); MEAN CORPUSCULAR VOLUME 96 fL (80-99); MEAN PLATELET VOLUME 8.9 fL (9.0-12.2); MONOCYTES # (AUTO) 0.8 10^3/uL (0.0-1.0); MONOCYTES % (AUTO) 6 % (0-12); NEUTROPHILS # (AUTO) 10.7 10^3/uL (1.8-7.8); NEUTROPHILS % (AUTO) 79 % (42-75); PLATELET COUNT 405 10^3/uL (130-400); WHITE BLOOD COUNT 13.5 10^3/uL (4.3-11.0)
[2022-07-13 08:43] LABS: ALBUMIN 4.4 GM/DL (3.2-4.5)
[2022-07-13 08:44] LABS: POTASSIUM 4.8 MMOL/L (3.6-5.0)
[2022-07-13 08:45] LABS: CALCIUM 9.9 MG/DL (8.5-10.1)
[2022-07-13 08:46] LABS: INR 0.9 (0.8-1.4); PROTHROMBIN TIME PATIENT 12.8 SEC (12.2-14.7); TOTAL PROTEIN 7.9 GM/DL (6.4-8.2)
[2022-07-13 08:48] LABS: BILIRUBIN,TOTAL 0.3 MG/DL (0.1-1.0)
[2022-07-13 08:50] LABS: CREATININE SERUM 0.69 MG/DL (0.60-1.30)
[2022-07-13 08:52] LABS: MAGNESIUM 2.2 MG/DL (1.6-2.4)
--- NOTE | 2022-07-13 09:02 | Diagnostic Imaging Report ---
INDICATION: Chest pain. COMPARISON: 04/20/2022. TECHNIQUE: Single radiograph of the chest dated 07/13/2022. FINDINGS: The cardiac silhouette is within normal limits in size. No significant pulmonary vascular congestion. Severe background emphysematous changes with scattered regions of scarring and fibrosis are again identified. Mildly increased interstitial opacities are seen within the left mid and upper lung. No large-volume pleural effusion. No pneumothorax. Chronic right clavicular fracture. No acute osseous abnormality. IMPRESSION: Severe background fibroemphysematous changes are present with increasing left upper lung pneumonitis versus fibrosis. Dictated by: Dictated on workstation # [id number]
[2022-07-13] MEDS ORDERED: RT-ALBUTEROL SULF 2.5 MG/3 ML PRE-MIX VIAL INH ONE (09:30)
[2022-07-13] MEDS ORDERED: DOXYCYCLINE 100 MG (VIBRAMYCIN) TABLET PO STA (09:53)
[2022-07-13] MEDS ORDERED: predniSONE 20 MG TAB PO ONE (10:00)
[2022-07-13] MEDS ORDERED: ALBU8.5H6 IH (11:02)
[2022-07-13] MEDS ORDERED: DOXY100T2 PO (11:02)
[2022-07-13] MEDS ORDERED: ACET5ELI PO (11:02)
[2022-07-13] MEDS ORDERED: PRD50T PO (11:02)
[2022-07-13 11:20] VITALS: BP 127/83
== END 2022-07-13 11:20 | disposition home or self-care (01) ==
LOC: EDUNIT# 08:00 → ER 08:01
DX: J44.9 Chronic obstructive pulmonary disease, unspecified (principal); D72.829 Elevated white blood cell count, unspecified; F17.200 Nicotine dependence, unspecified, uncomplicated; Z99.81 Dependence on supplemental oxygen; Z20.822 Contact with and (suspected) exposure to COVID-19
CPT/HCPCS: 36415; 71045; 80053; 83735; 83874; 84484; 85025; 85610; 85730; 87636; 93005; 93041; 96374; 96375; 96376

== ENCOUNTER 2022-08-11 02:54 | Emergency (ER) | payer MEDICARE ==
[~2022-08-11] VITALS: Ht 178 cm; Wt 54.0 kg
[~2022-08-11 02:54] MED LIST changes: +ACET5ELI PO; +ALBU8.5H6 IH; +DOXY100T2 PO; +PRD50T PO
[2022-08-11] MEDS ORDERED: NS IV 1000 ML 1,000 ML IV SCH (03:45)
[2022-08-11] MEDS ORDERED: fentaNYL INJ 100 MCG/2 ML AMP IVP ONE (03:45)
--- NOTE | 2022-08-11 03:49 | ED Abdominal Pain ---
General Chief Complaint: Abdominal/GI Problems Stated Complaint: CONSTIPATION Nursing Triage Note: [email or web address]o [facility], constipation. last bm 3-4 days ago. Source of Information: Patient Exam Limitations: No Limitations History of Present Illness Date Seen by Provider: Aug 11, 2022 Time Seen by Provider: 03:38 Initial Comments Patient is a 61-year-old male who presents to the emergency room with a chief complaint of severe abdominal cramping. Patient states that he is severely constipated. Its been that way for about 3 or 4 days. He has been trying some medications for constipation by mouth. He has had no relief. He states that he has the urge to go to the bathroom but cannot. He denies nausea or vomiting. No fevers or chills. No prior abdominal surgeries. He has a history of severe COPD on chronic oxygen therapy. Continues to smoke. The pain comes in waves. He states he is able to urinate but not as much is normal. Has not tried any enemas or MiraLAX. All other review of systems reviewed and negative except as stated. Timing/Duration: 3-4 Days Severity/Quality: Severe, Cramping Location: Generalized Abdomen Radiation: No Radiation Activities at Onset: None Associated Symptoms: Denies Symptoms Allergies and Home Medications Allergies Coded Allergies: No Known Drug Allergies (Verified , 07/11/09) Patient Home Medication List Home Medication List Reviewed: Yes Acetaminophen with Codeine (Acetaminop-Codeine 120-12 mg/5) 120 Mg-12 Mg/5 Ml (5 Ml) Solution, 5 ML PO Q4H PRN for cough/pain Prescribed by: MYA MORSE on 07/13/22 1103 Albuterol Sulfate (Ventolin Hfa) 18 Gm Hfa.aer.ad, 2 PUFF INH Q6H PRN for SHORTNESS OF BREATH, (Reported) Entered as Reported by: PRISCILLA DELGADO on 11/04/21 1557 Albuterol Sulfate (Ventolin Hfa) 1 Puff Puff, 2 PUFF IH Q4H PRN for shortness of breath Prescribed by: MYA MORSE on 07/13/22 1102 Alprazolam (Alprazolam) 0.5 Mg Tablet, 0.5 MG PO Q8H PRN for ANXIETY, (Reported) Entered as Reported by: PRISCILLA DELGADO on 11/04/21 1557 Atorvastatin Calcium (Atorvastatin Calcium) 40 Mg Tablet, 40 MG PO DAILY, (Reported) Entered as Reported by: PRISCILLA DELGADO on 03/06/22 1145 Baclofen (Baclofen) 10 Mg Tablet, 10 MG PO BID PRN for MUSCLE SPASMS, (Reported) Entered as Reported by: PRISCILLA DELGADO on 11/04/21 1557 Digoxin (Digoxin) 125 Mcg (0.125 Mg) Tablet, 250 MCG PO DAILY, (Reported) Entered as Reported by: PRISCILLA DELGADO on 04/20/22 1146 Doxycycline Hyclate (Doxycycline Hyclate) 100 Mg Tablet, 100 MG PO BID Prescribed by: MYA MORSE on 07/13/22 1102 Duloxetine HCl (Duloxetine HCl) 60 Mg Capsule.dr, 60 MG PO DAILY, (Reported) Entered as Reported by: PRISCILLA DELGADO on 12/22/20 1254 Ferrous Sulfate (Iron) 325 Mg (65 Mg Iron) Tablet, 325 MG PO DAILY, (Reported) Entered as Reported by: PRISCILLA DELGADO on 04/20/22 1146 Furosemide (Furosemide) 40 Mg Tablet, 40 MG PO DAILY, (Reported) Entered as Reported by: PRISCILLA DELGADO on 03/06/22 114 Gabapentin (Gabapentin) 400 Mg Capsule, 400 MG PO TID, (Reported) Entered as Reported by: PRISCILLA DELGADO on 11/04/21 155 Ipratropium/Albuterol Sulfate (Iprat-Albut 0.5-3(2.5) mg/3 ml) 0.5 Mg-3 Mg (2.5 Mg Base)/3 Ml Ampul.neb, 3 ML IH BID PRN for SHORTNESS OF BREATH, (Reported) Entered as Reported by: PRISCILLA DELGADO on 03/06/22 1145 Oxycodone HCl (Oxycodone HCl) 5 Mg Tablet, 5 MG PO Q6H PRN for PAIN-SEVERE (8- 10), (Reported) Entered as Reported by: PRISCILLA DELGADO on 11/04/21 1557 Potassium Chloride (Potassium Chloride) 20 Meq Tab.er.prt, 20 MEQ PO DAILY, (Reported) Entered as Reported by: PRISCILLA DELGADO on 03/06/22 1145 Prednisone (Prednisone) 50 Mg Tab, 50 MG PO DAILY Prescribed by: MYA MORSE on 07/13/22 1102 Rivaroxaban (Xarelto) 20 Mg Tablet, 20 MG PO DAILY, (Reported) Entered as Reported by: PRISCILLA DELGADO on 12/22/20 1254 Review of Systems Review of Systems Constitutional: see HPI EENTM: No Symptoms Reported Respiratory: Shortness of Air (chronic) Cardiovascular: No Symptoms Reported Gastrointestinal: Constipated Genitourinary: Other (decreased output) Musculoskeletal: no symptoms reported Skin: no symptoms reported All Other Systems Reviewed Negative Unless Noted: Yes Past Llzjhay-Kejdej-Fvkdnf Hx Patient Social History Tobacco Use?: Yes Substance use?: Yes Substance type: Marijuana Alcohol Use?: No Pt feels they are or have been: No Immunizations Up To Date Tetanus Booster (TDap): Less than 5yrs PED Vaccines UTD: No First/Initial COVID19 Vaccinat: 01/06 Second COVID19 Vaccination Hemanth: 02/05 Third COVID19 Vaccination Date: FEBRUARY Seasonal Allergies Seasonal Allergies: Yes (hayfever) Past Medical History Surgery/Hospitalization HX: AFIB, HTN, COPD, ANEMIA, CAD, CHRONIC RESPIRATORY FAILLURE WITH HYPPOXIA PNEUMONIA ortho heart cath stents, LUNG MASS, Surgeries: Yes (hernia repair, l ankle, l wrist, ) Orthopedic Respiratory: Yes Pneumonia, COPD Currently Using CPAP: No Currently Using BIPAP: No Cardiac: Yes Atrial Fibrillation, Deep Vein Thrombosis, Hypertension Neurological: Yes (neuralgia) Neuropathy Sexually Transmitted Disease: No HIV/AIDS: No Genitourinary: No Renal Failure Gastrointestinal: Yes Abdominal Hernia, Gastrointestinal Bleed Musculoskeletal: No Chronic Back Pain Endocrine: No HEENT: No (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 oz. kg; 17.00 BMI Method: General Appearance: thin, other (appears chronically ill) HEENT: PERRL/EOMI Respiratory: no respiratory distress, no accessory muscle use, wheezing (scattered exp wheezes) Cardiovascular: regular rate, rhythm Gastrointestinal: abnormal bowel sounds (hyperactive), guarding (voluntary), tenderness (LLQ) Extremities: normal range of motion, normal inspection, no pedal edema Neurologic/Psychiatric: no motor/sensory deficits, alert, normal mood/affect, oriented x 3 Skin: normal color, warm/dry Procedures/Interventions Date of ETT Placement: Apr 19, 2022 Time of ETT Placement: 1400 Progress/Results/Core Measures Results/Orders Lab Results Laboratory Tests Test 08/11/22 03:05 Range/Units White Blood Count 8.4 4.3-11.0 10^3/uL Red Blood Count 4.00 L 4.30-5.52 10^6/uL Hemoglobin 12.1 L 13.3-17.7 g/dL Hematocrit 37 L 40-54 % Mean Corpuscular Volume 92 80-99 fL Mean Corpuscular Hemoglobin 30 25-34 pg Mean Corpuscular Hemoglobin Concent 33 32-36 g/dL Red Cell Distribution Width 14.6 H 10.0-14.5 % Platelet Count 458 H 130-400 10^3/uL Mean Platelet Volume 9.5 9.0-12.2 fL Immature Granulocyte % (Auto) 0 % Neutrophils (%) (Auto) 56 42-75 % Lymphocytes (%) (Auto) 31 12-44 % Monocytes (%) (Auto) 9 0-12 % Eosinophils (%) (Auto) 4 0-10 % Basophils (%) (Auto) 1 0-10 % Neutrophils # (Auto) 4.7 1.8-7.8 10^3/uL Lymphocytes # (Auto) 2.6 1.0-4.0 10^3/uL Monocytes # (Auto) 0.8 0.0-1.0 10^3/uL Eosinophils # (Auto) 0.3 0.0-0.3 10^3/uL Basophils # (Auto) 0.0 0.0-0.1 10^3/uL Immature Granulocyte # (Auto) 0.0 0.0-0.1 10^3/uL Sodium Level 138 135-145 MMOL/L Potassium Level 4.2 3.6-5.0 MMOL/L Chloride Level 99 98-107 MMOL/L Carbon Dioxide Level 26 21-32 MMOL/L Anion Gap 13 5-14 MMOL/L Blood Urea Nitrogen 14 7-18 MG/DL Creatinine 0.65 0.60-1.30 MG/DL Estimat Glomerular Filtration Rate 109 BUN/Creatinine Ratio 22 Glucose Level 103 70-105 MG/DL Calcium Level 9.2 8.5-10.1 MG/DL Corrected Calcium 9.3 8.5-10.1 MG/DL Total Bilirubin 0.3 0.1-1.0 MG/DL Aspartate Amino Transf (AST/SGOT) 24 5-34 U/L Alanine Aminotransferase (ALT/SGPT) 31 0-55 U/L Alkaline Phosphatase 86 40-136 U/L Total Protein 6.9 6.4-8.2 GM/DL Albumin 3.9 3.2-4.5 GM/DL Lipase 26 8-78 U/L My Orders Orders - MYA MORSE MD Ed Iv/Invasive Line Start (08/11/22 03:44) Cbc With Automated Diff (08/11/22 03:44) Comprehensive Metabolic Panel (08/11/22 03:44) Lipase (08/11/22 03:44) Fecal Occult Bedside (08/11/22 03:44) Ns Iv 1000 Ml (Sodium Chloride 0.9%) (08/11/22 03:45) Fentanyl Inj (Sublimaze Injection) (08/11/22 03:45) Medications Given in ED Current Medications Medications Dose Ordered Sig/David Route Start Time Stop Time Status Last Admin Dose Admin Fentanyl Citrate 50 mcg ONCE ONCE IVP 08/11/22 03:45 08/11/22 03:46 DC 08/11/22 04:03 50 MCG Vital Signs/I&O 08/11/22 02:55 Temp 35.9 Pulse 82 Resp 16 B/P (MAP) 110/96 (101) Pulse Ox 98 O2 Delivery Nasal Cannula O2 Flow Rate 4.00 Blood Pressure Mean: 101 Progress Progress Note #1: Time: 04:30 Progress Note Rectal exam done on patient after basic labs obtained and reviewed and normal. He had COPIOUS amounts of solid hard stool at the rectum. Manual disimpaction done with ALOT of stool removed. I removed all the hard stool until we got to softer stool. He got significant relief from the disimpaction. Will give him a few moments to recover and then get him up to the beside commode to see if he can evacuate a little more. stool was hemoccult positive however stool was all dark brown - I think the positive is because he has been straining so much to go. Progress Note #2: Time: 04:59 Progress Note after disimpaction and given time to rest, patient passed, on his own, a HUGE amount of soft formed stool. Feels much better. home with instructions to start stool softeners twice a day, daily. increase water intake. and return precautions provided. Departure Impression Primary Impression: Fecal impaction in rectum Additional Impression: Rectal pain Disposition: 01 HOME, SELF-CARE Condition: Improved Departure-Patient Inst. Decision time for Depature: 04:33 Referrals: JAY BAUTISTA MD (PCP/Family) Primary Care Physician Patient Instructions: Fecal Impaction (DC) Add. Discharge Instructions: STart a stool softener such as COLACE or SURFAK twice a day. Continue your daily medications as prescribed. Follow up with your primary care doctor for further evaluation of this episode of constipation. REturn to the Emergency Department for any new, concerning or emergent complaints. Copy Copies To 1: JAY BAUTISTA MD, KATHRYN M MD Aug 11, 2022 03:49
[2022-08-11 03:52] LABS: BASOPHILS % (AUTO) 1 % (0-10); EOSINOPHILS # (AUTO) 0.3 10^3/uL (0.0-0.3); EOSINOPHILS % (AUTO) 4 % (0-10); HEMATOCRIT 37 % (40-54); HEMOGLOBIN 12.1 g/dL (13.3-17.7); LYMPHOCYTES # (AUTO) 2.6 10^3/uL (1.0-4.0); LYMPHOCYTES % (AUTO) 31 % (12-44); MEAN CORPUSCULAR HEMOGLOBIN 30 pg (25-34); MEAN CORPUSCULAR HGB CONC 33 g/dL (32-36); MEAN CORPUSCULAR VOLUME 92 fL (80-99); MEAN PLATELET VOLUME 9.5 fL (9.0-12.2); MONOCYTES # (AUTO) 0.8 10^3/uL (0.0-1.0); MONOCYTES % (AUTO) 9 % (0-12); NEUTROPHILS # (AUTO) 4.7 10^3/uL (1.8-7.8); NEUTROPHILS % (AUTO) 56 % (42-75); PLATELET COUNT 458 10^3/uL (130-400); WHITE BLOOD COUNT 8.4 10^3/uL (4.3-11.0)
[2022-08-11 03:53] LABS: ALBUMIN 3.9 GM/DL (3.2-4.5)
[2022-08-11 03:54] LABS: POTASSIUM 4.2 MMOL/L (3.6-5.0)
[2022-08-11 03:55] LABS: CALCIUM 9.2 MG/DL (8.5-10.1)
[2022-08-11 03:56] LABS: TOTAL PROTEIN 6.9 GM/DL (6.4-8.2)
[2022-08-11 03:58] LABS: BILIRUBIN,TOTAL 0.3 MG/DL (0.1-1.0)
[2022-08-11 04:00] LABS: CREATININE SERUM 0.65 MG/DL (0.60-1.30)
[2022-08-11 05:02] VITALS: BP 129/87
== END 2022-08-11 05:06 | disposition home or self-care (01) ==
LOC: EDUNIT# 02:54 → ER 02:55
DX: K56.41 Fecal impaction (principal); J44.9 Chronic obstructive pulmonary disease, unspecified; F17.200 Nicotine dependence, unspecified, uncomplicated; Z99.81 Dependence on supplemental oxygen
CPT/HCPCS: 36415; 80053; 82274; 83690; 85025; 96361; 96374

== ENCOUNTER 2022-10-24 01:49 | Emergency (ER) | payer MEDICARE ==
[~2022-10-24] VITALS: Ht 175.3 cm; Wt 54.4 kg
[2022-10-24] MEDS ORDERED: RT-ALBUTEROL HFA 8.5 GM INHALER IH STA (02:08)
[2022-10-24] MEDS ORDERED: methylPREDNISolone 125 MG (Solu-MEDROL) VIAL IVP ONE (02:15)
[2022-10-24] MEDS ORDERED: fentaNYL INJ 100 MCG/2 ML AMP IVP ONE (02:15)
[2022-10-24 02:20] LABS: BASOPHILS # (AUTO) 0.1 10^3/uL (0.0-0.1); BASOPHILS % (AUTO) 1 % (0-10); EOSINOPHILS # (AUTO) 0.3 10^3/uL (0.0-0.3); EOSINOPHILS % (AUTO) 4 % (0-10); HEMATOCRIT 26 % (40-54); HEMOGLOBIN 8.2 g/dL (13.3-17.7); LYMPHOCYTES % (AUTO) 20 % (12-44); MEAN CORPUSCULAR HEMOGLOBIN 28 pg (25-34); MEAN CORPUSCULAR HGB CONC 31 g/dL (32-36); MEAN CORPUSCULAR VOLUME 90 fL (80-99); MEAN PLATELET VOLUME 9.8 fL (9.0-12.2); MONOCYTES # (AUTO) 0.8 10^3/uL (0.0-1.0); MONOCYTES % (AUTO) 8 % (0-12); NEUTROPHILS # (AUTO) 6.6 10^3/uL (1.8-7.8); NEUTROPHILS % (AUTO) 67 % (42-75); PLATELET COUNT 415 10^3/uL (130-400); WHITE BLOOD COUNT 9.8 10^3/uL (4.3-11.0)
[2022-10-24 02:32] LABS: INR 2.3 (0.8-1.4); POTASSIUM 3.9 MMOL/L (3.6-5.0); PROTHROMBIN TIME PATIENT 25.6 SEC (12.2-14.7)
[2022-10-24 02:33] LABS: CALCIUM 8.8 MG/DL (8.5-10.1)
[2022-10-24 02:36] LABS: BILIRUBIN,TOTAL 0.2 MG/DL (0.1-1.0)
[2022-10-24 02:38] LABS: CREATININE SERUM 0.72 MG/DL (0.60-1.30)
--- NOTE | 2022-10-24 04:14 | ED General ---
General Chief Complaint: Respiratory Problems Stated Complaint: COPD EXACERBATION Nursing Triage Note: PT TO RM 8 VIA [facility] FROM HOME W C/O DIFFICULTY BREATHING WORSE W EXERTION AND CP. SYMPTOMS WORSENING OVER "THE PAST FEW DAYS." PT A&OX4, 4LNC AT ALL TIMES, 18G LEFT FOREARM SL INITIATED BY [facility] PATENT UPON ARRIVAL TO ED. Source of Information: Patient Exam Limitations: No Limitations (MIRYAM OLVERA MD) History of Present Illness Date Seen by Provider: Oct 24, 2022 Time Seen by Provider: 01:52 Initial Comments This 62-year-old gentleman presents to the emergency room with complaints of chest pain and shortness of breath. Chest pain is worse with deep breathing and palpation, especially in the left mid chest. He has known COPD and wears oxygen 4 L per nasal cannula at home. EMS reports he had a drop of oxygen saturation down to 86 with transferring him to their cot and the ambulance. Oxygen saturation resuscitated to 98% on 5 L in the ambulance. He has not taken any medications for his pain. He does continue to smoke. He has been feeling ill for a couple of days. He reports nearly passing out today when he was off his oxygen briefly to go into the kitchen. Patient has history of atrial fibrillation and is on Xarelto. Patient later states he has also been having left upper quadrant abdominal pain for which he has been evaluated on an outpatient basis. He recently had a CT scan obtained through the [place] outpatient [facility]. He does not know the results of that scan. (MIRYAM OLVERA MD) Allergies and Home Medications Allergies Coded Allergies: No Known Drug Allergies (Verified , 07/11/09) Patient Home Medication List Home Medication List Reviewed: Yes (MIRYAM OLVERA MD) Acetaminophen with Codeine (Acetaminop-Codeine 120-12 mg/5) 120 Mg-12 Mg/5 Ml (5 Ml) Solution, 5 ML PO Q4H PRN for cough/pain Prescribed by: MYA MORSE on 07/13/22 1103 Albuterol Sulfate (Ventolin Hfa) 18 Gm Hfa.aer.ad, 2 PUFF INH Q6H PRN for SHORTNESS OF BREATH, (Reported) Entered as Reported by: PRISCILLA DELGADO on 11/04/21 1557 Albuterol Sulfate (Ventolin Hfa) 1 Puff Puff, 2 PUFF IH Q4H PRN for shortness of breath Prescribed by: MYA MORSE on 07/13/22 1102 Alprazolam (Alprazolam) 0.5 Mg Tablet, 0.5 MG PO Q8H PRN for ANXIETY, (Reported) Entered as Reported by: PRISCILLA DELGADO on 11/04/21 1557 Atorvastatin Calcium (Atorvastatin Calcium) 40 Mg Tablet, 40 MG PO DAILY, (Reported) Entered as Reported by: PRISCILLA DELGADO on 03/06/22 1145 Baclofen (Baclofen) 10 Mg Tablet, 10 MG PO BID PRN for MUSCLE SPASMS, (Reported) Entered as Reported by: PRISCILLA DELGADO on 11/04/21 155 Cefdinir (Cefdinir) 300 Mg Capsule, 300 MG PO BID Prescribed by: DOREEN CARRILLO on 10/24/22 0745 Digoxin (Digoxin) 125 Mcg (0.125 Mg) Tablet, 250 MCG PO DAILY, (Reported) Entered as Reported by: PRISCILLA DELGADO on 04/20/22 1146 Doxycycline Hyclate (Doxycycline Hyclate) 100 Mg Tablet, 100 MG PO BID Prescribed by: MYA MORSE on 07/13/22 1102 Duloxetine HCl (Duloxetine HCl) 60 Mg Capsule.dr, 60 MG PO DAILY, (Reported) Entered as Reported by: PRISCILLA DELGADO on 12/22/20 1254 Ferrous Sulfate (Iron) 325 Mg (65 Mg Iron) Tablet, 325 MG PO DAILY, (Reported) Entered as Reported by: PRISCILLA DELGADO on 04/20/22 1146 Furosemide (Furosemide) 40 Mg Tablet, 40 MG PO DAILY, (Reported) Entered as Reported by: PRISCILLA DELGADO on 03/06/22 1145 Gabapentin (Gabapentin) 400 Mg Capsule, 400 MG PO TID, (Reported) Entered as Reported by: PRISCILLA DELGADO on 11/04/21 155 Ipratropium/Albuterol Sulfate (Iprat-Albut 0.5-3(2.5) mg/3 ml) 0.5 Mg-3 Mg (2.5 Mg Base)/3 Ml Ampul.neb, 3 ML IH BID PRN for SHORTNESS OF BREATH, (Reported) Entered as Reported by: PRISCILLA DELGADO on 03/06/22 1145 Methylprednisolone (Methylprednisolone Dose Pack) 4 Mg Tab.ds.pk, 4 MG PO UD Prescribed by: DOREEN CARRILLO on 10/24/22 0745 Oxycodone HCl (Oxycodone HCl) 5 Mg Tablet, 5 MG PO Q6H PRN for PAIN-SEVERE (8- 10), (Reported) Entered as Reported by: PRISCILLA DELGADO on 11/04/21 1557 Potassium Chloride (Potassium Chloride) 20 Meq Tab.er.prt, 20 MEQ PO DAILY, (Reported) Entered as Reported by: PRISCILLA DELGADO on 03/06/22 1145 Prednisone (Prednisone) 50 Mg Tab, 50 MG PO DAILY Prescribed by: MYA MORSE on 07/13/22 1102 Rivaroxaban (Xarelto) 20 Mg Tablet, 20 MG PO DAILY, (Reported) Entered as Reported by: PRISCILLA DELGADO on 12/22/20 1254 Tramadol HCl (Tramadol HCl) 50 Mg Tablet, 50 MG PO Q6H PRN for PAIN Prescribed by: DOREEN CARRILLO on 10/24/22 0827 Review of Systems Review of Systems Constitutional: no symptoms reported EENTM: no symptoms reported Respiratory: see HPI Cardiovascular: see HPI Gastrointestinal: no symptoms reported Genitourinary: no symptoms reported Musculoskeletal: no symptoms reported Skin: no symptoms reported Psychiatric/Neurological: No Symptoms Reported Hematologic/Lymphatic: No Symptoms Reported (MIRYAM OLVERA MD) Past Vgbxewu-Sqccbb-Ogwyxc Hx Patient Social History Tobacco Use?: Yes Tobacco type used: Cigarettes Smoking Status: Current Everyday Smoker Use of E-Cig and/or Vaping dev: No Substance use?: No Alcohol Use?: No (MIRYAM OLVERA MD) Immunizations Up To Date Tetanus Booster (TDap): Less than 5yrs PED Vaccines UTD: No Influenza Vaccine Up-to-Date: Yes; Up-to-Date First/Initial COVID19 Vaccinat: 01/06 Second COVID19 Vaccination Hemanth: 02/05 Third COVID19 Vaccination Date: 2021 COVID19 Vaccine Rn Coronary Care Unit: [facility] (MIRYAM OLVERA MD) Seasonal Allergies Seasonal Allergies: Yes (hayfever) (MIRYAM OLVERA MD) Past Medical History Surgery/Hospitalization HX: AFIB, HTN, COPD, ANEMIA, CAD, CHRONIC RESPIRATORY FAILURE WITH HYPOXIA PNEUMONIA ortho heart cath stents, LUNG MASS Surgeries: Yes (hernia repair, l ankle, l wrist, ) Abdominal, Orthopedic Respiratory: Yes Pneumonia, COPD (Oxygen dependent) Currently Using CPAP: No Currently Using BIPAP: No Cardiac: Yes Atrial Fibrillation, Deep Vein Thrombosis, Hypertension Neurological: Yes (neuralgia) Neuropathy Sexually Transmitted Disease: No HIV/AIDS: No Genitourinary: Yes Renal Failure Gastrointestinal: Yes Abdominal Hernia, Gastrointestinal Bleed Musculoskeletal: Yes Chronic Back Pain Endocrine: No HEENT: No (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) Tinnitis Loss of Vision: Denies Hearing Impairment: Deaf Cancer: No Psychosocial: No Integumentary: No Recent Skin Changes Blood Disorders: No Adverse Reaction/Blood Tranf: No (MIRYAM OLVERA MD) Family Medical History Alcoholism 19 FATHER 19 MOTHER Arthritis 19 FATHER 19 MOTHER No Pertinent Family Hx, Other Conditions/Hx (MIRYAM OLVERA MD) Physical Exam Vital Signs Vital Signs - First Documented 10/24/22 01:54 Temp 36.1 Pulse 70 Resp 22 B/P (MAP) 110/56 (74) Pulse Ox 98 O2 Delivery Nasal Cannula O2 Flow Rate 4.00 (DOREEN CARRILLO MD) Vital Signs Capillary Refill : (MIRYAM OLVERA MD) Height, Weight, BMI Height: '" Weight: lbs. oz. 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 Norm as Tested Skin: Normal Color, Warm/Dry (MIRYAM OLVERA MD) Procedures/Interventions Date of ETT Placement: Apr 19, 2022 Time of ETT Placement: 1400 (MIRYAM OLVERA MD) Progress/Results/Core Measures Suspected Sepsis SIRS Temperature: Pulse: 70 Respiratory Rate: 22 Laboratory Tests 10/24/22 01:55: White Blood Count 9.8 Blood Pressure 110 /56 Mean: 74 Laboratory Tests 10/24/22 01:55: Creatinine 0.72, INR Comment 2.3H, Platelet Count 415H, Total Bilirubin 0.2 (MIRYAM OLVERA MD) Results/Orders Lab Results Laboratory Tests Test 10/24/22 01:55 10/24/22 02:09 Range/Units White Blood Count 9.8 4.3-11.0 10^3/uL Red Blood Count 2.89 L 4.30-5.52 10^6/uL Hemoglobin 8.2 L 13.3-17.7 g/dL Hematocrit 26 L 40-54 % Mean Corpuscular Volume 90 80-99 fL Mean Corpuscular Hemoglobin 28 25-34 pg Mean Corpuscular Hemoglobin Concent 31 L 32-36 g/dL Red Cell Distribution Width 14.4 10.0-14.5 % Platelet Count 415 H 130-400 10^3/uL Mean Platelet Volume 9.8 9.0-12.2 fL Immature Granulocyte % (Auto) 1 % Neutrophils (%) (Auto) 67 42-75 % Lymphocytes (%) (Auto) 20 12-44 % Monocytes (%) (Auto) 8 0-12 % Eosinophils (%) (Auto) 4 0-10 % Basophils (%) (Auto) 1 0-10 % Neutrophils # (Auto) 6.6 1.8-7.8 10^3/uL Lymphocytes # (Auto) 2.0 1.0-4.0 10^3/uL Monocytes # (Auto) 0.8 0.0-1.0 10^3/uL Eosinophils # (Auto) 0.3 0.0-0.3 10^3/uL Basophils # (Auto) 0.1 0.0-0.1 10^3/uL Immature Granulocyte # (Auto) 0.1 0.0-0.1 10^3/uL Prothrombin Time 25.6 H 12.2-14.7 SEC INR Comment 2.3 H 0.8-1.4 Activated Partial Thromboplast Time 49 H 24-35 SEC D-Dimer < 0.22 0.00-0.49 UG/ML Sodium Level 136 135-145 MMOL/L Potassium Level 3.9 3.6-5.0 MMOL/L Chloride Level 96 L 98-107 MMOL/L Carbon Dioxide Level 29 21-32 MMOL/L Anion Gap 11 5-14 MMOL/L Blood Urea Nitrogen 12 7-18 MG/DL Creatinine 0.72 0.60-1.30 MG/DL Estimat Glomerular Filtration Rate 105 BUN/Creatinine Ratio 17 Glucose Level 91 70-105 MG/DL Calcium Level 8.8 8.5-10.1 MG/DL Corrected Calcium 8.8 8.5-10.1 MG/DL Magnesium Level 2.0 1.6-2.4 MG/DL Total Bilirubin 0.2 0.1-1.0 MG/DL Aspartate Amino Transf (AST/SGOT) 24 5-34 U/L Alanine Aminotransferase (ALT/SGPT) 24 0-55 U/L Alkaline Phosphatase 78 40-136 U/L Myoglobin 157.5 H 10.0-92.0 NG/ML Troponin I < 0.028 <0.028 NG/ML C-Reactive Protein High Sensitivity 0.56 H 0.00-0.50 MG/DL B-Type Natriuretic Peptide 120.3 H <100.0 PG/ML Total Protein 7.0 6.4-8.2 GM/DL Albumin 4.0 3.2-4.5 GM/DL Lipase 23 8-78 U/L Influenza Type A (RT-PCR) Not Detected Not Detecte Influenza Type B (RT-PCR) Not Detected Not Detecte SARS-CoV-2 RNA (RT-PCR) Not Detected Not Detecte (DOREEN CARRILLO MD) My Orders Orders - DOREEN CARRILLO MD Ceftriaxone 1 Gm Pre-Mix (Rocephin 1 Gm (10/24/22 07:20) Doxycycline Hyclate Tablet (Vibramycin T (10/24/22 07:20) (DOREEN CARRILLO MD) Medications Given in ED Current Medications Medications Dose Ordered Sig/David Route Start Time Stop Time Status Last Admin Dose Admin Al Hydrox/Mg Hydrox/Simethicone 30 ml ONCE ONCE PO 10/24/22 06:30 10/24/22 06:31 DC 10/24/22 06:27 30 ML Albuterol/ Ipratropium 3 ml ONCE ONCE INH 10/24/22 05:00 2/7/23 05:01 DC 10/24/22 05:03 3 ML Fentanyl Citrate 50 mcg ONCE ONCE IVP 10/24/22 02:15 10/24/22 02:16 DC 10/24/22 02:40 50 MCG Iohexol 100 ml ONCE ONCE IV 10/24/22 07:30 10/24/22 07:31 DC 10/24/22 07:21 70 ML Lidocaine HCl 15 ml ONCE ONCE PO 10/24/22 06:30 10/24/22 06:31 DC 10/24/22 06:27 15 ML Methylprednisolone Sodium Succinate 125 mg ONCE ONCE IVP 10/24/22 02:15 10/24/22 02:16 DC 10/24/22 02:39 125 MG Ondansetron HCl 4 mg ONCE ONCE IVP 10/24/22 06:30 10/24/22 06:31 DC 10/24/22 06:27 4 MG Sodium Chloride 100 ml ONCE ONCE IV 10/24/22 07:30 10/24/22 07:31 DC 10/24/22 07:21 70 ML (DOREEN CARRILLO MD) Vital Signs/I&O 10/24/22 01:54 Temp 36.1 Pulse 70 Resp 22 B/P (MAP) 110/56 (74) Pulse Ox 98 O2 Delivery Nasal Cannula O2 Flow Rate 4.00 (DOREEN CARRILLO MD) Vital Signs/I&O Capillary Refill : (MIRYAM OLVERA MD) Blood Pressure Mean: 74 Progress Note : Time: 06:36 Progress Note Patient was interviewed and examined upon arrival. He was given an albuterol inhaler. After review of negative influenza and COVID-19 screening, DuoNeb was ordered. Respiratory symptoms improved but he continued to have chest pain. Pain was treated with fentanyl and morphine. He still continued to have notable residual chest pain after these interventions. His chart was reviewed, and prior EGD was found demonstrating esophageal ulcer, gastritis, and hiatal hernia. We will further treat his pain with a GI cocktail. Patient was noted to have significant anemia. CT angiogram of the chest without angiogram abdomen and pelvis CT is being obtained for further evaluation of his pain. Care of this patient is being transitioned to Dr. Carrillo at this time. (MIRYAM OLVERA MD) Progress Note : Progress Note Received the patient in signout pending the CT imaging. On my interpretation there does appear to be a small infiltrate in his right lung on the CT imaging with no central pulmonary embolus. I personally evaluated the patient and his oxygen was on 5 L when I walked in the room satting 99%. Given his severe emphysema, I began titrating his oxygen down. I was able to get him onto room air with his oxygen saturation with fairly rapid conversation staying around 90%. I did turn him up to 1 L for comfort. The patient confirms that he does wear oxygen at home and it is able to go as high as roughly 8 L if he needs. I gave him IV ceftriaxone and oral doxycycline while here. I will send him home with a prescription antibiotics and steroids. He does have a nebulizer with DuoNeb at home. He states previously he is just using them twice a day as needed. I counseled him to use this at least every 2-4 hours for the next day or 2 while he is trying to improve. I want him to follow-up with his regular doctor in the next couple of days. I did public relations counselor the patient on his severe emphysema and his continued smoking. Discussed that he is likely close to end- stage and may not survive much longer, especially given he continues to smoke. I believe he is otherwise stable for discharge with outpatient follow-up. He was sent home with strict return precautions (DOREEN CARRILLO MD) ECG Initial ECG Impression Date: Oct 24, 2022 Initial ECG Impression Time: 02:04 Initial ECG Rate: 67 Initial ECG Rhythm: Normal Sinus Initial ECG Intervals: Normal Initial ECG Impression: Normal Comment Normal sinus rhythm with no ST elevation or depression. No abnormal intervals or axis deviation (MIRYAM OLVERA MD) Diagnostic Imaging Diagonstic Imaging: Xray Plain Films/CT/US/NM/MRI: chest Comments Chest x-ray reviewed by me. Report not yet available. There appears to be some subtle opacity in the right lower lung. Lungs are hyperinflated consistent with COPD. Otherwise, no acute changes from prior. (MIRYAM OLVERA MD) Diagonstic Imaging: CT (CTA chest and CT abd/pelvis with) Comments NAME: A[facility]ENIO [facility] REC#: [id number] PT STATUS: REG ER : 1960 PHYSICIAN: MIRYAM OLVERA MD ADMIT DATE: 10/24/22/ER Draft Date of Exam:10/24/22 CT RUDI CHEST/NOANG ABD-PELV W EXAM: CT RUDI CHEST/NOANG ABD-PELV W Thin axial sections through the chest, abdomen and pelvis are obtained following intravenous contrast bolus. Multiplanar MIP images were reconstructed and reviewed. All CT scans use one or more of the following dose optimizing techniques: automated exposure control, MA and/or KvP adjustment based on patient size and exam type or iterative reconstruction. INDICATION: Chest pain. Abdominal pain. COMPARISON: Chest radiograph 10/24/2022. CT abdomen and pelvis with IV contrast 10/17/2021. FINDINGS: CTA CHEST: No thoracic aortic aneurysm or dissection. Mild atherosclerotic calcifications. The great arch vessels are widely patent. The pulmonary arteries are poorly evaluated due to contrast timing. Normal heart size. No pericardial effusion. No mediastinal, hilar or axillary lymphadenopathy. Severe centrilobular emphysema. No pleural effusion or pneumothorax. No acute osseous findings. Chronic left rib fractures. Chronic right clavicle fracture is partially visualized. CT abdomen and pelvis: The liver, gallbladder, pancreas, spleen, adrenals, kidneys, collecting systems and bladder are negative. No evidence of appendicitis. Moderate atherosclerotic calcifications. Distended stool-filled rectum. Large amount of stool throughout the colon. Normal caliber small bowel. Postoperative changes of the left hernia repair. No acute osseous findings. IMPRESSION: 1. No thoracic aortic aneurysm or dissection. 2. Severe COPD. 3. Rectal fecal impaction. Dictated on workstation # [id number] Dict: 10/24/22720 Trans: 10/24/22 0732 SHARIF [id number] Interpreted by: NAPOLEON KING MD Electronically signed by: (DOREEN CARRILLO MD) Departure Impression Primary Impression: COPD exacerbation Additional Impressions: Atypical chest pain Anemia Qualified Codes: D64.9 - Anemia, unspecified Disposition: 01 HOME, SELF-CARE Condition: Stable Departure-Patient Inst. Decision time for Depature: 07:50 (DOREEN CARRILLO MD) Referrals: JAY BAUTISTA MD (PCP/Family) Primary Care Physician Patient Instructions: COPD Exacerbation, Adult ED Add. Discharge Instructions: You do have an infection in your lungs which is mild at this time. You will be on antibiotics and steroids. Use your breathing treatments where you put the liquid into the machine to breathe in the mist every 2-4 hours for the next couple of days. I would say do it at least 3-4 times a day on a regular day oth erwise. Follow-up with your regular doctor in the next 3 days to ensure you are improving. Scripts Tramadol HCl (Tramadol HCl) 50 Mg Tablet 50 MG PO Q6H PRN for PAIN for 3 Days, #12 TAB 0 Refills Prov: DOREEN CARRILLO MD 10/24/22 Cefdinir (Cefdinir) 300 Mg Capsule 300 MG PO BID for 7 Days, #14 CAP Prov: DOREEN CARRILLO MD 10/24/22 Methylprednisolone (Methylprednisolone Dose Pack) 4 Mg Tab.ds.pk 4 MG PO UD for 6 Days, #21 PKG PER DOSE PACK INSTRUCTIONS Prov: DOREEN CARRILLO MD 10/24/22 MIRYAM OLVERA MD Oct 24, 2022 04:14 DOREEN CARRILLO MD Oct 24, 2022 07:39
[2022-10-24] MEDS ORDERED: morphine INJ 10 MG/ML 1ML (SYR OR VIAL) IVP STA (04:49)
[2022-10-24] MEDS ORDERED: RT-ALBUTEROL/IPRATROPIUM 3 ML (DUONEB) VIAL INH ONE (05:00)
[2022-10-24] MEDS ORDERED: ONDANSETRON 4 MG/2 ML (SDV) Z0FRAN IVP ONE (06:30)
[2022-10-24] MEDS ORDERED: LIDOCAINE 2% VISCOUS 15 ML UDC PO ONE (06:30)
[2022-10-24] MEDS ORDERED: ANTACID SUSP 30 ML UDC (MYLANTA) PO ONE (06:30)
[2022-10-24] MEDS ORDERED: cefTRIAXone 1 GM PRE-MIX 50 ML IV STA (07:20)
[2022-10-24] MEDS ORDERED: DOXYCYCLINE 100 MG (VIBRAMYCIN) TABLET PO STA (07:20)
[2022-10-24] MEDS ORDERED: NS 100 ML (IVPB) BAG IV ONE (07:30)
[2022-10-24] MEDS ORDERED: IOHEXOL 350 MG/ML 100 ML (OMNIPAQUE 350) VIAL IV ONE (07:30)
[2022-10-24] MEDS ORDERED: HOLD METFORMIN - RECEIVED CONTRAST 20 ML VIAL IV SCH (07:30)
--- NOTE | 2022-10-24 07:33 | Diagnostic Imaging Report ---
EXAM: CT RUDI CHEST/NOANG ABD-PELV W Thin axial sections through the chest, abdomen and pelvis are obtained following intravenous contrast bolus. Multiplanar MIP images were reconstructed and reviewed. All CT scans use one or more of the following dose optimizing techniques: automated exposure control, MA and/or KvP adjustment based on patient size and exam type or iterative reconstruction. INDICATION: Chest pain. Abdominal pain. COMPARISON: Chest radiograph 10/24/2022. CT abdomen and pelvis with IV contrast 10/17/2021. FINDINGS: CTA CHEST: No thoracic aortic aneurysm or dissection. Mild atherosclerotic calcifications. The great arch vessels are widely patent. The pulmonary arteries are poorly evaluated due to contrast timing. Normal heart size. No pericardial effusion. No mediastinal, hilar or axillary lymphadenopathy. Severe centrilobular emphysema. No pleural effusion or pneumothorax. No acute osseous findings. Chronic left rib fractures. Chronic right clavicle fracture is partially visualized. CT abdomen and pelvis: The liver, gallbladder, pancreas, spleen, adrenals, kidneys, collecting systems and bladder are negative. No evidence of appendicitis. Moderate atherosclerotic calcifications. Distended stool-filled rectum. Large amount of stool throughout the colon. Normal caliber small bowel. Postoperative changes of the left hernia repair. No acute osseous findings. IMPRESSION: 1. No thoracic aortic aneurysm or dissection. 2. Severe COPD. 3. Rectal fecal impaction. Dictated by: Dictated on workstation # [id number]
--- NOTE | 2022-10-24 07:44 | Diagnostic Imaging Report ---
EXAM: CHEST 1 VIEW, AP/PA ONLY INDICATION: Chest pain. COMPARISON: 07/13/2022. FINDINGS: Hyperinflation and scattered scarring is similar to the prior exam. No new focal pulmonary opacity. No pleural effusion or pneumothorax. Stable heart size and central pulmonary vascularity. No acute osseous findings. IMPRESSION: 1. COPD. 2. No acute cardiopulmonary findings. Dictated by: Dictated on workstation # [id number]
[2022-10-24] MEDS ORDERED: METH4TAB10 PO (07:45)
[2022-10-24] MEDS ORDERED: CEFD300C3 PO (07:45)
[2022-10-24] MEDS ORDERED: TRM50T PO (08:26)
[2022-10-24 08:33] VITALS: BP 103/57
== END 2022-10-24 08:33 | disposition home or self-care (01) ==
LOC: EDUNIT# 01:49 → ER 01:52
DX: J44.1 Chronic obstructive pulmonary disease with (acute) exacerbation (principal); R07.89 Other chest pain; D64.9 Anemia, unspecified; I48.91 Unspecified atrial fibrillation; F17.210 Nicotine dependence, cigarettes, uncomplicated; Z79.01 Long term (current) use of anticoagulants; Z99.81 Dependence on supplemental oxygen; Z20.822 Contact with and (suspected) exposure to COVID-19
CPT/HCPCS: 36415; 71045; 71275; 74177; 80053; 83690; 83735; 83874; 83880; 84484; 85025; 85379; 85610; 85730; 86141; 87636; 93005

== ENCOUNTER 2022-10-31 01:07 | Emergency (ER) | payer MEDICARE ==
[~2022-10-31 01:07] MED LIST changes: +METH4TAB10 PO; +TRM50T PO
--- NOTE | 2022-10-31 02:24 | ED Abdominal Pain ---
General Chief Complaint: Abdominal/GI Problems Stated Complaint: CONSTIPATION Nursing Triage Note: TO ED VIA [facility] TO ROOM 7 WITH C/O CONSTIPATION SINCE LAST SUNDAY. C/O ABD PAIN. TOOK "WHITE POWDER MIXED IN 8 OZ OF WATER" AT 2000 TONIGHT WITHOUT RELIEF. Source of Information: Patient, Old Records Exam Limitations: No Limitations History of Present Illness Date Seen by Provider: Oct 31, 2022 Time Seen by Provider: 01:15 Initial Comments This 62 year old gentleman presents to the ER via EMS with complaints of abdominal pain and constipation. He was seen in the ER one week ago and treated for COPD exacerbation. CT of the chest and abdomen was done at that time and severe constipation with fecal impaction was noted. He has not had a BM since October 27. He took Miralax last night at 20:00. He is afebrile. Respiratory status is stable. He is dependent on oxygen supplementation at 4-5 lpm nc. Allergies and Home Medications Allergies Coded Allergies: No Known Drug Allergies (Verified , 07/11/09) Patient Home Medication List Home Medication List Reviewed: Yes Acetaminophen with Codeine (Acetaminop-Codeine 120-12 mg/5) 120 Mg-12 Mg/5 Ml (5 Ml) Solution, 5 ML PO Q4H PRN for cough/pain Prescribed by: MYA MORSE on 07/13/22 1103 Albuterol Sulfate (Ventolin Hfa) 18 Gm Hfa.aer.ad, 2 PUFF INH Q6H PRN for SHORTNESS OF BREATH, (Reported) Entered as Reported by: PRISCILLA DELGADO on 11/04/21 1557 Albuterol Sulfate (Ventolin Hfa) 1 Puff Puff, 2 PUFF IH Q4H PRN for shortness of breath Prescribed by: MYA MORSE on 07/13/22 1102 Alprazolam (Alprazolam) 0.5 Mg Tablet, 0.5 MG PO Q8H PRN for ANXIETY, (Reported) Entered as Reported by: PRISCILLA DELGADO on 11/04/21 1557 Atorvastatin Calcium (Atorvastatin Calcium) 40 Mg Tablet, 40 MG PO DAILY, (Reported) Entered as Reported by: PRISCILLA DELGADO on 03/06/22 1145 Azithromycin (Zithromax) 500 Mg Tablet, 500 MG PO DAILY Prescribed by: CAPRICE MCGHEE on 11/02/22 1244 Baclofen (Baclofen) 10 Mg Tablet, 10 MG PO BID PRN for MUSCLE SPASMS, (Reported) Entered as Reported by: PRISCILLA DELGADO on 11/04/21 1557 Bisacodyl (Dulcolax) 10 Mg Supp.rect, 10 MG RC DAILY Prescribed by: MIRYAM ROMAN on 10/31/22 0643 Cefdinir (Cefdinir) 300 Mg Capsule, 300 MG PO BID Prescribed by: DOREEN CARRILLO on 10/24/22 0745 Cefdinir (Cefdinir) 300 Mg Capsule, 300 MG PO BID Prescribed by: CAPRICE MCGHEE on 11/02/22 1244 Digoxin (Digoxin) 125 Mcg (0.125 Mg) Tablet, 250 MCG PO DAILY, (Reported) Entered as Reported by: PRISCILLA DELGADO on 04/20/22 1146 Doxycycline Hyclate (Doxycycline Hyclate) 100 Mg Tablet, 100 MG PO BID Prescribed by: MYA MORSE on 07/13/22 1102 Duloxetine HCl (Duloxetine HCl) 60 Mg Capsule.dr, 60 MG PO DAILY, (Reported) Entered as Reported by: PRISCILLA DELGADO on 12/22/20 1254 Ferrous Sulfate (Iron) 325 Mg (65 Mg Iron) Tablet, 325 MG PO DAILY, (Reported) Entered as Reported by: PRISCILLA DELGADO on 04/20/22 1146 Furosemide (Furosemide) 40 Mg Tablet, 40 MG PO DAILY, (Reported) Entered as Reported by: PRISCILLA DELGADO on 03/06/22 1145 Gabapentin (Gabapentin) 400 Mg Capsule, 400 MG PO TID, (Reported) Entered as Reported by: PRISCILLA DELGADO on 11/04/21 1557 Ipratropium/Albuterol Sulfate (Iprat-Albut 0.5-3(2.5) mg/3 ml) 0.5 Mg-3 Mg (2.5 Mg Base)/3 Ml Ampul.neb, 3 ML IH BID PRN for SHORTNESS OF BREATH, (Reported) Entered as Reported by: PRISCILLA DELGADO on 03/06/22 1145 Methylprednisolone (Methylprednisolone Dose Pack) 4 Mg Tab.ds.pk, 4 MG PO UD Prescribed by: DOREEN CARRILLO on 10/24/22 0745 Methylprednisolone (Medrol) 4 Mg Tab.ds.pk, 4 MG PO UD Prescribed by: CAPRICE MCGHEE on 11/02/22 1244 Oxycodone HCl (Oxycodone HCl) 5 Mg Tablet, 5 MG PO Q6H PRN for PAIN-SEVERE (8-10), (Reported) Entered as Reported by: PRISCILLA DELGADO on 11/04/21 1557 Oxycodone HCl/Acetaminophen (Percocet 5-325 mg Tablet) 5 Mg-325 Mg Tablet, 1 TAB PO Q6H PRN for PAIN-MODERATE Prescribed by: MIRYAM ROMAN on 10/31/22 0824 Polyethylene Glycol 3350 (Miralax) 17 Gram/Dose Powder, 17 GM PO Q4H PRN for CONSTIPATION Prescribed by: MIRYAM ROMAN on 10/31/22 0643 Potassium Chloride (Potassium Chloride) 20 Meq Tab.er.prt, 20 MEQ PO DAILY, (Reported) Entered as Reported by: PRISCILLA DELGADO on 03/06/22 1145 Prednisone (Prednisone) 50 Mg Tab, 50 MG PO DAILY Prescribed by: MYA MORSE on 07/13/22 1102 Rivaroxaban (Xarelto) 20 Mg Tablet, 20 MG PO DAILY, (Reported) Entered as Reported by: PRISCILLA DELGADO on 12/22/20 1254 Tramadol HCl (Tramadol HCl) 50 Mg Tablet, 50 MG PO Q6H PRN for PAIN Prescribed by: DOREEN CARRILLO on 10/24/22 0827 Review of Systems Review of Systems Constitutional: no symptoms reported EENTM: No Symptoms Reported Respiratory: See HPI Cardiovascular: No Symptoms Reported Gastrointestinal: See HPI Genitourinary: No Symptoms Reported Musculoskeletal: no symptoms reported Skin: no symptoms reported Psychiatric/Neurological: No Symptoms Reported Endocrine: No Symptoms Reported Hematologic/Lymphatic: No Symptoms Reported Past Szhghvc-Ivunlp-Jxmiqy Hx Patient Social History Tobacco Use?: Yes Smoking Status: Current Everyday Smoker Immunizations Up To Date Tetanus Booster (TDap): Less than 5yrs PED Vaccines UTD: No Influenza Vaccine Up-to-Date: Yes; Up-to-Date First/Initial COVID19 Vaccinat: 01/06 Second COVID19 Vaccination Hemanth: 02/05 Third COVID19 Vaccination Date: 2021 Seasonal Allergies Seasonal Allergies: Yes (hayfever) Past Medical History Surgery/Hospitalization HX: AFIB, HTN, COPD, ANEMIA, CAD, CHRONIC RESPIRATORY FAILURE WITH HYPOXIA PNEUMONIA ortho heart cath stents, LUNG MASS Surgeries: Yes (hernia repair, l ankle, l wrist, ) Abdominal, Orthopedic Respiratory: Yes Pneumonia, COPD Currently Using CPAP: No Currently Using BIPAP: No Cardiac: Yes Atrial Fibrillation, Deep Vein Thrombosis, Hypertension Neurological: Yes (neuralgia) Neuropathy Sexually Transmitted Disease: No HIV/AIDS: No Genitourinary: Yes Renal Failure Gastrointestinal: Yes Abdominal Hernia, Gastrointestinal Bleed Musculoskeletal: Yes Chronic Back Pain Endocrine: No HEENT: No (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 oz. kg; 17.00 BMI Method: General Appearance: WD/WN, mild distress, cachetic, thin HEENT: normal ENT inspection Neck: normal inspection Respiratory: lungs clear, normal breath sounds, no respiratory distress Cardiovascular: regular rate, rhythm, no edema, no murmur Gastrointestinal: normal bowel sounds; No distended; tenderness (generalized) Extremities: normal inspection, no pedal edema Neurologic/Psychiatric: no motor/sensory deficits, alert, normal mood/affect, oriented x 3 Skin: normal color, warm/dry Procedures/Interventions Date of ETT Placement: Apr 19, 2022 Time of ETT Placement: 1400 Progress/Results/Core Measures Results/Orders Lab Results Laboratory Tests Test 10/31/22 03:59 10/31/22 04:03 Range/Units Urine Color YELLOW Urine Clarity CLEAR Urine pH 7.0 5-9 Urine Specific [place] <=1.005 1.016-1.022 Urine Protein NEGATIVE NEGATIVE Urine Glucose (UA) NEGATIVE NEGATIVE Urine Ketones NEGATIVE NEGATIVE Urine Nitrite NEGATIVE NEGATIVE Urine Bilirubin NEGATIVE NEGATIVE Urine Urobilinogen 0.2 < = 1.0 MG/DL Urine Leukocyte Esterase NEGATIVE NEGATIVE Urine RBC (Auto) NEGATIVE NEGATIVE Urine RBC NONE /HPF Urine WBC NONE /HPF Urine Crystals NONE /LPF Urine Bacteria NEGATIVE /HPF Urine Casts NONE /LPF Urine Mucus NEGATIVE /LPF Urine Culture Indicated NO White Blood Count 12.4 H 4.3-11.0 10^3/uL Red Blood Count 3.08 L 4.30-5.52 10^6/uL Hemoglobin 8.5 L 13.3-17.7 g/dL Hematocrit 26 L 40-54 % Mean Corpuscular Volume 85 80-99 fL Mean Corpuscular Hemoglobin 28 25-34 pg Mean Corpuscular Hemoglobin Concent 32 32-36 g/dL Red Cell Distribution Width 15.1 H 10.0-14.5 % Platelet Count 529 H 130-400 10^3/uL Mean Platelet Volume 9.1 9.0-12.2 fL Immature Granulocyte % (Auto) 0 % Neutrophils (%) (Auto) 63 42-75 % Lymphocytes (%) (Auto) 23 12-44 % Monocytes (%) (Auto) 10 0-12 % Eosinophils (%) (Auto) 3 0-10 % Basophils (%) (Auto) 0 0-10 % Neutrophils # (Auto) 7.8 1.8-7.8 10^3/uL Lymphocytes # (Auto) 2.9 1.0-4.0 10^3/uL Monocytes # (Auto) 1.2 H 0.0-1.0 10^3/uL Eosinophils # (Auto) 0.4 H 0.0-0.3 10^3/uL Basophils # (Auto) 0.0 0.0-0.1 10^3/uL Immature Granulocyte # (Auto) 0.1 0.0-0.1 10^3/uL Sodium Level 137 135-145 MMOL/L Potassium Level 3.6 3.6-5.0 MMOL/L Chloride Level 92 L 98-107 MMOL/L Carbon Dioxide Level 34 H 21-32 MMOL/L Anion Gap 11 5-14 MMOL/L Blood Urea Nitrogen 13 7-18 MG/DL Creatinine 0.74 0.60-1.30 MG/DL Estimat Glomerular Filtration Rate 104 BUN/Creatinine Ratio 18 Glucose Level 98 70-105 MG/DL Calcium Level 8.4 L 8.5-10.1 MG/DL Corrected Calcium 8.4 L 8.5-10.1 MG/DL Magnesium Level 2.3 1.6-2.4 MG/DL Total Bilirubin 0.4 0.1-1.0 MG/DL Aspartate Amino Transf (AST/SGOT) 21 5-34 U/L Alanine Aminotransferase (ALT/SGPT) 32 0-55 U/L Alkaline Phosphatase 62 40-136 U/L C-Reactive Protein High Sensitivity 0.11 0.00-0.50 MG/DL Total Protein 6.8 6.4-8.2 GM/DL Albumin 4.0 3.2-4.5 GM/DL Lipase 15 8-78 U/L My Orders Orders - MIRYAM OLVERA MD Abdomen, Flat & Upright/Decub (10/31/22 01:15) Cbc With Automated Diff (10/31/22 03:19) Comprehensive Metabolic Panel (10/31/22 03:19) Hs C Reactive Protein (10/31/22 03:19) Lipase (10/31/22 03:19) Magnesium (10/31/22 03:19) Ua Culture If Indicated (10/31/22 03:19) Ed Iv/Invasive Line Start (10/31/22 03:19) Lactated Ringers (Lr 1000 Ml Iv Solution (10/31/22 03:30) Albuterol/Ipra Inhalation Soln (Duoneb I (10/31/22 03:30) Svn Small Volume Nebulizer (10/31/22 03:19) Morphine Injection (Morphine Injection (10/31/22 03:19) Lidocaine 2% Viscous 15 Ml (Xylocaine Vi (10/31/22 05:00) Morphine Injection (Morphine Injection (10/31/22 05:56) Na Phos/Na Biphos Enema (Fleet Enema Shawn (10/31/22 06:30) Albuterol/Ipra Inhalation Soln (Duoneb I (10/31/22 06:45) Svn Small Volume Nebulizer (10/31/22 06:38) Ns Iv 500 Ml (Sodium Chloride 0.9%) (10/31/22 07:30) Oxycodone/Apap 5/325mg Tablet (Percocet (10/31/22 08:30) Medications Given in ED Vital Signs/I&O 10/31/22 10/31/22 10/31/22 01:07 10:05 10:43 Temp 36.8 Pulse 80 70 54 52 55 Resp 18 18 B/P (MAP) 105/64 (78) 97/60 96/60 (72) 95/53 (67) 90/52 (65) Pulse Ox 96 94 O2 Delivery Room Air Nasal Cannula O2 Flow Rate 4.50 Blood Pressure Mean: 78 Progress Progress Note #1: Progress Note Patient was treated with morphine for pain. Bowels are unremarkable. KUB and upright x-rays were obtained revealing significant constipation and a fecal impaction. Patient was offered manual disimpaction. Viscous lidocaine was used for lubrication. A small amount of stool was retrieved during manual disimpaction. The stool was very sticky and magdalena-like and therefore hard to grasp to remove. Patient will be discharged home after an enema. He will continue taking MiraLAX and try Dulcolax suppositories. Patient was noted to have soft blood pressure after receiving morphine. He is receiving IV fluid to resuscitate to help support his blood pressure. Progress Note #2: Progress Note Blood pressure remained near 90 systolic but he had no complaints of lightheadedness. He was alert and oriented. A review of his historic blood pressures on other visits reveals is SBP typically runs 100-110. He is not septic and is stable for discharge. Diagnostic Imaging Diagonstic Imaging: Xray Plain Films/CT/US/NM/MRI: abdomen Comments KUB and upright x-rays viewed. Report not available. There is significant constipation and fecal impaction in the rectum. No evidence of bowel obstruction on my assessment. Departure Impression Primary Impression: Fecal impaction in rectum Additional Impressions: Abdominal pain Qualified Codes: R10.84 - Generalized abdominal pain Constipation Qualified Codes: K59.00 - Constipation, unspecified Disposition: 01 HOME, SELF-CARE Condition: Improved Departure-Patient Inst. Decision time for Depature: 06:40 Referrals: JAY BAUTISTA MD (PCP/Family) Primary Care Physician Patient Instructions: Fecal Impaction, Constipation in Adults Add. Discharge Instructions: Adhere to a clear liquid diet until you produce a significant bowel movement. Use a Dulcolax suppository daily and MiraLAX doses every 4 hours until a good bowel movement is produced. The needed diet with plenty of fruits, vegetables, fiber, and whole grains. Limit meats, cheeses, processed foods, and fast foods. Return to care if you have worsening symptoms despite following these instructions. All discharge instructions reviewed with patient and/or family. Voiced understanding. Scripts Oxycodone HCl/Acetaminophen (Percocet 5-325 mg Tablet) 5 Mg-325 Mg Tablet 1 TAB PO Q6H PRN for PAIN-MODERATE MDD 6, #5 TAB Prov: MIRYAM OLVERA MD 10/31/22 Polyethylene Glycol 3350 (Miralax) 17 Gram/Dose Powder 17 GM PO Q4H PRN for CONSTIPATION, #1 EA Fill cap to line. Mix in 8-12 oz clear liquid. Take every 4 hours until good BM is produced. Prov: MIRYAM OLVERA MD 10/31/22 Bisacodyl (Dulcolax) 10 Mg Supp.rect 10 MG RC DAILY, #10 SUPP.RECT Prov: MIRYAM OLVERA MD 10/31/22 Copy Copies To 1: ARSENIO CARRASCO JOSHUA T MD Oct 31, 2022 02:24
[2022-10-31] MEDS ORDERED: morphine INJ 10 MG/ML 1ML (SYR OR VIAL) IVP STA ×2 (03:19→05:56)
[2022-10-31] MEDS ORDERED: RT-ALBUTEROL/IPRATROPIUM 3 ML (DUONEB) VIAL INH ONE ×2 (03:30→06:45)
[2022-10-31] MEDS ORDERED: LACTATED RINGERS 1,000 ML IV ONE ×2 (03:30→09:00)
[2022-10-31 04:15] LABS: BASOPHILS % (AUTO) 0 % (0-10); EOSINOPHILS # (AUTO) 0.4 10^3/uL (0.0-0.3); EOSINOPHILS % (AUTO) 3 % (0-10); HEMATOCRIT 26 % (40-54); HEMOGLOBIN 8.5 g/dL (13.3-17.7); LYMPHOCYTES # (AUTO) 2.9 10^3/uL (1.0-4.0); LYMPHOCYTES % (AUTO) 23 % (12-44); MEAN CORPUSCULAR HEMOGLOBIN 28 pg (25-34); MEAN CORPUSCULAR HGB CONC 32 g/dL (32-36); MEAN CORPUSCULAR VOLUME 85 fL (80-99); MEAN PLATELET VOLUME 9.1 fL (9.0-12.2); MONOCYTES # (AUTO) 1.2 10^3/uL (0.0-1.0); MONOCYTES % (AUTO) 10 % (0-12); NEUTROPHILS # (AUTO) 7.8 10^3/uL (1.8-7.8); NEUTROPHILS % (AUTO) 63 % (42-75); PLATELET COUNT 529 10^3/uL (130-400); WHITE BLOOD COUNT 12.4 10^3/uL (4.3-11.0)
[2022-10-31 04:16] LABS: BILIRUBIN,URINE NEGATIVE (NEGATIVE); CLARITY,URINE CLEAR; COLOR,URINE YELLOW; GLUCOSE, URINE (UA) NEGATIVE (NEGATIVE); KETONES,URINE NEGATIVE (NEGATIVE); LEUKOCYTE ESTERASE ,URINE NEGATIVE (NEGATIVE); NITRITE,URINE NEGATIVE (NEGATIVE); PROTEIN,URINE NEGATIVE (NEGATIVE)
[2022-10-31 04:25] LABS: POTASSIUM 3.6 MMOL/L (3.6-5.0)
[2022-10-31 04:26] LABS: CALCIUM 8.4 MG/DL (8.5-10.1)
[2022-10-31 04:27] LABS: BACTERIA,URINE NEGATIVE /HPF
[2022-10-31 04:27] LABS: TOTAL PROTEIN 6.8 GM/DL (6.4-8.2)
[2022-10-31 04:29] LABS: BILIRUBIN,TOTAL 0.4 MG/DL (0.1-1.0)
[2022-10-31 04:31] LABS: CREATININE SERUM 0.74 MG/DL (0.60-1.30)
[2022-10-31 04:33] LABS: MAGNESIUM 2.3 MG/DL (1.6-2.4)
[2022-10-31] MEDS ORDERED: LIDOCAINE 2% VISCOUS 15 ML UDC MM ONE (05:00)
[2022-10-31] MEDS ORDERED: FLEET ENEMA ADULT 1 EA BTL PR ONE (06:30)
[2022-10-31] MEDS ORDERED: POLY119P5 PO (06:43)
[2022-10-31] MEDS ORDERED: BISA10SU58 RC (06:43)
--- NOTE | 2022-10-31 07:14 | Diagnostic Imaging Report ---
Indication: Pain. Findings: There is a large fecal load throughout the colon with dense stool at the rectal vault distending that structure to 10 cm, an impacting stool ball at that level suspected. No small bowel dilatation or gastric distention. Impression: At least moderate constipation with a large stool ball distending the rectal vault. Dictated by: Dictated on workstation # [id number]
[2022-10-31] MEDS ORDERED: NS IV 500 ML 500 ML IV ONE (07:30)
[2022-10-31] MEDS ORDERED: OXYC-199 PO (08:23)
[2022-10-31] MEDS ORDERED: oxyCODONE/APAP 5/325MG (PERCOCET 5) TABLET PO ONE (08:30)
[2022-10-31 10:43] VITALS: BP_SYST 90; BP_SYST 95; BP_SYST 96; BP_DIAS 52; BP_DIAS 53; BP_DIAS 60
== END 2022-10-31 10:05 | disposition home or self-care (01) ==
LOC: EDUNIT# 01:07 → ER 01:09
DX: K59.00 Constipation, unspecified (principal); R10.9 Unspecified abdominal pain; F17.210 Nicotine dependence, cigarettes, uncomplicated; Z87.19 Personal history of other diseases of the digestive system; Z98.890 Other specified postprocedural states
CPT/HCPCS: 36415; 74019; 80053; 81000; 83690; 83735; 85025; 86141; 99283

== ENCOUNTER 2022-11-02 10:28 | Emergency (ER) | payer MEDICARE ==
[~2022-11-02] VITALS: Ht 175 cm; Wt 54.4 kg
[~2022-11-02 10:28] MED LIST changes: +BISA10SU58 RC; +OXYC-199 PO; +POLY119P5 PO
[2022-11-02] MEDS: LACTATED RINGERS 1,000 ML IV ONE (10:50)
[2022-11-02] MEDS: LIDOCAINE UROJET 2% GEL 10 ML PKG TOP ONE (10:50)
[2022-11-02] MEDS: methylPREDNISolone 125 MG (Solu-MEDROL) VIAL IV STA (10:50)
[2022-11-02 10:51] LABS: ABG BASE EXCESS 5.4 MMOL/L (-2.5-2.5); ABG OXYGEN SATURATION 98 % (94-100); ABG PCO2 55 MMHG (35-45); ABG PH 7.37 (7.37-7.43); ABG PO2 81 MMHG (79-93); ABG TCO2 32.3 MMOL/L (21.0-31.0); ALLENS TEST P
[2022-11-02 10:52] LABS: BASOPHILS % (AUTO) 0 % (0-10); EOSINOPHILS # (AUTO) 0.2 10^3/uL (0.0-0.3); EOSINOPHILS % (AUTO) 3 % (0-10); HEMATOCRIT 27 % (40-54); HEMOGLOBIN 8.5 g/dL (13.3-17.7); LYMPHOCYTES # (AUTO) 1.7 10^3/uL (1.0-4.0); LYMPHOCYTES % (AUTO) 19 % (12-44); MEAN CORPUSCULAR HEMOGLOBIN 27 pg (25-34); MEAN CORPUSCULAR HGB CONC 31 g/dL (32-36); MEAN CORPUSCULAR VOLUME 87 fL (80-99); MEAN PLATELET VOLUME 9.3 fL (9.0-12.2); MONOCYTES # (AUTO) 0.9 10^3/uL (0.0-1.0); MONOCYTES % (AUTO) 9 % (0-12); NEUTROPHILS # (AUTO) 6.3 10^3/uL (1.8-7.8); NEUTROPHILS % (AUTO) 69 % (42-75); PLATELET COUNT 531 10^3/uL (130-400); WHITE BLOOD COUNT 9.1 10^3/uL (4.3-11.0)
[2022-11-02 10:52] LABS: INSPIRED O2 10; PATIENT TEMP 98.4; VENTILATOR NO
[2022-11-02 11:14] LABS: BILIRUBIN,URINE NEGATIVE (NEGATIVE); CLARITY,URINE CLEAR; COLOR,URINE YELLOW; GLUCOSE, URINE (UA) NEGATIVE (NEGATIVE); KETONES,URINE TRACE (NEGATIVE); LEUKOCYTE ESTERASE ,URINE NEGATIVE (NEGATIVE); NITRITE,URINE NEGATIVE (NEGATIVE); PH,URINE 7.5 (5-9); PROTEIN,URINE NEGATIVE (NEGATIVE)
--- NOTE | 2022-11-02 11:14 | Diagnostic Imaging Report ---
INDICATION: Dyspnea Single AP view of chest is obtained with comparison made to study of 10/24/2022. Extensive background emphysema is again noted with prominent interstitial markings. This is most pronounced in the left upper lobe. No pneumothorax or new consolidation is identified. There is no evidence of significant pleural fluid. IMPRESSION: Extensive COPD without new abnormality or adverse change. Dictated by: Dictated on workstation # [id number]
[2022-11-02 11:15] LABS: ALANINE AMINOTRANSFERASE 26 U/L (0-55); ALBUMIN 3.7 GM/DL (3.2-4.5); ALKALINE PHOSPHATASE 78 U/L (40-136); AMYLASE 84 U/L (25-125); BILIRUBIN,TOTAL 0.4 MG/DL (0.1-1.0); BUN/CREATININE RATIO 12; CALCIUM 8.6 MG/DL (8.5-10.1); CARBON DIOXIDE 28 MMOL/L (21-32); CHLORIDE 104 MMOL/L (98-107); CREATINE KINASE 103 U/L (30-200); CREATININE SERUM 0.68 MG/DL (0.60-1.30); GFR ESTIMATED 106; GLUCOSE 110 MG/DL (70-105); LIPASE 8 U/L (8-78); MAGNESIUM 2.3 MG/DL (1.6-2.4); POTASSIUM 4.4 MMOL/L (3.6-5.0); SODIUM 139 MMOL/L (135-145); TOTAL PROTEIN 6.2 GM/DL (6.4-8.2)
[2022-11-02 11:22] LABS: CREATINE KINASE MB 2.9 NG/ML (<6.6)
[2022-11-02 11:24] LABS: AMPHETAMINE SCREEN, URINE NEGATIVE (NEGATIVE); BARBITURATE SCREEN URINE NEGATIVE (NEGATIVE); BENZODIAZEPINES SCREEN URINE NEGATIVE (NEGATIVE); CANNABINOID SCREEN, URINE POSITIVE (NEGATIVE); COCAINE SCREEN URINE NEGATIVE (NEGATIVE); METHADONE STAT NEGATIVE (NEGATIVE); OPIATE SCREEN URINE POSITIVE (NEGATIVE); OXYCODONE STAT POSITIVE (NEGATIVE); PROPOXYPHENE STAT NEGATIVE (NEGATIVE); TRICYCLIC ANTIDEPRESSANTS SCRE NEGATIVE (NEGATIVE)
--- NOTE | 2022-11-02 11:26 | ED General ---
General Chief Complaint: Abdominal/GI Problems Stated Complaint: ABD PAIN | SOA Source of Information: Patient (POOR HISTORIAN), Old Records History of Present Illness Date Seen by Provider: Nov 02, 2022 Time Seen by Provider: 10:30 Initial Comments PT ARRIVES VIA EMS FROM HOME PT WITH OXYGEN DEPENDENT COPD C/O SHORTNESS OF BREATH--CHRONIC PROBLEM C/O ABDOMINAL DISCOMFORT AND CONSTIPATION--ALSO A CHRONIC PROBLEM NO KNOWN FEVER NO CHEST PAIN NO SWELLING IN LEGS/FEET OR PAIN IN CALVES C/O PAIN ON URINATION NO NAUSEA/VOMITING. PT WAS SEEN HERE 10/24/22 FOR THIS PROBLEM AND WAS DISMISSED WITH RX'S FOR MEDR OL DOSE PACK AND CEFDINIR AND TRAMADOL FOR HIS CHRONIC GENERALIZED PAIN COMPLAINTS. HE DID NOT BELL NECK HAMMERER ANY OF THESE PRESCRIPTIONS HE WAS SEEN HERE AGAIN 10/31/22 FOR CONSTIPATION, AND WAS PRESCRIBED OXYCODONE FOR HIS CHRONIC PAIN COMPLAINTS AND MIRALAX, AND WAS INSTRUCTED TO GET ENEMAS--HE STATES HE HAD THESE PRESCRIPTIONS PICKED UP, BUT HE DID NOT USE THE ENEMAS OR TAKE THE MIRALAX. HE HAS NOT ATTEMPTED TO FOLLOW UP WITH HIS DR AT ANY TIME PCP: ADRIANA JASON AT DR. CARRASCO'S OFFICE. WATCH CRYSTAL CUTTER: DR. BELLAMY FORMULA ROOM WORKER: DR. CRUZ Allergies and Home Medications Allergies Coded Allergies: No Known Drug Allergies (Verified , 07/11/09) Patient Home Medication List Acetaminophen with Codeine (Acetaminop-Codeine 120-12 mg/5) 120 Mg-12 Mg/5 Ml (5 Ml) Solution, 5 ML PO Q4H PRN for cough/pain Prescribed by: MYA MORSE on 07/13/22 1103 Albuterol Sulfate (Ventolin Hfa) 18 Gm Hfa.aer.ad, 2 PUFF INH Q6H PRN for SHORTNESS OF BREATH, (Reported) Entered as Reported by: PRISCILLA DELGADO on 11/04/21 1557 Albuterol Sulfate (Ventolin Hfa) 1 Puff Puff, 2 PUFF IH Q4H PRN for shortness of breath Prescribed by: MYA MORSE on 07/13/22 1102 Alprazolam (Alprazolam) 0.5 Mg Tablet, 0.5 MG PO Q8H PRN for ANXIETY, (Reported) Entered as Reported by: PRISCILLA DELGADO on 11/04/21 1557 Atorvastatin Calcium (Atorvastatin Calcium) 40 Mg Tablet, 40 MG PO DAILY, (Reported) Entered as Reported by: PRISCILLA DELGADO on 03/06/22 1145 Azithromycin (Zithromax) 500 Mg Tablet, 500 MG PO DAILY Prescribed by: CAPRICE MCGHEE on 11/02/22 1244 Baclofen (Baclofen) 10 Mg Tablet, 10 MG PO BID PRN for MUSCLE SPASMS, (Reported) Entered as Reported by: PRISCILLA DELGADO on 11/04/21 1557 Bisacodyl (Dulcolax) 10 Mg Supp.rect, 10 MG RC DAILY Prescribed by: MIRYAM ROMAN on 10/31/22 0643 Cefdinir (Cefdinir) 300 Mg Capsule, 300 MG PO BID Prescribed by: DOREEN CARRILLO on 10/24/22 0745 Cefdinir (Cefdinir) 300 Mg Capsule, 300 MG PO BID Prescribed by: CAPRICE MCGHEE on 11/02/22 1244 Digoxin (Digoxin) 125 Mcg (0.125 Mg) Tablet, 250 MCG PO DAILY, (Reported) Entered as Reported by: PRISCILLA DELGADO on 04/20/22 1146 Doxycycline Hyclate (Doxycycline Hyclate) 100 Mg Tablet, 100 MG PO BID Prescribed by: MYA MORSE on 07/13/22 1102 Duloxetine HCl (Duloxetine HCl) 60 Mg Capsule.dr, 60 MG PO DAILY, (Reported) Entered as Reported by: PRISCILLA DELGADO on 12/22/20 1254 Ferrous Sulfate (Iron) 325 Mg (65 Mg Iron) Tablet, 325 MG PO DAILY, (Reported) Entered as Reported by: PRISCILLA DELGADO on 04/20/22 1146 Furosemide (Furosemide) 40 Mg Tablet, 40 MG PO DAILY, (Reported) Entered as Reported by: PRISCILLA DELGADO on 03/06/22 1145 Gabapentin (Gabapentin) 400 Mg Capsule, 400 MG PO TID, (Reported) Entered as Reported by: PRISCILLA DELGADO on 11/04/21 1557 Ipratropium/Albuterol Sulfate (Iprat-Albut 0.5-3(2.5) mg/3 ml) 0.5 Mg-3 Mg (2.5 Mg Base)/3 Ml Ampul.neb, 3 ML IH BID PRN for SHORTNESS OF BREATH, (Reported) Entered as Reported by: PRISCILLA DELGADO on 03/06/22 1145 Methylprednisolone (Methylprednisolone Dose Pack) 4 Mg Tab.ds.pk, 4 MG PO UD Prescribed by: DOREEN CARRILLO on 10/24/22 0745 Methylprednisolone (Medrol) 4 Mg Tab.ds.pk, 4 MG PO UD Prescribed by: CAPRICE MCGHEE on 11/02/22 1244 Oxycodone HCl (Oxycodone HCl) 5 Mg Tablet, 5 MG PO Q6H PRN for PAIN-SEVERE (8- 10), (Reported) Entered as Reported by: PRISCILLA DELGADO on 11/04/21 1557 Oxycodone HCl/Acetaminophen (Percocet 5-325 mg Tablet) 5 Mg-325 Mg Tablet, 1 TAB PO Q6H PRN for PAIN-MODERATE Prescribed by: MIRYAM ROMAN on 10/31/22 0824 Polyethylene Glycol 3350 (Miralax) 17 Gram/Dose Powder, 17 GM PO Q4H PRN for CONSTIPATION Prescribed by: MIRYAM ROMAN on 10/31/22 0643 Potassium Chloride (Potassium Chloride) 20 Meq Tab.er.prt, 20 MEQ PO DAILY, (Reported) Entered as Reported by: PRISCILLA DELGADO on 03/06/22 1145 Prednisone (Prednisone) 50 Mg Tab, 50 MG PO DAILY Prescribed by: MYA MORSE on 07/13/22 1102 Rivaroxaban (Xarelto) 20 Mg Tablet, 20 MG PO DAILY, (Reported) Entered as Reported by: PRISCILLA DELGADO on 12/22/20 1254 Tramadol HCl (Tramadol HCl) 50 Mg Tablet, 50 MG PO Q6H PRN for PAIN Prescribed by: DOREEN CARRILLO on 10/24/22 0827 Review of Systems Review of Systems Constitutional: no symptoms reported EENTM: no symptoms reported Respiratory: see HPI, short of breath Cardiovascular: no symptoms reported; No chest pain Gastrointestinal: no symptoms reported, abdominal pain, constipation; No nausea, No vomiting Genitourinary: see HPI Past Zualemn-Qcteyi-[id number] Hx Immunizations Up To Date Tetanus Booster (TDap): Less than 5yrs PED Vaccines UTD: No First/Initial COVID19 Vaccinat: 01/06 Second COVID19 Vaccination Hemanth: 02/05 Third COVID19 Vaccination Date: 2021 Seasonal Allergies Seasonal Allergies: Yes (hayfever) Past Medical History Surgery/Hospitalization HX: AFIB, HTN, COPD, ANEMIA, CAD, CHRONIC RESPIRATORY FAILURE WITH HYPOXIA PNEUMONIA ortho heart cath stents, LUNG MASS Surgeries: Yes (hernia repair, l ankle, l wrist, ) Abdominal, Orthopedic Respiratory: Yes Pneumonia, COPD Currently Using CPAP: No Currently Using BIPAP: No Cardiac: Yes Atrial Fibrillation, Deep Vein Thrombosis, Hypertension Neurological: Yes (neuralgia) Neuropathy Sexually Transmitted Disease: No HIV/AIDS: No Genitourinary: Yes Renal Failure Gastrointestinal: Yes Abdominal Hernia, Gastrointestinal Bleed Musculoskeletal: Yes Chronic Back Pain Endocrine: No HEENT: No (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 BELLAMY: CONCLUSION: 1. Mild coronary artery disease nonobstructive disease 2. Normal left ventricular size and systolic function estimate ejection fraction 60% 3. Normal abdominal aorta and bifurcation with runoff down to the trifurcation with slow flow in the SFA bilaterally, probably small vessel disease distally DISCUSSION AND RECOMMENDATION: Maximizing medical therapy, no intervention is recommended Physical Exam Vital Signs Vital Signs - First Documented 11/02/22 10:40 Temp 36.8 Pulse 69 Resp 20 B/P (MAP) 92/62 (72) Pulse Ox 100 O2 Delivery OxyMask O2 Flow Rate 5.00 Capillary Refill : Height, Weight, BMI Height: '" Weight: lbs. oz. kg; 17.00 BMI Method: Focused Exam Sepsis Stage: Ruled Out Reason for ruling out sepsis: DOES NOT MEET CRITERIA Possible Source: Pulmonary Lactate Level 11/02/22 10:40: Lactic Acid Level 0.81 Time of Focused Exam: 00:05 Respiratory: Normal Breath Sounds (BUT WITH DECREASED AERATION IN BASES), No Accessory Muscle Use, No Respiratory Distress Cardiovascular: Regular Rate, Rhythm Capillary Refill: Less Than 3 Seconds Skin: normal color, warm/dry Lactic Acid Level Laboratory Tests Test 11/02/22 10:40 Lactic Acid Level 0.81 MMOL/L (0.50-2.00) Within 3hrs of presentation: Admin fluids, Admin ABX, Blood cultures prior to ABX's, Focus exam, Lactate level Procedures/Interventions Date of ETT Placement: Apr 19, 2022 Time of ETT Placement: 1400 Progress/Results/Core Measures Suspected Sepsis SIRS Temperature: Pulse: Respiratory Rate: Laboratory Tests 11/02/22 10:40: White Blood Count 9.1 Blood Pressure / Mean: 11/02/22 10:40: Lactic Acid Level 0.81 Laboratory Tests 11/02/22 10:40: Creatinine 0.68, INR Comment 1.4, Platelet Count 531H, Total Bilirubin 0.4 Results/Orders Lab Results Laboratory Tests Test 11/02/22 10:40 11/02/22 10:44 11/02/22 10:55 11/02/22 11:00 Range/Units White Blood Count 9.1 4.3-11.0 10^3/uL Red Blood Count 3.13 L 4.30-5.52 10^6/uL Hemoglobin 8.5 L 13.3-17.7 g/dL Hematocrit 27 L 40-54 % Mean Corpuscular Volume 87 80-99 fL Mean Corpuscular Hemoglobin 27 25-34 pg Mean Corpuscular Hemoglobin Concent 31 L 32-36 g/dL Red Cell Distribution Width 15.2 H 10.0-14.5 % Platelet Count 531 H 130-400 10^3/uL Mean Platelet Volume 9.3 9.0-12.2 fL Immature Granulocyte % (Auto) 0 % Neutrophils (%) (Auto) 69 42-75 % Lymphocytes (%) (Auto) 19 12-44 % Monocytes (%) (Auto) 9 0-12 % Eosinophils (%) (Auto) 3 0-10 % Basophils (%) (Auto) 0 0-10 % Neutrophils # (Auto) 6.3 1.8-7.8 10^3/uL Lymphocytes # (Auto) 1.7 1.0-4.0 10^3/uL Monocytes # (Auto) 0.9 0.0-1.0 10^3/uL Eosinophils # (Auto) 0.2 0.0-0.3 10^3/uL Basophils # (Auto) 0.0 0.0-0.1 10^3/uL Immature Granulocyte # (Auto) 0.0 0.0-0.1 10^3/uL Erythrocyte Sedimentation Rate 44 H 0-30 MM/HR Prothrombin Time 17.3 H 12.2-14.7 SEC INR Comment 1.4 0.8-1.4 Activated Partial Thromboplast Time 35 24-35 SEC D-Dimer <= 0.27 0.00-0.49 UG/ML Sodium Level 139 135-145 MMOL/L Potassium Level 4.4 3.6-5.0 MMOL/L Chloride Level 104 98-107 MMOL/L Carbon Dioxide Level 28 21-32 MMOL/L Anion Gap 7 5-14 MMOL/L Blood Urea Nitrogen 8 7-18 MG/DL Creatinine 0.68 0.60-1.30 MG/DL Estimat Glomerular Filtration Rate 106 BUN/Creatinine Ratio 12 Glucose Level 110 H 70-105 MG/DL Lactic Acid Level 0.81 0.50-2.00 MMOL/L Calcium Level 8.6 8.5-10.1 MG/DL Corrected Calcium 8.8 8.5-10.1 MG/DL Magnesium Level 2.3 1.6-2.4 MG/DL Total Bilirubin 0.4 0.1-1.0 MG/DL Aspartate Amino Transf (AST/SGOT) 19 5-34 U/L Alanine Aminotransferase (ALT/SGPT) 26 0-55 U/L Alkaline Phosphatase 78 40-136 U/L Total Creatine Kinase 103 30-200 U/L Creatine Kinase MB 2.9 <6.6 NG/ML Myoglobin 56.3 10.0-92.0 NG/ML Troponin I < 0.028 <0.028 NG/ML C-Reactive Protein High Sensitivity 1.97 H 0.00-0.50 MG/DL B-Type Natriuretic Peptide 75.1 <100.0 PG/ML Total Protein 6.2 L 6.4-8.2 GM/DL Albumin 3.7 3.2-4.5 GM/DL Amylase Level 84 25-125 U/L Lipase 8 8-78 U/L Serum Alcohol < 10 <10 MG/DL Blood Gas Puncture Site R RADIAL Blood Gas Patient Temperature 98.4 Arterial Blood pH 7.37 7.37-7.43 Arterial Blood Partial Pressure CO2 55 H 35-45 MMHG Arterial Blood Partial Pressure O2 81 79-93 MMHG Arterial Blood HCO3 31 H 23-27 MMOL/L Arterial Blood Total CO2 32.3 H 21.0-31.0 MMOL/L Arterial Blood Oxygen Saturation 98 94-100 % Arterial Blood Base Excess 5.4 H -2.5-2.5 MMOL/L Ace Test P Blood Gas Ventilator Setting NO Blood Gas Inspired Oxygen 10 Influenza Type A (RT-PCR) Not Detected Not Detecte Influenza Type B (RT-PCR) Not Detected Not Detecte SARS-CoV-2 RNA (RT-PCR) Not Detected Not Detecte Urine Color YELLOW Urine Clarity CLEAR Urine pH 7.5 5-9 Urine Specific [place] 1.010 L 1.016-1.022 Urine Protein NEGATIVE NEGATIVE Urine Glucose (UA) NEGATIVE NEGATIVE Urine Ketones TRACE H NEGATIVE Urine Nitrite NEGATIVE NEGATIVE Urine Bilirubin NEGATIVE NEGATIVE Urine Urobilinogen 0.2 < = 1.0 MG/DL Urine Leukocyte Esterase NEGATIVE NEGATIVE Urine RBC (Auto) NEGATIVE NEGATIVE Urine RBC NONE /HPF Urine WBC RARE /HPF Urine Crystals NONE /LPF Urine Bacteria NEGATIVE /HPF Urine Casts NONE /LPF Urine Mucus NEGATIVE /LPF Urine Culture Indicated NO Urine Opiates Screen POSITIVE H NEGATIVE Urine Oxycodone Screen POSITIVE H NEGATIVE Urine Methadone Screen NEGATIVE NEGATIVE Urine Propoxyphene Screen NEGATIVE NEGATIVE Urine Barbiturates Screen NEGATIVE NEGATIVE Ur Tricyclic Antidepressants Screen NEGATIVE NEGATIVE Urine Phencyclidine Screen NEGATIVE NEGATIVE Urine Amphetamines Screen NEGATIVE NEGATIVE Urine Methamphetamines Screen NEGATIVE NEGATIVE Urine Benzodiazepines Screen NEGATIVE NEGATIVE Urine Cocaine Screen NEGATIVE NEGATIVE Urine Cannabinoids Screen POSITIVE H NEGATIVE My Orders Orders - CAPRICE MCGHEE DO Ed Iv/Invasive Line Start (11/02/22 10:39) Ekg Tracing (11/02/22 10:39) Catheter(Urinary) Insert & Ass 03,15 (11/02/22 10:39) O2 (11/02/22 10:39) Monitor-Rhythm Ecg Trace Only (11/02/22 10:39) Chest 1 View, Ap/Pa Only (11/02/22 10:39) Acetaminophen (11/02/22 10:39) Alcohol (11/02/22 10:39) Amylase (11/02/22 10:39) Arterial Blood Gas (11/02/22 10:39) Bnp [place] (11/02/22 10:39) Cbc With Automated Diff (11/02/22 10:39) Comprehensive Metabolic Panel (11/02/22 10:39) Creatine Kinase (11/02/22 10:39) Creatine Kinase Mb (11/02/22 10:39) Hs C Reactive Protein (11/02/22 10:39) Fibrin Degradation Products (11/02/22 10:39) Drug Screen Stat (Urine) (11/02/22 10:39) Lactic Acid Analyzer (11/02/22 10:39) Lipase (11/02/22 10:39) Magnesium (11/02/22 10:39) Protime With Inr (11/02/22 10:39) Partial Thromboplastin Time (11/02/22 10:39) Ua Culture If Indicated (11/02/22 10:39) Blood Culture (11/02/22 10:39) Erythrocyte Sedimentation Rate (11/02/22 10:39) Myoglobin Serum (11/02/22 10:39) Troponin I [place] (11/02/22 10:39) Covid 19 Inhouse Test (11/02/22 10:39) Sputum Culture (11/02/22 10:39) Urine Culture (11/02/22 10:39) Ed Iv/Invasive Line Start (11/02/22 10:39) Vital Signs Adult Sepsis Patie Q15M (11/02/22 10:39) O2 (11/02/22 10:39) Remove Rings In Anticipation O (11/02/22 10:39) Lactated Ringers (Lr 1000 Ml Iv Solution (11/02/22 10:45) Cefepime Injection (Maxipime Injection) (11/02/22 10:45) Lidocaine 2% (Urojet) (Xylocaine Urojet) (11/02/22 10:45) Influenza A And B By Pcr (11/02/22 10:39) Isolation Central Supply Req (11/02/22 10:39) Methylprednisolone Sod Succ (Solu-Medrol (11/02/22 10:39) Arterial Blood Gas (11/02/22 11:23) Ketorolac Injection (Toradol Injection) (11/02/22 11:30) Na Phos/Na Biphos Enema (Fleet Enema Shawn (11/02/22 12:30) Medications Given in ED Current Medications Medications Dose Ordered Sig/David Route Start Time Stop Time Status Last Admin Dose Admin Cefepime HCl 1000 mg/Sodium Chloride 50 ml @ 100 mls/hr ONCE ONCE IV 11/02/22 10:45 11/02/22 11:14 DC 11/02/22 11:58 100 MLS/HR Ketorolac Tromethamine 30 mg ONCE ONCE IVP 11/02/22 11:30 11/02/22 11:31 DC 11/02/22 11:58 30 MG Lactated Ringer's 1,000 ml @ 0 mls/hr Q0M ONCE IV 11/02/22 10:45 11/02/22 10:46 DC 11/02/22 10:50 1,000 MLS/HR Lidocaine HCl 10 ml ONCE ONCE TOP 11/02/22 10:45 11/02/22 10:46 DC 11/02/22 10:50 10 ML Sodium Biphosphate/ Sodium Phosphate 1 ea ONCE ONCE [place] 11/02/22 12:30 11/02/22 12:31 DC 11/02/22 13:10 1 EA Vital Signs/I&O 11/02/22 11/02/22 11/02/22 10:40 10:40 11:58 Temp 36.8 36.8 Pulse 69 Resp 20 B/P (MAP) 92/62 (72) Pulse Ox 100 100 O2 Delivery OxyMask OxyMask O2 Flow Rate 5.00 5.00 Capillary Refill : Progress Note : Progress Note PLACED IN ISOLATION ROOM PPE WORN COVID AND FLU TESTING DONE O2 SAT 88% ON ROOM AIR UP TO 100% ON 5L/NC, DECREASED TO 3L/NC AND O2 SATS 94-95% GIVEN: -IV FLUIDS -SOLU-MEDROL -ANTIBIOTICS NO [id number] IN PT'S CONDITION DURING ER STAY VITALS STABLE-NO HYPOTENSION OR TACHYCARDIA NO COUGH NO DYSPNEA AFTER NEB TREATMENT COMPLETED O2 SATS REMAIN IN MID 90'S ON HIS NORMAL O2 RATE OF 2L/NC PT DOES NOT MEET SEPSIS OR ADMIT CRITERIA PT REQUESTS ENEMA--ENEMA GIVEN WITH GOOD RESULTS REVIEWED TEST RESULTS, ANTICIPATED COURSE, NEED FOR FOLLOW UP AND RETURN PRECAUTIONS SPACER SENT HOME WITH PT AND WAS INSTRUCTED ON USE PT VERIFIES THAT HE HAS A NEBULIZER AT HOME, AND HAS 1 1/2 BOXES OF MEDICATION FOR IT. ECG Initial ECG Impression Date: Nov 02, 2022 Initial ECG Impression Time: 11:29 Initial ECG Rate: 61 Initial ECG Rhythm: Normal Sinus Initial ECG Comparisson: Unchanged Comment INTERPRETED BY ME Diagnostic Imaging Comments CXR--PER RADIOLOGIST REPORT AT 1126 Single AP view of chest is obtained with comparison made to study of 10/24/2022. Extensive background emphysema is again noted with prominent interstitial markings. This is most pronounced in the left upper lobe. No pneumothorax or new consolidation is identified. There is no evidence of significant pleural fluid. IMPRESSION: Extensive COPD without new abnormality or adverse change. Reviewed: Reviewed by Me Departure Impression Primary Impression: COPD exacerbation Additional Impressions: Chronic constipation Non-compliance CHRONIC ANEMIA Chronic prescription opiate use Disposition: HOME, SELF-CARE Condition: Stable Departure-Patient Inst. Decision time for Depature: 12:30 Referrals: JAY BAUTISTA MD (PCP/Family) Primary Care Physician Patient Instructions: COPD Diet, COPD Exacerbation, Adult ED, Dealing with Constipation from the Drugs You Take, Home Treatments for Constipation When You Have Cancer, How to Use a Nebulizer, Adult, How to Use a Spacer Add. Discharge Instructions: NO SMOKING!! USE YOUR HOME OXYGEN AT ALL TIMES USE YOUR NEBULIZER WITH ALBUTEROL / IPRATRPOIUM EVERY 4 HOURS NEEDED FOR SHORTNESS OF BREATH USE YOUR ADVAIR INHALER EVERY DAY PRESCRIBED USE MIRALAX EVERY DAY FOR CONSTIPATION--YOU MAY USE IT EVERY 4 HOURS IF NEEDED USE FLEET'S ENEMAS AND DULCOLAX SUPPOSITORIES NEEDED FOR BOWEL MOVEMENT YOU NEED TO BELL NECK HAMMERER YOUR PRESCRIPTIONS FROM THE PHARMACY AND TAKE PRESCRIBED FOLLOW UP WITH YOUR DR IN 3-4 DAYS FOR FURTHER CARE--CALL TODAY TO SCHEDULE AN APPOINTMENT All discharge instructions reviewed with patient and/or family. Voiced understanding. Scripts Methylprednisolone (Medrol) 4 Mg Tab.ds.pk 4 MG PO UD for 6 Days, #21 PKG PER DOSE PACK INSTRUCTIONS Prov: CAPRICE MCGHEE DO 11/02/22 Azithromycin (Zithromax) 500 Mg Tablet 500 MG PO DAILY for 5 Days, #5 TAB Prov: CAPRICE MCGHEE DO 11/02/22 Cefdinir (Cefdinir) 300 Mg Capsule 300 MG PO BID, #20 CAP Prov: CAPRICE MCGHEE K DO 11/02/22 CAPRICE MCGHEE DO Nov 02, 2022 11:26
[2022-11-02 11:27] LABS: ERYTHROCYTE SEDIMENTATION RATE 44 MM/HR (0-30)
[2022-11-02 11:33] LABS: FIBRIN DEGRADATION PRODUCTS <= 0.27 UG/ML (0.00-0.49); INR 1.4 (0.8-1.4); PARTIAL THROMBOPLASTIN TIME 35 SEC (24-35); PROTHROMBIN TIME PATIENT 17.3 SEC (12.2-14.7)
[2022-11-02 11:40] LABS: BACTERIA,URINE NEGATIVE /HPF; WBC,URINE RARE /HPF
[2022-11-02] MEDS: CEFEPIME INJECTION 1,000 MG in NS (IVPB) 50 ML IV ONE (11:58)
[2022-11-02] MEDS: KETOROLAC 30 MG/ML VIAL IVP ONE (11:58)
[2022-11-02] MEDS ORDERED: CEFD300C3 PO (12:44)
[2022-11-02] MEDS ORDERED: METH4TAB PO (12:44)
[2022-11-02] MEDS ORDERED: AZIT500T PO (12:44)
[2022-11-02] MEDS: FLEET ENEMA ADULT 1 EA BTL PR ONE (13:10)
[2022-11-02 14:45] VITALS: BP 102/61
== END 2022-11-02 14:52 | disposition home or self-care (01) ==
LOC: EDUNIT# 10:28 → ER 10:29
DX: J44.9 Chronic obstructive pulmonary disease, unspecified (principal); K59.09 Other constipation; D64.9 Anemia, unspecified; F11.90 Opioid use, unspecified, uncomplicated; Z91.199 Patient's noncompliance with other medical treatment and regimen due to unspecified reason; Z99.81 Dependence on supplemental oxygen; Z20.822 Contact with and (suspected) exposure to COVID-19
CPT/HCPCS: 51702; 71045; 80053; 80306; 81000; 82150; 82550; 82553; 82805; 83605; 83690; 83735; 83874; 83880; 84484; 85025; 85379; 85610; 85652; 85730; 86141; 87040; 87088; 87636; 93005; 93041; 99285; G0480; 36415; 80320

== ENCOUNTER 2022-11-29 12:57 | Inpatient (IN) | payer MEDICARE ==
[~2022-11-29] VITALS: Ht 175.3 cm; Wt 54.5 kg
[~2022-11-29 12:57] MED LIST changes: +AZIT500T PO; +METH4TAB PO
[2022-11-29] MEDS ORDERED: morphine INJ 10 MG/ML 1ML (SYR OR VIAL) IV STA (13:24)
[2022-11-29] MEDS ORDERED: methylPREDNISolone 125 MG (Solu-MEDROL) VIAL IV STA (13:24)
[2022-11-29] MEDS ORDERED: RT-ALBUTEROL/IPRATROPIUM 3 ML (DUONEB) VIAL INH ONE (13:30)
[2022-11-29 13:32] LABS: BASOPHILS # (AUTO) 0.1 10^3/uL (0.0-0.1); BASOPHILS % (AUTO) 0 % (0-10); EOSINOPHILS % (AUTO) 0 % (0-10); HEMATOCRIT 31 % (40-54); HEMOGLOBIN 9.3 g/dL (13.3-17.7); LYMPHOCYTES % (AUTO) 5 % (12-44); MEAN CORPUSCULAR HEMOGLOBIN 25 pg (25-34); MEAN CORPUSCULAR HGB CONC 30 g/dL (32-36); MEAN CORPUSCULAR VOLUME 82 fL (80-99); MEAN PLATELET VOLUME 9.7 fL (9.0-12.2); MONOCYTES % (AUTO) 10 % (0-12); NEUTROPHILS # (AUTO) 17.3 10^3/uL (1.8-7.8); NEUTROPHILS % (AUTO) 84 % (42-75); PLATELET COUNT 449 10^3/uL (130-400); WHITE BLOOD COUNT 20.7 10^3/uL (4.3-11.0)
[2022-11-29 13:37] LABS: ALBUMIN 3.6 GM/DL (3.2-4.5)
[2022-11-29 13:38] LABS: CHLORIDE 96 MMOL/L (98-107); POTASSIUM 3.9 MMOL/L (3.6-5.0); SODIUM 132 MMOL/L (135-145)
[2022-11-29 13:39] LABS: CALCIUM 9.1 MG/DL (8.5-10.1)
[2022-11-29 13:40] LABS: GLUCOSE 97 MG/DL (70-105); INR 1.2 (0.8-1.4); PROTHROMBIN TIME PATIENT 15.7 SEC (12.2-14.7); TOTAL PROTEIN 6.7 GM/DL (6.4-8.2)
[2022-11-29 13:41] LABS: CARBON DIOXIDE 25 MMOL/L (21-32)
[2022-11-29 13:42] LABS: BILIRUBIN,TOTAL 0.5 MG/DL (0.1-1.0)
[2022-11-29 13:44] LABS: ALKALINE PHOSPHATASE 95 U/L (40-136); CREATININE SERUM 0.61 MG/DL (0.60-1.30); GFR ESTIMATED 110
[2022-11-29 13:45] LABS: BUN/CREATININE RATIO 15
[2022-11-29] MEDS ORDERED: NS IV ONE (13:45)
[2022-11-29 13:46] LABS: MAGNESIUM 1.8 MG/DL (1.6-2.4)
[2022-11-29 13:47] LABS: ALANINE AMINOTRANSFERASE 26 U/L (0-55); LIPASE < 4 U/L (8-78)
--- NOTE | 2022-11-29 13:56 | ED Respiratory ---
General Chief Complaint: Respiratory Problems Stated Complaint: SOB Nursing Triage Note: PT ARRIVES TO ER VIA EMS FROM HOME. PT REPORTS SOB ONSET SEVERA DAYS AGO. PT HAS A HX OF COPD, PNEUMONIA, ON CONTINUOUS O2 AT 4.5 L AT HOME. PT ALSO REPORTS CHEST WALL PAIN, WORSE WITH PALPATION AND MOVEMENT. PT RECEIVED A DUONEB EN ROUTE PER EMS. Source: patient Exam Limitations: no limitations History of Present Illness Date Seen by Provider: Nov 29, 2022 Time Seen by Provider: 13:15 Initial Comments 62-year-old male presents to the ED with reports of shortness of breath and left-sided chest pain for the last 2 days. Also reports left-sided abdominal pain. Reports mild cough. He has a history of COPD, wears 4.5 L of oxygen all the time. States he last used his nebulizer yesterday, states it did not help. Denies fevers, nausea, vomiting. Last bowel movement was yesterday and was normal. Patient is a poor historian, he is unsure why he takes several of his medications. Medications he brought with him include Lasix, Xarelto, Percocet, diltiazem, baclofen, digoxin, atorvastatin, colace. Reports he also has an inhaler and nebulizer. Allergies and Home Medications Allergies Coded Allergies: No Known Drug Allergies (Verified , 07/11/09) Patient Home Medication List Home Medication List Reviewed: Yes Albuterol Sulfate (Ventolin Hfa) 18 Gm Hfa.aer.ad, 2 PUFF INH Q6H PRN for SHORTNESS OF BREATH, (Reported) Entered as Reported by: PRISCILLA DELGADO on 11/04/21 1557 Last Action: Held Alprazolam (Alprazolam) 0.5 Mg Tablet, 0.5 MG PO TID PRN for ANXIETY, (Reported) Entered as Reported by: PRISCILLA DELGADO on 11/30/22 1151 Last Action: Held Atorvastatin Calcium (Atorvastatin Calcium) 40 Mg Tablet, 40 MG PO DAILY, (Reported) Entered as Reported by: PRISCILLA DELGADO on 03/06/22 1145 Last Action: Continued Baclofen (Baclofen) 10 Mg Tablet, 10 MG PO BID PRN for MUSCLE SPASMS, (Reported) Entered as Reported by: PRISCILLA DELGADO on 11/04/21 1557 Last Action: Reviewed Digoxin (Digoxin) 125 Mcg (0.125 Mg) Tablet, 250 MCG PO DAILY, (Reported) Entered as Reported by: PRISCILLA DELGADO on 04/20/22 114 Last Action: Continued Diltiazem HCl (Diltiazem 24Hr ER) 120 Mg Cap.er.24h, 120 MG PO DAILY, (Reported) Entered as Reported by: PRISCILLA DELGADO on 11/30/22 114 Last Action: Held Docusate Sodium (Docusate Sodium) 100 Mg Capsule, 100 MG PO BID PRN for CONSTIPATION-1ST LINE, (Reported) Entered as Reported by: PRISCILLA DELGADO on 11/30/22 114 Last Action: Held Furosemide (Furosemide) 40 Mg Tablet, 40 MG PO DAILY, (Reported) Entered as Reported by: PRISCILLA DELGADO on 03/06/22 114 Last Action: Held Ipratropium/Albuterol Sulfate (Iprat-Albut 0.5-3(2.5) mg/3 ml) 0.5 Mg-3 Mg (2.5 Mg Base)/3 Ml Ampul.neb, 3 ML IH BID PRN for SHORTNESS OF BREATH, (Reported) Entered as Reported by: PRISCILLA DELGADO on 03/06/22 114 Last Action: Held Polyethylene Glycol 3350 (Miralax) 17 Gram Powd.pack, 17 GM PO DAILY PRN for CONSTIPATION-2ND LINE, (Reported) Entered as Reported by: PRISCILLA DELGADO on 11/30/22 114 Last Action: Held Rivaroxaban (Xarelto) 20 Mg Tablet, 20 MG PO DAILY, (Reported) Entered as Reported by: PRISCILLA DELGADO on 12/22/20 1254 Last Action: Held Discontinued Medications Acetaminophen with Codeine (Acetaminop-Codeine 120-12 mg/5) 120 Mg-12 Mg/5 Ml (5 Ml) Solution, 5 ML PO Q4H PRN for cough/pain Discontinued Reason: No Longer Taking Prescribed by: MYA MORSE on 07/13/22 110 Last Action: Discontinued Albuterol Sulfate (Ventolin Hfa) 1 Puff Puff, 2 PUFF IH Q4H PRN for shortness of breath Discontinued Reason: No Longer Taking Prescribed by: MYA MORSE on 07/13/22 1102 Last Action: Discontinued Alprazolam (Alprazolam) 0.5 Mg Tablet, 0.5 MG PO Q8H PRN for ANXIETY, (Reported) Discontinued Reason: No Longer Taking Entered as Reported by: PRISCILLA DELGADO on 11/04/21 1557 Last Action: Discontinued Azithromycin (Zithromax) 500 Mg Tablet, 500 MG PO DAILY Discontinued Reason: No Longer Taking Prescribed by: CAPRICE MCGHEE on 11/02/22 1244 Last Action: Discontinued Bisacodyl (Dulcolax) 10 Mg Supp.rect, 10 MG RC DAILY Discontinued Reason: No Longer Taking Prescribed by: MIRYAM ROMAN on 10/31/22 0643 Last Action: Discontinued Cefdinir (Cefdinir) 300 Mg Capsule, 300 MG PO BID Discontinued Reason: No Longer Taking Prescribed by: DOREEN CARRILLO on 10/24/22 0745 Last Action: Discontinued Cefdinir (Cefdinir) 300 Mg Capsule, 300 MG PO BID Discontinued Reason: No Longer Taking Prescribed by: CAPRICE MCGHEE on 11/02/224 Last Action: Discontinued Doxycycline Hyclate (Doxycycline Hyclate) 100 Mg Tablet, 100 MG PO BID Discontinued Reason: No Longer Taking Prescribed by: MYA MORSE on 07/13/22 1102 Last Action: Discontinued Duloxetine HCl (Duloxetine HCl) 60 Mg Capsule.dr, 60 MG PO DAILY, (Reported) Discontinued Reason: No Longer Taking Entered as Reported by: PRISCILLA DELGADO on 12/22/20 1254 Last Action: Discontinued Ferrous Sulfate (Iron) 325 Mg (65 Mg Iron) Tablet, 325 MG PO DAILY, (Reported) Discontinued Reason: No Longer Taking Entered as Reported by: PRISCILLA DELGADO on 04/20/22 1146 Last Action: Discontinued Gabapentin (Gabapentin) 400 Mg Capsule, 400 MG PO TID, (Reported) Discontinued Reason: No Longer Taking Entered as Reported by: PRISCILLA DELGADO on 11/04/21 1557 Last Action: Discontinued Methylprednisolone (Methylprednisolone Dose Pack) 4 Mg Tab.ds.pk, 4 MG PO UD Discontinued Reason: No Longer Taking Prescribed by: DOREEN CARRILLO on 10/24/22 0745 Last Action: Discontinued Methylprednisolone (Medrol) 4 Mg Tab.ds.pk, 4 MG PO UD Discontinued Reason: No Longer Taking Prescribed by: CAPRICE MCGHEE on 11/02/22 1244 Last Action: Discontinued Oxycodone HCl (Oxycodone HCl) 5 Mg Tablet, 5 MG PO Q6H PRN for PAIN-SEVERE (8- 10), (Reported) Discontinued Reason: No Longer Taking Entered as Reported by: PRISCILLA DELGADO on 11/04/21 1557 Last Action: Discontinued Oxycodone HCl/Acetaminophen (Percocet 5-325 mg Tablet) 5 Mg-325 Mg Tablet, 1 TAB PO Q6H PRN for PAIN-MODERATE Discontinued Reason: No Longer Taking Prescribed by: MIRYAM ROMAN on 10/31/22 0824 Last Action: Discontinued Polyethylene Glycol 3350 (Miralax) 17 Gram/Dose Powder, 17 GM PO Q4H PRN for CONSTIPATION Discontinued Reason: No Longer Taking Prescribed by: MIRYAM ROMAN on 10/31/22 0643 Last Action: Discontinued Potassium Chloride (Potassium Chloride) 20 Meq Tab.er.prt, 20 MEQ PO DAILY, (Reported) Discontinued Reason: No Longer Taking Entered as Reported by: PRISCILLA DELGADO on 03/06/22 1145 Last Action: Discontinued Prednisone (Prednisone) 50 Mg Tab, 50 MG PO DAILY Discontinued Reason: No Longer Taking Prescribed by: MYA MORSE on 07/13/22 1102 Last Action: Discontinued Tramadol HCl (Tramadol HCl) 50 Mg Tablet, 50 MG PO Q6H PRN for PAIN Discontinued Reason: No Longer Taking Prescribed by: DOREEN CARRILLO on 10/24/22 0827 Last Action: Discontinued Review of Systems Review of Systems Constitutional: see HPI Past Sthwzor-Lidyit-Jqmvjb Hx Patient Social History Smoking Status: Former Smoker Alcohol Use?: No Pt feels they are or have been: No Immunizations Up To Date Tetanus Booster (TDap): Less than 5yrs PED Vaccines UTD: No First/Initial COVID19 Vaccinat: RECEIVED, UNK WHEN Second COVID19 Vaccination Hemanth: RECEIVED, UNK WHEN Third COVID19 Vaccination Date: RECEIVED, UNK WHEN Seasonal Allergies Seasonal Allergies: Yes (hayfever) Past Medical History Surgery/Hospitalization HX: AFIB, HTN, COPD, ANEMIA, CAD, CHRONIC RESPIRATORY FAILURE WITH HYPOXIA PNEUMONIA ortho heart cath stents, LUNG MASS Surgeries: Yes (hernia repair, l ankle, l wrist, ) Abdominal, Orthopedic Respiratory: Yes Pneumonia, COPD Currently Using CPAP: No Currently Using BIPAP: No Cardiac: Yes Atrial Fibrillation, Deep Vein Thrombosis, Hypertension Neurological: Yes (neuralgia) Neuropathy Sexually Transmitted Disease: No HIV/AIDS: No Genitourinary: Yes Renal Failure Gastrointestinal: Yes Abdominal Hernia, Gastrointestinal Bleed Musculoskeletal: Yes Chronic Back Pain Endocrine: No HEENT: No (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 BELLAMY: CONCLUSION: 1. Mild coronary artery disease nonobstructive disease 2. Normal left ventricular size and systolic function estimate ejection fraction 60% 3. Normal abdominal aorta and bifurcation with runoff down to the trifurcation with slow flow in the SFA bilaterally, probably small vessel disease distally DISCUSSION AND RECOMMENDATION: Maximizing medical therapy, no intervention is recommended Physical Exam Vital Signs - First Documented 11/29/22 11/29/22 13:00 13:15 Temp 36.6 Pulse 107 Resp 18 B/P (MAP) 101/72 (82) Pulse Ox 99 O2 Delivery Nasal Cannula O2 Flow Rate 4.00 Capillary Refill : Height: '" Weight: lbs. oz. kg; 18.00 BMI Method: General Appearance: WD/WN, mild distress Neck: supple, normal inspection Respiratory: respiratory distress, accessory muscle use, wheezing, other (tachypnea) Cardiovascular: no edema, no gallop, no JVD, no murmur, tachycardia Gastrointestinal: normal bowel sounds, soft, no organomegaly, no pulsatile mass, guarding, tenderness (Left side) Extremities: normal range of motion, normal inspection Neurologic/Psychiatric: alert, normal mood/affect Skin: normal color, warm/dry Focused Exam Lactate Level 11/29/22 13:07: Lactic Acid Level 2.54*H 11/29/22 15:16: Lactic Acid Level 2.25*H Lactic Acid Level Laboratory Tests Test 11/29/22 13:07 11/29/22 15:16 Lactic Acid Level 2.54 MMOL/L (0.50-2.00) *H 2.25 MMOL/L (0.50-2.00) *H Procedures/Interventions Date of ETT Placement: Apr 19, 2022 Time of ETT Placement: 1400 Progress/Results/Core Measures Suspected Sepsis SIRS Temperature: Pulse: 107 Respiratory Rate: 18 Laboratory Tests 11/29/22 13:07: White Blood Count 20.7H Blood Pressure 101 /72 Mean: 82 11/29/22 13:07: Lactic Acid Level 2.54*H 11/29/22 15:16: Lactic Acid Level 2.25*H Laboratory Tests 11/29/22 13:07: Creatinine 0.61, INR Comment 1.2, Platelet Count 449H, Total Bilirubin 0.5 Results/Orders Lab Results Laboratory Tests Test 11/29/22 13:07 11/29/22 15:16 Range/Units White Blood Count 20.7 H 4.3-11.0 10^3/uL Red Blood Count 3.73 L 4.30-5.52 10^6/uL Hemoglobin 9.3 L 13.3-17.7 g/dL Hematocrit 31 L 40-54 % Mean Corpuscular Volume 82 80-99 fL Mean Corpuscular Hemoglobin 25 25-34 pg Mean Corpuscular Hemoglobin Concent 30 L 32-36 g/dL Red Cell Distribution Width 16.6 H 10.0-14.5 % Platelet Count 449 H 130-400 10^3/uL Mean Platelet Volume 9.7 9.0-12.2 fL Immature Granulocyte % (Auto) 1 % Neutrophils (%) (Auto) 84 H 42-75 % Lymphocytes (%) (Auto) 5 L 12-44 % Monocytes (%) (Auto) 10 0-12 % Eosinophils (%) (Auto) 0 0-10 % Basophils (%) (Auto) 0 0-10 % Neutrophils # (Auto) 17.3 H 1.8-7.8 10^3/uL Lymphocytes # (Auto) 1.0 1.0-4.0 10^3/uL Monocytes # (Auto) 2.0 H 0.0-1.0 10^3/uL Eosinophils # (Auto) 0.0 0.0-0.3 10^3/uL Basophils # (Auto) 0.1 0.0-0.1 10^3/uL Immature Granulocyte # (Auto) 0.3 H 0.0-0.1 10^3/uL Neutrophils % (Manual) 73 % Lymphocytes % (Manual) 7 % Monocytes % (Manual) 8 % Band Neutrophils 12 % Clumped Platelets OCCASIONAL Hypochromasia MODERATE Anisocytosis SLIGHT Target Cells SLIGHT Prothrombin Time 15.7 H 12.2-14.7 SEC INR Comment 1.2 0.8-1.4 Activated Partial Thromboplast Time 40 H 24-35 SEC D-Dimer 0.39 0.00-0.49 UG/ML Sodium Level 132 L 135-145 MMOL/L Potassium Level 3.9 3.6-5.0 MMOL/L Chloride Level 96 L 98-107 MMOL/L Carbon Dioxide Level 25 21-32 MMOL/L Anion Gap 11 5-14 MMOL/L Blood Urea Nitrogen 9 7-18 MG/DL Creatinine 0.61 0.60-1.30 MG/DL Estimat Glomerular Filtration Rate 110 BUN/Creatinine Ratio 15 Glucose Level 97 70-105 MG/DL Lactic Acid Level 2.54 *H 2.25 *H 0.50-2.00 MMOL/L Calcium Level 9.1 8.5-10.1 MG/DL Corrected Calcium 9.4 8.5-10.1 MG/DL Magnesium Level 1.8 1.6-2.4 MG/DL Total Bilirubin 0.5 0.1-1.0 MG/DL Aspartate Amino Transf (AST/SGOT) 20 5-34 U/L Alanine Aminotransferase (ALT/SGPT) 26 0-55 U/L Alkaline Phosphatase 95 40-136 U/L Troponin I < 0.028 <0.028 NG/ML B-Type Natriuretic Peptide 43.6 <100.0 PG/ML Total Protein 6.7 6.4-8.2 GM/DL Albumin 3.6 3.2-4.5 GM/DL Lipase < 4 L 8-78 U/L Micro Results Microbiology 11/29/22 Blood Culture - Preliminary, Resulted No growth 11/29/22 Blood Culture - Preliminary, Resulted Gram Positive Cocci in Cluster My Orders Orders - SABRINA MISTRY HOTBED TRANSFER OPERATOR Cbc With Automated Diff (11/29/22 13:24) Magnesium (11/29/22 13:24) Chest 1 View, Ap/Pa Only (11/29/22 13:24) Ekg Tracing (11/29/22 13:24) Comprehensive Metabolic Panel (11/29/22 13:24) Protime With Inr (11/29/22 13:24) Partial Thromboplastin Time (11/29/22 13:24) O2 (11/29/22 13:24) Monitor-Rhythm Ecg Trace Only (11/29/22 13:24) Ed Iv/Invasive Line Start (11/29/22 13:24) Lipase (11/29/22 13:24) Bnp Refugio (11/29/22 13:24) Fibrin Degradation Products (11/29/22 13:24) Troponin I [place]rose (11/29/22 13:24) Morphine Injection (Morphine Injection (11/29/22 13:24) Blood Culture (11/29/22 13:24) Albuterol/Ipra Inhalation Soln (Duoneb I (11/29/22 13:30) Methylprednisolone Sod Succ (Solu-Medrol (11/29/22 13:24) Lactic Acid Analyzer (11/29/22 13:24) Svn Small Volume Nebulizer (11/29/22 13:24) Manual Differential (11/29/22 13:07) Ns Iv 1000 Ml (Sodium Chloride 0.9%) (11/29/22 13:45) Iohexol Injection (Omnipaque 350 Mg/Ml 1 (11/29/22 14:45) Received Contrast (Hold Metformin- Contr (11/29/22 14:45) Ns (Ivpb) (Sodium Chloride 0.9% Ivpb Bag (11/29/22 14:45) Fentanyl Inj (Sublimaze Injection) (11/29/22 14:45) Ct Chest/Abdomen/Pelvis W (11/29/22 14:52) Ceftriaxone 1 Gm Pre-Mix (Rocephin 1 Gm (11/29/22 15:30) Azithromycin Injection (Zithromax Inject (11/29/22 15:30) Ed Admission (Communication) (11/29/22 16:08) Ketorolac Injection (Toradol Injection) (11/29/22 16:45) Medications Given in ED Vital Signs/I&O 11/29/22 11/29/22 11/29/22 11/29/22 13:00 13:15 13:58 14:27 Temp 36.6 Pulse 107 Resp 18 B/P (MAP) 101/72 (82) Pulse Ox 99 96 96 O2 Delivery Nasal Cannula Nasal Cannula Nasal Cannula Nasal Cannula O2 Flow Rate 4.00 4.00 4.00 11/29/22 11/29/22 15:14 17:10 Pulse 94 93 B/P (MAP) 107/71 (83) 94/56 Pulse Ox 98 O2 Delivery Nasal Cannula O2 Flow Rate 6.00 11/30/22 00:00 Intake Total 2002 ml Balance 2002 ml Capillary Refill : Blood Pressure Mean: 82 Progress Note #1: Time: 13:30 Progress Note Patient seen and evaluated, laying in bed, mild distress, tachypneic. Based on exam and symptoms, concern for COPD exacerbation, CHF exacerbation, pneumonia, sepsis. Work-up initiated including CBC, CMP, troponin, magnesium, D-dimer, coags, chest x-ray, EKG, blood cultures x2, lactic acid. DuoNeb and Solu-Medrol ordered. Progress Note #2: Time: 14:53 Progress Note Labs reviewed. CBC shows WBC high at 20.7, RBC low 3.73, hemoglobin low 9.3, hematocrit low 21, hemoglobin hematocrit better than previous labs, neutrophil high at 84. CMP shows low sodium 132, low chloride 97, normal creatinine 0.71, normal GFR 110. Lipase normal. Troponin negative. BNP 43.6. Lactic acid critically high at 2.54. PT elevated 15.7, APTT elevated at 40. D-dimer normal 0.39. Wells score for PE is 1.5, low risk. Considered CT angio, but D-dimer normal. Chest x-ray reviewed. Extensive background emphysema and COPD with increasing right lateral pleural thickening which could be on the basis of inflammation, fluid or potentially developing infarct. Will obtain CT chest/abdomen/pelvis for further evaluation. Progress Note #3: Time: 15:[address] reviewed. Severe COPD redemonstrated with likely new pneumonia in the right upper lobe. No thoracic effusion or abscess. Colonic constipation. Patient has history of chronic constipation due to opiate use. Antibiotics ordered for septic pneumonia. Will call Dr. Oliveira regarding admission. Patient reevalua denny, states still having a lot of pain and feels short of breath. Lung sounds are clear at this time. ECG Initial ECG Impression Date: Nov 29, 2022 Initial ECG Impression Time: 13:51 Initial ECG Rate: 93 Initial ECG Rhythm: Normal Sinus Initial ECG Intervals: Normal Initial ECG Impression: Nonspecific Changes Initial ECG Comparisson: Unchanged Comment ST depression in lead II, III, avf. No T wave inversion or Q waves in these leads. Q waves noted in V1 and V2. These appear similar to previous EKG. Diagnostic Imaging Diagonstic Imaging: Xray Plain Films/CT/US/NM/MRI: chest Comments [facility] [place] NAME: ARSENIO JOLLY [facility] REC#: [id number] PT STATUS: REG ER : 1960 PHYSICIAN: SABRINA MISTRY APRN ADMIT DATE: 11/29/22/ER Signed Date of Exam:11/29/22 CHEST 1 VIEW, AP/PA ONLY INDICATION: Chest pain. AP views of the chest is obtained. Comparison is made study of 11/02/2022. There is extensive bilateral air trapping. Prominent interstitial markings are seen throughout the lungs. There is no evidence of pneumothorax. No consolidation is identified. There does appear to be an increase in pleural thickening laterally in the right chest. IMPRESSION: Extensive background emphysema and COPD with increasing right lateral pleural thickening which could be on the basis of inflammation, fluid or potentially developing infarct. Dictated by: Dictated on workstation # [id number] Dict: 11/29/22 1355 Trans: 11/29/22 1518 [id number] Interpreted by: AUGUSTO LOPEZ MD Electronically signed by: AUGUSTO LOPEZ MD 11/29/22 1518 Diagonstic Imaging: CT Plain Films/CT/US/NM/MRI: chest, abdomen, pelvis Comments [facility] [place], [place] NAME: ARSENIO JOLLY [facility] REC#: [id number] PT STATUS: REG ER : 1960 PHYSICIAN: SABRINA MISTRY APRN ADMIT DATE: 11/29/22/ER Signed Date of Exam:11/29/22 CT CHEST/ABDOMEN/PELVIS W PROCEDURE: CT chest, abdomen, and pelvis with contrast. TECHNIQUE: Multiple contiguous axial images were obtained through the chest, abdomen, and pelvis after the administration of intravenous contrast. Auto Exposure Controls were utilized during the CT exam to meet ALARA standards for radiation dose reduction. INDICATION: Shortness of breath, chest pain and hypoxia. Compared with CT chest, abdomen and pelvis done most recently 10/24/2022. Chest: There is severe emphysema and bullous disease in the lungs. There is a chronic finding noted. There is hyperexpansion of the right greater than left lung. While there is some chronic apical pleural-parenchymal scarring, there is progressive density in the right upper lobe where superimposition of pneumonia is suspected. No findings of pulmonary edema. No abscess, effusion or empyema. There is no pneumothorax or pneumomediastinum. The thoracic aorta is nonaneurysmal. There is coronary artery atherosclerotic vascular calcifications. No thoracic adenopathy. Abdomen and pelvis: Colonic constipation with air and stool distending the non-thickened rectal vault. No perirectal edema. Rectum distended 9.5 cm transverse. No segmental small or large bowel wall thickening no pneumatosis. The kidneys unobstructed. Liver, gallbladder, bile ducts, spleen, adrenals and pancreas nonacute. No pneumatosis. No free air. No air-fluid levels. Urinary bladder unremarkable. The bony structures appeared nonacute. IMPRESSION: CHEST: Severe COPD redemonstrated with likely new pneumonia in the right upper lobe. No thoracic effusion or abscess. ABDOMEN AND PELVIS: Colonic constipation with distention of the rectal vault to 9.5 cm with rectal stool and air. No rectal wall thickening and no perirectal stranding or edema. No other significant finding. Dictated by: Dictated on workstation # [id number] Dict: 11/29/22 1511 Trans: 11/29/22 1650 [facility] [id number] Interpreted by: AUGUSTO FOSTER Electronically signed by: AUGUSTO FOSTER 11/29/22 1650 Departure Communication (Admissions) Time/Spoke to Admitting Phy: 15:[address] Oliveira, regarding admission. He agrees to admit patient. He will place admission orders. He would like patient [facility] to [facility] as an inpatient. Impression Primary Impression: Sepsis due to pneumonia Disposition: ADMITTED INPATIENT Condition: Stable Admissions Decision to Admit Reason: Admit from ER (General) Decision to Admit/Date: Nov 29, 2022 Time/Decision to Admit Time: 15:59 Departure-Patient Inst. Referrals: JAY BAUTISTA MD (PCP/Family) Primary Care Physician SABRINA MISTRY APRN Nov 29, 2022 13:56
[2022-11-29 14:00] LABS: BAND NEUTROPHILS 12 %; LYMPHOCYTES % (MANUAL) 7 %; MONOCYTES % (MANUAL) 8 %; NEUTROPHILS % (MANUAL) 73 %; PLATELET CLUMPS OCCASIONAL
[2022-11-29 14:01] LABS: ANISOCYTOSIS SLIGHT; HYPOCHROMASIA MODERATE; TARGET CELLS SLIGHT
--- NOTE | 2022-11-29 14:01 | Diagnostic Imaging Report ---
INDICATION: Chest pain. AP views of the chest is obtained. Comparison is made study of 11/02/2022. There is extensive bilateral air trapping. Prominent interstitial markings are seen throughout the lungs. There is no evidence of pneumothorax. No consolidation is identified. There does appear to be an increase in pleural thickening laterally in the right chest. IMPRESSION: Extensive background emphysema and COPD with increasing right lateral pleural thickening which could be on the basis of inflammation, fluid or potentially developing infarct. Dictated by: Dictated on workstation # [id number]
[2022-11-29] MEDS ORDERED: NS 100 ML (IVPB) BAG IV ONE (14:45)
[2022-11-29] MEDS ORDERED: HOLD METFORMIN - RECEIVED CONTRAST 20 ML VIAL IV SCH (14:45)
[2022-11-29] MEDS ORDERED: fentaNYL INJ 100 MCG/2 ML AMP IVP ONE (14:45)
[2022-11-29] MEDS ORDERED: IOHEXOL 350 MG/ML 100 ML (OMNIPAQUE 350) VIAL IV ONE (14:45)
--- NOTE | 2022-11-29 15:26 | Diagnostic Imaging Report ---
PROCEDURE: CT chest, abdomen, and pelvis with contrast. TECHNIQUE: Multiple contiguous axial images were obtained through the chest, abdomen, and pelvis after the administration of intravenous contrast. Auto Exposure Controls were utilized during the CT exam to meet ALARA standards for radiation dose reduction. INDICATION: Shortness of breath, chest pain and hypoxia. Compared with CT chest, abdomen and pelvis done most recently 10/24/2022. Chest: There is severe emphysema and bullous disease in the lungs. There is a chronic finding noted. There is hyperexpansion of the right greater than left lung. While there is some chronic apical pleural-parenchymal scarring, there is progressive density in the right upper lobe where superimposition of pneumonia is suspected. No findings of pulmonary edema. No abscess, effusion or empyema. There is no pneumothorax or pneumomediastinum. The thoracic aorta is nonaneurysmal. There is coronary artery atherosclerotic vascular calcifications. No thoracic adenopathy. Abdomen and pelvis: Colonic constipation with air and stool distending the non-thickened rectal vault. No perirectal edema. Rectum distended 9.5 cm transverse. No segmental small or large bowel wall thickening no pneumatosis. The kidneys unobstructed. Liver, gallbladder, bile ducts, spleen, adrenals and pancreas nonacute. No pneumatosis. No free air. No air-fluid levels. Urinary bladder unremarkable. The bony structures appeared nonacute. IMPRESSION: CHEST: Severe COPD redemonstrated with likely new pneumonia in the right upper lobe. No thoracic effusion or abscess. ABDOMEN AND PELVIS: Colonic constipation with distention of the rectal vault to 9.5 cm with rectal stool and air. No rectal wall thickening and no perirectal stranding or edema. No other significant finding. Dictated by: Dictated on workstation # [id number]
[2022-11-29] MEDS ORDERED: cefTRIAXone 1 GM PRE-MIX 50 ML IV ONE (15:30)
[2022-11-29] MEDS ORDERED: AZITHROMYCIN INJECTION 500 MG in NS (IVPB) 250 ML IV ONE (15:30)
[2022-11-29] MEDS ORDERED: KETOROLAC 30 MG/ML VIAL IVP ONE (16:45)
[2022-11-29] MEDS ORDERED: BISACODYL 10 MG SUPP (DULCOLAX) PR PRN (17:15)
[2022-11-29] MEDS ORDERED: diphenhydrAMINE 25 MG TAB (BENADRYL) PO PRN (17:15)
[2022-11-29] MEDS ORDERED: ENOXAPARIN 40 MG/0.4 ML (LOVENOX) SYR SC SCH (17:15)
[2022-11-29] MEDS ORDERED: ANTACID SUSP 30 ML UDC (MYLANTA) PO PRN (17:15)
[2022-11-29] MEDS ORDERED: ONDANSETRON 4 MG/2 ML (SDV) Z0FRAN IV PRN (17:15)
[2022-11-29] MEDS ORDERED: MILK OF MAGNESIA 400 MG/5 ML 30 ML UDC PO PRN (17:15)
[2022-11-29] MEDS ORDERED: CALCIUM CARBONATE 500 MG (TUMS) TAB.CHEW PO PRN (17:15)
[2022-11-29] MEDS ORDERED: NS IV 500 ML 500 ML IV PRN (17:15)
[2022-11-29] MEDS ORDERED: ONDANSETRON 4 MG (ZOFRAN) ORAL DISSOLVE TAB PO PRN (17:15)
[2022-11-29] MEDS ORDERED: BACLOFEN 10 MG (LIORESAL) TAB PO PRN (17:15)
[2022-11-29] MEDS ORDERED: diphenhydrAMINE 50 MG/ML INJ (BENADRYL) IVP PRN (17:15)
[2022-11-29] MEDS ORDERED: polyethylene glycoL POWDER 17 GM (MIRALAX) PACK PO PRN (17:15)
[2022-11-29] MEDS: LACTATED RINGERS 1,000 ML IV SCH (18:14)
[2022-11-29] MEDS: HYDROcodone/APAP 5 MG/325 MG (LORTAB) TAB PO PRN (18:14)
[2022-11-29] MEDS: morphine INJ 10 MG/ML 1ML (SYR OR VIAL) IVP PRN (18:15)
[2022-11-29 18:58] VITALS: BP 101/101
[2022-11-29] MEDS ORDERED: RT-ALBUTEROL SULF 2.5 MG/3 ML PRE-MIX VIAL INH PRN (19:15)
[2022-11-29 19:24] VITALS: BP 90/50
[2022-11-29] MEDS: ALPRAZolam 0.5 MG (XANAX) TAB PO PRN (22:26)
[2022-11-29] MEDS: GABAPENTIN 400 MG (NEURONTIN) CAP PO SCH (22:26)
[2022-11-29] MEDS: SENNOSIDES 8.6 MG (SENOKOT) TAB PO SCH (22:26)
[2022-11-29] MEDS: DOCUSATE SODIUM 100 MG (COLACE) CAP PO SCH (22:26)
[2022-11-29] MEDS: RT-ALBUTEROL/IPRATROPIUM 3 ML (DUONEB) VIAL INH SCH (22:39)
[2022-11-29] MEDS: MELATONIN 3 MG TABLET PO PRN (23:41)
[2022-11-29 23:48] VITALS: BP 97/55
[2022-11-30] VITALS (8 sets, daily range): BP systolic 87–114; BP diastolic 48–70
[2022-11-30] MEDS: LACTATED RINGERS 1,000 ML IV SCH ×4 (01:50→20:15)
[2022-11-30] MEDS: RT-ALBUTEROL/IPRATROPIUM 3 ML (DUONEB) VIAL INH SCH ×6 (03:18→22:30)
[2022-11-30 05:35] LABS: BASOPHILS % (AUTO) 0 % (0-10); EOSINOPHILS % (AUTO) 0 % (0-10); HEMATOCRIT 24 % (40-54); HEMOGLOBIN 7.3 g/dL (13.3-17.7); LYMPHOCYTES # (AUTO) 0.4 10^3/uL (1.0-4.0); LYMPHOCYTES % (AUTO) 3 % (12-44); MEAN CORPUSCULAR HEMOGLOBIN 25 pg (25-34); MEAN CORPUSCULAR HGB CONC 31 g/dL (32-36); MEAN CORPUSCULAR VOLUME 81 fL (80-99); MEAN PLATELET VOLUME 9.9 fL (9.0-12.2); MONOCYTES % (AUTO) 7 % (0-12); NEUTROPHILS # (AUTO) 14.2 10^3/uL (1.8-7.8); NEUTROPHILS % (AUTO) 90 % (42-75); PLATELET COUNT 372 10^3/uL (130-400); WHITE BLOOD COUNT 15.7 10^3/uL (4.3-11.0)
[2022-11-30 05:49] LABS: CALCIUM 8.9 MG/DL (8.5-10.1); CREATININE SERUM 0.6 MG/DL (0.60-1.30); POTASSIUM 3.7 MMOL/L (3.6-5.0)
[2022-11-30] MEDS: MAGNESIUM 1 GM/100 ML IVPB 100 ML IV SCH (05:57)
[2022-11-30] MEDS: POTASSIUM CL 10MEQ/50ML IVPB 50 ML IV SCH (05:57)
[2022-11-30] MEDS: KCL 20 MEQ TAB (K-DUR) PO SCH (05:58)
[2022-11-30] MEDS: POTASSIUM BICARB 20 MEQ (EFFER-K) TABLET PO SCH (05:58)
[2022-11-30] MEDS: dilTIAZem120 MG (CARDIZEM CD) CAP PO SCH ×2 (08:05→08:12)
[2022-11-30] MEDS: ALPRAZolam 0.5 MG (XANAX) TAB PO PRN ×2 (08:05→20:12)
[2022-11-30] MEDS: DULoxetine 30 MG (CYMBALTA) CAP PO SCH (08:05)
[2022-11-30] MEDS: DOCUSATE SODIUM 100 MG (COLACE) CAP PO SCH ×2 (08:05→20:13)
[2022-11-30] MEDS: GABAPENTIN 400 MG (NEURONTIN) CAP PO SCH ×2 (08:05→20:13)
[2022-11-30] MEDS: FOLIC ACID 1 MG TAB PO SCH (08:06)
[2022-11-30] MEDS: SENNOSIDES 8.6 MG (SENOKOT) TAB PO SCH ×2 (08:06→20:13)
[2022-11-30] MEDS ORDERED: KCL 20 MEQ TAB (K-DUR) PO ONE (09:00)
[2022-11-30] MEDS: morphine INJ 10 MG/ML 1ML (SYR OR VIAL) IVP PRN (09:07)
[2022-11-30] MEDS ORDERED: LACTATED RINGERS 1,000 ML IV ONE (10:45)
[2022-11-30] MEDS ORDERED: DOCU100C37 PO (11:46)
[2022-11-30] MEDS ORDERED: DILT-27 PO (11:46)
[2022-11-30] MEDS ORDERED: POLY17PO6 PO (11:46)
[2022-11-30] MEDS ORDERED: ALPR0.5T7 PO (11:51)
[2022-11-30] MEDS: HYDROmorphone 2 MG/ML VIAL (DILAUDID) IV PRN ×3 (12:30→20:14)
[2022-11-30] MEDS ORDERED: IRON SUCROSE 200 MG/10 ML (VENOFER) VIAL IV ONE (14:30)
--- NOTE | 2022-11-30 14:36 | History & Physical-Hospitalist ---
History of Present Illness HPI/Chief Complaint Moshe Soto (Willy) is a 62 year old male with PMH HTN, HLD, AFib, PAD, CAD, COPD, who presented with shortness of breath. He has had a cough. He has had chest pain. He also reports abdominal pain. He has been nauseous. He denies vomiting. He denies diarrhea. He denies fevers and chills. He is on 4 L continous oxygen at baseline. Source: patient Exam Limitations: no limitations Date Seen 11/30/22 Time Seen by a Provider: 08:25 Attending Physician No,Local Physician PCP Admitting Physician: Clau Duong MD Attending Physician: Clau Duong MD Referring Physician Date of Admission Nov 29, 2022 at 17:20 Home Medications & Allergies Home Medications Reviewed patient Home Medication Reconciliation performed by pharmacy medication reconciliations medical lab technician and/or nursing. Patients Allergies have been reviewed. Allergies Allergies Coded Allergies No Known Drug Allergies ([id number]/25/09) Past Vyhtxjl-Jhxdik-Vohcke Hx Patient Social History Tobacco Use?: Yes Tobacco type used: Cigarettes Smoking Status: Former Smoker Use of E-Cig and/or Vaping dev: No Substance use?: No Alcohol Use?: No Pt feels they are or have been: No Immunizations Up To Date Date of Influenza Vaccine: Jun 17, 2022 First/Initial COVID19 Vaccinat: RECEIVED, UNK WHEN Second COVID19 Vaccination Hemanth: RECEIVED, UNK WHEN Tetanus Booster (TDap): Unknown Hepatitis A: No Hepatitis B: No PED Vaccines UTD: No Seasonal Allergies Seasonal Allergies: Yes (hayfever) Current Status Advance Directives: No Communicates: Verbally Primary Language: Georgian Preferred Spoken Language: Georgian Is interpretation needed?: No Sensory deficits: Hearing impairment Past Medical History Surgeries: Abdominal, Orthopedic Pneumonia, COPD Currently Using CPAP: No Currently Using BIPAP: No Atrial Fibrillation, Deep Vein Thrombosis, Hypertension Neuropathy Sexually Transmitted Disease: No HIV/AIDS: No Renal Failure Abdominal Hernia, Gastrointestinal Bleed Chronic Back Pain Tinnitis Loss of Vision: Denies Hearing Impairment: Deaf Recent Skin Changes Blood Disorders: No Adverse Reaction/Blood Tranf: No Family Medical History Alcoholism 19 FATHER 19 MOTHER Arthritis 19 FATHER 19 MOTHER No Pertinent Family Hx, Other Conditions/Hx CARDIAC CATH 11/09/[address] BELLAMY: CONCLUSION: 1. Mild coronary artery disease nonobstructive disease 2. Normal left ventricular size and systolic function estimate ejection fraction 60% 3. Normal abdominal aorta and bifurcation with runoff down to the trifurcation with slow flow in the SFA bilaterally, probably small vessel disease distally DISCUSSION AND RECOMMENDATION: Maximizing medical therapy, no intervention is recommended Review of Systems Constitutional: malaise Respiratory: cough, short of breath Cardiovascular: chest pain Gastrointestinal: abdominal pain, constipation, nausea Physical Exam Physical Exam Vital Signs Vital Signs - First Documented 11/29/22 11/29/22 11/29/22 13:00 13:15 18:58 Temp 36.6 Pulse 107 Resp 18 B/P (MAP) 101/72 (82) Pulse Ox 99 O2 Delivery Nasal Cannula O2 Flow Rate 4.00 FiO2 99 Capillary Refill : Height, Weight, BMI Height: '" Weight: lbs. oz. kg; 16.42 BMI Method: General Appearance: Anxious, Chronically ill, Moderate Distress (u ncomfortable), Thin HEENT: PERRL/EOMI, Pharynx Normal Neck: Normal Inspection, Supple Respiratory: No Accessory Muscle Use, No Respiratory Distress, Decreased Breath Sounds Cardiovascular: Regular Rate, Rhythm, No Edema, No Murmur, Normal Peripheral Pulses Gastrointestinal: Normal Bowel Sounds; No Distended; Guarding, Tenderness (diffusely) Extremity: Non Tender, No Pedal Edema Neurologic/Psychiatric: Alert, No Motor/Sensory Deficits Skin: Normal Color, Warm/Dry Results Results/Procedures Labs Laboratory Tests 11/29/22 13:07 11/30/22 05:01 Patient resulted labs reviewed. Imaging: Reviewed Imaging Report Assessment/Plan Admission Diagnosis Severe sepsis due to pneumonia Admission Status: Inpatient Order (span 2 midnights) Reason for Inpatient Admission: IV antibiotics Assessment and Plan Severe sepsis Pneumonia Chronic respiratory failure with hypoxia Rocephin and Azithromycin IV fluids Supplemental oxygen as needed MAT protocol Iron deficiency anemia Hgb 7.3 this morning, decreased from prior Iron studies consistent with iron deficiency Occult blood pending Hold Xarelto B12/folate low normal Continue folic acid Venofer ordered Surgery consulted Obstipation CT with significant rectal distension and stool in rectal vault Surgery consulted HTN Hold home meds, BP low HLD AFib PAD CAD COPD Continue home meds as able DVT prophylaxis: held due to anemia/presumed GI bleed Diagnosis/Problems Diagnosis/Problems (1) Severe sepsis Status: Acute (2) Sepsis due to pneumonia Status: Acute (3) HTN (hypertension) Status: Chronic (4) COPD (chronic obstructive pulmonary disease) Status: Chronic (5) PVD (peripheral vascular disease) Status: Chronic (6) CAD (coronary artery disease) Status: Chronic (7) Paroxysmal atrial fibrillation Status: Chronic (8) Iron deficiency anemia Status: Acute (9) Chronic respiratory failure with hypoxia Status: Chronic (10) Constipation Status: Acute (11) Fecal impaction in rectum Status: Acute CLAU DUONG MD Nov 30, 2022 14:35
--- NOTE | 2022-11-30 15:25 | Consultation - Surgery ---
LISA VANG 11/30/22 1524: History of Present Illness History of Present Illness Patient Consulted On(elvis/time) 11/30/22 15:17 Date Seen by Provider: Nov 30, 2022 Time Seen by Provider: 15:18 Reason for Visit: abdominal pain History of Present Illness 62 M with PMH of COPD, A Fibb, HTN, CAD, PAD, HLD presents with complaints to Lt sided abdominal pain and SOB for the past two days. Pt states that pain is rated 10/10 localized to left upper and lower quadrants and diffusely across the chest. Pain worsens with movement and breathing/coughing. Laying still makes the pain better. Denies ever feeling this before. Has taken 4 Tylenol over the past two days with minimal to no relief. Last BM was yesterday and described as brown formed and normal. Abd relief was felt for a a few hours after BM. Pt is able to void w/o issues. Last meal was lunch today around 12:30 consisting of brisket and potatoes that was tolerated w/o complaints. Denies any fever, chills, vomiting, lightheadedness, diarrhea, or bloody or black stools. Claims he has some SOB and mild nausea. Allergies and Home Medications Allergies Coded Allergies: No Known Drug Allergies (Verified , 07/11/09) Patient Home Medication List Albuterol Sulfate (Ventolin Hfa) 18 Gm Hfa.aer.ad, 2 PUFF INH Q6H PRN for SHORTNESS OF BREATH, (Reported) Entered as Reported by: PRISCILLA DELGADO on 11/04/21 1557 Last Action: Held Alprazolam (Alprazolam) 0.5 Mg Tablet, 0.5 MG PO TID PRN for ANXIETY, (Reported) Entered as Reported by: PRISCILLA DELGADO on 11/30/22 1151 Last Action: Held Atorvastatin Calcium (Atorvastatin Calcium) 40 Mg Tablet, 40 MG PO DAILY, (Reported) Entered as Reported by: PRISCILLA DELGADO on 03/06/22 1145 Last Action: Continued Baclofen (Baclofen) 10 Mg Tablet, 10 MG PO BID PRN for MUSCLE SPASMS, (Reported) Entered as Reported by: PRISCILLA DELGADO on 11/04/21 1557 Last Action: Reviewed Digoxin (Digoxin) 125 Mcg (0.125 Mg) Tablet, 250 MCG PO DAILY, (Reported) Entered as Reported by: PRISCILLA DELGADO on 04/20/22 1146 Last Action: Continued Diltiazem HCl (Diltiazem 24Hr ER) 120 Mg Cap.er.24h, 120 MG PO DAILY, (Reported) Entered as Reported by: PRISCILLA DELGADO on 11/30/22 114 Last Action: Held Docusate Sodium (Docusate Sodium) 100 Mg Capsule, 100 MG PO BID PRN for CONST IPATION-1ST LINE, (Reported) Entered as Reported by: PRISCILLA DELGADO on 11/30/22 114 Last Action: Held Furosemide (Furosemide) 40 Mg Tablet, 40 MG PO DAILY, (Reported) Entered as Reported by: PRISCILLA DELGADO on 03/06/22 114 Last Action: Held Ipratropium/Albuterol Sulfate (Iprat-Albut 0.5-3(2.5) mg/3 ml) 0.5 Mg-3 Mg (2.5 Mg Base)/3 Ml Ampul.neb, 3 ML IH BID PRN for SHORTNESS OF BREATH, (Reported) Entered as Reported by: PRISCILLA DELGADO on 03/06/22 114 Last Action: Held Polyethylene Glycol 3350 (Miralax) 17 Gram Powd.pack, 17 GM PO DAILY PRN for CONSTIPATION-2ND LINE, (Reported) Entered as Reported by: PRISCILLA DELGADO on 11/30/22 114 Last Action: Held Rivaroxaban (Xarelto) 20 Mg Tablet, 20 MG PO DAILY, (Reported) Entered as Reported by: PRISCILLA DELGADO on 12/22/20 1254 Last Action: Held Discontinued Medications Acetaminophen with Codeine (Acetaminop-Codeine 120-12 mg/5) 120 Mg-12 Mg/5 Ml (5 Ml) Solution, 5 ML PO Q4H PRN for cough/pain Discontinued Reason: No Longer Taking Prescribed by: MYA MORSE on 07/13/22 1103 Last Action: Discontinued Albuterol Sulfate (Ventolin Hfa) 1 Puff Puff, 2 PUFF IH Q4H PRN for shortness of breath Discontinued Reason: No Longer Taking Prescribed by: MYA MORSE on 07/13/22 1102 Last Action: Discontinued Alprazolam (Alprazolam) 0.5 Mg Tablet, 0.5 MG PO Q8H PRN for ANXIETY, (Reported) Discontinued Reason: No Longer Taking Entered as Reported by: PRISCILLA DELGADO on 11/04/21 1557 Last Action: Discontinued Azithromycin (Zithromax) 500 Mg Tablet, 500 MG PO DAILY Discontinued Reason: No Longer Taking Prescribed by: CAPRICE MCGHEE on 11/02/22 1244 Last Action: Discontinued Bisacodyl (Dulcolax) 10 Mg Supp.rect, 10 MG RC DAILY Discontinued Reason: No Longer Taking Prescribed by: MIRYAM ROMAN on 10/31/22 0643 Last Action: Discontinued Cefdinir (Cefdinir) 300 Mg Capsule, 300 MG PO BID Discontinued Reason: No Longer Taking Prescribed by: DOREEN CARRILLO on 10/24/2245 Last Action: Discontinued Cefdinir (Cefdinir) 300 Mg Capsule, 300 MG PO BID Discontinued Reason: No Longer Taking Prescribed by: CAPRICE MCGHEE on 11/02/221243 Last Action: Discontinued Doxycycline Hyclate (Doxycycline Hyclate) 100 Mg Tablet, 100 MG PO BID Discontinued Reason: No Longer Taking Prescribed by: MYA MORSE on 07/13/22 1102 Last Action: Discontinued Duloxetine HCl (Duloxetine HCl) 60 Mg Capsule.dr, 60 MG PO DAILY, (Reported) Discontinued Reason: No Longer Taking Entered as Reported by: PRISCILLA DELGADO on 12/22/20 1254 Last Action: Discontinued Ferrous Sulfate (Iron) 325 Mg (65 Mg Iron) Tablet, 325 MG PO DAILY, (Reported) Discontinued Reason: No Longer Taking Entered as Reported by: PRISCILLA DELGADO on 04/20/22 1146 Last Action: Discontinued Gabapentin (Gabapentin) 400 Mg Capsule, 400 MG PO TID, (Reported) Discontinued Reason: No Longer Taking Entered as Reported by: PRISCILLA DELGADO on 11/04/21 1557 Last Action: Discontinued Methylprednisolone (Methylprednisolone Dose Pack) 4 Mg Tab.ds.pk, 4 MG PO UD Discontinued Reason: No Longer Taking Prescribed by: DOREEN CARRILLO on 10/24/2245 Last Action: Discontinued Methylprednisolone (Medrol) 4 Mg Tab.ds.pk, 4 MG PO UD Discontinued Reason: No Longer Taking Prescribed by: CAPRICE MCGHEE on 11/02/22 1244 Last Action: Discontinued Oxycodone HCl (Oxycodone HCl) 5 Mg Tablet, 5 MG PO Q6H PRN for PAIN-SEVERE (8- 10), (Reported) Discontinued Reason: No Longer Taking Entered as Reported by: PRISCILLA DELGADO on 11/04/21 1557 Last Action: Discontinued Oxycodone HCl/Acetaminophen (Percocet 5-325 mg Tablet) 5 Mg-325 Mg Tablet, 1 TAB PO Q6H PRN for PAIN-MODERATE Discontinued Reason: No Longer Taking Prescribed by: MIRYAM ROMAN on 10/31/22 0824 Last Action: Discontinued Polyethylene Glycol 3350 (Miralax) 17 Gram/Dose Powder, 17 GM PO Q4H PRN for CONSTIPATION Discontinued Reason: No Longer Taking Prescribed by: MIRYAM ROMAN on 10/31/22 0643 Last Action: Discontinued Potassium Chloride (Potassium Chloride) 20 Meq Tab.er.prt, 20 MEQ PO DAILY, (Reported) Discontinued Reason: No Longer Taking Entered as Reported by: PRISCILLA DELGADO on 03/06/22 1145 Last Action: Discontinued Prednisone (Prednisone) 50 Mg Tab, 50 MG PO DAILY Discontinued Reason: No Longer Taking Prescribed by: MYA MORSE on 07/13/22 1102 Last Action: Discontinued Tramadol HCl (Tramadol HCl) 50 Mg Tablet, 50 MG PO Q6H PRN for PAIN Discontinued Reason: No Longer Taking Prescribed by: DOREEN CARRILLO on 10/24/22 0827 Last Action: Discontinued Past Zujjuio-Ddjyvd-Ofqdir Hx Patient Social History Drug of Choice: "marijuana in the 80's and 90's" Smoking Status: Former Smoker Former Smoker, Quit: Dec 06, 2019 Type Used: Cigarettes Recent Hopitalizations: Yes Alcohol Use?: No Have you traveled recently?: No Immunizations Up To Date Tetanus Booster (TDap): Less than 5yrs PED Vaccines UTD: No Date of Influenza Vaccine: Jun 17, 2022 Seasonal Allergies Seasonal Allergies: Yes (hayfever) Surgeries History of Surgeries: Yes (hernia repair, l ankle, l wrist, ) Surgeries: Abdominal (hernia repair ), Orthopedic Respiratory History of Respiratory Disorde: Yes Respiratory Disorders: Pneumonia, COPD Cardiovascular History of Cardiac Disorders: Yes Cardiac Disorders: Atrial Fibrillation, Deep Vein Thrombosis, Hypertension Neurological History of Neurological Disord: Yes (neuralgia) Neurological Disorders: Neuropathy Reproductive System Sexually Transmitted Disease: No HIV/AIDS: No Genitourinary History of Genitourinary Disor: Yes Genitourinary Disorders: Renal Failure Gastrointestinal History of Gastrointestinal Di: Yes Gastrointestinal Disorders: Abdominal Hernia, Gastrointestinal Bleed Musculoskeletal History of Musculoskeletal Dis: Yes Musculoskeletal Disorders: Chronic Back Pain Endocrine History of Endocrine Disorders: No HEENT History of HEENT Disorders: No (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) HEENT Disorders: Tinnitis Loss of Vision: Denies Hearing Impairment: Deaf Cancer History of Cancer: No Psychosocial History of Psychiatric Problem: No Integumentary History of Skin or Integumenta: No Blood Transfusions History of Blood Disorders: No Adverse Reaction to a Blood Tr: No Family Medical History Significant Family History: Heart Disease (F of [place] in 50s ) Family Medial History: Alcoholism 19 FATHER 19 MOTHER Arthritis 19 FATHER 19 MOTHER Review of Systems-General Constitutional: chills; No diaphoresis EENTM: No blurred vision, No nose congestion Respiratory: cough, dyspnea on exertion; No hemoptysis; short of breath Cardiovascular: chest pain (diffuse ); No palpitations Gastrointestinal: abdominal pain (LUQ LLQ ); No diarrhea, No hematemesis, No loss of appetite, No melena; nausea; No vomiting Genitourinary: No dysuria, No frequency, No hematuria Musculoskeletal: No joint swelling, No muscle pain Skin: No change in color, No lesions Psychiatric/Neurological: Anxiety; Denies Headache Physical Exam-General Problems Physical Exam Vital Signs Vital Signs - First Documented 11/29/22 11/29/22 11/29/22 13:00 13:15 18:58 Temp 36.6 Pulse 107 Resp 18 B/P (MAP) 101/72 (82) Pulse Ox 99 O2 Delivery Nasal Cannula O2 Flow Rate 4.00 FiO2 99 Capillary Refill : General Appearance: mild distress Eyes: Bilateral Eye PERRL, Bilateral Eye EOMI HEENT: PERRL/EOMI, other (cachectic ) Neck: full range of motion; No lymphadenopathy (R), No lymphadenopathy (L) Respiratory: no accessory muscle use, crackles, wheezing (on expiration ) Cardiovascular: no gallop, no murmur Peripheral Pulses: 1+ Dorsalis Pedis (R), 1+ Left Dors-Pedis (L); 2+ Radial Pul ses (R), 2+ Radial Pulses (L) Gastrointestinal: abnormal bowel sounds (hypoactive BS x 4 ), guarding, rebo und, tenderness (to light palpation ) Back: no vertebral tenderness; No muscle spasm Extremities: no calf tenderness, other (Rt great and 2nd toe amputation ) Neurologic/Psychiatric: alert, oriented x 3 Skin: normal color, warm/dry Lymphatic: other (no cervical or axillary LAD ) Data Review Labs Laboratory Tests 11/29/22 17:50: Lactic Acid Level 1.76 11/30/22 05:01: White Blood Count 15.7H, Red Blood Count 2.91L, Hemoglobin 7.3#L, Hematocrit 24L , Mean Corpuscular Volume 81, Mean Corpuscular Hemoglobin 25, Mean Corpuscular Hemoglobin Concent 31L, Red Cell Distribution Width 16.3H, Platelet Count 372, Mean Platelet Volume 9.9, Immature Granulocyte % (Auto) 1, Neutrophils (%) (Auto) 90H, Lymphocytes (%) (Auto) 3L, Monocytes (%) (Auto) 7, Eosinophils (%) (Auto) 0, Basophils (%) (Auto) 0, Neutrophils # (Auto) 14.2H, Lymphocytes # (Auto) 0.4L, Monocytes # (Auto) 1.0, Eosinophils # (Auto) 0.0, Basophils # (Aut o) 0.0, Immature Granulocyte # (Auto) 0.1, Sodium Level 140, Potassium Level 3.7, Chloride Level 106, Carbon Dioxide Level 26, Anion Gap 8, Blood Urea Nitrogen 12, Creatinine 0.60, Estimat Glomerular Filtration Rate 111, BUN/Creatinine Ratio 20, Glucose Level 156H, Calcium Level 8.9, Magnesium Level 2.0, Iron Level 16L, Total Iron Binding Capacity 220L, Unsaturated Iron Binding Capacity 204, Transferrin % Saturation 7L, Ferritin 41.1, Vitamin B12 Level 340, Folate 4.6 Microbiology 11/29/22 Blood Culture - Preliminary, Resulted No growth Assessment/Plan Assessment/Plan Assessment/Plan Assesment: Iron Def. anemia- potentially GI bleed COPD Leukocytosis Fecal compaction of rectal vault abdominal pain hypotension Plan: start stool softener PRN ICS continue IV abx therapy and IVF monitor Hgb with serial CBC, transfuse with RBCs is Hgb falls below 7.5 Continue MAT protocol and supplemental O2 Hold anti-coag medications Possible fecal disimpaction if stool fails to pass or symptoms continue to worsen continue pain control CANDI MIJARES DO 11/30/228: History of Present Illness History of Present Illness Time Seen by Provider: 16:41 History of Present Illness HPI per ED: 62-year-old male presents to the ED with reports of shortness of breath and left-sided chest pain for the last 2 days. Also reports left-sided abdominal pain. Reports mild cough. He has a history of COPD, wears 4.5 L of oxygen all the time. States he last used his nebulizer yesterday, states it did not help. Denies fevers, nausea, vomiting. Last bowel movement was yesterday and was normal. Patient is a poor historian, he is unsure why he takes several of his medications. Medications he brought with him include Lasix, Xarelto, Percocet, diltiazem, baclofen, digoxin, atorvastatin, colace. Reports he also has an inhaler and nebulizer. When I saw pt he was doing ok, but complaining of abdominal pain and constipation. He had not seen and bloody BMs. Allergies and Home Medications Allergies Coded Allergies: No Known Drug Allergies (Verified , 07/11/09) Patient Home Medication List Home Medication List Reviewed: Yes Albuterol Sulfate (Ventolin Hfa) 18 Gm Hfa.aer.ad, 2 PUFF INH Q6H PRN for SHORTNESS OF BREATH, (Reported) Entered as Reported by: PRISCILLA DELGADO on 11/04/21 1557 Last Action: Held Alprazolam (Alprazolam) 0.5 Mg Tablet, 0.5 MG PO TID PRN for ANXIETY, (Reported) Entered as Reported by: PRISCILLA DELGADO on 11/30/22 1151 Last Action: Held Atorvastatin Calcium (Atorvastatin Calcium) 40 Mg Tablet, 40 MG PO DAILY, (Reported) Entered as Reported by: PRISCILLA DELGADO on 03/06/22 1145 Last Action: Continued Baclofen (Baclofen) 10 Mg Tablet, 10 MG PO BID PRN for MUSCLE SPASMS, (Reported) Entered as Reported by: PRISCILLA DELGADO on 11/04/21 1557 Last Action: Reviewed Digoxin (Digoxin) 125 Mcg (0.125 Mg) Tablet, 250 MCG PO DAILY, (Reported) Entered as Reported by: PRISCILLA DELGADO on 04/20/22 1146 Last Action: Continued Diltiazem HCl (Diltiazem 24Hr ER) 120 Mg Cap.er.24h, 120 MG PO DAILY, (Reported) Entered as Reported by: PRISCILLA DELGADO on 11/30/22 114 Last Action: Held Docusate Sodium (Docusate Sodium) 100 Mg Capsule, 100 MG PO BID PRN for CONSTIPATION-1ST LINE, (Reported) Entered as Reported by: PRISCILLA DELGADO on 11/30/22 114 Last Action: Held Furosemide (Furosemide) 40 Mg Tablet, 40 MG PO DAILY, (Reported) Entered as Reported by: PRISCILLA DELGADO on 03/06/22 114 Last Action: Held Ipratropium/Albuterol Sulfate (Iprat-Albut 0.5-3(2.5) mg/3 ml) 0.5 Mg-3 Mg (2.5 Mg Base)/3 Ml Ampul.neb, 3 ML IH BID PRN for SHORTNESS OF BREATH, (Reported) Entered as Reported by: PRISCILLA DELGADO on 03/06/22 114 Last Action: Held Polyethylene Glycol 3350 (Miralax) 17 Gram Powd.pack, 17 GM PO DAILY PRN for CONSTIPATION-2ND LINE, (Reported) Entered as Reported by: PRISCILLA DELGADO on 11/30/22 114 Last Action: Held Rivaroxaban (Xarelto) 20 Mg Tablet, 20 MG PO DAILY, (Reported) Entered as Reported by: PRISCILLA DELGADO on 12/22/20 1254 Last Action: Held Discontinued Medications Acetaminophen with Codeine (Acetaminop-Codeine 120-12 mg/5) 120 Mg-12 Mg/5 Ml (5 Ml) Solution, 5 ML PO Q4H PRN for cough/pain Discontinued Reason: No Longer Taking Prescribed by: MYA MORSE on 07/13/22 1103 Last Action: Discontinued Albuterol Sulfate (Ventolin Hfa) 1 Puff Puff, 2 PUFF IH Q4H PRN for shortness of breath Discontinued Reason: No Longer Taking Prescribed by: MYA MORSE on 07/13/22 1102 Last Action: Discontinued Alprazolam (Alprazolam) 0.5 Mg Tablet, 0.5 MG PO Q8H PRN for ANXIETY, (Reported) Discontinued Reason: No Longer Taking Entered as Reported by: PRISCILLA DELGADO on 11/04/21 1557 Last Action: Discontinued Azithromycin (Zithromax) 500 Mg Tablet, 500 MG PO DAILY Discontinued Reason: No Longer Taking Prescribed by: CAPRICE MCGHEE on 11/02/221243 Last Action: Discontinued Bisacodyl (Dulcolax) 10 Mg Supp.rect, 10 MG RC DAILY Discontinued Reason: No Longer Taking Prescribed by: MIRYAM ROMAN on 10/31/22 0643 Last Action: Discontinued Cefdinir (Cefdinir) 300 Mg Capsule, 300 MG PO BID Discontinued Reason: No Longer Taking Prescribed by: DOREEN CARRILLO on 10/24/2245 Last Action: Discontinued Cefdinir (Cefdinir) 300 Mg Capsule, 300 MG PO BID Discontinued Reason: No Longer Taking Prescribed by: CAPRICE MCGHEE on 11/02/221243 Last Action: Discontinued Doxycycline Hyclate (Doxycycline Hyclate) 100 Mg Tablet, 100 MG PO BID Discontinued Reason: No Longer Taking Prescribed by: MYA MORSE on 07/13/22 1102 Last Action: Discontinued Duloxetine HCl (Duloxetine HCl) 60 Mg Capsule.dr, 60 MG PO DAILY, (Reported) Discontinued Reason: No Longer Taking Entered as Reported by: PRISCILLA DELGADO on 12/22/20 1254 Last Action: Discontinued Ferrous Sulfate (Iron) 325 Mg (65 Mg Iron) Tablet, 325 MG PO DAILY, (Reported) Discontinued Reason: No Longer Taking Entered as Reported by: PRISCILLA DELGADO on 04/20/22 1146 Last Action: Discontinued Gabapentin (Gabapentin) 400 Mg Capsule, 400 MG PO TID, (Reported) Discontinued Reason: No Longer Taking Entered as Reported by: PRISCILLA DELGADO on 11/04/21 1557 Last Action: Discontinued Methylprednisolone (Methylprednisolone Dose Pack) 4 Mg Tab.ds.pk, 4 MG PO UD Discontinued Reason: No Longer Taking Prescribed by: DOREEN CARRILLO on 10/24/2245 Last Action: Discontinued Methylprednisolone (Medrol) 4 Mg Tab.ds.pk, 4 MG PO UD Discontinued Reason: No Longer Taking Prescribed by: CAPRICE MCGHEE on 11/02/221243 Last Action: Discontinued Oxycodone HCl (Oxycodone HCl) 5 Mg Tablet, 5 MG PO Q6H PRN for PAIN-SEVERE (8- 10), (Reported) Discontinued Reason: No Longer Taking Entered as Reported by: PRISCILLA DELGADO on 11/04/21 1557 Last Action: Discontinued Oxycodone HCl/Acetaminophen (Percocet 5-325 mg Tablet) 5 Mg-325 Mg Tablet, 1 TAB PO Q6H PRN for PAIN-MODERATE Discontinued Reason: No Longer Taking Prescribed by: MIRYAM ROMAN on 10/31/22 0824 Last Action: Discontinued Polyethylene Glycol 3350 (Miralax) 17 Gram/Dose Powder, 17 GM PO Q4H PRN for CONSTIPATION Discontinued Reason: No Longer Taking Prescribed by: MIRYAM ROMAN on 10/31/22 0643 Last Action: Discontinued Potassium Chloride (Potassium Chloride) 20 Meq Tab.er.prt, 20 MEQ PO DAILY, (Reported) Discontinued Reason: No Longer Taking Entered as Reported by: PRISCILLA DELGADO on 03/06/22 1145 Last Action: Discontinued Prednisone (Prednisone) 50 Mg Tab, 50 MG PO DAILY Discontinued Reason: No Longer Taking Prescribed by: MYA MORSE on 07/13/22 1102 Last Action: Discontinued Tramadol HCl (Tramadol HCl) 50 Mg Tablet, 50 MG PO Q6H PRN for PAIN Discontinued Reason: No Longer Taking Prescribed by: DOREEN CARRILLO on 10/24/22826 Last Action: Discontinued Past Yzuzlxu-Lpqybl-Gblynw Hx Patient Social History Smoking Status: Former Smoker Surgeries History of Surgeries: Yes Surgeries: Abdominal (hernia repair ), Orthopedic Respiratory History of Respiratory Disorde: Yes Respiratory Disorders: COPD Cardiovascular History of Cardiac Disorders: Yes Cardiac Disorders: Atrial Fibrillation, Hypertension Neurological History of Neurological Disord: Yes Neurological Disorders: Neuropathy Genitourinary History of Genitourinary Disor: Yes Genitourinary Disorders: Renal Failure Gastrointestinal History of Gastrointestinal Di: Yes Gastrointestinal Disorders: Gastroesophageal Reflux, Chronic Constipation Musculoskeletal History of Musculoskeletal Dis: Yes Musculoskeletal Disorders: Chronic Back Pain Endocrine History of Endocrine Disorders: No HEENT History of HEENT Disorders: No Loss of Vision: Denies Hearing Impairment: Hard of Hearing Cancer History of Cancer: No Family Medical History Significant Family History: Heart Disease (F of [place] in 50s ) Family Medial History: Alcoholism 19 FATHER 19 MOTHER Arthritis 19 FATHER 19 MOTHER Review of Systems-General Constitutional: chills; No diaphoresis EENTM: No blurred vision, No nose congestion Respiratory: cough, dyspnea on exertion; No hemoptysis; short of breath Cardiovascular: chest pain (diffuse ); No palpitations Gastrointestinal: abdominal pain (LUQ LLQ ); No diarrhea, No hematemesis, No loss of appetite, No melena, No nausea, No vomiting Genitourinary: No dysuria, No frequency, No hematuria Musculoskeletal: No joint swelling, No muscle pain Skin: No change in color, No lesions Psychiatric/Neurological: Anxiety; Denies Headache Physical Exam-General Problems Physical Exam General Appearance: mild distress, cachetic, thin Eyes: Bilateral Eye PERRL, Bilateral Eye EOMI HEENT: pharynx normal; No scleral icterus (R), No scleral icterus (L); other (poor dentition) Neck: non-tender, supple Respiratory: no accessory muscle use, crackles, wheezing (on expiration ) Cardiovascular: no murmur, irregularly irregular Gastrointestinal: soft, abnormal bowel sounds (hypoactive BS x 4 ), guarding, rebound, tenderness (to light palpation ) Rectal: deferred Back: no vertebral tenderness; No muscle spasm Extremities: no calf tenderness, other (Rt great and 2nd toe amputation ) Neurologic/Psychiatric: alert, oriented x 3 Skin: warm/dry, pallor Lymphatic: no adenopathy (neck, axilla or groin) Data Review Radiology Date of Exam:11/29/22 CT CHEST/ABDOMEN/PELVIS W PROCEDURE: CT chest, abdomen, and pelvis with contrast. TECHNIQUE: Multiple contiguous axial images were obtained through the chest, abdomen, and pelvis after the administration of intravenous contrast. Auto Exposure Controls were utilized during the CT exam to meet ALARA standards for radiation dose reduction. INDICATION: Shortness of breath, chest pain and hypoxia. Compared with CT chest, abdomen and pelvis done most recently 10/24/2022. Chest: There is severe emphysema and bullous disease in the lungs. There is a chronic finding noted. There is hyperexpansion of the right greater than left lung. While there is some chronic apical pleural-parenchymal scarring, there is progressive density in the right upper lobe where superimposition of pneumonia is suspected. No findings of pulmonary edema. No abscess, effusion or empyema. There is no pneumothorax or pneumomediastinum. The thoracic aorta is nonaneurysmal. There is coronary artery atherosclerotic vascular calcifications. No thoracic adenopathy. Abdomen and pelvis: Colonic constipation with air and stool distending the non-thickened rectal vault. No perirectal edema. Rectum distended 9.5 cm transverse. No segmental small or large bowel wall thickening no pneumatosis. The kidneys unobstructed. Liver, gallbladder, bile ducts, spleen, adrenals and pancreas nonacute. No pneumatosis. No free air. No air-fluid levels. Urinary bladder unremarkable. The bony structures appeared nonacute. IMPRESSION: CHEST: Severe COPD redemonstrated with likely new pneumonia in the right upper lobe. No thoracic effusion or abscess. ABDOMEN AND PELVIS: Colonic constipation with distention of the rectal vault to 9.5 cm with rectal stool and air. No rectal wall thickening and no perirectal stranding or edema. No other significant finding. Dictated by: Dictated on workstation # [id number] Dict: 11/29/22 1511 Trans: 11/29/22 1650 CVB [id number] Interpreted by: AGUUSTO FOSTER Electronically signed by: AUGUSTO FOSTER 11/29/22 1650 Assessment/Plan Assessment/Plan Assessment/Plan Iron Def. anemia- potentially GI bleed COPD Leukocytosis Fecal compaction of rectal vault abdominal pain hypotension Plan: start stool softener PRN ICS continue IV abx therapy and IVF monitor Hgb with serial CBC, transfuse with RBCs is Hgb falls below 7.5 Continue MAT protocol and supplemental O2 Hold anti-coag medications Possible fecal disimpaction if stool fails to pass or symptoms continue to worsen continue pain control Supervisory-Addendum Brief Verification & Attestation Participated in pt care: history, MDM, physical Personally performed: exam, history, MDM, supervision of care Care discussed with: Medical Student Procedures: n/a Verification and Attestation of Medical Student E/M Service A medical student performed and documented this service. I then reviewed and verified all information documented by the medical student and made modifications to such information, when appropriate. I personally performed a physical exam, medical decision making and then discussed any differences between the notes and made revisions as necessary to create one note. Candi Mijares , 12/01/22 , 12:55 LISA VANG Nov 30, 2022 15:24 CANDI MIJARES DO Nov 30, 2022 22:35
[2022-11-30] MEDS: cefTRIAXone 1 GM PRE-MIX 50 ML IV SCH (15:48)
[2022-11-30] MEDS ORDERED: RIVAROXABAN 20 MG TABLET (XARELTO) PO SCH (17:00)
[2022-11-30] MEDS ORDERED: IRON SUCROSE 200 MG/10 ML (VENOFER) VIAL IV NR (17:15)
[2022-11-30] MEDS: MELATONIN 3 MG TABLET PO PRN (20:13)
[2022-11-30] MEDS: LACTULOSE SYRUP 10GM/15ML (ENULOSE) 30ML UDC PO PRN (20:13)
[2022-12-01] VITALS (7 sets, daily range): BP systolic 96–137; BP diastolic 61–74
[2022-12-01] MEDS: RT-ALBUTEROL/IPRATROPIUM 3 ML (DUONEB) VIAL INH SCH ×6 (02:05→22:32)
[2022-12-01] MEDS: ALPRAZolam 0.5 MG (XANAX) TAB PO PRN ×2 (03:12→18:29)
[2022-12-01] MEDS: LACTATED RINGERS 1,000 ML IV SCH ×3 (03:15→18:29)
[2022-12-01 05:59] LABS: BASOPHILS % (AUTO) 0 % (0-10); EOSINOPHILS # (AUTO) 0.1 10^3/uL (0.0-0.3); EOSINOPHILS % (AUTO) 1 % (0-10); HEMATOCRIT 24 % (40-54); HEMOGLOBIN 7.1 g/dL (13.3-17.7); LYMPHOCYTES # (AUTO) 0.8 10^3/uL (1.0-4.0); LYMPHOCYTES % (AUTO) 6 % (12-44); MEAN CORPUSCULAR HEMOGLOBIN 25 pg (25-34); MEAN CORPUSCULAR HGB CONC 30 g/dL (32-36); MEAN CORPUSCULAR VOLUME 82 fL (80-99); MEAN PLATELET VOLUME 9.9 fL (9.0-12.2); MONOCYTES # (AUTO) 1.1 10^3/uL (0.0-1.0); MONOCYTES % (AUTO) 8 % (0-12); NEUTROPHILS # (AUTO) 11.7 10^3/uL (1.8-7.8); NEUTROPHILS % (AUTO) 85 % (42-75); PLATELET COUNT 398 10^3/uL (130-400); WHITE BLOOD COUNT 13.8 10^3/uL (4.3-11.0)
[2022-12-01 06:19] LABS: CALCIUM 8.4 MG/DL (8.5-10.1); CREATININE SERUM 0.6 MG/DL (0.60-1.30); MAGNESIUM 1.5 MG/DL (1.6-2.4)
[2022-12-01] MEDS: KCL 20 MEQ TAB (K-DUR) PO SCH (06:41)
[2022-12-01] MEDS: POTASSIUM CL 10MEQ/50ML IVPB 50 ML IV SCH (06:41)
[2022-12-01] MEDS: POTASSIUM BICARB 20 MEQ (EFFER-K) TABLET PO SCH (06:41)
[2022-12-01] MEDS: MAGNESIUM 1 GM/100 ML IVPB 100 ML IV SCH ×5 (06:42→10:24)
[2022-12-01] MEDS: HYDROmorphone 2 MG/ML VIAL (DILAUDID) IV PRN ×5 (07:54→23:27)
[2022-12-01] MEDS: ACETAMINOPHEN 325 MG TABLET PO PRN (07:55)
[2022-12-01] MEDS: SENNOSIDES 8.6 MG (SENOKOT) TAB PO SCH ×2 (07:55→20:38)
[2022-12-01] MEDS: DULoxetine 30 MG (CYMBALTA) CAP PO SCH (07:55)
[2022-12-01] MEDS: DOCUSATE SODIUM 100 MG (COLACE) CAP PO SCH ×2 (07:56→20:38)
[2022-12-01] MEDS: GABAPENTIN 400 MG (NEURONTIN) CAP PO SCH ×2 (07:56→20:38)
[2022-12-01] MEDS: DIGOXIN 0.25 MG (LANOXIN) TAB PO SCH (08:05)
[2022-12-01] MEDS: FOLIC ACID 1 MG TAB PO SCH (08:05)
[2022-12-01] MEDS: dilTIAZem120 MG (CARDIZEM CD) CAP PO SCH (08:06)
--- NOTE | 2022-12-01 08:42 | Progress Note - Surgery ---
LISA VANG 12/01/22 0842: Subjective Date Seen by a Provider: Dec 01, 2022 Time Seen by a Provider: 08:36 Subjective/Events-last exam 62M being followed for fecal impaction and anemia secondary to a possible GI bleed was lethargic and tired during examination today. Pt dozed off 3-4 times during encounter. States abdominal pain is still present rated 10/10 over the LUQ and LLQ described as a constant sharp pain that worsens with movement and deep inspiration. Pt does state an improvement in his breathing. Was unable to have a BM last night with lactulose therapy. Still continues to pass flatus. Denies any changes in appetite and was eating pancakes and eggs this morning w/o complaints. Reports feeling feverish w/ chills and mild nausea w/o emesis and some lightheadedness. Denies any CP, numbness, or urinary symptoms. Review of Systems General: Chills, Fatigue, Malaise HEENT: No Head Aches, No Dysphasia Pulmonary: Dyspnea, Cough Cardiovascular: No: Chest Pain, Palpitations Gastrointestinal: Nausea, Abdominal Pain; No: Vomiting Genitourinary: No Dysuria, No Frequency Musculoskeletal: No: neck pain, leg pain Neurological: Weakness; No: Numbness Focused Exam Lactate Level 11/29/22 13:07: Lactic Acid Level 2.54*H 11/29/22 15:16: Lactic Acid Level 2.25*H 11/29/22 17:50: Lactic Acid Level 1.76 Objective Exam Vital Signs Date Time Temp Pulse Resp B/P (MAP) Pulse Ox O2 Delivery O2 Flow Rate FiO2 12/01/22 07:39 38.0 108 18 129/71 (90) 96 70.00 30.00 12/01/22 07:03 96 Vapotherm 30.00 70 12/01/22 07:00 111 12/01/22 03:10 37.5 104 18 137/74 (95) 96 Vapotherm 70.00 30.00 12/01/22 02:24 90 Vapotherm 25.00 70 12/01/22 02:19 109 127/72 (90) 12/01/22 02:06 81 Nasal Cannula 4.50 12/01/22 01:00 101 11/30/22 23:42 36.5 99 18 114/69 (84) 91 Nasal Cannula 5.00 11/30/22 22:32 Nasal Cannula 4.00 11/30/22 20:53 Nasal Cannula 4.00 11/30/22 19:48 37.5 105 20 112/70 (84) 94 Nasal Cannula 4.00 11/30/22 19:00 108 11/30/22 18:55 90 Nasal Cannula 4.00 11/30/22 15:53 37.3 93 18 100/61 (74) 100 Nasal Cannula 4.00 11/30/22 15:15 96 Nasal Cannula 4.00 11/30/22 13:00 85 11/30/22 11:41 37.0 91 18 94/53 (67) 95 Nasal Cannula 4.00 11/30/22 10:36 91 88/53 (65) 96 Nasal Cannula 4.00 11/30/22 10:18 96 Nasal Cannula 4.00 11/30/22 09:10 93/57 (69) I & O 12/01/22 07:00 Intake Total 2560 ml Output Total 2950 ml Balance -390 ml Capillary Refill : General Appearance: Anxious, Chronically ill, Moderate Distress (uncomfortable lethargic and pale ), Thin HEENT: PERRL/EOMI, Pale Conjunctivae (L), Pale Conjunctivae (R) Neck: Supple; No Lymphadenopathy (L), No Lymphadenopathy (R) Respiratory: Decreased Breath Sounds, Wheezing (on inspiration and expiration ), Other (cough) Cardiovascular: Regular Rate, Rhythm, No Edema, No Murmur Peripheral Pulses: 1+ Dorsalis Pedis (R), 1+ Left Dors-Pedis (L); 2+ Radial Pulses (R), 2+ Radial Pulses (L) Gastrointestinal: no organomegaly, no pulsatile mass, abnormal bowel sounds (hypoactive x 4), guarding, tenderness (Left upper and lower quadrants ) Extremity: Non Tender, No Pedal Edema Neurologic/Psychiatric: Alert Skin: Warm/Dry, Pallor Results Lab Laboratory Tests 12/01/22 05:40: White Blood Count 13.8H, Red Blood Count 2.89L, Hemoglobin 7.1L, Hematocrit 24L, Mean Corpuscular Volume 82, Mean Corpuscular Hemoglobin 25, Mean Corpuscular Hemoglobin Concent 30L, Red Cell Distribution Width 16.5H, Platelet Count 398, Mean Platelet Volume 9.9, Immature Granulocyte % (Auto) 1, Neutrophils (%) (Auto) 85H, Lymphocytes (%) (Auto) 6L, Monocytes (%) (Auto) 8, Eosinophils (%) (Auto) 1, Basophils (%) (Auto) 0, Neutrophils # (Auto) 11.7H, Lymphocytes # (Auto) 0.8L, Monocytes # (Auto) 1.1H, Eosinophils # (Auto) 0.1, Basophils # (Auto) 0.0, Immature Granulocyte # (Auto) 0.1, Sodium Level 137, Potassium Level 4.0, Chloride Level 101, Carbon Dioxide Level 28, Anion Gap 8, Blood Urea Nitrogen 9, Creatinine 0.60, Estimat Glomerular Filtration Rate 111, BUN/Creatinine Ratio 15, Glucose Level 120H, Calcium Level 8.4L, Magnesium Level 1.5L Microbiology 11/29/22 Blood Culture - Preliminary, Resulted No growth Assessment/Plan Assessment/Plan Assessment/Plan Iron Def. anemia- potentially GI bleed- Hgb 7.1 today COPD Leukocytosis- improving constipation with Fecal compaction of rectal vault abdominal pain hypotension- resolved bacteremia- preliminary cultures suggest coag neg staph Plan: continue stool softener PRN ICS and breathing treatments continue IV abx therapy and IVF monitor Hgb with serial CBC, transfuse with RBCs today and continue Fe supplementation Continue MAT protocol and supplemental O2 Hold anti-coag medications rectal exam preformed showing soft stool in rectal vault- enemas today to aid in BM continue pain control CANDI WRIGHT DO 12/01/22 1300: Subjective Time Seen by a Provider: 09:42 Subjective/Events-last exam Pt seen and examined, he did not look as bad as described this am. He was eating breakfast without difficulty. Still having abdominal pain and some increasing SOB. Had not had BM, but was passing gas. Review of Systems General: Chills, Fatigue, Malaise Pulmonary: Dyspnea, Cough Cardiovascular: No: Chest Pain, Palpitations Gastrointestinal: Nausea, Abdominal Pain; No: Vomiting Objective Exam General Appearance: Anxious, Chronically ill, Moderate Distress (uncomfortable lethargic and pale ), Thin HEENT: PERRL/EOMI, Pale Conjunctivae (L), Pale Conjunctivae (R) Respiratory: Decreased Breath Sounds, Wheezing (on inspiration and expiration ), Other (cough) Cardiovascular: Regular Rate, Rhythm, No Murmur Gastrointestinal: no organomegaly, no pulsatile mass, abnormal bowel sounds (hypoactive x 4), guarding, tenderness (Left upper and lower quadrants ), other (DANIEL done, stool in rectal vault mostly soft - possibly closer to soft magdalena consistency but definitely not hard) Neurologic/Psychiatric: Alert Skin: Pallor Assessment/Plan Assessment/Plan Assessment/Plan Iron Def. anemia- potentially GI bleed- Hgb 7.1 today COPD Leukocytosis- improving constipation with Fecal compaction of rectal vault abdominal pain hypotension- resolved bacteremia- preliminary cultures suggest coag neg staph Plan: continue stool softener PRN ICS and breathing treatments continue IV abx therapy and IVF monitor Hgb with serial CBC, transfuse with RBCs today and continue Fe supple mentation Continue MAT protocol and supplemental O2 Hold anti-coag medications rectal exam preformed showing soft stool in rectal vault- enemas today to aid in BM continue pain control Supervisory-Addendum Brief Verification & Attestation Participated in pt care: history, MDM, physical Personally performed: exam, history, MDM, supervision of care Care discussed with: Medical Student Procedures: n/a Verification and Attestation of Medical Student E/M Service A medical student performed and documented this service. I then reviewed and verified all information documented by the medical student and made modificati ons to such information, when appropriate. I personally performed a physical exam, medical decision making and then discussed any differences between the notes and made revisions as necessary to create one note. Candi Wright , 12/01/22 , 13:00 LISA VANG Dec 01, 2022 08:42 CANDI WRIGHT DO Dec 01, 2022 13:00
[2022-12-01] MEDS ORDERED: DIGOXIN 0.125 MG (LANOXIN) TAB PO SCH (09:00)
--- NOTE | 2022-12-01 10:15 | Diagnostic Imaging Report ---
INDICATION: Respiratory failure. Frontal chest obtained at 08:43 a.m. compared with 11/29/2022. FINDINGS: Heart is normal in size. There is COPD change with hyperinflation and chronic interstitial disease. There appears to be superimposed alveolar infiltrate in the right midlung compatible with pneumonia. There is no pneumothorax or pleural fluid. IMPRESSION: COPD changes and chronic interstitial disease. New alveolar infiltrate in right midlung compatible with superimposed pneumonia. Dictated by: Dictated on workstation # [id number]
[2022-12-01] MEDS ORDERED: FLEET ENEMA ADULT 1 EA BTL PR ONE ×2 (10:30→16:00)
--- NOTE | 2022-12-01 12:26 | Progress Note - Hospitalist ---
Subjective HPI/CC On Admission Date Seen by Provider: Dec 01, 2022 Time Seen by Provider: 10:10 Moshe Soto (Willy) is a 62 year old male with PMH HTN, HLD, AFib, PAD, CAD, COPD, who presented with shortness of breath. He has had a cough. He has had chest pain. He also reports abdominal pain. He has been nauseous. He denies vomiting. He denies diarrhea. He denies fevers and chills. He is on 4 L continous oxygen at baseline. Subjective/Events-last exam He is still having bad pain. He says it is on the left side of his chest and his abdomen. The pain does not radiate. He had some nausea. He did not vomit. Focused Exam Lactate Level 11/29/22 13:07: Lactic Acid Level 2.54*H 11/29/22 15:16: Lactic Acid Level 2.25*H 11/29/22 17:50: Lactic Acid Level 1.76 Objective Exam Vital Signs Vital Signs Date Time Temp Pulse Resp B/P (MAP) Pulse Ox O2 Delivery O2 Flow Rate FiO2 12/01/22 12:00 98 Vapotherm 30.00 70 12/01/22 12:00 98 22 112/68 (82) 12/01/22 11:20 36.8 Capillary Refill : General Appearance: Anxious, Chronically ill, Mild Distress (uncomfortable) Respiratory: Decreased Breath Sounds, Wheezing Cardiovascular: No Murmur, Tachycardia Gastrointestinal: Soft, Abnormal Bowel Sounds, Guarding, Tenderness (diffusely) Extremity: Normal Inspection, No Pedal Edema Neurologic/Psychiatric: Alert, No Motor/Sensory Deficits Results/Procedures Lab Laboratory Tests 12/01/22 05:40 Patient resulted labs reviewed. Imaging: Reviewed Imaging Report Assessment/Plan Assessment and Plan Assess & Plan/Chief Complaint Severe sepsis Pneumonia Acute on chronic respiratory failure with hypoxia Requiring Vapotherm Transfer to ICU due to worsening hypoxia XR with RML PNA Rocephin and Azithromycin IV fluids MAT protocol Chest pain Troponin normal EKG with sinus tachycardia Appears to be LUQ abdominal pain, likely related to severe consipation Iron deficiency anemia Hgb 7.1 this morning, decreased from prior Transfuse 1 unit PRBC Iron studies consistent with iron deficiency Occult blood pending Holding Xarelto B12/folate low normal Continue folic acid Venofer ordered Surgery following Obstipation CT with significant rectal distension and stool in rectal vault Surgery following Planning for enemas today HTN Hold home meds, BP low HLD AFib PAD CAD COPD Continue home meds as able DVT prophylaxis: held due to anemia/presumed GI bleed Critical Care Critically Ill Patient Diagnosis/Problems Diagnosis/Problems (1) Acute on chronic respiratory failure with hypoxia Status: Acute (2) PNA (pneumonia) Status: Acute Qualifiers: Laterality: right Lung location: middle lobe of lung (3) Severe sepsis Status: Acute (4) Sepsis due to pneumonia Status: Acute (5) HTN (hypertension) Status: Chronic (6) COPD (chronic obstructive pulmonary disease) Status: Chronic (7) PVD (peripheral vascular disease) Status: Chronic (8) CAD (coronary artery disease) Status: Chronic (9) Paroxysmal atrial fibrillation Status: Chronic (10) Iron deficiency anemia Status: Acute (11) Chronic respiratory failure with hypoxia Status: Chronic (12) Constipation Status: Acute (13) Fecal impaction in rectum Status: Acute CLAU DUONG MD Dec 01, 2022 12:26
--- NOTE | 2022-12-01 12:35 | Tele-ICU Consult ---
History of Present Illness History of Present Illness Date Seen by Provider: Dec 01, 2022 Time Seen by Provider: 12:30 Reason for Visit: abdominal pain History of Present Illness 62 yo M with increasing SOB, originally admitted on November 29 for sepsis and PNA. Started on IV Rocephin, CT chest abd showed severe hyperinflation and chronic constipation. Seen by surgery, given Fleet' enema and had BM, stool neg for blood Transferred to MICU for increasing oxygen needs. now on vapotherm 30 lpm FiO2 70%, now still has increased WOB, no ABG, will order Has Jackson for urinary incontinence, on LA @ 125 mL/h Hb has dropped from 9.3 to 7.1, to get one unit of PRBC, no active bleeding seen by RN Was on Xarelto for a fib, now on hold, given for Hx of a fib, EKG today shows sinus tach, low voltage Pt getting Dilaudid for chronic chest and abd pain-last dose 1 mg one hour ago Pt is current smoker Allergies and Home Medications Allergies Coded Allergies: No Known Drug Allergies (Verified , 07/11/09) Home Medications Albuterol Sulfate 18 Gm Hfa.aer.ad, 2 PUFF INH Q6H PRN for SHORTNESS OF BREATH, (Reported) Alprazolam 0.5 Mg Tablet, 0.5 MG PO TID PRN for ANXIETY, (Reported) Atorvastatin Calcium 40 Mg Tablet, 40 MG PO DAILY, (Reported) Baclofen 10 Mg Tablet, 10 MG PO BID PRN for MUSCLE SPASMS, (Reported) Digoxin 125 Mcg (0.125 Mg) Tablet, 250 MCG PO DAILY, (Reported) TAKES 2 (125MCG) DAILY Diltiazem HCl 120 Mg Cap.er.24h, 120 MG PO DAILY, (Reported) Docusate Sodium 100 Mg Capsule, 100 MG PO BID PRN for CONSTIPATION-1ST LINE, (Reported) Furosemide 40 Mg Tablet, 40 MG PO DAILY, (Reported) Ipratropium/Albuterol Sulfate 0.5 Mg-3 Mg (2.5 Mg Base)/3 Ml Ampul.neb, 3 ML IH BID PRN for SHORTNESS OF BREATH, (Reported) Polyethylene Glycol 3350 17 Gram Powd.pack, 17 GM PO DAILY PRN for CONSTIPATION- 2ND LINE, (Reported) Rivaroxaban 20 Mg Tablet, 20 MG PO DAILY, (Reported) Past Medical/Social/Family Hx Patient Social History Tobacco Use?: Yes Tobacco type used: Cigarettes Smoking Status: Former Smoker Use of E-Cig and/or Vaping dev: No Substance use?: No Alcohol Use?: No Pt stated abuse/neglect: No Immunizations Up To Date Influenza Vaccine Up-to-Date: Yes; Up-to-Date First/Initial COVID19 Vaccinat: RECEIVED, UNK WHEN Second COVID19 Vaccination Hemanth: RECEIVED, UNK WHEN Tetanus Booster (TDap): Unknown Hepatitis A: No Hepatitis B: No TB Skin Test: None Current Status Advance Directives: No Communicates: Verbally Primary Language: Norwegian Preferred Spoken Language: Norwegian Is interpretation needed?: No Sensory deficits: Hearing impairment Family Medical History Family Hx: CARDIAC CATH 11/09/[address] BELLAMY: CONCLUSION: 1. Mild coronary artery disease nonobstructive disease 2. Normal left ventricular size and systolic function estimate ejection fraction 60% 3. Normal abdominal aorta and bifurcation with runoff down to the trifurcation with slow flow in the SFA bilaterally, probably small vessel disease distally DISCUSSION AND RECOMMENDATION: Maximizing medical therapy, no intervention is recommended Review of Systems Constitutional: see HPI EENTM: see HPI Respiratory: see HPI Cardiovascular: see HPI Gastrointestinal: see HPI Genitourinary: see HPI Musculoskeletal: see HPI Skin: see HPI Psychiatric/Neurological: See HPI Focused Exam Lactate Level 11/29/22 13:07: Lactic Acid Level 2.54*H 11/29/22 15:16: Lactic Acid Level 2.25*H 11/29/22 17:50: Lactic Acid Level 1.76 Height, Weight, BMI Height: '" Weight: lbs. oz. kg; 16.42 BMI Method: Exam Exam Patient acknowledged, consented, and participated in this virtual visit which was conducted using real time audio/video Vital Signs Date Time Temp Pulse Resp B/P (MAP) Pulse Ox O2 Delivery O2 Flow Rate FiO2 12/01/22 12:00 98 Vapotherm 30.00 70 12/01/22 12:00 98 22 112/68 (82) 98 Vapotherm 30.00 70.00 12/01/22 11:45 104 24 118/76 (90) 99 Vapotherm 30.00 70.00 12/01/22 11:20 36.8 106 22 115/69 (84) 98 Vapotherm 30.00 70.00 12/01/22 10:33 90 Vapotherm 30.00 70 12/01/22 08:00 90 Vapotherm 30.00 12/01/22 07:39 38.0 108 18 129/71 (90) 96 70.00 30.00 12/01/22 07:03 96 Vapotherm 30.00 70 12/01/22 07:00 111 12/01/22 03:10 37.5 104 18 137/74 (95) 96 Vapotherm 70.00 30.00 12/01/22 02:24 90 Vapotherm 25.00 70 12/01/22 02:19 109 127/72 (90) 12/01/22 02:06 81 Nasal Cannula 4.50 12/01/22 01:00 101 11/30/22 23:42 36.5 99 18 114/69 (84) 91 Nasal Cannula 5.00 11/30/22 22:32 Nasal Cannula 4.00 11/30/22 20:53 Nasal Cannula 4.00 11/30/22 19:48 37.5 105 20 112/70 (84) 94 Nasal Cannula 4.00 11/30/22 19:00 108 11/30/22 18:55 90 Nasal Cannula 4.00 11/30/22 15:53 37.3 93 18 100/61 (74) 100 Nasal Cannula 4.00 11/30/22 15:15 96 Nasal Cannula 4.00 11/30/22 13:00 85 I & O 12/01/22 07:00 Intake Total 2560 ml Output Total 2950 ml Balance -390 ml Height & Weight Height: '" Weight: lbs. oz. kg; 16.42 BMI Method: General Appearance: Anxious, Chronically ill, Mild Distress (uncomfortable) HEENT: PERRL/EOMI, Pale Conjunctivae (L), Pale Conjunctivae (R) Neck: Supple; No Lymphadenopathy (L), No Lymphadenopathy (R) Respiratory: Decreased Breath Sounds, Wheezing, Other (very diminshed breath sounds both lungs) Cardiovascular: No Murmur, Tachycardia Peripheral Pulses: 1+ Dorsalis Pedis (R), 1+ Left Dors-Pedis (L); 2+ Radial Pulses (R), 2+ Radial Pulses (L) Gastrointestinal: normal bowel sounds, non tender, no organomegaly, no pulsatile mass, abnormal bowel sounds (hypoactive x 4), distended, guarding, tenderness (Left upper and lower quadrants ), other (abd is firm with diminished bowel sounds) Extremity: Normal Inspection, No Pedal Edema Neurologic/Psychiatric: Alert, No Motor/Sensory Deficits Skin: Warm/Dry, Pallor Results Lab Laboratory Tests 11/29/22 13:07 11/30/22 05:01 12/01/22 05:40 Assessment/Plan Assessment/Plan Acute exacerbation of COPD, would add either Trelegy or IV Medrol 125 q 8, will also add IV PPI stat ABG looking for CO2 retention Needs to be watched closely for CO2 retention, Spoke with ends breakage clerk: Critically Ill Patient Time spent with patient (mins): 35 SILAS ABEBE MD Dec 01, 2022 12:35
[2022-12-01 12:53] LABS: ABG BASE EXCESS 9.1 MMOL/L (-2.5-2.5); ABG OXYGEN SATURATION 98 % (94-100); ABG PCO2 68 MMHG (35-45); ABG PO2 100 MMHG (79-93); ABG TCO2 37.3 MMOL/L (21.0-31.0)
[2022-12-01 12:55] LABS: ABG PH 7.33 (7.37-7.43); ALLENS TEST YES-POS; INSPIRED O2 70%; PATIENT TEMP 36.6; VENTILATOR NO
--- NOTE | 2022-12-01 13:21 | Progress Note ---
Standard Progress Note Progress Notes/Assess & Plan Date Seen by a Provider: Dec 01, 2022 Time Seen by a Provider: 13:19 Progress/Assessment & Plan ABG 7.33, pCO2 68, pO2 100, will start BiPAP 08/21 and continue FiO2 70% SILAS ABEBE MD Dec 01, 2022 13:21
[2022-12-01] MEDS: methylPREDNISolone 125 MG (Solu-MEDROL) VIAL IVP SCH ×2 (14:42→22:52)
[2022-12-01] MEDS: cefTRIAXone 1 GM PRE-MIX 50 ML IV SCH (16:23)
[2022-12-01 19:57] LABS: HEMOGLOBIN 8.7 g/dL (13.3-17.7)
[2022-12-02] MEDS: HYDROcodone/APAP 5 MG/325 MG (LORTAB) TAB PO PRN (00:43)
[2022-12-02] MEDS: RT-ALBUTEROL/IPRATROPIUM 3 ML (DUONEB) VIAL INH SCH ×6 (02:40→22:18)
[2022-12-02] MEDS: HYDROmorphone 2 MG/ML VIAL (DILAUDID) IV PRN ×6 (02:54→20:49)
[2022-12-02] MEDS: LACTATED RINGERS 1,000 ML IV SCH ×3 (02:54→22:35)
[2022-12-02 05:17] LABS: BASOPHILS % (AUTO) 0 % (0-10); EOSINOPHILS % (AUTO) 0 % (0-10); HEMATOCRIT 26 % (40-54); HEMOGLOBIN 8.1 g/dL (13.3-17.7); LYMPHOCYTES # (AUTO) 0.4 10^3/uL (1.0-4.0); LYMPHOCYTES % (AUTO) 3 % (12-44); MEAN CORPUSCULAR HEMOGLOBIN 26 pg (25-34); MEAN CORPUSCULAR HGB CONC 31 g/dL (32-36); MEAN CORPUSCULAR VOLUME 83 fL (80-99); MEAN PLATELET VOLUME 10.3 fL (9.0-12.2); MONOCYTES # (AUTO) 0.3 10^3/uL (0.0-1.0); MONOCYTES % (AUTO) 2 % (0-12); NEUTROPHILS # (AUTO) 12.3 10^3/uL (1.8-7.8); NEUTROPHILS % (AUTO) 94 % (42-75); PLATELET COUNT 375 10^3/uL (130-400)
[2022-12-02 05:30] LABS: CREATININE SERUM 0.56 MG/DL (0.60-1.30); MAGNESIUM 1.9 MG/DL (1.6-2.4); POTASSIUM 4.4 MMOL/L (3.6-5.0)
[2022-12-02] MEDS: POTASSIUM CL 10MEQ/50ML IVPB 50 ML IV SCH (05:44)
[2022-12-02] MEDS: KCL 20 MEQ TAB (K-DUR) PO SCH (05:45)
[2022-12-02] MEDS: MAGNESIUM 1 GM/100 ML IVPB 100 ML IV SCH ×3 (05:45→09:00)
[2022-12-02] MEDS: POTASSIUM BICARB 20 MEQ (EFFER-K) TABLET PO SCH (05:45)
[2022-12-02] MEDS: methylPREDNISolone 125 MG (Solu-MEDROL) VIAL IVP SCH ×3 (06:19→22:35)
--- NOTE | 2022-12-02 08:08 | Tele-ICU Progress Note ---
Progress Note video rounds completed 62 y/o male with COPD and a fib admitted to ICU with PNA and sepsis Was on Xarelto for a fib but Hgb was low and received 1 unit PRBCs yesterday. Anticoagulation on hold. Currently in sinus rythym PE: sitting up in bed, having breakfast All VSS Labs improving WBC down to 13,000 from 20, hGB: 8.1 Plan: continus Iv antibiotics for PNA await stabilization of Hgb before restarting anticoagulation Time spent with patient, reviewing labs and Cxr: 20 minutes Focused Exam Lactate Level 11/29/22 13:07: Lactic Acid Level 2.54*H 11/29/22 15:16: Lactic Acid Level 2.25*H 11/29/22 17:50: Lactic Acid Level 1.76 Height, Weight, BMI Height: '" Weight: lbs. oz. kg; 16.42 BMI Method: Labs Laboratory Tests 12/01/22 19:53 12/02/22 04:23 Results Results/Procedures Lab Laboratory Tests 12/01/22 05:40 12/01/22 19:53 12/02/22 04:23 Results Results/Procedures Labs Laboratory Tests 12/01/22 05:40 12/01/22 19:53 12/02/22 04:23 Patient resulted labs reviewed. Imaging: Reviewed Imaging Report Results Labs Labs Laboratory Tests 12/01/22 10:28: Troponin I < 0.028 12/01/22 11:40: Stool Occult Blood Immunoassay NEGATIVE 12/01/22 12:45: Blood Gas Puncture Site RT RAD, Blood Gas Patient Temperature 36.6, Arterial Blood pH 7.33*L, Arterial Blood Partial Pressure CO2 68H, Arterial Blood Partial Pressure O2 100H, Arterial Blood HCO3 35H, Arterial Blood Total CO2 37.3H, Arterial Blood Oxygen Saturation 98, Arterial Blood Base Excess 9.1H, Ace Test YES-POS, Blood Gas Ventilator Setting NO, Blood Gas Inspired Oxygen 70% 12/01/22 16:57: Glucometer 182H 12/01/22 19:53: Hemoglobin 8.7#L, Hematocrit 28L 12/02/22 04:23: Hemoglobin 8.1L, Hematocrit 26L, White Blood Count 13.0H, Red Blood Count 3.15L, Mean Corpuscular Volume 83, Mean Corpuscular Hemoglobin 26, Mean Corpuscular Hemoglobin Concent 31L, Red Cell Distribution Width 16.6H, Platelet Count 375, Mean Platelet Volume 10.3, Immature Granulocyte % (Auto) 0, Neutrophils (%) (Auto) 94H, Lymphocytes (%) (Auto) 3L, Monocytes (%) (Auto) 2, Eosinophils (%) (Auto) 0, Basophils (%) (Auto) 0, Neutrophils # (Auto) 12.3H, Lymphocytes # (Auto) 0.4L, Monocytes # (Auto) 0.3, Eosinophils # (Auto) 0.0, Basophils # (Auto) 0.0, Immature Granulocyte # (Auto) 0.1, Sodium Level 137, Potassium Level 4.4, Chloride Level 99, Carbon Dioxide Level 31, Anion Gap 7, Blood Urea Nitrogen 13, Creatinine 0.56L, Estimat Glomerular Filtration Rate 113, BUN/Creatinine Ratio 23, Glucose Level 206H, Calcium Level 9.0, Magnesium Level 1.9 Microbiology 11/29/22 Blood Culture - Preliminary, Resulted No growth SILAS LEIGH MD Dec 02, 2022 08:08
[2022-12-02] MEDS: SENNOSIDES 8.6 MG (SENOKOT) TAB PO SCH ×2 (08:28→20:48)
[2022-12-02] MEDS: IRON SUCROSE 200 MG/10 ML (VENOFER) VIAL IV SCH (08:28)
[2022-12-02] MEDS: PANTOPRAZOLE 40 MG (PROTONIX) VIAL IV SCH (08:28)
[2022-12-02] MEDS: DOCUSATE SODIUM 100 MG (COLACE) CAP PO SCH ×2 (08:28→20:48)
[2022-12-02] MEDS: DIGOXIN 0.25 MG (LANOXIN) TAB PO SCH (08:28)
[2022-12-02] MEDS: dilTIAZem120 MG (CARDIZEM CD) CAP PO SCH (08:28)
[2022-12-02] MEDS: DULoxetine 30 MG (CYMBALTA) CAP PO SCH (08:28)
[2022-12-02] MEDS: FOLIC ACID 1 MG TAB PO SCH (08:28)
[2022-12-02] MEDS: GABAPENTIN 400 MG (NEURONTIN) CAP PO SCH ×2 (08:29→20:48)
[2022-12-02] MEDS: ALPRAZolam 0.5 MG (XANAX) TAB PO PRN (09:42)
[2022-12-02] MEDS: guaiFENesin/DM (ROBITUSSIN DM) 10 ML UDC PO PRN ×2 (11:49→16:10)
[2022-12-02] MEDS: cefTRIAXone 1 GM PRE-MIX 50 ML IV SCH (16:12)
--- NOTE | 2022-12-02 17:39 | Progress Note - Hospitalist ---
Subjective HPI/CC On Admission Date Seen by Provider: Dec 02, 2022 Time Seen by Provider: 09:45 Moshe Soto (Willy) is a 62 year old male with PMH HTN, HLD, AFib, PAD, CAD, COPD, who presented with shortness of breath. He has had a cough. He has had chest pain. He also reports abdominal pain. He has been nauseous. He denies vomiting. He denies diarrhea. He denies fevers and chills. He is on 4 L continous oxygen at baseline. Subjective/Events-last exam He continues to have pain. He had some bowel movements yesterday. He says his abdominal pain is improving. He is not short of breath. Focused Exam Lactate Level 11/29/22 17:50: Lactic Acid Level 1.76 Objective Exam Vital Signs Vital Signs Date Time Temp Pulse Resp B/P (MAP) Pulse Ox O2 Delivery O2 Flow Rate FiO2 12/02/22 17:00 89 119/66 (83) 95 Vapotherm 30.00 60.00 12/02/22 16:00 24 12/02/22 16:00 65 12/02/22 16:00 36.7 Capillary Refill : Less Than 3 Seconds General Appearance: No Apparent Distress, Anxious, Chronically ill Respiratory: No Accessory Muscle Use, No Respiratory Distress, Wheezing Cardiovascular: Regular Rate, Rhythm, No Murmur Gastrointestinal: Normal Bowel Sounds, Non Tender, Soft Extremity: Normal Inspection, No Pedal Edema Neurologic/Psychiatric: Alert, Depressed Affect Skin: Normal Color, Warm/Dry Results/Procedures Lab Laboratory Tests 12/01/22 19:53 12/02/22 04:23 Patient resulted labs reviewed. Imaging: Reviewed Imaging Report Assessment/Plan Assessment and Plan Assess & Plan/Chief Complaint Severe sepsis Pneumonia Acute on chronic respiratory failure with hypoxia and hypercapnia Chest pain CXR with RML PNA Continue Vapotherm/BiPAP as needed Rocephin and Azithromycin IV fluids MAT protocol TeleICU following Iron deficiency anemia Hgb 8.1 this morning, improved s/p 1 unit PRBC Iron studies consistent with iron deficiency Occult blood negative Resume Xarelto B12/folate low normal Continue folic acid Continue Venofer Surgery following Obstipation Resolved Continue bowel regimen HTN Hold home meds, BP low HLD AFib PAD CAD COPD Continue home meds as able Critical Care Critically Ill Patient Diagnosis/Problems Diagnosis/Problems (1) Acute on chronic respiratory failure with hypoxia and hypercapnia Status: Acute (2) PNA (pneumonia) Status: Acute Qualifiers: Laterality: right Lung location: middle lobe of lung (3) Severe sepsis Status: Acute (4) Sepsis due to pneumonia Status: Acute (5) HTN (hypertension) Status: Chronic (6) COPD (chronic obstructive pulmonary disease) Status: Chronic (7) PVD (peripheral vascular disease) Status: Chronic (8) CAD (coronary artery disease) Status: Chronic (9) Paroxysmal atrial fibrillation Status: Chronic (10) Iron deficiency anemia Status: Acute (11) Chronic respiratory failure with hypoxia Status: Chronic (12) Constipation Status: Acute (13) Fecal impaction in rectum Status: Acute CLAU DUONG MD Dec 02, 2022 17:39
[2022-12-02] MEDS ORDERED: RIVAROXABAN 20 MG TABLET (XARELTO) PO ONE (17:45)
[2022-12-03] MEDS: HYDROmorphone 2 MG/ML VIAL (DILAUDID) IV PRN ×3 (01:38→09:31)
[2022-12-03] MEDS: RT-ALBUTEROL/IPRATROPIUM 3 ML (DUONEB) VIAL INH SCH ×6 (02:28→22:40)
[2022-12-03 04:35] LABS: BASOPHILS % (AUTO) 0 % (0-10); EOSINOPHILS % (AUTO) 0 % (0-10); HEMATOCRIT 25 % (40-54); HEMOGLOBIN 7.8 g/dL (13.3-17.7); LYMPHOCYTES # (AUTO) 0.5 10^3/uL (1.0-4.0); LYMPHOCYTES % (AUTO) 4 % (12-44); MEAN CORPUSCULAR HEMOGLOBIN 26 pg (25-34); MEAN CORPUSCULAR HGB CONC 31 g/dL (32-36); MEAN CORPUSCULAR VOLUME 83 fL (80-99); MEAN PLATELET VOLUME 10.3 fL (9.0-12.2); MONOCYTES # (AUTO) 0.4 10^3/uL (0.0-1.0); MONOCYTES % (AUTO) 3 % (0-12); NEUTROPHILS # (AUTO) 12.6 10^3/uL (1.8-7.8); NEUTROPHILS % (AUTO) 93 % (42-75); PLATELET COUNT 388 10^3/uL (130-400); WHITE BLOOD COUNT 13.6 10^3/uL (4.3-11.0)
[2022-12-03 04:45] LABS: CALCIUM 9.2 MG/DL (8.5-10.1); CREATININE SERUM 0.54 MG/DL (0.60-1.30); MAGNESIUM 1.9 MG/DL (1.6-2.4); POTASSIUM 4.1 MMOL/L (3.6-5.0)
[2022-12-03] MEDS: MAGNESIUM 1 GM/100 ML IVPB 100 ML IV SCH ×3 (05:56→08:11)
[2022-12-03] MEDS: POTASSIUM CL 10MEQ/50ML IVPB 50 ML IV SCH (05:56)
[2022-12-03] MEDS: POTASSIUM BICARB 20 MEQ (EFFER-K) TABLET PO SCH (05:56)
[2022-12-03] MEDS: KCL 20 MEQ TAB (K-DUR) PO SCH (05:57)
[2022-12-03] MEDS: methylPREDNISolone 125 MG (Solu-MEDROL) VIAL IVP SCH ×3 (06:26→22:02)
[2022-12-03] MEDS: LACTATED RINGERS 1,000 ML IV SCH (06:26)
--- NOTE | 2022-12-03 08:04 | Diagnostic Imaging Report ---
INDICATION: Pneumonia. TECHNIQUE: Single view chest 7:28 AM. CORRELATION STUDY: 12/01/2022 FINDINGS: The heart size, mediastinal configuration and pulmonary vascularity are within normal limits. Severe fibroemphysematous change about the lung parenchyma again demonstrated. More focal opacity in the right mid lung field does persist but appears perhaps minimally improved. Small effusions do appear to have developed. IMPRESSION: 1. Severe fibroemphysematous change about the lung parenchyma. Superimposed infiltrate/opacity right mid lung field does persist but perhaps minimally improved. 2. Development of what appears to be small effusions. Dictated by: Dictated on workstation # [id number]
[2022-12-03] MEDS: FOLIC ACID 1 MG TAB PO SCH (08:10)
[2022-12-03] MEDS: SENNOSIDES 8.6 MG (SENOKOT) TAB PO SCH ×2 (08:10→22:03)
[2022-12-03] MEDS: ALPRAZolam 0.5 MG (XANAX) TAB PO PRN (08:10)
[2022-12-03] MEDS: dilTIAZem120 MG (CARDIZEM CD) CAP PO SCH (08:10)
[2022-12-03] MEDS: DULoxetine 30 MG (CYMBALTA) CAP PO SCH (08:10)
[2022-12-03] MEDS: DIGOXIN 0.25 MG (LANOXIN) TAB PO SCH (08:10)
[2022-12-03] MEDS: DOCUSATE SODIUM 100 MG (COLACE) CAP PO SCH ×2 (08:10→22:03)
[2022-12-03] MEDS: PANTOPRAZOLE 40 MG (PROTONIX) VIAL IV SCH (08:10)
[2022-12-03] MEDS: GABAPENTIN 400 MG (NEURONTIN) CAP PO SCH ×2 (08:10→22:03)
[2022-12-03] MEDS: DexMEDEtomidine 250 ML DRIP 250 ML IV SCH (09:44)
[2022-12-03 10:01] VITALS: BP 115/55
[2022-12-03 10:12] LABS: ABG BASE EXCESS 14.3 MMOL/L (-2.5-2.5); ABG OXYGEN SATURATION 100 % (94-100); ABG PH 7.35 (7.37-7.43); ABG PO2 179 MMHG (79-93)
[2022-12-03 10:14] LABS: ABG PCO2 75 MMHG (35-45); ABG TCO2 42.6 MMOL/L (21.0-31.0); ALLENS TEST POSITIVE; INSPIRED O2 60%; VENTILATOR NO
[2022-12-03 10:15] LABS: PATIENT TEMP 37.5
--- NOTE | 2022-12-03 11:20 | Tele-ICU Progress Note ---
Subjective Date Seen by a Provider: Dec 03, 2022 Time Seen by a Provider: 11:20 Subjective/Events-last exam (Tele-ICU Physician , Progress Note ) Service provided via interactive audio and video telecommunications E-CARE system to a patient admitted to ICU bed in [facility]. Patient is seen today due to persistent need of ICU care Available chart/ vitals / labs / Images reviewed Video assessment done using teleICU camera, rest of exam as per RN Discussed with RN Events overnight : Afebrile hemodynamically stable Respiratory - I/O = Drips: Pressors- no Hospital course: (11/29) 62M Admitted to floor for sepsis PNA/COPD, constipation, Anemia, possible bactermia (12/01) TX to ICU: holding xarelto ,s/p 1 unit PRBC 12/01 Hypercapnia-Bipap (12/02) Xarelto resumed (12/03) - VT 30 L 60 % A/P Acute hypoxixc resp failure - VT 30 L 60 % - BIPAP prn , but refused last nigh Chronic resp hypoxi failure with sebere emphysema on CT - on home o2 ? AECOPD - steroids IV 125 q 8 - nebs PNA, RIL - sputum cx ? pending -cont abx cefrtiaxone 11/30 PAF -in sinus now - rate control with cardizem , on dig po [employer] -on xarelto CAD - no chest pain - s/p cath 10/2021, mild dz , EF 60% Iron deficiency anemia -Hgb follow , on Iron -s/p 1 unit PRBC 12/01 -on xarelto -Surgery following JOHN infiltrate and lung nodules - s/p FOB 03/2020 Pain - as per bedside team , ? chronic Lines : periph lines , (Central Line Necessity Reviewed) Jackson: + OG: Nutrition: po Analgesia: Anxiety/ delirium VTE Prophylaxis: xarelto Stress Ulcer Prophylaxis: ppi Plans in collaboration with bedside consultants and IM MDs. Discussed with RN to reach out if any questions or concerns Case and care daily discussed on multidisciplinary rounds ( RN, PharmD, Barrel Plater , Respiratory Therapy, template worker ) A total of 32 minutes of critical care time was devoted to this patient today, required to treat and/or prevent further deterioration of critical care condition ( as above ) . I am remotely monitoring this patient from another state. I am unable to do the bedside exam, and history/physical and pertinent information is taken from other notes in the computer and bedside staff. Sepsis Event Evaluation Height, Weight, BMI Height: '" Weight: lbs. oz. kg; 16.42 BMI Method: Exam Exam Patient acknowledged, consented, and participated in this virtual visit which was conducted using real time audio/video Vital Signs Date Time Temp Pulse Resp B/P (MAP) Pulse Ox O2 Delivery O2 Flow Rate FiO2 12/03/22 10:09 97 NIV Bilevel 50.00 12/03/22 10:01 93 16 98 50.00 12/03/22 09:55 NIV Bilevel 65.00 12/03/22 09:44 102 117/76 12/03/22 09:00 108 115/55 (75) 91 Vapotherm 30.00 60.00 12/03/22 08:30 37.5 12/03/22 08:00 102 30 117/76 (90) 92 Vapotherm 30.00 60.00 12/03/22 08:00 96 Vapotherm 30.00 60 12/03/22 07:00 102 22 135/72 (93) 92 Vapotherm 30.00 60.00 12/03/22 07:00 100 12/03/22 06:48 Vapotherm 30.00 60 12/03/22 06:00 87 129/70 (89) 97 Vapotherm 30.00 60.00 12/03/22 05:00 91 131/70 (90) 95 Vapotherm 30.00 60.00 12/03/22 04:00 101 35 136/73 (94) 95 Vapotherm 30.00 60.00 12/03/22 04:00 96 Vapotherm 30.00 60 12/03/22 03:00 96 32 134/75 (94) 95 Vapotherm 30.00 60.00 12/03/22 02:28 Vapotherm 30.00 60 12/03/22 02:00 94 15 117/65 (82) 95 Vapotherm 30.00 60.00 12/03/22 01:00 108 35 134/76 (95) 96 Vapotherm 30.00 60.00 12/03/22 01:00 98 12/03/22 00:26 37.3 99 36 128/98 (108) 92 12/03/22 00:00 101 26 128/64 (85) 98 Vapotherm 30.00 60.00 12/02/22 23:59 96 Vapotherm 30.00 60 12/02/22 23:00 89 28 109/64 (79) 92 Vapotherm 30.00 60.00 12/02/22 22:18 Vapotherm 30.00 60 12/02/22 22:00 87 15 130/73 (92) 90 Vapotherm 30.00 60.00 12/02/22 21:00 97 25 130/81 (97) 93 Vapotherm 30.00 60.00 12/02/22 20:11 36.7 12/02/22 20:00 92 20 123/75 (91) 96 Vapotherm 30.00 60.00 12/02/22 20:00 95 Vapotherm 30.00 60 12/02/22 19:15 Vapotherm 30.00 60 12/02/22 19:00 97 32 131/73 (92) 96 Vapotherm 30.00 60.00 12/02/22 19:00 92 12/02/22 18:00 87 25 123/58 (79) 98 Vapotherm 30.00 60.00 12/02/22 17:00 89 119/66 (83) 95 Vapotherm 30.00 60.00 12/02/22 16:00 96 24 111/94 (100) 95 Vapotherm 30.00 60.00 12/02/22 16:00 97 Vapotherm 30.00 65 12/02/22 16:00 36.7 12/02/22 15:00 101 26 Vapotherm 30.00 60.00 12/02/22 14:30 Vapotherm 30.00 60 12/02/22 14:00 95 129/70 (89) 93 Vapotherm 30.00 60.00 12/02/22 13:00 98 120/71 (87) 95 Vapotherm 30.00 60.00 12/02/22 12:34 97 12/02/22 12:00 106 21 106/68 (81) 92 Vapotherm 30.00 60.00 12/02/22 12:00 97 Vapotherm 30.00 65 12/02/22 11:49 37.5 I & O 12/03/22 07:00 Intake Total 3207 ml Output Total 2599 ml Balance 608 ml Height & Weight Height: '" Weight: lbs. oz. kg; 16.42 BMI Method: General Appearance: No Apparent Distress, Anxious, Chronically ill HEENT: PERRL/EOMI, Pale Conjunctivae (L), Pale Conjunctivae (R) Neck: Supple; No Lymphadenopathy (L), No Lymphadenopathy (R) Respiratory: No Accessory Muscle Use, No Respiratory Distress, Wheezing Cardiovascular: Regular Rate, Rhythm, No Murmur Capillary Refill: Less Than 3 Seconds Peripheral Pulses: 1+ Dorsalis Pedis (R), 1+ Left Dors-Pedis (L); 2+ Radial Pulses (R), 2+ Radial Pulses (L) Gastrointestinal: no organomegaly, no pulsatile mass, abnormal bowel sounds (hypoactive x 4), guarding, tenderness (Left upper and lower quadrants ), other (DANIEL done, stool in rectal vault mostly soft - possibly closer to soft magdalena consistency but definitely not hard) Extremity: Normal Inspection, No Pedal Edema Neurologic/Psychiatric: Alert, Depressed Affect Skin: Normal Color, Warm/Dry Results Lab Laboratory Tests 12/01/22 19:53 12/02/22 04:23 12/03/22 03:35 Assessment/Plan Assessment/Plan 1 YADY VIGIL MD Dec 03, 2022 11:20
[2022-12-03 14:51] VITALS: BP 118/72
[2022-12-03] MEDS: RIVAROXABAN 20 MG TABLET (XARELTO) PO SCH (16:37)
[2022-12-03] MEDS: cefTRIAXone 1 GM PRE-MIX 50 ML IV SCH (16:38)
--- NOTE | 2022-12-03 16:48 | Progress Note - Hospitalist ---
Subjective HPI/CC On Admission Date Seen by Provider: Dec 03, 2022 Time Seen by Provider: 09:25 Moshe Soto (Willy) is a 62 year old male with PMH HTN, HLD, AFib, PAD, CAD, COPD, who presented with shortness of breath. He has had a cough. He has had chest pain. He also reports abdominal pain. He has been nauseous. He denies vomiting. He denies diarrhea. He denies fevers and chills. He is on 4 L continous oxygen at baseline. Subjective/Events-last exam He is short of breath. He continues to have pain. Objective Exam Vital Signs Vital Signs Date Time Temp Pulse Resp B/P (MAP) Pulse Ox O2 Delivery O2 Flow Rate FiO2 12/03/22 16:00 61 17 117/74 (88) 97 NIV Bilevel 50.00 12/03/22 16:00 35.8 12/03/22 12:00 50 Capillary Refill : Less Than 3 Seconds General Appearance: Chronically ill, Severe Distress (dyspnea), Thin Respiratory: Decreased Breath Sounds, Respiratory Distress, Wheezing Cardiovascular: No Murmur, Tachycardia Gastrointestinal: Normal Bowel Sounds, Soft Extremity: Normal Inspection, No Pedal Edema Neurologic/Psychiatric: Alert, No Motor/Sensory Deficits Results/Procedures Lab Laboratory Tests 12/03/22 03:35 Patient resulted labs reviewed. Imaging: Reviewed Imaging Report Assessment/Plan Assessment and Plan Assess & Plan/Chief Complaint Severe sepsis Pneumonia Acute on chronic respiratory failure with hypoxia and hypercapnia Chest pain CXR with RML PNA ABG with acute hypercapnia Resume BiPAP Rocephin and Azithromycin Steroids MAT protocol TeleICU following Iron deficiency anemia Hgb 7.8 this morning, stable s/p 1 unit PRBC Iron studies consistent with iron deficiency Occult blood negative Continue Xarelto B12/folate low normal Continue folic acid Continue Venofer Surgery following Obstipation Resolved Continue bowel regimen HTN Hold home meds, BP low HLD AFib PAD CAD COPD Continue home meds as able Critical Care Critically Ill Patient Diagnosis/Problems Diagnosis/Problems (1) Acute on chronic respiratory failure with hypoxia and hypercapnia Status: Acute (2) PNA (pneumonia) Status: Acute Qualifiers: Laterality: right Lung location: middle lobe of lung (3) Severe sepsis Status: Acute (4) Sepsis due to pneumonia Status: Acute (5) HTN (hypertension) Status: Chronic (6) COPD (chronic obstructive pulmonary disease) Status: Chronic (7) PVD (peripheral vascular disease) Status: Chronic (8) CAD (coronary artery disease) Status: Chronic (9) Paroxysmal atrial fibrillation Status: Chronic (10) Iron deficiency anemia Status: Acute (11) Chronic respiratory failure with hypoxia Status: Chronic (12) Constipation Status: Acute (13) Fecal impaction in rectum Status: Acute CLAU DUONG MD Dec 03, 2022 16:48
[2022-12-03 18:30] VITALS: BP 114/73
[2022-12-03 22:40] VITALS: BP 119/78
[2022-12-04 03:03] VITALS: BP 121/77
[2022-12-04] MEDS: RT-ALBUTEROL/IPRATROPIUM 3 ML (DUONEB) VIAL INH SCH ×6 (03:03→23:03)
[2022-12-04 04:51] LABS: BASOPHILS % (AUTO) 0 % (0-10); EOSINOPHILS % (AUTO) 0 % (0-10); HEMATOCRIT 28 % (40-54); HEMOGLOBIN 8.6 g/dL (13.3-17.7); LYMPHOCYTES # (AUTO) 0.6 10^3/uL (1.0-4.0); LYMPHOCYTES % (AUTO) 9 % (12-44); MEAN CORPUSCULAR HEMOGLOBIN 25 pg (25-34); MEAN CORPUSCULAR HGB CONC 31 g/dL (32-36); MEAN CORPUSCULAR VOLUME 81 fL (80-99); MEAN PLATELET VOLUME 10.1 fL (9.0-12.2); MONOCYTES # (AUTO) 0.3 10^3/uL (0.0-1.0); MONOCYTES % (AUTO) 4 % (0-12); NEUTROPHILS # (AUTO) 6.1 10^3/uL (1.8-7.8); NEUTROPHILS % (AUTO) 86 % (42-75); PLATELET COUNT 408 10^3/uL (130-400); WHITE BLOOD COUNT 7.1 10^3/uL (4.3-11.0)
[2022-12-04 05:20] LABS: CALCIUM 9.1 MG/DL (8.5-10.1); CREATININE SERUM 0.51 MG/DL (0.60-1.30); POTASSIUM 3.8 MMOL/L (3.6-5.0)
[2022-12-04] MEDS: DexMEDEtomidine 250 ML DRIP 250 ML IV SCH (06:16)
[2022-12-04] MEDS: methylPREDNISolone 125 MG (Solu-MEDROL) VIAL IVP SCH (06:16)
[2022-12-04] MEDS: POTASSIUM CL 10MEQ/50ML IVPB 50 ML IV SCH ×3 (06:20→09:28)
[2022-12-04] MEDS: MAGNESIUM 1 GM/100 ML IVPB 100 ML IV SCH (06:20)
[2022-12-04] MEDS: KCL 20 MEQ TAB (K-DUR) PO SCH (06:21)
[2022-12-04] MEDS: POTASSIUM BICARB 20 MEQ (EFFER-K) TABLET PO SCH (06:21)
--- NOTE | 2022-12-04 06:54 | Progress Note - Surgery ---
GURVINDERMICHELE 12/04/22 0654: Subjective Date Seen by a Provider: Dec 04, 2022 Time Seen by a Provider: 06:54 Subjective/Events-last exam Pt is sleeping comfortably with BiPaP on. Pt c/o new onset of constant, sharp, 8/10 L lateral neck pain. Pt states that he thinks it may have been from slee ping on it wrong. ROM is intact and not painful, no pain with palpation. Pt denies anything making pain better or worse. Pt denies BM but has been passing flatus. Last BM on the , per nurse. Urine output 2.4cc/hr/kg over 24hrs. Repeat CXR on 12/03 was remarkable for severe fibroemphysematous change about the lung parenchyma, superimposed infiltrate/opacity right mid lung field that was perhaps minimally improved, as well as development of possible small effusions. Pt has no other complaints at this time. Pt denies CP, SOB, nausea, vomiting, abd pain, chills, and cough. Review of Systems General: No Chills, No Night Sweats HEENT: No Head Aches, No Eye Pain Pulmonary: No Dyspnea, No Cough Cardiovascular: No: Chest Pain, Edema Gastrointestinal: No: Nausea, Vomiting, Abdominal Pain Genitourinary: No Dysuria, No Hematuria Musculoskeletal: neck pain (8/10 sharp,constant, states from sleeping); No: shoulder pain Neurological: No: Weakness, Numbness Objective Exam Vital Signs Date Time Temp Pulse Resp B/P (MAP) Pulse Ox O2 Delivery O2 Flow Rate FiO2 12/04/22 06:16 69 106/68 12/04/22 06:00 60 19 112/72 (91) 95 NIV Bilevel 40.00 12/04/22 05:00 69 22 106/68 (82) 90 NIV Bilevel 40.00 12/04/22 04:00 96 NIV Bilevel 40 12/04/22 04:00 65 20 114/69 (84) 94 NIV Bilevel 40.00 12/04/22 03:03 60 22 95 40.00 12/04/22 03:00 63 23 121/77 (100) 95 NIV Bilevel 40.00 12/04/22 02:00 57 21 125/91 (102) 95 NIV Bilevel 40.00 12/04/22 01:00 60 19 121/79 (93) 95 NIV Bilevel 40.00 12/04/22 01:00 60 12/04/22 00:00 59 20 122/78 (93) 95 NIV Bilevel 40.00 12/03/22 23:59 94 NIV Bilevel 40 12/03/22 23:00 67 23 116/69 (85) 94 NIV Bilevel 40.00 12/03/22 22:40 63 21 95 40.00 12/03/22 22:00 58 19 119/78 (98) 95 NIV Bilevel 40.00 12/03/22 21:00 57 19 118/73 (104) 95 NIV Bilevel 40.00 12/03/22 20:04 58 19 120/71 (98) 95 NIV Bilevel 40.00 12/03/22 20:00 36.3 12/03/22 20:00 95 NIV Bilevel 40 12/03/22 19:32 NIV Bilevel 40.00 12/03/22 19:04 60 119/72 (97) 94 NIV Bilevel 50.00 12/03/22 19:00 60 12/03/22 18:30 55 19 94 40.00 12/03/22 18:00 57 114/73 (87) 94 NIV Bilevel 50.00 12/03/22 17:00 70 95 NIV Bilevel 50.00 12/03/22 16:00 61 17 117/74 (88) 97 NIV Bilevel 50.00 12/03/22 16:00 97 NIV Bilevel 50 12/03/22 16:00 35.8 12/03/22 15:00 63 16 115/78 (90) 97 NIV Bilevel 50.00 12/03/22 14:51 58 15 97 40.00 12/03/22 14:00 63 118/72 (87) 97 NIV Bilevel 50.00 12/03/22 13:44 63 118/72 12/03/22 13:00 68 115/68 (84) 97 NIV Bilevel 50.00 12/03/22 13:00 70 12/03/22 12:00 97 95 NIV Bilevel 50.00 12/03/22 12:00 94 NIV Bilevel 50 12/03/22 11:00 97 127/69 (88) 93 NIV Bilevel 50.00 12/03/22 10:09 97 NIV Bilevel 50.00 12/03/22 10:01 93 16 98 50.00 12/03/22 10:00 95 130/69 (89) 99 NIV Bilevel 65.00 12/03/22 09:55 NIV Bilevel 65.00 12/03/22 09:44 102 117/76 12/03/22 09:00 108 115/55 (75) 91 Vapotherm 30.00 60.00 12/03/22 08:30 37.5 12/03/22 08:00 102 30 117/76 (90) 92 Vapotherm 30.00 60.00 12/03/22 08:00 96 Vapotherm 30.00 60 12/03/22 07:00 102 22 135/72 (93) 92 Vapotherm 30.00 60.00 12/03/22 07:00 100 I & O 12/04/22 07:00 Intake Total 1475 ml Output Total 3750 ml Balance -2275 ml Capillary Refill : Less Than 3 Seconds General Appearance: No Apparent Distress, Chronically ill, Thin HEENT: PERRL/EOMI, Moist Mucous Membranes Neck: Full Range of Motion, Non Tender, Supple; No Lymphadenopathy (L), No Lymphadenopathy (R) Respiratory: Lungs Clear, Normal Breath Sounds, No Accessory Muscle Use, No Respiratory Distress Cardiovascular: Regular Rate, Rhythm, No Gallop, No Murmur Peripheral Pulses: 2+ Dorsalis Pedis (R), 2+ Left Dors-Pedis (L) Gastrointestinal: non tender, soft, distended Extremity: No Calf Tenderness, No Pedal Edema Neurologic/Psychiatric: Alert, Oriented x3 Skin: Normal Color, Warm/Dry Lymphatic: No Adenopathy Results Lab Laboratory Tests 12/03/22 09:55: Blood Gas Puncture Site RT, Blood Gas Patient Temperature 37.5, Arterial Blood pH 7.35L, Arterial Blood Partial Pressure CO2 75*H, Arterial Blood Partial Pressure O2 179H, Arterial Blood HCO3 40H, Arterial Blood Total CO2 42.6*H, Arterial Blood Oxygen Saturation 100, Arterial Blood Base Excess 14.3H, Ace Test POSITIVE, Blood Gas Ventilator Setting NO, Blood Gas Inspired Oxygen 60% 12/04/22 03:55: White Blood Count 7.1, Red Blood Count 3.40L, Hemoglobin 8.6L, Hematocrit 28L, Mean Corpuscular Volume 81, Mean Corpuscular Hemoglobin 25, Mean Corpuscular Hemoglobin Concent 31L, Red Cell Distribution Width 17.8H, Platelet Count 408H, Mean Platelet Volume 10.1, Immature Granulocyte % (Auto) 1, Neutrophils (%) (Auto) 86H, Lymphocytes (%) (Auto) 9L, Monocytes (%) (Auto) 4, Eosinophils (%) (Auto) 0, Basophils (%) (Auto) 0, Neutrophils # (Auto) 6.1, Lymphocytes # (Auto) 0.6L, Monocytes # (Auto) 0.3, Eosinophils # (Auto) 0.0, Basophils # (Auto) 0.0, Immature Granulocyte # (Auto) 0.0, Sodium Level 139, Potassium Level 3.8, Chloride Level 97L, Carbon Dioxide Level 32, Anion Gap 10, Blood Urea Nitrogen 10, Creatinine 0.51L, Estimat Glomerular Filtration Rate 116, BUN/Creatinine Ratio 20, Glucose Level 150H, Calcium Level 9.1, Magnesium Level 2.0 Microbiology 11/29/22 Blood Culture - Preliminary, Resulted No growth Radiology Date of Exam:12/03/22 CHEST 1 VIEW, AP/PA ONLY INDICATION: Pneumonia. TECHNIQUE: Single view chest 7:28 AM. CORRELATION STUDY: 12/01/2022 FINDINGS: The heart size, mediastinal configuration and pulmonary vascularity are within normal limits. Severe fibroemphysematous change about the lung parenchyma again demonstrated. More focal opacity in the right mid lung field does persist but appears perhaps minimally improved. Small effusions do appear to have developed. IMPRESSION: 1. Severe fibroemphysematous change about the lung parenchyma. Superimposed infiltrate/opacity right mid lung field does persist but perhaps minimally improved. 2. Development of what appears to be small effusions. Dictated by: Dictated on workstation # [id number] Dict: 12/03/22 0743 Trans: 12/03/22 0910 REPLACED BY [facility] [id number] Interpreted by: SARABJIT PAN DO Electronically signed by: SARABJIT PAN DO 12/03/22 0910 Date of Exam:12/04/22 ABDOMEN/KUB 1VIEW EXAMINATION: ABDOMEN/KUB 1VIEW. INDICATION: Constipation. COMPARISON: CT abdomen/pelvis of 11/29/2022. TECHNIQUE: Supine AP view of the abdomen. FINDINGS: Nonobstructed bowel gas pattern. Gas fills nondilated loops of small bowel and colon. A small amount of stool is present throughout the colon. The stomach is mildly distended with gas. No features of free intraperitoneal air. Stable regional skeleton. Surgical clips in the left lower quadrant from prior hernia repair are again noted. IMPRESSION: 1. Nonobstructed bowel gas pattern. 2. Small burden of colonic stool. Dictated on workstation # [id number] Dict: 12/04/22 0844 Trans: 12/04/22 0847 [id number] Interpreted by: PREMA PLUMMER MD Electronically signed by: Assessment/Plan Assessment/Plan Assessment/Plan Iron Def. anemia- potentially GI bleed- Hgb 8.6 (12/04) S/P Blood transfusion - 12/01 constipation with Fecal compaction of rectal vault abdominal pain-resolved COPD Leukocytosis- resolved hypotension- resolved bacteremia- preliminary cultures suggest coag neg staph Plan: KUB ordered this morning and was remarkable for non-obstructive gas bowel pattern and a small burden of colonic stool. Enema ordered for today, continue bowel regimen continue IVF continue to monitor Hgb, transfuse <7 Continue MAT protocol and supplemental O2 Continue pain control prn SOY ANGELO DO 12/04/22 5238: Subjective Subjective/Events-last exam Patient breathing with Vapotherm, trying to wean. Still short of breath. Wanting more pain medication. Having left sided pain. Feels constipated. Denies fever sweats chills or chest pain at this time. Objective Exam General Appearance: Chronically ill, Thin HEENT: PERRL/EOMI, Moist Mucous Membranes Neck: Full Range of Motion, Non Tender Respiratory: Chest Non Tender, No Accessory Muscle Use, No Respiratory Distress Cardiovascular: Regular Rate, Rhythm, No JVD Gastrointestinal: non tender, soft, distended (minimally) Extremity: Non Tender, No Calf Tenderness Neurologic/Psychiatric: Alert, Oriented x3 Skin: Normal Color, Warm/Dry Lymphatic: No Adenopathy Assessment/Plan Assessment/Plan Assessment/Plan Iron Def. anemia- potentially GI bleed- Hgb 8.6 (12/04) S/P Blood transfusion - 12/01 constipation with Fecal impaction of rectal vault abdominal pain-left side COPD Leukocytosis- resolved hypotension- resolved bacteremia- preliminary cultures suggest coag neg staph Plan: KUB ordered this morning and was remarkable for non-obstructive gas bowel pattern and a small burden of colonic stool. Enema ordered for today, continue bowel regimen continue IVF continue to monitor Hgb, transfuse <7 Continue MAT protocol and supplemental O2 Continue pain control prn Supervisory-Addendum Brief Verification & Attestation Participated in pt care: history, MDM, physical Personally performed: exam, history, MDM, supervision of care Care discussed with: Medical Student Procedures: n/a Results interpretation: Verified all documentation Verification and Attestation of Medical Student E/M Service A medical student performed and documented this service in my presence. I reviewed and verified all information documented by the medical student and made modifications to such information, when appropriate. I personally performed the physical exam and medical decision making. Soy Angelo Dec 04, 2022,18:58 MICHELE HOLLNIS Dec 04, 2022 06:54 SOY ANGELO DO Dec 04, 2022 18:58
[2022-12-04] MEDS: IRON SUCROSE 200 MG/10 ML (VENOFER) VIAL IV SCH (08:04)
[2022-12-04] MEDS: PANTOPRAZOLE 40 MG (PROTONIX) VIAL IV SCH (08:04)
[2022-12-04] MEDS: SENNOSIDES 8.6 MG (SENOKOT) TAB PO SCH ×2 (08:04→21:06)
[2022-12-04] MEDS: DIGOXIN 0.25 MG (LANOXIN) TAB PO SCH (08:04)
[2022-12-04] MEDS: DULoxetine 30 MG (CYMBALTA) CAP PO SCH (08:05)
[2022-12-04] MEDS: FOLIC ACID 1 MG TAB PO SCH (08:05)
[2022-12-04] MEDS: dilTIAZem120 MG (CARDIZEM CD) CAP PO SCH (08:05)
[2022-12-04] MEDS: DOCUSATE SODIUM 100 MG (COLACE) CAP PO SCH ×2 (08:05→21:06)
[2022-12-04] MEDS: GABAPENTIN 400 MG (NEURONTIN) CAP PO SCH ×2 (08:05→21:06)
[2022-12-04] MEDS ORDERED: FLEET ENEMA ADULT 1 EA BTL PR PRN (08:15)
--- NOTE | 2022-12-04 08:47 | Diagnostic Imaging Report ---
EXAMINATION: ABDOMEN/KUB 1VIEW. INDICATION: Constipation. COMPARISON: CT abdomen/pelvis of 11/29/2022. TECHNIQUE: Supine AP view of the abdomen. FINDINGS: Nonobstructed bowel gas pattern. Gas fills nondilated loops of small bowel and colon. A small amount of stool is present throughout the colon. The stomach is mildly distended with gas. No features of free intraperitoneal air. Stable regional skeleton. Surgical clips in the left lower quadrant from prior hernia repair are again noted. IMPRESSION: 1. Nonobstructed bowel gas pattern. 2. Small burden of colonic stool. Dictated by: Dictated on workstation # [id number]
--- NOTE | 2022-12-04 09:19 | Progress Note - Hospitalist ---
Subjective HPI/CC On Admission Date Seen by Provider: Dec 04, 2022 Moshe Soto (Willy) is a 62 year old male with PMH HTN, HLD, AFib, PAD, CAD, COPD, who presented with shortness of breath. He has had a cough. He has had chest pain. He also reports abdominal pain. He has been nauseous. He denies vomiting. He denies diarrhea. He denies fevers and chills. He is on 4 L continous oxygen at baseline. Subjective/Events-last exam Pt reports persistent pain. Has difficulty stating where but points to ribs on left side. Asks for a strong type of pain medicine than what we are giving him. Informed him that Dilaudid is one of the strongest pain medicines there is and his risk for oversedation with pain medication given his hypercapnia. He also complains of constipation. Objective Exam Vital Signs Vital Signs Date Time Temp Pulse Resp B/P (MAP) Pulse Ox O2 Delivery O2 Flow Rate FiO2 12/04/22 09:00 80 23 103/53 (70) 100 NIV Bilevel 40.00 12/04/22 07:41 36.7 12/04/22 04:00 40 Capillary Refill : Less Than 3 Seconds General Appearance: No Apparent Distress, Chronically ill, Thin Respiratory: No Accessory Muscle Use; No Crackles; Decreased Breath Sounds (bases); No Wheezing Cardiovascular: Regular Rate, Rhythm, No Murmur Gastrointestinal: Normal Bowel Sounds, Soft Neurologic/Psychiatric: Alert, Oriented x3 Results/Procedures Lab Laboratory Tests 12/04/22 03:55 Patient resulted labs reviewed. Imaging: Reviewed Imaging Report Assessment/Plan Assessment and Plan Assess & Plan/Chief Complaint Severe sepsis Pneumonia Acute on chronic respiratory failure with hypoxia and hypercapnia Chest pain CXR with RML PNA ABG with acute hypercapnia Vapotherm with prn and HS BiPAP Rocephin and Azithromycin Steroids MAT protocol TeleICU following IS negative 1250mL yesterday Iron deficiency anemia Hgb up to 8.6 this AM s/p 1 unit PRBC Iron studies consistent with iron deficiency Occult blood negative Continue Xarelto B12/folate low normal Continue folic acid Continue Venofer Surgery following Obstipation Resolved Continue bowel regimen Unsure when he last had BM, encouraged prns Colace and Senna scheduled HTN Hold home meds, BP low HLD AFib PAD CAD COPD Continue home meds as able DVT ppx: Xarelto Critical Care Critically Ill Patient BLANE JAIN MD Dec 04, 2022 09:19
--- NOTE | 2022-12-04 09:52 | Tele-ICU Progress Note ---
Subjective Date Seen by a Provider: Dec 04, 2022 Time Seen by a Provider: 09:52 Subjective/Events-last exam (Tele-ICU Physician , Progress Note ) Service provided via interactive audio and video telecommunications E-CARE system to a patient admitted to ICU bed in [facility]. Patient is seen today due to persistent need of ICU care Available chart/ vitals / labs / Images reviewed Video assessment done using teleICU camera, rest of exam as per RN Discussed with RN Events overnight : Afebrile hemodynamically stable Respiratory - I/O = neg Drips: Pressors- no Hospital course: (11/29) 62M Admitted to floor for sepsis PNA/COPD, constipation, Anemia, possible bactermia (12/01) TX to ICU: holding xarelto ,s/p 1 unit PRBC 12/01 Hypercapnia-Bipap (12/02) Xarelto resumed (12/03) - VT 30 L 60 %, BIPAP whole night , 40 % A/P Acute hypoxixc resp failure - VT 30 L 60 % - BIPAP whole night , 40 % Chronic resp hypoxi failure with severe emphysema on CT - on home o2 ? AECOPD - steroids IV 125 q 8 - nebs PNA, RIL - sputum cx ? 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 chronic Constipation - as per Sx - CL 12/04 - Nonobstructed bowel gas pattern. Lines : periph lines , (Central Line Necessity Reviewed) Jackson: + OG: Nutrition: po Analgesia: Anxiety/ delirium VTE Prophylaxis: xarelto Stress Ulcer Prophylaxis: ppi Plans in collaboration with bedside consultants and IM MDs. Discussed with RN to reach out if any questions or concerns Case and care daily discussed on multidisciplinary rounds ( RN, PharmD, Analytical Research Chemist , Respiratory Therapy, fat pressroom worker ) A total of 32 minutes of critical care time was devoted to this patient today, required to treat and/or prevent further deterioration of critical care condition ( as above ) . Sepsis Event Evaluation Height, Weight, BMI Height: '" Weight: lbs. oz. kg; 16.42 BMI Method: Exam Exam Patient acknowledged, consented, and participated in this virtual visit which was conducted using real time audio/video Vital Signs Date Time Temp Pulse Resp B/P (MAP) Pulse Ox O2 Delivery O2 Flow Rate FiO2 12/04/22 09:00 80 23 103/53 (70) 100 NIV Bilevel 40.00 12/04/22 08:00 86 26 107/63 (78) 96 NIV Bilevel 40.00 12/04/22 07:41 36.7 12/04/22 07:00 79 12/04/22 07:00 67 20 117/76 (90) 94 NIV Bilevel 40.00 12/04/22 06:16 69 106/68 12/04/22 06:00 60 19 112/72 (91) 95 NIV Bilevel 40.00 12/04/22 05:00 69 22 106/68 (82) 90 NIV Bilevel 40.00 12/04/22 04:00 96 NIV Bilevel 40 12/04/22 04:00 65 20 114/69 (84) 94 NIV Bilevel 40.00 12/04/22 03:03 60 22 95 40.00 12/04/22 03:00 63 23 121/77 (100) 95 NIV Bilevel 40.00 12/04/22 02:00 57 21 125/91 (102) 95 NIV Bilevel 40.00 12/04/22 01:00 60 19 121/79 (93) 95 NIV Bilevel 40.00 12/04/22 01:00 60 12/04/22 00:00 59 20 122/78 (93) 95 NIV Bilevel 40.00 12/03/22 23:59 94 NIV Bilevel 40 12/03/22 23:00 67 23 116/69 (85) 94 NIV Bilevel 40.00 12/03/22 22:40 63 21 95 40.00 12/03/22 22:00 58 19 119/78 (98) 95 NIV Bilevel 40.00 12/03/22 21:00 57 19 118/73 (104) 95 NIV Bilevel 40.00 12/03/22 20:04 58 19 120/71 (98) 95 NIV Bilevel 40.00 12/03/22 20:00 36.3 12/03/22 20:00 95 NIV Bilevel 40 12/03/22 19:32 NIV Bilevel 40.00 12/03/22 19:04 60 119/72 (97) 94 NIV Bilevel 50.00 12/03/22 19:00 60 12/03/22 18:30 55 19 94 40.00 12/03/22 18:00 57 114/73 (87) 94 NIV Bilevel 50.00 12/03/22 17:00 70 95 NIV Bilevel 50.00 12/03/22 16:00 61 17 117/74 (88) 97 NIV Bilevel 50.00 12/03/22 16:00 97 NIV Bilevel 50 12/03/22 16:00 35.8 12/03/22 15:00 63 16 115/78 (90) 97 NIV Bilevel 50.00 12/03/22 14:51 58 15 97 40.00 12/03/22 14:00 63 118/72 (87) 97 NIV Bilevel 50.00 12/03/22 13:44 63 118/72 12/03/22 13:00 68 115/68 (84) 97 NIV Bilevel 50.00 12/03/22 13:00 70 12/03/22 12:00 97 95 NIV Bilevel 50.00 12/03/22 12:00 94 NIV Bilevel 50 12/03/22 11:00 97 127/69 (88) 93 NIV Bilevel 50.00 12/03/22 10:09 97 NIV Bilevel 50.00 12/03/22 10:01 93 16 98 50.00 12/03/22 10:00 95 130/69 (89) 99 NIV Bilevel 65.00 12/03/22 09:55 NIV Bilevel 65.00 I & O 12/04/22 07:00 Intake Total 1725 ml Output Total 3750 ml Balance -2025 ml Height & Weight Height: '" Weight: lbs. oz. kg; 16.42 BMI Method: General Appearance: No Apparent Distress, Chronically ill, Thin HEENT: PERRL/EOMI, Moist Mucous Membranes Neck: Full Range of Motion, Non Tender, Supple; No Lymphadenopathy (L), No Lymphadenopathy (R) Respiratory: No Accessory Muscle Use; No Crackles; Decreased Breath Sounds (bases); No Wheezing Cardiovascular: Regular Rate, Rhythm, No Murmur Capillary Refill: Less Than 3 Seconds Peripheral Pulses: 2+ Dorsalis Pedis (R), 2+ Left Dors-Pedis (L) Gastrointestinal: non tender, soft, distended Extremity: No Calf Tenderness, No Pedal Edema Neurologic/Psychiatric: Alert, Oriented x3 Skin: Normal Color, Warm/Dry Lymphatic: No Adenopathy Results Lab Laboratory Tests 12/03/22 03:35 12/04/22 03:55 Assessment/Plan Assessment/Plan 1 YADY VIGIL MD Dec 04, 2022 09:52
[2022-12-04] MEDS: HYDROmorphone 2 MG/ML VIAL (DILAUDID) IV PRN ×5 (11:56→23:30)
[2022-12-04] MEDS: methylPREDNISolone 40 MG/ML (Solu-MEDROL) VIAL IVP SCH ×2 (14:18→22:05)
[2022-12-04] MEDS: LACTULOSE SYRUP 10GM/15ML (ENULOSE) 30ML UDC PO PRN (15:51)
[2022-12-04] MEDS: RIVAROXABAN 20 MG TABLET (XARELTO) PO SCH (17:51)
[2022-12-05 01:16] VITALS: BP 103/53
[2022-12-05] MEDS: HYDROmorphone 2 MG/ML VIAL (DILAUDID) IV PRN ×5 (02:54→19:45)
[2022-12-05] MEDS: RT-ALBUTEROL/IPRATROPIUM 3 ML (DUONEB) VIAL INH SCH ×7 (03:05→23:20)
[2022-12-05 05:28] LABS: BASOPHILS % (AUTO) 0 % (0-10); EOSINOPHILS % (AUTO) 0 % (0-10); HEMATOCRIT 30 % (40-54); HEMOGLOBIN 9.2 g/dL (13.3-17.7); LYMPHOCYTES # (AUTO) 0.5 10^3/uL (1.0-4.0); LYMPHOCYTES % (AUTO) 6 % (12-44); MEAN CORPUSCULAR HEMOGLOBIN 25 pg (25-34); MEAN CORPUSCULAR HGB CONC 31 g/dL (32-36); MEAN CORPUSCULAR VOLUME 81 fL (80-99); MEAN PLATELET VOLUME 9.9 fL (9.0-12.2); MONOCYTES # (AUTO) 0.5 10^3/uL (0.0-1.0); MONOCYTES % (AUTO) 5 % (0-12); NEUTROPHILS # (AUTO) 7.5 10^3/uL (1.8-7.8); NEUTROPHILS % (AUTO) 87 % (42-75); PLATELET COUNT 511 10^3/uL (130-400); WHITE BLOOD COUNT 8.7 10^3/uL (4.3-11.0)
[2022-12-05 05:48] LABS: CREATININE SERUM 0.56 MG/DL (0.60-1.30); MAGNESIUM 2.1 MG/DL (1.6-2.4)
[2022-12-05] MEDS: POTASSIUM BICARB 20 MEQ (EFFER-K) TABLET PO SCH (06:15)
[2022-12-05] MEDS: POTASSIUM CL 10MEQ/50ML IVPB 50 ML IV SCH (06:15)
[2022-12-05] MEDS: MAGNESIUM 1 GM/100 ML IVPB 100 ML IV SCH (06:15)
[2022-12-05] MEDS: KCL 20 MEQ TAB (K-DUR) PO SCH (06:15)
[2022-12-05] MEDS: methylPREDNISolone 40 MG/ML (Solu-MEDROL) VIAL IVP SCH ×3 (06:22→21:56)
[2022-12-05 06:37] LABS: ANISOCYTOSIS MODERATE; HYPOCHROMASIA MODERATE; LYMPHOCYTES % (MANUAL) 4 %; MONOCYTES % (MANUAL) 5 %; NEUTROPHILS % (MANUAL) 89 %; POLYCHROMASIA SLIGHT; REACTIVE LYMPHOCYTES 2 %
--- NOTE | 2022-12-05 06:44 | Progress Note - Surgery ---
ELVA COX 12/05/22 0644: Subjective Date Seen by a Provider: Dec 05, 2022 Time Seen by a Provider: 06:40 Subjective/Events-last exam Moshe Soto was seen at bedside this morning. He reports chest pain worse on the L when he coughs and L sided abdominal pain. Cough is productive of brown colored sputum reported by patient. He rates the abdominal pain 10/10 on his L side, reports this has been constant over his hospital stay. No BM but is passing flatus. Feels like his abdomen is slightly distended and hard. On vapotherm this morning. Per RN patient did not require bipap overnight. Did not receive enema yesterday, will get one today. Denies fevers or chills overnight. Abdominal x ray on 12/04 showed nonobstructed bowel gas pattern with small stool burden present in colon. Review of Systems General: No Chills, No Night Sweats HEENT: No Head Aches, No Visual Changes Pulmonary: Dyspnea, Cough Cardiovascular: Chest Pain (L side when coughs, feels like soreness); No: Lt Headedness Gastrointestinal: Nausea, Abdominal Pain, Constipation; No: Vomiting Genitourinary: No Dysuria, No Hematuria Musculoskeletal: No: back pain, leg pain Neurological: No: Change in speech, Confusion Objective Exam Vital Signs Date Time Temp Pulse Resp B/P (MAP) Pulse Ox O2 Delivery O2 Flow Rate FiO2 12/05/22 06:00 80 12 132/78 (111) 92 NIV Bilevel 40.00 12/05/22 05:00 105 18 118/79 (90) NIV Bilevel 40.00 12/05/22 04:04 36.9 12/05/22 04:00 93 Vapotherm 30.00 50 12/05/22 04:00 90 15 121/74 (99) 91 NIV Bilevel 40.00 12/05/22 03:06 93 Vapotherm 30.00 55 12/05/22 03:00 80 11 133/73 (97) 93 NIV Bilevel 40.00 12/05/22 02:00 82 15 134/69 (90) 94 NIV Bilevel 40.00 12/05/22 01:16 36.7 80 96 40 12/05/22 01:00 84 12/05/22 01:00 84 12 123/74 (94) 92 NIV Bilevel 40.00 12/05/22 00:06 37.0 12/05/22 00:00 88 12 117/62 (83) 91 NIV Bilevel 40.00 12/04/22 23:59 93 Vapotherm 30.00 50 12/04/22 23:03 94 Vapotherm 30.00 55 12/04/22 23:00 89 17 128/76 (96) 94 NIV Bilevel 40.00 12/04/22 22:00 87 21 125/82 (108) 94 NIV Bilevel 40.00 12/04/22 21:00 89 37 121/71 (96) 94 NIV Bilevel 40.00 12/04/22 20:37 37.2 12/04/22 20:00 93 Vapotherm 30.00 50 12/04/22 20:00 85 17 125/74 (97) 94 NIV Bilevel 40.00 12/04/22 19:09 37.5 12/04/22 19:00 98 19 128/74 (95) 94 NIV Bilevel 40.00 12/04/22 19:00 98 12/04/22 18:49 Vapotherm 30.00 55 12/04/22 18:00 101 29 134/81 (98) 92 NIV Bilevel 40.00 12/04/22 17:41 37.2 12/04/22 17:00 89 18 106/65 (79) 100 NIV Bilevel 40.00 12/04/22 16:00 92 Vapotherm 50 12/04/22 16:00 87 16 119/72 (88) 94 NIV Bilevel 40.00 12/04/22 15:12 37.5 12/04/22 15:00 93 18 115/70 (85) 94 NIV Bilevel 40.00 12/04/22 14:45 Vapotherm 30.00 50 12/04/22 14:00 96 19 100/63 (75) 93 NIV Bilevel 40.00 12/04/22 13:00 87 15 114/71 (85) 95 NIV Bilevel 40.00 12/04/22 12:53 86 12/04/22 12:00 92 Vapotherm 50 12/04/22 12:00 102 21 118/64 (82) 92 NIV Bilevel 40.00 12/04/22 11:42 36.9 12/04/22 11:00 89 22 108/66 (80) 93 NIV Bilevel 40.00 12/04/22 10:38 Vapotherm 30.00 45 12/04/22 10:00 84 23 110/63 (79) 98 NIV Bilevel 40.00 12/04/22 09:00 80 23 103/53 (70) 100 NIV Bilevel 40.00 12/04/22 08:00 98 Vapotherm 65 12/04/22 08:00 86 26 107/63 (78) 96 NIV Bilevel 40.00 12/04/22 07:41 36.7 12/04/22 07:00 Vapotherm 30.00 65 12/04/22 07:00 79 12/04/22 07:00 67 20 117/76 (90) 94 NIV Bilevel 40.00 I & O 12/05/22 07:00 Intake Total 1900 ml Output Total 2350 ml Balance -450 ml Capillary Refill : Less Than 3 Seconds General Appearance: Chronically ill, Thin HEENT: PERRL/EOMI, Moist Mucous Membranes Neck: Full Range of Motion, Non Tender, Supple Respiratory: No Accessory Muscle Use, Other (coarse sounds present on inhalation and exhalation bilaterally. Possibly worse on R) Cardiovascular: Regular Rate, Rhythm, Normal Peripheral Pulses Peripheral Pulses: 2+ Dorsalis Pedis (R), 2+ Left Dors-Pedis (L) Gastrointestinal: soft, distended (minimally), tenderness (L side) Extremity: Non Tender, No Pedal Edema Neurologic/Psychiatric: Alert, Oriented x3 Skin: Normal Color, Warm/Dry Lymphatic: No Adenopathy Results Lab Laboratory Tests 12/05/22 03:56: White Blood Count 8.7, Red Blood Count 3.67L, Hemoglobin 9.2L, Hematocrit 30L, Mean Corpuscular Volume 81, Mean Corpuscular Hemoglobin 25, Mean Corpuscular Hemoglobin Concent 31L, Red Cell Distribution Width 18.6H, Platelet Count 511H, Mean Platelet Volume 9.9, Immature Granulocyte % (Auto) 2, Neutrophils (%) (Au to) 87H, Lymphocytes (%) (Auto) 6L, Monocytes (%) (Auto) 5, Eosinophils (%) (Auto) 0, Basophils (%) (Auto) 0, Neutrophils # (Auto) 7.5, Lymphocytes # (Auto) 0.5L, Monocytes # (Auto) 0.5, Eosinophils # (Auto) 0.0, Basophils # (Auto) 0.0, Immature Granulocyte # (Auto) 0.2H, Neutrophils % (Manual) 89, Lymphocytes % (Manual) 4, Monocytes % (Manual) 5, Reactive Lymphocytes 2, Polychromasia SLIGHT, Hypochromasia MODERATE, Anisocytosis MODERATE, Sodium Level 140, Potassium Level 4.0, Chloride Level 98, Carbon Dioxide Level 32, Anion Gap 10, Blood Urea Nitrogen 17, Creatinine 0.56L, Estimat Glomerular Filtration Rate 113, BUN/Creatinine Ratio 30, Glucose Level 149H, Calcium Level 9.0, Magnesium Level 2.1 Microbiology 11/29/22 Blood Culture - Final, Complete No growth Radiology [facility], [place] NAME: MOSHE SOTO [facility] REC#: [id number] PT STATUS: ADM IN : 1960 PHYSICIAN: SOY ANGELO DO ADMIT DATE: 11/29/22/ICU Signed Date of Exam:12/04/22 ABDOMEN/KUB 1VIEW EXAMINATION: ABDOMEN/KUB 1VIEW. INDICATION: Constipation. COMPARISON: CT abdomen/pelvis of 11/29/2022. TECHNIQUE: Supine AP view of the abdomen. FINDINGS: Nonobstructed bowel gas pattern. Gas fills nondilated loops of small bowel and colon. A small amount of stool is present throughout the colon. The stomach is mildly distended with gas. No features of free intraperitoneal air. Stable regional skeleton. Surgical clips in the left lower quadrant from prior hernia repair are again noted. IMPRESSION: 1. Nonobstructed bowel gas pattern. 2. Small burden of colonic stool. Dictated by: Dictated on workstation # [id number] Dict: 12/04/22 0844 Trans: 12/04/22 1004 [id number] Interpreted by: PREMA PLUMMER MD Electronically signed by: PREMA PLUMMER MD 12/04/22 1004 Assessment/Plan Assessment/Plan Assessment/Plan Iron Def. anemia- potentially GI bleed- Hgb 9.2 (12/05) S/P Blood transfusion - 12/01, one unit of LRRBCs constipation with Fecal impaction of rectal vault abdominal pain-left side COPD Leukocytosis- resolved hypotension- resolved Pneumonia Plan: KUB 12/04 was remarkable for non-obstructive gas bowel pattern and a small burden of colonic stool. Enema ordered, did not receive yesterday, will get enema today, continue bowel regimen continue to monitor Hgb, transfuse <7. Trending up Continue nebulized treatments and solumedrol for COPD exacerbation. Requiring vapotherm, continue to wean as tolerated Continue pain control prn. Currently on hydromorphone and oxycodone. SOY ANGELO DO 12/05/221908: Subjective Subjective/Events-last exam Rudolph had bm and abdominal pain improved. Tolerating diet. Overall feeling better. Breathing same to slightly better he states. No new concerns. Denies n/v fever sweats chills or chest pain at this time. Objective Exam General Appearance: Chronically ill, Thin HEENT: PERRL/EOMI, Moist Mucous Membranes Neck: Non Tender, Supple Respiratory: Chest Non Tender, No Accessory Muscle Use, Other (coarse sounds present on inhalation and exhalation bilaterally) Cardiovascular: Regular Rate, Rhythm, No JVD Gastrointestinal: non tender, soft, distended (minimally); No tenderness (L side) Extremity: Normal Inspection, Non Tender Neurologic/Psychiatric: Alert, Oriented x3 Skin: Normal Color, Warm/Dry Lymphatic: No Adenopathy Assessment/Plan Assessment/Plan Assessment/Plan Iron Def. anemia- potentially GI bleed- Hgb 9.2 (12/05) S/P Blood transfusion - 12/01, one unit of LRRBCs constipation with Fecal impaction of rectal vault abdominal pain-left side COPD Leukocytosis- resolved hypotension- resolved Pneumonia Plan: KUB 12/04 was remarkable for non-obstructive gas bowel pattern and a small burden of colonic stool. Enema ordered, did not receive yesterday, will get enema today, continue bowel regimen had bowel movement and feeling better now, continue on bowel regimen continue to monitor Hgb, transfuse <7. Trending up Continue nebulized treatments and solumedrol for COPD exacerbation. Requiring vapotherm, continue to wean as tolerated Continue pain control prn. pain control Supervisory-Addendum Brief Verification & Attestation Participated in pt care: history, MDM, physical Personally performed: exam, history, MDM, supervision of care Care discussed with: Medical Student Procedures: n/a Results interpretation: Verified all documentation Verification and Attestation of Medical Student E/M Service A medical student performed and documented this service in my presence. I reviewed and verified all information documented by the medical student and made modifications to such information, when appropriate. I personally performed the physical exam and medical decision making. Soy Angelo, Dec 05, 2022,19:09 ELVA COX Dec 05, 2022 06:44 SOY ANGELO DO Dec 05, 2022 19:09
[2022-12-05] MEDS: GABAPENTIN 400 MG (NEURONTIN) CAP PO SCH ×2 (07:41→21:56)
[2022-12-05] MEDS: dilTIAZem120 MG (CARDIZEM CD) CAP PO SCH (07:41)
[2022-12-05] MEDS: DIGOXIN 0.25 MG (LANOXIN) TAB PO SCH (07:42)
[2022-12-05] MEDS: SENNOSIDES 8.6 MG (SENOKOT) TAB PO SCH ×2 (07:42→23:32)
[2022-12-05] MEDS: PANTOPRAZOLE 40 MG (PROTONIX) VIAL IV SCH (07:42)
[2022-12-05] MEDS: DULoxetine 30 MG (CYMBALTA) CAP PO SCH (07:42)
[2022-12-05] MEDS: FOLIC ACID 1 MG TAB PO SCH (07:42)
[2022-12-05] MEDS: DOCUSATE SODIUM 100 MG (COLACE) CAP PO SCH ×2 (07:42→23:32)
--- NOTE | 2022-12-05 10:09 | Diagnostic Imaging Report ---
INDICATION: Hypoxia Frontal chest obtained at 10:07 a.m. and compared to 12/03/2022. Heart and mediastinal silhouette are normal in appearance. There is severe COPD change with extensive bullous disease and chronic interstitial prominence. There is no definite new infiltrate or pneumothorax or pleural fluid. IMPRESSION: Severe COPD changes and chronic fibrotic changes with no definite new infiltrate or pleural fluid. Dictated by: Dictated on workstation # [id number]
--- NOTE | 2022-12-05 10:19 | Tele-ICU Progress Note ---
Subjective Date Seen by a Provider: Dec 05, 2022 Time Seen by a Provider: 10:19 Subjective/Events-last exam (Tele-ICU Physician , Progress Note ) Service provided via interactive audio and video telecommunications E-CARE system to a patient admitted to ICU bed in [facility]. Patient is seen today due to persistent need of ICU care Available chart/ vitals / labs / Images reviewed Video assessment done using teleICU camera, rest of exam as per RN Discussed with RN Events overnight : Afebrile hemodynamically stable Respiratory - I/O = neg Drips: Pressors- no Hospital course: (11/29) 62M Admitted to floor for sepsis PNA/COPD, constipation, Anemia, possible bactermia (12/01) TX to ICU: holding xarelto ,s/p 1 unit PRBC 12/01 Hypercapnia-Bipap (12/02) Xarelto resumed (12/03) - VT 30 L 60 %, BIPAP whole night , 40 % 12/05- VT 30 L 55 %, not on BIPAP at night A/P Acute hypoxic resp failure - VT 30 L 55 % - not on BIPAP last night - CPM with NIPPV , steroids , repeat cxr Chronic resp hypoxic failure with severe emphysema on CT - on home o2 ? AECOPD - steroids IV 80 q 8 - to cont today - nebs PNA, RIL - sputum cx ? 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 chronic Constipation - as per Sx - CL 12/04 - Nonobstructed bowel gas pattern. Lines : periph lines , (Central Line Necessity Reviewed) Jackson: + OG: Nutrition: po Analgesia: Anxiety/ delirium VTE Prophylaxis: xarelto Stress Ulcer Prophylaxis: ppi Plans in collaboration with bedside consultants and IM MDs. Discussed with RN to reach out if any questions or concerns Case and care daily discussed on multidisciplinary rounds ( RN, PharmD, Roll Hand , Respiratory Therapy, woolen mill utility worker ) A total of 32 minutes of critical care time was devoted to this patient today, required to treat and/or prevent further deterioration of critical care condition ( as above ) . Sepsis Event Evaluation Height, Weight, BMI Height: '" Weight: lbs. oz. kg; 16.42 BMI Method: Exam Exam Patient acknowledged, consented, and participated in this virtual visit which wa s conducted using real time audio/video Vital Signs Date Time Temp Pulse Resp B/P (MAP) Pulse Ox O2 Delivery O2 Flow Rate FiO2 12/05/22 09:00 93 12 137/76 (96) 93 NIV Bilevel 40.00 12/05/22 08:00 97 Vapotherm 100 12/05/22 08:00 101 19 117/86 (96) 97 NIV Bilevel 40.00 12/05/22 07:10 77 12/05/22 07:00 77 10 132/70 (90) 92 NIV Bilevel 40.00 12/05/22 06:00 80 12 132/78 (111) 92 NIV Bilevel 40.00 12/05/22 05:00 105 18 118/79 (90) NIV Bilevel 40.00 12/05/22 04:04 36.9 12/05/22 04:00 93 Vapotherm 30.00 50 12/05/22 04:00 90 15 121/74 (99) 91 NIV Bilevel 40.00 12/05/22 03:06 93 Vapotherm 30.00 55 12/05/22 03:00 80 11 133/73 (97) 93 NIV Bilevel 40.00 12/05/22 02:00 82 15 134/69 (90) 94 NIV Bilevel 40.00 12/05/22 01:16 36.7 80 96 40 12/05/22 01:00 84 12/05/22 01:00 84 12 123/74 (94) 92 NIV Bilevel 40.00 12/05/22 00:06 37.0 12/05/22 00:00 88 12 117/62 (83) 91 NIV Bilevel 40.00 12/04/22 23:59 93 Vapotherm 30.00 50 12/04/22 23:03 94 Vapotherm 30.00 55 12/04/22 23:00 89 17 128/76 (96) 94 NIV Bilevel 40.00 12/04/22 22:00 87 21 125/82 (108) 94 NIV Bilevel 40.00 12/04/22 21:00 89 37 121/71 (96) 94 NIV Bilevel 40.00 12/04/22 20:37 37.2 12/04/22 20:00 93 Vapotherm 30.00 50 12/04/22 20:00 85 17 125/74 (97) 94 NIV Bilevel 40.00 12/04/22 19:09 37.5 12/04/22 19:00 98 19 128/74 (95) 94 NIV Bilevel 40.00 12/04/22 19:00 98 12/04/22 18:49 Vapotherm 30.00 55 12/04/22 18:00 101 29 134/81 (98) 92 NIV Bilevel 40.00 12/04/22 17:41 37.2 12/04/22 17:00 89 18 106/65 (79) 100 NIV Bilevel 40.00 12/04/22 16:00 92 Vapotherm 50 12/04/22 16:00 87 16 119/72 (88) 94 NIV Bilevel 40.00 12/04/22 15:12 37.5 12/04/22 15:00 93 18 115/70 (85) 94 NIV Bilevel 40.00 12/04/22 14:45 Vapotherm 30.00 50 12/04/22 14:00 96 19 100/63 (75) 93 NIV Bilevel 40.00 12/04/22 13:00 87 15 114/71 (85) 95 NIV Bilevel 40.00 12/04/22 12:53 86 12/04/22 12:00 92 Vapotherm 50 12/04/22 12:00 102 21 118/64 (82) 92 NIV Bilevel 40.00 12/04/22 11:42 36.9 12/04/22 11:00 89 22 108/66 (80) 93 NIV Bilevel 40.00 12/04/22 10:38 Vapotherm 30.00 45 I & O 12/05/22 07:00 Intake Total 1900 ml Output Total 2350 ml Balance -450 ml Height & Weight Height: '" Weight: lbs. oz. kg; 16.42 BMI Method: General Appearance: Chronically ill, Thin HEENT: PERRL/EOMI, Moist Mucous Membranes Neck: Full Range of Motion, Non Tender, Supple Respiratory: No Accessory Muscle Use, Other (coarse sounds present on inhalation and exhalation bilaterally. Possibly worse on R) Cardiovascular: Regular Rate, Rhythm, Normal Peripheral Pulses Capillary Refill: Less Than 3 Seconds Peripheral Pulses: 2+ Dorsalis Pedis (R), 2+ Left Dors-Pedis (L) Gastrointestinal: soft, distended (minimally), tenderness (L side) Extremity: Non Tender, No Pedal Edema Neurologic/Psychiatric: Alert, Oriented x3 Skin: Normal Color, Warm/Dry Lymphatic: No Adenopathy Results Lab Laboratory Tests 12/04/22 03:55 12/05/22 03:56 Assessment/Plan Assessment/Plan 1 YADY VIGIL MD Dec 05, 2022 10:19
--- NOTE | 2022-12-05 11:01 | Progress Note - Hospitalist ---
Subjective HPI/CC On Admission Date Seen by Provider: Dec 05, 2022 Moshe Soto (Willy) is a 62 year old male with PMH HTN, HLD, AFib, PAD, CAD, COPD, who presented with shortness of breath. He has had a cough. He has had chest pain. He also reports abdominal pain. He has been nauseous. He denies vomiting. He denies diarrhea. He denies fevers and chills. He is on 4 L continous oxygen at baseline. Subjective/Events-last exam Pt reports doing better today. Denies any chest pain to me. RN expresses concern about previous EKG. Reviewed EKG from weekend and shows possible old CO but more recent dose not. Objective Exam Vital Signs Vital Signs Date Time Temp Pulse Resp B/P (MAP) Pulse Ox O2 Delivery O2 Flow Rate FiO2 12/05/22 10:43 93 Vapotherm 30.00 65 12/05/22 09:00 93 12 137/76 (96) 12/05/22 04:04 36.9 Capillary Refill : Less Than 3 Seconds General Appearance: No Apparent Distress, Chronically ill, Thin Respiratory: Lungs Clear, Other (on vapotherm) Cardiovascular: Regular Rate, Rhythm, No Murmur Gastrointestinal: Non Tender, Soft Neurologic/Psychiatric: Alert, Oriented x3 Results/Procedures Lab Laboratory Tests 12/05/22 03:56 Patient resulted labs reviewed. Imaging: Reviewed Imaging Report Assessment/Plan Assessment and Plan Assess & Plan/Chief Complaint Severe sepsis Pneumonia Acute on chronic respiratory failure with hypoxia and hypercapnia Chest pain CXR with RML PNA Vapotherm with prn and HS BiPAP Rocephin and Azithromycin Steroids MAT protocol TeleICU following IS negative 1475mL yesterday Reviewed most recent EKG and no ST elevation or equivalent- will check troponin just to be cautious Iron deficiency anemia Hgb up to 9.2 this AM s/p 1 unit PRBC Iron studies consistent with iron deficiency Occult blood negative Continue Xarelto B12/folate low normal Continue folic acid Continue Venofer Surgery following Obstipation Resolved Continue bowel regimen BM this AM Colace and Senna scheduled HTN Hold home meds, BP low HLD AFib PAD CAD COPD Continue home meds as able DVT ppx: Xarelto Critical Care Critically Ill Patient BLANE JAIN MD Dec 05, 2022 11:01
--- NOTE | 2022-12-05 14:09 | Physical Therapy Evaluation ---
PT Evaluation-General Medical Diagnosis Admission Date Nov 29, 2022 at 17:20 Medical Diagnosis: Shortness of breath, cough, chest pain, abdominal pain, nauseous Onset Date: Nov 29, 2022 Therapy Diagnosis Therapy Diagnosis: Gait deficit, strength deficit Precautions Precautions/Isolations: Fall Prevention, Standard Precautions Weight Bear Status Right Lower Extremity: Right Full Weight Bearing Left Lower Extremity: Left Full Weight Bearing Referral Physician: Dr. Pal Reason for Referral: Evaluation/Treatment Medical History Pertinent Medical History: Atrial Fib, Alcoholism, COPD, HTN, Renal Insufficiency, Smoking, TBI Reviewed History: Yes Social History Home: Single Level Current Living Status: Other Family Entry Into Home: Stairs With Railing PT Steps Into Home: 2 Prior Prior Level of Function SCALE: Activities may be completed with or without assistive devices. 9-Jpbgztjmkn-fnamcun completes the activity by him/herself with no assistance from a helper. 5-Set-up or Clean-up Assistance-helper sets up or cleans up; patient completes activity. [place] assists only prior to or following the activity. 4-Supervision or Touching Assistance-helper provides verbal cues and/or t ouching/steadying and/or contact guard assistance as patient completes activity. Assistance may be provided throughout the activity or intermittently. 3-Partial/Moderate Assistance-helper does LESS THAN HALF the effort. [place] lifts, holds or supports trunk or limbs, but provides less than half the effort. 2-Substantial/Maximal Assistance-helper does MORE THAN HALF the effort. [place] lifts or holds trunk or limbs and provides more than half the effort. 0-Jlqjauxop-wcrlsa does ALL the effort. Patient does none of the effort to complete the activity. Or, the assistance of 2 or more helpers is required for the patient to complete the activity. If activity was not attempted, code reason: 7-Patient Refused. 9-Not Applicable-not attempted and the patient did not perform the activity before the current illness, exacerbation or injury. 10-Not Attempted due to Environmental Limitations-(lack of equipment, weather restraints, etc.). 88-Not Attempted due to Medical Conditions or Safety Concerns. Bed Mobility: 6 Transfers (B,C,W/C): 6 Gait: 6 Indoor Mobility (Ambulation): Independent Stairs: Independent Prior Devices Use: Walker PT Evaluation-Current Subjective Patient lying supine in bed upon PT arrival, agreeable to treatment. Patient rates pain at 10/10 currently in his throat. Objective Patient Orientation: Person, Place, Time, Situation Attachments: Oxygen, IV ROM/Strength ROM Lower Extremities WFLs BLEs all planes Strength Lower Extremities 3/5 all planes bilateral LEs Sensory Vision: Functional Hearing: Functional Sensation Right Lower Extremit: Intact Sensation Left Lower Extremity: Intact Transfers Roll Left to Right (QC): 4 Sit to Lying (QC): 4 Lying to Sitting/Side of Bed(Q: 4 Sit to Stand (QC): 3 Chair/Erw-xv-Mxhnw Xfer(QC): 4 Gait Does the Patient Walk?: No and Walking Goal IS indicated Mode of Locomotion: Walk Anticipated Mode of Locomotion: Walk Gait Assistive Device: None Balance Sitting Static: Good Sitting Dynamic: Good Standing Static: Fair Standing Dynamic: Fair Assessment/Needs Patient tolerated treatment fair, O2 sats declined to 85% upon sitting at edge of bed. Nurse increased O2 to 95% from 65%. Patient reports increased dizziness throughout the treatment. Patient performed sit to stand with min A and was able to perform right sidestepping to move higher in the bed. Patient in bed post treatment with all needs met, nursing notified, call light in reach. Rehab Potential: Good PT Half-Way Goals Half-Way Goals PT Aircraft Pilot Goals Time Frame: Dec 15, 2022 Roll Left & Right (QC): 6 Sit to Lying (QC): 6 Lying-Sitting on Side/Bed(QC): 6 Sit to Stand (QC): 6 Chair/Pke-ac-Wolmb Xfer(QC): 6 Toilet Transfer (QC): 6 Does the Patient Walk: Yes Walk 10 feet (QC): 6 Walk 50ft with 2 Turns (QC): 6 Walk 150 ft (QC): 6 1 Step (curb) (QC): 4 4 Steps (QC): 4 PT Plan Problem List Problem List: Activity Tolerance, Functional Strength, Safety, Balance, Gait, Transfer, Bed Mobility, ROM Treatment/Plan Treatment Plan: Continue Plan of Care Treatment Plan: Bed Mobility, Education, Functional Activity Lorena, Functional Strength, Group Therapy, Gait, Safety, Therapeutic Exercise, Transfers Treatment Duration: Dec 15, 2022 Frequency: 6 times per week Estimated Hrs Per Day: .25 hour per day Patient and/or Family Agrees t: Yes Safety Risks/Education Patient Education: Gait Training, Transfer Techniques Teaching Recipient: Patient Teaching Methods: Demonstration, Discussion Response to Teaching: Verbalize Understanding, Return Demonstration Time Time In: 1337 Time Out: 1402 DATE: Dec 05, 2022 Total Billed Treatment Time: 25 Total Billed Treatment Visit, STEPHANIE VIEYRA JOHN A PT Dec 05, 2022 14:09
[2022-12-05] MEDS: RIVAROXABAN 20 MG TABLET (XARELTO) PO SCH (17:35)
[2022-12-05] MEDS: guaiFENesin/DM (ROBITUSSIN DM) 10 ML UDC PO PRN (17:40)
[2022-12-06] MEDS: ALPRAZolam 0.5 MG (XANAX) TAB PO PRN ×2 (00:20→21:16)
[2022-12-06] MEDS: HYDROmorphone 2 MG/ML VIAL (DILAUDID) IV PRN ×5 (01:51→22:58)
[2022-12-06] MEDS: RT-ALBUTEROL/IPRATROPIUM 3 ML (DUONEB) VIAL INH SCH ×6 (02:47→22:44)
[2022-12-06 02:48] VITALS: BP 151/85
[2022-12-06 05:36] LABS: BASOPHILS % (AUTO) 0 % (0-10); EOSINOPHILS % (AUTO) 0 % (0-10); HEMATOCRIT 31 % (40-54); HEMOGLOBIN 9.6 g/dL (13.3-17.7); LYMPHOCYTES # (AUTO) 0.7 10^3/uL (1.0-4.0); LYMPHOCYTES % (AUTO) 5 % (12-44); MEAN CORPUSCULAR HEMOGLOBIN 26 pg (25-34); MEAN CORPUSCULAR HGB CONC 31 g/dL (32-36); MEAN CORPUSCULAR VOLUME 81 fL (80-99); MEAN PLATELET VOLUME 9.6 fL (9.0-12.2); MONOCYTES # (AUTO) 0.6 10^3/uL (0.0-1.0); MONOCYTES % (AUTO) 4 % (0-12); NEUTROPHILS # (AUTO) 11.4 10^3/uL (1.8-7.8); NEUTROPHILS % (AUTO) 88 % (42-75); PLATELET COUNT 521 10^3/uL (130-400); WHITE BLOOD COUNT 12.9 10^3/uL (4.3-11.0)
[2022-12-06 06:01] LABS: CALCIUM 8.9 MG/DL (8.5-10.1); CREATININE SERUM 0.54 MG/DL (0.60-1.30); MAGNESIUM 2.1 MG/DL (1.6-2.4); POTASSIUM 4.2 MMOL/L (3.6-5.0)
[2022-12-06] MEDS: methylPREDNISolone 40 MG/ML (Solu-MEDROL) VIAL IVP SCH ×3 (06:09→21:08)
[2022-12-06] MEDS: POTASSIUM CL 10MEQ/50ML IVPB 50 ML IV SCH (06:25)
[2022-12-06] MEDS: POTASSIUM BICARB 20 MEQ (EFFER-K) TABLET PO SCH (06:25)
[2022-12-06] MEDS: MAGNESIUM 1 GM/100 ML IVPB 100 ML IV SCH (06:25)
[2022-12-06] MEDS: KCL 20 MEQ TAB (K-DUR) PO SCH (06:26)
--- NOTE | 2022-12-06 07:12 | Progress Note - Surgery ---
ELVA COX 12/06/22 0712: Subjective Date Seen by a Provider: Dec 06, 2022 Time Seen by a Provider: 07:07 Subjective/Events-last exam Moshe Soto was seen at bedside this morning. He is still complaining of abdominal pain that he rates 10/10 just above the umbilicus. His cath was removed and he is complaining of worsening of abdominal pain when he feels like he needs to urinate. No blood in urine according to patient. 2 BMs reported yesterday after enema. Tolerating diet. No N/V. Feels like he is improving from a breathing standpoint, still on vapotherm. Review of Systems General: No Chills, No Night Sweats HEENT: No Head Aches, No Visual Changes Pulmonary: Dyspnea, Cough Cardiovascular: No: Chest Pain, Palpitations Gastrointestinal: Nausea, Abdominal Pain; No: Vomiting Genitourinary: No Dysuria, No Hematuria; Other (pain in abdomen when patient gets urge to urinate) Musculoskeletal: No: back pain, leg pain Neurological: No: Change in speech, Confusion Objective Exam Vital Signs Date Time Temp Pulse Resp B/P (MAP) Pulse Ox O2 Delivery O2 Flow Rate FiO2 12/06/22 06:34 98 Vapotherm 30.00 65 12/06/22 06:15 88 16 95 Vapotherm 30.00 65.00 12/06/22 06:00 87 16 142/88 (118) 92 NIV Bilevel 40.00 12/06/22 05:00 93 15 143/83 (108) NIV Bilevel 40.00 12/06/22 04:00 93 NIV Bilevel 40 12/06/22 04:00 98 17 154/93 (130) 99 NIV Bilevel 40.00 12/06/22 03:17 37.1 12/06/22 03:00 89 15 151/82 (109) 100 NIV Bilevel 40.00 12/06/22 02:48 109 15 100 40.00 12/06/22 02:00 91 15 151/85 (120) 99 NIV Bilevel 40.00 12/06/22 01:00 96 19 156/93 (117) 100 NIV Bilevel 40.00 12/06/22 01:00 96 12/06/22 00:45 93 20 100 NIV Bilevel 40.00 12/06/22 00:00 1 26 163/89 (126) 100 Vapotherm 30.00 65.00 12/05/22 23:59 93 NIV Bilevel 40 12/05/22 23:34 91 Vapotherm 30.00 65 12/05/22 23:00 101 20 161/95 (127) 914 Vapotherm 30.00 65.00 12/05/22 22:00 112 20 172/98 (138) Vapotherm 30.00 65.00 12/05/22 21:00 105 25 160/91 (131) 94 Vapotherm 30.00 65.00 12/05/22 20:13 36.5 12/05/22 20:00 105 25 163/85 (100) 94 Vapotherm 30.00 65.00 12/05/22 20:00 92 Vapotherm 30.00 55 12/05/22 19:00 95 19 160/95 (122) 94 Vapotherm 30.00 65.00 12/05/22 19:00 95 12/05/22 18:45 91 Vapotherm 30.00 65 12/05/22 18:00 98 19 159/101 (120) 91 Vapotherm 30.00 55.00 12/05/22 17:00 101 18 158/87 (110) 91 Vapotherm 30.00 55.00 12/05/22 16:00 97 21 157/85 (109) 91 Vapotherm 30.00 55.00 12/05/22 16:00 92 Vapotherm 30.00 55 12/05/22 15:00 98 18 149/84 (105) 93 Vapotherm 30.00 55.00 12/05/22 14:00 98 20 137/88 (104) 91 Vapotherm 30.00 55.00 12/05/22 13:01 94 12/05/22 13:00 91 19 143/86 (105) 94 Vapotherm 30.00 55.00 12/05/22 12:00 90 Vapotherm 55 12/05/22 12:00 91 18 149/89 (109) 95 Vapotherm 30.00 55.00 12/05/22 11:00 105 16 149/87 (107) 95 Vapotherm 30.00 55.00 12/05/22 10:43 93 Vapotherm 30.00 65 12/05/22 10:00 105 26 129/79 (96) 90 Vapotherm 30.00 55.00 12/05/22 09:00 93 12 137/76 (96) 93 Vapotherm 30.00 55.00 12/05/22 08:00 97 Vapotherm 100 12/05/22 08:00 101 19 117/86 (96) 97 Vapotherm 30.00 55.00 12/05/22 07:10 77 I & O 12/06/22 07:00 Intake Total 1385 ml Output Total 1900 ml Balance -515 ml Capillary Refill : Less Than 3 Seconds General Appearance: Chronically ill, Thin HEENT: PERRL/EOMI, Moist Mucous Membranes Neck: Non Tender, Supple Respiratory: Chest Non Tender, No Accessory Muscle Use, Other (coarse sounds present on inhalation and exhalation bilaterally, slightly less coarse than exam on 12/05) Cardiovascular: Regular Rate, Rhythm, No JVD, Normal Peripheral Pulses Peripheral Pulses: 2+ Dorsalis Pedis (R), 2+ Left Dors-Pedis (L) Gastrointestinal: soft; No distended; tenderness (midline above umbilicus) Extremity: Normal Inspection, Non Tender Neurologic/Psychiatric: Alert, Oriented x3 Skin: Normal Color, Warm/Dry Lymphatic: No Adenopathy Results Lab Laboratory Tests 12/06/22 04:33: White Blood Count 12.9H, Red Blood Count 3.77L, Hemoglobin 9.6L, Hematocrit 31L, Mean Corpuscular Volume 81, Mean Corpuscular Hemoglobin 26, Mean Corpuscular Hemoglobin Concent 31L, Red Cell Distribution Width 19.7H, Platelet Count 521H, Mean Platelet Volume 9.6, Immature Granulocyte % (Auto) 2, Neutrophils (%) (Auto ) 88H, Lymphocytes (%) (Auto) 5L, Monocytes (%) (Auto) 4, Eosinophils (%) (Auto) 0, Basophils (%) (Auto) 0, Neutrophils # (Auto) 11.4H, Lymphocytes # (Auto) 0.7L , Monocytes # (Auto) 0.6, Eosinophils # (Auto) 0.0, Basophils # (Auto) 0.0, Immature Granulocyte # (Auto) 0.3H, Sodium Level 137, Potassium Level 4.2, Chloride Level 97L, Carbon Dioxide Level 32, Anion Gap 8, Blood Urea Nitrogen 20H, Creatinine 0.54L, Estimat Glomerular Filtration Rate 114, BUN/Creatinine Ratio 37, Glucose Level 136H, Calcium Level 8.9, Magnesium Level 2.1 Microbiology 11/29/22 Blood Culture - Final, Complete No growth Assessment/Plan Assessment/Plan Assessment/Plan Iron Def. anemia- potentially GI bleed- Hgb 9.6 (12/06) S/P Blood transfusion - 12/01, one unit of LRRBCs constipation with Fecal impaction of rectal vault- resolved abdominal pain COPD Leukocytosis- WBCs back up to 12.9 from 8.7, could be from solumedrol or worsening infection hypotension- resolved Pneumonia Plan: KUB 12/04 was remarkable for non-obstructive gas bowel pattern and a small burden of colonic stool. BM after enema yesterday afternoon 12/05 had bowel movement and feeling better now, continue on bowel regimen continue to monitor Hgb, transfuse <7. Trending up Continue nebulized treatments and solumedrol for COPD exacerbation. Requiring vapotherm, continue to wean as tolerated May consider repeat CXR and UA due to rise in WBCs Continue pain control prn SOY SPAIN DO 12/06/221940: Subjective Subjective/Events-last exam Having bowel function. Abdomen feeling better. Still has occasional abdominal pain, but improves with bowel movement. Still on Vapotherm. Hgb stable. Tolerating diet. Denies n/v fever sweats chills or chest pain at this time. Objective Exam General Appearance: Chronically ill, Thin HEENT: PERRL/EOMI, Normal ENT Inspection Neck: Non Tender, Supple Respiratory: Chest Non Tender, No Accessory Muscle Use (on vapotherm) Gastrointestinal: non tender (on my exam), soft; No distended Extremity: Normal Inspection, Non Tender Neurologic/Psychiatric: Alert, Oriented x3 Skin: Normal Color, Warm/Dry Lymphatic: No Adenopathy Assessment/Plan Assessment/Plan Assessment/Plan Iron Def. anemia- potentially GI bleed- Hgb 9.6 (12/06) S/P Blood transfusion - 12/01, one unit of LRRBCs constipation with Fecal impaction of rectal vault- resolved abdominal pain COPD Leukocytosis- WBCs back up to 12.9 from 8.7, likely from solumedrol hypotension- resolved Pneumonia KUB 12/04 was remarkable for non-obstructive gas bowel pattern and a small burden of colonic stool. BM after enema yesterday afternoon 12/05 had bowel movement and feeling better now, continue on bowel regimen continue to monitor Hgb, transfuse <7. Trending up consider outpatient endoscopy when breathing and overall condition improve Continue nebulized treatments and solumedrol for COPD exacerbation. Requiring vapotherm, continue to wean as tolerated Continue pain control prn will sign off, call if needed Supervisory-Addendum Brief Verification & Attestation Participated in pt care: history, MDM, physical Personally performed: exam, history, MDM, supervision of care Care discussed with: Medical Student Procedures: n/a Results interpretation: Verified all documentation Verification and Attestation of Medical Student E/M Service A medical student performed and documented this service in my presence. I reviewed and verified all information documented by the medical student and made modifications to such information, when appropriate. I personally performed the physical exam and medical decision making. [place], Dec 06, 2022,19:41 ELVA COX Dec 06, 2022 07:12 SOY SPAIN DO Dec 06, 2022 19:41
[2022-12-06] MEDS: PANTOPRAZOLE 40 MG (PROTONIX) VIAL IV SCH (09:06)
[2022-12-06] MEDS: IRON SUCROSE 200 MG/10 ML (VENOFER) VIAL IV SCH (09:06)
--- NOTE | 2022-12-06 09:06 | Tele-ICU Progress Note ---
Subjective Date Seen by a Provider: Dec 06, 2022 Subjective/Events-last exam This virtual visit was conducted using real time audio/video. Thank you for asking us to see this patient for respiratory insufficiency due to pna/AECOPD. Transferred to ICU 12/01. Recent events: FiO2 down to 55%. PE: VSS. O2 sat 93% on 55%/30 LPM. HEENT: No obviocoarse on auscultation. CV: RRR S1 S2 No murmur or added sounds. Abd: Non-tender. Bowel sounds Y. : Unremarkable. [place] N. PRESS HELPER/psychiatric: Grossly intact. No obvious focal findings. Extremities: No edema. Capillary refill < 3 seconds. Skin: unremarkable. Results: Elevated WCC 12.9, BUN 20, BG 136. Decreased Hb 9.6. AB.35/75/179 on 60%. CXR: V. hyperinflated w fibrotic changes. Available chart/ vitals / labs / images reviewed. Video assessment done using teleICU camera, rest of exam as per RN. A/P: Respiratory insufficiency: Continue present management with VT, alb., medrol, robitDM Monitor for increasing oxygenation needs and/or need for intubation. Critical Care: critically ill patient. Cont. PPI, neurontin, dilt., baclofen, statin, dig., Xarelto Discussed with RN Ronnie. Asked RN to reach out to eICU if any questions or concerns later. Time spent with patient/coordination of care with other health professionals (mins): 18 Sepsis Event Evaluation Height, Weight, BMI Height: '" Weight: lbs. oz. kg; 16.42 BMI Method: Exam Exam Patient acknowledged, consented, and participated in this virtual visit which was conducted using real time audio/video Vital Signs Date Time Temp Pulse Resp B/P (MAP) Pulse Ox O2 Delivery O2 Flow Rate FiO2 12/06/22 08:00 94 Vapotherm 30.00 55 12/06/22 06:34 98 Vapotherm 30.00 65 12/06/22 06:15 88 16 95 Vapotherm 30.00 65.00 12/06/22 06:00 87 16 142/88 (118) 92 NIV Bilevel 40.00 12/06/22 05:00 93 15 143/83 (108) NIV Bilevel 40.00 12/06/22 04:00 93 NIV Bilevel 40 12/06/22 04:00 98 17 154/93 (130) 99 NIV Bilevel 40.00 12/06/22 03:17 37.1 12/06/22 03:00 89 15 151/82 (109) 100 NIV Bilevel 40.00 12/06/22 02:48 109 15 100 40.00 12/06/22 02:00 91 15 151/85 (120) 99 NIV Bilevel 40.00 12/06/22 01:00 96 19 156/93 (117) 100 NIV Bilevel 40.00 12/06/22 01:00 96 12/06/22 00:45 93 20 100 NIV Bilevel 40.00 12/06/22 00:00 1 26 163/89 (126) 100 Vapotherm 30.00 65.00 12/05/22 23:59 93 NIV Bilevel 40 12/05/22 23:34 91 Vapotherm 30.00 65 12/05/22 23:00 101 20 161/95 (127) 914 Vapotherm 30.00 65.00 12/05/22 22:00 112 20 172/98 (138) Vapotherm 30.00 65.00 12/05/22 21:00 105 25 160/91 (131) 94 Vapotherm 30.00 65.00 12/05/22 20:13 36.5 12/05/22 20:00 105 25 163/85 (100) 94 Vapotherm 30.00 65.00 12/05/22 20:00 92 Vapotherm 30.00 55 12/05/22 19:00 95 19 160/95 (122) 94 Vapotherm 30.00 65.00 12/05/22 19:00 95 12/05/22 18:45 91 Vapotherm 30.00 65 12/05/22 18:00 98 19 159/101 (120) 91 Vapotherm 30.00 55.00 12/05/22 17:00 101 18 158/87 (110) 91 Vapotherm 30.00 55.00 12/05/22 16:00 97 21 157/85 (109) 91 Vapotherm 30.00 55.00 12/05/22 16:00 92 Vapotherm 30.00 55 12/05/22 15:00 98 18 149/84 (105) 93 Vapotherm 30.00 55.00 12/05/22 14:00 98 20 137/88 (104) 91 Vapotherm 30.00 55.00 12/05/22 13:01 94 12/05/22 13:00 91 19 143/86 (105) 94 Vapotherm 30.00 55.00 12/05/22 12:00 90 Vapotherm 55 12/05/22 12:00 91 18 149/89 (109) 95 Vapotherm 30.00 55.00 12/05/22 11:00 105 16 149/87 (107) 95 Vapotherm 30.00 55.00 12/05/22 10:43 93 Vapotherm 30.00 65 12/05/22 10:00 105 26 129/79 (96) 90 Vapotherm 30.00 55.00 I & O 12/06/22 06:59 Intake Total 1385 ml Output Total 1900 ml Balance -515 ml Height & Weight Height: '" Weight: lbs. oz. kg; 16.42 BMI Method: General Appearance: Chronically ill, Thin HEENT: PERRL/EOMI, Moist Mucous Membranes Neck: Non Tender, Supple Respiratory: Chest Non Tender, No Accessory Muscle Use, Other (coarse sounds present on inhalation and exhalation bilaterally, slightly less coarse than exam on 12/05) Cardiovascular: Regular Rate, Rhythm, No JVD, Normal Peripheral Pulses Capillary Refill: Less Than 3 Seconds Peripheral Pulses: 2+ Dorsalis Pedis (R), 2+ Left Dors-Pedis (L) Gastrointestinal: soft; No distended; tenderness (midline above umbilicus) Extremity: Normal Inspection, Non Tender Neurologic/Psychiatric: Alert, Oriented x3 Skin: Normal Color, Warm/Dry Lymphatic: No Adenopathy Results Lab Laboratory Tests 12/05/22 03:56 12/06/22 04:33 Assessment/Plan Assessment/Plan See free text. Critical Care: Critically Ill Patient MICHELE SUMNER MD Dec 06, 2022 09:06
[2022-12-06] MEDS: dilTIAZem120 MG (CARDIZEM CD) CAP PO SCH (09:07)
[2022-12-06] MEDS: DIGOXIN 0.25 MG (LANOXIN) TAB PO SCH (09:07)
[2022-12-06] MEDS: GABAPENTIN 400 MG (NEURONTIN) CAP PO SCH ×2 (09:07→21:08)
[2022-12-06] MEDS: FOLIC ACID 1 MG TAB PO SCH (09:07)
[2022-12-06] MEDS: DULoxetine 30 MG (CYMBALTA) CAP PO SCH (09:07)
[2022-12-06] MEDS: DOCUSATE SODIUM 100 MG (COLACE) CAP PO SCH ×2 (09:07→23:02)
[2022-12-06] MEDS: SENNOSIDES 8.6 MG (SENOKOT) TAB PO SCH ×2 (09:08→23:02)
--- NOTE | 2022-12-06 09:22 | Progress Note - Hospitalist ---
Subjective HPI/CC On Admission Date Seen by Provider: Dec 06, 2022 Moshe Soto (Willy) is a 62 year old male with PMH HTN, HLD, AFib, PAD, CAD, COPD, who presented with shortness of breath. He has had a cough. He has had chest pain. He also reports abdominal pain. He has been nauseous. He denies vomiting. He denies diarrhea. He denies fevers and chills. He is on 4 L continous oxygen at baseline. Subjective/Events-last exam Pt repors feeling better today. Still on Vapotherm. 30 lpm at 55%. I weaned down to 50% as was shayy chin the s. Discussed potential for LTACH and at first he was not willing but ultimately agreed if it was best for him he would go. Objective Exam Vital Signs Vital Signs Date Time Temp Pulse Resp B/P (MAP) Pulse Ox O2 Delivery O2 Flow Rate FiO2 12/06/22 08:00 94 Vapotherm 30.00 55 12/06/22 06:15 88 16 12/06/22 03:17 37.1 Capillary Refill : Less Than 3 Seconds General Appearance: No Apparent Distress, Chronically ill, Cachetic Respiratory: Lungs Clear, No Respiratory Distress Cardiovascular: Regular Rate, Rhythm, No Murmur Neurologic/Psychiatric: Alert, Oriented x3 Results/Procedures Lab Laboratory Tests 12/06/22 04:33 Patient resulted labs reviewed. Imaging: Reviewed Imaging Report Assessment/Plan Assessment and Plan Assess & Plan/Chief Complaint Severe sepsis Pneumonia Acute on chronic respiratory failure with hypoxia and hypercapnia Chest pain CXR with RML PNA Vapotherm with prn and HS BiPAP LTACH referral s/p Rocephin and Azithromycin Steroids- start weaning dose MAT protocol TeleICU following IS Troponin negative Iron deficiency anemia Hgb up to 9.6 this AM s/p 1 unit PRBC earlier in admission Iron studies consistent with iron deficiency Occult blood negative Continue Xarelto B12/folate low normal Continue folic acid Continue Venofer Surgery following Obstipation Opoid induced constipation Resolved Continue bowel regimen Colace and Senna scheduled HTN Hold home meds, BP well controlled HLD AFib PAD CAD COPD Continue home meds as able DVT ppx: Xarelto Critical Care Critically Ill Patient BLANE JAIN MD Dec 06, 2022 09:22
[2022-12-06] MEDS: guaiFENesin/DM (ROBITUSSIN DM) 10 ML UDC PO PRN (14:00)
[2022-12-06 14:32] VITALS: BP 143/81
--- NOTE | 2022-12-06 15:12 | Physical Therapy Daily Note ---
PT Daily Note-Current Subjective Patient lying supine in bed upon PT arrival, agreeable to treatment. Patient rates pain at 10/10 in his chest due to coughing. Pain Section J - Health Conditions 1. Rarely or not at all 2. Occasionally 3. Frequently 4. Almost constantly 8. Unable to answer Pain Effect on Sleep: 3 Pain Interference with Therapy: 3 Pain Interference w/Day-to-Day: 4 Mental Status Patient Orientation: Person, Place, Time, Situation Transfers SCALE: Activities may be completed with or without assistive devices. 0-Lxccdnhvut-xcxdnye completes the activity by him/herself with no assistance from a helper. 5-Set-up or Clean-up Assistance-helper sets up or cleans up; patient completes activity. [place] assists only prior to or following the activity. 4-Supervision or Touching Assistance-helper provides verbal cues and/or touching/steadying and/or contact guard assistance as patient completes activity. Assistance may be provided throughout the activity or intermittently. 3-Partial/Moderate Assistance-helper does LESS THAN HALF the effort. [place] lifts, holds or supports trunk or limbs, but provides less than half the effort. 2-Substantial/Maximal Assistance-helper does MORE THAN HALF the effort. [place] lifts or holds trunk or limbs and provides more than half the effort. 2-Abiroapnn-qixwfl does ALL the effort. Patient does none of the effort to complete the activity. Or, the assistance of 2 or more helpers is required for the patient to complete the activity. If activity was not attempted, code reason: 7-Patient Refused. 9-Not Applicable-not attempted and the patient did not perform the activity before the current illness, exacerbation or injury. 10-Not Attempted due to Environmental Limitations-(lack of equipment, weather restraints, etc.). 88-Not Attempted due to Medical Conditions or Safety Concerns. Roll Left & Right (QC): 5 Sit to Lying (QC): 5 Lying to Sitting/Side of Bed(Q: 5 Sit to Stand (QC): 4 Weight Bearing Right Lower Extremity: Right Full Weight Bearing Left Lower Extremity: Left Full Weight Bearing Gait Training Does the Patient Walk?: No and Walking Goal IS indicated Exercises Supine Ex: Ankle pumps, Quad Set, Glut sets, Heel Slides, Short Arc Quads, Straight leg raise, Hip abd/add Supine Reps: 20 Assessment Current Status: Fair Progress Patient tolerated treatment much better this session. Nurse transitioned patient from mask to Vapotherm and patients O2 stayed above 95% throughout treatment. Patient performed LE therapeutic exercise as listed above. He performed bed mobility with setup and transfers with CGA. Patient was able to stand with CGA while nursing performed jarrod-care and then patient was able to ambulate forward 3 feet/backwards 3 feet x 2 with CGA. Patient in bed post treatment with all needs met, nursing notified, call light in reach. PT Snf Goals Snf Goals PT Out And Out Cigar Maker Hand Goals Time Frame: Dec 15, 2022 Roll Left & Right (QC): 6 Sit to Lying (QC): 6 Lying-Sitting on Side/Bed(QC): 6 Sit to Stand (QC): 6 Chair/Cdb-fk-Kjtxg Xfer(QC): 6 Toilet Transfer (QC): 6 Does the Patient Walk: Yes Walk 10 feet (QC): 6 Walk 50ft with 2 Turns (QC): 6 Walk 150 ft (QC): 6 1 Step (curb) (QC): 4 4 Steps (QC): 4 PT Plan Treatment/Plan Treatment Plan: Continue Plan of Care Treatment Plan: Bed Mobility, Education, Functional Activity Lorena, Functional Strength, Group Therapy, Gait, Safety, Therapeutic Exercise, Transfers Treatment Duration: Dec 15, 2022 Frequency: 6 times per week Estimated Hrs Per Day: .25 hour per day Patient and/or Family Agrees t: Yes Safety Risks/Education Patient Education: Gait Training, Transfer Techniques Teaching Recipient: Patient Teaching Methods: Demonstration, Discussion Response to Teaching: Verbalize Understanding, Return Demonstration Time Time In: 1438 Time Out: 1502 DATE: Dec 06, 2022 Total Billed Treatment Time: 24 Total Billed Treatment Visit, STEPHANIE, JAY GOTTI PT Dec 06, 2022 15:12
[2022-12-06] MEDS: RIVAROXABAN 20 MG TABLET (XARELTO) PO SCH (17:30)
[2022-12-06 19:19] VITALS: BP 130/82
[2022-12-06] MEDS: MELATONIN 3 MG TABLET PO PRN (22:58)
[2022-12-07] MEDS: RT-ALBUTEROL/IPRATROPIUM 3 ML (DUONEB) VIAL INH SCH ×6 (02:25→22:23)
[2022-12-07] MEDS: HYDROmorphone 2 MG/ML VIAL (DILAUDID) IV PRN ×4 (02:35→21:20)
[2022-12-07 04:22] LABS: BASOPHILS % (AUTO) 0 % (0-10); EOSINOPHILS % (AUTO) 0 % (0-10); HEMATOCRIT 31 % (40-54); HEMOGLOBIN 9.7 g/dL (13.3-17.7); LYMPHOCYTES # (AUTO) 0.6 10^3/uL (1.0-4.0); LYMPHOCYTES % (AUTO) 4 % (12-44); MEAN CORPUSCULAR HEMOGLOBIN 26 pg (25-34); MEAN CORPUSCULAR HGB CONC 31 g/dL (32-36); MEAN CORPUSCULAR VOLUME 82 fL (80-99); MONOCYTES # (AUTO) 0.7 10^3/uL (0.0-1.0); MONOCYTES % (AUTO) 4 % (0-12); NEUTROPHILS # (AUTO) 15.8 10^3/uL (1.8-7.8); NEUTROPHILS % (AUTO) 90 % (42-75); PLATELET COUNT 534 10^3/uL (130-400); WHITE BLOOD COUNT 17.5 10^3/uL (4.3-11.0)
[2022-12-07 04:50] LABS: BAND NEUTROPHILS 0 %; BASOPHILS % (MANUAL) 0 %; EOSINOPHILS % (MANUAL) 0 %; LYMPHOCYTES % (MANUAL) 7 %; MONOCYTES % (MANUAL) 8 %; NEUTROPHILS % (MANUAL) 84 %; REACTIVE LYMPHOCYTES 1 %
[2022-12-07 04:51] LABS: ANISOCYTOSIS SLIGHT; ELLIPT/OVALOCYTES SLIGHT; HYPOCHROMASIA SLIGHT; POLYCHROMASIA SLIGHT; TARGET CELLS SLIGHT
[2022-12-07 04:53] LABS: POTASSIUM 4.5 MMOL/L (3.6-5.0)
[2022-12-07 04:55] LABS: CALCIUM 8.7 MG/DL (8.5-10.1)
[2022-12-07 04:59] LABS: CREATININE SERUM 0.62 MG/DL (0.60-1.30)
[2022-12-07 05:01] LABS: MAGNESIUM 2.1 MG/DL (1.6-2.4)
[2022-12-07] MEDS: methylPREDNISolone 40 MG/ML (Solu-MEDROL) VIAL IVP SCH ×3 (06:03→21:19)
[2022-12-07] MEDS: POTASSIUM CL 10MEQ/50ML IVPB 50 ML IV SCH (06:08)
[2022-12-07] MEDS: MAGNESIUM 1 GM/100 ML IVPB 100 ML IV SCH (06:08)
[2022-12-07] MEDS: KCL 20 MEQ TAB (K-DUR) PO SCH (06:09)
[2022-12-07] MEDS: POTASSIUM BICARB 20 MEQ (EFFER-K) TABLET PO SCH (06:09)
[2022-12-07] MEDS: guaiFENesin/DM (ROBITUSSIN DM) 10 ML UDC PO PRN (06:57)
--- NOTE | 2022-12-07 08:17 | Physical Therapy Daily Note ---
PT Daily Note-Current Subjective Patient agrees to PT. Pain Section J - Health Conditions 1. Rarely or not at all 2. Occasionally 3. Frequently 4. Almost constantly 8. Unable to answer Pain Effect on Sleep: 2 Pain Interference with Therapy: 2 Pain Interference w/Day-to-Day: 2 Mental Status Patient Orientation: Normal For Age Attachments: Oxygen (vapotherm) Transfers SCALE: Activities may be completed with or without assistive devices. 1-Vmylcnxgto-gbfwcry completes the activity by him/herself with no assistance from a helper. 5-Set-up or Clean-up Assistance-helper sets up or cleans up; patient completes activity. [place] assists only prior to or following the activity. 4-Supervision or Touching Assistance-helper provides verbal cues and/or touching/steadying and/or contact guard assistance as patient completes activity. Assistance may be provided throughout the activity or intermittently. 3-Partial/Moderate Assistance-helper does LESS THAN HALF the effort. [place] lifts, holds or supports trunk or limbs, but provides less than half the effort. 2-Substantial/Maximal Assistance-helper does MORE THAN HALF the effort. [place] lifts or holds trunk or limbs and provides more than half the effort. 4-Xfargnwnp-auvltc does ALL the effort. Patient does none of the effort to complete the activity. Or, the assistance of 2 or more helpers is required for the patient to complete the activity. If activity was not attempted, code reason: 7-Patient Refused. 9-Not Applicable-not attempted and the patient did not perform the activity before the current illness, exacerbation or injury. 10-Not Attempted due to Environmental Limitations-(lack of equipment, weather restraints, etc.). 88-Not Attempted due to Medical Conditions or Safety Concerns. Lying to Sitting/Side of Bed(Q: 6 Sit to Stand (QC): 4 Chair/Ukj-zg-Eexis Xfer(QC): 4 Weight Bearing Right Lower Extremity: Right Full Weight Bearing Left Lower Extremity: Left Full Weight Bearing Gait Training Distance: 5 steps Gait Assistive Device: None SBA Exercises Seated Therapy Exercises: Ankle pumps, Long arc quads, Hip flexion Seated Reps: 15 Assessment Patient's SAO2 decreases to 86% with quick recovery to 92%. Patient in recliner with breakfast in situ. PT to increase activity as tolerated by patient. PT Platform Operations Director Goals Platform Operations Director Goals PT Longterm Goals Time Frame: Dec 15, 2022 Roll Left & Right (QC): 6 Sit to Lying (QC): 6 Lying-Sitting on Side/Bed(QC): 6 Sit to Stand (QC): 6 Chair/Yij-ix-Qjyhc Xfer(QC): 6 Toilet Transfer (QC): 6 Does the Patient Walk: Yes Walk 10 feet (QC): 6 Walk 50ft with 2 Turns (QC): 6 Walk 150 ft (QC): 6 1 Step (curb) (QC): 4 4 Steps (QC): 4 PT Plan Treatment/Plan Treatment Plan: Continue Plan of Care Treatment Plan: Bed Mobility, Education, Functional Activity Lorena, Functional Strength, Group Therapy, Gait, Safety, Therapeutic Exercise, Transfers Treatment Duration: Dec 15, 2022 Frequency: 6 times per week Estimated Hrs Per Day: .25 hour per day Patient and/or Family Agrees t: Yes Time Time In: 754 Time Out: 810 DATE: Dec 07, 2022 Total Billed Treatment Time: 14 Total Billed Treatment 1 visit EX 14 min IDRIS ONEIL PT Dec 07, 2022 08:17
--- NOTE | 2022-12-07 08:50 | Progress Note - Hospitalist ---
Subjective HPI/CC On Admission Date Seen by Provider: Dec 07, 2022 Moshe Soto (Willy) is a 62 year old male with PMH HTN, HLD, AFib, PAD, CAD, COPD, who presented with shortness of breath. He has had a cough. He has had chest pain. He also reports abdominal pain. He has been nauseous. He denies vomiting. He denies diarrhea. He denies fevers and chills. He is on 4 L continous oxygen at baseline. Subjective/Events-last exam Pt reports doing well. Up in chair. just worked with PT. Objective Exam Vital Signs Vital Signs Date Time Temp Pulse Resp B/P (MAP) Pulse Ox O2 Delivery O2 Flow Rate FiO2 12/07/22 07:00 90 12/07/22 06:47 91 Vapotherm 25.00 60 12/07/22 06:00 13 135/76 (95) 12/07/22 04:13 36.6 Capillary Refill : Less Than 3 Seconds General Appearance: No Apparent Distress, Chronically ill, Thin Respiratory: Lungs Clear, No Accessory Muscle Use, Other (on Vapotherm) Cardiovascular: Regular Rate, Rhythm, No Murmur Neurologic/Psychiatric: Alert, Oriented x3 Results/Procedures Lab Laboratory Tests 12/07/22 03:35 Patient resulted labs reviewed. Imaging: Reviewed Imaging Report Assessment/Plan Assessment and Plan Assess & Plan/Chief Complaint Severe sepsis Pneumonia Acute on chronic respiratory failure with hypoxia and hypercapnia Chest pain CXR with RML PNA Vapotherm with prn and HS BiPAP LTACH referral- awaiting response s/p Rocephin and Azithromycin WBC up today but no clinical evidence of infection (no fever, sputum, not feeling worse)- will check procal- low threshold for restarting abx though Steroids- continue weaning dose MAT protocol TeleICU following IS Troponin negative Iron deficiency anemia Hgb up to 9.7 this AM s/p 1 unit PRBC earlier in admission Iron studies consistent with iron deficiency Occult blood negative Continue Xarelto B12/folate low normal Continue folic acid Continue Venofer Surgery following Obstipation Opoid induced constipation Resolved Continue bowel regimen Is having BMs per patient and was being cleaned up from BM the other day when I was in room but none documented, discussed with ROHAN Lynne and Buzz scheduled HTN Hold home meds, BP well controlled HLD AFib PAD CAD COPD Continue home meds as able DVT ppx: Xarelto Critical Care Critically Ill Patient BLANE JAIN MD Dec 07, 2022 08:50
[2022-12-07] MEDS: DULoxetine 30 MG (CYMBALTA) CAP PO SCH (09:39)
[2022-12-07] MEDS: PANTOPRAZOLE 40 MG (PROTONIX) VIAL IV SCH (09:39)
[2022-12-07] MEDS: DIGOXIN 0.25 MG (LANOXIN) TAB PO SCH (09:39)
[2022-12-07] MEDS: GABAPENTIN 400 MG (NEURONTIN) CAP PO SCH ×2 (09:40→20:01)
[2022-12-07] MEDS: FOLIC ACID 1 MG TAB PO SCH (09:40)
[2022-12-07] MEDS: dilTIAZem120 MG (CARDIZEM CD) CAP PO SCH (09:40)
[2022-12-07] MEDS: DOCUSATE SODIUM 100 MG (COLACE) CAP PO SCH ×2 (09:40→20:01)
[2022-12-07] MEDS: SENNOSIDES 8.6 MG (SENOKOT) TAB PO SCH ×2 (09:40→20:01)
[2022-12-07] MEDS: ALPRAZolam 0.5 MG (XANAX) TAB PO PRN (10:25)
--- NOTE | 2022-12-07 12:29 | Tele-ICU Progress Note ---
Subjective Date Seen by a Provider: Dec 07, 2022 Time Seen by a Provider: 12:29 Subjective/Events-last exam (Tele-ICU Physician , Progress Note ) Service provided via interactive audio and video telecommunications E-CARE system to a patient admitted to ICU bed in [facility]. Patient is seen today due to persistent need of ICU care Available chart/ vitals / labs / Images reviewed Video assessment done using teleICU camera, rest of exam as per RN Discussed with RN Events overnight : Afebrile hemodynamically stable Respiratory - I/O = neg Drips: Pressors- no Hospital course: (11/29) 62M Admitted to floor for sepsis PNA/COPD, constipation, Anemia, possible bactermia (12/01) TX to ICU: holding xarelto ,s/p 1 unit PRBC 12/01 Hypercapnia-Bipap (12/02) Xarelto resumed (12/03) - VT 30 L 60 %, BIPAP whole night , 40 % 12/05- VT 30 L 55 %, not on BIPAP at night 12/07- VT 25 L 60% A/P Acute hypoxic resp failure - VT 30 L 55 % - not on BIPAP last night - CPM with NIPPV , steroids , repeat cxr Chronic resp hypoxic failure with severe emphysema on CT - on home o2 ? AECOPD - steroids IV 40 q 8 - to cont today - nebs PNA, RIL - sputum cx ? 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 chronic Constipation - as per Sx - KUB 12/04 - Nonobstructed bowel gas pattern. Lines : periph lines , (Central Line Necessity Reviewed) Jackson: + - out 12/05 removed OG: Nutrition: po Analgesia: Anxiety/ delirium VTE Prophylaxis: xarelto Stress Ulcer Prophylaxis: ppi Plans in collaboration with bedside consultants and IM MDs. Discussed with RN to reach out if any questions or concerns Case and care daily discussed on multidisciplinary rounds ( RN, PharmD, Petroleum Refinery Operator , Respiratory Therapy, auto glass worker ) A total of 25 minutes of critical care time was devoted to this patient today, required to treat and/or prevent further deterioration of critical care condition ( as above ) . Sepsis Event Evaluation Height, Weight, BMI Height: '" Weight: lbs. oz. kg; 16.94 BMI Method: Exam Exam Patient acknowledged, consented, and participated in this virtual visit which was conducted using real time audio/video Vital Signs Date Time Temp Pulse Resp B/P (MAP) Pulse Ox O2 Delivery O2 Flow Rate FiO2 12/07/22 12:00 106 13 134/80 (98) 97 Vapotherm 25.00 60.00 12/07/22 11:12 94 Vapotherm 25.00 60 12/07/22 11:00 109 18 131/84 (100) 99 Vapotherm 25.00 60.00 12/07/22 10:27 96 Vapotherm 25.00 60 12/07/22 10:00 114 21 125/77 (93) 94 Vapotherm 25.00 60.00 12/07/22 09:00 116 21 121/82 (95) 99 Vapotherm 25.00 60.00 12/07/22 08:00 94 Vapotherm 25.00 60 12/07/22 08:00 99 22 111/70 (84) 94 Vapotherm 25.00 60.00 12/07/22 07:00 90 12/07/22 07:00 90 14 135/76 (95) 93 Vapotherm 25.00 60.00 12/07/22 06:47 91 Vapotherm 25.00 60 12/07/22 06:00 89 13 135/76 (95) 92 Vapotherm 25.00 60.00 12/07/22 05:00 94 15 115/68 (84) 91 Vapotherm 25.00 60.00 12/07/22 04:13 36.6 12/07/22 04:00 94 Vapotherm 25.00 60 12/07/22 04:00 94 15 132/78 (96) 91 Vapotherm 25.00 60.00 12/07/22 03:00 93 14 117/72 (87) 91 Vapotherm 25.00 60.00 12/07/22 02:26 93 Vapotherm 25.00 60 12/07/22 02:00 90 16 120/96 (104) 92 Vapotherm 25.00 60.00 12/07/22 01:00 90 12/07/22 01:00 90 12 139/78 (98) 93 Vapotherm 25.00 60.00 12/07/22 00:05 Vapotherm 25.00 60.00 12/07/22 00:00 88 12 138/79 (98) 93 Vapotherm 20.00 50.00 12/06/22 23:59 94 Vapotherm 25.00 60 12/06/22 23:06 Vapotherm 20.00 50.00 12/06/22 23:00 96 19 148/91 (110) 100 NIV Bilevel 40.00 12/06/22 22:44 94 Vapotherm 25.00 50 12/06/22 22:00 98 16 137/84 (101) 100 NIV Bilevel 40.00 12/06/22 21:00 98 17 144/91 (108) 96 NIV Bilevel 40.00 12/06/22 20:00 105 23 131/88 (102) 95 NIV Bilevel 40.00 12/06/22 20:00 94 NIV Bilevel 40 12/06/22 19:50 36.9 12/06/22 19:19 104 17 96 40.00 12/06/22 19:00 99 17 130/82 (98) 96 NIV Bilevel 40.00 12/06/22 19:00 101 12/06/22 19:00 NIV Bilevel 40.00 12/06/22 18:00 109 17 153/100 (117) 91 Vapotherm 25.00 45.00 12/06/22 17:00 98 18 151/78 (102) 93 Vapotherm 25.00 45.00 12/06/22 16:00 102 19 148/76 (100) 97 Vapotherm 25.00 45.00 12/06/22 16:00 93 Vapotherm 30.00 50 12/06/22 15:00 107 18 138/88 (105) 99 Vapotherm 25.00 45.00 12/06/22 14:32 102 20 94 40.00 12/06/22 14:00 110 26 143/81 (101) 91 Vapotherm 25.00 45.00 12/06/22 13:00 105 22 142/82 (102) 94 Vapotherm 25.00 45.00 12/06/22 12:52 109 I & O 12/07/22 07:00 Intake Total 2410 ml Output Total 2075 ml Balance 335 ml Height & Weight Height: '" Weight: lbs. oz. kg; 16.94 BMI Method: General Appearance: No Apparent Distress, Chronically ill, Thin HEENT: PERRL/EOMI, Normal ENT Inspection Neck: Non Tender, Supple Respiratory: Lungs Clear, No Accessory Muscle Use, Other (on Vapotherm) Cardiovascular: Regular Rate, Rhythm, No Murmur Capillary Refill: Less Than 3 Seconds Peripheral Pulses: 2+ Dorsalis Pedis (R), 2+ Left Dors-Pedis (L) Gastrointestinal: non tender (on my exam), soft; No distended Extremity: Normal Inspection, Non Tender Neurologic/Psychiatric: Alert, Oriented x3 Skin: Normal Color, Warm/Dry Lymphatic: No Adenopathy Results Lab Laboratory Tests 12/06/22 04:33 12/07/22 03:35 Assessment/Plan Assessment/Plan 1 YADY VIGIL MD Dec 07, 2022 12:29
[2022-12-07] MEDS: RIVAROXABAN 20 MG TABLET (XARELTO) PO SCH (15:55)
[2022-12-07] MEDS: oxyCODONE/APAP 5/325MG (PERCOCET 5) TABLET PO PRN ×2 (15:56→20:01)
[2022-12-08] MEDS: HYDROmorphone 2 MG/ML VIAL (DILAUDID) IV PRN ×6 (01:13→19:32)
[2022-12-08 01:44] LABS: BILIRUBIN,URINE NEGATIVE (NEGATIVE); CLARITY,URINE CLEAR; COLOR,URINE YELLOW; GLUCOSE, URINE (UA) NEGATIVE (NEGATIVE); KETONES,URINE NEGATIVE (NEGATIVE); LEUKOCYTE ESTERASE ,URINE NEGATIVE (NEGATIVE); NITRITE,URINE NEGATIVE (NEGATIVE); PROTEIN,URINE NEGATIVE (NEGATIVE)
[2022-12-08 01:54] LABS: BACTERIA,URINE NEGATIVE /HPF
[2022-12-08] MEDS: RT-ALBUTEROL/IPRATROPIUM 3 ML (DUONEB) VIAL INH SCH ×6 (02:56→22:34)
[2022-12-08] MEDS: oxyCODONE/APAP 5/325MG (PERCOCET 5) TABLET PO PRN ×4 (02:59→22:06)
[2022-12-08] MEDS: guaiFENesin/DM (ROBITUSSIN DM) 10 ML UDC PO PRN ×2 (02:59→08:32)
[2022-12-08 05:05] LABS: BASOPHILS % (AUTO) 0 % (0-10); EOSINOPHILS % (AUTO) 0 % (0-10); HEMATOCRIT 31 % (40-54); HEMOGLOBIN 9.7 g/dL (13.3-17.7); LYMPHOCYTES # (AUTO) 0.3 10^3/uL (1.0-4.0); LYMPHOCYTES % (AUTO) 1 % (12-44); MEAN CORPUSCULAR HEMOGLOBIN 26 pg (25-34); MEAN CORPUSCULAR HGB CONC 31 g/dL (32-36); MEAN CORPUSCULAR VOLUME 83 fL (80-99); MONOCYTES # (AUTO) 0.7 10^3/uL (0.0-1.0); MONOCYTES % (AUTO) 3 % (0-12); NEUTROPHILS # (AUTO) 23.1 10^3/uL (1.8-7.8); NEUTROPHILS % (AUTO) 94 % (42-75); PLATELET COUNT 486 10^3/uL (130-400); WHITE BLOOD COUNT 24.6 10^3/uL (4.3-11.0)
[2022-12-08] MEDS: POTASSIUM CL 10MEQ/50ML IVPB 50 ML IV SCH (05:23)
[2022-12-08] MEDS: POTASSIUM BICARB 20 MEQ (EFFER-K) TABLET PO SCH (05:24)
[2022-12-08] MEDS: MAGNESIUM 1 GM/100 ML IVPB 100 ML IV SCH (05:24)
[2022-12-08] MEDS: KCL 20 MEQ TAB (K-DUR) PO SCH (05:24)
[2022-12-08 05:28] LABS: CALCIUM 8.7 MG/DL (8.5-10.1); CREATININE SERUM 0.58 MG/DL (0.60-1.30); POTASSIUM 4.3 MMOL/L (3.6-5.0)
[2022-12-08] MEDS: methylPREDNISolone 40 MG/ML (Solu-MEDROL) VIAL IVP SCH ×3 (06:09→22:05)
--- NOTE | 2022-12-08 08:09 | Physical Therapy Daily Note ---
PT Daily Note-Current Subjective Patient reports he is feeling better today and agrees to PT. Pain Section J - Health Conditions 1. Rarely or not at all 2. Occasionally 3. Frequently 4. Almost constantly 8. Unable to answer Pain Effect on Sleep: 1 Pain Interference with Therapy: 1 Pain Interference w/Day-to-Day: 1 Mental Status Patient Orientation: Normal For Age Attachments: Oxygen (4L NC) Transfers SCALE: Activities may be completed with or without assistive devices. 6-Szkougvuhv-qhcucyv completes the activity by him/herself with no assistance from a helper. 5-Set-up or Clean-up Assistance-helper sets up or cleans up; patient completes activity. [place] assists only prior to or following the activity. 4-Supervision or Touching Assistance-helper provides verbal cues and/or touching/steadying and/or contact guard assistance as patient completes activity. Assistance may be provided throughout the activity or intermittently. 3-Partial/Moderate Assistance-helper does LESS THAN HALF the effort. [place] lifts, holds or supports trunk or limbs, but provides less than half the effort. 2-Substantial/Maximal Assistance-helper does MORE THAN HALF the effort. [place] lifts or holds trunk or limbs and provides more than half the effort. 2-Xocywjesi-zxpeko does ALL the effort. Patient does none of the effort to complete the activity. Or, the assistance of 2 or more helpers is required for the patient to complete the activity. If activity was not attempted, code reason: 7-Patient Refused. 9-Not Applicable-not attempted and the patient did not perform the activity before the current illness, exacerbation or injury. 10-Not Attempted due to Environmental Limitations-(lack of equipment, weather restraints, etc.). 88-Not Attempted due to Medical Conditions or Safety Concerns. Lying to Sitting/Side of Bed(Q: 6 Sit to Stand (QC): 5 Chair/Isi-hc-Dgieg Xfer(QC): 5 Weight Bearing Right Lower Extremity: Right Full Weight Bearing Left Lower Extremity: Left Full Weight Bearing Gait Training Distance: 200' Walk 10 feet (QC): 5 Walk 50 ft with 2 Turns(QC): 5 Walk 150 ft (QC): 5 Gait Assistive Device: FWW safe and functional with no deviation Assessment O2 placed on 5-6L NC HF per RT. Patient SAO2 92% with activity. Patient up in recliner with needs met. Patient very motivated with current progress. PT to continue to increase activity as tolerated by patient. PT Calendering Supervisor Goals Assisted Goals PT Assisted Goals Time Frame: Dec 15, 2022 Roll Left & Right (QC): 6 Sit to Lying (QC): 6 Lying-Sitting on Side/Bed(QC): 6 Sit to Stand (QC): 6 Chair/Jjt-ux-Kbavr Xfer(QC): 6 Toilet Transfer (QC): 6 Does the Patient Walk: Yes Walk 10 feet (QC): 6 Walk 50ft with 2 Turns (QC): 6 Walk 150 ft (QC): 6 1 Step (curb) (QC): 4 4 Steps (QC): 4 PT Plan Treatment/Plan Treatment Plan: Continue Plan of Care Treatment Plan: Bed Mobility, Education, Functional Activity Lorena, Functional Strength, Group Therapy, Gait, Safety, Therapeutic Exercise, Transfers Treatment Duration: Dec 15, 2022 Frequency: 6 times per week Estimated Hrs Per Day: .25 hour per day Patient and/or Family Agrees t: Yes Time Time In: 745 Time Out: 756 DATE: Dec 08, 2022 Total Billed Treatment Time: 11 Total Billed Treatment 1 visit FA 11 min IDRIS ONEIL PT Dec 08, 2022 08:09
[2022-12-08] MEDS: DULoxetine 30 MG (CYMBALTA) CAP PO SCH (08:17)
[2022-12-08] MEDS: FOLIC ACID 1 MG TAB PO SCH (08:17)
[2022-12-08] MEDS: DIGOXIN 0.25 MG (LANOXIN) TAB PO SCH (08:17)
[2022-12-08] MEDS: SENNOSIDES 8.6 MG (SENOKOT) TAB PO SCH ×2 (08:18→19:32)
[2022-12-08] MEDS: dilTIAZem120 MG (CARDIZEM CD) CAP PO SCH (08:18)
[2022-12-08] MEDS: DOCUSATE SODIUM 100 MG (COLACE) CAP PO SCH ×2 (08:18→19:32)
[2022-12-08] MEDS: GABAPENTIN 400 MG (NEURONTIN) CAP PO SCH ×2 (08:18→19:32)
[2022-12-08] MEDS: IRON SUCROSE 200 MG/10 ML (VENOFER) VIAL IV SCH (08:18)
[2022-12-08] MEDS: PANTOPRAZOLE 40 MG (PROTONIX) VIAL IV SCH (08:18)
--- NOTE | 2022-12-08 08:52 | Progress Note - Hospitalist ---
Subjective HPI/CC On Admission Date Seen by Provider: Dec 08, 2022 Moshe Soto (Willy) is a 62 year old male with PMH HTN, HLD, AFib, PAD, CAD, COPD, who presented with shortness of breath. He has had a cough. He has had chest pain. He also reports abdominal pain. He has been nauseous. He denies vomiting. He denies diarrhea. He denies fevers and chills. He is on 4 L continous oxygen at baseline. Subjective/Events-last exam Pt reports doing well today. Already up and walking and now sitting in chair with breakfast. Complains of pain still in his ribs. Objective Exam Vital Signs Vital Signs Date Time Temp Pulse Resp B/P (MAP) Pulse Ox O2 Delivery O2 Flow Rate FiO2 12/08/22 08:00 110 20 131/90 (105) 95 Nasal Cannula 3.00 12/08/22 07:41 37.2 12/08/22 04:00 45 Capillary Refill : Less Than 3 Seconds General Appearance: No Apparent Distress, Chronically ill, Thin Respiratory: Lungs Clear, Other (on NC) Cardiovascular: Regular Rate, Rhythm, No Murmur Neurologic/Psychiatric: Alert, Oriented x3 Results/Procedures Lab Laboratory Tests 12/08/22 04:20 Patient resulted labs reviewed. Imaging: Reviewed Imaging Report Assessment/Plan Assessment and Plan Assess & Plan/Chief Complaint Severe sepsis Pneumonia Acute on chronic respiratory failure with hypoxia and hypercapnia Chest pain CXR with RML PNA Weaned off Vapotherm, doing well LTACH referral- denied s/p Rocephin and Azithromycin WBC up further today but again no evidence of infection and procal negative- will just monitor closely Steroids- switch to oral MAT protocol TeleICU following IS Troponin negative Iron deficiency anemia Hgb stable 9.7 this AM s/p 1 unit PRBC earlier in admission Iron studies consistent with iron deficiency Occult blood negative Continue Xarelto B12/folate low normal Continue folic acid Venofer completed today Surgery following Obstipation Opoid induced constipation Resolved Continue bowel regimen Is having BMs per patient Colace and Senna scheduled HTN Hold home meds, BP well controlled HLD AFib PAD CAD COPD Continue home meds as able DVT ppx: Xarelto Critical Care Critically Ill Patient BLANE JAIN MD Dec 08, 2022 08:52
[2022-12-08] MEDS ORDERED: predniSONE 20 MG TAB PO NR (12:00)
[2022-12-08 13:01] VITALS: BP 134/73
[2022-12-08 15:30] VITALS: BP 117/75
[2022-12-08] MEDS: ALPRAZolam 0.5 MG (XANAX) TAB PO PRN (15:58)
[2022-12-08] MEDS: RIVAROXABAN 20 MG TABLET (XARELTO) PO SCH (17:29)
[2022-12-08 19:45] VITALS: BP 118/65
[2022-12-08 23:21] VITALS: BP 129/71
[2022-12-09] MEDS: HYDROmorphone 2 MG/ML VIAL (DILAUDID) IV PRN ×4 (00:11→20:47)
[2022-12-09] MEDS: RT-ALBUTEROL/IPRATROPIUM 3 ML (DUONEB) VIAL INH SCH ×6 (02:38→22:24)
[2022-12-09 03:21] VITALS: BP 123/69
[2022-12-09] MEDS: oxyCODONE/APAP 5/325MG (PERCOCET 5) TABLET PO PRN ×4 (04:06→22:24)
[2022-12-09] MEDS: ALPRAZolam 0.5 MG (XANAX) TAB PO PRN ×2 (04:11→22:24)
[2022-12-09 05:53] LABS: BASOPHILS % (AUTO) 0 % (0-10); EOSINOPHILS % (AUTO) 0 % (0-10); HEMATOCRIT 30 % (40-54); HEMOGLOBIN 9.6 g/dL (13.3-17.7); LYMPHOCYTES # (AUTO) 0.3 10^3/uL (1.0-4.0); LYMPHOCYTES % (AUTO) 2 % (12-44); MEAN CORPUSCULAR HEMOGLOBIN 26 pg (25-34); MEAN CORPUSCULAR HGB CONC 32 g/dL (32-36); MEAN CORPUSCULAR VOLUME 82 fL (80-99); MONOCYTES # (AUTO) 0.7 10^3/uL (0.0-1.0); MONOCYTES % (AUTO) 4 % (0-12); NEUTROPHILS # (AUTO) 17.1 10^3/uL (1.8-7.8); NEUTROPHILS % (AUTO) 93 % (42-75); PLATELET COUNT 433 10^3/uL (130-400); WHITE BLOOD COUNT 18.4 10^3/uL (4.3-11.0)
[2022-12-09 06:06] LABS: POTASSIUM 3.9 MMOL/L (3.6-5.0)
[2022-12-09 06:08] LABS: CALCIUM 8.5 MG/DL (8.5-10.1)
[2022-12-09 06:12] LABS: CREATININE SERUM 0.52 MG/DL (0.60-1.30)
[2022-12-09] MEDS: predniSONE 20 MG TAB PO SCH (06:20)
[2022-12-09 07:21] VITALS: BP 121/70
[2022-12-09] MEDS: DOCUSATE SODIUM 100 MG (COLACE) CAP PO SCH ×2 (08:56→20:40)
[2022-12-09] MEDS: FOLIC ACID 1 MG TAB PO SCH (08:56)
[2022-12-09] MEDS: DIGOXIN 0.25 MG (LANOXIN) TAB PO SCH (08:56)
[2022-12-09] MEDS: DULoxetine 30 MG (CYMBALTA) CAP PO SCH (08:56)
[2022-12-09] MEDS: dilTIAZem120 MG (CARDIZEM CD) CAP PO SCH (08:57)
[2022-12-09] MEDS: SENNOSIDES 8.6 MG (SENOKOT) TAB PO SCH ×2 (08:57→20:40)
[2022-12-09] MEDS: GABAPENTIN 400 MG (NEURONTIN) CAP PO SCH ×2 (08:57→20:40)
[2022-12-09] MEDS: PANTOPRAZOLE 40 MG (PROTONIX) VIAL IV SCH (08:57)
--- NOTE | 2022-12-09 09:28 | Physical Therapy Daily Note ---
PT Daily Note-Current Subjective Patient sitting in bed with HOB elevated fully, agreeable to treatment. Rates chest pain at 10/10, nurse notified. Pain Section J - Health Conditions 1. Rarely or not at all 2. Occasionally 3. Frequently 4. Almost constantly 8. Unable to answer Pain Effect on Sleep: 1 Pain Interference with Therapy: 1 Pain Interference w/Day-to-Day: 1 Mental Status Patient Orientation: Person, Place, Time, Situation Attachments: Oxygen Transfers SCALE: Activities may be completed with or without assistive devices. 5-Muxfxpdqqu-fihekhl completes the activity by him/herself with no assistance from a helper. 5-Set-up or Clean-up Assistance-helper sets up or cleans up; patient completes activity. [place] assists only prior to or following the activity. 4-Supervision or Touching Assistance-helper provides verbal cues and/or touching/steadying and/or contact guard assistance as patient completes activity. Assistance may be provided throughout the activity or intermittently. 3-Partial/Moderate Assistance-helper does LESS THAN HALF the effort. [place] lifts, holds or supports trunk or limbs, but provides less than half the effort. 2-Substantial/Maximal Assistance-helper does MORE THAN HALF the effort. [place] lifts or holds trunk or limbs and provides more than half the effort. 7-Rlyodoppc-gywoek does ALL the effort. Patient does none of the effort to complete the activity. Or, the assistance of 2 or more helpers is required for the patient to complete the activity. If activity was not attempted, code reason: 7-Patient Refused. 9-Not Applicable-not attempted and the patient did not perform the activity before the current illness, exacerbation or injury. 10-Not Attempted due to Environmental Limitations-(lack of equipment, weather restraints, etc.). 88-Not Attempted due to Medical Conditions or Safety Concerns. Roll Left & Right (QC): 6 Sit to Lying (QC): 6 Lying to Sitting/Side of Bed(Q: 6 Sit to Stand (QC): 6 Weight Bearing Right Lower Extremity: Right Full Weight Bearing Left Lower Extremity: Left Full Weight Bearing Gait Training Does the Patient Walk?: Yes Distance: 200 feet Walk 10 feet (QC): 4 Walk 50 ft with 2 Turns(QC): 4 Walk 150 ft (QC): 4 Gait Persons Needed: 1 Gait Assistive Device: FWW Assessment Current Status: Fair Progress Patient tolerated treatment fair. Pain medicine administered prior to treatment per nursing verbal report. Patient independent with all observed bed mobility with HOB elevated and with all transfers. Patient requires SBA with gait due to O2 and for verbal cues. Patient ambulates 200 feet with FWW with SBA and verbal cues for safety, progression, conservation of energy. Patient in bed post treatment with all needs met, nursing notified and call light in reach. PT Detention Goals Detention Goals PT Detention Goals Time Frame: Dec 15, 2022 Roll Left & Right (QC): 6 Sit to Lying (QC): 6 Lying-Sitting on Side/Bed(QC): 6 Sit to Stand (QC): 6 Chair/Axm-zr-Pefhh Xfer(QC): 6 Toilet Transfer (QC): 6 Does the Patient Walk: Yes Walk 10 feet (QC): 6 Walk 50ft with 2 Turns (QC): 6 Walk 150 ft (QC): 6 1 Step (curb) (QC): 4 4 Steps (QC): 4 PT Plan Treatment/Plan Treatment Plan: Continue Plan of Care Treatment Plan: Bed Mobility, Education, Functional Activity Lorena, Functional Strength, Group Therapy, Gait, Safety, Therapeutic Exercise, Transfers Treatment Duration: Dec 15, 2022 Frequency: 6 times per week Estimated Hrs Per Day: .25 hour per day Patient and/or Family Agrees t: Yes Safety Risks/Education Patient Education: Gait Training, Transfer Techniques Teaching Recipient: Patient Teaching Methods: Demonstration, Discussion Response to Teaching: Verbalize Understanding, Return Demonstration Time Time In: 905 Time Out: 920 DATE: Dec 09, 2022 Total Billed Treatment Time: 15 Total Billed Treatment Visit, JAY Chowdhury PT Dec 09, 2022 09:28
--- NOTE | 2022-12-09 10:39 | Progress Note - Hospitalist ---
Subjective HPI/CC On Admission Date Seen by Provider: Dec 09, 2022 Moshe Soto (Willy) is a 62 year old male with PMH HTN, HLD, AFib, PAD, CAD, COPD, who presented with shortness of breath. He has had a cough. He has had chest pain. He also reports abdominal pain. He has been nauseous. He denies vomiting. He denies diarrhea. He denies fevers and chills. He is on 4 L continous oxygen at baseline. Subjective/Events-last exam Pt reports doing ok. Persistent pain. Discussed plan to work on getting off IV pain meds and try to control pain with just orals. Will add lidocaine patch as well. Patient agrees to plan. Objective Exam Vital Signs Vital Signs Date Time Temp Pulse Resp B/P (MAP) Pulse Ox O2 Delivery O2 Flow Rate FiO2 12/09/22 10:10 91 High Flow N/C 3.00 12/09/22 07:21 37.1 78 18 121/70 (87) 12/08/22 13:01 32 Capillary Refill : Less Than 3 Seconds General Appearance: No Apparent Distress, Chronically ill, Thin Respiratory: Lungs Clear, No Respiratory Distress Cardiovascular: Regular Rate, Rhythm Neurologic/Psychiatric: Alert, Oriented x3 Results/Procedures Lab Laboratory Tests 12/09/22 05:05 12/09/22 05:08 Patient resulted labs reviewed. Imaging: Reviewed Imaging Report Assessment/Plan Assessment and Plan Assess & Plan/Chief Complaint Severe sepsis Pneumonia Acute on chronic respiratory failure with hypoxia and hypercapnia Chest pain CXR with RML PNA Stable on 3lpm LTACH referral- denied s/p Rocephin and Azithromycin WBC down, continue to monitor off abx Oral steroids MAT protocol TeleICU following IS Troponin negative Iron deficiency anemia Hgb stable 9.6 this AM s/p 1 unit PRBC earlier in admission Iron studies consistent with iron deficiency Occult blood negative Continue Xarelto B12/folate low normal Continue folic acid Venofer completed Surgery following Obstipation Opoid induced constipation Resolved Continue bowel regimen Colace and Senna scheduled HTN Hold home meds, BP well controlled HLD AFib PAD CAD COPD Continue home meds as able DVT ppx: Xarelto Critical Care Critically Ill Patient BLANE JAIN MD Dec 09, 2022 10:39
[2022-12-09 11:30] VITALS: BP_SYST 134; BP_SYST 173; BP_DIAS 70; BP_DIAS 98
[2022-12-09] MEDS: LIDOCAINE 4% (SALONPAS) PATCH TOP SCH (11:54)
[2022-12-09 15:30] VITALS: BP 123/70
[2022-12-09] MEDS: RIVAROXABAN 20 MG TABLET (XARELTO) PO SCH (16:00)
[2022-12-09 19:07] VITALS: BP 132/74
[2022-12-09] MEDS: ACETAMINOPHEN 325 MG TABLET PO PRN (19:25)
[2022-12-09] MEDS: LIDOCAINE PATCH REMOVAL TP SCH (20:41)
[2022-12-09] MEDS: guaiFENesin/DM (ROBITUSSIN DM) 10 ML UDC PO PRN (22:24)
[2022-12-09] MEDS: MELATONIN 3 MG TABLET PO PRN (22:39)
[2022-12-09 23:36] VITALS: BP 139/71
[2022-12-10] MEDS: RT-ALBUTEROL/IPRATROPIUM 3 ML (DUONEB) VIAL INH SCH ×6 (02:20→22:43)
[2022-12-10] MEDS: oxyCODONE/APAP 5/325MG (PERCOCET 5) TABLET PO PRN ×5 (04:00→21:37)
[2022-12-10 04:08] VITALS: BP 129/70
[2022-12-10 05:42] LABS: BASOPHILS # (AUTO) 0.1 10^3/uL (0.0-0.1); BASOPHILS % (AUTO) 0 % (0-10); EOSINOPHILS % (AUTO) 0 % (0-10); HEMATOCRIT 35 % (40-54); LYMPHOCYTES # (AUTO) 1.4 10^3/uL (1.0-4.0); LYMPHOCYTES % (AUTO) 6 % (12-44); MEAN CORPUSCULAR HEMOGLOBIN 26 pg (25-34); MEAN CORPUSCULAR HGB CONC 31 g/dL (32-36); MEAN CORPUSCULAR VOLUME 84 fL (80-99); MEAN PLATELET VOLUME 9.8 fL (9.0-12.2); MONOCYTES # (AUTO) 1.3 10^3/uL (0.0-1.0); MONOCYTES % (AUTO) 6 % (0-12); NEUTROPHILS % (AUTO) 87 % (42-75); PLATELET COUNT 350 10^3/uL (130-400); WHITE BLOOD COUNT 22.9 10^3/uL (4.3-11.0)
[2022-12-10 05:57] LABS: POTASSIUM 4.3 MMOL/L (3.6-5.0)
[2022-12-10 05:58] LABS: CALCIUM 8.4 MG/DL (8.5-10.1)
[2022-12-10 06:03] LABS: CREATININE SERUM 0.49 MG/DL (0.60-1.30)
[2022-12-10 07:21] VITALS: BP 110/72
[2022-12-10] MEDS: predniSONE 20 MG TAB PO SCH (08:29)
[2022-12-10] MEDS: DIGOXIN 0.25 MG (LANOXIN) TAB PO SCH (08:29)
[2022-12-10] MEDS: DOCUSATE SODIUM 100 MG (COLACE) CAP PO SCH ×2 (08:29→21:36)
[2022-12-10] MEDS: LIDOCAINE 4% (SALONPAS) PATCH TOP SCH (08:29)
[2022-12-10] MEDS: DULoxetine 30 MG (CYMBALTA) CAP PO SCH (08:29)
[2022-12-10] MEDS: FOLIC ACID 1 MG TAB PO SCH (08:30)
[2022-12-10] MEDS: SENNOSIDES 8.6 MG (SENOKOT) TAB PO SCH ×2 (08:30→21:36)
[2022-12-10] MEDS: dilTIAZem120 MG (CARDIZEM CD) CAP PO SCH (08:30)
[2022-12-10] MEDS: PANTOPRAZOLE 40 MG (PROTONIX) VIAL IV SCH (08:30)
[2022-12-10] MEDS: GABAPENTIN 400 MG (NEURONTIN) CAP PO SCH ×2 (08:30→21:37)
--- NOTE | 2022-12-10 10:04 | Progress Note - Hospitalist ---
Subjective HPI/CC On Admission Date Seen by Provider: Dec 10, 2022 Moshe Soto (Willy) is a 62 year old male with PMH HTN, HLD, AFib, PAD, CAD, COPD, who presented with shortness of breath. He has had a cough. He has had chest pain. He also reports abdominal pain. He has been nauseous. He denies vomiting. He denies diarrhea. He denies fevers and chills. He is on 4 L continous oxygen at baseline. Subjective/Events-last exam Pt reports doing well. No new complaints. Still has rib pain but no IV pain medicine since last night. States he would like to take a nap. Reviewed events from this morning- seems as if HFNC was not working appropriately as issue resolved with new set up by RT. Objective Exam Vital Signs Vital Signs Date Time Temp Pulse Resp B/P (MAP) Pulse Ox O2 Delivery O2 Flow Rate FiO2 12/10/22 07:21 36.8 95 18 110/72 (85) 93 High Flow N/C 5.00 12/08/22 13:01 32 Capillary Refill : Less Than 3 Seconds General Appearance: No Apparent Distress, Chronically ill, Thin Respiratory: Lungs Clear, No Respiratory Distress Cardiovascular: Regular Rate, Rhythm, No Murmur Neurologic/Psychiatric: Alert, Oriented x3 Results/Procedures Lab Laboratory Tests 12/10/22 05:08 Patient resulted labs reviewed. Imaging: Reviewed Imaging Report Assessment/Plan Assessment and Plan Assess & Plan/Chief Complaint Severe sepsis Pneumonia Acute on chronic respiratory failure with hypoxia and hypercapnia Chest pain CXR with RML PNA StWears 4 lpm at home- currently on 5 LTACH referral- denied s/p Rocephin and Azithromycin WBC up slightly today but no indication of recurring infection- continue to monitor off Oral steroids MAT protocol TeleICU following IS Troponin negative DC IV Dilaudid Iron deficiency anemia Hgb up to 11.0 this AM s/p 1 unit PRBC earlier in admission Continue Xarelto B12/folate low normal Continue folic acid Venofer completed Surgery signed off Obstipation Opoid induced constipation Resolved Continue bowel regimen HTN Hold home meds, BP well controlled HLD AFib PAD CAD COPD Continue home meds as able DVT ppx: Xarelto Critical Care Critically Ill Patient BLANE JAIN MD Dec 10, 2022 10:04 am
[2022-12-10] MEDS: ALPRAZolam 0.5 MG (XANAX) TAB PO PRN ×2 (10:37→21:36)
[2022-12-10 11:11] VITALS: BP 111/69
[2022-12-10 15:24] VITALS: BP 99/58
[2022-12-10] MEDS: RIVAROXABAN 20 MG TABLET (XARELTO) PO SCH (17:10)
[2022-12-10 19:11] VITALS: BP_SYST 136; BP_SYST 89; BP_DIAS 53; BP_DIAS 55
[2022-12-10] MEDS: LIDOCAINE PATCH REMOVAL TP SCH (21:37)
[2022-12-10 23:41] VITALS: BP 127/64
[2022-12-11] MEDS: RT-ALBUTEROL/IPRATROPIUM 3 ML (DUONEB) VIAL INH SCH ×3 (02:44→10:47)
[2022-12-11 04:00] VITALS: BP 100/58
[2022-12-11] MEDS: predniSONE 20 MG TAB PO SCH (05:12)
[2022-12-11] MEDS: oxyCODONE/APAP 5/325MG (PERCOCET 5) TABLET PO PRN ×2 (05:13→09:40)
[2022-12-11 07:27] VITALS: BP 96/59
[2022-12-11 07:34] VITALS: BP 96/59
[2022-12-11 07:39] VITALS: BP 104/89
[2022-12-11] MEDS: DULoxetine 30 MG (CYMBALTA) CAP PO SCH (08:53)
[2022-12-11] MEDS: DIGOXIN 0.25 MG (LANOXIN) TAB PO SCH (08:53)
[2022-12-11] MEDS: PANTOPRAZOLE 40 MG (PROTONIX) VIAL IV SCH (08:53)
[2022-12-11] MEDS: SENNOSIDES 8.6 MG (SENOKOT) TAB PO SCH (08:54)
[2022-12-11] MEDS: FOLIC ACID 1 MG TAB PO SCH (08:54)
[2022-12-11] MEDS: GABAPENTIN 400 MG (NEURONTIN) CAP PO SCH (08:54)
[2022-12-11] MEDS: dilTIAZem120 MG (CARDIZEM CD) CAP PO SCH (08:54)
[2022-12-11] MEDS: DOCUSATE SODIUM 100 MG (COLACE) CAP PO SCH (08:54)
[2022-12-11] MEDS: LIDOCAINE 4% (SALONPAS) PATCH TOP SCH (08:55)
[2022-12-11] MEDS: ALPRAZolam 0.5 MG (XANAX) TAB PO PRN (09:39)
[2022-12-11 11:13] VITALS: BP 100/57
[2022-12-11] MEDS ORDERED: LIDO700A45 TP (11:32)
[2022-12-11] MEDS ORDERED: DULO30CA3 PO (11:32)
[2022-12-11] MEDS ORDERED: RIVA20TA PO (11:32)
[2022-12-11] MEDS ORDERED: GABA-490 PO (11:32)
[2022-12-11] MEDS ORDERED: PRED10TA22 PO (11:32)
[2022-12-11] MEDS ORDERED: OXYC1TAB87 PO ×2 (11:32→17:07)
[2022-12-11] MEDS ORDERED: ATOR40TA70 PO (11:32)
[2022-12-11] MEDS ORDERED: DIGO125T3 PO (11:32)
[2022-12-11] MEDS ORDERED: ALPR0.5T7 PO (11:32)
[2022-12-11] MEDS ORDERED: FURO20TA4 PO (11:32)
[2022-12-11] MEDS ORDERED: PANT40TA52 PO (11:32)
[2022-12-11] MEDS ORDERED: DILT-27 PO (11:32)
--- NOTE | 2022-12-11 11:36 | D/C HH Face to Face Order ---
D/C Face to Face Orders Reconcile Patient Problems Problems Reviewed?: Yes Instructions for Patient Via Ashley Geniuzz, Patient Instructions/FollowUp: See instructions Physician to follow Patient: Gordon Discharge Diet for Home: Cardiac Diet Patient Data-Allergies,Ht & Wt Patient Allergies: Coded Allergies: No Known Drug Allergies (Verified , 07/11/09) Home Health Need/Face to Face Date of Face to Face: Dec 11, 2022 Clinical Findings: Generalized weakness and fatigue, Instability, Muscle weakness I have seen Pt [id number]: Yes Discharged To: Home Diagnosis/Conditions: COPD Chronic respiratory failure with hypoxia HTN HLD CAD PAD Anemia Problems/Diagnosis/Condition: (1) COPD (chronic obstructive pulmonary disease) (2) Chronic respiratory failure with hypoxia (3) HTN (hypertension) (4) CAD (coronary artery disease) (5) PVD (peripheral vascular disease) (6) Paroxysmal atrial fibrillation (7) Iron deficiency anemia Patient is Homebound due to: Brando fall risk due to instabilty, Muscle weakness Homebound Status Due to the above stated illness, injury or surgical procedure (medical condition or diagnosis) and associated clinical findings, the patient is homebound because of his/her inability to leave home except with aid of a supportive device and/or person AND leaving the home requires a considerable and taxing effort or is medically contraindicated. Pt req the following assistanc: Aid of another person Home Health Nursing Orders Home Health Services Order: Nursing Services, Plug Saw Operator-Evaluate & Treat, Physical Therapy-Evaluate & Treat Home Health Infusion Therapy Line Start Date: Nov 29, 2022 Therapy Orders Therapy Orders: OT (must have SN or PT order), Physical Therapy Therapy Specific Orders: Eval assistive deivces, Teach enviro modifications/safety, Gait training, Increase strength/endurance Certify Stmt I certify that this patient is under my care and that I, a nurse practitioner or a physician; a assistant farm operations manager working with me, had a face to face encounter that - meets the physician face to face encounter requirements with this patient as dated. CLAU DUONG MD Dec 11, 2022 11:36
[2022-12-11 13:07] VITALS: BP 100/57
--- NOTE | 2022-12-11 17:27 | Discharge Summary ---
Discharge Summary Hospital Course Problems/Dx: (1) Acute on chronic respiratory failure with hypoxia and hypercapnia Status: Acute (2) PNA (pneumonia) Status: Acute Qualifiers: (3) Severe sepsis Status: Acute (4) Sepsis due to pneumonia Status: Acute (5) HTN (hypertension) Status: Chronic (6) COPD (chronic obstructive pulmonary disease) Status: Chronic (7) PVD (peripheral vascular disease) Status: Chronic (8) CAD (coronary artery disease) Status: Chronic (9) Paroxysmal atrial fibrillation Status: Chronic (10) Iron deficiency anemia Status: Acute (11) Chronic respiratory failure with hypoxia Status: Chronic (12) Constipation Status: Acute (13) Fecal impaction in rectum Status: Acute Hospital Course Date of Admission: Nov 29, 2022 at 17:20 Admission Diagnosis : Severe sepsis due to pneumonia Family Physician/Provider: Brisa Oconnor Physician Date of Discharge: 12/11/22 Discharge Diagnosis: Severe sepsis due to pneumonia, acute on chronic respiratory failure with hypoxia and hypercapnia, COPD with acute exacerbation Hospital Course: Moshe Soto (Willy) is a 62 year old male with PMH HTN, HLD, CAD, PAD, AFib, COPD, chronic respiratory failure with hypoxia, who was admitted with severe sepsis due to pneumonia. He was started on IV antibiotics. He was requiring high levels of supplemental oxygen and was transitioned to Vapotherm and BiPAP. He required transfer to the ICU. He was also treated for COPD exacerbation with steroids and breathing treatments. He also had obstipation which resolved with enemas. He required prolonged oxygen weaning. He was able to be weaned to his previous home requirement. He was given a steroid taper on discharge. He was set up with home health. He said he was supposed to establish with Dr. Leyva. He should follow up in about a week for a hospital follow up. He was discharged home in improved, stable condition. Labs and Pending Lab Test: Microbiology 11/29/22 Blood Culture - Final, Complete No growth Home Meds Active Percocet 5-325 mg Tablet (Oxycodone HCl/Acetaminophen) 1 Each Tablet 1 Tab PO Q4H PRN 7 Days Lidocaine 5% Patch (Lidocaine) 5 % Adh..patch 1 Each TP Q12H PRN MDD 2 30 Days 2 patches max for 12 hours, then 12 hours patch-free period. Prednisone 10 Mg Tab.ds.pk 10 Mg PO DAILY Take 6 tabs(60mg)daily,decrease by 1 tab(10mg)every other day. Pantoprazole Sodium 40 Mg Tablet.dr 40 Mg PO DAILY 30 Days Cymbalta (Duloxetine HCl) 30 Mg Capsule.dr 60 Mg PO DAILY 30 Days Gabapentin 400 Mg Capsule 400 Mg PO BID 30 Days Alprazolam 0.5 Mg Tablet 0.5 Mg PO TID PRN 7 Days Diltiazem 24Hr ER (Diltiazem HCl) 120 Mg Cap.er.24h 120 Mg PO DAILY 30 Days Digoxin 125 Mcg (0.125 Mg) Tablet 250 Mcg PO DAILY 30 Days TAKES 2 (125MCG) DAILY Furosemide 20 Mg Tablet 20 Mg PO DAILY 30 Days Atorvastatin Calcium 40 Mg Tablet 40 Mg PO DAILY 30 Days Xarelto (Rivaroxaban) 20 Mg Tablet 20 Mg PO DAILY 90 Days Reported Docusate Sodium 100 Mg Capsule 100 Mg PO BID PRN Miralax (Polyethylene Glycol 3350) 17 Gram Powd.pack 17 Gm PO DAILY PRN Iprat-Albut 0.5-3(2.5) mg/3 ml (Ipratropium/Albuterol Sulfate) 0.5 Mg-3 Mg (2.5 Mg Base)/3 Ml Ampul.neb 3 Ml IH BID PRN Ventolin Hfa (Albuterol Sulfate) 18 Gm Hfa.aer.ad 2 Puff INH Q6H PRN Baclofen 10 Mg Tablet 10 Mg PO BID PRN Assessment/Pt Instructions See instructions Discharge Planning: >30 minutes discharge planning Discharge Instructions Discharge Diet: Low Sodium Diet Activity as Tolerated: Yes Discharge Physical Examination Vital Signs Vital Signs Date Time Temp Pulse Resp B/P (MAP) Pulse Ox O2 Delivery O2 Flow Rate FiO2 12/11/22 13:07 36.4 96 18 100/57 95 Nasal Cannula 4.00 12/08/22 13:01 32 General Appearance: No Apparent Distress, Chronically ill Respiratory: Lungs Clear, No Respiratory Distress Cardiovascular: Regular Rate, Rhythm, No Murmur Gastrointestinal: Normal Bowel Sounds, Soft Extremity: Normal Inspection, No Pedal Edema Skin: Normal Color, Warm/Dry Neurologic/Psychiatric: Alert, Normal Mood/Affect Allergies: Coded Allergies: No Known Drug Allergies (Verified , 07/11/09) Copy Copies To 1: LUCA LEYVA DO Discharge Summary Date of Admission Nov 29, 2022 at 17:20 Date of Discharge Dec 11, 2022 at 13:07 Discharge Date: Dec 11, 2022 Discharge Time: 13:07 Admission Diagnosis Severe sepsis due to pneumonia Consults/Procedures Consulations Surgery, TeleICU Discharge Diagnosis Severe sepsis, resolved Pneumonia, resolved Obstipation, resolved Acute on chronic respiratory failure with hypoxia and hypercapnia, resolved COPD with acute exacerbation, resolved Chest pain, resolved HTN HLD COPD Chronic respiratory failure with hypoxia AFib PAD CAD Iron deficiency anemia (1) Acute on chronic respiratory failure with hypoxia and hypercapnia Status: Acute (2) PNA (pneumonia) Status: Acute Qualifiers: (3) Severe sepsis Status: Acute (4) Sepsis due to pneumonia Status: Acute (5) HTN (hypertension) Status: Chronic (6) COPD (chronic obstructive pulmonary disease) Status: Chronic (7) PVD (peripheral vascular disease) Status: Chronic (8) CAD (coronary artery disease) Status: Chronic (9) Paroxysmal atrial fibrillation Status: Chronic (10) Iron deficiency anemia Status: Acute (11) Chronic respiratory failure with hypoxia Status: Chronic (12) Constipation Status: Acute (13) Fecal impaction in rectum Status: Acute CLAU DUONG MD Dec 11, 2022 17:26
[2022-12-12] MEDS ORDERED: PANTOPRAZOLE 40 MG (PROTONIX) TAB PO SCH (09:00)
== END 2022-12-11 13:07 | disposition home health service (06) | DRG 871 ==
LOC: EDUNIT# 12:57 → ER 12:58 → 4TH 17:20 → ICU 12-01 11:15 → 4TH 12-08 13:08
PROVIDERS: ADMIT Internal Medicine; ATTEND Internal Medicine
PROC: 5A09357 Assistance with Respiratory Ventilation, Less than 24 Consecutive Hours, Continuous Positive Airway Pressure (ICD-10-PCS; principal; 2022-12-03)
PROC: 5A0935A Assistance with Respiratory Ventilation, Less than 24 Consecutive Hours, High Flow/Velocity Cannula (ICD-10-PCS; 2022-12-08)
DX: A41.9 Sepsis, unspecified organism (principal); J18.9 Pneumonia, unspecified organism; J96.21 Acute and chronic respiratory failure with hypoxia; J96.22 Acute and chronic respiratory failure with hypercapnia; J44.1 Chronic obstructive pulmonary disease with (acute) exacerbation; J44.0 Chronic obstructive pulmonary disease with (acute) lower respiratory infection; R65.20 Severe sepsis without septic shock; I10 Essential (primary) hypertension; I73.9 Peripheral vascular disease, unspecified; I25.10 Atherosclerotic heart disease of native coronary artery without angina pectoris; I48.0 Paroxysmal atrial fibrillation; D50.9 Iron deficiency anemia, unspecified; E78.5 Hyperlipidemia, unspecified; K59.03 Drug induced constipation; T40.2X5A Adverse effect of other opioids, initial encounter; Z87.891 Personal history of nicotine dependence; Z86.718 Personal history of other venous thrombosis and embolism; G89.29 Other chronic pain; M54.9 Dorsalgia, unspecified; I95.9 Hypotension, unspecified
CPT/HCPCS: 36415; 71045; 71260; 74018; 74177; 80048; 80053; 81000; 82274; 82607; 82728; 82746; 82805; 82947; 83540; 83550; 83605; 83690; 83735; 83880; 84145; 84484; 85007; 85014; 85018; 85025; 85027; 85379; 85610; 85730; 86850; 86900; 86901; 86920; 87040; 93005; 93041; 94010; 94640; 94660; 94664; 94760; 96361; 96365; 96367; 96375

== ENCOUNTER 2023-01-11 15:29 | Emergency (ER) | payer MEDICARE ==
[~2023-01-11 15:29] MED LIST changes: +DILT-27 PO; +DOCU100C37 PO; +DULO30CA3 PO; +LIDO700A45 TP; +OXYC1TAB87 PO; +POLY17PO6 PO
--- NOTE | 2023-01-11 15:51 | ED General ---
General Chief Complaint: Respiratory Problems Stated Complaint: SOB Nursing Triage Note: PT TO [facility] WITH C/O SOB. REC'D CALL WHEN PT ARRIVED FROM [facility] THAT PT IS ON [facility], AND THEY WILL BE HERE TO EVALUATE THE SITUATION Source of Information: Patient, EMS Exam Limitations: Physical Impairments History of Present Illness Date Seen by Provider: Jan 11, 2023 Time Seen by Provider: 15:40 Initial Comments Patient is a 62-year-old male chronically oxygen dependent on hospice care who presents to the emergency room from home. There is some confusion as to why the patient came to the emergency department as he is on hospice. EMS reports that his insurance company called 911. Patient is very weak and unable to really carry on a conversation due to shortness of breath. He does complain of chest pain. His hospice nurse is on her way to provide further information. He is slightly hypotensive with a systolic blood pressure of 89. On a nonrebreather currently. Heart rate is regular. Timing/Duration: Other (unknown) Severity: Severe Associated Systoms: Chest Pain, Shortness of Air Allergies and Home Medications Allergies Coded Allergies: No Known Drug Allergies (Verified , 07/11/09) Patient Home Medication List Home Medication List Reviewed: Yes Albuterol Sulfate (Ventolin Hfa) 18 Gm Hfa.aer.ad, 2 PUFF INH Q6H PRN for SHORTNESS OF BREATH, (Reported) Entered as Reported by: PRISCILLA DELGADO on 11/04/211556 Alprazolam (Alprazolam) 0.5 Mg Tablet, 0.5 MG PO TID PRN for ANXIETY Prescribed by: CLAU DUONG on 12/11/22 113 Atorvastatin Calcium (Atorvastatin Calcium) 40 Mg Tablet, 40 MG PO DAILY Prescribed by: CLAU DUONG on 12/11/22 1132 Baclofen (Baclofen) 10 Mg Tablet, 10 MG PO BID PRN for MUSCLE SPASMS, (Reported) Entered as Reported by: PRISCILLA DELGADO on 11/04/211556 Digoxin (Digoxin) 125 Mcg (0.125 Mg) Tablet, 250 MCG PO DAILY Prescribed by: CLAU DUONG on 12/11/22 1132 Diltiazem HCl (Diltiazem 24Hr ER) 120 Mg Cap.er.24h, 120 MG PO DAILY Prescribed by: CLAU DUONG on 12/11/22 1132 Docusate Sodium (Docusate Sodium) 100 Mg Capsule, 100 MG PO BID PRN for CONSTIPATION-1ST LINE, (Reported) Entered as Reported by: PRISCILLA DELGADO on 11/30/22 1146 Duloxetine HCl (Cymbalta) 30 Mg Capsule.dr, 60 MG PO DAILY Prescribed by: CLAU DUONG on 12/11/22 1132 Furosemide (Furosemide) 20 Mg Tablet, 20 MG PO DAILY Prescribed by: CLAU DUONG on 12/11/22 1132 Gabapentin (Gabapentin) 400 Mg Capsule, 400 MG PO BID Prescribed by: CLAU DUONG on 12/11/22 1132 Ipratropium/Albuterol Sulfate (Iprat-Albut 0.5-3(2.5) mg/3 ml) 0.5 Mg-3 Mg (2.5 Mg Base)/3 Ml Ampul.neb, 3 ML IH BID PRN for SHORTNESS OF BREATH, (Reported) Entered as Reported by: PRISCILLA DELGADO on 03/06/22 1145 Lidocaine (Lidocaine 5% Patch) 5 % Adh..patch, 1 EACH TP Q12H PRN for Neuropathic pain Prescribed by: CLAU DUONG on 12/11/22 1132 Oxycodone HCl/Acetaminophen (Percocet 5-325 mg Tablet) 1 Each Tablet, 1 TAB PO Q 4H PRN for PAIN-SEE DOSE INSTRUCTIONS Prescribed by: CLAU DUONG on 12/11/22 1708 Pantoprazole Sodium (Pantoprazole Sodium) 40 Mg Tablet.dr, 40 MG PO DAILY Prescribed by: CLAU DUONG on 12/11/22 1132 Polyethylene Glycol 3350 (Miralax) 17 Gram Powd.pack, 17 GM PO DAILY PRN for CONSTIPATION-2ND LINE, (Reported) Entered as Reported by: PRISCILLA DELGADO on 11/30/22 1146 Prednisone (Prednisone) 10 Mg Tab.ds.pk, 10 MG PO DAILY Prescribed by: CLAU DUONG on 12/11/22 1132 Rivaroxaban (Xarelto) 20 Mg Tablet, 20 MG PO DAILY Prescribed by: CLAU DUONG on 12/11/22 1132 Review of Systems Review of Systems Constitutional: see HPI Cardiovascular: chest pain Psychiatric/Neurological: Weakness Past [id number] Hx Immunizations Up To Date Tetanus Booster (TDap): Less than 5yrs PED Vaccines UTD: No First/Initial COVID19 Vaccinat: RECEIVED, UNK WHEN Second COVID19 Vaccination Hemanth: RECEIVED, UNK WHEN Third COVID19 Vaccination Date: RECEIVED, UNK WHEN Seasonal Allergies Seasonal Allergies: Yes (hayfever) Past Medical History Surgery/Hospitalization HX: AFIB, HTN, COPD, ANEMIA, CAD, CHRONIC RESPIRATORY FAILURE WITH HYPOXIA PNEUMONIA ortho heart cath stents, LUNG MASS Surgeries: Yes Abdominal, Orthopedic Respiratory: Yes COPD Currently Using CPAP: No Currently Using BIPAP: No Cardiac: Yes Atrial Fibrillation, Hypertension Neurological: Yes Neuropathy Sexually Transmitted Disease: No HIV/AIDS: No Genitourinary: Yes Renal Failure Gastrointestinal: Yes Gastroesophageal Reflux, Chronic Constipation Musculoskeletal: Yes Chronic Back Pain Endocrine: No HEENT: No Tinnitis Loss of Vision: Denies Hearing Impairment: Hard of Hearing Cancer: No Psychosocial: No Integumentary: No Blood Disorders: No Adverse Reaction/Blood Tranf: No Family Medical History Alcoholism 19 FATHER 19 MOTHER Arthritis 19 FATHER 19 MOTHER Heart Disease CARDIAC CATH 11/09/[address] BELLAMY: CONCLUSION: 1. Mild coronary artery disease nonobstructive disease 2. Normal left ventricular size and systolic function estimate ejection fraction 60% 3. Normal abdominal aorta and bifurcation with runoff down to the trifurcation with slow flow in the SFA bilaterally, probably small vessel disease distally DISCUSSION AND RECOMMENDATION: Maximizing medical therapy, no intervention is recommended Physical Exam Vital Signs Vital Signs - First Documented 01/11/23 01/11/23 15:30 16:35 Temp 36.4 Pulse 89 Resp 21 B/P (MAP) 89/52 (64) Pulse Ox 95 O2 Delivery OxyMask O2 Flow Rate 8.00 Capillary Refill : Height, Weight, BMI Height: '" Weight: lbs. oz. kg; 17.73 BMI Method: General Appearance: Chronically ill, Thin Eyes: Bilateral Eye Normal Inspection HEENT: Other (dry oral mucosa) Respiratory: Other (dimished throughout; tender to chest wall) Cardiovascular: Regular Rate, Rhythm Extremity: Normal Inspection, No Pedal Edema Neurologic/Psychiatric: Depressed Affect (withdrawn; whicpered voice; appears ill/frail) Skin: Pallor Procedures/Interventions Date of ETT Placement: Apr 19, 2022 Time of ETT Placement: 1400 Progress/Results/Core Measures Suspected Sepsis SIRS Temperature: Pulse: 89 Respiratory Rate: 21 Blood Pressure 89 /52 Mean: 64 Results/Orders Vital Signs/I&O 01/11/23 01/11/23 01/11/23 15:30 15:49 16:35 Temp 36.4 36.4 Pulse 89 89 Resp 21 21 B/P (MAP) 89/52 (64) 89/52 Pulse Ox 95 95 O2 Delivery OxyMask Nasal Cannula OxyMask O2 Flow Rate 8.00 Capillary Refill : Blood Pressure Mean: 64 Progress Note : Time: 16:18 Progress Note Mr. Soto's care discussed with his hospice nurse at the bedside. Hospice nurse is very confused as to why the patient ended up in the emergency department as she states he looks no different currently than he did when she evaluated him at 1145 this morning. He has chronic complaints of pain. She has recently moved him into the final stage of end-of-life care. His vitals are stable for his end-of-life presentation. He is alert and will respond to voice. Complains of his chronic chest pain. Secondary to his hospice placement and patient and brother apparently not interested in revoking hospice no laboratory studies or imaging were obtained. Patient has all of his medications and needs met through his hospice company at his home. He will be discharged back into hospice care. Departure Impression Primary Impression: End of life care Disposition: HOME, SELF-CARE Condition: Stable/Unchanged Departure-Patient Inst. Decision time for Depature: 16:17 Referrals: NO,LOCAL PHYSICIAN (PCP/Family) Primary Care Physician Patient Instructions: Palliative Care Add. Discharge Instructions: Resume hospice care. MYA MORSE MD Jan 11, 2023 15:51
[2023-01-11 16:35] VITALS: BP 89/52
== END 2023-01-11 17:05 | disposition home or self-care (01) ==
LOC: EDUNIT# 15:29 → ER 15:30
DX: Z51.5 Encounter for palliative care (principal); G89.29 Other chronic pain; R07.9 Chest pain, unspecified; Z99.81 Dependence on supplemental oxygen
CPT/HCPCS: 99283